=== PATIENT | male | born 1955 | race Caucasian/White ===

== ENCOUNTER 2019-09-23 01:10 | Outpatient (CLI) | payer OTHER, SELFPAY ==
--- NOTE | 2019-09-23 14:15 | DI.CT_ITS ---
EXAM: CT SINUS WO CLINICAL HISTORY: NASAL POLYPS J33.9, DEVIATED NASAL SEPTUM J34.2 TECHNIQUE: CT examination of the paranasal sinuses was performed according to the usual protocol wit hout contrast administration. COMPARISON: No exams were available for comparison FINDINGS: Visualized portions of the brain are unremarkable. The orbital briceno and orbital contents appear int act. Mastoid air cells are clear and temporal bone structures appear intact. Right maxillary antrum, ethmoid air cells, frontal sinus and sphenoid sinus are clear. There is nasa l septal deviation to the right. There is a space-occupying mass-like lesion occupying portions of t he left maxillary antrum, nasal cavity, ethmoid sinus, and sphenoid sinus on the left and extending s uperiorly into the left frontal sinus. There is osseous density material within this mass. Findings as described raise the possibility of an ossifying fibroma. I would note that there is no significa nt sinus expansion of the maxillary, frontal or sphenoid sinus on the left, but there is nasal septal deviation and probable expansion of ethmoid sinuses. No gross bony destruction identified. 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 Differential diagnosis wou ld include malignant tumor. Fungal infection less likely but possible. Please correlate clinically.
== END 2019-09-23 01:30 ==
PROVIDERS: PCP Nurse Practitioner Family; Visit Provider Otolaryngology Otolaryngology/Facial Plastic Surgery
DX: J33.9 Nasal polyp, unspecified (principal); J34.2 Deviated nasal septum; D16.4 Benign neoplasm of bones of skull and face
CPT/HCPCS: 70486

== ENCOUNTER 2020-02-16 00:32 | Outpatient (CLI) | payer OTHER, SELFPAY ==
[2020-02-16 15:29] LABS: CREATININE 0.95 mg/dL (0.70-1.30)
[2020-02-16] MEDS: Normal Saline Flush 10 ML SYR IVP (15:53)
[2020-02-16] MEDS: Gadoterate meglumine 20 ML VIAL IVP (15:54)
--- NOTE | 2020-02-16 16:16 | DI.MRI_ITS ---
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 TECHNIQUE: Multiplanar multisequence MRI was performed. COMPARISON: CT SINUS WO from 09/23/2019 FINDINGS: MR examination of the sinofacial region was performed using multi planer imaging including pre and po st contrast T1 fat sat multiplanar imaging. CT of 09/23/2019 showed a mass containing ossific material involving left frontal, ethmoid, maxillary and sphenoid sinuses and nasal cavity. 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 On today's examination, there has been resolution of involvement of left maxillary and left frontal s inuses. Left maxillary antrectomy noted. The mass has a cerebral form pattern consistent with the reported diagnosis of inverted papilloma. Gr oss measurements on today's examination are about 48 x 24 millimeters in axial projection, and 33 x 2 7 millimeters in coronal projection. No gross invasion of surrounding structures. Potential bony involvement is more accurately evaluated by CT. Mild midline shift of the nasal septum is noted posteriorly. The orbital contents appear in tact bilaterally. Mass lies adjacent to left optic nerve and cannot be differentiated with certainty . However no definite invasion seen. Similarly, the mass lies directly inferior to cribriform plate with no gross invasion. No intracranial mass lesion or enhancing lesion seen in visualized portions of the brain. [place] vasculature appears intact. No gross adenopathy in upper cervical region. IMPRESSION: Interval decrease in size of left sinonasal mass since CT of 09/23/2019, no gross abnormality identif ied in left frontal or left maxillary sinus at this time. No definite invasion of surrounding struc tures. DATA REPOSITORY:
== END 2020-02-16 00:52 ==
PROVIDERS: PCP Nurse Practitioner Family; Visit Provider Otolaryngology Otolaryngology/Facial Plastic Surgery
DX: D14.0 Benign neoplasm of middle ear, nasal cavity and accessory sinuses (principal); J34.89 Other specified disorders of nose and nasal sinuses; Z13.89 Encounter for screening for other disorder
CPT/HCPCS: 70543; 82565

== ENCOUNTER 2024-11-18 16:50 | Outpatient (REF) | payer MEDICARE, SELFPAY ==
--- NOTE | 2024-11-18 10:15 | SKI_PTH ---
PATIENT: Reg Salazar LOC: [facility] U#:[id number] AGE/SX: 69/M ROOM: RE11/18/[address]: Elias Barros DO : 1955 BED: DIS: 11/18/2024 SPEC #: [id number] RECD: 11/21/24 12:48 STATUS: GARY REQ #: [id number] SYLVESTER: 11/18/24 10:[address]: Elias Barros DEPT: Surgical Specimen RECD BY: Brielle Gill ENTERED: 11/21/24 12:48 SP TYPE: IVANA LOPEZ DR: Unknown,Unknown Tissues: 1 - SKIN BIOPSY(SHAVE/PUNCH) Procedures: SKIN LEVEL 4 Comments: [id number]
--- OUTSIDE RECORDS SUMMARY | 2024-11-18 16:53 | XMS_ITS | Encounter Summary ---
Author Organization [facility] Address [facility] [place] [address] Care Team Providers Care Piano Instructor Name Role Phone Susan Estrada MD Primary Care Provider Reason for Referral * Diagnostic Test (Routine) - Closed Specialty Diagnoses / Procedures Referred By Contac t Referred To Contact Cardiology Diagnoses S/P CABG (coronary artery bypass graft) Cardiomyopathy, ischemic Procedures Echocardiogram Transthoracic Benjy Jaramillo APRN [facility] [place] [address] [facility] [place] [address] Referral ID Status Reason Start Date Expiration Date V isits Requested Visits Authorized [id number] Closed Specialty Service Requested 12/28/2023 12/27/2024 1 1 Encounter Details Date Type Department Care Team (Late st Contact Info) Description 12/28/2023 9:20 AM EST Office Visit Cardiology at [address] [address] Benjy Jaramillo APRN [facility] [place] [address] S/P CABG (coronary artery bypass graft); Cardiomyopathy, ischemic; Coronary artery disease, unspecified vessel or lesion type, unspecified whether angina present, unspecified whether kake or transplanted heart; Hypertension, unspecified type Social History Tobacco Use Types Packs/Day Years Used Date Smoking Tobacco: Former Cigarettes Q uit: 11/30/1996 Smokeless Tobacco: Never Comments:smokes marij Alcohol Use Standard Drinks/Week Comments Not Currently 0 (1 standard drink = 0.6 oz pur e alcohol) seldom Sex and Gender Information Value Date Recorded Sex Assigned at Not on file Gender Identity Not on file Sexual Orientation Not on file documented as of this encounter Last Filed Vital Signs Vital Sign Reading Time Taken Comments Blood Pressure 131/60 12/28/2023 9:10 AM EST Pulse 72 12/28/2023 9:10 AM EST Temperature - - Respiratory Rate - - Oxygen Saturation 99% 12/28/2023 9:10 AM EST Inhaled Oxygen Concentration - - Weight 110.7 kg (244 lb) 12/28/2023 9:10 AM EST Height 170.2 cm (5' 7) 12/28/2023 9:10 AM EST Body Mass Index 38.22 12/28/2023 9:10 AM EST documented in this encounter Patient Instructions * Patient Instructions* Benjy Jaramillo APRN - 12/28/2023 9:20 AM EST 1. Ultrasound of your heart to follow up on function. I will call you with results. 2. No changes to your medications. 3. Follow up in 1 year, or sooner if concerns arise. If you have concerns at home, please call [phone] during normal business hours, otherwise [phone] for after hours and ask to speak to public stenographer hair or beauty salon assistant. documented in this encounter Progress Notes * Benjy Jaramillo APRN - 12/28/2023 9:20 AM EST Images from the original note were not included. [place] [id number] Subjective: Patient ID: Adrien Cheung is a 68 y.o. male patient of Susan Sanford MD with the following cardiovascular issues: ASCVD, s/p CABG 01/2022 (JONES-LAD, SVG-Diag and OM, SVG-RCA) 2. Post-op afib, completed 1 month of amio 3. Hx right leg DVT, on chronic apixaban Other PMH notable for: IDDM Suspected LEANDER Rectal cancer s/p colostomy (2008) Social hx: Lives in [place], [place] with girlfriend. Retired, previously worked at [email or web address]. Last seen: Dr. Wheatley 11/2022 at which time Losartan was discussed as new addition to GDMT for his ICM. INTERIM: No ED visits or hospitalizations. TODAY: Presents with girlfriend Charlette. PCP visit 1 month ago, labs done including lipids and he was told results were all fine. Active at home carrying wood, snow-blowing. No symptoms of chest pain, shortness of breath. Weight down 12 lbs from a year ago which he is pleased about. Of note, I completed med rec today during visit and it does not appear he ever started Losartan after last year's follow up. Medications: Current Outpatient Medications Medication Sig Note Dispense Refill furosemide (Lasix) 20 mg tablet Take 1 tablet by mouth daily. 90 tablet 3 metFORMIN (Glucophage) 500 mg Tablet Take 1 tablet by mouth 2 times daily (with meals). 60 tablet 12 fluticasone propionate (Flonase) 50 mcg/actuation [place], Suspension as needed. metoprolol tartrate (Lopressor) 50 mg Tablet Take 1 tablet by mouth 2 times daily. 180 tablet 3 acetaminophen (Tylenol) 500 mg Tablet Take 2 tablets by mouth every 6 hours as needed for Pain. nitroGLYcerin (Nitrostat) 0.4 mg Tablet, Sublingual Place 0.4 mg under the tongue as needed. aspirin 81 mg Tablet, Chewable Take 81 mg by mouth daily. ONE TOUCH DELICA 33 gauge Misc 11/18/2017: Received from: External Pharmacy [facility] ULTRA TEST Strip 11/18/2017: Received from: External Pharmacy apixaban (ELIQUIS) 5 mg Tablet Take 1 tablet by mouth 2 times daily. 30 tablet 2 atorvastatin (LIPITOR) 40 mg tablet Take 40 mg by mouth daily. glipiZIDE (GLUCOTROL) 10 mg 24 hr tablet Take 10 mg by mouth 2 times daily. multivitamin (THERAGRAN) tablet Take 1 tablet by mouth daily. oxyCODONE (Roxicodone) 5 mg Tablet Take 1 tablet by mouth every 4 hours as needed for Pain. (Patient not taking: Reported on 03/04/2022) 12 tablet 0 ROS: Constitutional: - fatigue, - fever, - chills Respiratory: - shortness of breath, - cough, - apnea, - wheezing Cardiovascular: - chest pain, - palpitations, - unusual rates Gastrointestinal: - nausea, - vomiting, - abdominal pain, - diarrhea Neurological: - lightheadedness, - dizziness, - syncope, - weakness Psychiatric: - anxious Objective: Vitals: Vitals: 12/28/23 0910 BP: 131/60 BP Location (NB): Left arm Patient Position: Sitting BP Cuff Sizes: Adult (25-34 cm) Pulse: 72 SpO2: 99% Weight: 110.7 kg (244 lb) Height: 170.2 cm (5' 7) Wt Readings from Last 3 Encounters: 12/28/23 110.7 kg (244 lb) 12/05/22 116.1 kg (256 lb) 06/05/22 118.5 kg (261 lb 3.2 oz) Physical Exam: General- No acute distress, sitting comfortably in exam room chair HEENT- Head atraumatic, normocephalic Skin- Warm, dry, and intact Cardiovascular- S1/S2 regular rate and rhythm. No murmur, rub or gallop Lungs- Clear to auscultation bilaterally Extremities- Pulses equal bilaterally. Trace edema noted to RLE (chronic) Neuro- A&Ox3 Diagnostics: ECG in office today shows NSR; incomplete LBBB (similar compared to prior). Cardiac Studies Date Study Major Findings 01/2022 TTE LV moderately dilated, LVEF 35%, rWMAs including akinesis of mid anteroseptum and apex, other segments hypokinetic. No significant valve disease. 11/2021 [facility] LM with distal 80% stenosis. LAD with ostial 70% stenosis, mid LAD with single discrete total occlusion, distal flow via kake and bridging collaterals, severe diffuse disease of distal LAD. LCX with osital 50% stenosis, total occlusion of proximal OM1 w/ distal flow via collaterals from LAD. RCA with total occlusion of proximal segment, distal flow via kake vessel, collaterals fromLAD and LCx. Labs: Lab Results Component Value Date WBC 14.7 (H) 01/30/2022 HGB 11.2 (L) 01/30/2022 HCT 33.0 (L) 01/30/2022 MCV 92.2 01/30/2022 PLATELET 220 01/30/2022 No results for input(s): NA, K, CL, CO2, BUN, CREATININE, GLUCOSE in the last 168 hours. Lab Results Component Value Date INR 1.3 01/27/2022 Assessment and Plan: 68 y.o. with cardiac medical history significant for ASCVD s/p 4v CABG (01/2022), ICM with last OSQN51-44%, and right leg DVT on chronic DOAC. Last seen by Dr. Wheatley last year at which time he was continued on Metoprolol as GDMT for his reduced LVEF. He is doing well from a symptom standpoint and Icongratulated him on his weight loss efforts. He has not had a repeat echo since his CABG so we will coordinate that to be scheduled. Otherwise we will plan to see him in a year for routine follow up. Plan: Problem List Items Addressed This Visit CAD (coronary artery disease) Continue aspirin 81 mg, may consider stopping given background Eliquis use. Metoprolol tartrate 50 mg BID Continue Lipitor 40 mg QD. SL nitro for as needed use. Cardiomyopathy, ischemic GDMT: metoprolol tartrate 50 mg BID. Discussed starting ARB at last visit but it does not appear that he ever started taking this. Furosemide 20 mg QD. Labs recently checked by PCP so I will not order today. Repeat echo ordered. Relevant Orders Echocardiogram Transthoracic Hypertension Well controlled today. Continue Metoprolol tartrate 50 mg BID. Other Visit Diagnoses S/P CABG (coronary artery bypass graft) Relevant Orders EKG 12 Lead (Completed) Echocardiogram Transthoracic 20 minutes spent reviewing prior records, [id number] consultation with patient, and documentation. Benjy Jaramillo APRN Cardiovascular Medicine 12/28/2023 Patient Instructions 1. Ultrasound of your heart to follow up on function. I will call you with results. 2. No changes to your medications. 3. Follow up in 1 year, or sooner if concerns arise. If you have concerns at home, please call [phone] during normal business hours, otherwise [phone] for after hours and ask to speak to public stenographer hair or beauty salon assistant. documented in this encounter Miscellaneous Notes * Assessment & Plan Note - Benjy Jaramillo APRN - 12/28/2023 9:52 AM EST Associated Problem(s): Cardiomyopathy, ischemic GDMT: metoprolol tartrate 50 mg BID. Discussed starting ARB at last visit but it does not appear that he ever started taking this. Furosemide 20 mg QD. Labs recently checked by PCP so I will not order today. Repeat echo ordered. * Assessment & Plan Note - Benjy Jaramillo APRN - 12/28/2023 9:48 AM EST Associated Problem(s): Hypertension Well controlled today. Continue Metoprolol tartrate 50 mg BID. * Assessment & Plan Note - Benjy Jaramillo APRN - 12/28/2023 9:46 AM EST Associated Problem(s): CAD (coronary artery disease) Continue aspirin 81 mg, may consider stopping given background Eliquis use. Metoprolol tartrate 50 mg BID Continue Lipitor 40 mg QD. SL nitro for as needed use. documented in this encounter Plan of Treatment Not on file documented as of this encounter Procedures Procedure Name Priority Date/Time Associated Diagnosis Comments EKG 12-LEAD Routine 12/28/2023 9:26 AM EST S/P CABG (coronary artery bypass graft) documented in this encounter Results * ECHO COMPLETE (03/28/2024 8:28 AM EDT) EF 45 HEARTLAB SYSTEM Anatomical Region Laterality Modality Cardiac Other 03/28/2024 7:37 AM EDT Narrative 03/28/2024 8:59 AM EDT [address] [place] [id number] ? Echocardiogram Report Name: ADRIEN CHEUNG ? Study Date: 03/28/2024 07:37 AMBP: 106/55 mmHg ? Patient Location: 4A ? HR: 69 : 1955 ? Height: 170 cm ? Account: [id number] Age: 68 yrs ? Weight: 111 kg Gender: Male ?BSA: 2.2 m2 Ordering Physician: BENJY JARAMILLO Referring Physician: BENJY JARAMILLO Performed By: Abe Corbin RDCS Reason For Study: S/P CABG 3 y.a., ischemic cardiomyopathy Exam Location: [facility]. Interpretation Summary Technically difficult study with only fair endocardial resolution (consider echo contrast on future studies). Within the limitations of the study, left ventricular function is mildly reduced with an estimated LVEF 40-45% with hypokinesis at the apex and mid anteroseptum and akinesis at the base of the inferior wall. Normal LA size. No significant valvular abnormalities. Other details as below. As compared to the prior echo report from 02/11/2022, the global LVEF may be milldy improved with similar regional wall motion abnormalities. Procedure Complete-30816. Satisfactory quality. There is normal sinus rhythm. Left Ventricle Left ventricle is of normal size. Wall thickness is mildly increased. The left ventricular ejection fraction is 56% by Navarro's biplane. Global longitudinal strain is measured at -11.0 %. (Mobile Card). Left ventricular ejection fraction is estimated visually at 45%. There are segmental wall motion abnormalities. Right Ventricle The right ventricle is of normal size. Right ventricular systolic function is normal. Left Atrium The left atrium is normal. No abnormality of the interatrial septum is identified. Right Atrium The right atrium is normal. Aortic Valve The aortic valve is tricuspid. There is no aortic stenosis. There is no aortic regurgitation. Mitral Valve The mitral valve is structurally normal. There is posterior mitral annular calcification. There is trace mitral regurgitation. Tricuspid Valve The tricuspid valve is structurally and functionally normal. There is trace tricuspid regurgitation. Pulmonic Valve The pulmonic valve appears to be structurally and functionally normal. Great Arteries The aortic root is of normal size. No abnormalities are identified. The maximum diameter of the proximal ascending aorta is 3.6 cm. No abnormalities of the pulmonary artery are identified. Venous Inferior vena cava is normal in size. Inferior vena cava collapse greater than 50% with respiration. Pericardium/Pleural The pericardium appears normal. Hemodynamics The peak right ventricular systolic pressure is 24 mmHg. The estimated right atrial pressure is 3mmHg. Left ventricular diastolic function is normal. Left ventricular filling pressure is normal. Ejection Fraction ?2D Measurements ? Volumes EF(MOD-bp): 55.7 % ?IVSd: 1.2 cm ? LAV(MOD- bp) Indexed: ?LVIDd: 4.9 cm ?LVIDs: 3.2 cm ?30.9 ml/m2 ?LVPWd: 1.2 cm ?RA A4Cs_phl: 15.3 cm2 ? EDV(MOD-bp) Indexed: ?RWT: 0.50 {ratio} ?LV mass(C)d: 219.1 grams ? 69.6 ml/m2 ?LV mass(C)dI: 99.5 grams/m2 ?ESV(MOD- bp) Indexed: ?Ao root diam: 3.3 cm ? 30.8 ml/m2 ?Ao root diam index: 1.5 ?SV(LVOT): 69.1 ml ?asc Aorta Diam: 3.6 cm ? LV Stroke Volume: 69.0 ml ?LVOT diam: 2.0 cm ? SI(LVOT): 31.4 ml/m2 Doppler LV V1 VTI: 22.5 cm LVOT max Velocity: 100.0 cm/sec Ao Max: 145.9 cm/sec Ao valve max: 8.5 mmHg MV E max maksim: 91.1 cm/sec MV A max maksim: 111.7 cm/sec MV E/A: 0.82 MV dec time: 0.22 sec Lat Peak E' Maksim: 9.4 cm/sec E/ e' (lat): 9.7 Med Peak E' Maksim: 8.0 cm/sec E/e' (med): 11.3 E/e' Average: 10.5 TR max maksim: 228.0 cm/sec I ?WMSI = 1.50 ? % Normal = 56 ?Segments ??Size X - Cannot ?? 1 - Normal ?? 2 - ? 3 - Akinetic 4 - ?1-2 ? small Interpret ? Hypokinetic ?Dyskinetic ?? 3-5 ? moderate 5 - ? 6-14 ?large Aneurysmal ?15-16 ?? diffuse Procedure Note Yoandy Wheatley MD - 03/28/2024 [address] [place] [address] Echocardiogram Report Name: ADRIEN CHEUNG Study Date: 407:37 AMBP: 106/55 mmHg Patient Location: 4A HR: 69 : 1955 Height: 170 cm Account: [id number] Age: 68 yrs Weight: 111 kg Gender: Male BSA: 2.2 m2 Ordering Physician: BENJY JARAMILLO Referring Physician: BENJY JARAMILLO Performed By: Abe Corbin RDCS Reason For Study: S/P CABG 3 y.a., ischemic cardiomyopathy Exam Location: [facility]. Interpretation Summary Technically difficult study with only fair endocardial resolution(consider echo contrast on future studies). Within the limitations of the study, left ventricular function is mildlyreduced with an estimated LVEF 40-45% with hypokinesis at the apex and midanteroseptum and akinesis at the base of the inferior wall. Normal LA size. No significant valvular abnormalities. Other details as below. As compared to the prior echo report from 02/11/2022, the global LVEF maybe milldy improved with similar regional wall motion abnormalities. Procedure Complete-37127. Satisfactory quality. There is normal sinus rhythm. Left Ventricle Left ventricle is of normal size. Wall thickness is mildly increased. Theleft ventricular ejection fraction is 56% by Navarro's biplane. Globallongitudinal strain is measured at -11.0 %. (GE). Left ventricular ejection fractionis estimated visually at 45%. There are segmental wall motionabnormalities. Right Ventricle The right ventricle is of normal size. Right ventricular systolic functionis normal. Left Atrium The left atrium is normal. No abnormality of the interatrial septum isidentified. Right Atrium The right atrium is normal. Aortic Valve The aortic valve is tricuspid. There is no aortic stenosis. There is noaortic regurgitation. Mitral Valve The mitral valve is structurally normal. There is posterior mitralannular calcification. There is trace mitral regurgitation. Tricuspid Valve The tricuspid valve is structurally and functionally normal. There istrace tricuspid regurgitation. Pulmonic Valve The pulmonic valve appears to be structurally and functionally normal. Great Arteries The aortic root is of normal size. No abnormalities are identified. Themaximum diameter of the proximal ascending aorta is 3.6 cm. No abnormalities ofthe pulmonary artery are identified. Venous Inferior vena cava is normal in size. Inferior vena cava collapse greaterthan 50% with respiration. Pericardium/Pleural The pericardium appears normal. Hemodynamics The peak right ventricular systolic pressure is 24 mmHg. The estimatedright atrial pressure is 3mmHg. Left ventricular diastolic function is normal.Left ventricular filling pressure is normal. Ejection Fraction 2D Measurements Volumes EF(MOD-bp): 55.7 % IVSd: 1.2 cm LAV(MOD-bp)Indexed: LVIDd: 4.9 cm LVIDs: 3.2 cm 30.9 ml/m2 LVPWd: 1.2 cm RA A4Cs_phl: 15.3cm2 EDV(MOD-bp)Indexed: RWT: 0.50 {ratio} LV mass(C)d: 219.1 grams 69.6 ml/m2 LV mass(C)dI: 99.5 grams/m2 ESV(MOD-bp)Indexed: Ao root diam: 3.3 cm 30.8 ml/m2 Ao root diam index: 1.5 SV(LVOT): 69.1ml asc Aorta Diam: 3.6 cm LV Stroke Volume:69.0 ml LVOT diam: 2.0 cm SI(LVOT): 31.4ml/m2 Doppler LV V1 VTI: 22.5 cm LVOT max Velocity: 100.0 cm/sec Ao Max: 145.9 cm/sec Ao valve max: 8.5 mmHg MV E max maksim: 91.1 cm/sec MV A max maksim: 111.7 cm/sec MV E/A: 0.82 MV dec time: 0.22 sec Lat Peak E' Maksim: 9.4 cm/sec E/ e' (lat): 9.7 Med Peak E' Maksim: 8.0 cm/sec E/e' (med): 11.3 E/e' Average: 10.5 TR max maksim: 228.0 cm/sec I WMSI = 1.50 % Normal = 56 SegmentsSize X - Cannot 1 - Normal 2 - 3 - Akinetic 4 - 1-2small Interpret Hypokinetic Dyskinetic 3-5moderate 5 - 6-14large Aneurysmal 15-16diffuse Benjy Jaramillo APRN ECHO ORDERABLES * EKG 12 Lead (12/28/2023 9:26 AM EST) Ventricular rate 75 BPM MUSE SYSTEM Atrial Rate 75 BPM MUSE SYSTEM P-R Interval 192 ms MUSE SYSTEM QRS Duration 110 ms MUSE SYSTEM Q-T Interval 400 ms MUSE SYSTEM QTC Calculated (Bezet) 446 ms MUSE SYSTEM Calculated R Voca 81 degrees MUSE SYSTEM Calculated T Voca -146 degrees MUSE SYSTEM INTERPRETATION Normal sinus rhythm Incomplete left bundle block Nonspecific T wave abnormality Abnormal ECG When compared with ECG of 05-DEC-2022 15:06, No significant change was found Confirmed by MD ZHEN, LISS ([id number]) on 12/28/2023 12:59:23 PM MUSE SYSTEM 12/28/2023 9:26 AM EST 12/28/2023 12:59 PM EST Benjy Jaramillo APRN ECG ORDERABLES MUSE SYSTEM documented in this encounter Visit Diagnoses Diagnosis S/P CABG (coronary artery bypass graft) Postsurgical aortocoronary bypass status Cardiomyopathy, ischemic Other specified forms of chronic ischemic heart disease Coronary artery disease, unspecified vessel or lesion type, unspecified whether angina present, unspecified whether kake or transplanted heart Hypertension, unspecified type S/P CABG (coronary artery bypass graft) Postsurgical aortocoronary bypass status Cardiomyopathy, ischemic Other specified forms of chronic ischemic heart disease documented in this encounter Care Teams Piano Instructor Relationship Specialty Start Date End Date Susan Estrada MD [address] [place] [address] PCP - General 04/17/22 documented as of this encounter
--- OUTSIDE RECORDS SUMMARY | 2024-11-18 16:53 | XMS_ITS | Clinical Summary ---
Author Organization [facility] Address [facility] [place] [address] Care Team Providers Care Plant Anatomy Teacher Name Role Phone Susan Estrada MD Primary Care Provider Allergies Active Allergy Reactions Criticality Noted Date Comments Penicillins Rash Medium PAT Penicillin Allergy Risk Assessment 01/07/2022: Low risk penicillin allergy. OK to receive full dose of cefazolin, cefuroxime, or any 3rd or 4th+ generation cephalosporin. Medications Medication Sig Dispensed Refills Start Date End Date Status atorvastatin (LIPITOR) 40 mg tablet Take 40 mg by mouth daily. Active glipiZIDE (GLUCOTROL) 10 mg 24 hr tablet Take 10 mg by mouth 2 times daily. Active multivitamin (THERAGRAN) tablet Take 1 tablet by mouth daily. Active apixaban (ELIQUIS) 5 mg Tablet Take 1 tablet by mouth 2 times daily. 30 tablet 2 11/04/2017 Active ONE TOUCH DELICA 33 gauge Misc 11/10/2017 Active ONETOUCH ULTRA TEST Strip 11/10/2017 Active aspirin 81 mg Tablet, Chewable Take 81 mg by mouth daily. Active nitroGLYcerin (Nitrostat) 0.4 mg Tablet, Sublingual Place 0.4 mg under the tongue as needed. 01/18/2022 Active metoprolol tartrate (Lopressor) 50 mg Tablet Take 1 tablet by mouth 2 times daily. 180 tablet 3 01/31/2022 Active acetaminophen (Tylenol) 500 mg Tablet Take 2 tablets by mouth every 6 hours as needed for Pain. 01/31/2022 Active fluticasone propionate (Flonase) 50 mcg/actuation Howard, Suspension as needed. 01/07/2022 Active oxyCODONE (Roxicodone) 5 mg Tablet Take 1 tablet by mouth every 4 hours as needed for Pain. 12 tablet 02/11/2022 Active Additional Information Patient not taking.Reported on 12/05/2022 metFORMIN (Glucophage) 500 mg Tablet Take 1 tablet by mouth 2 times daily (with meals). 60 tablet 12 12/05/2022 Active furosemide (Lasix) 20 mg tabletIndications: S/P CABG (coronary artery bypass graft) Take 1 tablet by mouth daily. 90 tablet 3 12/21/2023 Active Active Problems Problem Noted Date Diagnosed Date Cardiomyopathy, ischemic 12/28/2023 Assessment & Plan (12/28/2023 9:52 AM EST): GDMT: metoprolol tartrate 50 mg BID. Discussed starting ARB at last visit but it does not appear that he ever started taking this. Furosemide 20 mg QD. Labs recently checked by PCP so I will not order today. Repeat echo ordered. CAD (coronary artery disease) 01/08/2022 Assessment & Plan (12/28/2023 9:46 AM EST): Continue aspirin 81 mg, may consider stopping given background Eliquis use. Metoprolol tartrate 50 mg BID Continue Lipitor 40 mg QD. SL nitro for as needed use. Chest pain, unspecified 12/19/2021 Unstable angina 12/19/2021 Attention to colostomy 11/18/2017 Acute kidney injury 10/31/2017 SBO (small bowel obstruction) 10/27/2017 Ostomy nurse consultation 10/06/2017 Partial small bowel obstruction 08/24/2017 Neurogenic bladder 05/09/[address] 06/14/2013 Hypertension 05/11/2013 Assessment & Plan (12/28/2023 9:48 AM EST): Well controlled today. Continue Metoprolol tartrate 50 mg BID. 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 Relation Status Comments Father renal failure r/ t diabetes Social History Tobacco Use Types Packs/Day Years Used Date Smoking Tobacco: Former Cigarettes Q uit: 11/30/1996 Smokeless Tobacco: Never Comments:smokes marij Alcohol Use Standard Drinks/Week Comments Not Currently 0 (1 standard drink = 0.6 oz pur e alcohol) seldom Sex and Gender Information Value Date Recorded Sex Assigned at Not on file Gender Identity Not on file Sexual Orientation Not on file Last Filed Vital Signs Vital Sign Reading Time Taken Comments Blood Pressure 131/60 12/28/2023 9:10 AM EST Pulse 72 12/28/2023 9:10 AM EST Temperature 37 ??C (98.6 ??F) 01/31/2022 12:00 PM EST Respiratory Rate 16 12/05/2022 2:56 PM EST Oxygen Saturation 99% 12/28/2023 9:10 AM EST Inhaled Oxygen Concentration - - Weight 110.7 kg (244 lb) 12/28/2023 9:10 AM EST Height 170.2 cm (5' 7) 12/28/2023 9:10 AM EST Body Mass Index 38.22 12/28/2023 9:10 AM EST Plan of Treatment Health Maintenance Due Date Last Done Comments CT Colonography 1955 FIT DNA 1955 FIT 1955 Sigmoidoscopy 1955 Pneumoccocal Vaccine: 65+ (1 of 2 - PCV) 1962 DM Opthalmology Exam 1966 Hepatitis C Screening 1974 Tetanus/Diphtheria/Pertussis Vaccines (1 - Tdap) 1975 Zoster vaccine (1 of 2) 2006 DM Hemoglobin A1c 05/17/2015 02/14/2015, , 05/12/2013 RSV Vaccine (1 - Risk 60-74 years 1-dose series) 2016 AAA Screen 2021 DM Creatinine yearly 01/30/2023 01/30/2022, 01/30/2022, 01/28/2022, Additional history exists Covid-19 Vaccine ( - 2023-2 5 season) 2024 10/03/2021, 04/01/2021, 03/04/2021 Influenza (Flu) vaccine (1 o f 1 - Influenza standard series) 07/31/2024 11/05/2017 Colonoscopy 03/23/2025 03/23/2015, 03/23/2015 Colorectal Cancer Screening 03/23/2025 Sigmoidoscopy (10 year) with FIT yearly 03/23/2025 03/23/2015, 03/23/2015 Medical Devices Implanted Type Area Rehabilitation Therapist Device Identifier Shelf Expiration Date Model / Serial / Lot Mesh,Bio,Strt tce,Frm,20x20 cm ([id number]) (Autoreq) - [id number] Implanted:Qty : 1 on 10/29/2017 by Theo Washington MD at [facility] IMPLANTS N/A: Abdomen [employer] - [id number] / NA / [id number] Cable Sternal Tapered Blunt Needle [employer] [place] ([id number]) - [id number] Implanted:Qty : 4 on 01/27/2022 by Levi Hinds MD at [facility] IMPLANTS N/A: Sternum [employer] - RTI SURGIC 08/27/2026 [id number] / / [id number] Procedures Procedure Name Priority Date/Time Associated Diagnosis Comments BASIC METABOLIC PANEL Routine 01/30/2022 4:10 AM EST COLONOSCOPY Routine 03/23/2015 11:57 AM EDT HEMOGLOBIN A1C Routine 02/14/2015 1:16 PM EDT from Last 3 Months or Most Recently Relevant to Health Maintenance Results * (ABNORMAL) Basic Metabolic Panel (non-fasting) (01/30/2022 4:10 AM EST) Glucose 151 65 - 199 mg/dL [facility] Comment:Diabetes: >=200 mg/d L plus symptoms Blood Urea Nitrogen 9(L) 10 - 20 mg/dL [facility] Creatinine 0.66(L) 0.80 - 1.50 mg/dL [facility] Sodium 139 135 - 145 mmol/L [facility] Potassium Not Perf 3.5 - 5.0 [facility] Comment: Duplicate order Please note: ??Patients with WBC >100,000 may have falsely elevated Potassium levels. ??For accurate Potassium quantification in these patients send serum separator tube (gold top) for subsequent determinations. ??Contact the Clinical Chemistry Laboratory if there are any questions. Chloride 100 98 - 107 mmol/L [facility] Carbon Dioxide Not Perf 22 - 31 [facility] Comment:Add-on request. Samp le too old to perform test. Anion Gap Not Calculated 5 - 15 mmol/L [facility] Comment:Add-on request. Samp le too old to perform test. Calcium 8.3(L) 8.5 - 10.5 mg/dL [facility] Comment:result rechecked- vh Est Glomerular Filtration Rate 101 >=60 mL/min/1 .73 m?? [facility] Comment: This patient? s estimated glomerular filtration rate (eGFR) is between 101 mL/min/1.73 m2 (patients with less muscle mass per kg body weight) and 118 mL/min/1.73 m2 (patients with more muscle mass per kg body weight) as determined by the CKD-EPI equation. Assessment of eGFR is not appropriate when creatinine concentrations are rapidly changing. For clinical decisions where creatinine clearance will affect therapy, a 24-hour urine creatinine clearance may be advised. Assignment of CKD stage 1 - 5 for patients with an eGFR near the transition point between stages may be based on clinical assessment of muscle mass and symptoms in addition to eGFR. Blood Venous Draw / Unknown 01/30/2022 4:10 AM EST 01/30/2022 4:18 AM EST Narrative Resulting Agency Comment Spec In Lab Olvin BADILLO CHEMISTRY ORDERABLES [facility] [place] [address] * COLONOSCOPY (03/23/2015 11:57 AM EDT) COLONOSCOPY [facility] Endoscopy Patient Name: Reg Salazar ? Procedure Date: 03/23/2015 11:57 AM ? Date of : 1955 ? Age: 59 ? Order #: [id number] ? Procedure: ? Colonoscopy Indications: ? High risk colon cancer surveillance: ? Personal history of rectal cancer Providers: ? Bobby Hills MD, Waldo Jaramillo, ? RN, Da Christie RN Referring MD: ?Randa Rosas MD Medicines: ? Midazolam 3 mg IV, Fentanyl 100 ? micrograms IV Complications: ? No immediate complications. Estimated ? blood loss: None. Procedure: ? Pre-Anesthesia Assessment: ? - Prior to the procedure, a History ? and Physical was performed, and ? patient medications, allergies and ? sensitivities were reviewed. The ? patient's tolerance of previous ? anesthesia was reviewed. ? - The risks and benefits of the ? procedure and the sedation options ? and risks were discussed with the ? patient. All questions were answered ? and informed consent was obtained. ? - Patient identification and proposed ? procedure were verified prior to the ? procedure by the physician and the ? nurse. The procedure was verified in ? the procedure room. ? - Pre-procedure physical examination ? revealed no contraindications to ? sedation. ? - The anesthesia plan was to use ? moderate sedation/analgesia ? (conscious sedation). ? - Immediately prior to administration ? of medications, the patient was ? re-assessed for adequacy to receive ? sedatives. ? - Sedation was administered by an ? endoscopy nurse. The sedation level ? attained was moderate. ? - The heart rate, respiratory rate, ? oxygen saturations, blood pressure, ? adequacy of pulmonary ventilation, ? and response to care were monitored ? throughout the procedure. ? - The physical status of the patient ? was re-assessed after the procedure. ? The procedure, indications, benefits, ? risks and alternatives were explained ? to the patient. Specifically ? discussed were potential ? complications including, but not ? limited to, bleeding, perforation, ? infection, missing a cancer, and ? adverse medication reactions. The ? patient was placed in the left ? lateral decubitus position, and a ? digital rectal exam was performed. ? The Colonoscope was inserted in the ? descending colostomy and under direct ? visualization, advanced to the cecum, ? identified by appendiceal orifice and ? ileocecal valve. Careful inspection ? was made as the colonoscope was ? withdrawn. The colonoscopy was ? performed without difficulty. The ? patient tolerated the procedure well. ? The quality of the bowel preparation ? was adequate. ? Findings: ? The entire examined colon appeared normal. ? Impression: ?- The entire examined colon is normal. Recommendation: ?- Repeat colonoscopy in 2 years for ? surveillance WITH GOLYTELY PREP. ? - Return to my office as previously ? scheduled. ? Procedure Code(s): ?? --- Professional --- ? 64396, Colonoscopy through stoma; ? diagnostic, including collection of ? specimen(s) by brushing or washing, ? when performed (separate procedure) Diagnosis Code(s): ?? --- Professional --- ? V10.06, Personal history of malignant ? neoplasm of rectum, rectosigmoid ? junction, and anus ? --- Technical --- ? V10.06, Personal history of malignant ? neoplasm of rectum, rectosigmoid ? junction, and anus CPT copyright 2014 [employer]. All rights reserved. The codes documented in this report are preliminary and upon medical asst review may be revised to meet current compliance requirements. Bobby Hills MD 03/23/2015 12:25 PM Number of Addenda: 0 Note Initiated On: 03/23/2015 11:57 AM PROVATION 03/23/2015 11:5 7 AM EDT Randa Rosas APRN GENERAL SURGICAL O RDERABLES PROVATION * (ABNORMAL) Hemoglobin A1c (02/14/2015 1:16 PM EDT) Hemoglobin A1c 7.1(H) 4.3 - 5.6 % [facility] Comment: Reference Range: 4.3 - 5.6% 5.7 - 6.4% - Increased Risk of Developing Diabetes Mellitus >= 6.5% - Consistent with diagnosis of Diabetes Mellitus In the absence of hyperglycemia (i.e. plasma glucose > 200 mg/dL) or classic symptoms of hyperglycemia a repeat measurement of HbA1c should be performed on a separate sample to confirm the diagnosis. Diagnosis and Classification of Diabetes Mellitus, Diabetes Care 2013; 36: Suppl. 1, Q27-54 Estimated Average Glucose 157 mg/dL [facility] Comment: eAG equivalents for HbA1c percentages: HbA1c(%) ?eAG(mg/dL) 6.0 ?126 6.5 ?140 7.0 ?154 7.5 ?169 8.0 ?183 8.5 ?197 9.0 ?212 9.5 ?226 10.0 ? 240 Limitations: The eAG calculation has not been validated on women, individuals below 18 years old and above 70 years old, and individuals with hemoglobinopathies. Additional resources are available on the ADA website: http://tinyurl.com/DHMCadacalc Jesse CARBAJAL, Robinson J, Mil R, et al. ??Translating the A1C assay into estimated average glucose values. ??Diabetes Care 2008:31(8):1373-5477. Blood specimen (specimen) Venous Draw / Unknown 02/14/2015 1:16 PM EDT 02/14/2015 1:32 PM EDT Narrative Resulting Agency Comment Spec In Lab Randa Rosas APRN CHEMISTRY ORDERABL ES ROBERTA SANTIAGO from Last 3 Months or Most Recently Relevant to Health Maintenance Advance Directives Documents on File Type Date Recorded Patient Tray Checker Expl anation Advance Directives and Livin g Will 05/12/2013 1:38 PM * Attempt Cardiopulmonary Resuscitation - Inpatient (Latest Code Status on File) Date Activated Date Inactivated Comments 01/27/2022 12:57 PM 01/31/2022 3:16 PM Question Answer Comments Code Status decision made by: Patient * Full Code Date Activated Date Inactivated Comments 01/27/2022 7:07 AM 01/27/2022 12:57 PM Question Answer Comments Does patient have capacity to make decision: Yes * Attempt Cardiopulmonary Resuscitation - Inpatient Date Activated Date Inactivated Comments 12/30/2021 11:07 AM 12/30/2021 4:07 PM Question Answer Comments Code Status decision made by: Patient * Full Code Date Activated Date Inactivated Comments 10/27/2017 2:27 PM 11/05/2017 4:59 PM Question Answer Comments Does patient have capacity to make decision: Yes * Full Code Date Activated Date Inactivated Comments 08/24/2017 4:35 PM 09/01/2017 1:41 PM Question Answer Comments Does patient have capacity to make decision: Yes Care Teams Plant Anatomy Teacher Relationship Specialty Start Date End Date Susan Estrada MD [address] [place] [address] PCP - General 04/17/22
--- OUTSIDE RECORDS SUMMARY | 2024-11-18 16:53 | XMS_ITS | Encounter Summary ---
Author Organization [facility] Address [facility] [place] [address] Care Team Providers Care Sportspersons Name Role Phone Susan Estrada MD Primary Care Provider Encounter Details Date Type Department Care Team (Late st Contact Info) Description 04/01/2024 Telephone Cardiology at [address] [phone] Elaine Jaramillo APRN [facility] [place] [address] Social History Tobacco Use Types Packs/Day Years [...] on file documented as of this encounter Miscellaneous Notes * Telephone Encounter - Elaine Jaramillo APRN - 04/01/2024 10:23 AM EDT Images from the original note were not included. 04/01/2024 10:23 AM Called Reg to discuss recent echo results. No answer on home # listed, left VM for return call. Elaine Jaramillo APRN Cardiovascular Medicine 04/01/2024 documented in this encounter Plan of Treatment Not on file documented as of this encounter Visit Diagnoses Not on filedocumented in this encounter Care Teams Sportspersons Relationship Specialty Start Date End Date Susan Estrada MD [address] [place] [address] PCP - General 04/17/22 documented as of this encounter
--- OUTSIDE RECORDS SUMMARY | 2024-11-18 16:53 | XMS_ITS | Encounter Summary ---
Author Organization [facility] Address [facility] [place] [address] Care Team Providers Care Claims Adjustor Name Role Phone Randa Rosas APRN Primary Care Provider +1- [phone] Encounter Details Date Type Department Care Team (Late st Contact Info) Description 03/04/2022 11:10 AM EDT Office Visit Cardiac Surgery at [facility] [place] [id number] Levi Hnids MD Coronary artery disease, unspecified vessel or lesion type, unspecified whether angina present, unspecified whether emmonak or transplanted heart Social History Tobacco Use Types Packs/Day Years [...] Sign Reading Time Taken Comments Blood Pressure 120/69 03/04/2022 11:04 AM EDT Pulse 65 03/04/2022 11:04 AM EDT Temperature - - Respiratory Rate - - Oxygen Saturation 98% 03/04/2022 11: 04 AM EDT Inhaled Oxygen Concentration - - Weight 116.4 kg (256 lb 11.2 oz) 2021 11:04 AM EDT Height 170.2 cm (5' 7) 03/04/2022 11:0 4 AM EDT Reported Body Mass Index 40.2 03/04/2022 11:04 AM EDT documented in this encounter Progress Notes * eLvi Hinds MD - 03/04/2022 11:10 AM EDT Post-OP Note: Randa Alison, PIZZAM[address] [place] [address] RANDA ROSAS Mr. Salazar returns to clinic following his CABG surgery. Since discharge, he has been doing well. Has been having no pain. He is eating well, urinating, and moving his bowels without problems. He has had no fevers, chills, or other problems with the wounds. He has been reasonably active. Problem List Patient Active Problem List Diagnosis ??? CAD (coronary artery disease) ??? Chest pain, unspecified ??? Unstable angina ??? Attention to colostomy ??? Acute kidney injury ??? SBO (small bowel obstruction) ??? Ostomy nurse consultation ??? Partial small bowel obstruction ??? Neurogenic bladder ??? Colostomy in place ??? Hypertension ??? Snoring ??? Diabetes mellitus ??? Obesity (BMI 35.0-39.9 without comorbidity) ??? Rectal cancer Past Medical History Past Medical History: Diagnosis Date ??? Angina pectoris ??? Coronary artery disease needs CABG X 4 ??? Diabetes ??? DM (diabetes mellitus) type 2-poorly controlled per patient ??? ED (erectile dysfunction) ??? Gout ??? HTN (hypertension) ??? Hypercoagulable state Protein S deficiency ??? Hyperlipemia ??? Obesity ??? 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 Rectal cancer Past Surgical History Past Surgical History: Procedure Laterality Date ??? COLONOSCOPY 12/17/2012 discovered rectal invasive adenocarcinoma ??? NASAL POLYP SURGERY ??? PILONIDAL CYST EXCISION ? ? PRG CATH PLMT LEFT HEART CATH & ARTS W/INJ & ANGIO IMG S&I N/A 12/30/2021 CORONARY ANGIOGRAPHY; W C,POSSIBLE PCI performed by Praneeth Malhotra MD at [facility] CATH LABS ??? PRO ADJ TISS XFER SCALP, EXTREM 10.1-30 05/11/2013 ADJ.TISSUE TRANSFER, REARRANGEMENT, 10.1 TO 30 SQ.CM, LEGS performed by Oscar Soto MD at [facility] MAIN OR ??? PRO CABG, ARTERIAL, SINGLE N/A 01/27/2022 @CABG, USING ARTERIAL GRAFT;SINGLE ARTERIAL GRAFT (WRVU 33.75) performed by Levi Hinds MD at [facility] OR ??? PRO CABG, ARTERY-VEIN, THREE N/A 01/27/2022 @CABG; 3 VENOUS GRAFTS & ARTERIAL GRAFT (WRVU 10.49) performed by Levi Hinds MD at [facility] OR ??? PRO COLONOSCOPY, DIAGNOSTIC N/A 03/23/2015 COLONOSCOPY, DIAGNOSTIC performed by Bobby Hills MD at [facility] ENDOSCOPY ??? PRO CYSTOSCOPY, INSERT URETERAL STENT 05/11/2013 CYSTO, STENT PLACEMENT INTRAOP, TEMPORARY performed by Mark Khan MD at [facility] OR ??? PRO ENDOSCOPY W/VIDEO-ASST VEIN HARVEST, CABG N/A 01/27/2022 ENDOSCOPIC HARVEST VEIN(S) FOR CABG (WRVU 0.31) performed by Levi Hinds MD at [facility] OR ??? PRO EXCLUSION, SMALL BOWEL FROM PELVIS 05/11/2013 @EXCLUSION OF SMALL INTESTINE FROM PELVIS performed by Bobby Hills MD at [facility] OR ??? PRO EXPLORATORY OF ABDOMEN N/A 10/29/2017 @EXPLORATORY LAPAROTOMY, WITH/WITHOUT BIOPSY(S) (WRVU 12.54) performed by Theo Washington MD [facility] OR ??? PRO LAP, SURG PROCTECTOMY W COLOSTOMY 05/11/2013 @LAPAROSCOPIC PROCTECTOMY, COMPLETE, APR W COLOSTOMY performed by Bobby Hills MD at [facility] OR ??? PRO MUSCLE-SKIN FLAP, LEG 05/11/2013 FLAP, MYOCUTANEOUS OR FASCIOCUTANEOUS, LOWER EXTREMITY performed by Oscar Soto MD at [facility] OR ??? PRO OMENTAL FLAP, INTRA-ABDOMINAL 05/11/2013 @OMENTAL FLAP, INTRA-ABDOMINAL performed by Mark Khan MD at [facility] OR ??? PRO REMOVE ABD LYMPH NODES RAD REGNL 05/11/2013 @LYMPHADENECTOMY,ABDOMINAL,REGIONAL,MULTIPLE NODES performed by Bobby Hills MD at [facility] OR ??? PRO REPAIR INCISIONAL HERNIA, REDUCIBLE N/A 10/29/2017 REPAIR INITIAL INCISIONAL OR VENTRAL HERNIA REDUCIBLE (WRVU 11.92) performed by Theo Washington MD at [facility] MAIN OR ? ? PRO UNLISTED PX ABD PRTM&OMENTUM N/A 10/29/2017 INCARCERATED PARASTOMAL HERNIA REPAIR (WRVU 11.1) performed by Theo Washington MD at [facility] MAIN OR ??? TONSILLECTOMY AND ADENOIDECTOMY ??? VASECTOMY Outpatient Medications Marked as Taking for the 03/04/22 encounter (Office Visit) with Levi Hinds MD Medication Sig Dispense Refill ??? fluticasone propionate (Flonase) 50 mcg/actuation [place], Suspension as needed. ??? metoprolol tartrate (Lopressor) 50 mg Tablet Take 1 tablet by mouth 2 times daily. 180 tablet 3 ??? furosemide (Lasix) 20 mg Tablet Take 1 tablet by mouth daily. 30 tablet 3 ??? potassium chloride ER (K-Dur/Klor-Con) 10 mEq Tablet Sustained Release Take 1 tablet by mouth daily. 30 tablet 3 ??? acetaminophen (Tylenol) 500 mg Tablet Take 2 tablets by mouth every 6 hours as needed for Pain. ??? nitroGLYcerin (Nitrostat) 0.4 mg Tablet, Sublingual Place 0.4 mg under the tongue as needed. ??? aspirin 81 mg Tablet, Chewable Take 81 mg by mouth daily. ??? ONE TOUCH DELICA 33 gauge Misc ??? ONETOUCH ULTRA TEST Strip ??? apixaban (ELIQUIS) 5 mg Tablet Take 1 tablet by mouth 2 times daily. 30 tablet 2 ??? JANUMET 50-1,000 mg Tablet Take 1 tablet by mouth 2 times daily. ??? atorvastatin (LIPITOR) 40 mg tablet Take 20 mg by mouth daily. 1/2 tab= 20mg ??? glipiZIDE (GLUCOTROL) 10 mg 24 hr tablet Take 10 mg by mouth 2 times daily. ??? multivitamin (THERAGRAN) tablet Take 1 tablet by mouth daily. Current Facility-Administered Medications for the 03/04/22 encounter (Office Visit) with Levi Hinds MD Medication Dose Route Frequency Provider Last Rate Last Admin ??? diatrizoate meglumine (HYPAQUE, CYSTOGRAFIN) urethral solution 300 mL 300 mL Urethral Once PRN Junie Dominguez MD No data found. 116.4 kg (256 lb 11.2 oz) Weight: 116.4 kg (256 lb 11.2 oz) On physical exam, he looks well. Incisions are healing well without erythema or signs of infection. Lungs are clear bilaterally. Heart is RR&R. ECG shows no acute changes. CXR shows clear lung vargas and sternal cables are in place. Echo was not performed. Assessment and Plan: Overall he is doing very well following his surgery. I told him that he may continue to increase his activity as tolerated. I told him I would be happy to see him again should any further problems arise. Sincerely, Levi Hinds MD documented in this encounter Plan of Treatment Not on file documented as of this encounter Procedures Procedure Name Priority Date/Time Associated Diagnosis Comments EKG 12-LEAD Routine 03/04/2022 11:10 AM EDT Coronary artery disease, unspecified vessel or lesion type, unspecified whether angina present, unspecified whether emmonak or transplanted heart documented in this encounter Results * EKG 12 Lead (03/04/2022 11:10 AM EDT) Ventricular rate 67 BPM MUSE SYSTEM Atrial Rate 67 BPM MUSE SYSTEM P-R Interval 190 ms MUSE SYSTEM QRS Duration 116 ms MUSE SYSTEM Q-T Interval 400 ms MUSE SYSTEM QTC Calculated (Bezet) 422 ms MUSE SYSTEM Calculated R Sawyer 84 degrees MUSE SYSTEM Calculated T Sawyer -140 degrees MUSE SYSTEM INTERPRETATION Normal sinus rhythm Incomplete left bundle block T wave abnormality, consider inferior ischemia ??versus repolarization abnormality due to conduction delay Abnormal ECG When compared with ECG of 29-JAN-2022 06:50, Sinus rhythm has replaced Atrial fibrillation Vent. rate has decreased BY ??65 BPM Confirmed by MD Zuniga Danette ([id number]) on 03/04/2022 4:08:27 PM MUSE SYSTEM 03/04/2022 11:1 0 AM EDT 03/04/2022 4:08 PM EDT Levi Hinds MD ECG ORDERABLES MUSE SYSTEM documented in this encounter Visit Diagnoses Diagnosis Coronary artery disease, unspecified vessel or lesion type, unspecified whether angina present, unspecified whether emmonak or transplanted heart documented in this encounter Care Teams Claims Adjustor Relationship Specialty Start Date End Date Randa Rosas APRN [address] [place] [id number] PCP - General 12/29/12 04/16/22 documented as of this encounter
--- OUTSIDE RECORDS SUMMARY | 2024-11-18 16:53 | XMS_ITS | Encounter Summary ---
Author Organization [facility] Address [facility] [place] [address] Care Team Providers Care Plating Machine Operator Name Role Phone Randa Rosas APRN Primary Care Provider +1- [phone] Encounter Details Date Type Department Care Team (Late st Contact Info) Description 02/11/2022 10:50 AM EDT Office [place] [phone] Levi Hinds MD S/P CABG (coronary artery bypass graft) Social History Tobacco Use Types Packs/Day Years [...] Sign Reading Time Taken Comments Blood Pressure 129/63 02/11/2022 10:29 AM EDT Pulse 68 02/11/2022 10:29 AM EDT Temperature - - Respiratory Rate - - Oxygen Saturation 98% 02/11/2022 10:29 AM EDT Inhaled Oxygen Concentration - - Weight 117.7 kg (259 lb 8 oz) 02/11/2022 10:29 A M EDT Height 170.2 cm (5' 7) 02/11/2022 10:29 AM EDT Reported Body Mass Index 40.64 02/11/2022 10:29 AM EDT documented in this encounter Progress Notes * Levi Hinds MD - 02/11/2022 10:50 AM EDT S/p CABG- has protein S def. On epixiban and asa Here for echo to eval for pericardial effusion Pain under control No fever or chills No hill Ostomy working well afeb vss Wound cdi Echo- no effusion Plan will see in routine follow up Refill on oxy documented in this encounter Plan of Treatment Not on file documented as of this encounter Visit Diagnoses Diagnosis S/P CABG (coronary artery bypass graft) Postsurgical aortocoronary bypass status documented in this encounter Care Teams Plating Machine Operator Relationship Specialty Start Date End Date Randa Rosas APRN [address] [place] [address] PCP - General 12/29/12 04/16/22 documented as of this encounter
--- OUTSIDE RECORDS SUMMARY | 2024-11-18 16:53 | XMS_ITS | Encounter Summary ---
Author Organization [facility] Address [facility] [place] [address] Care Team Providers Care Business Rules Analyst Name Role Phone Susan Estrada MD Primary Care Provider Reason for Visit * Reason Onset Date Comments Medication Refill 12/21/2023 Encounter Details Date Type Department Care Team (Late st Contact Info) Description 12/21/2023 Refill Cardiology at [address] [address] Yoandy Wheatley MD [facility] [place] [address] Medication Refill Social History Tobacco Use Types Packs/Day Years [...] on file documented as of this encounter Plan of Treatment Not on file documented as of this encounter Visit Diagnoses Diagnosis S/P CABG (coronary artery bypass graft) Postsurgical aortocoronary bypass status documented in this encounter Care Teams Business Rules Analyst Relationship Specialty Start Date End Date Susan Estrada MD [address] [facility] [place] [address] PCP - General 04/17/22 documented as of this encounter
--- OUTSIDE RECORDS SUMMARY | 2024-11-18 16:53 | XMS_ITS | Encounter Summary ---
Author Organization [facility] [place] [address] Care Team Providers Care Mobile Practice Lead Name Role Phone Susan Estrada MD Primary Care Provider Encounter Details Date Type Department Care Team (Latest Contact Info) Description 03/28/2024 Travel Social History Tobacco Use Types Packs/Day Years [...] on filedocumented in this encounter Care Teams Mobile Practice Lead Relationship Specialty Start Date End Date Susan Estrada MD [address] [facility] [place], [place] [id number] PCP - General 04/17/22 documented as of this encounter
--- OUTSIDE RECORDS SUMMARY | 2024-11-18 16:53 | XMS_ITS | Encounter Summary ---
Author Organization [facility] Address [facility] [place] [address] Care Team Providers Care Print Project Manager Name Role Phone Susan Estrada MD Primary Care Provider Encounter Details Date Type Department Care Team (Late st Contact Info) Description 06/05/2022 10:30 AM EDT Office Visit Cardiology at [address] [address] Yoandy Wheatley MD [facility] [place] [address] Atrial fibrillation, unspecified type; Chest pain, unspecified type Social History Tobacco Use Types [...] Sign Reading Time Taken Comments Blood Pressure 123/47 06/05/2022 10:09 AM EDT Pulse 75 06/05/2022 10:09 AM EDT Temperature - - Respiratory Rate - - Oxygen Saturation 99% 06/05/2022 10: 09 AM EDT Inhaled Oxygen Concentration - - Weight 118.5 kg (261 lb 3.2 oz) 022 10:09 AM EDT Height 170.2 cm (5' 7) 06/05/2022 10:0 9 AM EDT Body Mass Index 40.91 06/05/2022 10:09 AM EDT documented in this encounter Progress Notes * Yoandy Wheatley MD - 06/05/2022 10:[address] [facility] [place] [address] CARDIOLOGY/ VASCULAR OUTPATIENT NOTE Reg Salazar Susan Sanford MD OFFICE VISIT : From the discharge summary (CT surgery), January 2022: CABG x 4 Reg Salazar was admitted to [facility] on 01/27/2022 via the Same Day Program. He was brought to the operating room where Dr. Levi Hinds performed coronary artery bypass grafting. He tolerated the procedure and was brought to the Cardiovascular Intensive Care Unit for recovery. He initially required the pharmacologic support of intravenous epinephrine and levophed. He was extubated from the ventilator on the day of surgery. ?? All drips were weaned to off. Routine postoperative and home medications were started and a diet was advanced. Aspirin 81mg daily was started. Statin therapy was continued. He was started on beta blockade and this was optimized. Diuretics were started and he responded appropriately. ?? He was transferred to the Intermediate Cardiac Care Unit for continued rehabilitation. All tubes, lines, and epicardial pacing wires were removed without incident. He self caths at baseline and his aguilar remained in until time of discharge at which time he will resume his home regimen ?? Post-op Atrial Fibrillation He developed atrial fibrillation post-operative and was loaded with amiodarone for rhythm control. He will continue on amiodarone for 1 month until follow up with cardiac surgery. Coumadin was not started as he had a single episodes of atrial fibrillation. He was in SR at the time of discharge. ?? NIDDM His glucose initially managed with an insulin gtt, he was transitioned to SSI and eventually to hishome regimen ?? He was seen by Physical Therapy and Cardiac Rehabilitation. Sternal precaution education was provided. His discharge plan at this time is to home with family. The remainder of his hospital course wasuneventful and by postoperative day #4 he had met all criteria for discharge. Pain was controlled on oral medications. He had walked 5 minutes and gone up and down stairs. He was tolerating a regular diet with a functioning colostomy. From the prior cardiology visit (Sohail BADILLO, 11/2021): 66 y.o. male of obesity, DM2, HTN, HLD, and history of rectal cancer s/p colostomy 2008 which was complicated by DVT (on chronic eliquis) who was referred by his primary care provider for exertional chest pain compounded by several cardiac risk factors. The nature of his chest pain sounds concerning for possible coronary artery disease. Discussion was had with patient surrounding stress testing versus coronary angiogram. The indications, expected benefits and potential risks of heart catheterization were reviewed in detail with the patient. The potential for , heart attack, stroke, kidney failure, hemorrhage, allergic reaction, vascular complications and infection were reviewed in detail. The possibility of stenting and other percutaneous intervention with associated risk was reviewed. Patient states that he would prefer proceeding with further ischemic evaluation via catheterization at this time. ?? #Unstable Angina - Left heart catheterization ordered. - Will obtain pre-catheterization lab work today. - Transthoracic echocardiogram, planned for tomorrow 12/20/2021 - Reinforced the instruction on proper utilization of his sublingual nitroglycerin. - Continue aspirin, atorvastatin, lisinopril, and apixaban. - Hold apixaban 48 hours prior to catheterization. Thank you for allowing me to participate in the care of your patient. Please do not hesitate to contact me with any questions or concerns. ?? SUBJECTIVE: Reg Salazar returns to clinic for follow-up. He is s/p CABG in January 2022. Patient completed cardiac rehab at [facility] for 5 weeks. States he is feeling well. Active at home. Piled up 6 cords or wood. Mows his lawn. Walks everyday. Some fishing. Ran out of [employer] on Thursday. And KCl. Has not had any recurrent edema so far. A1C has been high. Updated test pending. Glu 169 this morning. A1C has been around 8. Meds: Current Outpatient Medications Medication Sig Note Dispense Refill ??? metoprolol tartrate (Lopressor) 50 mg Tablet Take 1 tablet by mouth 2 times daily. 180 tablet 3 ??? nitroGLYcerin (Nitrostat) 0.4 mg Tablet, Sublingual Place 0.4 mg under the tongue as needed. ??? JANUMET 50-1,000 mg Tablet Take 1 tablet by mouth 2 times daily. 09/01/2017: Received from: External Pharmacy ??? atorvastatin (LIPITOR) 40 mg tablet Take 20 mg by mouth daily. / tab= 20mg ??? glipiZIDE (GLUCOTROL) 10 mg 24 hr tablet Take 10 mg by mouth 2 times daily. ??? multivitamin (THERAGRAN) tablet Take 1 tablet by mouth daily. ??? furosemide (Lasix) 20 mg Tablet Take 1 tablet by mouth daily as needed (for leg swelling). 30 tablet 5 ??? fluticasone propionate (Flonase) 50 mcg/actuation [place], Suspension as needed. ??? oxyCODONE (Roxicodone) 5 mg Tablet Take 1 tablet by mouth every 4 hours as needed for Pain. (Patient not taking: No sig reported) 12 tablet 0 ??? AMIOdarone (Paceron) 200 mg Tablet Take 1 tablet by mouth 2 times daily. (Patient not taking: Reported on 06/05/2022) 60 tablet 0 ??? acetaminophen (Tylenol) 500 mg Tablet Take 2 tablets by mouth every 6 hours as needed for Pain.(Patient not taking: Reported on 06/05/2022) ??? aspirin 81 mg Tablet, Chewable Take 81 mg by mouth daily. ??? ONE TOUCH DELICA 33 gauge Misc 11/18/2017: Received from: External Pharmacy ??? ONETOUCH ULTRA TEST Strip 11/18/2017: Received from: External Pharmacy ??? apixaban (ELIQUIS) 5 mg Tablet Take 1 tablet by mouth 2 times daily. (Patient not taking: Reported on 06/05/2022) 30 tablet 2 Patient Vitals for the past 24 hrs: Pulse BP SpO2 06/05/22 1009 75 123/47 99 % General: Body mass index is 40.91 kg/m??. HEENT: PERRLA Neck: supple, JVP normal Lungs: clear to ascultation Cardiac: RRR, no m/r/g Abdomen: nontender, nondistended Extremities: normal ROM, No edema. Neuro: alert and oriented x 3, normal muscle strength Most recent labs or other cardiac testing: Latest Reference Range & Units 01/30/22 04:10 Sodium 135 - 145 mmol/L 139 Potassium 3.5 - 5.0 mmol/L 3.5 - 5.0 mmol/L Not Perf [1] 4.2 [2] Chloride 98 - 107 mmol/L 100 CO2 22 - 31 Not Perf [3] Anion Gap 5 - 15 mmol/L Not Calculated [4] BUN 10 - 20 mg/dL 9 (L) Creatinine 0.80 - 1.50 mg/dL 0.66 (L) Estimated GFR >=60 mL/min/1.73 m?? 101 [5] Calcium 8.5 - 10.5 mg/dL 8.3 (L) [6] Glucose Lvl 65 - 199 mg/dL 151 [7] ASSESSMENT / PLAN: 66 year old obese male (BMI 40) who is s/p CABG in January 2022. Normal LVEF. Diabetes. Likely has LEANDER but deferred sleep study. -continue GDMT: ASA, low dose BB, high intensity statin. May benefit from being back on low dose IRISH at some point. -patient completed the one month amio post surgery. He did have postop AF with RVR. Current ECG with NSR. -Change lasix to prn, ok to stop KCl 10 mEq -deferred sleep study, probably has LEANDER Follow-up plan: 6 months or prn Yoandy Wheatley MD, [facility] Cardiovascular Medicine [place] [id number] Clinic [phone] Clinic Team Nurse: [phone] The total time associated with this visit was 30 minutes. documented in this encounter Plan of Treatment Not on file documented as of this encounter Procedures Procedure Name Priority Date/Time Associated Diagnosis Comments EKG 12-LEAD Routine 06/05/2022 10:50 AM EDT Atrial fibrillation, unspecified type documented in this encounter Results * EKG 12 Lead (06/05/2022 10:50 AM EDT) Ventricular rate 77 BPM MUSE SYSTEM Atrial Rate 77 BPM MUSE SYSTEM P-R Interval 190 ms MUSE SYSTEM QRS Duration 106 ms MUSE SYSTEM Q-T Interval 386 ms MUSE SYSTEM QTC Calculated (Bezet) 436 ms MUSE SYSTEM Calculated P Ulm 37 degrees MUSE SYSTEM Calculated R Ulm 79 degrees MUSE SYSTEM Calculated T Ulm 163 degrees MUSE SYSTEM INTERPRETATION Sinus rhythm Occasional Premature ventricular complexes Incomplete left bundle block ST & T wave abnormality, consider inferolateral ischemia Abnormal ECG When compared with ECG of 04-MAR-2022 11:10, Premature ventricular complexes are now Present Confirmed by MD Zuniga Danette ([id number]) on 06/05/2022 7:07:01 PM MUSE SYSTEM 06/05/2022 10:5 0 AM EDT 06/05/2022 7:07 PM EDT Yoandy Wheatley MD ECG ORDERABLES MUSE SYSTEM documented in this encounter Visit Diagnoses Diagnosis Atrial fibrillation, unspecified type Chest pain, unspecified type documented in this encounter Care Teams Print Project Manager Relationship Specialty Start Date End Date Susan Estrada MD [address] [place] [address] PCP - General 04/17/22 documented as of this encounter
--- OUTSIDE RECORDS SUMMARY | 2024-11-18 16:53 | XMS_ITS | Encounter Summary ---
Author Organization [facility] [place] [address] Care Team Providers Care Director Payer Name Role Phone Susan Estrada MD Primary Care Provider Encounter Details Date Type Department Care Team (Latest Contact Info) Description 12/05/2022 Travel Social History Tobacco Use Types Packs/Day [...] on filedocumented in this encounter Care Teams Director Payer Relationship Specialty Start Date End Date Susan Estrada MD [address] [facility], [place] [address] PCP - General 04/17/22 documented as of this encounter
--- OUTSIDE RECORDS SUMMARY | 2024-11-18 16:53 | XMS_ITS | Encounter Summary ---
Author Organization [facility] Address [facility] [place] [address] Care Team Providers Care Jury Consultant Name Role Phone Randa Rosas VALENTIN Primary Care Provider [phone]- [phone] Reason for Visit * Diagnostic Test (Routine) - Closed Specialty Diagnoses / Procedures Referred By Contac t Referred To Contact Cardiology Diagnoses S/P CABG x 4 Procedures Echocardiogram Transthoracic Olvin Cain PA [facility] DR [place] [address] [facility] [place] [address] Referral ID Status Reason Start Date Expiration Date V isits Requested Visits Authorized [id number] Closed Specialty Service Requested 01/31/2022 01/31/2023 1 1 Encounter Details Date Type Department Care Team (Latest Contact Info) Description 02/11/2022 8:06 AM EDT - 02/11/2022 11:59 PM EDT Hospital Encounter [place] [address] Discharge Disposition: Home Social History Tobacco Use Types Packs/Day Years [...] on file documented as of this encounter Medications at Time of Discharge Medication Sig Dispensed Refills Start Date End Date fluticasone propionate (Flonase) 50 mcg/actuation [place], Suspension as needed. 01/07/2022 oxyCODONE (Roxicodone) 5 mg Tablet Take 1 tablet by mouth every 4 hours as needed for Pain. 12 tablet 02/11/2022 metoprolol tartrate (Lopressor) 50 mg Tablet Take 1 tablet by mouth 2 times daily. 180 tablet 3 01/31/2022 acetaminophen (Tylenol) 500 mg Tablet Take 2 tablets by mouth every 6 hours as needed for Pain. 01/31/2022 nitroGLYcerin (Nitrostat) 0.4 mg Tablet, Sublingual Place 0.4 mg under the tongue as needed. 01/18/2022 aspirin 81 mg Tablet, Chewable Take 81 mg by mouth daily. ONE TOUCH DELICA 33 gauge Misc 11/10/2017 ONETOUCH ULTRA TEST Strip 11/10/2017 apixaban (ELIQUIS) 5 mg Tablet Take 1 tablet by mouth 2 times daily. 30 tablet 2 11/04/2017 atorvastatin (LIPITOR) 40 mg tablet Take 40 mg by mouth daily. glipiZIDE (GLUCOTROL) 10 mg 24 hr tablet Take 10 mg by mouth 2 times daily. multivitamin (THERAGRAN) tablet Take 1 tablet by mouth daily. AMIOdarone (Paceron) 200 mg Tablet Take 1 tablet by mouth 2 times daily. 60 tablet 01/31/2022 12/05/2022 furosemide (Lasix) 20 mg Tablet Take 1 tablet by mouth daily. 30 tablet 3 01/31/2022 06/05/2022 potassium chloride ER (K-Dur/Klor-Con) 10 mEq Tablet Sustained Release Take 1 tablet by mouth daily. 30 tablet 3 01/31/2022 06/05/2022 JANUMET 50-1,000 mg Tablet Take 1 tablet by mouth 2 times daily. 08/18/2017 12/05/2022 documented as of this encounter Plan of Treatment Not on file documented as of this encounter Procedures Procedure Name Priority Date/Time Associated Diagnosis Comments ECHO COMPLETE W CONTRAST Routine 02/11/2022 9:40 AM EDT S/P CABG x 4 documented in this encounter Visit Diagnoses Not on filedocumented in this encounter Administered Medications Inactive Administered Medications - up to 3 most recent administrations Medication Order MAR Action Action Date Dose Rate Site perflutren protein-A microsphers (Optison) (0.22 mg/mL) injection 3 mL 3 mL, Intravenous, ONCE PRN, 1 dose, Starting on Thu02/11/22 at 0915, Until Thu02/11/22 at 0916, prn, Routine Given 02/11/2022 9:16 AM EDT 3 mLs documented in this encounter Care Teams Jury Consultant Relationship Specialty Start Date End Date Randa Rosas APRN [address] [place] [id number] PCP - General 12/29/12 04/16/22 documented as of this encounter
--- OUTSIDE RECORDS SUMMARY | 2024-11-18 16:53 | XMS_ITS | Encounter Summary ---
Author Organization [facility] Address [facility] [place] [address] Care Team Providers Care Physician [facility] Name Role Phone Randa Rosas VALENTIN Primary Care Provider +1- [phone] Encounter Details Date Type Department Care Team (Latest Contact Info) Description 03/04/2022 9:17 AM EDT - 03/04/2022 11:59 PM EDT Hospital Encounter XRay at [address] [place] [address] Levi Hinds MD Coronary artery disease, unspecified vessel or lesion type, unspecified whether angina present, unspecified whether yomba shoshone or transplanted heart Discharge Disposition: Home Social History Tobacco Use [...] End Date fluticasone propionate (Flonase) 50 mcg/actuation [place], Suspension as needed. 01/07/2022 oxyCODONE (Roxicodone) 5 [...] Procedure Name Priority Date/Time Associated Diagnosis Comments XR CHEST PA AND LATERAL Routine 03/04/2022 9:24 AM EDT Coronary artery disease, unspecified vessel or lesion type, unspecified whether angina present, unspecified whether [place]omb[place] shoshone or transplanted heart documented in this encounter Results * XR Chest PA & Lateral (Generic) (03/04/2022 9:24 AM EDT) Anatomical Region Laterality Modality Chest N/A Digital Radiogra phy Impressions 03/04/2022 10:33 AM EDT Resolution of pleural effusions. No pneumothorax. Mild right lung atelectasis. Resolved left lung atelectasis. I have personally reviewed the image(s) and the resident's interpretation and agree with the findings, Swetha Bell MD at 03/04/2022 10:33 AM Thank you for letting us participate in the care of this patient. ??If you are a health care provider and have any questions regarding this report, please contact the number below. ??For patients who have questions please contact the health health care social worker that requested your imaging first. ? Electronically signed by: Swetha Bell MD, [facility] ([phone]), at 03/04/2022 10:33 AM Narrative 03/04/2022 10:33 AM EDT EXAMINATION: XR CHEST PA AND LATERAL (GENERIC) CLINICAL HISTORY: s/p cabg TECHNIQUE: PA and lateral views of the chest COMPARISON: Chest radiographs 01/30/2022 FINDINGS: Sternal cerclage wires and mediastinal surgical clips in place from recent coronary artery bypass grafting. Resolution of pleural effusions. The left lung is clear with resolved bibasilar atelectasis. Mild residual atelectasis at the base of the right lung. No focal airspace opacities. Stable mildly prominent cardiomediastinal silhouette. Normal pulmonary vascular markings. Procedure Note Swetha Bell MD - 03/04/2022 EXAMINATION: XR CHEST PA AND LATERAL (GENERIC) CLINICAL HISTORY: s/p cabg TECHNIQUE: PA and lateral views of the chest COMPARISON: Chest radiographs 01/30/2022 FINDINGS: Sternal cerclage wires and mediastinal surgical clips in place fromrecent coronary artery bypass grafting. Resolution of pleural effusions. The leftlung is clear with resolved bibasilar atelectasis. Mild residual atelectasis atthe base of the right lung. No focal airspace opacities. Stable mildlyprominent cardiomediastinal silhouette. Normal pulmonary vascular markings. IMPRESSION Resolution of pleural effusions. No pneumothorax. Mild right lungatelectasis. Resolved left lung atelectasis. I have personally reviewed the image(s) and the resident's interpretationand agree with the findings, Swetha Bell MD at 03/04/2022 10:33 AM Thank you for letting us participate in the care of this patient. If youare a health care provider and have any questions regarding this report,please contact the number below. For patients who have questions please contactthe health health care social worker that requested your imaging first. Electronically signed by: Swetha Bell MD, [facility]([phone]), at 03/04/2022 10:33 AM Levi Hinds MD IMG DX ORDERABLES documented in this encounter Visit Diagnoses Diagnosis Coronary artery disease, unspecified vessel or lesion type, unspecified whether angina present, unspecified whether yomba shoshone or transplanted heart documented in this encounter Care Teams Physician Locums Urgent [facility] Relationship Specialty Start Date End Date Randa Rosas APRN [address] [place] [phone] PCP - General 12/29/12 04/16/22 documented as of this encounter
--- OUTSIDE RECORDS SUMMARY | 2024-11-18 16:53 | XMS_ITS | Encounter Summary ---
Author Organization [facility] [place] [address] Care Team Providers Care Care Rep Name Role Phone Susan Estrada MD Primary Care Provider Encounter Details Date Type Department Care Team (Latest Contact Info) Description 12/28/2023 Travel Social History Tobacco Use Types Packs/Day [...] on filedocumented in this encounter Care Teams Care Rep Relationship Specialty Start Date End Date Susan Estrada MD [address] [facility], [place] [address] PCP - General 04/17/22 documented as of this encounter
--- OUTSIDE RECORDS SUMMARY | 2024-11-18 16:53 | XMS_ITS | Encounter Summary ---
Author Organization [facility] Address [facility] [address] Care Team Providers Care Plastic Straightening Roll Operator Name Role Phone Susan Estrada MD Primary Care Provider Encounter Details Date Type Department Care Team (Late st Contact Info) Description 12/05/2022 3:00 PM EST Office Visit Cardiology at [address] [phone] Yoandy Wheatley MD [facility] [place] [address] Chest pain, unspecified type; S/P CABG (coronary artery bypass graft) Social [...] Sign Reading Time Taken Comments Blood Pressure 132/54 12/05/2022 2:56 PM EST Pulse 86 12/05/2022 2:56 PM EST Temperature - - Respiratory Rate 16 12/05/2022 2:56 PM EST Oxygen Saturation 97% 12/05/2022 2:56 PM EST Inhaled Oxygen Concentration - - Weight 116.1 kg (256 lb) 12/05/2022 2:56 PM EST Height 170.2 cm (5' 7) 12/05/2022 2:56 PM EST Body Mass Index 40.1 12/05/2022 2:56 PM EST documented in this encounter Progress Notes * Yoandy Wheatley MD - 12/05/2022 3:00 PM EST Images from the original note were not included. [place] [address] CARDIOLOGY/ VASCULAR OUTPATIENT NOTE Reg Sanford MD OFFICE VISIT : From my prior note (05/2022): 66 year old obese male (BMI 40) who is s/p CABG in January 2022. Normal LVEF. Diabetes. Likely has LEANDER but deferred sleep study. ?? -continue GDMT: ASA, low dose BB, high intensity statin. May benefit from being back on low dose IRISH at some point. -patient completed the one month amio post surgery. He did have postop AF with RVR. Current ECG with NSR. -Change lasix to prn, ok to stop KCl 10 mEq -deferred sleep study, probably has LEANDER Follow-up plan: 6 months or prn SUBJECTIVE: 67 year old male who returns for follow-up roughly 1 year s/p CABG. He is retired (worked at a [employer]). He lives with his girlfriend in [facility] [place] [facility]. He tries to remain active - although he remains significantly overweight (255 lbs, BMI 40). He says that he tries to go for a walk everyday and if he cannot walk outside, he has a [employer]addle[employer]lle exercise machine at home that he will occasionally use. He also heats his home with wood so he is involved in carrying wood on a daily basis. He notes that he was having chest pain and shortness of breath prior to his CABG (while using a snowblower) and he has not had any recurrent symptoms. He has not had much snow this year. He was taking the lasix on a prn basis but then was basically taking it daily for leg swelling. Hisright leg tends to swell more due to a history of DVT and he wears a compression stocking on right.He is also on apixaban mcc for this. Meds: Current Outpatient Medications Medication Sig Note Dispense Refill ??? furosemide (Lasix) 20 mg Tablet Take 1 tablet by mouth daily as needed (for leg swelling). 30 tablet 5 ??? fluticasone propionate (Flonase) 50 mcg/actuation [place], Suspension as needed. ??? metoprolol tartrate (Lopressor) 50 mg Tablet Take 1 tablet by mouth 2 times daily. 180 tablet 3 ??? acetaminophen (Tylenol) 500 mg [...] 2 times daily. 30 tablet 2 ??? atorvastatin (LIPITOR) 40 mg tablet Take 20 mg by mouth daily. / tab= 20mg ??? glipiZIDE (GLUCOTROL) 10 mg 24 hr tablet Take 10 mg by mouth 2 times daily. ??? multivitamin (THERAGRAN) tablet Take 1 tablet by mouth daily. ??? metFORMIN (Glucophage) 500 mg Tablet Take 1 tablet by mouth 2 times daily (with meals). 60 tablet 12 ??? oxyCODONE (Roxicodone) 5 mg Tablet Take 1 tablet by mouth every 4 hours as needed for Pain. (Patient not taking: Reported on 03/04/2022) 12 tablet 0 trulicity 1.5 once per week. Patient Vitals for the past 24 hrs: Pulse Resp BP SpO2 12/05/22 1456 86 16 132/54 97 % General: BMI 40 HEENT: PERRLA Neck: supple, JVP normal Lungs: clear to ascultation Cardiac: RRR, no m/r/g Abdomen: nontender, nondistended Extremities: normal ROM, mild edema on right (compression stocking), trace on left Neuro: alert and oriented x 3, normal muscle strength Most recent labs or other cardiac testing: Echo 02/11/2022: (around time of CABG) Interpretation Summary 1. Left ventricle is moderately dilated. Left ventricular systolic function is moderately reduced. The left ventricular ejection fraction is 35% by Navarro's biplane. There are regional wall motion abnormalities including akinesis at the mid anteroseptum and apex. Other segments are hypokinetic. 2. No significant valvular abnormalities. 3. Other details as noted below. 4. As compared to the prior echo report from 12/20/2021, the findings are similar. ASSESSMENT / PLAN: 67 year old obese male (BMI 40) with IDDM who is s/p CABG in January 2022. LVEF previously 35-40% with regional WMA. Likely has LEANDER but deferred sleep study. Has a history of DVT and is on mcc DOAC (apixaban). ?? #ischemic cardiomyopathy -continue GDMT: ASA, met tart 50 bid, atorva 20 (unclear why he is not on high intensity). -With abnormal LVEF and diabetes, he should be on IRISH or ARB. Start losartan 25 mg po qd. -He prefers to take the lasix every day rather than prn (Rx changed). -plan on repeat echo > 1 year s/p CABG to reassess LVEF #history of DVT -on apixaban #probable LEANDER -consider referral for sleep study Follow-up plan: 6 months with updated echo prior to visit Yoandy Wheatley MD, [facility] Cardiovascular Medicine [place] [address] Clinic [phone] Clinic Team Nurse: [phone] The total time associated with this visit was 30 minutes. documented in this encounter Plan of Treatment Not on file documented as of this encounter Procedures Procedure Name Priority Date/Time Associated Diagnosis Comments EKG 12-LEAD Routine 12/05/2022 3:06 PM EST Chest pain, unspecified type documented in this encounter Results * EKG 12 Lead (12/05/2022 3:06 PM EST) Ventricular rate 85 BPM MUSE SYSTEM Atrial Rate 85 BPM MUSE SYSTEM P-R Interval 176 ms MUSE SYSTEM QRS Duration 110 ms MUSE SYSTEM Q-T Interval 370 ms MUSE SYSTEM QTC Calculated (Bezet) 440 ms MUSE SYSTEM Calculated P [place] -12 degrees MUSE SYSTEM Calculated R [place] 77 degrees MUSE SYSTEM Calculated T [place] -154 degrees MUSE SYSTEM INTERPRETATION Normal sinus rhythm Incomplete left bundle block ST & T wave abnormality, consider inferior ischemia Abnormal ECG When compared with ECG of 05-JUN-2022 10:50, Premature ventricular complexes are no longer Present Confirmed by MD Tara, Sandeep ([id number]) on 12/06/2022 2:28:52 PM MUSE SYSTEM 12/05/2022 3:06 PM EST 12/06/2022 2:28 PM EST Yoandy Wheatley MD ECG ORDERABLES MUSE SYSTEM documented in this encounter Visit Diagnoses Diagnosis Chest pain, unspecified type S/P CABG (coronary artery bypass graft) Postsurgical aortocoronary bypass status documented in this encounter Care Teams Plastic Straightening Roll Operator Relationship Specialty Start Date End Date Susan Estrada MD [address] [place] [address] PCP - General 04/17/22 documented as of this encounter
--- OUTSIDE RECORDS SUMMARY | 2024-11-18 16:53 | XMS_ITS | Encounter Summary ---
Author Organization [facility] Address [facility] [place] [address] Care Team Providers Care Experimental Electronics Developer Name Role Phone Susan Estrada MD Primary Care Provider Reason for Referral * Diagnostic Test (Routine) - Closed Specialty Diagnoses / Procedures Referred By Contac t Referred To Contact Cardiology Diagnoses S/P CABG (coronary artery bypass graft) Cardiomyopathy, ischemic Procedures Echocardiogram Transthoracic Benjy Jaramillo APRN [facility] [place] [address] [facility] [place] [address] Referral ID Status Reason Start Date Expiration Date V isits Requested Visits Authorized [id number] Closed Specialty Service Requested 12/28/2023 12/27/2024 1 1 Reason for Visit * Diagnostic Test (Routine) - Closed Specialty Diagnoses / Procedures Referred By Contac t Referred To Contact Cardiology Diagnoses S/P CABG (coronary artery bypass graft) Cardiomyopathy, ischemic Procedures Echocardiogram Transthoracic Benjy Jaramillo APRN [facility] [place] [address] [facility] [place] [address] Referral ID Status Reason Start Date Expiration Date V isits Requested Visits Authorized [id number] Closed Specialty Service Requested 12/28/2023 12/27/2024 1 1 Encounter Details Date Type Department Care Team (Latest Contact Info) Description 03/28/2024 7:06 AM EDT - 03/28/2024 11:59 PM EDT Hospital Encounter Non-Invasive Cardiology Lab [facility] [place] [address] Benjy Jaramillo APRN [facility] [place] [address] S/P CABG (coronary artery bypass graft); Cardiomyopathy, ischemic Discharge Disposition: Home Social History Tobacco Use [...] Sig Dispensed Refills Start Date End Date furosemide (Lasix) 20 mg tabletIndications:S/P CABG (coronary artery bypass graft) Take 1 tablet by mouth daily. 90 tablet 3 12/21/2023 metFORMIN (Glucophage) 500 mg Tablet Take 1 tablet by mouth 2 times daily (with meals). 60 tablet 12 12/05/2022 fluticasone propionate (Flonase) 50 mcg/actuation [place], Suspension as needed. 01/07/2022 oxyCODONE (Roxicodone) 5 [...] tablet Take 1 tablet by mouth daily. documented as of this encounter Plan of Treatment Not on file documented as of this encounter Procedures Procedure Name Priority Date/Time Associated Diagnosis Comments ECHO COMPLETE Routine 03/28/2024 8:28 AM EDT S/P CABG (coronary artery bypass graft) Cardiomyopathy, ischemic documented in this encounter Results * ECHO COMPLETE (03/28/2024 8:28 AM EDT) EF 45 HEARTAirizu SYSTEM Anatomical Region Laterality Modality Cardiac Other 03/28/2024 7:37 AM EDT Narrative 03/28/2024 8:59 AM EDT [address] [place] [address] ? Echocardiogram Report Name: ADRIEN CHEUNG ? Study Date: 03/28/2024 07:37 AMBP: 106/55 mmHg ? Patient Location: 4A ? HR: 69 : 1955 ? Height: 170 cm ? Account: [id number] Age: 68 yrs ? Weight: 111 kg Gender: Male ?BSA: 2.2 m2 Ordering Physician: BENJY JARAMILLO Referring Physician: BENJY JARAMILLO Performed By: Abe Corbin RDCS Reason For Study: S/P CABG 3 y.a., ischemic cardiomyopathy Exam Location: [facility]. Interpretation Summary Technically difficult study with [...] with similar regional wall motion abnormalities. Procedure Complete-[id number]. Satisfactory quality. There is normal sinus rhythm. Left Ventricle Left ventricle is of normal size. Wall thickness is mildly increased. The left ventricular ejection fraction is 56% by Navarro's biplane. Global longitudinal strain is measured at -11.0 %. (GE). Left ventricular ejection fraction is estimated visually [...] Note Yoandy Wheatley MD - 03/28/2024 1 [place] [address] Echocardiogram Report Name: ADRIEN CHEUNG Study Date: 407:37 AMBP: 106/55 mmHg Patient Location: HR: 69 : 1955 Height: 170 cm Account: [id number] Age: 68 yrs Weight: 111 kg Gender: Male BSA: 2.2 m2 Ordering Physician: BENJY JARAMILLO Referring Physician: BENJY JARAMILLO Performed By: Abe Corbin RDCS Reason For Study: S/P CABG 3 y.a., ischemic cardiomyopathy Exam Location: [facility]. Interpretation Summary Technically difficult study with [...] with similar regional wall motion abnormalities. Procedure Complete-[id number]. Satisfactory quality. There is normal sinus rhythm. [...] Aneurysmal 15-16diffuse Benjy Jaramillo APRN ECHO ORDERABLES documented in this encounter Visit Diagnoses Diagnosis S/P CABG (coronary artery bypass graft) Postsurgical aortocoronary bypass status Cardiomyopathy, ischemic Other specified forms of chronic ischemic heart disease documented in this encounter Care Teams Experimental Electronics Developer Relationship Specialty Start Date End Date Susan Estrada MD [address] [place] [address] PCP - General 04/17/22 documented as of this encounter
--- OUTSIDE RECORDS SUMMARY | 2024-11-18 16:54 | XMS_ITS | Encounter Summary ---
Author Organization [facility] Address [facility] [place] [address] Care Team Providers Care Beef Lugger Name Role Phone Randa Rosas VALENTIN Primary Care Provider [phone] Reason for Visit * Auth/Cert Specialty Diagnoses / Procedures Referred By Contac t Referred To Contact Diagnoses CAD (coronary artery disease) Atherosclerotic heart disease of [place] coronary artery with other forms of angina pectoris CAD Procedures PRO CABG, ARTERIAL, SINGLE PRO CABG, ARTERY-VEIN, THREE PRO ENDOSCOPY W/VIDEO-ASST VEIN HARVEST, CABG @CABG, USING ARTERIAL GRAFT;SINGLE ARTERIAL GRAFT (WRVU 33.75) @CABG; 3 VENOUS GRAFTS & ARTERIAL GRAFT (WRVU 10.49) ENDOSCOPIC HARVEST VEIN(S) FOR CABG (WRVU 0.31) Referral ID Status Reason Start Date Expiration Date Visits Re quested Visits Authorized [id number] 1 1 Encounter Details Date Type Department Care Team (Late st Contact Info) Description 01/27/2022 7:24 AM EST Anesthesia Event [place] [address] Lorie Houser MD [facility] [place] [address] Anesthesia Record Procedure Summary Procedure Name Responsible Anesthesiologist Anesthesia Start Time Anesthesia Stop Time @CABG, USING ARTERIAL GRAFT;SINGLE ARTERIAL GRAFT (WRVU 33.75) (Chest) Lorie Houser MD 01/27/22 0724 01/27/22 1300 Events Date Time Event Comment 01/27/2022 0704 0724 AN Verify 0724 Start 0724 An Start Data 0734 an reg now 0738 An Induction 0743 An Intubation 0753 ALEXA PROBE ONLY 0806 Anesthesia Ready 0824 Procedure Start 0827 Sternotomy 0846 Heparin 0902 AN AORTIC CANNULA 0930 Break/Relief In I assumed ca re for Break Relief before which we: 1. Identified the patient 2. Identified the responsible provider(s) 3. Reviewed the pertinent medical history 4. Discussed the surgical plan and course 5. Reviewed intra-op anesthesia management and issues during anesthesia 6. Set expectations for the relief (and/or post-procedure) period 7. Allowed opportunity for questions and acknowledgement of understanding Alicia Gtz MD 0945 CV Bypass init 0947 An Clamp start 1126 an reg now 1126 Quick Note Clamp off 1126 An Clamp Remove 1128 an reg now 1128 AN Defib 1137 CP Bypass Ended 1230 Chest Closed 1249 an stop data 1257 Recovery or ICU Handoff Abby ent care was transferred to the destination unit staff after review of the patient's medical history, current anesthetic/surgical status and plan, according to the Provider Handoff Checklist. 1300 Stop Meds Name Total Midazolam 5 mg fentaNYL 550 mcg IV Lidocaine 100 mg Propofol 200 mg PHENYLephrine 280 mcg Vecuronium 30 mg Heparin 42,000 Units Protamine 260 mg Insulin Regular Human 6 Units Insulin Regular INF 17.45 Units NORepinephrine INF 1,214 mcg cefTRIAXone 2 g EPINEPHrine INF 428 mcg Vasopressin INF 3.56 Units Vasopressin 1 Units calcium chloride 10% (100 mg/mL) injecti on 500 mg Methylene Blue 20 mL Sodium Chloride 0.9% 1,000 mL Lactated Ringers 500 mL * Agents Name O2 Air N2O Isoflurane (et) * Blood No blood administrations on file. Lines, Drains, and Airways Type Details Placement Removal Colostomy 05/11/13; 2040; descending/sigmoid colostomy; 1 3/4 05/11/132040 by Charles Christensen, GET Incision 01/27/22; 821; midl ine; sternal; vertical 01/27/22821 by Levi Singh RN Incision 01/27/22; 821; Righ t, anterior; thigh; laparoscopic puncture 01/27/22821 by Levi Singh RN Incision 01/27/22; 08; Righ t, anterior, lower; leg; laparoscopic puncture 01/27/22821 by Levi Singh RN Incision 05/11/13; leg; 01/28; 0700 (not present) 05/11/13 0000 by Leti Mandujano RN 01/28/22 0700 by Lis Brennan RN Incision 05/11/13; 0830; abdo men (trocar sites x 4); 01/28/22; 0700 (not present) 05/11/13 0830 by Hortencia Sanchez RN 01/28/22 0700 by Lis Brennan RN Incision 05/11/13; 1534; perirectal; 01/28/22; 0700 (not present) 05/11/13 1534 by Cherri Bryant RN 01/28/22 0700 by Lis Brennan RN Drain/Device Site 05/11/13; 2050; Left ; thigh; collapsible closed device; 01/28/22; 0700 (NOT PRESENT) 05/11/13 2050 by Charles Christensen RN 01/28/22 0700 by Lis Brennan RN Incision 10/29/17; 1005; abdo men; 01/28/22; 0700 (not present) 10/29/17 1005 by Melvin Lu RN 01/28/22 0700 by Lis Brennan RN Drain/Device Site 10/29/17; 1445; Righ t; midline; abdomen; (x2- 15Fr- Sandeep with 100ml Triangle); 01/28/22; 0700 (not present) 10/29/17 1445 by Melvin Lu RN 01/28/22 0700 by Lis Brennan RN Closed/Suction Drain 01/27/22; 1; Inferi or, Proximal, Right; Leg; Bulb; (8mm MARIEL) 01/27/22 0000 by Levi Singh RN 01/28/22 0040 by Jessie Pratt RN Chest Tube 01/27/22; Right; mediastinum; 28fr Straight - Right Anterior Mediastinum; 01/29/22; 0820 01/27/22 0000 by Levi Singh RN 01/29/22 0820 by Lis Brennan RN Chest Tube 01/27/22; Left; mediastinum; 28fr Angled - Left Posterior Mediastinum; 01/29/22; 0820 01/27/22 0000 by Levi Singh RN 01/29/22 0820 by Lis Brennan RN (RETIRED) Peripheral IV Line - Single Lumen 01/27/22; 0650; cephalic vein (lateral side of arm), right; [id number] catheter system; Ultrasound Guidance; Yes - US guidance used but Image NOT saved; 18 gauge, 1 in length, 3/4 in length; Rula RN,VAS; intradermal injection, tolerated well, appears comfortable; 0; infiltrated; 01/29/22; 200901/27/22 0650 by Akila Dahl RN 01/29/222009 by Roberth Camilo RN ETT Mask Ventilation: Difficult (3); ETT Type: Cuffed, Oral; ETT Size: 7.5 mm; Mac Blade: 4; Notes: Asleep, Pre-O2, Stylette; Attempts: 1; Laryngoscopy Grade: 2; ETT Placement Verified By: Auscultation, Capnometry; Secured at Teeth: 23 cm; Inserted by: Ulisses FUNES; Removal Date: 01/28/22; Removal Time: 0701/27/22 0748 by Alicia Gtz MD 01/28/22 0725 by Claudia Hatfield RCP Urethral Catheter 01/27/22; 0800; Need for intraoperative urine output monitoring; indwelling catheter with core temperature probe; hydrophilic coated; 16; inserted at this facility; 1; 10; 10; drainage bag to dependent drainage; per protocol/policy, tubing intact; 01/31/22; 1154 01/27/22 0800 by Levi Singh RN 01/31/22 1154 by Rehan Cuevas RN Arterial Line 01/27/22; 0814; radi al artery, right; 20 gauge; Anatomical Landmarks, Guidewire, Ultrasound Guidance; continuous blood pressure monitoring, frequent blood gas measurement; Ulisses FUNES; Sterile Prep, Sterile Gloves; 01/28/22; 1450 01/27/22 0814 by Alicia Gtz MD 01/28/22 1450 by Lis Brennan, RN (RETIRED) Pulmonary Artery Catheter - Triple Lumen 01/27/22; 0814; Right; internal jugular vein; standard thermodilution catheter; 9 Fr; CVC Bundle Performed; Ulisses FUNES; 01/28/22; 1140 01/27/22 0814 by Alicia Gtz MD 01/28/22 1140 by Lis Brennan, RN (RETIRED) Percutaneous Central Line - Single Lumen 01/27/22; 0814; internal jugular vein, right; introducer; Anatomical Landmarks, Ultrasound Guidance; Yes - US guidance used for evaluation of potential access sites, vessel patency and realtime visualization of needle entry with permanent recording.; 9 Fr; Ulisses FUNES; ALEXA; CVC Bundle Performed; 01/29/22; 1525 01/27/22 0814 by Alicia Gtz MD 01/29/22 1525 by Lis Brennan, RN documented in this encounter Social History Tobacco Use Types Packs/Day Years [...] on file documented as of this encounter OR Notes * Anesthesia Postprocedure Evaluation - Alicia Gtz - 01/27/2022 1:39 PM EST Department of Anesthesiology Post-procedure Note Patient: Reg Salazar Procedure Summary Date: 01/27/22 Room / Location: [facility] OR [address] [place] [address] MAIN OR Anesthesia Start: 723 Anesthesia Stop: 1300 Procedures: @CABG, USING ARTERIAL GRAFT;SINGLE ARTERIAL GRAFT (WRVU 33.75) (N/A Chest) @CABG; 3 VENOUS GRAFTS & ARTERIAL GRAFT (WRVU 10.49) (N/A Chest) ENDOSCOPIC HARVEST VEIN(S) FOR CABG (WRVU 0.31) (N/A Leg) Diagnosis: (CAD) Surgeons: Levi Hinds MD Responsible Provider: Lorie Houser MD Anesthesia Type: general ASA Status: 4 All Anesthesia Providers: Anesthesiologist: Lorie Houser MD Vice President Client Services: Alicia Gtz MD Vitals Value Taken Time BP Temp 36.3 ??C (97.3 ??F) 01/27/22 1310 Pulse 103 01/27/22 1337 Resp 18 01/27/22 1339 SpO2 97 % 01/27/22 1337 Pain Level Vitals shown include unvalidated device data. Patient Location: [facility] Level of Consciousness: Sedated (Pharmacologic/Intentional) Pain Management: Satisfactory Analgesia PONV: None Cardiovascular Status: Hemodynamically Stable Respiratory Status: Intubated/Ventilated Postoperative Fluid Status: Intravascular EUvolemia Possible Anesthetic Complications: NONE apparent at time of evaluation Final Primary Anesthesia Type: General (The anesthetic type performed was the same as planned.) Comments: Transported to [facility] on epinephrine / norepinephrine / vasopressin / propofol / insulin gtts under continuous monitoring with BMV. Full report provided to [facility] RN and team. No immediate anesthetic complications. * Anesthesia Procedure Notes - Alicia Gtz - 01/27/2022 10:44 AM EST Associated Order(s): Arterial Line Placement Arterial Line Placement Procedure Note Date/Time: 01/27/2022 7:25 AM Reason for insertion: invasive blood pressure monitoring and arterial blood gases Procedure Diagnosis: Other (add comment) (unstable angina, CAD) Informed consent obtained: Obtained General Information and Staff Patient location at time of insertion: Operating Room Performed by: Resident/DATA ANALYTICS DEVELOPER: Alicia Gtz MD Second Resident/DATA ANALYTICS DEVELOPER: SRNA: Fellow: Attending Physician: Lorie Houser MD Assessment and Preparation Time out performed and documented: Yes Hand Hygiene performed: Yes Skin prepped with: Chlorhexidine Skin prep agent completely dry at time of first puncture: Yes Mask/eye shield: Yes Sterile gloves: Yes Cap worn: Yes Arterial Line Details Ultrasound guidance used for insertion: yes Gauge: 20 gauge Length: 2 inch Insertion site: Radial artery, right Number of attempts: 2 Sterile dressing: Tegaderm Guide wire used: Yes Diameter: 0.018 inch Findings: Wave form was appropriate and Blood returned appropriately Procedure comments: Initial attempt with landmark-based technique unsuccessful. Second attempt with ultrasound-guided needle placement successful using uvhgpka-mug-vmnoxvy technique. * Anesthesia Procedure Notes - Alicia Gtz - 01/27/2022 10:40 AM EST Associated Order(s): Central Line Placement Central Line Placement Procedure Note Date/Time: 01/27/2022 7:50 AM Procedure Diagnosis: Coronary artery disease, unstable angina Reason for insertion: new central line Informed consent obtained: Obtained General Information and Staff Patient location at time of insertion: Operating Room Performed by: Resident/DATA ANALYTICS DEVELOPER: Alicia Gtz MD Second Resident/DATA ANALYTICS DEVELOPER: SRNA: Fellow: Attending Physician: Lorie Houser MD Assessment and Preparation Time out performed and documented: Yes Hand Hygiene performed: Yes Skin prepped with: Chlorhexidine Skin prep agent completely dry at time of first puncture: Yes Sterile drape: Yes Mask/eye shield: Yes Large sterile gown: Yes Sterile gloves: Yes Cap worn: Yes Central Line Details Ultrasound guidance used for insertion: Yes Kit type used: Arrow Size : 9 Fr Lumens: 1 Catheter length: 10 cm Tunneled/Non tunneled: Non tunneled Insertion site: Jugular (internal) Insertion side: Right Number of attempts: 1 Insertion successful: Yes Catheter sutured at the skin at: 10 cm Sterile dressing: Chlorhexidine Tegaderm Findings: Patient tolerated procedure well and Blood returned appropriately Complications: No complications Procedure comments: Wire position in RA confirmed with ALEXA prior to dilation. * Anesthesia Preprocedure Evaluation - Lorie Houser MD - 01/26/2022 3:05 PM EST Pre-Anesthesia Evaluation for: Reg Salazar a 66 y.o. male. Procedure(s): @CABG, USING ARTERIAL GRAFT;SINGLE ARTERIAL GRAFT (WRVU 33.75) @CABG; 3 VENOUS GRAFTS & ARTERIAL GRAFT (WRVU 10.49) ENDOSCOPIC HARVEST VEIN(S) FOR CABG (WRVU 0.31) Patient Active Problem List Diagnosis Date Noted ??? CAD (coronary artery disease) 01/08/2022 ??? Chest pain, unspecified 12/19/2021 ??? Unstable angina 12/19/2021 ??? Attention to colostomy 11/18/2017 ??? Acute kidney injury 10/31/2017 ??? SBO (small bowel obstruction) 10/27/2017 ??? Ostomy nurse consultation 10/06/2017 ??? Partial small bowel obstruction 08/24/2017 ??? Neurogenic bladder 05/09/2014 ??? Colostomy in place 06/14/2013 ??? Hypertension 05/11/2013 ??? Snoring 05/11/2013 ??? Diabetes mellitus 03/24/2013 ??? Obesity (BMI 35.0-39.9 without comorbidity) 03/24/2013 ??? Rectal cancer 01/09/2013 Past Medical History: Diagnosis Date ??? Angina pectoris ??? Coronary artery disease needs CABG X 4 ??? Diabetes ??? DM (diabetes mellitus) type 2-poorly controlled per patient ??? ED (erectile dysfunction) ??? Gout ??? HTN (hypertension) ??? Hypercoagulable state Protein S deficiency ??? Hyperlipemia ??? Obesity ??? 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 Rectal cancer Past Surgical History: Procedure Laterality Date ??? COLONOSCOPY 12/17/2012 discovered rectal invasive adenocarcinoma ??? NASAL POLYP SURGERY ??? PILONIDAL CYST EXCISION ? ? PRG CATH [facility] LEFT HEART CATH & ARTS W/INJ & ANGIO IMG S&I N/A 12/30/2021 CORONARY ANGIOGRAPHY; W LHC,POSSIBLE PCI performed by Praneeth Malhotra MD at [facility] CATH LABS ??? PRO ADJ TISS XFER SCALP, EXTREM 10.1-30 05/11/2013 ADJ.TISSUE TRANSFER, REARRANGEMENT, 10.1 TO 30 SQ.CM, LEGS performed by Oscar Soto MD at [facility] MAIN OR ??? PRO COLONOSCOPY, DIAGNOSTIC N/A 03/23/2015 COLONOSCOPY, DIAGNOSTIC performed by Bobby Hills MD at [facility] ENDOSCOPY ??? PRO CYSTOSCOPY, INSERT URETERAL STENT 05/11/2013 CYSTO, STENT PLACEMENT INTRAOP, TEMPORARY performed by Mark Khan MD at [facility] MAIN OR ??? PRO EXCLUSION, SMALL BOWEL FROM PELVIS 05/11/2013 @EXCLUSION OF SMALL INTESTINE FROM PELVIS performed by Bobby Hills MD at [facility] OR ??? PRO EXPLORATORY OF ABDOMEN N/A 10/29/2017 @EXPLORATORY LAPAROTOMY, WITH/WITHOUT BIOPSY(S) (WRVU 12.54) performed by Theo Washington MD [facility] OR ??? PRO LAP, SURG PROCTECTOMY W COLOSTOMY 05/11/2013 @LAPAROSCOPIC PROCTECTOMY, COMPLETE, APR W COLOSTOMY performed by Bobby Hills MD at [facility] OR ??? PRO MUSCLE-SKIN FLAP, LEG 05/11/2013 FLAP, MYOCUTANEOUS OR FASCIOCUTANEOUS, LOWER EXTREMITY performed by Oscar Soto MD at [facility] OR ??? PRO OMENTAL FLAP, INTRA-ABDOMINAL 05/11/2013 @OMENTAL FLAP, INTRA-ABDOMINAL performed by Mark Khan MD at [facility] OR ??? PRO REMOVE ABD LYMPH NODES RAD REGNL 05/11/2013 @LYMPHADENECTOMY,ABDOMINAL,REGIONAL,MULTIPLE NODES performed by Bobby Hills MD at [facility] OR ??? PRO REPAIR INCISIONAL HERNIA, REDUCIBLE N/A 10/29/2017 REPAIR INITIAL INCISIONAL OR VENTRAL HERNIA REDUCIBLE (WRVU 11.92) performed by Theo Washington MD at [facility] OR ? ? PRO UNLISTED PX ABD PRTM&OMENTUM N/A 10/29/2017 INCARCERATED PARASTOMAL HERNIA REPAIR (WRVU 11.1) performed by Theo Washington MD at [facility] OR ??? TONSILLECTOMY AND ADENOIDECTOMY ??? VASECTOMY Social History Tobacco Use ??? Smoking status: Former Smoker Quit date: 11/30/1996 Years since quittin.1 ??? Smokeless tobacco: Never Used ??? Tobacco comment: smokes marij Substance Use Topics ??? Alcohol use: Not Currently Comment: seldom Social History Substance and Sexual Activity Drug Use Yes ??? Frequency: 7.0 times per week ??? Types: Marijuana Comment: inhaled Allergies Allergen Reactions ??? Penicillins Rash PAT Penicillin Allergy Risk Assessment 01/07/2022: Low risk penicillin allergy. OK to receive full dose of cefazolin, cefuroxime, or any 3rd or 4th+ generation cephalosporin. Medications: MAR and/or home medications have been reviewed. Physical Exam: Preprocedure Vitals Current as of 01/26/22 1505 No BP, pulse, respiration, SpO2, or temperature recorded. Height: Weight: BMI: IBW: Airway Assessment: Mallampati: II TM distance: >3 FB Neck ROM: full Cardiovascular Assessment: Rhythm: regular Rate: normal Pulmonary Assessment: breath sounds clear to auscultation Dental Assessment: - normal exam Misc Assessment: Other exam findings: Obese Last Filed Perioperative Cognitive Screening Value Time User AD8 Total Score: 0 01/07/2022 4:00 PM Alexus Quiñones RN AD8 Informant: Other Informant 01/07/2022 4:00 PM Alexus Quiñones RN CFS Frailty Score: 3 01/07/2022 4:00 PM Alexus Quiñones RN Anesthesia Plan: ASA 4 general, with a(n) intravenous induction 66 y.o. male remote former smoker (Ht 170 cm, Wt 122 kg, IBW 66.1 kg) with a history of NIDDM2 on SFU / metformin / DPP4i), rectal adenocarcinoma s/p FEB (2012) c/b numerous hernias requiring multiple prior abdominal surgeries, morbid obesity (BMI 42), HTN on lisinopril, HLD on high-intensity statin, ED, gout, protein S deficiency on apixaban, CAD c/b unstable angina (primary sxs exertional dyspnea, CP) who presents for 4vCABG with Dr. Hinds. Past Anesthesia History: - Airway history: previously EMV, G1V with Mac 4 in 2017 - Multiple previous anesthesia exposures without complications NPO status appropriate Allergies / Adverse Rxn: penicillins (rash, low-risk assessment so cleared for 3rd generation cephalosporin) EKG (12/19/2021): NSR, STEs in V1-V3 Lab results: No results for input(s): K, CREATININE, CO2 in the last 72 hours. No results for input(s): HGB, PLATELET in the last 72 hours. No results for input(s): INR, PTT in the last 72 hours. No results for input(s): COVID19 in the last 72 hours. No results for input(s): [id number] in the last 72 hours. Imaging/other studies: Coronary Angio / LHC (12/30/2021) - LVEDP 14 mmHg; 80% distal LMCA stenosis; 70% discrete ostial / severe diffuse distal LAD stenoses with discrete mid-LAD total occlusion; 50% ostial LCX stenosis, discrete total occlusion of proximal OM1; single discrete total occlusion of proximal RCA TTE (12/20/2021) - LVEF 39% with severe apical LV hypokinesis and otherwise mild global hypokinesis, mild LV dilation with cLVH and impaired LV relaxation; normal RV size and systolic function, ePASP33 mmHg; normal biatrial size; mild MR, trace AR / TR PLAN GA / ETT, PIVx1, pre-induction arterial line, post-induction CVL / PA catheter, ALEXA CVCC post-op Discussed concerns with Protein S deficiency and need for possible FFP transfusion--last dose of apixaban 01/24/22. Patient with hx of DVT w/ colorectal surgery as well as DVT approximately 10 years prior to that with limited 6 months of anticoagulation. Consent obtained from patient Region - Intrathoracic Cardiac Informed Consent: Anesthetic plan and risks discussed with patient. Plan discussed with resident. Anesthesia Screening documented in this encounter Plan of Treatment Not on file documented as of this encounter Procedures Procedure Name Priority Date/Time Associated Diagnosis Comments CENTRAL LINE PLACEMENT (ANESTHESIA USE ONLY) Routine 01/27/2022 7:50 AM EST ARTERIAL LINE PLACEMENT (ANESTHESIA USE ONLY) Routine 01/27/2022 7:25 AM EST documented in this encounter Results * Central Line Placement (01/27/2022 7:50 AM EST) Narrative Lorie Houser MD - 01/27/2022 7:50 AM EST Alicia Gtz MD ? 01/27/2022 10:44 AM Central Line Placement Procedure Note Date/Time: ??01/27/2022 7:50 AM Procedure Diagnosis: ??Coronary artery disease, unstable angina Reason for insertion: ??new central line Informed consent obtained: ??Obtained General Information and Staff Patient location at time of insertion: ??Operating Room Performed by: ??Resident/DATA ANALYTICS DEVELOPER: ? Alicia Gtz MD ??Second Resident/DATA ANALYTICS DEVELOPER: ??SRNA: ?Fellow: ?Attending Physician: ? Lorie Houser MD Assessment and Preparation Time out performed and documented: ??Yes Hand Hygiene performed: ?? Yes Skin prepped with: ??Chlorhexidine Skin prep agent completely dry at time of first puncture: ?? Yes Sterile drape: ??Yes Mask/eye shield: ??Yes Large sterile gown: ??Yes Sterile gloves: ??Yes Cap worn: ??Yes Central Line Details Ultrasound guidance used for insertion: ??Yes Kit type used: ??Arrow ?Size : ??9 Fr ?Lumens: ? 1 ?Catheter length: ?? 10 cm Tunneled/Non tunneled: ??Non tunneled Insertion site: ??Jugular (internal) Insertion side: ??Right Number of attempts: ??1 Insertion successful: ??Yes Catheter sutured at the skin at: ??10 cm Sterile dressing: ??Chlorhexidine Tegaderm Findings: ??Patient tolerated procedure well and Blood returned appropriately Complications: ??No complications Procedure comments: Wire position in RA confirmed with ALEXA prior to dilation. Lorie Houser MD ANES INPUT W [facility] ED [facility] * Arterial Line Placement (01/27/2022 7:25 AM EST) Narrative Lorie Houser MD - 01/27/2022 7:25 AM EST Alicia Gtz MD ? 01/27/2022 10:46 AM Arterial Line Placement Procedure Note Date/Time: ??01/27/2022 7:25 AM Reason for insertion: ??invasive blood pressure monitoring and arterial blood gases Procedure Diagnosis: ??Other (add comment) (unstable angina, CAD) Informed consent obtained: ??Obtained General Information and Staff Patient location at time of insertion: ??Operating Room Performed by: ??Resident/DATA ANALYTICS DEVELOPER: ? Alicia Gtz MD ??Second Resident/DATA ANALYTICS DEVELOPER: ??SRNA: ?Fellow: ?Attending Physician: ? Lorie Houser MD Assessment and Preparation Time out performed and documented: ??Yes Hand Hygiene performed: ?? Yes Skin prepped with: ??Chlorhexidine Skin prep agent completely dry at time of first puncture: ?? Yes Mask/eye shield: ??Yes Sterile gloves: ??Yes Cap worn: ??Yes Arterial Line Details Ultrasound guidance used for insertion: yes Gauge: ??20 gauge Length: ??2 inch Insertion site: ??Radial artery, right Number of attempts: ??2 Sterile dressing: ??Tegaderm Guide wire used: ??Yes ?Diameter: ??0.018 inch Findings: ??Wave form was appropriate and Blood returned appropriately Procedure comments: Initial attempt with landmark-based technique unsuccessful. Second attempt with ultrasound-guided needle placement successful using [id number]-[id number] technique. Lorie Houser MD ANES INPUT W LINK ED [facility]GS documented in this encounter Visit Diagnoses Not on filedocumented in this encounter Administered Medications Inactive Administered Medications - up to 3 most recent administrations Medication Order MAR Action Action Date Dose Rate Site calcium chloride 10% (100 mg/mL) injection ONCE PRN, Starting on Thu01/27/22 at 1128, Until Thu01/27/22 at 1301, Intra-Operative (Intra-Procedure), Routine Given 01/27/2022 11:43 AM EST 250 mg Given 01/27/2022 11:39 AM EST 250 mg Given 01/27/2022 11:28 AM EST 0.5 g cefTRIAXone (Rocephin) injection Intravenous, PRN, Starting on Thu01/27/22 at 0819, Until Thu01/27/22 at 1338, Anesthesia Intra-op, Routine Given 01/27/2022 8:19 AM EST 2 g EPINEPHrine (Adrenalin) (8 mcg/mL) in dextrose 5% 250 mL infusion Intravenous, CONTINUOUS PRN, Starting on Thu01/27/22 at 1126, Until Thu01/27/22 at 1338, Anesthesia Intra-op Rate/Dose Change 01/27/2022 11:55 AM EST 4 mcg/min 30 mL/hr Rate/Dose Change 01/27/2022 11:29 AM EST 6 mcg/min 45 mL/ hr New Bag 01/27/2022 11:26 AM EST 4 mcg/min 30 mL/hr fentaNYL (pf) (50 mcg/mL) multi-dose injection Intravenous, PRN, Starting on Thu01/27/22 at 0733, Until Thu01/27/22 at 1338, Anesthesia Intra-op, Routine Given 01/27/2022 12:26 PM EST 100 mcg Given 01/27/2022 8:29 AM EST 100 mcg Given 01/27/2022 8:21 AM EST 100 mcg heparin (porcine) (1,000 units/mL) injection Intravenous, PRN, Starting on Thu01/27/22 at 0846, Until Thu01/27/22 at 1338, Anesthesia Intra-op, Routine Given 01/27/2022 8:46 AM EST 42,000 Un its insulin regular (HumuLIN R,NovoLIN R) (100 unit/mL) injection vial Intravenous, PRN, Starting on Thu01/27/22 at 0848, Until Thu01/27/22 at 1338, Anesthesia Intra-op, Routine Given 01/27/2022 11:18 AM EST 4 Units Given 01/27/2022 8:48 AM EST 2 Units insulin regular (Myxredlin) (1 unit/mL) in sodium chloride 0.9% 100 mL infusion Intravenous, CONTINUOUS PRN, Starting on Thu01/27/22 at 0848, Until Thu01/27/22 at 1338, Anesthesia Intra-op, Routine Rate/Dose Change 01/27/2022 11:59 AM EST 3 Units/hr 3 mL/hr Rate/Dose Change 01/27/2022 11:52 AM EST 1 Units/hr 1 mL/h r Rate/Dose Change 01/27/2022 10:59 AM EST 8 Units/hr 8 mL/h r lactated ringers infusion Intravenous, CONTINUOUS PRN, Starting on Thu01/27/22 at 0724, Until Thu01/27/22 at 1338, Anesthesia Intra-op New Bag 01/27/2022 7:24 AM EST lidocaine (pf) (Xylocaine) (20 mg/mL) 2% injection syringe Intravenous, PRN, Starting on Thu01/27/22 at 0737, Until Thu01/27/22 at 1338, Anesthesia Intra-op, Routine Given 01/27/2022 7:37 AM EST 100 mg methylene blue (Provayblue) (5 mg/mL) injection Intravenous, PRN, Starting on Thu01/27/22 at 1149, Until Thu01/27/22 at 1338, Anesthesia Intra-op Given 01/27/2022 11:53 AM EST 10 mLs Given 01/27/2022 11:49 AM EST 10 mLs midazolam (pf) (Versed) (1 mg/mL) multi-dose injection Intravenous, PRN, Starting on Thu01/27/22 at 0736, Until Thu01/27/22 at 1338, Anesthesia Intra-op, Routine Given 01/27/2022 10:03 AM EST 2 mg Given 01/27/2022 7:33 AM EST 2 mg Given 01/27/2022 7:29 AM EST 1 mg NORepinephrine (Levophed) (16 mcg/mL) in dextrose 5% 250 mL infusion Intravenous, CONTINUOUS PRN, Starting on Thu01/27/22 at 0735, Until Thu01/27/22 at 1338, Anesthesia Intra-op, Routine Rate/Dose Change 01/27/2022 12:14 PM EST 6 mcg/min 22.5 mL/hr Rate/Dose Change 01/27/2022 12:12 PM EST 4 mcg/min 15 mL/ hr Rate/Dose Change 01/27/2022 11:59 AM EST 6 mcg/min 22.5 m L/hr PHENYLephrine in NS (PF) (LEDY-SYNEPHRINE) 0.8 mg/10 mL (80 mcg/mL) multi-dose injection Syrg Intravenous, PRN, Starting on Thu01/27/22 at 0754, Until Thu01/27/22 at 1338, Anesthesia Intra-op, Routine Given 01/27/2022 9:35 AM EST 40 mcg Given 01/27/2022 8:38 AM EST 80 mcg Given 01/27/2022 7:59 AM EST 80 mcg propofoL (Diprivan) 10 mg/mL bolus injection (Anesthesia) Intravenous, PRN, Starting on Thu01/27/22 at 0742, Until Thu01/27/22 at 1338, Anesthesia Intra-op Given 01/27/2022 8:26 AM EST 50 mg Given 01/27/2022 7:42 AM EST 50 mg Given 01/27/2022 7:38 AM EST 100 mg protamine (10 mg/mL) injection Intravenous, PRN, Starting on Thu01/27/22 at 1150, Until Thu01/27/22 at 1338, Anesthesia Intra-op, Routine Given 01/27/2022 11:54 AM EST 230 mg Given 01/27/2022 11:50 AM EST 30 mg sodium chloride 0.9% infusion Intravenous, CONTINUOUS PRN, Starting on Thu01/27/22 at 0724, Until Thu01/27/22 at 1338, Anesthesia Intra-op New Bag 01/27/2022 7:24 AM EST vasopressin (VASOSTRICT) 0.2 units/mL IV infusion (Anesthesia) Intravenous, CONTINUOUS PRN, Starting on Thu01/27/22 at 1131, Until Thu01/27/22 at 1338 New Bag 01/27/2022 11:31 AM EST 0.04 Units/min 12 mL/hr vasopressin (Vasostrict) injection Intravenous, PRN, Starting on Thu01/27/22 at 1138, Until Thu01/27/22 at 1338, Anesthesia Intra-op, Routine Given 01/27/2022 11:38 AM EST 1 Units vecuronium (Norcuron) injection Intravenous, PRN, Starting on Thu01/27/22 at 0739, Until Thu01/27/22 at 1338, Anesthesia Intra-op, Routine Given 01/27/2022 9:30 AM EST 5 mg Given 01/27/2022 8:35 AM EST 5 mg Given 01/27/2022 7:39 AM EST 20 mg documented in this encounter Care Teams [employer] Relationship Specialty Start Date End Date Randa Rosas APRN [address] [place] [id number] PCP - General 12/29/12 04/16/22 documented as of this encounter
--- OUTSIDE RECORDS SUMMARY | 2024-11-18 16:54 | XMS_ITS | Encounter Summary ---
Author Organization [facility] [place] [id number] Care Team Providers Care Director Of Acquisitions Name Role Phone Randa Rosas VALENTIN Primary Care Provider [phone] Reason for Referral * Diagnostic Test (Routine) - Closed Specialty Diagnoses / Procedures Referred By Levyac t Referred To Contact Cardiology Diagnoses S/P CABG x 4 Procedures Echocardiogram Transthoracic Rk Cain PA [facility] [place] [address] [facility] [place] [address] Referral ID Status Reason Start Date Expiration Date V isits Requested Visits Authorized [id number] Closed Specialty Service Requested 01/31/2022 01/31/2023 1 1 Reason for Visit * Auth/Cert Specialty Diagnoses / Procedures Referred By Contac t Referred To Contact Diagnoses CAD (coronary artery disease) Atherosclerotic heart disease of [place] coronary artery with other forms of angina pectoris CAD Procedures PRO CABG, ARTERIAL, SINGLE PRO CABG, ARTERY-VEIN, THREE PRO ENDOSCOPY W/VIDEO-ASST VEIN HARVEST, CABG @CABG, USING ARTERIAL GRAFT;SINGLE ARTERIAL GRAFT (WRVU 33.75) @CABG; 3 VENOUS GRAFTS & ARTERIAL GRAFT (WRVU 10.49) ENDOSCOPIC HARVEST VEIN(S) FOR CABG (WRVU 0.31) Referral ID Status Reason Start Date Expiration Date Visits Re quested Visits Authorized [id number] 1 1 Encounter Details Date Type Department Care Team (Latest Contact Info) Description 01/27/2022 5:37 AM EST - 01/31/2022 12:45 PM EST Hospital [place] [address] Levi Hinds MD S/P CABG x 4; Chest pain, unspecified type Discharge Disposition: Home with VNA Social History Tobacco Use Types Packs/Day Years [...] Sign Reading Time Taken Comments Blood Pressure 125/67 01/31/2022 12:00 PM EST Pulse 116 01/31/2022 12:00 PM EST Temperature 37 ??C (98.6 ??F) 01/31/2022 12: 00 PM EST Respiratory Rate 21 01/31/2022 12:0 0 PM EST Oxygen Saturation 94% 01/31/2022 12: 00 PM EST Inhaled Oxygen Concentration - - Weight 119.3 kg (263 lb 0.1 oz) 01/31/2022 6:00 AM EST Height 170.2 cm (5' 7) 01/27/2022 6:13 AM EST Body Mass Index 41.19 01/27/2022 6:13 AM EST documented in this encounter Discharge Summaries * Rk Cain PA - 01/31/2022 10:27 AM EST Inpatient - Discharge Summary Patient Name: Adrien Cheung Patient Age: 66 y.o. Birthdate: 1955 Language: Moroccan Race: White Ethnicity: Not nor Admit Date: 01/27/2022 Discharge Date: 01/31/22 Attending Physician: Levi Hinds MD Follow-up Recommendations for Providers: ??? Please continue routine management of cardiovascular risk factors including blood pressure, lipids, glucose, etc. ??? Please note any changes to medications. ??? Patient to follow up with Cardiac Surgeon, Dr. Levi Hinds, in 2 weeks with an ECHO and in 4 weeks with a chest x-ray, EKG. Inpatient Provider Contact Information: [facility] [place] of [place] [facility] [place] [address] FAX [phone] Discharge Diagnoses (Hospital Problems) Primary Diagnoses: 01/27/22 s/p cabg x 4 Secondary Diagnoses: Active Hospital Problems Diagnosis ??? CAD (coronary artery disease) Resolved Hospital Problems No resolved problems to display. Other Diagnoses (Chronic Problems): Active Non-Hospital Problems Diagnosis ??? Chest pain, unspecified ??? Unstable angina ??? Attention to colostomy ??? Acute kidney injury ??? SBO (small bowel obstruction) ??? Ostomy nurse consultation ??? Partial small bowel obstruction ??? Neurogenic bladder ??? Colostomy in place ??? Hypertension ??? Snoring ??? Diabetes mellitus ??? Obesity (BMI 35.0-39.9 without comorbidity) ??? Rectal cancer Discharged to: Patient discharged to home Functional and Cognitive Status: At baseline Discharge Conditions/Prognosis: Stable Past Medical History: Diagnosis Date ??? Angina [...] PCI performed by Praneeth Malhotra MD at [facility] CATH LABS ??? PRO ADJ TISS XFER SCALP, EXTREM 10.1-30 05/11/2013 ADJ.TISSUE TRANSFER, REARRANGEMENT, 10.1 TO 30 SQ.CM, LEGS performed by Oscar Soto MD at [facility] OR ??? PRO CABG, ARTERIAL, SINGLE N/A 01/27/2022 @CABG, USING ARTERIAL GRAFT;SINGLE ARTERIAL GRAFT (WRVU 33.75) performed by Levi Hinds MD at [facility] OR ??? PRO CABG, ARTERY-VEIN, THREE N/A 01/27/2022 @CABG; 3 VENOUS GRAFTS & ARTERIAL GRAFT (WRVU 10.49) performed by Levi Hinds MD at [facility] OR ??? PRO COLONOSCOPY, DIAGNOSTIC N/A 03/23/2015 COLONOSCOPY, DIAGNOSTIC performed by Bobby Hills MD at [facility] ENDOSCOPY ??? PRO CYSTOSCOPY, INSERT URETERAL STENT 05/11/2013 CYSTO, STENT PLACEMENT INTRAOP, TEMPORARY performed by Mark Khan MD at [facility] OR ??? PRO ENDOSCOPY W/VIDEO-ASST VEIN HARVEST, CABG N/A 01/27/2022 ENDOSCOPIC HARVEST VEIN(S) FOR CABG (WRVU 0.31) performed by Levi Hinds MD at [facility] OR ??? PRO EXCLUSION, SMALL BOWEL FROM PELVIS 05/11/2013 @EXCLUSION OF SMALL INTESTINE FROM PELVIS performed by Bobby Hills MD at [facility] OR ??? PRO EXPLORATORY OF ABDOMEN N/A 10/29/2017 @EXPLORATORY LAPAROTOMY, WITH/WITHOUT BIOPSY(S) (WRVU 12.54) performed by Theo Washington MD [facility] OR ??? PRO LAP, SURG PROCTECTOMY W COLOSTOMY 05/11/2013 @LAPAROSCOPIC PROCTECTOMY, COMPLETE, APR W COLOSTOMY performed by Bobby Hills MD at [facility] OR ??? PRO MUSCLE-SKIN FLAP, LEG 05/11/2013 FLAP, MYOCUTANEOUS OR FASCIOCUTANEOUS, LOWER EXTREMITY performed by Oscar Soto MD at [facility] OR ??? PRO OMENTAL FLAP, INTRA-ABDOMINAL 05/11/2013 @OMENTAL FLAP, INTRA-ABDOMINAL performed by Mark Khan MD at [facility] MAIN OR ??? PRO REMOVE ABD LYMPH NODES RAD REGNL 05/11/2013 @LYMPHADENECTOMY,ABDOMINAL,REGIONAL,MULTIPLE NODES performed by Bobby Hills MD at [facility] MAIN OR ??? PRO REPAIR INCISIONAL HERNIA, REDUCIBLE N/A 10/29/2017 REPAIR INITIAL INCISIONAL OR VENTRAL HERNIA REDUCIBLE (WRVU 11.92) performed by Theo Washington MD at [facility] MAIN OR ? ? PRO UNLISTED PX ABD PRTM&OMENTUM N/A 10/29/2017 INCARCERATED PARASTOMAL HERNIA REPAIR (WRVU 11.1) performed by Theo Washington MD at [facility] MAIN OR ??? TONSILLECTOMY AND ADENOIDECTOMY ??? VASECTOMY Prior To Admission Medications Facility-Administered Medications Prior to Admission Medication Dose Route Frequency Provider Last Rate Last Admin ??? diatrizoate meglumine (HYPAQUE, CYSTOGRAFIN) urethral solution 300 mL 300 mL Urethral Once PRN Junie Dominguez MD Medications Prior to Admission Medication Sig Dispense Refill Last Dose ??? nitroGLYcerin (Nitrostat) 0.4 mg Tablet, Sublingual Place 0.4 mg under the tongue as needed. 01/27/2022 at Unknown time ??? aspirin 81 mg Tablet, Chewable Take 81 mg by mouth daily. 01/24/2022 at Unknown time ??? apixaban (ELIQUIS) 5 mg Tablet Take 1 tablet by mouth 2 times daily. 30 tablet 2 01/24/2022 at Unknown time ??? JANUMET 50-1,000 mg Tablet Take 1 tablet by mouth 2 times daily. 01/24/2022 at Unknown time ??? lisinopril (PRINIVIL;ZESTRIL) 10 mg tablet Take 10 mg by mouth 2 times daily. 01/24/2022 at Unknown time ??? atorvastatin (LIPITOR) 40 mg tablet Take 20 mg by mouth daily. / tab= 20mg 01/24/2022 at Unknown time ??? glipiZIDE (GLUCOTROL) 10 mg 24 hr tablet Take 10 mg by mouth 2 times daily. 01/24/2022 at Unknown time ??? multivitamin (THERAGRAN) tablet Take 1 tablet by mouth daily. 01/24/2022 at Unknown time ??? chlorhexidine (HIBICLENS) 4 % Liquid Apply topically daily as needed. Shower from head to toe with Chlorhexidine the night before surgery . 120 mL 0 ??? ONE TOUCH DELICA 33 gauge Misc ??? ONETOUCH ULTRA TEST Strip ??? ibuprofen (ADVIL;MOTRIN) 600 mg Tablet Take 1 tablet by mouth every 6 hours. 30 tablet 12 More than a month at Unknown time Updated Allergies/ADRs: Allergies Allergen Reactions ??? Penicillins Rash PAT Penicillin Allergy Risk Assessment 01/07/2022: Low risk penicillin allergy. OK to receive full dose of cefazolin, cefuroxime, or any 3rd or 4th+ generation cephalosporin. History of Presentation: Adrien Cheung is a 66 y.o. male with PMH of obesity, DM2, HTN, HLD, and history of rectal cancer s/p colostomy 2008 which was complicated by DVT (on chronic eliquis) who was referred by his primary care provider for progressively worsening exertional chest pain. Major Procedures/Operations: 01/27/22 CABG times 4: JONES to LAD, SVG to diag and om, SVG to rca. Endoscopic vein harvest Hospital Course: CABG x 4 Adrien Cheung was admitted to [facility] on 01/27/2022 via the Same Day Program. He was brought to the operating room where Dr. Levi Hinds performed coronary artery bypass grafting. He tolerated the procedure and was brought to the Cardiovascular Intensive Care Unit for recovery. He initially required the pharmacologic support of intravenous epinephrine and levophed. He was extubated from the ventilator on the day of surgery. All drips were weaned to off. Routine postoperative and home medications were started and a diet was advanced. Aspirin 81mg daily was started. Statin therapy was continued. He was started on beta blockade and this was optimized. Diuretics were started and he responded appropriately. He was transferred to the Intermediate Cardiac Care Unit for continued rehabilitation. All tubes, lines, and epicardial pacing wires were removed without incident. He self caths at baseline and his aguilar remained in until time of discharge at which time he will resume his home regimen Post-op Atrial Fibrillation He developed atrial fibrillation post-operative and was loaded with amiodarone for rhythm control. He will continue on amiodarone for 1 month until follow up with cardiac surgery. Coumadin was not started as he had a single episodes of atrial fibrillation. He was in SR at the time of discharge. NIDDM His glucose initially managed with an insulin gtt, he was transitioned to SSI and eventually to hishome regimen He was seen by Physical Therapy and [...] a regular diet with a functioning colostomy. Vital Signs at Discharge: Last set of vitals: BP 122/65 Pulse 94 Temp 37 ??C (98.6 ??F) (Oral) Resp 15 Ht 170.2 cm (5' 7) Wt 119.3 kg (263 lb 0.1 oz) SpO2 93% BMI 41.19 kg/m?? Patient Vitals for the past 168 hrs: Weight 01/31/22 0600 119.3 kg (263 lb 0.1 oz) 01/30/22 0600 124.1 kg (273 lb 9.5 oz) 01/28/22 0400 126.8 kg (279 lb 8.7 oz) 01/27/22 0613 119 kg (262 lb 4.8 oz) Current weight: 119.3 kg Admit/Preop weight: 119 kg Pertinent physical exam findings prior to discharge: General: Reclined in chair, conversant, pleasant Neuro: Awake and alert. CN II-XII grossly intact, moves all extremities with equal strength Lungs: CTA, faint due to body habitus Heart: Reg, SR on tele Abdomen: Soft, NTND Ext: WWP, no edema Incisions: CDI without drainage or crepitus Important Studies and Lab Data: Lab Results Component Value Date WBC 14.7 (H) 01/30/2022 RBC 3.58 (L) 01/30/2022 HGB 11.2 (L) 01/30/2022 HCT 33.0 (L) 01/30/2022 PLATELET 220 01/30/2022 Recent Labs 01/27/22 1157 INR 1.3 Lab Results Component Value Date NA 139 01/30/2022 K 4.0 01/31/2022 CL 100 01/30/2022 CO2 Not Perf 01/30/2022 BUN 9 (L) 01/30/2022 CREATININE 0.66 (L) 01/30/2022 Immunizations Given this Hospitalization: Immunization History Administered Date(s) Administered ??? Influenza Vaccine PF, Quadrivalent 11/05/2017 Smoking Status at Discharge: Social History Tobacco Use Smoking Status Former Smoker ??? Quit date: 11/30/1996 ??? Years since quittin.1 Smokeless Tobacco Never Used Tobacco Comment [facility] Data Medications: Pre-operative beta niyah? Not given Discharge beta niyah? Given Discharge lipid therapy? Given Discharge anti-platelet therapy? Given Discharge Medications: Your Medications New Medications Dose Details acetaminophen 500 mg Tab Commonly known as: Tylenol Take 2 tablets by mouth every 6 hours as needed for Pain. 1,000 mg Refills: 0 AMIOdarone 200 mg Tab Commonly known as: Paceron Take 1 tablet by mouth 2 times daily. 200 mg Quantity: 60 tablet Refills: 0 furosemide 20 mg Tab Commonly known as: Lasix Take 1 tablet by mouth daily. 20 mg Quantity: 30 tablet Refills: 3 metoprolol tartrate 50 mg Tab Commonly known as: Lopressor Take 1 tablet by mouth 2 times daily. 50 mg Quantity: 180 tablet Refills: 3 oxyCODONE 5 mg Tab Commonly known as: Roxicodone Take 1 tablet by mouth every 4 hours as needed for Pain. 5 mg Quantity: 20 tablet Refills: 0 potassium chloride ER 10 mEq Tbsr Commonly known as: K-Dur/Klor-Con Take 1 tablet by mouth daily. 10 mEq Quantity: 30 tablet Refills: 3 Continued medications, unchanged Dose Details apixaban 5 mg Tab Commonly known as: Eliquis Take 1 tablet by mouth 2 times daily. 5 mg Quantity: 30 tablet Refills: 2 aspirin 81 mg Chew Take 81 mg by mouth daily. 81 mg Refills: 0 atorvastatin 40 mg Tab Commonly known as: Lipitor Take 20 mg by mouth daily. 1/2 tab= 20mg 20 mg Refills: 0 glipiZIDE XL 10 mg Tr24 Commonly known as: Glucotrol XL Take 10 mg by mouth 2 times daily. 10 mg Refills: 0 Janumet 50-1,000 mg Tab Take 1 tablet by mouth 2 times daily. Generic drug: sitaGLIPtin-metFORMIN 1 tablet Refills: 0 multivitamin Tab Commonly known as: THERAGRAN Take 1 tablet by mouth daily. 1 tablet Refills: 0 nitroGLYcerin 0.4 mg Subl Commonly known as: Nitrostat Place 0.4 mg under the tongue as needed. 0.4 mg Refills: 0 One Touch Delica 33 gauge Misc Generic drug: lancets Refills: 0 OneTouch Ultra Test Strp Generic drug: blood sugar diagnostic strips Refills: 0 STOPPED Medications chlorhexidine 4 % Liqd Commonly known as: HIBICLENS ibuprofen 600 mg Tab Commonly known as: Advil lisinopriL 10 mg Tab Commonly known as: Zestril Cardiac Surgery Discharge Instructions: Call your doctor if: You have a fever of greater than 101 degrees, shaking chills, if you develop redness or drainage from your incision sites, or if you have questions. Please call your surgeon's office if you have any discharge or drainage from your chest incision. Your surgeon, Dr. Levi Hinds and/or the Cardiac Surgery Physician Follow Up Clerk Team may be reached at . Weight: Weigh yourself daily. Please call the office if you notice increasing weight, increasing fluid retention (edema), and/or SOB. Sternal (breast bone) precautions: No lifting greater than 7-10 pounds; no pushing or pulling with upper extremities; no excessive chest stretching for the first 4 weeks. Further instructions will begiven to you at your follow-up appointment. Activity level: Walk three times a day. You should continue to increase your walks by 1-2 minutes each day. It is expected that you will be walking 20-30 minutes twice a day within 3-4 weeks after discharge to home. Rest between activities and after meals. Use common sense, don't exhaust yourself. Biking: You may use a stationary bicycle whenever you are comfortable enough to permit this. Tighten the resistance slightly. Increase the amount of time on the bicycle as you would do for your walks, a minute or two each day. No biking outside until after your return appointment with Dr. Levi Chappell. You may use a [place] or treadmill but avoid any pulling motion with the arms. Home activities: You may do light housework, e.g. dusting, setting the table, washing dishes, preparing a meal. Light carpentry and gardening are allowed. Avoid trying to open tight jars and stuck windows. No vacuuming, mopping, raking, shoveling, digging or hoeing until after your return visit with the surgeon. Sexual activity: You may engage in sexual activity when you feel ready. Use a position that protects your sternum (breastbone). Do not have your partner lie on your chest. Stairs: There are no restrictions on stair climbing. Use common sense. Don't exhaust yourself. Activities outside the home: After the first week home you may go out to dinner, visit friends, go to a movie, go to [employer], etc. Heavy activities: No hunting, skiing, jogging, snow shoveling, snowmobiling, lawn mowing, swimming,golf or tennis until after your return appointment with the surgeon. Do not ride motorcycles, [employer]ors or horses. Avoid the use of a rifle with kickback against the shoulder for six months. Sleep: Try to establish normal sleep patterns. Long naps during the day may make it hard for you tosleep at night. Use the pain medication at bedtime for the first week at home. Smoking: It is very important that you not smoke after surgery. Smoking cessation education was provided as appropriate. If you need further assistance with this please call and you will be referred to a smoking cessation specialist. Medications: Take only those medications listed on your discharge information. Keep your pain undercontrol so you can be active, do your coughing and breathing exercises and sleep. Contact us if thepain medication isn't working for you. Do not take any herbal preparations until after you return to see the surgeon. Special Physician Instructions: DO NOT USE ANY IBUPROFEN (ADVIL, MOTRIN, ETC) OR OTHER NSAIDS (NONSTEROIDAL ANTI-INFLAMMATORY DRUGS) FOR A TOTAL OF 10 DAYS AFTER SURGERY. PLEASE CONTACT THE CARDIOTHORACIC SURGERY OFFICE IF YOU HAVE QUESTIONS ABOUT WHICH DRUGS YOU SHOULD NOT USE. . Diet: You should follow a regular diet until your appetite returns to normal. At that point in timeyou should resume a low fat, low cholesterol, [place] Heart [employer] Diet/Diabetic diet. Driving: No driving until cleared by your surgeon. Avoid long trips if possible. If you must go on a long trip, stop the car and walk every hour. Shower/Bath: You may shower daily. No baths, soaking, or swimming until cleared by your surgeon. Wound care: Wash your incisions daily with soap and rinse well, pat dry. Assess for any signs of infection such as increased redness, pain, warmth or drainage. Please call your surgeon's office if you have any discharge or drainage from your chest incision. If there is a lot of swelling, apply danny wraps during the day and remove at bedtime. Elevate your legs when you are sitting. REMOVE CHEST TUBE SUTURES ON OR AFTER 02/11/22 Home oxygen therapy: N/A Follow up appointments: ??? You should follow up with your PCP, Randa Rosas APRN, in 1-2 weeks. ??? You have an appointment with your Cardiac Surgeon, Dr. Levi Hinds, with a chest x-ray, EKG before your appointment. Cardiac Rehabilitation: He will be referred to cardiac rehab at his local hospital Future Appointments and Orders Future Appointments and Orders Future Appointments Provider Department Dept Phone 02/11/2022 8:30 AM ECHO REGULAR Non-Invasive Cardiology Lab [facility] Arrive at: Civil Service Clerk Area [phone] 02/11/2022 10:50 AM Levi Hinds MD Cardiac Surgery at [facility] [place] Arrive at: Civil [employer] Clerk Area [phone] 03/04/2022 9:45 AM [facility] DX ROOM 9 XRay at [facility] Arrive at: Civil Service Clerk Area [phone] Please go to Civil Service Clerk Area ([place] Location). 03/04/2022 11:10 AM Levi Hinds MD Cardiac Surgery at [facility] Arrive at: Civil Service Clerk Area [phone] Future Orders Complete By Expires Echocardiogram Transthoracic [13441 CPT(R)] As directed Process Instructions: Scheduling Instructions: Comments: Evaluate for pleural effusion Questions: Where will study be performed?: [facility] Clinics Is a Bubble Study requested?: Does the patient have Congenital Heart Disease?: Does patient require sedation?: GA rationale: Referral to Home Health - at DISCHARGE [WFG2484 CPT(R)] As directed Process Instructions: Scheduling Instructions: Comments: DOCUMENTATION FOR VNA SERVICES (INCLUDING THOSE PATIENTS WITH MEDICARE COVERAGE REQUIRING HOME VNA SERVICES AND/OR HOSPICE SERVICES) PATIENT'S LOCATION: [place] [address] (home) Shank Archer's Name: Self In discussion with the attending physician, it is certified that this patient is under their care and that they, or a Nurse Practitioner, or Physician Follow Up Clerk who is working directly with them, hada face to face encounter that meets the physician face to face encounter requirements with this patient on 01/31/22 The encounter with the patient was in whole, or in part, for the following medical condition, whichis the primary reason for home health care services: s/p cabg In discussion with the provider, it is certified that, based on their findings, the following services are medically necessary for home health services. To provide the following care/treatments with the clinical findings supporting the need for services as follows: HOME HEALTH AGENCY:[facility] PHONE: [phone] FAX: [phone] RN orders: Cardiopulmonary assessment, incisional assessment, assess vital signs, assessment of rehab progress, medication management and effectiveness, home safety evaluation. PT ORDERS: Continue rehab for endurance, gait stability and strength with mobility and transfers. Home safety evaluation. Home exercise program if appropriate. Start of Care Date:24-48 hrs post discharge SPECIAL INSTRUCTIONS: For any follow up questions, needs, or issues please call the Cardiac SurgeryOffice at [phone] FOR MEDICARE ONLY: In discussion with the attending physician, it is certified that the clinical findings support thatthis patient is homebound i.e. absences from home require considerable and taxing effort due to: Restricted mobility and poor activity tolerance due to recent cardiac surgery. Patient requires assistance of one person to leave the home. Home Health agencies which cover the area of patient's residence have been reviewed, either verbally or in writing, and patient/family have chosen the agency as noted. Questions: Agency name and contact information: [facility] Patient location post discharge: home What services are requested: Registered Nurse Physical Therapy Start date: Responsible MD post discharge contact info: PCP and Dr Hinds Arrangements for VNA/home care: As above. VN RN OR PCP TO PLEASE REMOVE CHEST TUBE SUTURES ON OR AFTER 02/11/22 Signed: Rk Cain PA-C [facility] [place] [facility] [place] [address] FAX [phone] Date: 01/31/2022 CC: VALENTIN Naylor Christie, APRN [address] [place] [address] documented in this encounter Discharge Instructions * Patient Instructions* Rk Cain PA - 01/31/2022 11:41 AM EST Cardiac Surgery Discharge Instructions: Call your doctor if: You have a fever of greater than 101 degrees, shaking chills, if you develop redness or drainage from your incision sites, or if you have questions. Please call your surgeon's office if you have any discharge or drainage from your chest incision. Your surgeon, Dr. Levi Hinds and/or the Cardiac Surgery Physician Follow Up Clerk Team may be reached at . Weight: Weigh yourself daily. Please call the office if you notice increasing weight, increasing fluid retention (edema), and/or SOB. Sternal (breast bone) precautions: No lifting greater than 7-10 pounds; no pushing or pulling with upper extremities; no excessive chest stretching for the first 4 weeks. Further instructions will begiven to you at your follow-up appointment. Activity level: Walk three times a day. You should continue to increase your walks by 1-2 minutes each day. It is expected that you will be walking 20-30 minutes twice a day within 3-4 weeks after discharge to home. Rest between activities and after meals. Use common sense, don't exhaust yourself. Biking: You may use a stationary bicycle whenever you are comfortable enough to permit this. Tighten the resistance slightly. Increase the amount of time on the bicycle as you would do for your walks, a minute or two each day. No biking outside until after your return appointment with Dr. Levi Chappell. You may use a [place] or treadmill but avoid any pulling motion with the arms. Home activities: You may do light housework, e.g. dusting, setting the table, washing dishes, preparing a meal. Light carpentry and gardening are allowed. Avoid trying to open tight jars and stuck windows. No vacuuming, mopping, raking, shoveling, digging or hoeing until after your return visit with the surgeon. Sexual activity: You may engage in sexual activity when you feel ready. Use a position that protects your sternum (breastbone). Do not have your partner lie on your chest. Stairs: There are no restrictions on stair climbing. Use common sense. Don't exhaust yourself. Activities outside the home: After the first week home you may go out to dinner, visit friends, go to a movie, go to methodist, etc. Heavy activities: No hunting, skiing, jogging, snow shoveling, snowmobiling, lawn mowing, swimming,golf or tennis until after your return appointment with the surgeon. Do not ride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 12:05 PM EST POCT GLUCOSE Routine 01/29/2022 11:08 AM EST POCT GLUCOSE Routine 01/29/2022 10:08 AM EST POCT GLUCOSE Routine 01/29/2022 7:49 AM EST POCT GLUCOSE Routine 01/29/2022 6:07 AM EST HC POTASSIUM Routine 01/29/2022 4:10 AM EST POCT GLUCOSE Routine 01/29/2022 4:07 AM EST POCT GLUCOSE Routine 01/29/2022 2:04 AM EST POCT GLUCOSE Routine 01/29/2022 12:10 AM EST POCT GLUCOSE Routine 01/28/2022 10:09 PM EST POCT GLUCOSE Routine 01/28/2022 9:14 PM EST POCT GLUCOSE Routine 01/28/2022 7:54 PM EST POCT GLUCOSE Routine 01/28/2022 6:08 PM EST POCT GLUCOSE Routine 01/28/2022 4:04 PM EST POCT GLUCOSE Routine 01/28/2022 1:44 PM EST POCT GLUCOSE Routine 01/28/2022 12:12 PM EST POCT GLUCOSE Routine 01/28/2022 10:40 AM EST POCT GLUCOSE Routine 01/28/2022 10:11 AM EST POCT GLUCOSE Routine 01/28/2022 9:05 AM EST POCT GLUCOSE Routine 01/28/2022 7:40 AM EST EXTUBATE Routine 01/28/2022 7:17 AM EST POCT GLUCOSE Routine 01/28/2022 6:58 AM EST BLOOD GAS ARTERIAL POC Routine 01/28/2022 6:27 AM EST POCT GLUCOSE Routine 01/28/2022 5:56 AM EST HC HEMOGRAM Routine 01/28/2022 5:20 AM EST XR CHEST ONE VIEW STAT 01/28/2022 5:1 9 AM EST POCT GLUCOSE Routine 01/28/2022 5:18 AM EST POCT GLUCOSE Routine 01/28/2022 4:03 AM EST POCT GLUCOSE Routine 01/28/2022 3:07 AM EST BLOOD GAS ARTERIAL POC Routine 01/28/2022 3:07 AM EST HC TROPONIN T Routine 01/28/2022 3:05 AM EST BASIC METABOLIC PANEL Routine 01/28/2022 3:05 AM EST POCT GLUCOSE Routine 01/28/2022 2:05 AM EST POCT GLUCOSE Routine 01/28/2022 12:57 AM EST POCT GLUCOSE Routine 01/27/2022 11:58 PM EST POCT GLUCOSE Routine 01/27/2022 11:10 PM EST HC POTASSIUM Routine 01/27/2022 11:10 PM EST BLOOD GAS ARTERIAL POC Routine 01/27/2022 10:30 PM EST RAPID COVID-19 PCR ([facility]) Routine 01/27/2022 9:01 PM EST BLOOD GAS ARTERIAL POC Routine 01/27/2022 7:45 PM EST BLOOD GAS ARTERIAL POC Routine 01/27/2022 6:12 PM EST HC HEMOGLOBIN, BLOOD Routine 01/27/2022 6:10 PM EST HC POTASSIUM Routine 01/27/2022 6:10 PM EST BLOOD GAS ARTERIAL POC Routine 01/27/2022 4:53 PM EST XR CHEST ONE VIEW Routine 01/27/2022 4:0 9 PM EST LUNG RECRUITMENT MANEUVER Routine 01/27/2022 3:06 PM EST BLOOD GAS ARTERIAL POC Routine 01/27/2022 3:01 PM EST LUNG RECRUITMENT MANEUVER Routine 01/27/2022 2:05 PM EST XR CHEST ONE VIEW STAT 01/27/2022 1:4 5 PM EST BLOOD GAS ARTERIAL POC Routine 01/27/2022 1:44 PM EST ALEXA PRE AND POST OP Routine 01/27/2022 1 :42 PM EST Chest pain, unspecified type EKG 12-LEAD STAT 01/27/2022 1:26 PM EST S/P CABG x 4 BLOOD GAS ARTERIAL POC Routine 01/27/2022 12:03 PM EST HC PLATELET COUNT STAT 01/27/2022 11: 57 AM EST PROTHROMBIN TIME STAT 01/27/2022 11:5 7 AM EST FIBRINOGEN STAT 01/27/2022 11:57 AM EST PLATELET COUNT STAT 01/27/2022 11:57 AM EST HEMOGLOBIN STAT 01/27/2022 11:57 AM EST HEMATOCRIT STAT 01/27/2022 11:57 AM EST BLOOD GAS ARTERIAL POC Routine 01/27/2022 11:13 AM EST HC FIBRINOGEN TITER STAT 01/27/2022 1 1:10 AM EST HC PLATELET COUNT STAT 01/27/2022 11: 10 AM EST HC HEMOGLOBIN, BLOOD STAT 01/27/2022 11:10 AM EST HC HEMATOCRIT, BLOOD STAT 01/27/2022 11:10 AM EST BLOOD GAS ARTERIAL POC Routine 01/27/2022 10:54 AM EST BLOOD GAS ARTERIAL POC Routine 01/27/2022 10:26 AM EST BLOOD GAS ARTERIAL POC Routine 01/27/2022 9:55 AM EST BLOOD GAS ARTERIAL POC Routine 01/27/2022 8:20 AM EST Endoscopy W/Video-Asst Vein [place], Cabg ([id number]) 01/27/2022 7:22 AM EST CAD Cabg, Artery-Vein, Three ([id number]) 01/27/2022 7:22 AM EST CAD Cabg, Arterial, Single ([id number]) 01/27/2022 7:22 AM EST CAD PREPARE RBC STAT 01/27/2022 6:35 AM EST POCT GLUCOSE Routine 01/27/2022 6:29 AM EST documented in this encounter Results * ECHO COMPLETE W CONTRAST (02/11/2022 9:40 AM EDT) EF 35 HEARTLAB SYSTEM Anatomical Region Laterality Modality Other 02/11/2022 7:44 AM EDT Narrative 02/11/2022 9:48 AM EDT ?[facility] ?[address] ? [place] [address] ?Voice: ?Fax: ? Echocardiogram Report Name: ADRIEN CHEUNG ? Study Date: 02/11/2022 07:44 AMBP: 139/70 mmHg ? Patient Location: 4A 0000 ? HR: 66 : 1955 ? Height: 170 cm ? Account: [id number] Age: 66 yrs ? Weight: 119 kg Gender: Male ?BSA: 2.3 m2 Ordering Physician: LEVI HINDS Referring Physician: RK CAIN Performed By: Abe Corbin RDCS Reason For Study: S/P CABG Exam Location: [facility]. Interpretation Summary 1. Left ventricle is moderately [...] report from 12/20/2021, the findings are similar. Procedure Complete-[id number]. *. Image enhancement Optison was used for both Doppler and ventricular definition. Suboptimal quality. Left Ventricle No membranous ventricular septal defect. Wall thickness is normal. Left ventricle is moderately dilated. Left ventricular systolic function is moderately reduced. The left ventricular ejection fraction is 35% by Navarro's biplane. Moderate global hypokinesis. Right Ventricle The right ventricle is of normal size. Right ventricular systolic function is normal. Left Atrium The left atrium is normal. There is no evidence for a patent foramen ovale. Right Atrium The right atrium is normal. Aortic Valve The aortic valve is structurally normal. There is no aortic stenosis. There is trace aortic regurgitation. Mitral Valve The mitral valve is structurally and functionally normal. There is mild mitral regurgitation. Tricuspid Valve The tricuspid valve is structurally normal. There is mild tricuspid regurgitation. Pulmonic Valve The pulmonic valve appears to be structurally and functionally normal. Great Arteries The aortic root is of normal size. No abnormalities are identified. Venous Inferior vena cava is normal in size. Inferior vena cava collapse greater than 50% with respiration. Pericardium/Pleural The pericardium appears normal. Hemodynamics Left ventricular diastolic function is normal. Left ventricular filling pressure is normal. Ejection Fraction ?2D Measurements ? Volumes LV Biplane EF: 35.5 % ? IVSd: 1.1 cm ? LA Volume Index: ?LVIDd: 6.1 cm ?LVIDs: 5.1 cm ?31.4 ml/m2 ?LVPWd: 1.1 cm ?EDV Biplane: 193.4 ml ? EDV Biplane Index: 85.3 ?LV mass(C)d: 281.0 grams ? ESV Biplane: 124.8 ml ?LV mass(C)dI: 123.9 grams/m2 ?? ESV Biplane Index: 55.0 ?Ao root diam: 3.2 cm ?Ao root diam index: 1.4 ?asc Aorta Diam: 3.5 cm ?LVOT diam: 2.1 cm Doppler TR max madeleine: 260.7 cm/sec Ao valve max: 8.7 mmHg MV E max madeleine: 101.0 cm/sec MV A max madeleine: 95.8 cm/sec MV E/A: 1.1 MV dec time: 0.31 sec Lat Peak E' Madeleine: 9.3 cm/sec E/ e' (lat): 10.9 Med Peak E' Madeleine: 6.7 cm/sec E/e' (med): 15.2 E/e' Average: 13.0 I ?WMSI = 2.31 ? % Normal = 0 ?Segments ??Size X - Cannot ?2 - ?4 - ?1-2 ? small Interpret ?1 - Normal ?? Hypokinetic 3 - Akinetic Dyskinetic ?? 3-5 ? moderate 5 - ? 6-14 ?large Aneurysmal ?15-16 ?? diffuse Procedure Note Yoandy Wheatley MD - 02/11/2022 [facility] [address] [place] [address] Voice: Fax: Echocardiogram Report Name: ADRIEN CHEUNG Study Date: 207:44 AMBP: 139/70 mmHg Patient Location: [facility] HR: 66 : 1955 Height: 170 cm Account: [id number] Age: 66 yrs Weight: 119 kg Gender: Male BSA: 2.3 m2 Ordering Physician: LEVI HINDS Referring Physician: RK CAIN Performed By: Abe Corbin RDCS Reason For Study: S/P CABG Exam Location: [facility]. Interpretation Summary 1. Left ventricle is moderately dilated. Left ventricular systolicfunction is moderately reduced. The left ventricular ejection fraction is 35% bySimpson's biplane. There are regional wall motion abnormalities including akinesisat the mid anteroseptum and apex. Other segments are hypokinetic. 2. No significant valvular abnormalities. 3. Other details as noted below. 4. As compared to the prior echo report from 12/20/2021, the findings aresimilar. Procedure Complete-[id number]. *. Image enhancement Optison was used for both Dopplerand ventricular definition. Suboptimal quality. Left Ventricle No membranous ventricular septal defect. Wall thickness is normal. Leftventricle is moderately dilated. Left ventricular systolic function is moderatelyreduced. The left ventricular ejection fraction is 35% by Navarro's biplane.Moderate global hypokinesis. Right Ventricle The right ventricle is of normal size. Right ventricular systolic functionis normal. Left Atrium The left atrium is normal. There is no evidence for a patent foramenovale. Right Atrium The right atrium is normal. Aortic Valve The aortic valve is structurally normal. There is no aortic stenosis.There is trace aortic regurgitation. Mitral Valve The mitral valve is structurally and functionally normal. There is mildmitral regurgitation. Tricuspid Valve The tricuspid valve is structurally normal. There is mild tricuspidregurgitation. Pulmonic Valve The pulmonic valve appears to be structurally and functionally normal. Great Arteries The aortic root is of normal size. No abnormalities are identified. Venous Inferior vena cava is normal in size. Inferior vena cava collapse greaterthan 50% with respiration. Pericardium/Pleural The pericardium appears normal. Hemodynamics Left ventricular diastolic function is normal. Left ventricular fillingpressure is normal. Ejection Fraction 2D Measurements Volumes LV Biplane EF: 35.5 % IVSd: 1.1 cm LA VolumeIndex: LVIDd: 6.1 cm LVIDs: 5.1 cm 31.4 ml/m2 LVPWd: 1.1 cm EDV Biplane:193.4 ml EDV BiplaneIndex: 85.3 LV mass(C)d: 281.0 grams ESV Biplane:124.8 ml LV mass(C)dI: 123.9 grams/m2 ESV BiplaneIndex: 55.0 Ao root diam: 3.2 cm Ao root diam index: 1.4 asc Aorta Diam: 3.5 cm LVOT diam: 2.1 cm Doppler TR max madeleine: 260.7 cm/sec Ao valve max: 8.7 mmHg MV E max madeleine: 101.0 cm/sec MV A max madeleine: 95.8 cm/sec MV E/A: 1.1 MV dec time: 0.31 sec Lat Peak E' Madeleine: 9.3 cm/sec E/ e' (lat): 10.9 Med Peak E' Madeleine: 6.7 cm/sec E/e' (med): 15.2 E/e' Average: 13.0 I WMSI = 2.31 % Normal = 0 SegmentsSize X - Cannot 2 - 4 - 1-2small Interpret 1 - Normal Hypokinetic 3 - Akinetic Dyskinetic 3-5moderate 5 - 6-14large Aneurysmal 15-16diffuse Levi Hinds MD ECHO ORDERABLES * (ABNORMAL) POCT Glucose (01/31/2022 11:41 AM EST) Glucose, POC 239(H) 65 - 199 mg/dL [facility] Comment: Supplemental ranges: <140 mg/dL before meals <180 mg/dL all other times of the day Blood 01/31/2022 11:4 1 AM EST 01/31/2022 11:41 AM EST Levi Hinds MD POINT OF CARE TEST ORDERABLES [facility] [place] [place] [address] * (ABNORMAL) POCT Glucose (01/31/2022 7:29 AM EST) Glucose, POC 212(H) 65 - 199 mg/dL [facility] Comment: Supplemental ranges: <140 mg/dL before meals <180 mg/dL all other times of the day Blood 01/31/2022 7:29 AM EST 01/31/2022 7:29 AM EST Levi Hinds MD POINT OF CARE TEST ORDERABLES Performing Organization Address [facility] [[email or web address]] Co de Phone Number [facility] [place] [place] [address] * Potassium (01/31/2022 12:55 AM EST) [facility] Signature Potassium 4.0 3.5 - 5.0 mmol/L [facility] Comment: Please note: ??Patients with WBC >100,000 may have falsely elevated Potassium levels. ??For accurate Potassium quantification in these patients send serum separator tube (gold top) for subsequent determinations. ??Contact the Clinical Chemistry Laboratory if there are any questions. Blood 01/31/2022 12:5 5 AM EST 01/31/2022 1:09 AM EST Narrative Resulting Agency Comment Spec In Lab Levi Hinds MD CHEMISTRY ORDERABLE S Performing Organization Address [facility] [[email or web address]] Co de Phone Number [facility] [place] [place] [address] * POCT Glucose (01/30/2022 8:45 PM EST) Glucose, POC 187 65 - 199 mg/dL [facility] Comment: Supplemental ranges: <140 mg/dL before meals <180 mg/dL all other times of the day Blood 01/30/2022 8:45 PM EST 01/30/2022 8:45 PM EST Levi Hinds MD POINT OF CARE TEST ORDERABLES Performing Organization Address City/[facility] [[email or web address]] Co de Phone Number [facility] [place] [place] [address] * POCT Glucose (01/30/2022 5:08 PM EST) Glucose, POC 175 65 - 199 mg/dL [facility] Comment: Supplemental ranges: <140 mg/dL before meals <180 mg/dL all other times of the day Blood 01/30/2022 5:08 PM EST 01/30/2022 5:08 PM EST Levi Hinds MD POINT OF CARE TEST ORDERABLES Performing Organization Address City/[facility]/ZIP Co de Phone Number [facility] [place] [place] [address] * (ABNORMAL) POCT Glucose (01/30/2022 11:16 AM EST) Glucose, POC 206(H) 65 - 199 mg/dL [facility] Comment: Supplemental ranges: <140 mg/dL before meals <180 mg/dL all other times of the day Blood 01/30/2022 11:1 6 AM EST 01/30/2022 11:16 AM EST Levi Hinds MD POINT OF CARE TEST ORDERABLES Performing Organization Address [facility] [[email or web address]] Co de Phone Number [facility] [place] [place] [address] * XR Chest PA & Lateral (Generic) (01/30/2022 7:57 AM EST) Anatomical Region Laterality Modality Chest N/A Digital Radiogra phy Impressions 01/30/2022 9:12 AM EST Improving aeration of the left lower lobe and trace residual pleural effusions. I have personally reviewed the image(s) and the resident's interpretation and agree with the findings, Swetha Bell MD at 01/30/2022 9:12 AM Thank you for letting us participate in the care of this patient. ??If you are a health care provider and have any questions regarding this report, please contact the number below. ??For patients who have questions please contact the health rn medicare that requested your imaging first. ? Narrative 01/30/2022 9:12 AM EST EXAMINATION: XR CHEST PA AND LATERAL (GENERIC) CLINICAL HISTORY: s/p cabg TECHNIQUE: PA and lateral views of the chest COMPARISON: Chest radiograph 01/28/2022 FINDINGS: Interval removal of support devices. Improving aeration in the left lower lobe with some residual atelectasis. The right lung is clear. Trace pleural effusions at the posterior costophrenic angles. No pneumothorax. Stable cardiomediastinal silhouette with median sternotomy wires and mediastinal surgical clips. The pulmonary vascular markings are within normal limits. Procedure Note Swetha Bell MD - 01/30/2022 EXAMINATION: XR CHEST PA AND LATERAL (GENERIC) CLINICAL HISTORY: s/p cabg TECHNIQUE: PA and lateral views of the chest COMPARISON: Chest radiograph 01/28/2022 FINDINGS: Interval removal of support devices. Improving aeration in the left lowerlobe with some residual atelectasis. The right lung is clear. Trace pleuraleffusions at the posterior costophrenic angles. No pneumothorax. Stablecardiomediastinal silhouette with median sternotomy wires and mediastinal surgical clips.The pulmonary vascular markings are within normal limits. IMPRESSION Improving aeration of the left lower lobe and trace residual pleuraleffusions. I have personally reviewed the image(s) and the resident's interpretationand agree with the findings, Swetha Bell MD at 01/30/2022 9:12 AM Thank you for letting us participate in the care of this patient. If youare a health care provider and have any questions regarding this report,please contact the number below. For patients who have questions please contactthe health rn medicare that requested your imaging first. Levi Hinds MD IMG DX ORDERABLES * POCT Glucose (01/30/2022 7:35 AM EST) [facility] Glucose, POC 173 65 - 199 mg/dL [facility] Comment: Supplemental ranges: <140 mg/dL before meals <180 mg/dL all other times of the day Blood 01/30/2022 7:35 AM EST 01/30/2022 7:35 AM EST Levi Hinds MD POINT OF CARE TEST ORDERABLES Performing Organization Address City/[facility]/ZIP Co de Phone Number [facility] [place] [place] [address] * Scan, Peripheral Blood (01/30/2022 6:35 AM EST) [facility] Plat estimate Normal [facility] RBC Morphology Abnormal [facility] Hypochromia Slight [facility] Blood 01/30/2022 6:35 AM EST 01/30/2022 6:42 AM EST Narrative Resulting Agency Comment Spec In Lab Rk BADILLO HEMATOLOGY ORDERABLE S [facility] [place] [address] * (ABNORMAL) Differential, Automated (01/30/2022 6:35 AM EST) [facility] Neutrophil % 75.5 % [facility] Neutrophil Absolute 11.11(H) 1.70 - 6.10 x10(3)/mc L [facility] Lymph % 12.0 % [facility] Lymphocytes Abs 1.8 0.9 - 3.2 x10(3)/mc L [facility] Monocyte % 11.4 % [facility] Monocyte Abs 1.7(H) 0.3 - 0.9 x10(3)/ L [facility] Eos % 0.5 % [facility] Eosinophils Abs 0.1 0.0 - 0.4 x10(3)/ L [facility] Basophil % 0.2 % [facility] Baso Absolute 0.0 0.0 - 0.1 x10(3)/[facility] Immature Gran % 0.40 % [facility] Comment: Immature granulocytes(IG's)percentage and absolute count will include metamyelocytes, myelocytes, and promyelocytes. Blood smears from CBCs yielding IG's will be scanned manually for concordance. If this scan disagrees with the automated IG or if promyelocytes are noted, a manual differential will be performed. Immature Gran Absolute 0.06(H) 0.00 - 0.04 x10(3)/[facility] Blood 01/30/2022 6:35 AM EST 01/30/2022 6:42 AM EST Narrative Resulting Agency Comment Spec In Lab Rk BADILLO HEMATOLOGY ORDERABLE S [facility] [place] [place] [address] * (ABNORMAL) Hemogram (01/30/2022 6:35 AM EST) White Blood Cell 14.7(H) 4.0 - 9.5 x10(3)/[facility] Red Blood Cell 3.58(L) 4.58 - 5.54 x10(6)/[facility] Hemoglobin 11.2(L) 13.7 - 16.5 g/dL [facility] Hematocrit 33.0(L) 40.5 - 48.5 % [facility] Mean Cell Volume 92.2 82.9 - 93.1 fL [facility] Mean Cell Hemoglobin 31.3 27.5 - 32.1 pg [facility] Mean Cell Hemoglobin Concentration 33.9 32.0 - 35.7 g/dL [facility] Platelet 220 145 - 357 x10(3)/mc L [facility] RDW Standard Deviation 46.6(H) 36.0 - 45.0 [facility] RDW coefficient of variation 13.8 11.4 - 13.8 % [facility] Mean Platelet Volume 11.3 7.6 - 12.9 [facility] NRBC% auto 0.0 % [facility] NRBC Absolute 0.000 0.000 - 0.000 x10(3)/mc L [facility] Blood 01/30/2022 6:35 AM EST 01/30/2022 6:42 AM EST Narrative Resulting Agency Comment Spec In Lab Rk BADILLO HEMATOLOGY ORDERABLE S Performing Organization Address City/[facility]/ZIP Co de Phone Number [facility] [place] [address] * POCT Glucose (01/30/2022 5:30 AM EST) Glucose, POC 156 65 - 199 mg/dL [facility] Comment: Supplemental ranges: <140 mg/dL before meals <180 mg/dL all other times of the day Blood 01/30/2022 5:30 AM EST 01/30/2022 5:30 AM EST Levi Hinds MD POINT OF CARE TEST ORDERABLES Performing Organization Address City/[facility]/ZIP Co de Phone Number [facility] [place] [place] [address] * (ABNORMAL) Basic Metabolic Panel (non-fasting) (01/30/2022 4:10 AM EST) Glucose 151 65 - 199 mg/dL [facility] Comment:Diabetes: >=200 mg/d L plus symptoms Blood Urea Nitrogen 9(L) 10 - 20 mg/dL [facility] Creatinine 0.66(L) 0.80 - 1.50 mg/dL [facility] Sodium 139 135 - 145 mmol/L [facility] Potassium Not Perf 3.5 - 5.0 [facility] Comment: Duplicate order Please note: ??Patients with WBC >100,000 may have falsely elevated Potassium levels. ??For accurate Potassium quantification in these patients send serum separator tube (gold top) for subsequent determinations. ??Contact the Clinical Chemistry Laboratory if there are any questions. Chloride 100 98 - 107 mmol/L [facility] Carbon Dioxide Not Perf 22 - 31 [facility] Comment:Add-on request. Samp le too old to perform test. Anion Gap Not Calculated 5 - 15 mmol/L [facility] Comment:Add-on request. Samp le too old to perform test. Calcium 8.3(L) 8.5 - 10.5 mg/dL [facility] Comment:result rechecked- Est Glomerular Filtration Rate 101 >=60 mL/min/1 .73 m?? [facility] Comment: This patient? s estimated glomerular [...] Narrative Resulting Agency Comment Spec In Lab Rk BADILLO CHEMISTRY ORDERABLES [facility] [place] [place] [address] * Potassium (01/30/2022 4:10 AM EST) Pathologist [facility] Potassium 4.2 3.5 - 5.0 mmol/L [facility] Comment: Please note: ??Patients with WBC >100,000 may have falsely elevated Potassium levels. ??For accurate Potassium quantification in these patients send serum separator tube (gold top) for subsequent determinations. ??Contact the Clinical Chemistry Laboratory if there are any questions. Blood 01/30/2022 4:10 AM EST 01/30/2022 4:17 AM EST Narrative Resulting Agency Comment Spec In Lab Levi Hinds MD CHEMISTRY ORDERABLE S [facility] [place] [place] [address] * COVID-19 PCR (01/30/2022 4:09 AM EST) [facility] SARS-CoV-2 RNA Not Detected Not Detected [facility] Comment: This result should be interpreted in combination with the clinical observations, patient history and epidemiological information in making a final diagnosis. For testing of asymptomatic individuals, assay performance characteristics and clinical utility have not been evaluated. Testing for SARS-CoV-2 (Severe acute respiratory syndrome coronavirus 2, formerly known as 2019 novel coronavirus or 2019-nCoV) to aid in the diagnosis of COVID-19 is performed using the E-Blinknity m SARS-CoV-2 Assay as authorized by the FDA Emergency Use Authorization (EUA). This EUA assay is intended for In-vitro Diagnostic (IVD) use with respiratory specimens such as nasopharyngeal swabs collected from individuals during the acute phase of infection. This assay is performed based on the instructions for use provided by [employer] and additional guidance provided by CDC and FDA. Testing is performed in the [facility] within the Department of Pathology and Laboratory Medicine at [facility], certified under the Clinical Laboratory Improvement Amendments of 1988 (CLIA), 42 U.S.C. 263a, to perform high complexity tests. Assay performance has been verified according to clinical laboratory regulatory requirements for use with specimens collected from individuals suspected of COVID-19. Test results are provided above. A result of Not Detected indicates that the viral RNA target is not present above the limit of detection, but does not preclude SARS-CoV-2 infection. False negative results may occur if a specimen is improperly collected, transported or handled; if amplification inhibitors are present; or if inadequate numbers of viral particles are present in the specimen. When a diagnostic test is negative, the possibility of a false negative result should be considered in the context of a patient's recent exposures and the presence of clinical signs and symptoms consistent with COVID-19. A result of Detected indicates that RNA from SARS-CoV-2 was detected and the patient is infected. As required or requested by public health authorities, positive specimens may be sent for additional testing. Positive and negative predictive values for this test are highly dependent on disease prevalence. A result of Invalid indicates that neither the viral RNA targets nor the internal control target was detected. An invalid result suggests the presence of inhibitors. Recollection and re-testing is recommended in the case of an invalid result. CDC COVID-19 criteria for testing on human specimens and clinical management guidance information are available at the CDC Coronavirus Disease 2019 (COVID-19) webpage under Information for Healthcare Professionals (https://www.cdc.gov/coronavirus/2019-ncov/hcp/index.html) Additional information about this and other EUA tests can be found in provider and patient fact sheets at the following FDA website: https://www.fda.gov/medical-devices/whtdvwpkhbc-mgrhgik-2856-neoad-69-gmsmralyc- use-a igtttxdtcttjb-fbtpodj-xgvoinn/sxemh-peivjtamfdm-ipqe SARS-CoV-2 RNA Source CHIEF OPERATOR Swab [facility] Nasopharyngeal Swab 01/31/20 4:09 AM EST 01/30/2022 7:59 AM EST Comment:Symptoms->Surveillan ce Narrative Resulting Agency Comment Spec In Lab Levi Hinds MD MOLECULAR ORDERABLE S [facility] [place] [address] * POCT Glucose (01/30/2022 4:04 AM EST) Glucose, POC 154 65 - 199 mg/dL [facility] Comment: Supplemental ranges: <140 mg/dL before meals <180 mg/dL all other times of the day Blood 01/30/2022 4:04 AM EST 01/30/2022 4:04 AM EST Levi Hinds MD POINT OF CARE TEST ORDERABLES [facility] [place] [address] * POCT Glucose (01/30/2022 2:05 AM EST) Glucose, POC 136 65 - 199 mg/dL [facility] Comment: Supplemental ranges: <140 mg/dL before meals <180 mg/dL all other times of the day Blood 01/30/2022 2:05 AM EST 01/30/2022 2:05 AM EST Levi Hinds MD POINT OF CARE TEST ORDERABLES Performing Organization Address City/[facility]/ZIP Co de Phone Number [facility] [place] [address] * POCT Glucose (01/29/2022 11:53 PM EST) Glucose, POC 170 65 - 199 mg/dL [facility] Comment: Supplemental ranges: <140 mg/dL before meals <180 mg/dL all other times of the day Blood 01/29/2022 11:5 3 PM EST 01/29/2022 11:53 PM EST Levi Hinds MD POINT OF CARE TEST ORDERABLES Performing Organization Address City/[facility] [[email or web address]] Co de Phone Number [facility] [place] [address] * (ABNORMAL) POCT Glucose (01/29/2022 9:29 PM EST) Glucose, POC 206(H) 65 - 199 mg/dL [facility] Comment: Supplemental ranges: <140 mg/dL before meals <180 mg/dL all other times of the day Blood 01/29/2022 9:29 PM EST 01/29/2022 9:29 PM EST Levi Hinds MD POINT OF CARE TEST ORDERABLES Performing Organization Address City/[facility]/ZIP Co de Phone Number [facility] [place] [address] * (ABNORMAL) POCT Glucose (01/29/2022 8:01 PM EST) Glucose, POC 205(H) 65 - 199 mg/dL [facility] Comment: Supplemental ranges: <140 mg/dL before meals <180 mg/dL all other times of the day Blood 01/29/2022 8:01 PM EST 01/29/2022 8:01 PM EST Levi Hinds MD POINT OF CARE TEST ORDERABLES Performing Organization Address [facility] [[email or web address]] Co de Phone Number [facility] [place] [place] [address] * POCT Glucose (01/29/2022 6:27 PM EST) Glucose, POC 160 65 - 199 mg/dL [facility] Comment: Supplemental ranges: <140 mg/dL before meals <180 mg/dL all other times of the day Blood 01/29/2022 6:27 PM EST 01/29/2022 6:27 PM EST Levi Hinds MD POINT OF CARE TEST ORDERABLES Performing Organization Address City/[facility] [[email or web address]] Co de Phone Number [facility] [place] [place] [address] * POCT Glucose (01/29/2022 5:01 PM EST) Glucose, POC 168 65 - 199 mg/dL [facility] Comment: Supplemental ranges: <140 mg/dL before meals <180 mg/dL all other times of the day Blood 01/29/2022 5:01 PM EST 01/29/2022 5:01 PM EST Levi Hinds MD POINT OF CARE TEST ORDERABLES Performing Organization Address City/[facility] [[email or web address] Co de Phone Number [facility] [place] [address] * POCT Glucose (01/29/2022 3:18 PM EST) Glucose, POC 133 65 - 199 mg/dL [facility] Comment: Supplemental ranges: <140 mg/dL before meals <180 mg/dL all other times of the day Blood 01/29/2022 3:18 PM EST 01/29/2022 3:18 PM EST Levi Hinds MD POINT OF CARE TEST ORDERABLES Performing Organization Address [facility] [[email or web address]] Co de Phone Number [facility] [place] [place] [address] * POCT Glucose (01/29/2022 2:08 PM EST) Glucose, POC 149 65 - 199 mg/dL [facility] Comment: Supplemental ranges: <140 mg/dL before meals <180 mg/dL all other times of the day Blood 01/29/2022 2:08 PM EST 01/29/2022 2:08 PM EST Levi Hinds MD POINT OF CARE TEST ORDERABLES Performing Organization Address City/[facility] [[email or web address]] Co de Phone Number [facility] [place] [address] * POCT Glucose (01/29/2022 12:05 PM EST) Glucose, POC 168 65 - 199 mg/dL [facility] Comment: Supplemental ranges: <140 mg/dL before meals <180 mg/dL all other times of the day Blood 01/29/2022 12:0 5 PM EST 01/29/2022 12:05 PM EST Levi Hinds MD POINT OF CARE TEST ORDERABLES Performing Organization Address [facility] [[email or web address]] Co de Phone Number [facility] [place] [place] [address] * (ABNORMAL) POCT Glucose (01/29/2022 11:08 AM EST) Glucose, POC 214(H) 65 - 199 mg/dL [facility] Comment: Supplemental ranges: <140 mg/dL before meals <180 mg/dL all other times of the day Blood 01/29/2022 11:0 8 AM EST 01/29/2022 11:08 AM EST Levi Hinds MD POINT OF CARE TEST ORDERABLES Performing Organization Address [facility] [[email or web address]] Co de Phone Number [facility] [place] [place] [address] * (ABNORMAL) POCT Glucose (01/29/2022 10:08 AM EST) Glucose, POC 219(H) 65 - 199 mg/dL [facility] Comment: Supplemental ranges: <140 mg/dL before meals <180 mg/dL all other times of the day Blood 01/29/2022 10:0 8 AM EST 01/29/2022 10:08 AM EST Levi Hinds MD POINT OF CARE TEST ORDERABLES Performing Organization Address [facility] [[email or web address]] Co de Phone Number [facility] [place] [place] [address] * (ABNORMAL) POCT Glucose (01/29/2022 7:49 AM EST) Glucose, POC 217(H) 65 - 199 mg/dL [facility] Comment: Supplemental ranges: <140 mg/dL before meals <180 mg/dL all other times of the day Blood 01/29/2022 7:49 AM EST 01/29/2022 7:49 AM EST Levi Hinds MD POINT OF CARE TEST ORDERABLES Performing Organization Address [facility] [[email or web address]] Co de Phone Number [facility] [place] [address] * POCT Glucose (01/29/2022 6:07 AM EST) Glucose, POC 189 65 - 199 mg/dL [facility] Comment: Supplemental ranges: <140 mg/dL before meals <180 mg/dL all other times of the day Blood 01/29/2022 6:07 AM EST 01/29/2022 6:07 AM EST Levi Hinds MD POINT OF CARE TEST ORDERABLES Performing Organization Address [facility] Phone Number [facility] [place] [address] * Potassium (01/29/2022 4:10 AM EST) Potassium 4.5 3.5 - 5.0 mmol/L [facility] Comment: Please note: ??Patients with WBC >100,000 may have falsely elevated Potassium levels. ??For accurate Potassium quantification in these patients send serum separator tube (gold top) for subsequent determinations. ??Contact the Clinical Chemistry Laboratory if there are any questions. Blood 01/29/2022 4:10 AM EST 01/29/2022 4:14 AM EST Narrative Resulting Agency Comment Spec In Lab Levi Hinds MD CHEMISTRY ORDERABLE S Performing Organization Address [facility] [[email or web address]] Co de Phone Number [facility] [place] [place] [address] * POCT Glucose (01/29/2022 4:07 AM EST) Glucose, POC 161 65 - 199 mg/dL [facility] Comment: Supplemental ranges: <140 mg/dL before meals <180 mg/dL all other times of the day Blood 01/29/2022 4:07 AM EST 01/29/2022 4:07 AM EST Levi Hinds MD POINT OF CARE TEST ORDERABLES Performing Organization Address [facility] [[email or web address]] Co de Phone Number [facility] [place] [address] * POCT Glucose (01/29/2022 2:04 AM EST) Glucose, POC 180 65 - 199 mg/dL [facility] Comment: Supplemental ranges: <140 mg/dL before meals <180 mg/dL all other times of the day Blood 01/29/2022 2:04 AM EST 01/29/2022 2:04 AM EST Levi Hinds MD POINT OF CARE TEST ORDERABLES Performing Organization Address [facility] [[email or web address]] Co de Phone Number [facility] [place] [place] [address] * POCT Glucose (01/29/2022 12:10 AM EST) Glucose, POC 174 65 - 199 mg/dL [facility] Comment: Supplemental ranges: <140 mg/dL before meals <180 mg/dL all other times of the day Blood 01/29/2022 12:1 0 AM EST 01/29/2022 12:10 AM EST Levi Hinds MD POINT OF CARE TEST ORDERABLES Performing Organization Address [facility] [[email or web address]] Co de Phone Number [facility] [place] [address] * POCT Glucose (01/28/2022 10:09 PM EST) Glucose, POC 182 65 - 199 mg/dL [facility] Comment: Supplemental ranges: <140 mg/dL before meals <180 mg/dL all other times of the day Blood 01/28/2022 10:0 9 PM EST 01/28/2022 10:09 PM EST Levi Hinds MD POINT OF CARE TEST ORDERABLES Performing Organization Address [facility] [[email or web address]] Co de Phone Number [facility] [place] [address] * POCT Glucose (01/28/2022 9:14 PM EST) Glucose, POC 177 65 - 199 mg/dL [facility] Comment: Supplemental ranges: <140 mg/dL before meals <180 mg/dL all other times of the day Blood 01/28/2022 9:14 PM EST 01/28/2022 9:14 PM EST Levi Hinds MD POINT OF CARE TEST ORDERABLES Performing Organization Address [facility] Phone Number [facility] [place] [address] * POCT Glucose (01/28/2022 7:54 PM EST) Glucose, POC 158 65 - 199 mg/dL [facility] Comment: Supplemental ranges: <140 mg/dL before meals <180 mg/dL all other times of the day Blood 01/28/2022 7:54 PM EST 01/28/2022 7:54 PM EST Levi Hinds MD POINT OF CARE TEST ORDERABLES Performing Organization Address [facility] [[email or web address]] Co de Phone Number [facility] [place] [place] [address] * POCT Glucose (01/28/2022 6:08 PM EST) Glucose, POC 134 65 - 199 mg/dL [facility] Comment: Supplemental ranges: <140 mg/dL before meals <180 mg/dL all other times of the day Blood 01/28/2022 6:08 PM EST 01/28/2022 6:08 PM EST Levi Hinds MD POINT OF CARE TEST ORDERABLES [facility] [place] [place] [address] * POCT Glucose (01/28/2022 4:04 PM EST) Glucose, POC 153 65 - 199 mg/dL [facility] Comment: Supplemental ranges: <140 mg/dL before meals <180 mg/dL all other times of the day Blood 01/28/2022 4:04 PM EST 01/28/2022 4:04 PM EST Levi Hinds MD POINT OF CARE TEST ORDERABLES Performing Organization Address [facility] [[email or web address]] Co de Phone Number [facility] [place] [place] [address] * POCT Glucose (01/28/2022 1:44 PM EST) Glucose, POC 152 65 - 199 mg/dL [facility] Comment: Supplemental ranges: <140 mg/dL before meals <180 mg/dL all other times of the day Blood 01/28/2022 1:44 PM EST 01/28/2022 1:44 PM EST Levi Hinds MD POINT OF CARE TEST ORDERABLES Performing Organization Address City/[facility] [[email or web address]] Co de Phone Number [facility] [place] [place] [address] * POCT Glucose (01/28/2022 12:12 PM EST) Glucose, POC 148 65 - 199 mg/dL [facility] Comment: Supplemental ranges: <140 mg/dL before meals <180 mg/dL all other times of the day Blood 01/28/2022 12:1 2 PM EST 01/28/2022 12:12 PM EST Levi Hinds MD POINT OF CARE TEST ORDERABLES [facility] [place] [address] * POCT Glucose (01/28/2022 10:40 AM EST) Glucose, POC 150 65 - 199 mg/dL [facility] Comment: Supplemental ranges: <140 mg/dL before meals <180 mg/dL all other times of the day Blood 01/28/2022 10:4 0 AM EST 01/28/2022 10:40 AM EST Levi Hinds MD POINT OF CARE TEST ORDERABLES [facility] [place] [address] * POCT Glucose (01/28/2022 10:11 AM EST) Glucose, POC 136 65 - 199 mg/dL [facility] Comment: Supplemental ranges: <140 mg/dL before meals <180 mg/dL all other times of the day Blood 01/28/2022 10:1 1 AM EST 01/28/2022 10:11 AM EST Levi Hinds MD POINT OF CARE TEST ORDERABLES Performing Organization Address City/[facility]/ZIP Co de Phone Number [facility] [place] [address] * POCT Glucose (01/28/2022 9:05 AM EST) Glucose, POC 164 65 - 199 mg/dL [facility] Comment: Supplemental ranges: <140 mg/dL before meals <180 mg/dL all other times of the day Blood 01/28/2022 9:05 AM EST 01/28/2022 9:05 AM EST Levi Hinds MD POINT OF CARE TEST ORDERABLES [facility] [place] [address] * POCT Glucose (01/28/2022 7:40 AM EST) Glucose, POC 144 65 - 199 mg/dL [facility] Comment: Supplemental ranges: <140 mg/dL before meals <180 mg/dL all other times of the day Blood 01/28/2022 7:40 AM EST 01/28/2022 7:40 AM EST Levi Hinds MD POINT OF CARE TEST ORDERABLES Performing Organization Address City/[facility] [[email or web address]] Co de Phone Number [facility] [place] [place] [address] * POCT Glucose (01/28/2022 6:58 AM EST) Glucose, POC 120 65 - 199 mg/dL [facility] Comment: Supplemental ranges: <140 mg/dL before meals <180 mg/dL all other times of the day Blood 01/28/2022 6:58 AM EST 01/28/2022 6:58 AM EST Levi Hinds MD POINT OF CARE TEST ORDERABLES Performing Organization Address [facility] de Phone Number [facility] [place] [address] * (ABNORMAL) BLOOD GAS 2 ARTERIAL (01/28/2022 6:27 AM EST) pH, Arterial 7.38 7.35 - 7.45 [facility] PCO2, Arterial 40 35 - 45 mmHg [facility] PO2, Arterial 71(L) 85 - 104 mmHg [facility] Bicarbonate, Arterial 23.1 20.0 - 26.0 mmol/L [facility] Base Excess, Arterial -2.0 -3.0 - 3.0 mmol/L [facility] Hgb Blood Gas 12.3(L) 13.7 - 16.5 g/dL [facility] Oxyhemoglobin, Arterial 92.9(L) 94.0 - 97.0 % [facility] Carboxyhemoglob in, Arterial 0.0 % [facility] Comment: Nonsmokers: 0.5-1.5% COHB Smokers: Variable, but usually less than 10% Toxic: 20-30% COHB Lethal: Greater than 60% COHB Methemoglobin, Arterial 0.5 <=1.5 % [facility] Na Whole Blood 135 135 - 145 mmol/L [facility] K Whole Blood 4.2 3.5 - 5.0 mmol/L [facility] Comment: Please note: Patients with WBC >100,000 may have falsely elevated Potassium levels. Contact the Clinical Chemistry Laboratory if there are any questions. ICa Whole Blood 1.07(L) 1.15 - 1.33 mmol/L [facility] Comment: Note: ??Total bilirubin higher than 20 mg/dL may lead to falsely low ionized calcium. CL Whole Blood 104 98 - 107 mmol/L [facility] Gluc Whole Bld 122 65 - 199 mg/dL [facility] Comment:Diabetes: >=200 mg/d L plus symptoms. Lactate WB 1.5 0.5 - 2.2 mmol/L [facility] FIO2 Art 40 % [facility] PF Ratio Art 178 [facility] Blood 01/28/2022 6:27 AM EST 01/28/2022 6:27 AM EST Levi Hinds MD POINT OF CARE TEST ORDERABLES Performing Organization Address City/State/[facility] [[email or web address]] Co de Phone Number [facility] [place] [address] * POCT Glucose (01/28/2022 5:56 AM EST) Glucose, POC 118 65 - 199 mg/dL [facility] Comment: Supplemental ranges: <140 mg/dL before meals <180 mg/dL all other times of the day Blood 01/28/2022 5:56 AM EST 01/28/2022 5:56 AM EST Levi Hinds MD POINT OF CARE TEST ORDERABLES Performing Organization Address City/[facility]/ZIP Co de Phone Number [facility] [place] [address] * (ABNORMAL) Hemogram (01/28/2022 5:20 AM EST) White Blood Cell 19.9(H) 4.0 - 9.5 x10(3)/mc L [facility] Red Blood Cell 3.69(L) 4.58 - 5.54 x10(6)/mc L [facility] Hemoglobin 11.6(L) 13.7 - 16.5 g/dL [facility] Hematocrit 33.4(L) 40.5 - 48.5 % [facility] Mean Cell Volume 90.5 82.9 - 93.1 fL [facility] Mean Cell Hemoglobin 31.4 27.5 - 32.1 pg [facility] Mean Cell Hemoglobin Concentration 34.7 32.0 - 35.7 g/dL [facility] Platelet 192 145 - 357 x10(3)/mc L [facility] RDW Standard Deviation 44.4 36.0 - 45.0 fL [facility] RDW coefficient of variation 13.5 11.4 - 13.8 % [facility] Mean Platelet Volume 10.8 7.6 - 12.9 fL [facility] NRBC% auto 0.0 % [facility] NRBC Absolute 0.000 0.000 - 0.000 x10(3)/mc L [facility] Blood 01/28/2022 5:20 AM EST 01/28/2022 5:33 AM EST Narrative Resulting Agency Comment Spec In Lab Levi Hinds MD HEMATOLOGY ORDERABL ES Performing Organization Address City/[facility]/ZIP Co de Phone Number [facility] [place] [place] [address] * XR Chest One View (01/28/2022 5:19 AM EST) Anatomical Region Laterality Modality Chest N/A Digital Radiogra phy Impressions 01/28/2022 5:23 AM EST * ??Increased pulmonary vascular congestion, small bilateral pleural effusions and subjacent hazy airspace opacities. * ??Unchanged cardiomegaly. Thank you for letting us participate in the care of this patient. ??If you are a health care provider and have any questions regarding this report, please contact the number below. ??For patients who have questions please contact the health rn medicare that requested your imaging first. ? Narrative 01/28/2022 5:23 AM EST EXAMINATION: XR CHEST ONE VIEW CLINICAL HISTORY: assess atelectasis TECHNIQUE: 1 view of the chest COMPARISON: Chest x-ray 01/27/2022 and 01/07/2022 FINDINGS: Endotracheal tube terminates at the level of mid trachea. Unchanged position of 2 mediastinal drains. Right IJV approach catheter terminates in proximal right pulmonary artery. Unchanged cardiomegaly. Increased pulmonary vascular congestion, small bilateral pleural effusions and bilateral lower lung hazy airspace opacities. No pneumothorax. Unchanged osseous structures. Procedure Note Gemini Eddy MD - 01/28/2022 EXAMINATION: XR CHEST ONE VIEW CLINICAL HISTORY: assess atelectasis TECHNIQUE: 1 view of the chest COMPARISON: Chest x-ray 01/27/2022 and 01/07/2022 FINDINGS: Endotracheal tube terminates at the level of mid trachea. Unchangedposition of 2 mediastinal drains. Right IJV approach catheter terminates in proximalright pulmonary artery. Unchanged cardiomegaly. Increased pulmonary vascular congestion, small bilateral pleural effusions and bilateral lower lunghazy airspace opacities. No pneumothorax. Unchanged osseous structures. IMPRESSION * Increased pulmonary vascular congestion, small bilateral pleuraleffusions and subjacent hazy airspace opacities. * Unchanged cardiomegaly. Thank you for letting us participate in the care of this patient. If youare a health care provider and have any questions regarding this report,please contact the number below. For patients who have questions please contactthe health rn medicare that requested your imaging first. Levi Hinds MD IMG DX ORDERABLES * POCT Glucose (01/28/2022 5:18 AM EST) Glucose, POC 126 65 - 199 mg/dL [facility] Comment: Supplemental ranges: <140 mg/dL before meals <180 mg/dL all other times of the day Blood 01/28/2022 5:18 AM EST 01/28/2022 5:18 AM EST Levi Hinds MD POINT OF CARE TEST ORDERABLES Performing Organization Address [facility]/ZIP Co de Phone Number [facility] [place] [address] * POCT Glucose (01/28/2022 4:03 AM EST) Glucose, POC 151 65 - 199 mg/dL [facility] Comment: Supplemental ranges: <140 mg/dL before meals <180 mg/dL all other times of the day Blood 01/28/2022 4:03 AM EST 01/28/2022 4:03 AM EST Levi Hinds MD POINT OF CARE TEST ORDERABLES Performing Organization Address City/[facility] [[email or web address]] Co de Phone Number [facility] [place] [address] * (ABNORMAL) BLOOD GAS 2 ARTERIAL (01/28/2022 3:07 AM EST) pH, Arterial 7.37 7.35 - 7.45 [facility] PCO2, Arterial 41 35 - 45 mmHg [facility] PO2, Arterial 68(L) 85 - 104 mmHg [facility] Bicarbonate, Arterial 23.1 20.0 - 26.0 mmol/L [facility] Base Excess, Arterial -2.2 -3.0 - 3.0 mmol/L [facility] Hgb Blood Gas 12.9(L) 13.7 - 16.5 g/dL [facility] Oxyhemoglobin, Arterial 92.7(L) 94.0 - 97.0 % [facility] Carboxyhemoglob in, Arterial 0.2 % [facility] Comment: Nonsmokers: 0.5-1.5% COHB Smokers: Variable, but usually less than 10% Toxic: 20-30% COHB Lethal: Greater than 60% COHB Methemoglobin, Arterial 0.6 <=1.5 % [facility] Na Whole Blood 135 135 - 145 mmol/L [facility] K Whole Blood 4.4 3.5 - 5.0 mmol/L [facility] Comment: Please note: Patients with WBC >100,000 may have falsely elevated Potassium levels. Contact the Clinical Chemistry Laboratory if there are any questions. ICa Whole Blood 1.07(L) 1.15 - 1.33 mmol/L [facility] Comment: Note: ??Total bilirubin higher than 20 mg/dL may lead to falsely low ionized calcium. CL Whole Blood 105 98 - 107 mmol/L [facility] Gluc Whole Bld 152 65 - 199 mg/dL [facility] Comment:Diabetes: >=200 mg/d L plus symptoms. Lactate WB 1.8 0.5 - 2.2 mmol/L [facility] FIO2 Art 40 % [facility] PF Ratio Art 170 [facility] Blood 01/28/2022 3:07 AM EST 01/28/2022 3:07 AM EST Levi Hinds MD POINT OF CARE TEST ORDERABLES Performing Organization Address City/[facility]/ZIP Co de Phone Number [facility] [place] [address] * POCT Glucose (01/28/2022 3:07 AM EST) Glucose, POC 162 65 - 199 mg/dL [facility] Comment: Supplemental ranges: <140 mg/dL before meals <180 mg/dL all other times of the day Blood 01/28/2022 3:07 AM EST 01/28/2022 3:07 AM EST Levi Hinds MD POINT OF CARE TEST ORDERABLES Performing Organization Address [facility] [[email or web address]] Co de Phone Number [facility] [place] [address] * (ABNORMAL) Basic Metabolic Panel (non-fasting) (01/28/2022 3:05 AM EST) Glucose 161 65 - 199 mg/dL [facility] Comment:Diabetes: >=200 mg/d L plus symptoms Blood Urea Nitrogen 7(L) 10 - 20 mg/dL [facility] Creatinine 0.59(L) 0.80 - 1.50 mg/dL [facility] Sodium 140 135 - 145 mmol/L [facility] Potassium 4.3 3.5 - 5.0 mmol/L [facility] Comment: Please note: ??Patients with WBC >100,000 may have falsely elevated Potassium levels. ??For accurate Potassium quantification in these patients send serum separator tube (gold top) for subsequent determinations. ??Contact the Clinical Chemistry Laboratory if there are any questions. Chloride 107 98 - 107 mmol/L [facility] Carbon Dioxide 22 22 - 31 mmol/L [facility] Anion Gap 11 5 - 15 mmol/L [facility] Calcium 7.5(L) 8.5 - 10.5 mg/dL [facility] Est Glomerular Filtration Rate 106 >=60 mL/min/1. 73 m?? [facility] Comment: This patient? s estimated glomerular filtration rate (eGFR) is between 106 mL/min/1.73 m2 (patients with less muscle mass per kg body weight) and 123 mL/min/1.73 m2 (patients with more muscle mass [...] and symptoms in addition to eGFR. Blood 01/28/2022 3:05 AM EST 01/28/2022 3:30 AM EST Narrative Resulting Agency Comment Spec In Lab Levi Hinds MD CHEMISTRY ORDERABLE S Performing Organization Address City/State/[facility] [[email or web address]] Co de Phone Number [facility] [place] [place] [address] * (ABNORMAL) Troponin (01/28/2022 3:05 AM EST) Troponin-T 0.20(H) 0.00 - 0.00 ng/mL [facility] Comment: The 99th percentile for Troponin T is less than 0.01 ng/mL, any detectable cTnT concentration using this assay should be considered elevated. According to the third universal definition of myocardial infarction the following criteria with a clinical presentation consistent with acute myocardial ischemia meets the diagnosis for a myocardial infarction (MO). Detection of a rise and/or fall of cTnT, with at least one value greater than the 99th percentile (> or = 0.01) and with at least one of the following ?? Symptoms of ischemia ?? New or presumed new significant AP-nllueyz-G wave (ST-T) changes or new left bundle branch block (LBBB) ?? Development of pathologic Q waves in the ECG ?? Imaging evidence of new loss of viable myocardium or new regional wall motion abnormality ?? Identification of an intracoronary thrombus by angiography or autopsy Samples for cTnT testing should be obtained serially upon first assessment and again 3 to 6 hours later. If the clinical suspicion is high and previous samples have been negative an additional sample may be indicated. Reference: Third [place] Definition of Myocardial Infarction. Journal of the [place] [employer] 2012;60:1581-98 Blood 01/28/2022 3:05 AM EST 01/28/2022 3:30 AM EST Narrative Resulting Agency Comment Spec In Lab Levi Hinds MD CHEMISTRY ORDERABLE S Performing Organization Address City/[facility] [[email or web address]] Co de Phone Number [facility] [place] [address] * POCT Glucose (01/28/2022 2:05 AM EST) Glucose, POC 170 65 - 199 mg/dL [facility] Comment: Supplemental ranges: <140 mg/dL before meals <180 mg/dL all other times of the day Blood 01/28/2022 2:05 AM EST 01/28/2022 2:05 AM EST Levi Hinds MD POINT OF CARE TEST ORDERABLES Performing Organization Address [facility] [[email or web address]] Co de Phone Number [facility] [place] [address] * POCT Glucose (01/28/2022 12:57 AM EST) Glucose, POC 194 65 - 199 mg/dL [facility] Comment: Supplemental ranges: <140 mg/dL before meals <180 mg/dL all other times of the day Blood 01/28/2022 12:5 7 AM EST 01/28/2022 12:57 AM EST Levi Hinds MD POINT OF CARE TEST ORDERABLES Performing Organization Address [facility] [[email or web address]] Co de Phone Number [facility] [place] [place] [address] * (ABNORMAL) POCT Glucose (01/27/2022 11:58 PM EST) Glucose, POC 224(H) 65 - 199 mg/dL [facility] Comment: Supplemental ranges: <140 mg/dL before meals <180 mg/dL all other times of the day Blood 01/27/2022 11:5 8 PM EST 01/27/2022 11:58 PM EST Levi Hinds MD POINT OF CARE TEST ORDERABLES Performing Organization Address [facility] [[email or web address]] Co de Phone Number [facility] [place] [address] * (ABNORMAL) POCT Glucose (01/27/2022 11:10 PM EST) Glucose, POC 247(H) 65 - 199 mg/dL [facility] Comment: Supplemental ranges: <140 mg/dL before meals <180 mg/dL all other times of the day Blood 01/27/2022 11:1 0 PM EST 01/27/2022 11:10 PM EST Levi Hinds MD POINT OF CARE TEST ORDERABLES Performing Organization Address [facility] [[email or web address]] Co de Phone Number [facility] [place] [address] * Potassium (01/27/2022 11:10 PM EST) Potassium 4.1 3.5 - 5.0 mmol/L [facility] Comment: Please note: ??Patients with WBC >100,000 may have falsely elevated Potassium levels. ??For accurate Potassium quantification in these patients send serum separator tube (gold top) for subsequent determinations. ??Contact the Clinical Chemistry Laboratory if there are any questions. Blood 01/27/2022 11:1 0 PM EST 01/27/2022 11:21 PM EST Narrative Resulting Agency Comment Spec In Lab Levi Hinds MD CHEMISTRY ORDERABLE S Performing Organization Address [facility] [[email or web address]] Co de Phone Number [facility] [place] [address] * (ABNORMAL) BLOOD GAS 2 ARTERIAL (01/27/2022 10:30 PM EST) pH, Arterial 7.34(L) 7.35 - 7.45 [facility] PCO2, Arterial 41 35 - 45 mmHg [facility] PO2, Arterial 71(L) 85 - 104 mmHg [facility] Bicarbonate, Arterial 21.7 20.0 - 26.0 mmol/L [facility] Base Excess, Arterial -4.1(L) -3.0 - 3.0 mmol/L [facility] Hgb Blood Gas 12.8(L) 13.7 - 16.5 g/dL [facility] Oxyhemoglobin, Arterial 92.9(L) 94.0 - 97.0 % [facility] Carboxyhemoglob in, Arterial 0.0 % [facility] Comment: Nonsmokers: 0.5-1.5% COHB Smokers: Variable, but usually less than 10% Toxic: 20-30% COHB Lethal: Greater than 60% COHB Methemoglobin, Arterial 0.8 <=1.5 % [facility] Na Whole Blood 137 135 - 145 mmol/L [facility] K Whole Blood 3.7 3.5 - 5.0 mmol/L [facility] Comment: Please note: Patients with WBC >100,000 may have falsely elevated Potassium levels. Contact the Clinical Chemistry Laboratory if there are any questions. ICa Whole Blood 1.07(L) 1.15 - 1.33 mmol/L [facility] Comment: Note: ??Total bilirubin higher than 20 mg/dL may lead to falsely low ionized calcium. CL Whole Blood 105 98 - 107 mmol/L [facility] Gluc Whole Bld 232(H) 65 - 199 mg/dL [facility] Comment:Diabetes: >=200 mg/d L plus symptoms. Lactate WB 4.6(Critic al) 0.5 - 2.2 mmol/L [facility] Comment:Noted by instrumentation engineering technician. FIO2 Art 40 % [facility] PF Ratio Art 178 [facility] Blood 01/27/2022 10:3 0 PM EST 01/27/2022 10:30 PM EST Levi Hinds MD POINT OF CARE TEST ORDERABLES [facility] [place] [place] [address] * COVID-19 PCR (01/27/2022 9:01 PM EST) SARS-CoV-2 RNA (Rapid) Not Detected Not Detected [facility] Comment: This result should be interpreted in combination with the clinical observations, patient history and epidemiological information. For testing of asymptomatic individuals, assay performance characteristics and clinical utility have not been evaluated. Testing for SARS-CoV-2 (Severe acute respiratory syndrome coronavirus 2, formerly known as 2019 novel coronavirus or 2019-nCoV) to aid in the diagnosis of COVID-19 is performed using the Simplexa COVID-19 Direct Assay by [employer] as authorized by the FDA issued Emergency Use Authorization (EUA). This assay is intended for In-vitro Diagnostic (IVD) use with nasopharyngeal swabs collected from individuals meeting the CDC criteria for testing. The assay is performed based on the instructions for use and additional guidance provided by the FDA. Testing is performed in the Microbiology Laboratory within the Department of Pathology and Laboratory Medicine at [facility], certified under the Clinical Laboratory Improvement Amendments of 1988 (CLIA), 42 U.S.C. section 263a, to perform high complexity tests. Assay performance has been verified according to clinical laboratory regulatory requirements. Test results are provided above. A result of Not Detected indicates that the viral RNA target is not present but does not preclude SARS-CoV-2 infection. False negative results may occur if a specimen is improperly collected, transported or handled; if amplification inhibitors are present; or if inadequate numbers of viral particles are present in the specimen. A result of Detected suggests a current or recent infection and the patient is presumed to be infected. Positive and negative predictive values for this test are highly dependent on disease prevalence. A result of Invalid indicates the inability to conclusively determine the presence or absence of SARS-CoV-2 RNA in the sample which can be due to a variety of factors. Recollection is recommended in the case of an invalid result. CDC COVID-19 criteria for testing on human specimens and clinical management guidance information are available at the CDC Coronavirus Disease 2019 (COVID-19) webpage under Information for Healthcare Professionals (https://www.cdc.gov/coronavirus/2019-ncov/hcp/index.html). Additional information about this and other EUA tests can be found in provider and patient fact sheets at the following FDA website: https://www.fda.gov/medical-devices/jpqsyxbivkb-rthibuw-9091-jngyr-44-rvfeffpbm- use-a hzaaoldafhmoe-nxvjala-rgrceua/izwrd-uwpjlnbjlul-cfag SARS-CoV-2 Source CHIEF OPERATOR Swab [facility] Nasopharyngeal Swab 01/27/20 9:01 PM EST 01/27/2022 9:24 PM EST Comment:Symptoms->Surveillan ce Narrative Resulting Agency Comment Spec In Lab Levi Hinds MD MICROBIOLOGY - [facility] ORDERABLES [facility] [place] [place] [address] * (ABNORMAL) BLOOD GAS 2 ARTERIAL (01/27/2022 7:45 PM EST) pH, Arterial 7.33(L) 7.35 - 7.45 [facility] PCO2, Arterial 39 35 - 45 mmHg [facility] PO2, Arterial 73(L) 85 - 104 mmHg [facility] Bicarbonate, Arterial 19.9(L) 20.0 - 26.0 mmol/L [facility] Base Excess, Arterial -6.1(L) -3.0 - 3.0 mmol/L [facility] Hgb Blood Gas 12.6(L) 13.7 - 16.5 g/dL [facility] Oxyhemoglobin, Arterial 93.1(L) 94.0 - 97.0 % [facility] Carboxyhemoglob in, Arterial 0.1 % [facility] Comment: Nonsmokers: 0.5-1.5% COHB Smokers: Variable, but usually less than 10% Toxic: 20-30% COHB Lethal: Greater than 60% COHB Methemoglobin, Arterial 0.8 <=1.5 % [facility] Na Whole Blood 137 135 - 145 mmol/L [facility] K Whole Blood 4.1 3.5 - 5.0 mmol/L [facility] Comment: Please note: Patients with WBC >100,000 may have falsely elevated Potassium levels. Contact the Clinical Chemistry Laboratory if there are any questions. ICa Whole Blood 1.06(L) 1.15 - 1.33 mmol/L [facility] Comment: Note: ??Total bilirubin higher than 20 mg/dL may lead to falsely low ionized calcium. CL Whole Blood 105 98 - 107 mmol/L [facility] Gluc Whole Bld 254(H) 65 - 199 mg/dL [facility] Comment:Diabetes: >=200 mg/d L plus symptoms. Lactate WB 4.7(Critic al) 0.5 - 2.2 mmol/L [facility] Comment:Noted by instrumentation engineering technician. FIO2 Art 40 % [facility] PF Ratio Art 182 [facility] Blood 01/27/2022 7:45 PM EST 01/27/2022 7:45 PM EST Levi Hinds MD POINT OF CARE TEST ORDERABLES Performing Organization Address City/State/[facility] [[email or web address]] Co de Phone Number [facility] [place] [address] * (ABNORMAL) BLOOD GAS 2 ARTERIAL (01/27/2022 6:12 PM EST) pH, Arterial 7.28(Criti sharon) 7.35 - 7.45 [facility] PCO2, Arterial 43 35 - 45 mmHg [facility] PO2, Arterial 104 85 - 104 mmHg [facility] Bicarbonate, Arterial 19.6(L) 20.0 - 26.0 mmol/L [facility] Base Excess, Arterial -7.2(L) -3.0 - 3.0 mmol/L [facility] Hgb Blood Gas 13.9 13.7 - 16.5 g/dL [facility] Oxyhemoglobin, Arterial 95.7 94.0 - 97.0 % [facility] Carboxyhemoglob in, Arterial 0.2 % [facility] Comment: Nonsmokers: 0.5-1.5% COHB Smokers: Variable, but usually less than 10% Toxic: 20-30% COHB Lethal: Greater than 60% COHB Methemoglobin, Arterial 0.7 <=1.5 % [facility] Na Whole Blood 136 135 - 145 mmol/L [facility] K Whole Blood 4.4 3.5 - 5.0 mmol/L [facility] Comment: Please note: Patients with WBC >100,000 may have falsely elevated Potassium levels. Contact the Clinical Chemistry Laboratory if there are any questions. ICa Whole Blood 1.07(L) 1.15 - 1.33 mmol/L [facility] Comment: Note: ??Total bilirubin higher than 20 mg/dL may lead to falsely low ionized calcium. CL Whole Blood 104 98 - 107 mmol/L [facility] Gluc Whole Bld 263(H) 65 - 199 mg/dL [facility] Comment:Diabetes: >=200 mg/d L plus symptoms. Lactate WB 4.3(Critic al) 0.5 - 2.2 mmol/L [facility] FIO2 Art 60 % [facility] PF Ratio Art 173 [facility] Blood 01/27/2022 6:12 PM EST 01/27/2022 6:12 PM EST Levi Hinds MD POINT OF CARE TEST ORDERABLES [facility] [place] [address] * (ABNORMAL) Hemoglobin (01/27/2022 6:10 PM EST) Hemoglobin 13.2(L) 13.7 - 16.5 g/dL [facility] Blood 01/27/2022 6:10 PM EST 01/27/2022 6:22 PM EST Narrative Resulting Agency Comment Spec In Lab Levi Hinds MD HEMATOLOGY ORDERABL ES Performing Organization Address [facility] [[email or web address]] Co de Phone Number [facility] [place] [address] * Potassium (01/27/2022 6:10 PM EST) Pathologist [facility] Potassium 4.8 3.5 - 5.0 mmol/L [facility] Comment: Please note: ??Patients with WBC >100,000 may have falsely elevated Potassium levels. ??For accurate Potassium quantification in these patients send serum separator tube (gold top) for subsequent determinations. ??Contact the Clinical Chemistry Laboratory if there are any questions. Blood 01/27/2022 6:10 PM EST 01/27/2022 6:22 PM EST Narrative Resulting Agency Comment Spec In Lab Levi Hinds MD CHEMISTRY ORDERABLE S Performing Organization Address [facility] Phone Number [facility] [place] [address] * (ABNORMAL) BLOOD GAS 2 ARTERIAL (01/27/2022 4:53 PM EST) pH, Arterial 7.27(Criti sharon) 7.35 - 7.45 [facility] Comment:Noted by instrumentation engineering technician. PCO2, Arterial 42 35 - 45 mmHg [facility] PO2, Arterial 135(H) 85 - 104 mmHg [facility] Bicarbonate, Arterial 18.6(L) 20.0 - 26.0 mmol/L [facility] Base Excess, Arterial -8.4(L) -3.0 - 3.0 mmol/L [facility] Hgb Blood Gas 13.8 13.7 - 16.5 g/dL [facility] Oxyhemoglobin, Arterial 96.9 94.0 - 97.0 % [facility] Carboxyhemoglob in, Arterial 0.4 % [facility] Comment: Nonsmokers: 0.5-1.5% COHB Smokers: Variable, but usually less than 10% Toxic: 20-30% COHB Lethal: Greater than 60% COHB Methemoglobin, Arterial 0.8 <=1.5 % [facility] Na Whole Blood 135 135 - 145 mmol/L [facility] K Whole Blood 4.4 3.5 - 5.0 mmol/L [facility] Comment: Please note: Patients with WBC >100,000 may have falsely elevated Potassium levels. Contact the Clinical Chemistry Laboratory if there are any questions. ICa Whole Blood 1.06(L) 1.15 - 1.33 mmol/L [facility] Comment: Note: ??Total bilirubin higher than 20 mg/dL may lead to falsely low ionized calcium. CL Whole Blood 105 98 - 107 mmol/L [facility] Gluc Whole Bld 273(H) 65 - 199 mg/dL [facility] Comment:Diabetes: >=200 mg/d L plus symptoms. Lactate WB 3.3(H) 0.5 - 2.2 mmol/L [facility] FIO2 Art 80 % [facility] PF Ratio Art 169 [facility] Blood 01/27/2022 4:53 PM EST 01/27/2022 4:53 PM EST Levi Hinds MD POINT OF CARE TEST ORDERABLES [facility] [place] [address] * XR Chest One View (01/27/2022 4:09 PM EST) Anatomical Region Laterality Modality Chest N/A Digital Radiogra phy Impressions 01/27/2022 4:39 PM EST 1. Tubes and lines positioned as above. 2. Low lung volumes with bibasilar atelectasis. Thank you for letting us participate in the care of this patient. ??If you are a health care provider and have any questions regarding this report, please contact the number below. ??For patients who have questions please contact the health rn medicare that requested your imaging first. ? Narrative 01/27/2022 4:39 PM EST EXAMINATION: XR CHEST ONE VIEW CLINICAL HISTORY: s/p cabg, lung recuitment TECHNIQUE: 1 view of the chest COMPARISON: 01/27/2022. FINDINGS: There are sternal wires and mediastinal clips consistent with CABG. An ET tube terminates in the mid trachea unchanged from prior study from earlier in the day. There are two mediastinal drains and a right IJ central line with the tip in the right atrium or just into the right ventricle. The lung volumes are low. The cardiomediastinal silhouette is enlarged. No pulmonary edema is seen. There is airless lung in both lower lung zones, likely atelectasis and I suspect a small right pleural effusion. Procedure Note Jj Kenney MD - 01/27/2022 EXAMINATION: XR CHEST ONE VIEW CLINICAL HISTORY: s/p cabg, lung recuitment TECHNIQUE: 1 view of the chest COMPARISON: 01/27/2022. FINDINGS: There are sternal wires and mediastinal clips consistent with CABG. An ETtube terminates in the mid trachea unchanged from prior study from earlier inthe day. There are two mediastinal drains and a right IJ central line with thetip in the right atrium or just into the right ventricle. The lung volumes are low. The cardiomediastinal silhouette is enlarged.No pulmonary edema is seen. There is airless lung in both lower lung zones,likely atelectasis and I suspect a small right pleural effusion. IMPRESSION 1. Tubes and lines positioned as above. 2. Low lung volumes with bibasilar atelectasis. Thank you for letting us participate in the care of this patient. If youare a health care provider and have any questions regarding this report,please contact the number below. For patients who have questions please contactthe health rn medicare that requested your imaging first. Levi Hinds MD IMG DX ORDERABLES * (ABNORMAL) BLOOD GAS 2 ARTERIAL (01/27/2022 3:01 PM EST) pH, Arterial 7.27(Criti sharon) 7.35 - 7.45 [facility] Comment:Noted by instrumentation engineering technician. PCO2, Arterial 46(H) 35 - 45 mmHg [facility] PO2, Arterial 108(H) 85 - 104 mmHg [facility] Bicarbonate, Arterial 20.5 20.0 - 26.0 mmol/L [facility] Base Excess, Arterial -6.5(L) -3.0 - 3.0 mmol/L [facility] Hgb Blood Gas 14.0 13.7 - 16.5 g/dL [facility] Oxyhemoglobin, Arterial 95.8 94.0 - 97.0 % [facility] Carboxyhemoglob in, Arterial 0.3 % [facility] Comment: Nonsmokers: 0.5-1.5% COHB Smokers: Variable, but usually less than 10% Toxic: 20-30% COHB Lethal: Greater than 60% COHB Methemoglobin, Arterial 0.8 <=1.5 % [facility] Na Whole Blood 136 135 - 145 mmol/L [facility] K Whole Blood 4.0 3.5 - 5.0 mmol/L [facility] Comment: Please note: Patients with WBC >100,000 may have falsely elevated Potassium levels. Contact the Clinical Chemistry Laboratory if there are any questions. ICa Whole Blood 1.08(L) 1.15 - 1.33 mmol/L [facility] Comment: Note: ??Total bilirubin higher than 20 mg/dL may lead to falsely low ionized calcium. CL Whole Blood 106 98 - 107 mmol/L [facility] Gluc Whole Bld 240(H) 65 - 199 mg/dL [facility] Comment:Diabetes: >=200 mg/d L plus symptoms. Lactate WB 2.7(H) 0.5 - 2.2 mmol/L [facility] FIO2 Art 100 % [facility] PF Ratio Art 108 [facility] Blood 01/27/2022 3:01 PM EST 01/27/2022 3:01 PM EST Levi Hinds MD POINT OF CARE TEST ORDERABLES Performing Organization Address City/State/[facility] [[email or web address]] Co de Phone Number [facility] [place] [address] * XR Chest One View (01/27/2022 1:45 PM EST) Anatomical Region Laterality Modality Chest N/A Digital Radiogra phy Impressions 01/27/2022 2:02 PM EST 1. ??Satisfactory equipment position. 2. ??No pneumothorax seen. 3. ??Atelectasis of the right upper lobe, right lower lobe, and left lower lobe. Thank you for letting us participate in the care of this patient. ??If you are a health care provider and have any questions regarding this report, please contact the number below. ??For patients who have questions please contact the health rn medicare that requested your imaging first. ? Electronically signed by: Jahaira Christopher MD, [facility] ([phone]), at 01/27/2022 2:02 PM Narrative 01/27/2022 2:02 PM EST EXAMINATION: XR CHEST ONE VIEW CLINICAL HISTORY: s/p cabg TECHNIQUE: Portable AP chest radiograph on ??01/27/2022 at 1331 hours. COMPARISON: 01/07/2022. FINDINGS: Endotracheal tube approximately 4 cm above the yvonne. Right IJ introducer with PA catheter in the proximal right pulmonary artery. 2 subxiphoid drains are present. Sternotomy wires appear intact. Retrocardiac airless lung on the left consistent with a least partial lower lobe atelectasis. On the right, there is both retrocardiac airless lung as well as airless lung by the right upper hemithorax and upper displacement of the minor fissure. No appreciable pneumothorax or pleural fluid seen. No definite change in cardiac silhouette. Procedure Note Jahaira Christopher MD - 01/27/2022 EXAMINATION: XR CHEST ONE VIEW CLINICAL HISTORY: s/p cabg TECHNIQUE: Portable AP chest radiograph on 01/27/2022 at 1331 hours. COMPARISON: 01/07/2022. FINDINGS: Endotracheal tube approximately 4 cm above the yvonne. RightIJ introducer with PA catheter in the proximal right pulmonary artery. 2subxiphoid drains are present. Sternotomy wires appear intact. Retrocardiac airlesslung on the left consistent with a least partial lower lobe atelectasis. On theright, there is both retrocardiac airless lung as well as airless lung by theright upper hemithorax and upper displacement of the minor fissure. Noappreciable pneumothorax or pleural fluid seen. No definite change in cardiacsilhouette. IMPRESSION 1. Satisfactory equipment position. 2. No pneumothorax seen. 3. Atelectasis of the right upper lobe, right lower lobe, and left lowerlobe. Thank you for letting us participate in the care of this patient. If youare a health care provider and have any questions regarding this report,please contact the number below. For patients who have questions please contactthe health rn medicare that requested your imaging first. Levi Hinds MD IMG DX ORDERABLES * (ABNORMAL) BLOOD GAS 2 ARTERIAL (01/27/2022 1:44 PM EST) pH, Arterial 7.26(Criti sharon) 7.35 - 7.45 [facility] Comment:Noted by instrumentation engineering technician. PCO2, Arterial 50(H) 35 - 45 mmHg [facility] PO2, Arterial 88 85 - 104 mmHg [facility] Bicarbonate, Arterial 21.7 20.0 - 26.0 mmol/L [facility] Base Excess, Arterial -5.4(L) -3.0 - 3.0 mmol/L [facility] Hgb Blood Gas 14.1 13.7 - 16.5 g/dL [facility] Oxyhemoglobin, Arterial 93.5(L) 94.0 - 97.0 % [facility] Carboxyhemoglob in, Arterial 0.6 % [facility] Comment: Nonsmokers: 0.5-1.5% COHB Smokers: Variable, but usually less than 10% Toxic: 20-30% COHB Lethal: Greater than 60% COHB Methemoglobin, Arterial 0.9 <=1.5 % [facility] Na Whole Blood 138 135 - 145 mmol/L [facility] K Whole Blood 3.8 3.5 - 5.0 mmol/L [facility] Comment: Please note: Patients with WBC >100,000 may have falsely elevated Potassium levels. Contact the Clinical Chemistry Laboratory if there are any questions. ICa Whole Blood 1.09(L) 1.15 - 1.33 mmol/L [facility] Comment: Note: ??Total bilirubin higher than 20 mg/dL may lead to falsely low ionized calcium. CL Whole Blood 106 98 - 107 mmol/L [facility] Gluc Whole Bld 207(H) 65 - 199 mg/dL [facility] Comment:Diabetes: >=200 mg/d L plus symptoms. Lactate WB 2.6(H) 0.5 - 2.2 mmol/L [facility] FIO2 Art 100 % [facility] PF Ratio Art 88 [facility] Blood 01/27/2022 1:44 PM EST 01/27/2022 1:44 PM EST Levi Hinds MD POINT OF CARE TEST ORDERABLES Performing Organization Address [facility]/State/ZIP Co de Phone Number [facility] [place] [phone] * ALEXA PRE AND POST OP (01/27/2022 1:42 PM EST) Anatomical Region Laterality Modality Other 01/27/2022 6:36 AM EST Narrative 01/27/2022 3:01 PM EST ? Version: 1 + + ? + + : ?: ? : ? : + + ? [facility] ?: ? : ? : ? : ? : ? : ? [address] ? : ? : ? + + ?[place] [address] ?Voice: ?Fax: Name: SKYE ADRIEN Handley ?Study Date: 01/27/2022, 6: 36 AM ?Patient Location: CVCC^CV21^A^N [facility] : 1955 (MM/DD/YYYY) ? Height: 170 cm ? Age: 66 Years ? Weight: 122 kg Gender: Male Ordering Physician: [id number]^WALTER^LEVI^Owen^^^^^EPIC^^^^PROVID Referring Physician: [id number]^JAIME^RANDA^^^^^^EPIC^^^^PROVID Reason For Study: Cardiac disease ? Conclusions Left ventricle is moderate to severely dilated. Left ventricular ejection fraction is estimated at 35%. There is Grade II LV diastolic dysfunction (abnormal relaxation with elevated left ventricular filling pressure). There is global hypokinesis with regional variation. The apical cap is hypokinetic. 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 The right ventricle is of normal size. Right ventricular systolic function appears to be normal without evidence of regional wall motion abnormalities. There is mild mitral regurgitation. Pre Procedure Findings A complete transesophageal echocardiogram was performed in the [facility].R. for immediate pre-operative and post-operative evaluation of cardiac function and valvular heart disease during cardiac surgery. Satisfactory quality. The probe was passed without difficulty. Real time ultrasound guided central line insertion performed for the Right-IJ vein. A linear probe was used with a sterile sheath. The artery and vein were identified prior to vessel puncture. Patient is on pressor support with norepinephrine. Left ventricle is moderate to severely dilated. Left ventricular systolic function is moderately reduced. Left ventricular ejection fraction is estimated at 35%. There is Grade II LV diastolic dysfunction (abnormal relaxation with elevated left ventricular filling pressure). There is global hypokinesis with regional variation. The apical cap is hypokinetic. The right ventricle is of normal size. Right ventricular systolic function appears to be normal without evidence of regional wall motion abnormalities. The left atrium is mildly dilated. There is no thrombus noted in the left atrial appendage. Normal emptying velocities. There is no evidence for a patent foramen ovale. Right atrium is of normal size. The aortic valve is structurally normal. The aortic valve is mildly thickened. There is trace aortic regurgitation. There is no evidence for aortic stenosis. There is mild mitral regurgitation. There is mild tricuspid regurgitation. There is no evidence of pulmonic valve regurgitation. The aortic root is of normal size. No abnormalities are identified. No abnormalities of the ascending aorta are identified. The pericardium appears normal. Post Procedure Findings Patient is s/p 4-vessel CABG. Patient is on inotrope support with epinephrine. Patient is on pressor support with norephinephrine, vasopressin. 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 Left ventricular ejection fraction is estimated visually at 35 %. The apical lateral wall is dyskinetic. No changes from pre-bypass exam. --+ : I ? : : ?WMSI ??= ??2.5 ? % Normal ??= ??0% ? : :+ + ? : :: ? : : + + + : ? : :: ? : : ? : : ?? : : There is diffuse hypokinesis to dyskinesis. ?: :: ? : : ? : : ?? : : ?: :: ? : : ? : : ?? : : ?: :: ? : : ? : : ?? : : ?: :: ? : : ? : : ?? : : ?: :: ? : : ? : : ?? : : ?: :: ? : : ? : : ?? : : ?: :: ? : : + + + : ? : :: ? : : ? : ?: :+ + : ? : ?: : ?: + + + : ? : : ?: ? : : ?? : : ?: : ?: ? : : ?? : : ?: : ?: ? : : ?? : : ?: : ?: ? : : ?? : : ?: : ?: ? : : ?? : : ?: : ?: ? : : ?? : : ?: : ?: ? : : ?? : : ?: : ?: + + + : ? : + -+ : : II ? : : ? WMSI ??= ?? 2.6 ?% Normal ??= ?? 0% ? : :+ + + + + + ? : :: ? : : ? : : ?? : : ?: :: ? : : ? : : ?? : : There is diffuse hypokinesis to dyskinesis. ?: :: ? : : ? : : ?? : : ?: :: ? : : ? : : ?? : : There is a small sized anterior lateral apical aneurysm. ? : :: ? : : ? : : ?? : : ?: :: ? : : ? : : ?? : : ?: :: ? : : ? : : ?? : : ?: :: ? : : + + + : ? : :: ? : : ? : ?: :: ? : : ? : ?: :+ + : ? : ?: : ?: + + + : ? : : ?: ? : : ?? : : ?: : ?: ? : : ?? : : ?: : ?: ? : : ?? : : ?: : ?: ? : : ?? : : ?: : ?: ? : : ?? : : ?: : ?: ? : : ?? : : ?: : ?: ? : : ?? : : ?: : ?: + + + : ? : : ?: ? :+ + ? : :: : +: : : X - ?1 - ? 2 - ?3 - ?4 - ? 5 - ? :: ? Segments ? : ? Size ? : ? : : ?Cannot Interpret ??Normal ? Hypokinetic ?Akinetic ? Dyskinetic ? Aneurysmal ?? :: ?: ? : ? : : ? :: + + ? : ? : : ? :: ? 1-2 ?: ?small ? : ? : : ? :: + + ? : ? : : ? :: ? 3-5 ?: ?moderate ?: ? : : ? :: : + ? : ? : : ? :: ?6-14 ?: ? large ?: ? : : ? :: + + ? : ? : : ? :: ? 15-16 ?: ?diffuse ? : ? : + ++ : --+ Reading Physician ? --+ : ? Lorie Houser MD ?? 01/27/2022, 3:01 PM ? : --+ Ordering Physician: LEVI HINDS Referring Physician: RANDA ROSAS Performed By: Lorie Houser MD Procedure Note Lorie Houser MD - 01/27/2022 Version: 1 + + + + : : : : + +[facility] : : : : : : [address] : : + + [place] [phone] Voice: Fax: Name: ADRIEN CHEUNG Study Date: 01/27/2022,6: 36 AM Patient Location: [facility]^A^N [facility] : 1955 (MM/DD/YYYY) Height: 170 cm Age: 66 Years Weight: 122 kg Gender: Male Ordering Physician: [id number]^WALTER^LEVI^Owen^^^^^EPIC^^^^PROVID Referring Physician: [id number]^JAIME^RANDA^^^^^^EPIC^^^^PROVID Reason For Study: Cardiac disease Conclusions Left ventricle is moderate to severely dilated. Left ventricular ejection fraction is estimated at 35%. There is Grade II LV diastolic dysfunction (abnormal relaxation withelevated left ventricular filling pressure). There is global hypokinesis with regional variation. The apical cap is hypokinetic. 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 The right ventricle is of normal size. Right ventricular systolic function appears to be normal without evidenceof regional wall motion abnormalities. There is mild mitral regurgitation. Pre Procedure Findings A complete transesophageal echocardiogram was performed in the [facility] pre-operative and post-operative evaluation of cardiac function andvalvular heart disease during cardiac surgery. Satisfactory quality. The probe was passedwithout difficulty. Real time ultrasound guided central line insertion performedfor the Right-IJ vein. A linear probe was used with a sterile sheath. The arteryand vein were identified prior to vessel puncture. Patient is on pressor supportwith norepinephrine. Left ventricle is moderate to severely dilated. Left ventricular systolicfunction is moderately reduced. Left ventricular ejection fraction is estimated at35%. There is Grade II LV diastolic dysfunction (abnormal relaxation withelevated left ventricular filling pressure). There is global hypokinesis with regional variation. The apical cap is hypokinetic. The right ventricle is of normal size. Right ventricular systolic functionappears to be normal without evidence of regional wall motion abnormalities. The left atrium is mildly dilated. There is no thrombus noted in the leftatrial appendage. Normal emptying velocities. There is no evidence for a patentforamen ovale. Right atrium is of normal size. The aortic valve is structurally normal. The aortic valve is mildlythickened. There is trace aortic regurgitation. There is no evidence for aorticstenosis. There is mild mitral regurgitation. There is mild tricuspid regurgitation. There is no evidence of pulmonic valve regurgitation. The aortic root is of normal size. No abnormalities are identified. No abnormalities of the ascending aorta are identified. The pericardium appears normal. Post Procedure Findings Patient is s/p 4-vessel CABG. Patient is on inotrope support withepinephrine. Patient is on pressor support with norephinephrine, vasopressin. 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 Left ventricular ejection fraction isestimated visually at 35 %. The apical lateral wall is dyskinetic. No changes from pre-bypass exam. --+ : I : : WMSI = 2.5 % Normal = 0% : :+ + : :: :: + + + : : :: : :: : : : There is diffuse hypokinesis to dyskinesis.: :: : :: : : :: :: : :: : : :: :: : :: : : :: :: : :: : : :: :: : :: : : :: :: : :: : : :: :: :: + + + : : :: : : :: :+ + : :: :: + + + : : : :: : : :: : :: : : :: : :: : : :: : :: : : :: : :: : : :: : :: : : :: : :: : : :: :: + + + : : + -+ : : II : : WMSI = 2.6 % Normal = 0% : :+ ++ + + + : :: : :: : : :: :: : :: : : : There is diffuse hypokinesis to dyskinesis.: :: : :: : : :: :: : :: : : : There is a small sized anterior lateral apical aneurysm.: :: : :: : : :: :: : :: : : :: :: : :: : : :: :: :: + + + : : :: : : :: :: : : :: :+ + : :: :: + + + : : : :: : : :: : :: : : :: : :: : : :: : :: : : :: : :: : : :: : :: : : :: : :: : : :: :: + + + : : : : :+ +: :: : +: : : X - 1 - 2 - 3 - 4 - 5 - :: Segments : Size: : : Cannot Interpret Normal Hypokinetic Akinetic Dyskinetic Aneurysmal :: : : : : :: + + :: : :: 1-2 : small :: : :: + + :: : :: 3-5 : moderate :: : :: : + :: : :: 6-14 : large :: : :: + + :: : :: 15-16 : diffuse :: + ++ : --+ Reading Physician --+ : Lorie Houser MD 01/27/2022, 3:01 PM : --+ Ordering Physician: LEVI HINDS Referring Physician: RANDA ROSAS Performed By: Lorie Houser MD Levi Hinds MD ECHO ORDERABLES * EKG 12 Lead (01/27/2022 1:26 PM EST) Ventricular rate 96 BPM MUSE SYSTEM Atrial Rate 96 BPM MUSE SYSTEM P-R Interval 188 ms MUSE SYSTEM QRS Duration 152 ms MUSE SYSTEM Q-T Interval 430 ms MUSE SYSTEM QTC Calculated (Bezet) 543 ms MUSE SYSTEM Calculated P Hester 57 degrees MUSE SYSTEM Calculated R Hester -45 degrees MUSE SYSTEM Calculated T Hester 99 degrees MUSE SYSTEM INTERPRETATION Normal sinus rhythm Left axis deviation Left bundle branch block Abnormal ECG When compared with ECG of 19-DEC-2021 13:04, Left bundle branch block is now Present Confirmed by MD ZHEN, LISS ([id number]) on 01/27/2022 3:00:06 PM MUSE SYSTEM 01/27/2022 1:26 PM EST 01/27/2022 3:00 PM EST Levi Hinds MD ECG ORDERABLES MUSE SYSTEM * (ABNORMAL) BLOOD GAS 2 ARTERIAL (01/27/2022 12:03 PM EST) pH, Arterial 7.28(Crit ical) 7.35 - 7.45 [facility] Comment: Critical notified to Lorie Houser MD by instrumentation engineering technician immediately following run time. PCO2, Arterial 49(H) 35 - 45 mmHg [facility] PO2, Arterial 153(H) 85 - 104 mmHg [facility] Bicarbonate, Arterial 22.6 20.0 - 26.0 mmol/L [facility] Base Excess, Arterial -4.1(L) -3.0 - 3.0 mmol/L [facility] Hgb Blood Gas 10.9(L) 13.7 - 16.5 g/dL [facility] Oxyhemoglobin, Arterial 97.6(H) 94.0 - 97.0 % [facility] Carboxyhemoglobi n, Arterial 0.6 % [facility] Comment: Nonsmokers: 0.5-1.5% COHB Smokers: Variable, but usually less than 10% Toxic: 20-30% COHB Lethal: Greater than 60% COHB Methemoglobin, Arterial 0.3 <=1.5 % [facility] Na Whole Blood 138 135 - 145 mmol/L [facility] K Whole Blood 3.7 3.5 - 5.0 mmol/L [facility] Comment: Please note: Patients with WBC >100,000 may have falsely elevated Potassium levels. Contact the Clinical Chemistry Laboratory if there are any questions. ICa Whole Blood 1.19 1.15 - 1.33 mmol/L [facility] Comment: Note: ??Total bilirubin higher than 20 mg/dL may lead to falsely low ionized calcium. CL Whole Blood 104 98 - 107 mmol/L [facility] Gluc Whole Bld 192 65 - 199 mg/dL [facility] Comment:Diabetes: >=200 mg/d L plus symptoms. Lactate WB 2.8(H) 0.5 - 2.2 mmol/L [facility] FIO2 Art 80 % [facility] PF Ratio Art 191 [facility] Blood 01/27/2022 12:0 3 PM EST 01/27/2022 12:03 PM EST Levi Hinds MD POINT OF CARE TEST ORDERABLES Performing Organization Address City/[facility] [[email or web address]] Co de Phone Number [facility] [place] [address] * Fibrinogen (01/27/2022 11:57 AM EST) Fibrinogen 226 200 - 393 mg/dL [facility] Comment: OR Result called by ?? DEWEKE OR Results read back by: ? RANDY SINGH at 2022-01-27 12:16:49 A fibrinogen level >100 mg/dL is adequate for hemostasis in most patients without underlying bleeding disorders. Blood 01/27/2022 11:5 7 AM EST 01/27/2022 12:04 PM EST Narrative Resulting Agency Comment Spec In Lab Alicia Gtz MD HEMATOLOGY ORDERABLE S Performing Organization Address [facility] [[email or web address]] Co de Phone Number [facility] [place] [address] * (ABNORMAL) Prothrombin Time (01/27/2022 11:57 AM EST) Prothrombin Time 14.8(H) 9.4 - 12.5 sec [facility] Comment: OR Result called by ?? DEWEKE OR Results read back by: ? RANDY SINGH at 2022-01-27 12:16:49 International Normalization Ratio 1.3 [facility] Comment: OR Result called by ?? DEWEKE OR Results read back by: ? RANDY SINGH at 2022-01-27 12:16:49 An INR <2.0 indicates adequate procoagulant activity for hemostasis in most patients without underlying bleeding disorders, though the INR may not adequately reflect hemostatic capacity in patients with liver disease and synthetic impairment. The recommended target INR range for therapeutic anticoagulation is 2.0 ? 3.0 for most applications, though lower and higher ranges may be appropriate depending on clinical circumstances. Blood 01/27/2022 11:5 7 AM EST 01/27/2022 12:04 PM EST Narrative Resulting Agency Comment Spec In Lab Alicia Gtz MD HEMATOLOGY ORDERABLE S Performing Organization Address City/State/[facility] [[email or web address]] Co de Phone Number [facility] [place] [address] * Platelet count (01/27/2022 11:57 AM EST) Platelet 238 145 - 357 x10(3)/mc L [facility] Immature Plt % 3.8 0.0 - 7.4 % [facility] Comment: Limitation of the Immature Platelet Fraction (IPF)-May be less reliable when the platelet count is less than 92l194/uL due to statistical imprecision. The IPF value provides an assessment of the Bone Marrow production status. ??It is useful in differentiating Thrombocytopenia caused by platelet destruction/consumption versus decreased production. It also helps to determine the imminent release of platelets and can be therefore a helpful parameter in Chemotherapy and Bone marrow transplant patients. ELEVATED IPF value: ?? When the bone marrow is in a state of over production such as when increased destruction and consumption are the underlying issue. ?? When the marrow is recovering post chemotherapy or bone marrow transplant. LOW to NORMAL IPF value: ?? When the bone marrow in not responding and is in a decreased state of production. References: [employer] The Clinical Value of the Immature Platelet Fraction (IPF) in Cell Recovery Document Number [id number] 04/2011 [employer] The Role of the Immature Platelet Fraction (IPF) in the Differential Diagnosis of Thrombocytopenia, Document [id number] V05 P004/12 Blood 01/27/2022 11:5 7 AM EST 01/27/2022 12:04 PM EST Narrative Resulting Agency Comment Spec In Lab Alicia Gtz MD HEMATOLOGY ORDERABLE S Performing Organization Address City/[facility]/ZIP Co de Phone Number [facility] [place] [address] * (ABNORMAL) Hematocrit (01/27/2022 11:57 AM EST) Hematocrit 29.8(L) 40.5 - 48.5 % [facility] Comment: This result has been called to RANDY SINGH by Liana Boswell on 01 27 2022 at 1209, and has been read back. Blood 01/27/2022 11:5 7 AM EST 01/27/2022 12:04 PM EST Narrative Resulting Agency Comment Spec In Lab Alicia Gtz MD HEMATOLOGY ORDERABLE S Performing Organization Address [facility]/ZIP Co de Phone Number [facility] [place] [address] * (ABNORMAL) Hemoglobin (01/27/2022 11:57 AM EST) Hemoglobin 10.1(L) 13.7 - 16.5 g/dL [facility] Blood 01/27/2022 11:5 7 AM EST 01/27/2022 12:04 PM EST Narrative Resulting Agency Comment Spec In Lab Alicia Gtz MD HEMATOLOGY ORDERABLE S [facility] [place] [address] * (ABNORMAL) BLOOD GAS 2 ARTERIAL (01/27/2022 11:13 AM EST) pH, Arterial 7.36 7.35 - 7.45 [facility] PCO2, Arterial 43 35 - 45 mmHg [facility] PO2, Arterial 426(H) 85 - 104 mmHg [facility] Bicarbonate, Arterial 24.2 20.0 - 26.0 mmol/L [facility] Base Excess, Arterial -1.2 -3.0 - 3.0 mmol/L [facility] Hgb Blood Gas 10.6(L) 13.7 - 16.5 g/dL [facility] Oxyhemoglobin, Arterial 98.6(H) 94.0 - 97.0 % [facility] Carboxyhemoglob in, Arterial 0.5 % [facility] Comment: Nonsmokers: 0.5-1.5% COHB Smokers: Variable, but usually less than 10% Toxic: 20-30% COHB Lethal: Greater than 60% COHB Methemoglobin, Arterial 0.3 <=1.5 % [facility] Na Whole Blood 135 135 - 145 mmol/L [facility] K Whole Blood 4.3 3.5 - 5.0 mmol/L [facility] Comment: Please note: Patients with WBC >100,000 may have falsely elevated Potassium levels. Contact the Clinical Chemistry Laboratory if there are any questions. ICa Whole Blood 1.00(L) 1.15 - 1.33 mmol/L [facility] Comment: Note: ??Total bilirubin higher than 20 mg/dL may lead to falsely low ionized calcium. CL Whole Blood 103 98 - 107 mmol/L [facility] Gluc Whole Bld 194 65 - 199 mg/dL [facility] Comment:Diabetes: >=200 mg/d L plus symptoms. Lactate WB 2.5(H) 0.5 - 2.2 mmol/L [facility] Blood 01/27/2022 11:1 3 AM EST 01/27/2022 11:13 AM EST Levi Hinds MD POINT OF CARE TEST ORDERABLES Performing Organization Address City/[facility]/ZIP Co de Phone Number [facility] [place] [address] * Platelet count (01/27/2022 11:10 AM EST) Platelet 263 145 - 357 x10(3)/mc L [facility] Immature Plt % 3.8 0.0 - 7.4 % [facility] LABORATORY Comment: Limitation of the Immature Platelet Fraction (IPF)-May be less reliable when the platelet count is less than 52x173/uL due to statistical imprecision. The IPF value provides an assessment of the Bone Marrow production status. ??It is useful in differentiating Thrombocytopenia caused by platelet destruction/consumption versus decreased production. It also helps to determine the imminent release of platelets and can be therefore a helpful parameter in Chemotherapy and Bone marrow transplant patients. ELEVATED IPF value: ?? When the bone marrow is in a state of over production such as when increased destruction and consumption are the underlying issue. ?? When the marrow is recovering post chemotherapy or bone marrow transplant. LOW to NORMAL IPF value: ?? When the bone marrow in not responding and is in a decreased state of production. References: [employer] The Clinical Value of the Immature Platelet Fraction (IPF) in Cell Recovery Document Number 10-1143 04/2011 [employer] The Role of the Immature Platelet Fraction (IPF) in the Differential Diagnosis of Thrombocytopenia, Document [id number] V05 P004/12 Blood 01/27/2022 11:1 0 AM EST 01/27/2022 11:16 AM EST Narrative Resulting Agency Comment Spec In Lab Levi Hinds MD HEMATOLOGY ORDERABL ES Performing Organization Address City/[facility]/ZIP Co de Phone Number [facility] [place] [address] * (ABNORMAL) Hemoglobin (01/27/2022 11:10 AM EST) Hemoglobin 9.8(L) 13.7 - 16.5 g/dL [facility] Blood 01/27/2022 11:1 0 AM EST 01/27/2022 11:16 AM EST Narrative Resulting Agency Comment Spec In Lab Levi Hinds MD HEMATOLOGY ORDERABL ES Performing Organization Address [facility] [[email or web address]] Co de Phone Number [facility] [place] [address] * Fibrinogen (01/27/2022 11:10 AM EST) Fibrinogen 230 200 - 393 mg/dL [facility] Comment: OR Result called by ?? SALVLT OR Results read back by: ? Randy Singh at 2022-01-27 11:28:59 A fibrinogen level >100 mg/dL is adequate for hemostasis in most patients without underlying bleeding disorders. Blood 01/27/2022 11:1 0 AM EST 01/27/2022 11:16 AM EST Narrative Resulting Agency Comment Spec In Lab Levi Hinds MD HEMATOLOGY ORDERABL ES Performing Organization Address [facility] [[email or web address]] Co de Phone Number [facility] [place] [place] [address] * (ABNORMAL) Hematocrit (01/27/2022 11:10 AM EST) Hematocrit 28.6(L) 40.5 - 48.5 % [facility] Comment: This result has been called to RANDY SINGH by Liana Boswell on 01 27 2022 at 1124, and has been read back. Blood 01/27/2022 11:1 0 AM EST 01/27/2022 11:16 AM EST Narrative Resulting Agency Comment Spec In Lab Levi Hinds MD HEMATOLOGY ORDERABL ES Performing Organization Address [facility] [[email or web address]] Co de Phone Number [facility] [place] [place] [address] * (ABNORMAL) BLOOD GAS 2 ARTERIAL (01/27/2022 10:54 AM EST) pH, Arterial 7.37 7.35 - 7.45 [facility] PCO2, Arterial 40 35 - 45 mmHg [facility] PO2, Arterial 404(H) 85 - 104 mmHg [facility] Bicarbonate, Arterial 22.4 20.0 - 26.0 mmol/L [facility] Base Excess, Arterial -2.9 -3.0 - 3.0 mmol/L [facility] Hgb Blood Gas 10.2(L) 13.7 - 16.5 g/dL [facility] Oxyhemoglobin, Arterial 98.5(H) 94.0 - 97.0 % [facility] Carboxyhemoglob in, Arterial 0.3 % [facility] Comment: Nonsmokers: 0.5-1.5% COHB Smokers: Variable, but usually less than 10% Toxic: 20-30% COHB Lethal: Greater than 60% COHB Methemoglobin, Arterial 0.3 <=1.5 % [facility] Na Whole Blood 133(L) 135 - 145 mmol/L [facility] K Whole Blood 4.4 3.5 - 5.0 mmol/L [facility] Comment: Please note: Patients with WBC >100,000 may have falsely elevated Potassium levels. Contact the Clinical Chemistry Laboratory if there are any questions. ICa Whole Blood 0.98(L) 1.15 - 1.33 mmol/L [facility] Comment: Note: ??Total bilirubin higher than 20 mg/dL may lead to falsely low ionized calcium. CL Whole Blood 103 98 - 107 mmol/L [facility] Gluc Whole Bld 188 65 - 199 mg/dL [facility] Comment:Diabetes: >=200 mg/d L plus symptoms. Lactate WB 2.3(H) 0.5 - 2.2 mmol/L [facility] Blood 01/27/2022 10:5 4 AM EST 01/27/2022 10:54 AM EST Levi Hinds MD POINT OF CARE TEST ORDERABLES [facility] [place] [address] * (ABNORMAL) BLOOD GAS 2 ARTERIAL (01/27/2022 10:26 AM EST) pH, Arterial 7.35 7.35 - 7.45 [facility] PCO2, Arterial 44 35 - 45 mmHg [facility] PO2, Arterial 412(H) 85 - 104 mmHg [facility] Bicarbonate, Arterial 24.0 20.0 - 26.0 mmol/L [facility] Base Excess, Arterial -1.5 -3.0 - 3.0 mmol/L [facility] Hgb Blood Gas 9.6(L) 13.7 - 16.5 g/dL [facility] Oxyhemoglobin, Arterial 98.4(H) 94.0 - 97.0 % [facility] Carboxyhemoglob in, Arterial 0.4 % [facility] Comment: Nonsmokers: 0.5-1.5% COHB Smokers: Variable, but usually less than 10% Toxic: 20-30% COHB Lethal: Greater than 60% COHB Methemoglobin, Arterial 0.3 <=1.5 % [facility] Na Whole Blood 132(L) 135 - 145 mmol/L [facility] K Whole Blood 4.7 3.5 - 5.0 mmol/L [facility] Comment: Please note: Patients with WBC >100,000 may have falsely elevated Potassium levels. Contact the Clinical Chemistry Laboratory if there are any questions. ICa Whole Blood 0.96(L) 1.15 - 1.33 mmol/L [facility] Comment: Note: ??Total bilirubin higher than 20 mg/dL may lead to falsely low ionized calcium. CL Whole Blood 103 98 - 107 mmol/L [facility] Gluc Whole Bld 174 65 - 199 mg/dL [facility] Comment:Diabetes: >=200 mg/d L plus symptoms. Lactate WB 2.4(H) 0.5 - 2.2 mmol/L [facility] Blood 01/27/2022 10:2 6 AM EST 01/27/2022 10:26 AM EST Levi Hinds MD POINT OF CARE TEST ORDERABLES [facility] [place] [address] * (ABNORMAL) BLOOD GAS 2 ARTERIAL (01/27/2022 9:55 AM EST) pH, Arterial 7.40 7.35 - 7.45 [facility] PCO2, Arterial 38 35 - 45 mmHg [facility] PO2, Arterial 436(H) 85 - 104 mmHg [facility] Bicarbonate, Arterial 23.0 20.0 - 26.0 mmol/L [facility] Base Excess, Arterial -1.8 -3.0 - 3.0 mmol/L [facility] Hgb Blood Gas 9.4(L) 13.7 - 16.5 g/dL [facility] Oxyhemoglobin, Arterial 98.1(H) 94.0 - 97.0 % [facility] Carboxyhemoglob in, Arterial 0.8 % [facility] Comment: Nonsmokers: 0.5-1.5% COHB Smokers: Variable, but usually less than 10% Toxic: 20-30% COHB Lethal: Greater than 60% COHB Methemoglobin, Arterial 0.3 <=1.5 % [facility] Na Whole Blood 131(L) 135 - 145 mmol/L [facility] K Whole Blood 4.5 3.5 - 5.0 mmol/L [facility] Comment: Please note: Patients with WBC >100,000 may have falsely elevated Potassium levels. Contact the Clinical Chemistry Laboratory if there are any questions. ICa Whole Blood 0.93(L) 1.15 - 1.33 mmol/L [facility] Comment: Note: ??Total bilirubin higher than 20 mg/dL may lead to falsely low ionized calcium. CL Whole Blood 101 98 - 107 mmol/L [facility] Gluc Whole Bld 170 65 - 199 mg/dL [facility] Comment:Diabetes: >=200 mg/d L plus symptoms. Lactate WB 1.7 0.5 - 2.2 mmol/L [facility] Blood 01/27/2022 9:55 AM EST 01/27/2022 9:55 AM EST Levi Hinds MD POINT OF CARE TEST ORDERABLES [facility] [place] [address] * (ABNORMAL) BLOOD GAS 2 ARTERIAL (01/27/2022 8:20 AM EST) pH, Arterial 7.40 7.35 - 7.45 [facility] PCO2, Arterial 43 35 - 45 mmHg [facility] PO2, Arterial 183(H) 85 - 104 mmHg [facility] Bicarbonate, Arterial 26.0 20.0 - 26.0 mmol/L [facility] Base Excess, Arterial 1.2 -3.0 - 3.0 mmol/L [facility] Hgb Blood Gas 13.0(L) 13.7 - 16.5 g/dL [facility] Oxyhemoglobin, Arterial 97.5(H) 94.0 - 97.0 % [facility] Carboxyhemoglob in, Arterial 1.2 % [facility] Comment: Nonsmokers: 0.5-1.5% COHB Smokers: Variable, but usually less than 10% Toxic: 20-30% COHB Lethal: Greater than 60% COHB Methemoglobin, Arterial 0.3 <=1.5 % [facility] Na Whole Blood 139 135 - 145 mmol/L [facility] K Whole Blood 4.1 3.5 - 5.0 mmol/L [facility] Comment: Please note: Patients with WBC >100,000 may have falsely elevated Potassium levels. Contact the Clinical Chemistry Laboratory if there are any questions. ICa Whole Blood 1.08(L) 1.15 - 1.33 mmol/L [facility] Comment: Note: ??Total bilirubin higher than 20 mg/dL may lead to falsely low ionized calcium. CL Whole Blood 103 98 - 107 mmol/L [facility] Gluc Whole Bld 192 65 - 199 mg/dL [facility] Comment:Diabetes: >=200 mg/d L plus symptoms. Lactate WB 2.4(H) 0.5 - 2.2 mmol/L [facility] FIO2 Art 70 % [facility] PF Ratio Art 261 [facility] Blood 01/27/2022 8:20 AM EST 01/27/2022 8:20 AM EST Levi Hinds MD POINT OF CARE TEST ORDERABLES [facility] [place] [address] * Prepare RBC (01/27/2022 6:35 AM EST) Pathologist [facility] Dispensed? Yes [facility] Blood 01/27/2022 6:35 AM EST 01/27/2022 6:30 AM EST Levi Hinds MD BLOOD BANK PRODUCT ORDERABLES Performing Organization Address City/[facility]/ZIP Co de Phone Number [facility] [place] [address] * (ABNORMAL) POCT Glucose (01/27/2022 6:29 AM EST) Glucose, POC 218(H) 65 - 199 mg/dL [facility] Comment: Supplemental ranges: <140 mg/dL before meals <180 mg/dL all other times of the day Blood 01/27/2022 6:29 AM EST 01/27/2022 6:29 AM EST Levi Hinds MD POINT OF CARE TEST ORDERABLES [facility] [place] [address] documented in this encounter Visit Diagnoses Diagnosis S/P CABG x 4 Postsurgical aortocoronary bypass status Chest pain, unspecified type CAD (coronary artery disease) Coronary atherosclerosis of unspecified type of vessel, [place] or graft documented in this encounter Admitting Diagnoses Diagnosis CAD (coronary artery disease) Coronary atherosclerosis of unspecified type of vessel, [place] or graft documented in this encounter Administered Medications Inactive Administered Medications - up to 3 most recent administrations Medication Order MAR Action Action Date Dose Rate Site acetaminophen (Ofirmev) (1000 mg/100 mL) infusion 1,000 mg 1,000 mg, Intravenous, at 400 mL/hr, Administer over 15 Minutes, EVERY 6 HOURS SCHEDULED, 4 doses, First dose on Thu01/27/22 at 1415, Last dose on Thu01/28/22 at 0600, Maximum dose of acetaminophen is 4000 mg from all sources in 24 hours. When ordered for pain, acetaminophen should be given even when other ordered pain medications are indicated., Routine, Is ketorolac (Toradol) IV contraindicated? Yes, Can this patient tolerate oral medications or suppositories? No Given 01/28/2022 5:35 AM EST 1,000 mg 400 mL/hr Given 01/27/2022 11:45 PM EST 1,000 mg 400 mL/hr Given 01/27/2022 7:23 PM EST 1,000 mg 400 mL/hr acetaminophen (Tylenol) tablet 1,000 mg 1,000 mg, Oral, ONCE, 1 dose, On Thu01/27/22 at 0645, Administer with SIP of H2O only., Day of Surgery (Day of Procedure), Routine Given 01/27/2022 6:28 AM EST 1,000 mg acetaminophen (Tylenol) tablet 1,000 mg 1,000 mg, Oral, EVERY 6 HOURS SCHEDULED, First dose on Thu01/28/22 at 1200, Until Discontinued, For pain when taking by mouth. Maximum dose of acetaminophen is 4000 mg from all sources in 24 hours. When ordered for pain, acetaminophen should be given even when other ordered pain medications are indicated., Routine Given 01/31/2022 11:42 AM EST 1,000 m g Given 01/31/2022 5:22 AM EST 1,000 mg Given 01/31/2022 12:19 AM EST 1,000 mg albumin (human) 5% 250 mL intravenous solution 25 g, Intravenous, ONCE, 1 dose, On Thu01/27/22 at 1415, PRN as needed for volume replacement to maintain cardiac index greater than or equal to 2.0 L/min/M2, Recovery (Recovery-Hospital Unit), STAT New Bag 01/27/2022 7:06 PM EST 25 g AMIOdarone (CORDARONE) bolus from bag 150 mg 150 mg, Intravenous, Administer over 10 Minutes, ONCE, 1 dose, On Thu01/29/22 at 0745, Rapid Load. Bolus from Bag, Routine Bolus from Bag 01/29/2022 7:03 AM EST 150 mg Central Line AMIOdarone (Nexterone) (1.8 mg/mL) in dextrose (iso-osmotic) infusion 0.5-1 mg/min (16.6667-33.3333 mL/hr, rounded to 16.7-33.3 mL/hr), Intravenous, CONTINUOUS, Starting on Thu01/29/22 at 0745, Until Thu01/30/22 at 0622, Initiate loading infusion (slow): 1 mg/minute over 6 hours, then decrease to maintenance Infusion: 0.5 mg/minute over 18 hours. At 24 hours from start time, call MD regarding infusion or change to oral dosing. Rate/Dose Verify 01/30/2022 6:00 AM EST 0.5 mg/min 16.7 mL/hr Rate/Dose Verify 01/30/2022 4:00 AM EST 0.5 mg/min 16.7 mL /hr Rate/Dose Verify 01/30/2022 2:00 AM EST 0.5 mg/min 16.7 mL /hr AMIOdarone (Paceron) tablet 200 mg 200 mg, Oral, 2 TIMES DAILY, First dose on Thu01/30/22 at 0715, Until Discontinued, Routine Given 01/31/2022 8:50 AM EST 200 mg Given 01/30/2022 8:46 PM EST 200 mg Given 01/30/2022 6:45 AM EST 200 mg apixaban (Eliquis) tablet 5 mg 5 mg, Oral, 2 TIMES DAILY, First dose on Thu01/28/22 at 0900, Until Discontinued, Anticoagulant, Routine, Restricted anticoagulant, choose the most appropriate response: Continuation of ongoing therapy Given 01/31/2022 8:50 AM EST 5 mg Given 01/30/2022 8:46 PM EST 5 mg Given 01/30/2022 8:08 AM EST 5 mg aspirin chewable tablet 81 mg 81 mg, Oral, DAILY, First dose on Thu01/27/22 at 1415, Until Discontinued, Routine Given 01/31/2022 8:49 AM EST 81 mg Given 01/30/2022 8:08 AM EST 81 mg Given 01/29/2022 8:05 AM EST 81 mg atorvastatin (Lipitor) tablet 20 mg 20 mg, Oral, DAILY, First dose on Thu01/27/22 at 1415, Until Discontinued, Routine Given 01/28/2022 5:06 PM EST 20 mg atorvastatin (Lipitor) tablet 20 mg 20 mg, Oral, EVERY EVENING, First dose (after last modification) on Radha 01/30/22 at 1700, Until Discontinued, Routine Given 01/30/2022 5:08 PM EST 20 mg calcium gluconate 1g in sodium chloride 0.9% 50mL 1 g, Intravenous, ONCE, 1 dose, On Thu01/27/22 at 1800, Administer over 60 Minutes, Warning Vesicant/Irritant Medication New Bag 01/27/2022 5:28 PM EST 1 g 50 mL/hr chlorhexidine (Peridex) 0.12 % oral solution 15 mL 15 mL, Oral, EVERY 12 HOURS SCHEDULED (2 times per day), First dose on Thu01/27/22 at 1415, Until Discontinued, [place] teeth, Routine Given 01/29/2022 8:05 AM EST 15 mLs Given 01/28/2022 9:51 PM EST 15 mLs Given 01/28/2022 8:57 AM EST 15 mLs dexmedetomidine (Precedex) (4 mcg/mL) in sodium chloride 0.9% 100 mL infusion 0-1.7 mcg/kg/hr ? 119 kg (0-50.575 mL/hr, rounded to 0-50.6 mL/hr), Intravenous, CONTINUOUS, Starting on Thu01/27/22 at 1415, Until Thu01/29/22 at 1115, Titrate to sedation level of RASS Goal (-)1 to 0 . Start at 0.4 mcg/kg/hr, adjust by 0.4 mcg/kg/hr every 15 minutes. Once stable, reassess patient every 30 minutes. Rate not to exceed 1.7 mcg/kg/hr. Change rate only after assessing and documenting RASS. Reassess sedation scores within 30 minutes after every rate change. If under sedated, increase rate by 0.4 mcg/kg/hr. If over sedated, hold sedative until target RASS (-)1 to 0 achieved and then restart at 50% of previous rate. Call household appliance repairer if goal not achieved at maximum rate. If SAT is ordered and if patient meets criteria for Spontaneous Awakening Trial, titrate per protocol., Routine, Please indicate the name & specialty of the Attending Provider who authorized the use of this medication: dr. patrick Rate/Dose Verify 01/28/2022 6:00 AM EST 0.4 mcg/kg/hr 11.9 mL/hr New Bag 01/28/2022 4:23 AM EST 0.4 mcg/kg/hr 11.9 mL/hr Rate/Dose Verify 01/28/2022 4:00 AM EST 0.4 mcg/kg/hr 11.9 mL/hr dextrose 10% infusion 250 mL, at 1,000 mL/hr, Intravenous, EVERY 30 MIN PRN, Starting on Radha 01/30/22 at 0624, Until Thu01/31/22 at 1511, For BG 50-70 mg/dL: Oral treatment preferred: If able to drink, give 120 mL Juice or Regular (not diet) soda OR If NPO, give 15 gram glucose 40% oral gel massaged into buccal mucosa OR if unconscious or uncooperative, give 25 gram (250 mL) Dextrose 10% IV over 15 minutes per protocol OR, if no IV access, 1 mg Glucagon IM. For BG less than 50 mg/dL: Oral treatment preferred: If able to drink, give 240 mL Juice or Regular (not diet) soda OR If NPO, give 30 gram glucose 40% oral gel massaged in buccal mucosa OR if unconscious or uncooperative, give 25 gram (250 mL) Dextrose 10% IV over 15 minutes per protocol OR, if no IV access, 1 mg Glucagon IM. Recheck BG in 30 minutes. May repeat juice/soda, gel, dextrose or glucagon once per episode. For persistent hypoglycemia, consider longer-acting treatment for the duration of the active insulin. EPINEPHrine (Adrenalin) (8 mcg/mL) in dextrose 5% 250 mL infusion 2-10 mcg/min (15-75 mL/hr), Intravenous, CONTINUOUS, Starting on Thu01/27/22 at 1415, Until Thu01/29/22 at 0809, Titrate to keep systolic blood pressure greater than 90 mmHg. Start at 1 mcg/min, adjust by 1 mcg/min every 3 minutes. Dose not to exceed 10 mcg/min. Use if PHENYLephrine or vasopressin or NORepinephrine is ineffective. Call pager # [phone] if initiated. Concentration: 8 mcg/mL. Warning Vesicant/Irritant Medication Rate/Dose Change 01/28/2022 10:00 AM EST 1 mcg/min 7.5 mL/hr Rate/Dose Verify 01/28/2022 9:00 AM EST 2 mcg/min 15 mL/h r Rate/Dose Verify 01/28/2022 8:00 AM EST 2 mcg/min 15 mL/h r fentaNYL (PF) (50 mcg/mL) infusion syringe 50 mL 0-100 mcg/hr (0-2 mL/hr), Intravenous, CONTINUOUS, Starting on Thu01/27/22 at 1415, Until Thu01/29/22 at 1115, Titrate to patient comfort, pain scale 1-3. Start at 25 mcg/hr, adjust by 25 mcg/hr every 15 minutes. Dose not to exceed 100 mcg/hour., Routine Rate/Dose Verify 01/28/2022 10:00 AM EST 25 mcg/hr 0.5 mL/hr Rate/Dose Change 01/28/2022 8:20 AM EST 25 mcg/hr 0.5 mL/ hr Rate/Dose Verify 01/28/2022 8:00 AM EST 50 mcg/hr 1 mL/hr fentaNYL (PF) (50 mcg/mL) injection 25 mcg 25 mcg, Intravenous, EVERY 1 HOUR PRN, Starting on Thu01/27/22 at 1316, Until Thu01/29/22 at 1115, Pain, For breakthrough pain while extubated., For breakthrough pain while extubated., Routine Given 01/28/2022 10:59 PM EST 25 mcg furosemide (Lasix) (10 mg/mL) injection 20 mg 20 mg, Intravenous, 2 TIMES DAILY, First dose on Thu01/29/22 at 0900, Until Discontinued Given 01/31/2022 8:49 AM EST 20 mg Given 01/30/2022 5:09 PM EST 20 mg Given 01/30/2022 8:08 AM EST 20 mg glipiZIDE (Glucotrol) tablet 10 mg 10 mg, Oral, EVERY MORNING BEFORE BREAKFAST, First dose on Thu01/31/22 at 0800, Until Discontinued, Administer 30 minutes before the meal. Consider holding dose if patient is not eating. , Routine Given 01/31/2022 10:17 AM EST 10 mg glucagon (Glucagen) (1 mg/mL) injection solution 1 mg 1 mg, Intramuscular, EVERY 30 MIN PRN, Starting on Thu01/30/22 at 0624, Until Thu01/31/22 at 1511, Low blood sugar, For BG 50-70 mg/dL: Oral treatment preferred: If able to drink, give 120 mL Juice or Regular (not diet) soda OR If NPO, give 15 gram glucose 40% oral gel massaged into buccal mucosa OR if unconscious or uncooperative, give 25 gram (250 mL) Dextrose 10% IV over 15 minutes per protocol OR, if no IV access, 1 mg Glucagon IM. For BG less than 50 mg/dL: Oral treatment preferred: If able to drink, give 240 mL Juice or Regular (not diet) soda OR If NPO, give 30 gram glucose 40% oral gel massaged in buccal mucosa OR if unconscious or uncooperative, give 25 gram (250 mL) Dextrose 10% IV over 15 minutes per protocol OR, if no IV access, 1 mg Glucagon IM. Recheck BG in 30 minutes. May repeat juice/soda, gel, dextrose or glucagon once per episode. For persistent hypoglycemia, consider longer-acting treatment for the duration of the active insulin., Routine glucose (GLUTOSE) 40% oral geL 15-30 g, Buccal, EVERY 30 MIN PRN, Starting on Thu01/30/22 at 0624, Until Thu01/31/22 at 1511, Low blood sugar, For BG 50-70 mg/dL: Oral treatment preferred: If able to drink, give 120 mL Juice or Regular (not diet) soda OR If NPO, give 15 gram glucose 40% oral gel massaged into buccal mucosa OR if unconscious or uncooperative, give 25 gram (250 mL) Dextrose 10% IV over 15 minutes per protocol OR, if no IV access, 1 mg Glucagon IM. For BG less than 50 mg/dL: Oral treatment preferred: If able to drink, give 240 mL Juice or Regular (not diet) soda OR If NPO, give 30 gram glucose 40% oral gel massaged in buccal mucosa OR if unconscious or uncooperative, give 25 gram (250 mL) Dextrose 10% IV over 15 minutes per protocol OR, if no IV access, 1 mg Glucagon IM. Recheck BG in 30 minutes. May repeat juice/soda, gel, dextrose or glucagon once per episode. For persistent hypoglycemia, consider longer-acting treatment for the duration of the active insulin. 1 tube contains 15 grams of glucose (net weight of tube = 37.5 grams., Routine insulin lispro (HumaLOG;Admelog) (100 unit/mL) subcutaneous injection vial 0-8 Units 0-8 Units, Subcutaneous, 3 TIMES DAILY WITH MEALS, First dose on Radha 01/30/22 at 0800, Until Discontinued, MEAL ASSOCIATED Give 1 unit for every 10 grams carbohydrate. Hold if not eating or if BG less than 70 mg/dL., Routine Given 01/31/2022 8:56 AM EST 4 Units Given 01/30/2022 6:04 PM EST 3 Units insulin lispro (HumaLOG;Admelog) (100 unit/mL) subcutaneous injection vial 1-4 Units 1-4 Units, Subcutaneous, 3 TIMES DAILY BEFORE MEALS, First dose on Radha 01/30/22 at 0730, Until Discontinued, CORRECTION BOLUS [1-4 Units] Sensitive Sliding Scale (BG in mg/dL): Correction factor 40 (1 unit of insulin is expected to drop the glucose 40 mg/dL) BG 160 - 200 Give 1 unit BG 201 - 240 Give 2 units BG 241 - 280 Give 3 units BG greater than 280, give 4 units and recheck BG in 2 hours. - If recheck BG is LESS than 280, give no insulin and resume schedule - If recheck BG is GREATER than 280, give 4 units and repeat BG in 2 hours (no more than 3 times) & call for new insulin orders. DO NOT hold if NPO, unless specifically directed to do so by written order. Per Blood Glucose Monitoring Policy, re-check a BG of > 240 mg/dL in 2 hours., Routine Given 01/31/2022 11:42 AM EST 2 Units Given 01/31/2022 7:30 AM EST 2 Units Given 01/30/2022 5:09 PM EST 1 Units insulin lispro (HumaLOG;Admelog) (100 unit/mL) subcutaneous injection vial 1-6 Units 1-6 Units, Subcutaneous, ONCE, 1 dose, On Thu01/27/22 at 0715, CORRECTION BOLUS [1-6 Units] Moderate Sliding Scale (BG in mg/dL): Correction factor 20 (1 unit of insulin is expected to drop the glucose 20 mg/dL) BG 140 - 160 Give 1 unit BG 161 - 180 Give 2 units BG 181 - 200 Give 3 units BG 201 - 220 Give 4 units BG 221 - 240 Give 5 units BG greater than 240, give 6 units and recheck BG in 2 hours. - If recheck BG is LESS than 240, give no insulin and resume schedule. - If recheck BG is GREATER than 240, give 6 units and repeat BG in 2 hours (no more than 3 times) & call for new insulin orders. DO NOT hold if NPO, unless specifically directed to do so by written order. Per Blood Glucose Monitoring Policy, re-check a BG of > 240 mg/dL in 2 hours., PACU Recovery, Routine Given 01/27/2022 6:57 AM EST 4 Units Abdominal Tissue insulin regular (Myxredlin) (1 unit/mL) bolus from infusion 0-16 Units 0-16 Units, Intravenous, PER INSULIN PROTOCOL, Starting on Thu01/27/22 at 1316, Until Radha 01/30/22 at 0623, Per Protocol, BOLUS order. Type 2 Initial bolus 4 Units. Adjustment bolus per insulin infusion protocol: IV insulin Bolus scale: For BG in mg/dL (250-299 = 8 units, 300-359 = 12 units, greater than 360 = 16 units), Routine Bolus from Bag 01/27/2022 8:21 PM EST 8 Units Bolus from Bag 01/27/2022 6:21 PM EST 8 Units insulin regular (Myxredlin) (1 unit/mL) in sodium chloride 0.9% 100 mL infusion 0.5-16 Units/hr (0.5-16 mL/hr), Intravenous, CONTINUOUS, Starting on 01/27/22 at 1415, Until Radha 01/30/22 at 0623, Type 2 diabetes. Current blood glucose 180 - 239 Titration- aim for target range of 140 - 180 mg/dL. Check BG every hour unless otherwise indicated. [[ Initial bolus of 4 units, then begin continuous infusion at 3.5 units/hour. ]] If BG at the time the infusion is started outside of the CURRENT BLOOD GLUCOSE range above, contact MD for new starting rate/bolus order. When infusion is paused, turn it back on as soon as possible per protocol. If BG at the time the infusion is started is outside of the CURRENT BLOOD GLUCOSE range above, contact provider for new starting rate/bolus order. Current BG less than 80 - Stop insulin. If BG less than 70, treat per hypoglycemia protocol. Re-check BG in 30 minutes and as soon as BG is greater than 80, restart with rate 50% of previous rate. If infusion stopped after previous rate had been 0.5 unit/hour, recheck every hour and when BG greater than 100 and higher than last test restart at 0.5 unit/hour. IF INFUSION IS PAUSED, TURN IT BACK ON SOON POSSIBLE, PER PROTOCOL. Current BG 80 - 139 - If BG dropped 10 mg/dL or more since last test, decrease rate by 50% and re-check in 30 minutes. Otherwise, decrease rate by 0.5 units/hour. Current BG 140 - 180 - If BG dropped 50 mg/dL or more since last test, decrease rate by 1 unit/hour. Otherwise, maintain same rate. Current BG 181 - 220 - If BG is lower than last test, maintain same rate. Otherwise, increase rate by 0.5 units/hour. Current BG 221 - 250 - If BG dropped 30 mg/dL or more since last test, maintain same rate. Otherwise, increase rate by 1 unit/hour. Current BG greater than 250 - Increase rate by 1 unit/hour AND bolus with Regular insulin IV as per IV Bolus Scale. Re-check BG in 30 minutes. THE FIRST DOSE OF SC INSULIN OUGHT TO BE ADMINISTERED BEFORE DISCONTINUING THE INFUSION. AN OVERLAP OF 2-3 HOURS IS RECOMMENDED. Continue to monitor the BG hourly., Routine Rate/Dose Verify 01/30/2022 6:00 AM EST 1.5 Units/hr 1.5 mL/hr Rate/Dose Verify 01/30/2022 4:00 AM EST 1.5 Units/hr 1.5 m L/hr Rate/Dose Change 01/30/2022 2:00 AM EST 1.5 Units/hr 1.5 m L/hr ipratropium-albuteroL (Duoneb) 0.5 mg-3 mg(2.5 mg base)/3 mL nebulizer solution 3 mL 3 mL, Nebulization, EVERY 4 HOURS PRN, Starting on Thu01/29/22 at 0848, Until Thu01/31/22 at 1511, Wheezing, Routine lidocaine (Lidoderm) 5% patch 2 patch 2 patch, Transdermal, EVERY 24 HOURS, First dose on Thu01/27/22 at 2330, Until Discontinued, Apply patch(es) for 12 hours, and then remove for 12 hours., Routine Patch Applied 01/31/2022 12:20 AM EST 2 patches 11- Chest (Left) Patch Applied 01/29/2022 11:02 PM EST 2 patches 11- Chest (Left) Patch Applied 01/29/2022 12:02 AM EST 2 patches 11- Chest (Left) lidocaine (Lidoderm) topical patch REMOVAL Transdermal, EVERY 24 HOURS, First dose on Thu01/28/22 at 1100, Until Discontinued, Remove lidocaine 5% patch magnesium hydroxide (Milk of Magnesia) (240 mg/mL) oral liquid 10 mL 10 mL, Oral, DAILY, First dose on Thu01/29/22 at 0900, Until Discontinued, Post-op day 2. Do not use with renal insufficiency., Routine Given 01/31/2022 8:4 9 AM EST 10 mLs Given 01/30/2022 8:08 AM EST 10 mLs Given 01/29/2022 8:05 AM EST 10 mLs magnesium sulfate 1 g in dextrose 5% 100 mL infusion 1 g, Intravenous, ONCE, 1 dose, On Thu01/27/22 at 2215, Administer over 60 Minutes New Bag 01/27/2022 10:31 PM EST 1 g 100 mL/hr metoprolol tartrate (Lopressor) tablet 12.5 mg 12.5 mg, Oral, EVERY 12 HOURS SCHEDULED (2 times per day), First dose on Thu01/29/22 at 0900, Until Discontinued, Routine Given 01/29/2022 8:59 AM EST 12.5 mg metoprolol tartrate (Lopressor) tablet 25 mg 25 mg, Oral, EVERY 12 HOURS SCHEDULED (2 times per day), First dose (after last modification) on Thu01/29/22 at 2100, Until Discontinued, Routine Given 01/31/2022 8:50 AM EST 25 mg Given 01/30/2022 8:46 PM EST 25 mg Given 01/30/2022 8:08 AM EST 25 mg metoprolol tartrate (Lopressor) tablet 25 mg 25 mg, Oral, ONCE, 1 dose, On Thu01/31/22 at 1200, Routine Given 01/31/2022 11:42 AM EST 25 mg metoprolol tartrate (Lopressor) tablet 50 mg 50 mg, Oral, EVERY 12 HOURS SCHEDULED (2 times per day), First dose (after last modification) on Thu01/31/22 at 2100, Until Discontinued, Routine NORepinephrine (Levophed) (16 mcg/mL) in dextrose 5% 250 mL infusion 0-30 mcg/min (0-112.5 mL/hr), Intravenous, CONTINUOUS, Starting on Thu01/27/22 at 1415, Until Thu01/29/22 at 1553, Titrate to keep systolic blood pressure greater than 90 mmHg. Start at 2 mcg/minute and adjust by 2 mcg/min every 3 minutes. Dose not to exceed 30 mcg/minute. Begin if PHENYLephrine and/or vasopressin ineffective. Call pager # [phone] if initiated., Routine Rate/Dose Verify 01/28/2022 10:00 AM EST 1 mcg/min 3.8 mL/hr Rate/Dose Change 01/28/2022 9:00 AM EST 1 mcg/min 3.8 mL/ hr Rate/Dose Change 01/28/2022 8:20 AM EST 3 mcg/min 11.3 mL /hr ondansetron (pf) (Zofran) (2 mg/mL) injection 4 mg 4 mg, Intravenous, EVERY 8 HOURS PRN, Starting on Thu01/27/22 at 1316, Until Thu01/31/22 at 1511, Nausea Given 01/27/2022 10:32 PM EST 4 mg oxyCODONE (Roxicodone) tablet 5-10 mg 5-10 mg, Oral, EVERY 4 HOURS PRN, Starting on Thu01/27/22 at 1316, Until Thu01/31/22 at 1511, Pain, - When tolerating oral medications. - Initial dose 5 mg. - If pain control not adequate in 60 minutes, give additional 5 mg., Routine Given 01/31/2022 10:07 AM EST 10 mg Given 01/31/2022 5:22 AM EST 10 mg Given 01/31/2022 12:20 AM EST 10 mg pantoprazole (Protonix) injection 40 mg 40 mg, Intravenous, DAILY, First dose on Thu01/27/22 at 1415, Until Discontinued, Reconstitute with 10 mL of normal saline to a concentration of 4 mg/mL and infuse slowly over 2 minutes. , Routine Given 01/29/2022 8:05 AM EST 40 mg Given 01/28/2022 8:57 AM EST 40 mg Given 01/27/2022 2:40 PM EST 40 mg pantoprazole EC (Protonix) tablet 40 mg 40 mg, Oral, DAILY, First dose on Thu01/27/22 at 1415, Until Discontinued, DO NOT CRUSH OR OPEN If unable to take PO, may give IV Given 01/31/2022 8:49 AM EST 40 mg Given 01/30/2022 8:08 AM EST 40 mg propofoL (Diprivan) (10 mg/mL) infusion 0-50 mcg/kg/min ? 119 kg (0-35.7 mL/hr), Intravenous, CONTINUOUS, Starting on Thu01/27/22 at 1415, Until Thu01/29/22 at 1115, Titrate to sedation level of RASS Goal (-) 1. Start at 10 mcg/kg/min, adjust rate by 5 mcg/kg/min every 3 minutes. Dose not to exceed 50 mcg/kg/minute. Discontinue upon extubation., Routine Rate/Dose Verify 01/27/2022 7:00 PM EST 50 mcg/kg/min 35.7 mL/hr New Bag 01/27/2022 6:42 PM EST 50 mcg/kg/min 35.7 mL/hr Rate/Dose Verify 01/27/2022 3:46 PM EST 50 mcg/kg/min 35.7 mL/hr senna-docusate (Pericolace) 8.6-50 mg per tablet 2 tablet 2 tablet, Oral, DAILY, First dose on Thu01/28/22 at 2100, Until Discontinued, Post-op day 1, Routine Given 01/30/2022 8:46 PM EST 2 tablets Given 01/29/2022 9:26 PM EST 2 tablets Given 01/28/2022 9:51 PM EST 2 tablets simethicone (Mylicon) chewable tablet 80 mg 80 mg, Oral, EVERY 6 HOURS PRN, Starting on Thu01/29/22 at 1158, Until Thu01/31/22 at 1511, Cramping, Routine Given 01/30/2022 4:15 AM EST 80 mg Given 01/29/2022 2:05 PM EST 80 mg sodium bicarbonate 8.4 % (1 meq/ml) IV solution 50 mEq 50 mEq, Intravenous, ONCE, 1 dose, On Thu01/27/22 at 1745, Warning Vesicant/Irritant Medication , Routine Given 01/27/2022 5:27 PM EST 50 mEq sodium bicarbonate 8.4 % (1 meq/ml) IV solution 50 mEq 50 mEq, Intravenous, ONCE, 1 dose, On Thu01/27/22 at 1915, Warning Vesicant/Irritant Medication , Routine Given 01/27/2022 6:35 PM EST 50 mEq sodium chloride 0.9 % (flush) (BD PosiFlush Normal Saline 0.9) flush 5 mL 5 mL, Intravenous, EVERY 8 HOURS, First dose on Thu01/29/22 at 1645, Until Discontinued, Routine Given 01/31/2022 8:56 AM EST 5 mLs Given 01/29/2022 11:03 PM EST 5 mLs sodium chloride 0.9% infusion 0-500 mL/hr, Intravenous, CONTINUOUS, Starting on Thu01/27/22 at 1415, Until Thu01/29/22 at 1115, Bolus 250 mL every 5 minutes as needed for volume replacement to maintain cardiac index greater than or equal to 2.0 L/min/M2. Maximum volume 2 L. Call household appliance repairer for additional fluid orders: pager #[phone]. Rate/Dose Verify 01/28/2022 4:00 AM EST 1 mL/hr 1 mL/hr Rate/Dose Verify 01/28/2022 2:00 AM EST 1 mL/hr 1 mL/hr Rate/Dose Verify 01/28/2022 12:00 AM EST 1 mL/hr 1 mL/h r sodium chloride 0.9% infusion 10-30 mL/hr, Intravenous, DAILY PRN, Starting on Thu01/27/22 at 1316, Until Thu01/29/22 at 1553, Side port TKO rate, per CV nursing protocol. Rate/Dose Verify 01/29/2022 10:00 AM EST 10 mL/hr 10 mL/hr Rate/Dose Change 01/29/2022 7:55 AM EST 10 mL/hr 10 mL/h r Rate/Dose Verify 01/29/2022 6:00 AM EST 30 mL/hr 30 mL/h r sodium chloride 0.9% infusion 10-30 mL/hr, Intravenous, DAILY PRN, Starting on Thu01/27/22 at 1316, Until Thu01/27/22 at 1721, Side port TKO rate, per [facility] nrusing protocol. Rate/Dose Verify 01/27/2022 3:44 PM EST 30 mL/hr 30 mL/hr New Bag 01/27/2022 2:40 PM EST 30 mL/hr 30 mL/hr documented in this encounter Active and Recently Administered Medications Times are shown in EST. Scheduled Medication Order 01/29/2022 01/30/2022 01/31/2022 acetaminophen (Tylenol) tablet 1,000 mg(Linked Group 1) 1,000 mg, Oral, EVERY 6 HOURS SCHEDULED, First dose on Thu01/28/22 at 1200, Until Discontinued, For pain when taking by mouth. Maximum dose of acetaminophen is 4000 mg from all sources in 24 hours. When ordered for pain, acetaminophen should be given even when other ordered pain medications are indicated., Routine 0001 (Given - Provider: Roberth Camilo RN)0603 (Given - Provider: Roberth Camilo RN)1148 (Given - Provider: Jensen Gardner)1703 (Given - Provider: Lis Brennan RN)2302 (Given - Provider: Roberth Camilo RN) 0545 (Given - Provider: Roberth Camilo RN)1117 (Given - Provider: Rehan Cuevas, GET)1708 (Given - Provider: Rehan Cuevas RN) 0019 (Given - Provider: Iain Dukes RN)0522 (Given - Provider: Iain Dukes, GET)1142 (Given - Provider: Rehan Cuevas, RN) AMIOdarone (CORDARONE) bolus from bag 150 mg (COMPLETED)(Linked Group 2) 150 mg, Intravenous, Administer over 10 Minutes, ONCE, 1 dose, On Thu01/29/22 at 0745, Rapid Load. Bolus from Bag, Routine 0703 (Bolus from Bag - Provider: Roberth Camilo RN) AMIOdarone (Paceron) tablet 200 mg 200 mg, Oral, 2 TIMES DAILY, First dose on Thu01/30/22 at 0715, Until Discontinued, Routine 0645 (Given - Provider: Roberth Camilo RN)204 (Given - Provider: Iain Dukes, GET) 0850 (Given - Provider: Rehan Cuevas, GET) apixaban (Eliquis) tablet 5 mg 5 mg, Oral, 2 TIMES DAILY, First dose on Thu01/28/22 at 0900, Until Discontinued, Anticoagulant, Routine, Restricted anticoagulant, choose the most appropriate response: Continuation of ongoing therapy 0805 (Given - Provider: Lis Brennan RN)212 (Given - Provider: Roberth Camilo RN) 0808 (Given - Provider: Rehan Cuevas, GET)204 (Given - Provider: Iain Dukes, GET) 0850 (Given - Provider: Rehan Cuevas, RN) aspirin chewable tablet 81 mg(Linked Group 3) 81 mg, Oral, DAILY, First dose on Thu01/27/22 at 1415, Until Discontinued, Routine 0805 (Given - Provider: Lis Brennan RN) 0808 (Given - Provider: Rehan Cuevas, GET) 0849 (Given - Provider: Rehan Cuevas, RN) atorvastatin (Lipitor) tablet 20 mg 20 mg, Oral, EVERY EVENING, First dose (after last modification) on Thu01/30/22 at 1700, Until Discontinued, Routine 1708 (Given - Provider: Rehan Cuevas, GET) chlorhexidine (Peridex) 0.12 % oral solution 15 mL (CANCELED) 15 mL, Oral, EVERY 12 HOURS SCHEDULED (2 times per day), First dose on Thu01/27/22 at 1415, Until Discontinued, [place] teeth, Routine 0805 (Given - Provider: Lis Brennan RN) furosemide (Lasix) (10 mg/mL) injection 20 mg 20 mg, Intravenous, 2 TIMES DAILY, First dose on Thu01/29/22 at 0900, Until Discontinued 0859 (Given - Provider: Lis Brennan RN)1703 (Given - Provider: Lis Brennan RN) 0808 (Given - Provider: Rehan Cuevas RN)1709 (Given - Provider: Rehan Cuevas RN) 0849 (Given - Provider: Rehan Cuevas RN) glipiZIDE (Glucotrol) tablet 10 mg 10 mg, Oral, EVERY MORNING BEFORE BREAKFAST, First dose on Thu01/31/22 at 0800, Until Discontinued, Administer 30 minutes before the meal. Consider holding dose if patient is not eating. , Routine 1017 (Given - Provider: Rehan Cuevas RN) insulin lispro (HumaLOG;Admelog) (100 unit/mL) subcutaneous injection vial 0-8 Units 0-8 Units, Subcutaneous, 3 TIMES DAILY WITH MEALS, First dose on Thu01/30/22 at 0800, Until Discontinued, [employer] Give 1 unit for every 10 grams carbohydrate. Hold if not eating or if BG less than 70 mg/dL., Routine 0800 (Not Given - Provider: Rehan Cuevas RN - Reason: Order parameters not met)1200 (Not Given - Provider: Rehan Cuevas RN - Reason: Order parameters not met)1804 (Given - Provider: Rehan Cuevas RN) 0856 (Given - Provider: Rehan Cuevas RN)1200 (Not Given - Provider: Rehan Cuevas RN - Reason: Order parameters not met) insulin lispro (HumaLOG;Admelog) (100 unit/mL) subcutaneous injection vial 1-4 Units(Linked Group 4) 1-4 Units, Subcutaneous, 3 TIMES DAILY BEFORE MEALS, First dose on Thu01/30/22 at 0730, Until Discontinued, CORRECTION BOLUS [1-4 Units] Sensitive Sliding Scale (BG in mg/dL): Correction factor 40 (1 unit of insulin is expected to drop the glucose 40 mg/dL) BG 160 - 200 Give 1 unit BG 201 - 240 Give 2 units BG 241 - 280 Give 3 units BG greater than 280, give 4 units and recheck BG in 2 hours. - If recheck BG is LESS than 280, give no insulin and resume schedule - If recheck BG is GREATER than 280, give 4 units and repeat BG in 2 hours (no more than 3 times) & call for new insulin orders. DO NOT hold if NPO, unless specifically directed to do so by written order. Per Blood Glucose Monitoring Policy, re-check a BG of > 240 mg/dL in 2 hours., Routine 0737 (Given - Provider: Rehan Cuevas RN)1117 (Given - Provider: Rehan Cuevas, RN)1709 (Given - Provider: Rehan Cuevas, RN) 0730 (Given - Provider: Rehan Cuevas, RN)1142 (Given - Provider: Rehan Cuevas, RN) lidocaine (Lidoderm) 5% patch 2 patch(Linked Group 5) 2 patch, Transdermal, EVERY 24 HOURS, First dose on Thu01/27/22 at 2330, Until Discontinued, Apply patch(es) for 12 hours, and then remove for 12 hours., Routine 0002 (Patch Applied - Provider: Roberth Camilo RN)2302 (Patch Applied - Provider: Roberth Camilo RN) 0020 (Patch Applied - Provider: Iain Dukes RN) lidocaine (Lidoderm) topical patch REMOVAL(Linked Group 5) Transdermal, EVERY 24 HOURS, First dose on Thu01/28/22 at 1100, Until Discontinued, Remove lidocaine 5% patch 1100 (Patch Removed - Provider: Lis Brennan RN) 1100 (Patch Removed - Provider: Rehan Cuevas RN) 1100 (Patch Removed - Provider: Rehan Cuevas, RN) magnesium hydroxide (Milk of Magnesia) (240 mg/mL) oral liquid 10 mL 10 mL, Oral, DAILY, First dose on Thu01/29/22 at 0900, Until Discontinued, Post-op day 2. Do not use with renal insufficiency., Routine 0805 (Given - Provider: Lis Brennan RN) 0808 (Given - Provider: Rehan Cuevas, GET) 0849 (Given - Provider: Rehan Cuevas, RN) metoprolol tartrate (Lopressor) tablet 12.5 mg (CANCELED) 12.5 mg, Oral, EVERY 12 HOURS SCHEDULED (2 times per day), First dose on Thu01/29/22 at 0900, Until Discontinued, Routine 0859 (Given - Provider: Lis Brennan RN) metoprolol tartrate (Lopressor) tablet 25 mg (CANCELED) 25 mg, Oral, EVERY 12 HOURS SCHEDULED (2 times per day), First dose (after last modification) on Thu01/29/22 at 2100, Until Discontinued, Routine 2125 (Given - Provider: Roberth Camilo RN) 0808 (Given - Provider: Rehan Cuevas RN)2045 (Given - Provider: Iain Dukes RN) 0850 (Given - Provider: Rehan Cuevas, GET) metoprolol tartrate (Lopressor) tablet 25 mg (COMPLETED) 25 mg, Oral, ONCE, 1 dose, On Thu01/31/22 at 1200, Routine 1142 (Given - Provider: Rehna Cuevas, GET) metoprolol tartrate (Lopressor) tablet 50 mg 50 mg, Oral, EVERY 12 HOURS SCHEDULED (2 times per day), First dose (after last modification) on Thu01/31/22 at 2100, Until Discontinued, Routine pantoprazole (Protonix) injection 40 mg (CANCELED)(Linked Group 6) 40 mg, Intravenous, DAILY, First dose on Thu01/27/22 at 1415, Until Discontinued, Reconstitute with 10 mL of normal saline to a concentration of 4 mg/mL and infuse slowly over 2 minutes. , Routine 0805 (Given - Provider: Lis Brennan RN) 0808 (See Alternative - Provider: Rehan Cuevas RN) 0849 (See Alternative - Provider: Rehan Cuevas RN) pantoprazole EC (Protonix) tablet 40 mg(Linked Group 6) 40 mg, Oral, DAILY, First dose on Thu01/27/22 at 1415, Until Discontinued, DO NOT CRUSH OR OPEN If unable to take PO, may give IV 0805 (See Alternative - Provider: Lis Brennan RN) 0808 (Given - Provider: Rehan Cuevas RN) 0849 (Given - Provider: Rehan Cuevas, GET) senna-docusate (Pericolace) 8.6-50 mg per tablet 2 tablet 2 tablet, Oral, DAILY, First dose on Thu01/28/22 at 2100, Until Discontinued, Post-op day 1, Routine 2125 (Given - Provider: Roberth Camilo RN) 204 (Given - Provider: Iain Dukes, GET) sodium chloride 0.9 % (flush) (BD PosiFlush Normal Saline 0.9) flush 5 mL 5 mL, Intravenous, EVERY 8 HOURS, First dose on Thu01/29/22 at 1645, Until Discontinued, Routine 1645 (Hold - Provider: Lis Brennan RN - Reason: Order parameters not met - Comment: IV infusing)2303 (Given - Provider: Roberth Camilo RN) 0045 (Hold - Provider: Roberth Camilo RN - Reason: See comment - Comment: given earlier per patient request)0845 (Not Given - Provider: Rehan Cuevas RN - Reason: Order parameters not met)1645 (Not Given - Provider: Rehan Cuevas RN - Reason: Order parameters not met) 0045 (Not Given - Provider: Iain Dukes RN - Reason: See comment - Comment: Given with assessment)0856 (Given - Provider: Rehan Cuevas RN) Continuous Medication Order 01/29/2022 01/30/2022 01/31/2022 AMIOdarone (Nexterone) (1.8 mg/mL) in dextrose (iso-osmotic) infusion (CANCELED)(Linked Group 2) 0.5-1 mg/min (16.6667-33.3333 mL/hr, rounded to 16.7-33.3 mL/hr), Intravenous, CONTINUOUS, Starting on Thu01/29/22 at 0745, Until Radha 01/30/22 at 0622, Initiate loading infusion (slow): 1 mg/minute over 6 hours, then decrease to maintenance Infusion: 0.5 mg/minute over 18 hours. At 24 hours from start time, call MD regarding infusion or change to oral dosing. 0704 (New Bag - Provider: Roberth Camilo RN)1000 (Rate/Dose Verify - Provider: Lis Brennan RN)1154 (New Bag - Provider: Jensen Gardner)1300 (Rate/Dose Change - Provider: Lis Brennan RN)1400 (Rate/Dose Verify - Provider: Lis Brennan RN)1600 (Rate/Dose Verify - Provider: Lis Brennan RN)1800 (Rate/Dose Verify - Provider: Lis Brennan RN)2000 (Rate/Dose Verify - Provider: Roberth Camilo RN)2200 (Rate/Dose Verify - Provider: Roberth Camilo RN) 0000 (Rate/Dose Verify - Provider: Roberth Camilo RN)0100 (New Bag - Provider: Roberth Camilo RN)0200 (Rate/Dose Verify - Provider: Roberth Camilo RN)0400 (Rate/Dose Verify - Provider: Roberth Camilo RN)0600 (Rate/Dose Verify - Provider: Roberth Camilo RN)0622 (Stopped - Provider: Roberth Camilo RN) insulin regular (Myxredlin) (1 unit/mL) in sodium chloride 0.9% 100 mL infusion (CANCELED) 0.5-16 Units/hr (0.5-16 mL/hr), Intravenous, CONTINUOUS, Starting on Thu01/27/22 at 1415, Until Radha 01/30/22 at 0623, Type 2 diabetes. Current blood glucose 180 - 239 Titration- aim for target range of 140 - 180 mg/dL. Check BG every hour unless otherwise indicated. [[ Initial bolus of 4 units, then begin continuous infusion at 3.5 units/hour. ]] If BG at the time the infusion is started outside of the CURRENT BLOOD GLUCOSE range above, contact MD for new starting rate/bolus order. When infusion is paused, turn it back on as soon as possible per protocol. If BG at the time the infusion is started is outside of the CURRENT BLOOD GLUCOSE range above, contact provider for new starting rate/bolus order. Current BG less than 80 - Stop insulin. If BG less than 70, treat per hypoglycemia protocol. Re-check BG in 30 minutes and as soon as BG is greater than 80, restart with rate 50% of previous rate. If infusion stopped after previous rate had been 0.5 unit/hour, recheck every hour and when BG greater than 100 and higher than last test restart at 0.5 unit/hour. IF INFUSION IS PAUSED, TURN IT BACK ON SOON POSSIBLE, PER PROTOCOL. Current BG 80 - 139 - If BG dropped 10 mg/dL or more since last test, decrease rate by 50% and re-check in 30 minutes. Otherwise, decrease rate by 0.5 units/hour. Current BG 140 - 180 - If BG dropped 50 mg/dL or more since last test, decrease rate by 1 unit/hour. Otherwise, maintain same rate. Current BG 181 - 220 - If BG is lower than last test, maintain same rate. Otherwise, increase rate by 0.5 units/hour. Current BG 221 - 250 - If BG dropped 30 mg/dL or more since last test, maintain same rate. Otherwise, increase rate by 1 unit/hour. Current BG greater than 250 - Increase rate by 1 unit/hour AND bolus with Regular insulin IV as per IV Bolus Scale. Re-check BG in 30 minutes. THE FIRST DOSE OF SC INSULIN OUGHT TO BE ADMINISTERED BEFORE DISCONTINUING THE INFUSION. AN OVERLAP OF 2-3 HOURS IS RECOMMENDED. Continue to monitor the BG hourly., Routine 0000 (Rate/Dose Verify - Provider: Roberth Camilo RN)0200 (Rate/Dose Verify - Provider: Roberth Camilo RN)0400 (Rate/Dose Verify - Provider: Roberth Camilo RN)0600 (Rate/Dose Verify - Provider: Roberth Camilo RN)0750 (Rate/Dose Change - Provider: Lis Brennan RN)1008 (Rate/Dose Change - Provider: Lis Brennan, GET)1108 (Rate/Dose Change - Provider: Lis Brennan, RN)1148 (New Bag - Provider: Jensen Gardner)1510 (Rate/Dose Change - Provider: Lis Brennan, GET)1600 (Rate/Dose Verify - Provider: Lis Brennan, GET)1800 (Rate/Dose Verify - Provider: Lis Brennan, RN)2000 (Rate/Dose Verify - Provider: Roberth Camilo RN)2200 (Rate/Dose Change - Provider: Roberth Camilo RN) 0000 (Rate/Dose Verify - Provider: Roberth Camilo RN)0200 (Rate/Dose Change - Provider: Roberth Camilo RN)0400 (Rate/Dose Verify - Provider: Roberth Camilo RN)0600 (Rate/Dose Verify - Provider: Roberth Camilo RN)0623 (Stopped - Provider: Roberth Camilo RN) PRN Medication Order 01/29/2022 01/30/2022 01/31/2022 bisacodyL (Dulcolax) suppository 10 mg 10 mg, Rectal, DAILY PRN, Starting on Thu01/30/22 at 0000, Until Thu01/31/22 at 1511, Constipation, Starting post-op day 3., Routine dextrose 10% infusion(Linked Group 7) 250 mL, at 1,000 mL/hr, Intravenous, EVERY 30 MIN PRN, Starting on Thu01/30/22 at 0624, Until Thu01/31/22 at 1511, For BG 50-70 mg/dL: Oral treatment preferred: If able to drink, give 120 mL Juice or Regular (not diet) soda OR If NPO, give 15 gram glucose 40% oral gel massaged into buccal mucosa OR if unconscious or uncooperative, give 25 gram (250 mL) Dextrose 10% IV over 15 minutes per protocol OR, if no IV access, 1 mg Glucagon IM. For BG less than 50 mg/dL: Oral treatment preferred: If able to drink, give 240 mL Juice or Regular (not diet) soda OR If NPO, give 30 gram glucose 40% oral gel massaged in buccal mucosa OR if unconscious or uncooperative, give 25 gram (250 mL) Dextrose 10% IV over 15 minutes per protocol OR, if no IV access, 1 mg Glucagon IM. Recheck BG in 30 minutes. May repeat juice/soda, gel, dextrose or glucagon once per episode. For persistent hypoglycemia, consider longer-acting treatment for the duration of the active insulin. glucagon (Glucagen) (1 mg/mL) injection solution 1 mg(Linked Group 7) 1 mg, Intramuscular, EVERY 30 MIN PRN, Starting on Thu01/30/22 at 0624, Until Thu01/31/22 at 1511, Low blood sugar, For BG 50-70 mg/dL: Oral treatment preferred: If able to drink, give 120 mL Juice or Regular (not diet) soda OR If NPO, give 15 gram glucose 40% oral gel massaged into buccal mucosa OR if unconscious or uncooperative, give 25 gram (250 mL) Dextrose 10% IV over 15 minutes per protocol OR, if no IV access, 1 mg Glucagon IM. For BG less than 50 mg/dL: Oral treatment preferred: If able to drink, give 240 mL Juice or Regular (not diet) soda OR If NPO, give 30 gram glucose 40% oral gel massaged in buccal mucosa OR if unconscious or uncooperative, give 25 gram (250 mL) Dextrose 10% IV over 15 minutes per protocol OR, if no IV access, 1 mg Glucagon IM. Recheck BG in 30 minutes. May repeat juice/soda, gel, dextrose or glucagon once per episode. For persistent hypoglycemia, consider longer-acting treatment for the duration of the active insulin., Routine glucose (GLUTOSE) 40% oral geL(Linked Group 7) 15-30 g, Buccal, EVERY 30 MIN PRN, Starting on Radha 01/30/22 at 0624, Until Thu01/31/22 at 1511, Low blood sugar, For BG 50-70 mg/dL: Oral treatment preferred: If able to drink, give 120 mL Juice or Regular (not diet) soda OR If NPO, give 15 gram glucose 40% oral gel massaged into buccal mucosa OR if unconscious or uncooperative, give 25 gram (250 mL) Dextrose 10% IV over 15 minutes per protocol OR, if no IV access, 1 mg Glucagon IM. For BG less than 50 mg/dL: Oral treatment preferred: If able to drink, give 240 mL Juice or Regular (not diet) soda OR If NPO, give 30 gram glucose 40% oral gel massaged in buccal mucosa OR if unconscious or uncooperative, give 25 gram (250 mL) Dextrose 10% IV over 15 minutes per protocol OR, if no IV access, 1 mg Glucagon IM. Recheck BG in 30 minutes. May repeat juice/soda, gel, dextrose or glucagon once per episode. For persistent hypoglycemia, consider longer-acting treatment for the duration of the active insulin. 1 tube contains 15 grams of glucose (net weight of tube = 37.5 grams., Routine ipratropium-albuteroL (Duoneb) 0.5 mg-3 mg(2.5 mg base)/3 mL nebulizer solution 3 mL 3 mL, Nebulization, EVERY 4 HOURS PRN, Starting on Thu01/29/22 at 0848, Until Thu01/31/22 at 1511, Wheezing, Routine ondansetron (pf) (Zofran) (2 mg/mL) injection 4 mg 4 mg, Intravenous, EVERY 8 HOURS PRN, Starting on Thu01/27/22 at 1316, Until Thu01/31/22 at 1511, Nausea oxyCODONE (Roxicodone) tablet 5-10 mg 5-10 mg, Oral, EVERY 4 HOURS PRN, Starting on Thu01/27/22 at 1316, Until Thu01/31/22 at 1511, Pain, - When tolerating oral medications. - Initial dose 5 mg. - If pain control not adequate in 60 minutes, give additional 5 mg., Routine 0208 (Given - Provider: Roberth Camilo RN)0603 (Given - Provider: Roberth Camilo RN)0949 (Given - Provider: Lis Brennan RN)1405 (Given - Provider: Lis Brennan RN)1824 (Given - Provider: Lis Brennan RN)2302 (Given - Provider: Roberth Camilo RN) 0259 (Given - Provider: Roberth Camilo RN)0645 (Given - Provider: Roberth Camilo RN)1117 (Given - Provider: Rehan Cueavs, GET)1542 (Given - Provider: Rehan Cuevas, RN)2013 (Given - Provider: Chula Mandel RN) 0020 (Given - Provider: Iain Dukes, GET)0522 (Given - Provider: Iain Dukes, GET)1007 (Given - Provider: Lorene Bartlett RN) simethicone (Mylicon) chewable tablet 80 mg 80 mg, Oral, EVERY 6 HOURS PRN, Starting on Thu01/29/22 at 1158, Until Thu01/31/22 at 1511, Cramping, Routine 1405 (Given - Provider: Lis Brennan, GET) 0415 (Given - Provider: Roberth Camilo, GET) sodium chloride 0.9% infusion (CANCELED) 10-30 mL/hr, Intravenous, DAILY PRN, Starting on Thu01/27/22 at 1316, Until Thu01/29/22 at 1553, Side port TKO rate, per CC nursing protocol. 0000 (Rate/Dose Verify - Provider: Roberth Camilo RN)0200 (Rate/Dose Verify - Provider: Roberth Camilo, GET)0400 (Rate/Dose Verify - Provider: Roberth Camilo, GET)0600 (Rate/Dose Verify - Provider: Roberth Camilo RN)0755 (Rate/Dose Change - Provider: Lis Brennan RN)1000 (Rate/Dose Verify - Provider: Lis Brennan, GET)1553 (Stopped - Provider: Lis Brennan RN) Linked Groups Order Group 1: acetaminophen (Ofirmev) (1000 mg/100 mL) infusion 1,000 mg (COMPLETED) 1,000 mg, Intravenous, at 400 mL/hr, Administer over 15 Minutes, EVERY 6 HOURS SCHEDULED, 4 doses, First dose on Thu01/27/22 at 1415, Last dose on Thu01/28/22 at 0600, Maximum dose of acetaminophen is 4000 mg from all sources in 24 hours. When ordered for pain, acetaminophen should be given even when other ordered pain medications are indicated., Routine, Is ketorolac (Toradol) IV contraindicated? Yes, Can this patient tolerate oral medications or suppositories? No Followed by acetaminophen (Tylenol) tablet 1,000 mgJump to med 1,000 mg, Oral, EVERY 6 HOURS SCHEDULED, First dose on Thu01/28/22 at 1200, Until Discontinued, For pain when taking by mouth. Maximum dose of acetaminophen is 4000 mg from all sources in 24 hours. When ordered for pain, acetaminophen should be given even when other ordered pain medications are indicated., Routine Group 2: AMIOdarone (CORDARONE) bolus from bag 150 mg (COMPLETED)Jump to med 150 mg, Intravenous, Administer over 10 Minutes, ONCE, 1 dose, On Thu01/29/22 at 0745, Rapid Load. Bolus from Bag, Routine And AMIOdarone (Nexterone) (1.8 mg/mL) in dextrose (iso-osmotic) infusion (CANCELED)Jump to med 0.5-1 mg/min (16.6667-33.3333 mL/hr, rounded to 16.7-33.3 mL/hr), Intravenous, CONTINUOUS, Starting on Thu01/29/22 at 0745, Until Thu01/30/22 at 0622, Initiate loading infusion (slow): 1 mg/minute over 6 hours, then decrease to maintenance Infusion: 0.5 mg/minute over 18 hours. At 24 hours from start time, call MD regarding infusion or change to oral dosing. Group 3: aspirin chewable tablet 81 mgJump to med 81 mg, Oral, DAILY, First dose on Thu01/27/22 at 1415, Until Discontinued, Routine Or aspirin suppository 300 mg (CANCELED) 300 mg, Rectal, DAILY, First dose on Thu01/27/22 at 1415, Until Discontinued, Start on Post-Op Day 0, please give within 6 hours upon arrival to Unit. Give UT if unable to take PO, Routine Group 4: POCT Fingerstick Glucose (CANCELED) Routine, 4 TIMES DAILY BEFORE MEALS & AT BEDTIME, First occurrence on Thu01/30/22 at 0700, Until Specified, Consider choosing FOUR TIMES A DAY BEFORE MEALS AND AT BEDTIME as frequency for: Patients who have good hypoglycemia awareness: -Patients who are eating meals during the day and sleeping at night -Patient who are otherwise stable And insulin lispro (HumaLOG;Admelog) (100 unit/mL) subcutaneous injection vial 1-4 UnitsJump to med 1-4 Units, Subcutaneous, 3 TIMES DAILY BEFORE MEALS, First dose on Thu01/30/22 at 0730, Until Discontinued, CORRECTION BOLUS [1-4 Units] Sensitive Sliding Scale (BG in mg/dL): Correction factor 40 (1 unit of insulin is expected to drop the glucose 40 mg/dL) BG 160 - 200 Give 1 unit BG 201 - 240 Give 2 units BG 241 - 280 Give 3 units BG greater than 280, give 4 units and recheck BG in 2 hours. - If recheck BG is LESS than 280, give no insulin and resume schedule - If recheck BG is GREATER than 280, give 4 units and repeat BG in 2 hours (no more than 3 times) & call for new insulin orders. DO NOT hold if NPO, unless specifically directed to do so by written order. Per Blood Glucose Monitoring Policy, re-check a BG of > 240 mg/dL in 2 hours., Routine Group 5: lidocaine (Lidoderm) 5% patch 2 patchJump to med 2 patch, Transdermal, EVERY 24 HOURS, First dose on Thu01/27/22 at 2330, Until Discontinued, Apply patch(es) for 12 hours, and then remove for 12 hours., Routine And lidocaine (Lidoderm) topical patch REMOVALJump to med Transdermal, EVERY 24 HOURS, First dose on Thu01/28/22 at 1100, Until Discontinued, Remove lidocaine 5% patch Group 6: pantoprazole EC (Protonix) tablet 40 mgJump to med 40 mg, Oral, DAILY, First dose on Thu01/27/22 at 1415, Until Discontinued, DO NOT CRUSH OR OPEN If unable to take PO, may give IV Or pantoprazole (Protonix) injection 40 mg (CANCELED)Jump to med 40 mg, Intravenous, DAILY, First dose on Thu01/27/22 at 1415, Until Discontinued, Reconstitute with 10 mL of normal saline to a concentration of 4 mg/mL and infuse slowly over 2 minutes. , Routine Group 7: glucose (GLUTOSE) 40% oral geLJump to med 15-30 g, Buccal, EVERY 30 MIN PRN, Starting on Thu01/30/22 at 0624, Until Thu01/31/22 at 1511, Low blood sugar, For BG 50-70 mg/dL: Oral treatment preferred: If able to drink, give 120 mL Juice or Regular (not diet) soda OR If NPO, give 15 gram glucose 40% oral gel massaged into buccal mucosa OR if unconscious or uncooperative, give 25 gram (250 mL) Dextrose 10% IV over 15 minutes per protocol OR, if no IV access, 1 mg Glucagon IM. For BG less than 50 mg/dL: Oral treatment preferred: If able to drink, give 240 mL Juice or Regular (not diet) soda OR If NPO, give 30 gram glucose 40% oral gel massaged in buccal mucosa OR if unconscious or uncooperative, give 25 gram (250 mL) Dextrose 10% IV over 15 minutes per protocol OR, if no IV access, 1 mg Glucagon IM. Recheck BG in 30 minutes. May repeat juice/soda, gel, dextrose or glucagon once per episode. For persistent hypoglycemia, consider longer- acting treatment for the duration of the active insulin. 1 tube contains 15 grams of glucose (net weight of tube = 37.5 grams., Routine Or dextrose 10% infusionJump to med 250 mL, at 1,000 mL/hr, Intravenous, EVERY 30 MIN PRN, Starting on Radha 01/30/22 at 0624, Until Thu01/31/22 at 1511, For BG 50-70 mg/dL: Oral treatment preferred: If able to drink, give 120 mL Juice or Regular (not diet) soda OR If NPO, give 15 gram glucose 40% oral gel massaged into buccal mucosa OR if unconscious or uncooperative, give 25 gram (250 mL) Dextrose 10% IV over 15 minutes per protocol OR, if no IV access, 1 mg Glucagon IM. For BG less than 50 mg/dL: Oral treatment preferred: If able to drink, give 240 mL Juice or Regular (not diet) soda OR If NPO, give 30 gram glucose 40% oral gel massaged in buccal mucosa OR if unconscious or uncooperative, give 25 gram (250 mL) Dextrose 10% IV over 15 minutes per protocol OR, if no IV access, 1 mg Glucagon IM. Recheck BG in 30 minutes. May repeat juice/soda, gel, dextrose or glucagon once per episode. For persistent hypoglycemia, consider longer-acting treatment for the duration of the active insulin. Or glucagon (Glucagen) (1 mg/mL) injection solution 1 mgJump to med 1 mg, Intramuscular, EVERY 30 MIN PRN, Starting on Radha 01/30/22 at 0624, Until Thu01/31/22 at 1511, Low blood sugar, For BG 50-70 mg/dL: Oral treatment preferred: If able to drink, give 120 mL Juice or Regular (not diet) soda OR If NPO, give 15 gram glucose 40% oral gel massaged into buccal mucosa OR if unconscious or uncooperative, give 25 gram (250 mL) Dextrose 10% IV over 15 minutes per protocol OR, if no IV access, 1 mg Glucagon IM. For BG less than 50 mg/dL: Oral treatment preferred: If able to drink, give 240 mL Juice or Regular (not diet) soda OR If NPO, give 30 gram glucose 40% oral gel massaged in buccal mucosa OR if unconscious or uncooperative, give 25 gram (250 mL) Dextrose 10% IV over 15 minutes per protocol OR, if no IV access, 1 mg Glucagon IM. Recheck BG in 30 minutes. May repeat juice/soda, gel, dextrose or glucagon once per episode. For persistent hypoglycemia, consider longer-acting treatment for the duration of the active insulin., Routine documented in this encounter Care Teams Director Of Acquisitions Relationship Specialty Start Date End Date Randa Rosas APRN [address] [place] [address] PCP - General 12/29/12 04/16/22 documented as of this encounter
--- OUTSIDE RECORDS SUMMARY | 2024-11-18 16:54 | XMS_ITS | Encounter Summary ---
Author Organization [facility] Address [facility] [place] [address] Care Team Providers Care Branch Credit Counselor Name Role Phone Randa Rosas APRN Primary Care Provider [phone]- [phone] Encounter Details Date Type Department Care Team (Late st Contact Info) Description 01/09/2022 [place] [phone] [facility] Social History Tobacco Use Types Packs/Day Years [...] as of this encounter Miscellaneous Notes * Addendum Note - Anthony Johns RN - 01/09/2022 9:53 AM ESTAddended by: ANTHONY JOHNS on: 01/09/2022 09:53 AM Modules accepted: Orders * Telephone Encounter - [facility] - 01/09/2022 8:36 AM EST Is this the first test for Covid 19 If no, please list date of previous test, result, and type of test (Molecular, Antigen, Antibody orunknown): Resides in penitentiary, [facility] or other residential facility No Employee or Household Member of Employee No Healthcare Worker No Telephone call placed/received to schedule Covid 19 testing with patient. Ordering provider: Levi Beck Testing Facility: [facility] Date of Testin/25 Time of Testing:TBD Symptoms: Pre Op Please send order to listed facility. documented in this encounter Plan of Treatment Not on file documented as of this encounter Visit Diagnoses Diagnosis Encounter for screening laboratory testing for COVID-19 virus documented in this encounter Care Teams Branch Credit Counselor Relationship Specialty Start Date End Date Randa Rosas APRN [address] [place] [address] PCP - General 12/29/12 04/16/22 documented as of this encounter
--- OUTSIDE RECORDS SUMMARY | 2024-11-18 16:54 | XMS_ITS | Encounter Summary ---
Author Organization [facility] Address [facility] [place] [address] Care Team Providers Care Senior Linux Unix Administrator Name Role Phone Randa Rosas APRN Primary Care Provider +1- [phone] Encounter Details Date Type Department Care Team (Late st Contact Info) Description 01/09/2022 Telephone [place] [phone] [facility] K[facility] Social History Tobacco Use Types Packs/Day Years [...] encounter Miscellaneous Notes * Telephone Encounter - Bebe Kidd - 01/09/2022 8:08 AM EST LM w/ for pt to call back in regards to his pre-op Covid test on 01/24 for a procedure on 01/27 documented in this encounter Plan of Treatment Not on file documented as of this encounter Visit Diagnoses Not on filedocumented in this encounter Care Teams Senior Linux Unix Administrator Relationship Specialty Start Date End Date Randa Rosas APRN [address] [facility] [place] [address] PCP - General 12/29/12 04/16/22 documented as of this encounter
--- OUTSIDE RECORDS SUMMARY | 2024-11-18 16:54 | XMS_ITS | Encounter Summary ---
Author Organization [facility] Address [facility] [place] [address] Care Team Providers Care Circus Train Supervisor Name Role Phone Randa Rosas APRN Primary Care Provider +1- [phone] Encounter Details Date Type Department Care Team (Late st Contact Info) Description 01/10/2022 Orders [place] [phone] Levi Hinds MD Coronary artery disease, unspecified vessel or lesion type, unspecified whether angina present, unspecified whether ewiiaapaayp or transplanted heart (Primary Dx) Social History Tobacco Use Types Packs/Day Years [...] on file documented as of this encounter Results * EKG 12 Lead (03/04/2022 11:10 AM EDT) Ventricular rate 67 BPM MUSE SYSTEM Atrial Rate 67 BPM MUSE SYSTEM P-R Interval 190 ms MUSE SYSTEM QRS Duration 116 ms MUSE SYSTEM Q-T Interval 400 ms MUSE SYSTEM QTC Calculated (Bezet) 422 ms MUSE SYSTEM Calculated R [place] 84 degrees MUSE SYSTEM Calculated T [place] -140 degrees MUSE SYSTEM INTERPRETATION Normal sinus rhythm Incomplete left bundle block T wave abnormality, consider inferior ischemia ??versus repolarization abnormality due to conduction delay Abnormal ECG When compared with ECG of 29-JAN-2022 06:50, Sinus rhythm has replaced Atrial fibrillation Vent. rate has decreased BY ??65 BPM Confirmed by MD Efrain, Christa ([id number]) on 03/04/2022 4:08:27 PM MUSE SYSTEM 03/04/2022 11:1 0 AM EDT 03/04/2022 4:08 PM EDT Levi Hinds MD ECG ORDERABLES MUSE SYSTEM * XR Chest PA & Lateral (Generic) [...] who have questions please contact the health critical care registered nurse that requested your imaging first. ? Narrative 03/04/2022 10:33 AM EDT EXAMINATION: XR [...] patients who have questions please contactthe health critical care registered nurse that requested your imaging first. Levi Hinds MD IMG DX ORDERABLES documented in this encounter Visit Diagnoses Diagnosis Coronary artery disease, unspecified vessel or lesion type, unspecified whether angina present, unspecified whether ewiiaapaayp or transplanted heart- Primary Coronary artery disease, unspecified vessel or lesion type, unspecified whether angina present, unspecified whether ewiiaapaayp or transplanted heart documented in this encounter Care Teams Circus Train Supervisor Relationship Specialty Start Date End Date Randa Rosas APRN [address] [place] [address] PCP - General 12/29/12 04/16/22 documented as of this encounter
--- OUTSIDE RECORDS SUMMARY | 2024-11-18 16:54 | XMS_ITS | Encounter Summary ---
Author Organization [facility] Address [facility] [place] [address] Care Team Providers Care Kiln Stoker Name Role Phone Randa Rosas APRN Primary Care Provider [phone] Reason for Visit * Auth/Cert Specialty Diagnoses / Procedures Referred By Contac t Referred To Contact Diagnoses CAD (coronary artery disease) Atherosclerotic heart disease of ass[place]ibo[place] and g[place] tribes coronary artery with other forms of angina pectoris CAD Procedures PRO CABG, ARTERIAL, SINGLE PRO CABG, ARTERY-VEIN, THREE PRO ENDOSCOPY W/VIDEO-ASST VEIN HARVEST, CABG @CABG, USING ARTERIAL GRAFT;SINGLE ARTERIAL GRAFT (WRVU 33.75) @CABG; 3 VENOUS GRAFTS & ARTERIAL GRAFT (WRVU 10.49) ENDOSCOPIC HARVEST VEIN(S) FOR CABG (WRVU 0.31) Referral ID Status Reason Start Date Expiration Date Visits Re quested Visits Authorized [id number] 1 1 Encounter Details Date Type Department Care Team (Late st Contact Info) Description 01/27/2022 7:30 AM EST - 01/27/2022 12:25 PM EST Surgery [place] [address] Levi Hinds MD @CABG, USING ARTERIAL GRAFT;SINGLE ARTERIAL GRAFT (WRVU 33.75) Social History Tobacco Use Types Packs/Day Years [...] Sign Reading Time Taken Comments Blood Pressure 137/77 01/27/2022 6:13 AM EST Right arm: 139/72 Pulse 87 01/27/2022 6:13 AM EST Temperature 36.3 ??C (97.3 ??F) 01/27/2022 6 :13 AM EST Respiratory Rate - - Oxygen Saturation 98% 01/27/2022 6:1 3 AM EST Inhaled Oxygen Concentration - - Weight 119 kg (262 lb 4.8 oz) 01/27/2022 6:13 AM EST Height 170.2 cm (5' 7) 01/27/2022 6:13 AM EST Body Mass Index 41.19 01/27/2022 6:13 AM EST documented in this encounter Discharge Summaries * Rk Cain PA - 01/31/2022 10:27 AM EST Inpatient - Discharge Summary Patient Name: Adrien Cheung Patient Age: 66 y.o. Birthdate: 1955 Language: [place] Race: White Ethnicity: Not nor Admit Date: [...] chest x-ray, EKG. Inpatient Provider Contact Information: [facility] [place] [facility] [place] [address] FAX [phone] Discharge Diagnoses (Hospital Problems) Primary Diagnoses: 01/27/22 [...] PILONIDAL CYST EXCISION ? ? PRG CATH [facility] LEFT HEART CATH & ARTS W/INJ & ANGIO IMG S&I N/A 12/30/2021 CORONARY ANGIOGRAPHY; W LHC,POSSIBLE PCI performed by Praneeth Malhotra MD at [facility] CATH LABS ??? PRO ADJ TISS XFER SCALP, EXTREM 10.1-30 05/11/2013 ADJ.TISSUE TRANSFER, REARRANGEMENT, 10.1 TO 30 SQ.CM, LEGS performed by Oscar Soto MD at [facility] MAIN OR ??? PRO CABG, ARTERIAL, SINGLE N/A 01/27/2022 @CABG, USING ARTERIAL GRAFT;SINGLE ARTERIAL GRAFT (WRVU 33.75) performed by Levi Hinds MD at [facility] MAIN OR ??? PRO CABG, ARTERY-VEIN, THREE N/A 01/27/2022 @CABG; 3 VENOUS GRAFTS & ARTERIAL GRAFT (WRVU 10.49) performed by Levi Hinds MD at [facility] MAIN OR ??? PRO COLONOSCOPY, DIAGNOSTIC N/A 03/23/2015 COLONOSCOPY, DIAGNOSTIC performed by Bobby Hills MD at [facility] ENDOSCOPY ??? PRO CYSTOSCOPY, INSERT URETERAL STENT 05/11/2013 CYSTO, STENT PLACEMENT INTRAOP, TEMPORARY performed by Mark Khan MD at [facility] OR ??? PRO ENDOSCOPY W/VIDEO-ASST VEIN HARVEST, CABG N/A 01/27/2022 ENDOSCOPIC HARVEST VEIN(S) FOR CABG (WRVU 0.31) performed by Levi Hinds MD at [facility] OR ??? PRO EXCLUSION, SMALL BOWEL FROM PELVIS 05/11/2013 @EXCLUSION OF SMALL INTESTINE FROM PELVIS performed by Bobby Hills MD at [facility] OR ??? PRO EXPLORATORY OF ABDOMEN N/A 10/29/2017 @EXPLORATORY LAPAROTOMY, WITH/WITHOUT BIOPSY(S) (WRVU 12.54) performed by Theo Washington MD Counts include 234 beds at the [facility] OR ??? PRO LAP, SURG PROCTECTOMY W COLOSTOMY 05/11/2013 @LAPAROSCOPIC PROCTECTOMY, COMPLETE, APR W COLOSTOMY performed by Bobby Hills MD at [facility] OR ??? PRO MUSCLE-SKIN FLAP, LEG 05/11/2013 FLAP, MYOCUTANEOUS OR FASCIOCUTANEOUS, LOWER EXTREMITY performed by Oscar Soto MD at [facility] OR ??? PRO OMENTAL FLAP, INTRA-ABDOMINAL 05/11/2013 @OMENTAL FLAP, INTRA-ABDOMINAL performed by Mark Khan MD at [facility] OR ??? PRO REMOVE ABD LYMPH NODES RAD REGNL 05/11/2013 @LYMPHADENECTOMY,ABDOMINAL,REGIONAL,MULTIPLE NODES performed by Bobby Hills MD at [facility] OR ??? PRO REPAIR INCISIONAL HERNIA, REDUCIBLE N/A 10/29/2017 REPAIR INITIAL INCISIONAL OR VENTRAL HERNIA REDUCIBLE (WRVU 11.92) performed by Theo Washington MD at [facility] OR ? ? PRO UNLISTED PX ABD PRTM&OMENTUM N/A 10/29/2017 INCARCERATED PARASTOMAL HERNIA REPAIR (WRVU 11.1) performed by Theo Washington MD at [facility] OR ??? TONSILLECTOMY AND ADENOIDECTOMY ??? [...] tablet Take 20 mg by mouth daily. 1/ tab= 20mg 01/24/2022 at Unknown time ??? [...] x 4 Adrien Cheung was admitted to [facility] on 01/27/2022 via the Same Day Program. [...] Smokeless Tobacco Never Used Tobacco Comment smokes abraham [facility] Data Medications: Pre-operative beta niyah? Not given [...] Levi Hinds and/or the Cardiac Surgery Physician Health Insurance Assessor Team may be reached at . Weight: [...] Dr. Levi Chappell. You may use a [place] Track or treadmill but avoid any pulling [...] friends, go to a movie, go to mormon, etc. Heavy activities: No hunting, skiing, jogging, [...] should resume a low fat, low cholesterol, [place] Heart Association Diet/Diabetic diet. Driving: No driving [...] 8:30 AM ECHO REGULAR Non-Invasive Cardiology Lab [facility] Arrive at: Health Insurance Sales Agent Area 4A [phone] 02/11/2022 10:50 AM Levi Hinds MD Cardiac Surgery at [facility] Arrive at: Health Insurance Sales Agent Area [phone] 03/04/2022 9:45 AM [facility] DX ROOM 9 XRay at [facility] Arrive at: Health Insurance Sales Agent Area [phone] Please go to Health Insurance Sales Agent Area ([place] Location). 03/04/2022 11:10 AM Levi Hinds MD Cardiac Surgery at [facility] Arrive at: Health Insurance Sales Agent Area [phone] Future Orders Complete By Expires Echocardiogram Transthoracic [13379 CPT(R)] As directed Process Instructions: Scheduling Instructions: Comments: Evaluate for pleural effusion Questions: Where will study be performed?: [facility] Clinics Is a Bubble Study requested?: Does the patient have Congenital Heart Disease?: Does patient require sedation?: GA rationale: Referral to Home Health - at DISCHARGE [YVS8546 CPT(R)] As directed Process Instructions: Scheduling Instructions: Comments: DOCUMENTATION FOR VNA SERVICES (INCLUDING THOSE PATIENTS WITH MEDICARE COVERAGE REQUIRING HOME VNA SERVICES AND/OR HOSPICE SERVICES) PATIENT'S LOCATION: [place] [address] (home) Supervisor Purification's Name: Self In discussion with the attending physician, it is certified that this patient is under their care and that they, or a Nurse Practitioner, or Physician Health Insurance Assessor who is working directly with them, hada [...] need for services as follows: HOME HEALTH AGENCY:[facility] PHONE: [phone] FAX: [phone] RN orders: Cardiopulmonary assessment, incisional assessment, assess [...] issues please call the Cardiac SurgeryOffice at [phone] FOR MEDICARE ONLY: In discussion with the [...] noted. Questions: [facility] post [facility]: home What services are requested: Registered Nurse Physical Therapy Start date: Responsible MD post discharge contact info: PCP and Dr Hinds Arrangements for VNA/home care: As above. VN RN OR PCP TO PLEASE REMOVE CHEST TUBE SUTURES ON OR AFTER 02/11/22 Signed: Rk Cain PA-C [facility] [place]iac [place] [facility] [place] [address] FAX [phone] Date: 01/31/2022 CC: VALENTIN Naylor Christie, APRN [address] [place] [phone] documented in this encounter Discharge Instructions * [...] Levi Hinds and/or the Cardiac Surgery Physician Health Insurance Assessor Team may be reached at . Weight: [...] Dr. Levi Chappell. You may use a [place] Track or treadmill but avoid any pulling [...] friends, go to a movie, go to mormon, etc. Heavy activities: No hunting, skiing, jogging, [...] should resume a low fat, low cholesterol, [place] Heart Association Diet/Diabetic diet. Driving: No driving [...] End Date fluticasone propionate (Flonase) 50 mcg/actuation [place], Suspension as needed. 01/07/2022 metoprolol tartrate (Lopressor) [...] Heart Rate from SpO2: [70 bpm-94 bpm] 01/29 0701 - 01/30 0700 In: 1062 [P.O.:295; I.V.:767] Out: 2315 [...] CDI without drainage or crepitus Tubes/Lines/Drains: piv, jeff, pw Assessment/Plan: 66 y.o. male 3 Days [...] 0600 and on the weekends please page [phone]. * Roberth Camilo RN - 01/30/2022 6:47 [...] 0600 and on the weekends please page [phone]. * Roberth Camilo RN - 01/29/2022 6:26 AM EST Pt ambulating in [place] this morning, able to complete 1 lap around the unit. Pt has been receiving pain meds throughout the night to control incisional pain. Pt began to have unsustained atrial fibrillation with ventricular response of 110- 130 at 0545, now is in sustained afib 130's, PA manager business continuity has been paged, awaiting response. * Claudia [...] or crepitus Tubes/Lines/Drains: piv, ct x 2, keisha evans/jeff michael, sara Assessment/Plan: 66 y.o. male 1 Day Post-Op [...] 0600 and on the weekends please page [phone]. * Alicia Singh, [facility] - 01/28/2022 4:50 AM EST CTICU Protocol: [...] PCI performed by Praneeth Malhotra MD at [facility] CATH LABS ??? PRO ADJ TISS XFER SCALP, EXTREM 10.1-30 ?? 05/11/2013 ?? ADJ.TISSUE TRANSFER, REARRANGEMENT, 10.1 TO 30 SQ.CM, LEGS performed by Oscar Soto MD at [facility] OR ??? PRO COLONOSCOPY, DIAGNOSTIC N/A 03/23/2015 ?? COLONOSCOPY, DIAGNOSTIC performed by Bobby Hills MD at [facility] ENDOSCOPY ??? PRO CYSTOSCOPY, INSERT URETERAL STENT ?? 05/11/2013 ?? CYSTO, STENT PLACEMENT INTRAOP, TEMPORARY performed by Mark Khan MD at [facility] OR ??? PRO EXCLUSION, SMALL BOWEL FROM PELVIS ?? 05/11/2013 ?? @EXCLUSION OF SMALL INTESTINE FROM PELVIS performed by Bobby Hills MD at [facility] OR ??? PRO EXPLORATORY OF ABDOMEN N/A 10/29/2017 ?? @EXPLORATORY LAPAROTOMY, WITH/WITHOUT BIOPSY(S) (WRVU 12.54) performed by Theo Washington MDat [facility] OR ??? PRO LAP, SURG PROCTECTOMY W COLOSTOMY ?? 05/11/2013 ?? @LAPAROSCOPIC PROCTECTOMY, COMPLETE, APR W COLOSTOMY performed by Bobby Hills MD at [facility] OR ??? PRO MUSCLE-SKIN FLAP, LEG ?? 05/11/2013 ?? FLAP, MYOCUTANEOUS OR FASCIOCUTANEOUS, LOWER EXTREMITY performed by Oscar Soto MD at [facility] OR ??? PRO OMENTAL FLAP, INTRA-ABDOMINAL ?? 05/11/2013 ?? @OMENTAL FLAP, INTRA-ABDOMINAL performed by Mark Khan MD at [facility] OR ??? PRO REMOVE ABD LYMPH NODES RAD REGNL ?? 05/11/2013 ?? @LYMPHADENECTOMY,ABDOMINAL,REGIONAL,MULTIPLE NODES performed by Bobby Hills MD at [facility] OR ??? PRO REPAIR INCISIONAL HERNIA, REDUCIBLE N/A 10/29/2017 ?? REPAIR INITIAL INCISIONAL OR VENTRAL HERNIA REDUCIBLE (WRVU 11.92) performed by Rajat Washington MD at [facility] OR ? ? PRO UNLISTED PX ABD PRTM&OMENTUM N/A 10/29/2017 ?? INCARCERATED PARASTOMAL HERNIA REPAIR (WRVU 11.1) performed by Theo Washington MD at [facility] MAIN OR ??? TONSILLECTOMY AND ADENOIDECTOMY ? VASECTOMY ? Family History: Family History Problem Relation Age of Onset ??? Diabetes Father ? no famly h/o cnancer ? Social History: Social History ?? Socioeconomic History ??? Marital status: ? Spouse name: None ??? Number of children: None ??? Years of education: None ??? Highest education level: None Occupational History ??? 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 Comment: [employer] Tobacco Use ??? Smoking status: Former Smoker ? Quit date: 11/30/1996 ? Years since quittin.1 ??? Smokeless tobacco: Never [...] total occlusion. ?Distal flow was via the ass[place] and [place] tribes vessel and bridging collaterals. ?There also was [...] in size. ??Distal flow was via the [place] and [place] tribes vessel and ?collaterals from the LAD. ?Right Coronary Artery ?There was a single discrete total occlusion of the proximal segment ?of the right coronary artery (RCA). ??The RCA was large. ??Distal flow ?was via the [place] and [place] tribes vessel, collaterals from the LAD as well [...] ? PILONIDAL CYST EXCISION ? PRG CATH PLND LEFT HEART CATH & ARTS W/INJ & ANGIO IMG S&I N/A 12/30/2021 ?? CORONARY ANGIOGRAPHY; W LHC,POSSIBLE PCI performed by Praneeth Malhotra MD at [facility] CATH LABS ??? PRO ADJ TISS XFER SCALP, EXTREM 10.1-30 ?? 05/11/2013 ?? ADJ.TISSUE TRANSFER, REARRANGEMENT, 10.1 TO 30 SQ.CM, LEGS performed by Oscar Soto MD at [facility] OR ??? PRO COLONOSCOPY, DIAGNOSTIC N/A 03/23/2015 ?? COLONOSCOPY, DIAGNOSTIC performed by Bobby Hills MD at [facility] ENDOSCOPY ??? PRO CYSTOSCOPY, INSERT URETERAL STENT ?? 05/11/2013 ?? CYSTO, STENT PLACEMENT INTRAOP, TEMPORARY performed by Mark Khan MD at [facility] OR ??? PRO EXCLUSION, SMALL BOWEL FROM PELVIS ?? 05/11/2013 ?? @EXCLUSION OF SMALL INTESTINE FROM PELVIS performed by Bobby Hills MD at [facility] OR ??? PRO EXPLORATORY OF ABDOMEN N/A 10/29/2017 ?? @EXPLORATORY LAPAROTOMY, WITH/WITHOUT BIOPSY(S) (WRVU 12.54) performed by Theo Washington MDat [facility] OR ??? PRO LAP, SURG PROCTECTOMY W COLOSTOMY ?? 05/11/2013 ?? @LAPAROSCOPIC PROCTECTOMY, COMPLETE, APR W COLOSTOMY performed by Bobby Hills MD at [facility] OR ??? PRO MUSCLE-SKIN FLAP, LEG ?? 05/11/2013 ?? FLAP, MYOCUTANEOUS OR FASCIOCUTANEOUS, LOWER EXTREMITY performed by Oscar Soto MD at [facility] OR ??? PRO OMENTAL FLAP, INTRA-ABDOMINAL ?? 05/11/2013 ?? @OMENTAL FLAP, INTRA-ABDOMINAL performed by Mark Khan MD at [facility] OR ??? PRO REMOVE ABD LYMPH NODES RAD REGNL ?? 05/11/2013 ?? @LYMPHADENECTOMY,ABDOMINAL,REGIONAL,MULTIPLE NODES performed by Bobby Hills MD at [facility] OR ??? PRO REPAIR INCISIONAL HERNIA, REDUCIBLE N/A 10/29/2017 ?? REPAIR INITIAL INCISIONAL OR VENTRAL HERNIA REDUCIBLE (WRVU 11.92) performed by Rajat Washington MD at [facility] OR ? ? PRO UNLISTED PX ABD PRTM&OMENTUM N/A 10/29/2017 ?? INCARCERATED PARASTOMAL HERNIA REPAIR (WRVU 11.1) performed by Theo Washington MD at [facility] OR ??? TONSILLECTOMY AND ADENOIDECTOMY ? VASECTOMY ? Family History: Family History Problem Relation Age of Onset ??? Diabetes Father ? no famly h/o cnancer ? Social History: Social History ?? Socioeconomic History ??? Marital status: ? Spouse name: None ??? Number of children: None ??? Years of education: None ??? Highest education level: None Occupational History ??? 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 Comment: [place] Tobacco Use ??? Smoking status: Former Smoker ? Quit date: 11/30/1996 ? Years since quittin.1 ??? Smokeless tobacco: Never [...] mg by mouth daily. / tab= 20mg ? glipiZIDE (GLUCOTROL) 10 mg [...] total occlusion. ?Distal flow was via the [place] and [place] tribes vessel and bridging collaterals. ?There also was [...] in size. ??Distal flow was via the [place] and [place] tribes vessel and ?collaterals from the LAD. ?Right Coronary Artery ?There was a single discrete total occlusion of the proximal segment ?of the right coronary artery (RCA). ??The RCA was large. ??Distal flow ?was via the [place] and [place] tribes vessel, collaterals from the LAD as well [...] Parker RN - 01/31/2022 12:38 PM EST [facility] CARDIAC REHABILITATION Adrien Cheung was seen today regarding participation in the outpatient Phase 2 Cardiac Rehabilitation at [facility]. The patient agrees to a referral to [...] Component Value Date COVID19 Not Detected 01/30/2022 [id number] Not Detected 01/27/2022 Past medical History: Past [...] Who is your DPOA-HC?: Other (see comment) (Charlette SIFUENTES) Current Coping/Education/Information Needs: Coping well with hospital [...] walker at home) Home Address listed as: [address] [address] Social & Family Supports: Extended Emergency Contact Information Primary Emergency Contact: Levi Cheung [facility] Mobile Relation: Child Secondary Emergency Contact: Charlette [place] Address: [address] [place] [address] [facility] Mobile Relation: Friend Current Care Provided by: [...] Addiction likely Other Pertinent/Service Specific Information: Significant other, 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 Health/Prescription Coverage: Primary Insurance: [employer] MANAGED MEDICARE Payor: [employer] MANAGED MEDICARE / Plan: [employer] MANAGED MEDICARE / Product Type: *No Product type* / Secondary Insurance: N/A Prescription Coverage: Yes [place] [facility] [place] [address] [address] [facility] - [address] [address] [place] Status: Patient is a : No Primary Care Provider: Randa Rosas APRN [phone] Patient/Caregiver Goals of Treatment: To go home [...] Contact information for follow-up [facility] [place] [address] [place] [phone] MACEY spoke with Sherley at agency, she reports [...] none Patient is insured through: Primary Insurance: [facility] MANAGED MEDICARE Payor: P MANAGED MEDICARE / Plan: [facility] MANAGED MEDICARE / Product Type: *No Product type* / Secondary Insurance: N/A Prescription Coverage: Preferred Pharmacy: [facility] - [address] [address] [facility] - [address] [address] This plan was formulated with input from [...] Operative Note Patient Name: Adrien Cheung : 191821 MR#: [id number] Case Date: 01/27/2022 Surgeon: Surgeon(s) and Role: * Levi Hinds MD - Primary * Gustavo Jean Baptiste PA - Physician Health Insurance Assessor * Miriam Xiao PA - Physician Health Insurance Assessor Preoperative diagnosis: CAD Postoperative diagnosis: CAD Procedure(s) [...] 8:22 AM EST 01/28/2022 Adrien Cheung 1955 [id number] Preoperative Diagnosis: Coronary artery disease Unstable Angina Postoperative Diagnosis: Coronary artery diseaseUnstable Angina Procedure: CABG times 4: JONES to LAD, SVG to diag and om, SVG to rca. Endoscopic vein harvest Surgeon: Levi Hinds M.D. Health Insurance Assessor: Fran gibbs Anesthesia: General endotracheal anesthesia Drains: [...] 01/27/2022 10:30 PM EST RAPID COVID-19 PCR (MH/APD/NLH) Routine 01/27/2022 9:01 PM EST BLOOD GAS [...] 01/27/2022 8:20 AM EST Endoscopy W/Video-Asst Vein [place], Cabg ([id number]) 01/27/2022 7:22 AM EST CAD Cabg, Artery-Vein, Three ([id number]) 01/27/2022 7:22 AM EST CAD Cabg, Arterial, Single ([id number]) 01/27/2022 7:22 AM EST CAD PREPARE RBC STAT 01/27/2022 6:35 AM EST POCT GLUCOSE Routine 01/27/2022 6:29 AM EST documented in this encounter Results * ECHO COMPLETE W CONTRAST (02/11/2022 9:40 AM EDT) EF 35 HEARTLAB SYSTEM Anatomical Region Laterality Modality Other 02/11/2022 7:44 AM EDT Narrative 02/11/2022 9:48 AM EDT ?[facility] ?[address] ? [place], [place] [address] ?Voice: ?Fax: ? Echocardiogram Report Name: ADRIEN CHEUNG ? Study Date: 02/11/2022 07:44 AMBP: 139/70 mmHg ? Patient Location: 4A 0000 ? HR: 66 : 1955 ? Height: 170 cm ? Account: [id number] Age: 66 yrs ? Weight: 119 kg Gender: Male ?BSA: 2.3 m2 Ordering Physician: LEVI HINDS Referring Physician: RK CAIN Performed By: Abe Corbin RDCS Reason For Study: S/P CABG Exam Location: [facility]. Interpretation Summary 1. Left ventricle is moderately [...] from 12/20/2021, the findings are similar. Procedure Complete-42252. *. Image enhancement Optison was used for [...] Procedure Note Yoandy Wheatley MD - 02/11/2022 [facility] [address] [place] [address] Voice: Fax: Echocardiogram Report Name: ADRIEN CHEUNG Study Date: 207:44 AMBP: 139/70 mmHg Patient Location: [id number] HR: 66 : 1955 Height: 170 cm Account: [id number] Age: 66 yrs Weight: 119 kg Gender: Male BSA: 2.3 m2 Ordering Physician: LEVI HINDS Referring Physician: RK CAIN Performed By: Abe Corbin RDCS Reason For Study: S/P CABG Exam Location: [facility]. Interpretation Summary 1. Left ventricle is moderately [...] report from 12/20/2021, the findings aresimilar. Procedure Complete-27602. *. Image enhancement Optison was used for [...] (ABNORMAL) POCT Glucose (01/31/2022 11:41 AM EST) Pathologist [facility] Glucose, POC 239(H) 65 - 199 mg/dL [facility] Comment: Supplemental ranges: <140 mg/dL before meals <180 mg/dL all other times of the day Blood 01/31/2022 11:4 1 AM EST 01/31/2022 11:41 AM EST Levi Hinds MD POINT OF CARE TEST ORDERABLES Performing Organization Address City/[facility]/ZIP Co de Phone Number [facility] [place] [address] * (ABNORMAL) POCT Glucose (01/31/2022 7:29 AM EST) [facility] Glucose, POC 212(H) 65 - 199 mg/dL [facility] Comment: Supplemental ranges: <140 mg/dL before meals <180 mg/dL all other times of the day Blood 01/31/2022 7:29 AM EST 01/31/2022 7:29 AM EST Levi Hinds MD POINT OF CARE TEST ORDERABLES Performing Organization Address City/[facility]/ZIP Co de Phone Number [facility] [place] [address] * Potassium (01/31/2022 12:55 AM EST) Potassium 4.0 3.5 - 5.0 mmol/L [facility] Comment: Please note: ??Patients with WBC [...] MD CHEMISTRY ORDERABLE S Performing Organization Address City/[facility]/ZIP Co de Phone Number [facility] [place] [address] * POCT Glucose (01/30/2022 8:45 PM EST) Glucose, POC 187 65 - 199 mg/dL [facility] Comment: Supplemental ranges: <140 mg/dL before meals <180 mg/dL all other times of the day Blood 01/30/2022 8:45 PM EST 01/30/2022 8:45 PM EST Levi Hinds MD POINT OF CARE TEST ORDERABLES Performing Organization Address [facility]/ZIP Co de Phone Number [facility] [place] [address] * POCT Glucose (01/30/2022 5:08 PM EST) Glucose, POC 175 65 - 199 mg/dL [facility] Comment: Supplemental ranges: <140 mg/dL before meals <180 mg/dL all other times of the day Blood 01/30/2022 5:08 PM EST 01/30/2022 5:08 PM EST Levi Hinds MD POINT OF CARE TEST ORDERABLES Performing Organization Address City/[facility]/ZIP Co de Phone Number [facility] [place] [address] * (ABNORMAL) POCT Glucose (01/30/2022 11:16 AM EST) Glucose, POC 206(H) 65 - 199 mg/dL [facility] Comment: Supplemental ranges: <140 mg/dL before meals <180 mg/dL all other times of the day Blood 01/30/2022 11:1 6 AM EST 01/30/2022 11:16 AM EST Levi Hinds MD POINT OF CARE TEST ORDERABLES [facility] [place] [address] * XR Chest PA & Lateral (Generic) [...] who have questions please contact the health clinical care coordinator that requested your imaging first. ? Electronically signed by: Swetha Bell MD, [facility] ([phone]), at 01/30/2022 9:12 AM Narrative 01/30/2022 9:12 AM EST EXAMINATION: XR [...] patients who have questions please contactthe health clinical care coordinator that requested your imaging first. Electronically signed by: Swetha Bell MD, [facility]([phone]), at 01/30/2022 9:12 AM Levi Hinds MD IMG DX ORDERABLES * POCT Glucose (01/30/2022 7:35 AM EST) Glucose, POC 173 65 - 199 mg/dL [facility] [facility] Comment: Supplemental ranges: <140 mg/dL before meals <180 mg/dL all other times of the day Blood 01/30/2022 7:35 AM EST 01/30/2022 7:35 AM EST Levi Hinds MD POINT OF CARE TEST ORDERABLES [facility] [place] [address] * Scan, Peripheral Blood (01/30/2022 6:35 AM EST) Pathologist [facility] Plat estimate Normal [facility] RBC Morphology Abnormal [facility] Hypochromia Slight [facility] Blood 01/30/2022 6:35 AM EST 01/30/2022 6:42 AM EST Narrative Resulting Agency Comment Spec In Lab Rk BADILLO HEMATOLOGY ORDERABLE S Performing Organization Address City/[facility]/ZIP Co de Phone Number [facility] [place] [address] * (ABNORMAL) Differential, Automated (01/30/2022 6:35 AM EST) [facility] Neutrophil % 75.5 % [facility] Neutrophil Absolute 11.11(H) 1.70 - 6.10 x10(3)/mc L [facility] Lymph % 12.0 % [facility] Lymphocytes Abs 1.8 0.9 - 3.2 x10(3)/mc L [facility] Monocyte % 11.4 % [facility] Monocyte Abs 1.7(H) 0.3 - 0.9 x10(3)/mc L [facility] Eos % 0.5 % [facility] Eosinophils Abs 0.1 0.0 - 0.4 x10(3)/mc L [facility] Basophil % 0.2 % [facility] Baso Absolute 0.0 0.0 - 0.1 x10(3)/mc L [facility] Immature Gran % 0.40 % [facility] Comment: Immature granulocytes(IG's)percentage and absolute count will include metamyelocytes, myelocytes, and promyelocytes. Blood smears from CBCs yielding IG's will be scanned manually for concordance. If this scan disagrees with the automated IG or if promyelocytes are noted, a manual differential will be performed. Immature Gran Absolute 0.06(H) 0.00 - 0.04 x10(3)/mc L [facility] Blood 01/30/2022 6:35 AM EST 01/30/2022 6:42 AM EST Narrative Resulting Agency Comment Spec In Lab Rk BADILLO HEMATOLOGY ORDERABLE S [facility] [place] [address] * (ABNORMAL) Hemogram (01/30/2022 6:35 AM EST) White Blood Cell 14.7(H) 4.0 - 9.5 x10(3)/mc L [facility] Red Blood Cell 3.58(L) 4.58 - 5.54 x10(6)/mc L [facility] Hemoglobin 11.2(L) 13.7 - 16.5 g/dL [facility] Hematocrit 33.0(L) 40.5 - 48.5 % [facility] Mean Cell Volume 92.2 82.9 - 93.1 fL [facility] Mean Cell Hemoglobin 31.3 27.5 - 32.1 pg [facility] Mean Cell Hemoglobin Concentration 33.9 32.0 - 35.7 g/dL [facility] Platelet 220 145 - 357 x10(3)/mc L [facility] RDW Standard Deviation 46.6(H) 36.0 - 45.0 fL [facility] RDW coefficient of variation 13.8 11.4 - 13.8 % [facility] Mean Platelet Volume 11.3 7.6 - 12.9 fL [facility] NRBC% auto 0.0 % [facility] NRBC Absolute 0.000 0.000 - 0.000 x10(3)/mc L [facility] Blood 01/30/2022 6:35 AM EST 01/30/2022 6:42 AM EST Narrative Resulting Agency Comment Spec In Lab Rk BADILLO HEMATOLOGY ORDERABLE S Performing Organization Address [facility] Co de Phone Number [facility] [place] [address] * POCT Glucose (01/30/2022 5:30 AM EST) Glucose, POC 156 65 - 199 mg/dL [facility] Comment: Supplemental ranges: <140 mg/dL before meals <180 mg/dL all other times of the day Blood 01/30/2022 5:30 AM EST 01/30/2022 5:30 AM EST Levi Hinds MD POINT OF CARE TEST ORDERABLES Performing Organization Address [facility] Co de Phone Number [facility] [place] [address] * (ABNORMAL) Basic Metabolic Panel (non-fasting) (01/30/2022 4:10 AM EST) Glucose 151 65 - 199 mg/dL [facility] Comment:Diabetes: >=200 mg/d L plus symptoms Blood Urea Nitrogen 9(L) 10 - 20 mg/dL [facility] Creatinine 0.66(L) 0.80 - 1.50 mg/dL [facility] Sodium 139 135 - 145 mmol/L [facility] Potassium Not Perf 3.5 - 5.0 [facility] Comment: Duplicate order Please note: ??Patients with WBC >100,000 may have falsely elevated Potassium levels. ??For accurate Potassium quantification in these patients send serum separator tube (gold top) for subsequent determinations. ??Contact the Clinical Chemistry Laboratory if there are any questions. Chloride 100 98 - 107 mmol/L [facility] Carbon Dioxide Not Perf 22 - 31 [facility] Comment:Add-on request. Samp le too old to perform test. Anion Gap Not Calculated 5 - 15 mmol/L [facility] Comment:Add-on request. Samp le too old to perform test. Calcium 8.3(L) 8.5 - 10.5 mg/dL [facility] Comment:result rechecked- vh Est Glomerular Filtration Rate 101 >=60 mL/min/1 .73 m?? [facility] Comment: This patient? s estimated [...] Spec In Lab Rk BADILLO CHEMISTRY ORDERABLES [facility] [place] [address] * Potassium (01/30/2022 4:10 AM EST) Potassium 4.2 3.5 - 5.0 mmol/L [facility] Comment: Please note: ??Patients with WBC >100,000 may have falsely elevated Potassium levels. ??For accurate Potassium quantification in these patients send serum separator tube (gold top) for subsequent determinations. ??Contact the Clinical Chemistry Laboratory if there are any questions. Blood 01/30/2022 4:10 AM EST 01/30/2022 4:17 AM EST Narrative Resulting Agency Comment Spec In Lab Levi Hinds MD CHEMISTRY ORDERABLE S [facility] [place] [address] * COVID-19 PCR (01/30/2022 4:09 AM EST) SARS-CoV-2 RNA Not Detected Not Detected [facility] Comment: This result should be interpreted [...] diagnosis of COVID-19 is performed using the [employer] m SARS-CoV-2 Assay as authorized by the FDA Emergency Use Authorization (EUA). This EUA assay is intended for In-vitro Diagnostic (IVD) use with respiratory specimens such as nasopharyngeal swabs collected from individuals during the acute phase of infection. This assay is performed based on the instructions for use provided by [employer] and additional guidance provided by CDC and FDA. Testing is performed in the [facility] Laboratory within the Department of Pathology and Laboratory Medicine at [facility], certified under the Clinical Laboratory Improvement Amendments [...] fact sheets at the following FDA website: https://www.fda.gov/medical-devices/wvfcfexaqgd-fpiugsi-1130-ixhoe-06-trtusihsz- use-a upehwyfwthhdw-hviqqee-kvibgcm/nhofu-oaaicrxjned-lpfm SARS-CoV-2 RNA 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 [facility] Nasopharyngeal Swab 01/31/20 4:09 AM EST 01/30/2022 7:59 AM EST Comment:Symptoms->Surveillan ce Narrative Resulting Agency Comment Spec In Lab Levi Hinds MD MOLECULAR ORDERABLE S Performing Organization Address City/[facility]/ZIP Co de Phone Number [facility] [place] [address] * POCT Glucose (01/30/2022 4:04 AM EST) Glucose, POC 154 65 - 199 mg/dL [facility] Comment: Supplemental ranges: <140 mg/dL before meals <180 mg/dL all other times of the day Blood 01/30/2022 4:04 AM EST 01/30/2022 4:04 AM EST Levi Hinds MD POINT OF CARE TEST ORDERABLES [facility] [place] [address] * POCT Glucose (01/30/2022 2:05 AM EST) Glucose, POC 136 65 - 199 mg/dL [facility] Comment: Supplemental ranges: <140 mg/dL before meals <180 mg/dL all other times of the day Blood 01/30/2022 2:05 AM EST 01/30/2022 2:05 AM EST Levi Hinds MD POINT OF CARE TEST ORDERABLES Performing Organization Address City/[facility]/ZIP Co de Phone Number [facility] [place] [address] * POCT Glucose (01/29/2022 11:53 PM EST) Glucose, POC 170 65 - 199 mg/dL [facility] Comment: Supplemental ranges: <140 mg/dL before meals <180 mg/dL all other times of the day Blood 01/29/2022 11:5 3 PM EST 01/29/2022 11:53 PM EST Levi Hinds MD POINT OF CARE TEST ORDERABLES Performing Organization Address [facility] Co de Phone Number [facility] [place] [address] * (ABNORMAL) POCT Glucose (01/29/2022 9:29 PM EST) Glucose, POC 206(H) 65 - 199 mg/dL [facility] Comment: Supplemental ranges: <140 mg/dL before meals <180 mg/dL all other times of the day Blood 01/29/2022 9:29 PM EST 01/29/2022 9:29 PM EST Levi Hinds MD POINT OF CARE TEST ORDERABLES Performing Organization Address City/[facility] Co de Phone Number [facility] [place] [address] * (ABNORMAL) POCT Glucose (01/29/2022 8:01 PM EST) Glucose, POC 205(H) 65 - 199 mg/dL [facility] Comment: Supplemental ranges: <140 mg/dL before meals <180 mg/dL all other times of the day Blood 01/29/2022 8:01 PM EST 01/29/2022 8:01 PM EST Levi Hinds MD POINT OF CARE TEST ORDERABLES [facility] [place] [address] * POCT Glucose (01/29/2022 6:27 PM EST) Glucose, POC 160 65 - 199 mg/dL [facility] Comment: Supplemental ranges: <140 mg/dL before meals <180 mg/dL all other times of the day Blood 01/29/2022 6:27 PM EST 01/29/2022 6:27 PM EST Levi Hinds MD POINT OF CARE TEST ORDERABLES Performing Organization Address City/[facility]/ZIP Co de Phone Number [facility] [place] [address] * POCT Glucose (01/29/2022 5:01 PM EST) Glucose, POC 168 65 - 199 mg/dL [facility] Comment: Supplemental ranges: <140 mg/dL before meals <180 mg/dL all other times of the day Blood 01/29/2022 5:01 PM EST 01/29/2022 5:01 PM EST Levi Hinds MD POINT OF CARE TEST ORDERABLES [facility] [place] [address] * POCT Glucose (01/29/2022 3:18 PM EST) Glucose, POC 133 65 - 199 mg/dL [facility] Comment: Supplemental ranges: <140 mg/dL before meals <180 mg/dL all other times of the day Blood 01/29/2022 3:18 PM EST 01/29/2022 3:18 PM EST Levi Hinds MD POINT OF CARE TEST ORDERABLES Performing Organization Address [facility] Co de Phone Number [facility] [place] [address] * POCT Glucose (01/29/2022 2:08 PM EST) Glucose, POC 149 65 - 199 mg/dL [facility] Comment: Supplemental ranges: <140 mg/dL before meals <180 mg/dL all other times of the day Blood 01/29/2022 2:08 PM EST 01/29/2022 2:08 PM EST Levi Hinds MD POINT OF CARE TEST ORDERABLES Performing Organization Address [facility] Phone Number [facility] [place] [address] * POCT Glucose (01/29/2022 12:05 PM EST) Glucose, POC 168 65 - 199 mg/dL [facility] Comment: Supplemental ranges: <140 mg/dL before meals <180 mg/dL all other times of the day Blood 01/29/2022 12:0 5 PM EST 01/29/2022 12:05 PM EST Levi Hinds MD POINT OF CARE TEST ORDERABLES Performing Organization Address [facility] Co de Phone Number [facility] [place] [address] * (ABNORMAL) POCT Glucose (01/29/2022 11:08 AM EST) Glucose, POC 214(H) 65 - 199 mg/dL [facility] Comment: Supplemental ranges: <140 mg/dL before meals <180 mg/dL all other times of the day Blood 01/29/2022 11:0 8 AM EST 01/29/2022 11:08 AM EST Levi Hinds MD POINT OF CARE TEST ORDERABLES Performing Organization Address [facility] Co de Phone Number [facility] [place] [address] * (ABNORMAL) POCT Glucose (01/29/2022 10:08 AM EST) Glucose, POC 219(H) 65 - 199 mg/dL [facility] Comment: Supplemental ranges: <140 mg/dL before meals <180 mg/dL all other times of the day Blood 01/29/2022 10:0 8 AM EST 01/29/2022 10:08 AM EST Levi Hinds MD POINT OF CARE TEST ORDERABLES Performing Organization Address [facility] de Phone Number [facility] [place] [address] * (ABNORMAL) POCT Glucose (01/29/2022 7:49 AM EST) Glucose, POC 217(H) 65 - 199 mg/dL [facility] Comment: Supplemental ranges: <140 mg/dL before meals <180 mg/dL all other times of the day Blood 01/29/2022 7:49 AM EST 01/29/2022 7:49 AM EST Levi Hinds MD POINT OF CARE TEST ORDERABLES Performing Organization Address [facility] Co de Phone Number [facility] [place] [address] * POCT Glucose (01/29/2022 6:07 AM EST) Glucose, POC 189 65 - 199 mg/dL [facility] Comment: Supplemental ranges: <140 mg/dL before meals <180 mg/dL all other times of the day Blood 01/29/2022 6:07 AM EST 01/29/2022 6:07 AM EST Levi Hinds MD POINT OF CARE TEST ORDERABLES Performing Organization Address [facility] de Phone Number [facility] [place] [address] * Potassium (01/29/2022 4:10 AM EST) Potassium 4.5 3.5 - 5.0 mmol/L [facility] Comment: Please note: ??Patients with WBC >100,000 may have falsely elevated Potassium levels. ??For accurate Potassium quantification in these patients send serum separator tube (gold top) for subsequent determinations. ??Contact the Clinical Chemistry Laboratory if there are any questions. Blood 01/29/2022 4:10 AM EST 01/29/2022 4:14 AM EST Narrative Resulting Agency Comment Spec In Lab Lvei Hinds MD CHEMISTRY ORDERABLE S Performing Organization Address [facility] de Phone Number [facility] [place] [address] * POCT Glucose (01/29/2022 4:07 AM EST) Glucose, POC 161 65 - 199 mg/dL [facility] Comment: Supplemental ranges: <140 mg/dL before meals <180 mg/dL all other times of the day Blood 01/29/2022 4:07 AM EST 01/29/2022 4:07 AM EST Levi Hinds MD POINT OF CARE TEST ORDERABLES Performing Organization Address [facility] Co de Phone Number [facility] [place] [address] * POCT Glucose (01/29/2022 2:04 AM EST) Glucose, POC 180 65 - 199 mg/dL [facility] Comment: Supplemental ranges: <140 mg/dL before meals <180 mg/dL all other times of the day Blood 01/29/2022 2:04 AM EST 01/29/2022 2:04 AM EST Levi Hinds MD POINT OF CARE TEST ORDERABLES Performing Organization Address [facility] de Phone Number [facility] [place] [address] * POCT Glucose (01/29/2022 12:10 AM EST) Glucose, POC 174 65 - 199 mg/dL [facility] Comment: Supplemental ranges: <140 mg/dL before meals <180 mg/dL all other times of the day Blood 01/29/2022 12:1 0 AM EST 01/29/2022 12:10 AM EST Levi Hinds MD POINT OF CARE TEST ORDERABLES Performing Organization Address [facility] Phone Number [facility] [place] [address] * POCT Glucose (01/28/2022 10:09 PM EST) Glucose, POC 182 65 - 199 mg/dL [facility] Comment: Supplemental ranges: <140 mg/dL before meals <180 mg/dL all other times of the day Blood 01/28/2022 10:0 9 PM EST 01/28/2022 10:09 PM EST Levi Hinds MD POINT OF CARE TEST ORDERABLES Performing Organization Address [facility] de Phone Number [facility] [place] [address] * POCT Glucose (01/28/2022 9:14 PM EST) Glucose, POC 177 65 - 199 mg/dL [facility] Comment: Supplemental ranges: <140 mg/dL before meals <180 mg/dL all other times of the day Blood 01/28/2022 9:14 PM EST 01/28/2022 9:14 PM EST Levi Hinds MD POINT OF CARE TEST ORDERABLES Performing Organization Address City/[facility] Co de Phone Number [facility] [place] [address] * POCT Glucose (01/28/2022 7:54 PM EST) Glucose, POC 158 65 - 199 mg/dL [facility] Comment: Supplemental ranges: <140 mg/dL before meals <180 mg/dL all other times of the day Blood 01/28/2022 7:54 PM EST 01/28/2022 7:54 PM EST Levi Hinds MD POINT OF CARE TEST ORDERABLES Performing Organization Address [facility] Co de Phone Number [facility] [place] [address] * POCT Glucose (01/28/2022 6:08 PM EST) Glucose, POC 134 65 - 199 mg/dL [facility] Comment: Supplemental ranges: <140 mg/dL before meals <180 mg/dL all other times of the day Blood 01/28/2022 6:08 PM EST 01/28/2022 6:08 PM EST Levi Hinds MD POINT OF CARE TEST ORDERABLES Performing Organization Address [facility] Co de Phone Number [facility] [place] [address] * POCT Glucose (01/28/2022 4:04 PM EST) Glucose, POC 153 65 - 199 mg/dL [facility] Comment: Supplemental ranges: <140 mg/dL before meals <180 mg/dL all other times of the day Blood 01/28/2022 4:04 PM EST 01/28/2022 4:04 PM EST Levi Hinds MD POINT OF CARE TEST ORDERABLES [facility] [place] [address] * POCT Glucose (01/28/2022 1:44 PM EST) Glucose, POC 152 65 - 199 mg/dL [facility] Comment: Supplemental ranges: <140 mg/dL before meals <180 mg/dL all other times of the day Blood 01/28/2022 1:44 PM EST 01/28/2022 1:44 PM EST Levi Hinds MD POINT OF CARE TEST ORDERABLES [facility] [place] [address] * POCT Glucose (01/28/2022 12:12 PM EST) Glucose, POC 148 65 - 199 mg/dL [facility] Comment: Supplemental ranges: <140 mg/dL before meals <180 mg/dL all other times of the day Blood 01/28/2022 12:1 2 PM EST 01/28/2022 12:12 PM EST Levi Hinds MD POINT OF CARE TEST ORDERABLES [facility] [place] [address] * POCT Glucose (01/28/2022 10:40 AM EST) Glucose, POC 150 65 - 199 mg/dL [facility] Comment: Supplemental ranges: <140 mg/dL before meals <180 mg/dL all other times of the day Blood 01/28/2022 10:4 0 AM EST 01/28/2022 10:40 AM EST Levi Hinds MD POINT OF CARE TEST ORDERABLES [facility] [place] [address] * POCT Glucose (01/28/2022 10:11 AM EST) Glucose, POC 136 65 - 199 mg/dL [facility] Comment: Supplemental ranges: <140 mg/dL before meals <180 mg/dL all other times of the day Blood 01/28/2022 10:1 1 AM EST 01/28/2022 10:11 AM EST Levi Hinds MD POINT OF CARE TEST ORDERABLES [facility] [place] [address] * POCT Glucose (01/28/2022 9:05 AM EST) Glucose, POC 164 65 - 199 mg/dL [facility] Comment: Supplemental ranges: <140 mg/dL before meals <180 mg/dL all other times of the day Blood 01/28/2022 9:05 AM EST 01/28/2022 9:05 AM EST Levi Hinds MD POINT OF CARE TEST ORDERABLES Performing Organization Address City/[facility]/ZIP Co de Phone Number [facility] [place] [address] * POCT Glucose (01/28/2022 7:40 AM EST) Glucose, POC 144 65 - 199 mg/dL [facility] Comment: Supplemental ranges: <140 mg/dL before meals <180 mg/dL all other times of the day Blood 01/28/2022 7:40 AM EST 01/28/2022 7:40 AM EST Levi Hinds MD POINT OF CARE TEST ORDERABLES [facility] [place] [address] * POCT Glucose (01/28/2022 6:58 AM EST) Glucose, POC 120 65 - 199 mg/dL [facility] Comment: Supplemental ranges: <140 mg/dL before meals <180 mg/dL all other times of the day Blood 01/28/2022 6:58 AM EST 01/28/2022 6:58 AM EST Levi Hinds MD POINT OF CARE TEST ORDERABLES [facility] [place] [address] * (ABNORMAL) BLOOD GAS 2 ARTERIAL (01/28/2022 6:27 AM EST) pH, Arterial 7.38 7.35 - 7.45 [facility] PCO2, Arterial 40 35 - 45 mmHg [facility] PO2, Arterial 71(L) 85 - 104 mmHg [facility] Bicarbonate, Arterial 23.1 20.0 - 26.0 mmol/L [facility] Base Excess, Arterial -2.0 -3.0 - 3.0 mmol/L [facility] Hgb Blood Gas 12.3(L) 13.7 - 16.5 g/dL [facility] Oxyhemoglobin, Arterial 92.9(L) 94.0 - 97.0 % [facility] Carboxyhemoglob in, Arterial 0.0 % [facility] Comment: Nonsmokers: 0.5-1.5% COHB Smokers: Variable, but usually less than 10% Toxic: 20-30% COHB Lethal: Greater than 60% COHB Methemoglobin, Arterial 0.5 <=1.5 % [facility] Na Whole Blood 135 135 - 145 mmol/L [facility] K Whole Blood 4.2 3.5 - 5.0 mmol/L [facility] Comment: Please note: Patients with WBC >100,000 may have falsely elevated Potassium levels. Contact the Clinical Chemistry Laboratory if there are any questions. ICa Whole Blood 1.07(L) 1.15 - 1.33 mmol/L [facility] Comment: Note: ??Total bilirubin higher than 20 mg/dL may lead to falsely low ionized calcium. CL Whole Blood 104 98 - 107 mmol/L [facility] Gluc Whole Bld 122 65 - 199 mg/dL [facility] Comment:Diabetes: >=200 mg/d L plus symptoms. Lactate WB 1.5 0.5 - 2.2 mmol/L [facility] FIO2 Art 40 % [facility] PF Ratio Art 178 [facility] [facility] Blood 01/28/2022 6:27 AM EST 01/28/2022 6:27 AM EST Levi Hinds MD POINT OF CARE TEST ORDERABLES Performing Organization Address [facility] Co de Phone Number [facility] [place] [address] * POCT Glucose (01/28/2022 5:56 AM EST) Glucose, POC 118 65 - 199 mg/dL [facility] Comment: Supplemental ranges: <140 mg/dL before meals <180 mg/dL all other times of the day Blood 01/28/2022 5:56 AM EST 01/28/2022 5:56 AM EST Levi Hinds MD POINT OF CARE TEST ORDERABLES Performing Organization Address City/[facility]/ZIP Co de Phone Number [facility] [place] [address] * (ABNORMAL) Hemogram (01/28/2022 5:20 AM EST) White Blood Cell 19.9(H) 4.0 - 9.5 x10(3)/mc L [facility] Red Blood Cell 3.69(L) 4.58 - 5.54 x10(6)/mc L [facility] Hemoglobin 11.6(L) 13.7 - 16.5 g/dL [facility] Hematocrit 33.4(L) 40.5 - 48.5 % [facility] Mean Cell Volume 90.5 82.9 - 93.1 fL [facility] Mean Cell Hemoglobin 31.4 27.5 - 32.1 pg [facility] Mean Cell Hemoglobin Concentration 34.7 32.0 - 35.7 g/dL [facility] Platelet 192 145 - 357 x10(3)/mc L [facility] RDW Standard Deviation 44.4 36.0 - 45.0 fL [facility] RDW coefficient of variation 13.5 11.4 - 13.8 % [facility] Mean Platelet Volume 10.8 7.6 - 12.9 fL [facility] NRBC% auto 0.0 % [facility] NRBC Absolute 0.000 0.000 - 0.000 x10(3)/mc L [facility] Blood 01/28/2022 5:20 AM EST 01/28/2022 5:33 AM EST Narrative Resulting Agency Comment Spec In Lab Levi Hinds MD HEMATOLOGY ORDERABL ES [facility] [place] [address] * XR Chest One View (01/28/2022 5:19 [...] who have questions please contact the health clinical care coordinator that requested your imaging first. ? Electronically signed by: Flaco Eddy MD, [facility] ([phone]), at 01/28/2022 5:23 AM Narrative 01/28/2022 5:23 AM EST EXAMINATION: XR [...] patients who have questions please contactthe health clinical care coordinator that requested your imaging first. Electronically signed by: Flaco Eddy MD, [facility]([phone]), at 01/28/2022 5:23 AM Levi Hinds MD IMG DX ORDERABLES * POCT Glucose (01/28/2022 5:18 AM EST) Glucose, POC 126 65 - 199 mg/dL [facility] Comment: Supplemental ranges: <140 mg/dL before meals <180 mg/dL all other times of the day Blood 01/28/2022 5:18 AM EST 01/28/2022 5:18 AM EST Levi Hinds MD POINT OF CARE TEST ORDERABLES Performing Organization Address City/[facility] Co de Phone Number [facility] [place] [address] * POCT Glucose (01/28/2022 4:03 AM EST) Glucose, POC 151 65 - 199 mg/dL [facility] Comment: Supplemental ranges: <140 mg/dL before meals <180 mg/dL all other times of the day Blood 01/28/2022 4:03 AM EST 01/28/2022 4:03 AM EST Levi Hinds MD POINT OF CARE TEST ORDERABLES Performing Organization Address City/[facility] Co de Phone Number [facility] [place] [address] * (ABNORMAL) BLOOD GAS 2 ARTERIAL (01/28/2022 3:07 AM EST) pH, Arterial 7.37 7.35 - 7.45 [facility] PCO2, Arterial 41 35 - 45 mmHg [facility] PO2, Arterial 68(L) 85 - 104 mmHg [facility] Bicarbonate, Arterial 23.1 20.0 - 26.0 mmol/L [facility] Base Excess, Arterial -2.2 -3.0 - 3.0 mmol/L [facility] Hgb Blood Gas 12.9(L) 13.7 - 16.5 g/dL [facility] Oxyhemoglobin, Arterial 92.7(L) 94.0 - 97.0 % [facility] Carboxyhemoglob in, Arterial 0.2 % [facility] Comment: Nonsmokers: 0.5-1.5% COHB Smokers: Variable, but usually less than 10% Toxic: 20-30% COHB Lethal: Greater than 60% COHB Methemoglobin, Arterial 0.6 <=1.5 % [facility] Na Whole Blood 135 135 - 145 mmol/L [facility] K Whole Blood 4.4 3.5 - 5.0 mmol/L [facility] Comment: Please note: Patients with WBC >100,000 may have falsely elevated Potassium levels. Contact the Clinical Chemistry Laboratory if there are any questions. ICa Whole Blood 1.07(L) 1.15 - 1.33 mmol/L [facility] Comment: Note: ??Total bilirubin higher than 20 mg/dL may lead to falsely low ionized calcium. CL Whole Blood 105 98 - 107 mmol/L [facility] Gluc Whole Bld 152 65 - 199 mg/dL [facility] Comment:Diabetes: >=200 mg/d L plus symptoms. Lactate WB 1.8 0.5 - 2.2 mmol/L [facility] FIO2 Art 40 % [facility] PF Ratio Art 170 [facility] Blood 01/28/2022 3:07 AM EST 01/28/2022 3:07 AM EST Levi Hinds MD POINT OF CARE TEST ORDERABLES Performing Organization Address City/State/[facility] Co de Phone Number [facility] [place] [address] * POCT Glucose (01/28/2022 3:07 AM EST) Glucose, POC 162 65 - 199 mg/dL [facility] Comment: Supplemental ranges: <140 mg/dL before meals <180 mg/dL all other times of the day Blood 01/28/2022 3:07 AM EST 01/28/2022 3:07 AM EST Levi Hinds MD POINT OF CARE TEST ORDERABLES [facility] [place] [address] * (ABNORMAL) Basic Metabolic Panel (non-fasting) (01/28/2022 3:05 AM EST) Glucose 161 65 - 199 mg/dL [facility] Comment:Diabetes: >=200 mg/d L plus symptoms Blood Urea Nitrogen 7(L) 10 - 20 mg/dL [facility] Creatinine 0.59(L) 0.80 - 1.50 mg/dL [facility] Sodium 140 135 - 145 mmol/L [facility] Potassium 4.3 3.5 - 5.0 mmol/L [facility] Comment: Please note: ??Patients with WBC >100,000 may have falsely elevated Potassium levels. ??For accurate Potassium quantification in these patients send serum separator tube (gold top) for subsequent determinations. ??Contact the Clinical Chemistry Laboratory if there are any questions. Chloride 107 98 - 107 mmol/L [facility] Carbon Dioxide 22 22 - 31 mmol/L [facility] Anion Gap 11 5 - 15 mmol/L [facility] Calcium 7.5(L) 8.5 - 10.5 mg/dL [facility] Est Glomerular Filtration Rate 106 >=60 mL/min/1. 73 m?? [facility] Comment: This patient? s estimated [...] MD CHEMISTRY ORDERABLE S Performing Organization Address [facility] Co de Phone Number [facility] [place] [address] * (ABNORMAL) Troponin (01/28/2022 3:05 AM EST) [facility] Troponin-T 0.20(H) 0.00 - 0.00 ng/mL [facility] Comment: The 99th percentile for Troponin T is less than 0.01 ng/mL, any detectable cTnT concentration using this assay should be considered elevated. According to the third universal definition of myocardial infarction the following criteria with a clinical presentation consistent with acute myocardial ischemia meets the diagnosis for a myocardial infarction (ND). Detection of a rise and/or fall of cTnT, with at least one value greater than the 99th percentile (> or = 0.01) and with at least one of the following ?? Symptoms of ischemia ?? New or presumed new significant [id number] wave (ST-T) changes or new left bundle [...] additional sample may be indicated. Reference: Third [place] Definition of Myocardial Infarction. Journal of the [place] [employer] 2012;60:1581-98 Blood 01/28/2022 3:05 AM EST 01/28/2022 3:30 AM EST Narrative Resulting Agency Comment Spec In Lab Levi Hinds MD CHEMISTRY ORDERABLE S Performing Organization Address [facility] Co de Phone Number [facility] [place] [address] * POCT Glucose (01/28/2022 2:05 AM EST) Glucose, POC 170 65 - 199 mg/dL [facility] Comment: Supplemental ranges: <140 mg/dL before meals <180 mg/dL all other times of the day Blood 01/28/2022 2:05 AM EST 01/28/2022 2:05 AM EST Levi Hinds MD POINT OF CARE TEST ORDERABLES Performing Organization Address City/[facility]/ZIP Co de Phone Number [facility] [place] [address] * POCT Glucose (01/28/2022 12:57 AM EST) Glucose, POC 194 65 - 199 mg/dL [facility] Comment: Supplemental ranges: <140 mg/dL before meals <180 mg/dL all other times of the day Blood 01/28/2022 12:5 7 AM EST 01/28/2022 12:57 AM EST Levi Hinds MD POINT OF CARE TEST ORDERABLES Performing Organization Address [facility]/ZIP Co de Phone Number [facility] [place] [address] * (ABNORMAL) POCT Glucose (01/27/2022 11:58 PM EST) Glucose, POC 224(H) 65 - 199 mg/dL [facility] Comment: Supplemental ranges: <140 mg/dL before meals <180 mg/dL all other times of the day Blood 01/27/2022 11:5 8 PM EST 01/27/2022 11:58 PM EST Levi Hinds MD POINT OF CARE TEST ORDERABLES Performing Organization Address City/[facility] Co de Phone Number [facility] [place] [address] * (ABNORMAL) POCT Glucose (01/27/2022 11:10 PM EST) Glucose, POC 247(H) 65 - 199 mg/dL [facility] Comment: Supplemental ranges: <140 mg/dL before meals <180 mg/dL all other times of the day Blood 01/27/2022 11:1 0 PM EST 01/27/2022 11:10 PM EST Levi Hinds MD POINT OF CARE TEST ORDERABLES Performing Organization Address [facility] Co de Phone Number [facility] [place] [address] * Potassium (01/27/2022 11:10 PM EST) Potassium 4.1 3.5 - 5.0 mmol/L [facility] Comment: Please note: ??Patients with WBC [...] MD CHEMISTRY ORDERABLE S Performing Organization Address [facility] Co de Phone Number [facility] [place] [address] * (ABNORMAL) BLOOD GAS 2 ARTERIAL (01/27/2022 10:30 PM EST) pH, Arterial 7.34(L) 7.35 - 7.45 [facility] PCO2, Arterial 41 35 - 45 mmHg [facility] PO2, Arterial 71(L) 85 - 104 mmHg [facility] Bicarbonate, Arterial 21.7 20.0 - 26.0 mmol/L [facility] Base Excess, Arterial -4.1(L) -3.0 - 3.0 mmol/L [facility] Hgb Blood Gas 12.8(L) 13.7 - 16.5 g/dL [facility] Oxyhemoglobin, Arterial 92.9(L) 94.0 - 97.0 % [facility] Carboxyhemoglob in, Arterial 0.0 % [facility] Comment: Nonsmokers: 0.5-1.5% COHB Smokers: Variable, but usually less than 10% Toxic: 20-30% COHB Lethal: Greater than 60% COHB Methemoglobin, Arterial 0.8 <=1.5 % [facility] Na Whole Blood 137 135 - 145 mmol/L [facility] K Whole Blood 3.7 3.5 - 5.0 mmol/L [facility] Comment: Please note: Patients with WBC >100,000 may have falsely elevated Potassium levels. Contact the Clinical Chemistry Laboratory if there are any questions. ICa Whole Blood 1.07(L) 1.15 - 1.33 mmol/L [facility] Comment: Note: ??Total bilirubin higher than 20 mg/dL may lead to falsely low ionized calcium. CL Whole Blood 105 98 - 107 mmol/L [facility] Gluc Whole Bld 232(H) 65 - 199 mg/dL [facility] Comment:Diabetes: >=200 mg/d L plus symptoms. Lactate WB 4.6(Critic al) 0.5 - 2.2 mmol/L [facility] Comment:Noted by instrument and control technician. FIO2 Art 40 % [facility] PF Ratio Art 178 [facility] Blood 01/27/2022 10:3 0 PM EST 01/27/2022 10:30 PM EST Levi Hinds MD POINT OF CARE TEST ORDERABLES [facility] [place] [address] * COVID-19 PCR (01/27/2022 9:01 PM EST) SARS-CoV-2 RNA (Rapid) Not Detected Not Detected [facility] Comment: This result should be interpreted [...] using the Simplexa COVID-19 Direct Assay by [employer] as authorized by the FDA issued Emergency [...] Department of Pathology and Laboratory Medicine at [facility], certified under the Clinical Laboratory Improvement Amendments [...] fact sheets at the following FDA website: https://www.fda.gov/medical-devices/feyikkmwfgp-xmnanzw-8857-nabyo-89-wlmqlfhiu- use-a qcnvcmshjeuei-rjfdvoi-ayfwyin/pawnx-kytxzhcqpyo-qvnb SARS-CoV-2 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 Swab [facility] Nasopharyngeal Swab 01/27/20 9:01 PM EST 01/27/2022 9:24 PM EST Comment:Symptoms->Surveillan ce Narrative Resulting Agency Comment Spec In Lab Levi Hinds MD MICROBIOLOGY - GENE RAL ORDERABLES [facility] [place] [address] * (ABNORMAL) BLOOD GAS 2 ARTERIAL (01/27/2022 7:45 PM EST) pH, Arterial 7.33(L) 7.35 - 7.45 [facility] PCO2, Arterial 39 35 - 45 mmHg [facility] PO2, Arterial 73(L) 85 - 104 mmHg [facility] Bicarbonate, Arterial 19.9(L) 20.0 - 26.0 mmol/L [facility] Base Excess, Arterial -6.1(L) -3.0 - 3.0 mmol/L [facility] Hgb Blood Gas 12.6(L) 13.7 - 16.5 g/dL [facility] Oxyhemoglobin, Arterial 93.1(L) 94.0 - 97.0 % [facility] Carboxyhemoglob in, Arterial 0.1 % [facility] Comment: Nonsmokers: 0.5-1.5% COHB Smokers: Variable, but usually less than 10% Toxic: 20-30% COHB Lethal: Greater than 60% COHB Methemoglobin, Arterial 0.8 <=1.5 % [facility] Na Whole Blood 137 135 - 145 mmol/L [facility] K Whole Blood 4.1 3.5 - 5.0 mmol/L [facility] Comment: Please note: Patients with WBC >100,000 may have falsely elevated Potassium levels. Contact the Clinical Chemistry Laboratory if there are any questions. ICa Whole Blood 1.06(L) 1.15 - 1.33 mmol/L [facility] Comment: Note: ??Total bilirubin higher than 20 mg/dL may lead to falsely low ionized calcium. CL Whole Blood 105 98 - 107 mmol/L [facility] Gluc Whole Bld 254(H) 65 - 199 mg/dL [facility] Comment:Diabetes: >=200 mg/d L plus symptoms. Lactate WB 4.7(Critic al) 0.5 - 2.2 mmol/L [facility] Comment:Noted by instrument and control technician. FIO2 Art 40 % [facility] PF Ratio Art 182 [facility] Blood 01/27/2022 7:45 PM EST 01/27/2022 7:45 PM EST Levi Hinds MD POINT OF CARE TEST ORDERABLES [facility] [place] [address] * (ABNORMAL) BLOOD GAS 2 ARTERIAL (01/27/2022 6:12 PM EST) pH, Arterial 7.28(Criti sharon) 7.35 - 7.45 [facility] PCO2, Arterial 43 35 - 45 mmHg [facility] PO2, Arterial 104 85 - 104 mmHg [facility] Bicarbonate, Arterial 19.6(L) 20.0 - 26.0 mmol/L [facility] Base Excess, Arterial -7.2(L) -3.0 - 3.0 mmol/L [facility] Hgb Blood Gas 13.9 13.7 - 16.5 g/dL [facility] Oxyhemoglobin, Arterial 95.7 94.0 - 97.0 % [facility] Carboxyhemoglob in, Arterial 0.2 % [facility] Comment: Nonsmokers: 0.5-1.5% COHB Smokers: Variable, but usually less than 10% Toxic: 20-30% COHB Lethal: Greater than 60% COHB Methemoglobin, Arterial 0.7 <=1.5 % [facility] Na Whole Blood 136 135 - 145 mmol/L [facility] K Whole Blood 4.4 3.5 - 5.0 mmol/L [facility] Comment: Please note: Patients with WBC >100,000 may have falsely elevated Potassium levels. Contact the Clinical Chemistry Laboratory if there are any questions. ICa Whole Blood 1.07(L) 1.15 - 1.33 mmol/L [facility] Comment: Note: ??Total bilirubin higher than 20 mg/dL may lead to falsely low ionized calcium. CL Whole Blood 104 98 - 107 mmol/L [facility] Gluc Whole Bld 263(H) 65 - 199 mg/dL [facility] Comment:Diabetes: >=200 mg/d L plus symptoms. Lactate WB 4.3(Critic al) 0.5 - 2.2 mmol/L [facility] FIO2 Art 60 % [facility] PF Ratio Art 173 [facility] Blood 01/27/2022 6:12 PM EST 01/27/2022 6:12 PM EST Levi Hinds MD POINT OF CARE TEST ORDERABLES Performing Organization Address City/[facility] Co de Phone Number [facility] [place] [address] * (ABNORMAL) Hemoglobin (01/27/2022 6:10 PM EST) Hemoglobin 13.2(L) 13.7 - 16.5 g/dL [facility] Blood 01/27/2022 6:10 PM EST 01/27/2022 6:22 PM EST Narrative Resulting Agency Comment Spec In Lab Levi Hinds MD HEMATOLOGY ORDERABL ES Performing Organization Address City/[facility] Co de Phone Number [facility] [place] [address] * Potassium (01/27/2022 6:10 PM EST) Potassium 4.8 3.5 - 5.0 mmol/L [facility] Comment: Please note: ??Patients with WBC >100,000 may have falsely elevated Potassium levels. ??For accurate Potassium quantification in these patients send serum separator tube (gold top) for subsequent determinations. ??Contact the Clinical Chemistry Laboratory if there are any questions. Blood 01/27/2022 6:10 PM EST 01/27/2022 6:22 PM EST Narrative Resulting Agency Comment Spec In Lab Levi Hinds MD CHEMISTRY ORDERABLE S [facility] [place] [address] * (ABNORMAL) BLOOD GAS 2 ARTERIAL (01/27/2022 4:53 PM EST) pH, Arterial 7.27(Criti sharon) 7.35 - 7.45 [facility] Comment:Noted by instrument and control technician. PCO2, Arterial 42 35 - 45 mmHg [facility] PO2, Arterial 135(H) 85 - 104 mmHg [facility] Bicarbonate, Arterial 18.6(L) 20.0 - 26.0 mmol/L [facility] Base Excess, Arterial -8.4(L) -3.0 - 3.0 mmol/L [facility] Hgb Blood Gas 13.8 13.7 - 16.5 g/dL [facility] Oxyhemoglobin, Arterial 96.9 94.0 - 97.0 % [facility] Carboxyhemoglob in, Arterial 0.4 % [facility] Comment: Nonsmokers: 0.5-1.5% COHB Smokers: Variable, but usually less than 10% Toxic: 20-30% COHB Lethal: Greater than 60% COHB Methemoglobin, Arterial 0.8 <=1.5 % [facility] Na Whole Blood 135 135 - 145 mmol/L [facility] K Whole Blood 4.4 3.5 - 5.0 mmol/L [facility] Comment: Please note: Patients with WBC >100,000 may have falsely elevated Potassium levels. Contact the Clinical Chemistry Laboratory if there are any questions. ICa Whole Blood 1.06(L) 1.15 - 1.33 mmol/L [facility] Comment: Note: ??Total bilirubin higher than 20 mg/dL may lead to falsely low ionized calcium. CL Whole Blood 105 98 - 107 mmol/L [facility] Gluc Whole Bld 273(H) 65 - 199 mg/dL [facility] Comment:Diabetes: >=200 mg/d L plus symptoms. Lactate WB 3.3(H) 0.5 - 2.2 mmol/L [facility] FIO2 Art 80 % [facility] PF Ratio Art 169 [facility] Blood 01/27/2022 4:53 PM EST 01/27/2022 4:53 PM EST Levi Hinds MD POINT OF CARE TEST ORDERABLES [facility] [place] [address] * XR Chest One View (01/27/2022 4:09 [...] who have questions please contact the health clinical care coordinator that requested your imaging first. ? Electronically signed by: Jj Kenney MD, [facility] ([phone]), at 01/27/2022 4:39 PM Narrative 01/27/2022 4:39 PM EST EXAMINATION: XR [...] patients who have questions please contactthe health clinical care coordinator that requested your imaging first. Electronically signed by: Jj Kenney MD, [facility]([phone]), at 01/27/2022 4:39 PM Levi Hinds MD IMG DX ORDERABLES * (ABNORMAL) BLOOD GAS 2 ARTERIAL (01/27/2022 3:01 PM EST) pH, Arterial 7.27(Criti sharon) 7.35 - 7.45 [facility] Comment:Noted by instrument and control technician. PCO2, Arterial 46(H) 35 - 45 mmHg [facility] PO2, Arterial 108(H) 85 - 104 mmHg [facility] Bicarbonate, Arterial 20.5 20.0 - 26.0 mmol/L [facility] [place] Base Excess, Arterial -6.5(L) -3.0 - 3.0 mmol/L [facility] Hgb Blood Gas 14.0 13.7 - 16.5 g/dL [facility] Oxyhemoglobin, Arterial 95.8 94.0 - 97.0 % [facility] [place] Carboxyhemoglob in, Arterial 0.3 % [facility] Comment: Nonsmokers: 0.5-1.5% COHB Smokers: Variable, but usually less than 10% Toxic: 20-30% COHB Lethal: Greater than 60% COHB Methemoglobin, Arterial 0.8 <=1.5 % [facility] Na Whole Blood 136 135 - 145 mmol/L [facility] K Whole Blood 4.0 3.5 - 5.0 mmol/L [facility] Comment: Please note: Patients with WBC >100,000 may have falsely elevated Potassium levels. Contact the Clinical Chemistry Laboratory if there are any questions. ICa Whole Blood 1.08(L) 1.15 - 1.33 mmol/L [facility] Comment: Note: ??Total bilirubin higher than 20 mg/dL may lead to falsely low ionized calcium. CL Whole Blood 106 98 - 107 mmol/L [facility] Gluc Whole Bld 240(H) 65 - 199 mg/dL [facility] Comment:Diabetes: >=200 mg/d L plus symptoms. Lactate WB 2.7(H) 0.5 - 2.2 mmol/L [facility] FIO2 Art 100 % [facility] PF Ratio Art 108 [facility] Blood 01/27/2022 3:01 PM EST 01/27/2022 3:01 PM EST Levi Hinds MD POINT OF CARE TEST ORDERABLES LUIS ENRIQUE [facility] [place] [address] * XR Chest One View (01/27/2022 1:45 [...] who have questions please contact the health clinical care coordinator that requested your imaging first. ? Narrative 01/27/2022 2:02 PM EST EXAMINATION: XR [...] patients who have questions please contactthe health clinical care coordinator that requested your imaging first. Electronically signed by: Jahaira Christopher MD, [facility]([phone]), at 01/27/2022 2:02 PM Levi Hinds MD IMG DX ORDERABLES * (ABNORMAL) BLOOD GAS 2 ARTERIAL (01/27/2022 1:44 PM EST) pH, Arterial 7.26(Criti sharon) 7.35 - 7.45 [facility] Comment:Noted by instrument and control technician. PCO2, Arterial 50(H) 35 - 45 mmHg [facility] PO2, Arterial 88 85 - 104 mmHg [facility] Bicarbonate, Arterial 21.7 20.0 - 26.0 mmol/L [facility] Base Excess, Arterial -5.4(L) -3.0 - 3.0 mmol/L [facility] Hgb Blood Gas 14.1 13.7 - 16.5 g/dL [facility] Oxyhemoglobin, Arterial 93.5(L) 94.0 - 97.0 % [facility] Carboxyhemoglob in, Arterial 0.6 % [facility] Comment: Nonsmokers: 0.5-1.5% COHB Smokers: Variable, but usually less than 10% Toxic: 20-30% COHB Lethal: Greater than 60% COHB Methemoglobin, Arterial 0.9 <=1.5 % [facility] Na Whole Blood 138 135 - 145 mmol/L [facility] K Whole Blood 3.8 3.5 - 5.0 mmol/L [facility] Comment: Please note: Patients with WBC >100,000 may have falsely elevated Potassium levels. Contact the Clinical Chemistry Laboratory if there are any questions. ICa Whole Blood 1.09(L) 1.15 - 1.33 mmol/L [facility] Comment: Note: ??Total bilirubin higher than 20 mg/dL may lead to falsely low ionized calcium. CL Whole Blood 106 98 - 107 mmol/L [facility] Gluc Whole Bld 207(H) 65 - 199 mg/dL [facility] Comment:Diabetes: >=200 mg/d L plus symptoms. Lactate WB 2.6(H) 0.5 - 2.2 mmol/L [facility] FIO2 Art 100 % [facility] PF Ratio Art 88 [facility] Blood 01/27/2022 1:44 PM EST 01/27/2022 1:44 PM EST Levi Hinds MD POINT OF CARE TEST ORDERABLES [facility] [place] [address] * ALEXA PRE AND POST OP (01/27/2022 1:42 PM EST) Anatomical Region Laterality Modality Other 01/27/2022 6:36 AM EST Narrative 01/27/2022 3:01 PM EST ? Version: 1 + + ? + + : ?: ? : ? : + + ? [facility] ?: ? : ? : ? : ? : ? : ? [address] ? : ? : ? + + ?[place] [address] ?Voice: ?Fax: Name: ADRIEN CHEUNG ?Study Date: 01/27/2022, 6: 36 AM ?Patient Location: CVCC^CV21^A^N [facility] : 1955 (MM/DD/YYYY) ? Height: 170 cm ? Age: 66 Years ? Weight: 122 kg Gender: Male Ordering Physician: [id number]^WALTER^LEVI^P^^^^^EPIC^^^^PROVID Referring Physician: [id number]^JAIME^RANDA^^^^^^EPIC^^^^PROVID Reason For Study: Cardiac disease ? Conclusions [...] + + : : : : + +[facility] : : : : : : [address] : : + + [place] [phone] Voice: Fax: Name: ADRIEN CHEUNG Study Date: 01/27/2022,6: 36 AM Patient Location: [facility]^CV21^A^N [facility] : 1955 (MM/DD/YYYY) Height: 170 cm Age: 66 Years Weight: 122 kg Gender: Male Ordering Physician: [id number]^WALTER^LEVI^Owen^^^^^EPIC^^^^PROVID Referring Physician: [id number]^JAIME^RANDA^^^^^^EPIC^^^^PROVID Reason For Study: Cardiac disease Conclusions Left [...] transesophageal echocardiogram was performed in the [facility] pre-operative and post-operative evaluation of cardiac function [...] (Bezet) 543 ms MUSE SYSTEM Calculated P [place] 57 degrees MUSE SYSTEM Calculated R [place] -45 degrees MUSE SYSTEM Calculated T [place] 99 degrees MUSE SYSTEM INTERPRETATION Normal sinus [...] pH, Arterial 7.28(Crit ical) 7.35 - 7.45 [facility] Comment: Critical notified to Lorie Houser MD by instrument and control technician immediately following run time. PCO2, Arterial 49(H) 35 - 45 mmHg [facility] PO2, Arterial 153(H) 85 - 104 mmHg [facility] Bicarbonate, Arterial 22.6 20.0 - 26.0 mmol/L [facility] Base Excess, Arterial -4.1(L) -3.0 - 3.0 mmol/L [facility] Hgb Blood Gas 10.9(L) 13.7 - 16.5 g/dL [facility] Oxyhemoglobin, Arterial 97.6(H) 94.0 - 97.0 % [facility] Carboxyhemoglobi n, Arterial 0.6 % [facility] Comment: Nonsmokers: 0.5-1.5% COHB Smokers: Variable, but usually less than 10% Toxic: 20-30% COHB Lethal: Greater than 60% COHB Methemoglobin, Arterial 0.3 <=1.5 % [facility] Na Whole Blood 138 135 - 145 mmol/L [facility] K Whole Blood 3.7 3.5 - 5.0 mmol/L [facility] Comment: Please note: Patients with WBC >100,000 may have falsely elevated Potassium levels. Contact the Clinical Chemistry Laboratory if there are any questions. ICa Whole Blood 1.19 1.15 - 1.33 mmol/L [facility] Comment: Note: ??Total bilirubin higher than 20 mg/dL may lead to falsely low ionized calcium. CL Whole Blood 104 98 - 107 mmol/L [facility] Gluc Whole Bld 192 65 - 199 mg/dL [facility] Comment:Diabetes: >=200 mg/d L plus symptoms. Lactate WB 2.8(H) 0.5 - 2.2 mmol/L [facility] FIO2 Art 80 % [facility] PF Ratio Art 191 LUIS ENRIQUE [facility] Blood 01/27/2022 12:0 3 PM EST 01/27/2022 12:03 PM EST Levi Hinds MD POINT OF CARE TEST ORDERABLES Performing Organization Address [facility] Co de Phone Number [facility] [place] [address] * Fibrinogen (01/27/2022 11:57 AM EST) Fibrinogen 226 200 - 393 mg/dL [facility] Comment: OR Result called by ?? DEWEKE OR Results read back by: ? RANDY SINGH at 2022-01-27 12:16:49 A fibrinogen level >100 mg/dL is adequate for hemostasis in most patients without underlying bleeding disorders. Blood 01/27/2022 11:5 7 AM EST 01/27/2022 12:04 PM EST Narrative Resulting Agency Comment Spec In Lab Alicia Gtz MD HEMATOLOGY ORDERABLE S Performing Organization Address [facility] Co de Phone Number [facility] [place] [address] * (ABNORMAL) Prothrombin Time (01/27/2022 11:57 AM EST) Prothrombin Time 14.8(H) 9.4 - 12.5 sec [facility] Comment: OR Result called by ?? DEWEKE OR Results read back by: ? RANDY SINGH at 2022-01-27 12:16:49 International Normalization Ratio 1.3 [facility] Comment: OR Result called by ?? [...] MD HEMATOLOGY ORDERABLE S Performing Organization Address City/[facility]/ZIP Co de Phone Number [facility] [place] [address] * Platelet count (01/27/2022 11:57 AM EST) Platelet 238 145 - 357 x10(3)/mc L [facility] Immature Plt % 3.8 0.0 - 7.4 % [facility] Comment: Limitation of the Immature Platelet Fraction (IPF)-May be less reliable when the platelet count is less than 07w330/uL due to statistical imprecision. The IPF value [...] in a decreased state of production. References: [employer] The Clinical Value of the Immature Platelet Fraction (IPF) in Cell Recovery Document Number [id number] 04/2011 [employer] The Role of the Immature Platelet Fraction (IPF) in the Differential Diagnosis of Thrombocytopenia, Document [id number] V05/11/12 P05/14 Blood 01/27/2022 11:5 7 AM EST 01/27/2022 12:04 PM EST Narrative Resulting Agency Comment Spec In Lab Alicia Gtz MD HEMATOLOGY ORDERABLE S Performing Organization Address City/[facility]/ZIP Co de Phone Number [facility] [place] [address] * (ABNORMAL) Hematocrit (01/27/2022 11:57 AM EST) Hematocrit 29.8(L) 40.5 - 48.5 % [facility] Comment: This result has been called to RANDY SINGH by Liana Boswell on 01 27 2022 at 1209, and has been read back. Blood 01/27/2022 11:5 7 AM EST 01/27/2022 12:04 PM EST Narrative Resulting Agency Comment Spec In Lab Alicia Gtz MD HEMATOLOGY ORDERABLE S Performing Organization Address [facility]/ZIP Co de Phone Number [facility] [place] [address] * (ABNORMAL) Hemoglobin (01/27/2022 11:57 AM EST) Hemoglobin 10.1(L) 13.7 - 16.5 g/dL [facility] Blood 01/27/2022 11:5 7 AM EST 01/27/2022 12:04 PM EST Narrative Resulting Agency Comment Spec In Lab Alicia Gtz MD HEMATOLOGY ORDERABLE S Performing Organization Address City/[facility] Co de Phone Number [facility] [place] [address] * (ABNORMAL) BLOOD GAS 2 ARTERIAL (01/27/2022 11:13 AM EST) pH, Arterial 7.36 7.35 - 7.45 [facility] PCO2, Arterial 43 35 - 45 mmHg [facility] PO2, Arterial 426(H) 85 - 104 mmHg [facility] Bicarbonate, Arterial 24.2 20.0 - 26.0 mmol/L [facility] Base Excess, Arterial -1.2 -3.0 - 3.0 mmol/L [facility] Hgb Blood Gas 10.6(L) 13.7 - 16.5 g/dL [facility] Oxyhemoglobin, Arterial 98.6(H) 94.0 - 97.0 % [facility] Carboxyhemoglob in, Arterial 0.5 % [facility] Comment: Nonsmokers: 0.5-1.5% COHB Smokers: Variable, but usually less than 10% Toxic: 20-30% COHB Lethal: Greater than 60% COHB Methemoglobin, Arterial 0.3 <=1.5 % [facility] Na Whole Blood 135 135 - 145 mmol/L [facility] K Whole Blood 4.3 3.5 - 5.0 mmol/L [facility] Comment: Please note: Patients with WBC >100,000 may have falsely elevated Potassium levels. Contact the Clinical Chemistry Laboratory if there are any questions. ICa Whole Blood 1.00(L) 1.15 - 1.33 mmol/L [facility] Comment: Note: ??Total bilirubin higher than 20 mg/dL may lead to falsely low ionized calcium. CL Whole Blood 103 98 - 107 mmol/L [facility] Gluc Whole Bld 194 65 - 199 mg/dL [facility] Comment:Diabetes: >=200 mg/d L plus symptoms. Lactate WB 2.5(H) 0.5 - 2.2 mmol/L [facility] Blood 01/27/2022 11:1 3 AM EST 01/27/2022 11:13 AM EST Levi Hinds MD POINT OF CARE TEST ORDERABLES Performing Organization Address City/State/[facility] Co de Phone Number [facility] [place] [address] * Platelet count (01/27/2022 11:10 AM EST) Platelet 263 145 - 357 x10(3)/mc L [facility] Immature Plt % 3.8 0.0 - 7.4 % [facility] Comment: Limitation of the Immature Platelet Fraction (IPF)-May be less reliable when the platelet count is less than 00l785/uL due to statistical imprecision. The IPF value [...] in a decreased state of production. References: [employer] The Clinical Value of the Immature Platelet Fraction (IPF) in Cell Recovery Document Number [id number] 04/2011 [employer] The Role of the Immature Platelet Fraction (IPF) in the Differential Diagnosis of Thrombocytopenia, Document [id number] V004/10/14 P004/12 Blood 01/27/2022 11:1 0 AM EST 01/27/2022 11:16 AM EST Narrative Resulting Agency Comment Spec In Lab Levi Hinds MD HEMATOLOGY ORDERABL ES Performing Organization Address [facility] Co de Phone Number [facility] [place] [address] * (ABNORMAL) Hemoglobin (01/27/2022 11:10 AM EST) Pathologist [facility] Hemoglobin 9.8(L) 13.7 - 16.5 g/dL [facility] Blood 01/27/2022 11:1 0 AM EST 01/27/2022 11:16 AM EST Narrative Resulting Agency Comment Spec In Lab Levi Hinds MD HEMATOLOGY ORDERABL ES Performing Organization Address [facility] Co de Phone Number [facility] [place] [address] * Fibrinogen (01/27/2022 11:10 AM EST) Pathologist [facility] Fibrinogen 230 200 - 393 mg/dL [facility] Comment: OR Result called by ?? SALVLT OR Results read back by: ? Randy Singh at 2022-01-27 11:28:59 A fibrinogen level >100 mg/dL is adequate for hemostasis in most patients without underlying bleeding disorders. Blood 01/27/2022 11:1 0 AM EST 01/27/2022 11:16 AM EST Narrative Resulting Agency Comment Spec In Lab Levi Hinds MD HEMATOLOGY ORDERABL ES [facility] [place] [address] * (ABNORMAL) Hematocrit (01/27/2022 11:10 AM EST) Hematocrit 28.6(L) 40.5 - 48.5 % [facility] Comment: This result has been called to RANDY SINGH by Liana Boswell on 01 27 2022 at 1124, and has been read back. Blood 01/27/2022 11:1 0 AM EST 01/27/2022 11:16 AM EST Narrative Resulting Agency Comment Spec In Lab Levi Hinds MD HEMATOLOGY ORDERABL ES [facility] [place] [address] * (ABNORMAL) BLOOD GAS 2 ARTERIAL (01/27/2022 10:54 AM EST) pH, Arterial 7.37 7.35 - 7.45 [facility] PCO2, Arterial 40 35 - 45 mmHg [facility] PO2, Arterial 404(H) 85 - 104 mmHg [facility] Bicarbonate, Arterial 22.4 20.0 - 26.0 mmol/L [facility] Base Excess, Arterial -2.9 -3.0 - 3.0 mmol/L [facility] Hgb Blood Gas 10.2(L) 13.7 - 16.5 g/dL [facility] Oxyhemoglobin, Arterial 98.5(H) 94.0 - 97.0 % [facility] Carboxyhemoglob in, Arterial 0.3 % [facility] Comment: Nonsmokers: 0.5-1.5% COHB Smokers: Variable, but usually less than 10% Toxic: 20-30% COHB Lethal: Greater than 60% COHB Methemoglobin, Arterial 0.3 <=1.5 % [facility] Na Whole Blood 133(L) 135 - 145 mmol/L [facility] K Whole Blood 4.4 3.5 - 5.0 mmol/L [facility] Comment: Please note: Patients with WBC >100,000 may have falsely elevated Potassium levels. Contact the Clinical Chemistry Laboratory if there are any questions. ICa Whole Blood 0.98(L) 1.15 - 1.33 mmol/L [facility] Comment: Note: ??Total bilirubin higher than 20 mg/dL may lead to falsely low ionized calcium. CL Whole Blood 103 98 - 107 mmol/L [facility] Gluc Whole Bld 188 65 - 199 mg/dL [facility] Comment:Diabetes: >=200 mg/d L plus symptoms. Lactate WB 2.3(H) 0.5 - 2.2 mmol/L [facility] Blood 01/27/2022 10:5 4 AM EST 01/27/2022 10:54 AM EST Leiv Hinds MD POINT OF CARE TEST ORDERABLES [facility] [place] [address] * (ABNORMAL) BLOOD GAS 2 ARTERIAL (01/27/2022 10:26 AM EST) pH, Arterial 7.35 7.35 - 7.45 [facility] PCO2, Arterial 44 35 - 45 mmHg [facility] PO2, Arterial 412(H) 85 - 104 mmHg [facility] Bicarbonate, Arterial 24.0 20.0 - 26.0 mmol/L [facility] Base Excess, Arterial -1.5 -3.0 - 3.0 mmol/L [facility] Hgb Blood Gas 9.6(L) 13.7 - 16.5 g/dL [facility] Oxyhemoglobin, Arterial 98.4(H) 94.0 - 97.0 % [facility] Carboxyhemoglob in, Arterial 0.4 % [facility] Comment: Nonsmokers: 0.5-1.5% COHB Smokers: Variable, but usually less than 10% Toxic: 20-30% COHB Lethal: Greater than 60% COHB Methemoglobin, Arterial 0.3 <=1.5 % [facility] Na Whole Blood 132(L) 135 - 145 mmol/L [facility] K Whole Blood 4.7 3.5 - 5.0 mmol/L [facility] Comment: Please note: Patients with WBC >100,000 may have falsely elevated Potassium levels. Contact the Clinical Chemistry Laboratory if there are any questions. ICa Whole Blood 0.96(L) 1.15 - 1.33 mmol/L [facility] Comment: Note: ??Total bilirubin higher than 20 mg/dL may lead to falsely low ionized calcium. CL Whole Blood 103 98 - 107 mmol/L [facility] Gluc Whole Bld 174 65 - 199 mg/dL [facility] Comment:Diabetes: >=200 mg/d L plus symptoms. Lactate WB 2.4(H) 0.5 - 2.2 mmol/L [facility] Blood 01/27/2022 10:2 6 AM EST 01/27/2022 10:26 AM EST Levi Hinds MD POINT OF CARE TEST ORDERABLES [facility] [place] [address] * (ABNORMAL) BLOOD GAS 2 ARTERIAL (01/27/2022 9:55 AM EST) pH, Arterial 7.40 7.35 - 7.45 [facility] PCO2, Arterial 38 35 - 45 mmHg [facility] PO2, Arterial 436(H) 85 - 104 mmHg [facility] Bicarbonate, Arterial 23.0 20.0 - 26.0 mmol/L [facility] Base Excess, Arterial -1.8 -3.0 - 3.0 mmol/L [facility] Hgb Blood Gas 9.4(L) 13.7 - 16.5 g/dL [facility] Oxyhemoglobin, Arterial 98.1(H) 94.0 - 97.0 % [facility] Carboxyhemoglob in, Arterial 0.8 % [facility] Comment: Nonsmokers: 0.5-1.5% COHB Smokers: Variable, but usually less than 10% Toxic: 20-30% COHB Lethal: Greater than 60% COHB Methemoglobin, Arterial 0.3 <=1.5 % [facility] Na Whole Blood 131(L) 135 - 145 mmol/L [facility] K Whole Blood 4.5 3.5 - 5.0 mmol/L [facility] Comment: Please note: Patients with WBC >100,000 may have falsely elevated Potassium levels. Contact the Clinical Chemistry Laboratory if there are any questions. ICa Whole Blood 0.93(L) 1.15 - 1.33 mmol/L [facility] Comment: Note: ??Total bilirubin higher than 20 mg/dL may lead to falsely low ionized calcium. CL Whole Blood 101 98 - 107 mmol/L [facility] Gluc Whole Bld 170 65 - 199 mg/dL [facility] Comment:Diabetes: >=200 mg/d L plus symptoms. Lactate WB 1.7 0.5 - 2.2 mmol/L [facility] Blood 01/27/2022 9:55 AM EST 01/27/2022 9:55 AM EST Levi Hinds MD POINT OF CARE TEST ORDERABLES [facility] [place] [address] * (ABNORMAL) BLOOD GAS 2 ARTERIAL (01/27/2022 8:20 AM EST) pH, Arterial 7.40 7.35 - 7.45 [facility] PCO2, Arterial 43 35 - 45 mmHg [facility] PO2, Arterial 183(H) 85 - 104 mmHg [facility] Bicarbonate, Arterial 26.0 20.0 - 26.0 mmol/L [facility] Base Excess, Arterial 1.2 -3.0 - 3.0 mmol/L [facility] Hgb Blood Gas 13.0(L) 13.7 - 16.5 g/dL [facility] Oxyhemoglobin, Arterial 97.5(H) 94.0 - 97.0 % [facility] Carboxyhemoglob in, Arterial 1.2 % [facility] Comment: Nonsmokers: 0.5-1.5% COHB Smokers: Variable, but usually less than 10% Toxic: 20-30% COHB Lethal: Greater than 60% COHB Methemoglobin, Arterial 0.3 <=1.5 % [facility] Na Whole Blood 139 135 - 145 mmol/L [facility] K Whole Blood 4.1 3.5 - 5.0 mmol/L [facility] Comment: Please note: Patients with WBC >100,000 may have falsely elevated Potassium levels. Contact the Clinical Chemistry Laboratory if there are any questions. ICa Whole Blood 1.08(L) 1.15 - 1.33 mmol/L [facility] Comment: Note: ??Total bilirubin higher than 20 mg/dL may lead to falsely low ionized calcium. CL Whole Blood 103 98 - 107 mmol/L [facility] Gluc Whole Bld 192 65 - 199 mg/dL [facility] Comment:Diabetes: >=200 mg/d L plus symptoms. Lactate WB 2.4(H) 0.5 - 2.2 mmol/L [facility] FIO2 Art 70 % [facility] PF Ratio Art 261 [facility] Blood 01/27/2022 8:20 AM EST 01/27/2022 8:20 AM EST Levi Hinds MD POINT OF CARE TEST ORDERABLES Performing Organization Address [facility] Co de Phone Number [facility] [place] [address] * Prepare RBC (01/27/2022 6:35 AM EST) Dispensed? Yes [facility] Blood 01/27/2022 6:35 AM EST 01/27/2022 6:30 AM EST Levi Hinds MD BLOOD BANK PRODUCT ORDERABLES Performing Organization Address [facility] Co de Phone Number [facility] [place] [address] * (ABNORMAL) POCT Glucose (01/27/2022 6:29 AM EST) Glucose, POC 218(H) 65 - 199 mg/dL [facility] Comment: Supplemental ranges: <140 mg/dL before meals <180 mg/dL all other times of the day Blood 01/27/2022 6:29 AM EST 01/27/2022 6:29 AM EST Levi Hinds MD POINT OF CARE TEST ORDERABLES Performing Organization Address [facility] Phone Number [facility] [place] [address] documented in this encounter Visit Diagnoses Not on filedocumented in this encounter Admitting Diagnoses Diagnosis CAD (coronary artery disease) Coronary atherosclerosis of unspecified type of vessel, [place] or graft documented in this encounter Administered Medications Inactive Administered Medications - up to 3 most recent administrations Medication Order MAR Action Action Date Dose Rate Site acetaminophen (Tylenol) tablet 1,000 mg 1,000 mg, Oral, EVERY 6 HOURS SCHEDULED, First dose on Thu01/28/22 at 1200, Until Discontinued, For pain when taking by mouth. Maximum dose of acetaminophen is 4000 mg from all sources in 24 hours. When ordered for pain, acetaminophen should be given even when other ordered pain medications are indicated., Routine Given 01/31/2022 11:42 AM EST 1,000 mg Given 01/31/2022 5:22 AM EST 1,000 mg Given 01/31/2022 12:19 AM EST 1,000 mg AMIOdarone (Paceron) tablet 200 mg 200 mg, [...] on Thu01/30/22 at 1700, Until Discontinued, Routine Given 01/30/2022 5:08 PM EST 20 mg calcium chloride 10% (100 mg/mL) injection ONCE PRN, Starting on Thu01/27/22 at 1128, Until Thu01/27/22 at 1301, Intra-Operative (Intra-Procedure), Routine Given 01/27/2022 11:43 AM EST 250 mg Given 01/27/2022 11:39 AM EST 250 mg Given 01/27/2022 11:28 AM EST 0.5 g cardioplegic solution no.16 (Cardioplegia [place] Formula) solution CONTINUOUS PRN, Starting on Thu01/27/22 at 1012, Until Thu01/27/22 at 1012, Intra-Operative (Intra-Procedure) New Bag 01/27/2022 10:12 AM EST 880 mLs dextrose 10% infusion 250 mL, at 1,000 [...] for the duration of the active insulin. electrolyte replacement solution (pH 7.4) (Normosol-R, Plasmalyte-A) infusion CONTINUOUS PRN, Starting on Thu01/27/22 at 0725, Until Thu01/27/22 at 0725, Intra-Operative (Intra-Procedure) New Bag 01/27/2022 7:25 AM EST 1,350 mLs furosemide (Lasix) (10 mg/mL) injection 20 mg [...] weight of tube = 37.5 grams., Routine heparin (porcine) (1,000 units/mL) injection ONCE PRN, Starting on Thu01/27/22 at 0728, Until Thu01/27/22 at 1301, Intra-Operative (Intra-Procedure), Routine Given 01/27/2022 10:56 AM EST 5,000 Units Given 01/27/2022 10:03 AM EST 10,000 Units Given 01/27/2022 7:28 AM EST 5,000 Units insulin lispro (HumaLOG;Admelog) (100 unit/mL) subcutaneous [...] Given 01/30/2022 5:09 PM EST 1 Units ipratropium-albuteroL (Duoneb) 0.5 mg-3 mg(2.5 mg base)/3 [...] 8:05 AM EST 10 mLs magnesium sulfate (4 mEq/mL) (50 %) injection ONCE PRN, Starting on Thu01/27/22 at 1126, Until Thu01/27/22 at 1301, Intra-Operative (Intra-Procedure), Routine Given 01/27/2022 11:26 AM EST 2 g mannitoL (50 grams and over) 100 g/500 mL (20%) infusion CONTINUOUS PRN, Starting on Thu01/27/22 at 1011, Until Thu01/27/22 at 1011, Intra-Operative (Intra-Procedure) New Bag 01/27/2022 10:11 AM EST 50 g metoprolol tartrate (Lopressor) tablet 50 mg 50 mg, Oral, EVERY 12 HOURS SCHEDULED (2 times per day), First dose (after last modification) on Thu01/31/22 at 2100, Until Discontinued, Routine ondansetron (pf) (Zofran) (2 mg/mL) injection [...] 01/31/2022 12:20 AM EST 10 mg pantoprazole EC (Protonix) tablet 40 mg 40 mg, Oral, DAILY, First dose on Thu01/27/22 at 1415, Until Discontinued, DO NOT CRUSH OR OPEN If unable to take PO, may give IV Given 01/31/2022 8:49 AM EST 40 mg Given 01/30/2022 8:08 AM EST 40 mg senna-docusate (Pericolace) 8.6-50 mg per tablet 2 [...] 01/29/2022 2:05 PM EST 80 mg sodium chloride 0.9 % (flush) (BD PosiFlush Normal Saline 0.9) flush 5 mL 5 mL, Intravenous, EVERY 8 HOURS, First dose on Thu01/29/22 at 1645, Until Discontinued, Routine Given 01/31/2022 8:56 AM EST 5 mLs Given 01/29/2022 11:03 PM EST 5 mLs thrombin (human)-fibrin-calcium (VistaSeal) topical syringe ONCE PRN, Starting on Thu01/27/22 at 1233, Until Thu01/27/22 at 1301, Intra-Operative (Intra-Procedure), Routine Given 01/27/2022 12:33 PM EST 4 mLs vancomycin (Vancocin) injection ONCE PRN, Starting on Thu01/27/22 at 1232, Until Thu01/27/22 at 1301, Intra-Operative (Intra-Procedure), Routine Given 01/27/2022 12:32 PM EST 1 g verapamiL (Isoptin) (2.5 mg/mL) injection ONCE PRN, Starting on Thu01/27/22 at 1232, Until Thu01/27/22 at 1301, Administer over 2 Minutes, Intra-Operative (Intra-Procedure) Given 01/27/2022 12:32 PM EST 5 mg documented in this encounter Active and Recently [...] Roberth Camilo RN)1117 (Given - Provider: Rehan Cuevas RN)1708 (Given - Provider: Rehan Cuevas RN) 0019 (Given - Provider: Iain Dukes, RN)0522 (Given - Provider: Iain Dukes, GET)1142 (Given - Provider: Rehan Cuevas RN) AMIOdarone (CORDARONE) bolus from bag 150 [...] Routine 0645 (Given - Provider: Roberth Camilo RN)2046 (Given - Provider: Iain Dukes, GET) 0850 (Given - Provider: Rehan Cuevas, GET) apixaban (Eliquis) tablet 5 mg 5 mg, Oral, 2 TIMES DAILY, First dose on Thu01/28/22 at 0900, Until Discontinued, Anticoagulant, Routine, Restricted anticoagulant, choose the most appropriate response: Continuation of ongoing therapy 0805 (Given - Provider: Lis Brennan RN)2126 (Given - Provider: Roberth Camilo RN) 0808 (Given - Provider: Rehan Cuevas, GET)2046 (Given - Provider: Iain Dukes, GET) 0850 (Given - Provider: Rehan Cuevas, GET) aspirin chewable tablet 81 mg(Linked Group 3) 81 mg, Oral, DAILY, First dose on Thu01/27/22 at 1415, Until Discontinued, Routine 0805 (Given - Provider: Lis Brennan RN) 0808 (Given - Provider: Rehan Cuevas, GET) 0849 (Given - Provider: Rehan Cuevas, GET) atorvastatin (Lipitor) tablet 20 mg 20 mg, Oral, EVERY EVENING, First dose (after last modification) on Thu01/30/22 at 1700, Until Discontinued, Routine 1708 (Given - Provider: Rehan Cuevas, GET) chlorhexidine (Peridex) 0.12 % oral solution 15 mL (CANCELED) 15 mL, Oral, EVERY 12 HOURS SCHEDULED (2 times per day), First dose on Thu01/27/22 at 1415, Until Discontinued, [place] teeth, Routine 0805 (Given - Provider: Lis Brennan RN) furosemide (Lasix) (10 mg/mL) injection 20 mg 20 mg, Intravenous, 2 TIMES DAILY, First dose on Thu01/29/22 at 0900, Until Discontinued 0859 (Given - Provider: Lis Brennan RN)1703 (Given - Provider: Lis Brennan RN) 0808 (Given - Provider: Rehan Cuevas RN)1709 (Given - Provider: Rehan Cuevas, GET) 0849 (Given - Provider: Rehan Cuevas RN) [...] parameters not met)1804 (Given - Provider: Rehan Cuevas, GET) 0856 (Given - Provider: Rehan Cuevas, GET)1200 (Not Given - Provider: Rehan Cuevas RN [...] hours., Routine 0737 (Given - Provider: Rehan Cuevas, GET)1117 (Given - Provider: Rehan Cuevas, GET)1709 (Given - Provider: Rehan Cuevas, RN) 0730 [...] (Patch Removed - Provider: Rehan Cuevas, RN) 1100 (Patch Removed - Provider: Rehan Cuevas, RN) magnesium hydroxide (Milk of Magnesia) (240 mg/mL) oral liquid 10 mL 10 mL, Oral, DAILY, First dose on Thu01/29/22 at 0900, Until Discontinued, Post-op day 2. Do not use with renal insufficiency., Routine 0805 (Given - Provider: Lis Brennan RN) 0808 (Given - Provider: Rehan Cuevas RN) 0849 (Given - Provider: Rehan Cuevas RN) metoprolol tartrate (Lopressor) tablet 12.5 mg [...] on Thu01/29/22 at 2100, Until Discontinued, Routine 212 (Given - Provider: Roberth Camilo RN) 0808 (Given - Provider: Rehan Cuevas RN)2045 (Given - Provider: Iain Dukes RN) 0850 (Given - Provider: Rehan Cuevas RN) metoprolol tartrate (Lopressor) tablet 25 mg (COMPLETED) 25 mg, Oral, ONCE, 1 dose, On Thu01/31/22 at 1200, Routine 1142 (Given - Provider: Rehan Cuevas RN) metoprolol tartrate (Lopressor) tablet 50 mg 50 [...] IV 0805 (See Alternative - Provider: Lis Brnenan RN) 0808 (Given - Provider: Rehan Cuevas RN) 0849 (Given - Provider: Rehan Cuevas RN) senna-docusate (Pericolace) 8.6-50 mg per tablet 2 tablet 2 tablet, Oral, DAILY, First dose on Thu01/28/22 at 2100, Until Discontinued, Post-op day 1, Routine 2125 (Given - Provider: Roberth Camilo, GET) 204 (Given - Provider: Iain Dukes, RN) sodium chloride 0.9 % (flush) (BD PosiFlush Normal Saline 0.9) flush 5 mL 5 mL, Intravenous, EVERY 8 HOURS, First dose on Thu01/29/22 at 1645, Until Discontinued, Routine 164 (Hold - Provider: Lis Brennan RN - [...] RN)1008 (Rate/Dose Change - Provider: Lis Brennan, RN)1108 (Rate/Dose Change - Provider: Lis Brennan, GET)1148 (New Bag - Provider: Jensen Gardner)1510 (Rate/Dose [...] 10 mg, Rectal, DAILY PRN, Starting on Radha 01/30/22 at 0000, Until Thu01/31/22 at 1511, Constipation, [...] Camilo RN)1117 (Given - Provider: Rehan Cuevas, GET)1542 (Given - Provider: Rehan Cuevas, RN)2013 (Given - Provider: Chula Mandel RN) 0020 (Given - Provider: Iain Dukes, GET)0522 (Given - Provider: Iain Dukes, GET)1007 (Given - Provider: Lorene Bartlett RN) simethicone (Mylicon) chewable tablet 80 mg 80 mg, Oral, EVERY 6 HOURS PRN, Starting on Thu01/29/22 at 1158, Until Thu01/31/22 at 1511, Cramping, Routine 1405 (Given - Provider: Lis Brennan RN) 0415 (Given - Provider: Roberth Camilo RN) sodium chloride 0.9% infusion (CANCELED) 10-30 mL/hr, Intravenous, DAILY PRN, Starting on Thu01/27/22 at 1316, Until Thu01/29/22 at 1553, Side port TKO rate, per [facility] nursing protocol. 0000 (Rate/Dose Verify - Provider: Roberth Camilo, GET)0200 (Rate/Dose Verify - Provider: Roberth Camilo RN)0400 (Rate/Dose Verify - Provider: Roberth Camilo RN)0600 (Rate/Dose Verify - Provider: Roberth Camilo RN)0755 [...] 6 hours upon arrival to Unit. Give MO if unable to take PO, Routine Group [...] Routine documented in this encounter Care Teams Kiln Stoker Relationship Specialty Start Date End Date Randa Rosas APRN [address] [place] [address] PCP - General 12/29/12 04/16/22 documented as of this encounter
--- OUTSIDE RECORDS SUMMARY | 2024-11-18 16:55 | XMS_ITS | Encounter Summary ---
Author Organization [facility] [place] [address] Care Team Providers Care Supervisor Body Assembly Name Role Phone Randa Rosas APRN Primary Care Provider +1- [phone] Encounter Details Date Type Department Care Team (Latest Contact Info) Description 01/07/2022 Travel Social History Tobacco Use Types Packs/Day [...] on filedocumented in this encounter Care Teams Supervisor Body Assembly Relationship Specialty Start Date End Date Randa Rosas APRN [address] [place] [phone] PCP - General 12/29/12 04/16/22 documented as of this encounter
--- OUTSIDE RECORDS SUMMARY | 2024-11-18 16:55 | XMS_ITS | Encounter Summary ---
[place] [address] Care Team Providers Care Domestic Freight Forwarder Name Role Phone AlisonRanda VALENTIN Primary Care Provider +1- [phone] Encounter Details Date Type Department Care Team (Latest Contact Info) Description 12/19/2021 1:55 PM EST Laboratory Appointment Lab [address] [place] [phone] Unstable angina Social History Tobacco Use Types Packs/Day Years Used Date Smoking Tobacco: Former Cigarettes Q uit: 11/30/1996 Smokeless Tobacco: Never Comments:smokes marij Alcohol Use Standard Drinks/Week Comments Yes 0 (1 standard drink = 0.6 oz pur e alcohol) seldom Sex and Gender Information Value Date Recorded Sex Assigned at Not on file Gender Identity Not on file Sexual Orientation Not on file documented as of this encounter Plan of Treatment Not on file documented as of this encounter Procedures Procedure Name Priority Date/Time Associated Diagnosis Comments HEMOGRAM Routine 12/19/2021 2:01 PM EST Unstable angina DIFFERENTIAL, AUTOMATED Routine 12/19/2021 2:01 PM EST Unstable angina HC PROTHROMBIN TIME Routine 12/19/2021 2 :01 PM EST Unstable angina HC CBC,PLT & AUTO DIFF Routine 12/19/2021 2:01 PM EST Unstable angina HC TROPONIN T STAT 12/19/2021 2:01 PM EST Unstable angina BASIC METABOLIC PANEL Routine 12/19/2021 2:01 PM EST Unstable angina documented in this encounter Results * (ABNORMAL) Differential, Automated (12/19/2021 2:01 PM EST) Neutrophil % 62.6 % [facility] Neutrophil Absolute 6.76(H) 1.70 - 6.10 x10(3)/mc L [facility] Lymph % 27.1 % [facility] Lymphocytes Abs 2.9 0.9 - 3.2 x10(3)/mc L [facility] Monocyte % 8.6 % [facility] Monocyte Abs 0.9 0.3 - 0.9 x10(3)/mc L [facility] Eos % 1.0 % [facility] Eosinophils Abs 0.1 0.0 - 0.4 x10(3)/mc L [facility] Basophil % 0.4 % [facility] Baso Absolute 0.0 0.0 - 0.1 x10(3)/mc L [facility] Immature Gran % 0.30 % [facility] Comment: Immature granulocytes(IG's)percentage and absolute count will include metamyelocytes, myelocytes, and promyelocytes. Blood smears from CBCs yielding IG's will be scanned manually for concordance. If this scan disagrees with the automated IG or if promyelocytes are noted, a manual differential will be performed. Immature Gran Absolute 0.03 0.00 - 0.04 x10(3)/mc L [facility] Blood 12/19/2021 2:01 PM EST 12/19/2021 2:07 PM EST Narrative Resulting Agency Comment Spec In Lab Sohail BADILLO HEMATOLOGY ORDERABL ES [facility] [place] [address] * (ABNORMAL) Hemogram (12/19/2021 2:01 PM EST) White Blood Cell 10.8(H) 4.0 - 9.5 x10(3)/[facility] Red Blood Cell 4.73 4.58 - 5.54 x10(6)/ L [facility] Hemoglobin 14.4 13.7 - 16.5 g/dL [facility] Hematocrit 43.2 40.5 - 48.5 % [facility] Mean Cell Volume 91.3 82.9 - 93.1 [facility] Mean Cell Hemoglobin 30.4 27.5 - 32.1 pg [facility] Mean Cell Hemoglobin Concentration 33.3 32.0 - 35.7 g/dL [facility] Platelet 307 145 - 357 x10(3)/[facility] RDW Standard Deviation 42.4 36.0 - 45.0 [facility] RDW coefficient of variation 12.7 11.4 - 13.8 % [facility] Mean Platelet Volume 10.8 7.6 - 12.9 [facility] NRBC% auto 0.0 % [facility] NRBC Absolute 0.000 0.000 - 0.000 x10(3)/[facility] Blood 12/19/2021 2:01 PM EST 12/19/2021 2:07 PM EST Narrative Resulting Agency Comment Spec In Lab Sohail BADILLO HEMATOLOGY ORDERABL ES [facility] [place] [address] * (ABNORMAL) Basic Metabolic Panel (non-fasting) (12/19/2021 2:01 PM EST) Pathologist [facility] Glucose 135 65 - 199 mg/dL [facility] Comment:Diabetes: >=200 mg/d L plus symptoms Blood Urea Nitrogen 11 10 - 20 mg/dL [facility] Creatinine 1.06 0.80 - 1.50 mg/dL [facility] Sodium 139 135 - 145 mmol/L [facility] Potassium 4.6 3.5 - 5.0 mmol/L [facility] Comment: Please note: ??Patients with WBC >100,000 may have falsely elevated Potassium levels. ??For accurate Potassium quantification in these patients send serum separator tube (gold top) for subsequent determinations. ??Contact the Clinical Chemistry Laboratory if there are any questions. Chloride 98 98 - 107 mmol/L [facility] Carbon Dioxide 25 22 - 31 mmol/L [facility] Anion Gap 16(H) 5 - 15 mmol/L [facility] Calcium 9.4 8.5 - 10.5 mg/dL [facility] Est Glomerular Filtration Rate 73 >=60 mL/min/1. 73 m?? [facility] Comment: This patient? s estimated glomerular filtration rate (eGFR) is between 73 mL/min/1.73 m2 (patients with less muscle mass per kg body weight) and 85 mL/min/1.73 m2 (patients with more muscle mass [...] and symptoms in addition to eGFR. Blood 12/19/2021 2:01 PM EST 12/19/2021 2:07 PM EST Narrative Resulting Agency Comment Spec In Lab Yoandy Wheatley MD CHEMISTRY ORDERABLE S [facility] [place] [address] * Prothrombin Time (12/19/2021 2:01 PM EST) Prothrombin Time 12.5 9.4 - 12.5 sec [facility] International Normalization Ratio 1.1 [facility] Comment: An INR <2.0 indicates adequate procoagulant activity for hemostasis in most patients without underlying bleeding disorders, though the INR may not adequately reflect hemostatic capacity in patients with liver disease and synthetic impairment. The recommended target INR range for therapeutic anticoagulation is 2.0 ? 3.0 for most applications, though lower and higher ranges may be appropriate depending on clinical circumstances. Blood 12/19/2021 2:01 PM EST 12/19/2021 2:07 PM EST Narrative Resulting Agency Comment Spec In Lab Yoandy Wheatley MD HEMATOLOGY ORDERABL ES [facility] [place] [address] * Troponin (12/19/2021 2:01 PM EST) Troponin-T <0.01 0.00 - 0.00 ng/mL [facility] Comment: The 99th percentile for Troponin T is less than 0.01 ng/mL, any detectable cTnT concentration using this assay should be considered elevated. According to the third universal definition of myocardial infarction the following criteria with a clinical presentation consistent with acute myocardial ischemia meets the diagnosis for a myocardial infarction ([place]). Detection of a rise and/or fall of cTnT, with at least one value greater than the 99th percentile (> or = 0.01) and with at least one of the following ?? Symptoms of ischemia ?? New or presumed new significant XL-[id number]-M wave (ST-T) changes or new left bundle [...] additional sample may be indicated. Reference: Third [place] Definition of Myocardial Infarction. Journal of the [employer] 2012;60:1581-98 Blood 12/19/2021 2:01 PM EST 12/19/2021 2:07 PM EST Narrative Resulting Agency Comment Spec In Lab Yoandy Wheatley MD CHEMISTRY ORDERABLE S [facility] [place] [address] documented in this encounter Visit Diagnoses Diagnosis Unstable angina Intermediate coronary syndrome documented in this encounter Care Teams Domestic Freight Forwarder Relationship Specialty Start Date End Date Randa Rosas APRN [address] [place] [phone] PCP - General 12/29/12 04/16/22 documented as of this encounter
--- OUTSIDE RECORDS SUMMARY | 2024-11-18 16:55 | XMS_ITS | Encounter Summary ---
Author Organization [facility] Address [facility] [place] [address] Care Team Providers Care Prep Person Name Role Phone Randa Rosas VALENTIN Primary Care Provider +1- [phone] Encounter Details Date Type Department Care Team (Late st Contact Info) Description 11/18/2017 1:00 PM EST Office [place] [phone] Lenore Baron APRN [facility] [place] [address] Surgery follow-up Social History Tobacco Use Types Packs/Day Years Used Date Smoking Tobacco: Former Cigarettes Q uit: 11/30/1996 Smokeless Tobacco: Never Alcohol Use Standard Drinks/Week Comments Yes 0 (1 standard drink = 0.6 oz pur e alcohol) seldom Sex and Gender Information Value Date Recorded Sex Assigned at Not on file Gender Identity Not on file Sexual Orientation Not on file documented as of this encounter Last Filed Vital Signs Vital Sign Reading Time Taken Comments Blood Pressure - - Pulse - - Temperature - - Respiratory Rate - - Oxygen Saturation - - Inhaled Oxygen Concentration - - Weight 94.8 kg (209 lb) 11/18/2017 12:50 PM EST Height - - Body Mass Index 32.73 10/27/2017 4:08 PM EST documented in this encounter Progress Notes * Lenore Baorn APRN - 11/18/2017 1:00 PM EST Reg Salazar is here for surgical follow up 10/29/2017:ventral hernia repair with mesh, parastomal hernia repair, ANJU , appendectomy, umbilicoplasty-Felix ?? Findings: 1. 17 x 14 cm incisional and parastomal hernia 2. 1 unavoidable enterotomy, repaired with interrupted silk suture 3. Incarcerated small bowel in parastomal hernia, reduced using blunt and sharp dissection 4. Lysis of adhesions for > 150 minutes 5. Parastomal hernia closed primarily, then biologic/Strattice mesh used to cover defect and incisional hernia. Fascia closed primarily over mesh 6. 2 drains left in subq tissue 7. Appendectomy preformed Pathology: DIAGNOSIS A - Appendix within normal limits. B - ??Fibromembranous tissue, hernia sac , site not specified. ?Gross surgical pathology examination. Feels well, no fevers chills or abdominal pain, no nausea or vomiting. No difficulty with incision or ostomy. Pleased with progress Appetite good and stamina increasing. EXAM: Non toxic appearing, moves easily about exam room and onto the exam table. Abd soft non tender non distended, ostomy pink and viable with brown, oatmeal consistency stool in the pouch.No evidence of hernia Impression/plan: Doing very well, seen with Dr Washington. Reg may FU with us on an as needed basis we are happy to see him back should anything specific arise documented in this encounter Plan of Treatment Not on file documented as of this encounter Procedures Procedure Name Priority Date/Time Associated Diagnosis Comments ORDS - PROVIDER CARE SCAN 12/31/2017 12:00 AM EST documented in this encounter Results * SCAN DOC: ORDS - PROVIDER CARE (12/31/2017 12:00 AM EST) Narrative 12/31/2017 12:00 AM EST Ordered by an unspecified provider. Scanning Provider MEDIA MGR SCAN EXT O RDR/RSLT documented in this encounter Visit Diagnoses Diagnosis Surgery follow-up Follow-up examination, following unspecified surgery documented in this encounter Care Teams Prep Person Relationship Specialty Start Date End Date Randa Rosas APRN [address] [place] [address] PCP - General 12/29/12 04/16/22 documented as of this encounter
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
--- OUTSIDE RECORDS SUMMARY | 2024-11-18 16:55 | XMS_ITS | Encounter Summary ---
Author Organization [facility] [place] [address] Care Team Providers Care Laborer [facility] Name Role Phone Randa Rosas APRN Primary Care Provider [phone] Reason for Visit * Auth/Cert Specialty Diagnoses / Procedures Referred By Contac t Referred To Contact Diagnoses Unstable angina [I20.0] Procedures PRG CATH PLMT LEFT HEART CATH & ARTS W/INJ & ANGIO IMG S&I CARDIAC CATHETERIZATION CORONARY ANGIOGRAPHY; W LHC,POSSIBLE PCI Referral ID Status Reason Start Date Expiration Date Visits Re quested Visits Authorized [id number] 1 1 Encounter Details Date Type Department Care Team (Late st Contact Info) Description 12/30/2021 10:00 AM EST - 12/30/2021 11:00 AM EST Surgery [place] [address] Praneeth Malhotra MD CARDIAC CATHETERIZATION Social History Tobacco Use Types Packs/Day Years [...] Sign Reading Time Taken Comments Blood Pressure 129/67 12/30/2021 8:40 AM EST Pulse 80 12/30/2021 8:40 AM EST Temperature 36.1 ??C (97 ??F) 12/30/2021 8:40 AM EST Respiratory Rate 18 12/30/2021 8:40 AM EST Oxygen Saturation 98% 12/30/2021 8:40 AM EST Inhaled Oxygen Concentration - - Weight 113.4 kg (250 lb) 12/30/2021 8:40 AM EST Height 170.2 cm (5' 7) 12/30/2021 8:40 AM EST Body Mass Index 39.16 12/30/2021 8:40 AM EST documented in this encounter Discharge Instructions * Discharge Instructions* Yesenia Torres RN - 12/30/2021 1:05 PM EST Radial Access for Heart Cath Activity If you are discharged the same day as your procedure, do not drive yourself home. Arrange to have another person drive. You may walk around when you get home, but keep your activity at a minimum until the morning. Try to avoid bending your wrist for the first 12-24 hours after the procedure to allow the artery to fully heal. Do not participate in active sports for 48 hours. Do not lift anything greater than 5 lbs. You may engage in sexual activity after 48 hours. Catheter Insertion Area Care Take the dressing off of the catheter insertion site the morning following the procedure. Leave thesite open to air. If the site is oozing you may cover it with a band aid. You may take a shower if you wish. Look for signs of infection over the next several days. It is uncommon to have any visible blood at the site, any obvious bleeding is abnormal. A bruise around the wrist or small lump under the skin is normal: they generally disappear in 3-5 days. Expect some mild tenderness over the area where the catheter was inserted. You will notice this after the local anesthetic (numbing medicine) wears off. This should improve during the 24-48 hours after the procedure. You may use acetaminophen (tylenol) if needed. Contact your doctor if the discomfort worsens. Problems to Watch for If there is bright red blood flowing from the catheter insertion area: *stop what you are doing *hold pressure steadily on the area for 15 minutes *call for help *if the bleeding does not stop in 15 minutes call 911 for an ambulance. If there is swelling with black and blue color at the catheter insertion site, there may be bleeding inside. Contact the doctor if there is any increase in size. Look at the insertion site for the first few days at home. Signs of infection are: *redness *swelling *yellow, white, green or brown foul smelling drainage. *increased soreness If you think there is an infection, take your temperature. Then call your doctor. The limb on the side where you had your catheterization should look and feel normal in color, sensation, and temperature. If your hand or fingers become cool, pale, blue or change color contact your doctor. If you are having numbness or tingling in your fingers or hand contact your doctor. If you feel faint or dizzy, lie down with your feet elevated. Have someone call the doctor. If you are alert, drink fluids. How to Deal with Chest Pain If you had only the cardiac catheterization, treat any angina or chest discomfort as instructed. Stop what you are doing, and sit or lie down. If prescribed, take nitroglycerin under your tongue. If the angina isn't relieved, take another nitroglycerin in 5 minutes. After another 5 minutes, a third nitroglycerin may be taken. If the angina isn't improved you should call for an ambulance to bring you to the nearest hospital emergency room. If your angina is more frequent or severe than before, contact your doctor. We usually would not expect you to have angina after an angioplasty. If you do get angina, treat itas you did before, but also contact your doctor. Return to Work The doctor will usually have told you when to return to work. If you do not perform heavy physical labor, most people can return to work in a few days. Diet Follow your previous diet unless otherwise instructed. Cardiac Risk Factor If you have coronary artery disease, it is important that you help control it by reducing your cardiac risk factors. If you smoke, we urge you to stop now. If you think this is going to be a problem,let us know so that we may help you. We have dieticians who can help you learn about a low fat, lowcholesterol diet. Cardiac rehabilitation programs can help you set up a regular exercise program. Work with your doctor if you have high blood pressure or sugar diabetes to keep these under control. Medications Take your usual medications medication changes If you are taking medications prescribed by your doctor, do not take any gdvk-[id number] medicinesor herbal preparations without first discussing this with your doctor or pharmacist. There is the possibility of side effects and interactions when these are combined. Follow Up Care Who to call with questions or problems If there are any questions or problems that you think might be related to your cardiac cath or angioplasty, contact the mounted police officer fermentation engineer by calling [facility] at . * Patient Instructions* Faisal Miguel MD - 12/30/2021 12:44 PM EST * You will be contacted by the cardiac surgery team for a follow up appointment. * In the meantime, take all of your medications as prescribed. * Attachments The following attachments cannot be sent through Care Everywhere. * Coronary Angiogram: Post-op (Kiswahili) documented in this encounter Medications at Time of Discharge Medication Sig Dispensed Refills Start Date End Date aspirin 81 mg Tablet, Chewable Take 81 [...] tablet Take 1 tablet by mouth daily. ibuprofen (ADVIL;MOTRIN) 600 mg Tablet Take 1 tablet by mouth every 6 hours. 30 tablet 12 11/04/2017 01/31/2022 JANUMET 50-1,000 mg Tablet Take 1 tablet by mouth 2 times daily. 08/18/2017 12/05/2022 lisinopril (PRINIVIL;ZESTRIL) 10 mg tablet Take 10 mg by mouth 2 times daily. 01/31/2022 documented as of this encounter Progress Notes * Yesenia Torres RN - 12/30/2021 1:58 PM EST Patient meets discharge criteria at this time. VSS. Dressing to right wrist cdi. +2 pulse. Sling provided for RUE. AVS reviewed w/ patient and significant other, both verbalized understanding. Patient discharged home w/ significant other. Yesenia Torres RN documented in this encounter H&P Notes * Faisal Miguel MD - 12/30/2021 11:05 AM EST Images from the original note were not included. Pre Cardiac Catheterization Note 66 y.o. male presents with exertional dyspnea and chest pain who presents for C/coronary angiogram. He has a PMH HTN, HLD, DM who saw Dr. Wheatley on 12/19/2021. Given risk factors and typical symptoms patient was referred straight for angiogram. Took his ASA last night. Denies planned upcoming surgeries. Denies recent or ongoing bleeding events. BP 129/67 (BP Location (NBP): Left arm) Pulse 80 Temp 36.1 ??C (97 ??F) (Temporal) Resp 18 Ht 170.2 cm (5' 7) Wt 113.4 kg (250 lb) SpO2 98% BMI 39.16 kg/m?? Gen: Pleasant male in no apparent distress, able to lay flat Heart: Regular rate and rhythm, s1/s2 of nl character and amplitude, no murmurs/rubs/gallops. JVP not elevated Pulm: Clear to auscultation bilaterally. Ext: Bilateral Abelino's Test demonstrates adequate reperfusion via the ulnar artery alone. Femoral arteries are with adequate upstroke and without overlying evidence of infection. DP/PT 2+ symmetrically. Neuro: sans focal deficit Current Outpatient Medications Medication Instructions ??? apixaban (ELIQUIS) 5 mg, Oral, 2 TIMES DAILY ??? aspirin 81 mg, Oral, DAILY ??? atorvastatin (LIPITOR) 20 mg, DAILY ??? glipiZIDE XL (GLUCOTROL XL) 10 mg, Oral, 2 Times Daily ??? ibuprofen (ADVIL) 600 mg, Oral, EVERY 6 HOURS ??? JANUMET 50-1,000 mg Tablet 1 tablet, Oral, 2 TIMES DAILY ??? lisinopriL (ZESTRIL) 10 mg, 2 TIMES DAILY ??? multivitamin (THERAGRAN) tablet 1 tablet, DAILY ??? ONE TOUCH DELICA 33 gauge Misc No dose, route, or frequency recorded. ??? ONETOUCH ULTRA TEST Strip No dose, route, or frequency recorded. Last 3 wbc, hgb, hct plt Recent Labs 12/19/21 1401 WBC 10.8* HGB 14.4 HCT 43.2 PLATELET 307 Last 3 Lytes Recent Labs 12/19/21 1401 NA 139 K 4.6 CL 98 CO2 25 BUN 11 CREATININE 1.06 Sedation evaluation: Mallampati class: II: tonsillar pillars are blocked by the tongue ASA: 2: Patient with mild systemic disease Previous Catheterization: The indications, expected benefits, and potential risks of heart catheterization were reviewed in detail with the patient. The potential for , heart attack, stroke, kidney failure, hemorrhage, allergic reaction, vascular complications and infection were reviewed in detail. The possibility of stenting and other percutaneous intervention, with associated risk, was reviewed. The possible need for emergent coronary artery bypass surgery was reviewed. Alternatives were discussed and the patient's questions were answered in full. Following this discussion, the patient consented to the procedure and signed a form attesting to this, which is in the chart. Faisal Miguel MD Interventional Social Media Developer, PGY-7 P: [id number] documented in this encounter Miscellaneous Notes * Brief Op Note - Praneeth Malhotra MD - 12/30/2021 8:42 AM EST Images from the original note were not included. [facility] [place] [address] [place] [address] CORONARY ANGIOGRAM AND PERCUTANEOUS CORONARY INTERVENTION REPORT Patient: Reg Salazar : 1955 MR number: [id number] Date of Service: 12/30/2021 Glue Plant Operator: Praneeth Malhotra MD Fellow: Faisal Miguel MD INDICATION: Reg Salazar is a 66 y.o. male with PMH of obesity, DM2, HTN, HLD, and history of rectal cancer s/p colostomy 2008 which was complicated by DVT (on chronic eliquis) who was referred by Dr. Mandeep Wheatley for progressively worsening exertional chest pain. An echo this month showed the LV was mildly dilated, EF 39%, with RWMA present, with severe LV apical hypokinesis. He is now undergoingcardiac catheterization to evaluate his unstable angina symptoms. PROCEDURES PERFORMED: ??? Left heart cath, coronary angiogram. PROCEDURE: ??? The risks, benefits and alternatives of the procedures and moderate sedation were explained to the patient and informed consent was obtained. The patient was brought to the supervisor cytogenetic laboratory and placed onthe table. Time out was performed. The planned puncture sites were prepped and draped in the usual sterile fashion. The patient was sedated for the procedure. Cardiac catheterization performed. ??? Rt Radial artery access. The puncture site was infiltrated with 2 % lidocaine. The vessel was accessed using the modified Seldinger technique, a wire was threaded into the vessel, and a 6 Fr glide sheath slender was advanced over the wire into the vessel. Vasodilators and heparin were given after access obtained. ??? Left coronary artery angiography. A 5 Fr Tala catheter was advanced to the aorta and positioned in the vessel ostia under fluoroscopic guidance. Angiography was performed in multiple projections. Intracoronary nitroglycerin was given in order to achieve maximal vasodilatation. ??? Right coronary artery angiography. A 5 Fr Tala catheter was advanced to the aorta and positioned in the vessel ostia under fluoroscopic guidance. Angiography was performed in multiple projections. Intracoronary nitroglycerin was given in order to achieve maximal vasodilatation. ??? Weight-based heparin was given for procedural anticoagulation to maintain an ACT of 250 secondsby Hemochron throughout the case. ??? Contrast given. 70 ml Optiray 350. ??? At the end of the case, a Trans Radial Band was applied to the right wrist and the arterial sheath was removed with hemostasis obtained. The patient was transported to the post-procedure holding area in stable condition. ??? There were no procedural complications. ??? I provided direct [id number]-gf-wsfv monitoring of conscious sedation which was administered by an independent trained nurse. RESULTS: Hemodynamics: Hemodynamic assessment demonstrates LVEDP of 14 mmHg. Coronary circulation: The coronary circulation is right dominant. There was severe distal LM+ 3VD with 3 CTOs: ?? Left main: Angiography showed a 80% distal LM lesion. ?? LAD: Angiography showed ostial LAD 70% lesion, then a mid LAD 100% DEPUTY GRAND JURY and severe diffuse disease of the apical LAD. ?? Circumflex: Angiography showed a 50% ostial lesion, then a 100% DEPUTY GRAND JURY of the OM1. ?? RCA: Angiography showed a 100% proximal DEPUTY GRAND JURY. The RPD and RPL fill by collaterals. SUMMARY AND THERAPEUTIC RECOMMENDATIONS: ??? Reg Salazar presents with unstable angina. He was found to have LM+ 3VD with 3 CTOs of the mid LAD, OM1 and proximal RCA. We will obtain a surgical consultation. ??? The case was reviewed and discussed with the patient and Dr. Mandeep Wheatley. ??? I was present during the entire procedure and personally dictated or confirmed the above report. Praneeth Malhotra MD MS FARIDA 12/30/2021 8:42 AM documented in this encounter Plan of Treatment Not on file documented as of this encounter Procedures Procedure Name Priority Date/Time Associated Diagnosis Comments POCT GLUCOSE Routine 12/30/2021 1:36 PM EST CARDIAC CATHETERIZATION Routine 12/30/19 12:03 PM EST Unstable angina POCT GLUCOSE Routine 12/30/2021 11:56 AM EST Cath Plmt Left Heart Cath & Arts W/Inj & Angio Img S&I ([id number]) 12/30/2021 11:18 AM EST Unstable angina POCT GLUCOSE Routine 12/30/2021 8:44 AM EST documented in this encounter Results * POCT Glucose (12/30/2021 1:36 PM EST) Glucose, POC 174 65 - 199 mg/dL [facility] Comment: Supplemental ranges: <140 mg/dL before meals <180 mg/dL all other times of the day Blood 12/30/2021 1:36 PM EST 12/30/2021 1:36 PM EST Praneeth Malhotra MD POINT OF CARE TEST O RDERABLES [facility] [place] [address] * CARDIAC CATHETERIZATION (12/30/2021 12:03 PM EST) Anatomical Region Laterality Modality Other Narrative 12/30/2021 1:04 PM EST ?[facility] ? Cardiac Catheterization/Intervention Report ? Patient Name: Salazar, Reg E. ? Procedure Date: 12/30/2021 ? A #: [id number] ? Primary Physician: Praneeth Malhotra ? Case #: [id number] ? File Name: [id number] ? Catheterization Order Number: [id number] ? [facility] ? Final Report [place], [place] ? Patient Name: ? Reg E. Salazar ?ID#: ?[id number] ? : ?1955 ? Procedure Date: ? December 30, 2021 ? Case #: ? [id number] ? Room: ? 1 ? Case Physician: ? Praneeth Malhotra M.D. ?Start: ?11:38 ?Fellow: ? Faisal Miguel M.D. ?Admission: ??12/30/2021 ? Referring Physician: ??Rachel Alison ? Procedures: ?* Coronary Angiography ?* Left Heart Catheterization ? History ?Reg Salazar is a 66 year old man. He has hypertension and a family ?history of coronary artery disease. The patient's smoking status is ?Former. He has hypercholesterolemia managed with lipid therapy. The ?patient has diabetes managed with oral medication. He also has a history ?of cancer. Prior to the initiation of this procedure, the patient was ?designated as ASA Class II. The CSHA clinical frailty scale is 3: ?Managing Well. ? Diagnostic Tests: ?Prior Coronary Angiography: ? LV ejection fraction within 6 months is 40%. ?Electrocardiography: ? EKG was assessed by ECG. EKG was Abnormal. EKG showed other ? abnormality. ?Medications Prior to Procedure: ? Angiotensin Converting Enzyme Inhibitor, Aspirin and Statin. ? Indications for Diagnostic Cath: ?The priority of the diagnostic procedure was Elective. The indication for ?the supervisor cytogenetic laboratory visit is suspected CAD and LV dysfunction. Chest pain ?symptom assessment was: Typical Angina. ? Technique: ?A 6 SLFr sheath was inserted in the right radial artery utilizing the ?Seldinger technique. The left coronary artery was injected utilizing a ?5Fr TALA RADIAL catheter. A 5Fr TALA RADIAL catheter was used to inject ?the right coronary artery. Left ventricular pressure was performed ?utilizing a 5Fr TALA RADIAL catheter. 6,000 units of heparin were ?administered. A total of 100cc of Omnipaque were opened, 50cc of ?Omnipaque were administered and 50cc of Omnipaque were wasted. Radiation: ?Fluoro time was 2.9 minutes, dose area product was 42,400 mGYcm2 and air ?kerma was 611 mGY. See the case log for additional details. ?The patient received the following medications prior to and during the ?procedure: ? Unfractionated Heparin. ? Hemodynamics: ?Left Heart Pressures ? Resting: ? Syst Diast ? EDP ?a ?v ? m ?Ao 109 ?? 63 ?84 ?LV 107 ? 14 ? Coronary Angiography: ?Dominance: Right ?Left Main ? There was an 80% single discrete stenosis of the distal segment of ? the left main artery. ??The left main was large. ?Left Anterior Descending ? There was a 70% single discrete stenosis of the ostial segment of ? the left anterior descending artery (LAD). ??The LAD was large. ??The ? mid segment of the LAD had a single discrete total occlusion. ? Distal flow was via the grindstone vessel and bridging collaterals. ? There also was severe diffuse (>=75% stenosis) disease of the distal ? segment of the LAD. ?Left Circumflex ? There was a 50% single discrete stenosis of the ostial segment of ? the left circumflex artery (LCX). ??The LCX was large. ? There was a single discrete total occlusion of the proximal segment ? of the first obtuse marginal branch (OM1) of the LCX. ??The OM1 was ? moderate in size. ??Distal flow was via the grindstone vessel and ? collaterals from the LAD. ?Right Coronary Artery ? There was a single discrete total occlusion of the proximal segment ? of the right coronary artery (RCA). ??The RCA was large. ??Distal flow ? was via the grindstone vessel, collaterals from the LAD as well as ? collaterals from the LCX. ? Vascular Access: ?Vascular Access Management: ? Mechanical Compression of the right radial artery access site was ? performed. ? Conclusions: ?* Significant stenosis of the left main ?* Three vessel coronary artery disease (LAD, LCX and RCA) ? Complications/Events: ?The patient had no complications during these procedures. ? Comments: ?SUMMARY AND THERAPEUTIC RECOMMENDATIONS: ?Reg Handley Marie presents with unstable angina. He was found to have LM+ ?3VD with 3 CTOs of the mid LAD, OM1 and proximal RCA. We will obtain a ?surgical consultation. ?The case was reviewed and discussed with the patient and Dr. Mandeep Wheatley. ?The attending physician was present for the entire procedure. ?Dr. Praneeth Malhotra M.D. was present during the moderate sedation intraservice ?time as documented by the sedation nurse. ??Case time = 00:20. ?Dr. Praneeth Malhotra M.D. performed the coronary angiography and left heart ?catheterization. ? Praneeth Malhotra M.D. ? Electronically Signed by: Praneeth Malhotra M.D. ? Report Finalized: 12/30/2021 ??12:57 ? Praneeth Owen Malhotra MD CARDIAC CATH ORDERAB LES * POCT Glucose (12/30/2021 11:56 AM EST) Glucose, POC 147 65 - 199 mg/dL [facility] Comment: Supplemental ranges: <140 mg/dL before meals <180 mg/dL all other times of the day Blood 12/30/2021 11:5 6 AM EST 12/30/2021 11:56 AM EST Praneeth Malhotra MD POINT OF CARE TEST O ZACH Performing Organization Address City/[facility] Co de Phone Number [facility] [place] [address] * POCT Glucose (12/30/2021 8:44 AM EST) Glucose, POC 170 65 - 199 mg/dL [facility] Comment: Supplemental ranges: <140 mg/dL before meals <180 mg/dL all other times of the day Blood 12/30/2021 8:44 AM EST 12/30/2021 8:44 AM EST Praneeth Malhotra MD POINT OF CARE TEST O ZACH Performing Organization Address [facility] Co de Phone Number [facility] [place] [address] documented in this encounter Visit Diagnoses Diagnosis Unstable angina Intermediate coronary syndrome Unstable angina Intermediate coronary syndrome documented in this encounter Administered Medications Inactive Administered Medications - up to 3 most recent administrations Medication Order MAR Action Action Date Dose Rate Site fentaNYL (pf) (50 mcg/mL) multi-dose injection ONCE PRN, Starting on Thu12/30/21 at 1134, Until Thu12/30/21 at 1357, Intra-Operative (Intra-Procedure), Routine Given 12/30/2021 11:34 AM EST 25 mcg heparin (porcine) (1,000 units/mL) injection ONCE PRN, Starting on Thu12/30/21 at 1142, Until Thu12/30/21 at 1357, Cath (Intra-Procedure), Routine Given 12/30/2021 11:42 AM EST 6,000 Units iohexoL (Omnipaque) (350 mg/mL) solution ONCE PRN, Starting on Thu12/30/21 at 1154, Until Thu12/30/21 at 1357, Cath (Intra-Procedure), Routine Given 12/30/2021 11:54 AM EST 50 mLs midazolam (pf) (Versed) (1 mg/mL) multi-dose injection ONCE PRN, Starting on Thu12/30/21 at 1134, Until Thu12/30/21 at 1357, Cath (Intra-Procedure), Routine Given 12/30/2021 11:34 AM EST 1 mg nitroGLYcerin 100 mcg/mL intracoronary dilution ONCE PRN, Starting on Thu12/30/21 at 1139, Until Thu12/30/21 at 1357, Cath (Intra-Procedure), Routine Given 12/30/2021 11:39 AM EST 150 mcg sodium chloride 0.9% infusion 200 mL/hr, Intravenous, CONTINUOUS, Starting on Thu12/30/21 at 0900, Until Thu12/30/21 at 1357, Cath (Day of Procedure) New Bag 12/30/2021 9:59 AM EST 200 mL/hr 200 mL/hr verapamiL (Isoptin) (2.5 mg/mL) injection ONCE PRN, Starting on Thu12/30/21 at 1139, Until Thu12/30/21 at 1357, Administer over 2 Minutes, Cath (Intra-Procedure) Given 12/30/2021 11:39 AM EST 2.5 mg documented in this encounter Active and Recently Administered Medications Times are shown in EST. Continuous Medication Order 12/28/2021 12/29/2021 12/30/2021 sodium chloride 0.9% infusion (CANCELED) 200 mL/hr, Intravenous, CONTINUOUS, Starting on Thu12/30/21 at 0900, Until Thu12/30/21 at 1357, Cath (Day of Procedure) 0959 (New Bag - Prov ider: Tran Sanchez RN) PRN Medication Order 12/28/2021 12/29/2021 12/30/2021 fentaNYL (pf) (50 mcg/mL) multi-dose injection (CANCELED) ONCE PRN, Starting on Thu12/30/21 at 1134, Until Thu12/30/21 at 1357, Intra-Operative (Intra-Procedure), Routine 1134 (Given - Provid er: Diana Vilchis RN) heparin (porcine) (1,000 units/mL) injection (CANCELED) ONCE PRN, Starting on Thu12/30/21 at 1142, Until Thu12/30/21 at 1357, Cath (Intra-Procedure), Routine 1142 (Given - Provid er: Diana Vilchis RN) iohexoL (Omnipaque) (350 mg/mL) solution (CANCELED) ONCE PRN, Starting on Thu12/30/21 at 1154, Until Thu12/30/21 at 1357, Cath (Intra-Procedure), Routine 1154 (Given - Provid er: Faisal Miguel MD) midazolam (pf) (Versed) (1 mg/mL) multi-dose injection (CANCELED) ONCE PRN, Starting on Thu12/30/21 at 1134, Until Thu12/30/21 at 1357, Cath (Intra-Procedure), Routine 1134 (Given - Provid er: Diana Vilchis RN) nitroGLYcerin 100 mcg/mL intracoronary dilution (CANCELED) ONCE PRN, Starting on Thu12/30/21 at 1139, Until Thu12/30/21 at 1357, Cath (Intra-Procedure), Routine 1139 (Given - Provid er: Faisal Miguel MD) verapamiL (Isoptin) (2.5 mg/mL) injection (CANCELED) ONCE PRN, Starting on Thu12/30/21 at 1139, Until Thu12/30/21 at 1357, Administer over 2 Minutes, Cath (Intra-Procedure) 1139 (Given - Provid er: Faisal Miguel MD) documented in this encounter Care Teams Laborer [facility] Relationship Specialty Start Date End Date Randa Rosas APRN [address] [place] [id number] PCP - General 12/29/12 04/16/22 documented as of this encounter
--- OUTSIDE RECORDS SUMMARY | 2024-11-18 16:55 | XMS_ITS | Encounter Summary ---
Author Organization Count Includes [facility] Address [facility] [place] [address] Care Team Providers Care Pharmacist'S Aide Name Role Phone Randa Rosas APRN Primary Care Provider [phone]- [phone] Encounter Details Date Type Department Care Team (Late st Contact Info) Description 12/23/2021 Telephone Cardiology at [address] [phone] Sohail Hightower PA [facility] [address] Social History Tobacco Use Types Packs/Day Years [...] encounter Miscellaneous Notes * Telephone Encounter - Sohail Hightower PA - 12/23/2021 4:20 PM EST Images from the original note were not included. 12/23/2021 Reg Salazar Initial Contact Date: 12/23/2021 Initial contact time: 4:20 PM Called and spoke with patient regarding echocardiogram results from 12/20/21: Echocardiogram 12/20/21: SUMMARY: 1. The left ventricle is mildly dilated. [...] disease. 4. No prior TTE for comparison. Discussed findings of reduced ejection fraction; no comparison data available. Patient states he has been chest pain free since his visit. He continues to say that he has avoided his trigger activity(snow blowing) since our discussion in clinic last week. [facility] currently scheduled for 12/30/[address] Malhotra. Advised to continue current medications, including his aspirin, lisinopril, and atorvastatin. Patient verbalized understanding. Sohail Hightower PA-C Pager [phone] 12/23/2021 documented in this encounter Plan of Treatment Not on file documented as of this encounter Visit Diagnoses Not on filedocumented in this encounter Care Teams Pharmacist'S Aide Relationship Specialty Start Date End Date Randa Rosas APRN [address] [place] [phone] PCP - General 12/29/12 04/16/22 documented as of this encounter
--- OUTSIDE RECORDS SUMMARY | 2024-11-18 16:55 | XMS_ITS | Encounter Summary ---
Author Organization [facility] [place] [address] Care Team Providers Care Estimator Jewelry Name Role Phone Radna Rosas VALENTIN Primary Care Provider [phone]- [phone] Reason for Visit * Reason Comments Follow-up attn to colostomy Encounter Details Date Type Department Care Team (Late st Contact Info) Description 06/24/2019 11:00 AM EDT [place] [phone] Attention to colostomy Social History Tobacco Use Types Packs/Day Years [...] Sign Reading Time Taken Comments Blood Pressure 125/66 06/24/2019 11:16 AM EDT Pulse 85 06/24/2019 11:16 AM EDT Temperature 36.6 ??C (97.9 ??F) 06/24/2019 11:16 AM E DT Respiratory Rate - - Oxygen Saturation 98% 06/24/2019 11:16 AM EDT Inhaled Oxygen Concentration - - Weight - - Height - - Body Mass Index - - documented in this encounter Progress Notes * Radha Woods RN - 06/24/2019 11:00 AM EDT Pt RTC with his SAnnabelle Ovalles for a 6 month f/u. He had an APR with permanent colostomy [place] [address] Hills. He was last seen in the clinic by ROAY Ferrell on 12/16/18. Charlette is with him today. He continues to wear the Coloplast #[id number] with an adapt ring, paste, & barrier strips. His stoma is red, moist & recessed. His peristomal skin is healthy & intact, but he routinely uses stoma powder & skin prep. He does have a significant crease at 7:00 & a dip underneath his stoma; he cuts his pattern larger than both to obtain a good seal. He has been changing the pouch twice a week. His stool is thick & brown today. He has not questions, concerns, or issues to address today. Will plan to f/u with him in 1 year. documented in this encounter Plan of Treatment Not on file documented as of this encounter Visit Diagnoses Diagnosis Attention to colostomy documented in this encounter Care Teams Estimator Jewelry Relationship Specialty Start Date End Date Randa Rosas APRN [address] [place] [phone] PCP - General 12/29/12 04/16/22 documented as of this encounter
--- OUTSIDE RECORDS SUMMARY | 2024-11-18 16:55 | XMS_ITS | Encounter Summary ---
Author Organization [facility] Address [facility] [place] [address] Care Team Providers Care Flight Operations Inspector Name Role Phone aRnda Rosas APRN Primary Care Provider [phone] Reason for Referral * Diagnostic Test (Routine) - Closed Specialty Diagnoses / Procedures Referred By Contac t Referred To Contact Cardiology Diagnoses Unstable angina Procedures Echocardiogram Transthoracic([facility]) Sohail Hightower, PA [facility] [place] [address] [facility] [place] [address] Referral ID Status Reason Start Date Expiration Date V isits Requested Visits Authorized [id number] Closed Specialty Service Requested 12/19/2021 12/19/2022 1 1 Reason for Visit * Reason Comments Chest Pain * Consultation (JASON) - Closed Specialty Diagnoses / Procedures Referred By Contac t Referred To Contact Cardiology Diagnoses Chest pain, unspecified increasing CPOE Randa Rosas APRN [address] [place] [address] [facility] Cardiology [address] [place] [phone] Referral ID Status Reason Start Date Expiration Date V isits Requested Visits Authorized [id number] Closed Consult, [facility] PCP Updated and/or Approved 12/16/2021 12/16/2022 6 6 Encounter Details Date Type Department Care Team (Late st Contact Info) Description 12/19/2021 1:00 PM EST Office Visit Cardiology at [address] [place] [address] Yoandy Wheatley MD [facility] [address] [place] [address] Chest pain, unspecified type; Hypertension, unspecified type; Obesity (BMI 35.0-39.9 without comorbidity); Unstable angina Social History Tobacco Use Types [...] Sign Reading Time Taken Comments Blood Pressure 108/67 12/19/2021 12:56 PM EST Pulse 76 12/19/2021 12:56 PM EST Temperature - - Respiratory Rate - - Oxygen Saturation 97% 12/19/2021 12:56 PM EST Inhaled Oxygen Concentration - - Weight 117.9 kg (260 lb) 12/19/2021 12:56 PM EST Height 170.2 cm (5' 7) 12/19/2021 12:56 PM EST Body Mass Index 40.72 12/19/2021 12:56 PM EST documented in this encounter Progress Notes * Yoandy Wheatley MD - 12/19/2021 1:00 PM EST Images from the original note were not included. [facility] [place] [address] CARDIOVASCULAR MEDICINE OUTPATIENT VISIT Adrien Cheung [id number] 12/19/2021 REFERRING PROVIDER: Randa Rosas Reason for consult: chest pain with exertion HISTORY OF PRESENT ILLNESS: Adrien Cheung is a 66 y.o. male with PMH of obesity, DM2, HTN, HLD, and history of rectal cancer s/p colostomy 2008 which was complicated by DVT (on chronic eliquis) who was referred by his primary care provider for progressively worsening exertional chest pain. INTERVAL HISTORY: No ED visits or hospitalizations. TODAY: Adrien Cheung was referred to cardiology for worsening exertional chest pain. States that he wanted to be more active after fdc so he started walking outside more. He did have some chest painacross his chest for 3-4 min which would go away with rest. He states that he had the same sensation when he was doing some snow blowing and carrying some wood (heats with wood). Started delegating work around his house to his son, due to concerns surrounding his chest pain. He recently was given aRx for nitro SL. Has a little sensation of shortness of breath at the time which also goes away. Noassociated diaphoresis or nausea. Ex-smoker (quit 25 years ago, smoker for 20 years, 1ppd). On medic ation for HTN and hyperlidemia. Diagnosed with diabetes about 17 years ago. He has only been on oral meds. A1C has been high (thinks it was 8 last time). No PND, orthopnea. He gets some mild edema. Had a history of DVT (about 9 years ago. Has a history of rectal CA and ostomy - cured) and wears a compression stocking. Has remained on apixaban since then. No family history of CAD. Brother has Parkinson's. Mother of lung CA. Father had diabetes. Social: Lives in [facility] with his girlfriend. Just retired in July 2021 (worked in a [employer]). He enjoys hunting, fishing. REVIEW OF SYSTEMS: Review of Systems Constitutional: Negative for diaphoresis, fatigue, fever and unexpected weight change. Respiratory: Positive for shortness of breath (during chest pain episodes). Negative for apnea and wheezing. Cardiovascular: Positive for chest pain (Exertional) and leg swelling (Unilateral, right sided since DVT ~9yrs ago). Negative for palpitations. Gastrointestinal: Negative for constipation, diarrhea, nausea and vomiting. Neurological: Negative for dizziness, syncope, speech difficulty and light-headedness. All other systems reviewed and are negative. PAST MEDICAL HISTORY: Past Medical History: Diagnosis Date ??? DM (diabetes mellitus) type 2 ??? ED (erectile dysfunction) ??? Gout ??? HTN (hypertension) ??? Hypercoagulable state Protein S deficiency ??? Hyperlipemia ??? Obesity ??? 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 Rectal cancer SOCIAL HISTORY: Social History Tobacco Use ??? Smoking status: Former Smoker Quit date: 11/30/1996 Years since quittin.0 ??? Smokeless tobacco: Never Used ??? Tobacco comment: smokes marij Substance Use Topics ??? Alcohol use: Yes Comment: seldom MEDICATIONS: Outpatient Medications Marked as Taking for the 12/19/21 encounter (Office Visit) with Yoandy Wheatley MD Medication Sig Dispense Refill ??? Dupixent Syringe 300 mg/2 mL Syringe ??? aspirin 81 mg Tablet, Chewable Take [...] hr tablet Take 10 mg by mouth daily. ??? multivitamin (THERAGRAN) tablet Take 1 tablet by mouth daily. Current Facility-Administered Medications for the 12/19/21 encounter (Office Visit) with Yoandy Wheatley MD Medication Dose Route Frequency Provider Last Rate Last Admin ??? diatrizoate meglumine (HYPAQUE, CYSTOGRAFIN) urethral solution 300 mL 300 mL Urethral Once PRN Junie Dominguez MD ALLERGIES: Penicillins PHYSICAL EXAMINATION: Vital Signs: BP 108/67 (BP Location (NBP): Right arm, Patient Position: Sitting, BP Cuff Sizes: Large Adult (32-43 cm)) Pulse 76 Ht 170.2 cm (5' 7) Wt 117.9 kg (260 lb) SpO2 97% BMI 40.72 kg/m?? Exam Details: General: Pleasant male in no acute distress. HEENT: No scleral icterus, moist mucous membranes. Neck: JVP <8 cm of water. No carotid bruits appreciated. Heart: Regular rate and rhythm, normal S1/S2, no murmurs/rubs/gallops appreciated, PMI non-displaced. Lungs: Clear to ascultation bilaterally Abdomen: Soft, non-tender, non-distended, normoactive bowel sounds noted. Extremities: Unilateral, right sided lower extremity edema noted, flesh-colored compression stocking worn from foot up to the knee. Left lower extremity without remarkable edema. Skin: Warm and well perfused. No visible lesions or rashes. Neuro: No gross abnormalities noted. Psych: Alert and oriented 3 x, normal affect DATA PERSONALLY REVIEWED: Last 3 wbc, hgb, hct plt No results for input(s): WBC, HGB, HCT, PLATELET in the last 7068 hours. Last 3 Lytes No results for input(s): NA, K, CL, CO2, BUN, CREATININE in the last 7068 hours. Lipid Panel Results for ADRIEN CHEUNG ( ) as of 12/19/2021 16:45 Ref. Range 12/19/2021 14:01 WBC Latest Ref Range: 4.0 - 9.5 x10(3)/mcL 10.8 (H) RBC Latest Ref Range: 4.58 - 5.54 x10(6)/mcL 4.73 Hemoglobin Latest Ref Range: 13.7 - 16.5 g/dL 14.4 Hematocrit Latest Ref Range: 40.5 - 48.5 % 43.2 MCV Latest Ref Range: 82.9 - 93.1 fL 91.3 MCH Latest Ref Range: 27.5 - 32.1 pg 30.4 MCHC Latest Ref Range: 32.0 - 35.7 g/dL 33.3 RDWSD Latest Ref Range: 36.0 - 45.0 fL 42.4 RDWCV Latest Ref Range: 11.4 - 13.8 % 12.7 Platelets Latest Ref Range: 145 - 357 x10(3)/mcL 307 Results for ADRIEN CHEUNG ( ) as of 12/19/2021 16:45 Ref. Range 12/19/2021 14:01 Sodium Latest Ref Range: 135 - 145 mmol/L 139 Potassium Latest Ref Range: 3.5 - 5.0 mmol/L 4.6 Chloride Latest Ref Range: 98 - 107 mmol/L 98 CO2 Latest Ref Range: 22 - 31 mmol/L 25 Anion Gap Latest Ref Range: 5 - 15 mmol/L 16 (H) BUN Latest Ref Range: 10 - 20 mg/dL 11 Creatinine Latest Ref Range: 0.80 - 1.50 mg/dL 1.06 Estimated GFR Latest Ref Range: >=60 mL/min/1.73 m?? 73 Calcium Latest Ref Range: 8.5 - 10.5 mg/dL 9.4 Glucose Lvl Latest Ref Range: 65 - 199 mg/dL 135 Troponin-T Latest Ref Range: 0.00 - 0.00 ng/mL <0.01 Results for ADRIEN CHEUNG ( ) as of 12/19/2021 16:45 Ref. Range 12/19/2021 14:01 PT Latest Ref Range: 9.4 - 12.5 sec 12.5 INR Unknown 1.1 EKG 12/19/2021: Sinus rhythm with non-specific ST-T wave abnormalities ASSESSMENT AND PLAN: 66 y.o. male of obesity, DM2, HTN, [...] ischemic evaluation via catheterization at this time. #Unstable Angina - Left heart catheterization ordered. [...] contact me with any questions or concerns. Sohail Hightower PA-C [facility] [place] [address] Cardiology Staff - Office note addendum This patient was seen and examined in the cardiology clinic with Sohail Hightower PA-C. I agree withhis assessment and plan which we discussed. Watkins points of medical decision making as follows: This is a pleasant 66 year old male who recently retired. He wanted to be more active with walking after his fdc but has noticed chest pain with exertion getting worse over the past few months. He has no known CAD. He has multiple risk factors as follows: obesity (257 lbs, BMI 40), diabetes (NIDDM), HTN, hyperlipidemia, remote smoker, possible family history of CAD (mother of lung CA, but may have required cardiac stent). He has had multiple episodes of chest pain with exertion relieved with rest. He was only recently given a Rx for SL NTG and low dose Bblocker. The chest pain comes on when he walks up hill, carries wood (heats his home with wood), and snow blowing. The pain goesaway with rest. We discussed the pros and cons of further evaluation with a noninvasive stress testvs cardiac catheterization. Given his multiple risk factors and concerning story for unstable angina, going direct to cardiac cath seemed reasonable and the patient agreed. We have made arrangements for this through same day surgery on Dec 30. He will hold his Eliquis for 48 hours prior to the procedure (remote history of DVT). Precath labs to be obtained today. Other details as above. Total time for the visit estimated at 45 min. documented in this encounter Plan of Treatment Not on file documented as of this encounter Procedures Procedure Name Priority Date/Time Associated Diagnosis Comments EKG 12-LEAD Routine 12/19/2021 1:04 PM EST Chest pain, unspecified type documented in this encounter Results * ECHO COMPLETE W CONTRAST (12/20/2021 9:57 AM EST) EF 39 HEARTLAB SYSTEM Anatomical Region Laterality Modality Other 12/20/2021 Narrative 12/20/2021 10:33 AM EST Procedure: ?Transthoracic Echocardiogram Patient: ?SKYE Handley ?(Age): 1955(66y) Med Rec#: ? [id number] ?Sex: ?M ? Site Loc: ? DH ?Ht / Wt: ??170(cm)/118(kg) Pt. Loc: ?Echo Lab ?BSA: ?2.26 Study Date: ?? 12/20/2021 ?Pt. Type: Outpatient Tape: ? Referring: ELIAN Reading: Ying Germain ([id number]) Supervisor Specialty Plant: Abe Corbin RDCS, FASE Diagnosis: *Unstable angina (I20.0) Rhythm: ? Sinus BP: ? 117/63 HR: ? 81 SUMMARY: 1. The left ventricle is mildly [...] disease. 4. No prior TTE for comparison. Findings ? : Study Quality: ? Technically limited Left Ventricle: ? The left ventricle is mildly dilated. ?Mild concentric left ventricular hypertrophy is observed. ?Global left ventricular systolic function is moderately reduced. ?The quantitative left ventricular ejection fraction by biplane Navarro's method is 39%. ?There are left ventricular segmental wall motion abnormalities present, as shown in the diagram below. Severe LV apical hypokinesis. The rest of the LV segments is mildly hypokinetic. ?The left ventricular diastolic filling pattern is consistent with impaired LV relaxation. ?Doppler assessment is consistent with normal left sided filling pressure. Left Atrium: ? The left atrium is normal in size. Right Ventricle: ? The right ventricle is normal in size. ?Right ventricular global systolic function is normal. ?The estimated pulmonary artery systolic pressure is 33.2635294572584 mmHg. ?The estimated right atrial pressure is 8 mmHg. Right Atrium: ? The right atrium is normal in size. Aortic Valve: ? The aortic valve is tricuspid. ?The aortic valve leaflets are mildly thickened. ?There is no evidence of aortic valve stenosis. ?There is a trace of aortic regurgitation present. Mitral Valve: ? The mitral valve leaflets appear normal. ?There is posterior mitral annular calcification. ?There is mild (1+/4+) mitral regurgitation present. Tricuspid Valve: ? The tricuspid valve leaflets are morphologically normal. ?There is trace tricuspid regurgitation present. Pulmonic Valve: ? The pulmonic valve appears normal. Pericardium: ? There is no pericardial effusion. Aorta: ? The aortic root is normal in size. ?The ascending aorta is normal in size. Pulmonary Artery: ? The main pulmonary artery appears normal. Venous: ? The inferior vena cava is poorly visualized. Misc: ? There is no hemodynamically significant valve disease. ?Two-dimensional echo, spectral Doppler and color Doppler performed. ?Optison contrast (one 3 ml vial) was used to enhance endocardial definition. Excess contrast was discarded. Chambers 2D ?Value ?Units (Range) ? IVSd (2D) ? 1.34 ? cm ? LVPWd (2D) ?1.2 ?cm ? IVS:LVPW ratio (2D) 1.12 ? ratio ? RWT (2D) ?0.41 ? ratio ? RWT PW (2D) ? 0.38 ? ratio ? LVIDd (2D) ?6.22 ? cm ? LVIDs (2D) ?4.51 ? cm ? LVIDd (2D) index ?2.76 ? cm/m2 ? LVIDs (2D) index ?2 ?cm/m2 ? LV FS (2D) ?27.48 ?% ? EF Teichholz (2D) ?? 52.43 ?% ? Ao root diameter (2D3.5 ?cm (2.1 - 3.6) ? Ascending Ao ?3.5 ?cm (2 - 3.5) ? Volumes/Mass ?Value ?Units (Range) ? LA Area 4 CH ?22 ? cm2 (<21) ? LA ESV BP (A/L) inde33 ? ml/m2 ? RA AREA 4CH ? 17 ? cm2 ? LA ESV BP (MOD) inde31 ? ml/m2 ? LV ESV SP 4CH (MOD) 95.66 ?ml ? LV ESV SP 2CH (MOD) 121.7 ?ml ? LV EDV BP ? 187.54 ? ml ? LV ESV BP ? 114.47 ? ml ? LV EDV BP index ? 83 ? ml/m2 ? LV ESV BP index ? 50.66 ?ml/m2 ? BP EF (MOD) ? 38.96 ?% ? LV mass (2D) ?358.53 ? g ? LV mass (2D) index ??158.68 ? g/m2 ? Diastolic/Systolic Function ?Value ?Units (Range) ? MV E-wave Vmax ?0.86 ? m/sec ? MV deceleration [id number] ?msec ? MV A-wave Vmax ?1.19 ? m/sec ? MV E:A ratio ?0.73 ? ratio ? LV septal e' Vmax ?? 0.07 ? m/sec ? LV lateral e' Vmax ??0.09 ? m/sec ? LV average e' Vmax ??0.08 ? m/sec ? LV E:e' septal ratio12.31 ?ratio ? LV E:e' lateral rati9.58 ? ratio ? LV average E:e' rati10.77 ?ratio ? Aortic Valve ?Value ?Units (Range) ? AV Vmax ? 1.22 ? m/sec ? AV peak gradient ?5.95 ? mmHg ? LVOT diameter ? 2.07 ? cm ? LVOT Vmax ? 1.15 ? m/sec ? LVOT peak gradient ??5.26 ? mmHg ? DOI (Vmax) ?0.94 ? ratio ? SHARON (continuity Vmax3.15 ? cm2 ? SHARON (continuity Vmax1.39 ? cm2/m2 ? Tricuspid Valve ?Value ?Units (Range) ? TR Vmax ? 2.51 ? m/sec ? TR peak gradient ?25.3 ? mmHg ? RAP ? 8 ?mmHg ? RVSP ?33.3 ? mmHg ? This report has been electronically signed by: Ying Germain MD ? 12/20/2021 10:32:30 Images reviewed and interpretation verified [facility] Cardiac Ultrasound Laboratory Procedure Note Ying Germain MD - 12/20/2021 Procedure: Transthoracic Echocardiogram Patient: SKYE REMY(Age): 1955(66y) Med Rec#: [id number] Sex: M Site Loc: [facility] Ht / Wt: 170(cm)/118(kg) Pt. Loc: Echo Lab BSA: 2.26 Study Date: 12/20/2021 Pt. Type: Outpatient Tape: Referring: ELIAN Reading: Ying Germain ([id number]) Supervisor Specialty Plant: Abe Corbin RDCS, FASE Diagnosis: *Unstable angina (I20.0) Rhythm: Sinus BP: 117/63 HR: 81 SUMMARY: 1. The left ventricle is mildly [...] disease. 4. No prior TTE for comparison. Findings : Study Quality: Technically limited Left Ventricle: The left ventricle is mildly dilated. Mild concentric left ventricular hypertrophy is observed. Global left ventricular systolic function is moderately reduced. The quantitative left ventricular ejection fraction by biplane Navarro's method is 39%. There are left ventricular segmental wall motion abnormalities present, as shown in the diagram below. Severe LV apical hypokinesis. The rest of the LV segments is mildly hypokinetic. The left ventricular diastolic filling pattern is consistent with impaired LV relaxation. Doppler assessment is consistent with normal left sided filling pressure. Left Atrium: The left atrium is normal in size. Right Ventricle: The right ventricle is normal in size. Right ventricular global systolic function is normal. The estimated pulmonary artery systolic pressure is 33.5348402013849 mmHg. The estimated right atrial pressure is 8 mmHg. Right Atrium: The right atrium is normal in size. Aortic Valve: The aortic valve is tricuspid. The aortic valve leaflets are mildly thickened. There is no evidence of aortic valve stenosis. There is a trace of aortic regurgitation present. Mitral Valve: The mitral valve leaflets appear normal. There is posterior mitral annular calcification. There is mild (1+/4+) mitral regurgitation present. Tricuspid Valve: The tricuspid valve leaflets are morphologically normal. There is trace tricuspid regurgitation present. Pulmonic Valve: The pulmonic valve appears normal. Pericardium: There is no pericardial effusion. Aorta: The aortic root is normal in size. The ascending aorta is normal in size. Pulmonary Artery: The main pulmonary artery appears normal. Venous: The inferior vena cava is poorly visualized. Misc: There is no hemodynamically significant valve disease. Two-dimensional echo, spectral Doppler and color Doppler performed. Optison contrast (one 3 ml vial) was used to enhance endocardial definition. Excess contrast was discarded. Chambers 2D Value Units (Range) IVSd (2D) 1.34 cm LVPWd (2D) 1.2 cm IVS:LVPW ratio (2D) 1.12 ratio RWT (2D) 0.41 ratio RWT PW (2D) 0.38 ratio LVIDd (2D) 6.22 cm LVIDs (2D) 4.51 cm LVIDd (2D) index 2.76 cm/m2 LVIDs (2D) index 2 cm/m2 LV FS (2D) 27.48 % EF Teichholz (2D) 52.43 % Ao root diameter (2D3.5 cm (2.1 - 3.6) Ascending Ao 3.5 cm (2 - 3.5) Volumes/Mass Value Units (Range) LA Area 4 CH 22 cm2 (<21) LA ESV BP (A/L) inde33 ml/m2 RA AREA 4CH 17 cm2 LA ESV BP (MOD) inde31 ml/m2 LV ESV SP 4CH (MOD) 95.66 ml LV ESV SP 2CH (MOD) 121.7 ml LV EDV BP 187.54 ml LV ESV BP 114.47 ml LV EDV BP index 83 ml/m2 LV ESV BP index 50.66 ml/m2 BP EF (MOD) 38.96 % LV mass (2D) 358.53 g LV mass (2D) index 158.68 g/m2 Diastolic/Systolic Function Value Units (Range) MV E-wave Vmax 0.86 m/sec MV deceleration hxim594.9 msec MV A-wave Vmax 1.19 m/sec MV E:A ratio 0.73 ratio LV septal e' Vmax 0.07 m/sec LV lateral e' Vmax 0.09 m/sec LV average e' Vmax 0.08 m/sec LV E:e' septal ratio12.31 ratio LV E:e' lateral rati9.58 ratio LV average E:e' rati10.77 ratio Aortic Valve Value Units (Range) AV Vmax 1.22 m/sec AV peak gradient 5.95 mmHg LVOT diameter 2.07 cm LVOT Vmax 1.15 m/sec LVOT peak gradient 5.26 mmHg DOI (Vmax) 0.94 ratio SHARON (continuity Vmax3.15 cm2 SHARON (continuity Vmax1.39 cm2/m2 Tricuspid Valve Value Units (Range) TR Vmax 2.51 m/sec TR peak gradient 25.3 mmHg RAP 8 mmHg RVSP 33.3 mmHg This report has been electronically signed by: Ying Germain MD 12/20/2021 10:32:30 Images reviewed and interpretation verified [facility] Cardiac Ultrasound Laboratory Yoandy Wheatley MD ECHO ORDERABLES * Troponin (12/19/2021 2:01 PM EST) Pathologist [facility] Troponin-T <0.01 0.00 - 0.00 ng/mL [facility] Comment: The 99th percentile for Troponin T is less than 0.01 ng/mL, any detectable cTnT concentration using this assay should be considered elevated. According to the third universal definition of myocardial infarction the following criteria with a clinical presentation consistent with acute myocardial ischemia meets the diagnosis for a myocardial infarction ([place]). Detection of a rise and/or fall of cTnT, with at least one value greater than the 99th percentile (> or = 0.01) and with at least one of the following ?? Symptoms of ischemia ?? New or presumed new significant HR-uklxypl-C wave (ST-T) changes or new left bundle [...] additional sample may be indicated. Reference: Third Bowie Definition of Myocardial Infarction. Journal of the [place] [employer] 2012;60:1581-98 Blood 12/19/2021 2:01 PM EST 12/19/2021 2:07 PM EST Narrative Resulting Agency Comment Spec In Lab Yoandy Wheatley MD CHEMISTRY ORDERABLE S [facility] [place] [address] [place] [address] * Prothrombin Time (12/19/2021 2:01 PM EST) Pathologist [facility] Prothrombin Time 12.5 9.4 - 12.5 sec [facility] International Normalization Ratio 1.1 [facility] Comment: An INR <2.0 indicates [...] Lab Yoandy Wheatley MD HEMATOLOGY ORDERABL ES [facility] [place] [address] * (ABNORMAL) Basic Metabolic Panel (non-fasting) (12/19/2021 2:01 PM EST) Glucose 135 65 - 199 mg/dL [facility] Comment:Diabetes: >=200 mg/d L plus symptoms Blood Urea Nitrogen 11 10 - 20 mg/dL [facility] Creatinine 1.06 0.80 - 1.50 mg/dL [facility] Sodium 139 135 - 145 mmol/L [facility] Potassium 4.6 3.5 - 5.0 mmol/L [facility] Comment: Please note: ??Patients with WBC >100,000 may have falsely elevated Potassium levels. ??For accurate Potassium quantification in these patients send serum separator tube (gold top) for subsequent determinations. ??Contact the Clinical Chemistry Laboratory if there are any questions. Chloride 98 98 - 107 mmol/L [facility] Carbon Dioxide 25 22 - 31 mmol/L [facility] Anion Gap 16(H) 5 - 15 mmol/L [facility] Calcium 9.4 8.5 - 10.5 mg/dL [facility] Est Glomerular Filtration Rate 73 >=60 mL/min/1. 73 m?? [facility] Comment: This patient? s estimated [...] Lab Yoandy Wheatley MD CHEMISTRY ORDERABLE S Performing Organization Address [facility] Co de Phone Number [facility] [address] * EKG 12 Lead (12/19/2021 1:04 PM EST) Ventricular rate 78 BPM MUSE SYSTEM Atrial Rate 78 BPM MUSE SYSTEM P-R Interval 168 ms MUSE SYSTEM QRS Duration 112 ms MUSE SYSTEM Q-T Interval 374 ms MUSE SYSTEM QTC Calculated (Bezet) 426 ms MUSE SYSTEM Calculated R [place] 69 degrees MUSE SYSTEM Calculated T [place] -105 degrees MUSE SYSTEM INTERPRETATION Normal sinus rhythm When compared with ECG of 27-OCT-2017 14:53, QRS duration has increased Borderline criteria for Inferior infarct are no longer Present ST elevation now present in Anterior leads Confirmed by MD Dayanara, Speedy Jefferson ([id number]) on 12/19/2021 4:27:32 PM MUSE SYSTEM 12/19/2021 1:04 PM EST 12/19/2021 4:27 PM EST Yoandy Wheatley MD ECG ORDERABLES Performing Organization Address City/[facility] Co de Phone Number MUSE SYSTEM documented in this encounter Visit Diagnoses Diagnosis Chest pain, unspecified type Hypertension, unspecified type Obesity (BMI 35.0-39.9 without comorbidity) Obesity, unspecified Unstable angina Intermediate coronary syndrome Unstable angina Intermediate coronary syndrome documented in this encounter Care Teams Flight Operations Inspector Relationship Specialty Start Date End Date Randa Rosas APRN [address] [place] [id number] PCP - General 12/29/12 04/16/22 documented as of this encounter
--- OUTSIDE RECORDS SUMMARY | 2024-11-18 16:55 | XMS_ITS | Encounter Summary ---
Author Organization [facility] [place] [place] [address] Care Team Providers Care Insurance Plan Specialist Name Role Phone Randa Rosas VALENTIN Primary Care Provider [phone]- [phone] Reason for Visit * Reason Comments Follow Up Surgery colostomy Encounter Details Date Type Department Care Team (Late st Contact Info) Description 11/18/2017 1:00 PM EST Office Visit [place] [phone] Attention to colostomy Social History Tobacco Use [...] on file documented as of this encounter Progress Notes * Nighat Lopez RN - 11/18/2017 1:00 PM EST Images from the original note were not included. Post op Clinic Visit Diagnosis: Hospital Problems as of 11/18/2017 None Problem List as of 11/18/2017 Rectal cancer Diabetes mellitus Obesity (BMI 35.0-39.9 without comorbidity) Hypertension Snoring Colostomy in place RESOLVED: Colostomy in place Neurogenic bladder Partial small bowel obstruction Ostomy nurse consultation SBO (small bowel obstruction) Acute kidney injury Attention to colostomy Surgery/Date: 10/29/17: expl lap repair of incarcerated parastomal hernia, modified mesh repair andappendectomy. D/C Date: 11/05/17 [facility] Reason for Visit: f/u visit with Lenore DARBY and harp repairer. Dr. Theo Washington also came to see pt since she did his surgery. Ostomy Supplies: wearing Convatec 2 1/4 medium moldable convex with paste and pouch with Invisclose opening Supplies Ordered/Vendor:[employer] [facility] Samples Ordered: none this post op as pt has had his colostomy since 2012 Patient Teaching/Follow-up:pt here with his s.oLani Ovalles for 3 week post op check. He is feeling so much better since this surgery. He was quite uncomfortable for weeks before surgery and actually hadlost 40 lbs before this surgery as he could not eat much. The colostomy was not revised but I changed his pouch as it was due and I wanted to assess the area as he did have mesh implant. His stoma isred and viable (picture below), flush to the skin and puckers a bit below the stoma, particularly with peristalsis. They have continued to have good luck with the Convatec moldable convex wafer with paste. Occasionally have leakage (once/mos) but not regularly. They were both not pleased with the [place] 2 piece system system that was used here. I told them that we used the flat wafer and he isusing convexity, that was likely the difference and reason for failure. Follow up: one yr documented in this encounter Plan of Treatment Not on file documented as of this encounter Visit Diagnoses Diagnosis Attention to colostomy documented in this encounter Care Teams Insurance Plan Specialist Relationship Specialty Start Date End Date Randa Rosas APRN [address] [place] [address] PCP - General 12/29/12 04/16/22 documented as of this encounter
--- OUTSIDE RECORDS SUMMARY | 2024-11-18 16:55 | XMS_ITS | Encounter Summary ---
Author Organization [facility] [place] [address] Care Team Providers Care Food Sanitarian Name Role Phone Randa Rosas CEMENT CUTTER Primary Care Provider [phone]- [phone] Reason for Visit * Reason Comments Follow-up attn to colostomy Encounter Details Date Type Department Care Team (Late st Contact Info) Description 12/16/2018 2:00 PM EST Office [place] [phone] Attention to colostomy Social History Tobacco Use [...] Reading Time Taken Comments Blood Pressure 125/67 12/16/2018 2:01 PM EST Pulse 108 12/16/2018 2:01 PM EST Temperature 37 ??C (98.6 ??F) 12/16/2018 2:01 PM EST Respiratory Rate - - Oxygen Saturation 97% 12/16/2018 2:01 PM EST Inhaled Oxygen Concentration - - Weight - - Height - - Body Mass Index - - documented in this encounter Progress Notes * Nighat Lopez RN - 12/16/2018 2:00 PM EST Images from the original note were not included. micro[employer] dynamics ax consultant Note: pt and s.o., Charlette, here for one mos f/u. Charlette was teary upon my arrival to see pt. Over this past weekend her brother in law here at [facility] following an LA. It's still very fresh and they have not had the yet. She is also dealing with her Mom, who is in Rehab secondary to a fall and recent quadriplegia. Reg is doing well but leaked before he made the trip today so they changed first thing this a.m and upon arrival to [facility] the pouch began to leak again. He had cleaned up a lot by the time I saw him. He is still wearing the Coloplast cut to fit one piece pouch #[id number] with ring and had been getting 3-4 days. Charlette does the change and she said about 2 weeks ago she noted some skin breakdown under the stoma and she was concerned he would develop another u lcer like the previous one. You can see in the picture below that that has healed and has some new epithelial tissue covering it (see dark site below). She is still covering this with the Aquacel andExuderm. I told her we will just use the Exuderm today and only needs it a few more times until theskin toughens up. I explained that the ulcer was created because of pressure from the convex pouching system he had been wearing and this denuded skin is caused from exposure to stool. His skin dips here and the os of his stoma is at the 6-7 o'clock area at skin level. He has had some loose stool the last couple of days and he had still been taking his stool softener. He will stop this. I had taught them to cut the pattern larger than his stoma because of this dip in skin so this skin is exposed. I still recommend this same procedure but told them to apply powder and Nosting skin prep and no dressing over the denuded skin, as she had tried covering this with the Aquacel and Exuderm and thisdid not work on this inferior skin. I enc them to change when he notes burning or itching, which may be every 2 days instead of every 3-4 days, until the skin heals. I will f/u in 6 mos. Sooner prn. documented in this encounter Plan of Treatment Not on file documented as of this encounter Visit Diagnoses Diagnosis Attention to colostomy documented in this encounter Care Teams Food Sanitarian Relationship Specialty Start Date End Date Randa Rosas APRN [address] [place] [address] PCP - General 12/29/12 04/16/22 documented as of this encounter
--- OUTSIDE RECORDS SUMMARY | 2024-11-18 16:55 | XMS_ITS | Encounter Summary ---
Author Organization [facility] Address [facility] [place] [address] Care Team Providers Care Thermospray Operator Name Role Phone Randa Rosas APRN Primary Care Provider [phone]- [phone] Encounter Details Date Type Department Care Team (Late st Contact Info) Description 08/03/2020 10:00 AM EDT Office [place] [phone] Rehan Mast MD [facility] [place] [address] Parastomal hernia without obstruction or gangrene Social History Tobacco Use Types Packs/Day Years [...] Sign Reading Time Taken Comments Blood Pressure 140/90 08/03/2020 9:52 AM EDT Pulse 83 08/03/2020 9:52 AM EDT Temperature - - Respiratory Rate 18 08/03/2020 9:52 AM EDT Oxygen Saturation 98% 08/03/2020 9:52 AM EDT Inhaled Oxygen Concentration - - Weight 120.7 kg (266 lb) 08/03/2020 9:52 AM EDT Height - - Body Mass Index 41.65 04/15/2018 3:22 PM EDT documented in this encounter Progress Notes * Rehan Mast MD - 08/03/2020 10:00 AM EDT Patient: Reg Salazar : 1955 Date of service: 08/03/2020 PCP: Randa Rosas APRN Referring provider: Randa Rosas Subjective: Reg Salazar is a 65 y.o. male who I am seeing for Dr Washington. He presents for routine visit to discuss his recurrent parastomal hernia. Briefly, he underwent APR in 04/2013 for low grade [id number] rectal adenocarcinoma. He [place] [facility] [place] with SBO secondary to parastomal hernia. He underwent open incisional and parastomal hernia with prolonged enterolysis, primary fascial closure, and underlay biologic implant. This recovery was prolonged with DVT, poor glycemic control, MAYNOR, malnutrition, and need for TPN. Today he presents to discuss his recurrent parastomal hernia. He reports first noticing this ~1 year ago. It seems to be slowly enlarging. It has changed the lay of his appliance but has not resultedin leaking or less durable pouching. His job entails lifting for most of the day, despite this he denies pain or tenderness with any activities. He denies obstructive symptoms. He denies issues with the incisional hernia repair. He tried a hernia belt in the past and did not feel it was of any benefit. Objective: This is an age appropriate, south korean speaking, morbidly obese male in [facility]. He is able to converse easily and appropriately while breathing RA. Gait around the office is observed to be wnl. Body mass index is 41.65 kg/m??. Incision well healed without evidence of hernia. Large nonreducing parastomal hernia. NTTP. Cannot feel fascial edges. No overlying skin changes. Appliance clean and well applied. Assessment: - Asymptomatic recurrent parastomal hernia (nonreducible) - H/O incisional and parastomal hernia repair (primary fascial closure with biologic underlying) 2016 - H/O stage 2a rectal cancer ([id number]), s/p neoadjuvant chemoradiation 2012 - H/O FEB 2013 - Morbid obesity - DM Discussion/Plan: He presented to discuss his recurrent parastomal hernia. He reports first noticing this ~1 year ago. It seems to be slowly enlarging. It has changed the lay of his appliance but has not resulted in leaking or less durable pouching. His job entails lifting for most of the day, despite this he deniespain or tenderness with any activities. He denies obstructive symptoms. He tried a hernia belt in the past and did not feel it was of any benefit. It was not reducible on exam. He denies issues with the incisional portion of the hernia repair. His recurrent parastomal hernia is asymptomatic and can be safely observed. We reviewed the signs and symptoms of SBO and strangulation. He was very interested in knowing if there was a way to avoid needing an NGT ever again. This seemed to be the prime reason for his visit. We discussed his SBO risk, from adhesions and/or recurrent hernia, and that there was no way to remove this as a possibility. We discussed the high recurrence rate with parastomal hernia repair and that, even with terminal make up operator success, he would still carry the adhesive SBO risk. Also, his morbid obesity and DM increase the risk of hernia recurrence further. A repeat recurrence could be symptomatic. Follow up PRN. Thank you for including me in the care of your patient. Please do not hestitate to contact us with any further questions or concerns you may have. Rehan Mast MD. 08/03/2020 10:49 AM office [phone] fax [phone] documented in this encounter Plan of Treatment Not on file documented as of this encounter Visit Diagnoses Diagnosis Parastomal hernia without obstruction or gangrene Hernia of unspecified site of abdominal cavity without mention of obstruction or gangrene documented in this encounter Care Teams Thermospray Operator Relationship Specialty Start Date End Date Randa Rosas APRN [address] [place] [phone] PCP - General 12/29/12 04/16/22 documented as of this encounter
--- OUTSIDE RECORDS SUMMARY | 2024-11-18 16:55 | XMS_ITS | Encounter Summary ---
Author Organization [facility] Address [facility] [place] [address] Care Team Providers Care Hunting And Fishing Guide Name Role Phone Randa Rosas APRN Primary Care Provider +1- [phone] Reason for Visit * Reason Comments Rectal Cancer Encounter Details Date Type Department Care Team (Late st Contact Info) Description 04/15/2018 3:00 PM EDT Office Visit Hematology/Oncology at [address] [phone] Nas Dobbs MD Rectal cancer Social History Tobacco Use Types Packs/Day Years [...] Sign Reading Time Taken Comments Blood Pressure 114/55 04/15/2018 3:22 PM EDT Pulse 75 04/15/2018 3:22 PM EDT Temperature 36.8 ??C (98.2 ??F) 04/15/2018 3:22 PM ED T Respiratory Rate 18 04/15/2018 3:22 PM EDT Oxygen Saturation 99% 04/15/2018 3:22 PM EDT Inhaled Oxygen Concentration - - Weight 108.4 kg (239 lb) 04/15/2018 3:22 PM EDT Height 170.2 cm (5' 7.01) 04/15/2018 3:22 PM ED T copied Body Mass Index 37.42 04/15/2018 3:22 PM EDT documented in this encounter Progress Notes * Nas Dobbs MD - 04/15/2018 3:00 PM EDT Patient Active Problem List Diagnosis Code ??? Rectal cancer C20 ??? Diabetes mellitus E11.9 ??? Obesity (BMI 35.0-39.9 without comorbidity) E66.9 ??? Hypertension I10 ??? Snoring R06.83 ??? Colostomy in place Z93.3 ??? Neurogenic bladder N31.9 ??? Partial small bowel obstruction K56.600 ??? Ostomy nurse consultation Z71.89 ??? SBO (small bowel obstruction) K56.609 ??? Acute kidney injury N17.9 ??? Attention to colostomy Z43.3 Diagnosis: 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 Status post neoadjuvant chemoradiation therapy with continuous infusion 5 fluorouracil followed by a AP resection. The patient then had 8 cycles of adjuvant FOLFOX chemotherapy SUBJECTIVE: Reg comes in today for followup. This is his 5 year follow-up. Since I last saw him he ended up being admitted on 2 occasions for small bowel obstruction and finally needed surgery for that. He is done well since then but did have a deep venous thrombosis developed and is on Eliquis for that. Still has a fair amount of swelling his right leg but he tells me is back at work working 50 hour shifts again. He is keeping a compression sock on his right leg. Spinal function is fine now. He is still having occasional discomfort with his ostomy when he works a long shift and wanted her refill on hispain medication. I do not think he is been abusing the medication and only takes a few pills a weekbut the current trend is to try and limit the use of narcotics in these kinds of situations. I discussed that with him and he is fine with that. After discussions we agreed to refill 30 Percocets with with no plans on refills. Current Outpatient Prescriptions on File Prior to Visit Medication Sig Dispense Refill ??? ONE TOUCH DELICA 33 gauge Misc ??? ONETOUCH ULTRA TEST Strip ??? Miscellaneous Medical Supply Misc 1 each by Misc.(Non-Drug; Combo Route) route daily. Apply to right lower extremity - thigh high 1 each 3 ??? apixaban (ELIQUIS) 5 mg Tablet Take 1 tablet by mouth 2 times daily. 30 tablet 2 ??? acetaminophen (TYLENOL) 325 mg Tablet Take 3 tablets by mouth every 6 hours as needed for Pain.30 tablet 0 ??? ibuprofen (ADVIL;MOTRIN) 600 mg Tablet Take 1 tablet by mouth every 6 hours. 30 tablet 12 ??? JANUMET 50-1,000 mg Tablet Take 1 tablet by mouth 2 times daily. ??? Syringe with Needle, Disp, (MONOJECT TB SAFETY SYRINGE) 1 mL 25 x 5/8 Syrg 0.1 mLs by [facility].(Non-Drug; Combo Route) route as needed (use no more than 3 times a week). 25 Syringe 11 ??? lisinopril (PRINIVIL;ZESTRIL) 10 mg tablet Take 10 mg by mouth 2 times daily. ??? atorvastatin (LIPITOR) 40 mg tablet Take 20 mg by mouth daily. / tab= 20mg ??? glipiZIDE (GLUCOTROL) 10 mg 24 hr tablet Take 10 mg by mouth daily. ??? multivitamin (THERAGRAN) tablet Take 1 tablet by mouth daily. ??? ciprofloxacin (CIPRO) 250 mg Tablet ??? pantoprazole (PROTONIX) 40 mg Tablet, Delayed Release (E.C.) Take 1 tablet by mouth daily. (Patient not taking: Reported on 04/15/2018) 90 tablet 3 ??? INDOMETHACIN ORAL Take by mouth. Reported on 01/01/2017 Current Facility-Administered Medications on File Prior to Visit Medication Dose Route Frequency Provider Last Rate Last Dose ??? diatrizoate meglumine (HYPAQUE, CYSTOGRAFIN) urethral solution 300 mL 300 mL Urethral Once PRN Junie Dominguez MD Review of Systems Constitutional: Negative for fever, chills, activity change, fatigue and unexpected weight change. HENT: Negative for sore throat, mouth sores and trouble swallowing. Eyes: Negative. Respiratory: Negative for cough, shortness of breath and wheezing. Cardiovascular: Negative for chest pain, palpitations and leg swelling. Gastrointestinal: Negative for nausea, vomiting,He has positive perirectal pain which is improving and ostomy is functioning well Genitourinary: Negative for dysuria and Positive for difficulty urinating. Musculoskeletal: Negative. Skin: Negative. Neurological: Negative except for the cold intolerance as expected. He has no neuropathy. Hematological: Negative for adenopathy. BP 114/55 (Patient Position: Sitting) Pulse 75 Temp 36.8 ??C (98.2 ??F) (Oral) Resp 18 Ht 170.2 cm (5' 7.01) Comment: copied Wt 108.4 kg (239 lb) SpO2 99% BMI 37.42 kg/m2 Head: Normocephalic, without obvious abnormality, atraumatic Eyes: PERRL, conjunctiva/corneas clear, EOM's intact, fundi benign, both eyes Ears: Normal TM's and external ear canals, both ears Nose: Nares normal, septum midline, mucosa normal, no drainage or sinus tenderness Throat: Lips, mucosa, and tongue normal; teeth and gums normal Neck: Supple, symmetrical, trachea midline, no adenopathy, thyroid: not enlarged, symmetric, no tenderness/mass/nodules, no carotid bruit or JVD Back: Symmetric, no curvature, ROM normal, no CVA tenderness Lungs: Clear to auscultation bilaterally, respirations unlabored Chest Wall: No tenderness or deformity port appears normal Heart: Regular rate and rhythm, S1, S2 normal, no murmur, rub or gallop Abdomen: Soft, non-tender, bowel sounds active all four quadrants, no masses, no organomegaly His abdominal incision is healed. He has a visual incision line that extends down his left leg it is alsocompletely healed. Colostomy is fine Extremities: Extremities normal with a healed incision, atraumatic, no cyanosis or edema Pulses: 2+ and symmetric Skin: Skin color, texture, turgor normal, there is some dry flaking and peeling on his hands and the bottoms of his feet Lymph nodes: Cervical, supraclavicular, and axillary nodes normal Neurologic: Normal ONCBCN ONCOLOGY (AMB) 06/21/2013 07/05/2013 07/19/2013 08/09/2013 fluorouracil (ADRUCIL) IV 855 mg 855 mg 855 mg 855 mg leucovorin IV 43 mg 43 mg 43 mg 43 mg OXALIplatin (ELOXATIN) IV 182 mg 182 mg 182 mg 182 mg ONCBCN ONCOLOGY (AMB) 08/24/2013 09/07/2013 09/21/2013 10/05/2013 fluorouracil (ADRUCIL) IV 855 mg 855 mg 855 mg 855 mg leucovorin IV 43 mg 43 mg 43 mg 43 mg OXALIplatin (ELOXATIN) IV 182 mg 182 mg 182 mg 182 mg EXAMINATION: CT ABDOMEN AND PELVIS W CONTRAST 08/24/17 ?? CLINICAL HISTORY: Patient with partial colectomy and ostomy in place. Now with decreased ostomy output, lower abdominal pain, nausea and vomiting concerning for extraction ?? TECHNIQUE: Helical CT of the abdomen and pelvis was performed following the intravenous administration of contrast. 120 cc of Omnipaque 350 was given. Oral contrast was administered. ?? COMPARISON: December 30, 2016. ?? FINDINGS: ?? Lower chest: No consolidation or pleural effusions. ?? Liver: Normal size and attenuation without lesions. Bile ducts: Nondilated. Gallbladder: No calcified gallstones. Normal caliber wall. Pancreas: Normal attenuation without ductal dilatation. Spleen: Normal. Adrenals: Normal. Kidneys: Normal. ?? Vasculature: No aneurysm. Lymph Nodes: No enlarged lymph nodes. Bowel: Abdominopelvic resection is again noted. An end colostomy is seen in the left lower quadrant. Bilateral complex wide necked anterior abdominal wall ventral/parastomal hernias are again noted. There appears to be adhesion of the bowel to the abdominal wall within the hernias. There is distention of several loops of small bowel in between decompressed adhesed loops of small bowel. The most distended bowel measures up to 4.8 cm. Oral contrast has however past into the cecum and there is no evidence of complete obstruction. ? Peritoneum and mesentery: There is unchanged presacral soft tissue density with a small amount of fluid centrally. Abdominal wall: Bilateral complex wide necked anterior abdominal wall ventral hernias are unchanged. ?? Urinary Bladder: No asymmetric wall thickening. Osseous structures: No suspicious lesions. ?? IMPRESSION 1. Complex ventral hernias are unchanged in configuration. There is likely some degree of partial small bowel obstruction related to adhesions in the hernia sacs. There is no evidence of complete bowel obstruction as contrast has passed into the colon. The stomach and proximal small bowel are also fairly decompressed. 2. Stable appearance of pre-sacral soft tissue density and fluid likely reflecting posttreatment changes. ?? Laboratory is reviewed. White count 6.2 hemoglobin 12.3 hematocrit 38% platelet count is 237 CMP shows normal electrolytes a creatinine of 0.7 a bilirubin of 0.5 ALP of 62. CEA remains quite low at 0.5 Assessment/plan: Reg is doing well as far as his colon cancer with no evidence recurrence now 5 years out. At this point I do not really think we need to be following CEAs or even routine laboratory and we discussedsimply following up with his PCP. We had been giving him a few narcotic tablets each visit because of discomfort he would have at work related to his ostomies. When he would work on long shift he would be uncomfortable and those did seem to help. He would like a refill that we discussed trying nonnarcotic means for control. He thinks he can do that but in order give him some time to adjust to nottaking pain medications at all we will limit his prescription to 30 tablets with no refills. He understands that using long-term narcotics in this situation is probably not in his best interest. We will see him back on a as needed basis. He will follow-up with his PCP as far as a deep venous thrombosis and I do not think any particular follow-up needs to be done at this point as far as his rectalcancer. He of course should have a routine colonoscopy every 5-10 years. documented in this encounter Plan of Treatment Not on file documented as of this encounter Procedures Procedure Name Priority Date/Time Associated Diagnosis Comments LAB SCAN 04/06/2018 12:00 AM EDT LAB SCAN 04/04/2018 12:00 AM EDT documented in this encounter Results * SCAN DOC: LAB (04/06/2018 12:00 AM EDT) Narrative 04/06/2018 12:00 AM EDT Ordered by an unspecified provider. Scanning Provider MEDIA MGR SCAN EXT O RDR/RSLT * SCAN DOC: LAB (04/04/2018 12:00 AM EDT) Narrative 04/04/2018 12:00 AM EDT Ordered by an unspecified provider. Scanning Provider MEDIA MGR SCAN EXT O RDR/RSLT documented in this encounter Visit Diagnoses Diagnosis Rectal cancer Malignant neoplasm of rectum documented in this encounter Care Teams Hunting And Fishing Guide Relationship Specialty Start Date End Date Randa Rosas APRN [address] [place] [address] PCP - General 12/29/12 04/16/22 documented as of this encounter
--- OUTSIDE RECORDS SUMMARY | 2024-11-18 16:55 | XMS_ITS | Encounter Summary ---
Author Organization [facility] Address [facility] [place] [address] Care Team Providers Care Behavioral Scientist Name Role Phone Randa Rosas VALENTIN Primary Care Provider +1- [phone] Encounter Details Date Type Department Care Team (Latest Contact Info) Description 01/07/2022 4:00 PM EST - 01/07/2022 11:59 PM [facility] Hospital Encounter XRay at [address] [place] [address] Levi Hinds MD Chest pain, unspecified type; Coronary artery disease of [place] heart with stable angina pectoris, unspecified vessel or lesion type Discharge Disposition: Home Social History Tobacco Use [...] End Date fluticasone propionate (Flonase) 50 mcg/actuation [place], Suspension as needed. 01/07/2022 aspirin 81 mg Tablet, Chewable Take 81 [...] tablet Take 1 tablet by mouth daily. chlorhexidine (HIBICLENS) 4 % Liquid Apply topically daily as needed. Shower from head to toe with Chlorhexidine the night before surgery . 120 mL 01/07/2022 01/31/2022 ibuprofen (ADVIL;MOTRIN) 600 mg Tablet Take 1 tablet by mouth every 6 hours. 30 tablet 12 11/04/2017 01/31/2022 JANUMET 50-1,000 mg Tablet Take 1 tablet by mouth 2 times daily. 08/18/2017 12/05/2022 lisinopril (PRINIVIL;ZESTRIL) 10 mg tablet Take 10 mg by mouth 2 times daily. 01/31/2022 documented as of this encounter Plan of Treatment Not on file documented as of this encounter Procedures Procedure Name Priority Date/Time Associated Diagnosis Comments XR CHEST PA AND LATERAL Routine 01/07/2022 4:09 PM EST Chest pain, unspecified type Coronary artery disease of [place] heart with stable angina pectoris, unspecified vessel or lesion type documented in this encounter Results * XR [...] who have questions please contact the health emergency care attendant that requested your imaging first. ? Electronically signed by: Jahaira Christopher MD, [facility] ([phone]), at 01/07/2022 4:20 PM Narrative 01/07/2022 4:20 PM EST EXAMINATION: XR [...] patients who have questions please contactthe health emergency care attendant that requested your imaging first. Electronically signed by: [facility]([phone]), at 01/07/2022 4:20 PM Levi Hinds MD IMG DX ORDERABLES documented in this encounter Visit Diagnoses Diagnosis Chest pain, unspecified type Coronary artery disease of [place] heart with stable angina pectoris, unspecified vessel or lesion type documented in this encounter Care Teams Behavioral Scientist Relationship Specialty Start Date End Date Randa Rosas APRN [address] [place] [address] PCP - General 12/29/12 04/16/22 documented as of this encounter
--- OUTSIDE RECORDS SUMMARY | 2024-11-18 16:55 | XMS_ITS | Encounter Summary ---
Author Organization [facility] Address [facility] [place] [address] Care Team Providers Care Ash Pit Worker Name Role Phone Alison Randa VALENTIN Primary Care Provider +1- [phone] Reason for Referral * Diagnostic Test (Routine) - Closed Specialty Diagnoses / Procedures Referred By Contac t Referred To Contact Cardiology Diagnoses Unstable angina Procedures Echocardiogram Transthoracic([facility] or [facility]) Sohail Hightower PA [facility] [place] [address] [facility] [place] [address] Referral ID Status Reason Start Date Expiration Date V isits Requested Visits Authorized [id number] Closed Specialty Service Requested 12/19/2021 12/19/2022 1 1 Reason for Visit * Diagnostic Test (Routine) - Closed Specialty Diagnoses / Procedures Referred By Contac t Referred To Contact Cardiology Diagnoses Unstable angina Procedures Echocardiogram Transthoracic([facility] or [facility]) Sohail Hightower PA [facility] [place] [address] [facility] [place] [address] Referral ID Status Reason Start Date Expiration Date V isits Requested Visits Authorized [id number] Closed Specialty Service Requested 12/19/2021 12/19/2022 1 1 Encounter Details Date Type Department Care Team (Late st Contact Info) Description 12/20/2021 9:00 AM EST - 12/20/2021 11:59 PM EST Hospital Encounter Non-Invasive Cardiology Lab [facility] [place] [address] Yoandy Wheatley MD [facility] [place] [address] Unstable angina Discharge Disposition: Home Social History Tobacco Use [...] tablet Take 1 tablet by mouth daily. Dupixent Syringe 300 mg/2 mL Syringe 06/22/2020 12/27/2021 ibuprofen (ADVIL;MOTRIN) 600 mg Tablet Take 1 [...] Diagnosis Comments ECHO COMPLETE W CONTRAST Routine 12/20/2021 9:57 AM EST Unstable angina documented in this encounter Results * ECHO COMPLETE W CONTRAST (12/20/2021 9:57 AM EST) EF 39 HEARTLAB SYSTEM Anatomical Region Laterality Modality Other 12/20/2021 Narrative 12/20/2021 10:33 AM EST Procedure: ?Transthoracic Echocardiogram Patient: ?SKYE JURADO E ?(Age): 1955(66y) Med Rec#: ? [id number] ?Sex: ?M ? Site Loc: ? [facility] ?Ht / Wt: ??170(cm)/118(kg) Pt. Loc: ?Echo Lab ?BSA: ?2.26 Study Date: ?? 12/20/2021 ?Pt. Type: Outpatient Tape: ? Referring: ELIAN Reading: Ying Germain ([id number]) Wet Trimmer: Abe Corbin RDCS, VINAY Diagnosis: *Unstable angina (I20.0) Rhythm: ? Sinus [...] ?The estimated pulmonary artery systolic pressure is 33.1349516813060 mmHg. ?The estimated right atrial pressure is [...] Vmax ?0.86 ? m/sec ? MV deceleration mltt239.9 ?msec ? MV A-wave Vmax ?1.19 ? [...] 12/20/2021 10:32:30 Images reviewed and interpretation verified [facility] Cardiac Ultrasound Laboratory Procedure Note Ying Germain MD - 12/20/2021 Procedure: Transthoracic Echocardiogram Patient: SKYE REMY(Age): 1955(66y) Med Rec#: [id number] Sex: M Site Loc: [facility] Ht / Wt: 170(cm)/118(kg) Pt. Loc: Echo Lab BSA: 2.26 Study Date: 12/20/2021 Pt. Type: Outpatient Tape: Referring: ELIAN Reading: Ying Germain ([id number]) Wet Trimmer: Abe Corbin RDCS, FASE Diagnosis: *Unstable angina [...] The estimated pulmonary artery systolic pressure is 33.5597972083323 mmHg. The estimated right atrial pressure is [...] MV E-wave Vmax 0.86 m/sec MV deceleration zigg672.9 msec MV A-wave Vmax 1.19 m/sec MV [...] 12/20/2021 10:32:30 Images reviewed and interpretation verified [facility] Cardiac Ultrasound Laboratory Yoandy Wheatley MD ECHO ORDERABLES documented in this encounter Visit Diagnoses Diagnosis Unstable angina Intermediate coronary syndrome documented in this encounter Administered Medications Inactive Administered Medications - up to 3 most recent administrations Medication Order MAR Action Action Date Dose Rate Site perflutren protein-A microsphers (Optison) (0.22 mg/mL) injection 3 mL 3 mL, Intravenous, ONCE PRN, 1 dose, Starting on Thu12/20/21 at 0958, Until Thu12/20/21 at 0958, prn, Routine Given 12/20/2021 9:58 AM EST 3 mLs documented in this encounter Care Teams Ash Pit Worker Relationship Specialty Start Date End Date Randa Rosas APRN [address] [place] [address] PCP - General 12/29/12 04/16/22 documented as of this encounter
--- OUTSIDE RECORDS SUMMARY | 2024-11-18 16:55 | XMS_ITS | Encounter Summary ---
Author Organization [facility] [place] [address] Care Team Providers Care Leather Novelty Parts Cutter Name Role Phone Randa Rosas APRN Primary Care Provider +1- [phone] Encounter Details Date Type Department Care Team (Late st Contact Info) Description 10/18/2018 1:00 PM EST Office [place] [phone] Colostomy care Social History Tobacco Use Types Packs/Day Years [...] as of this encounter Progress Notes * Nevaeh Martins, RN - 10/18/2018 1:00 PM EST Images from the original note were not included. I met with patient and his [facility] Char[facility]. He is now one year s/p exploratory lap for repair of incarcerated parastomal hernia (10/29/17) (colostomy originally for rectal cancer). He was worried about an ulceration that they noted and concerned about how to carefor it. He has had ulcerations in the past (see note 09/06/14) and so we treated this one the same by covering it with Aquacel dressing, and then covered with Extrathin duoderm, then his pouching system. He is very resistant to change from the Convatec moldable medium convex wafer with Adapt paste, so he is going to stay in this appliance for now. The ulceration is superficial, but still it is an ulcer. It is lateral where he has a bulge from his stoma so it is likely an ulceration due to pressure. He is not wearing a belt and I have cautioned him to keep pressure off of the area. He will makean appointment to see [facility] nurse in about a month when he thinks he has another appointment, but different service here. documented in this encounter Plan of Treatment Not on file documented as of this encounter Visit Diagnoses Diagnosis Colostomy care Attention to colostomy documented in this encounter Care Teams Leather Novelty Parts Cutter Relationship Specialty Start Date End Date Randa Rosas APRN [address] [place] [address] PCP - General 12/29/12 04/16/22 documented as of this encounter
--- OUTSIDE RECORDS SUMMARY | 2024-11-18 16:55 | XMS_ITS | Encounter Summary ---
Author Organization [facility] [place] [address] Care Team Providers Care Formula Maker Name Role Phone Randa Rosas APRN Primary Care Provider +1- [phone] Reason for Visit * Auth/Cert Specialty Diagnoses / Procedures Referred By Contac t Referred To Contact Diagnoses Unstable angina [I20.0] Procedures PRG CATH PLMT LEFT HEART CATH & ARTS W/INJ & ANGIO IMG S&I CARDIAC CATHETERIZATION CORONARY ANGIOGRAPHY; W LHC,POSSIBLE PCI Referral ID Status Reason Start Date Expiration Date Visits Re quested Visits Authorized [id number] 1 1 Encounter Details Date Type Department Care Team (Latest Contact Info) Description 12/30/2021 8:05 AM EST - 12/30/2021 2:06 PM EST Hospital Encounter [place] [address] Praneeth Malhotra MD Unstable angina Discharge Disposition: Home Social History [...] Sign Reading Time Taken Comments Blood Pressure 129/65 12/30/2021 1:30 PM EST Pulse 86 12/30/2021 1:00 PM EST Temperature 36.1 ??C (97 ??F) 12/30/2021 1:11 PM EST Respiratory Rate 16 12/30/2021 1:30 PM EST Oxygen Saturation 97% 12/30/2021 1:30 PM EST Inhaled Oxygen Concentration - - Weight 113.4 kg (250 lb) 12/30/2021 8:40 AM EST Height 170.2 cm (5' 7) 12/30/2021 8:40 AM EST Body Mass Index 39.16 12/30/2021 8:40 AM EST documented in this encounter Discharge Instructions * Discharge Instructions* Yesenia Torres, RN - 12/30/2021 1:05 PM EST Radial [...] by your doctor, do not take any vyei-isg-vjohkxz medicinesor herbal preparations without first discussing this with your doctor or pharmacist. There is the possibility of side effects and interactions when these are combined. Follow Up Care Who to call with questions or problems If there are any questions or problems that you think might be related to your cardiac cath or angioplasty, contact the metal loader eap consultant by calling [facility] at . * Patient Instructions* Faisal Miguel MD - 12/30/2021 12:44 PM EST * You will be contacted by the cardiac surgery team for a follow up appointment. * In the meantime, take all of your medications as prescribed. * Attachments The following attachments cannot be sent through Care Everywhere. * Coronary Angiogram: Post-op (French) documented in this encounter Medications at Time [...] in the chart. Faisal Miguel MD Interventional Textile Slitting Machine Operator, PGY-7 P: [id number] documented in this encounter Miscellaneous Notes * Brief Op Note - Praneeth Malhotra MD - 12/30/2021 8:42 AM EST Images from the original note were not included. [facility] [place] [address] CORONARY ANGIOGRAM AND PERCUTANEOUS CORONARY INTERVENTION REPORT Patient: Reg Salazar : 1955 MR number: [id number] Date of Service: 12/30/2021 Acls Specialist: Praneeth Malohtra MD Fellow: Faisal Miguel MD INDICATION: Reg [...] obtained. The patient was brought to the geoscience laboratory technician and placed onthe table. Time out was [...] no procedural complications. ??? I provided direct gnpc-en-rgwr monitoring of conscious sedation which was administered by an independent trained nurse. RESULTS: Hemodynamics: Hemodynamic assessment demonstrates LVEDP of 14 mmHg. Coronary circulation: The coronary circulation is right dominant. There was severe distal LM+ 3VD with 3 CTOs: ?? Left main: Angiography showed a 80% distal LM lesion. ?? LAD: Angiography showed ostial LAD 70% lesion, then a mid LAD 100% E COMMERCE WEB DEVELOPER and severe diffuse disease of the apical LAD. ?? Circumflex: Angiography showed a 50% ostial lesion, then a 100% E [employer]ER[employer] WEB DEVELOPER of the OM1. ?? RCA: Angiography showed a 100% proximal E COMMER[employer] WEB DEVELOPER. The RPD and RPL fill by collaterals. [...] & Arts W/Inj & Angio Img S&I ([id number]) 12/30/2021 11:18 AM EST Unstable angina POCT GLUCOSE Routine 12/30/2021 8:44 AM EST documented in this encounter Results * POCT Glucose (12/30/2021 1:36 PM EST) Glucose, POC 174 65 - 199 mg/dL [facility] Comment: Supplemental ranges: <140 mg/dL before meals <180 mg/dL all other times of the day Blood 12/30/2021 1:36 PM EST 12/30/2021 1:36 PM EST Praneeth Malhotra MD POINT OF CARE TEST O RDERABLES LUIS ENRI[facility] [place] [address] * CARDIAC CATHETERIZATION (12/30/2021 12:03 PM EST) Anatomical Region Laterality Modality Other Narrative 12/30/2021 1:04 PM EST ?[facility] ? Cardiac Catheterization/Intervention Report ? Patient Name: Salazar, Reg E. ? Procedure Date: 12/30/2021 ? A #: [id number] ? Primary Physician: Praneeth Malhotra ? Case #: [id number] ? File Name: [id number] ? Catheterization Order Number: [id number] ? [facility] ? Final Report [place], [place] ? Patient Name: ? Reg Lux. Salazar ?ID#: ?[id number] ? : ?1955 ? Procedure Date: ? [...] procedure was Elective. The indication for ?the geoscience laboratory technician visit is suspected CAD and LV dysfunction. [...] occlusion. ? Distal flow was via the alutiiq vessel and bridging collaterals. ? There also [...] in size. ??Distal flow was via the alutiiq vessel and ? collaterals from the LAD. ?Right Coronary Artery ? There was a single discrete total occlusion of the proximal segment ? of the right coronary artery (RCA). ??The RCA was large. ??Distal flow ? was via the alutiiq vessel, collaterals from the LAD as well [...] Comments: ?SUMMARY AND THERAPEUTIC RECOMMENDATIONS: ?Reg Handley Salazar presents with unstable angina. He was [...] M.D. ? Report Finalized: 12/30/2021 ??12:57 ? Praneethtia Malhotra MD CARDIAC CATH ORDERAB LES * POCT Glucose (12/30/2021 11:56 AM EST) Glucose, POC 147 65 - 199 mg/dL [facility] Comment: Supplemental ranges: <140 mg/dL before meals <180 mg/dL all other times of the day Blood 12/30/2021 11:5 6 AM EST 12/30/2021 11:56 AM EST Praneeth Malhotra MD POINT OF CARE TEST O ZACH Performing Organization Address [facility] Co de Phone Number [facility] [place] [address] * POCT Glucose (12/30/2021 8:44 AM EST) Glucose, POC 170 65 - 199 mg/dL [facility] Comment: Supplemental ranges: <140 mg/dL before meals <180 mg/dL all other times of the day Blood 12/30/2021 8:44 AM EST 12/30/2021 8:44 AM EST Praneeth Malhotra MD POINT OF CARE TEST Shala SERRANO Performing Organization Address [facility] Co de Phone Number [facility] [place] [address] documented in this encounter Visit Diagnoses Diagnosis Unstable angina Intermediate coronary syndrome Unstable angina Intermediate coronary syndrome documented in this encounter Administered Medications Inactive Administered Medications - up to 3 most recent administrations Medication Order MAR Action Action Date Dose Rate Site sodium chloride 0.9% infusion 200 mL/hr, Intravenous, CONTINUOUS, Starting on Thu12/30/21 at 0900, Until Thu12/30/21 at 1357, Cath (Day of Procedure) New Bag 12/30/2021 9:59 AM EST 200 mL/hr 200 mL/hr documented in this encounter Active and [...] Until Thu12/30/21 at 1357, Cath (Intra-Procedure), Routine 113 (Given - Provid er: Diana Vilchis RN) nitroGLYcerin 100 mcg/mL intracoronary dilution (CANCELED) ONCE PRN, Starting on Thu12/30/21 at 1139, Until Thu12/30/21 at 1357, Cath (Intra-Procedure), Routine 113 (Given - Provid er: Faisal Miguel MD) verapamiL (Isoptin) (2.5 mg/mL) injection (CANCELED) ONCE PRN, Starting on Thu12/30/21 at 1139, Until Thu12/30/21 at 1357, Administer over 2 Minutes, Cath (Intra-Procedure) 1139 (Given - Provid er: Faisal Miguel MD) documented in this encounter Care Teams Formula Maker Relationship Specialty Start Date End Date Randa Rosas APRN [address] [place] [phone] PCP - General 12/29/12 04/16/22 documented as of this encounter
--- OUTSIDE RECORDS SUMMARY | 2024-11-18 16:55 | XMS_ITS | Encounter Summary ---
Author Organization [facility] Address [facility] [place] [address] Care Team Providers Care Bobbin Stripper Name Role Phone Randa Rosas APRN Primary Care Provider +1- [phone] Encounter Details Date Type Department Care Team (Late st Contact Info) Description 12/19/2021 Orders Only Cardiology at [address] [address] Yoandy Wheatley MD [facility] [place] [address] Chest pain, unspecified type (Primary Dx) Social History Tobacco Use Types [...] as of this encounter Visit Diagnoses Diagnosis Chest pain, unspecified type- Primary documented in this encounter Care Teams Bobbin Stripper Relationship Specialty Start Date End Date Randa Rosas APRN [address] [place] [phone] PCP - General 12/29/12 04/16/22 documented as of this encounter
--- OUTSIDE RECORDS SUMMARY | 2024-11-18 16:55 | XMS_ITS | Encounter Summary ---
Author Organization [facility] [place] [address] Care Team Providers Care Barrel Racer Name Role Phone Randa Rosas APRN Primary Care Provider +1- [phone] Encounter Details Date Type Department Care Team (Late st Contact Info) Description 01/07/2022 3:30 PM EST Clinical Support Same Day at [facility] [place] [address] Social History Tobacco Use Types Packs/Day Years [...] as of this encounter Progress Notes * Alexus Quiñones RN - 01/07/2022 3:30 PM EST Anesthesia questionnaire reviewed with patient and significant other while in the Perioperative Care Clinic. Pre-operative instruction booklet reviewed with patient. Reviewed importance of pain control and cough and deep breathing exercise during the post-operative period. Instructed patient on useof Hibiclens soap to shower with the night before surgery or the morning of surgery. Pt verbalizes a good understanding of all information reviewed.Patient also instructed they will receive a bookletcalled A Patient's Guide to Cardiac Surgery in the mail from the surgeons office along with a youtube link for a video about [facility] [place]. Instructed to bring the booklet back in on the day of surgery, as it will be used daily by the inpatient nurses caring for them, to review all of their teaching needs each day that they are here in the hospital. Has not had COVID or COVID symptoms in the past 3 months. PLAN Testing: Sent to for blood work, type and screen and chest x-ray. Special medication instructions: Eliquis and ASA per MD Procedure date: Not yet booked. Guzmanabbe GARCIA Penicillin Allergy Risk Assessment 01/07/2022: Low risk penicillin allergy. OK to receive full dose of cefazolin, cefuroxime, or any 3rd or 4th+ generation cephalosporin. documented in this encounter Plan of Treatment Not on file documented as of this encounter Visit Diagnoses Not on filedocumented in this encounter Care Teams Barrel Racer Relationship Specialty Start Date End Date Randa Rosas APRN [address] [place] [address] PCP - General 12/29/12 04/16/22 documented as of this encounter
--- OUTSIDE RECORDS SUMMARY | 2024-11-18 16:55 | XMS_ITS | Encounter Summary ---
[facility] Organization [facility] [place] [address] Care Team Providers Care Boat Engine Mechanic Name Role Phone Randa Rosas VALENTIN Primary Care Provider +1- [phone] Encounter Details Date Type Department Care Team (Late st Contact Info) Description 11/10/2018 9:00 AM EST [place] [id number] Colostomy care Social History Tobacco Use Types [...] Sign Reading Time Taken Comments Blood Pressure 150/75 11/10/2018 8:46 AM EST Pulse 78 11/10/2018 8:46 AM EST Temperature 36.7 ??C (98.1 ??F) 11/10/2018 8:46 AM ES T Respiratory Rate - - Oxygen Saturation 97% 11/10/2018 8:46 AM EST Inhaled Oxygen Concentration - - Weight - - Height - - Body Mass Index - - documented in this encounter Progress Notes * Cyndie Oconnor RN - 11/10/2018 9:00 AM EST Images from the original note were not included. Pt RTC for f/u assessment of his ulceration near his colostomy. He is now one year s/p exploratory lap for repair of incarcerated parastomal hernia (10/29/17) (colostomy originally for rectal cancer). He saw Nevaeh about a month ago and the ulcer has gotten significantly worse and he felt he should come in sooner than his appt next week. It is very painful and pt's SO is concerned about the amount of Ibuprofen he is taking and pt is requesting pain meds as he said the pain is severe. I removed his moldable convex wafer and he has a large ulceration from the 1-3 o'clock. This is right beneath his convex portion on his wafer and where his hernia is most protuberant. I explained that I felt this is very likely due to pressure from the hernia and rigid convex wafer. We discussed how these are best managed by eliminating any pressure over the ulcer, which means getting him into a flexible wafer. Pt has no underlying autoimmune disease and did not have any of the extreme tenderness to palpation or violaceous borders that I would expect with pyoderma. The ulcer measures 3cm x 2cm. The wound bed if pink and granular. I told him that I suspect much ofhis pain would improve by getting him out of the rigid wafer. I applied a layer of Adapt powder on the ulcer and peristomal skin and sealed this in with no-sting skin prep. I covered the ulcer with some melgisorb Ag (it is quite weepy and I felt he could benefit from some added antimicrobial protection) and exuderm. We Decided to use a Coloplast #[id number] with an Adapt ring. I cut this slightly larger than his stoma, about 1 5/8 wide x 1 1/2 long with sunburst slits along the inferior edge. I told him I'd be happy with this pouch lasting 24hrs and told him he may need to change it daily to avoid leaks at work. He will plan to change tomorrow after work and if it looks to have been sealed well upon removal he will increase to changing every 48hrs. I expressed the importance of not using hisconvex wafer as this will only make the ulcer worse. After applying it, he said it felt much more comfortable and he was not having any pain. He asked about shelter plan and I told him he may be able to get back into a convex pouch, but suggested a flexible convex, such as the 8665, [place] 1 1/2 soft convex or the Coloplast #[id number]. Igave him one of the #9997, but he knows now to use it yet. He generally moves his bowels once/day and said they are fairly regular. He already had an appt set up with us next Thursday and he had planned the day off of work. I suggested he keep that appt so we can assess and make sure he is on the right track. I also reviewed with him the proper dosing for Ibuprofen and encouraged him to take it with food. He knows to call if anyquestions or concerns. documented in this encounter Plan of Treatment Not on file documented as of this encounter Visit Diagnoses Diagnosis Colostomy care Attention to colostomy documented in this encounter Care Teams Boat Engine Mechanic Relationship Specialty Start Date End Date Randa Rosas APRN [address] [place] [address] PCP - General 12/29/12 04/16/22 documented as of this encounter
--- OUTSIDE RECORDS SUMMARY | 2024-11-18 16:55 | XMS_ITS | Encounter Summary ---
Author Organization [facility] [place] [address] Care Team Providers Care Egg Packer Name Role Phone Randa Rosas APRN Primary Care Provider +1- [phone] Encounter Details Date Type Department Care Team (Late st Contact Info) Description 10/19/2018 Notes [place] [phone] Louisa Castillo Social History Tobacco Use Types Packs/Day Years [...] on filedocumented in this encounter Care Teams Egg Packer Relationship Specialty Start Date End Date Randa Rosas APRN [address] [facility] [place] [id number] PCP - General 12/29/12 04/16/22 documented as of this encounter
--- OUTSIDE RECORDS SUMMARY | 2024-11-18 16:55 | XMS_ITS | Encounter Summary ---
[facility] [place] [address] Care Team Providers Care Agricultural Education Instructor Name Role Phone Randa Rosas VALENTIN Primary Care Provider +1- [phone] Reason for Visit * Reason Comments Follow-up colostomy Encounter Details Date Type Department Care Team (Late st Contact Info) Description 11/16/2018 3:00 PM EST Office [place] [phone] Attention to colostomy Social History Tobacco Use [...] Reading Time Taken Comments Blood Pressure 129/67 11/16/2018 2:52 PM EST Pulse 72 11/16/2018 2:52 PM EST Temperature 37.2 ??C (99 ??F) 11/16/2018 2:52 PM EST Respiratory Rate - - Oxygen Saturation 97% 11/16/2018 2:52 PM EST Inhaled Oxygen Concentration - - Weight - - Height - - Body Mass Index - - documented in this encounter Progress Notes * Nighat Lopez RN - 11/16/2018 3:00 PM EST Images from the original note were not included. Pt RTC for one week f/u to assess his peristomal ulcer. He saw Nevaeh GUZMANN on 10/18 and she was suspicious that this was pressure related but pt was skeptical about switching from his convex pouching system. In a matter of a few weeks (11/08) he was seen by Cyndie Oconnor RN [facility] and the ulcer had worsened and was about twice the size it was in September. Today, one week later, after agreeing to switch to nonconvex pouching system, the size of the ulcer is much improved. It is now skin level and difficult to measure because it is odd shape and he has some epithelialization from the edges toward center. You can compare pictures from last week to today. The flat Coloplast pouches, #[id number] with the ring are working ok and have not leaked, which he has been very pleased. The pouch that Cyndie applied last week, Thursday, lasted til Thursday. They changed the pouch Thursday and I removed today. I applied the same pouch but gave him a few samples of the same pouch with filter, #[id number]. Cyndie taught them to cut sunburst slits, add a ring and paste over this. I did the same after applying powder, skin prep and the Aquacel and Exuderm dressing over the ulcer. He will continue as he can see the improvement and he and s.o, Charlette, had gotten quite concerned. Charlette's Mom fell in May and is a quadraplegic, she states. She is still in rehab and she hopes to get her home a gain. 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 He will RTC in 4 weeks to see me. documented in this encounter Plan of Treatment Not on file documented as of this encounter Visit Diagnoses Diagnosis Attention to colostomy documented in this encounter Care Teams Agricultural Education Instructor Relationship Specialty Start Date End Date Randa Rosas APRN [address] [place] [address] PCP - General 12/29/12 04/16/22 documented as of this encounter
--- OUTSIDE RECORDS SUMMARY | 2024-11-18 16:55 | XMS_ITS | Encounter Summary ---
Author Organization [facility] Address [facility] [place] [address] Care Team Providers Care Welder Assembler Name Role Phone Randa Rosas APRN Primary Care Provider +1- [phone] Encounter Details Date Type Department Care Team (Late st Contact Info) Description 11/08/2018 Telephone [place] [phone] Cyndie Oconnor RN Social History Tobacco Use Types Packs/Day Years [...] encounter Miscellaneous Notes * Telephone Encounter - Cyndie Oconnor RN - 11/08/2018 10:02 AM EST I spoke with pt's girlfriend Charlette regarding pt's peristomal ulceration. She said this has gotten worse and is quite painful for him. I suspect this may be pressure related due to his convex flange as pt does not have any underlying autoimmune diseases. I told her we would likely have to put him into a different wafer/pouch for a period of time until it heals. He has an appt next Thursday, but she requested something sooner. I scheduled him for Thursday, 11/10 at 9am. She will call back today if that does not work. documented in this encounter Plan of Treatment Not on file documented as of this encounter Visit Diagnoses Not on filedocumented in this encounter Care Teams Welder Assembler Relationship Specialty Start Date End Date Randa Rosas APRN [address] [place] [phone] PCP - General 12/29/12 04/16/22 documented as of this encounter
--- OUTSIDE RECORDS SUMMARY | 2024-11-18 16:56 | XMS_ITS | Encounter Summary ---
Author Organization [facility] Address [facility] [place] [address] Care Team Providers Care Associate Software Development Engineer Name Role Phone Randa Rosas VALENTIN Primary Care Provider [phone] Reason for Visit * Reason Comments Abdominal Pain * Auth/Cert Specialty Diagnoses / Procedures Referred By Contac t Referred To Contact Diagnoses SBO (small bowel obstruction) Hypertension, unspecified type small bowel obstruction Procedures @EXPLORATORY LAPAROTOMY, WITH/WITHOUT BIOPSY(S) (WRVU 12.54) REPAIR INITIAL INCISIONAL OR VENTRAL HERNIA REDUCIBLE (WRVU 11.92) LAPAROSCOPIC PARASTOMAL HERNIA REPAIR (WRVU *) MODIFIER MESH,BARD VENTRALIGHT ST KALYAN IPI Referral ID Status Reason Start Date Expiration Date Visits Re quested Visits Authorized [id number] 1 1 Encounter Details Date Type Department Care Team (Latest Contact Info) Description 10/27/2017 6:59 AM EST - 11/05/2017 2:54 PM [facility] Hospital Encounter [address] [place] [address] Swetha Price MD Wolffing, Andrea B, MD [facility] [place] [address] Liss Price MD [facility] [place], [place] [id number] SBO (small bowel obstruction); Hypertension, unspecified type; Rectal cancer; Acute deep vein thrombosis (DVT) of other specified vein of right lower extremity Discharge Disposition: Home with VNA Social History [...] Sign Reading Time Taken Comments Blood Pressure 129/78 11/05/2017 11:47 AM EST Pulse 126 11/02/2017 9:30 AM EST with ambulation Temperature 36.7 ??C (98.1 ??F) 11/05/2017 1 1:47 AM EST Respiratory Rate 16 11/05/2017 11:4 7 AM EST Oxygen Saturation 96% 11/05/2017 11: 47 AM EST Inhaled Oxygen Concentration - - Weight 89.8 kg (197 lb 15.6 oz) 10/29/2017 4:00 AM EST Height 170.2 cm (5' 7) 10/27/2017 4:08 PM EST Body Mass Index 31.01 10/27/2017 4:08 PM EST documented in this encounter Discharge Summaries * Mark Brito MD - 11/05/2017 12:47 PM EST Images from the original note were not included. General Surgery Inpatient - Discharge Summary Patient Name: Adrien Cheung Patient Age: 62 y.o. Birthdate: 1955 Admit date: 10/27/2017 Discharge date: 11/05/2017 Admitting Physician: Liss Price MD Primary Diagnosis: SBO (small bowel obstruction) Secondary Diagnosis: Active Hospital Problems Diagnosis ??? SBO (small bowel obstruction) ??? Acute kidney injury ??? Neurogenic bladder ??? Colostomy in place ??? Hypertension ??? Obesity (BMI 35.0-39.9 without comorbidity) ??? Diabetes mellitus Resolved Hospital Problems Diagnosis Date Resolved No resolved problems to display. Active Non-Hospital Problems Diagnosis ??? Ostomy nurse consultation ??? Partial small bowel obstruction ??? Snoring ??? Rectal cancer HPI: Adrien Cheung is a 62 y.o. 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 He denies fever, chills, diarrhea, dysuria, cough, sore throat, any sickcontacts or any other symptoms. He has an appetite but cannot tolerate food or liquids well. He wasrecently admitted for similar symptoms and partial SBO 08/24/17-09/01/17 and was treated conservatively with NGT decompression and had ROBF. A CT scan of the abdomen and pelvis was performed demonstrating a partial small bowel obstruction secondary to a parastomal hernia. Given how frequently this issue has recurred for the patient, he elected for operative repair of this hernia at this time. Operations/Major Procedures: Operations: 10/29/2017 Surgeon(s) and Role: * Vivian Washington MD - Primary * Franklin Gonsales, * BERNARDA Rachel MD: Procedure(s): @EXPLORATORY LAPAROTOMY, WITH/WITHOUT BIOPSY(S) (WRVU 12.54) REPAIR INITIAL INCISIONAL OR VENTRAL HERNIA REDUCIBLE (WRVU 11.92) MODIFIER MESH,BARD VENTRALIGHT ST INCARCERATED PARASTOMAL HERNIA REPAIR (WRVU 11.1) Operative Findings: 1. 17 x 14 cm incisional and parastomal hernia 2. 3mm enterotomy, repaired with interrupted silk suture 3. Incarcerated small bowel in parastomal hernia, reduced using blunt and sharp dissection 4. Lysis of adhesions for > 150 minutes 5. Parastomal hernia closed primarily, then biologic/Strattice mesh used to cover defect and incisional hernia. Fascia closed primarily over mesh 6. 2 drains left in subq tissue 7. Appendectomy performed Hospital Course: Adrien Cheung was taken to the operating room where the above procedures were performed. He tolerated the operation well and without complication. He was admitted post-operatively for clinical monitoring and further management. Over the course of 4 days the patient began to have co lostomy output. His NG tube was removed and he was advanced from n.p.o. to a carb controlled diet, which he tolerated without complication. On postoperative day 4 the patient's fentanyl PCEA was discontinued and he was successfully transitioned to p.o. pain medication. PT and OT evaluated the patient and recommended home with assist. Patient was seen by ostomy care for care of his stoma. He was provided with education and instruction regarding stoma care. The patient more abdominal binder whileup in the chair and ambulating to help prevent hernia recurrence. His hospital course on the floor was significant for the followin. Acute occlusive DVT in the common femoral vein, saphenofemoral junction, proximal profunda femoris vein, femoral vein throughout the thigh popliteal vein, posterior tibial veins, peroneal veins and gastrocnemius vein as found right lower extremity duplex postoperative day 5 after patient found to have swollen right lower extremity. Vascular surgery was consulted and recommended a therapeutic heparin drip as well as DANNY banding of the right lower extremity. Thrombolytics were contraindicated due to the patient's recent surgery and use of mesh. His outpatient anticoagulant regimen was started and included 7 days of 10 mg of Eliquis twice daily followed by 5 mg of Eliquis twice daily for 3 m onths; duration of anticoagulation dictated by vascular surgery as this was a provoked DVT. 2. Hyperglycemia secondary to type 2 diabetes; able to be managed with sliding scale insulin and carb control diet. Patient met with [facility]'s dietitian regarding his diet 3. Total parenteral nutrition. The patient received a PICC TPN prior to his operation given his prolonged limited intake of p.o. he was continued on TPN upon admission through postoperative day 4 andan attempt to facilitate adequate wound healing. The patient had mild protein calorie malnutrition. 4. Respiratory therapy. Given the extensive incision the patient had an risk for severe splinting, respiratory therapy was consulted to provide additional support and therapy including PEP therapy and aggressive use the incentive spirometer to prevent pneumonia. 5. Acute kidney injury - upon admission to the hospital the patient had a creatinine greater than 3-after a Uriarte was placed and the patient was resuscitated with crystalloid fluids his creatinine dramatically improved. The patient reported that in the weeks leading up to this admission he was having increasing obstructive urinary symptoms he straight cathed once at home and performs regular urination throughout the day during this admission the patient was instructed to cath himself at least every 6 hours. Adhering to this regimen the patient's creatinine remains stable throughout the admission. 6. Hypotension - upon admission to the hospital the patient was found to be hypotensive. He was adequately resuscitated with crystalloid fluid and his blood pressures responded accordingly. His hypotension was likely secondary to decreased p.o. intake and nausea vomiting at home. 7. Acute blood loss anemia -likely secondary in part to surgery; patient did not require a transfusion On postoperative day 7 the patient was tolerating a carb controlled diet, having gas and stool in his ostomy, ambulating without assistance and had his pain well controlled. His left MARIEL was removed due to low output. His right MARIEL was maintained due to persistently high output. He was subsequently medically cleared and discharged home with assistance. He will follow-up in general surgery clinic in2 weeks for a wound check and MARIEL removal. Important Studies and Lab Data: See below. Pathology: None Microbiology: Microbiology Results (Last 30 days) No results found for the last 720 hours. Labs: No results found for: NA, K, CL, CO2, BUN, CREATININE, GLUCOSE CBC No results found for: WBC, HGB, HCT, PLATELET Pending Lab Data at Discharge: None Studies: KUB 11/03/2017 The GI contrast has reached the colon and largely cleared the partially obstructed small bowel bowel. CT Abdomen/Pelvis 10/27/2017 1. Status post abdominoperineal resection with a descending colostomy in the left lower quadrant. Aparastomal hernia containing loops of small bowel has been present since July 2017, however itis now causing a partial small bowel obstruction with dilatation of proximal loops of small bowel up to 7 cm in transverse dimension. 2. No CT evidence of perforation. 3. A right para midline ventral hernia containing nondilated loops of small bowel. This is stable in appearance. 4. Stable soft tissue in the presacral space likely post treatment fibrosis. 5. New mild dilatation of both renal collecting systems and ureters is likely secondary to the severely distended urinary bladder. Discharge Exam: Last value Range last 12 hrs Temperature Temp: 36.7 ??C (98.1 ??F) Temp: [36.7 ??C (98.1 ??F)-36.9 ??C (98.4 ??F)] Heart Rate Heart Rate: 126 (with ambulation) Heart Rate: -- Blood Pressure BP: 129/78 BP: (127-129)/(77-78) Respiratory Rate Resp: 16 Resp: [16-18] SpO2 SpO2: 96 % SpO2: [95 %-100 %] I/Os: I/O last 3 completed shifts: In: 1048 [P.O.:480; I.V.:568] Out: 2285 [Urine:2175; Other:110] I/O this shift: In: 240 [P.O.:240] Out: 525 [Urine:500; Other:25] Gen: NAD, alert & oriented x3 Pulm: CTAB, no crackles/wheezes Card: RR Abd: Non-distended, soft, appropriately tender. Wound: incision clean, dry, intact, no purulent drainage Ext: no edema, 2+ peripheral pulses Discharge Plans: Discharge to: Home VNA: Yes Discharge Conditions/Prognosis: Stable Discharge Medications: The following medications have been prescribed for you. If you notice any adverse reactions to your medications, please contact your primary care physician immediately or go tothe nearest Emergency Department. Your Medications New Medications Dose Details acetaminophen 325 mg Tab Commonly known as: TYLENOL Take 3 tablets by mouth every 6 hours as needed for Pain. 975 mg Quantity: 30 tablet Refills: 0 * apixaban 5 mg Tab Commonly known as: ELIQUIS Take 1 tablet by mouth 2 times daily. 5 mg Quantity: 30 tablet Refills: 2 * apixaban 5 mg Tab Commonly known as: ELIQUIS Take 2 tablets by mouth 2 times daily for 6 days. 10 mg Quantity: 24 tablet Refills: 0 docusate sodium 100 mg Cap Commonly known as: COLACE Take 1 capsule by mouth 2 times daily for 10 days. 100 mg Refills: 0 ibuprofen 600 mg Tab Commonly known as: ADVIL;MOTRIN Take 1 tablet by mouth every 6 hours. 600 mg Quantity: 30 tablet Refills: 12 Miscellaneous Medical Supply Misc 1 each by Misc.(Non-Drug; Combo Route) route daily. Apply to right lower extremity - thigh high 1 each Quantity: 1 each Refills: 3 * oxyCODONE 10 mg Tab Commonly known as: ROXICODONE Take 1 tablet by mouth every 4 hours. 10 mg Quantity: 24 tablet Refills: 0 * oxyCODONE 5 mg Tab Commonly known as: ROXICODONE Take 1 tablet by mouth every 4 hours as needed for Pain. Start taking on: 11/11/2017 5 mg Quantity: 8 tablet Refills: 0 * Notice: This list has 4 medication(s) that are the same as other medications prescribed for you. Read the directions carefully, and ask your doctor or other care provider to review them with you. Continued medications, unchanged Dose Details atorvastatin 40 mg Tab Commonly known as: LIPITOR Take 20 mg by mouth daily. 1/ tab= 20mg 20 mg Refills: 0 glipiZIDE 10 mg Tr24 Commonly known as: GLUCOTROL XL Take 10 mg by mouth daily. 10 mg Refills: 0 INDOMETHACIN ORAL Take by mouth. Reported on 01/01/2017 Refills: 0 JANUMET 50-1,000 mg Tab Take 1 tablet by mouth 2 times daily. Generic drug: sitaGLIPtin-metFORMIN 1 tablet Refills: 0 lisinopril 10 mg Tab Commonly known as: PRINIVIL;ZESTRIL Take 10 mg by mouth 2 times daily. 10 mg Refills: 0 multivitamin Tab Commonly known as: THERAGRAN Take 1 tablet by mouth daily. 1 tablet Refills: 0 pantoprazole 40 mg Tbec Commonly known as: PROTONIX Take 1 tablet by mouth daily. 40 mg Quantity: 90 tablet Refills: 3 Syringe with Needle (Disp) 1 mL 25 gauge x 5/8 Syrg Commonly known as: MONOJECT TB SAFETY SYRINGE 0.1 mLs by [facility].(Non-Drug; Combo Route) route as needed (use no more than 3 times a week). 0.1 mL Quantity: 25 Syringe Refills: 11 VIAGRA 100 mg Tab Take 100 mg by mouth as needed. Generic drug: sildenafil 100 mg Refills: 0 STOPPED Medications oxyCODONE-acetaminophen 5-325 mg Tab Commonly known as: PERCOCET Updated Allergies/ADRs: Allergies Allergen Reactions ??? Penicillins Rash Scheduled Appointments: Future Appointments Date Time Provider Department Center 11/18/2017 1:00 PM Lenore Baron APRN [facility] 11/18/2017 1:00 PM OSTOMY NURSE, WOUND CENTER [facility] Outpatient Services/Studies: Referral to Home Health - at DISCHARGE Order Comments: DOCUMENTATION FOR VNA SERVICES (INCLUDING THOSE PATIENTS WITH MEDICARE COVERAGE REQUIRING HOME VNA SERVICES AND/OR HOSPICE SERVICES) PATIENT'S LOCATION: Adrien Cheung [address] [facility] [address] (home) Cell: No relevant phone numbers on file. 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 In discussion with the attending physician, it is certified that this patient is under their care and that they, or a Nurse Practitioner,Clinical Nurse specialist or Physician Fish Receiver who is working directly with them, had a face to face encounter that meets the physician face to face encounter requirements with this patient on 10/30/2017 The encounter with the patient was in whole, or in part, for the following medical condition, whichis the primary reason for home health care services: surgery for small bowel obstruction and ostomycreation In discussion with the provider, it is certified that, based on their findings, the following services are medically necessary for home health services. To provide the following care/treatments with the clinical findings supporting the need for services as follows: HOME CARE ORDERS: Assess wound and prior drain sites; assist patient with ostomy care; check in with patient regarding Eliquis compliance; assess patient's right lower extremity for worsening edema/swelling; please assist with placing tedhose to the RLE or assisting the patient wrap his RLE with anACE bandage. He will do this with family help for the next two weeks. Please assist patient in measuring MARIEL drain output. Please call general surgery team when MARIEL output is less than 30cc in a 24 hour period. RN ORDERS:Assess wound or incision, vital signs, cardiopulmonary status, nutrition, hydration, elimination, meds effectiveness and management; reinforce education re health issues PT ORDERS: Continue rehab for endurance, gait stability and strength with mobility and transfers. Home safety evaluation. Home exercise program if appropriate. OT: assess and continue rehab for managing ADL's. HOME HEALTH CARE AGENCY: [facility] PHONE: [phone] FAX: [phone] Start of care: 24-48 hrs after discharge Please note that any additional orders needs or changes will need to be obtained from this patient's PCP: Randa Rosas APRN [address] / [place] [address] All VNA agencies which cover the area of patient's residence have been reviewed, either verbally jon writing, and patient/family have chosen the home health care agency noted Question Response Notes Agency name and contact information [facility] Patient location post discharge [address], [place] What services are requested Registered Nurse What services are requested Physical Therapy Responsible MD post discharge contact info PCP Instructions Given to Patient at Discharge:. An After Visit Summary was printed and given to the patient. Patient Instructions [facility] Department of General Surgery Discharge Instructions CALL YOUR PHYSICIAN'S OFFICE IF: ??? You have a fever greater than 101 degrees Farenheit (38.3C) within one month of your surgery. ? ? You have diarrhea or vomiting for >24 hours, stop having bowel movements and/or passing flatus, have pain with urination. ??? You have worsening pain, not controlled with your pain medication. ??? You develop redness, swelling, or new drainage from your wound. Medications: [x] Pain Control [x] Non-narcotic pain medication - We recommend alternating with tylenol 650mg and ibuprofen 400-600mg every 6 hours (ie; tylenol at12pm, ibuprofen 3pm, tylenol 6pm, ibuprofen 9pm). - Do not take more than 4,000mg (4g) of tylenol in 24hours. [x] Narcotic pain medication - You have been prescribed 24 tablets of 10 mg of oxycodone. This is a narcotic medication that hasseveral side effects/warnings: 1. Constipation: Narcotics can cause severe constipation. Please take BOTH a stool softener and pro-motility/laxative agent whenever taking narcotics, unless otherwise advised. These are over the counter. (Stool Softeners: Colace, Surfak. Laxatives/Stimulants: Miralax, Milk of Magnesia, Senna, Bisacodyl). 2. Altered mental status: Narcotics can make you sleepy and have delayed reactions. Therefore, do not drive or operate any heavy machinery while taking narcotics. 3. Addictive: Narcotics are addictive. Please take as prescribed and wean down/decrease your dose as soon as you can tolerate. 4. Restricted: Narcotics are highly regulated. If you are running out of your prescription and feelyou will need more, plan ahead and call your Physician as these cannot be filled electronically or at night/over the weekend. Again, as your pain decreases, reduce your use of these medications. You do not need to use all of the pills provided. [x] Other Medication(s) - The remainder of your medications are listed in the first section of the After Visit Summary. Driving Restrictions: - No driving if you are too sore from surgery to enter or exit your vehicle comfortably, or if you are too sore to easily check your blind spot. No driving while using narcotic pain medications. Shower: - It is ok to shower today. You can shower per usual routine and let soapy water run over your incision. Pat incision dry with a clean, dry towel. Do not submerge the wound under water (no swimming or soaking) for at least 6 weeks, or until approved by your surgeon. Diet: [x] You have been cleared to resume your regular carb control diet - We recommend eating a regular healthy diet (ie; fresh fruits, vegetables and fiber-containing foods will assist in wound healing,) Activity: - It is normal to feel tired after surgery/hospitalization. Be as active as tolerated as this will improve recovery and prevent blood clots. - You should avoid any heavy lifting for 4 weeks after surgery. A galloon of milk is a good estimate of the maximum you should be lifting while your wounds heal. -We recommend taking several slow, short walks each day for the first two weeks, and gradually increase your distance. We recommend at least 4 times a day. Wound/Incision Care: Closure: Your skin incision is closed with Steristrips covering your skin, which are strips of white tape that should fall off after ~10 days (if not, please remove manually). You may shower with them on. Infection: Observe for changes and alert the clinic if new/worsening redness or drainage. Things to avoid: Do not use creams, oils, or ointments on the wound. Keep wound open to air if it is not draining. Blood Clot: During this admission you were diagnosed with a blood clot in your right leg. You will be on medication for this for three months. Please wear you tedhose or wrap you right leg with an DANNY bandage daily for the next two weeks to reduce the swelling in this leg. Lines/Drains/Tubes: [x] You are being discharged with a MARIEL drain(s). Please see the instructions below for details Ostomy Care: [x] You are being discharged with a old ostomy. Instructions on maintenance, diet, and recording output are detailed below in the multidisciplinary instructions Who to call? If you have concerns or questions: - During the day, it is best to call the [facility] to speak with the Surgery nurses. The number is [phone]. - During the night or weekends call the [facility] scanner operator at [phone] and ask to speak to the surgery resident production administrator for general surgery. Please note: Your surgeon may not be Profile Grinder, especially during the night or on weekends, so be ready to describe yourself and your surgery when you call. Follow up appointments: Future Appointments Date Time Provider Department Center 11/18/2017 1:00 PM Lenore Baron APRN [facility] 11/18/2017 1:00 PM OSTOMY NURSE, WOUND C[facility] [x] Follow-up appointment with General Surgery has already been scheduled [] A request for a follow-up appointment has been made and you should receive information via phone/mail in the next week. If you do not hear anything, please call the clinic at [phone] to confirm or reschedule. If you need a prior authorization, please call the General Surgery Clinic nurses [phone] for prior authorizations assistance MARIEL DRAIN CARE INSTRUCTIONS Drains help to keep fluid from collecting by removing the extra blood and fluid from under the skin. A drain is temporary. It stays in place until the drainage has slowed down or stopped. Your doctor or nurse will decide when each drain should be removed: This is usually after each drain has 30cc or less in 24 hours for 2 days in a row. When this happens, you should call the Clinic to schedule an appointment with the nurses to have it/them removed, or have the Visiting Nurses remove this when they arrive for the day. This is usually not painful and only takes a few seconds. How do I care for the drains at home? Pin your drains to your clothing by using a safety pin through the plastic loop on the top of the bulb. If the drain is not attached to your clothing, it may pull out from under your skin. Also, a drain usually feels more comfortable when it???s attached. To care for the drain at home, you will have to empty the drain, ???strip?? the drain tubing, and changethe dressing if applicable. * See the following pages for instructions on how to do this. What problems may I have with my drain? The bulb is not compressed- The bulb may not be squeezed tightly enough, the plug may not be closed securely, or the tube has slipped out a bit and is leaking. Follow the instructions on how to empty the drain. If the bulb remains expanded, then notify your doctor or nurse during business hours. ??? No drainage or sudden decrease in amount of drainage- This is usually due to clots in the drain. Follow the instructions on how to strip the drain tubing. ??? The tube accidentally falls out- If this happens, place a dry gauze dressing over the drain site and notify your doctor or nurse during business hours. ??? Increased redness, swelling, or heat around the tube insertion site- This may be a sign of infection. Take your temperature: if it is higher than 101F or 38.8C, call your doctor or nurse immediately. Otherwise, notify your doctor or nurse during business hours and keep the dressing clean and dry. Post-Surgical Drain Care After surgery, you will have one or two drains, called a Dev-Garibay (MARIEL) drain, placed near the incision. This device collects fluid, under suction, from your surgical area. The drain promotes healing and recovery, and reduces the chance of infection. The drain will be in place until the drainage slows enough for your body to reabsorb fluid on its own. While you are hospitalized the nursing staff will care for the drain and teach you to continue to do so at home. How to Empty Your MARIEL Drain Note: Wash your hands thoroughly before emptying your drain(s). 1. Have the plastic measuring cup from the hospital ready to collect and measure the drainage. Please measure the output at the same two times every 24 hours and record the amount. 2. Unpin the drain from your clothing. 3. Open the top of the drain. Turn the drain upside down and squeeze the contents of the bulb into the measuring cup. Be sure to empty the bulb as completely as possible. Flush the contents in the toilet. 4. Use the drain output log chart to record the amount of drainage twice a day or any time the bulbis full. Record the total for 24 hours for each drain you have. 5. If you have more than one drain, remember to record the drainage from each drain separately. 6. To prevent infection, do not let the stopper or top of the bottle touch the measuring cup or anyother surface. 7. Use one hand to squeeze all of the air from the drain. With the drain still squeezed, use your other hand to replace the top. This creates the suction necessary to remove the fluids from your body. 8. Pin the drain back on your clothing to avoid pulling it out accidently. 9. Wash your hands again. Remember to wash your hands before and after the procedure to reduce the risk of infection. Stripping the Tube Often products of healing will not flow out of the narrow tube and prevent proper draining. If you do not have drainage, then: ??? Hold the tube near where it is inserted in to the skin with your one hand. ??? Use the other hand to hold a pencil and gently squeeze the tubing with the pencil while moving it down toward the drain away from your skin. This forces the more sold material into the bulb for better drainage. ??? Repeat as necessary to start the draining again. Removal of the Tube ??? The tube may be removed once a single tube output is less than 30cc (1 oz.) in 24 hours. ??? Please call the office if the output becomes thicker or has a bad odor. Dev-Garibay Drainage Record NAME: Date of Surgery: Date: Time: If more than one drain, which one: Drainage Amount (per drain) Total Amount (per drain; in 24 hours) General Instructions Esha Clark RN Registered Nurse Signed Wound Care Team Consult Note Date of Service: 10/29/2017 ??4:46 PM []Hide copied text []Gris for attribution information Ileostomy/Colostomy Pouching: ?? Inlet 2-piece pouch ? Name: Adrien Marie Type of Ostomy: colostomy ?? Use this procedure as a guide when changing your appliance. Read all instructions, assemble all equipment, and empty contents from pouch before beginning actual change. If you have questions, do not hesitate to call the Ostomy Nurses at [phone]. ? Equipment: Company/Order Numbers ?? Wet and dry soft cloth (paper towels) Plastic bag Pen, Scissors, stoma pattern Pouch, transparent, Lock 'n roll Inlet 2 12/03 #15631 ?? Wafer, CeraPlus Inlet 2 12/03 #06400 ?? Adapt Powder Lexx #7906 Adapt Paste Lexx #74208 Nosting Skin Barrier Wipe [facility] #[id number] ?? Barrier rings Inlet # 3392 Non-allergic tape (4 strips) [employer] paper tape if necessary Liquid Deodorant Inlet M9 #5401 Other Supplies (if any) ? Procedure: 1. Using pattern, trace stoma size on back of wafer and cut out tracing. 2. Place wafer in a warm place to make it more pliable. 3. Remove old pouch and wafer from skin and discard in plastic bag. 4. Wash skin and stoma with warm water and pat skin dry. 5. Examine skin and stoma for any irritation. If skin irritation present, apply a dusting of Adapt protective powder. [place] off excess powder, or wafer will not adhere. Seal the powder in by applyinga Nosting Skin Barrier Wipe. 6. Remove paper backing from wafer. If needed apply small bead of adapt paste Around wafer hole. If using barrier ring apply ring around wafer hole and press In place. 7. Apply wafer to skin being sure to center over stoma. Press down firmly, first in center closest to stoma and then outer edges. Once you have the center well sealed you may remove paper backing from adhesive on the outer edges. 8. To attach pouch to wafer flange: ?? angle bottom of pouch as desired. ?? position the top of the pouch flange onto wafer flange. ?? starting at the bottom, apply gentle pressure around the curcumference of the pouch flange untilit feels secure to the flange on the wafer. You should feel or hear the pouch click into a secure position and a gentle tug all the way around will convirm that the pouch is firmly attached. 9. Close the Lock 'n roll closure. 10. Picture frame (apply 1-piece of tape to each side of the wafer) with waterproof tape when showering, bathing or swimming (optional). 11. To remove old pouch from wafer, pull away from the wafer using the tab at the top of the flangeon the pouch, maintain gentle pressure on the wafer as the pouch is pulled away. ? Changing Schedule: twice a week Please call insurance company (if needed) to request a list of preferred vendors for ordering ostomy supplies and call us if need to request prescription to be sent to vendor. Always bring supplies needed for a pouch change when you come in for your clinic visits, or into the hospital. ?? Pharmacy or Medical Supply: How to obtain Ostomy Supplies: New Ostomy patients will be discharged home with 4 pouch changes. ?? Medicare patients who are to be discharged home with Visiting Nurses(VNA) will have their Ostomy supplies ordered by VNA until they discontinue care. Once you are discharged from VNA/Homecare Nursingproceed with calling Insurance company to get preferred vendor (below) ?? Non Medicare patients please call your Insurance company and request a list of Preferred Ostomy Vendors/Suppliers that they allow. You may then call one of those vendors (several listed below) and proceed to set up an account with them.* When calling the vendor be prepared to answer the followingquestions: ?? -Insurance name and Account # -Date of Surgery -Type of Ostomy (Colostomy, Ileostomy or Urostomy) -order #'s for ALL supplies you are using -Name of Surgeon and telephone number ? [facility] ([email or web address]) Quality Assurance Specialist: Hemalatha Bradley [phone] ?? [employer] (www.[employer]) ?? [employer]enSa ([employer]ifter[employer]) ?? [employer] ([email or web address].bazinga! [email or web address].net) ?? [employer] ([employer]) ?? *If you wear Gabstr products and are having a difficult time finding a vendor that will accept your Insurance you may call Inlet at . They have a team of 30 Insurance experts whowill help you find a vendor that can bill your Insurance Company. Remember, if they need to return your call expect a call from [facility], in case you are screening your calls. ?? Insurance companies require that the prescription or order for ostomy supplies be renewed annually. You need to get this prescription renewed by your Primary Care Provider. You will need to give your PCP the name and order #'s of all supplies you use. Some vendors will fax the order to your PCP. Follow-up Recommendations for Providers: Medication changes: Patient's outpatient anticoagulation plan will include Eliquis 10 mg twice daily for 7 days followed by Eliquis 5 mg twice daily for 3 months. Duration of anticoagulation determined by vascular surgery due to provoked DVT after surgery. CC: Randa Rosas APRN Signed: Mark Brito MD Acute Care Surgery Team Pager #[phone] 11/05/2017 12:03 PM documented in this encounter Discharge Instructions * Discharge Instructions* Esha Clark RN - 10/29/2017 4:48 PM EST Images from the original note were not included. Esha Clark RN Registered Nurse Signed Wound Care Team Consult Note Date of Service: 10/29/2017 ??4:46 PM []Hide copied text []Hover for attribution information Ileostomy/Colostomy Pouching: ?? Inlet 2-piece pouch ? Name: Adrien Cheung Type of Ostomy: colostomy ?? Use this procedure as a guide when changing your appliance. Read all instructions, assemble all equipment, and empty contents from pouch before beginning actual change. If you have questions, do not hesitate to call the Ostomy Nurses at [phone]. ? Equipment: Company/Order Numbers ?? Wet and dry soft cloth (paper towels) Plastic bag Pen, Scissors, stoma pattern Pouch, transparent, Lock 'n roll Lexx 2 12/03 #58849 ?? Wafer, CeraPlus Lexx 2 12/03 #36887 ?? Adapt Powder Lexx #7906 Adapt Paste [place] #79463 Nosting Skin Barrier Wipe [employer] #666845 ?? Barrier rings Lexx # 2368 Non-allergic tape (4 strips) [employer] paper tape if necessary Liquid Deodorant Inlet M9 #4538 Other Supplies (if any) ? Procedure: 1. Using pattern, trace stoma size on back of wafer and cut out tracing. 2. Place wafer in a warm place to make it more pliable. 3. Remove old pouch and wafer from skin and discard in plastic bag. 4. Wash skin and stoma with warm water and pat skin dry. 5. Examine skin and stoma for any irritation. If skin irritation present, apply a dusting of Adapt protective powder. [place] off excess powder, or wafer will not adhere. Seal the powder in by applyinga Nosting Skin Barrier Wipe. 6. Remove paper backing from wafer. If needed apply small bead of adapt paste Around wafer hole. If using barrier ring apply ring around wafer hole and press In place. 7. Apply wafer to skin being sure to center over stoma. Press down firmly, first in center closest to stoma and then outer edges. Once you have the center well sealed you may remove paper backing from adhesive on the outer edges. 8. To attach pouch to wafer flange: ?? angle bottom of pouch as desired. ?? position the top of the pouch flange onto wafer flange. ?? starting at the bottom, apply gentle pressure around the curcumference of the pouch flange untilit feels secure to the flange on the wafer. You should feel or hear the pouch click into a secure position and a gentle tug all the way around will convirm that the pouch is firmly attached. 9. Close the Lock 'n roll closure. 10. Picture frame (apply 1-piece of tape to each side of the wafer) with waterproof tape when showering, bathing or swimming (optional). 11. To remove old pouch from wafer, pull away from the wafer using the tab at the top of the flangeon the pouch, maintain gentle pressure on the wafer as the pouch is pulled away. ? Changing Schedule: twice a week Please call insurance company (if needed) to request a list of preferred vendors for ordering ostomy supplies and call us if need to request prescription to be sent to vendor. Always bring supplies needed for a pouch change when you come in for your clinic visits, or into the hospital. ?? Pharmacy or Medical Supply: How to obtain Ostomy Supplies: New Ostomy patients will be discharged home with 4 pouch changes. ?? Medicare patients who are to be discharged home with Visiting Nurses(VNA) will have their Ostomy supplies ordered by VNA until they discontinue care. Once you are discharged from VNA/Homecare Nursingproceed with calling Insurance company to get preferred vendor (below) ?? Non Medicare patients please call your Insurance company and request a list of Preferred Ostomy Vendors/Suppliers that they allow. You may then call one of those vendors (several listed below) and proceed to set up an account with them.* When calling the vendor be prepared to answer the followingquestions: ?? -Insurance name and Account # -Date of Surgery -Type of Ostomy (Colostomy, Ileostomy or Urostomy) -order #'s for ALL supplies you are using -Name of Surgeon and telephone number ? [employer] (www.[employer]) Quality Assurance Specialist: Hemalatha Bradley [phone] ?? [employer] (wwwBioMedomics) ?? [employer]XenSa ([employer]) ?? [employer] (Texifter.bazinga! Technologies.[employer]) ?? [employer] ([employer]) ?? *If you wear Gabstr products and are having a difficult time finding a vendor that will accept your Insurance you may call Gab[employer] at . They have a team of 30 Insurance experts whowill help you find a vendor that can bill your Insurance Company. Remember, if they need to return your call expect a call from [facility], in case you are screening your calls. ?? Insurance companies require that the prescription or order for ostomy supplies be renewed annually. You need to get this prescription renewed by your Primary Care Provider. You will need to give your PCP the name and order #'s of all supplies you use. Some vendors will fax the order to your PCP. * Patient Instructions* Mark Brito MD - 11/04/2017 4:13 PM EST Images from the original note were not included. [facility] Department of General Surgery Discharge Instructions CALL YOUR PHYSICIAN'S OFFICE IF: ??? You have a fever greater than 101 degrees Farenheit (38.3C) within one month of your surgery. ? ? You have diarrhea or vomiting for >24 hours, stop having bowel movements and/or passing flatus, have pain with urination. ??? You have worsening pain, not controlled with your pain medication. ??? You develop redness, swelling, or new drainage from your wound. Medications: [x] Pain Control [x] Non-narcotic pain medication - We recommend alternating with tylenol 650mg and ibuprofen 400-600mg every 6 hours (ie; tylenol at12pm, ibuprofen 3pm, tylenol 6pm, ibuprofen 9pm). - Do not take more than 4,000mg (4g) of tylenol in 24hours. [x] Narcotic pain medication - You have been prescribed 24 tablets of 10 mg of oxycodone. This is a narcotic medication that hasseveral side effects/warnings: 1. Constipation: Narcotics can cause severe constipation. Please take BOTH a stool softener and pro-motility/laxative agent whenever taking narcotics, unless otherwise advised. These are over the counter. (Stool Softeners: Colace, Surfak. Laxatives/Stimulants: Miralax, Milk of Magnesia, Senna, Bisacodyl). 2. Altered mental status: Narcotics can make you sleepy and have delayed reactions. Therefore, do not drive or operate any heavy machinery while taking narcotics. 3. Addictive: Narcotics are addictive. Please take as prescribed and wean down/decrease your dose as soon as you can tolerate. 4. Restricted: Narcotics are highly regulated. If you are running out of your prescription and feelyou will need more, plan ahead and call your Physician as these cannot be filled electronically or at night/over the weekend. Again, as your pain decreases, reduce your use of these medications. You do not need to use all of the pills provided. [x] Other Medication(s) - The remainder of your medications are listed in the first section of the After Visit Summary. Driving Restrictions: - No driving if you are too sore from surgery to enter or exit your vehicle comfortably, or if you are too sore to easily check your blind spot. No driving while using narcotic pain medications. Shower: - It is ok to shower today. You can shower per usual routine and let soapy water run over your incision. Pat incision dry with a clean, dry towel. Do not submerge the wound under water (no swimming or soaking) for at least 6 weeks, or until approved by your surgeon. Diet: [x] You have been cleared to resume your regular carb control diet - We recommend eating a regular healthy diet (ie; fresh fruits, vegetables and fiber-containing foods will assist in wound healing,) Activity: - It is normal to feel tired after surgery/hospitalization. Be as active as tolerated as this will improve recovery and prevent blood clots. - You should avoid any heavy lifting for 4 weeks after surgery. A galloon of milk is a good estimate of the maximum you should be lifting while your wounds heal. -We recommend taking several slow, short walks each day for the first two weeks, and gradually increase your distance. We recommend at least 4 times a day. Wound/Incision Care: Closure: Your skin incision is closed with Steristrips covering your skin, which are strips of white tape that should fall off after ~10 days (if not, please remove manually). You may shower with them on. Infection: Observe for changes and alert the clinic if new/worsening redness or drainage. Things to avoid: Do not use creams, oils, or ointments on the wound. Keep wound open to air if it is not draining. Blood Clot: During this admission you were diagnosed with a blood clot in your right leg. You will be on medication for this for three months. Please wear you tedhose or wrap you right leg with an DANNY bandage daily for the next two weeks to reduce the swelling in this leg. Lines/Drains/Tubes: [x] You are being discharged with a MARIEL drain(s). Please see the instructions below for details Ostomy Care: [x] You are being discharged with a old ostomy. Instructions on maintenance, diet, and recording output are detailed below in the multidisciplinary instructions Who to call? If you have concerns or questions: - During the day, it is best to call the General Surgery Clinic to speak with the Surgery nurses. The number is [phone]. - During the night or weekends call the [facility] scanner operator at [phone] and ask to speak to the surgery resident production administrator for general surgery. Please note: Your surgeon may not be Profile Grinder, especially during the night or on weekends, so be ready to describe yourself and your surgery when you call. Follow up appointments: Future Appointments Date Time Provider Department Center 11/18/2017 1:00 PM Lenore Baron APRN [facility] 11/18/2017 1:00 PM OSTOMY NURSE, WOUND CENTER [facility] [x] Follow-up appointment with General Surgery has already been scheduled [] A request for a follow-up appointment has been made and you should receive information via phone/mail in the next week. If you do not hear anything, please call the clinic at [phone] to confirm or reschedule. If you need a prior authorization, please call the General Surgery Clinic nurses [phone] for prior authorizations assistance MARIEL DRAIN CARE INSTRUCTIONS Drains help to keep fluid from collecting by removing the extra blood and fluid from under the skin. A drain is temporary. It stays in place until the drainage has slowed down or stopped. Your doctor or nurse will decide when each drain should be removed: This is usually after each drain has 30cc or less in 24 hours for 2 days in a row. When this happens, you should call the Clinic to schedule an appointment with the nurses to have it/them removed, or have the Visiting Nurses remove this when they arrive for the day. This is usually not painful and only takes a few seconds. How do I care for the drains at home? Pin your drains to your clothing by using a safety pin through the plastic loop on the top of the bulb. If the drain is not attached to your clothing, it may pull out from under your skin. Also, a drain usually feels more comfortable when it???s attached. To care for the drain at home, you will have to empty the drain, ???strip?? the drain tubing, and changethe dressing if applicable. * See the following pages for instructions on how to do this. What problems may I have with my drain? The bulb is not compressed- The bulb may not be squeezed tightly enough, the plug may not be closed securely, or the tube has slipped out a bit and is leaking. Follow the instructions on how to empty the drain. If the bulb remains expanded, then notify your doctor or nurse during business hours. ??? No drainage or sudden decrease in amount of drainage- This is usually due to clots in the drain. Follow the instructions on how to strip the drain tubing. ??? The tube accidentally falls out- If this happens, place a dry gauze dressing over the drain site and notify your doctor or nurse during business hours. ??? Increased redness, swelling, or heat around the tube insertion site- This may be a sign of infection. Take your temperature: if it is higher than 101F or 38.8C, call your doctor or nurse immediately. Otherwise, notify your doctor or nurse during business hours and keep the dressing clean and dry. Post-Surgical Drain Care After surgery, you will have one or two drains, called a Dev-Garibay (MARIEL) drain, placed near the incision. This device collects fluid, under suction, from your surgical area. The drain promotes healing and recovery, and reduces the chance of infection. The drain will be in place until the drainage slows enough for your body to reabsorb fluid on its own. While you are hospitalized the nursing staff will care for the drain and teach you to continue to do so at home. How to Empty Your MARIEL Drain Note: Wash your hands thoroughly before emptying your drain(s). 1. Have the plastic measuring cup from the hospital ready to collect and measure the drainage. Please measure the output at the same two times every 24 hours and record the amount. 2. Unpin the drain from your clothing. 3. Open the top of the drain. Turn the drain upside down and squeeze the contents of the bulb into the measuring cup. Be sure to empty the bulb as completely as possible. Flush the contents in the toilet. 4. Use the drain output log chart to record the amount of drainage twice a day or any time the bulbis full. Record the total for 24 hours for each drain you have. 5. If you have more than one drain, remember to record the drainage from each drain separately. 6. To prevent infection, do not let the stopper or top of the bottle touch the measuring cup or anyother surface. 7. Use one hand to squeeze all of the air from the drain. With the drain still squeezed, use your other hand to replace the top. This creates the suction necessary to remove the fluids from your body. 8. Pin the drain back on your clothing to avoid pulling it out accidently. 9. Wash your hands again. Remember to wash your hands before and after the procedure to reduce the risk of infection. Stripping the Tube Often products of healing will not flow out of the narrow tube and prevent proper draining. If you do not have drainage, then: ??? Hold the tube near where it is inserted in to the skin with your one hand. ??? Use the other hand to hold a pencil and gently squeeze the tubing with the pencil while moving it down toward the drain away from your skin. This forces the more sold material into the bulb for better drainage. ??? Repeat as necessary to start the draining again. Removal of the Tube ??? The tube may be removed once a single tube output is less than 30cc (1 oz.) in 24 hours. ??? Please call the office if the output becomes thicker or has a bad odor. Dev-Garibay Drainage Record NAME: Date of Surgery: Date: Time: If more than one drain, which one: Drainage Amount (per drain) Total Amount (per drain; in 24 hours) * Attachments The following attachments cannot be sent through Care Everywhere. * ABDOMINAL HERNIA REPAIR: POST-OP (MONEGASQUE) documented in this encounter Medications at Time of Discharge Medication Sig Dispensed Refills Start Date End Date apixaban (ELIQUIS) 5 mg Tablet Take 1 tablet by mouth 2 times daily. 30 tablet 2 11/04/2017 atorvastatin (LIPITOR) 40 mg tablet Take 40 mg by mouth daily. glipiZIDE (GLUCOTROL) 10 mg 24 hr tablet Take 10 mg by mouth 2 times daily. multivitamin (THERAGRAN) tablet Take 1 tablet by mouth daily. ciprofloxacin (CIPRO) 250 mg Tablet 10/21/2017 08/03/2020 Miscellaneous Medical Supply [facility] 1 each by [facility].(Non-Drug; Combo Route) route daily. Apply to right lower extremity - thigh high 1 each 3 11/05/2017 08/03/2020 oxyCODONE (ROXICODONE) 5 mg Tablet Take 1 tablet by mouth every 4 hours as needed for Pain. 8 tablet 11/11/2017 11/18/2017 apixaban (ELIQUIS) 5 mg Tablet Take 2 tablets by mouth 2 times daily for 6 days. 24 tablet 11/04/2017 11/10/2017 docusate sodium (COLACE) 100 mg Capsule Take 1 capsule by mouth 2 times daily for 10 days. 11/04/2017 11/14/2017 acetaminophen (TYLENOL) 325 mg Tablet Take 3 tablets by mouth every 6 hours as needed for Pain. 30 tablet 11/04/2017 08/03/2020 ibuprofen (ADVIL;MOTRIN) 600 mg Tablet Take 1 tablet by mouth every 6 hours. 30 tablet 12 11/04/2017 01/31/2022 oxyCODONE (ROXICODONE) 10 mg Tablet Take 1 tablet by mouth every 4 hours. 24 tablet 11/04/2017 11/18/2017 pantoprazole (PROTONIX) 40 mg Tablet, Delayed Release (E.C.) Take 1 tablet by mouth daily. 90 tablet 3 09/01/2017 08/03/2020 JANUMET 50-1,000 mg Tablet Take 1 tablet by mouth 2 times daily. 08/18/2017 12/05/2022 Syringe with Needle, Disp, (MONOJECT TB SAFETY SYRINGE) 1 mL 25 x 5/8 SyrgIndications:Male erectile dysfunction 0.1 mLs by [facility].(Non-Drug; Combo Route) route as needed (use no more than 3 times a week). 25 Syringe 11 05/09/2014 08/03/2020 lisinopril (PRINIVIL;ZESTRIL) 10 mg tablet Take 10 mg by mouth 2 times daily. 01/31/2022 sildenafil (VIAGRA) 100 mg tablet Take 100 mg by mouth as needed. 11/18/2017 INDOMETHACIN ORAL Take by mouth. Reported on 01/01/2017 08/03/2020 documented as of this encounter Progress Notes * Courtney Mcleod RN - 11/05/2017 12:44 PM EST IV removed, site benign. My assessment remains unchanged from my previous assessment. Patient denies chest pain or SOB. Discussed pain management. Patient medicated before discharge. Patient has all belongings and has received discharge summary. Summary reviewed and all questions answered. Patient e ncouraged to call with any further questions or concerns. Patient discharged to home with son. Discharge packet and prescriptions sent home with patient. Educated on drain care and TEDs. [facility]charge summary faxed to [facility]. [facility] called. * Cherri Freeman RN - 11/05/2017 8:35 AM EST Patient Guidelines for Self-Care after PICC (Peripherally Inserted Central Catheter) Removal Your PICC was removed on 11/05/17 at 0830 An antibiotic ointment was applied to the insertion site (where the PICC went into your skin). __xx____Betadine ointment was used (a dark reddish brown color, and should not be confused with blood) Bacitracin ointment was used. (a clear ointment). The nurse applied gauze and a transparent ( see-through) dressing over the insertion site. To help your PICC insertion site heal: *Avoid heavy lifting (for example, no more than a gallon of milk) or vigorous activities for 24 hours * Keep the dressing over the insertion site dry for 24 hours * You can remove the dressing after 24 hours. Call your doctor after your PICC has been removed if you experience any of the following: * Fever (temperature over 100.1F) * Chills * Drainage from the insertion site ( including bleeding). Remember the Betadine antibiotic ointment, if used, was to protect your skin when the PICC was removed, can look like blood! *Redness, warmth, pain, swelling, or a pink/red streak going up your arm *A knot at the insertion site or anywhere in the arm *If bleeding should occur, hold firm pressure for 3-5 minutes. Do not remove the dressing that the nurse put on when the PICC was removed.. If needed, apply another dressing over the first dressing. If bleeding does not stop, call or seek medical attention. Reviewed with pt and all questions answered * Chula Meyer RN - 11/04/2017 1:32 PM EST Pt d/c delayed due to DVT of RLE and currently on heparin gtt. Pt will need anti-coag at d/c. (Alisha) submitted Rx for Elaquis to out-pt pharm at RN CM urging to confirm out of pocket cost buttermaker (expected duration of therapy 12 months). Pharmacy ran script through insurance ([employer]) and no co-pay. Pt will be d/c with elaquis. CM to see on day of d/c to confirm home care needs and amend orders appropriately. * Liss Price MD - 11/04/2017 12:16 PM EST General Surgery Resident Inpatient Progress Note ID: Adrien Cheung is a 62 y.o. 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 He denies fever, chills, diarrhea, dysuria, cough, sore throat, any sick contacts or any other symptoms. He has an appetite but cannot tolerate food or liquids well. Hewas recently admitted for similar symptoms and partial SBO 08/24/17-09/01/17 and was treated conservatively with NGT decompression and had ROBF. POD5 after incisional and parastomal hernia repair. 24hr events/Subjective: ?? Extensive, acute, occlusive DVT of RLE; started on Heparin gtt & vascular consult placed, right lower extremity wrapped with Danny bandage ?? Up and ambulating without assistance denies chest pain, shortness of breath, fevers, chills, nausea, vomiting ?? Left MARIEL removed on rounds O: Last value Range last 24hrs Temperature Temp: 37 ??C (98.6 ??F) Temp: [36.7 ??C (98.1 ??F)-37 ??C (98.6 ??F)] Heart Rate Heart Rate: 126 (with ambulation) Heart Rate: -- Blood Pressure BP: 124/74 BP: (124-140)/(74-78) Respiratory Rate Resp: 16 Resp: [16-17] SpO2 SpO2: 94 % SpO2: [94 %-96 %] 11/03 0701 - 11/04 0700 In: 558 [P.O.:150; I.V.:408] Out: 1860 [Urine:1800] Colostomy: 500cc RJP - 45 cc LJP - 15 cc Physical Exam: General: NAD HEENT: PERRL CVS: RRR Pulm: No acute respiratory distress Abd: soft, non-tender, mildly distended. Stoma with stool and gas present Skin: warm, dry Ext: RLE swollen and edematous Neuro: CN 2-12 grossly intact, nonfocal,moving all four extremities spontaneously Recent Labs 11/04/17 0930 11/04/17 0240 11/03/17 1835 11/03/17 1108 11/02/17 0420 11/02/17 0321 WBC -- 8.1 8.8 9.2 6.8 6.6 HGB -- 9.3* 10.0* 10.7* 9.2* 9.1* HCT -- 28.4* 29.6* 32.5* 27.7* 27.1* PLATELET -- 193 181 166 132* 123* PTT 104* 73* >160* 28 -- -- Recent Labs 11/02/17 0420 NA 145 K 4.4 CL 106 CO2 26 BUN 21* CREATININE 0.45* GLUCOSE 178 CALCIUM 7.5* MAGNESIUM 0.68* PHOS 3.7 NEW IMAGING: ?? KUB 10/28/2017 - GI contrast has reached the colon and largely cleared the partially obstructed small bowel ASSESSMENT: Adrien Cheung is a 62 y.o. male with pSBO in setting of midline and severe parastomal hernia. He is progressing well clinically, but has elected for operative repair of his hernia at this time as this issue will reoccur. POD 6 after incisional and parastomal hernia repair. Yesterday, started on Heparin gtt for extensive RLE DVT. Leg wrapped with DANNY bandage. Per Vascular, okay to transition to oral anticoagulation for three months today. Starting Eliquis 10 mg twice daily for 7 days, transitioning to 5 mg of Eliquis twice daily for 3 months. Patient will be medically ready for discharge home with [facility]NA services tomorrow. PLAN: NEURO: faith tylenol, oxycodone PRN, Advil PRN. CV: Home lisinopril & Lipitor; RLE DVT PULM: Aggressive IS, PEP therapy. GI: Regular diet : MAYNOR resolved. Q6 straight cath FEK: Regular diet ID: WBC Stable HEME: LULU ENDO: SSI; Holding home glipizide; BS under better control PROPHYLAXIS: LVX; Protonix DISPO: Floor status Mark Brito MD [facility] Pager [phone] Attending Addendum I have seen and examined the patient and reviewed the resident's history and I agree with the details as written. I have reviewed the laboratory data and viewed the pertinent imaging. The assessment and plan were formulated in discussion with me and I agree with them as documented. Heparin gtt Start coumadin but will see if direct thrombin inhibitors would be covered as this would be a better oral anticoagulant choice given his geographic location and ostomy with risk for widely varying INRs Appreciate Vasc Surg input Reg diet D/c kayy Thursday D. Alfredito Price MD * Armond Nickerson MD - 11/04/2017 6:56 AM EST Vascular Surgery Consult Progress Note Patient ID Adrien Cheung is a 62 y.o. male with history of DM, HTN, rectal adenocarcinoma (Stage IIa, T3N0) s/p APR, and known parastomal and ventral hernia who was admitted to [facility] with recurrent SBO now 6 Days Post-Op s/p extensive lysis of adhesions, reduction of incarcerated parastomal hernia, primary closure of parastomal hernia, and biologic mesh repair of incisional hernia with new RLE DVT. Subjective Pain controlled, denies nausea, vomiting, chest pain or shortness of breath. Reports RLE feels lessswollen today and has greater ROM at ankle. Objective Temp: [36.6 ??C (97.9 ??F)-36.9 ??C (98.4 ??F)] Heart Rate: -- Resp: [16-17] BP: (119-140)/(75-81) SpO2: [96 %-99 %] Heart Rate from SPO2: [74 bpm-85 bpm] Body mass index is 31.01 kg/(m^2). Intake/Output Summary (Last 24 hours) at 11/04/17 0656 Last data filed at 11/04/17 0625 Gross per 24 hour Intake 558 ml Output 1860 ml Net -1302 ml Physical Exam General: alert, cooperative, NAD HEENT: unremarkable Neck: trachea midline Heart: regular rate Pulmonary: non-labored breathing Abdomen: soft, non tender, non distended, stoma w/ gas & stool in bag, drains with serosanguinous output Neuro: no focal deficits Extremities: RLE: 1+ edema to thigh - significantly improved. Skin warm. No tissue loss. Strong DP and PT doppler signals present. Palpable femoral pulse. Motor and sensory function intact. LLE: No edema. Skin warm and pink. No tissue loss. Motor and sensory function intact. Labs Last 3 wbc, hgb, hct plt Recent Labs 11/04/17 0240 11/03/17 1835 11/03/17 1108 WBC 8.1 8.8 9.2 HGB 9.3* 10.0* 10.7* HCT 28.4* 29.6* 32.5* PLATELET 193 181 166 Last 3 Lytes Recent Labs 11/02/17 0420 10/31/17 0601 10/30/17 0500 NA 145 148* 145 K 4.4 4.6 4.7 CL 106 110* 107 CO2 26 28 29 BUN 21* 26* 24* CREATININE 0.45* 0.58* 0.62* Last Ca, Mg, Phos Recent Labs 11/02/17 0420 CALCIUM 7.5* PHOS 3.7 Last 3 Coags Recent Labs 11/04/17 0240 11/03/17 1835 11/03/17 1108 PTT 73* >160* 28 Microbiology None New Studies None Assessment & Recommendations Adrien Cheung is a 62 y.o. male 6 Days Post-Op s/p extensive ANJU and repair of parastomal and ventral hernias now with acute RLE DVT. Patient therapeutic on heparin drip and has had significant improvement in RLE swelling with combination of compression and elevation. Patient is free to ambulate but have emphasized importance of elevation when in bed or chair. Compression should be worn at all times if tolerated. Can begin to transition to oral anticoagulant at discretion of primary surgical team. As this would be considered provoked DVT patient warrants anticoagulation for 3 months. No needfor specific vascular surgery follow up. - Therapeutic heparin drip, transition to oral anticoagulation - DANNY compression from toes to thigh - Elevation of the RLE on 4-5 pillows at all times when seated or in bed ?? Consult service will continue to follow patient. ??X Recommendations are above, please page if further consultation required. ?? Marguerite. Peter Nickerson Vascular Surgery, PGY2 Pager #[phone] * Key Bell, PT - 11/03/2017 4:38 PM EST Physical Therapy Contact Note Attempted to see patient x 2 this morning, however patient unavailable. Unable to return in the afternoon. Will continue to follow and treat when available. Key Bell, PT, DPT Pager: [phone] Physical Therapy Rehabilitation Department * Lorie Diallo LD - 11/03/2017 2:41 PM EST Nutrition Initial Note Adrien Cheung is a 62 y.o. male Reason for intervention: Education Nutrition Recommendations: Recommend continuation of CHO2 diet order Patient declined need for further DM diet education at this time Encourage good PO intake Patient Active Problem List Diagnosis Code ??? Rectal cancer C20 ??? Diabetes mellitus E11.9 ??? Obesity (BMI 35.0-39.9 without comorbidity) E66.9 ??? Hypertension I10 ??? Snoring R06.83 ??? Colostomy in place Z93.3 ??? Neurogenic bladder N31.9 ??? Partial small bowel obstruction K56.600 ??? Ostomy nurse consultation Z71.89 ??? SBO (small bowel obstruction) K56.609 ??? Acute kidney injury N17.9 Past Medical History: Diagnosis Date ??? DM (diabetes mellitus) type 2 ??? ED (erectile dysfunction) ??? Gout ??? HTN (hypertension) ??? Hypercoagulable state Protein S deficiency ??? Hyperlipemia ??? Obesity ??? 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 Rectal cancer Active Orders Diet Carb Control diet / CHO counting level 2 Frequency: Effective Now Number of Occurrences: Until Specified Admit Weight: 90.1 kg Estimated body mass index is 31.01 kg/(m^2) as calculated from the following: Height as of this encounter: 170.2 cm (5' 7). Weight as of this encounter: 89.8 kg (197 lb 15.6 oz). [place] body weight: 66.1 kg (145 lb 11.6 oz) Adjusted ideal body weight: 75.6 kg (166 lb 10 oz) Estimated needs: Calories: 1750 Protein: 115 grams Today's medications: insulin, others noted Lab Results Component Value Date NA 145 11/02/2017 K 4.4 11/02/2017 CL 106 11/02/2017 CO2 26 11/02/2017 BUN 21 (H) 11/02/2017 CREATININE 0.45 (L) 11/02/2017 GLUCOSE 178 11/02/2017 MAGNESIUM 0.68 (L) 11/02/2017 CALCIUM 7.5 (L) 11/02/2017 PHOS 3.7 11/02/2017 AST 8 10/29/2017 ALT 13 10/29/2017 ALKPHOS 55 10/29/2017 BILITOT 0.4 10/29/2017 BILIDIR 0.2 10/27/2017 Last Bowel Movement: 10/27/17 Assessment: POD5 after incisional and parastomal hernia repair. Patient had colostomy performed 05/11/13 / adenocarcinoma of rectum. Patient reports that he has received DM diet education previously and declined the ana for further DM education at this time. Patient reports that his ostomy output was not good ye sterday, per documentation there was only 5 ml output and today none documented. Patient requestinga list of foods that he shouldn't eat, provided patient with Tips for Patients with Osotomy and discussed its contents. Educated patient that because his ostomy is not new, that he can be eating higher fiber foods but trying them in small amounts and it may be beneficial to trial them independantlyof one another to test their affects on him. Encouraged adequate fluid intake. Patient asked appropriate nutrition related questions, all were answered. Patient was previously on TPN that was discontinued on 10/30 per the order history. Patient's intake has not been great, documentation reports ~25% intake. Continue to monitor and encourage PO intake. ANT ABBOTT * Liss Price MD - 11/03/2017 10:27 AM EST General Surgery Resident Inpatient Progress Note ID: Adrien Cheung is a 62 y.o. 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 He denies fever, chills, diarrhea, dysuria, cough, sore throat, any sick contacts or any other symptoms. He has an appetite but cannot tolerate food or liquids well. Hewas recently admitted for similar symptoms and partial SBO 08/24/17-09/01/17 and was treated conservatively with NGT decompression and had ROBF. POD5 after incisional and parastomal hernia repair. 24hr events/Subjective: ?? GENESIS ON; VSS, afebrile; Nausea x1 overnight that was relieved with Zofran ?? 500cc bolus for low UOP ?? Epidural discontinued; pain well controlled on PO pain meds ?? Having colostomy output; tolerating regular diet ?? Swollen RLE on exam on rounds --> LE duplex ordered O: Last value Range last 24hrs Temperature Temp: 36.6 ??C (97.9 ??F) Temp: [36.4 ??C (97.5 ??F)-37.6 ??C (99.7 ??F)] Heart Rate Heart Rate: 126 (with ambulation) Heart Rate: -- Blood Pressure BP: 123/79 BP: (123-132)/(72-79) Respiratory Rate Resp: 17 Resp: [16-18] SpO2 SpO2: 99 % SpO2: [94 %-99 %] 11/02 0701 - 11/03 0700 In: 480 [P.O.:480] Out: 1285 [Urine:1150] Colostomy: 500cc RJP - 80 cc LJP - 50 cc Physical Exam: General: NAD HEENT: PERRL CVS: RRR Pulm: No acute respiratory distress Abd: soft, non-tender, mildly distended. Stoma with stool and gas present Skin: warm, dry Ext: RLE swollen and edematous Neuro: CN 2-12 grossly intact, nonfocal,moving all four extremities spontaneously Recent Labs 11/02/17 0420 11/02/17 0321 WBC 6.8 6.6 HGB 9.2* 9.1* HCT 27.7* 27.1* PLATELET 132* 123* Recent Labs 11/02/17 0420 NA 145 K 4.4 CL 106 CO2 26 BUN 21* CREATININE 0.45* GLUCOSE 178 CALCIUM 7.5* MAGNESIUM 0.68* PHOS 3.7 NEW IMAGING: ?? KUB 10/28/2017 - GI contrast has reached the colon and largely cleared the partially obstructed small bowel ASSESSMENT: Adrien Cheung is a 62 y.o. male with pSBO in setting of midline and severe parastomal hernia. He is progressing well clinically, but has elected for operative repair of his hernia at this time as this issue will reoccur. POD5 after incisional and parastomal hernia repair. Found to have swollen, edematous, erythematous RLE on rounds this morning, concerning for DVT; RLE duplex pending. Pain well controlled with Epidural out. PT/OT recommend home with assistance. Binder at all times while walking and up in chair. Continue regular diet. PLAN: NEURO: faith tylenol, oxycodone PRN, Advil PRN. CV: Home lisinopril & Lipitor; lower extremity duplex ordered for concern of RLE DVT PULM: Aggressive IS, PEP therapy. GI: Regular diet : MAYNOR resolved. Q6 straight cath FEK: Regular diet ID: WBC Stable HEME: LULU ENDO: SSI; Holding home glipizide; BS under better control PROPHYLAXIS: LVX; Protonix DISPO: Floor status Mark Brito MD [facility] Pager [phone] Attending Addendum I have seen and examined the patient and reviewed the resident's history and I agree with the details as written. I have reviewed the laboratory data and viewed the pertinent imaging. The assessment and plan were formulated in discussion with me and I agree with them as documented. Acute RLE DVT, vascular surgery consulted and will continue to closely monitor for signs of limb compromise. Silke Price MD * Riley Gonzales RN - 11/03/2017 12:00 AM EST Straight cathed pt, only got 50 ml urine. Encouraged pt to drink fluids, pt has iced tea and gingerale at bedside, provided water bottle in addition. Pt only sipping despite instructions to drink. Pt has no IVF running. * Liss Price MD - 11/02/2017 2:46 PM EST General Surgery Resident Inpatient Progress Note ID: Adrien Cheung is a 62 y.o. 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 He denies fever, chills, diarrhea, dysuria, cough, sore throat, any sick contacts or any other symptoms. He has an appetite but cannot tolerate food or liquids well. Hewas recently admitted for similar symptoms and partial SBO 08/24/17-09/01/17 and was treated conservatively with NGT decompression and had ROBF. POD4 after incisional and parastomal hernia repair. 24hr events/Subjective: ?? GENESIS ON; VSS, afebrile ?? Epidural rate decreased (6-->3) without complication ?? Having colostomy output; tolerating regular diet ?? Feels like he's ready for discharge soon O: Last value Range last 24hrs Temperature Temp: 37.6 ??C (99.7 ??F) Temp: [36.6 ??C (97.9 ??F)-37.6 ??C (99.7 ??F)] Heart Rate Heart Rate: 126 (with ambulation) Heart Rate: [126] Blood Pressure BP: 132/72 BP: (121-132)/(68-72) Respiratory Rate Resp: 16 Resp: [16-18] SpO2 SpO2: 96 % SpO2: [91 %-96 %] 11/01 0701 - 11/02 0700 In: 5016.3 [P.O.:1130] Out: 2810 [Urine:2049] Colostomy: 525cc RJP - 115 cc LJP - 70 cc Physical Exam: General: NAD HEENT: PERRL CVS: RRR Pulm: No acute respiratory distress Abd: soft, non-tender, mildly distended. Stoma with stool and gas present Skin: warm, dry Ext: no c/c/e, cap refill <2sec Neuro: CN 2-12 grossly intact, nonfocal,moving all four extremities spontaneously Recent Labs 11/02/17 0420 11/02/17 0321 10/31/17 0601 WBC 6.8 6.6 8.8 HGB 9.2* 9.1* 10.4* HCT 27.7* 27.1* 31.9* PLATELET 132* 123* 117* Recent Labs 11/02/17 0420 10/31/17 0601 NA 145 148* K 4.4 4.6 CL 106 110* CO2 26 28 BUN 21* 26* CREATININE 0.45* 0.58* GLUCOSE 178 184 CALCIUM 7.5* 7.7* MAGNESIUM 0.68* 0.78 PHOS 3.7 3.6 NEW IMAGING: ?? KUB 10/28/2017 - GI contrast has reached the colon and largely cleared the partially obstructed small bowel ASSESSMENT: Adrien Cheung is a 62 y.o. male with pSBO in setting of midline and severe parastomal hernia. He is progressing well clinically, but has elected for operative repair of his hernia at this time as this issue will reoccur. POD4 after incisional and parastomal hernia repair, progressing well. Pain well controlled with decrease in Epidural rate. PT/OT recommend home with assistance. Binder at all times while walking and up in chair. Continue regular diet. Plan for D/C home tomorrow. PLAN: NEURO: Fentanyl PCEA, dilaudid PRN, faith tylenol, oxycodone PRN, Advil PRN. Plan for epidural removal tomorrow if tolerating diet CV: Holding home lisinopril, lipitor PULM: Aggressive IS, PEP therapy. GI: Regular diet; TPN to time-out tonight : MAYNOR resolved. Q6 straight cath FEK: TPN at 100cc/hr ID: WBC Stable HEME: LULU ENDO: SSI; Holding home glipizide; BS under better control today PROPHYLAXIS: LVX; Protonix DISPO: Floor status Mark Brito MD [facility] Pager [phone] Attending Addendum I have seen and examined the patient and reviewed the resident's history and I agree with the details as written. I have reviewed the laboratory data and viewed the pertinent imaging. The assessment and plan were formulated in discussion with me and I agree with them as documented. Doing well Advance diet PO pain medication, will discuss epidural removal with Pain Service D. Alfredito Price MD * Danielle Mcclelland RN - 11/02/2017 2:06 PM EST OFFICE OF CARE MANAGEMENT Per review of MR pt continues to make progress. Tolerating Liquids at this time, working with PT/OT, continues with TPN though may be able to wean if PO improves per team. Referral in place at this time with Tre and Casimiro ARIZMENDIA. CM remains available to assist with needs. * Lenore Marie MD - 11/02/2017 9:09 AM EST Acute Pain Service - Epidural Daily Management Physician: Dr. Marie Time of Service: 10:23 AM VITAL SIGNS: BP 131/71 (BP Location (NBP): Right arm) Pulse 98 Temp 37.5 ??C (99.5 ??F) (Oral) Resp 17 Ht 170.2 cm (5' 7) Wt 89.8 kg (197 lb 15.6 oz) SpO2 96% BMI 31.01 kg/m2 Epidural day: 5 days s/p placement POD: 4 days s/p Operative Procedures: Procedure(s) with comments: @EXPLORATORY LAPAROTOMY, WITH/WITHOUT BIOPSY(S) (VU 12.54) - Possible bowel resection REPAIR INITIAL INCISIONAL OR VENTRAL HERNIA REDUCIBLE (WRVU 11.92) MODIFIER MESH,BARD VENTRALIGHT ST INCARCERATED PARASTOMAL HERNIA REPAIR (WRVU 11.1) Pertinent Medications: Continuous Infusions Bupivacaine 1/16 % (0.625 mg/mL) plus Fentanyl (2 micrograms/mL) infusing at 6 mls/hour plus PCEA at 3 ml every 20 minutes. (6 boluses administered of 8 attempts) Acetaminophen 975 mg Q6H (pt refusing) Heparin 5000U SubQ BID Hydromorphone 0.5mg IVP Q4H (no doses in 24 hours) Assessment: Numerical Rating Scale (NRS) 4/10 Pain now is well controlled ROS: GI/Bowels Transitioned to a regular diet this morning. Tolerating well. Nausea No Pruritis No Drowsiness No Patient is awake and alert. Deep breathing and coughing well. Demonstrates IS to 2000mL Moves legs without difficulty. Epidural insertion site clean and without signs of infection. Plan: Continue current regimen as diet advanced to regular this morning; if advancement continues to go well, will consider epidural wean in AM. Plan discussed with patient/RN/team. Please call with any questions or concerns. In the presence of Dr. Marie, I am taking down these notes. URIEL NOLAN RN 11/02/2017 Pager # [phone] Uriel Nolan RN, has performed the documentation for this encounter in the presence of and acting as a scribe for LENORE MARIE MD. I performed the above scribed service and agree with the accuracy of the documentation in this encounter. 15:45: Pt has tolerated a regular diet without issue, along with PO oxycodone; pt in agreement withremoval of epidural catheter. Epidural removed, tip intact. Lenore Marie MD * Edin Obrien MD - 11/01/2017 10:26 AM EST Trauma Service - Progress Note Patient Name: Adrien Cheung : [id number] MR#: [id number] 10/27/2017 Hospital Day 5 days Problem List: Active Hospital Problems Diagnosis ??? SBO (small bowel obstruction) ??? Acute kidney injury ??? Neurogenic bladder ??? Colostomy in place ??? Hypertension ??? Obesity (BMI 35.0-39.9 without comorbidity) ??? Diabetes mellitus Resolved Hospital Problems Diagnosis Date Resolved No resolved problems to display. S/P repair of incisional and parastomal hernia with mesh Active Non-Hospital Problems Diagnosis ??? Ostomy nurse consultation ??? Partial small bowel obstruction ??? Snoring ??? Rectal cancer Events over the last 24 hrs: Tolerating liquids, ostomy functioning Subjective: Generally doing well Pain seems well controlled No nausea or emesis Ambulatory ??? enoxaparin (LOVENOX) injection 40 mg ??? acetaminophen (TYLENOL) tablet 975 mg ??? TPN Adult ??? lidocaine (XYLOCAINE) 2 % viscous solution 15 mL ??? phenol 1.4% (CHLORASEPTIC) spray 2 spray ??? POCT Fingerstick Glucose AND insulin lispro (humaLOG) VIAL injection 1-4 Units ??? naloxone (NARCAN) injection 0.2 mg ??? fentaNYL 2 mcg/mL, BUpivacaine (MARCAINE) 0.0625% (0.625 mg/mL)(1/16%) in sodium chloride 0.9% 250 mL epidural AND Neuraxial shift total and Settings verification ??? nalbuphine (NUBAIN) injection 2 mg ??? dextrose 50% IV syringe 25-50 mL OR glucagon (human recombinant) injection SolR 1 mg ??? sodium chloride 0.9 % flush 5 mL ??? sodium chloride 0.9 % flush 5-20 mL ??? lidocaine (XYLOCAINE) 10 mg/mL (1 %) injection 3 mg ??? pantoprazole (PROTONIX) injection 40 mg ??? HYDROmorphone (DILAUDID) injection 0.5 mg ??? ondansetron (ZOFRAN) injection 4 mg ??? flu vacc (6 mos-64 yrs)(PF) (FLULAVAL) IM injection 0.5 mL Objective: Physical Exam: Last Set of Vitals and range of vitals over past 24 hours: Last value Range last 24 hrs Temperature Temp: 37.6 ??C (99.7 ??F) Temp: [36.6 ??C (97.9 ??F)-37.6 ??C (99.7 ??F)] Heart Rate Heart Rate: 98 Heart Rate: -- Blood Pressure BP: 123/73 BP: (123-138)/(72-75) Respiratory Rate Resp: 17 Resp: [16-17] SpO2 SpO2: 92 % SpO2: [92 %-96 %] Physical Exam Awake, alert, in no distress No respiratory compromise Reg pulse Abd soft, minimally tender, no abdominal distension Flatus in ostomy bag Laboratory (Last 24 Hours): Recent Results (from the past 24 hour(s)) POCT Glucose Result Value Ref Range POC Glucose 163 65 - 199 mg/dL POCT Glucose Result Value Ref Range POC Glucose 208 (H) 65 - 199 mg/dL POCT Glucose Result Value Ref Range POC Glucose 182 65 - 199 mg/dL POCT Glucose Result Value Ref Range POC Glucose 189 65 - 199 mg/dL POCT Glucose Result Value Ref Range POC Glucose 194 65 - 199 mg/dL POCT Glucose Result Value Ref Range POC Glucose 186 65 - 199 mg/dL Assessment/Plan: Uncomplicated post op course thus far with return of intestinal function Wean TPN as po intake improves Ambulate / PT Lovenox and pantoprazole Glucose control fair in the 180 to 210 Will need to increase SSI to achieve goal of <180 EDIN OBRIEN MD 11/01/2017 * Lenore Marie MD - 11/01/2017 9:40 AM EST Acute Pain Service - Epidural Daily Management Physician: Lenore Marie MD Time of Service: 9:41 AM VITAL SIGNS: BP 123/73 (BP Location (NBP): Right arm) Pulse 98 Temp 37.6 ??C (99.7 ??F) (Oral) Resp 17 Ht 170.2 cm (5' 7) Wt 89.8 kg (197 lb 15.6 oz) SpO2 92% BMI 31.01 kg/m2 Labs: No components found for: CBC Epidural day: 4 days s/p POD: 3 days s/p Operative Procedures: Procedure(s) with comments: @EXPLORATORY LAPAROTOMY, WITH/WITHOUT BIOPSY(S) ([facility]) - Possible bowel resection REPAIR INITIAL INCISIONAL OR VENTRAL HERNIA REDUCIBLE ([facility] 11.92) MODIFIER MESH,BARD VENTRALIGHT ST INCARCERATED PARASTOMAL HERNIA REPAIR ([facility] 11.1) Pertinent Medications: Continuous Infusions Bupivacaine 1/16 % (0.625 mg/mL) plus Fentanyl (2 micrograms/mL)??infusing at 6??mls/hour plus PCEAat 3??ml every 20 minutes; 11 boluses delivered of 17 attempts. Acetaminophen 975 mg Q6H (pt refusing) Heparin 5000U SubQ BID Hydromorphone 0.5mg IVP Q4H (last dose at 1318 on 10/31) ? Assessment: Numerical Rating Scale (NRS) ??2/10 Pain continues to be well controlled, and Mr. Cheung is satisfied with his current regimen, relying on the epidural infusion and PCEA. He does not feel that the regimen needs adjusting at the present time. NGT has been discontinued, and PO clears are going well. ? ROS: GI/Bowels PO clears as above Nausea ??No Pruritis ??Improved; Nubain given with good effect. Drowsiness ??No ? Patient is awake and alert. Deep breathing and coughing well. Demonstrates IS to 1500mL Moves legs without difficulty. ?? Epidural insertion site clean and without signs of infection. ? Plan: ?? Continue analgesic plan as above while awaiting return of bowel function and continued diet advancement as pt has excellent pain control. Plan discussed with patient/RN/team. Please call with any questions or concerns. LENORE MARIE MD 11/01/2017 Pager # [phone] * Franklin Gonsales DO - 11/01/2017 7:24 AM EST General Surgery Resident Inpatient Progress Note ID: Adrien Cheung is a 62 y.o. 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 He denies fever, chills, diarrhea, dysuria, cough, sore throat, any sick contacts or any other symptoms. He has an appetite but cannot tolerate food or liquids well. Hewas recently admitted for similar symptoms and partial SBO 08/24/17-09/01/17 and was treated conservatively with NGT decompression and had ROBF. POD3 after incisional and parastomal hernia repair. 24hr events/Subjective: ?? GENESIS ON; VSS, afebrile ?? NGT removed yesterday ?? Having colostomy output, denies N/V, bloating. Feels good O: Last value Range last 24hrs Temperature Temp: 37.1 ??C (98.8 ??F) Temp: [36.6 ??C (97.9 ??F)-37.5 ??C (99.5 ??F)] Heart Rate Heart Rate: 98 Heart Rate: -- Blood Pressure BP: 126/72 BP: (117-138)/(72-75) Respiratory Rate Resp: 16 Resp: [16] SpO2 SpO2: 95 % SpO2: [93 %-96 %] 10/31 0701 - 11/01 0700 In: 268.4 Out: 1840 [Urine:1550] NGT: 1.6 L Colostomy: Zero RJP - 80 cc LJP - 60 cc Physical Exam: General: NAD HEENT: PERRL CVS: RRR Pulm: No acute respiratory distress Abd: soft, nontender, mildly distended. Stoma with stool present Skin: warm, dry Ext: no c/c/e, cap refill <2sec Neuro: CN 2-12 grossly intact, nonfocal,moving all four extremities spontaneously Recent Labs 10/31/17 0601 10/30/17 0500 WBC 8.8 8.4 HGB 10.4* 11.2* HCT 31.9* 33.8* PLATELET 117* 134* Recent Labs 10/31/17 0601 10/30/17 0500 NA 148* 145 K 4.6 4.7 CL 110* 107 CO2 28 29 BUN 26* 24* CREATININE 0.58* 0.62* GLUCOSE 184 216* CALCIUM 7.7* 7.7* MAGNESIUM 0.78 0.79 PHOS 3.6 2.9 NEW IMAGING: ?? KUB 10/28/2017 - GI contrast has reached the colon and largely cleared the partially obstructed small bowel ASSESSMENT: Adrien Cheung is a 62 y.o. male with pSBO in setting of midline and severe parastomal hernia. He is progressing well clinically, but has elected for operative repair of his hernia at this time as this issue will reoccur. POD3 after incisional and parastomal hernia repair, progressing well. Pain well controlled. Will need PT/OT consult and aggressive IS. Binder at all times while walking and up in chair. Clears today PLAN: NEURO: Fentanyl PCEA, dilaudid PRN, faith tylenol. Plan for epidural removal tomorrow if tolerating diet CV: Holding home lisinopril, lipitor PULM: Aggressive IS, PEP therapy. Wean O2 GI: TPN at 100cc/hr; Clears today : MAYNOR resolved. Q6 straight cath FEK: TPN at 100cc/hr ID: WBC Stable HEME: LULU ENDO: SSI; Holding home glipizide; BS under better control today PROPHYLAXIS: LVX; Protonix DISPO: Floor status FRANKLIN GONSALES, DO ACS Pager [phone] * Jocelyne Pablo RN - 10/31/2017 6:17 PM EST Pt A/Ox4 throughout shift. Clamp trial for NGT started this am for 3 hours. Output of 20cc after 1 hour back to suction. MD notified and came to pull NGT. Pt still NPO. Uriarte removed this am, pt unable to void all day, straight cathed at 1730, now due to void for 2129. Epidural and dilaudid controlling pain. No adverse events this shift. Will continue to monitor. * Lenore Marie MD - 10/31/2017 1:57 PM EST Acute Pain Service - Epidural Daily Management Physician: Lenore Marie MD Time of Service: 1:57 PM VITAL SIGNS: BP 138/74 (BP Location (NBP): Right arm) Pulse 98 Temp 36.6 ??C (97.9 ??F) (Oral) Resp 16 Ht 170.2 cm (5' 7) Wt 89.8 kg (197 lb 15.6 oz) SpO2 95% BMI 31.01 kg/m2 Labs: No components found for: CBC Epidural day: 3 days s/p POD: 2 days s/p Operative Procedures: Procedure(s) with comments: @EXPLORATORY LAPAROTOMY, WITH/WITHOUT BIOPSY(S) ([facility] 12.54) - Possible bowel resection REPAIR INITIAL INCISIONAL OR VENTRAL HERNIA REDUCIBLE ([facility] 11.92) MODIFIER MESH,BARD VENTRALIGHT ST INCARCERATED PARASTOMAL HERNIA REPAIR ([facility] 11.1) Pertinent Medications: Continuous Infusions Bupivacaine 1/16 % (0.625 mg/mL) plus Fentanyl (2 micrograms/mL) infusing at 6 mls/hour plus PCEA at 3 ml every 20 minutes; 13 boluses delivered of 27 attempts. Acetaminophen 975 mg Q6H Heparin 5000U SubQ BID Hydromorphone 0.5mg IVP Q4H (2mg in 24 hours) ?? Assessment: Numerical Rating Scale (NRS) 5/10 Pain now is moderate, though pt reports being satisfied with his pain control and does not feel that the epidural needs to be adjusted at this time. He is looking forward to hopefully having the NGT discontinued today after a clamp trial. ?? ROS: GI/Bowels NPO hold meds Nausea No Pruritis Improved; Nubain given with good effect. Drowsiness No ?? Patient is awake and alert. Deep breathing and coughing well. Demonstrates IS to 1500mL Moves legs without difficulty. Epidural insertion site clean and without signs of infection. ? Plan: Continue analgesic plan as above while awaiting return of bowel function/diet advancement. Plan discussed with patient/RN/team. ?? Please call with any questions or concerns. LENORE MARIE MD 10/31/2017 Pager # [phone] * Franklin Gonsales DO - 10/31/2017 8:21 AM EST General Surgery Resident Inpatient Progress Note ID: Adrien Cheung is a 62 y.o. 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 He denies fever, chills, diarrhea, dysuria, cough, sore throat, any sick contacts or any other symptoms. He has an appetite but cannot tolerate food or liquids well. Hewas recently admitted for similar symptoms and partial SBO 08/24/17-09/01/17 and was treated conservatively with NGT decompression and had ROBF. POD2 after incisional and parastomal hernia repair. 24hr events/Subjective: ?? GENESIS ON; VSS, afebrile ?? Having colostomy output ?? NGT less bilious O: Last value Range last 24hrs Temperature Temp: 37.3 ??C (99.1 ??F) Temp: [35.5 ??C (95.9 ??F)-37.3 ??C (99.1 ??F)] Heart Rate Heart Rate: 98 Heart Rate: [98] Blood Pressure BP: 119/74 BP: (117-123)/(74-77) Respiratory Rate Resp: 16 Resp: [16-18] SpO2 SpO2: 97 % SpO2: [94 %-98 %] 10/30 0701 - 10/31 0700 In: 2706.2 [P.O.:80; I.V.:2309] Out: 3430 [Urine:1690] NGT: 1.6 L Colostomy: Zero RJP - 80 cc LJP - 60 cc Physical Exam: General: NAD HEENT: PERRL CVS: RRR Pulm: CTAB Abd: soft, nontender, mildly distended. Stoma with stool present : Uriarte with clear yellow urine Skin: warm, dry Ext: no c/c/e, cap refill <2sec Neuro: CN 2-12 grossly intact, nonfocal,moving all four extremities spontaneously Recent Labs 10/31/17 0601 10/30/17 0500 10/29/17 0240 WBC 8.8 8.4 7.2 HGB 10.4* 11.2* 10.6* HCT 31.9* 33.8* 31.2* PLATELET 117* 134* 160 Recent Labs 10/31/17 0601 10/30/17 0500 10/29/17 0240 NA 148* 145 139 K 4.6 4.7 3.8 CL 110* 107 99 CO2 28 29 25 BUN 26* 24* 26* CREATININE 0.58* 0.62* 0.58* GLUCOSE 184 216* 213* CALCIUM 7.7* 7.7* 7.8* MAGNESIUM 0.78 0.79 0.70 PHOS 3.6 2.9 2.1* NEW IMAGING: ?? KUB 10/28/2017 - GI contrast has reached the colon and largely cleared the partially obstructed small bowel ASSESSMENT: Adrien Cheung is a 62 y.o. male with pSBO in setting of midline and severe parastomal hernia. He is progressing well clinically, but has elected for operative repair of his hernia at this time as this issue will reoccur. POD2 after incisional and parastomal hernia repair, progressing well. Pain well controlled. Will need PT/OT consult and aggressive IS. Binder at all times while walking and up in chair. Clamp trial NGT today, remove if less than 150 cc PLAN: NEURO: Fentanyl PCEA, dilaudid PRN, faith tylenol CV: Holding home lisinopril, lipitor PULM: Aggressive IS, PEP therapy GI: TPN at 100cc/hr; Clamp trial today, clears if NGT able to be removed : MAYNOR resolved. D/C Uriarte today, bladder scan orders placed FEK: TPN at 100cc/hr ID: WBC Stable HEME: LULU ENDO: SSI; Holding home glipizide; adding insulin to TPN. BS under better control today PROPHYLAXIS: LVX; Protonix DISPO: Floor status FRANKLIN GONSALES, ACS Pager [phone] * Lenore Marie MD - 10/30/2017 2:00 PM EST Acute Pain Service - Epidural Daily Management Physician: Dr. Marie Time of Service: 14:00 VITAL SIGNS: BP 120/74 (BP Location (NBP): Right arm) Pulse 98 Temp 35.5 ??C (95.9 ??F) (Oral) Resp 16 Ht 170.2 cm (5' 7) Wt 89.8 kg (197 lb 15.6 oz) SpO2 95% BMI 31.01 kg/m2 Epidural day: 2 days s/p placement POD: 1 days s/p Operative Procedures: Procedure(s) with comments: @EXPLORATORY LAPAROTOMY, WITH/WITHOUT BIOPSY(S) ([facility] 12.54) - Possible bowel resection REPAIR INITIAL INCISIONAL OR VENTRAL HERNIA REDUCIBLE ([facility] 11.92) MODIFIER MESH,BARD VENTRALIGHT ST INCARCERATED PARASTOMAL HERNIA REPAIR ([facility] 11.1) Pertinent Medications: Continuous Infusions Bupivacaine 1/16 % (0.625 mg/mL) plus Fentanyl (2 micrograms/mL) infusing at 4 mls/hour plus PCEA at 2 ml every 20 minutes. Ofirmev 1000mg IV Q8H Heparin 5000U SubQ BID Hydromorphone 0.5mg IVP Q4H (1mg in 24 hours) Assessment: Numerical Rating Scale (NRS) 7/10 Pain now is moderate ROS: GI/Bowels NPO hold meds and tube feeding Nausea No Pruritis Yes Nubain given with good effect. Drowsiness No Patient is awake and alert. Deep breathing and coughing well. Demonstrates IS to 1500mL Moves legs without difficulty. Epidural insertion site clean and without signs of infection. Plan: Epidural infusion increased to 6mL/hr with a PCEA of 3mL as patients hypotension has resolved. Recommend adding scheduled tylenol. Plan discussed with patient/RN/team. Please call with any questions or concerns. In the presence of Dr. Marie, I am taking down these notes. URIEL NOLAN RN 10/30/2017 Pager # [phone] Uriel Nolan RN, has performed the documentation for this encounter in the presence of and acting as a scribe for LENORE MARIE MD. I performed the above scribed service and agree with the accuracy of the documentation in this encounter. * Mark Brito MD - 10/30/2017 11:22 AM EST General Surgery Resident Inpatient Progress Note ID: Adrien Cheung is a 62 y.o. 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 He denies fever, chills, diarrhea, dysuria, cough, sore throat, any sick contacts or any other symptoms. He has an appetite but cannot tolerate food or liquids well. Hewas recently admitted for similar symptoms and partial SBO 08/24/17-09/01/17 and was treated conservatively with NGT decompression and had ROBF. POD1 after incisional and parastomal hernia repair. 24hr events/Subjective: ?? GENESIS ON; VSS, afebrile ?? OR yesterday for incisional and parastomal hernia repair ?? Transferred from PACU to Floor ?? NGT 150cc bilious output O: Last value Range last 24hrs Temperature Temp: 35.6 ??C (96.1 ??F) Temp: [35.6 ??C (96.1 ??F)-37.5 ??C (99.5 ??F)] Heart Rate Heart Rate: 94 Heart Rate: [94-123] Blood Pressure BP: 127/72 BP: (90-137)/(53-72) Respiratory Rate Resp: 16 Resp: [11-18] SpO2 SpO2: 97 % SpO2: [92 %-98 %] 10/29 0701 - 10/30 0700 In: 5244.9 [P.O.:120; I.V.:3627] Out: 2905 [Urine:2515] NGT: 150cc Colostomy: Zero RJP - 50cc LJP - 5cc Physical Exam: General: NAD HEENT: PERRL CVS: RRR Pulm: CTAB Abd: soft, nontender, mildly distended : Uriarte with clear yellow urine Skin: warm, dry Ext: no c/c/e, cap refill <2sec Neuro: CN 2-12 grossly intact, nonfocal,moving all four extremities spontaneously Recent Labs 10/30/17 0500 10/29/17 0240 10/28/17 0155 WBC 8.4 7.2 7.4 HGB 11.2* 10.6* 11.3* HCT 33.8* 31.2* 32.8* PLATELET 134* 160 178 Recent Labs 10/30/17 0500 10/29/17 0240 10/28/17 0155 10/27/17 1639 NA 145 139 137 130* K 4.7 3.8 3.6 4.3 CL 107 99 97* 88* CO2 29 25 23 23 BUN 24* 26* 57* 89* CREATININE 0.62* 0.58* 0.96 1.96* GLUCOSE 216* 213* 82 96 CALCIUM 7.7* 7.8* 7.5* 7.5* MAGNESIUM 0.79 0.70 0.62* 0.56* PHOS 2.9 2.1* 2.4* 3.6 NEW IMAGING: ?? KUB 10/28/2017 - GI contrast has reached the colon and largely cleared the partially obstructed small bowel ASSESSMENT: Adrien Cheung is a 62 y.o. male with pSBO in setting of midline and severe parastomal hernia. He is progressing well clinically, but has elected for operative repair of his hernia at this time as this issue will reoccur. POD1 after incisional and parastomal hernia repair, progressing well. Pain well controlled. Will need PT/OT consult and aggressive IS. Binder at all times while walking and up in chair. Maintain NGT.AROBF. PLAN: NEURO: Fentanyl PCEA, dilaudid PRN CV: Holding home lisinopril, lipitor PULM: Aggressive IS, PEP therapy GI: TPN at 100cc/hr; AROBF. 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 He denies fever, chills, diarrhea, dysuria, cough, sore throat, any sick contacts or any other symptoms. He has an appetite but cannot tolerate food or liquids well with weight loss of 29 # in last month. PER REVIEW MR: Pt underwent the following procedures on 10/29/17 Small Bowel Obstruction, Incarcerated Parastomal Hernia, Incarcerated Ventral Hernia diagnosis and underwent : 1) Ventral hernia repair with mesh 2) Parastomal hernia repair with mesh 3) Lysis of adhesions for 3 hours 4) Appendectomy 5) Umbilicoplasty ?? Patient currently NPO, has NG tube, alert and oriented, has PICC in place for TPN- started 10/29/17. Met briefly with this gentleman and we discussed CM can assist with any d/c needs. He explains he has used [facility] in past ( [facility]) and will accept as needed. He confirms while he lives alone he has support people available to assist- currently has family/ friends here to visit. We did discussed currently reviewing insurance for coverage should TPN be needed at discharge. We discussed anticipate [facility] services for assist with ostomy teaching. Will initiate referral process. The patient/contracts representative has been provided a list of Home Health Agencies/DME vendors which servetheir preferred geographic area. A letter describing our affiliations was reviewed with them and they were educated about their right to choose where referrals are placed. Patient requests referral to [facility] PHONE: [phone] FAX: [phone] Expected date of discharge: TBD Referral routed to the Property Utilization Manager for matching with agency/vendor and to provide any required information. 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 He denies fever, chills, diarrhea, dysuria, cough, sore throat, any sick contacts or any other symptoms. He has an appetite but cannot tolerate food or liquids well with weight loss of 29 # in last month. ?? Estimated body mass index is 31.01 kg/(m^2) as calculated from the following: Height as of this encounter: 170.2 cm (5' 7). Weight as of this encounter: 89.8 kg (197 lb 15.6 oz). Lab Results Component Value Date NA 145 10/30/2017 K 4.7 10/30/2017 CL 107 10/30/2017 CO2 29 10/30/2017 BUN 24 (H) 10/30/2017 CREATININE 0.62 (L) 10/30/2017 GLUCOSE 216 (H) 10/30/2017 MAGNESIUM 0.79 10/30/2017 CALCIUM 7.7 (L) 10/30/2017 PHOS 2.9 10/30/2017 AST 8 10/29/2017 ALT 13 10/29/2017 ALKPHOS 55 10/29/2017 BILITOT 0.4 10/29/2017 BILIDIR 0.2 10/27/2017 I/O last 3 completed shifts: In: 6550.9 [P.O.:420; I.V.:3627; Other:139.9] Out: 3970 [Urine:3480; Other:340; Blood:150] NGT output decreased, will adjust electrolytes Estimated Nutrition Needs: Calories: 1750 Protein (grams):130-170 Nutrition Support: TPN to provide 1780 calories from 170 grams protein, 147 grams of carbohydrate, and 60 grams of lipid. TPN volume of 2400 ml to infuse continuously. 10 units of regular insulin will be added to TPN bag Mark Mohr MD - 10/29/2017 5:38 PM EST Post-op Check Patient Name: Adrien Cheung Patient Age: 62 y.o. Attending Physician: Vivian Washington MD Adrien Cheung is a 62 y.o. male s/p Procedure(s) (LRB): @EXPLORATORY LAPAROTOMY, WITH/WITHOUT BIOPSY(S) (VU 12.54) (N/A) REPAIR INITIAL INCISIONAL OR VENTRAL HERNIA REDUCIBLE ([facility] 11.92) (N/A) MODIFIER MESH,BARD VENTRALIGHT ST (N/A) INCARCERATED PARASTOMAL HERNIA REPAIR ([facility] 11.1) (N/A) S: Pt seen and examined in PACU. Resting comfortably in bed with family at bedside. States that pain is well controlled on PCEA. Denies fever, chills, CP, SOB, N or V. Tachy in low 100s. Binder in place. Uriarte with clear yellow urine. O: Last value Range last 24hrs Temperature Temp: 37.3 ??C (99.1 ??F) Temp: [36.2 ??C (97.2 ??F)-37.3 ??C (99.1 ??F)] Heart Rate Heart Rate: 98 Heart Rate: [67-123] Blood Pressure BP: 113/59 BP: (90-132)/(49-69) Respiratory Rate Resp: 11 Resp: [11-18] SpO2 SpO2: 92 % SpO2: [90 %-98 %] I/O this shift: In: 3986 [I.V.:3627] Out: 1860 [Urine:1560; Other:150; Blood:150] General: NAD, A/O x 3 HEENT: NC/AT CV: RRR, no appreciable murmurs Pulm: CTAB Abd: soft, NT/ND, benign Skin: Warm, Dry Neuro: CN 2-12 grossly intact, nonfocal Incision: Dressings c/d/i. No evidence of hematoma/seroma/infection Drains: MARIEL drains with SS output Recent Labs 10/29/17 0240 10/28/17 0155 10/27/17 0720 WBC 7.2 7.4 16.0* HGB 10.6* 11.3* 13.6* HCT 31.2* 32.8* 39.2* PLATELET 160 178 248 Recent Labs 10/29/17 0240 10/28/17 0155 10/27/17 1639 10/27/17 0720 NA 139 137 130* 125* K 3.8 3.6 4.3 4.9 CL 99 97* 88* 80* CO2 25 23 23 25 BUN 26* 57* 89* 109* CREATININE 0.58* 0.96 1.96* 3.33* GLUCOSE 213* 82 96 212* CALCIUM 7.8* 7.5* 7.5* 7.9* MAGNESIUM 0.70 0.62* 0.56* -- PHOS 2.1* 2.4* 3.6 -- A/P: Adrien Cheung is a 62 y.o. male patient s/p above procedures currently in stable condition and recovering well after surgery. - Appropriate for Floor - Pain well controlled - Will signout wellness check to night team given how extensive surgery was - Hemodynamically stable, UOP adequate - Continue post-op plan Mark Brito MD 10/29/2017 5:38 PM * Yenny Doe RN - 10/29/2017 4:25 PM EST 1545- pt arrived in PACU from OR. Attached to monitors, alarm parameters adjusted to pt and appropriate. Alarms audible. VSS, sinus tach upon arrival. [address], one on the left and one onthe right. Abdominal binder in place, midline abdominal incision c/d/i. Blood sugar [address] upon arrival. Uri[address] in place, epidural running- rate verified by two RNs. TPN running at 100ml/hr upon arrival.NG tube in place to low continuous wall suction. Pts right hand puffy, IV in right hand flushes well with good draw back 0- Iza PHARMACY COORDINATOR at bedside to assess right hand. No concern about possible infiltrate, states to continue to monitor hand. 1739- Kushal FUNES at bedside to see pt. States she is fine with pt going to the floor at this time. 1814- pt continues to do well. VSS, pt a+o+3. Lungs clear, NSR. See flowsheet for full assessment. ABD binder in place. Right hand looks less puffy, swelling appears to be going down. 1829- report called to Carlos DEUTSCH on . Abelino FUNES notified about blood sugars and interventions. Pt ready to go to the floor, resting intermittently. * Jammie Arreaga RD - 10/29/2017 3:36 PM EST TPN Note Diagnosis:62 y.o. 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 He denies fever, chills, diarrhea, dysuria, cough, sore throat, any sick contacts or any other symptoms. He has an appetite but cannot tolerate food or liquids well with weight loss of 29 # in last month. Estimated body mass index is 31.01 kg/(m^2) as calculated from the following: Height as of this encounter: 170.2 cm (5' 7). Weight as of this encounter: 89.8 kg (197 lb 15.6 oz). Lab Results Component Value Date NA 139 10/29/2017 K 3.8 10/29/2017 CL 99 10/29/2017 CO2 25 10/29/2017 BUN 26 (H) 10/29/2017 CREATININE 0.58 (L) 10/29/2017 GLUCOSE 213 (H) 10/29/2017 MAGNESIUM 0.70 10/29/2017 CALCIUM 7.8 (L) 10/29/2017 PHOS 2.1 (L) 10/29/2017 AST 8 10/29/2017 ALT 13 10/29/2017 ALKPHOS 55 10/29/2017 BILITOT 0.4 10/29/2017 BILIDIR 0.2 10/27/2017 I/O last 3 completed shifts: In: 6019 [P.O.:1350; I.V.:3633; Other:30] Out: 6540 [Urine:5165; Other:1275; Stool:100] Estimated Nutrition Needs Calories: 1750 Protein (grams):130-170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 Has ostomy bag in place from his AP resection. His main symptom is fatigue, as he has mainly been in bed, unable to go to work or interact with his family during the holidays. His PO intake has b een poor because this induces emesis. His ostomy output has been similar to baseline. Occasionally he will have abdominal discomfort due to bloating. He has lost approximately 40 lbs in the past month. Review of Systems General: admits to weight loss and fatigue; denies fevers, chills, night sweats [employer]: denies headache, dizziness, confusion, visual disturbances, hearing loss ENT: denies throat, ear or sinus pain, adenopathy CV: denies chest pain, palpitations, dyspnea on exertion Pulm: denies shortness of breath, cough, sputum production, hemoptysis GI: admits to emesis and abdominal discomfort; denies diarrhea, constipation, hematochezia : denies dysuria or hematuria Extremities: denies numbness, tingling, pain, edema MSK: denies joint pain or swelling Skin: denies rashes, bruises, lesions Heme: denies easy bruising, anemia, clotting disorder Endo: denies heat or cold intolerance Psych: denies depression, anxiety PMHx, PSHx, meds, and allergies reviewed and updated in chart as necessary. Soc Hx: Tobacco use - none , alcohol use - denies , other drug use - occasional marijuana Temp: [36.4 ??C (97.5 ??F)] Heart Rate: [78-90] Resp: [9-] BP: (75-107)/(43-62) SpO2: [86 %-99 %] Heart Rate from SPO2: [76 bpm-85 bpm] Physical Exam: Gen: Alert, oriented, appears fatigued. HEENT: NC/AT; PERRL, EOMI; nares patent without discharge; clear oropharynx Neck: supple, full ROM, no adenopathy CV: RRR, s1/s2 normal, no murmurs/rubs/gallops Pulm: CTA bilaterally Abd: Soft, non-tender, non-distended; left sided ostomy bag in place and intact, with brown appearing stool Extremities: No edema, clubbing, cyanosis Skin: No rashes or lesions Neuro: A&Ox3, CN 2-12 intact, no focal deficits Recent Results (from the past 24 hour(s)) POCT urine dipstick Result Value Ref Range POC Sp [place] 1.015 1.002 - 1.030 POC pH, UA 5 5.0 - 8.5 POC Leuk, UA neg Negative - Negative POC Nitrite, UA neg Negative - Negative POC Protein, UA trace Negative - Negative mg/dL POC Glucose, UA 50 Normal - Normal mg/dL POC Ketone, UA neg Negative - Negative POC Urobil, UA normal 0.2 - 1.0 mg/dL POC Bili, UA neg Negative - Negative POC Blood, UA neg Negative - Negative epifanio/uL Basic Metabolic Panel (non-fasting) Result Value Ref Range Glucose Lvl 212 (H) 65 - 199 mg/dL BUN 109 (H) 10 - 20 mg/dL Creatinine 3.33 (H) 0.80 - 1.50 mg/dL Sodium 125 (L) 135 - 145 mmol/L Potassium 4.9 3.5 - 5.0 mmol/L Chloride 80 (L) 98 - 107 mmol/L CO2 25 22 - 31 mmol/L Anion Gap 20 (H) 5 - 15 mmol/L Calcium 7.9 (L) 8.5 - 10.5 mg/dL Estimated GFR 19 (L) >=60 Hemogram Result Value Ref Range WBC 16.0 (H) 4.0 - 9.5 x10(3)/mcL RBC 4.49 (L) 4.58 - 5.54 x10(6)/mcL Hemoglobin 13.6 (L) 13.7 - 16.5 gm/dL Hematocrit 39.2 (L) 40.5 - 48.5 % MCV 87.3 82.9 - 93.1 fL MCH 30.3 27.5 - 32.1 pg MCHC 34.7 32.0 - 35.7 gm/dL Platelets 248 145 - 357 x10(3)/mcL RDWSD 42.9 36.0 - 45.0 fL RDWCV 13.4 11.4 - 13.8 % MPV 10.5 7.6 - 12.9 fL nRBC % Auto 0.0 % nRBC Abs Auto 0.000 0.000 - 0.000 x10(3)/mcL Differential, Automated Result Value Ref Range Neutrophils % 82.2 % Neutr Abs (ANC) 13.12 (H) 1.70 - 6.10 x10(3)/mcL Lymphocytes % 8.0 % Lymphocytes Abs 1.3 0.9 - 3.2 x10(3)/mcL Monocytes % 8.9 % Monocyte Abs 1.4 (H) 0.3 - 0.9 x10(3)/mcL Eosinophils % 0.1 % Eosinophils Abs 0.0 0.0 - 0.4 x10(3)/mcL Basophils % 0.2 % Basophils Abs 0.0 0.0 - 0.1 x10(3)/mcL Immature Gran % 0.60 % Naomi Gran Abs 0.10 (H) 0.00 - 0.04 x10(3)/mcL Blue Tube HOLD Result Value Ref Range Blue Hold Sample in lab. Lipase Result Value Ref Range Lipase 27 0 - 60 unit/L Hepatic Function Panel Result Value Ref Range Total Protein 6.7 6.1 - 8.0 gm/dL Albumin 3.6 3.2 - 5.2 gm/dL AST 18 0 - 39 unit/L ALT 24 0 - 55 unit/L Alk Phos 81 40 - 120 unit/L Total Bilirubin 0.7 0.2 - 1.3 mg/dL Bili, Direct 0.2 0.0 - 0.3 mg/dL L-Lactate2 Whole Blood Result Value Ref Range Lactate WB 1.1 0.5 - 2.2 mmol/L Urinalysis with reflex Culture Result Value Ref Range Glucose UA 50 (A) Negative mg/dL Protein UA Negative Negative mg/dL Bilirubin UA Negative Negative mg/dL Urobilinogen UA Normal Normal mg/dL pH UA 6.0 5.0 - 8.0 Blood UA Small (A) Negative mg/dL Ketones UA 20 (A) Negative mg/dL Nitrite UA Negative Negative Leukocytes UA Small (A) Negative mcL Appearance UA Clear Clear Spec [place] UA 1.005 1.002 - 1.030 Color UA Straw Yellow Culture Reflexed No Urinalysis Microscopic Exam Result Value Ref Range RBC UA 1 0 - 3 /HPF WBC UA 6 (H) 0 - 3 /HPF Bacteria UA Rare (A) None /HPF Squam Epith UA 1 <=4 /HPF Trans Epith UA <1 <=1 /HPF Renal Epith UA <1 (H) <=0 /HPF Hyaline Cast UA 1 0 - 2 /LPF CT abdomen/pelvis w/contrast: IMPRESSION 1. Status post abdominoperineal resection with a descending colostomy in the left lower quadrant. A parastomal hernia containing loops of small bowel has been present since July 2017, however it is now causing a partial small bowel obstruction with dilatation of proximal loops of small bowel up to 7 cm in transverse dimension. 2. No CT evidence of perforation. 3. A right para midline ventral hernia containing nondilated loops of small bowel. This is stable in appearance. 4. Stable soft tissue in the presacral space likely post treatment fibrosis. 5. New mild dilatation of both renal collecting systems and ureters is likely secondary to the severely distended urinary bladder. ED Course: Medications/Fluids: 3 L NS, Zofran Labs: As above Imaging: CT abdomen pelvis w/contrast, as above - Patient was evaluated and discussed with Drs. Price and Shey - Medications, allergies and past medical history reviewed - I reviewed the patient's labwork. Assessment: Adrien Cheung is a 62 y.o. male with history of rectal cancer s/p neoadjuvant chemoradiation followed by AP resection (followed by adjuvant chemo), DM, GERD, HTN, who presents to the [facility] with a chief complaint of fatigue. On presentation, was hypotensive with BPs in 60s/40s, thought to be due to hypovolemia secondary topoor PO intake. He was found to have a resulting MAYNOR. His blood pressures improved following fluid resuscitation, and the patient has been clinically stable throughout his course in the ED. On CT abdomen/pelvis today, he was found to have a partial small bowel obstruction secondary to parastomal hernia. General surgery was notified -- he is a known patient to their service. Plan/Dispo: - Dispo: Admit to general surgery for further evaluation/treatment of partial small bowel obstruction. Sincere Oseguera, PGY-1 Internal Medicine Pager [phone] Aleks Oseguera MD Resident 10/27/17 [id number] Associated attestation - Swetha Price MD - 10/28/2017 3:28 PM EST ED ATTENDING ATTESTATION NOTE The patient was seen in conjunction with the resident physician. I have independently performed thekey portions of the history and physical exam. I have reviewed the nursing notes, vital signs, and all diagnostic studies personally including labs, imaging studies and EKGs. I have discussed the details of the case with the resident and agree with the assessment and plan as described in the resident note above unless noted otherwise below. ED Course * Alaina May RN - 10/27/2017 7:25 AM EST MD aware of patients vital signs, resident in room with patient at this time. Will continue to monitor.. documented in this encounter Miscellaneous Notes * Plan of Care - Mariel Fitzgerald RN - 11/05/2017 3:15 AM EST Problem: Patient Care Overview Goal: Plan of Care Review Outcome: Ongoing (Interventions Implemented as Appropriate) 11/05/17 0308 Coping/Psychosocial Plan Of Care Reviewed With patient Plan of Care Review Progress progress toward functional goals as expected OUTCOME EVALUATION NOTE: OUTCOME SUMMARY: Patient progressing towards d/c goals appropriately at this time. Patients pain adequately controlled, see MAR for medications given. Pt rested in bed throughout shift. MARIEL putting out small amount ofserosanguinous drainage, see doc flowsheets. Colostomy only putting out flatus, aware. Pt self-cathed at 2330 and 0600. FS q4h within normal limits. RLE remained elevated and wrapped in danny throughout shift. NV checks unchanged. Will continue to monitor and help patient reach d/c goals. PLAN MOVING FORWARD: Pain control Mobilize D/c planning INDIVIDUALIZED FALL PREVENTION: Patient is currently a high risk to Fall. Patient educated on bed/chair alarm, demonstrates proper use of call mosqueda and verbalizes understanding of fall preventions implemented. Patient-specific fall risk factors per assessment: [current deficits]: Pain, Medications, Hospital Environment. Assistance [level of assistance required for transfers and ambulation]: Standby assist Supervision [direct monitoring required during toileting and ADLs]: Eyes-on assistance with ADL's Surveillance [continuous indirect monitoring]: Masimo, Purposeful Rounding, Bedside Report Patient-specific fall prevention interventions for sensory deficits provided, if applicable: [X] N/A CPG GOAL OUTCOME EVALUATION: Goal: Individualization & Mutuality Outcome: Ongoing (Interventions Implemented as Appropriate) 11/05/17307 Individualization Patient Specific Goals Increase independence Patient Specific Interventions Self-cathed, educated on colostomy Goal: Fall Prevention-Safe Patient Handling Outcome: Ongoing (Interventions Implemented as Appropriate) 11/02/1720811/04/172017 Musculoskeletal Interventions Muscle Strengthening activity/mobility promoted;mobility in bed promoted -- Activity and Safety Assistive Device None -- Daily Care Interventions Self-Care Promotion -- independence encouraged;BADL personal objects within reach;BADL personal routines maintained;safe use of adaptive equipment encouraged Toro Fall Risk History of Falling -- 0 Secondary Diagnosis -- 15 Ambulatory Aids -- 0 Intravenous Therapy/Heparin/Saline Lock -- 20 Gait/Transferring -- 10 Mental Status -- 0 Score -- 45 OTHER [place] Fall Risk -- High Restraint Interventions Safety Promotion/Fall Prevention -- activity supervised;nonskid shoes/slippers when out of bed;safety round/check completed;fall prevention program maintained Positioning Body Position -- supine, head elevated Goal: Infection Control Outcome: Ongoing (Interventions Implemented as Appropriate) 11/04/172017 Safety Interventions Isolation Precautions standard precautions maintained Infection Prevention barrier precautions utilized;rest/sleep promoted;single patient room provided Coping Strategies Supportive Measures active listening utilized;counseling provided;decision- making supported Goal: Discharge Needs Assessment Outcome: Ongoing (Interventions Implemented as Appropriate) 10/27/17 1727 11/02/17208 Discharge Needs Assessment Concerns To Be Addressed -- no discharge needs identified Readmission Within The Last 30 Days -- no previous admission in last 30 days Equipment Needed After Discharge colostomy/ostomy supplies;glucometer -- Discharge Disposition -- still a patient Current Health Anticipated Changes Related to Illness none -- Activity/Self Care Review of Systems Equipment Currently Used at Home colostomy/ostomy supplies;glucometer -- Living Environment Transportation Available car -- Goal: Interdisciplinary Rounds/Family Conf Outcome: Ongoing (Interventions Implemented as Appropriate) 11/05/17307 Interdisciplinary Rounds/Family Conf Participants nursing;patient Problem: Pain, Acute (Adult) Goal: Acceptable Pain Control/Comfort Level Patient will demonstrate the desired outcomes by discharge/transition of care. Outcome: Ongoing (Interventions Implemented as Appropriate) 11/05/17307 Pain, Acute (Adult) Acceptable Pain Control/Comfort Level making progress toward outcome Problem: Health Knowledge, Opportunity to Enhance (Adult,NICU,,Obstetrics,Pediatric) Goal: Identify Related Risk Factors and Signs and Symptoms Related risk factors and signs and symptoms are identified upon initiation of Human Response Clinical Practice Guideline (CPG) Outcome: Ongoing (Interventions Implemented as Appropriate) 11/05/17 030 Health Knowledge, Opportunity to Enhance Health Knowledge, Opportunity for Enhanced: Related Risk Factors pain Goal: Knowledgeable about Health Subject/Topic Patient will demonstrate the desired outcomes by discharge/transition of care. Outcome: Ongoing (Interventions Implemented as Appropriate) 11/05/17 030 Health Knowledge, Opportunity to Enhance (Adult,NICU,[place],Obstetrics,Pediatric) Knowledgeable about Health Subject/Topic making progress toward outcome * Plan of Care - Abimael Oliva PTA - 11/04/2017 4:33 PM EST Problem: Patient Care Overview Goal: Plan of Care Review Outcome: Ongoing (Interventions Implemented as Appropriate) 11/04/17 1630 Coping/Psychosocial Plan Of Care Reviewed With patient Plan of Care Review Progress improving Physical Therapy Assessment Treatment Number: 3 Pt seen for functional mobility, strength, endurance and pt education. Pt demonstrating safe and independent bed mobility, transfers, ambulation of household distances and stair management. Pt deferred ambulating further but currently meeting PT goals, safe for home when medically ready. Please seethe Rehab Evaluation Summaries report for objective data and specifics of today???s session. Pertinent History of Current Problem: Pt is a 62 yo M with a history of DM, HTN, APR in 04/2013 forypT3 N0 adenocarcinoma of the rectum, with parastomal hernia and incisional hernia who presents with malaise, nausea and vomiting for past week who underwent the following procedures on 10/29/17: 1) Ventral hernia repair with mesh 2) Parastomal hernia repair with mesh3) Lysis of adhesions for 3 hours 4) Appendectomy 5) Umbilicoplasty. Staff Mobility Recommendations: Ambulate with no device, independent Precautions/Restrictions: fall Precautions Comments: 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, ostomy, 2 MARIEL drains Anticipated Physical Therapy Frequency: 1-3 more visits Anticipated Discharge Disposition: home with assist ABIMAEL OLIVA PTA Pager: [phone] Inpatient Physical Therapy Problem: Acute Rehab Services Goal & Intervention Plan Goal: Bed Mobility Goal Stand Alone Therapy Goal Outcome: Outcome (s) achieved Date Met: 11/04/17 10/30/17 1400 11/04/17 1630 Bed Mobility Goal Bed Mobility Goal, Date Established 10/30/17 -- Bed Mobility Goal, Time to Achieve 2 wks -- Bed Mobility Goal, Activity Type all bed mobility activities -- Bed Mobility Goal, [place] Level independent -- Bed Mobility Goal, Assistive Device (Log roll technique) -- Bed Mobility Goal, Outcome Achieved -- goal met Goal: Gait Training Goal Stand Alone Therapy Goal Outcome: Outcome (s) achieved Date Met: 11/04/17 10/30/17 1400 11/04/17 1630 Gait Training Goal Gait Training Goal, Date Established 10/30/17 -- Gait Training Goal, Time to Achieve 2 wks -- Gait Training Goal, [place] Level supervision required -- Gait Training Goal, Assist Device (LRD) -- Gait Training Goal, Distance to Achieve >150ft -- Gait Training Goal, Additional Goal Pt able to negotiate 2 steps with rail or cane and supervision -- Gait Training Goal, Outcome -- goal met * Plan of Care - June Leroy RN - 11/04/2017 2:47 PM EST Problem: Patient Care Overview Goal: Plan of Care Review Outcome: Ongoing (Interventions Implemented as Appropriate) 11/04/17 0754 11/04/17 1408 Coping/Psychosocial Plan Of Care Reviewed With patient -- Plan of Care Review Progress -- improving OUTCOME EVALUATION NOTE: OUTCOME SUMMARY: Patient progressing towards d/c goals appropriately at this time. Pt mobilizing with stand-by assist. Per pt swelling had decreased in RLE. Pt requiring straight cath q 6 hours. Neuro vascular checksremain unchanged. WIll continue to monitor and help patient reach d/c goals. PLAN MOVING FORWARD: Pain Control DVT monitor INDIVIDUALIZED FALL PREVENTION: Patient is currently a high risk to Fall. Patient specific risk factors include secondary diagnosis, IV fluid therapy. Patient educated on bed/chair alarm, demonstrates proper use of call mosqueda and verbalizes understanding of fall preventions implemented. Assistance: Patient mobilizing with Stand by assist. Patient requires minimal assistance with ADLS. Supervision: Patient requires straight cathing at this time. Surveillance: Patient monitored with bed/chair alarm, purposeful rounding, bedside Nurse Knowledge Exchange. CPG OUTCOME EVALUATION: Goal: Individualization & Mutuality Outcome: Ongoing (Interventions Implemented as Appropriate) 10/30/17 1233 Individualization Patient Specific Preferences television Patient Specific Goals pain management Patient Specific Interventions PCEA Mutuality/Individual Preferences What Anxieties, Fears or Concerns Do You Have About Your Health or Care? none What Questions Do You Have About Your Health or Care? none What Information Would Help Us Give You More Personalized Care? none Goal: Fall Prevention-Safe Patient Handling Outcome: Ongoing (Interventions Implemented as Appropriate) 11/02/17 0209 11/03/17 0423 11/04/17 0754 Musculoskeletal Interventions Muscle Strengthening activity/mobility promoted;mobility in bed promoted -- -- Activity and Safety Assistive Device None -- -- Daily Care Interventions Self-Care Promotion -- independence encouraged -- Tor[place] Fall Risk History of Falling -- -- 0 Secondary Diagnosis -- -- 15 Ambulatory Aids -- -- 0 Intravenous Therapy/Heparin/Saline Lock -- -- 20 Gait/Transferring -- -- 10 Mental Status -- -- 0 Score -- -- 45 OTHER [place] Fall Risk -- -- High Restraint Interventions Safety Promotion/Fall Prevention -- -- activity supervised;fall prevention program maintained;muscle strengthening facilitated;safety round/check completed Positioning Body Position -- -- -- 11/04/17 1005 Musculoskeletal Interventions Muscle Strengthening -- Activity and Safety Assistive Device -- Daily Care Interventions Self-Care Promotion -- [place] Fall Risk History of Falling -- Secondary Diagnosis -- Ambulatory Aids -- Intravenous Therapy/Heparin/Saline Lock -- Gait/Transferring -- Mental Status -- Score -- OTHER [place] Fall Risk -- Restraint Interventions Safety Promotion/Fall Prevention -- Positioning Body Position up in chair Goal: Infection Control Outcome: Ongoing (Interventions Implemented as Appropriate) 11/04/17 0754 Safety Interventions Isolation Precautions standard precautions maintained Infection Prevention rest/sleep promoted;single patient room provided Coping Strategies Supportive Measures active listening utilized;verbalization of feelings encouraged Goal: Discharge Needs Assessment Outcome: Ongoing (Interventions Implemented as Appropriate) 10/27/17 1727 11/02/17 0209 Discharge Needs Assessment Concerns To Be Addressed -- no discharge needs identified Readmission Within The Last 30 Days -- no previous admission in last 30 days Equipment Needed After Discharge colostomy/ostomy supplies;glucometer -- Discharge Disposition -- still a patient Current Health Anticipated Changes Related to Illness none -- Activity/Self Care Review of Systems Equipment Currently Used at Home colostomy/ostomy supplies;glucometer -- Living Environment Transportation Available car -- Goal: Interdisciplinary Rounds/Family Conf Outcome: Ongoing (Interventions Implemented as Appropriate) 11/02/17 0209 Interdisciplinary Rounds/Family Conf Participants nursing;patient;physician Problem: Pain, Acute (Adult) Goal: Acceptable Pain Control/Comfort Level Patient will demonstrate the desired outcomes by discharge/transition of care. Outcome: Ongoing (Interventions Implemented as Appropriate) 11/04/17 1441 Pain, Acute (Adult) Acceptable Pain Control/Comfort Level making progress toward outcome Problem: Health Knowledge, Opportunity to Enhance (Adult,NICU,,Obstetrics,Pediatric) Goal: Knowledgeable about Health Subject/Topic Patient will demonstrate the desired outcomes by discharge/transition of care. Outcome: Ongoing (Interventions Implemented as Appropriate) 11/04/17 1441 Health Knowledge, Opportunity to Enhance (Adult,NICU,[place],Obstetrics,Pediatric) Knowledgeable about Health Subject/Topic making progress toward outcome * Med Student Progress Note - Mali Bentley - 11/04/2017 2:16 PM EST General Surgery Resident Inpatient Progress Note ID: Adrien Cheung is a 62 y.o. male with history of DM, HTN, APR in 2012 for ypT3NO rectal adenocarcinoma with radiation therapy who has a parastomal and incisional hernia who is 6 days s/p parastomal and incisional hernia repair, ex- lap and appendectomy to relieve partial small bowel obstruction. 24hr events: ?? Pt diagnosed with DVT in RLE -- vasc surgery consulted, therapeutic heparin drip started with DANNY wrap and elevation ?? PTT overnight was sub-therapeutic at 73 -- heparin drip increased to 1300/hr with bolus Subjective: -Pt denies N/V, bloating, chest pain, SOB and dizziness -Pain -- well-controlled with PO oxycodone PRN and scheduled PO tylenol and ibuprofen -Diet -- able to tolerate solid food well -Flatus/BM -- no BM overnight, gas in ostomy -Voiding -- straight cath Q6H with no problems -Ambulation -- pt not OOB and ambulating since leg wrapped and elevated O: Last value Range last 24hrs Temperature Temp: 37.2 ??C (99 ??F) Temp: [36.7 ??C (98.1 ??F)-37.2 ??C (99 ??F)] Heart Rate Heart Rate: 126 (with ambulation) Heart Rate: -- Blood Pressure BP: 114/72 BP: (114-140)/(72-78) Respiratory Rate Resp: 17 Resp: [16-17] SpO2 SpO2: 97 % SpO2: [94 %-97 %] 11/03 0701 - 11/04 0700 In: 558 [P.O.:150; I.V.:408] Out: 1860 [Urine:1800] R MARIEL drain -- 45 cc serosanguinous fluid L MARIEL drain -- 15 cc serosanguinous fluid Physical Exam: General: Pleasant and conversant, in NAD CV: RRR, normal S1 and S2, no M/R/G Lungs: regular rate, no increased WOB, lungs CTA anteriorly bilat Abd: soft, non-distended, non-tender to palpation, binder in place, midline incision with kayy that are clean, dry, intact, stoma with gas but no stool present, no surrounding erythema, warmth or tenderness Skin: warm, dry, no evidence of cyanosis Ext: edematous RLE that is wrapped in DANNY bandage from distal thigh to foot and elevated on 3 pillows, non-tender, DP/PTs not palpated Neuro: CN 2-12 grossly intact, moving all four extremities spontaneously Recent Labs 11/04/17 0930 11/04/17 0240 11/03/17 1835 11/03/17 1108 11/02/17 0420 11/02/17 0321 WBC -- 8.1 8.8 9.2 6.8 6.6 HGB -- 9.3* 10.0* 10.7* 9.2* 9.1* HCT -- 28.4* 29.6* 32.5* 27.7* 27.1* PLATELET -- 193 181 166 132* 123* PTT 104* 73* >160* 28 -- -- Recent Labs 11/02/17 0420 NA 145 K 4.4 CL 106 CO2 26 BUN 21* CREATININE 0.45* GLUCOSE 178 CALCIUM 7.5* MAGNESIUM 0.68* PHOS 3.7 Blood glucose ranged from 128-162 with SSI administered accordingly NEW IMAGING: None ASSESSMENT: Adrien Cheung is a 62 y.o. male with a history of APR in 2012 for rectal adenocarcinoma who is POD 6 for parastomal and incisional hernia repair, ex-lap and appendectomy to relieve partial small bowel obstruction. Pt was set to discharge yesterday but had a set-back with a RLE DVT. He was started on therapeutic heparin drip, wrapped in an DANNY bandage and instructed to keep his leg elevated. From the GI perspective, he is improving. Pain is well- controlled, he is tolerating solid foods well, has minimal MARIEL drainage and no signs of wound infection, is ambulating with PT and is passing gas and some stool intohis ostomy. Plan is to follow-up with vascular surgery regarding his hospital course for the DVT, as he is medically ready for discharge from a general surgery standpoint. Encourage PO intake as tolerated and ambulation. Left MARIEL drain can be removed today. Pt has been switched from all IV to PO meds except forIV heparin drip -- plan to follow-up with vascular surgery for recs on PO DVT treatment. PLAN: DIET: solid foods as tolerated NEURO: Continue PO meds -- scheduled Tylenol and ibuprofen, oxycodone PRN CV: vitals stable, continue home lisinopril and lipitor PULM: continue aggressive incentive spirometry and encourage ambulation GI: IV pantoprazole for GI ppx until discharge, Zofran PRN : continue straight cath Q6H (as pt has sx of urinary retention at baseline) FEK: fluids and lytes appropriate ID: none HEME: 1300 units/hr IV heparin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 outcomes by discharge/transition of care. Outcome: Ongoing (Interventions Implemented as Appropriate) 11/02/17208 Pain, Acute (Adult) Acceptable Pain Control/Comfort Level making progress toward outcome Problem: Health Knowledge, Opportunity to Enhance (Adult,NICU,,Obstetrics,Pediatric) Goal: Identify Related Risk Factors and Signs and Symptoms Related risk factors and signs and symptoms are identified upon initiation of Human Response Clinical Practice Guideline (CPG) Outcome: Ongoing (Interventions Implemented as Appropriate) 11/02/17208 Health Knowledge, Opportunity to Enhance Signs and Symptoms (Health Knowledge Enhance) information requested Goal: Knowledgeable about Health Subject/Topic Patient will demonstrate the desired outcomes by discharge/transition of care. Outcome: Ongoing (Interventions Implemented as Appropriate) 11/02/17208 Health Knowledge, Opportunity to Enhance (Adult,NICU,[place],Obstetrics,Pediatric) Knowledgeable about Health Subject/Topic making progress toward outcome Problem: Acute Rehab Services Goal & Intervention Plan Goal: Bed Mobility Goal Stand Alone Therapy Goal Outcome: Ongoing (Interventions Implemented as Appropriate) 10/30/17 1400 11/02/17 1434 Bed Mobility Goal Bed Mobility Goal, Date Established 10/30/17 -- Bed Mobility Goal, Time to Achieve 2 wks -- Bed Mobility Goal, Activity Type all bed mobility activities -- Bed Mobility Goal, [place] Level independent -- Bed Mobility Goal, Assistive Device (Log roll technique) -- Bed Mobility Goal, Outcome Achieved -- goal ongoing Goal: Gait Training Goal Stand Alone Therapy Goal Outcome: Ongoing (Interventions Implemented as Appropriate) 10/30/17 1400 11/02/17 1434 Gait Training Goal Gait Training Goal, Date Established 10/30/17 -- Gait Training Goal, Time to Achieve 2 wks -- Gait Training Goal, [place] Level supervision required -- Gait Training Goal, Assist Device (LRD) -- Gait Training Goal, Distance to Achieve >150ft -- Gait Training Goal, Additional Goal Pt able to negotiate 2 steps with rail or cane and supervision -- Gait Training Goal, Outcome -- goal ongoing Goal: Home Management Goal Stand Alone Therapy Goal Outcome: Ongoing (Interventions Implemented as Appropriate) 10/30/17 1443 Home Management Goal Home Mgmt Goal, Date Established 10/30/17 Home Mgmt Goal, Time To Achieve by discharge Home Mgmt Goal, Activity Type Pt will mobilize house hold distances for home management modified independent. Goal: LB Dressing Goal Stand Alone Therapy Goal Outcome: Ongoing (Interventions Implemented as Appropriate) 10/30/17 1443 LB Dressing Goal LB Dressing Goal, Date Established 10/30/17 LB Dressing Goal, Time to Achieve by discharge LB Dressing Goal, Activity Type Pt will dress LB with adaptive equipment, as needed, independently. * Med Student Progress Note - Mali Bentley - 11/02/2017 7:04 PM EST General Surgery Resident Inpatient Progress Note ID: Adrien Cheung is a 62 y.o. male with history of DM, HTN, APR in 2012 for ypT3NO rectal adenocarcinoma with radiation therapy who has a parastomal and incisional hernia who is 4 days s/p parastomal and incisional hernia repair, ex- lap and appendectomy to relieve partial small bowel obstruction. 24hr events: ?? No acute events overnight, afebrile and vitals stable ?? Ostomy with 525 cc of stool ?? Pt weaned off O2 and maintaining O2 sats >92% on RA ?? Pt remains on TPN at 100cc/hr Subjective: -Pt denies N/V, bloating, chest pain, SOB, dizziness -Pain -- well-controlled with fentanyl PCEA, dilauded PRN -Diet -- tolerating clears well, TPN -Flatus/BM -- stool and gas in ostomy -Voiding -- straight cath Q6H with no problems -Ambulation -- pt OOB with PT walking around floor O: Last value Range last 24hrs Temperature Temp: 36.8 ??C (98.2 ??F) Temp: [36.8 ??C (98.2 ??F)-37.6 ??C (99.7 ??F)] Heart Rate Heart Rate: 126 (with ambulation) Heart Rate: [126] Blood Pressure BP: 129/75 BP: (122-132)/(68-75) Respiratory Rate Resp: 18 Resp: [16-18] SpO2 SpO2: 96 % SpO2: [93 %-96 %] 11/01 701 - 11/02 700 In: 5016.3 [P.O.:1130] Out: 2810 [Urine:2049] R MARIEL drain -- 115 cc serosanguinous fluid L MARIEL drain -- 70 cc serosanguinous fluid Physical Exam: General: Pleasant and conversant, in NAD Abd: soft, non-distended, non-tender to palpation, binder in place, midline incision with kayy that are clean, dry, intact, stoma with stool,gas present with no surrounding erythema, warmth or tenderness Skin: warm, dry, no evidence of cyanosis Neuro: CN 2-12 grossly intact, moving all four extremities spontaneously Recent Labs 11/02/17 0420 11/02/17 0321 10/31/17 0601 WBC 6.8 6.6 8.8 HGB 9.2* 9.1* 10.4* HCT 27.7* 27.1* 31.9* PLATELET 132* 123* 117* Recent Labs 11/02/17 0420 10/31/17 0601 NA 145 148* K 4.4 4.6 CL 106 110* CO2 26 28 BUN 21* 26* CREATININE 0.45* 0.58* GLUCOSE 178 184 CALCIUM 7.5* 7.7* MAGNESIUM 0.68* 0.78 PHOS 3.7 3.6 11/01 2000 -- 192 (2 units lispro given) 11/01 2300 -- 153 (1 unit lispro given) 11/01 400 -- 180 (2 units lispro given) 11/01 07 -- 160 (1 units lispro given) NEW IMAGING: None ASSESSMENT: Adrien Cheung is a 62 y.o. male with a history of APR in 2012 for rectal adenocarcinoma who is POD 4 for parastomal and incisional hernia repair, ex-lap and appendectomy to relieve partial small bowel obstruction. He continues to improve -- pain well-controlled, maintaining appropriate urine output, moving bowels with stool and gas in ostomy, vitals and labs stable with no acute events. Plan to advance diet today to soft, bland foods, and re- evaluate need for TPN once PO intake is sufficient and he continuesto move his bowels with no N/V or distension. Once PO intake is sufficient, epidural can be removedand pain regimen can be converted to PO meds. Glucose control is improved, with goal to keep tight control <180 for infection prevention. Keep MARIEL drains until output <25-30 cc and keep binder in place when ambulating. PLAN: DIET: advance to soft bland foods, continue TPN at 100 mL/hr until PO intake adequate NEURO: Fentanyl PCEA, switch to PO meds -- Tylenol, ibuprofen CV: vitals stable, holding home lisinopril and lipitor PULM: pt off O2 and maintaining sats >92% on RA, continue aggressive incentive spirometry GI: IV pantoprazole for GI ppx, Zofran PRN : continue straight cath Q6H (as pt has sx of urinary retention at baseline) FEK: fluids and lytes appropriate ID: none HEME: lovenox for DVT ppx ENDO: SSI to maintain BGs <180 OTHER: Encourage ambulation DISPO: pt likely discharged to home with VNA in 1-2 days pending continued improvement Mali Bentley, MS3 [facility] [employer] [facility] Resident: Rene Gonsales DO Attending: Dick Thakur MD * Plan of Care - Key Bell, PT - 11/02/2017 2:36 PM EST Problem: Patient Care Overview Goal: Plan of Care Review Outcome: Ongoing (Interventions Implemented as Appropriate) 11/02/17 1434 Coping/Psychosocial Plan Of Care Reviewed With patient Plan of Care Review Progress improving Physical Therapy Note Treatment Number: 2 Pertinent History of Current Problem: Pt is a 62 yo M with a history of DM, HTN, APR in 04/2013 forypT3 N0 adenocarcinoma of the rectum, with parastomal hernia and incisional hernia who presents with malaise, nausea and vomiting for past week who underwent the following procedures on 10/29/17: 1) Ventral hernia repair with mesh 2) Parastomal hernia repair with mesh3) Lysis of adhesions for 3 hours 4) Appendectomy 5) Umbilicoplasty. Past Medical History: Active Non-Hospital Problems Diagnosis ??? Ostomy nurse consultation ??? Partial small bowel obstruction ??? Snoring ??? 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 He has 2 TYRELL and can use doorframe for support. Prior Functional Level Comment: Pt is independent without an AD. Assessment: Pt seen for PT treatment including gait training. Pt able to ambulate around unit with supervision pushing IV pole. Pt mildly SOB with activity, but tolerated well. Pt to be seen for 1 more visit prior to discharge to assess need for AD and stairs. He will benefit from further skilled therapy while in the hospital. Please see the Rehab Evaluation Summaries section for detailed objective data and specifics of today's session. Mobility Recommendations: Supervision with IV pole Anticipated Physical Therapy Frequency: 1-3 more visits Anticipated Equipment Needs at Discharge: (TBD closer to d/c) Anticipated Discharge Disposition: home with assist Pager: [phone] KEY BELL, PT 11/02/2017 Physical Therapy Rehabilitation Department Problem: Acute Rehab Services Goal & Intervention Plan Goal: Bed Mobility Goal Stand Alone Therapy Goal Outcome: Ongoing (Interventions Implemented as Appropriate) 10/30/17 1400 11/02/17 1434 Bed Mobility Goal Bed Mobility Goal, Date Established 10/30/17 -- Bed Mobility Goal, Time to Achieve 2 wks -- Bed Mobility Goal, Activity Type all bed mobility activities -- Bed Mobility Goal, [place] Level independent -- Bed Mobility Goal, Assistive Device (Log roll technique) -- Bed Mobility Goal, Outcome Achieved -- goal ongoing Goal: Gait Training Goal Stand Alone Therapy Goal Outcome: Ongoing (Interventions Implemented as Appropriate) 10/30/17 1400 11/02/17 1434 Gait Training Goal Gait Training Goal, Date Established 10/30/17 -- Gait Training Goal, Time to Achieve 2 wks -- Gait Training Goal, [place] Level supervision required -- Gait Training Goal, Assist Device (LRD) -- Gait Training Goal, Distance to Achieve >150ft -- Gait Training Goal, Additional Goal Pt able to negotiate 2 steps with rail or cane and supervision -- Gait Training Goal, Outcome -- goal ongoing Goal: Goal Transfer Training Stand Alone Therapy Goal Outcome: Outcome (s) achieved Date Met: 11/02/17 10/30/17 1400 11/02/17 1434 Goal Transfer Training Transfer Training Goal, Date Established 10/30/17 -- Transfer Training Goal, Time to Achieve 2 wks -- Transfer Training Goal, Activity Type ner-vf-sqzmo/plfwb-wj-erb;dae-ly-hrfhg/dslsa-bw-xjp -- Transfer Train Goal, [place] Level supervision required -- Transfer Training Goal, Assist Device (LRD) -- Transfer Training Goal, Outcome -- goal met * Plan of Care - Gudelia Camacho RN - 11/02/2017 2:12 AM EST Problem: Patient Care Overview Goal: Plan of Care Review Outcome: Ongoing (Interventions Implemented as Appropriate) 11/02/17 0209 Coping/Psychosocial Plan Of Care Reviewed With patient Plan of Care Review Progress improving OUTCOME EVALUATION NOTE: OUTCOME SUMMARY: Patient progressing towards d/c goals appropriately at this time. Patients pain adequately controlled, see MAR for medications given. Abdominal binder on. MARIEL X 2 and colostomy intact, see doc flowsheets for output. Fingersticks covered appropriately, see MAR. PCEA intact. TPN continued. Patient tolerating clear liquid diet well. Straight cath q6, see doc flowsheets. Will continue to monitor and help patient reach d/c goals. PLAN MOVING FORWARD: Pain control Mobilize D/c planning INDIVIDUALIZED FALL PREVENTION: Patient is currently a high risk to Fall. Patient educated on bed/chair alarm, demonstrates proper use of call mosqueda and verbalizes understanding of fall preventions implemented. Patient-specific fall risk factors per assessment: [current deficits]: IV tubing, Pain, Medications, Hospital Environment. Assistance [level of assistance required for transfers and ambulation]: One assist Supervision [direct monitoring required during toileting and ADLs]: One assistance with ADL's Surveillance [continuous indirect monitoring]: Keo, Purposeful Rounding, Bedside Report Patient-specific fall prevention interventions for sensory deficits provided, if applicable: [X] Yes CPG GOAL OUTCOME EVALUATION: Goal: Individualization & Mutuality Outcome: Ongoing (Interventions Implemented as Appropriate) 10/30/17 1233 Individualization Patient Specific Goals pain management Goal: Fall Prevention-Safe Patient Handling Outcome: Ongoing (Interventions Implemented as Appropriate) 11/01/17212711/02/17208 Musculoskeletal Interventions Muscle Strengthening -- activity/mobility promoted;mobility in bed promoted Activity and Safety Assistive Device -- None Daily Care Interventions Self-Care Promotion -- independence encouraged;BADL personal objects within reach;BADL personal routines maintained;safe use of adaptive equipment encouraged [place] Fall Risk History of Falling 0 -- Secondary Diagnosis 15 -- Ambulatory Aids 0 -- Intravenous Therapy/Heparin/Saline Lock 20 -- Gait/Transferring 0 -- Mental Status 0 -- Score 35 -- OTHER [place] Fall Risk Med -- Restraint Interventions Safety Promotion/Fall Prevention activity supervised;fall prevention program maintained;nonskid shoes/slippers when out of bed;safety round/check completed -- Positioning Body Position supine, head elevated -- Goal: Infection Control Outcome: Ongoing (Interventions Implemented as Appropriate) 11/01/172127 Safety Interventions Isolation Precautions standard precautions maintained Infection Prevention rest/sleep promoted;single patient room provided Coping Strategies Supportive Measures active listening utilized;goal setting facilitated;self-care encouraged;verbalization of feelings encouraged Goal: Discharge Needs Assessment Outcome: Ongoing (Interventions Implemented as Appropriate) 11/02/17208 Discharge Needs Assessment Concerns To Be Addressed no discharge needs identified Readmission Within The Last 30 Days no previous admission in last 30 days Discharge Disposition still a patient Goal: Interdisciplinary Rounds/Family Conf Outcome: Ongoing (Interventions Implemented as Appropriate) 11/02/17208 Interdisciplinary Rounds/Family Conf Participants nursing;patient;physician Problem: Pain, Acute (Adult) Goal: Acceptable Pain Control/Comfort Level Patient will demonstrate the desired outcomes by discharge/transition of care. Outcome: Ongoing (Interventions Implemented as Appropriate) 11/02/17208 Pain, Acute (Adult) Acceptable Pain Control/Comfort Level making progress toward outcome Problem: Health Knowledge, Opportunity to Enhance (Adult,NICU,,Obstetrics,Pediatric) Goal: Identify Related Risk Factors and Signs and Symptoms Related risk factors and signs and symptoms are identified upon initiation of Human Response Clinical Practice Guideline (CPG) Outcome: Ongoing (Interventions Implemented as Appropriate) 11/02/17208 Health Knowledge, Opportunity to Enhance Signs and Symptoms (Health Knowledge Enhance) information requested Goal: Knowledgeable about Health Subject/Topic Patient will demonstrate the desired outcomes by discharge/transition of care. Outcome: Ongoing (Interventions Implemented as Appropriate) 11/02/17208 Health Knowledge, Opportunity to Enhance (Adult,NICU,,Obstetrics,Pediatric) Knowledgeable about Health Subject/Topic making progress toward outcome * Plan of Care - Riley Gonzales RN - 11/01/2017 8:21 AM EST Problem: Patient Care Overview Goal: Plan of Care Review Outcome: Ongoing (Interventions Implemented as Appropriate) 10/30/17 1753 10/31/17 1318 Coping/Psychosocial Plan Of Care Reviewed With -- patient Plan of Care Review Progress progress toward functional goals as expected -- OUTCOME EVALUATION NOTE: OUTCOME SUMMARY: Pt denies pain, has Bupivicaine epidural infusing. TPN running at 100 ml/hr to PICC-TL LUE, pt NPO,tolerating ice chips well. FS QID, covered with 2 units of Novolog each time. Colostomy with soft brown stool, MARIEL x2 with scant amount of serosanguinous fluid. Midline abdominal incision ROXY with kayy intact, abdominal binder on. Pt straight cathed per MD order once overnight, 175 ml of CYU obtained. PLAN MOVING FORWARD: Pain control, advance diet, oral pain meds, dc planning, monitor urine output INDIVIDUALIZED FALL PREVENTION INTERVENTIONS: Patient-specific fall risk factors per assessment: [current deficits]: Generalized weakness Assistance [level of assistance required for transfers and ambulation]: bedrest Supervision [direct monitoring required during toileting and ADLs]: One assist Surveillance [continuous indirect monitoring]: Zak,hourly rounding. Patient-specific fall prevention interventions for sensory deficits provided, if applicable: [X] Yes CPG GOAL OUTCOME EVALUATION: Goal: Individualization & Mutuality Outcome: Ongoing (Interventions Implemented as Appropriate) 10/30/17 1233 Individualization Patient Specific Preferences television Patient Specific Goals pain management Patient Specific Interventions PCEA Mutuality/Individual Preferences What Anxieties, Fears or Concerns Do You Have About Your Health or Care? none What Questions Do You Have About Your Health or Care? none What Information Would Help Us Give You More Personalized Care? none Goal: Fall Prevention-Safe Patient Handling Outcome: Ongoing (Interventions Implemented as Appropriate) 10/31/17 1318 10/31/172034 [place] Fall Risk History of Falling -- 0 Secondary Diagnosis -- 15 Ambulatory Aids -- 0 Intravenous Therapy/Heparin/Saline Lock -- 20 Gait/Transferring -- 10 Mental Status -- 0 Score -- 45 OTHER [place] Fall Risk -- High Restraint Interventions Safety Promotion/Fall Prevention activity supervised;fall prevention program maintained;nonskid shoes/slippers when out of bed;safety round/check completed -- Positioning Body Position -- independent Goal: Infection Control Outcome: Ongoing (Interventions Implemented as Appropriate) 10/31/17 1318 Safety Interventions Isolation Precautions standard precautions maintained Infection Prevention single patient room provided;rest/sleep promoted;environmental surveillance performed Coping Strategies Supportive Measures active listening utilized;verbalization of feelings encouraged Goal: Discharge Needs Assessment Outcome: Ongoing (Interventions Implemented as Appropriate) 10/27/17 1727 10/30/17 1232 Discharge Needs Assessment Concerns To Be Addressed -- no discharge needs identified Readmission Within The Last 30 Days -- no previous admission in last 30 days (unplanned readmission) Equipment Needed After Discharge colostomy/ostomy supplies;glucometer -- Discharge Disposition still a patient -- Current Health Anticipated Changes Related to Illness none -- Activity/Self Care Review of Systems Equipment Currently Used at Home colostomy/ostomy supplies;glucometer -- Living Environment Transportation Available car -- Goal: Interdisciplinary Rounds/Family Conf Outcome: Ongoing (Interventions Implemented as Appropriate) 10/28/17 0220 Interdisciplinary Rounds/Family Conf Participants patient;physician;nursing Problem: Pain, Acute (Adult) Goal: Acceptable Pain Control/Comfort Level Patient will demonstrate the desired outcomes by discharge/transition of care. Outcome: Ongoing (Interventions Implemented as Appropriate) 10/30/17 1231 Pain, Acute (Adult) Acceptable Pain Control/Comfort Level making progress toward outcome Problem: Health Knowledge, Opportunity to Enhance (Adult,NICU,[place],Obstetrics,Pediatric) Goal: Knowledgeable about Health Subject/Topic Patient will demonstrate the desired outcomes by discharge/transition of care. Outcome: Ongoing (Interventions Implemented as Appropriate) 10/30/17 1231 Health Knowledge, Opportunity to Enhance (Adult,NICU,,Obstetrics,Pediatric) Knowledgeable about Health Subject/Topic making progress toward outcome Problem: Acute Rehab Services Goal & Intervention Plan Goal: Bed Mobility Goal Stand Alone Therapy Goal Outcome: Ongoing (Interventions Implemented as Appropriate) 10/30/17 1400 Bed Mobility Goal Bed Mobility Goal, Date Established 10/30/17 Bed Mobility Goal, Time to Achieve 2 wks Bed Mobility Goal, Activity Type all bed mobility activities Bed Mobility Goal, [place] Level independent Bed Mobility Goal, Assistive Device (Log roll technique) Goal: Gait Training Goal Stand Alone Therapy Goal Outcome: Ongoing (Interventions Implemented as Appropriate) 10/30/17 1400 Gait Training Goal Gait Training Goal, Date Established 10/30/17 Gait Training Goal, Time to Achieve 2 wks Gait Training Goal, [place] Level supervision required Gait Training Goal, Assist Device (LRD) Gait Training Goal, Distance to Achieve >150ft Gait Training Goal, Additional Goal Pt able to negotiate 2 steps with rail or cane and supervision Goal: Home Management Goal Stand Alone Therapy Goal Outcome: Ongoing (Interventions Implemented as Appropriate) 10/30/17 1443 Home Management Goal Home Mgmt Goal, Date Established 10/30/17 Home Mgmt Goal, Time To Achieve by discharge Home Mgmt Goal, Activity Type Pt will mobilize house hold distances for home management modified independent. Goal: LB Dressing Goal Stand Alone Therapy Goal Outcome: Ongoing (Interventions Implemented as Appropriate) 10/30/17 1443 LB Dressing Goal LB Dressing Goal, Date Established 10/30/17 LB Dressing Goal, Time to Achieve by discharge LB Dressing Goal, Activity Type Pt will dress LB with adaptive equipment, as needed, independently. Goal: Goal Transfer Training Stand Alone Therapy Goal Outcome: Ongoing (Interventions Implemented as Appropriate) 10/30/17 1400 Goal Transfer Training Transfer Training Goal, Date Established 10/30/17 Transfer Training Goal, Time to Achieve 2 wks Transfer Training Goal, Activity Type rau-zn-zcfbr/spyar-xh-nag;lql-iv-tqjxs/dgpal-bb-yyo Transfer Train Goal, [place] Level supervision required Transfer Training Goal, Assist Device (LRD) * Med Student Progress Note - Mali Bentley - 10/31/2017 10:04 AM EST General Surgery Resident Inpatient Progress Note ID: Adrien Cheung is a 62 y.o. male with history of DM, HTN, APR in 2012 for ypT3NO rectal adenocarcinoma with radiation therapy who has a parastomal and incisional hernia who is 2 days s/p parastomal and incisional hernia repair, ex- lap and appendectomy to relieve partial small bowel obstruction. 24hr events: ?? No acute events overnight ?? Ostomy with about 100 cc of stool ?? NGT with 1.6 L less bilious, more clear output ?? Pt still on 4 L NC to maintain O2 sats >92% overnight ?? Pt remains on TPN Subjective: -Pt states pain is well-controlled with fentanyl PCEA and IV dilaudid PRN -Pt denies, fever, chills, night sweats, N/V, chest pain, SOB, dizziness -Pt OOB to chair with assistance O: Last value Range last 24hrs Temperature Temp: 37.2 ??C (99 ??F) Temp: [35.5 ??C (95.9 ??F)-37.3 ??C (99.1 ??F)] Heart Rate Heart Rate: 98 Heart Rate: [98] Blood Pressure BP: 117/72 BP: (117-123)/(72-77) Respiratory Rate Resp: 16 Resp: [16-18] SpO2 SpO2: 93 % SpO2: [93 %-98 %] 10/30 07 - 10/31 0700 In: 2706.2 [P.O.:80; I.V.:2309] Out: 3430 [Urine:1690] -[place]arte -- 1.6 L -NGT -- 1.6 L R MARIEL drain -- 80 cc L MARIEL drain -- 60 cc Physical Exam: General: Pleasant and conversant, in NAD Abd: soft, non-distended, mild tenderness to palpation in LLQ and RLQ, binder in place, midline incision covered with dressing that is clean, dry, intact, stoma with stool present : Uriarte in place draining light yellow urine Skin: warm, dry, no evidence of cyanosis Neuro: CN 2-12 grossly intact, moving all four extremities spontaneously Recent Labs 10/31/17 0601 10/30/17 0500 10/29/17 0240 WBC 8.8 8.4 7.2 HGB 10.4* 11.2* 10.6* HCT 31.9* 33.8* 31.2* PLATELET 117* 134* 160 Recent Labs 10/31/17 0601 10/30/17 0500 10/29/17 0240 NA 148* 145 139 K 4.6 4.7 3.8 CL 110* 107 99 CO2 28 29 25 BUN 26* 24* 26* CREATININE 0.58* 0.62* 0.58* GLUCOSE 184 216* 213* CALCIUM 7.7* 7.7* 7.8* MAGNESIUM 0.78 0.79 0.70 PHOS 3.6 2.9 2.1* B/1 at 1200 -- 216 10/30 at 1600 -- 238 10/31 at 0400 -- 169 NEW IMAGING: None ASSESSMENT: Adrien Cheung is a 62 y.o. male with a history of APR in 2012 for rectal adenocarcinoma who is POD 2 for parastomal and incisional hernia repair, ex-lap and appendectomy to relieve partial small bowel obstruction. He is doing very well this AM -- pain controlled, maintaining appropriate urine output, moving bowels with stool in ostomy, vitals and labs stable. Plan to do NGT clamp trial today and remove if less than 150cc output. Encourage ambulation and use of incentive spirometer.Wean off O2. PLAN: DIET: TPN at 100 mL/hr with regular insulin for BG <180s NEURO: Fentanyl PCEA, IV Dilauded PRN, IV acetaminophen Q8H CV: vitals stable, holding home lisinopril and lipitor PULM: aggressive incentive spirometry, PEP, wean off O2 nasal cannula GI: clamp trial for NGT today, remove if output <150cc, IV pantoprazole for GI ppx, Zofran PRN : remove Uriarte, bladder scans FEK: appropriate fluid and electrolyte balance ID: none HEME: lovenox for DVT ppx ENDO: increase lispro sliding scale as needed to maintain BGs <180 OTHER: Encourage ambulation DISPO: pt likely discharged to home in 3-5 days pending return to bowel function and post-op course Mali Bentley, MS3 [facility] [employer] [facility] Resident: Rene Gonsales DO Attending: Edin Obrien MD * Plan of Care - Carlos Montes RN - 10/31/2017 5:20 AM EST Problem: Patient Care Overview Goal: Plan of Care Review Outcome: Ongoing (Interventions Implemented as Appropriate) 10/30/17 1753 10/31/17 0300 Coping/Psychosocial Plan Of Care Reviewed With -- patient Plan of Care Review Progress progress toward functional goals as expected -- OUTCOME EVALUATION NOTE: OUTCOME SUMMARY: This patients skin remains intact at this time with no reddened areas. Pt currently repositioning self in bed every 2 hrs. Pt verbalizes understanding to reposition self every 2 hrs to prevent skin breakdown and alert nurse when help is needed to do so. Will continue to monitor. This patient reports that his pain is adequately managed with the ordered medication regiment. This patient denies chest pain, shortness of breath, and nausea. The patients dressing to the midline abdomen remains clean,dry, and intact. Pt with some stool output in the colostomy. Last recorded vital signs: Last value Temperature Temp: 37.3 ??C (99.1 ??F) Heart Rate Heart Rate: 98 Blood Pressure BP: 119/74 Respiratory Rate Resp: 16 SpO2 SpO2: 97 % Recorded I/O: I/O this shift: In: 80 [P.O.:80] Out: 890 [Urine:840; Other:50] PLAN MOVING FORWARD: The plan moving forward with this patient is to work with PT/OT to increase this patients independence with ADLs. INDIVIDUALIZED FALL PREVENTION INTERVENTIONS: Patient-specific fall risk factors per assessment: [current deficits]: This patient has decreased general mobility and sensory impairment in relation to receiving the medication epidural. Assistance [level of assistance required for transfers and ambulation]: This patient requires 1 assist and a walker to ambulate. Supervision [direct monitoring required during toileting and ADLs]: This patient requires 1 assist with ADLs. Surveillance [continuous indirect monitoring]: Brenden nursing knowledge exchange, purposeful rounding. Patient has history of: Past Medical History: Diagnosis Date ??? DM (diabetes mellitus) type 2 ??? ED (erectile dysfunction) ??? Gout ??? HTN (hypertension) ??? Hypercoagulable state Protein S deficiency ??? Hyperlipemia ??? Obesity ??? 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 Rectal cancer Past Surgical History: Procedure Laterality Date ??? COLONOSCOPY 12/17/2012 discovered rectal invasive adenocarcinoma ??? NASAL POLYP SURGERY ??? PILONIDAL CYST EXCISION ??? PRO ADJ TISS XFER SCALP, EXTREM 10.1-30 05/11/2013 ADJ.TISSUE TRANSFER, REARRANGEMENT, 10.1 TO 30 SQ.CM, LEGS performed by Oscar Soto MD at [facility] OR ??? PRO COLONOSCOPY, DIAGNOSTIC N/A 03/23/2015 COLONOSCOPY, DIAGNOSTIC performed by Bobby Hills MD at [facility] ENDOSCOPY ??? PRO CYSTOSCOPY, INSERT URETERAL STENT 05/11/2013 CYSTO, STENT PLACEMENT INTRAOP, TEMPORARY performed by Mark Khan MD at [facility] OR ??? PRO EXCLUSION, SMALL BOWEL FROM PELVIS 05/11/2013 @EXCLUSION OF SMALL INTESTINE FROM PELVIS performed by Bobby Hills MD at [facility] OR ??? PRO EXPLORATORY OF ABDOMEN N/A 10/29/2017 @EXPLORATORY LAPAROTOMY, WITH/WITHOUT BIOPSY(S) (WRVU 12.54) performed by Vivian Washington MD [facility] OR ??? PRO LAP, SURG PROCTECTOMY W COLOSTOMY 05/11/2013 @LAPAROSCOPIC PROCTECTOMY, COMPLETE, APR W COLOSTOMY performed by Bobby Hills MD at [facility] OR ??? PRO MUSCLE-SKIN FLAP, LEG 05/11/2013 FLAP, MYOCUTANEOUS OR FASCIOCUTANEOUS, LOWER EXTREMITY performed by Oscar Soto MD at [facility] OR ??? PRO OMENTAL FLAP, INTRA-ABDOMINAL 05/11/2013 @OMENTAL FLAP, INTRA-ABDOMINAL performed by Mark Khan MD at [facility] OR ??? PRO REMOVE ABD LYMPH NODES RAD REGNL 05/11/2013 @LYMPHADENECTOMY,ABDOMINAL,REGIONAL,MULTIPLE NODES performed by Bobby Hills MD at [facility] OR ??? PRO REPAIR INCISIONAL HERNIA, REDUCIBLE N/A 10/29/2017 REPAIR INITIAL INCISIONAL OR VENTRAL HERNIA REDUCIBLE (WRVU 11.92) performed by Vivian Washington MD at [facility] OR ? ? PRO UNLISTED PX ABD PRTM&OMENTUM N/A 10/29/2017 INCARCERATED PARASTOMAL HERNIA REPAIR (WRVU 11.1) performed by Vivian Washington MD at [facility] OR ??? TONSILLECTOMY AND ADENOIDECTOMY ??? VASECTOMY Patient has following SCHEDULED medications: ??? acetaminophen 1,000 mg Intravenous Q8H FAITH ??? insulin lispro 1-4 Units Subcutaneous Q4H ??? Neuraxial/Epidural shift total and Settings verification Epidural 2 Times Daily- Neuraxial Shift Total ??? sodium chloride 0.9 % 5 mL Intravenous BID ??? heparin (Porcine) 5,000 Units Subcutaneous BID ??? pantoprazole 40 mg Intravenous Daily Patient has following PRN medications: lidocaine, phenol 1.4%, naloxone, nalbuphine, dextrose 50% OR glucagon (human recombinant), sodium chloride 0.9 %, lidocaine, HYDROmorphone, ondansetron, flu vacc (6 mos-64 yrs)(PF) CPG GOAL OUTCOME EVALUATION: Goal: Individualization & Mutuality Outcome: Ongoing (Interventions Implemented as Appropriate) 10/30/17 1233 Individualization Patient Specific Preferences television Patient Specific Goals pain management Patient Specific Interventions PCEA Mutuality/Individual Preferences What Anxieties, Fears or Concerns Do You Have About Your Health or Care? none What Questions Do You Have About Your Health or Care? none What Information Would Help Us Give You More Personalized Care? none Goal: Fall Prevention-Safe Patient Handling Outcome: Ongoing (Interventions Implemented as Appropriate) 10/30/17 0800 10/31/17 0300 [place] Fall Risk History of Falling -- 0 Secondary Diagnosis -- 15 Ambulatory Aids -- 0 Intravenous Therapy/Heparin/Saline Lock -- 20 Gait/Transferring -- 10 Mental Status -- 0 Score -- 45 OTHER [place] Fall Risk -- High Restraint Interventions Safety Promotion/Fall Prevention -- activity supervised;fall prevention program maintained;nonskid shoes/slippers when out of bed;safety round/check completed Positioning Body Position supine;supine, head elevated -- Goal: Infection Control Outcome: Ongoing (Interventions Implemented as Appropriate) 10/31/17 0300 Safety Interventions Isolation Precautions standard precautions maintained Infection Prevention rest/sleep promoted;single patient room provided Coping Strategies Supportive Measures active listening utilized;goal setting facilitated;problem solving facilitated;self-care encouraged;verbalization of feelings encouraged Goal: Discharge Needs Assessment Outcome: Ongoing (Interventions Implemented as Appropriate) 10/27/17 1727 10/30/17 1232 Discharge Needs Assessment Concerns To Be Addressed -- no discharge needs identified Readmission Within The Last 30 Days -- no previous admission in last 30 days (unplanned readmission) Equipment Needed After Discharge colostomy/ostomy supplies;glucometer -- Discharge Disposition still a patient -- Current Health Anticipated Changes Related to Illness none -- Activity/Self Care Review of Systems Equipment Currently Used at Home colostomy/ostomy supplies;glucometer -- Living Environment Transportation Available car -- Goal: Interdisciplinary Rounds/Family Conf Outcome: Ongoing (Interventions Implemented as Appropriate) 10/28/17 0220 Interdisciplinary Rounds/Family Conf Participants patient;physician;nursing Problem: Pain, Acute (Adult) Goal: Acceptable Pain Control/Comfort Level Patient will demonstrate the desired outcomes by discharge/transition of care. Outcome: Ongoing (Interventions Implemented as Appropriate) 10/30/17 1231 Pain, Acute (Adult) Acceptable Pain Control/Comfort Level making progress toward outcome Problem: Health Knowledge, Opportunity to Enhance (Adult,NICU,,Obstetrics,Pediatric) Goal: Knowledgeable about Health Subject/Topic Patient will demonstrate the desired outcomes by discharge/transition of care. Outcome: Ongoing (Interventions Implemented as Appropriate) 10/30/17 1231 Health Knowledge, Opportunity to Enhance (Adult,NICU,,Obstetrics,Pediatric) Knowledgeable about Health Subject/Topic making progress toward outcome Problem: Acute Rehab Services Goal & Intervention Plan Goal: Bed Mobility Goal Stand Alone Therapy Goal Outcome: Ongoing (Interventions Implemented as Appropriate) 10/30/17 1400 Bed Mobility Goal Bed Mobility Goal, Date Established 10/30/17 Bed Mobility Goal, Time to Achieve 2 wks Bed Mobility Goal, Activity Type all bed mobility activities Bed Mobility Goal, [place] Level independent Bed Mobility Goal, Assistive Device (Log roll technique) Goal: Gait Training Goal Stand Alone Therapy Goal Outcome: Ongoing (Interventions Implemented as Appropriate) 10/30/17 1400 Gait Training Goal Gait Training Goal, Date Established 10/30/17 Gait Training Goal, Time to Achieve 2 wks Gait Training Goal, [place] Level supervision required Gait Training Goal, Assist Device (LRD) Gait Training Goal, Distance to Achieve >150ft Gait Training Goal, Additional Goal Pt able to negotiate 2 steps with rail or cane and supervision Goal: Home Management Goal Stand Alone Therapy Goal Outcome: Ongoing (Interventions Implemented as Appropriate) 10/30/17 1443 Home Management Goal Home Mgmt Goal, Date Established 10/30/17 Home Mgmt Goal, Time To Achieve by discharge Home Mgmt Goal, Activity Type Pt will mobilize house hold distances for home management modified independent. Goal: LB Dressing Goal Stand Alone Therapy Goal Outcome: Ongoing (Interventions Implemented as Appropriate) 10/30/17 1443 LB Dressing Goal LB Dressing Goal, Date Established 10/30/17 LB Dressing Goal, Time to Achieve by discharge LB Dressing Goal, Activity Type Pt will dress LB with adaptive equipment, as needed, independently. Goal: Goal Transfer Training Stand Alone Therapy Goal Outcome: Ongoing (Interventions Implemented as Appropriate) 10/30/17 1400 Goal Transfer Training Transfer Training Goal, Date Established 10/30/17 Transfer Training Goal, Time to Achieve 2 wks Transfer Training Goal, Activity Type xej-ra-vqihq/ovhrq-bx-mfs;xxu-gz-rukmw/hxizg-ih-qmo Transfer Train Goal, [place] Level supervision required Transfer Training Goal, Assist Device (LRD) * Plan of Care - Maya Leon RN - 10/30/2017 5:59 PM EST Problem: Patient Care Overview Goal: Plan of Care Review Outcome: Ongoing (Interventions Implemented as Appropriate) 10/30/17 1753 Coping/Psychosocial Plan Of Care Reviewed With patient Plan of Care Review Progress progress toward functional goals as expected OUTCOME EVALUATION NOTE: OUTCOME SUMMARY: Pt denies chest pain, SOB, or nausea this shift. Pt complains of intermittent pain in lower abdomen, using PCEA adequately and PRN pain meds - see JAN. Pt got up to recliner today with stand-by assist, tolerated well. VSS. Will continue to monitor. PLAN MOVING FORWARD: Pain management, advance activity, d/c planning INDIVIDUALIZED FALL PREVENTION INTERVENTIONS: Patient-specific fall risk factors per assessment: [current deficits]: Hospital environment, narcotics, IV Assistance [level of assistance required for transfers and ambulation]: Stand-by 1 assist Supervision [direct monitoring required during toileting and ADLs]: Stand-by 1 assist Surveillance [continuous indirect monitoring]: Masimo, hourly rounding Patient-specific fall prevention interventions for sensory deficits provided, if applicable: [X] No * Plan of Care - Vivian Quinones OT - 10/30/2017 2:44 PM EST Problem: Patient Care Overview Goal: Plan of Care Review Outcome: Ongoing (Interventions Implemented as Appropriate) 10/30/17 1443 Coping/Psychosocial Plan Of Care Reviewed With patient Occupational Therapy Evaluation Pertinent History of Current Problem: Pt is a 62 yo M with a history of DM, HTN, APR in 04/2013 forypT3 N0 adenocarcinoma of the rectum, with parastomal hernia and incisional hernia who presents with malaise, nausea and vomiting for past week who underwent the following procedures on 10/29/17: 1) Ventral hernia repair with mesh 2) Parastomal hernia repair with mesh3) Lysis of adhesions for 3 hours 4) Appendectomy 5) Umbilicoplasty. Active Non-Hospital Problems Diagnosis ??? Ostomy nurse consultation ??? Partial small bowel obstruction ??? Neurogenic bladder ??? Colostomy in place ??? Hypertension ??? Snoring ??? Diabetes mellitus ??? Obesity (BMI 35.0-39.9 without comorbidity) ??? Rectal cancer Precautions/Restrictions: fall, oxygen therapy device and L/min (4 liters O2) 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, DIRECTOR [employer]STRUMENT[employer], 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, ostomy, uriarte, 2 MARIEL drains, NPO Living Environment Comment: Pt lives with his girlfriend and has several adult children living nearby. He has 2 TYRELL and can use door frame for support. Patient has a tub shower. Patient has AE from his father including a walker, cane and shower chair. 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 Assessment: Pt has been seen by OT for evaluation, please refer to associated flowsheet data for details. Adrien Cheung presents with activity limitations and/or participation restrictions due to performance deficits in ability to reach LE for dressing and activity tolerance. These impairments have a significant impact on the patient's performance in the following areas of occupation: BADLs, IADLs, rest/sleep, education, work, leisure, driving, and social participation. Pt would benefit from ongoing OT interventions to increase independence with self care and progress functional mobility while hospitalized. Therapy Frequency: 1-3 more visits Anticipated Equipment Needs at Discharge: (Pt has AE for home) Anticipated Discharge Disposition: home with assist, home with home health Pager: [phone] VIVIAN QUINONES OT 10/30/2017 Occupational Therapy Rehabilitation Department 2017 OT Evaluation Code Rationale: ?? Diagnosis & Pertinent Co-Morbidities affecting Plan of Care: see PMHx above ?? Occupational Profile & Client History: Brief Expanded Extensive x ?? Assessment of Occupational Performance: 1-3 performance deficits 3-5 performance deficits x 5 + performance deficits ?? Clinical Decision Making: Low Moderate High x Clinical decision making of moderate complexity using standardized patient assessment instrument and measurable assessment of functional outcome. Problem: Acute Rehab Services Goal & Intervention Plan Goal: Home Management Goal Stand Alone Therapy Goal Outcome: Ongoing (Interventions Implemented as Appropriate) 10/30/17 1443 Home Management Goal Home Mgmt Goal, Date Established 10/30/17 Home Mgmt Goal, Time To Achieve by discharge Home Mgmt Goal, Activity Type Pt will mobilize house hold distances for home management modified independent. Goal: LB Dressing Goal Stand Alone Therapy Goal Outcome: Ongoing (Interventions Implemented as Appropriate) 10/30/17 1443 LB Dressing Goal LB Dressing Goal, Date Established 10/30/17 LB Dressing Goal, Time to Achieve by discharge LB Dressing Goal, Activity Type Pt will dress LB with adaptive equipment, as needed, independently. * Plan of Care - Key Bell, PT - 10/30/2017 2:05 PM EST Problem: Patient Care Overview Goal: Plan of Care Review Outcome: Ongoing (Interventions Implemented as Appropriate) 10/30/17 1400 Coping/Psychosocial Plan Of Care Reviewed With patient Physical Therapy Note Evaluation Pertinent History of Current Problem: Pt is a 62 yo M with a history of DM, HTN, APR in 04/2013 forypT3 N0 adenocarcinoma of the rectum, with parastomal hernia and incisional hernia who presents with malaise, nausea and vomiting for past week who underwent the following procedures on 10/29/17: 1) Ventral hernia repair with mesh 2) Parastomal hernia repair with mesh3) Lysis of adhesions for 3 hours 4) Appendectomy 5) Umbilicoplasty. Past Medical History: Active Non-Hospital Problems Diagnosis ??? Ostomy nurse consultation ??? Partial small bowel obstruction ??? Neurogenic bladder ??? Colostomy in place ??? Hypertension ??? Snoring ??? Diabetes mellitus ??? Obesity (BMI 35.0-39.9 without comorbidity) ??? Rectal cancer Precautions/Restrictions: fall, oxygen therapy device and L/min 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, [employer], 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, ostomy, uriarte, 2 MARIEL drains Living Environment Comment: Pt lives with his girlfriend and has several adult children living nearby. He has 2 TYRELL and can use doorframe for support. Prior Functional Level Comment: Pt is independent without an AD. Assessment: Pt seen for PT evaluation. Pt presents to PT with pain, decreased strength and decreased endurance which limits his functional mobility and activity tolerance. Pt tolerated transfer OOB to chair well with supervision assistance and FWW for pain relief. Assistance to manage equipment/tubing. Anticipate he will be able to discharge to home safely with family support once medically ready. He will benefit from skilled PT to address above impairments while he remains in the hospital. Please see the Rehab Evaluation Summaries section for detailed objective data and specifics of today's session. Mobility Recommendations: Supervision assist and FWW. Progressive walks into hallway over weekend. Anticipated Physical Therapy Frequency: 1-3 more visits Anticipated Equipment Needs at Discharge: (TBD closer to d/c) Anticipated Discharge Disposition: home with assist Pager: [phone] KEY BELL, PT 10/30/2017 Physical Therapy Rehabilitation Department 2017 PT Evaluation Code Rationale: ?? Diagnosis & Pertinent Co-Morbidities affecting Plan of Care: See PMHx above ?? Clinical presentation: Stable Evolving Unstable x ?? Examination of Body Systems: Addressing 1-2 elements Addressing 3 + elements x Addressing 4 + elements Clinical decision making of moderate complexity using standardized patient assessment instrument and measurable assessment of functional outcome. Problem: Acute Rehab Services Goal & Intervention Plan Goal: Bed Mobility Goal Stand Alone Therapy Goal Outcome: Ongoing (Interventions Implemented as Appropriate) 10/30/17 1400 Bed Mobility Goal Bed Mobility Goal, Date Established 10/30/17 Bed Mobility Goal, Time to Achieve 2 wks Bed Mobility Goal, Activity Type all bed mobility activities Bed Mobility Goal, [place] Level independent Bed Mobility Goal, Assistive Device (Log roll technique) Goal: Gait Training Goal Stand Alone Therapy Goal Outcome: Ongoing (Interventions Implemented as Appropriate) 10/30/17 1400 Gait Training Goal Gait Training Goal, Date Established 10/30/17 Gait Training Goal, Time to Achieve 2 wks Gait Training Goal, [place] Level supervision required Gait Training Goal, Assist Device (LRD) Gait Training Goal, Distance to Achieve >150ft Gait Training Goal, Additional Goal Pt able to negotiate 2 steps with rail or cane and supervision Goal: Goal Transfer Training Stand Alone Therapy Goal Outcome: Ongoing (Interventions Implemented as Appropriate) 10/30/17 1400 Goal Transfer Training Transfer Training Goal, Date Established 10/30/17 Transfer Training Goal, Time to Achieve 2 wks Transfer Training Goal, Activity Type rnd-vt-fmbsq/pxuvs-hp-yhd;etq-dh-vhddj/umszv-ve-cpv Transfer Train Goal, [place] Level supervision required Transfer Training Goal, Assist Device (LRD) * Med Student Progress Note - Mali Bentley - 10/30/2017 1:53 PM EST General Surgery Resident Inpatient Progress Note ID: Adrien Cheung is a 62 y.o. male with history of DM, HTN, APR in 2012 for ypT3NO rectal adenocarcinoma with radiation therapy who has a parastomal and incisional hernia who is 1 day s/p parastomal and incisional hernia repair, ex- lap and appendectomy to relieve partial small bowel obstruction. 24hr events: ?? Pt tolerated procedure well ?? SubQ heparin resumed post-op ?? Pt required 4-6 L NC to maintain O2 sat >92% overnight ?? Ostomy with no gas or stool output ?? Pt remains on TPN and NPO Subjective: -Pt had episode of itching overnight, received Nubain -Pt states pain is well-controlled with fentanyl PCEA and IV dilaudid PRN -Pt denies, fever, chills, night sweats, N/V, chest pain, SOB, dizziness O: Last value Range last 24hrs Temperature Temp: 36.4 ??C (97.5 ??F) Temp: [35.6 ??C (96.1 ??F)-37.5 ??C (99.5 ??F)] Heart Rate Heart Rate: 94 Heart Rate: [94-123] Blood Pressure BP: 123/77 BP: (90-137)/(53-77) Respiratory Rate Resp: 16 Resp: [11-18] SpO2 SpO2: 94 % SpO2: [92 %-98 %] 10/29 0701 - 10/30 0700 In: 5244.9 [P.O.:120; I.V.:3627] Out: 2905 [Urine:2515] -NGT 150 cc bilious Physical Exam: General: Pleasant and conversant, in NAD Abd: soft, non-distended, mild tenderness to palpation, binder in place, midline incision covered with dressing that is clean, dry, intact : Uriarte in place draining light yellow urine Skin: warm, dry, no evidence of cyanosis Neuro: CN 2-12 grossly intact, moving all four extremities spontaneously 2 MARIEL drains -- minimal (few cc's) of serosanguinous output Recent Labs 10/30/17 0500 10/29/17 0240 10/28/17 0155 WBC 8.4 7.2 7.4 HGB 11.2* 10.6* 11.3* HCT 33.8* 31.2* 32.8* PLATELET 134* 160 178 Recent Labs 10/30/17 0500 10/29/17 0240 10/28/17 0155 10/27/17 1639 NA 145 139 137 130* K 4.7 3.8 3.6 4.3 CL 107 99 97* 88* CO2 29 25 23 23 BUN 24* 26* 57* 89* CREATININE 0.62* 0.58* 0.96 1.96* GLUCOSE 216* 213* 82 96 CALCIUM 7.7* 7.8* 7.5* 7.5* MAGNESIUM 0.79 0.70 0.62* 0.56* PHOS 2.9 2.1* 2.4* 3.6 B/30 at 1800 -- 281 (got 4 units lispro) 10/29 at 2000 -- 243 (got 4 units lispro) 10/30 at 0100 -- 236 (got 3 units lispro) 10/30 at 0400 -- 198 (got 2 units lispro) NEW IMAGING: None ASSESSMENT: Adrien Cheung is a 62 y.o. male with a history of APR in 2012 for rectal adenocarcinoma who is POD 1 for parastomal and incisional hernia repair, ex-lap and appendectomy to relieve partial small bowel obstruction. He is doing very well this AM -- pain controlled, maintaining appropriate urine output, vitals and labs stable. Continue to hold post-op course until return to bowel function. Encourage ambulation and use of incentive spirometer. PLAN: DIET: TPN at 100 mL/hr NEURO: Fentanyl PCEA, IV Dilauded PRN, IV acetaminophen Q8H CV: vitals stable, holding home lisinopril and lipitor PULM: aggressive incentive spirometry, PEP, O2 nasal cannula PRN for O2 sats >92% GI: keep NPO and keep NGT until bowel function returns, IV pantoprazole for GI ppx, Zofran PRN, : keep Uriarte in place until pt ambulating safely FEK: appropriate fluid and electrolyte balance ID: none HEME: subQ heparin 2x/day for DVT ppx ENDO: increase lispro sliding scale coverage to maintain BGs <180 OTHER: Encourage ambulation as tolerated and consult PT/OT DISPO: pt likely discharged to home in 3-5 days pending return to bowel function and post-op course Mali Bentley, MS3 [facility] Resident: Rene Gonsales DO Attending: Edin Obrien MD * Consult Note - Esha Clark RN - 10/30/2017 11:42 AM EST Ostomy nurse note - he is currently wearing a Inlet 2 3/4 ostomy appliance which is intact, nogas or effluent in pouch and he is wearing large abdominal binder. I showed him and his girlfriend Charlette how to attach pouch to wafer and how to use velcro tail closure. He is used to wearing a [employer] wafer # [id number] which is a moldable convex wafer. I gave him a bag with some Lexx 2 1/4 wafers and pouches and discussed use of a floating flange vs. A stationary flange. He would like to try the Lexx wafers and pouches and I will order him a starter kit with wafer # [id number] (pre-cut 1 3/8 hole flat). I told him that he can call [employer] and ask them to send him samples of a pre-cut 1 1/4 wafer with an accordion flange and then he could continue using the [employer] product. Told him that he will be having a post-op visit with ostomy nurse and then he can let us know what he wouldprefer and then can get him ordering information for a Lexx floating flange wafer with a pre-cut hole 1 1/4 and hopefully he will call [facility] and ask for their accordion style flange. I reviewed his discharge ostomy paperwork and showed him the ordering information for supplies he has in discharge bag. His stoma is red, moist and almost flush. * Plan of Care - Carlos Montes RN - 10/30/2017 5:52 AM EST Problem: Patient Care Overview Goal: Plan of Care Review Outcome: Ongoing (Interventions Implemented as Appropriate) 10/28/17 1827 10/30/17 0100 Coping/Psychosocial Plan Of Care Reviewed With -- patient Plan of Care Review Progress progress toward functional goals as expected -- OUTCOME EVALUATION NOTE: OUTCOME SUMMARY: This patients skin remains intact at this time with no reddened areas. Pt currently repositioning self in bed every 2 hrs. Pt verbalizes understanding to reposition self every 2 hrs to prevent skin breakdown and alert nurse when help is needed to do so. Will continue to monitor. This patient reports that his pain is adequately managed with the ordered medication regiment. This patient denies chest pain, shortness of breath, and nausea. The patients dressing to the midline abdomen remains clean,dry, and intact. Bilat JPs remain with scant serosang. drainage, epidural remains with good effect,NGT remains to LCWS. Pt given Nubain for itchiness. Colostomy with no output as of yet. Last recorded vital signs: Last value Temperature Temp: 36.5 ??C (97.7 ??F) Heart Rate Heart Rate: 94 Blood Pressure BP: 114/62 Respiratory Rate Resp: 17 SpO2 SpO2: 97 % Recorded I/O: I/O this shift: In: 259.9 [P.O.:120; Other:139.9] Out: 895 [Urine:840; Other:55] PLAN MOVING FORWARD: The plan moving forward with this patient is to work with PT/OT to increase this patients independence with ADLs. INDIVIDUALIZED FALL PREVENTION INTERVENTIONS: Patient-specific fall risk factors per assessment: [current deficits]: This patient has decreased general mobility and sensory impairment in relation to receiving the medication via epidural as well as dilaudid. Assistance [level of assistance required for transfers and ambulation]: This patient requires activity orders to ambulate. Supervision [direct monitoring required during toileting and ADLs]: This patient requires 2 assist with ADLs. Surveillance [continuous indirect monitoring]: Keo, nursing knowledge exchange, purposeful rounding. Patient has history of: Past Medical History: Diagnosis Date ??? DM (diabetes mellitus) type 2 ??? ED (erectile dysfunction) ??? Gout ??? HTN (hypertension) ??? Hypercoagulable state Protein S deficiency ??? Hyperlipemia ??? Obesity ??? 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 Rectal cancer Past Surgical History: Procedure Laterality Date ??? COLONOSCOPY 12/17/2012 discovered rectal invasive adenocarcinoma ??? NASAL POLYP SURGERY ??? PILONIDAL CYST EXCISION ??? PRO ADJ TISS XFER SCALP, EXTREM 10.1-30 05/11/2013 ADJ.TISSUE TRANSFER, REARRANGEMENT, 10.1 TO 30 SQ.CM, LEGS performed by Oscar Soto MD at [facility] OR ??? PRO COLONOSCOPY, DIAGNOSTIC N/A 03/23/2015 COLONOSCOPY, DIAGNOSTIC performed by Bobby Hills MD at [facility] ENDOSCOPY ??? PRO CYSTOSCOPY, INSERT URETERAL STENT 05/11/2013 CYSTO, STENT PLACEMENT INTRAOP, TEMPORARY performed by Mark Khan MD at [facility] OR ??? PRO EXCLUSION, SMALL BOWEL FROM PELVIS 05/11/2013 @EXCLUSION OF SMALL INTESTINE FROM PELVIS performed by Bobby Hills MD at [facility] OR ??? PRO LAP, SURG PROCTECTOMY W COLOSTOMY 05/11/2013 @LAPAROSCOPIC PROCTECTOMY, COMPLETE, APR W COLOSTOMY performed by Bobby Hills MD at [facility] OR ??? PRO MUSCLE-SKIN FLAP, LEG 05/11/2013 FLAP, MYOCUTANEOUS OR FASCIOCUTANEOUS, LOWER EXTREMITY performed by Oscar Soto MD at [facility] OR ??? PRO OMENTAL FLAP, INTRA-ABDOMINAL 05/11/2013 @OMENTAL FLAP, INTRA-ABDOMINAL performed by Mark Khan MD at [facility] OR ??? PRO REMOVE ABD LYMPH NODES RAD REGNL 05/11/2013 @LYMPHADENECTOMY,ABDOMINAL,REGIONAL,MULTIPLE NODES performed by Bobby Hills MD at [facility] OR ??? TONSILLECTOMY AND ADENOIDECTOMY ??? VASECTOMY Patient has following SCHEDULED medications: ??? insulin lispro 1-4 Units Subcutaneous Q4H ??? Neuraxial/Epidural shift total and Settings verification Epidural 2 Times Daily- Neuraxial Shift Total ??? sodium chloride 0.9 % 5 mL Intravenous BID ??? heparin (Porcine) 5,000 Units Subcutaneous BID ??? pantoprazole 40 mg Intravenous Daily Patient has following PRN medications: naloxone, nalbuphine, dextrose 50% OR glucagon (human recombinant), sodium chloride 0.9 %, lidocaine, HYDROmorphone, ondansetron, flu vacc (6 mos-64 yrs)(PF) CPG GOAL OUTCOME EVALUATION: Goal: Individualization & Mutuality Outcome: Ongoing (Interventions Implemented as Appropriate) 10/27/17 1608 Mutuality/Individual Preferences What Anxieties, Fears or Concerns Do You Have About Your Health or Care? none What Questions Do You Have About Your Health or Care? none What Information Would Help Us Give You More Personalized Care? none Goal: Fall Prevention-Safe Patient Handling Outcome: Ongoing (Interventions Implemented as Appropriate) 10/29/17211110/30/17 0100 [place] Fall Risk History of Falling -- 0 Secondary Diagnosis -- 15 Ambulatory Aids -- 0 Intravenous Therapy/Heparin/Saline Lock -- 20 Gait/Transferring -- 0 Mental Status -- 0 Score -- 35 OTHER [place] Fall Risk -- Med Restraint Interventions Safety Promotion/Fall Prevention -- activity supervised;fall prevention program maintained;nonskid shoes/slippers when out of bed;safety round/check completed Positioning Body Position supine -- Goal: Infection Control Outcome: Ongoing (Interventions Implemented as Appropriate) 10/30/17 0100 Safety Interventions Isolation Precautions standard precautions maintained Infection Prevention rest/sleep promoted;single patient room provided Coping Strategies Supportive Measures active listening utilized;decision-making supported;goal setting facilitated;problem solving facilitated;self-care encouraged;relaxation techniques promoted;verbalization of feelings encouraged Goal: Discharge Needs Assessment Outcome: Ongoing (Interventions Implemented as Appropriate) 10/27/17 1727 Discharge Needs Assessment Concerns To Be Addressed no discharge needs identified Equipment Needed After Discharge colostomy/ostomy supplies;glucometer Discharge Disposition still a patient Current Health Anticipated Changes Related to Illness none Activity/Self Care Review of Systems Equipment Currently Used at Home colostomy/ostomy supplies;glucometer Living Environment Transportation Available car Goal: Interdisciplinary Rounds/Family Conf Outcome: Ongoing (Interventions Implemented as Appropriate) 10/28/17 0220 Interdisciplinary Rounds/Family Conf Participants patient;physician;nursing Problem: Pain, Acute (Adult) Goal: Acceptable Pain Control/Comfort Level Patient will demonstrate the desired outcomes by discharge/transition of care. Outcome: Ongoing (Interventions Implemented as Appropriate) 10/28/17 1826 Pain, Acute (Adult) Acceptable Pain Control/Comfort Level making progress toward outcome (currently pain free but is planned for OR tomorrow) Problem: Health Knowledge, Opportunity to Enhance (Adult,NICU,[place],Obstetrics,Pediatric) Goal: Knowledgeable about Health Subject/Topic Patient will demonstrate the desired outcomes by discharge/transition of care. Outcome: Ongoing (Interventions Implemented as Appropriate) 10/30/17 0546 Health Knowledge, Opportunity to Enhance (Adult,NICU,[place],Obstetrics,Pediatric) Knowledgeable about Health Subject/Topic making progress toward outcome * Med Student Progress Note - Mali Bentley - 10/29/2017 5:08 PM EST General Surgery Resident Inpatient Progress Note ID: Adrien Cheung is a 62 y.o. male with history of DM, HTN, APR in 2012 for ypT3NO rectal adenocarcinoma with radiation therapy who has a parastomal and incisional hernia who is on hospital day 2 for a partial small bowel obstruction. 24hr events: ?? Pt elected for hernia repair -- on OR schedule for today ?? PICC access obtained and TPN started yesterday at 100 mL/hr ?? Pt required 2 L NC to maintain O2 sat >92% overnight ?? SBP has remained >90 ?? Ostomy with gas and very minimal stool Subjective: -Pt has no complaints today -- states he feels better -Pt denies pain, fever, chills, night sweats, N/V, chest pain, SOB O: Last value Range last 24hrs Temperature Temp: 37.3 ??C (99.1 ??F) Temp: [36.2 ??C (97.2 ??F)-37.3 ??C (99.1 ??F)] Heart Rate Heart Rate: 103 Heart Rate: [67-123] Blood Pressure BP: 111/66 BP: (90-132)/(49-69) Respiratory Rate Resp: 17 Resp: [13-18] SpO2 SpO2: 92 % SpO2: [90 %-98 %] 10/28 0701 - 10/29 0700 In: 3984 [P.O.:1350; I.V.:1628] Out: 3390 [Urine:2615] Physical Exam: General: Sleepy but arousable and conversant, in NAD Abd: soft, nontender, slightly distended, ostomy in LLQ with no surrounding erythema or tenderness to palpation : Uriarte in place Skin: warm, dry, no evidence of cyanosis Neuro: CN 2-12 grossly intact, moving all four extremities spontaneously Recent Labs 10/29/17 0240 10/28/17 0155 10/27/17 0720 WBC 7.2 7.4 16.0* HGB 10.6* 11.3* 13.6* HCT 31.2* 32.8* 39.2* PLATELET 160 178 248 Recent Labs 10/29/17 0240 10/28/17 0155 10/27/17 1639 10/27/17 0720 NA 139 137 130* 125* K 3.8 3.6 4.3 4.9 CL 99 97* 88* 80* CO2 25 23 23 25 BUN 26* 57* 89* 109* CREATININE 0.58* 0.96 1.96* 3.33* GLUCOSE 213* 82 96 212* CALCIUM 7.8* 7.5* 7.5* 7.9* MAGNESIUM 0.70 0.62* 0.56* -- PHOS 2.1* 2.4* 3.6 -- Albumin -- 2.7 NEW IMAGING: ?? KUB 10/28 -- contrast in a non-distended colon from the cecum to the mid- descending colon that has cleared the partial small bowel obstruction, dilated loops of small bowel ASSESSMENT: Adrien Cheung is a 62 y.o. male with a history of APR in 2012 for rectal adenocarcinoma on hospital day 2 for partial small bowel obstruction secondary to a midline and parastomal hernia. He has elected to undergo hernia repair given his current presentation and recent hospitalization 2 months prior for another partial small bowel obstruction. PLAN: -Hold subQ heparin prior to epidural -Pt NPO, on TPN -Lytes stable, no need to replete -IV Dilauded PRN for pain -Zofran PRN for nausea -IVF 100 mL/hr LRs with D5W and 20 mEq K DISPO: to OR today, post-op to floor pending operative course, discharge to home by next week pending post-op course Mali Bentley, MS3 [facility] Resident: Rene Gonsales DO Attending: Edin Obrien MD * Consult Note - Esha Clark RN - 10/29/2017 4:46 PM EST Ileostomy/Colostomy Pouching: Inlet 2-piece pouch Name: Adrien Cheung Type of Ostomy: colostomy Use this procedure as a guide when changing your appliance. Read all instructions, assemble all equipment, and empty contents from pouch before beginning actual change. If you have questions, do not hesitate to call the Ostomy Nurses at [phone]. Equipment: Company/Order Numbers Wet and dry soft cloth (paper towels) Plastic bag Pen, Scissors, stoma pattern Pouch, transparent, Lock 'n roll Lexx 2 12/03 #72696 Wafer, [employer] Inlet 2 12/03 #77066 Adapt Powder Lexx #7906 Adapt Paste Lexx #96127 Nosting Skin Barrier Wipe [employer] #[id number] Barrier rings Lexx # 8871 Non-allergic tape (4 strips) [employer] paper tape if necessary Liquid Deodorant Lexx M9 #5865 Other Supplies (if any) Procedure: 1. Using pattern, trace stoma size on back of wafer and cut out tracing. 2. Place wafer in a warm place to make it more pliable. 3. Remove old pouch and wafer from skin and discard in plastic bag. 4. Wash skin and stoma with warm water and pat skin dry. 5. Examine skin and stoma for any irritation. If skin irritation present, apply a dusting of Adapt protective powder. [place] off excess powder, or wafer will not adhere. Seal the powder in by applyinga Nosting Skin Barrier Wipe. 6. Remove paper backing from wafer. If needed apply small bead of adapt paste Around wafer hole. If using barrier ring apply ring around wafer hole and press In place. 7. Apply wafer to skin being sure to center over stoma. Press down firmly, first in center closest to stoma and then outer edges. Once you have the center well sealed you may remove paper backing from adhesive on the outer edges. 8. To attach pouch to wafer flange: ??? angle bottom of pouch as desired. ??? position the top of the pouch flange onto wafer flange. ??? starting at the bottom, apply gentle pressure around the curcumference of the pouch flange until it feels secure to the flange on the wafer. You should feel or hear the pouch click into a secure position and a gentle tug all the way around will convirm that the pouch is firmly attached. 9. Close the Lock 'n roll closure. 10. Picture frame (apply 1-piece of tape to each side of the wafer) with waterproof tape when showering, bathing or swimming (optional). 11. To remove old pouch from wafer, pull away from the wafer using the tab at the top of the flangeon the pouch, maintain gentle pressure on the wafer as the pouch is pulled away. Changing Schedule: twice a week Please call [employer] (if needed) to request a list of preferred vendors for ordering ostomy supplies and call us if need to request prescription to be sent to vendor. Always bring supplies needed for a pouch change when you come in for your clinic visits, or into the hospital. Pharmacy or Medical Supply: How to obtain Ostomy Supplies: New Ostomy patients will be discharged home with 4 pouch changes. Medicare patients who are to be discharged home with Visiting Nurses(VNA) will have their Ostomy supplies ordered by VNA until they discontinue care. Once you are discharged from VNA/Homecare Nursingproceed with calling Insurance What's in My Handbag to get preferred vendor (below) Non Medicare patients please call your Insurance company and request a list of Preferred Ostomy Vendors/Suppliers that they allow. You may then call one of those vendors (several listed below) and proceed to set up an account with them.* When calling the vendor be prepared to answer the followingquestions: -Insurance name and Account # -Date of Surgery -Type of Ostomy (Colostomy, Ileostomy or Urostomy) -order #'s for ALL supplies you are using -Name of Surgeon and telephone number [employer] [facility] ([email or web address]) Quality Assurance Specialist: Hemalatha Bradley [phone] [employer] (www.[email or web address]) [employer] ([email or web address]) [employer] ([employer]) *If you wear [employer] products and are having a difficult time finding a vendor that will accept your Insurance you may call [employer] at . They have a team of 30 Insurance experts whowill help you find a vendor that can bill your Insurance Company. Remember, if they need to return your call expect a call from [place], in case you are screening your calls. Insurance companies require that the prescription or order for ostomy supplies be renewed annually. You need to get this prescription renewed by your Primary Care Provider. You will need to give your PCP the name and order #'s of all supplies you use. Some vendors will fax the order to your PCP. * Op Note - Vivian Washington MD - 10/29/2017 4:08 PM EST [facility] Operative Note Patient Name: Adrien Cheung : [id number] MR#: [id number] Case Date: 10/29/2017 Surgeon: Surgeon(s) and Role: * Vivian Washington MD - Primary * Gonsales, Franklin Everett, * BERNARDA Rachel MD Preoperative diagnosis: Small Bowel Obstruction Postoperative diagnosis: Small Bowel Obstruction, Incarcerated Parastomal Hernia, Incarcerated Ventral Hernia 1) Ventral hernia repair with mesh 2) Parastomal hernia repair with mesh 3) Lysis of adhesions for 3 hours 4) Appendectomy 5) Umbilicoplasty Findings: 1. 17 x 14 cm incisional [...] left in subq tissue 7. Appendectomy preformed Anesthesia: General Estimated Blood Loss: 150 mL Specimens removed during surgery: Order Name Source Comment Collection Info Order Time SPECIMEN TO PATHOLOGY (SURGICAL OR DERM) Small Bowel Obstruction Appendix No Excision 1 10/29/2017 1:11 PM Time removed from patient: 1:10 PM Biospecimen to store? No SPECIMEN TO PATHOLOGY (SURGICAL OR DERM) Small Bowel Obstruction Hernia Sac No Excision 1 10/29/2017 1:46 PM Time removed from patient: 1:45 PM Biospecimen to store? No Drains: 2 15 F MARIEL drains in subq tissue Surgical Closure: Primary Closure - closure of ALL tissue levels during the original surgery regardless of wires, wickes, drains, or other devices extruding through the incision Disposition: awakened from anesthesia, extubated and taken to the recovery room in a stable condition, having suffered no apparent untoward event. Condition: doing well without problems (Please see the Surgical Encounter Summary for any Implant and Specimen details pertinent to this patient.) HPI/Surgical Indications: 62yo M s/p APR in 04/2013 for a stage IIa (T3N0) rectal adenoca. He has a known parastomal and ventral hernia. He was most recently admitted in July of this year with a partial SBO that was treated conservatively. He presents today with 2 weeks of poor PO intake, abdominal discomfort and fatigue. Given the frequency of his admissions for bowel obstructions, surgery was discussed to repair is incisional and parastomal hernias. The risks of bleeding, infection, damage to surrounding structures, NV, DVT or PE, and likely future hernia recurrence were discussed. Adrienelected to proceed with surgery. An epidural was placed preoperatively. Our enterostomal nurses also visited and marked him should his stoma need to be revised. Procedure Description: Adrien was evaluated preoperatively by our acute pain service team and consented to an epidural catheter for postop pain control. Our enterostomal nurses had also met with him and marked him for possible ostomy revision. He was brought into the operating room and placed in the table in a supine position. SCDs were placed and functioning. His heparin had been held given his epidural, but was given during the procedure 1 hour after epidural placement. He was given clindamycin within 1 hour of incision. General endotracheal anesthesia was induced. His abdomen was clipped of hair, his stoma appliance was removed, and his stoma was sewn shut with a silk suture. The stoma was then prepped with Betadine and sterile dressing was placed to cover the stoma. The abdomen was then reprepped with chlorhexidine and sterilely draped. Adrien had a Uriarte in previously from the floor. A timeout was performed confirming the correct patient procedure and surgical site. We began by making a periumbilical midline incision through his existing scar. We quickly encountered his existing hernia sac through the incisional hernia. This was bluntly bluntly dissected from subcutaneous tissue. We were able to identify his fascial edges circumferentially. There were fairly dense adhesions at the level of the fascia between his ostomy and the midline incision. This point we elected to open the hernia sac to enter the abdomen and attempt to reduce the parastomal hernia. We proceeded to lyse adhesions for over 2 1/2 hours. Adhesions were lysed bluntly, sharply, and with electrocautery. There were adhesions between the small bowel and hernia sac, and small bowel and abdominal wall. There were also a fair amountof thin interloop adhesions between small bowel and the abdominal cavity. His incisional hernia wasfairly complex with multiple hernia sacs within and off of the primary hernia sac. During mobilization, and unavoidable enterotomy was created. This was immediately recognized. We did spell a very small amount of succus into the abdominal cavity. He was given flagyl IV at this point. The defect created was approximately 2 x 2 mm. Was oversewn using interrupted silk suture. We were eventually ableto dissect out towards the stoma. We could visualize a distended loop of small bowel entering the stoma site and a decompressed loop of small bowel exiting the parastomal hernia. We proceeded to freethis loop of bowel from the parastomal hernia sac. This was quite tedious as there were dense adhesions between small bowel and the parastomal hernia sac. The small bowel was incarcerated in this hernia sac. We reduced the small bowel from this hernia from the abdominal cavity side and from the abdominal wall side. Once we reduced this we proceeded to run the bowel. We did not note any enterotomies. The bowel was quite distended and thickened suggesting this had been a chronic process for Adrien.We were not able to run the entire small bowel some of the small bowel went into the pelvis, which had been irradiated field and we did not want to enter this region. We were able to run from the terminal ileum proximally. Interestingly, the terminal ileum and cecum were in the upper abdomen. The the visualized his appendix coming off of the cecum. It appeared quite long, but was otherwise normalin appearance. We discussed performing an appendectomy given his difficult abdomen and the likely difficulties and morbidity that would come if he developed appendicitis. We decided to perform an appendectomy. We created a small window at the base of his appendix divided with a blue load of the stapler. We took his mesoappendix using clamps and ties. This was sent as specimen. We then began our hernia repair. We did primarily closed a portion of the parastomal hernia using 0 PDS. We selected a biologic mesh given our previous contamination. We proceeded to irrigate the abdomen with normal saline and noted it to be hemostatic. The hernia defect measured 17 cm in width and 14 cm in length. Weselected a 20 x 20 cm Stratus mesh. We proceeded to place 0 PDS sutures through the fascia then themesh and back to the fascia and a U stitch fashion. At the stoma, a notch was cut in the mesh to facilitate the repair. We placed suture circumferentially and tied them down at the end. We did not note any defects were bowel could herniate in between the mesh and the abdominal wall. The mesh laid fairly flat. We were able to close the fascia over this mesh. We did so using a 0 PDS in a running fashion. We proceeded to place 2 15 Serbian drains in the subcutaneous tissues. The umbilicus was reattached to the abdominal wall using a 3-0 Vicryl stitch. Adrien tolerated the procedure well without anyimmediate complications. All counts were correct at the end of our procedure. He was extubated in the OR and taken to the recovery area in stable condition. Infection Bundle used? No Attestation: Case Date: 10/29/2017 I was present and I participated during the entire procedure (does not need to include opening and closing). Vivian Washington MD 10/30/2017 * Brief Op Note - Vivian Washington MD - 10/29/2017 3:48 PM EST Brief Operative Note Patient Name: Adrien Cheung : [id number] MR#: [id number] Case Date: 10/29/2017 Surgeon: Surgeon(s) and Role: * Vivian Washington MD - Primary * Gonsales, Franklin Everett, DO * BERNARDA Rachel MD Preoperative diagnosis: small bowel obstruction Postoperative diagnosis: Small Bowel Obstruction, Incarcerated Parastomal Hernia, Incarcerated Ventral Hernia 1) Ventral hernia repair with mesh 2) Parastomal hernia repair with mesh 3) Lysis of adhesions for 3 hours 4) Appendectomy 5) Umbilicoplasty Anesthesia: General Findings: 1. 17 x 14 cm incisional and parastomal hernia 2. 3mm enterotomy, repaired with interrupted silk suture 3. Incarcerated small bowel in parastomal hernia, reduced using blunt and sharp dissection 4. Lysis of adhesions for > 150 minutes 5. Parastomal hernia closed primarily, then biologic/Strattice mesh used to cover defect and incisional hernia. Fascia closed primarily over mesh 6. 2 drains left in subq tissue 7. Appendectomy performed Complications: No immediate complications Estimated Blood Loss: 150 mL Specimens removed during surgery: Order Name Source Comment Collection Info Order Time SPECIMEN TO PATHOLOGY (SURGICAL OR DERM) Small Bowel Obstruction Appendix No Excision 1 10/29/2017 1:11 PM Time removed from patient: 1:10 PM Biospecimen to store? No SPECIMEN TO PATHOLOGY (SURGICAL OR DERM) Small Bowel Obstruction Hernia Sac No Excision 1 10/29/2017 1:46 PM Time removed from patient: 1:45 PM Biospecimen to store? No Fluids: Intraprocedure Crystalloid Total None PRBCs: none (See Anesthesia Record/Report for Other Blood Products) Urine Output: 1385 mL Drains: 2 15 F MARIEL drains in subq tissue Disposition: awakened from anesthesia, extubated and taken to the recovery room in a stable condition, having suffered no apparent untoward event. Condition: doing well without problems (Please see the Surgical Encounter Summary for any Implant and Specimen details pertinent to this patient.) Infection Bundle used? No * Plan of Care - Kristie Ruiz RN - 10/29/2017 3:19 AM EST Problem: Patient Care Overview Goal: Plan of Care Review Outcome: Ongoing (Interventions Implemented as Appropriate) 10/28/17 1827 10/28/171999 Coping/Psychosocial Plan Of Care Reviewed With -- patient Plan of Care Review Progress progress toward functional goals as expected -- OUTCOME EVALUATION NOTE: OUTCOME SUMMARY: Pt A&Ox3, able to make needs known. NPO since midnight for mesh hernia repair this AM. VSS. SR per tele w/ occ. PVCs. SBP>90. Pt on 2 L NC overnight to maintain Spo2 >92%. NGT in right nare, to LCWS, putting out moderate amounts of green bile. Osotomy in LLQ putting out small amounts of stool. Pt able to turn self in bed. TPN at 100 mls/hr continued. Urirate draining clear yellow urine. Or karine to hold SQ heparin this AM. Will continue to monitor closely. PLAN MOVING FORWARD: OR today for mesh hernia repair, transfer to floor, monitor NGT output INDIVIDUALIZED FALL PREVENTION INTERVENTIONS: Patient-specific fall risk factors per assessment: [current deficits]: Generalized weakness Assistance [level of assistance required for transfers and ambulation]: SBA Supervision [direct monitoring required during toileting and ADLs]: eyes on Surveillance [continuous indirect monitoring]: Hourly rounding, call mosqueda in reach, room near nurses station Patient-specific fall prevention interventions for sensory deficits provided, if applicable: [X] No CPG GOAL OUTCOME EVALUATION: Goal: Individualization & Mutuality Outcome: Ongoing (Interventions Implemented as Appropriate) 10/27/17 1608 Mutuality/Individual Preferences What Anxieties, Fears or Concerns Do You Have About Your Health or Care? none What Questions Do You Have About Your Health or Care? none What Information Would Help Us Give You More Personalized Care? none Goal: Fall Prevention-Safe Patient Handling Outcome: Ongoing (Interventions Implemented as Appropriate) 10/28/17199910/29/17 0200 Toro Fall Risk History of Falling 0 -- Secondary Diagnosis 15 -- Ambulatory Aids 0 -- Intravenous Therapy/Heparin/Saline Lock 20 -- Gait/Transferring 0 -- Mental Status 0 -- Score 35 -- OTHER Toro Fall Risk Med -- Restraint Interventions Safety Promotion/Fall Prevention -- safety round/check completed;fall prevention program maintained Positioning Body Position -- independent Goal: Infection Control Outcome: Ongoing (Interventions Implemented as Appropriate) 10/28/17199910/29/17 0200 Safety Interventions Isolation Precautions -- standard precautions maintained Infection Prevention -- rest/sleep promoted Coping Strategies Supportive Measures active listening utilized -- Goal: Discharge Needs Assessment 10/27/17 1727 Discharge Needs Assessment Concerns To Be Addressed no discharge needs identified Equipment Needed After Discharge colostomy/ostomy supplies;glucometer Discharge Disposition still a patient Current Health Anticipated Changes Related to Illness none Activity/Self Care Review of Systems Equipment Currently Used at Home colostomy/ostomy supplies;glucometer Living Environment Transportation Available car Goal: Interdisciplinary Rounds/Family Conf Outcome: Ongoing (Interventions Implemented as Appropriate) 10/28/17 0220 Interdisciplinary Rounds/Family Conf Participants patient;physician;nursing Problem: Pain, Acute (Adult) Goal: Acceptable Pain Control/Comfort Level Patient will demonstrate the desired outcomes by discharge/transition of care. Outcome: Ongoing (Interventions Implemented as Appropriate) 10/28/17 1826 Pain, Acute (Adult) Acceptable Pain Control/Comfort Level making progress toward outcome (currently pain free but is planned for OR tomorrow) * Plan of Care - Alfred Bah RN - 10/28/2017 6:26 PM EST Problem: Patient Care Overview Goal: Plan of Care Review Outcome: Ongoing (Interventions Implemented as Appropriate) 10/28/17 1827 Coping/Psychosocial Plan Of Care Reviewed With patient Plan of Care Review Progress progress toward functional goals as expected OUTCOME EVALUATION NOTE: OUTCOME SUMMARY: Patient remains mostly pain free and free of nausea throughout shift. His abdomen is soft and nontender except for baseline stoma and hernia. His blood pressures are stable this shift with SBPs maintaining >100mmhg and MAPs >65 as well as more than adequate urine output. He has a new left upper arm triple lumen PICC with TPN running and is tolerating chips with sips quite well. He is looking forward to having his trip to the OR tomorrow behind him. PLAN MOVING FORWARD: Plan for OR tomorrow. INDIVIDUALIZED FALL PREVENTION INTERVENTIONS: Patient-specific fall risk factors per assessment: [current deficits]: Tethers mainly; patient is alert and a stable stand-by assist on his feet, but also concerning given his admission hypotension. Assistance [level of assistance required for transfers and ambulation]: Standby Supervision [direct monitoring required during toileting and ADLs]: He's directly supervised for all transfers given risk factors. Surveillance [continuous indirect monitoring]: All monitors and alarms are enabled and audible. Patient-specific fall prevention interventions for sensory deficits provided, if applicable: [X] Yes CPG GOAL OUTCOME EVALUATION: * Consult Note - Esha Clark RN - 10/28/2017 4:17 PM EST Images from the original note were not included. Ostomy nurse note - Patient had colostomy performed 05/11/13 / adenocarcinoma of rectum. Plan is forsurgery tomorrow to repair large parastomal hernia. Present stoma is located LUQ and it is flush and slightly recessed at base of stoma where os is located. He cannot see this stoma and his girlfriend does ostomy pouch change while he lies flat in bed. He has been wearing a [employer] 2 piece 2 1/4 appliance and since this flange is rigid and he has large parastomal hernia he has developed an ulcer under flange area and there is also a red area from 2-6:00 under flange from pressure. He gets hissupplies thru [employer]. He said he would like to keep stoma in current position but when I sat him up and told him he can't even see his existing stoma that's when he commented that he doesn't do hisown ostomy care anyway. I did adrien a potential # 1 site LUQ ~ 2.5 above and medial to current stoma. Option # 2 would be RUQ 2 above umbilical line and ~ 2 above line. He would also benefit from afloating flange type of appliance which is what I used today - Lexx 2 1/4 or a one piece more flexible appliance to allow that ulcer to heal. Will follow. Sitting side of bed Stoma with small ulcer that was located under flange standing * Plan of Care - Michael Joyner RN - 10/28/2017 2:49 PM EST Problem: Health Knowledge, Opportunity to Enhance (Adult,NICU,[place],Obstetrics,Pediatric) Goal: Knowledgeable about Health Subject/Topic Patient will demonstrate the desired outcomes by discharge/transition of care. Peripherally Inserted Central Catheter (PICC) Teaching Sheet Peripherally inserted central catheters (oevn-bc-nzht) (PICC) are used when you need IV (intravenous) medicines and fluids. A catheter is a small flexible plastic tube. The catheter is put in througha vein under your skin. A vein is a tube inside your body that carries blood from the body to the heart. The catheter is usually put into a vein on the inside of your upper arm. Then it is threaded up this vein and ends in the blood vessel near your heart. The PICC catheter may be used for taking blood for laboratory tests. You may also get IV fluids andmedicines quickly and easily. Having the catheter may keep your arm from being stuck many times with a needle. The catheter will have 1-3 small tails (tubes) coming from your arm where the catheter was put in. Why do I need a PICC line or midline catheter? PICC lines are used for correction treatments. PICC lines may be used for up to a year. They areoften put in to give you IV medicines at home. You may need a PICC catheter because caregivers cannot use smaller veins in your body. Smaller veins may be damaged, or they may have poor blood flow. ??? Catheters are also used in case of emergency when you would need medicines or fluids very quickly. ??? The following are medicines and treatments you may get when you have a PICC line. ? Antibiotics. These are medicines to prevent infection. ? Frequent blood sample collection. ? IV medicines that would make your smaller veins sore or damaged. ? Receiving IV fluids for a long period of time. ? Pain medicine. ? Total Parenteral Nutrition: This is also called TPN. TPN is a special liquid food that goes directly into your veins. ? Blood ? Chemotherapy (Medicine for cancer) What are the benefits of having a PICC line put in? Having a PICC line may keep your arm from being stuck many times with a needle to draw blood orstart an IV (intravenous catheter) . ??? Through a PICC catheter, you may have blood taken for tests. You may also get IV fluids and medicines quickly and easily. ??? Small veins can be damaged or irritated by certain drugs or nutritional solutions. A PICC line helps to decrease vein irritation from antibiotics, IV pain drugs, or IV cancer drugs. ??? A PICC line can be left in place when you go home. If you go home with a PICC line in place, home care can be set up via the nurse Station Installation Supervisor to help you. What are possible complications of having a PICC line put in? Some possible complications are: ??? bruising, swelling, or infection in the arm with the PICC line ??? mal-positioned catheter (catheter tip in wrong place) ??? occlusion (blocked catheter) ??? mechanical phlebitis (vein irritation) and thrombosis (clot) Your doctor is the person you should talk to if you have questions about what would happen if you do not choose to have a PICC line put in. Your doctor can talk to you about other choices you may have. What should I expect when it is put in? A written consent that gives your ok to have it put in needs to be signed after you understand thatyou are going to have a PICC put in, and all your questions about the procedure have been answered to your satisfaction. This is a safety feature that the hospital practices before doing procedures. An experienced nurse who has been through special training and education will be putting this catheter in. The procedure is done in a specially equipped room in Interventional Radiology on the third floor. The PICC nurse will first talk to you about any questions that you may have. The PICC nurse will explain to you what is going to be done before starting. Once you arrive in the procedure room in Interventional Radiology, the PICC nurse will then set up for the procedure. She will unwrap the sterile kit and open the needed supplies. A gown and mask andgloves will be worn while putting it in. An ultrasound machine will be used to help guide the catheter in the right place. This machine uses a handle with sound waves to find the vein. The area on your arm where the catheter will be put in is then numbed with a medicine put under your skin with a tiny needle. The nurse will then put in the catheter using fluoroscopy (a type of x-ray) as a guide. Once the catheter is in your vein, it will be threaded up your arm to the area beforeyour heart. While it is being threaded, you may be asked to turn your head. When the catheter is in, the nurse will place a small dressing on the site along with a little bowen which will help keep the catheter in place. After the procedure is done, a radiologist (doctor in x-ray department) will look at your x-ray to make sure that the end of the catheter is in proper position to give your fluids and/or medications. What should I expect in the care of my PICC? A dressing that is specially made to prevent infections will be put on. After this, the dressing will only be changed once a week unless it needs it sooner. If you go home with the catheter in, you may take a shower as long as you keep the site dry. You can do this by wearing a specially fitted PICC protector that will be provided to you before dischargefrom the hospital. The dressing at the site must be kept clean and dry. It is important that you watch for signs of infection at the site. Your healthcare provider should be notified if these occur: ??? Redness ??? Swelling ??? Pus ??? Pain at the site Other reasons to notify your healthcare provider are: ??? Catheter becomes partially or totally removed ??? Unable to infuse medication/fluid ??? Unable to draw back blood from the catheter. This may be an early sign that a clot is forming on the end of the catheter. If this occurs, a medicine called Cathflo may be used to dissolve this clot. Ask the PICC nurse or your doctor, any questions you may have so you feel secure in consenting to having a PICC line. References: Vascular Access Device Selection, Insertion, and Management, [employer] 09/03. A Review of the Efficacy, Safety, Use, and Administration of Cathflo, [employer] 2005 * Initial Assessments - Sunitha Damico RN - 10/28/2017 1:01 PM EST Office of Care Management Initial Assessment Sunitha Damico RN reviewed record and discussed patient with Care Team. Source of Information: Patient, girlfriend, chart review and bedside nurse. Introduced self/reviewed role; services accepted. Reason for Hospitalization: Reason for Admission as Stated by Patient: Abdominal Pain Past Medical History: Diagnosis Date ??? DM (diabetes mellitus) type 2 ??? ED (erectile dysfunction) ??? Gout ??? HTN (hypertension) ??? Hypercoagulable state Protein S deficiency ??? Hyperlipemia ??? Obesity ??? 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 Rectal cancer Hospitalizations Within the Past 30 Days: No Anticipated Length Of Stay (If known): Expected Length of Hospitalization: unknown Current Decision-Making Capacity: Patient is alert and orientated x4. Mr. Cheung is capable of making his own decisions and speak for himself. Advance Care Planning: Yes, on file at [facility]. Current Coping/Education/Information Needs: Current coping questions and concerns have been addressed. He understands that when he moves to a regular floor he will work with another case fitter until discharge. Current Functional Ability: TBD, may require PT/OT evaluation. Functional Status Prior to Admission: Ambulates without an assistive device, performs ADL's and IADL's. Home Environment: Lives in [place], [place]. He has 2 steps to enter the home with no surrounding railing. Social & Family Supports/Community Resources: He has plenty support of family and friends. Levi Cheung (Child) [phone] (H) Charlette Madrid (Friend) [phone] (H) Jazmyn Cheung (Parent) [phone] (H) Behavioral Health History: Denies depression or anxiety. Substance Use/Abuse: Quit smoking tobacco 20 years ago, denies use of any other tobacco products, denies use of EtOH, and smokes marijuana every day. Other Pertinent/Service Specific Information: None at this time. Health/Prescription Coverage: Primary Insurance: CIGNA Secondary Insurance: FINANCIAL ASSISTANCE Prescription Coverage: TBD Preferred Pharmacy: [facility] - [address] [employer] [place] Other: TBD Primary Care Provider: Randa Rosas, VALENTIN [phone] Patient/Caregiver Goals of Treatment: To go home Potential Needs for Transition of Care: : Discussed with patient and family levels of rehab including SNF, swing, acute and VNA home health and hospice care also discussed. Discussed need to accept first bed available when patient is medically ready Rehab/SNF: Declines Home Health:TBD DME: None Dialysis: N/A Community Resources: No needs identified at this time. Transportation: Son will take Mr. Cheung home in his private vehicle. Other: TBD Anticipated Barriers to Discharge/Special Considerations: No barriers identified to discharge. Plan: Discharge to home, needs TBD, possible home health. A member of the Care Management team will continue to monitor progress, follow for continuity of care and assist with transition of care planning. Sunitha Damico RN Pager: [phone] * Plan of Care - Jacqueline Zaldivar RN - 10/28/2017 2:26 AM EST Problem: Patient Care Overview Goal: Plan of Care Review Outcome: Ongoing (Interventions Implemented as Appropriate) 10/28/17 0220 Coping/Psychosocial Plan Of Care Reviewed With patient Plan of Care Review Progress no change OUTCOME EVALUATION NOTE: OUTCOME SUMMARY: Pt A&Ox4, moving extremities x4, independent. Hypotensive overnight SBP 70-90's, no interventions pt resolving BPs on own. SBP staying around 88-92, MD at bedside and no new orders, will continueto monitor and notify MD as needed. Pt asymptomatic. Per tele NSR 70-90's. Abdominal pain and distention, tender with palpation, active BSx4. NGT maintained on LCWS with moderate amounts of green bile excreted. NPO hold meds maintained. MIVF NS@125 maintained. Adequate clear yellow UOP throughout night through uriarte (retention). LLQ WNL. Lung sounds clear with coarse crackles in bases, pt requiring 2L NC while sleeping, MD aware per report pt has LEANDER. Pt is able to make needs known, call mosqueda within reach, will continue to monitor and provide support as needed. PLAN MOVING FORWARD: Monitor NGT output and bowel distention/pain. Monitor hemodynamic stability. INDIVIDUALIZED FALL PREVENTION INTERVENTIONS: Patient-specific fall risk factors per assessment: [current deficits]: Generalized weakness, unfamiliar environment. Assistance [level of assistance required for transfers and ambulation]: Stand-by Supervision [direct monitoring required during toileting and ADLs]: Eyes on Surveillance [continuous indirect monitoring]: Purposeful rounding, call mosqueda within reach, bed alarm on, room near unit station. Patient-specific fall prevention interventions for sensory deficits provided, if applicable: No CPG GOAL OUTCOME EVALUATION: Goal: Individualization & Mutuality Outcome: Ongoing (Interventions Implemented as Appropriate) 10/27/17 1608 Mutuality/Individual Preferences What Anxieties, Fears or Concerns Do You Have About Your Health or Care? none What Questions Do You Have About Your Health or Care? none What Information Would Help Us Give You More Personalized Care? none Goal: Fall Prevention-Safe Patient Handling Outcome: Ongoing (Interventions Implemented as Appropriate) 10/27/17199910/28/17 0200 [place] Fall Risk History of Falling 0 -- Secondary Diagnosis 15 -- Ambulatory Aids 0 -- Intravenous Therapy/Heparin/Saline Lock 20 -- Gait/Transferring 0 -- Mental Status 0 -- Score 35 -- OTHER [place] Fall Risk Med -- Restraint Interventions Safety Promotion/Fall Prevention -- activity supervised;fall prevention program maintained;nonskid shoes/slippers when out of bed;safety round/check completed Positioning Body Position -- independent Goal: Infection Control Outcome: Ongoing (Interventions Implemented as Appropriate) 10/27/17199910/28/17 0200 Safety Interventions Isolation Precautions -- standard precautions maintained Infection Prevention -- rest/sleep promoted;environmental surveillance performed Coping Strategies Supportive Measures active listening utilized;verbalization of feelings encouraged -- Goal: Discharge Needs Assessment Outcome: Ongoing (Interventions Implemented as Appropriate) 10/27/17 1727 Discharge Needs Assessment Concerns To Be Addressed no discharge needs identified Equipment Needed After Discharge colostomy/ostomy supplies;glucometer Discharge Disposition still a patient Current Health Anticipated Changes Related to Illness none Activity/Self Care Review of Systems Equipment Currently Used at Home colostomy/ostomy supplies;glucometer Living Environment Transportation Available car Goal: Interdisciplinary Rounds/Family Conf Outcome: Ongoing (Interventions Implemented as Appropriate) 10/28/17 0220 Interdisciplinary Rounds/Family Conf Participants patient;physician;nursing Problem: Pain, Acute (Adult) Goal: Identify Related Risk Factors and Signs and Symptoms Related risk factors and signs and symptoms are identified upon initiation of Human Response Clinical Practice Guideline (CPG) Outcome: Outcome (s) achieved Date Met: 10/28/17 10/27/17 1727 Pain, Acute Related Risk Factors (Acute Pain) disease process;patient perception;persistent pain;positioning Signs and Symptoms (Acute Pain) constipation/diarrhea;guarding/abnormal posturing/positioning;questions meaning of pain;verbalization of pain descriptors Goal: Acceptable Pain Control/Comfort Level Patient will demonstrate the desired outcomes by discharge/transition of care. Outcome: Ongoing (Interventions Implemented as Appropriate) 10/28/17 0220 Pain, Acute (Adult) Acceptable Pain Control/Comfort Level making progress toward outcome * Plan of Care - Michaelle Fernandes RN - 10/27/2017 5:40 PM EST Problem: Patient Care Overview Goal: Discharge Needs Assessment Outcome: Ongoing (Interventions Implemented as Appropriate) 10/27/17 1727 Discharge Needs Assessment Concerns To Be Addressed no discharge needs identified Equipment Needed After Discharge colostomy/ostomy supplies;glucometer Discharge Disposition still a patient Current Health Anticipated Changes Related to Illness none Activity/Self Care Review of Systems Equipment Currently Used at Home colostomy/ostomy supplies;glucometer Living Environment Transportation Available car OUTCOME EVALUATION NOTE: OUTCOME SUMMARY: Patient arrived in the ISCU from the ED at approximately 1615 complaining of abdominal pain and pain at NGT insertion site. Overal rating a 8/10 pain. Given PRN dose of IV dilaudid for the pain. SBP soft at 89. Team aware as PT had soft SBP on admission and is post-3L bolus. Other VSS and on RA. Inserted uriarte catheter and immediately rained 800cc of clear, yellow urine. No charted bladder scan or UOP from ED. Will continue to closely monitor BP and pain as well as I&O. NGT connected to LCWS. PLAN MOVING FORWARD: Monitor I&O, SBP and CV status, NGT tolerance and output, pain management and education. INDIVIDUALIZED FALL PREVENTION INTERVENTIONS: Patient-specific fall risk factors per assessment: [current deficits]: IV therapy, NGT to suction, pain, uriarte Assistance [level of assistance required for transfers and ambulation]: Stand-by Supervision [direct monitoring required during toileting and ADLs]: Eyes on Surveillance [continuous indirect monitoring]: [place] monitor, bed alarm on and audible, call mosqueda in reach, room near nurses station, purposeful rounding Patient-specific fall prevention interventions for sensory deficits provided, if applicable: [X] No CPG GOAL OUTCOME EVALUATION: Making progress. Goal: Interdisciplinary Rounds/Family Conf Outcome: Ongoing (Interventions Implemented as Appropriate) 10/27/17 1727 Interdisciplinary Rounds/Family Conf Participants patient;physician;nursing Problem: Pain, Acute (Adult) Goal: Identify Related Risk Factors and Signs and Symptoms Related risk factors and signs and symptoms are identified upon initiation of Human Response Clinical Practice Guideline (CPG) Outcome: Ongoing (Interventions Implemented as Appropriate) 10/27/17 172 Pain, Acute Related Risk Factors (Acute Pain) disease process;patient perception;persistent pain;positioning Signs and Symptoms (Acute Pain) constipation/diarrhea;guarding/abnormal posturing/positioning;questions meaning of pain;verbalization of pain descriptors Goal: Acceptable Pain Control/Comfort Level Patient will demonstrate the desired outcomes by discharge/transition of care. Outcome: Ongoing (Interventions Implemented as Appropriate) 10/27/171726 Pain, Acute (Adult) Acceptable Pain Control/Comfort Level making progress toward outcome * ED Triage - Art Torres RN - 10/27/2017 7:14 AM EST Pt to the ED with concerns of emesis and abdominal pain. Hx of rectal cancer x5 years ago, ostomy in place. Per pt, 40lb weight lost over the last month due to emesis and inability to keep anything down. Skin pale in appearance. Pt ambulatory into ED without assistance. Hypotensive on arrival. Placed on monitor, IV inserted, labs drawn, ED attending informed. documented in this encounter Plan of Treatment Not on file documented as of this encounter Procedures Procedure Name Priority Date/Time Associated Diagnosis Comments IMPLANTABLE DEVICES SCAN 11/06/2017 12:00 AM EST FORMULA TECHNICIAN SCAN 11/06/2017 12:00 AM EST POCT GLUCOSE Routine 11/05/2017 11:40 AM EST POCT GLUCOSE Routine 11/05/2017 7:38 AM EST POCT GLUCOSE Routine 11/05/2017 4:03 AM EST POCT GLUCOSE Routine 11/05/2017 12:19 AM EST POCT GLUCOSE Routine 11/04/2017 7:53 PM EST POCT GLUCOSE Routine 11/04/2017 4:18 PM EST POCT GLUCOSE Routine 11/04/2017 12:07 PM EST APTT STAT 11/04/2017 9:30 AM EST POCT GLUCOSE Routine 11/04/2017 7:50 AM EST POCT GLUCOSE Routine 11/04/2017 6:07 AM EST POCT GLUCOSE Routine 11/04/2017 3:48 AM EST HEMOGRAM Routine 11/04/2017 2:40 AM EST DIFFERENTIAL, AUTOMATED Routine 11/04/2017 2:40 AM EST APTT STAT 11/04/2017 2:40 AM EST CBC (WITH DIFF) Routine 11/04/2017 2:40 AM EST POCT GLUCOSE Routine 11/04/2017 12:06 AM EST POCT GLUCOSE Routine 11/03/2017 8:12 PM EST HEMOGRAM Routine 11/03/2017 6:35 PM EST DIFFERENTIAL, AUTOMATED Routine 11/03/2017 6:35 PM EST APTT STAT 11/03/2017 6:35 PM EST CBC (WITH DIFF) Routine 11/03/2017 6:35 PM EST POCT GLUCOSE Routine 11/03/2017 4:24 PM EST POCT GLUCOSE Routine 11/03/2017 11:52 AM EST HEMOGRAM Routine 11/03/2017 11:08 AM EST DIFFERENTIAL, AUTOMATED Routine 11/03/2017 11:08 AM EST LAVENDER TUBE HOLD Routine 11/03/2017 11 :08 AM EST APTT STAT 11/03/2017 11:08 AM EST CBC (WITH DIFF) Routine 11/03/2017 11:08 AM EST DUPLEX FOR DVT, LEG, UNILAT Routine 11/03/2017 9:54 AM EST Rectal cancer POCT GLUCOSE Routine 11/03/2017 8:11 AM EST POCT GLUCOSE Routine 11/03/2017 4:24 AM EST POCT GLUCOSE Routine 11/02/2017 11:55 PM EST POCT GLUCOSE Routine 11/02/2017 7:53 PM EST POCT GLUCOSE Routine 11/02/2017 6:43 PM EST POCT GLUCOSE Routine 11/02/2017 4:38 PM EST POCT GLUCOSE Routine 11/02/2017 12:18 PM EST POCT GLUCOSE Routine 11/02/2017 7:23 AM EST HEMOGRAM Routine 11/02/2017 4:20 AM EST DIFFERENTIAL, AUTOMATED Routine 11/02/2017 4:20 AM EST CBC (WITH DIFF) Routine 11/02/2017 4:20 AM EST PHOSPHORUS Routine 11/02/2017 4:20 AM EST MAGNESIUM Routine 11/02/2017 4:20 AM EST BASIC METABOLIC PANEL Routine 11/02/2017 4:20 AM EST POCT GLUCOSE Routine 11/02/2017 3:51 AM EST HEMOGRAM Routine 11/02/2017 3:21 AM EST DIFFERENTIAL, AUTOMATED Routine 11/02/2017 3:21 AM EST CBC (WITH DIFF) Routine 11/02/2017 3:21 AM EST POCT GLUCOSE Routine 11/01/2017 11:53 PM EST POCT GLUCOSE Routine 11/01/2017 8:03 PM EST POCT GLUCOSE Routine 11/01/2017 5:09 PM EST POCT GLUCOSE Routine 11/01/2017 11:44 AM EST POCT GLUCOSE Routine 11/01/2017 7:55 AM EST POCT GLUCOSE Routine 11/01/2017 4:12 AM EST POCT GLUCOSE Routine 11/01/2017 12:25 AM EST POCT GLUCOSE Routine 10/31/2017 8:03 PM EST POCT GLUCOSE Routine 10/31/2017 4:15 PM EST POCT GLUCOSE Routine 10/31/2017 1:12 PM EST POCT GLUCOSE Routine 10/31/2017 7:51 AM EST HEMOGRAM STAT 10/31/2017 6:01 AM EST DIFFERENTIAL, AUTOMATED STAT 10/31/2017 6:01 AM EST CBC (WITH DIFF) STAT 10/31/2017 6:01 AM EST PHOSPHORUS STAT 10/31/2017 6:01 AM EST MAGNESIUM STAT 10/31/2017 6:01 AM EST BASIC METABOLIC PANEL STAT 10/31/2017 6:01 AM EST POCT GLUCOSE Routine 10/31/2017 4:02 AM EST POCT GLUCOSE Routine 10/30/2017 11:55 PM EST POCT GLUCOSE Routine 10/30/2017 7:55 PM EST POCT GLUCOSE Routine 10/30/2017 4:54 PM EST POCT GLUCOSE Routine 10/30/2017 12:05 PM EST POCT GLUCOSE Routine 10/30/2017 8:33 AM EST HEMOGRAM STAT 10/30/2017 5:00 AM EST DIFFERENTIAL, AUTOMATED STAT 10/30/2017 5:00 AM EST CBC (WITH DIFF) STAT 10/30/2017 5:00 AM EST PHOSPHORUS STAT 10/30/2017 5:00 AM EST MAGNESIUM STAT 10/30/2017 5:00 AM EST BASIC METABOLIC PANEL STAT 10/30/2017 5:00 AM EST POCT GLUCOSE Routine 10/30/2017 4:17 AM EST POCT GLUCOSE Routine 10/30/2017 12:01 AM EST POCT GLUCOSE Routine 10/29/2017 8:44 PM EST POCT GLUCOSE Routine 10/29/2017 6:09 PM EST POCT GLUCOSE Routine 10/29/2017 3:50 PM EST POCT GLUCOSE Routine 10/29/2017 3:19 PM EST POCT GLUCOSE Routine 10/29/2017 2:30 PM EST POCT GLUCOSE Routine 10/29/2017 2:11 PM EST POCT GLUCOSE Routine 10/29/2017 1:49 PM EST SPECIMEN TO PATHOLOGY Routine 10/29/2017 1:46 PM EST SURGICAL PATHOLOGY REPORT Routine 10/29/2017 1:11 PM EST SPECIMEN TO PATHOLOGY Routine 10/29/2017 1:11 PM EST POCT GLUCOSE Routine 10/29/2017 1:05 PM EST BLOOD GAS ARTERIAL POC Routine 7 11:47 AM EST POCT GLUCOSE Routine 10/29/2017 10:12 AM EST XR FLUORO NO RAD <1HR - OR USE Routine 10/29/2017 9:27 AM EST INCARCERATED PARASTOMAL HERNIA REPAIR (WRVU 11.1) 10/29/2017 9:22 AM EST Small Bowel Obstruction MODIFIER MESH,BARD VENTRALIGHT ST 10/29/2017 9:22 AM EST Small Bowel Obstruction REPAIR INITIAL INCISIONAL OR VENTRAL HERNIA REDUCIBLE (WRVU 11.92) 10/29/2017 9:22 AM EST Small Bowel Obstruction @EXPLORATORY LAPAROTOMY, WITH/WITHOUT BIOPSY(S) (WRVU 12.54) 10/29/2017 9:22 AM EST Small Bowel Obstruction POCT GLUCOSE Routine 10/29/2017 8:16 AM EST POCT GLUCOSE Routine 10/29/2017 4:25 AM EST HEMOGRAM STAT 10/29/2017 2:40 AM EST DIFFERENTIAL, AUTOMATED STAT 10/29/2017 2:40 AM EST CBC (WITH DIFF) STAT 10/29/2017 2:40 AM EST PHOSPHORUS STAT 10/29/2017 2:40 AM EST MAGNESIUM STAT 10/29/2017 2:40 AM EST COMPREHENSIVE METABOLIC PANEL Routine 10/29/2017 2:40 AM EST POCT GLUCOSE Routine 10/28/2017 11:54 PM EST POCT GLUCOSE Routine 10/28/2017 4:[address] PICC LINE: CONTACT VASCULAR ACCESS Routine 10/28/2017 3:04 PM EST XR PICC PLACEMENT OVER 5 YEARS (IV TEAM) Routine 10/28/2017 2:38 PM EST XR ABDOMEN FLAT AND UPRIGHT Routine 10/28/2017 12:04 PM EST POCT GLUCOSE Routine 10/28/2017 11:22 AM EST PREALBUMIN Routine 10/28/2017 8:47 AM EST CEA Routine 10/28/2017 8:47 AM EST ALBUMIN LEVEL Routine 10/28/2017 8:47 AM EST POCT GLUCOSE Routine 10/28/2017 8:01 AM EST HEMOGRAM STAT 10/28/2017 1:55 AM EST DIFFERENTIAL, AUTOMATED STAT 10/28/2017 1:55 AM EST CBC (WITH DIFF) STAT 10/28/2017 1:55 AM EST PHOSPHORUS STAT 10/28/2017 1:55 AM EST MAGNESIUM STAT 10/28/2017 1:55 AM EST BASIC METABOLIC PANEL STAT 10/28/2017 1:55 AM EST POCT GLUCOSE Routine 10/27/2017 8:02 PM EST PHOSPHORUS Timed 10/27/2017 4:39 PM EST MAGNESIUM Timed 10/27/2017 4:39 PM EST BASIC METABOLIC PANEL Timed 10/27/2017 4:39 PM EST POCT GLUCOSE Routine 10/27/2017 4:11 PM EST XR ABDOMEN 1 VIEW STAT 10/27/2017 3:1 2 PM EST XR CHEST PA AND LATERAL STAT 10/27/2017 3:11 PM EST EKG 12-LEAD STAT 10/27/2017 2:53 PM EST Hypertension, unspecified type ABORH RECHECK STATUS STAT 10/27/2017 11:34 AM EST ABO/RH TYPING STAT 10/27/2017 11:34 AM EST ANTIBODY SCREEN STAT 10/27/2017 11:34 AM EST TYPE AND SCREEN ([facility]/CGP/ARACELI) STAT 10/27/2017 11:[address] ABDOMEN AND PELVIS WO CONTRAST STAT 10/27/2017 10:50 AM EST URINALYSIS MICROSCOPIC EXAM STAT 10/27/2017 10:16 AM EST URINALYSIS WITH REFLEX CULTURE STAT 10/27/2017 10:16 AM EST L-LACTATE2 WHOLE BLOOD Routine 7 7:41 AM EST HEMOGRAM STAT 10/27/2017 7:20 AM EST DIFFERENTIAL, AUTOMATED STAT 10/27/2017 7:20 AM EST BLUE TUBE HOLD STAT 10/27/2017 7:20 AM EST CBC (WITH DIFF) STAT 10/27/2017 7:20 AM EST LIPASE STAT 10/27/2017 7:20 AM EST HEPATIC FUNCTION PANEL STAT 7 7:20 AM EST BASIC METABOLIC PANEL STAT 10/27/2017 7:20 AM EST POCT URINE DIPSTICK STAT 10/27/2017 documented in this encounter Results * SCAN DOC: IMPLANTABLE DEVICES (11/06/2017 12:00 AM EST) Narrative 11/06/2017 12:00 AM EST Ordered by an unspecified provider. Scanning Provider MEDIA MGR SCAN EXT O RDR/RSLT * SCAN DOC: FORMULA TECHNICIAN (11/06/2017 12:00 AM EST) Anatomical Region Laterality Modality Other Narrative 11/06/2017 12:00 AM EST Ordered by an unspecified provider. Scanning Provider MEDIA MGR SCAN EXT O RDR/RSLT * POCT Glucose (11/05/2017 11:40 AM EST) Glucose, POC 116 65 - 199 mg/dL [facility] Comment: Supplemental ranges: <140 mg/dL before meals <180 mg/dL all other times of the day Blood specimen (specimen) 11/05/2017 11:40 AM EST 11/05/2017 11:40 AM EST Liss Price MD POINT OF CARE TEST O RDERABLES [facility] [place] [address] * POCT Glucose (11/05/2017 7:38 AM EST) Glucose, POC 129 65 - 199 mg/dL [facility] Comment: Supplemental ranges: <140 mg/dL before meals <180 mg/dL all other times of the day Blood specimen (specimen) 11/05/2017 7:38 AM EST 11/05/2017 7:38 AM EST Liss Price MD POINT OF CARE TEST O ANNAMARIAERAKENYA Performing Organization Address [facility] Co de Phone Number [facility] [place] [address] * POCT Glucose (11/05/2017 4:03 AM EST) Glucose, POC 150 65 - 199 mg/dL [facility] Comment: Supplemental ranges: <140 mg/dL before meals <180 mg/dL all other times of the day Blood specimen (specimen) 11/05/2017 4:03 AM EST 11/05/2017 4:03 AM EST Liss Price MD POINT OF CARE TEST O ZACH Performing Organization Address [facility] Co de Phone Number [facility] [place] [address] * POCT Glucose (11/05/2017 12:19 AM EST) Glucose, POC 129 65 - 199 mg/dL [facility] Comment: Supplemental ranges: <140 mg/dL before meals <180 mg/dL all other times of the day Blood specimen (specimen) 11/05/2017 12:19 AM EST 11/05/2017 12:19 AM EST Liss Price MD POINT OF CARE TEST O RDERAKENYA Performing Organization Address City/[facility] Co de Phone Number [facility] [place] [address] * POCT Glucose (11/04/2017 7:53 PM EST) Glucose, POC 128 65 - 199 mg/dL [facility] Comment: Supplemental ranges: <140 mg/dL before meals <180 mg/dL all other times of the day Blood specimen (specimen) 11/04/2017 7:53 PM EST 11/04/2017 7:53 PM EST Liss Price MD POINT OF CARE TEST O ZACH Performing Organization Address [facility] Co de Phone Number [facility] [place] [address] * (ABNORMAL) POCT Glucose (11/04/2017 4:18 PM EST) Glucose, POC 216(H) 65 - 199 mg/dL [facility] Comment: Supplemental ranges: <140 mg/dL before meals <180 mg/dL all other times of the day Blood specimen (specimen) 11/04/2017 4:18 PM EST 11/04/2017 4:18 PM EST Liss Price MD POINT OF CARE TEST Shala SERRANO Performing Organization Address [facility] Co de Phone Number [facility] [place] [address] * POCT Glucose (11/04/2017 12:07 PM EST) Glucose, POC 164 65 - 199 mg/dL [facility] Comment: Supplemental ranges: <140 mg/dL before meals <180 mg/dL all other times of the day Blood specimen (specimen) 11/04/2017 12:07 PM EST 11/04/2017 12:07 PM EST Liss Price MD POINT OF CARE TEST Shala SERRANO Performing Organization Address [facility] Co de Phone Number [facility] [place] [address] * (ABNORMAL) APTT (11/04/2017 9:30 AM EST) Partial Thromboplastin Time 104(H) 25 - 35 sec [facility] Comment: The recommended therapeutic range for full dose, unfractionated heparin at [facility] is 80 ? 114 seconds. The use of the anti-Xa (heparin) level rather than the PTT is recommended for monitoring anticoagulation intensity in critically ill patients receiving unfractionated heparin by continuous IV infusion. Blood specimen (specimen) 11/04/2017 9:30 AM EST 11/04/2017 9:50 AM EST Narrative Resulting Agency Comment Spec In Lab Liss Price MD HEMATOLOGY ORDERABLE S Performing Organization Address City/[facility]/ZIP Co de Phone Number [facility] [place] [address] * POCT Glucose (11/04/2017 7:50 AM EST) Glucose, POC 173 65 - 199 mg/dL [facility] Comment: Supplemental ranges: <140 mg/dL before meals <180 mg/dL all other times of the day Blood specimen (specimen) 11/04/2017 7:50 AM EST 11/04/2017 7:50 AM EST Liss Price MD POINT OF CARE TEST O RDERAKENYA Performing Organization Address [facility] Co de Phone Number [facility] [place] [address] * POCT Glucose (11/04/2017 6:07 AM EST) Glucose, POC 131 65 - 199 mg/dL [facility] Comment: Supplemental ranges: <140 mg/dL before meals <180 mg/dL all other times of the day Blood specimen (specimen) 11/04/2017 6:07 AM EST 11/04/2017 6:07 AM EST Liss Price MD POINT OF CARE TEST O ZACH Performing Organization Address [facility] Co de Phone Number [facility] [place] [address] * POCT Glucose (11/04/2017 3:48 AM EST) Glucose, POC 135 65 - 199 mg/dL [facility] Comment: Supplemental ranges: <140 mg/dL before meals <180 mg/dL all other times of the day Blood specimen (specimen) 11/04/2017 3:48 AM EST 11/04/2017 3:48 AM EST Liss Price MD POINT OF CARE TEST O RDERABLES [facility] [place] [address] * (ABNORMAL) Differential, Automated (11/04/2017 2:40 AM EST) Neutrophil % 73.1 % [facility] Neutrophil Absolute 5.91 1.70 - 6.10 x10(3)/mc L [facility] Lymph % 11.1 % [facility] Lymphocytes Abs 0.9 0.9 - 3.2 x10(3)/mc L [facility] Monocyte % 9.8 % [facility] Monocyte Abs 0.8 0.3 - 0.9 x10(3)/mc L [facility] Eos % 2.2 % [facility] Eosinophils Abs 0.2 0.0 - 0.4 x10(3)/mc L [facility] Basophil % 0.6 % [facility] Baso Absolute 0.0 0.0 - 0.1 x10(3)/mc L [facility] Immature Gran % 3.20 % [facility] Comment: Immature granulocytes(IG's)percentage and absolute count will include metamyelocytes, myelocytes, and promyelocytes. Blood smears from CBCs yielding IG's will be scanned manually for concordance. If this scan disagrees with the automated IG or if promyelocytes are noted, a manual differential will be performed. Immature Gran Absolute 0.26(H) 0.00 - 0.04 x10(3)/mc L [facility] Blood specimen (specimen) 11/04/2017 2:40 AM EST 11/04/2017 2:51 AM EST Narrative Resulting Agency Comment Spec In Lab Liss Price MD HEMATOLOGY ORDERABLE S Performing Organization Address City/[facility]/ZIP Co de Phone Number [facility] [place] [address] * (ABNORMAL) Hemogram (11/04/2017 2:40 AM EST) White Blood Cell 8.1 4.0 - 9.5 x10(3)/ L [facility] Red Blood Cell 3.13(L) 4.58 - 5.54 x10(6)/ L [facility] Hemoglobin 9.3(L) 13.7 - 16.5 gm/dL [facility] Hematocrit 28.4(L) 40.5 - 48.5 % [facility] Mean Cell Volume 90.7 82.9 - 93.1 [facility] Mean Cell Hemoglobin 29.7 27.5 - 32.1 pg [facility] Mean Cell Hemoglobin Concentration 32.7 32.0 - 35.7 gm/dL [facility] Platelet 193 145 - 357 x10(3)/[facility] RDW Standard Deviation 45.1(H) 36.0 - 45.0 [facility] RDW coefficient of variation 13.8 11.4 - 13.8 % [facility] Mean Platelet Volume 11.4 7.6 - 12.9 [facility] NRBC% auto 0.0 % [facility] NRBC Absolute 0.000 0.000 - 0.000 x10(3)/[facility] Blood specimen (specimen) 11/04/2017 2:40 AM EST 11/04/2017 2:51 AM EST Narrative Resulting Agency Comment Spec In Lab Liss Price MD HEMATOLOGY ORDERABLE S [facility] [place] [address] * (ABNORMAL) APTT (11/04/2017 2:40 AM EST) Partial Thromboplastin Time 73(H) 25 - 35 sec [facility] Comment: The recommended therapeutic range for full dose, unfractionated heparin at [facility] is 80 ? 114 seconds. The use of the anti-Xa (heparin) level rather than the PTT is recommended for monitoring anticoagulation intensity in critically ill patients receiving unfractionated heparin by continuous IV infusion. Blood specimen (specimen) 11/04/2017 2:40 AM EST 11/04/2017 2:51 AM EST Narrative Resulting Agency Comment Spec In Lab Liss Price MD HEMATOLOGY ORDERABLE S Performing Organization Address [facility] Co de Phone Number [facility] [place] [address] * POCT Glucose (11/04/2017 12:06 AM EST) Glucose, POC 162 65 - 199 mg/dL [facility] Comment: Supplemental ranges: <140 mg/dL before meals <180 mg/dL all other times of the day Blood specimen (specimen) 11/04/2017 12:06 AM EST 11/04/2017 12:06 AM EST Liss Price MD POINT OF CARE TEST O RDERABLES Performing Organization Address City/[facility]/ZIP Co de Phone Number [facility] [place] [address] * POCT Glucose (11/03/2017 8:12 PM EST) Glucose, POC 152 65 - 199 mg/dL [facility] Comment: Supplemental ranges: <140 mg/dL before meals <180 mg/dL all other times of the day Blood specimen (specimen) 11/03/2017 8:12 PM EST 11/03/2017 8:12 PM EST Liss Price MD POINT OF CARE TEST O RDERABLES Performing Organization Address [facility] Co de Phone Number [facility] [place] [address] * (ABNORMAL) Differential, Automated (11/03/2017 6:35 PM EST) Neutrophil % 75.3 % [facility] Neutrophil Absolute 6.61(H) 1.70 - 6.10 x10(3)/mc L [facility] Lymph % 11.2 % [facility] Lymphocytes Abs 1.0 0.9 - 3.2 x10(3)/mc L [facility] Monocyte % 8.3 % [facility] Monocyte Abs 0.7 0.3 - 0.9 x10(3)/mc L [facility] Eos % 2.7 % [facility] Eosinophils Abs 0.2 0.0 - 0.4 x10(3)/mc L [facility] Basophil % 0.6 % [facility] Baso Absolute 0.0 0.0 - 0.1 x10(3)/mc L [facility] Immature Gran % 1.90 % [facility] Comment: Immature granulocytes(IG's)percentage and absolute count will include metamyelocytes, myelocytes, and promyelocytes. Blood smears from CBCs yielding IG's will be scanned manually for concordance. If this scan disagrees with the automated IG or if promyelocytes are noted, a manual differential will be performed. Immature Gran Absolute 0.17(H) 0.00 - 0.04 x10(3)/mc L [facility] Blood specimen (specimen) 11/03/2017 6:35 PM EST 11/03/2017 6:56 PM EST Narrative Resulting Agency Comment Spec In Lab Liss Price MD HEMATOLOGY ORDERABLE S Performing Organization Address [facility] Co de Phone Number [facility] [place] [address] * (ABNORMAL) Hemogram (11/03/2017 6:35 PM EST) White Blood Cell 8.8 4.0 - 9.5 x10(3)/[facility] Red Blood Cell 3.31(L) 4.58 - 5.54 x10(6)/[facility] Hemoglobin 10.0(L) 13.7 - 16.5 gm/dL [facility] Hematocrit 29.6(L) 40.5 - 48.5 % [facility] Mean Cell Volume 89.4 82.9 - 93.1 fL [facility] Mean Cell Hemoglobin 30.2 27.5 - 32.1 pg [facility] Mean Cell Hemoglobin Concentration 33.8 32.0 - 35.7 gm/dL [facility] Platelet 181 145 - 357 x10(3)/[facility] RDW Standard Deviation 45.1(H) 36.0 - 45.0 [facility] RDW coefficient of variation 13.9(H) 11.4 - 13.8 % [facility] Mean Platelet Volume 11.5 7.6 - 12.9 [facility] NRBC% auto 0.0 % [facility] NRBC Absolute 0.000 0.000 - 0.000 x10(3)/[facility] Blood specimen (specimen) 11/03/2017 6:35 PM EST 11/03/2017 6:56 PM EST Narrative Resulting Agency Comment Spec In Lab Liss Price MD HEMATOLOGY ORDERABLE S [facility] [place] [address] * (ABNORMAL) APTT (11/03/2017 6:35 PM EST) Partial Thromboplastin Time >160(Crit ical) 25 - 35 sec [facility] Comment: Called by: tg, Read back by: saji henderson, Date/Time:11/03/17 19:34. The recommended therapeutic range for full dose, unfractionated heparin at [facility] is 80 ? 114 seconds. The use of the anti-Xa (heparin) level rather than the PTT is recommended for monitoring anticoagulation intensity in critically ill patients receiving unfractionated heparin by continuous IV infusion. Blood specimen (specimen) 11/03/2017 6:35 PM EST 11/03/2017 6:56 PM EST Narrative Resulting Agency Comment Spec In Lab Liss Price MD HEMATOLOGY ORDERABLE S Performing Organization Address City/[facility] Co de Phone Number [facility] [place] [place] [address] * POCT Glucose (11/03/2017 4:24 PM EST) Glucose, POC 128 65 - 199 mg/dL [facility] Comment: Supplemental ranges: <140 mg/dL before meals <180 mg/dL all other times of the day Blood specimen (specimen) 11/03/2017 4:24 PM EST 11/03/2017 4:24 PM EST Liss Price MD POINT OF CARE TEST O RDERAKENYA Performing Organization Address [facility] Co de Phone Number [facility] [place] [address] * (ABNORMAL) POCT Glucose (11/03/2017 11:52 AM EST) Glucose, POC 204(H) 65 - 199 mg/dL [facility] Comment: Supplemental ranges: <140 mg/dL before meals <180 mg/dL all other times of the day Blood specimen (specimen) 11/03/2017 11:52 AM EST 11/03/2017 11:52 AM EST Liss Price MD POINT OF CARE TEST O ZACH Performing Organization Address City/[facility]/ZIP Co de Phone Number [facility] [place] [address] * Lavender Tube HOLD (11/03/2017 11:08 AM EST) Lavender Hold Sample in lab. [facility] Blood specimen (specimen) Venous Draw / Unknown 11/03/2017 11:08 AM EST 11/03/2017 11:47 AM EST Liss Price MD HEMATOLOGY ORDERABLE S [facility] [place] [address] * (ABNORMAL) Differential, Automated (11/03/2017 11:08 AM EST) Pathologist [facility] Neutrophil % 78.4 % [facility] Neutrophil Absolute 7.20(H) 1.70 - 6.10 x10(3)/mc L [facility] Lymph % 8.9 % [facility] Lymphocytes Abs 0.8(L) 0.9 - 3.2 x10(3)/mc L [facility] Monocyte % 7.8 % [facility] Monocyte Abs 0.7 0.3 - 0.9 x10(3)/ L [facility] Eos % 2.3 % [facility] Eosinophils Abs 0.2 0.0 - 0.4 x10(3)/mc L [facility] Basophil % 0.5 % [facility] Baso Absolute 0.0 0.0 - 0.1 x10(3)/mc L [facility] Immature Gran % 2.10 % [facility] Comment: Immature granulocytes(IG's)percentage and absolute count will include metamyelocytes, myelocytes, and promyelocytes. Blood smears from CBCs yielding IG's will be scanned manually for concordance. If this scan disagrees with the automated IG or if promyelocytes are noted, a manual differential will be performed. Immature Gran Absolute 0.19(H) 0.00 - 0.04 x10(3)/mc L [facility] Blood specimen (specimen) 11/03/2017 11:08 AM EST 11/03/2017 11:46 AM EST Narrative Resulting Agency Comment Spec In Lab Liss Price MD HEMATOLOGY ORDERABLE S Performing Organization Address City/State/[facility] Co de Phone Number [facility] [place] [address] * (ABNORMAL) Hemogram (11/03/2017 11:08 AM EST) White Blood Cell 9.2 4.0 - 9.5 x10(3)/mc L [facility] Red Blood Cell 3.63(L) 4.58 - 5.54 x10(6)/mc L [facility] Hemoglobin 10.7(L) 13.7 - 16.5 gm/dL [facility] Hematocrit 32.5(L) 40.5 - 48.5 % [facility] Mean Cell Volume 89.5 82.9 - 93.1 fL [facility] Mean Cell Hemoglobin 29.5 27.5 - 32.1 pg [facility] Mean Cell Hemoglobin Concentration 32.9 32.0 - 35.7 gm/dL [facility] Platelet 166 145 - 357 x10(3)/mc L [facility] RDW Standard Deviation 45.6(H) 36.0 - 45.0 fL [facility] RDW coefficient of variation 14.0(H) 11.4 - 13.8 % [facility] Mean Platelet Volume 11.9 7.6 - 12.9 [facility] NRBC% auto 0.2 % [facility] NRBC Absolute 0.020(H) 0.000 - 0.000 x10(3)/ L [facility] Blood specimen (specimen) 11/03/2017 11:08 AM EST 11/03/2017 11:46 AM EST Narrative Resulting Agency Comment Spec In Lab Liss Price MD HEMATOLOGY ORDERABLE S Performing Organization Address City/[facility] Co de Phone Number [facility] [place] [address] * APTT (11/03/2017 11:08 AM EST) Partial Thromboplastin Time 28 25 - 35 sec [facility] Comment: The recommended therapeutic range for full dose, unfractionated heparin at [facility] is 80 ? 114 seconds. The use of the anti-Xa (heparin) level rather than the PTT is recommended for monitoring anticoagulation intensity in critically ill patients receiving unfractionated heparin by continuous IV infusion. Blood specimen (specimen) 11/03/2017 11:08 AM EST 11/03/2017 11:46 AM EST Narrative Resulting Agency Comment Spec In Lab Liss Price MD HEMATOLOGY ORDERABLE S Performing Organization Address [facility] Co de Phone Number [facility] [place] [address] * Duplex for DVT, Leg, Unilat (11/03/2017 9:54 AM EST) VB Text Report Department: Vascular Surgery Lab Patient: [id number] (ADRIEN CHEUNG) CPT: 79088 ICD10: I82.411;C20;I82 .431 Referring Physician: LISS PRICE ?? Phone: Indications: Cancer patient with h/o RLE DVT 20+yrs ago now with acute right leg swelling; ? DVT ICD10 Diagnosis Code: I82.411, C20, I82.431 RIGHT: Acute, occlusive deep venous thrombosis in the common femoral vein, saphenofemoral junction, proximal profunda femoris vein, femoral vein throughout the thigh, popliteal vein, posterior tibial veins, peroneal veins, and gastrocnemius veins. Interpretation: Extensive, acute, occlusive RIGHT lower extremity DVT from groin to ankle. Comparison: ??No previous study in our vascular lab database for comparison. Notification: Dr. Mark Brito was informed of these preliminary findings. Electronically Signed by: NAKUL SHOEMAKER on 2017-11-03 10:31:17 PM VASCUBASE VB Text Report End of Report VASCUBASE 11/03/2017 9:54 AM EST Liss Price MD VASCULAR ORDERABLES Performing Organization Address [facility] de Phone Number [employer] * POCT Glucose (11/03/2017 8:11 AM EST) Glucose, POC 138 65 - 199 mg/dL [facility] Comment: Supplemental ranges: <140 mg/dL before meals <180 mg/dL all other times of the day Blood specimen (specimen) 11/03/2017 8:11 AM EST 11/03/2017 8:11 AM EST Liss Price MD POINT OF CARE TEST O RDERABLES Performing Organization Address [facility] de Phone Number [facility] [place] [address] * POCT Glucose (11/03/2017 4:24 AM EST) Glucose, POC 169 65 - 199 mg/dL [facility] Comment: Supplemental ranges: <140 mg/dL before meals <180 mg/dL all other times of the day Blood specimen (specimen) 11/03/2017 4:24 AM EST 11/03/2017 4:24 AM EST Liss Price MD POINT OF CARE TEST O RDERABLES Performing Organization Address [facility] de Phone Number [facility] [place] [address] * POCT Glucose (11/02/2017 11:55 PM EST) Glucose, POC 171 65 - 199 mg/dL [facility] Comment: Supplemental ranges: <140 mg/dL before meals <180 mg/dL all other times of the day Blood specimen (specimen) 11/02/2017 11:55 PM EST 11/02/2017 11:55 PM EST Liss Price MD POINT OF CARE TEST O RDERABLES Performing Organization Address [facility] de Phone Number [facility] [place] [address] * POCT Glucose (11/02/2017 7:53 PM EST) Glucose, POC 187 65 - 199 mg/dL [facility] Comment: Supplemental ranges: <140 mg/dL before meals <180 mg/dL all other times of the day Blood specimen (specimen) 11/02/2017 7:53 PM EST 11/02/2017 7:53 PM EST Liss Price MD POINT OF CARE TEST O RDERAKENYA Performing Organization Address [facility] de Phone Number [facility] [place] [address] * POCT Glucose (11/02/2017 6:43 PM EST) Glucose, POC 188 65 - 199 mg/dL [facility] Comment: Supplemental ranges: <140 mg/dL before meals <180 mg/dL all other times of the day Blood specimen (specimen) 11/02/2017 6:43 PM EST 11/02/2017 6:43 PM EST Liss Price MD POINT OF CARE TEST O RDERABLES Performing Organization Address [facility] de Phone Number [facility] [place] [address] * (ABNORMAL) POCT Glucose (11/02/2017 4:38 PM EST) Glucose, POC 276(H) 65 - 199 mg/dL [facility] Comment: Supplemental ranges: <140 mg/dL before meals <180 mg/dL all other times of the day Blood specimen (specimen) 11/02/2017 4:38 PM EST 11/02/2017 4:38 PM EST Liss Price MD POINT OF CARE TEST O RDERABLES Performing Organization Address [facility] Co de Phone Number [facility] [place] [address] * (ABNORMAL) POCT Glucose (11/02/2017 12:18 PM EST) Glucose, POC 225(H) 65 - 199 mg/dL [facility] Comment: Supplemental ranges: <140 mg/dL before meals <180 mg/dL all other times of the day Blood specimen (specimen) 11/02/2017 12:18 PM EST 11/02/2017 12:18 PM EST Vivian Washington MD POINT OF CARE TEST ORDERABLES Performing Organization Address City/[facility]/ZIP Co de Phone Number [facility] [place] [address] * POCT Glucose (11/02/2017 7:23 AM EST) Glucose, POC 160 65 - 199 mg/dL [facility] Comment: Supplemental ranges: <140 mg/dL before meals <180 mg/dL all other times of the day Blood specimen (specimen) 11/02/2017 7:23 AM EST 11/02/2017 7:23 AM EST Vivian Washington MD POINT OF CARE TEST ORDERABLES [facility] [place] [address] * (ABNORMAL) Differential, Automated (11/02/2017 4:20 AM EST) Neutrophil % 70.0 % [facility] Neutrophil Absolute 4.74 1.70 - 6.10 x10(3)/mc L [facility] Lymph % 14.7 % [facility] Lymphocytes Abs 1.0 0.9 - 3.2 x10(3)/mc L [facility] Monocyte % 8.8 % [facility] Monocyte Abs 0.6 0.3 - 0.9 x10(3)/mc L [facility] Eos % 3.2 % [facility] Eosinophils Abs 0.2 0.0 - 0.4 x10(3)/[facility] Basophil % 0.6 % [facility] Baso Absolute 0.0 0.0 - 0.1 x10(3)/[facility] Immature Gran % 2.70 % [facility] Comment: Immature granulocytes(IG's)percentage and absolute count will include metamyelocytes, myelocytes, and promyelocytes. Blood smears from CBCs yielding IG's will be scanned manually for concordance. If this scan disagrees with the automated IG or if promyelocytes are noted, a manual differential will be performed. Immature Gran Absolute 0.18(H) 0.00 - 0.04 x10(3)/[facility] Blood specimen (specimen) 11/02/2017 4:20 AM EST 11/02/2017 4:30 AM EST Narrative Resulting Agency Comment Spec In Lab Vivian Washington MD HEMATOLOGY ORDERABL ES [facility] [place] [address] * (ABNORMAL) Hemogram (11/02/2017 4:20 AM EST) White Blood Cell 6.8 4.0 - 9.5 x10(3)/[facility] Red Blood Cell 3.01(L) 4.58 - 5.54 x10(6)/ L [facility] Hemoglobin 9.2(L) 13.7 - 16.5 gm/dL [facility] Hematocrit 27.7(L) 40.5 - 48.5 % [facility] Mean Cell Volume 92.0 82.9 - 93.1 fL [facility] Mean Cell Hemoglobin 30.6 27.5 - 32.1 pg [facility] Mean Cell Hemoglobin Concentration 33.2 32.0 - 35.7 gm/dL [facility] Platelet 132(L) 145 - 357 x10(3)/mc L [facility] RDW Standard Deviation 47.5(H) 36.0 - 45.0 fL [facility] RDW coefficient of variation 14.1(H) 11.4 - 13.8 % [facility] Mean Platelet Volume 11.5 7.6 - 12.9 fL [facility] NRBC% auto 0.4 % [facility] NRBC Absolute 0.030(H) 0.000 - 0.000 x10(3)/mc L [facility] Blood specimen (specimen) 11/02/2017 4:20 AM EST 11/02/2017 4:30 AM EST Narrative Resulting Agency Comment Spec In Lab Vivian Washington MD HEMATOLOGY ORDERABL ES Performing Organization Address City/[facility]/ZIP Co de Phone Number [facility] [place] [address] * Phosphorus (11/02/2017 4:20 AM EST) Phosphorus 3.7 2.5 - 4.5 mg/dL [facility] Blood specimen (specimen) 11/02/2017 4:20 AM EST 11/02/2017 4:30 AM EST Narrative Resulting Agency Comment Spec In Lab Vivian Washington MD CHEMISTRY ORDERABLE S Performing Organization Address City/[facility]/ZIP Co de Phone Number [facility] [place] [address] * (ABNORMAL) Magnesium (11/02/2017 4:20 AM EST) Magnesium 0.68(L) 0.69 - 1.07 mmol/L [facility] Blood specimen (specimen) 11/02/2017 4:20 AM EST 11/02/2017 4:30 AM EST Narrative Resulting Agency Comment Spec In Lab Vivian Washington MD CHEMISTRY ORDERABLE S Performing Organization Address [facility]/ZIP Co de Phone Number [facility] [place] [address] * (ABNORMAL) Basic Metabolic Panel (non-fasting) (11/02/2017 4:20 AM EST) Glucose 178 65 - 199 mg/dL [facility] Comment:Diabetes: >=200 mg/d L plus symptoms Blood Urea Nitrogen 21(H) 10 - 20 mg/dL [facility] Creatinine 0.45(L) 0.80 - 1.50 mg/dL [facility] Sodium 145 135 - 145 mmol/L [facility] Potassium 4.4 3.5 - 5.0 mmol/L [facility] Comment: Please note: ??Patients with WBC >100,000 may have falsely elevated Potassium levels. ??For accurate Potassium quantification in these patients send serum separator tube (gold top) for subsequent determinations. ??Contact the Clinical Chemistry Laboratory if there are any questions. Chloride 106 98 - 107 mmol/L [facility] Carbon Dioxide 26 22 - 31 mmol/L [facility] Anion Gap 13 5 - 15 mmol/L [facility] Calcium 7.5(L) 8.5 - 10.5 mg/dL [facility] Est Glomerular Filtration Rate >60 >=60 [facility] Comment: The reported eGFR should be multiplied by 1.2 for patients. The MDRD is not an appropriate measure of renal function for patients with body mass extremes or in patients with acute kidney failure. [email or web address] [email or web address] Blood specimen (specimen) 11/02/2017 4:20 AM EST 11/02/2017 4:30 AM EST Narrative Resulting Agency Comment Spec In Lab Vivian Washington MD CHEMISTRY ORDERABLE S Performing Organization Address [facility]/ZIP Co de Phone Number [facility] [place] [address] * POCT Glucose (11/02/2017 3:51 AM EST) Glucose, POC 180 65 - 199 mg/dL [facility] Comment: Supplemental ranges: <140 mg/dL before meals <180 mg/dL all other times of the day Blood specimen (specimen) 11/02/2017 3:51 AM EST 11/02/2017 3:51 AM EST Vivian Washington MD POINT OF CARE TEST ORDERABLES [facility] [place] [address] * (ABNORMAL) Differential, Automated (11/02/2017 3:21 AM EST) [facility] Neutrophil % 72.0 % [facility] Neutrophil Absolute 4.79 1.70 - 6.10 x10(3)/mc L [facility] Lymph % 13.0 % [facility] Lymphocytes Abs 0.9 0.9 - 3.2 x10(3)/mc L [facility] Monocyte % 8.9 % [facility] Monocyte Abs 0.6 0.3 - 0.9 x10(3)/mc L [facility] Eos % 3.2 % [facility] Eosinophils Abs 0.2 0.0 - 0.4 x10(3)/mc L [facility] Basophil % 0.8 % [facility] Baso Absolute 0.0 0.0 - 0.1 x10(3)/mc L [facility] Immature Gran % 2.10 % [facility] Comment: Immature granulocytes(IG's)percentage and absolute count will include metamyelocytes, myelocytes, and promyelocytes. Blood smears from CBCs yielding IG's will be scanned manually for concordance. If this scan disagrees with the automated IG or if promyelocytes are noted, a manual differential will be performed. Immature Gran Absolute 0.14(H) 0.00 - 0.04 x10(3)/mc L [facility] Blood specimen (specimen) 11/02/2017 3:21 AM EST 11/02/2017 3:28 AM EST Narrative Resulting Agency Comment Spec In Lab Vivian Washington MD HEMATOLOGY ORDERABL ES [facility] [place] [address] * (ABNORMAL) Hemogram (11/02/2017 3:21 AM EST) White Blood Cell 6.6 4.0 - 9.5 x10(3)/[facility] Red Blood Cell 2.84(L) 4.58 - 5.54 x10(6)/[facility] Hemoglobin 9.1(L) 13.7 - 16.5 gm/dL [facility] Hematocrit 27.1(L) 40.5 - 48.5 % [facility] Mean Cell Volume 95.4(H) 82.9 - 93.1 fL [facility] Mean Cell Hemoglobin 32.0 27.5 - 32.1 pg [facility] Mean Cell Hemoglobin Concentration 33.6 32.0 - 35.7 gm/dL [facility] Platelet 123(L) 145 - 357 x10(3)/[facility] RDW Standard Deviation 49.6(H) 36.0 - 45.0 [facility] RDW coefficient of variation 14.3(H) 11.4 - 13.8 % [facility] Mean Platelet Volume 11.5 7.6 - 12.9 [facility] NRBC% auto 0.3 % [facility] NRBC Absolute 0.020(H) 0.000 - 0.000 x10(3)/[facility] Blood specimen (specimen) 11/02/2017 3:21 AM EST 11/02/2017 3:28 AM EST Narrative Resulting Agency Comment Spec In Lab Vivian Washington MD HEMATOLOGY ORDERABL ES Performing Organization Address [facility] Co de Phone Number [facility] [place] [address] * POCT Glucose (11/01/2017 11:53 PM EST) Glucose, POC 153 65 - 199 mg/dL [facility] Comment: Supplemental ranges: <140 mg/dL before meals <180 mg/dL all other times of the day Blood specimen (specimen) 11/01/2017 11:53 PM EST 11/01/2017 11:53 PM EST Vivian Washington MD POINT OF CARE TEST ORDERABLES Performing Organization Address [facility] Co de Phone Number [facility] [place] [address] * POCT Glucose (11/01/2017 8:03 PM EST) Glucose, POC 192 65 - 199 mg/dL [facility] Comment: Supplemental ranges: <140 mg/dL before meals <180 mg/dL all other times of the day Blood specimen (specimen) 11/01/2017 8:03 PM EST 11/01/2017 8:03 PM EST Vivian Washington MD POINT OF CARE TEST ORDERABLES Performing Organization Address [facility] Co de Phone Number [facility] [address] * (ABNORMAL) POCT Glucose (11/01/2017 5:09 PM EST) Glucose, POC 212(H) 65 - 199 mg/dL [facility] Comment: Supplemental ranges: <140 mg/dL before meals <180 mg/dL all other times of the day Blood specimen (specimen) 11/01/2017 5:09 PM EST 11/01/2017 5:09 PM EST Vivian Washington MD POINT OF CARE TEST ORDERABLES Performing Organization Address City/[facility]/ZIP Co de Phone Number [facility] [place] [address] * POCT Glucose (11/01/2017 11:44 AM EST) Glucose, POC 195 65 - 199 mg/dL [facility] Comment: Supplemental ranges: <140 mg/dL before meals <180 mg/dL all other times of the day Blood specimen (specimen) 11/01/2017 11:44 AM EST 11/01/2017 11:44 AM EST Vivian Washington MD POINT OF CARE TEST ORDERABLES Performing Organization Address [facility] Co de Phone Number [facility] [address] * POCT Glucose (11/01/2017 7:55 AM EST) Glucose, POC 186 65 - 199 mg/dL [facility] Comment: Supplemental ranges: <140 mg/dL before meals <180 mg/dL all other times of the day Blood specimen (specimen) 11/01/2017 7:55 AM EST 11/01/2017 7:55 AM EST Vivian Washington MD POINT OF CARE TEST ORDERABLES Performing Organization Address City/[facility]/ZIP Co de Phone Number [facility] [place] [address] * POCT Glucose (11/01/2017 4:12 AM EST) Glucose, POC 194 65 - 199 mg/dL [facility] Comment: Supplemental ranges: <140 mg/dL before meals <180 mg/dL all other times of the day Blood specimen (specimen) 11/01/2017 4:12 AM EST 11/01/2017 4:12 AM EST Vivian Washington MD POINT OF CARE TEST ORDERABLES [facility] [place] [address] * POCT Glucose (11/01/2017 12:25 AM EST) Glucose, POC 189 65 - 199 mg/dL [facility] Comment: Supplemental ranges: <140 mg/dL before meals <180 mg/dL all other times of the day Blood specimen (specimen) 11/01/2017 12:25 AM EST 11/01/2017 12:25 AM EST Vivian Washington MD POINT OF CARE TEST ORDERABLES Performing Organization Address [facility] de Phone Number [facility] [place] [address] * POCT Glucose (10/31/2017 8:03 PM EST) Glucose, POC 182 65 - 199 mg/dL [facility] Comment: Supplemental ranges: <140 mg/dL before meals <180 mg/dL all other times of the day Blood specimen (specimen) 10/31/2017 8:03 PM EST 10/31/2017 8:03 PM EST Vivian Washington MD POINT OF CARE TEST ORDERABLES Performing Organization Address [facility] de Phone Number [facility] [place] [address] * (ABNORMAL) POCT Glucose (10/31/2017 4:15 PM EST) Glucose, POC 208(H) 65 - 199 mg/dL [facility] Comment: Supplemental ranges: <140 mg/dL before meals <180 mg/dL all other times of the day Blood specimen (specimen) 10/31/2017 4:15 PM EST 10/31/2017 4:15 PM EST Vivian Washington MD POINT OF CARE TEST ORDERABLES Performing Organization Address City/[facility]/ZIP Co de Phone Number [facility] [place] [address] * POCT Glucose (10/31/2017 1:12 PM EST) Glucose, POC 163 65 - 199 mg/dL [facility] Comment: Supplemental ranges: <140 mg/dL before meals <180 mg/dL all other times of the day Blood specimen (specimen) 10/31/2017 1:12 PM EST 10/31/2017 1:12 PM EST Vivian Washington MD POINT OF CARE TEST ORDERABLES [facility] [place] [address] * POCT Glucose (10/31/2017 7:51 AM EST) Glucose, POC 183 65 - 199 mg/dL [facility] Comment: Supplemental ranges: <140 mg/dL before meals <180 mg/dL all other times of the day Blood specimen (specimen) 10/31/2017 7:51 AM EST 10/31/2017 7:51 AM EST Vivian Washington MD POINT OF CARE TEST ORDERABLES [facility] [place] [address] * (ABNORMAL) Differential, Automated (10/31/2017 6:01 AM EST) Pathologist [facility] Neutrophil % 72.6 % [facility] Neutrophil Absolute 6.35(H) 1.70 - 6.10 x10(3)/mc L [facility] Lymph % 12.6 % [facility] Lymphocytes Abs 1.1 0.9 - 3.2 x10(3)/mc L [facility] Monocyte % 10.5 % [facility] Monocyte Abs 0.9 0.3 - 0.9 x10(3)/mc L [facility] Eos % 2.7 % [facility] Eosinophils Abs 0.2 0.0 - 0.4 x10(3)/[facility] Basophil % 0.7 % [facility] Baso Absolute 0.1 0.0 - 0.1 x10(3)/[facility] Immature Gran % 0.90 % [facility] Comment: Immature granulocytes(IG's)percentage and absolute count will include metamyelocytes, myelocytes, and promyelocytes. Blood smears from CBCs yielding IG's will be scanned manually for concordance. If this scan disagrees with the automated IG or if promyelocytes are noted, a manual differential will be performed. Immature Gran Absolute 0.08(H) 0.00 - 0.04 x10(3)/[facility] Blood specimen (specimen) 10/31/2017 6:01 AM EST 10/31/2017 6:08 AM EST Narrative Resulting Agency Comment Spec In Lab Vivian Washington MD HEMATOLOGY ORDERABL ES [facility] [place] [address] * (ABNORMAL) Hemogram (10/31/2017 6:01 AM EST) White Blood Cell 8.8 4.0 - 9.5 x10(3)/[facility] Red Blood Cell 3.43(L) 4.58 - 5.54 x10(6)/ L [facility] Hemoglobin 10.4(L) 13.7 - 16.5 gm/dL [facility] Hematocrit 31.9(L) 40.5 - 48.5 % [facility] Mean Cell Volume 93.0 82.9 - 93.1 fL [facility] Mean Cell Hemoglobin 30.3 27.5 - 32.1 pg [facility] Mean Cell Hemoglobin Concentration 32.6 32.0 - 35.7 gm/dL [facility] Platelet 117(L) 145 - 357 x10(3)/mc L [facility] RDW Standard Deviation 47.9(H) 36.0 - 45.0 fL [facility] RDW coefficient of variation 14.2(H) 11.4 - 13.8 % [facility] Mean Platelet Volume 10.4 7.6 - 12.9 fL [facility] NRBC% auto 0.0 % [facility] NRBC Absolute 0.000 0.000 - 0.000 x10(3)/mc L [facility] Blood specimen (specimen) 10/31/2017 6:01 AM EST 10/31/2017 6:08 AM EST Narrative Resulting Agency Comment Spec In Lab Vivian Washington MD HEMATOLOGY ORDERABL ES Performing Organization Address [facility] de Phone Number [facility] [place] [address] * Phosphorus (10/31/2017 6:01 AM EST) Phosphorus 3.6 2.5 - 4.5 mg/dL [facility] Blood specimen (specimen) 10/31/2017 6:01 AM EST 10/31/2017 6:08 AM EST Narrative Resulting Agency Comment Spec In Lab Vivian Washington MD CHEMISTRY ORDERABLE S Performing Organization Address [facility] Co de Phone Number [facility] [place] [address] * Magnesium (10/31/2017 6:01 AM EST) Magnesium 0.78 0.69 - 1.07 mmol/L [facility] Blood specimen (specimen) 10/31/2017 6:01 AM EST 10/31/2017 6:08 AM EST Narrative Resulting Agency Comment Spec In Lab Vivian Washington MD CHEMISTRY ORDERABLE S Performing Organization Address [facility] Co de Phone Number [facility] [place] [address] * (ABNORMAL) Basic Metabolic Panel (non-fasting) (10/31/2017 6:01 AM EST) Glucose 184 65 - 199 mg/dL [facility] Comment:Diabetes: >=200 mg/d L plus symptoms Blood Urea Nitrogen 26(H) 10 - 20 mg/dL [facility] Creatinine 0.58(L) 0.80 - 1.50 mg/dL [facility] Sodium 148(H) 135 - 145 mmol/L [facility] Potassium 4.6 3.5 - 5.0 mmol/L [facility] Comment: Please note: ??Patients with WBC >100,000 may have falsely elevated Potassium levels. ??For accurate Potassium quantification in these patients send serum separator tube (gold top) for subsequent determinations. ??Contact the Clinical Chemistry Laboratory if there are any questions. Chloride 110(H) 98 - 107 mmol/L [facility] Carbon Dioxide 28 22 - 31 mmol/L [facility] Anion Gap 10 5 - 15 mmol/L [facility] Calcium 7.7(L) 8.5 - 10.5 mg/dL [facility] Est Glomerular Filtration Rate >60 >=60 [facility] Comment: The reported eGFR should be multiplied by 1.2 for patients. The MDRD is not an appropriate measure of renal function for patients with body mass extremes or in patients with acute kidney failure. [email or web address] [email or web address] Blood specimen (specimen) 10/31/2017 6:01 AM EST 10/31/2017 6:08 AM EST Narrative Resulting Agency Comment Spec In Lab Vivian Washington MD CHEMISTRY ORDERABLE S [facility] [place] [address] * POCT Glucose (10/31/2017 4:02 AM EST) Glucose, POC 186 65 - 199 mg/dL [facility] Comment: Supplemental ranges: <140 mg/dL before meals <180 mg/dL all other times of the day Blood specimen (specimen) 10/31/2017 4:02 AM EST 10/31/2017 4:02 AM EST Vivian Washington MD POINT OF CARE TEST ORDERABLES [facility] [place] [address] * POCT Glucose (10/30/2017 11:55 PM EST) Glucose, POC 169 65 - 199 mg/dL [facility] Comment: Supplemental ranges: <140 mg/dL before meals <180 mg/dL all other times of the day Blood specimen (specimen) 10/30/2017 11:55 PM EST 10/30/2017 11:55 PM EST Vivian Washington MD POINT OF CARE TEST ORDERABLES [facility] [place] [address] * POCT Glucose (10/30/2017 7:55 PM EST) Glucose, POC 190 65 - 199 mg/dL [facility] Comment: Supplemental ranges: <140 mg/dL before meals <180 mg/dL all other times of the day Blood specimen (specimen) 10/30/2017 7:55 PM EST 10/30/2017 7:55 PM EST Vivian Washington MD POINT OF CARE TEST ORDERABLES [facility] [place] [address] * (ABNORMAL) POCT Glucose (10/30/2017 4:54 PM EST) Glucose, POC 238(H) 65 - 199 mg/dL [facility] Comment: Supplemental ranges: <140 mg/dL before meals <180 mg/dL all other times of the day Blood specimen (specimen) 10/30/2017 4:54 PM EST 10/30/2017 4:54 PM EST Vivian Washington MD POINT OF CARE TEST ORDERABLES Performing Organization Address City/[facility]/ZIP Co de Phone Number [facility] [place] [address] * (ABNORMAL) POCT Glucose (10/30/2017 12:05 PM EST) Glucose, POC 216(H) 65 - 199 mg/dL [facility] Comment: Supplemental ranges: <140 mg/dL before meals <180 mg/dL all other times of the day Blood specimen (specimen) 10/30/2017 12:05 PM EST 10/30/2017 12:05 PM EST Vivian Washington MD POINT OF CARE TEST ORDERABLES Performing Organization Address City/[facility] Co de Phone Number [facility] [place] [address] * POCT Glucose (10/30/2017 8:33 AM EST) Glucose, POC 195 65 - 199 mg/dL [facility] Comment: Supplemental ranges: <140 mg/dL before meals <180 mg/dL all other times of the day Blood specimen (specimen) 10/30/2017 8:33 AM EST 10/30/2017 8:33 AM EST Vivian Washington MD POINT OF CARE TEST ORDERABLES Performing Organization Address City/[facility] Co de Phone Number [facility] [place] [address] * (ABNORMAL) Differential, Automated (10/30/2017 5:00 AM EST) Neutrophil % 72.9 % [facility] Neutrophil Absolute 6.11(H) 1.70 - 6.10 x10(3)/[facility] Lymph % 13.9 % [facility] Lymphocytes Abs 1.2 0.9 - 3.2 x10(3)/[facility] Monocyte % 12.2 % [facility] Monocyte Abs 1.0(H) 0.3 - 0.9 x10(3)/[facility] Eos % 0.4 % [facility] Eosinophils Abs 0.0 0.0 - 0.4 x10(3)/[facility] Basophil % 0.1 % [facility] Baso Absolute 0.0 0.0 - 0.1 x10(3)/[facility] Immature Gran % 0.50 % [facility] Comment: Immature granulocytes(IG's)percentage and absolute count will include metamyelocytes, myelocytes, and promyelocytes. Blood smears from CBCs yielding IG's will be scanned manually for concordance. If this scan disagrees with the automated IG or if promyelocytes are noted, a manual differential will be performed. Immature Gran Absolute 0.04 0.00 - 0.04 x10(3)/[facility] Blood specimen (specimen) 10/30/2017 5:00 AM EST 10/30/2017 5:16 AM EST Narrative Resulting Agency Comment Spec In Lab Vivian Washington MD HEMATOLOGY ORDERABL ES [facility] [place] [address] * (ABNORMAL) Hemogram (10/30/2017 5:00 AM EST) White Blood Cell 8.4 4.0 - 9.5 x10(3)/[facility] Red Blood Cell 3.74(L) 4.58 - 5.54 x10(6)/[facility] Hemoglobin 11.2(L) 13.7 - 16.5 gm/dL [facility] Hematocrit 33.8(L) 40.5 - 48.5 % [facility] Mean Cell Volume 90.4 82.9 - 93.1 fL [facility] Mean Cell Hemoglobin 29.9 27.5 - 32.1 pg [facility] Mean Cell Hemoglobin Concentration 33.1 32.0 - 35.7 gm/dL [facility] Platelet 134(L) 145 - 357 x10(3)/mc L [facility] RDW Standard Deviation 46.3(H) 36.0 - 45.0 fL [facility] RDW coefficient of variation 14.0(H) 11.4 - 13.8 % [facility] Mean Platelet Volume 10.4 7.6 - 12.9 fL [facility] NRBC% auto 0.0 % [facility] NRBC Absolute 0.000 0.000 - 0.000 x10(3)/mc L [facility] Blood specimen (specimen) 10/30/2017 5:00 AM EST 10/30/2017 5:16 AM EST Narrative Resulting Agency Comment Spec In Lab Vivian Washington MD HEMATOLOGY ORDERABL ES Performing Organization Address City/[facility]/ZIP Co de Phone Number [facility] [place] [address] * Phosphorus (10/30/2017 5:00 AM EST) Phosphorus 2.9 2.5 - 4.5 mg/dL [facility] Blood specimen (specimen) 10/30/2017 5:00 AM EST 10/30/2017 5:16 AM EST Narrative Resulting Agency Comment Spec In Lab Vivian Washington MD CHEMISTRY ORDERABLE S Performing Organization Address City/[facility]/ZIP Co de Phone Number [facility] [place] [address] * Magnesium (10/30/2017 5:00 AM EST) Magnesium 0.79 0.69 - 1.07 mmol/L [facility] Blood specimen (specimen) 10/30/2017 5:00 AM EST 10/30/2017 5:16 AM EST Narrative Resulting Agency Comment Spec In Lab Vivian Washington MD CHEMISTRY ORDERABLE S [facility] [place] [address] * (ABNORMAL) Basic Metabolic Panel (non-fasting) (10/30/2017 5:00 AM EST) Glucose 216(H) 65 - 199 mg/dL [facility] Comment:Diabetes: >=200 mg/d L plus symptoms Blood Urea Nitrogen 24(H) 10 - 20 mg/dL [facility] Creatinine 0.62(L) 0.80 - 1.50 mg/dL [facility] Sodium 145 135 - 145 mmol/L [facility] Potassium 4.7 3.5 - 5.0 mmol/L [facility] Comment: Please note: ??Patients with WBC >100,000 may have falsely elevated Potassium levels. ??For accurate Potassium quantification in these patients send serum separator tube (gold top) for subsequent determinations. ??Contact the Clinical Chemistry Laboratory if there are any questions. Chloride 107 98 - 107 mmol/L [facility] Carbon Dioxide 29 22 - 31 mmol/L [facility] Anion Gap 9 5 - 15 mmol/L [facility] Calcium 7.7(L) 8.5 - 10.5 mg/dL [facility] Est Glomerular Filtration Rate >60 >=60 [facility] Comment: The reported eGFR should be multiplied by 1.2 for patients. The MDRD is not an appropriate measure of renal function for patients with body mass extremes or in patients with acute kidney failure. [email or web address] [email or web address] Blood specimen (specimen) 10/30/2017 5:00 AM EST 10/30/2017 5:16 AM EST Narrative Resulting Agency Comment Spec In Lab Vivian Washington MD CHEMISTRY ORDERABLE S Performing Organization Address [facility]/ZIP Co de Phone Number [facility] [place] [address] * POCT Glucose (10/30/2017 4:17 AM EST) Glucose, POC 198 65 - 199 mg/dL [facility] Comment: Supplemental ranges: <140 mg/dL before meals <180 mg/dL all other times of the day Blood specimen (specimen) 10/30/2017 4:17 AM EST 10/30/2017 4:17 AM EST Vivian Washington MD POINT OF CARE TEST ORDERABLES Performing Organization Address [facility] Co de Phone Number [facility] [place] [address] * (ABNORMAL) POCT Glucose (10/30/2017 12:01 AM EST) Glucose, POC 236(H) 65 - 199 mg/dL [facility] Comment: Supplemental ranges: <140 mg/dL before meals <180 mg/dL all other times of the day Blood specimen (specimen) 10/30/2017 12:01 AM EST 10/30/2017 12:01 AM EST Vivian Washington MD POINT OF CARE TEST ORDERABLES Performing Organization Address [facility] Co de Phone Number [facility] [place] [address] * (ABNORMAL) POCT Glucose (10/29/2017 8:44 PM EST) Glucose, POC 243(H) 65 - 199 mg/dL [facility] Comment: Supplemental ranges: <140 mg/dL before meals <180 mg/dL all other times of the day Blood specimen (specimen) 10/29/2017 8:44 PM EST 10/29/2017 8:44 PM EST Vivian Washington MD POINT OF CARE TEST ORDERABLES Performing Organization Address City/[facility] Co de Phone Number [facility] [place] [address] * (ABNORMAL) POCT Glucose (10/29/2017 6:09 PM EST) Glucose, POC 281(H) 65 - 199 mg/dL [facility] Comment: Supplemental ranges: <140 mg/dL before meals <180 mg/dL all other times of the day Blood specimen (specimen) 10/29/2017 6:09 PM EST 10/29/2017 6:09 PM EST Vivian Washington MD POINT OF CARE TEST ORDERABLES Performing Organization Address [facility] Co de Phone Number [facility] [place] [address] * (ABNORMAL) POCT Glucose (10/29/2017 3:50 PM EST) Glucose, POC 245(H) 65 - 199 mg/dL [facility] Comment: Supplemental ranges: <140 mg/dL before meals <180 mg/dL all other times of the day Blood specimen (specimen) 10/29/2017 3:50 PM EST 10/29/2017 3:50 PM EST Vivian Washington MD POINT OF CARE TEST ORDERABLES Performing Organization Address City/[facility] Co de Phone Number [facility] [place] [address] * (ABNORMAL) POCT Glucose (10/29/2017 3:19 PM EST) Glucose, POC 211(H) 65 - 199 mg/dL [facility] Comment: Supplemental ranges: <140 mg/dL before meals <180 mg/dL all other times of the day Blood specimen (specimen) 10/29/2017 3:19 PM EST 10/29/2017 3:19 PM EST Narrative Authorizing Provider Result Nikkie Washington MD POINT OF CARE TEST ORDERABLES Performing Organization Address City/[facility]/ZIP Co de Phone Number [facility] [place] [address] * (ABNORMAL) POCT Glucose (10/29/2017 2:30 PM EST) Glucose, POC 217(H) 65 - 199 mg/dL [facility] Comment: Supplemental ranges: <140 mg/dL before meals <180 mg/dL all other times of the day Blood specimen (specimen) 10/29/2017 2:30 PM EST 10/29/2017 2:30 PM EST Vivian Washington MD POINT OF CARE TEST ORDERABLES Performing Organization Address [facility] Co de Phone Number [facility] [place] [address] * (ABNORMAL) POCT Glucose (10/29/2017 2:11 PM EST) Glucose, POC 207(H) 65 - 199 mg/dL [facility] Comment: Supplemental ranges: <140 mg/dL before meals <180 mg/dL all other times of the day Blood specimen (specimen) 10/29/2017 2:11 PM EST 10/29/2017 2:11 PM EST Vivian Washington MD POINT OF CARE TEST ORDERABLES Performing Organization Address City/[facility] Co de Phone Number [facility] [place] [address] * (ABNORMAL) POCT Glucose (10/29/2017 1:49 PM EST) Glucose, POC 208(H) 65 - 199 mg/dL [facility] Comment: Supplemental ranges: <140 mg/dL before meals <180 mg/dL all other times of the day Blood specimen (specimen) 10/29/2017 1:49 PM EST 10/29/2017 1:49 PM EST Vivian Washington MD POINT OF CARE TEST ORDERABLES Performing Organization Address [facility] Co de Phone Number [facility] [place] [address] * Specimen to Pathology (surgical or derm) (10/29/2017 1:46 PM EST) AP Specimen 10/29/2017 1:46 PM EST 10/29/2017 1:46 PM EST Narrative [facility] - 10/29/2017 1:46 PM EST Specimen requisition ordered. ??Separate Pathology report to follow Vivian Washington MD PATHOLOGY/CYTOLOGY ORDERABLES Performing Organization Address [facility] Co de Phone Number [facility] [place] [address] * Surgical Pathology Report (10/29/2017 1:11 PM EST) Final Diagnosis [id number] ? Location: 3V The signing pathologist has (i) examined the relevant preparation(s) for the specimen(s) and (ii) rendered or confirmed the diagnosis(es). . ?Surgical Pathology DIAGNOSIS A - Appendix within normal limits. B - ??Fibromembranous tissue, hernia sac , site not specified. ? Gross surgical pathology examination. Electronically signed by: ??Adrian FUNES PhD, [place] Verified: ??11/03/2017 ?Pathologist Performed at: ??-[facility] Dept. of Pathology, [place], [place] CLINICAL INFORMATION Specimen Submitted: A - Appendix B - Hernia Sac Clinical History: Small bowel obstruction Clinical Diagnosis: Small bowel obstruction SPECIMEN PROCESSING A - ??Labeled/Fixativ e: Appendix, fresh. Quantity/Size: Single, 10.1 x 0.9 x 0.8 cm appendix, with a 14.3 x 4.1 x 1.2 cm portion of lobulated mesoappendix. Tissue Description: Light pink, smooth appendix with attached portion of yellow lobulated adipose tissue. Received intact. ??Surface: Light pink, smooth. ??Wall: 0.1 cm thick. No perforation identified. ??Lumen: 2.4 cm lumen, containing soft, brown fecal material. Sections/Processi ng: (A1) tip of appendix, bisected; (A2) Margin Trimmer cross sections of appendix. (R2) ??knr B - ??Labeled/Fixativ e: Hernia sac, fresh. Quantity/Size: ??Single, 6.5 x 5.5 x 4.5 cm. Tissue Description: Soft, lovett-pink, semitransparent, membranous tissue without grossly identifiable lesions. Sections/Processi ng: No sections are submitted. sns 11/03/2017 10:41 AM EST [facility] HERNIA SAC / Unknown 10/29/2017 1:11 PM EST 10/29/2017 1:11 PM EST HERNIA SAC / Unknown 10/29/2017 1:11 PM EST 10/29/2017 1:11 PM EST Vivian Washington MD PATHOLOGY/CYTOLOGY ORDERABLES Performing Organization Address City/[facility]/ZIP Co de Phone Number [facility] [place] [phone] * Specimen to Pathology (surgical or derm) (10/29/2017 1:11 PM EST) AP Specimen 10/29/2017 1:11 PM EST 10/29/2017 1:11 PM EST Narrative [facility] - 10/29/2017 1:11 PM EST Specimen requisition ordered. ??Separate Pathology report to follow Vivian Washington MD PATHOLOGY/CYTOLOGY ORDERABLES [facility] [place] [address] * (ABNORMAL) POCT Glucose (10/29/2017 1:05 PM EST) Glucose, POC 207(H) 65 - 199 mg/dL [facility] Comment: Supplemental ranges: <140 mg/dL before meals <180 mg/dL all other times of the day Blood specimen (specimen) 10/29/2017 1:05 PM EST 10/29/2017 1:05 PM EST Vivian Washington MD POINT OF CARE TEST ORDERABLES [facility] [place] [address] * (ABNORMAL) BLOOD GAS 2 ARTERIAL (10/29/2017 11:47 AM EST) pH, Arterial 7.45 7.35 - 7.45 [facility] PCO2, Arterial 39 35 - 45 mmHg [facility] PO2, Arterial 90 85 - 104 mmHg [facility] Bicarbonate, Arterial 26.3(H) 20.0 - 26.0 mmol/L [facility] Base Excess, Arterial 2.2 -3.0 - 3.0 mmol/L [facility] Hgb Blood Gas 12.1(L) 13.7 - 16.5 gm/dL [facility] Oxyhemoglobin, Arterial 95.8 94.0 - 97.0 % [facility] Carboxyhemoglob in, Arterial 0.7 % [facility] Comment: Nonsmokers: 0.5-1.5% COHB Smokers: Variable, but usually less than 10% Toxic: 20-30% COHB Lethal: Greater than 60% COHB Methemoglobin, Arterial 0.3 <=1.5 % [facility] Na Whole Blood 136 135 - 145 mmol/L [facility] K Whole Blood 4.2 3.5 - 5.0 mmol/L [facility] Comment: Please note: Patients with WBC >100,000 may have falsely elevated Potassium levels. Contact the Clinical Chemistry Laboratory if there are any questions. ICa Whole Blood 1.12(L) 1.15 - 1.33 mmol/L [facility] Comment: Note: ??Total bilirubin higher than 20 mg/dL may lead to falsely low ionized calcium. CL Whole Blood 103 98 - 107 mmol/L [facility] Gluc Whole Bld 206(H) 65 - 199 mg/dL [facility] Comment:Diabetes: >=200 mg/d L plus symptoms. Lactate WB 1.3 0.5 - 2.2 mmol/L [facility] Temp Art 36.5 Celsius [facility] Blood specimen (specimen) 10/29/2017 11:47 AM EST 10/29/2017 11:47 AM EST Vivian Washington MD POINT OF CARE TEST ORDERABLES Performing Organization Address [facility] Co de Phone Number [facility] [place] [address] * POCT Glucose (10/29/2017 10:12 AM EST) Glucose, POC 199 65 - 199 mg/dL [facility] Comment: Supplemental ranges: <140 mg/dL before meals <180 mg/dL all other times of the day Blood specimen (specimen) 10/29/2017 10:12 AM EST 10/29/2017 10:12 AM EST Vivian Washington MD POINT OF CARE TEST ORDERABLES Performing Organization Address City/[facility]/ZIP Co de Phone Number [facility] [place] [address] * XR Fluoro No Rad <1Hr - OR Use (10/29/2017 9:27 AM EST) Narrative RAD - 10/29/2017 9:27 AM EST This order does not need a radiologist interpretation. ?? Vivian Washington MD IMG FLUORO ORDERABL ES Performing Organization Address City/[facility] Co de Phone Number [place], [place] * (ABNORMAL) POCT Glucose (10/29/2017 8:16 AM EST) Glucose, POC 239(H) 65 - 199 mg/dL [facility] Comment: Supplemental ranges: <140 mg/dL before meals <180 mg/dL all other times of the day Blood specimen (specimen) 10/29/2017 8:16 AM EST 10/29/2017 8:16 AM EST Vivian Washington MD POINT OF CARE TEST ORDERABLES Performing Organization Address City/[facility]/ZIP Co de Phone Number [facility] [place] [address] * POCT Glucose (10/29/2017 4:25 AM EST) Glucose, POC 180 65 - 199 mg/dL [facility] Comment: Supplemental ranges: <140 mg/dL before meals <180 mg/dL all other times of the day Blood specimen (specimen) 10/29/2017 4:25 AM EST 10/29/2017 4:25 AM EST Vivian Washington MD POINT OF CARE TEST ORDERABLES [facility] [place] [address] * Differential, Automated (10/29/2017 2:40 AM EST) [facility] Neutrophil % 70.6 % [facility] Neutrophil Absolute 5.12 1.70 - 6.10 x10(3)/[facility] Lymph % 15.0 % [facility] Lymphocytes Abs 1.1 0.9 - 3.2 x10(3)/[facility] Monocyte % 12.4 % [facility] Monocyte Abs 0.9 0.3 - 0.9 x10(3)/[facility] Eos % 1.0 % [facility] Eosinophils Abs 0.1 0.0 - 0.4 x10(3)/[facility] Basophil % 0.6 % [facility] Baso Absolute 0.0 0.0 - 0.1 x10(3)/[facility] Immature Gran % 0.40 % [facility] Comment: Immature granulocytes(IG's)percentage and absolute count will include metamyelocytes, myelocytes, and promyelocytes. Blood smears from CBCs yielding IG's will be scanned manually for concordance. If this scan disagrees with the automated IG or if promyelocytes are noted, a manual differential will be performed. Immature Gran Absolute 0.03 0.00 - 0.04 x10(3)/[facility] Blood specimen (specimen) 10/29/2017 2:40 AM EST 10/29/2017 2:48 AM EST Narrative Resulting Agency Comment Spec In Lab Vivian Washington MD HEMATOLOGY ORDERABL ES Performing Organization Address City/State/[facility] Co de Phone Number [facility] [place] [address] * (ABNORMAL) Hemogram (10/29/2017 2:40 AM EST) White Blood Cell 7.2 4.0 - 9.5 x10(3)/[facility] Red Blood Cell 3.53(L) 4.58 - 5.54 x10(6)/ L [facility] Hemoglobin 10.6(L) 13.7 - 16.5 gm/dL [facility] Hematocrit 31.2(L) 40.5 - 48.5 % [facility] Mean Cell Volume 88.4 82.9 - 93.1 fL [facility] Mean Cell Hemoglobin 30.0 27.5 - 32.1 pg [facility] Mean Cell Hemoglobin Concentration 34.0 32.0 - 35.7 gm/dL [facility] Platelet 160 145 - 357 x10(3)/[facility] RDW Standard Deviation 45.0 36.0 - 45.0 fL [facility] RDW coefficient of variation 13.8 11.4 - 13.8 % [facility] Mean Platelet Volume 10.1 7.6 - 12.9 fL [facility] NRBC% auto 0.0 % [facility] NRBC Absolute 0.000 0.000 - 0.000 x10(3)/mc L [facility] Blood specimen (specimen) 10/29/2017 2:40 AM EST 10/29/2017 2:48 AM EST Narrative Resulting Agency Comment Spec In Lab Vviian Washington MD HEMATOLOGY ORDERABL ES Performing Organization Address [facility] Co de Phone Number [facility] [place] [address] * (ABNORMAL) Phosphorus (10/29/2017 2:40 AM EST) Phosphorus 2.1(L) 2.5 - 4.5 mg/dL [facility] Blood specimen (specimen) 10/29/2017 2:40 AM EST 10/29/2017 2:48 AM EST Narrative Resulting Agency Comment Spec In Lab Vivian Washington MD CHEMISTRY ORDERABLE S Performing Organization Address [facility] Co de Phone Number [facility] [place] [address] * Magnesium (10/29/2017 2:40 AM EST) Magnesium 0.70 0.69 - 1.07 mmol/L [facility] Blood specimen (specimen) 10/29/2017 2:40 AM EST 10/29/2017 2:48 AM EST Narrative Resulting Agency Comment Spec In Lab Vivian Washington MD CHEMISTRY ORDERABLE S Performing Organization Address [facility] Co de Phone Number [facility] [place] [address] * (ABNORMAL) Comprehensive metabolic panel (non-fasting) (10/29/2017 2:40 AM EST) Glucose 213(H) 65 - 199 mg/dL [facility] Comment:Diabetes: >=200 mg/d L plus symptoms Blood Urea Nitrogen 26(H) 10 - 20 mg/dL [facility] Creatinine 0.58(L) 0.80 - 1.50 mg/dL [facility] Sodium 139 135 - 145 mmol/L [facility] Potassium 3.8 3.5 - 5.0 mmol/L [facility] Comment: Please note: ??Patients with WBC >100,000 may have falsely elevated Potassium levels. ??For accurate Potassium quantification in these patients send serum separator tube (gold top) for subsequent determinations. ??Contact the Clinical Chemistry Laboratory if there are any questions. Chloride 99 98 - 107 mmol/L [facility] Carbon Dioxide 25 22 - 31 mmol/L [facility] Anion Gap 15 5 - 15 mmol/L [facility] Calcium 7.8(L) 8.5 - 10.5 mg/dL [facility] Protein, Total 5.0(L) 6.1 - 8.0 gm/dL [facility] Albumin 2.7(L) 3.2 - 5.2 gm/dL [facility] Aspartate Aminotransferase 8 0 - 39 unit/L [facility] Alanine Aminotransferase 13 0 - 55 unit/L [facility] Alkaline Phosphatase 55 40 - 120 unit/L [facility] Bilirubin, Total 0.4 0.2 - 1.3 mg/dL [facility] Est Glomerular Filtration Rate >60 >=60 [facility] Comment: The reported eGFR should be multiplied by 1.2 for patients. The MDRD is not an appropriate measure of renal function for patients with body mass extremes or in patients with acute kidney failure. http://[employer]/DHnkdep http://Lucid[employer]/DHMCnkf Blood specimen (specimen) 10/29/2017 2:40 AM EST 10/29/2017 2:48 AM EST Narrative Resulting Agency Comment Spec In Lab Vivian Washington MD CHEMISTRY ORDERABLE S Performing Organization Address [facility] Co de Phone Number [facility] [place] [address] * POCT Glucose (10/28/2017 11:54 PM EST) Glucose, POC 171 65 - 199 mg/dL [facility] Comment: Supplemental ranges: <140 mg/dL before meals <180 mg/dL all other times of the day Blood specimen (specimen) 10/28/2017 11:54 PM EST 10/28/2017 11:54 PM EST Vivian Washington MD POINT OF CARE TEST ORDERABLES Performing Organization Address [facility] Co de Phone Number [facility] [address] * POCT Glucose (10/28/2017 4:23 PM EST) Glucose, POC 88 65 - 199 mg/dL [facility] Comment: Supplemental ranges: <140 mg/dL before meals <180 mg/dL all other times of the day Blood specimen (specimen) 10/28/2017 4:23 PM EST 10/28/2017 4:23 PM EST Vivian Washington MD POINT OF CARE TEST ORDERABLES Performing Organization Address [facility] Co de Phone Number [facility] [place] [address] * Place PICC Line: Contact Vascular Access Page [phone] Extremity to exclude: No restrictions; Is PICC procedure required PRIOR to patients discharge? Yes (10/28/2017 3:04 PM EST) Narrative Michael Joyner RN - 10/28/2017 3:04 PM EST Michael Joyner RN ? 10/28/2017 ??3:04 PM PICC/Midline Insertion Procedure Note Indications: Access, TPN and Medication Administration This insertion was not to replace a malfunctioning catheter. This insertion was not due to a suspected line-associated infection. Location of Procedure: X-Ray Room 11 Risks and Benefits: The risks and benefits of this procedure were reviewed and informed consent was obtained obtained. Time Out: Prior to the start of the procedure, the patient's identity, intended procedure, site/side, correct patient positioning and presence of the site adrien was confirmed as applicable. The medical history and chart were reviewed to rule out potential contraindications to the planned procedure. Hand Hygiene: The sole buffer did perform hand hygiene prior to line insertion. Catheter type: PICC Lot number: [id number] Procedure Technique: Skin was prepped with chlorhexidine. Skin preparation agent was completely dry at the time of first skin puncture. The following barrier precaution methods were used:large sterile drape, maske/eye shield, large sterile gown, sterile gloves and cap. 2 ml of 1% Lidocaine was used for skin wheal. Ultrasound was used for guidance. ??Radiographic contrast agent was not injected for vein identification. Procedure Details: Order received for catheter placement. A 5 Fr. triple lumen Bard Power catheter was placed into the right basilic vein over a 0.018 inch guidewire using modified seldinger technique and fluoroscopy. Arm circumference was 31 cm at 2 cm above the insertion site. Final catheter length (with trimming): 44 cm Internal: 44 cm External: 0 cm Tip in SVC per DR QUIÑONEZ. The line was not placed over a guidewire. Post Procedure: Diagnosis: fatigue s/p APrepair Blood return noted on aspiration of line after placement confirmed. 5 mls of normal saline infused free flowing to gravity via PICC after insertion. Sterile dressing applied: CHG Impregnated Tegaderm. Findings: The patient did tolerate the procedure well. No Complications. Procedure Comments: ACCESSED RIGHT BASILIC AND BRACHIAL VEIN ,UNABLE TO ADVANCE WIRE BEYOND AXILLA NOTED WITH XRAY MICHAEL JOYNER RN 10/28/2017 Vivian Washington MD PROCEDURE/MINOR MAY GICAL ORDERABLES * XR PICC Placement Over 5 Years (IV Team) (10/28/2017 2:38 PM EST) Anatomical Region Laterality Modality N/A Radio Fluoroscop y Impressions 10/28/2017 2:49 PM EST FINDINGS/IMPRESSION: Intraprocedural frontal radiograph of the mediastinum demonstrates a Left PICC, with the catheter tip projected at the inferior aspect of the superior vena cava. I have personally reviewed the image(s) and the residents interpretation and agree with the findings, Tammie Quiñonez at 10/28/2017 2:49 PM Narrative 10/28/2017 2:49 PM EST EXAMINATION: XR PICC PLACEMENT OVER 5 YEARS (IV TEAM) CLINICAL HISTORY: Confirmation of PICC line placement TECHNIQUE: C-arm placement of PICC. Limited view of the line tip only. COMPARISON: 10/27/2017 chest radiograph Procedure Note Tammie Calloway MD - 10/28/2017 EXAMINATION: XR PICC PLACEMENT OVER 5 YEARS (IV TEAM) CLINICAL HISTORY: Confirmation of PICC line placement TECHNIQUE: C-arm placement of PICC. Limited view of the line tip only. COMPARISON: 10/27/2017 chest radiograph IMPRESSION FINDINGS/IMPRESSION: Intraprocedural frontal radiograph of themediastinum demonstrates a Left PICC, with the catheter tip projected at the inferioraspect of the superior vena cava. I have personally reviewed the image(s) and the residents interpretationand agree with the findings, Tammie Quiñonez at 10/28/2017 2:49PM Electronically signed by: Tammie Quiñonez Radiology, at112/28/2016 2:49 PM Vivian Washington MD IMG FLUORO ORDERABL ES * XR Abdomen Flat & Upright (10/28/2017 12:04 PM EST) Anatomical Region Laterality Modality Abdomen N/A Digital Radiogra phy Impressions 10/28/2017 1:45 PM EST The GI contrast has reached the colon and largely cleared the partially obstructed small bowel bowel. Narrative 10/28/2017 1:45 PM EST EXAMINATION: XR ABDOMEN FLAT AND UPRIGHT CLINICAL HISTORY: pSBO; eval for location of PO contrast TECHNIQUE: Supine and upright views the abdomen COMPARISON: Upright view of the abdomen 10/27/[address] scan of the abdomen and pelvis 10/27/2017. FINDINGS: Since the previous study, contrast has moved into a nondistended colon from the region of the cecum to the mid descending colon. There are dilated loops of small bowel. The pattern is still suggestive of a partial small bowel obstruction. An NG tube is in the stomach. No free air to suggest bowel perforation. Procedure Note Jj Kenney MD - 10/28/2017 EXAMINATION: XR ABDOMEN FLAT AND UPRIGHT CLINICAL HISTORY: pSBO; eval for location of PO contrast TECHNIQUE: Supine and upright views the abdomen COMPARISON: Upright view of the abdomen 10/27/[address] scan of the abdomen andpelvis 10/27/2017. FINDINGS: Since the previous study, contrast has moved into a nondistended colonfrom the region of the cecum to the mid descending colon. There are dilated loopsof small bowel. The pattern is still suggestive of a partial small bowel obstruction. An NG tube is in the stomach. No free air to suggest bowel perforation. IMPRESSION The GI contrast has reached the colon and largely cleared the partially obstructed small bowel bowel. Vivian Washington MD IMG DX ORDERABLES * POCT Glucose (10/28/2017 11:22 AM EST) Glucose, POC 86 65 - 199 mg/dL [facility] Comment: Supplemental ranges: <140 mg/dL before meals <180 mg/dL all other times of the day Blood specimen (specimen) 10/28/2017 11:22 AM EST 10/28/2017 11:22 AM EST Vivian Washington MD POINT OF CARE TEST ORDERABLES [facility] [place] [address] * CEA (10/28/2017 8:47 AM EST) Carcinoembryonic Antigen 2.1 <=3.8 ng/mL [facility] Comment: Reference range: ??(20-69 years): Non-smoker: ??less than or equal to 3.8 ng/mL Smoker: ??less than 5.5 ng/ml Blood specimen (specimen) Venous Draw / Unknown 10/28/2017 8:47 AM EST 10/28/2017 8:53 AM EST Narrative Resulting Agency Comment Spec In Lab Vivian Washington MD CHEMISTRY ORDERABLE S Performing Organization Address City/[facility] Co de Phone Number [facility] [place] [address] * (ABNORMAL) Prealbumin (10/28/2017 8:47 AM EST) Prealbumin 15(L) 20 - 40 mg/dL [facility] Comment: Prealbumin levels are generally lower in the pediatric population; adult concentrations are usually attained near puberty. Blood specimen (specimen) 10/28/2017 8:47 AM EST 10/28/2017 8:51 AM EST Narrative Resulting Agency Comment Spec In Lab Vivian Washington MD CHEMISTRY ORDERABLE S Performing Organization Address [facility] Co de Phone Number [facility] [place] [address] * (ABNORMAL) Albumin Level (10/28/2017 8:47 AM EST) Albumin 2.9(L) 3.2 - 5.2 gm/dL [facility] Blood specimen (specimen) 10/28/2017 8:47 AM EST 10/28/2017 8:51 AM EST Narrative Resulting Agency Comment Spec In Lab Vivian Washington MD CHEMISTRY ORDERABLE S Performing Organization Address City/[facility] Co de Phone Number [facility] [place] [address] * POCT Glucose (10/28/2017 8:01 AM EST) Glucose, POC 84 65 - 199 mg/dL [facility] Comment: Supplemental ranges: <140 mg/dL before meals <180 mg/dL all other times of the day Blood specimen (specimen) 10/28/2017 8:01 AM EST 10/28/2017 8:01 AM EST Vivian Washington MD POINT OF CARE TEST ORDERABLES Performing Organization Address City/State/[facility] Co de Phone Number [facility] [place] [address] * (ABNORMAL) Differential, Automated (10/28/2017 1:55 AM EST) [facility] Neutrophil % 73.6 % [facility] Neutrophil Absolute 5.44 1.70 - 6.10 x10(3)/mc L [facility] Lymph % 12.5 % [facility] Lymphocytes Abs 0.9 0.9 - 3.2 x10(3)/ L [facility] Monocyte % 11.7 % [facility] Monocyte Abs 0.9 0.3 - 0.9 x10(3)/ L [facility] Eos % 0.8 % [facility] Eosinophils Abs 0.1 0.0 - 0.4 x10(3)/ L [facility] Basophil % 0.7 % [facility] Baso Absolute 0.0 0.0 - 0.1 x10(3)/mc L [facility] Immature Gran % 0.70 % [facility] Comment: Immature granulocytes(IG's)percentage and absolute count will include metamyelocytes, myelocytes, and promyelocytes. Blood smears from CBCs yielding IG's will be scanned manually for concordance. If this scan disagrees with the automated IG or if promyelocytes are noted, a manual differential will be performed. Immature Gran Absolute 0.05(H) 0.00 - 0.04 x10(3)/mc L [facility] Blood specimen (specimen) 10/28/2017 1:55 AM EST 10/28/2017 2:08 AM EST Narrative Resulting Agency Comment Spec In Lab Vivian Washington MD HEMATOLOGY ORDERABL ES Performing Organization Address City/[facility] Co de Phone Number [facility] [place] [address] * (ABNORMAL) Hemogram (10/28/2017 1:55 AM EST) White Blood Cell 7.4 4.0 - 9.5 x10(3)/mc L [facility] Red Blood Cell 3.79(L) 4.58 - 5.54 x10(6)/mc L [facility] Hemoglobin 11.3(L) 13.7 - 16.5 gm/dL [facility] Hematocrit 32.8(L) 40.5 - 48.5 % [facility] Mean Cell Volume 86.5 82.9 - 93.1 fL [facility] Mean Cell Hemoglobin 29.8 27.5 - 32.1 pg [facility] Mean Cell Hemoglobin Concentration 34.5 32.0 - 35.7 gm/dL [facility] Platelet 178 145 - 357 x10(3)/mc L [facility] RDW Standard Deviation 42.9 36.0 - 45.0 [facility] RDW coefficient of variation 13.7 11.4 - 13.8 % [facility] Mean Platelet Volume 10.3 7.6 - 12.9 [facility] NRBC% auto 0.0 % [facility] NRBC Absolute 0.000 0.000 - 0.000 x10(3)/mc L [facility] Blood specimen (specimen) 10/28/2017 1:55 AM EST 10/28/2017 2:08 AM EST Narrative Resulting Agency Comment Spec In Lab Vivian Washington MD HEMATOLOGY ORDERABL ES [facility] [place] [address] * (ABNORMAL) Phosphorus (10/28/2017 1:55 AM EST) [facility] Phosphorus 2.4(L) 2.5 - 4.5 mg/dL [facility] Blood specimen (specimen) 10/28/2017 1:55 AM EST 10/28/2017 2:08 AM EST Narrative Resulting Agency Comment Spec In Lab Vivian Washington MD CHEMISTRY ORDERABLE S Performing Organization Address [facility] Co de Phone Number [facility] [place] [address] * (ABNORMAL) Magnesium (10/28/2017 1:55 AM EST) [facility] Magnesium 0.62(L) 0.69 - 1.07 mmol/L [facility] Blood specimen (specimen) 10/28/2017 1:55 AM EST 10/28/2017 2:08 AM EST Narrative Resulting Agency Comment Spec In Lab Vivian Washington MD CHEMISTRY ORDERABLE S Performing Organization Address [facility] de Phone Number [facility] [place] [address] * (ABNORMAL) Basic Metabolic Panel (non-fasting) (10/28/2017 1:55 AM EST) [facility] Glucose 82 65 - 199 mg/dL [facility] Comment:Diabetes: >=200 mg/d L plus symptoms Blood Urea Nitrogen 57(H) 10 - 20 mg/dL [facility] Comment:result rechecked-karla Creatinine 0.96 0.80 - 1.50 mg/dL [facility] Comment:result rechecked-karla Sodium 137 135 - 145 mmol/L [facility] Comment:result rechecked-karla Potassium 3.6 3.5 - 5.0 mmol/L [facility] Comment: result rechecked-karla Please note: ??Patients with WBC >100,000 may have falsely elevated Potassium levels. ??For accurate Potassium quantification in these patients send serum separator tube (gold top) for subsequent determinations. ??Contact the Clinical Chemistry Laboratory if there are any questions. Chloride 97(L) 98 - 107 mmol/L [facility] Comment:result rechecked-karla Carbon Dioxide 23 22 - 31 mmol/L [facility] Anion Gap 17(H) 5 - 15 mmol/L [facility] Calcium 7.5(L) 8.5 - 10.5 mg/dL [facility] Est Glomerular Filtration Rate >60 >=60 [facility] Comment: The reported eGFR should be multiplied by 1.2 for patients. The MDRD is not an appropriate measure of renal function for patients with body mass extremes or in patients with acute kidney failure. http://Lucid[employer]/DHnkdep http://Lucid[employer]/DHMCnkf Blood specimen (specimen) 10/28/2017 1:55 AM EST 10/28/2017 2:08 AM EST Narrative Resulting Agency Comment Spec In Lab Vivian Washington MD CHEMISTRY ORDERABLE S Performing Organization Address City/[facility]/ZIP Co de Phone Number [facility] [place] [address] * POCT Glucose (10/27/2017 8:02 PM EST) Glucose, POC 92 65 - 199 mg/dL [facility] Comment: Supplemental ranges: <140 mg/dL before meals <180 mg/dL all other times of the day Blood specimen (specimen) 10/27/2017 8:02 PM EST 10/27/2017 8:02 PM EST Vivian Washington MD POINT OF CARE TEST ORDERABLES Performing Organization Address City/[facility]/ZIP Co de Phone Number [facility] [place] [address] * Phosphorus (10/27/2017 4:39 PM EST) Phosphorus 3.6 2.5 - 4.5 mg/dL [facility] Blood specimen (specimen) 10/27/2017 4:39 PM EST 10/27/2017 4:52 PM EST Narrative Resulting Agency Comment Spec In Lab Swetha Price MD CHEMISTRY ORDERABLES Performing Organization Address [facility] Co de Phone Number [facility] [place] [address] * (ABNORMAL) Magnesium (10/27/2017 4:39 PM EST) Magnesium 0.56(L) 0.69 - 1.07 mmol/L [facility] Blood specimen (specimen) 10/27/2017 4:39 PM EST 10/27/2017 4:52 PM EST Narrative Resulting Agency Comment Spec In Lab Swetha Price MD CHEMISTRY ORDERABLES Performing Organization Address [facility] de Phone Number [facility] [place] [address] * (ABNORMAL) Basic Metabolic Panel (non-fasting) (10/27/2017 4:39 PM EST) Pathologist [facility] Glucose 96 65 - 199 mg/dL [facility] Comment:Diabetes: >=200 mg/d L plus symptoms Blood Urea Nitrogen 89(H) 10 - 20 mg/dL [facility] Creatinine 1.96(H) 0.80 - 1.50 mg/dL [facility] Comment:result rechecked-cdp Sodium 130(L) 135 - 145 mmol/L [facility] Potassium 4.3 3.5 - 5.0 mmol/L [facility] Comment: Please note: ??Patients with WBC >100,000 may have falsely elevated Potassium levels. ??For accurate Potassium quantification in these patients send serum separator tube (gold top) for subsequent determinations. ??Contact the Clinical Chemistry Laboratory if there are any questions. Chloride 88(L) 98 - 107 mmol/L [facility] Carbon Dioxide 23 22 - 31 mmol/L [facility] Anion Gap 19(H) 5 - 15 mmol/L [facility] Calcium 7.5(L) 8.5 - 10.5 mg/dL [facility] Est Glomerular Filtration Rate 35(L) >=60 [facility] Comment: The reported eGFR should be multiplied by 1.2 for patients. The MDRD is not an appropriate measure of renal function for patients with body mass extremes or in patients with acute kidney failure. http://Lucidux/DHnkdep http://Lucidux/DHMCnkf Blood specimen (specimen) 10/27/2017 4:39 PM EST 10/27/2017 4:52 PM EST Narrative Resulting Agency Comment Spec In Lab Swetha Price MD CHEMISTRY ORDERABLES [facility] [place] [address] * POCT Glucose (10/27/2017 4:11 PM EST) Glucose, POC 96 65 - 199 mg/dL [facility] Comment: Supplemental ranges: <140 mg/dL before meals <180 mg/dL all other times of the day Blood specimen (specimen) 10/27/2017 4:11 PM EST 10/27/2017 4:11 PM EST Vivian Washington MD POINT OF CARE TEST ORDERABLES Performing Organization Address [facility]/ZIP Co de Phone Number [facility] [place] [address] * XR Abdomen 1 view (Generic) (10/27/2017 3:12 PM EST) Anatomical Region Laterality Modality Abdomen N/A Digital Radiogra phy Impressions 10/27/2017 3:26 PM EST 1. ??Enteric tube in position. 2. ??Redemonstration of the known small bowel obstruction. I have personally reviewed the image(s) and the residents interpretation and agree with the findings, YESSICA TRIPLETT at 10/27/2017 3:26 PM Narrative 10/27/2017 3:26 PM EST EXAMINATION: XR ABDOMEN 1 VIEW (GENERIC) CLINICAL HISTORY: s/p NGT placement TECHNIQUE: Standing AP abdominal radiograph COMPARISON: CT of the abdomen and pelvis 10/27/2017 FINDINGS: The visualized lung bases are clear. Enteric tube projects below the diaphragm with tip and side-port both projecting over the stomach and passed the gastroesophageal junction. There are multiple air-filled dilated loops of bowel with air-fluid levels within the midabdomen, consistent with obstruction. The bilateral ventral abdominal hernias are better characterized on the recent CT. There are scattered foci of gas within the nondilated visualized colon. No pneumoperitoneum. No abnormal soft tissue calcification. No acute osseous findings. Procedure Note Yessica Triplett MD - 10/27/2017 EXAMINATION: XR ABDOMEN 1 VIEW (GENERIC) CLINICAL HISTORY: s/p NGT placement TECHNIQUE: Standing AP abdominal radiograph COMPARISON: CT of the abdomen and pelvis 10/27/2017 FINDINGS: The visualized lung bases are clear. Enteric tube projects below the diaphragm with tip and side-port bothprojecting over the stomach and passed the gastroesophageal junction. There are multiple air-filled dilated loops of bowel with air-fluidlevels within the midabdomen, consistent with obstruction. The bilateralventral abdominal hernias are better characterized on the recent CT. There are scattered foci of gas within the nondilated visualized colon. No pneumoperitoneum. No abnormal soft tissue calcification. No acute osseous findings. IMPRESSION 1. Enteric tube in position. 2. Redemonstration of the known small bowel obstruction. I have personally reviewed the image(s) and the residents interpretationand agree with the findings, YESSICA TRIPLETT at 10/27/2017 3:26 PM Electronically signed by: FABRICE CHRISTENSEN Radiology, at112/27/2016 3:26 PM Swetha Price MD IMG DX ORDERABLES * XR Chest PA & Lateral (Generic) (10/27/2017 3:11 PM EST) Anatomical Region Laterality Modality Chest N/A Digital Radiogra phy Impressions 10/27/2017 3:19 PM EST No active cardiopulmonary pathology identified. NG tube tip in gastric fundus. See also separately reported abdominal radiograph. Narrative 10/27/2017 3:19 PM EST EXAMINATION: XR CHEST PA AND LATERAL (GENERIC) CLINICAL HISTORY: s/p NGT placement and pre-op TECHNIQUE: PA and lateral views of the chest. ? COMPARISON: None. FINDINGS: Slightly low lung volumes from shallow inspiration, with crowding of vessel markings at the lung bases, but otherwise grossly clear. The cardiomediastinal silhouette, aubrie, pulmonary vessels, and pleura are within normal limits. ??Coronary calcification and/or stents are visible. Nasogastric tube appears to terminate in the gastric fundus, and projects dorsally and cephalad. Procedure Note Jahaira Christopher MD - 10/27/2017 EXAMINATION: XR CHEST PA AND LATERAL (GENERIC) CLINICAL HISTORY: s/p NGT placement and pre-op TECHNIQUE: PA and lateral views of the chest. COMPARISON: None. FINDINGS: Slightly low lung volumes from shallow inspiration, withcrowding of vessel markings at the lung bases, but otherwise grossly clear. The cardiomediastinal silhouette, aubrie, pulmonary vessels, and pleura arewithin normal limits. Coronary calcification and/or stents are visible.Nasogastric tube appears to terminate in the gastric fundus, and projects dorsallyand cephalad. IMPRESSION No active cardiopulmonary pathology identified. NG tube tip in gastric fundus. See also separately reported abdominal radiograph. Swetha Price MD [facility] DX ORDERABLES * EKG 12 Lead (10/27/2017 2:53 PM EST) Ventricular rate 86 BPM MUSE SYSTEM Atrial Rate 86 BPM MUSE SYSTEM P-R Interval 146 ms MUSE SYSTEM QRS Duration 94 ms MUSE SYSTEM Q-T Interval 372 ms MUSE SYSTEM QTC Calculated (Bezet) 445 ms MUSE SYSTEM Calculated P Shedd 26 degrees MUSE SYSTEM Calculated R Shedd 45 degrees MUSE SYSTEM Calculated T Shedd 25 degrees MUSE SYSTEM INTERPRETATION Normal sinus rhythm Possible Inferior infarct , age undetermined Abnormal R wave progression Possible Anterior infarct , age undetermined Abnormal ECG When compared with ECG of 06-APR-2013 16:45, Possible Anterior infarct is now Present No significant change was found Confirmed by MD Lyla, Paul Carballo ([id number]) on 10/27/2017 5:01:51 PM MUSE SYSTEM 10/27/2017 2:53 PM EST 10/27/2017 5:01 PM EST Swetha Price MD ECG ORDERABLES Performing Organization Address City/[facility]/ZIP Co de Phone Number MUSE SYSTEM * ABORH Recheck Status (10/27/2017 11:34 AM EST) ABORH Type Recheck Completed [facility] Blood specimen (specimen) 10/27/2017 11:34 AM EST 10/27/2017 3:40 PM EST Narrative Resulting Agency Comment Spec In Lab Swetha Price MD BLOOD BANK LAB ORDER CINDA Performing Organization Address [facility] Co de Phone Number [facility] [place] [address] * Antibody screen (10/27/2017 11:34 AM EST) Ab Screen Interp Negative [facility] Expires at [id number] on: 10/30/2017 [facility] Blood specimen (specimen) 10/27/2017 11:34 AM EST 10/27/2017 3:40 PM EST Narrative Resulting Agency Comment Spec In Lab Swetha Price MD BLOOD BANK LAB ORDER CINDA Performing Organization Address City/[facility]/ZIP Co de Phone Number [facility] [place] [address] * ABO/Rh Typing (10/27/2017 11:34 AM EST) ABORH Type A Neg [facility] Blood specimen (specimen) 10/27/2017 11:34 AM EST 10/27/2017 3:40 PM EST Narrative Resulting Agency Comment Spec In Lab Swetha Price MD BLOOD BANK LAB ORDER CINDA [facility] [place] [address] * CT Abdomen & Pelvis wo Contrast (10/27/2017 10:50 AM EST) Anatomical Region Laterality Modality Abdomen, Pelvis Computed Tomogra phy Impressions 10/27/2017 1:22 PM EST 1. ??Status post abdominoperineal resection with a descending colostomy in the left lower quadrant. A parastomal hernia containing loops of small bowel has been present since July 2017, however it is now causing a partial small bowel obstruction with dilatation of proximal loops of small bowel up to 7 cm in transverse dimension. 2. ??No CT evidence of perforation. 3. ??A right para midline ventral hernia containing nondilated loops of small bowel. This is stable in appearance. 4. 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 5. ??New mild dilatation of both renal collecting systems and ureters is likely secondary to the severely distended urinary bladder. I have personally reviewed the image(s) and the residents interpretation and agree with the findings, Dana Healy at 10/27/2017 1:22 PM Narrative 10/27/2017 1:22 PM EST EXAMINATION: CT ABDOMEN AND PELVIS WO CONTRAST CLINICAL HISTORY: hx of rectal cancer, with left sided ostomy. ??had recent SBO, now presenting w/vomiting and hypotension TECHNIQUE: Helical CT of the abdomen and pelvis was performed without the use of intravenous contrast. ??Multiplanar reformatted images were generated. COMPARISON: 08/24/2017, 02/14/2015 FINDINGS: No nodules, masses, or pleural effusion in the visualized lung bases. Status post abdominoperineal resection with left lower quadrant descending colostomy. A left mid abdominal parastomal hernia is again identified. There are multiple loops of dilated proximal small bowel measuring up to 7 cm maximally. There is a transition point as small bowel enters the parastomal hernia. Loops of bowel within the hernia sac are mildly dilated. The loop of small bowel reentering the peritoneal cavity is decompressed, and all loops of small bowel distal to this are decompressed. There is a second hernia to the right of midline in the mid abdomen with defect in the fascia measuring 7 cm. This is unchanged. This hernia contains multiple loops of small bowel however they are not dilated. It also contains a knuckle of the proximal small bowel that is proximal to the level of the parastomal hernia (series 7 image 74). This appearance is unchanged from prior. There is no pneumatosis or portal venous gas to suggest bowel ischemia. No free intraperitoneal air. No free intraperitoneal fluid. Plaque-like soft tissue in the presacral space with tubular fluid density within it is unchanged dating back to 12/30/2016 and likely represents sequela of prior surgery and radiation with fibrosis Liver is normal in size and contour. Normal gallbladder. No biliary duct dilatation. There is mild bilateral caliectasis and minimal ureteral dilatation. The bladder is markedly distended. No focal renal lesions. Unremarkable Pancreas, spleen, and adrenal glands The prostate is surgically absent. Atheromatous aorta is nonaneurysmal. No pathologically enlarged abdominal or pelvic lymph nodes. No lytic or sclerotic osseous lesion. Procedure Note Dana Healy MD - 10/27/2017 EXAMINATION: CT ABDOMEN AND PELVIS WO CONTRAST CLINICAL HISTORY: hx of rectal cancer, with left sided ostomy. had recentSBO, now presenting w/vomiting and hypotension TECHNIQUE: Helical CT of the abdomen and pelvis was performed without theuse of intravenous contrast. Multiplanar reformatted images were generated. COMPARISON: 08/24/2017, 02/14/2015 FINDINGS: No nodules, masses, or pleural effusion in the visualized lung bases. Status post abdominoperineal resection with left lower quadrantdescending colostomy. A left mid abdominal parastomal hernia is again identified. There are multiple loops of dilated proximal small bowel measuring up to 7cm maximally. There is a transition point as small bowel enters theparastomal hernia. Loops of bowel within the hernia sac are mildly dilated. The loopof small bowel reentering the peritoneal cavity is decompressed, and allloops of small bowel distal to this are decompressed. There is a second hernia to the right of midline in the mid abdomen withdefect in the fascia measuring 7 cm. This is unchanged. This hernia containsmultiple loops of small bowel however they are not dilated. It also contains aknuckle of the proximal small bowel that is proximal to the level of the parastomalhernia (series 7 image 74). This appearance is unchanged from prior. There isno pneumatosis or portal venous gas to suggest bowel ischemia. No free intraperitoneal air. No free intraperitoneal fluid. Plaque-like soft tissue in the presacral space with tubular fluid densitywithin it is unchanged dating back to 12/30/2016 and likely represents sequela ofprior surgery and radiation with fibrosis Liver is normal in size and contour. Normal gallbladder. No biliary duct dilatation. There is mild bilateral caliectasis and minimal ureteral dilatation. Thebladder is markedly distended. No focal renal lesions. Unremarkable Pancreas,spleen, and adrenal glands The prostate is surgically absent. Atheromatous aorta is nonaneurysmal. No pathologically enlarged abdominalor pelvic lymph nodes. No lytic or sclerotic osseous lesion. IMPRESSION 1. Status post abdominoperineal resection with a descending colostomy inthe left lower quadrant. A parastomal hernia containing loops of small bowelhas been present since July 2017, however it is now causing a partialsmall bowel obstruction with dilatation of proximal loops of small bowel up to 7cm in transverse dimension. 2. No CT evidence of perforation. 3. A right para midline ventral hernia containing nondilated loops ofsmall bowel. This is stable in appearance. 4. Stable soft tissue in the presacral space likely post treatmentfibrosis. 5. New mild dilatation of both renal collecting systems and ureters islikely secondary to the severely distended urinary bladder. I have personally reviewed the image(s) and the residents interpretationand agree with the findings, Dana Healy at 10/27/2017 1:22 PM Swetha Price MD IMG CT ORDERABLES * (ABNORMAL) Urinalysis Microscopic Exam (10/27/2017 10:16 AM EST) RBC, Urine 1 0 - 3 /HPF [facility] WBC, Urine 6(H) 0 - 3 /HPF [facility] Bacteria, Urine Rare(A) None /HPF [facility] Squamous Epithelial Cells Raw Data, Urine 1 <=4 /HPF [facility] Transitional Epithelial Cells, Urine <1 <=1 /HPF [facility] Renal Epithelial Cells, Urine <1(H) <=0 /HPF [facility] Hyaline Casts, Urine 1 0 - 2 /LPF [facility] Urine specimen obtained by clean catch procedure (specimen) 10/27/2017 10:16 AM EST 10/27/2017 10:32 AM EST Narrative Resulting Agency Comment Spec In Lab Swetha Price MD URINE ORDERABLES Performing Organization Address City/State/[facility] Co de Phone Number [facility] [place] [address] * (ABNORMAL) Urinalysis with reflex Culture (10/27/2017 10:16 AM EST) Glucose, Urine Dipstick 50(A) Negative mg/dL [facility] Protein, Urine Dipstick Negative Negative mg/dL [facility] Bilirubin, Urine Dipstick Negative Negative mg/dL [facility] Comment: Clinical correlation required for positive Urine Bilirubin results as false positive may occur with some drugs and drug related products. If a false positive is suspected a serum total bilirubin should be considered if clinically indicated. Urobilinogen, Urine Dipstick Normal Normal mg/dL [facility] pH, Urn (dipstick) 6.0 5.0 - 8.0 [facility] Blood, Urine Dipstick Small(A) Negative mg/dL [facility] Ketone, Urine Dipstick 20(A) Negative mg/dL [facility] Nitrite, Urine Dipstick Negative Negative [facility] Leukocytes, Urine Dipstick Small(A) Negative [facility] Appearance, Urine Dipstick Clear Clear [facility] Specific [place] Urine Automated 1.005 1.002 - 1.030 [facility] Color, Urine Dipstick Straw Yellow [facility] Reflex to Culture No [facility] Urine specimen obtained by clean catch procedure (specimen) 10/27/2017 10:16 AM EST 10/27/2017 10:32 AM EST Narrative Resulting Agency Comment Spec In Lab Swetha Price MD URINE ORDERABLES Performing Organization Address [facility] Co de Phone Number [facility] [place] [address] * L-Lactate2 Whole Blood (10/27/2017 7:41 AM EST) Pathologist [facility] Lactate WB 1.1 0.5 - 2.2 mmol/L [facility] Blood specimen (specimen) 10/27/2017 7:41 AM EST 10/27/2017 7:41 AM EST Swetha Price MD CHEMISTRY ORDERABLES Performing Organization Address [facility] Co hi Phone Number [facility] [place] [address] * Hepatic Function Panel (10/27/2017 7:20 AM EST) Protein, Total 6.7 6.1 - 8.0 gm/dL [facility] Albumin 3.6 3.2 - 5.2 gm/dL [facility] Aspartate Aminotransferase 18 0 - 39 unit/L [facility] Alanine Aminotransferase 24 0 - 55 unit/L [facility] Alkaline Phosphatase 81 40 - 120 unit/L [facility] Bilirubin, Total 0.7 0.2 - 1.3 mg/dL [facility] Bilirubin, Direct 0.2 0.0 - 0.3 mg/dL [facility] Blood specimen (specimen) Venous Draw / Unknown 10/27/2017 7:20 AM EST 10/27/2017 7:32 AM EST Narrative Resulting Agency Comment Spec In Lab Swetha Price MD CHEMISTRY ORDERABLES Performing Organization Address City/[facility]/ZIP Co de Phone Number [facility] [place] [address] * Lipase (10/27/2017 7:20 AM EST) Pathologist [facility] Lipase 27 0 - 60 unit/L [facility] Blood specimen (specimen) Venous Draw / Unknown 10/27/2017 7:20 AM EST 10/27/2017 7:32 AM EST Narrative Resulting Agency Comment Spec In Lab Swetha Price MD CHEMISTRY ORDERABLES Performing Organization Address City/[facility]/ZIP Co de Phone Number [facility] [place] [address] * Blue Tube HOLD (10/27/2017 7:20 AM EST) Pathologist [facility] Blue Hold Sample in lab. [facility] Blood specimen (specimen) Venous Draw / Unknown 10/27/2017 7:20 AM EST 10/27/2017 7:34 AM EST Swetha Price MD HEMATOLOGY ORDERABLE S Performing Organization Address City/[facility]/ZIP Co de Phone Number [facility] [place] [address] * (ABNORMAL) Differential, Automated (10/27/2017 7:20 AM EST) Pathologist [facility] Neutrophil % 82.2 % [facility] Neutrophil Absolute 13.12(H) 1.70 - 6.10 x10(3)/mc L [facility] Lymph % 8.0 % [facility] Lymphocytes Abs 1.3 0.9 - 3.2 x10(3)/mc L [facility] Monocyte % 8.9 % [facility] Monocyte Abs 1.4(H) 0.3 - 0.9 x10(3)/[facility] Eos % 0.1 % [facility] Eosinophils Abs 0.0 0.0 - 0.4 x10(3)/[facility] Basophil % 0.2 % [facility] Baso Absolute 0.0 0.0 - 0.1 x10(3)/[facility] Immature Gran % 0.60 % [facility] Comment: Immature granulocytes(IG's)percentage and absolute count will include metamyelocytes, myelocytes, and promyelocytes. Blood smears from CBCs yielding IG's will be scanned manually for concordance. If this scan disagrees with the automated IG or if promyelocytes are noted, a manual differential will be performed. Immature Gran Absolute 0.10(H) 0.00 - 0.04 x10(3)/[facility] Blood specimen (specimen) 10/27/2017 7:20 AM EST 10/27/2017 7:32 AM EST Narrative Resulting Agency Comment Spec In Lab Swetha Price MD HEMATOLOGY ORDERABLE S Performing Organization Address City/State/[facility] Co de Phone Number [facility] [place] [address] * (ABNORMAL) Hemogram (10/27/2017 7:20 AM EST) White Blood Cell 16.0(H) 4.0 - 9.5 x10(3)/[facility] Red Blood Cell 4.49(L) 4.58 - 5.54 x10(6)/[facility] Hemoglobin 13.6(L) 13.7 - 16.5 gm/dL [facility] Hematocrit 39.2(L) 40.5 - 48.5 % [facility] Mean Cell Volume 87.3 82.9 - 93.1 fL [facility] Mean Cell Hemoglobin 30.3 27.5 - 32.1 pg [facility] Mean Cell Hemoglobin Concentration 34.7 32.0 - 35.7 gm/dL [facility] Platelet 248 145 - 357 x10(3)/mc L [facility] RDW Standard Deviation 42.9 36.0 - 45.0 fL [facility] RDW coefficient of variation 13.4 11.4 - 13.8 % [facility] Mean Platelet Volume 10.5 7.6 - 12.9 fL [facility] NRBC% auto 0.0 % [facility] NRBC Absolute 0.000 0.000 - 0.000 x10(3)/mc L [facility] Blood specimen (specimen) 10/27/2017 7:20 AM EST 10/27/2017 7:32 AM EST Narrative Resulting Agency Comment Spec In Lab Swetha Price MD HEMATOLOGY ORDERABLE S [facility] [place] [id number] * (ABNORMAL) Basic Metabolic Panel (non-fasting) (10/27/2017 7:20 AM EST) Glucose 212(H) 65 - 199 mg/dL [facility] Comment:Diabetes: >=200 mg/d L plus symptoms Blood Urea Nitrogen 109(H) 10 - 20 mg/dL [facility] Creatinine 3.33(H) 0.80 - 1.50 mg/dL [facility] Sodium 125(L) 135 - 145 mmol/L [facility] Potassium 4.9 3.5 - 5.0 mmol/L [facility] Comment: Please note: ??Patients with WBC >100,000 may have falsely elevated Potassium levels. ??For accurate Potassium quantification in these patients send serum separator tube (gold top) for subsequent determinations. ??Contact the Clinical Chemistry Laboratory if there are any questions. Chloride 80(L) 98 - 107 mmol/L [facility] Carbon Dioxide 25 22 - 31 mmol/L [facility] Anion Gap 20(H) 5 - 15 mmol/L [facility] Calcium 7.9(L) 8.5 - 10.5 mg/dL [facility] Est Glomerular Filtration Rate 19(L) >=60 [facility] Comment: The reported eGFR should be multiplied by 1.2 for patients. The MDRD is not an appropriate measure of renal function for patients with body mass extremes or in patients with acute kidney failure. http://Lucidux/DHnkdep http://Lucidux/DHMCnkf Blood specimen (specimen) 10/27/2017 7:20 AM EST 10/27/2017 7:32 AM EST Narrative Resulting Agency Comment Spec In Lab Swetha Price MD CHEMISTRY ORDERABLES [facility] [place] [place] [address] * POCT urine dipstick (10/27/2017) POC Sp [place] 1.015 1.002 - 1.030 POC pH, UA 5 5.0 - 8.5 POC Leuk, UA neg Negative - Negative POC Nitrite, UA neg Negative - Negative POC Protein, UA trace Negative - Negative mg/dL POC Glucose, UA 50 Normal - Normal mg/dL POC Ketone, UA neg Negative - Negative POC Urobil, UA normal 0.2 - 1.0 mg/dL POC Bili, UA neg Negative - Negative POC Blood, UA neg Negative - Negative epifanio/uL 10/27/2017 Swetha Price MD POINT OF CARE TEST O RDERABLES documented in this encounter Visit Diagnoses Diagnosis SBO (small bowel obstruction)- Primary Unspecified intestinal obstruction SBO (small bowel obstruction) Unspecified intestinal obstruction Hypertension, unspecified type Rectal cancer Malignant neoplasm of rectum Acute deep vein thrombosis (DVT) of other specified vein of right lower extremity Obesity (BMI 35.0-39.9 without comorbidity) Obesity, unspecified 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 status Diabetes mellitus Type II or unspecified type diabetes mellitus without mention of complication, not stated as uncontrolled Hypertension Unspecified essential hypertension Neurogenic bladder Neurogenic bladder, NOS Acute kidney injury Acute kidney failure, unspecified documented in this encounter Admitting Diagnoses Diagnosis SBO (small bowel obstruction) Unspecified intestinal obstruction documented in this encounter Administered Medications Inactive Administered Medications - up to 3 most recent administrations Medication Order MAR Action Action Date Dose Rate Site acetaminophen (OFIRMEV) injection 1,000 mg 1,000 mg, Intravenous, at 400 mL/hr, Administer over 15 Minutes, EVERY 8 HOURS SCHEDULED, 3 doses, First dose on Thu10/30/17 at 1400, Last dose on Thu10/31/17 at 0600, Maximum dose of acetaminophen is 4000 mg from all sources in 24 hours., Routine, Is ketorolac (Toradol) IV contraindicated? No, Can this patient tolerate oral medications or suppositories? No Given 10/31/2017 5:40 AM EST 1,000 mg 400 mL/hr Given 10/30/2017 9:55 PM EST 1,000 mg 400 mL/hr Given 10/30/2017 3:07 PM EST 1,000 mg 400 mL/hr acetaminophen (TYLENOL) tablet 975 mg 975 mg, Oral, EVERY 6 HOURS SCHEDULED, First dose on Thu10/31/17 at 0845, Until Discontinued, Maximum dose of acetaminophen is 4000 mg from all sources in 24 hours., Routine Given 11/05/2017 6:00 AM EST 975 mg Given 11/05/2017 12:33 AM EST 975 mg Given 11/04/2017 6:12 PM EST 975 mg apixaban (ELIQUIS) tablet Tab 10 mg 10 mg, Oral, 2 TIMES DAILY, First dose on Thu11/04/17 at 1245, Until Discontinued, Anticoagulant, Routine, Restricted anticoagulant, choose the most appropriate response: Appoved indication of DVT and/or PE Given 11/05/2017 8:0 9 AM EST 10 mg Given 11/04/2017 8:19 PM EST 10 mg Given 11/04/2017 12:40 PM EST 10 mg atorvastatin (LIPITOR) tablet 20 mg 20 mg, Oral, DAILY, First dose on Thu11/03/17 at 0945, Until Discontinued, Routine Given 11/05/2017 8:09 AM EST 20 mg Given 11/04/2017 8:14 AM EST 20 mg Given 11/03/2017 11:57 AM EST 20 mg calcium gluconate 1g in sodium chloride 0.9% 100mL 1 g, Intravenous, ONCE, 1 dose, On Thu10/28/17 at 0715, Administer over 60 Minutes, Warning Vesicant/Irritant Medication New Bag 10/28/2017 8:44 AM EST 1 g 100 mL/hr dextrose 50% IV syringe 25-50 mL 25-50 mL (12.5-25 g), Intravenous, EVERY 1 HOUR PRN, Starting on Thu10/27/17 at 1555, Until Radha 11/05/17 at 1654, Low blood sugar, For BG 50-70: 120 mL Juice or Regular (not diet) soda OR 12.5 gram (25 mL) Dextrose 50% IV OR, if no IV access, 1 mg Glucagon IM. Recheck BG in 30 minutes. May repeat juice, dextrose or glucagon once per episode For BG less than 50: 240 mL Juice or Regular (not diet) soda OR 25 grams (50 mL) Dextrose 50% IV OR, if no IV access, 1 mg Glucagon IM. Recheck BG in 30 minutes. May repeat juice, dextrose, or glucagon once per episode. To avoid extravasation, push Dextrose 50% SLOWLY (3 mL over 1 minute) in a patent, running IV, preferably a central line. For persistent hypoglycemia, consider longer-acting treatment for the duration of the active insulin., Routine docusate sodium (COLACE) capsule 100 mg 100 mg, Oral, 2 TIMES DAILY, First dose on Thu11/04/17 at 2100, Until Discontinued, Routine Given 11/05/2017 8:09 AM EST 100 mg Given 11/04/2017 8:19 PM EST 100 mg enoxaparin (LOVENOX) injection 40 mg 40 mg, Subcutaneous, NIGHTLY, First dose on 10/31/17 at 2100, Until Discontinued, Routine Given 11/02/2017 8:39 PM EST 40 mg Given 11/01/2017 8:15 PM EST 40 mg Given 10/31/2017 8:35 PM EST 40 mg fentaNYL 2 mcg/mL, BUpivacaine (MARCAINE) 0.0625% (0.625 mg/mL)(/16%) in sodium chloride 0.9% 250 mL epidural Epidural, Patient Controlled Epidural Analgesia (PCEA): 3 mL, PCEA Frequency: Every 20 minutes, Maximum rate for continuous infusion 14 mL per hour Maximum total epidural rate (continuous and PCEA bolus) is 25 mL per hour, Recovery (Recovery-Hospital Unit) Rate/Dose Change 11/02/2017 12:35 PM EST 3 mL/hr 3 mL/hr New Bag 11/01/2017 5:44 PM EST 6 mL/hr 6 mL/hr New Bag 10/31/2017 6:53 PM EST 6 mL/hr 6 mL/hr fentaNYL 50mcg/mL injection 12.5-25 mcg, Intravenous, EVERY 1 MIN PRN, Starting on Radha 10/29/17 at 0923, Until Radha 10/29/17 at 1932, Pain, for epidural placement only, Routine Given 10/29/2017 9:03 AM EST 50 mcg glucagon (human recombinant) injection SolR 1 mg 1 mg, Intramuscular, EVERY 1 HOUR PRN, Starting on Thu10/27/17 at 1555, Until Radha 11/05/17 at 1654, Low blood sugar, For BG 50-70: 120 mL Juice or Regular (not diet) soda OR 12.5 gram (25 mL) Dextrose 50% IV OR, if no IV access, 1 mg Glucagon IM. Recheck BG in 30 minutes. May repeat juice, dextrose or glucagon once per episode For BG less than 50: 240 mL Juice or Regular (not diet) soda OR 25 grams (50 mL) Dextrose 50% IV OR, if no IV access, 1 mg Glucagon IM. Recheck BG in 30 minutes. May repeat juice, dextrose, or glucagon once per episode. To avoid extravasation, push Dextrose 50% SLOWLY (3 mL over 1 minute) in a patent, running IV, preferably a central line. For persistent hypoglycemia, consider longer-acting treatment for the duration of the active insulin., Routine heparin (porcine) injection 0-8,000 Units 0-8,000 Units, Intravenous, BOLUS PER HEPARIN PROTOCOL, Starting on Thu11/03/17 at 1202, Until Thu11/04/17 at 1215, Per Protocol, START ADJUSTMENT SCHEDULE 6 HOURS AFTER STARTING INFUSION aPTT Between 60 - 79 seconds: Bolus 3,150 units aPTT Less than 60 seconds: Bolus 6,300 units Increase infusion and recheck aPTT in 6 hours. , Routine Given 11/04/2017 3:34 AM EST 3,150 Units Given 11/03/2017 12:36 PM EST 6.3 Units heparin (porcine) injection 6,300 Units 6,300 Units (rounded from 6,286 Units = 70 Units/kg ? 89.8 kg), Intravenous, ONCE, 1 dose, On Thu11/03/17 at 1230, INITIAL LOADING DOSE Maximum loading dose 8,000 units, Routine Given 11/03/2017 12:39 PM EST 6,300 Units heparin (Porcine) subcutaneous injection 5,000 Units 5,000 Units, Subcutaneous, 2 TIMES DAILY, First dose on Thu10/27/17 at 2100, Until Discontinued, Routine Given 10/30/2017 8:03 PM EST 5,000 Unit s Given 10/30/2017 8:37 AM EST 5,000 Units Given 10/29/2017 9:16 PM EST 5,000 Units heparin 25,000 units in dextrose 5% 500 mL infusion 0-5,000 Units/hr (0-100 mL/hr), Intravenous, CONTINUOUS, Starting on Thu11/03/17 at 1230, Until Thu11/04/17 at 1215, Begin infusion at 1,350 units per hr (15 units/kg/hr). MAX INITIAL infusion rate is 1,750 units/hr Target aPTT = 80 - 114 seconds Start adjustment schedule 6 hours after starting infusion. If aPTT is: - Less than 60 seconds, administer PRN bolus and increase rate by 350 units per hr (4 units/kg/hr) - 60-79 seconds, administer PRN bolus AND increase rate by 200 units per hr (2 units/kg/hr) - 80-114 seconds, no change - 115-129 seconds, decrease rate by 100 units per hr (1 unit/kg/hr) - 130-145 seconds, stop infusion for 30 minutes then decrease rate by 200 units per hr (2 units/kg/hr) - Greater than 145 seconds, stop infusion for 60 minutes then decrease rate by 250 units per hour (3 units/kg/hr) Repeat aPTT 6 hours after initiating heparin. Then 6 hours after each dose adjustment. When 2 consecutive aPTT within target range of 80 - 114 seconds, change aPTT to once every 24 hours with A.M. labs while on heparin. RN to order required aPTT - Per Protocol, Routine, Indication: Deep Venous Thrombosis New Bag 11/04/2017 7:48 AM EST 1,300 Units/hr 26 mL/hr Rate/Dose Change 11/04/2017 3:38 AM EST 1,300 Units/hr 26 mL/hr Restarted 11/03/2017 8:37 PM EST 1,100 Units/hr 22 mL/hr HYDROmorphone (DILAUDID) injection 0.5 mg 0.5 mg, Intravenous, EVERY 4 HOURS PRN, Starting on Thu10/27/17 at 1555, Until Radha 11/05/17 at 1654, Pain, STAT Given 10/31/2017 1:18 PM EST 0.5 mg Given 10/31/2017 6:54 AM EST 0.5 mg Given 10/30/2017 10:45 PM EST 0.5 mg HYDROmorphone (DILAUDID) injection 0.5 mg 0.5 mg, Epidural, ONCE, 1 dose, On Thu10/29/17 at 0945, Routine Given 10/29/2017 9:15 AM EST 0.5 mg ibuprofen (ADVIL;MOTRIN) tablet 600 mg 600 mg, Oral, EVERY 6 HOURS, First dose (after last reorder) on 11/02/17 at 1300, Until Discontinued, Administer orally with milk or food to minimize GI irritation. Maximum dose of 3200 mg from all sources in 24 hours, Routine Given 11/05/2017 8:09 AM EST 600 mg Given 11/05/2017 1:40 AM EST 600 mg Given 11/04/2017 8:19 PM EST 600 mg insulin lispro (humaLOG) VIAL injection 1-4 Units 1-4 Units, Subcutaneous, EVERY 4 HOURS, First dose (after last modification) on Radha 10/29/17 at 0415, Until Discontinued, CORRECTION BOLUS Sensitive to insulin lean patient or total daily dose of all insulin needed to achieve glycemic control less than 30 units BG 140 - 160 Give 1 unit BG 161 - 200 Give 2 units BG 201 - 240 Give 3 units BG greater than 240, give 4 units and recheck BG in 2 hours. If less than 240 after two hours, give no insulin and resume prior schedule. If BG remains greater than 240, repeat 4 units (no more than three times) & call for new basal insulin orders. DO NOT hold if NPO, unless specifically told to do so., Routine Given 11/05/2017 4:12 AM EST 1 Units Given 11/04/2017 4:26 PM EST 3 Units Given 11/04/2017 12:33 PM EST 2 Units insulin lispro (humaLOG) VIAL injection 6 Units 6 Units, Subcutaneous, ONCE, 1 dose, On Radha 10/29/17 at 1630, Please recheck glucose in 2hrs., PACU Recovery, Routine Given 10/29/2017 4:14 PM EST 6 Units lactated Ringers 1,000 mL IV bolus Intravenous, ONCE, 1 dose, On Thu10/27/17 at 1830 New Bag 10/27/2017 6:10 PM EST lactated Ringers 500 mL IV bolus at 500 mL/hr, Intravenous, ONCE, 1 dose, On Thu11/03/17 at 0515 New Bag 11/03/2017 5:27 AM EST 500 mL/hr lactated Ringers infusion 100 mL/hr, Intravenous, CONTINUOUS, Starting on Thu10/28/17 at 0630, Until Thu10/28/17 at 0852 New Bag 10/28/2017 6:30 AM EST 100 mL/hr 100 mL/hr lactated Ringers infusion 100 mL/hr, Intravenous, CONTINUOUS, Starting on Thu10/28/17 at 1415, Until Thu10/28/17 at 1753 Continued Bag 10/28/2017 2:15 PM EST 100 mL/hr 100 mL/hr lidocaine (XYLOCAINE) 2 % viscous solution 15 mL 15 mL, Mucous Membrane, ONCE, 1 dose, On Thu10/27/17 at 1406, Into nare for NG placement, STAT Given 10/27/2017 2:24 PM EST 15 mLs lidocaine (XYLOCAINE) 2 % viscous solution 15 mL 15 mL, Mucous Membrane, EVERY 4 HOURS PRN, Starting on Thu10/30/17 at 1409, Until Thu11/05/17 at 1654, throat discomfort, Routine lisinopril (PRINIVIL;ZESTRIL) tablet 10 mg 10 mg, Oral, 2 TIMES DAILY, First dose on Thu11/03/17 at 0945, Until Discontinued, Routine Given 11/05/2017 8:10 AM EST 10 mg Given 11/04/2017 8:18 PM EST 10 mg Given 11/04/2017 8:13 AM EST 10 mg magnesium sulfate 1g in dextrose 5% 100mL 1 g, Intravenous, ONCE, 1 dose, On Thu10/27/17 at 1900, Administer over 60 Minutes New Bag 10/27/2017 6:42 PM EST 1 g 100 mL/hr magnesium sulfate 1g in dextrose 5% 100mL 1 g, Intravenous, ONCE, 1 dose, On Thu10/28/17 at 0715, Administer over 60 Minutes New Bag 10/28/2017 8:45 AM EST 1 g 100 mL/hr magnesium sulfate 1g in dextrose 5% 100mL 1 g, Intravenous, ONCE, 1 dose, On Thu10/29/17 at 0415, Administer over 60 Minutes New Bag 10/29/2017 4:18 AM EST 1 g 100 mL/hr midazolam (PF) (VERSED) 1 mg/mL injection 1-2 mg 1-2 mg, Intravenous, EVERY 1 MIN PRN, Starting on Thu10/29/17 at 0923, Until Thu10/29/17 at 1932, Sleep, for epidural placement only, Routine Given 10/29/2017 9:05 AM EST 1 mg Given 10/29/2017 8:55 AM EST 1 mg Given 10/29/2017 8:45 AM EST 1 mg nalbuphine (NUBAIN) injection 2 mg 2 mg, Intravenous, EVERY 4 HOURS PRN, Itching, Starting on Thu10/29/17 at 0925, Until 11/02/17 at 1549, If not effective, may repeat once after 30 minutes with each 4 hour dosing interval. For itching caused by hydromorphone or fentanyl use nalbuphine first. For itching caused by morphine use diphenhydramine first. Given 10/30/2017 4:53 AM EST 2 mg ondansetron (ZOFRAN) injection 4 mg 4 mg, Intravenous, ONCE, 1 dose, On Thu10/27/17 at 0829, STAT Given 10/27/2017 9:07 AM EST 4 mg ondansetron (ZOFRAN) injection 4 mg 4 mg, Intravenous, EVERY 8 HOURS PRN, Starting on Thu10/27/17 at 1429, Until Radha 11/05/17 at 1654, Nausea, Vomiting, Routine Given 11/03/2017 2:25 AM EST 4 mg Given 10/27/2017 3:32 PM EST 4 mg oxyCODONE (ROXICODONE) immediate release tablet 10 mg 10 mg, Oral, EVERY 4 HOURS PRN, Starting on Thu11/02/17 at 0848, Until Radha 11/05/17 at 1654, Pain, severe pain (7-10), May give an additional 5 mg in 30 minutes once if pain not relieved. For pain rated 5 or greater on scale 1-10, Routine Given 11/05/2017 10:37 AM EST 10 mg Given 11/05/2017 12:33 AM EST 10 mg Given 11/04/2017 8:19 PM EST 10 mg oxyCODONE (ROXICODONE) immediate release tablet 5 mg 5 mg, Oral, EVERY 4 HOURS PRN, Starting on Thu11/02/17 at 0848, Until Radha 11/05/17 at 1654, Pain, mild to moderate pain (1-6), May give an additional 5 mg in 30 minutes once if pain not relieved., For pain rated 2-4 on scale from 1-10. Please try PO before IV., Routine pantoprazole (PROTONIX) injection 40 mg 40 mg, Intravenous, DAILY, First dose on Thu10/27/17 at 1630, Until Discontinued Given 11/05/2017 8:09 AM EST 40 mg Given 11/04/2017 8:10 AM EST 40 mg Given 11/03/2017 8:37 AM EST 40 mg phenol 1.4% (CHLORASEPTIC) spray 2 spray 2 spray, Oral, EVERY 2 HOURS PRN, Starting on Thu10/30/17 at 1750, Until Thu11/05/17 at 1654, Irritation, Routine Given 10/31/2017 1:18 PM EST 2 sprays Given 10/31/2017 12:20 AM EST 2 sprays Given 10/30/2017 8:06 PM EST 2 sprays polyethylene glycol (MIRALAX) packet 17 g 17 g, Oral, DAILY, First dose on Thu11/04/17 at 1600, Until Discontinued, Routine Given 11/05/2017 8:09 AM EST 17 g Given 11/04/2017 4:26 PM EST 17 g potassium phosphate 10 mMol in sodium chloride 0.9% 100 mL 10 mmol, Intravenous, ONCE, 1 dose, On Thu10/28/17 at 0800, Administer over 4 Hours, Administer over 4-6 hours New Bag 10/28/2017 8:54 AM EST 10 mmol sodium chloride 0.9 % flush 5 mL 5 mL, Intravenous, 2 TIMES DAILY, First dose on Thu10/27/17 at 2100, Until Discontinued, Routine Given 11/05/2017 8:13 AM EST 5 mLs Given 11/04/2017 8:28 PM EST 5 mLs Given 11/04/2017 8:15 AM EST 5 mLs sodium chloride 0.9% 2,000 mL IV bolus at 1,000 mL/hr, Intravenous, ONCE, 1 dose, On Thu10/27/17 at 0722 New 10/27/2017 7:22 AM EST 1000 mL/hr sodium chloride 0.9% infusion 125 mL/hr, Intravenous, CONTINUOUS, Starting on Thu10/27/17 at 1430, Until Thu10/28/17 at 0606 New 10/28/2017 3:56 AM EST 125 mL/hr 125 mL/hr New 10/27/2017 3:32 PM EST 125 mL/hr 125 mL/hr TPN Adult Central, Intravenous, at 100 mL/hr, CONTINUOUS, Starting on Thu10/28/17 at 1800, Until Thu10/29/17 at 1759, Administer over 24 Hours Rate/Dose Change 10/29/2017 9:23 AM EST 100 mL/hr 100 mL/hr New 10/28/2017 6:07 PM EST 100 mL/hr TPN Adult Central, Intravenous, at 100 mL/hr, CONTINUOUS, Starting on Thu10/29/17 at 1800, Until Thu10/30/17 at 1759, Administer over 24 Hours New 10/29/2017 7:55 PM EST 100 mL /hr TPN Adult Central, Intravenous, at 100 mL/hr, CONTINUOUS, Starting on Thu10/30/17 at 1800, Until Thu11/02/17 at 1759, Administer over 24 Hours New 10/31/2017 5:40 PM EST 100 mL /hr New 10/30/2017 5:32 PM EST 100 mL/hr documented in this encounter Active and Recently Administered Medications Times are shown in EST. Scheduled Medication Order 11/03/2017 11/04/2017 11/05/2017 acetaminophen (TYLENOL) tablet 975 mg 975 mg, Oral, EVERY 6 HOURS SCHEDULED, First dose on Thu10/31/17 at 0845, Until Discontinued, Maximum dose of acetaminophen is 4000 mg from all sources in 24 hours., Routine 0633 (Given - Provider: Riley Gonzales RN)1157 (Given - Provider: Renetta Porter RN)1717 (Given - Provider: Courtney Mcleod, GET) 0032 (Given - Provider: Cherri Marie RN)0609 (Given - Provider: Cherri Marie RN)1124 (Given - Provider: June Leroy RN)1812 (Given - Provider: June Leroy RN) 0033 (Given - Provider: Mariel Fitzgerald RN)0600 (Given - Provider: Mariel Fitzgerald RN)1200 (Not Given - Provider: Courtney Mcleod RN - Reason: Patient/family refused) apixaban (ELIQUIS) tablet Tab 10 mg 10 mg, Oral, 2 TIMES DAILY, First dose on Thu11/04/17 at 1245, Until Discontinued, Anticoagulant, Routine, Restricted anticoagulant, choose the most appropriate response: Appoved indication of DVT and/or PE 1240 (Given - Provider: June Leroy RN)2019 (Given - Provider: Mariel Fitzgerald RN) 0809 (Given - Provider: Courtney Mcleod RN) atorvastatin (LIPITOR) tablet 20 mg 20 mg, Oral, DAILY, First dose on Thu11/03/17 at 0945, Until Discontinued, Routine 1157 (Given - Provider: Renetta Porter RN) 0814 (Given - Provider: June Leroy RN) 0809 (Given - Provider: Courtney Mcleod, GET) docusate sodium (COLACE) capsule 100 mg 100 mg, Oral, 2 TIMES DAILY, First dose on Thu11/04/17 at 2100, Until Discontinued, Routine 2019 (Given - Provider: Mariel Fitzgerald RN) 0809 (Given - Provider: Courtney Mcleod RN) heparin (porcine) injection 6,300 Units (COMPLETED) 6,300 Units (rounded from 6,286 Units = 70 Units/kg ? 89.8 kg), Intravenous, ONCE, 1 dose, On Thu11/03/17 at 1230, INITIAL LOADING DOSE Maximum loading dose 8,000 units, Routine 1239 (Given - Provider: Renetta Porter RN) ibuprofen (ADVIL;MOTRIN) tablet 600 mg 600 mg, Oral, EVERY 6 HOURS, First dose (after last reorder) on Thu11/02/17 at 1300, Until Discontinued, Administer orally with milk or food to minimize GI irritation. Maximum dose of 3200 mg from all sources in 24 hours, Routine 0039 (Given - Provider: Riley Gonzales RN)0633 (Given - Provider: Riley Gonzales RN)1240 (Given - Provider: Renetta Porter RN)2018 (Given - Provider: Junie Gloria RN) 0232 (Given - Provider: Cherri Marie RN)0814 (Given - Provider: June Leroy RN)1502 (Given - Provider: June Leroy RN)2019 (Given - Provider: Mariel Fitzgerald RN) 0140 (Given - Provider: Mariel Fitzgerald RN)0809 (Given - Provider: Courtney Mcleod RN)1400 (Due - Provider: Mark Bales [facility]) insulin lispro (humaLOG) VIAL injection 1-4 Units(Linked Group 1) 1-4 Units, Subcutaneous, EVERY 4 HOURS, First dose (after last modification) on Thu10/29/17 at 0415, Until Discontinued, CORRECTION BOLUS Sensitive to insulin lean patient or total daily dose of all insulin needed to achieve glycemic control less than 30 units BG 140 - 160 Give 1 unit BG 161 - 200 Give 2 units BG 201 - 240 Give 3 units BG greater than 240, give 4 units and recheck BG in 2 hours. If less than 240 after two hours, give no insulin and resume prior schedule. If BG remains greater than 240, repeat 4 units (no more than three times) & call for new basal insulin orders. DO NOT hold if NPO, unless specifically told to do so., Routine 0431 (Given - Provider: Riley Gonzales RN)0815 (Not Given - Provider: Renetta Porter RN - Reason: Order parameters not met)1158 (Given - Provider: Renetta Porter RN)1615 (Not Given - Provider: Renetta Porter RN - Reason: Order parameters not met)2017 (Given - Provider: Junie Gloria RN) 0032 (Given - Provider: Cherri Marie RN)0349 (Not Given - Provider: Cherri Marie RN - Reason: Order parameters not met)0814 (Given - Provider: June Leroy RN)1233 (Given - Provider: June Leroy RN)1626 (Given - Provider: June Leroy RN)2014 (Not Given - Provider: Mariel Fitzgerald RN - Reason: Order parameters not met - Comment: BG 128) 0015 (Not Given - Provider: Mariel Fitzgerald RN - Reason: Order parameters not met - Comment: BG 129)0412 (Given - Provider: Mariel Fitzgerald RN - Comment: BG 150)0815 (Not Given - Provider: Courtney Mcleod RN - Reason: Order parameters not met)1215 (Not Given - Provider: Courtney Mcleod RN - Reason: Order parameters not met) lactated Ringers 500 mL IV bolus (COMPLETED) at 500 mL/hr, Intravenous, ONCE, 1 dose, On Thu11/03/17 at 0515 0527 (New Bag - Provider: Riley Gonzales RN)0627 (Stopped - Provider: Riley Gonzales RN) lisinopril (PRINIVIL;ZESTRIL) tablet 10 mg 10 mg, Oral, 2 TIMES DAILY, First dose on Thu11/03/17 at 0945, Until Discontinued, Routine 1157 (Given - Provider: Renetta Porter RN)2018 (Given - Provider: Junie Gloria RN) 0813 (Given - Provider: June Leroy RN)2018 (Given - Provider: Mariel Fitzgerald RN) 0810 (Given - Provider: Courtney Mcleod RN) pantoprazole (PROTONIX) injection 40 mg 40 mg, Intravenous, DAILY, First dose on Thu10/27/17 at 1630, Until Discontinued 0837 (Given - Provider: Renetta Porter RN) 0810 (Given - Provider: June Leroy, GET) 0809 (Given - Provider: Courtney Mcleod, GET) polyethylene glycol (MIRALAX) packet 17 g 17 g, Oral, DAILY, First dose on Thu11/04/17 at 1600, Until Discontinued, Routine 1626 (Given - Provider: June Leroy RN) 0809 (Given - Provider: Courtney Mcleod RN) sodium chloride 0.9 % flush 5 mL 5 mL, Intravenous, 2 TIMES DAILY, First dose on Thu10/27/17 at 2100, Until Discontinued, Routine 0837 (Given - Provider: Renetta Porter RN)2021 (Given - Provider: Junie Gloria RN) 0815 (Given - Provider: June Leroy RN)2027 (Given - Provider: Mariel Fitzgerald RN) 0813 (Given - Provider: Courtney Mcleod RN) Continuous Medication Order 11/03/2017 11/04/2017 11/05/2017 heparin 25,000 units in dextrose 5% 500 mL infusion (CANCELED)(Linked Group 2) 0-5,000 Units/hr (0-100 mL/hr), Intravenous, CONTINUOUS, Starting on Thu11/03/17 at 1230, Until Thu11/04/17 at 1215, Begin infusion at 1,350 units per hr (15 units/kg/hr). MAX INITIAL infusion rate is 1,750 units/hr Target aPTT = 80 - 114 seconds Start adjustment schedule 6 hours after starting infusion. If aPTT is: - Less than 60 seconds, administer PRN bolus and increase rate by 350 units per hr (4 units/kg/hr) - 60-79 seconds, administer PRN bolus AND increase rate by 200 units per hr (2 units/kg/hr) - 80-114 seconds, no change - 115-129 seconds, decrease rate by 100 units per hr (1 unit/kg/hr) - 130-145 seconds, stop infusion for 30 minutes then decrease rate by 200 units per hr (2 units/kg/hr) - Greater than 145 seconds, stop infusion for 60 minutes then decrease rate by 250 units per hour (3 units/kg/hr) Repeat aPTT 6 hours after initiating heparin. Then 6 hours after each dose adjustment. When 2 consecutive aPTT within target range of 80 - 114 seconds, change aPTT to once every 24 hours with A.M. labs while on heparin. RN to order required aPTT - Per Protocol, Routine, Indication: Deep Venous Thrombosis 1239 (New Bag - Provider: Renetta Porter, RN)1935 (Paused - Provider: Renetta Porter RN)2037 (Restarted - Provider: Junie Gloria RN) 0338 (Rate/Dose Change - Provider: Cherri Marie RN)0748 (New Bag - Provider: June Leroy RN)1245 (Stopped - Provider: June Leroy RN) PRN Medication Order 11/03/2017 11/04/2017 11/05/2017 dextrose 50% IV syringe 25-50 mL(Linked Group 3) 25-50 mL (12.5-25 g), Intravenous, EVERY 1 HOUR PRN, Starting on Thu10/27/17 at 1555, Until Radha 11/05/17 at 1654, Low blood sugar, For BG 50-70: 120 mL Juice or Regular (not diet) soda OR 12.5 gram (25 mL) Dextrose 50% IV OR, if no IV access, 1 mg Glucagon IM. Recheck BG in 30 minutes. May repeat juice, dextrose or glucagon once per episode For BG less than 50: 240 mL Juice or Regular (not diet) soda OR 25 grams (50 mL) Dextrose 50% IV OR, if no IV access, 1 mg Glucagon IM. Recheck BG in 30 minutes. May repeat juice, dextrose, or glucagon once per episode. To avoid extravasation, push Dextrose 50% SLOWLY (3 mL over 1 minute) in a patent, running IV, preferably a central line. For persistent hypoglycemia, consider longer-acting treatment for the duration of the active insulin., Routine glucagon (human recombinant) injection SolR 1 mg(Linked Group 3) 1 mg, Intramuscular, EVERY 1 HOUR PRN, Starting on Thu10/27/17 at 1555, Until Radha 11/05/17 at 1654, Low blood sugar, For BG 50-70: 120 mL Juice or Regular (not diet) soda OR 12.5 gram (25 mL) Dextrose 50% IV OR, if no IV access, 1 mg Glucagon IM. Recheck BG in 30 minutes. May repeat juice, dextrose or glucagon once per episode For BG less than 50: 240 mL Juice or Regular (not diet) soda OR 25 grams (50 mL) Dextrose 50% IV OR, if no IV access, 1 mg Glucagon IM. Recheck BG in 30 minutes. May repeat juice, dextrose, or glucagon once per episode. To avoid extravasation, push Dextrose 50% SLOWLY (3 mL over 1 minute) in a patent, running IV, preferably a central line. For persistent hypoglycemia, consider longer-acting treatment for the duration of the active insulin., Routine heparin (porcine) injection 0-8,000 Units (CANCELED)(Linked Group 2) 0-8,000 Units, Intravenous, BOLUS PER HEPARIN PROTOCOL, Starting on Thu11/03/17 at 1202, Until Thu11/04/17 at 1215, Per Protocol, START ADJUSTMENT SCHEDULE 6 HOURS AFTER STARTING INFUSION aPTT Between 60 - 79 seconds: Bolus 3,150 units aPTT Less than 60 seconds: Bolus 6,300 units Increase infusion and recheck aPTT in 6 hours. , Routine 1236 (Given - Provider: Renetta Porter RN) 0334 (Given - Provider: Cherri Marie RN) HYDROmorphone (DILAUDID) injection 0.5 mg 0.5 mg, Intravenous, EVERY 4 HOURS PRN, Starting on Thu10/27/17 at 1555, Until Thu11/05/17 at 1654, Pain, STAT lidocaine (XYLOCAINE) 10 mg/mL (1 %) injection 3 mg 3 mg (0.3 mL), Subcutaneous, ONCE PRN, 1 dose, Starting on Thu10/27/17 at 1555, Until Thu11/05/17 at 1654, for discomfort with PIV insertion, Routine lidocaine (XYLOCAINE) 2 % viscous solution 15 mL 15 mL, Mucous Membrane, EVERY 4 HOURS PRN, Starting on Thu10/30/17 at 1409, Until Thu11/05/17 at 1654, throat discomfort, Routine ondansetron (ZOFRAN) injection 4 mg 4 mg, Intravenous, EVERY 8 HOURS PRN, Starting on Thu10/27/17 at 1429, Until Radha 11/05/17 at 1654, Nausea, Vomiting, Routine 0225 (Given - Provider: Riley Gonzales RN) oxyCODONE (ROXICODONE) immediate release tablet 10 mg(Linked Group 4) 10 mg, Oral, EVERY 4 HOURS PRN, Starting on Thu11/02/17 at 0848, Until Radha 11/05/17 at 1654, Pain, severe pain (7-10), May give an additional 5 mg in 30 minutes once if pain not relieved. For pain rated 5 or greater on scale 1-10, Routine 0039 (Given - Provider: Riley Gonzales RN)0455 (Given - Provider: Riley Gonzales RN)0909 (Given - Provider: Renetta Porter RN)1339 (Given - Provider: Junie Crawford RN)1717 (Given - Provider: Courtney Mcleod RN)2119 (Given - Provider: Junie Gloria RN) 0059 (Given - Provider: Cherri Marie RN)0610 (Given - Provider: Cherri Marie, GET)1042 (Given - Provider: June Leroy RN)1505 (Given - Provider: June Leroy RN)2019 (Given - Provider: Mariel Fitzgerald RN) 0033 (Given - Provider: Mariel Fitzgerald RN)1037 (Given - Provider: Courtney Mcleod RN) oxyCODONE (ROXICODONE) immediate release tablet 5 mg(Linked Group 4) 5 mg, Oral, EVERY 4 HOURS PRN, Starting on Thu11/02/17 at 0848, Until Radha 11/05/17 at 1654, Pain, mild to moderate pain (1-6), May give an additional 5 mg in 30 minutes once if pain not relieved., For pain rated 2-4 on scale from 1-10. Please try PO before IV., Routine 0039 (See Alternative - Provider: Riley Gonzales RN)0455 (See Alternative - Provider: Riley Gonzales RN)0909 (See Alternative - Provider: Renetta D Porter, RN)1339 (See Alternative - Provider: Junie Crawford, RN)1717 (See Alternative - Provider: Courtney Mcleod, GET)2119 (See Alternative - Provider: Junie Gloria, GET) 0059 (See Alternative - Provider: Cherri Mraie, RN)0610 (See Alternative - Provider: Cherri Marie, RN)1042 (See Alternative - Provider: June Leroy, GET)1505 (See Alternative - Provider: June Leroy, GET)2019 (See Alternative - Provider: Mariel Fitzgerald, GET) 0033 (See Alternative - Provider: Mariel Fitzgerald, GET)1037 (See Alternative - Provider: Courtney Mcleod RN) phenol 1.4% (CHLORASEPTIC) spray 2 spray 2 spray, Oral, EVERY 2 HOURS PRN, Starting on Thu10/30/17 at 1750, Until Thu11/05/17 at 1654, Irritation, Routine sodium chloride 0.9 % flush 5-20 mL 5-20 mL, Intravenous, EVERY 1 MIN PRN, Starting on Thu10/27/17 at 1555, Until Thu11/05/17 at 1654, flush, Flush pertains to all indwelling lines. Flush per protocol found in the job aid using the link provided on this medication record., Routine Linked Groups Order Group 1: POCT Fingerstick Glucose (CANCELED) Routine, EVERY 4 HOURS, First occurrence on Thu10/29/17 at 0400, Until Specified, Consider choosing FOUR TIMES A DAY BEFORE MEALS AND AT BEDTIME as frequency for: Patients who have good hypoglycemia awareness: -Patients who are eating meals during the day and sleeping at night -Patient who are otherwise stable And insulin lispro (humaLOG) VIAL injection 1-4 UnitsJump to med 1-4 Units, Subcutaneous, EVERY 4 HOURS, First dose (after last modification) on Thu10/29/17 at 0415, Until Discontinued, CORRECTION BOLUS Sensitive to insulin lean patient or total daily dose of all insulin needed to achieve glycemic control less than 30 units BG 140 - 160 Give 1 unit BG 161 - 200 Give 2 units BG 201 - 240 Give 3 units BG greater than 240, give 4 units and recheck BG in 2 hours. If less than 240 after two hours, give no insulin and resume prior schedule. If BG remains greater than 240, repeat 4 units (no more than three times) & call for new basal insulin orders. DO NOT hold if NPO, unless specifically told to do so., Routine Group 2: heparin (porcine) injection 0-8,000 Units (CANCELED)Jump to med 0-8,000 Units, Intravenous, BOLUS PER HEPARIN PROTOCOL, Starting on Thu11/03/17 at 1202, Until Thu11/04/17 at 1215, Per Protocol, START ADJUSTMENT SCHEDULE 6 HOURS AFTER STARTING INFUSION aPTT Between 60 - 79 seconds: Bolus 3,150 units aPTT Less than 60 seconds: Bolus 6,300 units Increase infusion and recheck aPTT in 6 hours. , Routine And heparin 25,000 units in dextrose 5% 500 mL infusion (CANCELED)Jump to med 0-5,000 Units/hr (0-100 mL/hr), Intravenous, CONTINUOUS, Starting on Thu11/03/17 at 1230, Until Thu11/04/17 at 1215, Begin infusion at 1,350 units per hr (15 units/kg/hr). MAX INITIAL infusion rate is 1,750 units/hr Target aPTT = 80 - 114 seconds Start adjustment schedule 6 hours after starting infusion. If aPTT is: - Less than 60 seconds, administer PRN bolus and increase rate by 350 units per hr (4 units/kg/hr) - 60-79 seconds, administer PRN bolus AND increase rate by 200 units per hr (2 units/kg/hr) - 80-114 seconds, no change - 115-129 seconds, decrease rate by 100 units per hr (1 unit/kg/hr) - 130-145 seconds, stop infusion for 30 minutes then decrease rate by 200 units per hr (2 units/kg/hr) - Greater than 145 seconds, stop infusion for 60 minutes then decrease rate by 250 units per hour (3 units/kg/hr) Repeat aPTT 6 hours after initiating heparin. Then 6 hours after each dose adjustment. When 2 consecutive aPTT within target range of 80 - 114 seconds, change aPTT to once every 24 hours with A.M. labs while on heparin. RN to order required aPTT - Per Protocol, Routine, Indication: Deep Venous Thrombosis Group 3: dextrose 50% IV syringe 25-50 mLJump to med 25-50 mL (12.5-25 g), Intravenous, EVERY 1 HOUR PRN, Starting on Thu10/27/17 at 1555, Until Radha 11/05/17 at 1654, Low blood sugar, For BG 50-70: 120 mL Juice or Regular (not diet) soda OR 12.5 gram (25 mL) Dextrose 50% IV OR, if no IV access, 1 mg Glucagon IM. Recheck BG in 30 minutes. May repeat juice, dextrose or glucagon once per episode For BG less than 50: 240 mL Juice or Regular (not diet) soda OR 25 grams (50 mL) Dextrose 50% IV OR, if no IV access, 1 mg Glucagon IM. Recheck BG in 30 minutes. May repeat juice, dextrose, or glucagon once per episode. To avoid extravasation, push Dextrose 50% SLOWLY (3 mL over 1 minute) in a patent, running IV, preferably a central line. For persistent hypoglycemia, consider longer-acting treatment for the duration of the active insulin., Routine Or glucagon (human recombinant) injection SolR 1 mgJump to med 1 mg, Intramuscular, EVERY 1 HOUR PRN, Starting on Thu10/27/17 at 1555, Until Radha 11/05/17 at 1654, Low blood sugar, For BG 50-70: 120 mL Juice or Regular (not diet) soda OR 12.5 gram (25 mL) Dextrose 50% IV OR, if no IV access, 1 mg Glucagon IM. Recheck BG in 30 minutes. May repeat juice, dextrose or glucagon once per episode For BG less than 50: 240 mL Juice or Regular (not diet) soda OR 25 grams (50 mL) Dextrose 50% IV OR, if no IV access, 1 mg Glucagon IM. Recheck BG in 30 minutes. May repeat juice, dextrose, or glucagon once per episode. To avoid extravasation, push Dextrose 50% SLOWLY (3 mL over 1 minute) in a patent, running IV, preferably a central line. For persistent hypoglycemia, consider longer-acting treatment for the duration of the active insulin., Routine Group 4: oxyCODONE (ROXICODONE) immediate release tablet 5 mgJump to med 5 mg, Oral, EVERY 4 HOURS PRN, Starting on 11/02/17 at 0848, Until Radha 11/05/17 at 1654, Pain, mild to moderate pain (1-6), May give an additional 5 mg in 30 minutes once if pain not relieved., For pain rated 2-4 on scale from 1-10. Please try PO before IV., Routine Or oxyCODONE (ROXICODONE) immediate release tablet 10 mgJump to med 10 mg, Oral, EVERY 4 HOURS PRN, Starting on 11/02/17 at 0848, Until Radha 11/05/17 at 1654, Pain, severe pain (7-10), May give an additional 5 mg in 30 minutes once if pain not relieved. 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
--- OUTSIDE RECORDS SUMMARY | 2024-11-18 16:56 | XMS_ITS | Encounter Summary ---
Author Organization [facility] Address [facility] [place] [address] Care Team Providers Care Ct Scan Technician Name Role Phone Randa Rosas APRN Primary Care Provider [phone] Reason for Visit * Auth/Cert Specialty Diagnoses [...] Expiration Date Visits Re quested Visits Authorized [id number] 1 1 Encounter Details Date Type Department Care Team (Late st Contact Info) Description 10/29/2017 9:23 AM EST Anesthesia Event [place] [id number] Tae Del Toro MD [facility] [place] [address] Miriam Hua MD Anesthesia Record Procedure Summary Procedure Name Responsible Anesthesiologist Anesthesia Start Time Anesthesia Stop Time @EXPLORATORY LAPAROTOMY, WITH/WITHOUT BIOPSY(S) (WRVU 12.54) (Abdomen) Tae Del Toro MD 10/29/17 0923 10/29/17 1549 Events Date Time Event Comment 10/29/2017 0845 0923 AN Verify 0923 Start 0923 An Start Data 0930 An Induction 0935 An Intubation 0955 Anesthesia Ready 1004 Procedure Start 1107 Break/Relief In Tae Del Toro MD 1150 ABG Data Arterial Blood Gas result: VENOUS BG pH * pCO2 pO2 %O2 Sat 99% FiO2 47% HCO3 BE Hb 12.1 K 4.17 Glucose 206 Lactate 1.28 1450 Break/Relief In Tae Del Toro MD 1535 Procedure Stop 1541 Extubation/LMA Out 1543 an stop data 1546 Recovery or ICU Handoff Abby ent care was transferred to the destination unit staff after review of the patient's medical history, current anesthetic/surgical status and plan, according to the Provider Handoff Checklist. 1549 Stop Meds Name Total Propofol 250 mg Rocuronium 120 mg PHENYLephrine 800 mcg ePHEDrine 5 mg Ondansetron 4 mg Dexamethasone 4 mg Neostigmine 5 mg Glycopyrrolate 0.8 mg TPN Adult 643.33 mL Albuterol Inhaler 8 puff Clindamycin 900 mg Propofol INF 581.9 mg fentaNYL 2 mcg/mL, BUpivacai ne (MARCAINE) 0.0625% (0.625 mg/mL)(1/16%) in sodium chloride 0.9% 250 mL epidural 22.97 mL PHENYLephrine INF 16,150 mcg heparin (Porcine) subcutaneous injection 5,000 Units 5,000 Units metroNIDAZOLE 500 mg Insulin Regular Human 8 Units Lactated Ringers 1,500 mL Lactated Ringers 2,000 mL * Agents Name O2 Air N2O Sevoflurane (et) Isoflurane (et) * Blood No blood administrations on file. Lines, Drains, and Airways Type Details Placement Removal Colostomy 05/11/13; 2040; descending/sigmoid colostomy; 1 3/4 05/11/132040 by Charles Christensen RN Incision 05/11/13; leg; 01/28/22; 0700 (not present) 05/11/13 0000 by Leti [...] collapsible closed device; 01/28/22; 0700 (NOT PRESENT) 05/11/132049 by Charles Christensen RN 01/28/22 0700 by Lis Brennan RN (RETIRED) Peripheral IV Line - Single Lumen 10/27/17; 0739; median cubital vein (antecubital fossa), left; [id number] catheter system; 18 gauge; ED RN; 10/29/17; 2330 10/27/17 0739 by Alaina Arvizu RN 10/29/17 2330 by Carlos Montes RN NG/OG Tube 10/27/17; 1424; nasogastric; 16 Fr; right nostril; Taped; Placed by Naomie Rachel; 10/31/17; 1530 10/27/17 1424 by Alaina Arvizu RN 10/31/17 1530 by Jocelyne Anaya RN Urethral Catheter 10/27/17; 1642; Acut e urinary retention, Close urine output monitoring: critically ill patient, Physician order; inserted at this facility; 10; 10; none; 10/31/17 10/27/17 1642 by Michaelle Thorne RN 10/31/17 0000 by Jocelyne Anaya RN (RETIRED) PICC Line - Triple Lumen 10/28/17; 1448; basilic vein (medial side of arm), left; pressure injectable catheter, open-ended catheter; 5 Fr; 44 cm; placement verified by x-ray; WOJCIECH JOYNER RN; 2; basilic vein (medial side of arm), right; 44cm removed intact, post removal instructions reviewed with pt; no longer indicated, removed per physician, removed per policy/procedure, catheter/device intact; 11/05/17; 0835 10/28/17 1448 by Carlos Joyner RN 11/05/17 0835 by Cherri Freeman RN Epidural 10/29/17; 0915; Dr. Interiano/Dr. Dickerson (loss at 6, tip T8, 12 cm at skin); no longer indicated, catheter intact, removed with ease; 11/02/17; 1547 10/29/17 0915 by Senait Nolan RN 11/02/17 1547 by Swetha Deunas RN ETT Mask Ventilation: Ea sy (1); ETT Type: Cuffed, Oral; ETT Size: 7.5 mm; Mac Blade: 4; Notes: Asleep, Pre-O2, Stylette; Attempts: 1; Laryngoscopy Grade: 1; ETT Placement Verified By: Auscultation, Capnometry, Visual; Secured at Teeth: 22 cm; Inserted by: Maria Couch CRNA; Removal Date: 10/29/17; Removal Time: 1543 10/29/17 0935 by Maria Couch CRITICAL CARE REGISTERED NURSE 10/29/17 1543 by Maria Couch CRNA (RETIRED) Peripheral IV Line - Single Lumen 10/29/17; 0945; metacarpal vein (top of hand), right; [id number] catheter system; 18 gauge; Maria Couch CRNA; (Under GA); 11/05/17; 1223 10/29/17 0945 by Maria Couch CRNA 11/05/17 1223 by Courtney Mcleod RN Incision 10/29/17; 1005; abdomen; 01/28/22; 0700 (not present) 10/29/17 1005 by Melvin Lu RN 01/28/22 0700 by Lis Brennan RN Drain/Device Site 10/29/17; 1300; Left ; abdomen; collapsible closed device; 11/04/17; (not present) 10/29/17 1300 by Yenny Doe RN 11/04/17 0000 by Courtney Mcleod RN Drain/Device Site 10/29/17; 1445; Righ t; midline; abdomen; (x2- 15Fr- Sandeep with 100ml [place]); 01/28/22; 0700 (not present) 10/29/17 1445 by Melvin Lu RN 01/28/22 0700 by Lsi Brennan RN documented in this encounter Social History [...] OR Notes * Anesthesia Postprocedure Evaluation - Tae Del Toro MD - 10/29/2017 3:52 PM EST [facility] [place] Anesthesiology Post-procedure Note Patient: Adrien Salazar Procedure Summary Date Anesthesia Start Anesthesia Stop Room / Location 10/29/17 0923 [facility] OR 20 / [facility] MAIN OR Procedure Diagnosis Surgeon Responsible Provider @EXPLORATORY LAPAROTOMY, WITH/WITHOUT BIOPSY(S) (WRVU 12.54) (N/A Abdomen); REPAIR INITIAL INCISIONAL OR VENTRAL HERNIA REDUCIBLE (WRVU 11.92) (N/A Abdomen); MODIFIER MESH,BARD VENTRALIGHT ST (N/A );INCARCERATED PARASTOMAL HERNIA REPAIR (WRVU 11.1) (N/A Abdomen) (Small Bowel Obstruction) Theo Washington MD Chow, Vinca W, MD All Anesthesia Providers: Anesthesiologist: Tae Del Toro MD CRITICAL CARE REGISTERED NURSE: Maria Couch CRNA Most Recent Vitals: 10/29/17 0800 BP: 108/55 Pulse: 67 Resp: 13 Temp: 37.3 ??C (99.1 ??F) SpO2: 97% Pain Patient Location: PACU/SDP Level of Consciousness: Conscious but Sleepy Pain Management: Satisfactory Analgesia PONV: None Cardiovascular Status: At Baseline Respiratory Status: Supplemental O2 (NC or FM) Postoperative Fluid Status: Intravascular EUvolemia Possible Anesthetic Complications: NONE apparent at time of evaluation Final Primary Anesthesia Type: General (The anesthetic type performed was the same as planned.) Comments: Vitals stable, breathing well, pain well-controlled with epidural. Intraop glucose was 211, order for POCT glucose check placed, RN informed. Tae Del Toro MD .prepla * Anesthesia Procedure Notes - Adrien Dickerson MD - 10/29/2017 9:16 AM EST Associated Order(s): ANE NEURAXIAL UPDATED Procedure: Neuraxial Block Post-op Pain Control Performed by APS Type: Epidural The patient was greeted. The sedation plan, its benefits, risks and alternatives were discussed with the patient. The patient has consented to the procedure. The medical history and chart were reviewed. The timeout was performed. Start time: 10/29/2017 9:01 AM End time: 10/29/2017 9:14 AM Patient Location: Operating Room Patient Prep Position: Prone Prep: Hand Hygiene, Hat, Mask, Sterile Gloves, Gown, Chlorhexidine and Patient Draped Injection technique: continuous Skin Anesthetic Lidocaine 1% 4 ml Procedure Technique Level of needle insertion: T11-12 Needle Type: Tuohy Needle length: 3.5 in Needle insertion depth when MELIDA achieved: 6 cm Technique for Loss of Resistance: MELIDA air and MELIDA saline Catheter at skin depth: 12 cm Dressing/Secured with: Chlorhexidine Tegaderm Number of attempts: 1 Bolus medication Hydromorphone 500 mcg Events/Notes Imaging: epidurogram obtained and fluoroscopy guided Level of Epidural Tip via Fluoroscopy: T8-9 Iohexol 240 mgI/mL, 4 mL Events: None Resident/CRITICAL CARE REGISTERED NURSE: SARAHI INTERIANO Second Resident/CRITICAL CARE REGISTERED NURSE: Fellow: Attending Physician: ADRIEN DICKERSON ~~~~~~~~~~~~~~~~~~~~~~~~~~~~~~~~~~~~~~~~~~~~~~~~~~~~~~~~~~~~ * Anesthesia Preprocedure Evaluation - Tae Del Toro MD - 10/29/2017 7:22 AM EST Pre-Anesthesia Evaluation for: Adrien Salazar a 62 y.o. male. Procedure(s): @EXPLORATORY LAPAROTOMY, WITH/WITHOUT BIOPSY(S) (WRVU 12.54) REPAIR INITIAL INCISIONAL OR VENTRAL HERNIA REDUCIBLE (WRVU 11.92) LAPAROSCOPIC PARASTOMAL HERNIA REPAIR (WRVU *) MODIFIER MESH,BARD VENTRALIGHT ST @BOWEL RESECTION, SMALL INTESTINE SINGLE ANASTOMOSIS (WRVU 20.82) Patient Active Problem List Diagnosis ??? SBO (small bowel obstruction) ??? Ostomy nurse consultation ??? Partial small bowel obstruction ??? Neurogenic bladder ??? Colostomy in place ??? Hypertension ??? Snoring ??? Diabetes mellitus ??? Obesity (BMI 35.0-39.9 without comorbidity) ??? Rectal cancer Past Medical History: Diagnosis Date ??? DM [...] LEGS performed by Oscar Soto MD at [facility] OR ??? PRO COLONOSCOPY, DIAGNOSTIC N/A 03/23/2015 COLONOSCOPY, DIAGNOSTIC performed by Bobby Hills MD at [facility] ENDOSCOPY ??? PRO CYSTOSCOPY, INSERT URETERAL STENT 05/11/2013 CYSTO, STENT PLACEMENT INTRAOP, TEMPORARY performed by Mark Khan MD at [facility] OR ??? PRO EXCLUSION, SMALL BOWEL FROM PELVIS 05/11/2013 @EXCLUSION OF SMALL INTESTINE FROM PELVIS performed by Bobby Hills MD at [facility] OR ??? PRO LAP, SURG PROCTECTOMY W COLOSTOMY 05/11/2013 @LAPAROSCOPIC PROCTECTOMY, COMPLETE, APR W COLOSTOMY performed by Bobby Hills MD at [facility] OR ??? PRO MUSCLE-SKIN FLAP, LEG 05/11/2013 FLAP, MYOCUTANEOUS OR FASCIOCUTANEOUS, LOWER EXTREMITY performed by Oscar Soto MD at [facility] OR ??? PRO OMENTAL FLAP, INTRA-ABDOMINAL 05/11/2013 @OMENTAL FLAP, INTRA-ABDOMINAL performed by Mark Khan MD at [facility] MAIN OR ??? PRO REMOVE ABD LYMPH NODES RAD REGNL 05/11/2013 @LYMPHADENECTOMY,ABDOMINAL,REGIONAL,MULTIPLE NODES performed by Bobby Hills MD at [facility] MAIN OR ??? TONSILLECTOMY AND ADENOIDECTOMY ??? VASECTOMY Social History Substance Use Topics ??? Smoking status: Former Smoker Quit date: 11/30/1996 ??? Smokeless tobacco: Never Used ??? Alcohol use Yes Comment: seldom History Drug Use ??? Yes Comment: Weekend use of marijuana per medical record Allergies Allergen Reactions ??? Penicillins Rash Medications: MAR and/or home medications have been reviewed. Physical Exam: Most Recent Vitals: 10/29/17 0400 BP: 101/56 Pulse: 69 Resp: 14 Temp: 36.8 ??C (98.2 ??F) SpO2: 96% Body mass index is 31.01 kg/(m^2). Height: 170.2 cm (5' 7) Weight - Scale: 89.8 kg (197 lb 15.6 oz) Airway Assessment: Mallampati: II TM distance: <3 FB Neck ROM: full Cardiovascular Assessment: Rhythm: regular Rate: normal Pulmonary Assessment: pulmonary exam normal PE comment: Inspiratory wheezing in bilateral anterior and basal lung vargas Dental Assessment: - normal exam Misc Assessment: IV access: Peripheral line Other exam findings: Mock Anesthesia Plan: ASA 3 general, with a(n) intravenous induction Adrien Salazar is a 62 y.o. 89.8kg male former smoker with h/o T2DM, HTN, Obesity, Protein S defficiency and stage IIa T3N0 s/p abdominoperineal resection in 2012 with known parastomal and incisionalhernias who presented on 10/27 with partial SBO, dehydration, MAYNOR. Labs were remarkable for WBC 16,Cr 3.3, Na 125 on admission (now normalized); presenting for Procedure(s): @EXPLORATORY LAPAROTOMY, WITH/WITHOUT BIOPSY(S) (WRVU 12.54) REPAIR INITIAL INCISIONAL OR VENTRAL HERNIA REDUCIBLE (WRVU 11.92) LAPAROSCOPIC PARASTOMAL HERNIA REPAIR (WRVU *) MODIFIER MESH,BARD VENTRALIGHT ST @BOWEL RESECTION, SMALL INTESTINE SINGLE ANASTOMOSIS (WRVU 20.82) with Dr. Washington. Patient's documented history was negative for seizures, CVA, lung dx, hepatic/renal disease or coagulopathy. Denies GERD. Denies LEANDER. There is no evidence of any recent URI symptoms, fevers/chills, or other signs of infection. Has been afebrile last 24 hours. CV: >4 METS NPO Status: Reviewed and appropriate Meds: insulin lispro, 1-4 Units, Subcutaneous, Q4H sodium chloride 0.9 %, 5 mL, Intravenous, BID heparin (Porcine), 5,000 Units, Subcutaneous, BID pantoprazole, 40 mg, Intravenous, Daily TPN Adult Last Rate: 100 mL/hr at 10/28/17 1807 dextrose 50% OR glucagon (human recombinant), sodium chloride 0.9 %, lidocaine, HYDROmorphone, ondansetron, flu vacc (6 mos-64 yrs)(PF) Allergies: -- Penicillins -- Rash Anesth hx: grade 1 view w/ Mac 4, ETT 7 EK/28 Normal sinus rhythm -Possible Inferior infarct , age undetermined -Abnormal R wave progression -Possible Anterior infarct , age undetermined -Abnormal ECG -When compared with ECG of 06-APR-2013 16:45, -Possible Anterior infarct is now Present -No significant change was found Labs: 10/29/17 10/28/17 10/27/17 0240 0155 0720 WBC 7.2 7.4 16.0* HGB 10.6* 11.3* 13.6* HCT 31.2* 32.8* 39.2* PLATELET 160 178 248 10/29/17 10/28/17 10/27/17 0240 0155 1639 NA 139 137 130* K 3.8 3.6 4.3 CL 99 97* 88* CO2 25 23 23 BUN 26* 57* 89* CREATININE 0.58* 0.96 1.96* 10/29/17 10/27/17 08/28/17 08/24/17 0240 0720 0322 0840 AST 8 18 12 Not Perf ALT 13 24 19 31 ALKPHOS 55 81 52 54 BILITOT 0.4 0.7 0.4 0.7 BILIDIR -- 0.2 -- 0.1 Type and screen: Active Plan for GA with ETT, +/- TAPS block or epidural, standard ASA monitoring +/- arterial line. Adequate IV access. This plan and note is formulated based on pre-operative chart review, the patient has not been examined. Anesthetic plan remains preliminary. The patient was informed of the risks, benefits and alternatives of anesthesia. These risks included, but were not limited to, post-operative nausea and/or vomiting, pain, sore throat, dental/lip trauma, and other rare but serious complications such as major organ damage, awareness, severe allergicreactions, position-related nerve injuries, and need blood transfusions. All questions sought and answered. Consent was signed and placed in chart. Attending Assessment: Patient personally seen and examined. 62yo M with h/o FEB 2013 for malignancy, with parastomal and incisional hernias, admitted 10/27 with partial SBO, dehydration, MAYNOR, to OR now for exlap, SBR, repair of ventral and parastomal hernia. Admission labs notable for WBC 16-->7.2, Cr 3.3-->0.5, Na 125-->139 PMH notable for: T2DM (on oral anti-hyperglycemics at home, elevated glucose of 239 this AM) HTN Obesity Protein S deficiency Good functional status, active working at the [employer], no exercise regimen. No cardiac or pulmonary problems. No recent URI. No symptoms of GERD in preop. NGT in place Mac4 Gr1 in 2012. No problems with anesthesia in the past. Meds: reviewed, minimal opioid use over the past day EKG 10/27/17: reviewed, NSR, isolated Q wave in lead III Last value Range last 24 hrs Heart Rate Heart Rate: 67 Heart Rate: (67-91) Blood Pressure BP: 108/55 BP: (91-132)/(49-73) Respiratory Rate Resp: 13 Resp: (-17) SpO2 SpO2: 97 % SpO2: (90 %-97 %) Significant labs: 10/29/17 10/28/17 10/27/17 0240 0155 0720 WBC 7.2 7.4 16.0* HGB 10.6* 11.3* 13.6* HCT 31.2* 32.8* 39.2* PLATELET 160 178 248 No results for input(s): PT, PTT, INR in the last 168 hours. 10/29/17 10/28/17 10/27/17 0240 0155 1639 NA 139 137 130* K 3.8 3.6 4.3 CL 99 97* 88* CO2 25 23 23 BUN 26* 57* 89* CREATININE 0.58* 0.96 1.96* GLUCOSE 213* 82 96 Plan: - preop Epidural, discussed with surgery - standard ASA monitors, PIV + PICC - GA with ETT, NGT on suction - glucose 239 at 8:30am, received 3u insulin, will continue to monitor intraop - Hgb 10.6, active T&S The patient was informed of the risks, benefits and alternatives of anesthesia. These risks included, but were not limited to, post-operative nausea and/or vomiting, pain, sore throat, dental/lip injury, and other rare but serious complications such as cardiac instability/arrest, neurologic event, awareness, severe allergic reactions, position-related nerve injuries, and need blood transfusions. All questions sought and answered. Consent was signed and placed in chart. Tae Del Toro MD 10/29/2017 Region - Other Informed Consent: Anesthetic plan and risks discussed with patient. Use of blood products discussed with patient who consented to blood products. Plan discussed with CRITICAL CARE REGISTERED NURSE and attending. PAT Staff Note documented in this encounter Plan of Treatment Not on file documented as of this encounter Procedures Procedure Name Priority Date/Time Associated Diagnosis Comments ANE NEURAXIAL UPDATED Routine 10/29/2017 9:19 AM EST Procedure Note - Adrien Dickerson MD - 10/29/2017 9:16 AM ESTThis note is in progress. Procedure: Neuraxial Block Post-op Pain Control Performed by APS Type: Epidural The patient was greeted. The sedation plan, its benefits, risks andalternatives were discussed with the patient. The patient has consentedto the procedure. The medical history and chart were reviewed. Thetimeout was performed. Start time: 10/29/2017 9:01 AM End time: 10/29/2017 9:14 AM Patient Location: Operating Room Patient Prep Position: Prone Prep: Hand Hygiene, Hat, Mask, Sterile Gloves, Gown, Chlorhexidine andPatient Draped Injection technique: continuous Skin Anesthetic Lidocaine 1% 4 ml Procedure Technique Level of needle insertion: T11-12 Needle Type: Tuohy Needle length: 3.5 in Needle insertion depth when MELIDA achieved: 6 cm Technique for Loss of Resistance: MELIDA air and MELIDA saline Catheter at skin depth: 12 cm Dressing/Secured with: Chlorhexidine Tegaderm Number of attempts: 1 Bolus medication Hydromorphone 500 mcg Events/Notes Imaging: epidurogram obtained and fluoroscopy guided Level of Epidural Tip via Fluoroscopy: T8-9 Iohexol 240 mgI/mL, 4 mL Events: None Resident/CRITICAL CARE REGISTERED NURSE: SARAHI INTERIANO Second Resident/CRITICAL CARE REGISTERED NURSE: Fellow: Attending Physician: ADRIEN DICKERSON ~~~~~~~~~~~~~~~~~~~~~~~~~~~~~~~~~~~~~~~~~~~~~~~~~~~~~~~~~~~~ documented in this encounter Visit Diagnoses Not on filedocumented in this encounter Administered Medications Inactive Administered Medications - up to 3 most recent administrations Medication Order MAR Action Action Date Dose Rate Site albuterol 90 mcg/actuation inhaler PRN, Starting on Radha 10/29/17 at 0925, Until Radha 10/29/17 at 1553, Wheezing, Anesthesia Intra-op, Routine Given 10/29/2017 3:31 PM EST 6 puffs Given 10/29/2017 9:25 AM EST 2 puffs clindamycin (CLEOCIN) injection PRN, Starting on Radha 10/29/17 at 0952, Until Radha 10/29/17 at 1553, Anesthesia Intra-op, Routine Given 10/29/2017 9:52 AM EST 900 mg dexamethasone (DECADRON) injection PRN, Starting on Radha 10/29/17 at 0952, Until Radha 10/29/17 at 1553, Anesthesia Intra-op, Routine Given 10/29/2017 9:52 AM EST 4 mg ePHEDrine 5 mg/mL multi-dose injection PRN, Starting on Radha 10/29/17 at 1232, Until Radha 10/29/17 at 1553, Anesthesia Intra-op, Routine Given 10/29/2017 12:32 PM EST 5 mg fentaNYL 2 mcg/mL, BUpivacaine (MARCAINE) 0.0625% [...] 6:53 PM EST 6 mL/hr 6 mL/hr glycopyrrolate (ROBINUL) multi-dose injection PRN, Starting on Radha 10/29/17 at 1528, Until Radha 10/29/17 at 1553, Anesthesia Intra-op, Routine Given 10/29/2017 3:28 PM EST 0.8 mg heparin (Porcine) subcutaneous injection 5,000 Units 5,000 Units, Subcutaneous, 2 TIMES DAILY, First dose on Thu10/27/17 at 2100, Until Discontinued, Routine Given 10/30/2017 8:03 PM EST 5,000 Unit s Given 10/30/2017 8:37 AM EST 5,000 Units Given 10/29/2017 9:16 PM EST 5,000 Units insulin regular human VIAL injection PRN, Starting on Radha 10/29/17 at 1322, Until Radha 10/29/17 at 1553, Anesthesia Intra-op, Routine Given 10/29/2017 3:21 PM EST 2 Units Given 10/29/2017 2:31 PM EST 2 Units Given 10/29/2017 1:50 PM EST 2 Units lactated Ringers infusion CONTINUOUS PRN, Starting on Radha 10/29/17 at 0923, Until Radha 10/29/17 at 1553, Anesthesia Intra-op New Bag 10/29/2017 11:59 AM EST New Bag 10/29/2017 9:23 AM EST lactated Ringers infusion CONTINUOUS PRN, Starting on Radha 10/29/17 at 0948, Until Radha 10/29/17 at 1553, Anesthesia Intra-op New Bag 10/29/2017 1:47 PM EST New Bag 10/29/2017 12:17 PM EST New Bag 10/29/2017 9:48 AM EST metroNIDAZOLE (FLAGYL) 500 mg in sodium chloride 0.9% 100 mL PRN, Starting on Radha 10/29/17 at 1110, Until Radha 10/29/17 at 1553, Administer over 30 Minutes, Anesthesia Intra-op Given 10/29/2017 11:10 AM EST 500 mg neostigmine (BLOXIVERZ) injection PRN, Starting on Radha 10/29/17 at 1527, Until Radha 10/29/17 at 1553, Anesthesia Intra-op, Routine Given 10/29/2017 3:27 PM EST 5 mg ondansetron (ZOFRAN) injection PRN, Starting on Radha 10/29/17 at 1516, Until Radha 10/29/17 at 1553, Nausea, Anesthesia Intra-op, Routine Given 10/29/2017 3:16 PM EST 4 mg PHENYLephrine (LEDY-SYNEPHRINE) 20 mg in sodium chloride 250 mL (standard ADULT & Pedi greater than 20kg) infusion CONTINUOUS PRN, Starting on Radha 10/29/17 at 1020, Until Radha 10/29/17 at 1553, Anesthesia Intra-op, Routine Rate/Dose Change 10/29/2017 3:31 PM EST 30 mcg/min 22.5 mL/hr Rate/Dose Change 10/29/2017 2:50 PM EST 50 mcg/min 37.5 mL /hr Rate/Dose Change 10/29/2017 1:50 PM EST 40 mcg/min 30 mL/h r PHENYLephrine in NS (PF) (LEDY-SYNEPHRINE) 0.8 mg/10 mL (80 mcg/mL) multi-dose injection Syrg PRN, Starting on Radha 10/29/17 at 0948, Until Radha 10/29/17 at 1553, Anesthesia Intra-op, Routine Given 10/29/2017 12:58 PM EST 80 mcg Given 10/29/2017 12:16 PM EST 80 mcg Given 10/29/2017 11:34 AM EST 80 mcg propofol (DIPRIVAN) 10 mg/mL bolus injection (Anesthesia) PRN, Starting on Radha 10/29/17 at 0930, Until Radha 10/29/17 at 1553, Anesthesia Intra-op Given 10/29/2017 10:08 AM EST 5 0 mg Given 10/29/2017 9:30 AM EST 200 mg propofol (DIPRIVAN) infusion CONTINUOUS PRN, Starting on Radha 10/29/17 at 1001, Until Radha 10/29/17 at 1553, Anesthesia Intra-op, Routine New Bag 10/29/2017 10:01 AM EST 30 mcg/kg/min 16.2 mL/hr rocuronium (ZEMURON) multi-dose injection PRN, Starting on Radha 10/29/17 at 0931, Until Radha 10/29/17 at 1553, Anesthesia Intra-op, Routine Given 10/29/2017 1:52 PM EST 10 mg Given 10/29/2017 1:01 PM EST 10 mg Given 10/29/2017 11:44 AM EST 20 mg TPN Adult Central, Intravenous, at 100 mL/hr, CONTINUOUS, Starting on Thu10/28/17 at 1800, Until Thu10/29/17 at 1759, Administer over 24 Hours Rate/Dose Change 10/29/2017 9:23 AM EST 100 mL/hr 100 mL/hr New Bag 10/28/2017 6:07 PM EST 100 mL/hr documented in this encounter Care Teams Ct Scan Technician Relationship Specialty Start Date End Date Randa Rosas APRN [address] [place] [id number] PCP - General 12/29/12 04/16/22 documented as of this encounter
--- OUTSIDE RECORDS SUMMARY | 2024-11-18 16:57 | XMS_ITS | Encounter Summary ---
[facility] Organization [facility] Address [facility] [place] [address] Care Team Providers Care Unit Leader Name Role Phone Randa Rosas VALENTIN Primary Care Provider [phone] Reason for Visit * Reason Comments Abdominal [...] Expiration Date Visits Re quested Visits Authorized [id number] 1 1 Encounter Details Date Type Department Care Team (Late st Contact Info) Description 10/29/2017 9:30 AM EST - 10/29/2017 1:58 PM EST [place] [address] Vivian Washington MD [facility] [place] [address] @EXPLORATORY LAPAROTOMY, WITH/WITHOUT BIOPSY(S) (WRVU 12.54) Social History Tobacco Use Types Packs/Day Years [...] Vivian Washington MD - Primary * Franklin Gonsales DO * BERNARDA Rachel MD: Procedure(s): @EXPLORATORY LAPAROTOMY, [...] and carb control diet. Patient met with [facility]'s dietitian regarding his diet 3. Total parenteral [...] Miscellaneous Medical Supply Misc 1 each by [facility].(Non-Drug; Combo Route) route daily. Apply to right [...] MONOJECT TB SAFETY SYRINGE 0.1 mLs by [facility].(Non-Drug; Combo Route) route as needed (use no [...] AND/OR HOSPICE SERVICES) PATIENT'S LOCATION: Adrien Cheung [address] [place] [phone] (home) Cell: No relevant phone numbers on file. 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 HOME HEALTH CARE AGENCY: [facility] PHONE: [phone] FAX: [phone] Start of care: 24-48 hrs after discharge Please note that any additional orders needs or changes will need to be obtained from this patient's PCP: Randa Rosas APRN [address] [facility] / [place] [address] All COUNTS INCLUDE 234 BEDS AT THE [facility] agencies which cover the area of patient's residence have been reviewed, either verbally jon writing, and patient/family have chosen the home health care agency noted Question Response Notes Agency name and contact information [facility] Patient location post discharge [address], [place] What services are requested Registered Nurse What services are requested Physical Therapy Responsible MD post discharge contact info PCP Instructions Given to Patient at Discharge:. An After Visit Summary was printed and given to the patient. Patient Instructions [facility] Department of General Surgery Discharge Instructions [...] with the Surgery nurses. The number is [phone]. - During the night or weekends call the [facility] desktop operator at [phone] and ask to speak to the surgery resident contact lens cutter for general surgery. Please note: Your surgeon may not be Hvac R Tech, especially during the night or on weekends, [...] hear anything, please call the clinic at [phone] to confirm or reschedule. If you need a prior authorization, please call the General Surgery Clinic nurses [phone] for prior authorizations assistance [facility] [...] []Hover for attribution information Ileostomy/Colostomy Pouching: ?? Winchester 2-piece pouch ? Name: Adrien Cheung Type of Ostomy: colostomy ?? Use this procedure as a guide when changing your appliance. Read all instructions, assemble all equipment, and empty contents from pouch before beginning actual change. If you have questions, do not hesitate to call the Ostomy Nurses at [phone]. ? Equipment: Company/Order Numbers ?? Wet and dry soft cloth (paper towels) Plastic bag Pen, Scissors, stoma pattern Pouch, transparent, Lock 'n roll Winchester 2 12/03 #00452 ?? Wafer, CeraPlus Winchester 2 12/03 #82455 ?? Adapt Powder Lexx #7906 Adapt Paste Lexx #22742 Nosting Skin Barrier Wipe Convate #879379 ?? Barrier rings Lexx # 4905 Non-allergic tape (4 strips) Anodyne Health paper tape if necessary Liquid Deodorant Winchester M9 #3983 Other Supplies (if any) ? Procedure: 1. [...] apply a dusting of Adapt protective powder. Clay off excess powder, or wafer will not [...] Schedule: twice a week Please call insurance [employer] (if needed) to request a list of [...] -Name of Surgeon and telephone number ? [email or web address] ([email or web address]) Radio Communications Mechanician: Hemalatha Bradley [phone] ?? Our Family Kitchen (wwwDigital Mines) ?? Semantify (Chipolo) ?? EnterCloud Solutions ([email or web address]) ?? ID Quantique (Lezu365) ?? *If you wear [employer] products and are having a difficult time finding a vendor that will accept your Insurance you may call [employer] at . They have a team of 30 Insurance experts whowill help you find a vendor that can bill your Insurance Company. Remember, if they need to return your call expect a call from [place], in case you are screening your calls. [...] Brito MD Acute Care Surgery Team Pager #[phone] 11/05/2017 12:03 PM documented in this encounter Discharge Instructions * Discharge Instructions* Esha Clark RN - 10/29/2017 4:48 PM EST Images from the original note were not included. Esha Clark RN Registered Nurse Signed Wound Care Team Consult Note Date of Service: 10/29/2017 ??4:46 PM []Hide copied text []Hover for attribution information Ileostomy/Colostomy Pouching: ?? Winchester 2-piece pouch ? Name: Adrien Cheung Type of Ostomy: colostomy ?? Use this procedure as a guide when changing your appliance. Read all instructions, assemble all equipment, and empty contents from pouch before beginning actual change. If you have questions, do not hesitate to call the Ostomy Nurses at [phone]. ? Equipment: Company/Order Numbers ?? Wet and dry soft cloth (paper towels) Plastic bag Pen, Scissors, stoma pattern Pouch, transparent, Lock 'n roll Winchester 2 12/03 #59267 ?? Wafer, CeraPlus Lexx 2 12/03 #49795 ?? Adapt Powder Lexx #7906 Adapt Paste Winchester #59495 Nosting Skin Barrier Wipe Convatec #584742 ?? Barrier rings Winchester # 8325 Non-allergic tape (4 strips) Anodyne Health paper tape if necessary Liquid Deodorant Lexx M9 #1711 Other Supplies (if any) ? Procedure: 1. [...] apply a dusting of Adapt protective powder. Clay off excess powder, or wafer will not [...] Changing Schedule: twice a week Please call [employer] (if needed) to request a list of [...] are discharged from VNA/Homecare Nursingproceed with calling [employer] to get preferred vendor (below) ?? Non [...] -Name of Surgeon and telephone number ? [employer] ([email or web address]) Radio Communications Mechanician: Hemalatha Bradley [phone] ?? Our Family Kitchen (CaseRails) ?? Semantify ([place]) ?? EnterCloud Solutions (Sympoz (dba [email or web address]).Red Falcon Development.[email or web address]) ?? ID Quantique (Lezu365) ?? *If you wear [employer] products and are having a difficult time finding a vendor that will accept your Insurance you may call [employer] at . They have a team of 30 Insurance experts whowill help you find a vendor that can bill your Insurance Company. Remember, if they need to return your call expect a call from [place], in case you are screening your calls. [...] from the original note were not included. [facility] Department of General Surgery Discharge Instructions [...] day, it is best to call the 4 General Surgery Clinic to speak with the Surgery nurses. The number is [phone]. - During the night or weekends call the [facility] desktop operator at [phone] and ask to speak to the surgery resident contact lens cutter for general surgery. Please note: Your surgeon may not be Hvac R Tech, especially during the night or on weekends, [...] hear anything, please call the clinic at [phone] to confirm or reschedule. If you need a prior authorization, please call the General Surgery Clinic nurses [phone] for prior authorizations assistance [facility] [...] Care Everywhere. * ABDOMINAL HERNIA REPAIR: POST-OP (ALBANIAN) documented in this encounter Medications at Time [...] mg Tablet 10/21/2017 08/03/2020 Miscellaneous Medical Supply [facility] 1 each by [facility].(Non-Drug; Combo Route) route daily. Apply to right [...] 5/8 SyrgIndications:Male erectile dysfunction 0.1 mLs by [facility].(Non-Drug; Combo Route) route as needed (use no [...] urging to confirm out of pocket cost nursing home (expected duration of therapy 12 months). Pharmacy ran script through insurance (Cigna) and no co-pay. Pt will be d/c [...] 94 % SpO2: [94 %-96 %] 11/03 701 - 11/04 700 In: 558 [P.O.:150; I.V.:408] Out: 1860 [Urine:1800] [...] Floor status Mark Brito MD ACS Pager [phone] Attending Addendum I have seen and examined [...] kg/(m^2). Intake/Output Summary (Last 24 hours) at 12/06/17 0656 Last data filed at 11/04/17 0625 [...] please page if further consultation required. ?? Pilar Green Nickerson Vascular Surgery, PGY2 Pager #[phone] * Key Bell, PT - 11/03/2017 4:38 PM EST Physical Therapy Contact Note Attempted to see patient x 2 this morning, however patient unavailable. Unable to return in the afternoon. Will continue to follow and treat when available. Key Bell, PT, DPT Pager: [phone] Physical Therapy Rehabilitation Department * Lorie Diallo [...] cancer Active Orders Diet Carb Control diet 60/60/75 CHO counting level 2 Frequency: Effective Now Number of Occurrences: Until Specified Admit Weight: 90.1 kg Estimated body mass index is 31.01 kg/(m^2) as calculated from the following: Height as of this encounter: 170.2 cm (5' 7). Weight as of this encounter: 89.8 kg (197 lb 15.6 oz). [place] body weight: 66.1 kg (145 lb 11.6 [...] Floor status Mark Brito MD ACS Pager [phone] Attending Addendum I have seen and examined [...] Floor status Mark Brito MD ACS Pager [phone] Attending Addendum I have seen and examined [...] will discuss epidural removal with Pain Service DLani Price MD * Danielle Mcclelland RN - 11/02/2017 2:06 PM EST OFFICE OF CARE MANAGEMENT Per review of MR pt continues to make progress. Tolerating Liquids at this time, working with PT/OT, continues with TPN though may be able to wean if PO improves per team. Referral in place at this time with [facility]. CM remains available to assist with needs. [...] notes. URIEL NOLAN RN 11/02/2017 Pager # [phone] Uriel Nolan RN, has performed the documentation [...] Progress Note Patient Name: Adrien Cheung : [id number] MR#: [id number] 10/27/2017 Hospital Day 5 days Problem List: [...] of <180 EDIN OBRIEN MD 11/01/2017 * Lenroe Marie MD - 11/01/2017 9:40 AM EST [...] concerns. LENORE MARIE MD 11/01/2017 Pager # [phone] * Gonsales, Franklin Everett DO - 11/01/2017 7:24 AM EST General [...] Floor status FRANKLIN GONSALES, DO ACS Pager [phone] * Jocelyne Pablo RN - 10/31/2017 6:17 [...] concerns. LENORE MARIE MD 10/31/2017 Pager # [phone] * Franklin Gonsales DO - 10/31/2017 8:21 [...] LVX; Protonix DISPO: Floor status FRANKLIN GONSALES, [facility] Pager [phone] * Lenore Marie MD - 10/30/2017 2:00 [...] notes. URIEL NOLAN RN 10/30/2017 Pager # [phone] Uriel Nolan, RN, has performed the documentation for this [...] he has used VNA in past ( [facility] and [facility]) and will accept as needed. He confirms while he lives alone he has support people available to assist- currently has family/ friends here to visit. We did discussed currently reviewing insurance for coverage should TPN be needed at discharge. We discussed anticipate VNA services for assist with ostomy teaching. Will initiate referral process. The patient/premium service representative has been provided a list of Home Health Agencies/DME vendors which servetheir preferred geographic area. A letter describing our affiliations was reviewed with them and they were educated about their right to choose where referrals are placed. Patient requests referral to [facility] PHONE: [phone] FAX: [phone] Expected date of discharge: TBD Referral routed to the Machine Taper for matching with agency/vendor and to provide [...] s/p Procedure(s) (LRB): @EXPLORATORY LAPAROTOMY, WITH/WITHOUT BIOPSY(S) (WRVU 12.54) (N/A) REPAIR INITIAL INCISIONAL OR VENTRAL HERNIA REDUCIBLE (WRVU 11.92) (N/A) MODIFIER MESH,BARD VENTRALIGHT ST (N/A) INCARCERATED PARASTOMAL HERNIA REPAIR (WRVU 11.1) (N/A) S: Pt seen and examined [...] hand flushes well with good draw back 1700- Iza BULK STATION AGENT at bedside to assess right hand. No [...] [facility] Alfred Bah RN aMrk Mohr MD - 10/29/2017 10:04 AM EST General [...] BP: (92-132)/(49-73) Respiratory Rate Resp: 13 Resp: [11-17] SpO2 SpO2: 97 % SpO2: [90 %-97 [...] [91 %-100 %] 10/27 701 - 10/28 0700 In: 2034 [I.V.:2004] Out: 4350 [Urine:3350] NGT: [...] 32.8* 39.2* PLATELET 178 248 Recent Labs 10/28/1715410/27/17 1639 10/27/17 0720 NA 137 130* 125* [...] as this issue will reoccur. NPO at CT tonight for hernia repair with mesh tomorrow [...] DISPO: Floor status; OR tomorrow * Kayode Hutchins RD - 10/28/2017 1:04 PM EST TPN [...] I/O last 3 completed shifts: In: 2034 [I.V.:2005; Other:30] Out: 4350 [Urine:3350; Other:500; Stool:500] Propofol [...] Progress Note Patient Name: Adrien Cheung : [id number] MR#: [id number] 10/27/2017 Hospital Day 1 day Problem List: [...] Negative mcL Appearance UA Clear Clear Spec Cathay UA 1.005 1.002 - 1.030 Color UA [...] LEGS performed by Oscar Soto MD at [facility] MAIN OR ??? PRO COLONOSCOPY, DIAGNOSTIC N/A 03/23/2015 COLONOSCOPY, DIAGNOSTIC performed by Bobby Hills MD at [facility] ENDOSCOPY ??? PRO CYSTOSCOPY, INSERT URETERAL STENT 05/11/2013 CYSTO, STENT PLACEMENT INTRAOP, TEMPORARY performed by Mark Khan MD at [facility] MAIN OR ??? PRO EXCLUSION, SMALL BOWEL FROM PELVIS 05/11/2013 @EXCLUSION OF SMALL INTESTINE FROM PELVIS performed by Bobby Hills MD at [facility] MAIN OR ??? PRO LAP, SURG PROCTECTOMY W COLOSTOMY 05/11/2013 @LAPAROSCOPIC PROCTECTOMY, COMPLETE, APR W COLOSTOMY performed by Bobby Hills MD at [facility] OR ??? PRO MUSCLE-SKIN FLAP, LEG 05/11/2013 FLAP, MYOCUTANEOUS OR FASCIOCUTANEOUS, LOWER EXTREMITY performed by Oscar Soto MD at [facility] OR ??? PRO OMENTAL FLAP, INTRA-ABDOMINAL 05/11/2013 @OMENTAL FLAP, INTRA-ABDOMINAL performed by Mark Khan MD at [facility] OR ??? PRO REMOVE ABD LYMPH NODES RAD REGNL 05/11/2013 @LYMPHADENECTOMY,ABDOMINAL,REGIONAL,MULTIPLE NODES performed by Bobby Hills MD at [facility] OR ??? TONSILLECTOMY AND ADENOIDECTOMY ??? VASECTOMY [...] 25 x 5/8 Syrg 0.1 mLs by [facility].(Non-Drug; Combo Route) route as needed (use no more than 3 times a week). 25 Syringe 11 ??? lisinopril (PRINIVIL;ZESTRIL) 10 mg tablet Take 10 mg by mouth 2 times daily. ??? atorvastatin (LIPITOR) 40 mg tablet Take 20 mg by mouth daily. 1/2 tab= 20mg ??? 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 Smoking status: [...] deficits 24 Hr I/O's: LABS: Recent Labs 10/27/17 0720 WBC 16.0* HGB 13.6* HCT 39.2* PLATELET 248 NEUTROABS 13.12* Recent Labs 10/27/17 0720 NA 125* K 4.9 CL 80* CO2 25 BUN 109* CREATININE 3.33* Recent Labs 10/27/17 0720 CALCIUM 7.9* Recent Labs 10/27/17 0720 GLUCOSE 212* No results for input(s): AMYLASE, BFAMYLASE in the last 168 hours. Recent Labs 10/27/17 0720 AST 18 ALT 24 ALKPHOS 81 BILITOT [...] Rehan Rachel MD PGY-2 General Surgery Pager [phone] Team pager [phone] Associated attestation - Vivian Washington MD - [...] to the planned procedure. Hand Hygiene: The bar turner did perform hand hygiene prior to line insertion. Catheter type: PICC Lot number: [id number] Procedure Technique: Skin was prepped with chlorhexidine. [...] TO ADVANCE WIRE BEYOND AXILLA NOTED WITH SULLY JOYNER RN 10/28/2017 documented in this encounter ED Notes * Aleks Oseguera MD - 10/27/2017 3:54 PM EST Chief Complaint: Adrien Cheung is a 62 y.o. male with history of rectal cancer s/p neoadjuvant chemoradiation followed by AP resection (followed by adjuvant chemo), DM, GERD, HTN, who presents to the [facility] ED with a chief complaint of fatigue. 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 [...] obstruction. Sincere Oseguera, PGY-1 Internal Medicine Pager [phone] Aleks Oseguera MD Resident 10/27/17 7191 Associated attestation - Swetha Price MD - [...] noted otherwise below. ED Course * Alaina May, RN - 10/27/2017 7:25 AM EST MD [...] doc flowsheets. Colostomy only putting out flatus, MD aware. Pt self-cathed at 2330 and 0600. [...] assistance with ADL's Surveillance [continuous indirect monitoring]: Brenden, Purposeful Rounding, Bedside Report Patient-specific fall prevention [...] Assessment Outcome: Ongoing (Interventions Implemented as Appropriate) 10/27/17172611/02/17208 Discharge Needs Assessment Concerns To Be Addressed [...] Conf Outcome: Ongoing (Interventions Implemented as Appropriate) 12/07/17 0308 Interdisciplinary Rounds/Family Conf Participants nursing;patient Problem: Pain, Acute (Adult) Goal: Acceptable Pain Control/Comfort Level Patient will demonstrate the desired outcomes by discharge/transition of care. Outcome: Ongoing (Interventions Implemented as Appropriate) 11/05/17 0308 Pain, Acute (Adult) Acceptable Pain Control/Comfort Level making progress toward outcome Problem: Health Knowledge, Opportunity to Enhance (Adult,NICU,,Obstetrics,Pediatric) Goal: Identify Related Risk Factors and Signs and Symptoms Related risk factors and signs and symptoms are identified upon initiation of Human Response Clinical Practice Guideline (CPG) Outcome: Ongoing (Interventions Implemented as Appropriate) 11/05/17 0308 Health Knowledge, Opportunity to Enhance Health Knowledge, Opportunity for Enhanced: Related Risk Factors pain Goal: Knowledgeable about Health Subject/Topic Patient will demonstrate the desired outcomes by discharge/transition of care. Outcome: Ongoing (Interventions Implemented as Appropriate) 11/05/17 0308 Health Knowledge, Opportunity to Enhance (Adult,NICU,[place],Obstetrics,Pediatric) Knowledgeable about Health Subject/Topic making progress toward [...] home with assist ABIMAEL OLIVA PTA Pager: [phone] Inpatient Physical Therapy Problem: Acute Rehab Services Goal & Intervention Plan Goal: Bed Mobility Goal Stand Alone Therapy Goal Outcome: Outcome (s) achieved Date Met: 11/04/17 10/30/17 1400 11/04/17 1630 Bed Mobility Goal Bed Mobility Goal, Date Established 10/30/17 -- Bed Mobility Goal, Time to Achieve 2 wks -- Bed Mobility Goal, Activity Type all bed mobility activities -- Bed Mobility Goal, [place] Level independent -- Bed Mobility Goal, Assistive Device (Log roll technique) -- Bed Mobility Goal, Outcome Achieved -- goal met Goal: Gait Training Goal Stand Alone Therapy Goal Outcome: Outcome (s) achieved Date Met: 11/04/17 10/30/17 1400 11/04/17 1630 Gait Training Goal Gait Training Goal, Date Established 10/30/17 -- Gait Training Goal, Time to Achieve 2 wks -- Gait Training Goal, [place] Level supervision required -- Gait Training Goal, [...] Outcome: Ongoing (Interventions Implemented as Appropriate) 11/02/17 020 Interdisciplinary Rounds/Family Conf Participants nursing;patient;physician Problem: Pain, Acute (Adult) Goal: Acceptable Pain Control/Comfort Level Patient will demonstrate the desired outcomes by discharge/transition of care. Outcome: Ongoing (Interventions Implemented as Appropriate) 11/04/17 1441 Pain, Acute (Adult) Acceptable Pain Control/Comfort Level making progress toward outcome Problem: Health Knowledge, Opportunity to Enhance (Adult,NICU,[place],Obstetrics,Pediatric) Goal: Knowledgeable about Health Subject/Topic Patient will demonstrate the desired outcomes by discharge/transition of care. Outcome: Ongoing (Interventions Implemented as Appropriate) 11/04/17 1441 Health Knowledge, Opportunity to Enhance (Adult,NICU,[place],Obstetrics,Pediatric) Knowledgeable about Health Subject/Topic making progress toward [...] pending recs on outpatient DVT treatment from [facility] surgery Mali Bentley, MS3 [facility] Resident: Rene Gonsales DO Attending: Alfredito Price [...] with assist, home with home health Pager: [phone] ROXY Trujillo 11/04/2017 Occupational Therapy Rehabilitation Department [...] Handling Outcome: Ongoing (Interventions Implemented as Appropriate) 11/02/1720811/03/17201711/04/17 0032 Musculoskeletal Interventions Muscle Strengthening activity/mobility promoted;mobility [...] 11/02/17 0209 Interdisciplinary Rounds/Family Conf Participants nursing;patient;physician OUTCOME EVALUATION [...] Within arms reach Surveillance [continuous indirect monitoring]: Masimo, purposeful rounding and nurse knowledge exchange Patient-specific fall prevention interventions for sensory deficits provided, if applicable: CPG GOAL OUTCOME EVALUATION: * Plan of Care - Renetta Porter RN - 11/03/2017 3:41 PM EST Problem: Patient Care Overview Goal: Plan of Care Review OUTCOME EVALUATION NOTE: OUTCOME SUMMARY: Pt. Had a good day. Pt. Had RLE duplex this AM. Heparin drip initiated (see MAR). Pain adequately controlled with PRN pain meds (see MAR). No signs or symptoms of acute distress [...] EVALUATION: * Med Student Progress Note - JaMali hastings Luis - 11/03/2017 12:39 PM EST General Surgery [...] to tolerate PO intake Mali Bentley, MS3 [facility] [employer] [facility] Resident: Rene Gonsales DO Attending: Alfredito Price [...] and ventral hernia who was admitted to [facility] with recurrent SBO. Patient is now [...] LEGS performed by Oscar Soto MD at [facility] OR ??? PRO COLONOSCOPY, DIAGNOSTIC N/A 03/23/2015 COLONOSCOPY, DIAGNOSTIC performed by Bobby Hills MD at [facility] ENDOSCOPY ??? PRO CYSTOSCOPY, INSERT URETERAL STENT 05/11/2013 CYSTO, STENT PLACEMENT INTRAOP, TEMPORARY performed by Mark Khan MD at [facility] OR ??? PRO EXCLUSION, SMALL BOWEL FROM PELVIS 05/11/2013 @EXCLUSION OF SMALL INTESTINE FROM PELVIS performed by Bobby Hills MD at [facility] OR ??? PRO EXPLORATORY OF ABDOMEN N/A 10/29/2017 @EXPLORATORY LAPAROTOMY, WITH/WITHOUT BIOPSY(S) (WRVU 12.54) performed by Vivian Washington MD [facility] OR ??? PRO LAP, SURG PROCTECTOMY W COLOSTOMY 05/11/2013 @LAPAROSCOPIC PROCTECTOMY, COMPLETE, APR W COLOSTOMY performed by Bobby Hills MD at [facility] OR ??? PRO MUSCLE-SKIN FLAP, LEG 05/11/2013 FLAP, MYOCUTANEOUS OR FASCIOCUTANEOUS, LOWER EXTREMITY performed by Oscar Soto MD at [facility] OR ??? PRO OMENTAL FLAP, INTRA-ABDOMINAL 05/11/2013 @OMENTAL FLAP, INTRA-ABDOMINAL performed by Mark Khan MD at [facility] MAIN OR ??? PRO REMOVE ABD LYMPH NODES RAD REGNL 05/11/2013 @LYMPHADENECTOMY,ABDOMINAL,REGIONAL,MULTIPLE NODES performed by Bobby Hills MD at [facility] MAIN OR ??? PRO REPAIR INCISIONAL HERNIA, REDUCIBLE N/A 10/29/2017 REPAIR INITIAL INCISIONAL OR VENTRAL HERNIA REDUCIBLE (WRVU 11.92) performed by Vivian Washington MD at [facility] MAIN OR ? ? PRO UNLISTED PX ABD PRTM&OMENTUM N/A 10/29/2017 INCARCERATED PARASTOMAL HERNIA REPAIR (WRVU 11.1) performed by Vivian Washington MD at [facility] MAIN OR ??? TONSILLECTOMY AND ADENOIDECTOMY ??? VASECTOMY Social History: Social History Social History ??? Marital status: Spouse name: N/A ??? Number of children: N/A ??? 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 Smoking status: Former Smoker Quit date: 11/30/1996 ??? Smokeless tobacco: Never Used ??? Alcohol use Yes Comment: seldom ??? Drug use: Yes Comment: Weekend use of marijuana per medical record ??? Sexual activity: Yes Partners: Female Comment: Pipap has been with him since ~ 2005 [...] 25 x 5/8 Syrg 0.1 mLs by Misc.(Non-Drug; Combo Route) route as needed (use no [...] required. Pilar Nickerson Vascular Surgery, PGY2 Pager #[phone] * Consult Note - Esha Clark RN - 11/03/2017 11:44 AM EST Images from the original note were not included. Inpatient post op note Diagnosis: Small Bowel Obstruction Surgery/Date: 10/29/17 Procedure(s) (LRB): @EXPLORATORY LAPAROTOMY, WITH/WITHOUT BIOPSY(S) (WRVU 12.54) (N/A) REPAIR INITIAL INCISIONAL OR VENTRAL HERNIA REDUCIBLE (WRVU 11.92) (N/A) MODIFIER MESH,BARD VENTRALIGHT ST (N/A) INCARCERATED PARASTOMAL HERNIA REPAIR (WRVU 11.1) (N/A) Appliance: Removed Winchester 2 12/03 and replaced with same Changed: [...] amount of serosanguinous fluid. Midline abdominal incision DIRECTOR OF BROADCAST with kayy intact, abdominal binder on. Pt [...] (Interventions Implemented as Appropriate) 11/02/17 0209 11/03/17 0039 11/03/17422 Musculoskeletal Interventions Muscle Strengthening activity/mobility [...] care. Outcome: Ongoing (Interventions Implemented as Appropriate) 11/02/17 0209 Pain, Acute (Adult) Acceptable Pain Control/Comfort Level making progress toward outcome Problem: Health Knowledge, Opportunity to Enhance (Adult,NICU,[place],Obstetrics,Pediatric) Goal: Identify Related Risk Factors and Signs and Symptoms Related risk factors and signs and symptoms are identified upon initiation of Human Response Clinical Practice Guideline (CPG) Outcome: Ongoing (Interventions Implemented as Appropriate) 11/02/17 0209 Health Knowledge, Opportunity to Enhance Signs and Symptoms (Health Knowledge Enhance) information requested Goal: Knowledgeable about Health Subject/Topic Patient will demonstrate the desired outcomes by discharge/transition of care. Outcome: Ongoing (Interventions Implemented as Appropriate) 11/02/17 0209 Health Knowledge, Opportunity to Enhance (Adult,NICU,,Obstetrics,Pediatric) Knowledgeable [...] bed mobility activities -- Bed Mobility Goal, [place] Level independent -- Bed Mobility Goal, Assistive Device (Log roll technique) -- Bed Mobility Goal, Outcome Achieved -- goal ongoing Goal: Gait Training Goal Stand Alone Therapy Goal Outcome: Ongoing (Interventions Implemented as Appropriate) 10/30/17 1400 11/02/17 1434 Gait Training Goal Gait Training Goal, Date Established 10/30/17 -- Gait Training Goal, Time to Achieve 2 wks -- Gait Training Goal, [place] Level supervision required -- Gait Training Goal, [...] 96 % SpO2: [93 %-96 %] 11/01 0701 - 11/02 0700 In: 5016.3 [P.O.:1130] Out: 2810 [Urine:2049] R [...] -- 153 (1 unit lispro given) 11/01 0400 -- 180 (2 units lispro given) 11/01 0700 -- 160 (1 units lispro given) NEW [...] days pending continued improvement Mali Bentley, MS3 [facility] Resident: Rene Gonsales DO Attending: Dick Thakur [...] ??? 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, TPN [...] Anticipated Discharge Disposition: home with assist Pager: [phone] KEY BELL, PT 11/02/2017 Physical Therapy Rehabilitation [...] bed mobility activities -- Bed Mobility Goal, [place] Level independent -- Bed Mobility Goal, Assistive Device (Log roll technique) -- Bed Mobility Goal, Outcome Achieved -- goal ongoing Goal: Gait Training Goal Stand Alone Therapy Goal Outcome: Ongoing (Interventions Implemented as Appropriate) 10/30/17 1400 11/02/17 1434 Gait Training Goal Gait Training Goal, Date Established 10/30/17 -- Gait Training Goal, Time to Achieve 2 wks -- Gait Training Goal, [place] Level supervision required -- Gait Training Goal, [...] wks -- Transfer Training Goal, Activity Type tse-es-vumht/itwpy-cn-thl;air-ep-qotuj/qerne-jp-tht -- Transfer Train Goal, [place] Level supervision required -- Transfer Training Goal, [...] Handling Outcome: Ongoing (Interventions Implemented as Appropriate) 11/01/17212711/02/17 0209 Musculoskeletal Interventions Muscle Strengthening -- activity/mobility promoted;mobility [...] amount of serosanguinous fluid. Midline abdominal incision DIRECTOR OF BROADCAST with kayy intact, abdominal binder on. Pt [...] (Interventions Implemented as Appropriate) 10/31/17 1318 10/31/172034 Troo Fall Risk History of Falling -- 0 [...] outcome Problem: Health Knowledge, Opportunity to Enhance (Adult,NICU,[place],Obstetrics,Pediatric) Goal: Knowledgeable about Health Subject/Topic Patient will demonstrate the desired outcomes by discharge/transition of care. Outcome: Ongoing (Interventions Implemented as Appropriate) 10/30/17 1231 Health Knowledge, Opportunity to Enhance (Adult,NICU,[place],Obstetrics,Pediatric) Knowledgeable about Health Subject/Topic making progress toward outcome Problem: Acute Rehab Services Goal & Intervention Plan Goal: Bed Mobility Goal Stand Alone Therapy Goal Outcome: Ongoing (Interventions Implemented as Appropriate) 10/30/17 1400 Bed Mobility Goal Bed Mobility Goal, Date Established 10/30/17 Bed Mobility Goal, Time to Achieve 2 wks Bed Mobility Goal, Activity Type all bed mobility activities Bed Mobility Goal, [place] Level independent Bed Mobility Goal, Assistive Device (Log roll technique) Goal: Gait Training Goal Stand Alone Therapy Goal Outcome: Ongoing (Interventions Implemented as Appropriate) 10/30/17 1400 Gait Training Goal Gait Training Goal, Date Established 10/30/17 Gait Training Goal, Time to Achieve 2 wks Gait Training Goal, [place] Level supervision required Gait Training Goal, Assist [...] 2 wks Transfer Training Goal, Activity Type zyv-ry-uwhso/nenov-yl-ufr;kwm-pr-qweaw/kxwtt-nk-tas Transfer Train Goal, [place] Level supervision required Transfer Training Goal, Assist [...] 93 % SpO2: [93 %-98 %] 10/30 0701 - 10/31 0700 [...] function and post-op course Mali Bentley, MS3 [facility] Resident: Rene Gonsales DO Attending: Edin Obrien [...] assist with ADLs. Surveillance [continuous indirect monitoring]: Masimo, nursing knowledge exchange, purposeful rounding. Patient has [...] LEGS performed by Oscar Soto MD at [facility] MAIN OR ??? PRO COLONOSCOPY, DIAGNOSTIC N/A 03/23/2015 COLONOSCOPY, DIAGNOSTIC performed by Bobby Hills MD at [facility] ENDOSCOPY ??? PRO CYSTOSCOPY, INSERT URETERAL STENT 05/11/2013 CYSTO, STENT PLACEMENT INTRAOP, TEMPORARY performed by Mark Khan MD at [facility] OR ??? PRO EXCLUSION, SMALL BOWEL FROM PELVIS 05/11/2013 @EXCLUSION OF SMALL INTESTINE FROM PELVIS performed by Bobby Hills MD at [facility] OR ??? PRO EXPLORATORY OF ABDOMEN N/A 10/29/2017 @EXPLORATORY LAPAROTOMY, WITH/WITHOUT BIOPSY(S) (WRVU 12.54) performed by Vivian Washington MD [facility] OR ??? PRO LAP, SURG PROCTECTOMY W COLOSTOMY 05/11/2013 @LAPAROSCOPIC PROCTECTOMY, COMPLETE, APR W COLOSTOMY performed by Bobby Hills MD at [facility] OR ??? PRO MUSCLE-SKIN FLAP, LEG 05/11/2013 FLAP, MYOCUTANEOUS OR FASCIOCUTANEOUS, LOWER EXTREMITY performed by Oscar Soto MD at [facility] OR ??? PRO OMENTAL FLAP, INTRA-ABDOMINAL 05/11/2013 @OMENTAL FLAP, INTRA-ABDOMINAL performed by Mark Khan MD at [facility] OR ??? PRO REMOVE ABD LYMPH NODES RAD REGNL 05/11/2013 @LYMPHADENECTOMY,ABDOMINAL,REGIONAL,MULTIPLE NODES performed by Bobby Hills MD at [facility] OR ??? PRO REPAIR INCISIONAL HERNIA, REDUCIBLE N/A 10/29/2017 REPAIR INITIAL INCISIONAL OR VENTRAL HERNIA REDUCIBLE (WRVU 11.92) performed by Vivian Washington MD at [facility] OR ? ? PRO UNLISTED PX ABD PRTM&OMENTUM N/A 10/29/2017 INCARCERATED PARASTOMAL HERNIA REPAIR (WRVU 11.1) performed by Vivian Washington MD at [facility] OR ??? TONSILLECTOMY AND ADENOIDECTOMY ??? VASECTOMY [...] all bed mobility activities Bed Mobility Goal, [place] Level independent Bed Mobility Goal, Assistive Device (Log roll technique) Goal: Gait Training Goal Stand Alone Therapy Goal Outcome: Ongoing (Interventions Implemented as Appropriate) 10/30/17 1400 Gait Training Goal Gait Training Goal, Date Established 10/30/17 Gait Training Goal, Time to Achieve 2 wks Gait Training Goal, [place] Level supervision required Gait Training Goal, Assist [...] 2 wks Transfer Training Goal, Activity Type sxx-xz-oczdy/tkcke-eu-mub;crg-ym-xmakl/hbyvl-vv-bbs Transfer Train Goal, [place] Level supervision required Transfer Training Goal, Assist [...] (4 liters O2) 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, 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, 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, ostomy, uriarte, 2 MARIEL drains, [...] with assist, home with home health Pager: [phone] VIVIAN QUINONES OT 10/30/2017 Occupational Therapy Rehabilitation [...] device and L/min 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, 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, 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, ostomy, uriarte, 2 MARIEL drains [...] Anticipated Discharge Disposition: home with assist Pager: [phone] KEY BELL, PT 10/30/2017 Physical Therapy Rehabilitation [...] all bed mobility activities Bed Mobility Goal, [place] Level independent Bed Mobility Goal, Assistive Device (Log roll technique) Goal: Gait Training Goal Stand Alone Therapy Goal Outcome: Ongoing (Interventions Implemented as Appropriate) 10/30/17 1400 Gait Training Goal Gait Training Goal, Date Established 10/30/17 Gait Training Goal, Time to Achieve 2 wks Gait Training Goal, [place] Level supervision required Gait Training Goal, Assist [...] 2 wks Transfer Training Goal, Activity Type dci-nn-yqguo/hjxxv-xy-ofb;clw-wx-mqjjy/nouvo-oi-bno Transfer Train Goal, [place] Level supervision required Transfer Training Goal, Assist [...] to bowel function and post-op course Mali Pereseliseomanny, MS3 [facility] Resident: Rene Gonsales DO Attending: Edin Obrien MD * Consult Note - Esha Clark RN - 10/30/2017 11:42 AM EST Ostomy nurse note - he is currently wearing a Winchester 2 3/4 ostomy appliance which is intact, nogas or effluent in pouch and he is wearing large abdominal binder. I showed him and his girlfriend Charlette how to attach pouch to wafer and how to use velcro tail closure. He is used to wearing a [employer] wafer # [id number] which is a moldable convex wafer. I gave him a bag with some Lexx 2 1/4 wafers and pouches and discussed use of a floating flange vs. A stationary flange. He would like to try the Lexx wafers and pouches and I will order him a starter kit with wafer # [id number] (pre-cut 1 3/8 hole flat). I told him that he can call [facility] and ask them to send him samples of a pre-cut 1 1/4 wafer with an accordion flange and then he could continue using the [employer] product. Told him that he will be having a post-op visit with ostomy nurse and then he can let us know what he wouldprefer and then can get him ordering information for a Lexx floating flange wafer with a pre-cut hole 1 1/4 and hopefully he will call [facility] and ask for their accordion style flange. I reviewed his discharge ostomy paperwork and showed him the ordering information for supplies he has in discharge bag. His stoma is red, moist and almost flush. * Plan of Care - Carlos Montes, RN - 10/30/2017 5:52 AM EST Problem: [...] assist with ADLs. Surveillance [continuous indirect monitoring]: Brenden, nursing knowledge exchange, purposeful rounding. Patient has [...] LEGS performed by Oscar Soto MD at [facility] OR ??? PRO COLONOSCOPY, DIAGNOSTIC N/A 03/23/2015 COLONOSCOPY, DIAGNOSTIC performed by Bobby Hills MD at [facility] ENDOSCOPY ??? PRO CYSTOSCOPY, INSERT URETERAL STENT 05/11/2013 CYSTO, STENT PLACEMENT INTRAOP, TEMPORARY performed by Mark Khan MD at [facility] OR ??? PRO EXCLUSION, SMALL BOWEL FROM PELVIS 05/11/2013 @EXCLUSION OF SMALL INTESTINE FROM PELVIS performed by Bobby Hills MD at [facility] OR ??? PRO LAP, SURG PROCTECTOMY W COLOSTOMY 05/11/2013 @LAPAROSCOPIC PROCTECTOMY, COMPLETE, APR W COLOSTOMY performed by Bobby Hills MD at [facility] OR ??? PRO MUSCLE-SKIN FLAP, LEG 05/11/2013 FLAP, MYOCUTANEOUS OR FASCIOCUTANEOUS, LOWER EXTREMITY performed by Oscar Soto MD at [facility] OR ??? PRO OMENTAL FLAP, INTRA-ABDOMINAL 05/11/2013 @OMENTAL FLAP, INTRA-ABDOMINAL performed by Mark Khan MD at [facility] OR ??? PRO REMOVE ABD LYMPH NODES RAD REGNL 05/11/2013 @LYMPHADENECTOMY,ABDOMINAL,REGIONAL,MULTIPLE NODES performed by Bobby Hills MD at [facility] OR ??? TONSILLECTOMY AND ADENOIDECTOMY ??? VASECTOMY [...] Handling Outcome: Ongoing (Interventions Implemented as Appropriate) 10/29/172 10/30/17 0100 Toro Fall Risk History of Falling [...] tomorrow) Problem: Health Knowledge, Opportunity to Enhance (Adult,NICU,[place],Obstetrics,Pediatric) Goal: Knowledgeable about Health Subject/Topic Patient will demonstrate the desired outcomes by discharge/transition of care. Outcome: Ongoing (Interventions Implemented as Appropriate) 10/30/17 0546 Health Knowledge, Opportunity to Enhance (Adult,NICU,,Obstetrics,Pediatric) Knowledgeable [...] week pending post-op course Mali Bentley, MS3 [facility] Resident: Rene Gonsales DO Attending: Edin Obrien MD * Consult Note - Esha Clark RN - 10/29/2017 4:46 PM EST Ileostomy/Colostomy Pouching: Winchester 2-piece pouch Name: Adrien Cheung Type of Ostomy: colostomy Use this procedure as a guide when changing your appliance. Read all instructions, assemble all equipment, and empty contents from pouch before beginning actual change. If you have questions, do not hesitate to call the Ostomy Nurses at [phone]. Equipment: Company/Order Numbers Wet and dry soft cloth (paper towels) Plastic bag Pen, Scissors, stoma pattern Pouch, transparent, Lock 'n roll Lexx 2 12/03 #89130 Wafer, CeraPlus Lexx 2 12/03 #83166 Adapt Powder Lexx #7906 Adapt Paste Lexx #91853 Nosting Skin Barrier Wipe [facility] #[id number] Barrier rings Lexx # 2075 Non-allergic tape (4 strips) An[employer]ne [employer] paper tape if necessary Liquid Deodorant Lexx M9 #9341 Other Supplies (if any) Procedure: 1. Using [...] apply a dusting of Adapt protective powder. Clay off excess powder, or wafer will not [...] Changing Schedule: twice a week Please call [employer] (if needed) to request a list of [...] are discharged from VNA/Homecare Nursingproceed with calling [employer] to get preferred vendor (below) Non Medicare [...] using -Name of Surgeon and telephone number [email or web address] ([email or web address]) Radio Communications Mechanician: Hemalatha Mirna [phone] [employer] (www.[email or web address] INFRASTRUCTURE INVESTMENTS) [facility] (www.[email or web address]) [employer] ([email or web address]) [employer] (Sympoz (dba [email or web address]).[email or web address]) *If you wear Winchester products and are having a difficult time finding a vendor that will accept your Insurance you may call [employer] at . They have a team of 30 Insurance experts whowill help you find a vendor that can bill your Insurance Company. Remember, if they need to return your call expect a call from [place], in case you are screening your calls. [...] Washington MD - 10/29/2017 4:08 PM EST [facility] Operative Note Patient Name: Adrien Cheung : [id number] MR#: [id number] Case Date: 10/29/2017 Surgeon: Surgeon(s) and Role: * Vivian Washington MD - Primary * Franklin Gonsales, DO * BERNARDA Rachel MD Preoperative diagnosis: Small [...] of bleeding, infection, damage to surrounding structures, PR, DVT or PE, and likely future hernia [...] fashion. We proceeded to place 2 15 Guyanese drains in the subcutaneous tissues. The umbilicus [...] Operative Note Patient Name: Adrien Cheung : [id number] MR#: [id number] Case Date: 10/29/2017 Surgeon: Surgeon(s) and Role: [...] in bed. TPN at 100 mls/hr continued. Uriarte draining clear yellow urine. Or karine to [...] Review Outcome: Ongoing (Interventions Implemented as Appropriate) 10/28/171826 Coping/Psychosocial Plan Of Care Reviewed With patient [...] in bed. He has been wearing a [employer] 2 piece 2 1/4 appliance and since [...] EST Problem: Health Knowledge, Opportunity to Enhance (Adult,NICU,,Obstetrics,Pediatric) Goal: Knowledgeable about Health Subject/Topic Patient will demonstrate the desired outcomes by discharge/transition of care. Peripherally Inserted Central Catheter (PICC) Teaching Sheet Peripherally inserted central catheters (hhza-ya-rfrm) (PICC) are used when you need IV [...] midline catheter? PICC lines are used for intermodal owner operator truck driver treatments. PICC lines may be used for [...] can be set up via the nurse Cant Gang Sawyer to help you. What are possible complications [...] Vascular Access Device Selection, Insertion, and Management, Tubular Labs Access Systems 09/03. A Review of the Efficacy, Safety, Use, and Administration of Cathflo, Genentech, Inc. 2005 * Initial Assessments - Sunitha [...] Advance Care Planning: Yes, on file at [facility]. Current Coping/Education/Information Needs: Current coping questions and concerns have been addressed. He understands that when he moves to a regular floor he will work with another family caseworker until discharge. Current Functional Ability: TBD, may require PT/OT evaluation. Functional Status Prior to Admission: Ambulates without an assistive device, performs ADL's and IADL's. Home Environment: Lives in [place], [place]. He has 2 steps to enter the home with no surrounding railing. Social & Family Supports/Community Resources: He has plenty support of family and friends. Levi Cheung (Child) [phone] (H) Charlette Madrid (Friend) [phone] (H) Jazmyn Cheung (Parent) [phone] (H) Behavioral Health History: Denies depression or anxiety. Substance Use/Abuse: Quit smoking tobacco 20 years ago, denies use of any other tobacco products, denies use of EtOH, and smokes marijuana every day. Other Pertinent/Service Specific Information: None at this time. Health/Prescription Coverage: Primary Insurance: CIGNA Secondary Insurance: FINANCIAL ASSISTANCE Prescription Coverage: TB Preferred Pharmacy: [facility] - [place], [place] - [address] [address] PhysicianPortal [facility] [place], [place] Other: [facility] Primary Care Provider: Randa Rosas APRN [phone] Patient/Caregiver Goals of Treatment: To go home [...] assist with transition of care planning. Sunitha Damico, RN Pager: [phone] * Plan of Care - Jacqueline Zaldivar [...] Outcome (s) achieved Date Met: 10/28/17 10/27/17 172 Pain, Acute Related Risk Factors [...] Ongoing (Interventions Implemented as Appropriate) 10/27/17 1727 Pain, Acute Related Risk Factors (Acute Pain) disease process;patient perception;persistent pain;positioning Signs and Symptoms (Acute Pain) constipation/diarrhea;guarding/abnormal posturing/positioning;questions meaning of pain;verbalization of pain descriptors Goal: Acceptable Pain Control/Comfort Level Patient will demonstrate the desired outcomes by discharge/transition of care. Outcome: Ongoing (Interventions Implemented as Appropriate) 10/27/17 1727 Pain, Acute (Adult) Acceptable Pain Control/Comfort Level [...] IMPLANTABLE DEVICES SCAN 11/06/2017 12:00 AM EST CYCLE MANAGER SCAN 11/06/2017 12:00 AM EST POCT GLUCOSE [...] 10/27/2017 11:34 AM EST TYPE AND SCREEN ([facility]/CGP/ARACELI) STAT 10/27/2017 11:[address] ABDOMEN [...] SCAN EXT O RDR/RSLT * SCAN DOC: CYCLE MANAGER (11/06/2017 12:00 AM EST) Anatomical Region Laterality [...] TEST O RDERABLES [facility] [place] [address] * POCT Glucose (11/05/2017 7:38 AM EST) Glucose, POC 129 65 - 199 mg/dL [facility] Comment: Supplemental ranges: <140 mg/dL before meals <180 mg/dL all other times of the day Blood specimen (specimen) 11/05/2017 7:38 AM EST 11/05/2017 7:38 AM EST Liss Price MD POINT OF CARE TEST O ZACH Performing Organization Address [facility] Co de Phone Number [facility] [place] [address] * POCT Glucose (11/05/2017 4:03 AM EST) Glucose, POC 150 65 - 199 mg/dL [facility] Comment: Supplemental ranges: <140 mg/dL before meals <180 mg/dL all other times of the day Blood specimen (specimen) 11/05/2017 4:03 AM EST 11/05/2017 4:03 AM EST Liss Price MD POINT OF CARE TEST O ANNAMARIAERAKENYA Performing Organization Address [facility] de Phone Number [facility] [place] [address] * POCT Glucose (11/05/2017 12:19 AM EST) Glucose, POC 129 65 - 199 mg/dL [facility] Comment: Supplemental ranges: <140 mg/dL before meals <180 mg/dL all other times of the day Blood specimen (specimen) 11/05/2017 12:19 AM EST 11/05/2017 12:19 AM EST Liss Price MD POINT OF CARE TEST O ZACH Performing Organization Address [facility] Co de Phone Number [facility] [place] [place] [address] * POCT Glucose (11/04/2017 7:53 PM EST) Glucose, POC 128 65 - 199 mg/dL [facility] Comment: Supplemental ranges: <140 mg/dL before meals <180 mg/dL all other times of the day Blood specimen (specimen) 11/04/2017 7:53 PM EST 11/04/2017 7:53 PM EST Liss Price MD POINT OF CARE TEST O RDSILVIA Performing Organization Address [facility] Co de Phone Number [facility] [place] [address] * (ABNORMAL) POCT Glucose (11/04/2017 4:18 PM EST) Glucose, POC 216(H) 65 - 199 mg/dL [facility] Comment: Supplemental ranges: <140 mg/dL before meals <180 mg/dL all other times of the day Blood specimen (specimen) 11/04/2017 4:18 PM EST 11/04/2017 4:18 PM EST Liss Price MD POINT OF CARE TEST O ZACH Performing Organization Address [facility] Co de Phone Number [facility] [place] [address] * POCT Glucose (11/04/2017 12:07 PM EST) Glucose, POC 164 65 - 199 mg/dL [facility] Comment: Supplemental ranges: <140 mg/dL before meals <180 mg/dL all other times of the day Blood specimen (specimen) 11/04/2017 12:07 PM EST 11/04/2017 12:07 PM EST Liss Price MD POINT OF CARE TEST O ZACH Performing Organization Address [facility] Co de Phone Number [facility] [address] * (ABNORMAL) APTT (11/04/2017 9:30 AM EST) Partial Thromboplastin Time 104(H) 25 - 35 sec [facility] Comment: The recommended therapeutic range for full dose, unfractionated heparin at [facility] is 80 ? 114 seconds. The use of the anti-Xa (heparin) level rather than the PTT is recommended for monitoring anticoagulation intensity in critically ill patients receiving unfractionated heparin by continuous IV infusion. Blood specimen (specimen) 11/04/2017 9:30 AM EST 11/04/2017 9:50 AM EST Narrative Resulting Agency Comment Spec In Lab Liss Price MD HEMATOLOGY ORDERABLE S Performing Organization Address [facility] de Phone Number [facility] [place] [address] * POCT Glucose (11/04/2017 7:50 AM EST) Glucose, POC 173 65 - 199 mg/dL [facility] Comment: Supplemental ranges: <140 mg/dL before meals <180 mg/dL all other times of the day Blood specimen (specimen) 11/04/2017 7:50 AM EST 11/04/2017 7:50 AM EST Liss Price MD POINT OF CARE TEST O RDERABLES Performing Organization Address [facility] Phone Number [facility] [place] [address] * POCT Glucose (11/04/2017 6:07 AM EST) Glucose, POC 131 65 - 199 mg/dL [facility] Comment: Supplemental ranges: <140 mg/dL before meals <180 mg/dL all other times of the day Blood specimen (specimen) 11/04/2017 6:07 AM EST 11/04/2017 6:07 AM EST Liss Price MD POINT OF CARE TEST O ZACH Performing Organization Address [facility] de Phone Number [facility] [place] [address] * POCT Glucose (11/04/2017 3:48 AM EST) Glucose, POC 135 65 - 199 mg/dL [facility] Comment: Supplemental ranges: <140 mg/dL before meals <180 mg/dL all other times of the day Blood specimen (specimen) 11/04/2017 3:48 AM EST 11/04/2017 3:48 AM EST Liss Price MD POINT OF CARE [place] [address] * (ABNORMAL) Differential, Automated (11/04/2017 2:40 AM EST) Neutrophil % 73.1 % [facility] Neutrophil Absolute 5.91 1.70 - 6.10 x10(3)/ L [facility] Lymph % 11.1 % [facility] Lymphocytes Abs 0.9 0.9 - 3.2 x10(3)/[facility] Monocyte % 9.8 % [facility] Monocyte Abs 0.8 0.3 - 0.9 x10(3)/[facility] Eos % 2.2 % [facility] Eosinophils Abs 0.2 0.0 - 0.4 x10(3)/[facility] Basophil % 0.6 % [facility] Baso Absolute 0.0 0.0 - 0.1 x10(3)/[facility] Immature Gran % 3.20 % [facility] Comment: Immature granulocytes(IG's)percentage and absolute count will include metamyelocytes, myelocytes, and promyelocytes. Blood smears from CBCs yielding IG's will be scanned manually for concordance. If this scan disagrees with the automated IG or if promyelocytes are noted, a manual differential will be performed. Immature Gran Absolute 0.26(H) 0.00 - 0.04 x10(3)/ L [facility] Blood specimen (specimen) 11/04/2017 2:40 AM EST 11/04/2017 2:51 AM EST Narrative Resulting Agency Comment Spec In Lab Liss Price MD HEMATOLOGY ORDERABLE S Performing Organization Address City/[facility]/ZIP Co de Phone Number [facility] [place] [address] * (ABNORMAL) Hemogram (11/04/2017 2:40 AM EST) White Blood Cell 8.1 4.0 - 9.5 x10(3)/ L [facility] Red Blood Cell 3.13(L) 4.58 - 5.54 x10(6)/ L [facility] Hemoglobin 9.3(L) 13.7 - 16.5 gm/dL [facility] Hematocrit 28.4(L) 40.5 - 48.5 % [facility] Mean Cell Volume 90.7 82.9 - 93.1 fL [facility] Mean Cell Hemoglobin 29.7 27.5 - 32.1 pg [facility] Mean Cell Hemoglobin Concentration 32.7 32.0 - 35.7 gm/dL [facility] Platelet 193 145 - 357 x10(3)/[facility] RDW Standard Deviation 45.1(H) 36.0 - 45.0 [facility] RDW coefficient of variation 13.8 11.4 - 13.8 % [facility] Mean Platelet Volume 11.4 7.6 - 12.9 [facility] NRBC% auto 0.0 % [facility] NRBC Absolute 0.000 0.000 - 0.000 x10(3)/[facility] Blood specimen (specimen) 11/04/2017 2:40 AM EST 11/04/2017 2:51 AM EST Narrative Resulting Agency Comment Spec In Lab Liss Price MD HEMATOLOGY ORDERABLE S [facility] [place] [address] * (ABNORMAL) APTT (11/04/2017 2:40 AM EST) Partial Thromboplastin Time 73(H) 25 - 35 sec [facility] Comment: The recommended therapeutic range for full dose, unfractionated heparin at [facility] is 80 ? 114 seconds. The use of the anti-Xa (heparin) level rather than the PTT is recommended for monitoring anticoagulation intensity in critically ill patients receiving unfractionated heparin by continuous IV infusion. Blood specimen (specimen) 11/04/2017 2:40 AM EST 11/04/2017 2:51 AM EST Narrative Resulting Agency Comment Spec In Lab Liss Price MD HEMATOLOGY ORDERABLE S Performing Organization Address [facility] Co de Phone Number [facility] [place] [address] * POCT Glucose (11/04/2017 12:06 AM EST) Glucose, POC 162 65 - 199 mg/dL [facility] Comment: Supplemental ranges: <140 mg/dL before meals <180 mg/dL all other times of the day Blood specimen (specimen) 11/04/2017 12:06 AM EST 11/04/2017 12:06 AM EST Liss Price MD POINT OF CARE TEST O RDERABLES Performing Organization Address [facility] Co de Phone Number [facility] [address] * POCT Glucose (11/03/2017 8:12 PM EST) Glucose, POC 152 65 - 199 mg/dL [facility] Comment: Supplemental ranges: <140 mg/dL before meals <180 mg/dL all other times of the day Blood specimen (specimen) 11/03/2017 8:12 PM EST 11/03/2017 8:12 PM EST Liss Price MD POINT OF CARE TEST O RDERABLES Performing Organization Address [facility] Co de Phone Number [facility] [address] * (ABNORMAL) Differential, Automated (11/03/2017 6:35 PM EST) Neutrophil % 75.3 % [facility] Neutrophil Absolute 6.61(H) 1.70 - 6.10 x10(3)/[facility] Lymph % 11.2 % [facility] Lymphocytes Abs 1.0 0.9 - 3.2 x10(3)/[facility] Monocyte % 8.3 % [facility] Monocyte Abs 0.7 0.3 - 0.9 x10(3)/[facility] Eos % 2.7 % [facility] Eosinophils Abs 0.2 0.0 - 0.4 x10(3)/[facility] Basophil % 0.6 % [facility] Baso Absolute 0.0 0.0 - 0.1 x10(3)/[facility] Immature Gran % 1.90 % [facility] Comment: Immature granulocytes(IG's)percentage and absolute count will include metamyelocytes, myelocytes, and promyelocytes. Blood smears from CBCs yielding IG's will be scanned manually for concordance. If this scan disagrees with the automated IG or if promyelocytes are noted, a manual differential will be performed. Immature Gran Absolute 0.17(H) 0.00 - 0.04 x10(3)/[facility] Blood specimen (specimen) 11/03/2017 6:35 PM EST 11/03/2017 6:56 PM EST Narrative Resulting Agency Comment Spec In Lab Liss Price MD HEMATOLOGY ORDERABLE S [facility] [place] [address] * (ABNORMAL) Hemogram (11/03/2017 6:35 PM EST) White Blood Cell 8.8 4.0 - 9.5 x10(3)/[facility] Red Blood Cell 3.31(L) 4.58 - 5.54 x10(6)/mc L [facility] Hemoglobin 10.0(L) 13.7 - 16.5 gm/dL [facility] Hematocrit 29.6(L) 40.5 - 48.5 % [facility] Mean Cell Volume 89.4 82.9 - 93.1 fL [facility] Mean Cell Hemoglobin 30.2 27.5 - 32.1 pg [facility] Mean Cell Hemoglobin Concentration 33.8 32.0 - 35.7 gm/dL [facility] Platelet 181 145 - 357 x10(3)/mc L [facility] RDW Standard Deviation 45.1(H) 36.0 - 45.0 fL [facility] RDW coefficient of variation 13.9(H) 11.4 - 13.8 % [facility] Mean Platelet Volume 11.5 7.6 - 12.9 fL [facility] NRBC% auto 0.0 % [facility] NRBC Absolute 0.000 0.000 - 0.000 x10(3)/mc L [facility] Blood specimen (specimen) 11/03/2017 6:35 PM EST 11/03/2017 6:56 PM EST Narrative Resulting Agency Comment Spec In Lab Liss Price MD HEMATOLOGY ORDERABLE S Performing Organization Address City/State/[facility] Co de Phone Number [facility] [address] * (ABNORMAL) APTT (11/03/2017 6:35 PM EST) [facility] Signature Partial Thromboplastin Time >160(Crit ical) 25 - 35 sec [facility] Comment: Called by: loren, Read back by: saji henderson, Date/Time:11/03/17 19:34. The recommended therapeutic range for full dose, unfractionated heparin at [facility] is 80 ? 114 seconds. The use of the anti-Xa (heparin) level rather than the PTT is recommended for monitoring anticoagulation intensity in critically ill patients receiving unfractionated heparin by continuous IV infusion. Blood specimen (specimen) 11/03/2017 6:35 PM EST 11/03/2017 6:56 PM EST Narrative Resulting Agency Comment Spec In Lab Liss Price MD HEMATOLOGY ORDERABLE S Performing Organization Address [facility]/ZIP Co de Phone Number [facility] [place] [address] * POCT Glucose (11/03/2017 4:24 PM EST) Glucose, POC 128 65 - 199 mg/dL [facility] Comment: Supplemental ranges: <140 mg/dL before meals <180 mg/dL all other times of the day Blood specimen (specimen) 11/03/2017 4:24 PM EST 11/03/2017 4:24 PM EST Liss Price MD POINT OF CARE TEST O RDERABLES Performing Organization Address [facility] Co de Phone Number [facility] [address] * (ABNORMAL) POCT Glucose (11/03/2017 11:52 AM EST) Glucose, POC 204(H) 65 - 199 mg/dL [facility] Comment: Supplemental ranges: <140 mg/dL before meals <180 mg/dL all other times of the day Blood specimen (specimen) 11/03/2017 11:52 AM EST 11/03/2017 11:52 AM EST Liss Price MD POINT OF CARE TEST O ZACH Performing Organization Address [facility] Co de Phone Number [facility] [address] * Lavender Tube HOLD (11/03/2017 11:08 AM EST) Lavender Hold Sample in lab. [facility] Blood specimen (specimen) Venous Draw / Unknown 11/03/2017 11:08 AM EST 11/03/2017 11:47 AM EST Liss Price MD HEMATOLOGY ORDERABLE S [facility] [address] * (ABNORMAL) Differential, Automated (11/03/2017 11:08 AM EST) Neutrophil % 78.4 % [facility] Neutrophil Absolute 7.20(H) 1.70 - 6.10 x10(3)/mc L [facility] Lymph % 8.9 % [facility] Lymphocytes Abs 0.8(L) 0.9 - 3.2 x10(3)/mc L [facility] Monocyte % 7.8 % [facility] Monocyte Abs 0.7 0.3 - 0.9 x10(3)/mc L [facility] Eos % 2.3 % [facility] Eosinophils Abs 0.2 0.0 - 0.4 x10(3)/mc L [facility] Basophil % 0.5 % [facility] Baso Absolute 0.0 0.0 - [...] HEMATOLOGY ORDERABLE S [facility] [place] [address] * (ABNORMAL) Hemogram (11/03/2017 11:08 AM EST) White Blood Cell 9.2 4.0 - 9.5 x10(3)/[facility] Red Blood Cell 3.63(L) 4.58 - 5.54 x10(6)/[facility] Hemoglobin 10.7(L) 13.7 - 16.5 gm/dL [facility] Hematocrit 32.5(L) 40.5 - 48.5 % [facility] Mean Cell Volume 89.5 82.9 - 93.1 fL [facility] Mean Cell Hemoglobin 29.5 27.5 - 32.1 pg [facility] Mean Cell Hemoglobin Concentration 32.9 32.0 - 35.7 gm/dL [facility] Platelet 166 145 - 357 x10(3)/[facility] LABORATORY RDW Standard Deviation 45.6(H) 36.0 - 45.0 [facility] LABORATORY RDW coefficient of variation 14.0(H) 11.4 - 13.8 % [facility] Mean Platelet Volume 11.9 7.6 - 12.9 [facility] NRBC% auto 0.2 % [facility] NRBC Absolute 0.020(H) 0.000 - 0.000 x10(3)/[facility] Blood specimen (specimen) 11/03/2017 11:08 AM EST 11/03/2017 11:46 AM EST Narrative Resulting Agency Comment Spec In Lab Liss Price MD HEMATOLOGY ORDERABLE S [facility] [place] [address] * APTT (11/03/2017 11:08 AM EST) [facility] Partial Thromboplastin Time 28 25 - 35 sec [facility] Comment: The recommended therapeutic range for full dose, unfractionated heparin at [facility] is 80 ? 114 seconds. The use of the anti-Xa (heparin) level rather than the PTT is recommended for monitoring anticoagulation intensity in critically ill patients receiving unfractionated heparin by continuous IV infusion. Blood specimen (specimen) 11/03/2017 11:08 AM EST 11/03/2017 11:46 AM EST Narrative Resulting Agency Comment Spec In Lab Liss Price MD HEMATOLOGY ORDERABLE S [facility] [place] [address] * Duplex for DVT, Leg, Unilat (11/03/2017 9:54 AM EST) Pathologist [facility] VB Text Report Department: Vascular Surgery Lab Patient: [id number] (ADRIEN CHEUNG) CPT: 90595 ICD10: I82.411;C20;I82 .431 Referring Physician: LISS PRICE [...] Price MD VASCULAR ORDERABLES Performing Organization Address City/[facility]/ZIP Co de Phone Number [facility] * POCT Glucose (11/03/2017 8:11 AM EST) Glucose, POC 138 65 - 199 mg/dL [facility] Comment: Supplemental ranges: <140 mg/dL before meals <180 mg/dL all other times of the day Blood specimen (specimen) 11/03/2017 8:11 AM EST 11/03/2017 8:11 AM EST Liss Price MD POINT OF CARE TEST O ZACH Performing Organization Address City/[facility]/ZIP Co de Phone Number [facility] [place] [address] * POCT Glucose (11/03/2017 4:24 AM EST) Glucose, POC 169 65 - 199 mg/dL [facility] Comment: Supplemental ranges: <140 mg/dL before meals <180 mg/dL all other times of the day Blood specimen (specimen) 11/03/2017 4:24 AM EST 11/03/2017 4:24 AM EST Liss Price MD POINT OF CARE TEST O ZACH Performing Organization Address [facility] Co de Phone Number [facility] [address] * POCT Glucose (11/02/2017 11:55 PM EST) Glucose, POC 171 65 - 199 mg/dL [facility] Comment: Supplemental ranges: <140 mg/dL before meals <180 mg/dL all other times of the day Blood specimen (specimen) 11/02/2017 11:55 PM EST 11/02/2017 11:55 PM EST Liss Price MD POINT OF CARE TEST O ZACH Performing Organization Address City/[facility] Co de Phone Number [facility] [address] * POCT Glucose (11/02/2017 7:53 PM EST) Glucose, POC 187 65 - 199 mg/dL [facility] Comment: Supplemental ranges: <140 mg/dL before meals <180 mg/dL all other times of the day Blood specimen (specimen) 11/02/2017 7:53 PM EST 11/02/2017 7:53 PM EST Liss Price MD POINT OF CARE TEST O ZACH Performing Organization Address City/[facility]/ZIP Co de Phone Number [facility] [address] * POCT Glucose (11/02/2017 6:43 PM EST) Glucose, POC 188 65 - 199 mg/dL [facility] Comment: Supplemental ranges: <140 mg/dL before meals <180 mg/dL all other times of the day Blood specimen (specimen) 11/02/2017 6:43 PM EST 11/02/2017 6:43 PM EST Liss Price MD POINT OF CARE TEST Shala SERRANO Performing Organization Address [facility]/ZIP Co de Phone Number [facility] [address] * (ABNORMAL) POCT Glucose (11/02/2017 4:38 PM EST) Glucose, POC 276(H) 65 - 199 mg/dL [facility] Comment: Supplemental ranges: <140 mg/dL before meals <180 mg/dL all other times of the day Blood specimen (specimen) 11/02/2017 4:38 PM EST 11/02/2017 4:38 PM EST Liss Price MD POINT OF CARE TEST O ZACH Performing Organization Address City/[facility]/ZIP Co de Phone Number [facility] [address] * (ABNORMAL) POCT Glucose (11/02/2017 12:18 PM EST) Glucose, POC 225(H) 65 - 199 mg/dL [facility] Comment: Supplemental ranges: <140 mg/dL before meals <180 mg/dL all other times of the day Blood specimen (specimen) 11/02/2017 12:18 PM EST 11/02/2017 12:18 PM EST Vivian Washington MD POINT OF CARE TEST ORDERABLES Performing Organization Address City/[facility]/ZIP Co de Phone Number [facility] [place] [address] * POCT Glucose (11/02/2017 7:23 AM EST) Pathologist [facility] Glucose, POC 160 65 - 199 mg/dL [facility] Comment: Supplemental ranges: <140 mg/dL before meals <180 mg/dL all other times of the day Blood specimen (specimen) 11/02/2017 7:23 AM EST 11/02/2017 7:23 AM EST Vivian Washington MD POINT OF CARE TEST ORDERABLES Performing Organization Address City/[facility]/ZIP Co de Phone Number [facility] [place] [address] * (ABNORMAL) Differential, Automated (11/02/2017 4:20 AM EST) [facility] Neutrophil % 70.0 % [facility] Neutrophil Absolute 4.74 1.70 - 6.10 x10(3)/mc L [facility] Lymph % 14.7 % [facility] Lymphocytes Abs 1.0 0.9 - 3.2 x10(3)/mc L [facility] Monocyte % 8.8 % [facility] Monocyte Abs 0.6 0.3 - 0.9 x10(3)/mc L [facility] Eos % 3.2 % [facility] Eosinophils Abs 0.2 0.0 - 0.4 x10(3)/mc L [facility] Basophil % 0.6 % [facility] Baso Absolute 0.0 0.0 - 0.1 x10(3)/mc L [facility] Immature Gran % 2.70 % [facility] Comment: Immature granulocytes(IG's)percentage and absolute count will include metamyelocytes, myelocytes, and promyelocytes. Blood smears from CBCs yielding IG's will be scanned manually for concordance. If this scan disagrees with the automated IG or if promyelocytes are noted, a manual differential will be performed. Immature Gran Absolute 0.18(H) 0.00 - 0.04 x10(3)/[facility] LAB[facility]ORY Blood specimen (specimen) 11/02/2017 4:20 AM EST 11/02/2017 4:30 AM EST Narrative Resulting Agency Comment Spec In Lab Vivian Washington MD HEMATOLOGY ORDERABL ES [facility] [address] * (ABNORMAL) Hemogram (11/02/2017 4:20 AM EST) White Blood Cell 6.8 4.0 - 9.5 x10(3)/[facility] LAB[facility] Red Blood Cell 3.01(L) 4.58 - 5.54 x10(6)/[facility] Hemoglobin 9.2(L) 13.7 - 16.5 gm/dL [facility] Hematocrit 27.7(L) 40.5 - 48.5 % [facility] Mean Cell Volume 92.0 82.9 - 93.1 fL [facility] Mean Cell Hemoglobin 30.6 27.5 - 32.1 pg [facility] Mean Cell Hemoglobin Concentration 33.2 32.0 - 35.7 gm/dL [facility] Platelet 132(L) 145 - 357 x10(3)/ L [facility] RDW Standard Deviation 47.5(H) 36.0 - 45.0 fL [facility] RDW coefficient of variation 14.1(H) 11.4 - 13.8 % [facility] Mean Platelet Volume 11.5 7.6 - 12.9 fL [facility] NRBC% auto 0.4 % [facility] NRBC Absolute 0.030(H) 0.000 - 0.000 x10(3)/mc L [facility] Blood specimen (specimen) 11/02/2017 4:20 AM EST 11/02/2017 4:30 AM EST Narrative Resulting Agency Comment Spec In Lab Vivian Washington MD HEMATOLOGY ORDERABL ES Performing Organization Address [facility] Co de Phone Number [facility] [place] [address] * Phosphorus (11/02/2017 4:20 AM EST) Phosphorus 3.7 2.5 - 4.5 mg/dL [facility] Blood specimen (specimen) 11/02/2017 4:20 AM EST 11/02/2017 4:30 AM EST Narrative Resulting Agency Comment Spec In Lab Vivian Washington MD CHEMISTRY ORDERABLE S Performing Organization Address [facility] Co de Phone Number [facility] [place] [address] * (ABNORMAL) Magnesium (11/02/2017 4:20 AM EST) Magnesium 0.68(L) 0.69 - 1.07 mmol/L [facility] Blood specimen (specimen) 11/02/2017 4:20 AM EST 11/02/2017 4:30 AM EST Narrative Resulting Agency Comment Spec In Lab Vivian Washington MD CHEMISTRY ORDERABLE S Performing Organization Address [facility] Co de Phone Number [facility] [place] [address] * (ABNORMAL) Basic Metabolic Panel (non-fasting) (11/02/2017 [...] LABORATORY Est Glomerular Filtration Rate >60 >=60 [facility] Comment: The reported eGFR should be multiplied by 1.2 for patients. The MDRD is not an appropriate measure of renal function for patients with body mass extremes or in patients with acute kidney failure. [email or web address] [email or web address] Blood specimen (specimen) 11/02/2017 4:20 AM EST 11/02/2017 4:30 AM EST Narrative Resulting Agency Comment Spec In Lab Vivian Washington MD CHEMISTRY ORDERABLE S [facility] [address] * POCT Glucose (11/02/2017 3:51 AM EST) Glucose, POC 180 65 - 199 mg/dL [facility] Comment: Supplemental ranges: <140 mg/dL before meals <180 mg/dL all other times of the day Blood specimen (specimen) 11/02/2017 3:51 AM EST 11/02/2017 3:51 AM EST Vivian Washington MD POINT OF CARE TEST ORDERABLES [facility] [address] * (ABNORMAL) Differential, Automated (11/02/2017 3:21 AM EST) Neutrophil % 72.0 % [facility] Neutrophil Absolute 4.79 1.70 - 6.10 x10(3)/[facility] LABORATORY Lymph % 13.0 % [facility] LABORATORY Lymphocytes Abs 0.9 0.9 - 3.2 x10(3)/[facility] LABORATORY Monocyte % 8.9 % [facility]ORY Monocyte Abs 0.6 0.3 - 0.9 x10(3)/[facility] LABORATORY Eos % 3.2 % [facility]ORY Eosinophils Abs 0.2 0.0 - 0.4 x10(3)/[facility] LABORATORY Basophil % 0.8 % [facility] Baso Absolute 0.0 0.0 - 0.1 x10(3)/[facility] LABORATORY Immature Gran % 2.10 % [facility] Comment: Immature granulocytes(IG's)percentage and absolute count will include metamyelocytes, myelocytes, and promyelocytes. Blood smears from CBCs yielding IG's will be scanned manually for concordance. If this scan disagrees with the automated IG or if promyelocytes are noted, a manual differential will be performed. Immature Gran Absolute 0.14(H) 0.00 - 0.04 x10(3)/ L [facility] Blood specimen (specimen) 11/02/2017 3:21 AM EST 11/02/2017 3:28 AM EST Narrative Resulting Agency Comment Spec In Lab Vivian Washington MD HEMATOLOGY ORDERABL ES Performing Organization Address City/[facility]/ZIP Co de Phone Number [facility] [address] * (ABNORMAL) Hemogram (11/02/2017 3:21 AM EST) White Blood Cell 6.6 4.0 - 9.5 x10(3)/mc L [facility] Red Blood Cell 2.84(L) 4.58 - 5.54 x10(6)/mc L [facility] Hemoglobin 9.1(L) 13.7 - 16.5 gm/dL [facility] Hematocrit 27.1(L) 40.5 - 48.5 % [facility] Mean Cell Volume 95.4(H) 82.9 - 93.1 fL [facility] Mean Cell Hemoglobin 32.0 27.5 - 32.1 pg [facility] Mean Cell Hemoglobin Concentration 33.6 32.0 - 35.7 gm/dL [facility] Platelet 123(L) 145 - 357 x10(3)/mc L [facility] RDW Standard Deviation 49.6(H) 36.0 - 45.0 fL [facility] RDW coefficient of variation 14.3(H) 11.4 - 13.8 % [facility] Mean Platelet Volume 11.5 7.6 - 12.9 fL [facility] NRBC% auto 0.3 % [facility] NRBC Absolute 0.020(H) 0.000 - 0.000 x10(3)/mc L [facility] Blood specimen (specimen) 11/02/2017 3:21 AM EST 11/02/2017 3:28 AM EST Narrative Resulting Agency Comment Spec In Lab Vivian Washington MD HEMATOLOGY ORDERABL ES Performing Organization Address City/[facility]/ZIP Co de Phone Number [facility] [place] [address] * POCT Glucose (11/01/2017 11:53 PM EST) Glucose, POC 153 65 - 199 mg/dL [facility] Comment: Supplemental ranges: <140 mg/dL before meals <180 mg/dL all other times of the day Blood specimen (specimen) 11/01/2017 11:53 PM EST 11/01/2017 11:53 PM EST Vivian Washington MD POINT OF CARE TEST ORDERABLES [facility] [place] [address] * POCT Glucose (11/01/2017 8:03 PM EST) Glucose, POC 192 65 - 199 mg/dL [facility] Comment: Supplemental ranges: <140 mg/dL before meals <180 mg/dL all other times of the day Blood specimen (specimen) 11/01/2017 8:03 PM EST 11/01/2017 8:03 PM EST Vivian Washington MD POINT OF CARE TEST ORDERABLES Performing Organization Address City/[facility]/ZIP Co de Phone Number [facility] [place] [address] * (ABNORMAL) POCT Glucose (11/01/2017 5:09 PM EST) Glucose, POC 212(H) 65 - 199 mg/dL [facility] Comment: Supplemental ranges: <140 mg/dL before meals <180 mg/dL all other times of the day Blood specimen (specimen) 11/01/2017 5:09 PM EST 11/01/2017 5:09 PM EST Vivian Washington MD POINT OF CARE TEST ORDERABLES [facility] [place] [address] * POCT Glucose (11/01/2017 11:44 AM EST) Glucose, POC 195 65 - 199 mg/dL [facility] Comment: Supplemental ranges: <140 mg/dL before meals <180 mg/dL all other times of the day Blood specimen (specimen) 11/01/2017 11:44 AM EST 11/01/2017 11:44 AM EST Vivian Washington MD POINT OF CARE TEST ORDERABLES [facility] [address] * POCT Glucose (11/01/2017 7:55 AM EST) Glucose, POC 186 65 - 199 mg/dL [facility] Comment: Supplemental ranges: <140 mg/dL before meals <180 mg/dL all other times of the day Blood specimen (specimen) 11/01/2017 7:55 AM EST 11/01/2017 7:55 AM EST Vivian Washington MD POINT OF CARE TEST ORDERABLES Performing Organization Address City/[facility]/ZIP Co de Phone Number [facility] [place] [address] * POCT Glucose (11/01/2017 4:12 AM EST) Glucose, POC 194 65 - 199 mg/dL [facility] Comment: Supplemental ranges: <140 mg/dL before meals <180 mg/dL all other times of the day Blood specimen (specimen) 11/01/2017 4:12 AM EST 11/01/2017 4:12 AM EST Vivian Washington MD POINT OF CARE TEST ORDERABLES [facility] [place] [address] * POCT Glucose (11/01/2017 12:25 AM EST) Glucose, POC 189 65 - 199 mg/dL [facility] Comment: Supplemental ranges: <140 mg/dL before meals <180 mg/dL all other times of the day Blood specimen (specimen) 11/01/2017 12:25 AM EST 11/01/2017 12:25 AM EST Vivian Washington MD POINT OF CARE TEST ORDERABLES [facility] [place] [address] * POCT Glucose (10/31/2017 8:03 PM EST) Glucose, POC 182 65 - 199 mg/dL [facility] Comment: Supplemental ranges: <140 mg/dL before meals <180 mg/dL all other times of the day Blood specimen (specimen) 10/31/2017 8:03 PM EST 10/31/2017 8:03 PM EST Vivian Washington MD POINT OF CARE TEST ORDERABLES Performing Organization Address City/[facility]/ZIP Co de Phone Number [facility] [place] [address] * (ABNORMAL) POCT Glucose (10/31/2017 4:15 PM EST) Glucose, POC 208(H) 65 - 199 mg/dL [facility] Comment: Supplemental ranges: <140 mg/dL before meals <180 mg/dL all other times of the day Blood specimen (specimen) 10/31/2017 4:15 PM EST 10/31/2017 4:15 PM EST Vivian Washington MD POINT OF CARE TEST ORDERABLES Performing Organization Address City/[facility]/ZIP Co de Phone Number [facility] [place] [address] * POCT Glucose (10/31/2017 1:12 PM EST) Glucose, POC 163 65 - 199 mg/dL [facility] Comment: Supplemental ranges: <140 mg/dL before meals <180 mg/dL all other times of the day Blood specimen (specimen) 10/31/2017 1:12 PM EST 10/31/2017 1:12 PM EST Vivian Washington MD POINT OF CARE TEST ORDERABLES Performing Organization Address City/[facility] Co de Phone Number [facility] [address] * POCT Glucose (10/31/2017 7:51 AM EST) Pathologist [facility] Glucose, POC 183 65 - 199 mg/dL [facility] Comment: Supplemental ranges: <140 mg/dL before meals <180 mg/dL all other times of the day Blood specimen (specimen) 10/31/2017 7:51 AM EST 10/31/2017 7:51 AM EST Vivian Washington MD POINT OF CARE TEST ORDERABLES Performing Organization Address City/[facility] Co de Phone Number [facility] [place] [address] * (ABNORMAL) Differential, Automated (10/31/2017 6:01 AM EST) [facility] Neutrophil % 72.6 % [facility]ORAT[facility] Neutrophil Absolute 6.35(H) 1.70 - 6.10 x10(3)/mc L [facility] Lymph % 12.6 % [facility] Lymphocytes Abs 1.1 0.9 - 3.2 x10(3)/mc L [facility] Monocyte % 10.5 % [facility] Monocyte Abs 0.9 0.3 - 0.9 x10(3)/mc L [facility] Eos % 2.7 % [facility] Eosinophils Abs 0.2 0.0 - 0.4 x10(3)/mc L [facility] Basophil % 0.7 % [facility] Baso Absolute 0.1 0.0 - 0.1 x10(3)/mc L [facility] Immature Gran % 0.90 % [facility] Comment: Immature granulocytes(IG's)percentage and absolute count will include metamyelocytes, myelocytes, and promyelocytes. Blood smears from CBCs yielding IG's will be scanned manually for concordance. If this scan disagrees with the automated IG or if promyelocytes are noted, a manual differential will be performed. Immature Gran Absolute 0.08(H) 0.00 - 0.04 x10(3)/mc L [facility] Blood specimen (specimen) 10/31/2017 6:01 AM EST 10/31/2017 6:08 AM EST Narrative Resulting Agency Comment Spec In Lab Vivian Washington MD HEMATOLOGY ORDERABL ES [facility] [place] [id number] * (ABNORMAL) Hemogram (10/31/2017 6:01 AM EST) White Blood Cell 8.8 4.0 - 9.5 x10(3)/mc L [facility] Red Blood Cell 3.43(L) 4.58 - 5.54 x10(6)/mc L [facility] Hemoglobin 10.4(L) [...] [facility] NRBC% auto 0.0 % [facility] NRBC Absolute 0.000 0.000 - 0.000 x10(3)/mc L [facility] Blood specimen (specimen) 10/31/2017 6:01 AM EST 10/31/2017 6:08 AM EST Narrative Resulting Agency Comment Spec In Lab Vivian Washington MD HEMATOLOGY ORDERABL ES Performing Organization Address [facility]/ZIP Co de Phone Number [facility] [address] * Phosphorus (10/31/2017 6:01 AM EST) Phosphorus 3.6 2.5 - 4.5 mg/dL [facility] Blood specimen (specimen) 10/31/2017 6:01 AM EST 10/31/2017 6:08 AM EST Narrative Resulting Agency Comment Spec In Lab Vivian Washington MD CHEMISTRY ORDERABLE S Performing Organization Address [facility]/ZIP Co de Phone Number [facility] [address] * Magnesium (10/31/2017 6:01 AM EST) Magnesium 0.78 0.69 - 1.07 mmol/L [facility] Blood specimen (specimen) 10/31/2017 6:01 AM EST 10/31/2017 6:08 AM EST Narrative Resulting Agency Comment Spec In Lab Vivian Washington MD CHEMISTRY ORDERABLE S Performing Organization Address [facility]/ZIP Co de Phone Number [facility] [place] [address] * (ABNORMAL) Basic Metabolic Panel (non-fasting) (10/31/2017 6:01 AM EST) Glucose 184 65 - 199 mg/dL [facility] Comment:Diabetes: >=200 mg/d L [...] LABORATORY Est Glomerular Filtration Rate >60 >=60 [facility] Comment: The reported eGFR should be multiplied by 1.2 for patients. The MDRD is not an appropriate measure of renal function for patients with body mass extremes or in patients with acute kidney failure. [email or web address].[email or web address] Aero/DHnkdep [email or web address]/DHMCnkf Blood specimen (specimen) 10/31/2017 6:01 AM EST 10/31/2017 6:08 AM EST Narrative Resulting Agency Comment Spec In Lab Vivian Washington MD CHEMISTRY ORDERABLE S [facility] [place] [address] * POCT Glucose (10/31/2017 4:02 AM EST) Glucose, POC 186 65 - 199 mg/dL [facility] Comment: Supplemental ranges: <140 mg/dL before meals <180 mg/dL all other times of the day Blood specimen (specimen) 10/31/2017 4:02 AM EST 10/31/2017 4:02 AM EST Vivian Washington MD POINT OF CARE TEST ORDERABLES Performing Organization Address [facility] Co de Phone Number [facility] [address] * POCT Glucose (10/30/2017 11:55 PM EST) Glucose, POC 169 65 - 199 mg/dL [facility] Comment: Supplemental ranges: <140 mg/dL before meals <180 mg/dL all other times of the day Blood specimen (specimen) 10/30/2017 11:55 PM EST 10/30/2017 11:55 PM EST Vivian Washington MD POINT OF CARE TEST ORDERABLES Performing Organization Address [facility] Co de Phone Number [facility] [address] * POCT Glucose (10/30/2017 7:55 PM EST) Glucose, POC 190 65 - 199 mg/dL [facility] Comment: Supplemental ranges: <140 mg/dL before meals <180 mg/dL all other times of the day Blood specimen (specimen) 10/30/2017 7:55 PM EST 10/30/2017 7:55 PM EST Vivian Washington MD POINT OF CARE TEST ORDERABLES Performing Organization Address [facility] Co de Phone Number [facility] [address] * (ABNORMAL) POCT Glucose (10/30/2017 4:54 PM EST) Glucose, POC 238(H) 65 - 199 mg/dL [facility] Comment: Supplemental ranges: <140 mg/dL before meals <180 mg/dL all other times of the day Blood specimen (specimen) 10/30/2017 4:54 PM EST 10/30/2017 4:54 PM EST Vivian Washington MD POINT OF CARE TEST ORDERABLES Performing Organization Address [facility] Co de Phone Number [facility] [address] * (ABNORMAL) POCT Glucose (10/30/2017 12:05 PM EST) Glucose, POC 216(H) 65 - 199 mg/dL [facility] Comment: Supplemental ranges: <140 mg/dL before meals <180 mg/dL all other times of the day Blood specimen (specimen) 10/30/2017 12:05 PM EST 10/30/2017 12:05 PM EST Vivian Washington MD POINT OF CARE TEST ORDERABLES Performing Organization Address [facility] de Phone Number [facility] [address] * POCT Glucose (10/30/2017 8:33 AM EST) Glucose, POC 195 65 - 199 mg/dL [facility] Comment: Supplemental ranges: <140 mg/dL before meals <180 mg/dL all other times of the day Blood specimen (specimen) 10/30/2017 8:33 AM EST 10/30/2017 8:33 AM EST Vivian Washington MD POINT OF CARE TEST ORDERABLES Performing Organization Address City/[facility] Co de Phone Number [facility] [address] * (ABNORMAL) Differential, Automated (10/30/2017 5:00 AM EST) Neutrophil % 72.9 % [facility] Neutrophil Absolute 6.11(H) 1.70 - 6.10 x10(3)/mc L [facility] Lymph % 13.9 % [facility] Lymphocytes Abs 1.2 0.9 - 3.2 x10(3)/mc L [facility] Monocyte % 12.2 % [facility] Monocyte Abs 1.0(H) 0.3 - 0.9 x10(3)/[facility] LABORATORY Eos % 0.4 % [facility] Eosinophils Abs 0.0 0.0 - 0.4 x10(3)/[facility] LABORATORY Basophil % 0.1 % [facility] Baso Absolute 0.0 0.0 - 0.1 x10(3)/[facility] LABORATORY Immature Gran % 0.50 % [facility] Comment: Immature granulocytes(IG's)percentage and absolute count will include metamyelocytes, myelocytes, and promyelocytes. Blood smears from CBCs yielding IG's will be scanned manually for concordance. If this scan disagrees with the automated IG or if promyelocytes are noted, a manual differential will be performed. Immature Gran Absolute 0.04 0.00 - 0.04 x10(3)/[facility] LABORATORY Blood specimen (specimen) 10/30/2017 5:00 AM EST 10/30/2017 5:16 AM EST Narrative Resulting Agency Comment Spec In Lab Vivian Washington MD HEMATOLOGY ORDERABL ES [facility] [address] * (ABNORMAL) Hemogram (10/30/2017 5:00 AM EST) White Blood Cell 8.4 4.0 - 9.5 x10(3)/[facility] LABORATORY Red Blood Cell 3.74(L) 4.58 - 5.54 x10(6)/[facility] LABORATORY Hemoglobin 11.2(L) 13.7 - 16.5 gm/dL [...] [facility] NRBC% auto 0.0 % [facility] NRBC Absolute 0.000 0.000 - 0.000 x10(3)/mc L [facility] Blood specimen (specimen) 10/30/2017 5:00 AM EST 10/30/2017 5:16 AM EST Narrative Resulting Agency Comment Spec In Lab Vivian Washington MD HEMATOLOGY ORDERABL ES Performing Organization Address City/[facility] Co de Phone Number [facility] [address] * Phosphorus (10/30/2017 5:00 AM EST) Phosphorus 2.9 2.5 - 4.5 mg/dL [facility] Blood specimen (specimen) 10/30/2017 5:00 AM EST 10/30/2017 5:16 AM EST Narrative Resulting Agency Comment Spec In Lab Vivian Washington MD CHEMISTRY ORDERABLE S Performing Organization Address City/[facility]/ZIP Co de Phone Number [facility] [address] * Magnesium (10/30/2017 5:00 AM EST) Magnesium 0.79 0.69 - 1.07 mmol/L [facility] Blood specimen (specimen) 10/30/2017 5:00 AM EST 10/30/2017 5:16 AM EST Narrative Resulting Agency Comment Spec In Lab Vivian Washington MD CHEMISTRY ORDERABLE S [facility] [address] * (ABNORMAL) Basic Metabolic Panel (non-fasting) (10/30/2017 [...] LABORATORY Est Glomerular Filtration Rate >60 >=60 [facility] Comment: The reported eGFR should be multiplied by 1.2 for patients. The MDRD is not an appropriate measure of renal function for patients with body mass extremes or in patients with acute kidney failure. [email or web address] Aero/DHnkdep [email or web address]/DHMCnkf Blood specimen (specimen) 10/30/2017 5:00 AM EST 10/30/2017 5:16 AM EST Narrative Resulting Agency Comment Spec In Lab Vivian Washington MD CHEMISTRY ORDERABLE S Performing Organization Address [facility] Co de Phone Number [facility] [address] * POCT Glucose (10/30/2017 4:17 AM EST) Glucose, POC 198 65 - 199 mg/dL [facility] Comment: Supplemental ranges: <140 mg/dL before meals <180 mg/dL all other times of the day Blood specimen (specimen) 10/30/2017 4:17 AM EST 10/30/2017 4:17 AM EST Vivian Washington MD POINT OF CARE TEST ORDERABLES Performing Organization Address [facility] Co de Phone Number [facility] [address] * (ABNORMAL) POCT Glucose (10/30/2017 12:01 AM EST) Glucose, POC 236(H) 65 - 199 mg/dL [facility] Comment: Supplemental ranges: <140 mg/dL before meals <180 mg/dL all other times of the day Blood specimen (specimen) 10/30/2017 12:01 AM EST 10/30/2017 12:01 AM EST Vivian Washington MD POINT OF CARE TEST ORDERABLES Performing Organization Address [facility] Co de Phone Number [facility] [address] * (ABNORMAL) POCT Glucose (10/29/2017 8:44 PM EST) Glucose, POC 243(H) 65 - 199 mg/dL [facility] Comment: Supplemental ranges: <140 mg/dL before meals <180 mg/dL all other times of the day Blood specimen (specimen) 10/29/2017 8:44 PM EST 10/29/2017 8:44 PM EST Vivian Washington MD POINT OF CARE TEST ORDERABLES Performing Organization Address City/[facility]/ZIP Co de Phone Number [facility] [address] * (ABNORMAL) POCT Glucose (10/29/2017 6:09 PM EST) Glucose, POC 281(H) 65 - 199 mg/dL [facility] Comment: Supplemental ranges: <140 mg/dL before meals <180 mg/dL all other times of the day Blood specimen (specimen) 10/29/2017 6:09 PM EST 10/29/2017 6:09 PM EST Vivian Washington MD POINT OF CARE TEST ORDERABLES Performing Organization Address [facility] Co de Phone Number [facility] [address] * (ABNORMAL) POCT Glucose (10/29/2017 3:50 PM EST) Glucose, POC 245(H) 65 - 199 mg/dL [facility] Comment: Supplemental ranges: <140 mg/dL before meals <180 mg/dL all other times of the day Blood specimen (specimen) 10/29/2017 3:50 PM EST 10/29/2017 3:50 PM EST Vivian Washington MD POINT OF CARE TEST ORDERABLES Performing Organization Address [facility] Co de Phone Number [facility] [address] * (ABNORMAL) POCT Glucose (10/29/2017 3:19 PM EST) Glucose, POC 211(H) 65 - 199 mg/dL [facility] Comment: Supplemental ranges: <140 mg/dL before meals <180 mg/dL all other times of the day Blood specimen (specimen) 10/29/2017 3:19 PM EST 10/29/2017 3:19 PM EST Vivian Washington MD POINT OF CARE TEST ORDERABLES Performing Organization Address City/State/[facility] Co de Phone Number [facility] [address] * (ABNORMAL) POCT Glucose (10/29/2017 2:30 PM EST) Glucose, POC 217(H) 65 - 199 mg/dL [facility] Comment: Supplemental ranges: <140 mg/dL before meals <180 mg/dL all other times of the day Blood specimen (specimen) 10/29/2017 2:30 PM EST 10/29/2017 2:30 PM EST Vivian Washington MD POINT OF CARE TEST ORDERABLES Performing Organization Address [facility] de Phone Number [facility] [address] * (ABNORMAL) POCT Glucose (10/29/2017 2:11 PM EST) Glucose, POC 207(H) 65 - 199 mg/dL [facility] Comment: Supplemental ranges: <140 mg/dL before meals <180 mg/dL all other times of the day Blood specimen (specimen) 10/29/2017 2:11 PM EST 10/29/2017 2:11 PM EST Vivian Washington MD POINT OF CARE TEST ORDERABLES Performing Organization Address [facility] Co de Phone Number [facility] [address] * (ABNORMAL) POCT Glucose (10/29/2017 1:49 PM EST) Glucose, POC 208(H) 65 - 199 mg/dL [facility] Comment: Supplemental ranges: <140 mg/dL before meals <180 mg/dL all other times of the day Blood specimen (specimen) 10/29/2017 1:49 PM EST 10/29/2017 1:49 PM EST Vivian Washington MD POINT OF CARE TEST ORDERABLES [facility] [place] [address] * Specimen to Pathology (surgical or derm) (10/29/2017 1:46 PM EST) AP Specimen 10/29/2017 1:46 PM EST 10/29/2017 1:46 PM EST Narrative [facility] - 10/29/2017 1:46 PM EST Specimen requisition ordered. ??Separate Pathology report to follow Vivian Washington MD PATHOLOGY/CYTOLOGY ORDERABLES Performing Organization Address [facility] de Phone Number [facility] [address] * Surgical Pathology Report (10/29/2017 1:11 PM EST) Final Diagnosis [id number] ? Location: [id number] The signing pathologist has (i) examined the relevant preparation(s) for the specimen(s) and (ii) rendered or confirmed the diagnosis(es). . ?Surgical Pathology DIAGNOSIS A - Appendix within normal limits. B - ??Fibromembranous tissue, hernia sac , site not specified. ? Gross surgical pathology examination. Electronically signed by: ??Adrian FUNES PhD, [place] Verified: ??11/03/2017 ?Pathologist Performed at: ??-[facility] Dept. of Pathology, [place], [place] CLINICAL INFORMATION Specimen Submitted: A - [...] ng: (A1) tip of appendix, bisected; (A2) Node Js Developer cross sections of appendix. (R2) ??knr B [...] Washington MD PATHOLOGY/CYTOLOGY ORDERABLES Performing Organization Address [facility] Co de Phone Number [facility] [place] [address] * Specimen to Pathology (surgical or derm) (10/29/2017 1:11 PM EST) AP Specimen 10/29/2017 1:11 PM EST 10/29/2017 1:11 PM EST Narrative [facility] - 10/29/2017 1:11 PM EST Specimen requisition ordered. ??Separate Pathology report to follow Vivian Washington MD PATHOLOGY/CYTOLOGY ORDERABLES Performing Organization Address [facility]/ZIP Co de Phone Number [facility] [place] [address] * (ABNORMAL) POCT Glucose (10/29/2017 1:05 PM EST) Glucose, POC 207(H) 65 - 199 mg/dL [facility] Comment: Supplemental ranges: <140 mg/dL before meals <180 mg/dL all other times of the day Blood specimen (specimen) 10/29/2017 1:05 PM EST 10/29/2017 1:05 PM EST Vivian Washington MD POINT OF CARE TEST ORDERABLES [facility] [place] [address] * (ABNORMAL) BLOOD GAS 2 ARTERIAL (10/29/2017 [...] [facility] Temp Art 36.5 Celsius [facility] Blood specimen (specimen) 10/29/2017 11:47 AM EST 10/29/2017 11:47 AM EST Vivian Washington MD POINT OF CARE TEST ORDERABLES Performing Organization Address [facility] Co de Phone Number [facility] [place] [address] * POCT Glucose (10/29/2017 10:12 AM EST) Glucose, POC 199 65 - 199 mg/dL [facility] Comment: Supplemental ranges: <140 mg/dL before meals <180 mg/dL all other times of the day Blood specimen (specimen) 10/29/2017 10:12 AM EST 10/29/2017 10:12 AM EST Vivian Washington MD POINT OF CARE TEST ORDERABLES Performing Organization Address [facility] Co de Phone Number [facility] [address] * XR Fluoro No Rad <1Hr - OR Use (10/29/2017 9:27 AM EST) Narrative RAD - 10/29/2017 9:27 AM EST This order does not need a radiologist interpretation. ?? Vivian Washington MD IMG FLUORO ORDERABL ES Performing Organization Address [facility] Co de Phone Number [place], [place] * (ABNORMAL) POCT Glucose (10/29/2017 8:16 AM EST) Glucose, POC 239(H) 65 - 199 mg/dL [facility] Comment: Supplemental ranges: <140 mg/dL before meals <180 mg/dL all other times of the day Blood specimen (specimen) 10/29/2017 8:16 AM EST 10/29/2017 8:16 AM EST Vivian Washington MD POINT OF CARE TEST ORDERABLES Performing Organization Address City/[facility]/ZIP Co de Phone Number [facility] [place] [address] * POCT Glucose (10/29/2017 4:25 AM EST) Glucose, POC 180 65 - 199 mg/dL [facility] Comment: Supplemental ranges: <140 mg/dL before meals <180 mg/dL all other times of the day Blood specimen (specimen) 10/29/2017 4:25 AM EST 10/29/2017 4:25 AM EST Vivian Washington MD POINT OF CARE TEST ORDERABLES Performing Organization Address City/[facility] Co de Phone Number [facility] [place] [address] * Differential, Automated (10/29/2017 2:40 AM EST) [facility] Neutrophil % 70.6 % [facility] Neutrophil Absolute 5.12 1.70 - 6.10 x10(3)/[facility] Lymph % 15.0 % [facility] Lymphocytes Abs 1.1 0.9 - 3.2 x10(3)/[facility] Monocyte % 12.4 % [facility] Monocyte Abs 0.9 0.3 - 0.9 x10(3)/[facility] Eos % 1.0 % [facility] Eosinophils Abs 0.1 0.0 - 0.4 x10(3)/[facility] Basophil % 0.6 % [facility] Baso Absolute 0.0 0.0 - 0.1 x10(3)/[facility] Immature Gran % 0.40 % [facility] Comment: Immature granulocytes(IG's)percentage and absolute count will include metamyelocytes, myelocytes, and promyelocytes. Blood smears from CBCs yielding IG's will be scanned manually for concordance. If this scan disagrees with the automated IG or if promyelocytes are noted, a manual differential will be performed. Immature Gran Absolute 0.03 0.00 - 0.04 x10(3)/mcL [facility] Blood specimen (specimen) 10/29/2017 2:40 AM EST 10/29/2017 2:48 AM EST Narrative Resulting Agency Comment Spec In Lab Vivian Washington MD HEMATOLOGY ORDERABL ES [facility] [place] [address] * (ABNORMAL) Hemogram (10/29/2017 2:40 AM EST) White Blood Cell 7.2 4.0 - 9.5 x10(3)/mc L [facility] Red Blood Cell 3.53(L) 4.58 - 5.54 x10(6)/mc L [facility] Hemoglobin 10.6(L) [...] HOSPITAL LABORATORY Platelet 160 145 - 357 x10(3)/mc L [facility] RDW Standard Deviation 45.0 36.0 - 45.0 fL [facility] RDW coefficient of variation 13.8 11.4 - 13.8 % [facility] Mean Platelet Volume 10.1 7.6 - 12.9 fL [facility] NRBC% auto 0.0 % [facility] NRBC Absolute 0.000 0.000 - 0.000 x10(3)/mc L [facility] Blood specimen (specimen) 10/29/2017 2:40 AM EST 10/29/2017 2:48 AM EST Narrative Resulting Agency Comment Spec In Lab Vivian Washington MD HEMATOLOGY ORDERABL ES Performing Organization Address [facility] Co de Phone Number [facility] [address] * (ABNORMAL) Phosphorus (10/29/2017 2:40 AM EST) Phosphorus 2.1(L) 2.5 - 4.5 mg/dL [facility] Blood specimen (specimen) 10/29/2017 2:40 AM EST 10/29/2017 2:48 AM EST Narrative Resulting Agency Comment Spec In Lab Vivian Washington MD CHEMISTRY ORDERABLE S Performing Organization Address [facility] Co de Phone Number [facility] [address] * Magnesium (10/29/2017 2:40 AM EST) Magnesium 0.70 0.69 - 1.07 mmol/L [facility] Blood specimen (specimen) 10/29/2017 2:40 AM EST 10/29/2017 2:48 AM EST Narrative Resulting Agency Comment Spec In Lab Vivian Washington MD CHEMISTRY ORDERABLE S Performing Organization Address [facility] Co de Phone Number [facility] [address] * (ABNORMAL) Comprehensive metabolic panel (non-fasting) (10/29/2017 [...] or in patients with acute kidney failure. [email or web address] Blood specimen (specimen) 10/29/2017 2:40 AM EST 10/29/2017 2:48 AM EST Narrative Resulting Agency Comment Spec In Lab Vivian Washington MD CHEMISTRY ORDERABLE S [facility] [address] * POCT Glucose (10/28/2017 11:54 PM EST) Glucose, POC 171 65 - 199 mg/dL [facility] Comment: Supplemental ranges: <140 mg/dL before meals <180 mg/dL all other times of the day Blood specimen (specimen) 10/28/2017 11:54 PM EST 10/28/2017 11:54 PM EST Vivian Washington MD POINT OF CARE TEST ORDERABLES [facility] [address] * POCT Glucose (10/28/2017 4:23 PM EST) Glucose, POC 88 65 - 199 mg/dL [facility] Comment: Supplemental ranges: <140 mg/dL before meals <180 mg/dL all other times of the day Blood specimen (specimen) 10/28/2017 4:23 PM EST 10/28/2017 4:23 PM EST Vivian Washington MD POINT OF CARE TEST ORDERABLES Performing Organization Address City/State/[facility] Co de Phone Number [facility] [address] * Place PICC Line: Contact Vascular Access Page [phone] Extremity to exclude: No restrictions; Is PICC [...] to the planned procedure. Hand Hygiene: The bar turner did perform hand hygiene prior to line insertion. Catheter type: PICC Lot number: [id number] Procedure Technique: Skin was prepped with chlorhexidine. [...] JOYNER RN 10/28/2017 Vivian Washington MD PROCEDURE/MINOR MYA GICAL ORDERABLES * XR PICC Placement Over [...] CARE TEST ORDERABLES [facility] [place] [address] * CEA (10/28/2017 8:47 AM EST) Carcinoembryonic [...] MD CHEMISTRY ORDERABLE S Performing Organization Address [facility] Co de Phone Number [facility] [place] [address] * (ABNORMAL) Prealbumin (10/28/2017 8:47 AM EST) [facility] Prealbumin 15(L) 20 - 40 mg/dL [facility] Comment: Prealbumin levels are generally lower in the pediatric population; adult concentrations are usually attained near puberty. Blood specimen (specimen) 10/28/2017 8:47 AM EST 10/28/2017 8:51 AM EST Narrative Resulting Agency Comment Spec In Lab Vivian Washington MD CHEMISTRY ORDERABLE S Performing Organization Address [facility] Co de Phone Number [facility] [address] * (ABNORMAL) Albumin Level (10/28/2017 8:47 AM EST) [facility] Albumin 2.9(L) 3.2 - 5.2 gm/dL [facility] Blood specimen (specimen) 10/28/2017 8:47 AM EST 10/28/2017 8:51 AM EST Narrative Resulting Agency Comment Spec In Lab Vivian Washington MD CHEMISTRY ORDERABLE S Performing Organization Address [facility] Co de Phone Number [facility] [place] [address] * POCT Glucose (10/28/2017 8:01 AM EST) Pathologist [facility] Glucose, POC 84 65 - 199 mg/dL [facility] Comment: Supplemental ranges: <140 mg/dL before meals <180 mg/dL all other times of the day Blood specimen (specimen) 10/28/2017 8:01 AM EST 10/28/2017 8:01 AM EST Vivian Washington MD POINT OF CARE TEST ORDERABLES Performing Organization Address City/[facility]/[place] [address] * (ABNORMAL) Differential, Automated (10/28/2017 1:55 AM EST) Neutrophil % 73.6 % [facility] Neutrophil Absolute 5.44 1.70 - 6.10 x10(3)/mc L [facility] Lymph % 12.5 % [facility] Lymphocytes Abs 0.9 0.9 - 3.2 x10(3)/[facility] Monocyte % 11.7 % [facility] Monocyte Abs 0.9 0.3 - 0.9 x10(3)/[facility] Eos % 0.8 % [facility] Eosinophils Abs 0.1 0.0 - 0.4 x10(3)/[facility] Basophil % 0.7 % [facility] Baso Absolute 0.0 0.0 - 0.1 x10(3)/[facility] Immature Gran % 0.70 % [facility] Comment: Immature granulocytes(IG's)percentage and absolute count will include metamyelocytes, myelocytes, and promyelocytes. Blood smears from CBCs yielding IG's will be scanned manually for concordance. If this scan disagrees with the automated IG or if promyelocytes are noted, a manual differential will be performed. Immature Gran Absolute 0.05(H) 0.00 - 0.04 x10(3)/ L [facility] Blood specimen (specimen) 10/28/2017 1:55 AM EST 10/28/2017 2:08 AM EST Narrative Resulting Agency Comment Spec In Lab Vivian Washington MD HEMATOLOGY ORDERABL ES [facility] [place] [address] * (ABNORMAL) Hemogram (10/28/2017 1:55 AM EST) White Blood Cell 7.4 4.0 - 9.5 x10(3)/ L [facility] Red Blood Cell 3.79(L) 4.58 - 5.54 x10(6)/[facility] Hemoglobin 11.3(L) 13.7 - 16.5 gm/dL [facility] Hematocrit 32.8(L) 40.5 - 48.5 % [facility] Mean Cell Volume 86.5 82.9 - 93.1 fL [facility] Mean Cell Hemoglobin 29.8 27.5 - 32.1 pg [facility] Mean Cell Hemoglobin Concentration 34.5 32.0 - 35.7 gm/dL [facility] Platelet 178 145 - 357 x10(3)/[facility] LABORATORY RDW Standard Deviation 42.9 36.0 - 45.0 [facility]ORY RDW coefficient of variation 13.7 11.4 - 13.8 % [facility] Mean Platelet Volume 10.3 7.6 - 12.9 [facility] NRBC% auto 0.0 % [facility] NRBC Absolute 0.000 0.000 - 0.000 x10(3)/[facility] Blood specimen (specimen) 10/28/2017 1:55 AM EST 10/28/2017 2:08 AM EST Narrative Resulting Agency Comment Spec In Lab Vivian Washington MD HEMATOLOGY ORDERABL ES [facility] [place] [address] * (ABNORMAL) Phosphorus (10/28/2017 1:55 AM EST) Pathologist [facility] Phosphorus 2.4(L) 2.5 - 4.5 mg/dL [facility] Blood specimen (specimen) 10/28/2017 1:55 AM EST 10/28/2017 2:08 AM EST Narrative Resulting Agency Comment Spec In Lab Vivian Washington MD CHEMISTRY ORDERABLE S Performing Organization Address [facility] Co de Phone Number [facility] [address] * (ABNORMAL) Magnesium (10/28/2017 1:55 AM EST) Magnesium 0.62(L) 0.69 - 1.07 mmol/L [facility] Blood specimen (specimen) 10/28/2017 1:55 AM EST 10/28/2017 2:08 AM EST Narrative Resulting Agency Comment Spec In Lab Vivian Washington MD CHEMISTRY ORDERABLE S Performing Organization Address [facility] Co de Phone Number [facility] [place] [address] * (ABNORMAL) Basic Metabolic Panel (non-fasting) (10/28/2017 1:55 AM EST) Glucose 82 65 - 199 mg/dL [facility] [...] LABORATORY Est Glomerular Filtration Rate >60 >=60 [facility] Comment: The reported eGFR should be multiplied by 1.2 for patients. The MDRD is not an appropriate measure of renal function for patients with body mass extremes or in patients with acute kidney failure. [email or web address] Blood specimen (specimen) 10/28/2017 1:55 AM EST 10/28/2017 2:08 AM EST Narrative Resulting Agency Comment Spec In Lab Vivian Washington MD CHEMISTRY ORDERABLE S Performing Organization Address City/[facility]/ZIP Co de Phone Number [facility] [place] [address] * POCT Glucose (10/27/2017 8:02 PM EST) Glucose, POC 92 65 - 199 mg/dL [facility] Comment: Supplemental ranges: <140 mg/dL before meals <180 mg/dL all other times of the day Blood specimen (specimen) 10/27/2017 8:02 PM EST 10/27/2017 8:02 PM EST Vivian Washington MD POINT OF CARE TEST ORDERABLES [facility] [place] [address] * Phosphorus (10/27/2017 4:39 PM EST) Phosphorus 3.6 2.5 - 4.5 mg/dL [facility] Blood specimen (specimen) 10/27/2017 4:39 PM EST 10/27/2017 4:52 PM EST Narrative Resulting Agency Comment Spec In Lab Swetha Price MD CHEMISTRY ORDERABLES Performing Organization Address [facility]/ZIP Co de Phone Number [facility] [place] [address] * (ABNORMAL) Magnesium (10/27/2017 4:39 PM EST) Pathologist [facility] Magnesium 0.56(L) 0.69 - 1.07 mmol/L [facility] Blood specimen (specimen) 10/27/2017 4:39 PM EST 10/27/2017 4:52 PM EST Narrative Resulting Agency Comment Spec In Lab Swetha Price MD CHEMISTRY ORDERABLES Performing Organization Address [facility] Co de Phone Number [facility] [place] [address] * (ABNORMAL) Basic Metabolic Panel (non-fasting) (10/27/2017 4:39 PM EST) [facility] Glucose 96 65 - 199 mg/dL [facility] [...] LABORATORY Est Glomerular Filtration Rate 35(L) >=60 [facility] Comment: The reported eGFR should be multiplied by 1.2 for patients. The MDRD is not an appropriate measure of renal function for patients with body mass extremes or in patients with acute kidney failure. [email or web address] Blood specimen (specimen) 10/27/2017 4:39 PM EST 10/27/2017 4:52 PM EST Narrative Resulting Agency Comment Spec In Lab Swetha Price MD CHEMISTRY ORDERABLES Performing Organization Address [facility]/ZIP Co de Phone Number [facility] [place] [address] * POCT Glucose (10/27/2017 4:11 PM EST) Glucose, POC 96 65 - 199 mg/dL [facility] Comment: Supplemental ranges: <140 mg/dL before meals <180 mg/dL all other times of the day Blood specimen (specimen) 10/27/2017 4:11 PM EST 10/27/2017 4:11 PM EST Vivian Washington MD POINT OF CARE TEST ORDERABLES Performing Organization Address [facility] Co de Phone Number [facility] [place] [address] * XR Abdomen 1 view (Generic) (10/27/2017 [...] at 10/27/2017 3:26 PM Electronically signed by: YESSICA TRIPLETT, Radiology, at112/27/2016 3:26 PM Swetha Price MD [...] separately reported abdominal radiograph. Swetha Price MD IMG DX ORDERABLES * EKG 12 Lead (10/27/2017 2:53 PM EST) Ventricular rate 86 BPM MUSE SYSTEM Atrial Rate 86 BPM MUSE SYSTEM P-R Interval 146 ms MUSE SYSTEM QRS Duration 94 ms MUSE SYSTEM Q-T Interval 372 ms MUSE SYSTEM QTC Calculated (Bezet) 445 ms MUSE SYSTEM Calculated P Garner 26 degrees MUSE SYSTEM Calculated R Garner 45 degrees MUSE SYSTEM Calculated T Garner 25 degrees MUSE SYSTEM INTERPRETATION Normal sinus rhythm Possible Inferior infarct , age undetermined Abnormal R wave progression Possible Anterior infarct , age undetermined Abnormal ECG When compared with ECG of 06-APR-2013 16:45, Possible Anterior infarct is now Present No significant change was found Confirmed by MD Lyla, Paul Carballo ([id number]) on 10/27/2017 5:01:51 PM MUSE SYSTEM 10/27/2017 2:53 PM EST 10/27/2017 5:01 PM EST Swetha Price MD ECG ORDERABLES MUSE SYSTEM * ABORH Recheck Status (10/27/2017 11:34 AM EST) ABORH Type Recheck Completed [facility] Blood specimen (specimen) 10/27/2017 11:34 AM EST 10/27/2017 3:40 PM EST Narrative Resulting Agency Comment Spec In Lab Swetha Price MD BLOOD BANK LAB ORDER CINDA Performing Organization Address City/[facility]/ZIP Co de Phone Number [facility] [place] [address] * Antibody screen (10/27/2017 11:34 AM EST) Ab Screen Interp Negative [facility] Expires at [id number] on: 10/30/2017 [facility] Blood specimen (specimen) 10/27/2017 11:34 AM EST 10/27/2017 3:40 PM EST Narrative Resulting Agency Comment Spec In Lab Swetha Price MD BLOOD BANK LAB ORDER CINDA [facility] [place] [address] * ABO/Rh Typing (10/27/2017 11:34 AM EST) ABORH Type A Neg [facility] Blood specimen (specimen) 10/27/2017 11:34 AM EST 10/27/2017 3:40 PM EST Narrative Resulting Agency Comment Spec In Lab Swetha Price MD BLOOD BANK LAB ORDER CINDA [facility] [place] [address] * CT Abdomen & Pelvis wo Contrast [...] Cells Raw Data, Urine 1 <=4 /HPF [facility] Transitional Epithelial Cells, Urine <1 [...] Price MD URINE ORDERABLES Performing Organization Address City/State/[facility] Co de Phone Number [facility] [place] [address] * (ABNORMAL) Urinalysis with reflex Culture (10/27/2017 [...] HOSPITAL LABORATORY Leukocytes, Urine Dipstick Small(A) Negative [facility] Appearance, Urine Dipstick Clear Clear [facility] Specific [place] Urine Automated 1.005 1.002 - 1.030 [facility] Color, Urine Dipstick Straw Yellow [facility] Reflex to Culture No [facility] Urine specimen obtained by clean catch procedure (specimen) 10/27/2017 10:16 AM EST 10/27/2017 10:32 AM EST Narrative Resulting Agency Comment Spec In Lab Swetha Price MD URINE ORDERABLES Performing Organization Address [facility] de Phone Number [facility] [place] [address] * L-Lactate2 Whole Blood (10/27/2017 7:41 AM EST) Pathologist [facility] Lactate WB 1.1 0.5 - 2.2 mmol/L [facility] Blood specimen (specimen) 10/27/2017 7:41 AM EST 10/27/2017 7:41 AM EST Swetha Price MD CHEMISTRY ORDERABLES Performing Organization Address [facility] de Phone Number [facility] [place] [address] * Hepatic Function Panel (10/27/2017 7:20 AM EST) Pathologist [facility] Protein, Total 6.7 6.1 - 8.0 gm/dL [...] MD CHEMISTRY ORDERABLES [facility] [place] [address] * Lipase (10/27/2017 7:20 AM EST) Pathologist [facility] Lipase 27 0 - 60 unit/L [facility] Blood specimen (specimen) Venous Draw / Unknown 10/27/2017 7:20 AM EST 10/27/2017 7:32 AM EST Narrative Resulting Agency Comment Spec In Lab Swetha Price MD CHEMISTRY ORDERABLES Performing Organization Address [facility]/ZIP Co de Phone Number [facility] [place] [address] * Blue Tube HOLD (10/27/2017 7:20 AM EST) [facility] Blue Hold Sample in lab. [facility] Blood specimen (specimen) Venous Draw / Unknown 10/27/2017 7:20 AM EST 10/27/2017 7:34 AM EST Swetah Price MD HEMATOLOGY ORDERABLE S Performing Organization Address City/[facility]/ZIP Co de Phone Number [facility] [place] [address] * (ABNORMAL) Differential, Automated (10/27/2017 7:20 AM EST) Pathologist [facility] Neutrophil % 82.2 % [facility] Neutrophil Absolute 13.12(H) 1.70 - 6.10 x10(3)/mc L [facility] Lymph % 8.0 % [facility] Lymphocytes Abs 1.3 0.9 - 3.2 x10(3)/mc L [facility] Monocyte % 8.9 % [facility] Monocyte Abs 1.4(H) 0.3 - 0.9 x10(3)/mc L [facility] Eos % 0.1 % [facility] Eosinophils Abs 0.0 0.0 - 0.4 x10(3)/[facility] Basophil % 0.2 % [facility] Baso Absolute 0.0 0.0 - 0.1 x10(3)/[facility] Immature Gran % 0.60 % [facility] Comment: Immature granulocytes(IG's)percentage and absolute count will include metamyelocytes, myelocytes, and promyelocytes. Blood smears from CBCs yielding IG's will be scanned manually for concordance. If this scan disagrees with the automated IG or if promyelocytes are noted, a manual differential will be performed. Immature Gran Absolute 0.10(H) 0.00 - 0.04 x10(3)/[facility] Blood specimen (specimen) 10/27/2017 7:20 AM EST 10/27/2017 7:32 AM EST Narrative Resulting Agency Comment Spec In Lab Swetha Price MD HEMATOLOGY ORDERABLE S [facility] [place] [place] [address] * (ABNORMAL) Hemogram (10/27/2017 7:20 AM EST) White Blood Cell 16.0(H) 4.0 - 9.5 x10(3)/[facility] Red Blood Cell 4.49(L) 4.58 - 5.54 x10(6)/[facility] Hemoglobin 13.6(L) 13.7 - 16.5 gm/dL [...] [facility] NRBC% auto 0.0 % [facility] NRBC Absolute 0.000 0.000 - 0.000 x10(3)/mc L [facility] Blood specimen (specimen) 10/27/2017 7:20 AM EST 10/27/2017 7:32 AM EST Narrative Resulting Agency Comment Spec In Lab Swetha Price MD HEMATOLOGY ORDERABLE S [facility] [place] [address] * (ABNORMAL) Basic Metabolic Panel (non-fasting) (10/27/2017 [...] LABORATORY Est Glomerular Filtration Rate 19(L) >=60 [facility] Comment: The reported eGFR should be multiplied by 1.2 for patients. The MDRD is not an appropriate measure of renal function for patients with body mass extremes or in patients with acute kidney failure. http://[email or web address] http://[email or web address] Blood specimen (specimen) 10/27/2017 7:20 AM EST 10/27/2017 7:32 AM EST Narrative Resulting Agency Comment Spec In Lab Swetha Price MD CHEMISTRY ORDERABLES [facility] [place] [address] * POCT urine dipstick (10/27/2017) POC Sp [place] 1.015 1.002 - 1.030 POC pH, UA [...] RDERABLES documented in this encounter Visit Diagnoses Not on filedocumented in this encounter Admitting Diagnoses Diagnosis SBO (small bowel obstruction) Unspecified intestinal obstruction documented in this encounter Administered Medications Inactive Administered Medications - up to 3 most recent administrations Medication Order MAR Action Action Date Dose Rate Site acetaminophen (TYLENOL) tablet 975 mg 975 mg, Oral, EVERY 6 HOURS SCHEDULED, First dose on 10/31/17 at 0845, Until Discontinued, Maximum dose of [...] Given 11/03/2017 11:57 AM EST 20 mg dextrose 50% IV syringe 25-50 mL 25-50 mL (12.5-25 g), Intravenous, EVERY 1 HOUR PRN, Starting on Thu10/27/17 at 1555, Until Thu11/05/17 at 1654, Low blood sugar, For BG [...] Given 11/04/2017 8:19 PM EST 100 mg glucagon (human recombinant) injection SolR 1 mg 1 mg, Intramuscular, EVERY 1 HOUR PRN, Starting on Thu10/27/17 at 1555, Until Thu11/05/17 at 1654, Low blood sugar, For BG [...] the duration of the active insulin., Routine HYDROmorphone (DILAUDID) injection 0.5 mg 0.5 mg, Intravenous, EVERY 4 HOURS PRN, Starting on Thu10/27/17 at 1555, Until Thu11/05/17 at 1654, Pain, STAT Given 10/31/2017 1:18 PM EST 0.5 mg Given 10/31/2017 6:54 AM EST 0.5 mg Given 10/30/2017 10:45 PM EST 0.5 mg ibuprofen (ADVIL;MOTRIN) tablet 600 [...] Given 11/04/2017 12:33 PM EST 2 Units lidocaine (XYLOCAINE) 2 % viscous solution 15 [...] Given 11/04/2017 8:13 AM EST 10 mg ondansetron (ZOFRAN) injection 4 mg 4 mg, Intravenous, EVERY 8 HOURS PRN, Starting on Thu10/27/17 at 1429, Until Thu11/05/17 at 1654, Nausea, Vomiting, Routine Given 11/03/2017 2:25 AM EST 4 mg Given 10/27/2017 3:32 PM EST 4 mg oxyCODONE (ROXICODONE) immediate release tablet 10 mg 10 mg, Oral, EVERY 4 HOURS PRN, Starting on Thu11/02/17 at 0848, Until Thu11/05/17 at 1654, Pain, severe pain (7-10), May [...] Given 11/04/2017 4:26 PM EST 17 g sodium chloride 0.9 % flush 5 mL 5 mL, Intravenous, 2 TIMES DAILY, First dose on Thu10/27/17 at 2100, Until Discontinued, Routine Given 11/05/2017 8:13 AM EST 5 mLs Given 11/04/2017 8:28 PM EST 5 mLs Given 11/04/2017 8:15 AM EST 5 mLs documented in this encounter Active and Recently [...] Renetta Porter RN)1717 (Given - Provider: Courtney Mcleod RN) 0032 (Given - Provider: Cherri Marie RN)0609 [...] 0809 (Given - Provider: Courtney Mcleod RN) docusate sodium (COLACE) capsule 100 mg 100 [...] Riley Gonzales RN)1240 (Given - Provider: Renetta Porter, RN)2018 (Given - Provider: Junie Gloria, GET) 0232 (Given - Provider: Cherri Marie, GET)0814 (Given - Provider: June Leroy RN)1502 (Given - Provider: June Leroy RN)2019 (Given - Provider: Mariel Fitzgerald, GET) 0140 (Given - Provider: Mariel Fitzgerald, GET)0809 (Given - Provider: Courtney Mcleod RN)1400 (Due - Provider: Mark Bales [facility]) insulin lispro (humaLOG) VIAL injection [...] Gonzales RN)0815 (Not Given - Provider: Renetta Porter, RN - Reason: Order parameters not met)1158 (Given - Provider: Renetta Porter, RN)1615 (Not Given - Provider: Renetta Porter RN - Reason: Order parameters not met)2018 (Given - Provider: Junie Gloria, GET) 0032 (Given - Provider: Cherri Marie, GET)0349 (Not Given - Provider: Cherri Marie, GET - Reason: Order parameters not met)0814 (Given - Provider: June Leroy RN)1233 (Given - Provider: June Leroy RN)162 (Given - Provider: June Leroy RN)2014 (Not [...] Routine 1157 (Given - Provider: Renetta Porter RN)2017 (Given - Provider: Junie Gloria RN) 0813 (Given - Provider: June Leroy RN)2017 (Given - Provider: Mariel Fitzgerald RN) 0810 (Given - Provider: Courtney Mcleod, GET) pantoprazole (PROTONIX) injection 40 mg 40 mg, Intravenous, DAILY, First dose on Thu10/27/17 at 1630, Until Discontinued 0837 (Given - Provider: Renetta Porter RN) 0810 (Given - Provider: June Leroy RN) 0809 (Given - Provider: Courtney Mcleod RN) polyethylene glycol (MIRALAX) packet 17 g 17 g, Oral, DAILY, First dose on Thu11/04/17 at 1600, Until Discontinued, Routine 1626 (Given - Provider: June Leroy RN) 0809 (Given - Provider: Courtney Mcleod, GET) sodium chloride 0.9 % flush 5 mL 5 mL, Intravenous, 2 TIMES DAILY, First dose on Thu10/27/17 at 2100, Until Discontinued, Routine 0837 (Given - Provider: Renetta Porter RN)2021 (Given - Provider: Junie Gloria RN) 0815 (Given - Provider: June Leroy RN)2027 (Given - Provider: Mariel Fitzgerald RN) 08 (Given - Provider: Courtney Mcleod RN) Continuous [...] Thrombosis 1239 (New Bag - Provider: Renetta Porter RN)1935 (Paused - Provider: Renetta Porter RN)2036 (Restarted - Provider: Junie Gloria, GET) 0338 (Rate/Dose Change - Provider: Cherri Marie RN)0794 (New Bag - Provider: June Leroy, GET)1245 (Stopped - Provider: June Leroy, GET) PRN Medication Order 11/03/2017 11/04/2017 11/05/2017 dextrose [...] PRN, Starting on Thu10/27/17 at 1429, Until Thu11/05/17 at 1654, Nausea, Vomiting, Routine 0225 (Given [...] Gonzales RN)0909 (Given - Provider: Renetta Porter RN)133 (Given - Provider: Junie Crawford RN)171 (Given - Provider: Courtney Mcleod, GET)2118 (Given - Provider: Junie Gloria, GET) 005 (Given - Provider: Cherri Marie, GET)0610 (Given - Provider: Cherri Marie RN)1042 (Given - Provider: June Leroy RN)1505 (Given - Provider: June Leroy RN)2019 (Given - Provider: Mariel Fitzgerald RN) 0033 (Given - Provider: Mariel Fitzgerald RN)1037 (Given - Provider: Courtney Mcleod, GET) oxyCODONE (ROXICODONE) immediate release tablet 5 mg(Linked [...] Gonzales RN)0909 (See Alternative - Provider: Renetta Porter RN)133 (See Alternative - Provider: Junie Crawford RN)171 (See Alternative - Provider: Courtney Mcleod, GET)2118 (See Alternative - Provider: Junie Gloria RN) 005 (See Alternative - Provider: Cherri Marie RN)0610 (See Alternative - Provider: Cherri Marie, GET)1042 (See Alternative - Provider: June Leroy, GET)1505 (See Alternative - Provider: June Leroy, GET)2019 (See Alternative - Provider: Mariel Fitzgerald, RN) 0033 (See Alternative - Provider: Mariel Fitzgerald, RN)1037 (See Alternative - Provider: Courtney Mcleod RN) [...] Routine documented in this encounter Care Teams Unit Leader Relationship Specialty Start Date End Date Randa Rosas APRN [address] [place] [address] PCP - General 12/29/12 04/16/22 documented as of this encounter
--- OUTSIDE RECORDS SUMMARY | 2024-11-18 16:57 | XMS_ITS | Encounter Summary ---
Author Organization [facility] [place] [address] Care Team Providers Care News Writer Name Role Phone Randa Rosas VALENTIN Primary Care Provider +1- [phone] Reason for Visit * Reason Comments Follow-up Encounter Details Date Type Department Care Team (Late st Contact Info) Description 10/06/2017 2:30 PM EST Office [place] [address] Lenore Baron APRN [facility] [place] [address] Hospital discharge follow-up Social History Tobacco Use Types Packs/Day [...] - Inhaled Oxygen Concentration - - Weight 100.2 kg (221 lb) 10/06/2017 2:23 PM EST Height - - Body Mass Index 34.61 09/24/2017 3:31 PM EDT documented in this encounter Progress Notes * Lenore Baron APRN - 10/06/2017 2:30 PM EST Mr Nancy Salazar is here for hospital check 08/24/17-09/01/17 admission to [facility] for partial small bowel obstruction He is a 62 y.o., male, with a history of DM, HTN, APR in 04/2013 for ypT3 N0?? adenocarcinoma of the rectum, with parastomal hernia and incisional hernia who presented on 08/24/17 partial small bowel obstruction felt likely related to one of his hernias and adhesions Today nancy reports he has done well since discharge. No abd pain, nausea or vomiting. Has a lot ofgas. However ostomy is functioning without problem. He is eating and was seen by his oncologist last week EXAM: Non toxic appearing, moves easily about the exam room. Abd soft non tender non distended, ostomy pink and viable with air and stool in the pouch Impression/plan: No evidence of obstruction Doing well post discharge Nancy may FU with us on an as needed basis, we are happy to see him back should anything specific arise documented in this encounter Plan of Treatment Not on file documented as of this encounter Visit Diagnoses Diagnosis Hospital discharge follow-up Other follow-up examination documented in this encounter Care Teams News Writer Relationship Specialty Start Date End Date Randa Rosas APRN [address] [place] [address] PCP - General 12/29/12 04/16/22 documented as of this encounter
--- OUTSIDE RECORDS SUMMARY | 2024-11-18 16:57 | XMS_ITS | Encounter Summary ---
Author Organization [facility] [place] [address] Care Team Providers Care Ui Software Engineer Name Role Phone Randa Rosas VALENTIN Primary Care Provider +1- [phone] Reason for Visit * Reason Onset Date Comments Medication Refill 09/25/2017 Oxycodone refi ll Encounter Details Date Type Department Care Team (Late st Contact Info) Description 09/25/2017 Telephone Hematology/Oncology at [address] [phone] Rebeca Cruz, machine wiper Refill (Oxycodone refill) Social History Tobacco Use Types Packs/Day Years [...] encounter Miscellaneous Notes * Telephone Encounter - Rebeca Cruz, RN - 09/25/2017 10:18 AM EDT Refill of percocet sent to [address] Regarding: Please Call Charlette called re : Mims prescription she forgot where you told them to pick it up. Which pharmacy. Hemalatha Bower documented in this encounter Plan of Treatment Not on file documented as of this encounter Visit Diagnoses Not on filedocumented in this encounter Care Teams Ui Software Engineer Relationship Specialty Start Date End Date Randa Rosas APRN [address] [place] [phone] PCP - General 12/29/12 04/16/22 documented as of this encounter
--- OUTSIDE RECORDS SUMMARY | 2024-11-18 16:57 | XMS_ITS | Encounter Summary ---
Author Organization [facility] [place] [address] Care Team Providers Care Double Cut Sawyer Name Role Phone Randa Rosas APRN Primary Care Provider +1- [phone] Encounter Details Date Type Department Care Team (Late st Contact Info) Description 10/06/2017 3:00 PM EST Office [place] [phone] Ostomy nurse consultation Social History Tobacco Use Types Packs/Day Years [...] as of this encounter Progress Notes * Esha Clark RN - 10/06/2017 3:00 PM EST Error documented in this encounter Plan of Treatment Not on file documented as of this encounter Visit Diagnoses Diagnosis Ostomy nurse consultation documented in this encounter Care Teams Double Cut Sawyer Relationship Specialty Start Date End Date Randa Rosas APRN [address] [facility] [place] [phone] PCP - General 12/29/12 04/16/22 documented as of this encounter
--- OUTSIDE RECORDS SUMMARY | 2024-11-18 16:57 | XMS_ITS | Encounter Summary ---
Author Organization [facility] [place] [address] Care Team Providers Care Assistant Office Manager Name Role Phone Randa Rosas APRN Primary Care Provider +1- [phone] Encounter Details Date Type Department Care Team (Late st Contact Info) Description 09/01/2017 Orders [place] [phone] Ruma Mann, RN Social History Tobacco Use Types Packs/Day [...] on filedocumented in this encounter Care Teams Assistant Office Manager Relationship Specialty Start Date End Date Randa Rosas APRN [address] [facility] [place] [phone] PCP - General 12/29/12 04/16/22 documented as of this encounter
--- OUTSIDE RECORDS SUMMARY | 2024-11-18 16:57 | XMS_ITS | Encounter Summary ---
Author Organization [facility] Address [facility] [place] [address] Care Team Providers Care Certified Pest Control Technician Name Role Phone Randa Rosas APRN Primary Care Provider +1- [phone] Encounter Details Date Type Department Care Team (Late st Contact Info) Description 09/24/2017 Orders Only Hematology Oncology at [address] [phone] Rebeca Cruz, RN Social History Tobacco Use Types Packs/Day [...] on filedocumented in this encounter Care Teams Certified Pest Control Technician Relationship Specialty Start Date End Date Randa Rosas APRN [address] [place] [phone] PCP - General 12/29/12 04/16/22 documented as of this encounter
--- OUTSIDE RECORDS SUMMARY | 2024-11-18 16:57 | XMS_ITS | Encounter Summary ---
Author Organization [facility] Address [facility] [place] [address] Care Team Providers Care Campus Rep Name Role Phone Randa Rosas VALENTIN Primary Care Provider +1- [phone] Encounter Details Date Type Department Care Team (Late st Contact Info) Description 09/24/2017 3:30 PM EDT Office Visit Hematology/Oncology at [address] [phone] Nas Dobbs MD Rectal cancer Social History [...] Sign Reading Time Taken Comments Blood Pressure 110/58 09/24/2017 3:31 PM EDT Pulse 95 09/24/2017 3:31 PM EDT Temperature 37 ??C (98.6 ??F) 09/24/2017 3:31 PM EDT Respiratory Rate 16 09/24/2017 3:31 PM EDT Oxygen Saturation 100% 09/24/2017 3:31 PM EDT Inhaled Oxygen Concentration - - Weight 104.3 kg (230 lb) 09/24/2017 3:31 PM EDT Height 170.2 cm (5' 7.01) 09/24/2017 3:31 PM ED T copied Body Mass Index 36.01 09/24/2017 3:31 PM EDT documented in this encounter Progress Notes * Nas Dobbs MD - 09/24/2017 3:30 PM EDT Patient Active Problem List Diagnosis Code ??? Rectal cancer C20 ??? Diabetes mellitus E11.9 ??? Obesity (BMI 35.0-39.9 without comorbidity) E66.9 ??? Hypertension I10 ??? Snoring R06.83 ??? Colostomy in place Z93.3 ??? Neurogenic bladder N31.9 ??? 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 Status post neoadjuvant chemoradiation therapy with continuous infusion 5 fluorouracil followed by a AP resection. The patient then had 8 cycles of adjuvant FOLFOX chemotherapy SUBJECTIVE: Reg comes in today for followup. He is approaching 4.5 years since his initial diagnosis. Since I last saw him, he had a short 1-week stay in the hospital for a partial bowel obstruction but fortunately did not require surgery for that. He has been back at work since he got out of the hospital, although he has not yet got his regular strength back. He did lose about 20 pounds while he was in the hospital. He is feeling fine, however, otherwise. He continues to take an occasional pain pill after a long day at work because of abdominal discomfort. I talked to him about whether or not there was any relationship between the pain pills and his partial obstruction but he does not take them that often and he does not believe he was taking any around that time. Other than that though, he is doing well. He is here today with his significant other, who is in fine spirits as well. Review of systems is negative. Current Outpatient Prescriptions on File Prior to Visit Medication Sig Dispense Refill ??? pantoprazole (PROTONIX) 40 mg Tablet, Delayed Release (E.C.) Take 1 tablet by mouth daily. 90 tablet 3 ??? JANUMET 50-1,000 mg Tablet Take 1 tablet by mouth 2 times daily. ??? oxyCODONE-acetaminophen (PERCOCET) 5-325 mg Tablet Take 1 tablet by mouth every 4 hours as needed for Pain. 180 tablet 0 ??? Syringe with Needle, Disp, (MONOJECT TB SAFETY SYRINGE) 1 mL 25 x 5/8 Syrg 0.1 mLs by [facility].(Non-Drug; Combo Route) route as [...] Take 1 tablet by mouth daily. ??? sildenafil (VIAGRA) 100 mg tablet Take 100 mg by mouth as needed. ??? INDOMETHACIN ORAL Take by mouth. Reported [...] no neuropathy. Hematological: Negative for adenopathy. BP 110/58 (Patient Position: Sitting) Pulse 95 Temp 37 ??C (98.6 ??F) (Oral) Resp 16 Ht 170.2 cm (5' 7.01) Comment: copied Wt (!) 104.3 kg (230 lb) SpO2 100% BMI 36.01 kg/m2 Head: Normocephalic, without obvious abnormality, atraumatic [...] density and fluid likely reflecting posttreatment changes. ??Laboratory shows a white count of 10.3, hemoglobin 11.5, hematocrit 33%, platelet count is 461. Mean cell volume is normal at 86. CMP shows normal liver tests with ALP of 73, a calcium of 8.5, creatinine is a little higher at 1.3. Random glucose 172. CEA remains non-detectable at less than 0.5. ASSESSMENT/PLAN: Reg is doing well and has no evidence of recurrent colon cancer 4.5 years after his initial diagnosis. We will see him back in 6 months with the final lab including a CBC, CMP, and CEA. At that point, I think he can follow-up with his regular PCP, although I would be glad to see him as needed. His risk of reoccurrence at this point is almost 0. documented in this encounter Plan of Treatment Not on file documented as of this encounter Visit Diagnoses Diagnosis Rectal cancer Malignant neoplasm of rectum documented in this encounter Care Teams Campus Rep Relationship Specialty Start Date End Date Randa Rosas APRN [address] [place] [address] PCP - General 12/29/12 04/16/22 documented as of this encounter
--- OUTSIDE RECORDS SUMMARY | 2024-11-18 16:58 | XMS_ITS | Encounter Summary ---
Author Organization [facility] Address [facility] [place] [address] Care Team Providers Care Literacy Tutor Name Role Phone Randa Rosas APRN Primary Care Provider +1- [phone] Reason for Visit * Reason Comments Rectal Cancer Encounter Details Date Type Department Care Team (Late st Contact Info) Description 01/01/2017 3:30 PM EST Office Visit Hematology/Oncology at [address] [phone] Nas Dobbs MD Rectal cancer Social History Tobacco Use Types Packs/Day Years Used Date Smoking Tobacco: Former Cigarettes Q uit: 11/30/1996 Alcohol Use Standard Drinks/Week Comments Yes 0 (1 standard drink = 0.6 oz pur e alcohol) seldom Sex and Gender Information Value Date Recorded Sex Assigned at Not on file Gender Identity Not on file Sexual Orientation Not on file documented as of this encounter Last Filed Vital Signs Vital Sign Reading Time Taken Comments Blood Pressure 112/65 01/01/2017 3:30 PM EST Pulse 82 01/01/2017 3:30 PM EST Temperature 36.7 ??C (98.1 ??F) 01/01/2017 3:30 PM ES T Respiratory Rate 16 01/01/2017 3:30 PM EST Oxygen Saturation 97% 01/01/2017 3:30 PM EST Inhaled Oxygen Concentration - - Weight 113.4 kg (250 lb) 01/01/2017 3:30 PM EST Height 170.2 cm (5' 7.01) 01/01/2017 3:30 PM ES T copied Body Mass Index 39.15 01/01/2017 3:30 PM EST documented in this encounter Progress Notes * Nas Dobbs MD - 01/01/2017 3:30 PM EST Patient Active Problem List Diagnosis Code ??? Rectal cancer C20 ??? Diabetes mellitus E11.9 ??? Obesity (BMI 35.0-39.9 without comorbidity) E66.9 ??? Hypertension I10 ??? Snoring R06.83 ??? Colostomy in place Z93.3 ??? 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 Status post neoadjuvant chemoradiation therapy with continuous infusion 5 fluorouracil followed by a AP resection. The patient then had 8 cycles of adjuvant FOLFOX chemotherapy SUBJECTIVE: Adrien comes in today for what is his 3-1/2 year followup of his colon cancer. We did go ahead and get scanning this time and this is his final CT scan in the followup of his resected rectal cancer. I am pleased to tell him there is no evidence of recurrent tumor on this scan and he notes he is doing reasonably well although he does have occasional pain related to his abdominal hernia post surgery. He takes a very occasional oxycodone for that and we did refill a script for that for him today. 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 Current Outpatient Prescriptions on File Prior to Visit Medication Sig Dispense Refill ??? Syringe with Needle, Disp, (MONOJECT TB SAFETY SYRINGE) 1 mL 25 x 5/8 Syrg 0.1 mLs by [facility].(Non-Drug; Combo Route) route as needed (use no more than 3 times a week). 25 Syringe 11 ??? SITAGLIPTIN PHOS/METFORMIN HCL (JANUMET ORAL) Take by mouth 2 times daily. ??? lisinopril [...] no neuropathy. Hematological: Negative for adenopathy. BP 112/65 (Patient Position: Sitting) Pulse 82 Temp 36.7 ??C (98.1 ??F) (Oral) Resp 16 Ht 170.2 cm (5' 7.01) Comment: copied Wt (!) 113.4 kg (250 lb) SpO2 97% BMI 39.15 kg/m2 Head: Normocephalic, without obvious abnormality, atraumatic [...] supraclavicular, and axillary nodes normal Neurologic: Normal Results for ADRIEN CHEUNG ( ) as of 01/01/2017 15:54 Ref. Range 12/30/2016 13:13 WBC Latest Ref Range: 4.0 - 9.5 x10(3)/mcL 7.4 RBC Latest Ref Range: 4.58 - 5.54 x10(6)/mcL 4.50 (L) Hemoglobin Latest Ref Range: 13.7 - 16.5 gm/dL 13.8 Hematocrit Latest Ref Range: 40.5 - 48.5 % 39.4 (L) MCV Latest Ref Range: 82.9 - 93.1 fL 87.6 MCH Latest Ref Range: 27.5 - 32.1 pg 30.7 MCHC Latest Ref Range: 32.0 - 35.7 gm/dL 35.0 RDWSD Latest Ref Range: 36.0 - 45.0 fL 40.0 RDWCV Latest Ref Range: 11.4 - 13.8 % 12.5 Platelets Latest Ref Range: 145 - 357 x10(3)/mcL 305 MPV Latest Ref Range: 7.6 - 12.9 fL 10.2 nRBC % Auto Latest Units: % 0.0 nRBC Abs Auto Latest Ref Range: 0.000 - 0.000 x10(3)/mcL 0.000 Neutr Abs (ANC) Latest Ref Range: 1.70 - 6.10 x10(3)/mcL 4.62 Neutrophils % Latest Units: % 62.3 Immature Gran % Latest Units: % 0.70 Lymphocytes % Latest Units: % 25.5 Monocytes % Latest Units: % 9.9 Eosinophils % Latest Units: % 1.3 Basophils % Latest Units: % 0.3 Naomi Gran Abs Latest Ref Range: 0.00 - 0.04 x10(3)/mcL 0.05 (H) Lymphocytes Abs Latest Ref Range: 0.9 - 3.2 x10(3)/mcL 1.9 Monocyte Abs Latest Ref Range: 0.3 - 0.9 x10(3)/mcL 0.7 Eosinophils Abs Latest Ref Range: 0.0 - 0.4 x10(3)/mcL 0.1 Basophils Abs Latest Ref Range: 0.0 - 0.1 x10(3)/mcL 0.0 Sodium Latest Ref Range: 135 - 145 mmol/L 141 Potassium Latest Ref Range: 3.5 - 5.0 mmol/L 4.4 Chloride Latest Ref Range: 98 - 107 mmol/L 99 CO2 Latest Ref Range: 22 - 31 mmol/L 30 Anion Gap Latest Ref Range: 5 - 15 mmol/L 12 BUN Latest Ref Range: 10 - 20 mg/dL 13 Creatinine Latest Ref Range: 0.80 - 1.50 mg/dL 0.86 Estimated GFR Latest Ref Range: >=60 >60 Glucose Lvl Latest Ref Range: 65 - 199 mg/dL 228 (H) Calcium Latest Ref Range: 8.5 - 10.5 mg/dL 9.2 Total Protein Latest Ref Range: 6.1 - 8.0 gm/dL 6.7 Albumin Latest Ref Range: 3.2 - 5.2 gm/dL 4.4 Total Bilirubin Latest Ref Range: 0.2 - 1.3 mg/dL 0.4 Bili, Direct Latest Ref Range: 0.0 - 0.3 mg/dL 0.1 Alk Phos Latest Ref Range: 40 - 120 unit/L 61 AST Latest Ref Range: 0 - 39 unit/L 16 ALT Latest Ref Range: 0 - 55 unit/L 31 CEA Latest Ref Range: <=3.8 ng/mL 1.8 EXAMINATION: CT CHEST ABDOMEN PELVIS W CONTRAST (GENERIC) 12/30/16 ?? CLINICAL HISTORY: 3 yr follow up Rectal cancer post resection Contrast please ?? TECHNIQUE: Helical CT of the chest, abdomen, and pelvis was performed following intravenous administration of 110 ml of 02/14/2015 and oral contrast. ?? COMPARISON: None ?? FINDINGS: ?? Chest Lungs and large airways: There is mild motion artifact limiting sensitivity for small pulmonary nodules. There is stable 2 mm nodule left lower lobe. No additional discrete pulmonary nodules are identified. Proximal airways are widely patent. Pleura: No effusion Heart: Normal size, no pericardial effusion Mediastinum and aubrie: No lymphadenopathy ?? Abdomen/pelvis Liver: Within normal limits. Bile ducts: Normal caliber Gallbladder: No calcified gallstones. Normal caliber wall. Pancreas: Normal Spleen: Normal Adrenals: Normal Kidneys: Normal ? Lymph nodes: No enlarged abdominal or pelvic lymph nodes Bowel: There are stable postsurgical changes status post APR. Stable soft tissue density seen in the presacral space. Again noted is focal low attenuation within the soft tissue density, question postoperative seroma. There is stable soft tissue density in the paratracheal fat. Anterior abdominal wall hernias contain normal caliber loops of bowel without evidence of bowel wall thickening or adjacent fluid. Peritoneum and mesentery: No ascites or free air, no fluid collection ?? Osseous structures: No suspicious lesions. ?? IMPRESSION 1. Stable post surgical changes presacral space with stable low-attenuation region that may represent postoperative seroma. No evidence of recurrence or metastatic disease. 2. Stable appearance anterior abdominal wall hernias without evidence of complication. ?? ASSESSMENT/PLAN: Adrien is doing exceptionally well and has no evidence of recurrent rectal cancer now 3-1/2 years after his surgery. He is doing well overall and we will see him back in about 6 months with a CBC, CMP and CEA. Plans are for lab q.6 months until year 5 and after that simple routine followup. We are available if any questions or issues develop in the interim. documented in this encounter Plan of Treatment Not on file documented as of this encounter Visit Diagnoses Diagnosis Rectal cancer Malignant neoplasm of rectum documented in this encounter Care Teams Literacy Tutor Relationship Specialty Start Date End Date Randa Rosas APRN [address] [place] [id number] PCP - General 12/29/12 04/16/22 documented as of this encounter
--- OUTSIDE RECORDS SUMMARY | 2024-11-18 16:58 | XMS_ITS | Encounter Summary ---
Author Organization [facility] Address [facility] [place] [address] Care Team Providers Care Second Cutter Name Role Phone Randa Rosas APRN Primary Care Provider +1- [phone] Encounter Details Date Type Department Care Team (Late st Contact Info) Description 05/14/2015 10:00 AM EDT [place] [phone] Neurogenic bladder Social History Tobacco Use Types Packs/Day Years [...] Sign Reading Time Taken Comments Blood Pressure 135/74 05/14/2015 10:09 AM EDT Pulse 92 05/14/2015 10:09 AM EDT Temperature - - Respiratory Rate - - Oxygen Saturation 99% 05/14/2015 10:09 AM EDT Inhaled Oxygen Concentration - - Weight - - Height - - Body Mass Index - - documented in this encounter Progress Notes * Junie Dominguez MD - 05/14/2015 10:05 AM EDT Reason for Visit:Reg Salazar is a 59 y.o. male who is here for urodynamics and a discussion of treatment options. Reg has a history of Voiding dysfunction since his rectal cancer surgery. This is.his Repeat study. OBJECTIVE: Well looking male in no acute distress. Vital signs: see flow sheet PVR: caths so no measured when the urodynamic catheter was inserted Dipstick Urinalysis: +WBC URODYNAMICS/Injection of Contrast: The patient was filled with cystograffin at a rate of 50ml/min. via a 10 Fr urodynamic catheter in the urethra with an abdominal catheter in the rectum and EMG pads placed on the perineum. 375 ml of high osmolar contrast was instilled. 225 ml were wasted. Cystogram: mGy:19.9; mGym2:0.357; fluoro time 0.8 minutes Indication:neurogenic bladder Findings: Adequate views of the bladder at rest, during filling, at capacity and after emptying were obtained with fluoroscopy. Imaging revealed a smooth bladder with the bladder neck closed at rest. Interpretation: normal cystogram I supervised the above listed procedure and interpreted the findings. Charter Boat Captain imaging was saved. Complex Cystometrogram: The detrusor (bladder minus abdominal) pressure was stable to a volume of 200 ml when he had a sense of needing to void . There was normal compliance as he was filled further to 375 ml. The DLPP was not measured. Filling sensation was ab/normal. Bladder capacity: 500 ml Pressure Flow: The patient was given permission to void and was unable to generate a detrusor contraction. An image was taken and saved. Pad EMG: EMG activity was unremarkable during filling and attempted emptying. I was present for the pertinent portions of the urodynamics. I reviewed the results with the patient following the procedure. I reviewed and edited the final report which is in the chart. IMPRESSION: pt with an atonic bladder s/p rectal surgery PLAN: continue with [facility]IC RTC 1 y for repeat UDS. documented in this encounter Plan of Treatment Not on file documented as of this encounter Visit Diagnoses Diagnosis Neurogenic bladder Neurogenic bladder, NOS documented in this encounter Care Teams Second Cutter Relationship Specialty Start Date End Date Randa Rosas APRN [address] [place] [address] PCP - General 12/29/12 04/16/22 documented as of this encounter
--- OUTSIDE RECORDS SUMMARY | 2024-11-18 16:58 | XMS_ITS | Encounter Summary ---
Author Organization [facility] Address [facility] [place] [address] Care Team Providers Care Taker Off Braker Machine Name Role Phone Randa Rosas APRN Primary Care Provider +1- [phone] Encounter Details Date Type Department Care Team (Late st Contact Info) Description 08/30/2014 Telephone [place] [phone] Nazanin Delacruz MD [facility] [place] [address] Social History Tobacco Use Types Packs/Day Years Used Date Smoking Tobacco: Former Cigarettes Q uit: 11/30/1996 Alcohol Use Standard Drinks/Week Comments Yes 0 (1 standard drink = 0.6 oz pure alcohol) beer on weekends - not recently Sex and Gender Information Value Date Recorded Sex Assigned at Not on file Gender Identity Not on file Sexual Orientation Not on file documented as of this encounter Miscellaneous Notes * Telephone Encounter - Nazanin Delacruz - 08/30/2014 10:47 PM EDT Telephone Note: Reg Salazar is a 59 y.o. male s/p APR with permanent colostomy secondary to rectal cancer on 05/11/[address] Hills who calls because he has had some skin breakdown just above his ostomy. Pt notes that just superior to his ostomy he had a small skin blister that formed due to trauma from his appliance. Today this blister popped and has drained reddish/yellow fluid. There is no reported erythema surrounding the lesion. He denies fevers, chills, pain, or obstructive symptoms. His ostomy output is normal. He has a scheduled appointment with Dr. Vidal tomorrow for possible ventral hernia repair. Likely that this is a skin blister secondary to trauma from his ostomy appliance. Recommended that he monitor his symptoms closely - specifically those for infection or obstruction. He should be evaluated in clinic tomorrow. Minimize trauma to that area with his appliance and to keep it clean. NAZANIN DELACRUZ MD documented in this encounter Plan of Treatment Not on file documented as of this encounter Visit Diagnoses Not on filedocumented in this encounter Care Teams Taker Off Braker Machine Relationship Specialty Start Date End Date Randa Rosas APRN [address] [place] [address] PCP - General 12/29/12 04/16/22 documented as of this encounter
--- OUTSIDE RECORDS SUMMARY | 2024-11-18 16:58 | XMS_ITS | Encounter Summary ---
Author Organization [facility] [place] [address] Care Team Providers Care Dry Ice Maker Name Role Phone Randa Rosas VALENTIN Primary Care Provider +1- [phone] Reason for Referral * Diagnostic Test (Routine) - Closed Specialty Diagnoses / Procedures Referred By Contac t Referred To Contact Radiology Diagnoses Rectal cancer Procedures CT Chest Abdomen Pelvis w Contrast (Generic) CT Chest, Abdomen, & Pelvis With/Wo Contrast Nas Dobbs MD [address] [place] [address] [place] [address] [facility] [place] [address] Referral ID Status Reason Start Date Expiration Date V isits Requested Visits Authorized [id number] Closed Specialty Service Requested 11/05/2016 02/03/2017 1 1 Reason for Visit * Diagnostic Test (Routine) - Closed Specialty Diagnoses / Procedures Referred By Contac t Referred To Contact Radiology Diagnoses Rectal cancer Procedures CT Chest Abdomen Pelvis w Contrast (Generic) CT Chest, Abdomen, & Pelvis With/Wo Contrast Nas Dobbs MD [address] [place] [address] [place] [address] [facility] [place] [address] Referral ID Status Reason Start Date Expiration Date V isits Requested Visits Authorized [id number] Closed Specialty Service Requested 11/05/2016 02/03/2017 1 1 Encounter Details Date Type Department Care Team (Latest Contact Info) Description 12/30/2016 12:49 PM EST - 12/30/2016 11:59 PM EST [facility] [place] [address] Nas Dobbs MD Rectal cancer Discharge Disposition: Home Social History Tobacco Use [...] Sig Dispensed Refills Start Date End Date atorvastatin (LIPITOR) 40 mg tablet Take 40 mg by mouth daily. glipiZIDE (GLUCOTROL) 10 mg 24 hr tablet Take 10 mg by mouth 2 times daily. multivitamin (THERAGRAN) tablet Take 1 tablet by mouth daily. oxyCODONE-acetaminophen (PERCOCET) 5-325 mg TabletIndications:Recta l cancer Take 1 tablet by mouth every 4 hours as needed for Pain. 180 tablet 05/26/2016 01/01/2017 Syringe with Needle, Disp, (MONOJECT TB SAFETY SYRINGE) 1 mL 25 x 5/8 SyrgIndications:Male erectile dysfunction 0.1 mLs by Misc.(Non-Drug; Combo Route) route as needed (use no more than 3 times a week). 25 Syringe 11 05/09/2014 08/03/2020 SITAGLIPTIN PHOS/METFORMIN HCL (JANUMET ORAL) Take by mouth 2 times daily. 09/01/2017 lisinopril (PRINIVIL;ZESTRIL) 10 mg tablet Take 10 mg by mouth 2 times daily. 01/31/2022 sildenafil (VIAGRA) 100 mg tablet Take 100 mg by mouth as needed. 11/18/2017 INDOMETHACIN ORAL Take by mouth. Reported on 01/01/2017 08/03/2020 documented as of this encounter Plan of Treatment Not on file documented as of this encounter Procedures Procedure Name Priority Date/Time Associated Diagnosis Comments CT CHEST ABDOMEN PELVIS W CONTRAST (GENERIC) Routine 12/30/2016 3:45 PM EST Rectal cancer documented in this encounter Results * CT Chest Abdomen Pelvis w Contrast (Generic) (12/30/2016 3:45 PM EST) Anatomical Region Laterality Modality Abdomen, Pelvis Computed Tomogra phy Impressions 12/30/2016 4:05 PM EST 1. ??Stable post surgical changes presacral space with stable low-attenuation region that may represent postoperative seroma. No evidence of recurrence or metastatic disease. 2. ??Stable appearance anterior abdominal wall hernias without evidence of complication. Narrative 12/30/2016 4:05 PM EST EXAMINATION: CT CHEST ABDOMEN PELVIS W CONTRAST (GENERIC) CLINICAL HISTORY: 3 yr follow up Rectal cancer post resection ??Contrast please TECHNIQUE: Helical CT of the chest, abdomen, and pelvis was performed following intravenous administration of 110 ml of 02/14/2015 and oral contrast. COMPARISON: None FINDINGS: Chest Lungs and large airways: There is mild motion artifact limiting sensitivity for small pulmonary nodules. There is stable 2 mm nodule left lower lobe. No additional discrete pulmonary nodules are identified. Proximal airways are widely patent. Pleura: No effusion Heart: Normal size, no pericardial effusion Mediastinum and aubrie: No lymphadenopathy Abdomen/pelvis Liver: Within normal limits. Bile ducts: Normal caliber Gallbladder: No calcified gallstones. Normal caliber wall. Pancreas: Normal Spleen: Normal Adrenals: Normal Kidneys: Normal Lymph nodes: No enlarged abdominal or pelvic [...] ascites or free air, no fluid collection Osseous structures: No suspicious lesions. Procedure Note Leti Gregory MD - 12/30/2016 EXAMINATION: CT CHEST ABDOMEN PELVIS W CONTRAST (GENERIC) CLINICAL HISTORY: 3 yr follow up Rectal cancer post resection Contrastplease TECHNIQUE: Helical CT of the chest, abdomen, and pelvis was performedfollowing intravenous administration of 110 ml of 02/14/2015 and oral contrast. COMPARISON: None FINDINGS: Chest Lungs and large airways: There is mild motion artifact limitingsensitivity for small pulmonary nodules. There is stable 2 mm nodule left lower lobe. No additional discrete pulmonary nodules are identified. Proximal airwaysare widely patent. Pleura: No effusion Heart: Normal size, no pericardial effusion Mediastinum and aubrie: No lymphadenopathy Abdomen/pelvis Liver: Within normal limits. Bile ducts: Normal caliber Gallbladder: No calcified gallstones. Normal caliber wall. Pancreas: Normal Spleen: Normal Adrenals: Normal Kidneys: Normal Lymph nodes: No enlarged abdominal or pelvic lymph nodes Bowel: There are stable postsurgical changes status post APR. Stable softtissue density seen in the presacral space. Again noted is focal low attenuationwithin the soft tissue density, question postoperative seroma. There is stablesoft tissue density in the paratracheal fat. Anterior abdominal wall hernias contain normal caliber loops of bowelwithout evidence of bowel wall thickening or adjacent fluid. Peritoneum and mesentery: No ascites or free air, no fluid collection Osseous structures: No suspicious lesions. IMPRESSION 1. Stable post surgical changes presacral space with stablelow-attenuation region that may represent postoperative seroma. No evidence of recurrenceor metastatic disease. 2. Stable appearance anterior abdominal wall hernias without evidenceof complication. Nas Dobbs MD IMG CT ORDERABLES documented in this encounter Visit Diagnoses Diagnosis Rectal cancer Malignant neoplasm of rectum documented in this encounter Administered Medications Inactive Administered Medications - up to 3 most recent administrations Medication Order MAR Action Action Date Dose Rate Site iohexol (OMNIPAQUE) 350 mg/mL solution 17,500 mg 17,500 mg (50 mL), Oral, ONCE PRN, 1 dose, Starting on Thu12/30/16 at 1545, Until Thu12/30/16 at 1546, Per Protocol, Warning Vesicant/Irritant Medication , Routine Given 12/30/2016 3:46 PM EST 17,500 mg iohexol (OMNIPAQUE) 350 mg/mL solution 38,500 mg 38,500 mg (110 mL), Intravenous, ONCE PRN, 1 dose, Starting on Thu12/30/16 at 1545, Until Thu12/30/16 at 1546, Per Protocol, Warning Vesicant/Irritant Medication , Routine Given 12/30/2016 3:46 PM EST 38,500 mg documented in this encounter Care Teams Dry Ice Maker Relationship Specialty Start Date End Date Randa Rosas APRN [address] [place] [address] PCP - General 12/29/12 04/16/22 documented as of this encounter
--- OUTSIDE RECORDS SUMMARY | 2024-11-18 16:58 | XMS_ITS | Encounter Summary ---
Author Organization [facility] Address [facility] [place] [address] Care Team Providers Care Dump Grounds Checker Name Role Phone Randa Rosas APRN Primary Care Provider +1- [phone] Encounter Details Date Type Department Care Team (Late st Contact Info) Description 09/25/2014 Orders Only Hematology Oncology at [address] [phone] Nas Dobbs MD Social History Tobacco Use Types Packs/Day Years [...] on filedocumented in this encounter Care Teams Dump Grounds Checker Relationship Specialty Start Date End Date Randa Rosas APRN [address] [facility] [phone] PCP - General 12/29/12 04/16/22 documented as of this encounter
--- OUTSIDE RECORDS SUMMARY | 2024-11-18 16:58 | XMS_ITS | Encounter Summary ---
Author Organization [facility] [place] [address] Care Team Providers Care Offshore Wind Operations Manager Name Role Phone Randa Rosas VALENTIN Primary Care Provider +1- [phone] Encounter Details Date Type Department Care Team (Latest Contact Info) Description 12/30/2016 12:55 PM EST Laboratory Appointment Lab [address] [place] [phone] Rectal cancer Social History Tobacco Use Types [...] Priority Date/Time Associated Diagnosis Comments HEMOGRAM Routine 12/30/2016 1:13 PM EST Rectal cancer DIFFERENTIAL, AUTOMATED Routine 12/30/2016 1:13 PM EST Rectal cancer CBC (WITH DIFF) Routine 12/30/2016 1:13 PM EST Rectal cancer CEA Routine 12/30/2016 1:13 PM EST Rectal cancer COMPREHENSIVE METABOLIC PANEL Routine 12/30/2016 1:13 PM EST Rectal cancer documented in this encounter Results * (ABNORMAL) Differential, Automated (12/30/2016 1:13 PM EST) Neutrophil % 62.3 % [facility] Neutrophil Absolute 4.62 1.70 - 6.10 x10(3)/ L [facility] Lymph % 25.5 % [facility] Lymphocytes Abs 1.9 0.9 - 3.2 x10(3)/ L [facility] Monocyte % 9.9 % [facility] Monocyte Abs 0.7 0.3 - 0.9 x10(3)/ L [facility] Eos % 1.3 % [facility] Eosinophils Abs 0.1 0.0 - 0.4 x10(3)/[facility] Basophil % 0.3 % [facility] Baso Absolute 0.0 0.0 - 0.1 x10(3)/[facility] Immature Gran % 0.70 % [facility] Comment: Immature granulocytes(IG's)percentage and absolute count will include metamyelocytes, myelocytes, and promyelocytes. Blood smears from CBCs yielding IG's will be scanned manually for concordance. If this scan disagrees with the automated IG or if promyelocytes are noted, a manual differential will be performed. Immature Gran Absolute 0.05(H) 0.00 - 0.04 x10(3)/ L [facility] Blood specimen (specimen) 12/30/2016 1:13 PM EST 12/30/2016 1:22 PM EST Narrative Resulting Agency Comment Spec In Lab Nas Dobbs MD HEMATOLOGY ORDERABLE S [facility] [place] [address] * (ABNORMAL) Hemogram (12/30/2016 1:13 PM EST) Pathologist [facility] White Blood Cell 7.4 4.0 - 9.5 x10(3)/ L [facility] Red Blood Cell 4.50(L) 4.58 - 5.54 x10(6)/mc L [facility] Hemoglobin 13.8 13.7 - 16.5 gm/dL [facility] Hematocrit 39.4(L) 40.5 - 48.5 % [facility] Mean Cell Volume 87.6 82.9 - 93.1 fL [facility] Mean Cell Hemoglobin 30.7 27.5 - 32.1 pg [facility] Mean Cell Hemoglobin Concentration 35.0 32.0 - 35.7 gm/dL [facility] Platelet 305 145 - 357 x10(3)/mc L [facility] RDW Standard Deviation 40.0 36.0 - 45.0 [facility] RDW coefficient of variation 12.5 11.4 - 13.8 % [facility] Mean Platelet Volume 10.2 7.6 - 12.9 fL [facility] NRBC% auto 0.0 % [facility] NRBC Absolute 0.000 0.000 - 0.000 x10(3)/mc L [facility] Blood specimen (specimen) 12/30/2016 1:13 PM EST 12/30/2016 1:22 PM EST Narrative Resulting Agency Comment Spec In Lab Nas Dobbs MD HEMATOLOGY ORDERABLE S [facility] [place] [address] * CEA (12/30/2016 1:13 PM EST) Carcinoembryonic Antigen 1.8 <=3.8 ng/mL [facility] Comment: Reference range: ??(20-69 years): Non-smoker: ??less than or equal to 3.8 ng/mL Smoker: ??less than 5.5 ng/ml Blood specimen (specimen) 12/30/2016 1:13 PM EST 12/30/2016 1:22 PM EST Narrative Resulting Agency Comment Spec In Lab Nas Dobbs MD CHEMISTRY ORDERABLES [facility] [place] [address] * (ABNORMAL) Comprehensive metabolic panel (non-fasting) (12/30/2016 1:13 PM EST) Glucose 228(H) 65 - 199 mg/dL [facility] Comment:Diabetes: >=200 mg/d L plus symptoms Blood Urea Nitrogen 13 10 - 20 mg/dL [facility] Creatinine 0.86 0.80 - 1.50 mg/dL [facility] Comment: Please note that the pediatric reference intervals supplied above were not validated at [facility]. Results from pediatric patients should be interpreted in conjunction to the patient's age, height and muscle mass. Sodium 141 135 - 145 mmol/L [facility] Potassium 4.4 3.5 - 5.0 mmol/L [facility] Comment: Please note: ??Patients with WBC >100,000 may have falsely elevated Potassium levels. ??For accurate Potassium quantification in these patients send serum separator tube (gold top) for subsequent determinations. ??Contact the Clinical Chemistry Laboratory if there are any questions. Chloride 99 98 - 107 mmol/L [facility] Carbon Dioxide 30 22 - 31 mmol/L [facility] Anion Gap 12 5 - 15 mmol/L [facility] Calcium 9.2 8.5 - 10.5 mg/dL [facility] Protein, Total 6.7 6.1 - 8.0 gm/dL [facility] Albumin 4.4 3.2 - 5.2 gm/dL [facility] Aspartate Aminotransferase 16 0 - 39 unit/L [facility] Alanine Aminotransferase 31 0 - 55 unit/L [facility] Alkaline Phosphatase 61 40 - 120 unit/L [facility] Bilirubin, Total 0.4 0.2 - 1.3 mg/dL [facility] Bilirubin, Direct 0.1 0.0 - 0.3 mg/dL [facility] Est Glomerular Filtration Rate >60 >=60 [facility] Comment: This estimated GFR (eGFR) value was calculated using the MDRD equation which has been validated on patients between the ages of 18 and 70. The MDRD should not be used to assess kidney function in patients < 18 years of age or in patients with extremes of body mass, or in patients with acute kidney failure. This value should be multiplied by 1.2 for patients. For further information please copy and paste the following links into your internet browser. http://[employer]/DHnkdep http://[employer]/DHMCnkf Blood specimen (specimen) 12/30/2016 1:13 PM EST 12/30/2016 1:22 PM EST Narrative Resulting Agency Comment Spec In Lab Nas Dobbs MD CHEMISTRY ORDERABLES Performing Organization Address City/State/[facility] Co de Phone Number [facility] [place] [phone] documented in this encounter Visit Diagnoses Diagnosis Rectal cancer Malignant neoplasm of rectum documented in this encounter Care Teams Offshore Wind Operations Manager Relationship Specialty Start Date End Date Randa Rosas APRN [address] [place] [address] PCP - General 12/29/12 04/16/22 documented as of this encounter
--- OUTSIDE RECORDS SUMMARY | 2024-11-18 16:58 | XMS_ITS | Encounter Summary ---
Author Organization [facility] [place] [address] Care Team Providers Care Hand I Blocker Name Role Phone Randa Rosas APRN Primary Care Provider +1- [phone] Encounter Details Date Type Department Care Team (Late st Contact Info) Description 03/23/2015 11:15 AM EDT - 03/23/2015 12:00 PM EDT [place] [address] Bobby Hills MD COLONOSCOPY, DIAGNOSTIC (WRVU 3.26) Social History Tobacco Use Types Packs/Day Years [...] Sign Reading Time Taken Comments Blood Pressure 110/67 03/23/2015 12:31 PM EDT Pulse 81 03/23/2015 12:31 PM EDT Temperature - - Respiratory Rate 14 03/23/2015 12:31 PM EDT Oxygen Saturation 95% 03/23/2015 12:31 PM EDT Inhaled Oxygen Concentration - - Weight - - Height - - Body Mass Index - - documented in this encounter Discharge Instructions * Discharge Instructions* Tamara Franco RN - 03/23/2015 12:33 PM EDT Colonoscopy What to expect after the procedure You may feel a little more gassy or bloated than usual. This is normal. You should expect the return of normal bowel function in the 2 to 3 days. Activity Because of the sedation that you received your judgement and reaction time are effected ?? Go home and rest quietly for the remainder of the day. You may resume your normal activities tomorrow. ?? Change from one position to the next slowly. You may lose your balance unexpectedly ?? Be careful on stairs, as you may be unsteady on your feet FOR THE NEXT 24 HRS ?? DO NOT DRIVE OR OPERATE ANY MACHINERY ?? DO NOT DRINK ALCOHOLIC BEVERAGES ?? DO NOT SIGN LEGAL DOCUMENTS ?? If you are a smoker: DO NOT SMOKE WHILE YOU ARE ALONE Diet ?? Start by eating small portions of foods that ordinarily will not upset your stomach . Avoid gas producing foods for the next few days ?? Be gentle with what you choose to start with ?? Drink plenty of fluids ( unless your doctor has told you not to). IV SITE-- slight redness, or tenderness is normal. You can use warm compresses if you become concerned. If the tenderness +/or redness increases or foul drainage and a red streak occurs, please contact your PCP immediately When shoud you call for help? Call 911 anytime you think you may need emergency care. For example If you pass out ( loss of consciousness) If you pass maroon or bloody stools If you have severe belly pain Call your doctor now or seek immediate medical care If your stools are black and tarlike If your stools have streaks of blood, but you did not have a biopsy or any polyps removed If you have belly pain, or your belly is swollen and firm If you vomit If you have a fever If you are very dizzy Watch closely for changes in your health, and be sure to contact your doctor if you have any problems Your doctor will let you know when you will need your next colonoscopy. The results of your test and your risk for colorectal cancer will help your doctor decide how often you need to be checked. [facility] [phone] 8a-5p Same Day Endo [phone] 7a-8p Otherwise contact [phone] and ask to speak to the oncology coordinator alternative medicine practitioner Follow up care is a uribe part of your treatment and safety. Be sure to make and go to all appointments, and call your doctor if you are having problems. Discharge instructions reviewed with patient who expresses understanding documented in this encounter Medications at Time of Discharge Medication Sig Dispensed Refills Start Date End Date atorvastatin (LIPITOR) 40 mg tablet Take 40 mg by mouth daily. glipiZIDE (GLUCOTROL) 10 mg 24 hr tablet Take 10 mg by mouth 2 times daily. multivitamin (THERAGRAN) tablet Take 1 tablet by mouth daily. oxyCODONE-acetamino phen (PERCOCET) 5-325 mg TabletIndications:R ectal cancer Take 1 tablet by mouth every 4 hours as needed for Pain. 180 tablet 0 02/22/2015 08/23/2015 UNABLE TO FIND 0.1 mLs by Intracavernosal route as needed ( Triple p solution). One dose in 24 hours. No more than three doses in one week. 2.5 mL 6 05/09/2014 05/26/2016 Syringe with Needle, Disp, (MONOJECT TB SAFETY SYRINGE) 1 mL 25 x 5/8 SyrgIndications:Mal e erectile dysfunction 0.1 mLs by Misc.(Non-Drug; Combo [...] 01/01/2017 08/03/2020 documented as of this encounter H&P Notes * Bobby Hills - 03/22/2015 5:48 PM EDT Colon & Rectal Surgery Interval H&P Reg Lux Salazar,[id number] Interval: Since last seen, no signficant changes. Past Medical History Diagnosis Date ??? ED (erectile dysfunction) ??? HTN (hypertension) ??? Gout ??? Hyperlipemia ??? DM (diabetes mellitus) type 2 ??? Obesity ??? 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 Hypercoagulable state Protein S deficiency ??? Rectal cancer Past Surgical History Procedure Laterality Date ??? Colonoscopy 12/17/2012 discovered rectal invasive adenocarcinoma ??? Nasal polyp surgery ??? Tonsillectomy and adenoidectomy ??? Vasectomy ??? Pilonidal cyst excision ??? Lap, surg proctectomy w colostomy 05/11/2013 @LAPAROSCOPIC PROCTECTOMY, COMPLETE, APR W COLOSTOMY performed by Bobby Hills MD at [facility] ??? Remove abd lymph nodes rad regnl 05/11/2013 @LYMPHADENECTOMY,ABDOMINAL,REGIONAL,MULTIPLE NODES performed by Bobby Hills MD at [facility] ??? Exclusion, small bowel from pelvis 05/11/2013 @EXCLUSION OF SMALL INTESTINE FROM PELVIS performed by Bobby Hills MD at [facility] ??? Muscle-skin flap, leg 05/11/2013 FLAP, MYOCUTANEOUS OR FASCIOCUTANEOUS, LOWER EXTREMITY performed by Oscar Soto MD at [facility] ??? Adj tiss xfer scalp, extrem 10.1-30 05/11/2013 ADJ.TISSUE TRANSFER, REARRANGEMENT, 10.1 TO 30 SQ.CM, LEGS performed by Oscar Soto MD at [facility] ??? Cystoscopy, insert ureteral stent 05/11/2013 CYSTO, STENT PLACEMENT INTRAOP, TEMPORARY performed by Mark Khan MD at [facility] ??? Omental flap, intra-abdominal 05/11/2013 @OMENTAL FLAP, INTRA-ABDOMINAL performed by Mark Khan MD at [facility] No current facility-administered medications on file prior to encounter. Current Outpatient Prescriptions on File Prior to Encounter Medication Sig Dispense Refill ??? UNABLE TO FIND 0.1 mLs by Intracavernosal route as needed ( Triple p solution). One dose in 24 hours. No more than three doses in one week. 2.5 mL 6 ??? Syringe with Needle, Disp, (MONOJECT TB [...] daily. ??? INDOMETHACIN ORAL Take by mouth. Allergies Allergen Reactions ??? Penicillins Rash There were no vitals filed for this visit. Exam: General: Alert and oriented x4 Heart: RRR Lungs: /L CTA Abdomen: Soft, non distended/tender, + BS Extremities: Warm, no edema No results found for this or any previous visit (from the past 24 hour(s)). Assessment/Plan Proceed with diagnostic colonoscopy. Bobby Hills MD, MS, FACS, FASCRS relay associate Division of Colon and Rectal Surgery [facility] Pager #[phone] documented in this encounter Miscellaneous Notes * Op Note - Bobby Hills - 03/22/2015 5:48 PM EDT See Provation report in Results for full colonoscopic findings. In summary: normal, next colonoscopy 2 years. Bobby Hills MD, MS, FACS relay associate Division of Colon and Rectal Surgery [facility] Pager #[phone] documented in this encounter Plan of Treatment Not on file documented as of this encounter Procedures Procedure Name Priority Date/Time Associated Diagnosis Comments COLONOSCOPY, DIAGNOSTIC (WRVU 3.26) 03/23/2015 12:08 PM EDT HX RECTAL CA-SURVEILLANCE POCT GLUCOSE Routine 03/23/2015 12:02 PM EDT COLONOSCOPY Routine 03/23/2015 11:57 AM EDT documented in this encounter Results * POCT Glucose (03/23/2015 12:02 PM EDT) Glucose, POC 136 60 - 199 mg/dL [facility] Comment: Supplemental ranges: <140 mg/dL before meals <180 mg/dL all other times of the day Blood specimen (specimen) 03/23/2015 12:02 PM EDT 03/23/2015 12:02 PM EDT Bobby Hills MD POINT OF CARE TEST O RDERABLES Performing Organization Address City/State/[facility] Co de Phone Number [facility] * COLONOSCOPY (03/23/2015 11:57 AM EDT) COLONOSCOPY [facility] Endoscopy Patient Name: Reg Salazar ? Procedure Date: 03/23/2015 11:57 AM ? N: [id number] ? Date of : 1955 ? Age: 59 ? Order #: [id number] ? Procedure: ? Colonoscopy Indications: ? High [...] in 2 years for ? surveillance WITH AISHWARYA PREP. ? - Return to my office as previously ? scheduled. ? Procedure Code(s): ?? --- Professional --- ? 45637, Colonoscopy through stoma; ? diagnostic, including collection of ? specimen(s) by brushing or washing, ? when performed (separate procedure) Diagnosis Code(s): ?? --- Professional --- ? V10.06, Personal history of malignant ? neoplasm of rectum, rectosigmoid ? junction, and anus ? --- Technical --- ? V10.06, Personal history of malignant ? neoplasm of rectum, rectosigmoid ? junction, and anus CPT copyright 2014 [employer]. All rights reserved. The codes documented in this report are preliminary and upon assembly stock supervisor review may be revised to meet current compliance requirements. Bobby Hills MD 03/23/2015 12:25 PM Number of Addenda: 0 Note Initiated On: 03/23/2015 11:57 AM PROVATION 03/23/2015 11:5 7 AM EDT Randa Rosas APRN GENERAL SURGICAL O RDERABLES PROVATION documented in this encounter Visit Diagnoses Not on filedocumented in this encounter Administered Medications Inactive Administered Medications - up to 3 most recent administrations Medication Order MAR Action Action Date Dose Rate Site fentaNYL 50 mcg/mL multi-dose injection ONCE PRN, Starting on Thu03/23/15 at 1210, Until Thu03/23/15 at 1302, Intra-Operative (Intra-Procedure), Routine Given 03/23/2015 12:13 PM EDT 50 mcg Given 03/23/2015 12:10 PM EDT 50 mcg lactated ringers infusion 100 mL/hr, Intravenous, CONTINUOUS, Starting on Thu03/23/15 at 1045, Until Thu03/23/15 at 1302, Endoscopy (Day of Procedure) New Bag 03/23/2015 10:45 AM EDT 100 mL/hr 100 mL/hr midazolam (PF) (VERSED) 1 mg/mL multi-dose injection ONCE PRN, Starting on Thu03/23/15 at 1213, Until Thu03/23/15 at 1302, Intra-Operative (Intra-Procedure), Routine Given 03/23/2015 12:13 PM EDT 1 mg Given 03/23/2015 12:10 PM EDT 2 mg documented in this encounter Active and Recently Administered Medications Times are shown in EDT. Continuous Medication Order 03/21/2015 03/22/2015 03/23/2015 lactated ringers infusion (CANCELED) 100 mL/hr, Intravenous, CONTINUOUS, Starting on Thu03/23/15 at 1045, Until Thu03/23/15 at 1302, Endoscopy (Day of Procedure) 1045 (New Bag - Prov ider: Lillian Thomas RN) PRN Medication Order 03/21/2015 03/22/2015 03/23/2015 fentaNYL 50 mcg/mL multi-dose injection (CANCELED) ONCE PRN, Starting on Thu03/23/15 at 1210, Until Thu03/23/15 at 1302, Intra-Operative (Intra-Procedure), Routine 1210 (Given - Provid er: Waldo Jaramillo RN)1213 (Given - Provider: Waldo Jaramillo RN) midazolam (PF) (VERSED) 1 mg/mL multi-dose injection (CANCELED) ONCE PRN, Starting on Thu03/23/15 at 1213, Until Thu03/23/15 at 1302, Intra-Operative (Intra-Procedure), Routine 1210 (Given - Provid er: Waldo Jaramillo RN)1213 (Given - Provider: Waldo Jaramillo RN) documented in this encounter Care Teams Hand I Blocker Relationship Specialty Start Date End Date Randa Rosas APRN [address] [place] [phone] PCP - General 12/29/12 04/16/22 documented as of this encounter
--- OUTSIDE RECORDS SUMMARY | 2024-11-18 16:58 | XMS_ITS | Encounter Summary ---
Author Organization [facility] Address [facility] [place] [address] Care Team Providers Care Men'S Locker Room Attendant Name Role Phone Randa Rosas APRN Primary Care Provider +1- [phone] Encounter Details Date Type Department Care Team (Late st Contact Info) Description 09/11/2014 Orders Only Hematology Oncology at [address] [phone] Nas Dobbs MD Social History Tobacco Use [...] on filedocumented in this encounter Care Teams Men'S Locker Room Attendant Relationship Specialty Start Date End Date Randa Rosas APRN [address] [place] [phone] PCP - General 12/29/12 04/16/22 documented as of this encounter
--- OUTSIDE RECORDS SUMMARY | 2024-11-18 16:58 | XMS_ITS | Encounter Summary ---
Author Organization Formerly [facility] Address [facility] [place] [address] Care Team Providers Care Proposal Coordinator Name Role Phone Randa Rosas APRN Primary Care Provider +1- [phone] Encounter Details Date Type Department Care Team (Late st Contact Info) Description 12/12/2016 Notes Only Hematology/Oncology at [address] [address] Nas Dobbs MD Social History Tobacco Use [...] on filedocumented in this encounter Care Teams Proposal Coordinator Relationship Specialty Start Date End Date Randa Rosas APRN [address] [place] [phone] PCP - General 12/29/12 04/16/22 documented as of this encounter
--- OUTSIDE RECORDS SUMMARY | 2024-11-18 16:58 | XMS_ITS | Encounter Summary ---
Author Organization [facility] [place] [address] Care Team Providers Care Social Professionals Name Role Phone Randa Rosas APRN Primary Care Provider +1- [phone] Reason for Visit * Reason Comments Dressing Change ostomy Encounter Details Date Type Department Care Team (Late st Contact Info) Description 09/06/2014 3:00 PM EDT [place] [phone] CLINIC, DR POOLE Attention to colostomy (Primary Dx); Rectal cancer Discharge Disposition: Home Social History [...] Sign Reading Time Taken Comments Blood Pressure 129/70 09/06/2014 3:01 PM EDT Pulse 93 09/06/2014 3:01 PM EDT Temperature 36.5 ??C (97.7 ??F) 09/06/2014 3:01 PM ED T Respiratory Rate - - Oxygen Saturation 99% 09/06/2014 3:01 PM EDT Inhaled Oxygen Concentration - - Weight - - Height - - Body Mass Index - - documented in this encounter Progress Notes * Nighat Lopez - 09/06/2014 5:03 PM EDT Saw pt in Wound Clinic this pm. Pt and s.o., Charlette, called last week and again last evening because they are concerned about sore around the stoma that seems to be enlarging. Pt is s/p APR and permanent colostomy secondary to rectal ca in 04/2013. He was seen by Dr. Hills and myself in 11/2013. Hehas gained back the 30 lbs that he lost post op. 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 The ulcer is located at the 12 o'clock position and measures 1.5 cm wide x 1 cm tall and less than 0.5 cm deep. The base if healthy with granulation tissue. I believe this is caused by pressurefrom the convex barrier and his hernia from inside. Dr. Hills was in the OR and Dr. Fitzgerald agreedto come to see pt at 4M. He examined and agrees that this appears to be pressure ulcer. We told him#1: that the convex pouching system will have to be put on hold and may not be able to be used, #2 stop wearing the Azul Systemse hernia belt, # 3 follow directions for pouching as follows: 1. Change pouch every 2-3 days, gently removing the pouch. 2. Shower or clean the stoma and peristomal skin and ulcer well with water, allow to dry. 3. Apply a small piece of Aquacel dressing over the ulcer and cover with a 2 x 2 piece of ExtrathinDuoderm 4. Cut new pattern out of the back of the Coloplast cut to fit one piece pouch, #[id number], apply a bead of paste and apply pouch to stoma. The pattern is cut about 1/4 larger than his stoma as I think this is needed in order to get a good seal. May need to add an Marlee seal but would like to trial with paste alone first. 5. Can wear the Ostomy Secrets wrap but no support belt. 6. Call if the ulcer is getting larger than smaller or if leakage of pouch occurs more often than every other day. I gave pt 6 pouches, a few of the Extrathin Duoderm and the Aquacel dressing. We will f/u in one week at 4L along with Dr. Hills. Pt saw Dr. Hills in [facility] as he was leaving clinic today. documented in this encounter Plan of Treatment Not on file documented as of this encounter Visit Diagnoses Diagnosis Attention to colostomy- Primary Rectal cancer Malignant neoplasm of rectum documented in this encounter Care Teams Social Professionals Relationship Specialty Start Date End Date Randa Rosas APRN [address] [place] [address] PCP - General 12/29/12 04/16/22 documented as of this encounter
--- OUTSIDE RECORDS SUMMARY | 2024-11-18 16:58 | XMS_ITS | Encounter Summary ---
Author Organization [facility] Address [facility] [address] Care Team Providers Care Dry Kiln Operator Name Role Phone Randa Rosas APRN Primary Care Provider +1- [phone] Encounter Details Date Type Department Care Team (Latest Contact Info) Description 02/14/2015 12:29 PM EDT - 02/14/2015 11:59 PM EDT Hospital [place] [address] CLINIC, DR VIRGILIO Dobbs, Nas Weaver MD Rectal cancer Discharge Disposition: Home Social [...] mouth daily. oxyCODONE-acetamino phen (PERCOCET) 5-325 mg TabletIndications:B ack pain,Rectal cancer Take 1 tablet by mouth every 4 hours as needed for Pain. 180 tablet 0 10/23/2014 02/22/2015 UNABLE TO FIND 0.1 mLs by Intracavernosal route as needed ( Triple p solution). One dose in 24 hours. No more than three doses in one week. 2.5 mL 6 05/09/2014 05/26/2016 Syringe with Needle, Disp, (MONOJECT TB SAFETY SYRINGE) 1 mL 25 x 5/8 SyrgIndications:Mal e erectile dysfunction 0.1 mLs by [facility] [place] [...] 01/01/2017 08/03/2020 documented as of this encounter Miscellaneous Notes * Ancillary Services Notes - Denise Sargent - 02/14/2015 2:44 PM EDT You had a CT Scan on 02/14/15 @1420. Per [facility] Policy it is important that you stop taking your Metformin (Diabetic Medication) for 2 days following the injection of IV iodinated contrast. You can start taking your Metformin on 02/16/15 after 1500. If you have any questions or concerns, contact your primary care provider. Also drink plenty of water following your CT Scan to help clear the IV Iodinated contrast out of your body. Thank You, [facility] CT Scan Dept documented in this encounter Plan of Treatment Not on file documented as of this encounter Procedures Procedure Name Priority Date/Time Associated Diagnosis Comments CT ABDOMEN AND PELVIS W CONTRAST Routine 02/14/2015 2:53 PM EDT documented in this encounter Results * CT abdomen & pelvis with contrast (02/14/2015 2:53 PM EDT) Anatomical Region Laterality Modality Abdomen, Pelvis Computed Tomogra phy 02/14/2015 2:53 PM EDT Impressions 02/14/2015 5:00 PM EDT IMPRESSION: 1. Stable presacral soft tissues with small hypodense collection in the region of prior prostatectomy. Findings are unchanged in comparison with the prior CT scan and are favored to represent post surgical changes. However, interval follow-up is recommended. 2. Unchanged right abdominal wall and left parastomal wall hernia without evidence of obstruction. This report was reviewed by Mark Orozco at 02/14/2015 4:55 PM Film and interpretation reviewed by the attending Narrative 02/14/2015 5:00 PM EDT EXAMINATION: ??CT Abdomen / Pelvis With Contrast CLINICAL HISTORY: ??F/U Abnormal fluid collection bladder outlet. ??Patient self caths with frequent bladder infections TECHNIQUE: Helical CT of the abdomen and pelvis was performed ??following intravenous administration of contrast. 110 cc of Omnipaque 350 was given. ??Oral contrast was administered. COMPARISON: ??CT scan chest/abdomen/pelvis 10/16/2014, MRI pelvis 04/06/2013 FINDINGS: Lung bases: ??Normal Liver: ??Normal size, no focal lesions Bile ducts: ??Nondilated Gallbladder: ??No calcified gallstones. Normal caliber wall Pancreas: ??Normal Spleen: ??Normal Adrenals: ??Normal Kidneys: ??Normal Lymph Nodes: ??No enlarged lymph nodes. Bowel: Right abdominal wall and left sided stomal hernias containing fat and loops of bowel. No bowel dilatation or evidence of obstruction/incarceration. No adjacent inflammatory changes or wall thickening. Peritoneum: Patient is status post APR with pelvic clips and suture in place. Soft tissue density filling the presacral space and abutting the bladder base is grossly unchanged. Again seen is a low-attenuation area within this region (series 2, image 88; series 602, image 88). This measures 1.4 x 2.3 cm and is similar in size when compared with the prior CT scan. Vasculature: Minor atherosclerotic changes. Urinary Bladder: Mildly distended and otherwise unremarkable. Reproductive organs: Status post prostatectomy. Bones: No suspicious lesions. Procedure Note Mark Orozco MD - 02/14/2015 EXAMINATION: CT Abdomen / Pelvis With Contrast CLINICAL HISTORY: F/U Abnormal fluid collection bladder outlet. Patientself caths with frequent bladder infections TECHNIQUE: Helical CT of the abdomen and pelvis was performed following intravenous administration of contrast. 110 cc of Omnipaque 350 was given.Oral contrast was administered. COMPARISON: CT scan chest/abdomen/pelvis 10/16/2014, MRI pelvis04/06/2013 FINDINGS: Lung bases: Normal Liver: Normal size, no focal lesions Bile ducts: Nondilated Gallbladder: No calcified gallstones. Normal caliber wall Pancreas: Normal Spleen: Normal Adrenals: Normal Kidneys: Normal Lymph Nodes: No enlarged lymph nodes. Bowel: Right abdominal wall and left sided stomal hernias containing fatand loops of bowel. No bowel dilatation or evidence ofobstruction/incarceration. No adjacent inflammatory changes or wall thickening. Peritoneum: Patient is status post APR with pelvic clips and suture inplace. Soft tissue density filling the presacral space and abutting the bladderbase is grossly unchanged. Again seen is a low-attenuation area within thisregion (series 2, image 88; series 602, image 88). This measures 1.4 x 2.3 cm andis similar in size when compared with the prior CT scan. Vasculature: Minor atherosclerotic changes. Urinary Bladder: Mildly distended and otherwise unremarkable. Reproductive organs: Status post prostatectomy. Bones: No suspicious lesions. IMPRESSION IMPRESSION: 1. Stable presacral soft tissues with small hypodense collection in theregion of prior prostatectomy. Findings are unchanged in comparison with theprior CT scan and are favored to represent post surgical changes. However,interval follow-up is recommended. 2. Unchanged right abdominal wall and left parastomal wall herniawithout evidence of obstruction. This report was reviewed by Mark Orozco at 02/14/2015 4:55 PM Film and interpretation reviewed by the attending Nas Dobbs MD IMG CT ORDERABLES documented in this encounter Visit Diagnoses Diagnosis Rectal cancer Malignant neoplasm of rectum documented in this encounter Administered Medications Inactive Administered Medications - up to 3 most recent administrations Medication Order MAR Action Action Date Dose Rate Site iohexol (OMNIPAQUE) 350 mg/mL solution 38,500 mg 38,500 mg (110 mL), Intravenous, ONCE PRN, 1 dose, Starting on 02/14/15 at 1443, Until 02/14/15 at 1443, Per Protocol, Routine Given 02/14/2015 2:43 PM EDT 38,500 mg iohexol (OMNIPAQUE) radiology oral prep (50 mL of oral contrast) 50 mL 50 mL, Oral, ONCE PRN, per protocol, Starting on Thu02/14/15 at 1443, 1 dose, Until Thu02/14/15 at 1420 Given 02/14/2015 2:20 PM EDT 50 mLs documented in this encounter Care Teams Dry Kiln Operator Relationship Specialty Start Date End Date Randa Rosas APRN [address] [place] [id number] PCP - General 12/29/12 04/16/22 documented as of this encounter
--- OUTSIDE RECORDS SUMMARY | 2024-11-18 16:58 | XMS_ITS | Encounter Summary ---
Author Organization [facility] [place] [address] Care Team Providers Care Mining Captain Name Role Phone Randa Rosas APRN Primary Care Provider +1- [phone] Reason for Referral * Diagnostic Test (Routine) - Closed Specialty Diagnoses / Procedures Referred By Contac t Referred To Contact Radiology Diagnoses Rectal cancer Procedures CT Chest Abdomen Pelvis w Contrast (Generic) CT Chest, Abdomen, & Pelvis With/Wo Contrast Nas Dobbs MD [address] [place] [id number] [facility] [place] [address] Referral ID Status Reason Start Date Expiration Date V isits Requested Visits Authorized [id number] Closed Specialty Service Requested 11/05/2016 02/03/2017 1 1 Reason for Visit * Reason Comments Rectal Cancer Encounter Details Date Type Department Care Team (Late st Contact Info) Description 05/26/2016 2:30 PM EDT Office Visit Hematology/Oncology at [address] [address] Nas Dobbs MD Rectal cancer Social History [...] Sign Reading Time Taken Comments Blood Pressure 137/64 05/26/2016 2:29 PM EDT Pulse 94 05/26/2016 2:29 PM EDT Temperature 36.8 ??C (98.2 ??F) 05/26/2016 2:29 PM ED T Respiratory Rate 16 05/26/2016 2:29 PM EDT Oxygen Saturation 98% 05/26/2016 2:29 PM EDT Inhaled Oxygen Concentration - - Weight 112 kg (247 lb) 05/26/2016 2:29 PM EDT Height 170.2 cm (5' 7.01) 05/26/2016 2:29 PM ED T copied Body Mass Index 38.68 05/26/2016 2:29 PM EDT documented in this encounter Progress Notes * Nas Dobbs MD - 05/26/2016 2:46 PM EDT Patient Active Problem List Diagnosis Code ??? Rectal cancer C20 ??? Diabetes mellitus E11.9 ??? Obesity (BMI 35.0-39.9 without comorbidity) E66.01 ??? Hypertension I10 ??? Snoring R06.83 ??? Colostomy in place Z93.3 ??? 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 Status post neoadjuvant chemoradiation therapy with continuous infusion 5 fluorouracil followed by a AP resection. The patient then had 8 cycles of adjuvant FOLFOX chemotherapy SUBJECTIVE: Reg comes in today for followup on his rectal cancer. We had been originally planning on doing a CT scan prior to this visit but that was not done. Fortunately, he is going to be going back to [facility] on June 24 with a significant other and it would be very convenient for him to do the scan at that time. We will arrange for that. He continues to do well overall with only some occasional back and abdominal discomfort related to his ostomy. He will take an occasional Percocet for that but is keeping his usage way down and most weeks does not take any. Review of systems however is otherwise quite negative. His ostomy is functioning well. He has had no unusual pains, breathing problems, or other difficulties. Current Outpatient Prescriptions on File Prior to Visit Medication Sig Dispense Refill ??? oxyCODONE-acetaminophen (PERCOCET) [...] daily. ??? INDOMETHACIN ORAL Take by mouth. Current Facility-Administered Medications on File Prior to [...] no neuropathy. Hematological: Negative for adenopathy. BP 137/64 (Patient Position: Sitting) Pulse 94 Temp 36.8 ??C (98.2 ??F) (Oral) Resp 16 Ht 170.2 cm (5' 7.01) Comment: copied Wt (!) 112 kg (247 lb) SpO2 98% BMI 38.68 kg/m2 Head: Normocephalic, without obvious abnormality, atraumatic [...] supraclavicular, and axillary nodes normal Neurologic: Normal Review of his laboratory today shows a CEA of 0.7. CMP shows creatinine of 0.6, a sodium of 136, ALT of 62, and normal liver tests. CBC shows a white count of 8.8, hemoglobin 13.8, hematocrit 41.3, and platelet count 250,000. ASSESSMENT/PLAN: Reg is doing exceptionally well and has no evidence of recurrent disease. His next scan will be his three year followup scan and no further radiology is planned after that providing it is normal. We will go ahead and set that up at [facility] on June 24, and he will call back a few days after that to make sure we have seen the results. A refill for his prescription for pain medicines given and we again discussed not using the medicine regularly. He has been very compliant with that. I think it is a help for him considering the surgery he has been through. His routine followup is scheduled for six months with CBC, CMP, and CEA a few days prior to that. He will call if there are issues or problems in the interim. documented in this encounter Plan of Treatment Not on file documented as of this encounter Procedures Procedure Name Priority Date/Time Associated Diagnosis Comments LAB SCAN 11/02/2016 12:00 AM EST LAB SCAN 11/02/2016 12:00 AM EST documented in this encounter Results * CT [...] complication. Nas Dobbs MD IMG CT ORDERABLES * CEA (12/30/2016 1:13 PM EST) Carcinoembryonic Antigen 1.8 <=3.8 ng/mL [facility] Comment: Reference range: ??(20-69 years): Non-smoker: ??less than or equal to 3.8 ng/mL Smoker: ??less than 5.5 ng/ml Blood specimen (specimen) 12/30/2016 1:13 PM EST 12/30/2016 1:22 PM EST Narrative Resulting Agency Comment Spec In Lab Nas Dobbs MD CHEMISTRY ORDERABLES [facility] [place] [address] * (ABNORMAL) Comprehensive metabolic panel (non-fasting) (12/30/2016 1:13 PM EST) Glucose 228(H) 65 - 199 mg/dL [facility] Comment:Diabetes: >=200 mg/d L plus symptoms Blood Urea Nitrogen 13 10 - 20 mg/dL [facility] Creatinine 0.86 0.80 - 1.50 mg/dL [facility] Comment: Please note that the pediatric reference intervals supplied above were not validated at [facility]. Results from pediatric patients should be interpreted in conjunction to the patient's age, height and muscle mass. Sodium 141 135 - 145 mmol/L [facility] Potassium 4.4 3.5 - 5.0 mmol/L [facility] Comment: Please note: ??Patients with WBC >100,000 may have falsely elevated Potassium levels. ??For accurate Potassium quantification in these patients send serum separator tube (gold top) for subsequent determinations. ??Contact the Clinical Chemistry Laboratory if there are any questions. Chloride 99 98 - 107 mmol/L [facility] Carbon Dioxide 30 22 - 31 mmol/L [facility] Anion Gap 12 5 - 15 mmol/L [facility] Calcium 9.2 8.5 - 10.5 mg/dL [facility] Protein, Total 6.7 6.1 - 8.0 gm/dL [facility] Albumin 4.4 3.2 - 5.2 gm/dL [facility] Aspartate Aminotransferase 16 0 - 39 unit/L [facility] Alanine Aminotransferase 31 0 - 55 unit/L [facility] Alkaline Phosphatase 61 40 - 120 unit/L [facility] Bilirubin, Total 0.4 0.2 - 1.3 mg/dL [facility] Bilirubin, Direct 0.1 0.0 - 0.3 mg/dL [facility] Est Glomerular Filtration Rate >60 >=60 [facility] Comment: This estimated GFR (eGFR) [...] the following links into your internet browser. [email or web address] Blood specimen (specimen) 12/30/2016 1:13 PM EST 12/30/2016 1:22 PM EST Narrative Resulting Agency Comment Spec In Lab Nas Dobbs MD CHEMISTRY ORDERABLES Performing Organization Address City/State/[facility] Co de Phone Number [facility] [place] [address] * SCAN DOC: LAB (11/02/2016 12:00 AM EST) Scanning Provider MEDIA MGR SCAN EXT O RDR/RSLT * SCAN DOC: LAB (11/02/2016 12:00 AM EST) Scanning Provider MEDIA MGR SCAN EXT O RDR/RSLT documented in this encounter Visit Diagnoses Diagnosis Rectal cancer Malignant neoplasm of rectum Rectal cancer Malignant neoplasm of rectum documented in this encounter Care Teams Mining Captain Relationship Specialty Start Date End Date Randa Rosas APRN [address] [place] [address] PCP - General 12/29/12 04/16/22 documented as of this encounter
--- OUTSIDE RECORDS SUMMARY | 2024-11-18 16:58 | XMS_ITS | Encounter Summary ---
Author Organization [facility] Address [facility] [place] [address] Care Team Providers Care Allergist/Pediatric Pulmonologist Name Role Phone Randa Rosas APRN Primary Care Provider +1- [phone] Reason for Visit * Reason Comments Rectal Cancer Encounter Details Date Type Department Care Team (Late st Contact Info) Description 02/22/2015 3:30 PM EDT Follow-Up Hematology Oncology at [address] [address] Nas Dobbs MD Rectal cancer Discharge Disposition: [...] Sign Reading Time Taken Comments Blood Pressure 130/79 02/22/2015 3:27 PM EDT Pulse 87 02/22/2015 3:27 PM EDT Temperature 36.5 ??C (97.7 ??F) 02/22/2015 3:27 PM ED T Respiratory Rate 18 02/22/2015 3:27 PM EDT Oxygen Saturation 97% 02/22/2015 3:27 PM EDT Inhaled Oxygen Concentration - - Weight 112 kg (247 lb) 02/22/2015 3:27 PM EDT Height 170.2 cm (5' 7.01) 02/22/2015 3:27 PM ED T Body Mass Index 38.68 02/22/2015 3:27 PM EDT documented in this encounter Progress Notes * Nas Dobbs MD - 02/22/2015 3:44 PM EDT Diagnosis: 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 Status post neoadjuvant chemoradiation therapy with continuous infusion 5 fluorouracil followed by a AP resection. The patient then had 8 cycles of adjuvant FOLFOX chemotherapy Subjective: Adrien comes in today for followup on his rectal cancer. He is continuing to do well with only a little hernia at his colostomy. It is functioning well. He continues to have urinary problems and does self cath and occasionally does get infections, but it trying to do as good as he can on that. He is here today after a CT scan and lab for restaging. Review of systems is otherwise negative with him working a full 55 hours a week at his job. Review of Systems Constitutional: Negative for fever, [...] has no neuropathy. Hematological: Negative for adenopathy. Head: Normocephalic, without obvious abnormality, atraumatic Eyes: [...] supraclavicular, and axillary nodes normal Neurologic: Normal EXAMINATION: CT Abdomen / Pelvis With Contrast CLINICAL HISTORY: F/U Abnormal fluid collection bladder outlet. Patient self caths with frequent bladder infections TECHNIQUE: Helical CT of the abdomen and pelvis was performed following intravenous administration of contrast. 110 cc of Omnipaque 350 was given. Oral contrast was administered. COMPARISON: CT scan chest/abdomen/pelvis 10/16/2014, MRI pelvis 04/06/2013 FINDINGS: Lung bases: Normal Liver: Normal size, [...] parastomal wall hernia without evidence of obstruction. Results for ADRIEN CHEUNG ( ) as of 02/22/2015 15:44 Ref. Range 02/14/2015 13:16 WBC Latest Range: 4.0-10.0 x10(3)/mcL 8.2 RBC Latest Range: 4.63-6.08 x10(6)/mcL 4.54 (L) Hemoglobin Latest Range: 13.7-17.5 gm/dL 14.1 Hematocrit Latest Range: 40.0-51.0 % 40.7 MCV Latest Range: 79.0-92.0 fL 89.6 MCH Latest Range: 25.6-32.2 pg 31.1 MCHC Latest Range: 32.0-36.5 gm/dL 34.6 RDWSD Latest Range: 35.0-46.0 fL 42.5 RDWCV Latest Range: 10.9-14.4 % 13.2 Platelets Latest Range: 145-370 x10(3)/mcL 275 MPV Latest Range: 9.0-12.0 fL 10.5 Neutr Abs (ANC) Latest Range: 1.50-6.30 x10(3)/mcL 6.15 Neutrophils % No range found 74.8 Immature Gran % No range found 0.20 Lymphocytes % No range found 16.1 Monocytes % No range found 7.5 Eosinophils % No range found 1.3 Basophils % No range found 0.1 Naomi Gran Abs Latest Range: 0.00-0.05 x10(3)/mcL 0.02 Lymphocytes Abs Latest Range: 1.0-3.6 x10(3)/mcL 1.3 Monocyte Abs Latest Range: 0.2-1.0 x10(3)/mcL 0.6 Eosinophils Abs Latest Range: 0.0-0.5 x10(3)/mcL 0.1 Basophils Abs Latest Range: 0.0-0.2 x10(3)/mcL 0.0 Sodium Latest Range: 135-145 mmol/L 140 Potassium Latest Range: 3.5-5.0 mmol/L 4.3 Chloride Latest Range: 98-107 mmol/L 99 CO2 Latest Range: 22-31 mmol/L 26 Anion Gap Latest Range: 5-15 mmol/L 15 BUN Latest Range: 10-20 mg/dL 12 Creatinine Latest Range: 0.80-1.50 mg/dL 0.74 (L) Estimated GFR Latest Range: >=60 >60 Glucose Lvl Latest Range: 60-199 mg/dL 111 Calcium Latest Range: 8.5-10.5 mg/dL 9.3 Hemoglobin A1C Latest Range: 4.3-5.6 % 7.1 (H) Est Avg Gluc No range found 157 Total Protein Latest Range: 6.1-8.0 gm/dL 7.0 Albumin Latest Range: 3.2-5.2 gm/dL 4.5 Total Bilirubin Latest Range: 0.2-1.3 mg/dL 0.6 Bili, Direct Latest Range: 0.0-0.3 mg/dL 0.1 Alk Phos Latest Range: 40-120 unit/L 59 AST Latest Range: 0-39 unit/L 20 ALT Latest Range: 0-55 unit/L 29 CEA Latest Range: <=3.8 ng/mL 2.0 Assessment/Plan: Adrien is doing well with no evidence of recurrent rectal cancer. We will see him back in six months' time with lab including CEA. He will call if issues or problems develop in the interim. We did refill his Percocet prescription. He does have occasional perineal pain and also some discomfort with self cathing and his hernia. I think he is not using much in the way of pain medication and it does seem to help him especially at the end of a long shift at work. documented in this encounter Plan of Treatment Not on file documented as of this encounter Procedures Procedure Name Priority Date/Time Associated Diagnosis Comments LAB SCAN 08/18/2015 12:00 AM EDT documented in this encounter Results * SCAN DOC: LAB (08/18/2015 12:00 AM EDT) Scanning Provider MEDIA MGR SCAN EXT O RDR/RSLT documented in this encounter Visit Diagnoses Diagnosis Rectal cancer Malignant neoplasm of rectum documented in this encounter Care Teams Allergist/Pediatric Pulmonologist Relationship Specialty Start Date End Date Randa Rosas APRN [address] [place] [address] PCP - General 12/29/12 04/16/22 documented as of this encounter
--- OUTSIDE RECORDS SUMMARY | 2024-11-18 16:58 | XMS_ITS | Encounter Summary ---
Author Organization [facility] Address [facility] [place] [address] Care Team Providers Care Administrative Services Coordinator Name Role Phone Randa Rosas APRN Primary Care Provider +1- [phone] Encounter Details Date Type Department Care Team (Late st Contact Info) Description 09/25/2014 Orders Only Hematology Oncology at [address] [phone] Nas Dobbs MD Social History Tobacco Use [...] on filedocumented in this encounter Care Teams Administrative Services Coordinator Relationship Specialty Start Date End Date Randa Rosas APRN [address] [facility] [place] [phone] PCP - General 12/29/12 04/16/22 documented as of this encounter
--- OUTSIDE RECORDS SUMMARY | 2024-11-18 16:58 | XMS_ITS | Encounter Summary ---
Author Organization [facility] Address [facility] [place] [address] Care Team Providers Care Framing Inspector Name Role Phone Randa Rosas VALENTIN Primary Care Provider +1- [phone] Encounter Details Date Type Department Care Team (Latest Contact Info) Description 10/16/2014 8:16 AM EST - 10/16/2014 11:59 PM [facility] Hospital Encounter Hematology and Oncology at [facility] [place] [address] Nas Dobbs MD Rectal cancer Discharge Disposition: [...] mouth daily. oxyCODONE-acetamino phen (PERCOCET) 5-325 mg per tabletIndications:B ack pain,Rectal cancer Take 1 tablet by mouth every 4 hours as needed for Pain. 180 tablet 0 06/29/2014 10/23/2014 UNABLE TO FIND 0.1 mLs by Intracavernosal [...] Priority Date/Time Associated Diagnosis Comments HEMOGRAM Routine 10/16/2014 8:33 AM EST Rectal cancer DIFFERENTIAL, AUTOMATED Routine 10/16/2014 8:33 AM EST Rectal cancer CBC (WITH DIFF) Routine 10/16/2014 8:33 AM EST Rectal cancer CEA Routine 10/16/2014 8:33 AM EST Rectal cancer COMPREHENSIVE METABOLIC PANEL Routine 10/16/2014 8:33 AM EST Rectal cancer documented in this encounter Results * Differential, Automated (10/16/2014 8:33 AM EST) Neutrophil % 74.6 % CERNER MILLENNIUM Neutrophil Absolute 4.55 1.50 - 6.30 x10(3)/mcL CERNER MILLENNIUM Lymph % 16.7 % CERNER MILLENNIUM Lymphocytes Abs 1.0 1.0 - 3.6 x10(3)/mcL CERNER MILLENNIUM Monocyte % 7.2 % CERNER MILLENNIUM Monocyte Abs 0.4 0.2 - 1.0 x10(3)/mcL CERNER MILLENNIUM Eos % 1.0 % CERNER MILLENNIUM Eosinophils Abs 0.1 0.0 - 0.5 x10(3)/mcL CERNER MILLENNIUM Basophil % 0.2 % CERNER MILLENNIUM Baso Absolute 0.0 0.0 - 0.2 x10(3)/mcL CERNER MILLENNIUM Immature Gran % 0.30 % CERN ER MILLENNIUM Comment: Immature granulocytes(IG's)percentage and absolute count will include metamyelocytes, myelocytes, and promyelocytes. Blood smears from CBCs yielding IG's will be scanned manually for concordance. If this scan disagrees with the automated IG or if promyelocytes are noted, a manual differential will be performed. Immature Gran Absolute 0.02 0.00 - 0.05 x10(3)/mcL CERNER MILLENNIUM Blood specimen (specimen) 10/16/2014 8:33 AM EST 10/16/2014 8:39 AM EST Narrative Resulting Agency Comment Spec In Lab Nas Dobbs MD HEMATOLOGY ORDERABLE S CERNER MILLENNIUM * (ABNORMAL) Hemogram (10/16/2014 8:33 AM EST) White Blood Cell 6.1 4.0 - 10.0 x10(3)/mc L CERNER MILLENNIUM Red Blood Cell 4.44(L) 4.63 - 6.08 x10(6)/mc L CERNER MILLENNIUM Hemoglobin 13.7 13.7 - 17.5 gm/dL CERNER MILLENNIUM Hematocrit 39.7(L) 40.0 - 51.0 % CERNER MILLENNIUM Mean Cell Volume 89.4 79.0 - 92.0 fL CERNER MILLENNIUM Mean Cell Hemoglobin 30.9 25.6 - 32.2 pg CERNER MILLENNIUM Mean Cell Hemoglobin Concentration 34.5 32.0 - 36.5 gm/dL CERNER MILLENNIUM Platelet 293 145 - 370 x10(3)/mc L CERNER MILLENNIUM RDW Standard Deviation 42.8 35.0 - 46.0 fL CERNER MILLENNIUM RDW coefficient of variation 13.1 10.9 - 14.4 % CERNER MILLENNIUM Mean Platelet Volume 9.8 9.0 - 12.0 fL CERNER MILLENNIUM Blood specimen (specimen) 10/16/2014 8:33 AM EST 10/16/2014 8:39 AM EST Narrative Resulting Agency Comment Spec In Lab Nas Dobbs MD HEMATOLOGY ORDERABLE S Performing Organization Address [facility] Co de Phone Number [facility] * CEA (10/16/2014 8:33 AM EST) Carcinoembryonic Antigen 1.7 <=3.8 ng/mL CERNER MILLENNIUM Comment: Reference range: ??(20-69 years): Non-smoker: ??less than or equal to 3.8 ng/mL Smoker: ??less than 5.5 ng/ml Blood specimen (specimen) 10/16/2014 8:33 AM EST 10/16/2014 8:39 AM EST Narrative Resulting Agency Comment Spec In Lab Nas Dobbs MD CHEMISTRY ORDERABLES Performing Organization Address [facility] de Phone Number [facility] * (ABNORMAL) Comprehensive metabolic panel (non-fasting) (10/16/2014 8:33 AM EST) Glucose 130 60 - 199 mg/dL CERNER MILLENNIUM Comment:Diabetes: >=200 mg/d L plus symptoms Blood Urea Nitrogen 10 10 - 20 mg/dL CERNER MILLENNIUM Creatinine 0.74(L) 0.80 - 1.50 mg/dL CERNER MILLENNIUM Comment: Please note that the pediatric reference intervals supplied above were not validated [place] [facility]. Results from pediatric patients should be interpreted in conjunction to the patient's age, height and muscle mass. Sodium 141 135 - 145 mmol/L CERNER MILLENNIUM Potassium 4.6 3.5 - 5.0 mmol/L CERNER MILLENNIUM Comment: Please note: ??Patients with WBC >100,000 may have falsely elevated Potassium levels. ??For accurate Potassium quantification in these patients send serum separator tube (gold top) for subsequent determinations. ??Contact the Clinical Chemistry Laboratory if there are any questions. Chloride 101 98 - 107 mmol/L CERNER MILLENNIUM Carbon Dioxide 27 22 - 31 mmol/L CERNER MILLENNIUM Anion Gap 13 5 - 15 mmol/L CERNER MILLENNIUM Calcium 9.7 8.5 - 10.5 mg/dL CERNER MILLENNIUM Protein, Total 7.0 6.4 - 8.3 gm/dL CERNER MILLENNIUM Albumin 4.5 3.2 - 5.2 gm/dL CERNER MILLENNIUM Aspartate Aminotransferase 20 0 - 39 unit/L CERNER MILLENNIUM Alanine Aminotransferase 27 0 - 55 unit/L CERNER MILLENNIUM Alkaline Phosphatase 59 40 - 120 unit/L CERNER MILLENNIUM Bilirubin, Total 0.5 0.2 - 1.3 mg/dL CERNER MILLENNIUM Bilirubin, Direct 0.1 0.0 - 0.3 mg/dL CERNER MILLENNIUM Est Glomerular Filtration Rate >60 >=60 CERNER MILLENNIUM Comment: This estimated GFR (eGFR) value was [...] the following links into your internet browser. [email or web address] [email or web address] Blood specimen (specimen) 10/16/2014 8:33 AM EST 10/16/2014 8:39 AM EST Narrative Resulting Agency Comment Spec In Lab Nas Dobbs MD CHEMISTRY ORDERABLES ROBERTA KENNEDYIUM documented in this encounter Visit Diagnoses Diagnosis Rectal cancer Malignant neoplasm of rectum documented in this encounter Care Teams Framing Inspector Relationship Specialty Start Date End Date Randa Rosas APRN [address] [place] [address] PCP - General 12/29/12 04/16/22 documented as of this encounter
--- OUTSIDE RECORDS SUMMARY | 2024-11-18 16:58 | XMS_ITS | Encounter Summary ---
Author Organization [facility] [place] [address] Care Team Providers Care Calender Worker Helper Name Role Phone Randa Rosas APRN Primary Care Provider +1- [phone] Reason for Visit * Reason Comments Follow-up Encounter Details Date Type Department Care Team (Late st Contact Info) Description 09/13/2014 4:00 PM EDT Follow-Up General Surgery at [facility] [place] [phone] Bobby Hills MD Rectal cancer (Primary Dx) Discharge Disposition: Home Social History Tobacco Use [...] Sign Reading Time Taken Comments Blood Pressure 107/69 09/13/2014 4:06 PM EDT Pulse 85 09/13/2014 4:06 PM EDT Temperature 36.9 ??C (98.4 ??F) 09/13/2014 4:06 PM ED T Respiratory Rate 18 09/13/2014 4:06 PM EDT Oxygen Saturation 98% 09/13/2014 4:06 PM EDT Inhaled Oxygen Concentration - - Weight 108.9 kg (240 lb) 09/13/2014 4:06 PM EDT Height - - Body Mass Index 37.58 06/29/2014 3:14 PM EDT documented in this encounter Progress Notes * Bobby Hills Niko - 09/13/2014 4:50 PM EDT Colon and Rectal Surgery Follow-up Office Visit BMI ~38 12/30/12 CT CAP - NE mets 01/06/13 - Rectal mass biopsies at 5 cm: Invasive adenocarcinoma. 01/10/13 MRI ([facility])- report pending but T3-T4 - threatened CRM anteriorly (prostate), Impression 1. Enhancing rectal mass, consistent with known rectal carcinoma, which extends from the anal vergeto the rectosigmoid junction. This mass contacts the mesorectal fascia with possible involvement ofthe posterior prostate gland, making the lesion T3 or T4. 2. Multiple local/regional lymph nodes. Lymphatic involvement can not be excluded. 02/25/2013 finished chemorads; 04/23/13 = ~8 weeks 05/11/13 lap APR en-bloc prostate-SV's, stents, plastic flap closure ---Pathologic Diagnosis--- A - Rectum and anus, abdominoperineal resection: Adenocarcinoma of the rectum. Tumor stage summary: ypT3 N0 (see synoptic report). SYNOPTIC REPORT: Specific site: Distal rectum. Tumor size (greatest dimension): Approximately 1.5 cm. Tumor grade: Low grade. Extent of invasion: ypT3 (tumor invades through the muscularis propria into pericolorectal tissue. Small vessel (blood/lymphatic) invasion: Not identified. Large vessel (venous) invasion: Not identified. Perineural invasion: Not identified. Peritumoral lymphocytic response: None or mild. Tumor regression grade: 2 (minimal response): residual cancer outgrown by fibrosis. Proximal margin: Uninvolved (greater than 1.0 cm from tumor). Distal margin: Uninvolved (greater than 1.0 cm from tumor). Radial margin: Uninvolved (clearance 2.0 mm to the tumor). Prostatic and seminal vesicle margin: Uninvolved. Regional lymph nodes: ypN0 (no regional lymph node metastasis): 20 nodes examined. Mismatch Repair Protein Expression: Immunostains for MLH1, MSH2, MSH6 and PMS2 reveal intact nuclear staining in tumor cells. CEA (ng/mL) Date Value 04/06/2013 1.5 Last CEA 11/11/14 1.1 Interval History: Feeling great. Gained @ 30 lbs again but now trying to lose it again. Sugars WNL. No bleeding, changes in bowel habits, energy level excellent, working too much long hours 6 days a week 10 hrs / day. No lumps or bumps. See Nurse Jessica's notes re: para-colostomy pressure ulcer form a) hernia b) convex appliance c) hernia belt d) weight gain. On exam looks great. Perineum flap intact no hernia nor tumor implants. Midline no hernia or tumor implants. Colostomy taken down, inspected. large parastomal hernia. Ulcer is now shallow but still 1 cm circum. Doing better s/p visit with WOC last week. Plans 1) parastomal ulcer - improving - f/u as per WOC; no indication for parastomal hernia erpair at this time. 2) colonoscopy ordered - pt prefers me to do it. 3) Oncologic f/u with Dr. Dobbs next month, [address] scans next month 4) RTC 6 mo for oncologic f/u with myself. . I personally spent a total of 25 minutes in [id number] consultation with the patient, of which 15were in patient education and counseling. Bobby Hills MD, MS, FACS, FASCRS imaging clerk Division of Colon and Rectal Surgery [facility] Pager #[phone] documented in this encounter Miscellaneous Notes * Addendum Note - Arsalan Brown - 09/13/2014 5:27 PM EDTAddended by: ARSALAN BROWN on: 09/13/2014 05:27 PM Modules accepted: Orders documented in this encounter Plan of Treatment Not on file documented as of this encounter Procedures Procedure Name Priority Date/Time Associated Diagnosis Comments CEA Routine 09/13/2014 5:32 PM EDT Rectal cancer documented in this encounter Results * CEA (09/13/2014 5:32 PM EDT) Carcinoembryonic Antigen 1.7 <=3.8 ng/mL [facility] Comment: Reference range: ??(20-69 years): Non-smoker: ??less than or equal to 3.8 ng/mL Smoker: ??less than 5.5 ng/ml Blood specimen (specimen) 09/13/2014 5:32 PM EDT 09/13/2014 5:39 PM EDT Narrative Resulting Agency Comment Spec In Lab Bobby Hills MD CHEMISTRY ORDERABLES [facility] documented in this encounter Visit Diagnoses Diagnosis Rectal cancer- Primary Malignant neoplasm of rectum documented in this encounter Care Teams Calender Worker Helper Relationship Specialty Start Date End Date Randa Rosas APRN [address] [place] [address] PCP - General 12/29/12 04/16/22 documented as of this encounter
--- OUTSIDE RECORDS SUMMARY | 2024-11-18 16:58 | XMS_ITS | Encounter Summary ---
Author Organization [facility] Address [facility] [place] [address] Care Team Providers Care Research Spec Name Role Phone Randa Rosas APRN Primary Care Provider +1- [phone] Encounter Details Date Type Department Care Team (Late st Contact Info) Description 01/22/2015 Orders Only Hematology Oncology at [address] [phone] Nas Dobbs MD Social History Tobacco Use [...] on filedocumented in this encounter Care Teams Research Spec Relationship Specialty Start Date End Date Randa Rosas APRN [address] [facility] [place] [address] PCP - General 12/29/12 04/16/22 documented as of this encounter
--- OUTSIDE RECORDS SUMMARY | 2024-11-18 16:58 | XMS_ITS | Encounter Summary ---
Author Organization [facility] [place] [address] Care Team Providers Care Engraver Name Role Phone Randa Rosas APRN Primary Care Provider +1- [phone] Reason for Visit * Reason Onset Date Comments Other 11/21/2014 Encounter Details Date Type Department Care Team (Late st Contact Info) Description 11/21/2014 Telephone [place] [phone] Cherri Howell, RN Other Social History Tobacco Use Types Packs/Day Years [...] encounter Miscellaneous Notes * Telephone Encounter - Cherri Howell, RN - 11/21/2014 4:44 PM EST Reg's significant other, Charlette, called the clinic today with concerns of Reg developing another abscess near the top of his stoma. In reviewing Nighat Lopez's note from August, this has happenedin the past and she had suggested using duoderm. Charlette reports not using duoderm the last time shechanged his appliance. Spoke to Cyndie and without seeing the area it is difficult to assess. Offered an appt for tomorrow but they do not want to drive down tomorrow. They will call on Thursday morning to let us know how things are going. If necessary he can come down Thursday afternoon. Suggested he try to avoid any friction. He reports wearing a nylon wrap to help protect the area when working. They will be changing the appliance tomorrow and will be sure to use the duoderm. He is off for the next couple of days so this may give the area time to heal. Charlette and Reg are both in agreementwith this plan. documented in this encounter Plan of Treatment Not on file documented as of this encounter Visit Diagnoses Not on filedocumented in this encounter Care Teams Engraver Relationship Specialty Start Date End Date Randa Rosas APRN [address] [place] [address] PCP - General 12/29/12 04/16/22 documented as of this encounter
--- OUTSIDE RECORDS SUMMARY | 2024-11-18 16:58 | XMS_ITS | Encounter Summary ---
Author Organization [facility] [place] [address] Care Team Providers Care Ironworker Apprentice Shop Name Role Phone Radna Rosas APRN Primary Care Provider +1- [phone] Encounter Details Date Type Department Care Team (Latest Contact Info) Description 02/14/2015 1:05 PM EDT - 02/14/2015 11:59 PM EDT [place] [address] Randa Rosas APRN [address] [place] [phone] Discharge Disposition: Home Social History Tobacco Use [...] Procedure Name Priority Date/Time Associated Diagnosis Comments U ALBUMIN/CRE RATIO Routine 02/14/2015 1 :32 PM EDT HEMOGLOBIN A1C Routine 02/14/2015 1:16 PM EDT documented in this encounter Results * Microalbumin, urine, random (02/14/2015 1:32 PM EDT) Creatinine, Urine 41 mg/dL LALITHA CHOPRA MILLENNIUM Albumin, Urine <3.0 mg/L CONSTANTIN Little MILLENNIUM Albumin / Creatinin Ratio, Urine <7 mcg/mg Cr ROBERTA MILLENNIUM Comment: Reference Range* Random collection (mcg/mg creatinine) Normal ?<30 Microalbuminuria ?? 30 - 300 Clinical Albuminuria ?? >300 *[place] Diabetes Association. Diabetic Nephropathy. Diabetes Care 1996;(Suppl 1):S24-S27 Exercise within 24 hour, infection, fever, CHF, marked hyperglycemia, and marked hypertension may elevate urinary albumin excretion over baseline values. Urine specimen (specimen) Urine / Unknown 02/14/2015 1:32 PM EDT 02/14/2015 1:43 PM EDT Narrative Resulting Agency Comment Spec In Lab Randa Alison VALENTIN URINE ORDERABLES [facility]ERTA [facility] * (ABNORMAL) Hemoglobin A1c (02/14/2015 1:16 PM EDT) Hemoglobin A1c 7.1(H) 4.3 - 5.6 % [facility] Comment: Reference Range: 4.3 - 5.6% 5.7 [...] Mellitus, Diabetes Care 2013; 36: Suppl. 1, N76-85 Estimated Average Glucose 157 mg/dL [facility] Comment: eAG equivalents for HbA1c percentages: HbA1c(%) ?eAG(mg/dL) 6.0 ?126 6.5 ?140 7.0 ?154 7.5 ?169 8.0 ?183 8.5 ?197 9.0 ?212 9.5 ?226 10.0 ? 240 Limitations: The eAG calculation has not been validated on women, individuals below 18 years old and above 70 years old, and individuals with hemoglobinopathies. Additional resources are available on the ADA website: http://One On One Ads.com/DHMCadacalc Jesse CARBAJAL, Robinson Everett, Mil R, et al. ??Translating the A1C assay into estimated average glucose values. ??Diabetes Care 2008:31(8):2271-4154. Blood specimen (specimen) Venous Draw / Unknown 02/14/2015 1:16 PM EDT 02/14/2015 1:32 PM EDT Narrative Resulting Agency Comment Spec In Lab Randa Rosas APRN CHEMISTRY ORDERABL ES Performing Organization Address City/State/[facility] Co tn Phone Number [facility] documented in this encounter Visit Diagnoses Not on filedocumented in this encounter Care Teams Ironworker Apprentice Shop Relationship Specialty Start Date End Date Randa Rosas APRN [address] [place] [address] PCP - General 12/29/12 04/16/22 documented as of this encounter
--- OUTSIDE RECORDS SUMMARY | 2024-11-18 16:58 | XMS_ITS | Encounter Summary ---
Author Organization [facility] Address [facility] [place] [address] Care Team Providers Care Meat Cooler Name Role Phone Randa Rosas APRN Primary Care Provider +1- [phone] Encounter Details Date Type Department Care Team (Late st Contact Info) Description 09/05/2014 Telephone [place] [phone] Nazanin Delacruz MD [facility] [place] [address] Social History Tobacco Use Types Packs/Day Years [...] * Telephone Encounter - Nazanin Delacruz - 09/05/2014 6:44 PM EDT Telephone Note: Reg Salazar is a 59 y.o. male s/p [id number] proctectomy, APR, colostomy, cystoscopy for stent placement, left gracilis flap for rectal cancer by Dr. Hills on 05/11/2014. Mr. Marie narayanan calls because he has had some skin breakdown just above his ostomy. Pt notes that just superiorto his ostomy he had a small skin blister that formed due to trauma from his appliance. Pts stated that at first there was some pus draining from the ostomy but does drain reddish/yellow fluid. There is some surrounding erythema surrounding the lesion. He denies fevers, chills, pain, or obstructive symptoms. His ostomy output is normal. Likely that this is a skin blister secondary to trauma from his ostomy appliance. Recommended that he monitor his symptoms closely - specifically those for infection or obstruction. He should be evaluated by a physician this week. Minimize trauma to that area with his appliance and to keep it clean. NAZANIN DELACRUZ MD documented in this encounter Plan of Treatment Not on file documented as of this encounter Visit Diagnoses Not on filedocumented in this encounter Care Teams Meat Cooler Relationship Specialty Start Date End Date Randa Rosas APRN [address] [place] [address] PCP - General 12/29/12 04/16/22 documented as of this encounter
--- OUTSIDE RECORDS SUMMARY | 2024-11-18 16:58 | XMS_ITS | Encounter Summary ---
Author Organization [facility] Address [facility] [place] [address] Care Team Providers Care V Belt Skiver Name Role Phone Randa Rosas APRN Primary Care Provider +1- [phone] Reason for Visit * Reason Comments Follow-up Encounter Details Date Type Department Care Team (Late st Contact Info) Description 09/13/2014 4:00 PM EDT Office Visit General Surgery at [facility] [place] [phone] CLINIC, DR POOLE Attention to colostomy (Primary Dx) Discharge Disposition: Home Social History [...] Progress Notes * Nighat Lopez RN - 09/14/2014 10:40 AM EDT Pt seen in General Surgery cliinic along with Dr. Hills today. The ulceration noted last week is about 1/2 the size today. Much improved now that pt not wearing the convex moldable barrier and the hernia belt. Pt has had blow outs of pouch every day though! He came in today with the old convex barrier on because he had run out of the Coloplast #[id number] pouch. I had pt sit and stand today and he does have concave area beneath his stoma and I decided to cut the opening much more generous in hopestt pt will get a good seal along the inferior aspect and not allow stool to get beneath the waferand blow it off. I gave him the pattern and cut one extra out. His s.o. Charlette does his pouch change with him and could not be here again today. I used a bead of paste as we had last week. His peristomal skin is nicely intact and I do not feel it will kaden adversely effected by this larger opening, given this is a colostomy. He is to RT for colonoscopy in the near future and I will follow the same day. He will call if he continues with blow outs. I gave him 6 more pouches and [facility] if these are working better. I also gave him a few more of the Extrathin Duoderm dressings. Told to continue until the wound has closed. documented in this encounter Plan of Treatment Not on file documented as of this encounter Visit Diagnoses Diagnosis Attention to colostomy- Primary documented in this encounter Care Teams V Belt Skiver Relationship Specialty Start Date End Date Randa Rosas APRN [address] [place] [phone] PCP - General 12/29/12 04/16/22 documented as of this encounter
--- OUTSIDE RECORDS SUMMARY | 2024-11-18 16:58 | XMS_ITS | Encounter Summary ---
Author Organization [facility] [place] [address] Care Team Providers Care [employer] Ticket Checker Name Role Phone Randa Rosas APRN Primary Care Provider [phone]- [phone] Reason for Visit * Reason Comments Rectal Cancer Follow-up Encounter Details Date Type Department Care Team (Late st Contact Info) Description 04/10/2015 4:30 PM EDT [place] [address] Bobby Hills MD Rectal cancer Discharge Disposition: Home Social [...] Sign Reading Time Taken Comments Blood Pressure 123/68 04/10/2015 4:28 PM EDT Pulse 80 04/10/2015 4:28 PM EDT Temperature - - Respiratory Rate 16 04/10/2015 4:28 PM EDT Oxygen Saturation 98% 04/10/2015 4:28 PM EDT Inhaled Oxygen Concentration - - Weight 113.5 kg (250 lb 3.6 oz) 04/10/2015 4:28 PM EDT Height - - Body Mass Index 39.18 02/22/2015 3:27 PM EDT documented in this encounter Progress Notes * Bobby Hills - 04/10/2015 12:23 PM EDT Colon and Rectal Surgery Follow-up Office Visit BMI ~38 12/30/12 CT CAP - NE mets 01/06/13 - Rectal mass biopsies at 5 cm: Invasive adenocarcinoma. 01/10/13 [place] ([facility] [place] report pending but T3-T4 - threatened CRM [...] reveal intact nuclear staining in tumor cells. 02/14/15 1. Stable presacral soft tissues with small hypodense collection in the region of prior prostatectomy. Findings are unchanged in comparison with the prior CT scan and are favored to representpost surgical changes. However, interval follow-up is recommended. 2. Unchanged right abdominal wall and left parastomal wall hernia without evidence of obstruction. 03/23/15 : The entire examined colon appeared normal. The entire examined colon is normal. Recommendation: - Repeat colonoscopy in 2 years for surveillance WITH GOLYTELY PREP. Return to my office as previously scheduled. CEA (ng/mL) Date Value 02/14/2015 2.0 10/16/2014 1.7 09/13/2014 1.7 04/06/2013 1.5 11/11/14 1.1 Interval History: Mr. Reg Salazar and Charlette return for his regularly scheduled oncologic followup. He states that he has done very well. He has no problems except minor sores around his ostomy, which are essentially well healed with some Duoderm. Charlette has been helping him with that. His appetite, energy level, and weight are all up and he is trying to lose weight now that it is summer time again. 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 He does not think he is over doing it. He notices no lumps, bumps, nodes, or nodules anywhere about his body. No bleeding. He is going to be seeing Dr. Nas Dobbs every six months. On physical exam he looks fantastic. No Virchow's node. No Sister Babita Sims's node. His lower midline incision is well-healed without herniation. He has a large bulge around the colostomy. The site is intact, but there is no obvious worsening of the hernia that he is known to have. No groin lymphadenopathy. Rectum: His perineal wound incision is completely well healed and without hernia or tumor implant. Impression: Doing well several years after a very difficult abdominoperineal resection. Plan: Charlette reminded me that it was the hardest APR that I have ever done and total surgery time was over 14 hours. The patient has done exceptionally well. He has normal CEAs. His CT scan is stable, as is his parastomal hernia. His CEA level is flat and his recent colonoscopy was completely within normal limits. I agree with Dr. Dobbs seeing the patient every six months and due to the difficult travel here I will plan on seeing the patient once a year, more often if necessary. They would like to see Nighat Lopez just for a checkup whenever they come down to see here and I will make sure it is booked thusly. . I personally spent a total of 25 minutes in [id number] consultation with the patient, of which 15were in patient education and counseling. Bobby Hills MD, MS, FACS, FASCRS parcel post order clerk Division of Colon and Rectal Surgery [facility] Pager #[phone] documented in this encounter Plan of Treatment Not on file documented as of this encounter Visit Diagnoses Diagnosis Rectal cancer Malignant neoplasm of rectum documented in this encounter Care Teams [employer] Ticket Checker Relationship Specialty Start Date End Date Randa Rosas APRN [address] [place] [address] PCP - General 12/29/12 04/16/22 documented as of this encounter
--- OUTSIDE RECORDS SUMMARY | 2024-11-18 16:58 | XMS_ITS | Encounter Summary ---
Author Organization [facility] Address [facility] [place] [address] Care Team Providers Care Freelance Copywriter Name Role Phone Randa Rosas APRN Primary Care Provider [phone]- [phone] Encounter Details Date Type Department Care Team (Latest Contact Info) Description 10/16/2014 8:07 AM EST - 10/16/2014 11:59 PM [facility] Hospital Encounter CT Scan at [facility] [place] [address] CLINIC, DR VIRGILIO Dobbs, Nas Weaver MD Discharge Disposition: Home Social History Tobacco Use [...] SyrgIndications:Mal e erectile dysfunction 0.1 mLs by [facility] [place] [place].(Non-Drug; Combo Route) route as needed (use no [...] Miscellaneous Notes * Ancillary Services Notes - Carlitos Gaytan - 10/16/2014 10:02 AM EST You had a CT Scan on Thursday @ 1000 am Per [facility] Policy it is important that you stop taking your Metformin (Diabetic Medication) for 2 days following the injection of IV iodinated contrast. You can start taking your Metformin on Thursday @ 1000 am . If you have any questions or concerns, contact your primary care provider. Also drink plenty of water following your CT Scan to help clear the IV Iodinated contrast out of your body. Thank You, [facility] [place] Scan Dept documented in this encounter Plan of Treatment Not on file documented as of this encounter Procedures Procedure Name Priority Date/Time Associated Diagnosis Comments CT CHEST ABDOMEN PELVIS W CONTRAST (GENERIC) Routine 10/16/2014 10:16 AM EST documented in this encounter Results * (ABNORMAL) CT chest, abdomen, & pelvis with contrast (10/16/2014 10:16 AM EST) Anatomical Region Laterality Modality Computed Tomogra phy 10/16/2014 10:1 6 AM EST Narrative 10/16/2014 10:[address] Chest / Abdomen / Pelvis With Contrast Clinical History Follow up rectal cancer Comparison April 06, 2013. Technique Contrast-enhanced CT of the chest abdomen and pelvis following the intravenous administration of 110 cc Omnipaque 350 intravenous contrast and oral contrast. Findings Chest: ??No pulmonary nodules. ??No enlarged lymph nodes. ??No central pulmonary emboli. ??No effusions. ??Stable left and right coronary artery calcification. ?? Interval removal of right internal jugular MediPort catheter without residual SVC thrombus. Abdomen/pelvis: ??Liver, gallbladder, spleen and pancreas are normal. ??Right and left adrenal glands are normal. ??New mild fullness of both collecting systems and ureters to the pelvic inlet. ??No enlarged retroperitoneal lymph nodes. ??No enlarged iliac, inguinal nor deep pelvic lymph nodes. ??New ventral hernia containing loops of small bowel without CT evidence of incarceration. ??New left supra stomal hernia containing loops of small bowel without radiographic evidence of incarceration. ??New left colostomy. Patient is newly status post APR with pelvic clips/sutures in place. ??Soft tissue is present at the proctectomy site. ??A small hypodense region within this measuring up to 24 x 13 mm in the pre coccygeal space may represent postoperative seroma. ??Extensive soft tissue thickening is present along the entire presacral space. ??This soft tissue is intimately adjacent to the entire posterior bladder wall and base. Review of osseous structures shows no suspicious lesions. Impression Unexpected findings: ?? Presacral soft tissue intimately associated with the posterior bladder wall extending down to the bladder base where there is a small hypodense collection at the region of prior proctectomy which may represent a small postoperative seroma. ??I cannot distinguish whether this is entirely postsurgical soft tissue or whether or not there is recurrent disease within this. PET scan may be helpful. New mild collecting system and ureteral fullness to the pelvic inlet. ??Cannot distinguish whether this is due to limited outflow from the distorted bladder morphology due to presacral soft tissue and postoperative anatomic changes. ?? Surveillance of serologic indication of renal function suggested. New abdominal wall hernias as described above. ?? New left colostomy. Resulting Agency Comment Unexpected Finding Procedure Note Swetha Bell MD - 11/17/[address] Chest / Abdomen / Pelvis With Contrast Clinical History Follow up rectal cancer Comparison April 06, 2013. Technique Contrast-enhanced CT of the chest abdomen and pelvis following theintravenous administration of 110 cc Omnipaque 350 intravenous contrast and oralcontrast. Findings Chest: No pulmonary nodules. No enlarged lymph nodes. No centralpulmonary emboli. No effusions. Stable left and right coronary arterycalcification. Interval removal of right internal jugular MediPort catheter withoutresidual SVC thrombus. Abdomen/pelvis: Liver, gallbladder, spleen and pancreas are normal.Right and left adrenal glands are normal. New mild fullness of both collectingsystems and ureters to the pelvic inlet. No enlarged retroperitoneal lymph nodes.No enlarged iliac, inguinal nor deep pelvic lymph nodes. New ventral hernia containing loops of small bowel without CT evidence of incarceration. Newleft supra stomal hernia containing loops of small bowel without radiographic evidence of incarceration. New left colostomy. Patient is newly status post APR with pelvic clips/sutures in place. Soft tissue is present at the proctectomy site. A small hypodense regionwithin this measuring up to 24 x 13 mm in the pre coccygeal space may represent postoperative seroma. Extensive soft tissue thickening is present alongthe entire presacral space. This soft tissue is intimately adjacent to theentire posterior bladder wall and base. Review of osseous structures shows no suspicious lesions. Impression Unexpected findings: Presacral soft tissue intimately associated with the posterior bladderwall extending down to the bladder base where there is a small hypodensecollection at the region of prior proctectomy which may represent a smallpostoperative seroma. I cannot distinguish whether this is entirely postsurgical softtissue or whether or not there is recurrent disease within this. PET scan may be helpful. New mild collecting system and ureteral fullness to the pelvic inlet.Cannot distinguish whether this is due to limited outflow from the distortedbladder morphology due to presacral soft tissue and postoperative anatomicchanges. Surveillance of serologic indication of renal function suggested. New abdominal wall hernias as described above. New left colostomy. Nas Dobbs MD IMG CT ORDERABLES documented in this encounter Visit Diagnoses Not on filedocumented in this encounter Administered Medications Inactive Administered Medications - up to 3 most recent administrations Medication Order MAR Action Action Date Dose Rate Site iohexol (OMNIPAQUE) 350 mg iodine/mL injection 17,500 mg 17,500 mg (50 mL), Oral, ONCE PRN, 1 dose, Starting on Thu10/16/14 at 1000, Until Thu10/16/14 at 0800, Per Protocol, Routine Given 10/16/2014 8:00 AM EST 17,500 mg iohexol (OMNIPAQUE) 350 mg iodine/mL injection 38,500 mg 38,500 mg (110 mL), Intravenous, ONCE PRN, 1 dose, Starting on Thu10/16/14 at 1000, Until Thu10/16/14 at 1011, Per Protocol, Routine Given 10/16/2014 10:11 AM EST 38,500 mg documented in this encounter Care Teams Freelance Copywriter Relationship Specialty Start Date End Date Randa Rosas APRN [address] [place] [address] PCP - General 12/29/12 04/16/22 documented as of this encounter
--- OUTSIDE RECORDS SUMMARY | 2024-11-18 16:58 | XMS_ITS | Encounter Summary ---
Author Organization [facility] Address [facility] [place] [address] Care Team Providers Care Sweater Operator Name Role Phone Randa Rosas APRN Primary Care Provider [phone]- [phone] Reason for Visit * Reason Comments Abdominal Pain * Auth/Cert Specialty Diagnoses / Procedures Referred By Contac t Referred To Contact Diagnoses Partial small bowel obstruction Hypertension, unspecified type Procedures K56.69 Referral ID Status Reason Start Date Expiration Date Visits Re quested Visits Authorized [id number] 1 1 Encounter Details Date Type Department Care Team (Latest Contact Info) Description 08/24/2017 7:30 AM EDT - 09/01/2017 11:40 AM EDT Hospital Encounter 4 [place] [address] Swetha Price MD [place], Theo Mckeon MD [facility] [place] [address] Partial small bowel obstruction; Hypertension, unspecified type Discharge Disposition: Home Social History Tobacco [...] Sign Reading Time Taken Comments Blood Pressure 112/63 09/01/2017 7:32 AM EDT Pulse 84 08/27/2017 3:20 PM EDT Temperature 36.8 ??C (98.2 ??F) 09/01/2017 7:32 AM ED T Respiratory Rate 20 09/01/2017 7:32 AM EDT Oxygen Saturation 97% 09/01/2017 7:32 AM EDT Inhaled Oxygen Concentration - - Weight 101.9 kg (224 lb 10.4 oz) 09/01/2017 6:19 AM EDT Height 170.2 cm (5' 7) 08/27/2017 3:20 PM EDT Body Mass Index 35.18 08/27/2017 3:20 PM EDT documented in this encounter Discharge Summaries * Cortez Roca MD - 08/29/2017 7:13 AM EDT General Surgery Inpatient - Discharge Summary Patient Name: Reg Salazar Patient Age: 62 y.o. Birthdate: 1955 Admit date: 08/24/2017 Discharge date: 09/01/2017 Admitting Physician: Theo Washington MD Primary Diagnosis: Partial Small Bowel Obstruction Secondary Diagnosis: Active Hospital Problems Diagnosis ??? Partial small bowel obstruction Resolved Hospital Problems Diagnosis Date Resolved No resolved problems to display. Active Non-Hospital Problems Diagnosis ??? Neurogenic bladder ??? Colostomy in place ??? Hypertension ??? Snoring ??? Diabetes mellitus ??? Obesity (BMI 35.0-39.9 without comorbidity) ??? Rectal cancer HPI: Mr. Salazar was seen in the ER as a surgical consult. He is a 62 y.o. 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 He subsequently developed a parastomal hernia and an incisional hernia. He has known about these for years. He presented to the ER with a two week history of malaise and intermittent nausea, vomiting and inability to tolerate a diet. He was seen at an outside hospital with the same symptoms prior to his presentation and represented with similar symptoms. A CT scan performed today was concerning for partial small bowel obstruction. Both hernias are visible on the scan and fill with contrast. In comparison with a scan done in November of this year, the hernias appear largely unchanged. There was contrast throughout the small bowel, although several loops in the pelvis appear more dilated than previously seen on imaging in November. On physical exam, his abdomen was soft and minimally tender in the LLQ. He had a palpable parastomal hernia that was soft but was not reducible. Likewise his ventral hernia was soft but non-reducible. His ostomy was pink and patent with gas and stool in the bag although he stated that the contents have been more liquid than usual. Operations/Major Procedures: None Hospital Course: Reg Salazar was admitted and an NG tube was placed to low wall suction. Initially the tube put out 4L in 24 hours. Day by day this output came down and it was decided that the NG tube could be removed and a trial of clear liquid begun. On hospital day 7, he tolerated a regular diet. Throughout his stay he had acceptable ostomy output of succus and stool. He was deemed stable for discharge 09/01, with recommendations for a low residue diet. Important Studies and Lab Data: See below. Microbiology: ?? Microbiology Results (Last 30 days) ? Procedure Component Value Units Date/Time ? Urine culture [[id number]] (Abnormal) Collected: 08/27/17 0739 ? Lab Status: Final result Specimen: Clean Catch Urine Updated: 08/29/17 0859 ? Urine Culture -- (A) ? Greater than 100,000 cfu/ml Coagulase negative Staphylococcus species Susceptibility testing not routinely performed for Coagulase Negative Staphylococcus species and other Gram Positive organisms from urine. ? Labs: No results found for: NA, K, CL, CO2, BUN, CREATININE, GLUCOSE CBC No results found for: WBC, HGB, HCT, PLATELET Studies: CT Abdomen/Pelvis 08/24 FINDINGS: ?? Lower chest: No consolidation or [...] density and fluid likely reflecting posttreatment changes. KUB 08/26 FINDINGS: There is residual contrast from the prior CT scan of 08/24/2017 in the left colon distal transverse colon splenic flexure and proximal descending colon region and also overlying the pelvis within the ostomy bag. The large bowel is not distended and the small bowel gas pattern has normalized since the prior study, there is a nasogastric tube with the tip in the gastric fundus but one of the sideholes is probably still in the distal esophagus to the GE junction. Lung bases are clear. No organomegaly is seen. Small therapy seeds project over the pubic symphysis at the prostate. ?? IMPRESSION Residual contrast in the left side of the colon and at the ostomy. Discharge Exam: Last value Range last 12 hrs Temperature Temp: 36.8 ??C (98.2 ??F) Temp: [36.8 ??C (98.2 ??F)-37.1 ??C (98.8 ??F)] Heart Rate Heart Rate: 84 Heart Rate: -- Blood Pressure BP: 112/63 BP: (107-120)/(55-70) Respiratory Rate Resp: 20 Resp: [17-20] SpO2 SpO2: 97 % SpO2: [94 %-97 %] I/Os: I/O last 3 completed shifts: In: 2823 [P.O.:150; I.V.:175] Out: 2495 [Urine:2370; Stool:125] Discharge Plans: Discharge to: Home Discharge Conditions/Prognosis: Stable Discharge Medications: The following medications have been prescribed for you. If you notice any adverse reactions to your medications, please contact your primary care physician immediately or go tothe nearest Emergency Department. Your Medications New Medications Dose Details pantoprazole 40 mg Tbec Commonly known as: PROTONIX Take 1 tablet by mouth daily. 40 mg Quantity: 90 tablet Refills: 3 Continued medications, unchanged Dose Details atorvastatin 40 mg Tab Commonly known as: LIPITOR Take 20 mg by mouth daily. 1/2 tab= 20mg 20 mg Refills: 0 glipiZIDE 10 mg Tr24 Commonly known as: GLUCOTROL XL Take 10 mg by mouth daily. 10 mg Refills: 0 INDOMETHACIN ORAL Take by mouth. Reported on 01/01/2017 Refills: 0 JANUMET ORAL Take by mouth 2 times daily. Refills: 0 lisinopril 10 mg Tab Commonly known as: PRINIVIL;ZESTRIL Take 10 mg by mouth 2 times daily. 10 mg Refills: 0 multivitamin Tab Commonly known as: THERAGRAN Take 1 tablet by mouth daily. 1 tablet Refills: 0 oxyCODONE-acetaminophen 5-325 mg Tab Commonly known as: PERCOCET Take 1 tablet by mouth every 4 hours as needed for Pain. 1 tablet Quantity: 180 tablet Refills: 0 Syringe with Needle (Disp) 1 mL 25 gauge x 5/8 Syrg Commonly known as: MONOJECT TB SAFETY SYRINGE 0.1 mLs by [facility].(Non-Drug; Combo Route) route as needed (use no more than 3 times a week). 0.1 mL Quantity: 25 Syringe Refills: 11 VIAGRA 100 mg Tab Take 100 mg by mouth as needed. Generic drug: sildenafil 100 mg Refills: 0 Updated Allergies/ADRs: Allergies Allergen Reactions ??? Penicillins Rash Scheduled Appointments: Future Appointments Date Time Provider Department Center 10/01/2017 2:30 PM Lenore Baron, MARBLE CUTTER OPERATOR [facility] Outpatient Services/Studies: No discharge procedures on file. Instructions Given to Patient at Discharge:. An After Visit Summary was printed and given to the patient. Patient Instructions [facility] of Acute Care Surgery Discharge Instructions CALL YOUR PHYSICIAN'S OFFICE [...] or new drainage from your wound. Medications: [] Pain Control [x] Non-narcotic pain medication - We recommend alternating with tylenol 650mg and ibuprofen 400-600mg every 6 hours (ie; tylenol at12pm, ibuprofen 3pm, tylenol 6pm, ibuprofen 9pm). - Do not take more than 4,000mg (4g) of tylenol in 24hours. [] Narcotic pain medication 1. Constipation: Narcotics can cause severe constipation. [...] Shower: - It is ok to shower . You can shower per usual routine and let soapy water run over your incision.Pat incision dry with a clean, dry towel. Do not submerge the wound under water (no swimming or soaking) for at least 6 weeks, or until approved by your surgeon. Diet: [x] You have been cleared for a low residue diet (see sheet from ostomy nursing) Activity: - It is normal to feel [...] recommend at least 4 times a day. Who to call? If you have concerns or questions: - During the day, it is best to call the [facility] to speak with the Surgery nurses. The number is [phone]. - During the night or weekends call the [facility] wooling machine operator at [phone] and ask to speak to the surgery resident marketing automation analyst for general surgery. Please note: Your surgeon may not be Office Services Clerk, especially during the night or on weekends, so be ready to describe yourself and your surgery when you call. Follow up appointments: No future appointments. [] Follow-up appointment with General Surgery has already been scheduled [x] A request for a follow-up appointment has been made and you should receive information via phone/mail in the next week. If you do not hear anything, please call the clinic at [phone] to confirm or reschedule. If you need a prior authorization, please call the General Surgery Clinic nurses [phone] for prior authorizations assistance CC: Randa Rosas APRN Signed: Cortez Roca MD 09/01/2017 10:07 AM\ documented in this encounter Discharge Instructions * Patient Instructions* Cortez Roca MD - 09/01/2017 10:02 AM EDT [facility] Department of Acute Care Surgery Discharge Instructions CALL YOUR PHYSICIAN'S OFFICE [...] or new drainage from your wound. Medications: [] Pain Control [x] Non-narcotic pain medication - We recommend alternating with tylenol 650mg and ibuprofen 400-600mg every 6 hours (ie; tylenol at12pm, ibuprofen 3pm, tylenol 6pm, ibuprofen 9pm). - Do not take more than 4,000mg (4g) of tylenol in 24hours. [] Narcotic pain medication 1. Constipation: Narcotics can cause severe constipation. [...] Shower: - It is ok to shower . You can shower per usual routine and let soapy water run over your incision.Pat incision dry with a clean, dry towel. Do not submerge the wound under water (no swimming or soaking) for at least 6 weeks, or until approved by your surgeon. Diet: [x] You have been cleared for a low residue diet (see sheet from ostomy nursing) Activity: - It is normal to feel [...] recommend at least 4 times a day. Who to call? If you have concerns or questions: - During the day, it is best to call the [facility] to speak with the Surgery nurses. The number is [phone]. - During the night or weekends call the [facility] wooling machine operator at [phone] and ask to speak to the surgery resident marketing automation analyst for general surgery. Please note: Your surgeon may not be Office Services Clerk, especially during the night or on weekends, so be ready to describe yourself and your surgery when you call. Follow up appointments: No future appointments. [] Follow-up appointment with General Surgery has already been scheduled [x] A request for a follow-up appointment has been made and you should receive information via phone/mail in the next week. If you do not hear anything, please call the clinic at [phone] to confirm or reschedule. If you need a prior authorization, please call the General Surgery Clinic nurses [phone] for prior authorizations assistance * Attachments The following attachments cannot be sent through Care Everywhere. * OSTOMY CARE (SPANISH) * LOW-FIBER DIET (SPANISH) documented in this encounter Medications at Time of Discharge Medication Sig Dispensed Refills Start Date End Date atorvastatin (LIPITOR) 40 mg tablet Take 40 mg by mouth daily. glipiZIDE (GLUCOTROL) 10 mg 24 hr tablet Take 10 mg by mouth 2 times daily. multivitamin (THERAGRAN) tablet Take 1 tablet by mouth daily. pantoprazole (PROTONIX) 40 mg Tablet, Delayed Release (E.C.) Take 1 tablet by mouth daily. 90 tablet 3 09/01/2017 08/03/2020 JANUMET 50-1,000 mg Tablet Take 1 tablet by mouth 2 times daily. 08/18/2017 12/05/2022 oxyCODONE-acetaminophen (PERCOCET) 5-325 mg TabletIndications:Recta l cancer Take 1 tablet by mouth every 4 hours as needed for Pain. 180 tablet 01/01/2017 09/24/2017 Syringe with Needle, Disp, (MONOJECT TB SAFETY SYRINGE) 1 mL 25 x 5/8 SyrgIndications:Male erectile dysfunction 0.1 mLs by [facility].(Non-Drug; Combo Route) route as needed (use no more than 3 times a week). 25 Syringe 11 05/09/2014 08/03/2020 lisinopril (PRINIVIL;ZESTRIL) 10 mg tablet Take 10 mg by mouth 2 times daily. 01/31/2022 sildenafil (VIAGRA) 100 mg tablet Take 100 mg by mouth as needed. 11/18/2017 INDOMETHACIN ORAL Take by mouth. Reported on 01/01/2017 08/03/2020 documented as of this encounter Progress Notes * Ty Valenzuela RN - 09/01/2017 11:25 AM EDT Patient Name: Reg Salazar Patient Age: 62 y.o. Birthdate: 1955 Admit date: 08/24/2017 Attending Physician: Theo Washington MD Pt d/c to home with no services, reviewed d/c instructions with patient and family. Pt aware of when and why to notify MD and of follow up appt. Pt had no questions regarding summary instrctions. IV d/c'd, catheter intact, rx received by pt. Pt left with family via wheelchair who will transport home. All belongings * Edin Obrien MD - 09/01/2017 9:52 AM EDT Trauma Service - Progress Note Patient Name: Reg Salazar : [id number] MR#: [id number] 08/24/2017 Hospital Day 8 days Problem List: Active Hospital Problems Diagnosis ??? Partial small bowel obstruction Resolved Hospital Problems Diagnosis Date Resolved No resolved problems to display. FEBApril 2013 Multiple hernias (incisional) Active Non-Hospital Problems Diagnosis ??? Neurogenic bladder ??? Colostomy in place ??? Hypertension ??? Snoring ??? Diabetes mellitus ??? Obesity (BMI 35.0-39.9 without comorbidity) ??? Rectal cancer Events over the last 24 hrs: Two weeks of emesis Subjective: Advanced to regular diet No cramping abdominal pain No nausea or emesis Ready for discharge Objective: Physical Exam: Last Set of Vitals and range of vitals over past 24 hours: Last value Range last 24 hrs Temperature Temp: 36.8 ??C (98.2 ??F) Temp: [36.6 ??C (97.9 ??F)-37.1 ??C (98.8 ??F)] Heart Rate Heart Rate: 84 Heart Rate: -- Blood Pressure BP: 112/63 BP: (107-137)/(55-94) Respiratory Rate Resp: 20 Resp: [17-20] SpO2 SpO2: 97 % SpO2: [94 %-99 %] Physical Exam Comfortable, dressed, ready to go No respiratory compromise Regular pulse Abdomen soft, nontender Does have diffuse hernia but no suspicion of incarceration Laboratory (Last 24 Hours): Recent Results (from the past 24 hour(s)) POCT Glucose Result Value Ref Range POC Glucose 282 (H) 65 - 199 mg/dL POCT Glucose Result Value Ref Range POC Glucose 239 (H) 65 - 199 mg/dL POCT Glucose Result Value Ref Range POC Glucose 259 (H) 65 - 199 mg/dL POCT Glucose Result Value Ref Range POC Glucose 288 (H) 65 - 199 mg/dL POCT Glucose Result Value Ref Range POC Glucose 170 65 - 199 mg/dL POCT Glucose Result Value Ref Range POC Glucose 213 (H) 65 - 199 mg/dL Assessment/Plan: Partial small bowel obstruction - has had return of intestinal function Tolerating regular diet Discharge today Dietary counseling for low residue diet Discussed low fiber diet. EDIN OBRIEN MD 09/01/2017 * Cortez Roca MD - 08/31/2017 10:50 AM EDT ACS Inpatient Note HPI: Reg Salazar is a 62 y.o. male, with a history of DM, HTN, Chemorads, APR, FOLFOX x8 in 04/2013 for ypT3N1 adenocarcinoma of the rectum, with parastomal hernia and incisional hernia who presents with a two week history of malaise and intermittent nausea, vomiting and inability to tolerate a diet.He was admitted to an OSH two weeks ago when his symptoms started and he was there for a few days before being discharged. 24 hour events: - tolerated clears - no N/V - ambulating PHYSICAL EXAM: Temp: [36.8 ??C (98.2 ??F)-37.3 ??C (99.1 ??F)] Heart Rate: -- Resp: [17-18] BP: (123-143)/(64-94) SpO2: [96 %-99 %] Heart Rate from SPO2: [67 bpm-81 bpm] I/O last 3 completed shifts: In: 4872 [P.O.:1560; I.V.:1060] Out: 4025 [Urine:3950; Stool:75] NGT- 950cc General: NAD, AO x 3, flushed HEENT: PERRLA, EOMI CV: RRR, no m/r/g Pulm: CTAB, no w/r/r Abd/Pelvis: obese, soft, colostomy stoma pink with succus and flatus in appliance, large parastomalhernia which is soft and non reducible, also with incisional hernia near the umbilicus which is also soft and non reducible, neither hernia has any skin changes overtop of it, nontender, nondistended Extremities: warm, no edema Neuro: CN II-XII intact LABS: Recent Labs 08/31/17 0808 WBC 8.0 HGB 12.8* HCT 37.8* PLATELET 326 No results for input(s): INR in the last 72 hours. Recent Labs 08/31/17 0808 NA 137 K 4.8 CL 99 CO2 23 BUN 23* CREATININE 0.61* IMAGING: CT abd/pelvis 08/24/2017: 1. Complex ventral hernias are unchanged in [...] density and fluid likely reflecting posttreatment changes. ASSESSMENT/Plan This is a 62 y.o., male, with a history of DM, HTN, Chemorads, APR, FOLFOX x 8 in 04/2013 for [id number] of the rectum, with parastomal hernia and incisional hernia who presents with a two week history of malaise and intermittent nausea, vomiting and inability to tolerate a diet concerning for partial small bowel obstruction now resolved. - Low residue diet today, if tolerates, can consider discharge tomorrow morning - DC PICC/TPN today - Pain controlled, no medication needed - Lovenox and SCDs Cortez Roca MD 08/31/2017 10:50 AM ACS [id number] * Edin Obrien MD - 08/31/2017 10:14 AM EDT Trauma Service - Progress Note Patient Name: Reg Salazar : [id number] MR#: [id number] 08/24/2017 Hospital Day 7 days Problem List: Active Hospital Problems Diagnosis ??? Partial small bowel obstruction Resolved Hospital Problems Diagnosis Date Resolved No resolved problems to display. FEBApril 2013 Multiple hernias (incisional) Active Non-Hospital Problems Diagnosis ??? Neurogenic bladder ??? Colostomy in place ??? Hypertension ??? Snoring ??? Diabetes mellitus ??? Obesity (BMI 35.0-39.9 without comorbidity) ??? Rectal cancer Events over the last 24 hrs: Two weeks of emesis Subjective: NGT output about a liter and tube had been removed Advanced to regular diet No cramping abdominal pain No nausea or emesis Objective: Physical Exam: Last Set of Vitals and range of vitals over past 24 hours: Last value Range last 24 hrs Temperature Temp: 36.9 ??C (98.4 ??F) Temp: [36.8 ??C (98.2 ??F)-37.3 ??C (99.1 ??F)] Heart Rate Heart Rate: 84 Heart Rate: -- Blood Pressure BP: 123/70 BP: (123-143)/(64-70) Respiratory Rate Resp: 17 Resp: [17-18] SpO2 SpO2: 98 % SpO2: [96 %-99 %] Physical Exam Comfortable, sitting in a chair No respiratory compromise Regular pulse Abdomen soft, nontender Does have diffuse hernia but no suspicion of incarceration Laboratory (Last 24 Hours): Recent Results (from the past 24 hour(s)) POCT Glucose Result Value Ref Range POC Glucose 210 (H) 65 - 199 mg/dL POCT Glucose Result Value Ref Range POC Glucose 214 (H) 65 - 199 mg/dL POCT Glucose Result Value Ref Range POC Glucose 208 (H) 65 - 199 mg/dL POCT Glucose Result Value Ref Range POC Glucose 206 (H) 65 - 199 mg/dL POCT Glucose Result Value Ref Range POC Glucose 240 (H) 65 - 199 mg/dL Electrolytes panel Result Value Ref Range Sodium 137 135 - 145 mmol/L Potassium 4.8 3.5 - 5.0 mmol/L Chloride 99 98 - 107 mmol/L CO2 23 22 - 31 mmol/L Anion Gap 15 5 - 15 mmol/L BUN Result Value Ref Range BUN 23 (H) 10 - 20 mg/dL Creatinine Result Value Ref Range Creatinine 0.61 (L) 0.80 - 1.50 mg/dL Estimated GFR >60 >=60 Hemogram Result Value Ref Range WBC 8.0 4.0 - 9.5 x10(3)/mcL RBC 4.22 (L) 4.58 - 5.54 x10(6)/mcL Hemoglobin 12.8 (L) 13.7 - 16.5 gm/dL Hematocrit 37.8 (L) 40.5 - 48.5 % MCV 89.6 82.9 - 93.1 fL MCH 30.3 27.5 - 32.1 pg MCHC 33.9 32.0 - 35.7 gm/dL Platelets 326 145 - 357 x10(3)/mcL RDWSD 39.4 36.0 - 45.0 fL RDWCV 12.2 11.4 - 13.8 % MPV 10.1 7.6 - 12.9 fL nRBC % Auto 0.0 % nRBC Abs Auto 0.000 0.000 - 0.000 x10(3)/mcL Differential, Automated Result Value Ref Range Neutrophils % 71.9 % Neutr Abs (ANC) 5.79 1.70 - 6.10 x10(3)/mcL Lymphocytes % 17.3 % Lymphocytes Abs 1.4 0.9 - 3.2 x10(3)/mcL Monocytes % 8.0 % Monocyte Abs 0.6 0.3 - 0.9 x10(3)/mcL Eosinophils % 1.7 % Eosinophils Abs 0.1 0.0 - 0.4 x10(3)/mcL Basophils % 0.7 % Basophils Abs 0.1 0.0 - 0.1 x10(3)/mcL Immature Gran % 0.40 % Naomi Gran Abs 0.03 0.00 - 0.04 x10(3)/mcL Assessment/Plan: Partial small bowel obstruction - has had return of intestinal function NGT out Advancing diet Surgery if recurrent obstruction Tentative discharge tomorrow Plan discussed with the patient who agrees with non-operative management EDIN OBRIEN MD 08/31/2017 * Amy Prescott MD - 08/30/2017 2:50 PM EDT [facility] Inpatient Note HPI: Reg Salazar is a 62 y.o. male, with a history of DM, HTN, Chemorads, APR, FOLFOX x8 in 04/2013 for ypT3N1 adenocarcinoma of the rectum, with parastomal hernia and incisional hernia who presents with a two week history of malaise and intermittent nausea, vomiting and inability to tolerate a diet.He was admitted to an OSH two weeks ago when his symptoms started and he was there for a few days before being discharged. 24 hour events: - tolerated clears - no N/V - ambulating PHYSICAL EXAM: Temp: [36.5 ??C (97.7 ??F)-37.4 ??C (99.3 ??F)] Heart Rate: -- Resp: [16-20] BP: (126-132)/(66-75) SpO2: [95 %-98 %] Heart Rate from SPO2: [67 bpm-78 bpm] I/O last 3 completed shifts: In: 5117 [P.O.:600; I.V.:1500] Out: 4245 [Urine:3575; Other:550; Stool:120] NGT- 950cc General: NAD, AO x 3, flushed HEENT: PERRLA, EOMI CV: RRR, no m/r/g Pulm: CTAB, no w/r/r Abd/Pelvis: obese, soft, colostomy stoma pink with succus and flatus in appliance, large parastomalhernia which is soft and non reducible, also with incisional hernia near the umbilicus which is also soft and non reducible, neither hernia has any skin changes overtop of it, nontender, nondistended Extremities: warm, no edema Neuro: CN II-XII intact LABS: Recent Labs 08/30/17 0604 WBC 7.4 HGB 12.8* HCT 36.8* PLATELET 321 No results for input(s): INR in the last 72 hours. Recent Labs 08/30/17 0604 NA 136 K 4.7 CL 100 CO2 23 BUN 20 CREATININE 0.56* IMAGING: CT abd/pelvis 08/24/2017: 1. Complex ventral hernias are unchanged in [...] density and fluid likely reflecting posttreatment changes. ASSESSMENT/Plan This is a 62 y.o., male, with a history of DM, HTN, Chemorads, APR, FOLFOX x 8 in 04/2013 for [id number] of the rectum, with parastomal hernia and incisional hernia who presents with a two week history of malaise and intermittent nausea, vomiting and inability to tolerate a diet concerning for partial small bowel obstruction now resolving. - Clears today, if tolerates, possible low residue for dinner - If emesis, replace NGT - Pain control with dilaudid 0.2mg Q2hr prn - Nutrition: PICC TPN, likely d/c tomorrow if tolerates diet - Lovenox and SCDs - home tomorrow if tolerates low residue AMY PRESCOTT MD 08/30/2017 2:50 PM ACS [id number] Associated attestation - Milton Singh MD - 08/30/2017 4:33 PM EDT Acute Care Surgery Attending Addendum: I have seen this patient and agree with the above note with the following additions and/or modifications. Tolerated some clears yesterday and encouraged more this morning. If he continues to tolerate without nausea or abdominal pain will advance diet later today. Continue TPN until diet tolerated. IPI Certification I certify that I am a [facility] credentialed attending provider with admitting privileges and that the patient meets or has met medical necessity to require an inpatient IPI level of care meeting a minimumof two midnights or is on the [facility] inpatient only procedure list (status C) due to: partial small bowel obstruction * Amy Prescott MD - 08/29/2017 11:42 AM EDT [facility] Inpatient Note HPI: Reg Salazar is a 62 y.o. male, with a history of DM, HTN, Chemorads, APR, FOLFOX x8 in 04/2013 for ypT3N1 adenocarcinoma of the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 three days ago but he hasn't been able to drink or eat very much since that time due to nausea and anorexia. He also noted that although he is still having colostomy output and flatus through appliance the consistency has changed and now it is more pale and liquid innature. He stated that he has not had any fevers but has been waking up clammy and having chills. He denies SOB, CP, dysuria, urinary frequency, coughing, or other symptoms but states he is having some lower abdominal tenderness where his hernias are. PHYSICAL EXAM: Temp: [36.7 ??C (98.1 ??F)-37.4 ??C (99.3 ??F)] Heart Rate: [86] Resp: [16-18] BP: (104-128)/(54-75) SpO2: [93 %-98 %] Heart Rate from SPO2: [74 bpm-88 bpm] I/O last 3 completed shifts: In: 1475 [I.V.:1415; Other:60] Out: 2825 [Urine:1150; Other:1600; Stool:75] NGT- 1600 in 12 h overnight, dark green Ostomy- 75 cc overnight, yellow brown , moderately well formed, (+) gas, changed bag twice General: NAD, AO x 3, flushed HEENT: PERRLA, EOMI CV: RRR, no m/r/g Pulm: CTAB, no w/r/r Abd/Pelvis: obese, soft, colostomy stoma pink with stool and flatus in appliance, large parastomal hernia which is soft and non reducible, also with incisional hernia near the umbilicus which is alsosoft and non reducible, neither hernia has any skin changes overtop of it, nontender, less distended around ostomy site today Extremities: warm, no edema Neuro: CN II-XII intact LABS: Recent Labs 08/25/17 0502 WBC 11.7* HGB 13.1* HCT 36.1* PLATELET 353 No results for input(s): INR in the last 72 hours. Recent Labs 08/25/17 0502 NA 133* K 3.2* CL 90* CO2 29 BUN 13 CREATININE 0.64* IMAGING: CT abd/pelvis 08/24/2017: 1. Complex ventral hernias are unchanged in [...] density and fluid likely reflecting posttreatment changes. ASSESSMENT/Plan This is a 62 y.o., male, with a history of DM, HTN, Chemorads, APR, FOLFOX x 8 in 04/2013 for [id number] of the rectum, with parastomal hernia and incisional hernia who presents with a two week history of malaise and intermittent nausea, vomiting and inability to tolerate a diet concerning for partial small bowel obstruction likely related to one of his hernias and adhesions. Overnight his NG tube put out 1600 of dark green likely bilious fluid, and along with his history, is concerning for obstruction. His CT yesterday showed contrast passing the hernia sites. He will continue to be monitored for return of bowel function through ostomy. Consideration for operative intervention at this time is ongoing and will depend on his ongoing clinical status. Cortez Roca MD General Surgery Department Pager [phone] Associated attestation - Milton Singh MD - 08/25/2017 9:12 PM EDT Acute Care Surgery Attending Addendum: I have seen this patient and agree with the above note with the following additions and/or modifications. Small amount of stool and flatus from colostomy with AXR showing contrast in the colon. That said NGT output elevated. No acute indication for surgery at this time but if no progress over next 24 hours may need to re-assess. IPI Certification I certify that I am a [facility] credentialed attending provider with admitting privileges and that the patient meets or has met medical necessity to require an inpatient IPI level of care meeting a minimumof two midnights or is on the [facility] inpatient only procedure list (status C) due to: Small bowel obstruction * Lilian Luna RN - 08/24/2017 4:36 PM EDT Pt arrived to 4 west alert and oriented, VSS on RA. NGT removed by Abelino FUNES at bedside d/t incorrect placement, will place new NGT. Family at bedside. Oriented to room and use of call mosqueda system. New ostomy appliance applied. IV dilaudid x1. Will continue to monitor and assess. documented in this encounter Procedure Notes * Oliva Mccollum RN - 08/27/2017 11:21 AM EDTAssociated Order(s): PLACE PICC LINE: CONTACT VASCULAR ACCESS PICC/Midline Insertion Procedure Note Indications: TPN This insertion was not to replace a [...] correctpatient positioning and presence of the site reg was confirmed as applicable. The medical history and chart were reviewed to rule out potential contraindications to the planned procedure. Hand Hygiene: The service tester did perform hand hygiene prior to line insertion. Catheter type: PICC Lot number: [id number] Procedure Technique: Skin was prepped with chlorhexidine. [...] received for catheter placement. A 5 Fr. double lumen Bard Power catheter was placed into theright basilic vein over a 0.018 inch guidewire using modified seldinger technique and fluoroscopy. Arm circumference was 36 cm at 2 cm above the insertion site. Final catheter length (with trimming): 37 cm Internal: 37 cm External: 0 cm Tip in SVC per Dr. Quiñonez. The line was not placed over a guidewire. Post Procedure: Diagnosis: Partial SBO Blood return noted on aspiration of line after placement confirmed. 5 mls of normal saline infused free flowing to gravity via PICC after insertion. Sterile dressing applied: CHG Impregnated Tegaderm. Findings: The patient did tolerate the procedure well. No Complications. Procedure Comments: OLIVA MCCOLLUM RN 08/27/2017 documented in this encounter ED Notes * Swetha Beverly RN - 08/24/2017 4:20 PM EDT Transfer via bed to [facility]. * Swetha Beverly RN - 08/24/2017 4:10 PM EDT Pt agreed to keep clamped NGT until Dr Best is able to assess the KUB. * Swetha Beverly RN - 08/24/2017 4:01 PM EDT KUB at bedside. NGT to remain in place until Dr Best is able to assess and decide dispo. * Swetha Beverly RN - 08/24/2017 3:54 PM EDT Report to Chela DEUTSCH. * Swetha Beverly RN - 08/24/2017 3:08 PM EDT Changed to hospital bed. * Swetha Beverly RN - 08/24/2017 2:30 PM EDT Ambulate to br w/ steady gait. * Swetha Beverly RN - 08/24/2017 1:47 PM EDT Surgery at bedside to assess pt. * Swetha Beverly RN - 08/24/2017 12:05 PM EDT Ambulate to CT4 w/ steady gait accompanied by fha underwriter. * Swetha Beverly RN - 08/24/2017 10:05 AM EDT Ambulate to br w/ steady gait. * Swetha Beverly RN - 08/24/2017 8:[address] Gutiérrez at bedside to assess pt. * Henny Salguero - 08/24/2017 7:58 AM EDT Chief Complaint Patient presents with ??? Abdominal Pain The history is provided by the patient, a relative and a significant other. 62 yo male with hx of rectal cancer in 2012 s/p colectomy with ostomy bag in place presents with 2 weeks of abdominal discomfort. States that he had initial ostomy output decrease 2 weeks ago with abdominal pain in lower quadrants, tried to treat it himself at home for 3 days. Didn't improve, went to [facility]. He was evaluate and admitted. Treatment there was conservative, with laxatives and liquid diet. Discharged 1 week ago with no change to outpatient therapy. Presents today with no improvement in symptoms, and with new nausea/vomiting. Vomitus is non-bloody, yellow in color,non-fecal. He has had decreased appetite in the past week with increased gas. States that he has passed gas, but ostomy output is liquid, which is not his norm. Also states thatoutput has mucus. Denies travel to outside country, change in diet, new medications, or sick contacts at home. Patient states he has been feeling chills at home, but did not take temperature. Allergies Allergen Reactions ??? Penicillins Rash Review of Systems Constitutional: Positive for appetite change, chills and fatigue. Negative for activity change, diaphoresis, fever and unexpected weight change. HENT: Negative. Eyes: Negative. Respiratory: Negative. Cardiovascular: Negative. Gastrointestinal: Positive for abdominal distention, abdominal pain, diarrhea, nausea and vomiting.Negative for anal bleeding, blood in stool, constipation and rectal pain. Genitourinary: Negative. Musculoskeletal: Negative. Skin: Negative. Neurological: Negative. Physical Exam Constitutional: He is oriented to person, place, and time. He appears well- developed and well-nourished. HENT: Head: Normocephalic and atraumatic. Eyes: Conjunctivae and EOM are normal. Pupils are equal, round, and reactive to light. Neck: Normal range of motion. Neck supple. Cardiovascular: Normal rate and normal heart sounds. Exam reveals no gallop and no friction rub. No murmur heard. Pulmonary/Chest: Effort normal and breath sounds normal. Abdominal: Soft. He exhibits distension. Bowel sounds are decreased. There is tenderness in the right lower quadrant and left lower quadrant. There is no rigidity and no guarding. Musculoskeletal: Normal range of motion. Neurological: He is alert and oriented to person, place, and time. Skin: Skin is warm and dry. Procedures MDM Number of Diagnoses or Management Options Diagnosis management comments: 62 yo male with history of colectomy with ostomy bag in place presents with 2 weeks of abdominal and developing nausea/vomiting, no improvement in symptoms and decreased appetite. Also endorses subjective chills at home. Differentials include SBO, hernia, ostomy obstruction. Can also be gastroenteritis with fevers and chills and liquid stools. #Abdominal pain - Basic labs, LFTs and lipase - Abd/pelvis CT with oral contrast - Consult surgery - Wound care consult for ostomy eval Henny Salguero MD Resident 08/24/17 0828 Associated attestation - Swetha Price MD - 09/04/2017 8:29 PM EDT ED ATTENDING ATTESTATION NOTE The patient was [...] above unless noted otherwise below. ED Course documented in this encounter Miscellaneous Notes * Plan of Care - Loi Orta LPN - 09/01/2017 6:56 AM EDT Problem: Health Knowledge, Opportunity to Enhance (Adult,NICU,,Obstetrics,Pediatric) Goal: Knowledgeable about Health Subject/Topic Patient will demonstrate the desired outcomes by discharge/transition of care. Outcome: Outcome (s) achieved Date Met: 09/01/17 09/01/17 0655 Health Knowledge, Opportunity to Enhance (Adult,NICU,[place],Obstetrics,Pediatric) Knowledgeable about Health Subject/Topic achieves outcome Patient Guidelines for Self-Care after PICC (Peripherally Inserted Central Catheter) Removal Your PICC was removed on 09/01/17 at 0645am An antibiotic ointment was applied to the insertion site (where the PICC went into your skin). ___x___Betadine ointment was used (a dark reddish brown [...] not stop, call or seek medical attention. * Plan of Care - Lora Tejada RN - 09/01/2017 5:02 AM EDT Problem: Patient Care Overview Goal: Plan of Care Review Outcome: Ongoing (Interventions Implemented as Appropriate) 08/30/17 1428 08/31/171999 Coping/Psychosocial Plan Of Care Reviewed With -- patient Plan of Care Review Progress progress toward functional goals as expected -- OUTCOME EVALUATION NOTE: OUTCOME SUMMARY: Reg had a quiet night. Denies pain. Blood sugars elevated overnight. PICC to come out today. Significant other at bedside overnight. PICC removed this morning for discharge today. PLAN MOVING FORWARD: Home today INDIVIDUALIZED FALL PREVENTION INTERVENTIONS: Patient-specific fall risk factors per assessment: [current deficits]: none Assistance [level of assistance required for transfers and ambulation]: Independent Supervision [direct monitoring required during toileting and ADLs]: Independent Surveillance [continuous indirect monitoring]: Purposeful rounding, call mosqueda within reach, family at bedside Patient-specific fall prevention interventions for sensory deficits provided, if applicable: [X] Yes lighting adjusted, nonslip socks CPG GOAL OUTCOME EVALUATION: Goal: Individualization & Mutuality Outcome: Ongoing (Interventions Implemented as Appropriate) 08/28/17 0444 09/01/17 0500 Mutuality/Individual Preferences What Anxieties, Fears or Concerns Do You Have About Your Health or Care? none -- What Questions Do You Have About Your Health or Care? -- hopefully home today What Information Would Help Us Give You More Personalized Care? Please let me have personal space to heal -- Goal: Fall Prevention-Safe Patient Handling Outcome: Ongoing (Interventions Implemented as Appropriate) 08/27/17 0249 08/30/17 1428 08/31/17 0730 Musculoskeletal Interventions Muscle Strengthening activity/mobility promoted -- -- Daily Care Interventions Self-Care Promotion -- -- independence encouraged;meal setup provided Restraint Interventions Safety Promotion/Fall Prevention -- -- -- Activity and Safety Assistive Device -- None -- Toro Fall Risk History of Falling -- -- -- Secondary Diagnosis -- -- -- Ambulatory Aids -- -- -- Intravenous Therapy/Heparin/Saline Lock -- -- -- Gait/Transferring -- -- -- Mental Status -- -- -- Score -- -- -- OTHER Toro Fall Risk -- -- -- Positioning Body Position -- -- -- 08/31/171999 Musculoskeletal Interventions Muscle Strengthening -- Daily Care Interventions Self-Care Promotion -- Restraint Interventions Safety Promotion/Fall Prevention fall prevention program maintained;nonskid shoes/slippers when outof bed;safety round/check completed Activity and Safety Assistive Device -- Toro Fall Risk History of Falling 0 Secondary Diagnosis 15 Ambulatory Aids 0 Intravenous Therapy/Heparin/Saline Lock 20 Gait/Transferring 0 Mental Status 0 Score 35 OTHER Toro Fall Risk Med Positioning Body Position independent Goal: Infection Control Outcome: Ongoing (Interventions Implemented as Appropriate) 08/31/171999 Coping Strategies Supportive Measures active listening utilized;goal setting facilitated;self-care encouraged;self-reflection promoted Safety Interventions Isolation Precautions standard precautions maintained Infection Prevention rest/sleep promoted;single patient room provided Goal: Discharge Needs Assessment Outcome: Ongoing (Interventions Implemented as Appropriate) 08/28/17 0444 08/30/17 1428 Discharge Needs Assessment Concerns To Be Addressed no discharge needs identified -- Readmission Within The Last 30 Days no previous admission in last 30 days -- Equipment Needed After Discharge none -- Discharge Disposition -- still a patient Current Health Anticipated Changes Related to Illness none -- Activity/Self Care Review of Systems Equipment Currently Used at Home none -- Living Environment Transportation Available family or friend will provide -- * Plan of Care - Ty Valenzuela RN - 08/31/2017 7:03 PM EDT Problem: Patient Care Overview Goal: Plan of Care Review Outcome: Ongoing (Interventions Implemented as Appropriate) 08/30/178 08/31/17 0730 Coping/Psychosocial Plan Of Care Reviewed With -- patient Plan of Care Review Progress progress toward functional goals as expected -- OUTCOME EVALUATION NOTE: OUTCOME SUMMARY: Planning for d/c tomorrow. TPN d/c. PICC in place for AM labs. Tolerating diet. PLAN MOVING FORWARD: Monitor for N/V, encourage ambulation. INDIVIDUALIZED FALL PREVENTION INTERVENTIONS: Patient-specific fall risk factors per assessment: [current deficits]: IVF Assistance [level of assistance required for transfers and ambulation]: Independent Supervision [direct monitoring required during toileting and ADLs]: Independent Surveillance [continuous indirect monitoring]: Hourly rounding. Patient-specific fall prevention interventions for sensory deficits provided, if applicable: [X] Yes Lighting adjusted for task. CPG GOAL OUTCOME EVALUATION: Goal: Individualization & Mutuality Outcome: Ongoing (Interventions Implemented as Appropriate) 08/28/174 08/28/17 1516 Individualization Patient Specific Preferences Please leave the door closed -- Patient Specific Goals Rest, independence -- Patient Specific Interventions hourly rounding, encouraging independence -- Mutuality/Individual Preferences What Anxieties, Fears or Concerns Do You Have About Your Health or Care? none -- What Questions Do You Have About Your Health or Care? -- What's the plan? How much longer will I be here? What Information Would Help Us Give You More Personalized Care? Please let me have personal space to heal -- Goal: Fall Prevention-Safe Patient Handling Outcome: Ongoing (Interventions Implemented as Appropriate) 08/27/17 0249 08/30/17 1428 08/31/1730 Musculoskeletal Interventions Muscle Strengthening activity/mobility promoted -- -- Daily Care Interventions Self-Care Promotion -- -- independence encouraged;meal setup provided Restraint Interventions Safety Promotion/Fall Prevention -- -- fall prevention program maintained;muscle strengthening facilitated;nonskid shoes/slippers when out of bed;safety round/check completed Activity and Safety Assistive Device -- None -- Toro Fall Risk History of Falling -- -- 0 Secondary Diagnosis -- -- 15 Ambulatory Aids -- -- 0 Intravenous Therapy/Heparin/Saline Lock -- -- 20 Gait/Transferring -- -- 0 Mental Status -- -- 0 Score -- -- 35 OTHER Toro Fall Risk -- -- Med Positioning Body Position -- -- up in chair Goal: Infection Control Outcome: Ongoing (Interventions Implemented as Appropriate) 08/31/17729 Coping Strategies Supportive Measures active listening utilized Safety Interventions Isolation Precautions standard precautions maintained Infection Prevention rest/sleep promoted;single patient room provided Goal: Discharge Needs Assessment Outcome: Ongoing (Interventions Implemented as Appropriate) 08/28/1744308/30/171427 Discharge Needs Assessment Concerns To Be Addressed no discharge needs identified -- Readmission Within The Last 30 Days no previous admission in last 30 days -- Equipment Needed After Discharge none -- Discharge Disposition -- still a patient Current Health Anticipated Changes Related to Illness none -- Activity/Self Care Review of Systems Equipment Currently Used at Home none -- Living Environment Transportation Available family or friend will provide -- Goal: Interdisciplinary Rounds/Family Conf Outcome: Ongoing (Interventions Implemented as Appropriate) 08/30/171427 Interdisciplinary Rounds/Family Conf Participants nursing;patient;family;physician Problem: Health Knowledge, Opportunity to Enhance (Adult,NICU,[place],Obstetrics,Pediatric) Goal: Identify Related Risk Factors and Signs and Symptoms Related risk factors and signs and symptoms are identified upon initiation of Human Response Clinical Practice Guideline (CPG) Outcome: Ongoing (Interventions Implemented as Appropriate) 08/28/17443 Health Knowledge, Opportunity to Enhance Health Knowledge, Opportunity for Enhanced: Related Risk Factors prognosis/treatment plan Goal: Knowledgeable about Health Subject/Topic Patient will demonstrate the desired outcomes by discharge/transition of care. Outcome: Ongoing (Interventions Implemented as Appropriate) 08/31/17617 Health Knowledge, Opportunity to Enhance (Adult,NICU,,Obstetrics,Pediatric) Knowledgeable about Health Subject/Topic making progress toward outcome * Consult Note - Jacquelyn Vitale RN - 08/31/2017 5:12 PM EDT Inpatient Ostomy Nurse Note: Patient seen this afternoon. States he does not know why ostomy nurse was consulted. States he had a blow out yesterday and the floor nurse changed it. The appliance had not been changed since last Thursday. States he does change the appliance every Thursday and Thursday at home. Current [employer] #[id number] is intact. I gave him several more of the one piece appliances to try at home. * Plan of Care - Junie Arnold RN - 08/31/2017 6:24 AM EDT Problem: Patient Care Overview Goal: Plan of Care Review Outcome: Ongoing (Interventions Implemented as Appropriate) 08/30/17 1428 08/30/171999 Coping/Psychosocial Plan Of Care Reviewed With -- patient Plan of Care Review Progress progress toward functional goals as expected -- OUTCOME EVALUATION NOTE: OUTCOME SUMMARY: Reg had a quiet night. Ostomy put out 75 of liquid brown stool with lots of flatus. He slept through the night and was up at 0615 walking around the unit PLAN MOVING FORWARD: Discharge tomorrow if tolerates low residue diet today INDIVIDUALIZED FALL PREVENTION INTERVENTIONS: Patient-specific fall risk factors per assessment: [current deficits]: Multiple IV lines Assistance [level of assistance required for transfers and ambulation]: Independent Supervision [direct monitoring required during toileting and ADLs]: Eyes on Surveillance [continuous indirect monitoring]: Hourly rounding, call mosqueda answered promptly Patient-specific fall prevention interventions for sensory deficits provided, if applicable: [X] N/A CPG GOAL OUTCOME EVALUATION: Goal: Individualization & Mutuality Outcome: Ongoing (Interventions Implemented as Appropriate) 08/28/17 0444 08/28/17 1516 Individualization Patient Specific Preferences Please leave the door closed -- Patient Specific Goals Rest, independence -- Patient Specific Interventions hourly rounding, encouraging independence -- Mutuality/Individual Preferences What Anxieties, Fears or Concerns Do You Have About Your Health or Care? none -- What Questions Do You Have About Your Health or Care? -- What's the plan? How much longer will I be here? What Information Would Help Us Give You More Personalized Care? Please let me have personal space to heal -- Goal: Fall Prevention-Safe Patient Handling Outcome: Ongoing (Interventions Implemented as Appropriate) 08/27/17 0249 08/30/17 1428 08/30/171999 Musculoskeletal Interventions Muscle Strengthening activity/mobility promoted -- -- Daily Care Interventions Self-Care Promotion -- -- independence encouraged Restraint Interventions Safety Promotion/Fall Prevention -- -- fall prevention program maintained;nonskid shoes/slippers when out of bed;safety round/check completed Activity and Safety Assistive Device -- None -- Toro Fall Risk History of Falling -- -- 0 Secondary Diagnosis -- -- 15 Ambulatory Aids -- -- 0 Intravenous Therapy/Heparin/Saline Lock -- -- 20 Gait/Transferring -- -- 0 Mental Status -- -- 0 Score -- -- 35 OTHER Toro Fall Risk -- -- Med Positioning Body Position -- -- supine, head elevated Goal: Infection Control Outcome: Ongoing (Interventions Implemented as Appropriate) 08/30/171999 Coping Strategies Supportive Measures active listening utilized;self-care encouraged Safety Interventions Isolation Precautions standard precautions maintained Infection Prevention barrier precautions utilized;rest/sleep promoted;single patient room provided Goal: Discharge Needs Assessment Outcome: Ongoing (Interventions Implemented as Appropriate) 08/28/17 0444 08/30/171427 Discharge Needs Assessment Concerns To Be Addressed no discharge needs identified -- Readmission Within The Last 30 Days no previous admission in last 30 days -- Equipment Needed After Discharge none -- Discharge Disposition -- still a patient Current Health Anticipated Changes Related to Illness none -- Activity/Self Care Review of Systems Equipment Currently Used at Home none -- Living Environment Transportation Available family or friend will provide -- * Plan of Care - Shyla Streeter RN - 08/30/2017 2:35 PM EDT Problem: Patient Care Overview Goal: Plan of Care Review Outcome: Ongoing (Interventions Implemented as Appropriate) 08/30/17 1428 Coping/Psychosocial Plan Of Care Reviewed With patient;significant other Plan of Care Review Progress progress toward functional goals as expected OUTCOME EVALUATION NOTE: OUTCOME SUMMARY: Reg remained A+Ox4 throughout shift. Denies SOB, chest pain, N/V. Reporting 0/10 pain. Ambulating independently with IV pole Tolerating clears diet Ostomy appliance changed this AM, putting out flatus and scant stool. Voiding adequate amounts in urinal TPN continues, PICC line without issues Significant other to bedside, she is very anxious about his care, has been asked to have pt. Use call light when he needs something. PLAN MOVING FORWARD: Monitor for return of bowel function Continue clears INDIVIDUALIZED FALL PREVENTION INTERVENTIONS: Patient-specific fall risk factors per assessment: [current deficits]: IV pole Assistance [level of assistance required for transfers and ambulation]: independent Supervision [direct monitoring required during toileting and ADLs]: Eyes on Surveillance [continuous indirect monitoring]: Brenden, Q1 hour rounding, call mosqueda in reach Patient-specific fall prevention interventions for sensory deficits provided, if applicable: [X] Yes lighting adjusted, non skid socks CPG GOAL OUTCOME EVALUATION: Goal: Fall Prevention-Safe Patient Handling Outcome: Ongoing (Interventions Implemented as Appropriate) 08/27/17 0249 08/30/17 0800 08/30/17 1000 Musculoskeletal Interventions Muscle Strengthening activity/mobility promoted -- -- Daily Care Interventions Self-Care Promotion -- independence encouraged;BADL personal objects within reach;BADL personal routines maintained -- Restraint Interventions Safety Promotion/Fall Prevention -- activity supervised;fall prevention program maintained;muscle strengthening facilitated;nonskid shoes/slippers when out of bed;safety round/check completed -- Activity and Safety Assistive Device -- -- -- Toro Fall Risk History of Falling -- 0 -- Secondary Diagnosis -- 15 -- Ambulatory Aids -- 0 -- Intravenous Therapy/Heparin/Saline Lock -- 20 -- Gait/Transferring -- 0 -- Mental Status -- 0 -- Score -- 35 -- OTHER Toro Fall Risk -- Med -- Positioning Body Position -- -- independent 08/30/17 1428 Musculoskeletal Interventions Muscle Strengthening -- Daily Care Interventions Self-Care Promotion -- Restraint Interventions Safety Promotion/Fall Prevention -- Activity and Safety Assistive Device None Toro Fall Risk History of Falling -- Secondary Diagnosis -- Ambulatory Aids -- Intravenous Therapy/Heparin/Saline Lock -- Gait/Transferring -- Mental Status -- Score -- OTHER Toro Fall Risk -- Positioning Body Position -- Goal: Infection Control Outcome: Ongoing (Interventions Implemented as Appropriate) 08/30/17 0800 Coping Strategies Supportive Measures active listening utilized;goal setting facilitated;positive reinforcement provided;problem solving facilitated;relaxation techniques promoted;self-care encouraged;verbalization offeelings encouraged Safety Interventions Isolation Precautions standard precautions maintained Infection Prevention rest/sleep promoted;single patient room provided;environmental surveillance performed Goal: Discharge Needs Assessment Outcome: Ongoing (Interventions Implemented as Appropriate) 08/30/17 1428 Discharge Needs Assessment Discharge Disposition still a patient Goal: Interdisciplinary Rounds/Family Conf Outcome: Ongoing (Interventions Implemented as Appropriate) 08/30/17 142 Interdisciplinary Rounds/Family Conf Participants nursing;patient;family;physician * Plan of Care - Denita Quinn RN - 08/30/2017 4:00 AM EDT Problem: Patient Care Overview Goal: Plan of Care Review Outcome: Ongoing (Interventions Implemented as Appropriate) 08/29/17 1547 08/29/172044 Coping/Psychosocial Plan Of Care Reviewed With -- patient;spouse Plan of Care Review Progress progress toward functional goals as expected -- OUTCOME EVALUATION NOTE: OUTCOME SUMMARY: Reg had a quiet night, sleeping between care. Denies pain. Voiding adequately, UO starting to clear up. Independent with ostomy. See MAR for glucose administration. Will continue to monitor. PLAN MOVING FORWARD: Ambulation, INDIVIDUALIZED FALL PREVENTION INTERVENTIONS: Patient-specific fall risk factors per assessment: [current deficits]: Generalized weakness, Lines Assistance [level of assistance required for transfers and ambulation]: Independent Supervision [direct monitoring required during toileting and ADLs]: Eyes on Surveillance [continuous indirect monitoring]: Purposeful rounding, Call mosqueda within reach, Family presence Patient-specific fall prevention interventions for sensory deficits provided, if applicable: No CPG GOAL OUTCOME EVALUATION: Goal: Individualization & Mutuality Outcome: Ongoing (Interventions Implemented as Appropriate) 08/28/17 0444 08/28/17 1516 Individualization Patient Specific Preferences Please leave the door closed -- Patient Specific Goals Rest, independence -- Patient Specific Interventions hourly rounding, encouraging independence -- Mutuality/Individual Preferences What Anxieties, Fears or Concerns Do You Have About Your Health or Care? none -- What Questions Do You Have About Your Health or Care? -- What's the plan? How much longer will I be here? What Information Would Help Us Give You More Personalized Care? Please let me have personal space to heal -- Goal: Fall Prevention-Safe Patient Handling Outcome: Ongoing (Interventions Implemented as Appropriate) 08/27/17 0249 08/29/17 1000 08/29/172044 Musculoskeletal Interventions Muscle Strengthening activity/mobility promoted -- -- Daily Care Interventions Self-Care Promotion -- independence encouraged -- Restraint Interventions Safety Promotion/Fall Prevention -- -- fall prevention program maintained;muscle strengthening facilitated;nonskid shoes/slippers when out of bed;safety round/check completed Toro Fall Risk History of Falling -- -- 0 Secondary Diagnosis -- -- 15 Ambulatory Aids -- -- 0 Intravenous Therapy/Heparin/Saline Lock -- -- 20 Gait/Transferring -- -- 0 Mental Status -- -- 0 Score -- -- 35 OTHER Toro Fall Risk -- -- Med Positioning Body Position -- -- independent Goal: Infection Control Outcome: Ongoing (Interventions Implemented as Appropriate) 08/29/172044 Coping Strategies Supportive Measures active listening utilized;positive reinforcement provided;relaxation techniquespromoted;self-care encouraged;verbalization of feelings encouraged Safety Interventions Isolation Precautions standard precautions maintained Infection Prevention environmental surveillance performed;rest/sleep promoted;single patient room provided Goal: Discharge Needs Assessment Outcome: Ongoing (Interventions Implemented as Appropriate) 08/28/17 0444 Discharge Needs Assessment Concerns To Be Addressed no discharge needs identified Readmission Within The Last 30 Days no previous admission in last 30 days Equipment Needed After Discharge none Discharge Disposition still a patient Current Health Anticipated Changes Related to Illness none Activity/Self Care Review of Systems Equipment Currently Used at Home none Living Environment Transportation Available family or friend will provide Goal: Interdisciplinary Rounds/Family Conf Outcome: Ongoing (Interventions Implemented as Appropriate) 08/28/17 1516 Interdisciplinary Rounds/Family Conf Participants nursing;patient;family * Plan of Care - Ty Valenzuela RN - 08/29/2017 4:44 PM EDT Problem: Patient Care Overview Goal: Plan of Care Review Outcome: Ongoing (Interventions Implemented as Appropriate) 08/29/17 1000 08/29/17 1547 Coping/Psychosocial Plan Of Care Reviewed With patient -- Plan of Care Review Progress -- progress toward functional goals as expected OUTCOME EVALUATION NOTE: OUTCOME SUMMARY: NGT removed by team this AM, no N/V reported. Jello and water provided per clear diet order @ approx 1100. No N/V reported as of 1630. FS frequency changed to AC/HS today, with associated scheduled insulin. Pt has required correction insulin every 4 hours. Temp was 37.3 @1200, 37.1 @1630. WBC = 11.6, down from 12.9 on 08/28. colostomy has had low out put today, liquid. Urine remains jim. PLAN MOVING FORWARD: Monitor for N/V. Encourage ambulation. Monitor for infection. INDIVIDUALIZED FALL PREVENTION INTERVENTIONS: Patient-specific fall risk factors per assessment: [current deficits]: IVF/TPN infusion. Assistance [level of assistance required for transfers and ambulation]: Independent. Supervision [direct monitoring required during toileting and ADLs]: Independent. Surveillance [continuous indirect monitoring]: Purposeful roundingBrenden Patient-specific fall prevention interventions for sensory deficits provided, if applicable: [X] NoNot applicable. Lighting adjusted for task. CPG GOAL OUTCOME EVALUATION: Goal: Individualization & Mutuality Outcome: Ongoing (Interventions Implemented as Appropriate) 08/28/17 0444 Individualization Patient Specific Preferences Please leave the door closed Patient Specific Goals Rest, independence Patient Specific Interventions hourly rounding, encouraging independence Mutuality/Individual Preferences What Anxieties, Fears or Concerns Do You Have About Your Health or Care? none What Information Would Help Us Give You More Personalized Care? Please let me have personal space to heal Goal: Fall Prevention-Safe Patient Handling Outcome: Ongoing (Interventions Implemented as Appropriate) 08/27/17 0249 08/29/17 1000 08/29/17 1547 Musculoskeletal Interventions Muscle Strengthening activity/mobility promoted -- -- Daily Care Interventions Self-Care Promotion -- independence encouraged -- Restraint Interventions Safety Promotion/Fall Prevention -- -- fall prevention program maintained;nonskid shoes/slippers when out of bed;safety round/check completed Toro Fall Risk History of Falling -- 0 -- Secondary Diagnosis -- 15 -- Ambulatory Aids -- 0 -- Intravenous Therapy/Heparin/Saline Lock -- 20 -- Gait/Transferring -- 0 -- Mental Status -- 0 -- Score -- 35 -- OTHER Toro Fall Risk -- Med -- Positioning Body Position -- independent -- Goal: Infection Control Outcome: Ongoing (Interventions Implemented as Appropriate) 08/29/17 1000 08/29/17 1547 Coping Strategies Supportive Measures -- active listening utilized;positive reinforcement provided;relaxation techniques promoted;verbalization of feelings encouraged Safety Interventions Isolation Precautions standard precautions maintained -- Infection Prevention rest/sleep promoted;single patient room provided -- Goal: Discharge Needs Assessment Outcome: Ongoing (Interventions Implemented as Appropriate) 08/28/17443 Discharge Needs Assessment Concerns To Be Addressed no discharge needs identified Readmission Within The Last 30 Days no previous admission in last 30 days Equipment Needed After Discharge none Discharge Disposition still a patient Current Health Anticipated Changes Related to Illness none Activity/Self Care Review of Systems Equipment Currently Used at Home none Living Environment Transportation Available family or friend will provide Goal: Interdisciplinary Rounds/Family Conf Outcome: Ongoing (Interventions Implemented as Appropriate) 08/28/17 1516 Interdisciplinary Rounds/Family Conf Participants nursing;patient;family Problem: Health Knowledge, Opportunity to Enhance (Adult,NICU,[place],Obstetrics,Pediatric) Goal: Identify Related Risk Factors and Signs and Symptoms Related risk factors and signs and symptoms are identified upon initiation of Human Response Clinical Practice Guideline (CPG) Outcome: Ongoing (Interventions Implemented as Appropriate) 08/28/17443 Health Knowledge, Opportunity to Enhance Health Knowledge, Opportunity for Enhanced: Related Risk Factors prognosis/treatment plan Goal: Knowledgeable about Health Subject/Topic Patient will demonstrate the desired outcomes by discharge/transition of care. Outcome: Ongoing (Interventions Implemented as Appropriate) 08/28/17443 Health Knowledge, Opportunity to Enhance (Adult,NICU,[place],Obstetrics,Pediatric) Knowledgeable about Health Subject/Topic making progress toward outcome * Plan of Care - Tonia Monsalve RN - 08/29/2017 6:28 AM EDT Problem: Anxiety (Adult) Goal: Identify Related Risk Factors and Signs and Symptoms Related risk factors and signs and symptoms are identified upon initiation of Human Response Clinical Practice Guideline (CPG) Encouraged pt to express any needs or concerns. * Plan of Care - Ty Valenzuela RN - 08/28/2017 3:23 PM EDT Problem: Patient Care Overview Goal: Plan of Care Review Outcome: Ongoing (Interventions Implemented as Appropriate) 08/28/17 0444 08/28/17 1000 Coping/Psychosocial Plan Of Care Reviewed With -- patient;family Plan of Care Review Progress no change -- OUTCOME EVALUATION NOTE: OUTCOME SUMMARY: Pt has been maintaining NGT suction through out day. Clamp trial at 1330, to end at 1730. Output has been thin, light green. Pt has ambulated several times independently. Expresses irritation from NGT. Pt is ready to get outta here. Frustration at length of stay and hopes of being discharged expressed. Active listening utilized. PLAN MOVING FORWARD: Continue to monitor for sx of partial SBO. Monitor NGT output. INDIVIDUALIZED FALL PREVENTION INTERVENTIONS: Patient-specific fall risk factors per assessment: [current deficits]: IV infusion Assistance [level of assistance required for transfers and ambulation]: Independent Supervision [direct monitoring required during toileting and ADLs]: Eyes on Surveillance [continuous indirect monitoring]: Hourly rounding, Masimo Patient-specific fall prevention interventions for sensory deficits provided, if applicable: [X] Yes Lighting adjusted for tasks. CPG GOAL OUTCOME EVALUATION: Goal: Individualization & Mutuality Outcome: Ongoing (Interventions Implemented as Appropriate) 08/28/17 0444 08/28/17 1516 Individualization Patient Specific Preferences Please leave the door closed -- Patient Specific Goals Rest, independence -- Patient Specific Interventions hourly rounding, encouraging independence -- Mutuality/Individual Preferences What Anxieties, Fears or Concerns Do You Have About Your Health or Care? none -- What Questions Do You Have About Your Health or Care? -- What's the plan? How much longer will I be here? What Information Would Help Us Give You More Personalized Care? Please let me have personal space to heal -- Goal: Fall Prevention-Safe Patient Handling Outcome: Ongoing (Interventions Implemented as Appropriate) 08/27/17 0249 08/28/17 1000 Musculoskeletal Interventions Muscle Strengthening activity/mobility promoted -- Daily Care Interventions Self-Care Promotion -- independence encouraged Toro Fall Risk History of Falling -- 0 Secondary Diagnosis -- 15 Ambulatory Aids -- 0 Intravenous Therapy/Heparin/Saline Lock -- 20 Gait/Transferring -- 0 Mental Status -- 0 Score -- 35 OTHER Toro Fall Risk -- Med Restraint Interventions Safety Promotion/Fall Prevention -- activity supervised;fall prevention program maintained;safety round/check completed Positioning Body Position -- independent Goal: Infection Control Outcome: Ongoing (Interventions Implemented as Appropriate) 08/28/17 1000 08/28/17 1516 Coping Strategies Supportive Measures -- active listening utilized;goal setting facilitated;positive reinforcement provided Safety Interventions Isolation Precautions standard precautions maintained -- Infection Prevention single patient room provided -- Goal: Discharge Needs Assessment Outcome: Ongoing (Interventions Implemented as Appropriate) 08/28/174 Discharge Needs Assessment Concerns To Be Addressed no discharge needs identified Readmission Within The Last 30 Days no previous admission in last 30 days Equipment Needed After Discharge none Discharge Disposition still a patient Current Health Anticipated Changes Related to Illness none Activity/Self Care Review of Systems Equipment Currently Used at Home none Living Environment Transportation Available family or friend will provide Goal: Interdisciplinary Rounds/Family Conf Outcome: Ongoing (Interventions Implemented as Appropriate) 08/28/17 1516 Interdisciplinary Rounds/Family Conf Participants nursing;patient;family Problem: Health Knowledge, Opportunity to Enhance (Adult,NICU,[place],Obstetrics,Pediatric) Goal: Identify Related Risk Factors and Signs and Symptoms Related risk factors and signs and symptoms are identified upon initiation of Human Response Clinical Practice Guideline (CPG) Outcome: Ongoing (Interventions Implemented as Appropriate) 08/28/174 Health Knowledge, Opportunity to Enhance Health Knowledge, Opportunity for Enhanced: Related Risk Factors prognosis/treatment plan Goal: Knowledgeable about Health Subject/Topic Patient will demonstrate the desired outcomes by discharge/transition of care. Outcome: Ongoing (Interventions Implemented as Appropriate) 08/28/17443 Health Knowledge, Opportunity to Enhance (Adult,NICU,[place],Obstetrics,Pediatric) Knowledgeable about Health Subject/Topic making progress toward outcome * Plan of Care - Elaine Hallman RN - 08/28/2017 5:01 AM EDT Problem: Patient Care Overview Goal: Plan of Care Review Outcome: Ongoing (Interventions Implemented as Appropriate) 08/28/17443 Coping/Psychosocial Plan Of Care Reviewed With patient Plan of Care Review Progress no change OUTCOME EVALUATION NOTE: OUTCOME SUMMARY: Reg slept throughout the night in between care. He was independent in the room and voided spontaneously in the urinal. Voiding adequate amount. VSS. Denying SOB and Nausea. NGT to LCS - dark brown in color. No adverse signs/ symptoms related to NGT. PLAN MOVING FORWARD: OR tomorrow. Continue to monitor I & O Promote ambulation and independence. INDIVIDUALIZED FALL PREVENTION INTERVENTIONS: Patient-specific fall risk factors per assessment: [current deficits]: Tethering devices, unfamiliar environment. Assistance [level of assistance required for transfers and ambulation]: Independent. Supervision [direct monitoring required during toileting and ADLs]: Eyes on Surveillance [continuous indirect monitoring]: Masimo, room near unit station, purposeful hourly rounding. Patient-specific fall prevention interventions for sensory deficits provided, if applicable: [X] N/A CPG GOAL OUTCOME EVALUATION: Goal: Individualization & Mutuality Outcome: Ongoing (Interventions Implemented as Appropriate) 08/28/17443 Individualization Patient Specific Preferences Please leave the door closed Patient Specific Goals Rest, independence Patient Specific Interventions hourly rounding, encouraging independence Mutuality/Individual Preferences What Anxieties, Fears or Concerns Do You Have About Your Health or Care? none What Questions Do You Have About Your Health or Care? What time is my surgery tomorrow? What Information Would Help Us Give You More Personalized Care? Please let me have personal space to heal Goal: Fall Prevention-Safe Patient Handling Outcome: Ongoing (Interventions Implemented as Appropriate) 08/27/17 0249 08/27/17 0715 08/27/171999 Musculoskeletal Interventions Muscle Strengthening activity/mobility promoted -- -- Daily Care Interventions Self-Care Promotion -- independence encouraged -- Toro Fall Risk History of Falling -- -- 0 Secondary Diagnosis -- -- 15 Ambulatory Aids -- -- 0 Intravenous Therapy/Heparin/Saline Lock -- -- 20 Gait/Transferring -- -- 0 Mental Status -- -- 0 Score -- -- 35 OTHER Toro Fall Risk -- -- Med Restraint Interventions Safety Promotion/Fall Prevention -- -- activity supervised;nonskid shoes/slippers when out of bed;safety round/check completed Positioning Body Position -- -- independent Goal: Infection Control Outcome: Ongoing (Interventions Implemented as Appropriate) 08/27/171999 Safety Interventions Isolation Precautions standard precautions maintained Infection Prevention single patient room provided;rest/sleep promoted;personal protective equipmentutilized;equipment surfaces disinfected Coping Strategies Supportive Measures active listening utilized;decision-making supported;positive reinforcement provided;relaxation techniques promoted;self-reflection promoted Goal: Discharge Needs Assessment Outcome: Ongoing (Interventions Implemented as Appropriate) 08/28/17443 Discharge Needs Assessment Concerns To Be Addressed no discharge needs identified Readmission Within The Last 30 Days no previous admission in last 30 days Equipment Needed After Discharge none Discharge Disposition still a patient Current Health Anticipated Changes Related to Illness none Activity/Self Care Review of Systems Equipment Currently Used at Home none Living Environment Transportation Available family or friend will provide Goal: Interdisciplinary Rounds/Family Conf Outcome: Ongoing (Interventions Implemented as Appropriate) 08/28/17443 Interdisciplinary Rounds/Family Conf Participants nursing;patient Problem: Health Knowledge, Opportunity to Enhance (Adult,NICU,[place],Obstetrics,Pediatric) Goal: Identify Related Risk Factors and Signs and Symptoms Related risk factors and signs and symptoms are identified upon initiation of Human Response Clinical Practice Guideline (CPG) Outcome: Ongoing (Interventions Implemented as Appropriate) 08/28/17443 Health Knowledge, Opportunity to Enhance Health Knowledge, Opportunity for Enhanced: Related Risk Factors prognosis/treatment plan Goal: Knowledgeable about Health Subject/Topic Patient will demonstrate the desired outcomes by discharge/transition of care. Outcome: Ongoing (Interventions Implemented as Appropriate) 08/28/17443 Health Knowledge, Opportunity to Enhance (Adult,NICU,[place],Obstetrics,Pediatric) Knowledgeable about Health Subject/Topic making progress toward outcome * Plan of Care - Ceasar Marsh RN - 08/27/2017 6:44 PM EDT Problem: Patient Care Overview Goal: Plan of Care Review OUTCOME EVALUATION NOTE: OUTCOME SUMMARY: NGT output was a lot less today, resting comfortably at this time. PLAN MOVING FORWARD: PICC placed for TPN, NPO after MN for OR tomorrow, no c/o pain. INDIVIDUALIZED FALL PREVENTION INTERVENTIONS: Patient-specific fall risk factors per assessment: [current deficits]: No Assistance [level of assistance required for transfers and ambulation]: Ad karma. Supervision [direct monitoring required during toileting and ADLs]: All activities. Surveillance [continuous indirect monitoring]: Purposeful hourly rounding. Patient-specific fall prevention interventions for sensory deficits provided, if applicable: [X] No CPG GOAL OUTCOME EVALUATION: Goal: Individualization & Mutuality Outcome: Ongoing (Interventions Implemented as Appropriate) 08/25/17 1800 Mutuality/Individual Preferences What Anxieties, Fears or Concerns Do You Have About Your Health or Care? none What Questions Do You Have About Your Health or Care? none What Information Would Help Us Give You More Personalized Care? none Keep team plan of care info current. Goal: Fall Prevention-Safe Patient Handling Outcome: Ongoing (Interventions Implemented as Appropriate) 08/27/17 [id number]/27/[id number] Musculoskeletal Interventions Muscle Strengthening activity/mobility promoted -- Daily Care Interventions Self-Care Promotion -- independence encouraged Toro Fall Risk History of Falling -- 0 Secondary Diagnosis -- 15 Ambulatory Aids -- 0 Intravenous Therapy/Heparin/Saline Lock -- 20 Gait/Transferring -- 0 Mental Status -- 0 Score -- 35 OTHER Toro Fall Risk -- Med Restraint Interventions Safety Promotion/Fall Prevention -- nonskid shoes/slippers when out of bed;safety round/check completed Positioning Body Position -- independent Ad karma. Goal: Infection Control Outcome: Ongoing (Interventions Implemented as Appropriate) 08/27/17 07 Safety Interventions Isolation Precautions standard precautions maintained Infection Prevention environmental surveillance performed;single patient room provided Coping Strategies Supportive Measures active listening utilized;positive reinforcement provided Good hand hygiene. Goal: Discharge Needs Assessment Outcome: Ongoing (Interventions Implemented as Appropriate) 08/25/17 1800 08/25/17 18408/27/17 024 Discharge Needs Assessment Concerns To Be Addressed -- no discharge needs identified -- Readmission Within The Last 30 Days -- -- no previous admission in last 30 days Discharge Disposition -- -- still a patient Living Environment Transportation Available family or friend will provide -- -- Family will be available at time of DC. Goal: Interdisciplinary Rounds/Family Conf Outcome: Ongoing (Interventions Implemented as Appropriate) 08/25/17 184 Interdisciplinary Rounds/Family Conf Participants bilingual patient support caseworker Purposeful hourly rounding. * Plan of Care - Oliva Mccollum RN - 08/27/2017 12:29 PM EDT Problem: Health Knowledge, Opportunity to Enhance (Adult,NICU,,Obstetrics,Pediatric) Goal: Knowledgeable about Health Subject/Topic Patient will demonstrate the desired outcomes by discharge/transition of care. Peripherally Inserted Central Catheter (PICC) Teaching Sheet Peripherally inserted central catheters ([id number]) (PICC) are used when you need IV [...] midline catheter? PICC lines are used for buttermilk drier operator treatments. PICC lines may be used for [...] can be set up via the nurse General Milling Superintendent to help you. What are possible complications [...] Vascular Access Device Selection, Insertion, and Management, [employer] 09/03. A Review of the Efficacy, Safety, Use, and Administration of [employer]flo, [employer] 2005 * Plan of Care - Shayla Jennings RN - 08/27/2017 3:04 AM EDT Problem: Patient Care Overview Goal: Plan of Care Review Outcome: Ongoing (Interventions Implemented as Appropriate) 08/27/17 024 Coping/Psychosocial Plan Of Care Reviewed With patient Plan of Care Review Progress no change OUTCOME EVALUATION NOTE: OUTCOME SUMMARY: Reg has had a good night. He is in good spirits. NGT still with large amounts dark brown output, taking in small amounts ice chips Q4H. Colostomy with flatus and stool. Voiding adequate UOP. No c/o pain. Sleeping between care. MIVF and bolus x1 infusing through PIV. PLAN MOVING FORWARD: Monitor NGT output and ostomy function. Consider PICC and TPN if maintained NPO. INDIVIDUALIZED FALL PREVENTION INTERVENTIONS: Patient-specific fall risk factors per assessment: [current deficits]: Recent surgery, lines/drains Assistance [level of assistance required for transfers and ambulation]: Independent/ SBA Supervision [direct monitoring required during toileting and ADLs]: Eyes on Surveillance [continuous indirect monitoring]: Purposeful rounding, masimo, call mosqueda in reach Patient-specific fall prevention interventions for sensory deficits provided, if applicable: [X] N/A CPG GOAL OUTCOME EVALUATION: Goal: Individualization & Mutuality Outcome: Ongoing (Interventions Implemented as Appropriate) 08/25/17 1800 Mutuality/Individual Preferences What Anxieties, Fears or Concerns Do You Have About Your Health or Care? none What Questions Do You Have About Your Health or Care? none What Information Would Help Us Give You More Personalized Care? none Goal: Fall Prevention-Safe Patient Handling Outcome: Ongoing (Interventions Implemented as Appropriate) 08/26/[id number]/27/17248 Musculoskeletal Interventions Muscle Strengthening -- activity/mobility promoted Daily Care Interventions Self-Care Promotion -- independence encouraged Toro Fall Risk History of Falling 0 -- Secondary Diagnosis 15 -- Ambulatory Aids 0 -- Intravenous Therapy/Heparin/Saline Lock 20 -- Gait/Transferring 0 -- Mental Status 0 -- Score 35 -- OTHER Toro Fall Risk Med -- Restraint Interventions Safety Promotion/Fall Prevention fall prevention program maintained;nonskid shoes/slippers when outof bed;safety round/check completed -- Positioning Body Position independent -- Goal: Infection Control Outcome: Ongoing (Interventions Implemented as Appropriate) 08/26/171944 Safety Interventions Isolation Precautions standard precautions maintained Infection Prevention environmental surveillance performed;rest/sleep promoted;single patient room provided Coping Strategies Supportive Measures active listening utilized;goal setting facilitated;positive reinforcement provided;verbalization of feelings encouraged Goal: Discharge Needs Assessment Outcome: Ongoing (Interventions Implemented as Appropriate) 08/25/17 1800 08/25/17 1840 08/27/17 0249 Discharge Needs Assessment Concerns To Be Addressed -- no discharge needs identified -- Readmission Within The Last 30 Days -- -- no previous admission in last 30 days Discharge Disposition -- -- still a patient Living Environment Transportation Available family or friend will provide -- -- * Plan of Care - Ceasar Marsh RN - 08/26/2017 2:41 PM EDT Problem: Patient Care Overview Goal: Plan of Care Review OUTCOME EVALUATION NOTE: OUTCOME SUMMARY: Resting comfortably at this time. PLAN MOVING FORWARD: No c/o pain, xray this am, possible DC NGT tomorrow. INDIVIDUALIZED FALL PREVENTION INTERVENTIONS: Patient-specific fall risk factors per assessment: [current deficits]: No Assistance [level of assistance required for transfers and ambulation]: Ad karma. Supervision [direct monitoring required during toileting and ADLs]: All activities. Surveillance [continuous indirect monitoring]: Purposeful hourly rounding. Patient-specific fall prevention interventions for sensory deficits provided, if applicable: [X] No CPG GOAL OUTCOME EVALUATION: Goal: Individualization & Mutuality Outcome: Ongoing (Interventions Implemented as Appropriate) 08/25/17 1800 Mutuality/Individual Preferences What Anxieties, Fears or Concerns Do You Have About Your Health or Care? none What Questions Do You Have About Your Health or Care? none What Information Would Help Us Give You More Personalized Care? none Keep team plan of care info current. Goal: Fall Prevention-Safe Patient Handling Outcome: Ongoing (Interventions Implemented as Appropriate) 08/26/17 0718 Toro Fall Risk History of Falling 0 Secondary Diagnosis 15 Ambulatory Aids 0 Intravenous Therapy/Heparin/Saline Lock 20 Gait/Transferring 0 Mental Status 0 Score 35 OTHER Toro Fall Risk Med Restraint Interventions Safety Promotion/Fall Prevention nonskid shoes/slippers when out of bed;safety round/check completed Positioning Body Position independent Ad karma. Goal: Infection Control Outcome: Ongoing (Interventions Implemented as Appropriate) 08/26/17 0718 Safety Interventions Isolation Precautions standard precautions maintained Infection Prevention environmental surveillance performed;single patient room provided Coping Strategies Supportive Measures active listening utilized;positive reinforcement provided Good hand hygiene. Goal: Discharge Needs Assessment Outcome: Ongoing (Interventions Implemented as Appropriate) 08/25/17 1800 08/25/17 1840 Discharge Needs Assessment Concerns To Be Addressed -- no discharge needs identified Living Environment Transportation Available family or friend will provide -- Family will be available at time of DC. Goal: Interdisciplinary Rounds/Family Conf Outcome: Ongoing (Interventions Implemented as Appropriate) 08/25/17 1840 Interdisciplinary Rounds/Family Conf Participants bilingual patient support caseworker Purposeful hourly rounding. * Plan of Care - Veronica Pollard RN - 08/25/2017 6:46 PM EDT Problem: Patient Care Overview Goal: Plan of Care Review OUTCOME EVALUATION NOTE: OUTCOME SUMMARY: VSS. Awake orientedx3. IV patent, K 3.2 today receiving K runs as ordered q2 hours tolerated well. Voiding well. Abd softly obeses. BS +. + flatus, med stool this afternoon via stoma. Up to gaston withSBA tolerated well. Phenol spray for sore thoat q2 hours with few chips ice relieved for his sore thorat. No more Dilaudid IV required. NGT copious amount drainage Out put. See I&O PLAN MOVING FORWARD: Monitor NGT, Accurate I&O. Phenol spray for sore thoat. Encourage ambulation with assist. CheckK level INDIVIDUALIZED FALL PREVENTION INTERVENTIONS: Patient-specific fall risk factors per assessment: [current deficits]: Weakness. Assistance [level of assistance required for transfers and ambulation]: require assist out of bed Supervision [direct monitoring required during toileting and ADLs]: Eyes on rounding, Masimo on Patient-specific fall prevention interventions for sensory deficits provided, if applicable: [X] No CPG GOAL OUTCOME EVALUATION: Goal: Individualization & Mutuality 08/25/17 1800 Mutuality/Individual Preferences What Anxieties, Fears or Concerns Do You Have About Your Health or Care? none Goal: Fall Prevention-Safe Patient Handling 08/25/17 0900 Restraint Interventions Safety Promotion/Fall Prevention activity supervised;nonskid shoes/slippers when out of bed Goal: Infection Control 08/25/17 0900 Safety Interventions Isolation Precautions standard precautions maintained Goal: Discharge Needs Assessment 08/25/171839 Discharge Needs Assessment Concerns To Be Addressed no discharge needs identified Goal: Interdisciplinary Rounds/Family Conf 08/25/171839 Interdisciplinary Rounds/Family Conf Participants bilingual patient support caseworker * Initial Assessments - Mary Otero RN - 08/25/2017 11:14 AM EDT Office of Care Management Initial Assessment Mary Otero RN reviewed record and discussed patient with Care Team. Source of Information: Chart review, MD report, & patient interview with girlfriend present. Introduced self/reviewed role; services accepted. Reason for Hospitalization: 62 y/o man who is being treated conservatively for small bowel obstruction. Past Medical History: Diagnosis Date ??? DM (diabetes mellitus) type 2 ??? ED (erectile dysfunction) ??? Gout ??? HTN (hypertension) ??? Hypercoagulable state Protein S deficiency ??? Hyperlipemia ??? Obesity ??? 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 Rectal cancer Hospitalizations Within the Past 30 Days: Yes. Patient admitted to [facility] on 08/21 & discharged 08/23. Anticipated Length Of Stay (If known): 3-5 days Current Decision-Making Capacity: Patient alert, oriented, & able to make own choices. Advance Care Planning: In chart Current Coping/Education/Information Needs: Patientn verbalized understanding of treatment to date. Current Functional Ability: Independent Functional Status Prior to Admission: Independent Home Environment: 2 steps into single level home. Social & Family Supports/Community Resources: Lives with girlfriend & has adult children close by to assist as needed. Behavioral Health History: Denies any Substance Use/Abuse: No Other Pertinent/Service Specific Information: Patient has surgery in 2012 for colon cancer. Health/Prescription Coverage: Primary Insurance: CIGNA Secondary Insurance: N/A Prescription Coverage: CIGNA Preferred Pharmacy: [facility] in [place], [place] Other: N/A Primary Care Provider: Randa Rosas APRN [phone] Patient/Caregiver Goals of Treatment: Restore normal bowel function for discharge home. Potential Needs for Transition of Care: Rehab/SNF: No Home Health: No DME: No Dialysis: No Community Resources: No Transportation: Car with family Other: No Anticipated Barriers to Discharge/Special Considerations: Patient has hernias in abdominal wall that MDs have opted not to repair for fear of creating more. Plan: CM will maintain contact with patient & providers to coordinate any services needed for discharge. Mary Otero RN Pager: [phone] * Plan of Care - Tabitha Schafer RN - 08/25/2017 4:53 AM EDT Problem: Patient Care Overview Goal: Plan of Care Review Outcome: Ongoing (Interventions Implemented as Appropriate) 08/25/17 0442 Coping/Psychosocial Plan Of Care Reviewed With patient OUTCOME EVALUATION NOTE: OUTCOME SUMMARY: 2357-C/O 08/09 pain on his throat from discomfort from NGT. Dilaudid PRN .2mg X 2 with relief. NGT with 1600 output dark drainage. PLAN MOVING FORWARD: Will continue with pain control and ambulation this am. INDIVIDUALIZED FALL PREVENTION INTERVENTIONS: Patient-specific fall risk factors per assessment: [current deficits]: Narcotics, pain with movement/ ambulation. Assistance [level of assistance required for transfers and ambulation]: , IV pole, Independent, Non-skid slippers Supervision [direct monitoring required during toileting and ADLs]: Eyes on . Surveillance [continuous indirect monitoring]: Purposeful rounding; call light in reach Patient-specific fall prevention interventions for sensory deficits provided, if applicable: Lighting adjusted for safety. CPG GOAL OUTCOME EVALUATION: * Consult Note - Nevaeh Martins RN - 08/24/2017 5:45 PM EDT Asked by patient and his to assist him with his colostomy appliance leakage. Patient has a very bloated abdomen so the 2 piece Convatec appliance he has been using does not fit well. His does most of his appliance changes at home, so I showed her the Coloplast 1 piece #[id number], then cleanedhis peristomal skin. He had some erythema superior to his stoma and now a very flush stoma. This one piece appliance with a ring of [employer] paste seemed to fit very well, so I left more of these appliances in a bag with the pattern and other supplies. I also used a border of 3M tape to increase the wear time. He was waiting to have an NG tube placed when I left him. * Consult Note - Heath Best MD - 08/24/2017 12:28 PM EDT DEPARTMENT OF ADMISSION NOTE ADMISSION REASON: Small bowel obstruction Secondary Problems: There are no hospital problems to display for this patient. Active Non-Hospital Problems Diagnosis ??? Neurogenic bladder ??? Colostomy in place ??? Hypertension ??? Snoring ??? Diabetes mellitus ??? Obesity (BMI 35.0-39.9 without comorbidity) ??? Rectal cancer HPI: Reg Salazar is a 62 y.o. male, with a history of DM, HTN, APR in 04/2013 for ypT3 N0 adenocarcinoma of the rectum, with parastomal hernia and incisional hernia who presents with a two week historyof malaise and intermittent nausea, vomiting and inability to tolerate a diet. He was admitted to an OSH two weeks ago when his symptoms started and he was there for a few days before being discharged. He states that since this time he has not improved and in fact feels more weak. The last time he vomited was three days ago but he hasn't been able to drink or eat very much since that time due to nausea and anorexia. He also noted that although he is still having colostomy output and flatus through appliance the consistency has changed and now it is more pale and liquid in nature. He stated that he has not had any fevers but has been waking up clammy and having chills. He denies SOB, CP, dysuria, urinary frequency, coughing, or other symptoms but states he is having some lower abdominal tenderness where his hernias are. PMH/PSH: Past Medical History: Diagnosis Date ??? DM [...] LEGS performed by Oscar Soto MD at [facility] OR ??? PRO COLONOSCOPY, DIAGNOSTIC N/A 03/23/2015 COLONOSCOPY, DIAGNOSTIC performed by Bobby Hills MD at [facility] ENDOSCOPY ??? PRO CYSTOSCOPY, INSERT URETERAL STENT 05/11/2013 CYSTO, STENT PLACEMENT INTRAOP, TEMPORARY performed by Mark Khan MD at [facility] OR ??? PRO EXCLUSION, SMALL BOWEL FROM PELVIS 05/11/2013 @EXCLUSION OF SMALL INTESTINE FROM PELVIS performed by Bobby Hills MD at [facility] OR ??? PRO LAP, SURG PROCTECTOMY W COLOSTOMY 05/11/2013 @LAPAROSCOPIC PROCTECTOMY, COMPLETE, APR W COLOSTOMY performed by Bobby Hills MD at [facility] OR ??? PRO MUSCLE-SKIN FLAP, LEG 05/11/2013 FLAP, MYOCUTANEOUS OR FASCIOCUTANEOUS, LOWER EXTREMITY performed by Oscar Soto MD at [facility] OR ??? PRO OMENTAL FLAP, INTRA-ABDOMINAL 05/11/2013 @OMENTAL FLAP, INTRA-ABDOMINAL performed by Mark Khan MD at [facility] OR ??? PRO REMOVE ABD LYMPH NODES RAD REGNL 05/11/2013 @LYMPHADENECTOMY,ABDOMINAL,REGIONAL,MULTIPLE NODES performed by Bobby Hills MD at [facility] OR ??? TONSILLECTOMY AND ADENOIDECTOMY ??? [...] 25 x 5/8 Syrg 0.1 mLs by [facility].(Non-Drug; Combo Route) route as needed (use no [...] ??? Diabetes Father no famly h/o cnancer SOCIAL HISTORY: Tobacco: quit 20 years ago EtOH: a couple drinks once a month Illicit Drugs: marijuana daily Social History Social History ??? Marital status: Spouse name: N/A ??? Number of children: N/A ??? 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 Smoking status: Former Smoker Quit date: 11/30/1996 ??? Smokeless tobacco: Not on file ??? Alcohol use Yes Comment: seldom ??? [...] otherwise negative except as above PHYSICAL EXAM: Temp: [36.6 ??C (97.9 ??F)] Heart Rate: [109] Resp: [18] BP: (97-117)/(52-73) SpO2: [93 %-99 %] Heart Rate from SPO2: [78 bpm-94 bpm] General: NAD, AO x 3, flushed HEENT: PERRLA, EOMI CV: RRR, no m/r/g Pulm: CTAB, no w/r/r Abd/Pelvis: obese, soft, colostomy stoma pink with stool and flatus in appliance, large parastomal hernia which is soft and non reducible, also with incisional hernia near the umbilicus which is alsosoft and non reducible, neither hernia has any skin changes overtop of it, minimally tender in the lower quadrants bilaterally Extremities: warm, no edema Neuro: CN II-XII intact LABS: Recent Results (from the past 24 hour(s)) Basic Metabolic Panel (non-fasting) Result Value Ref Range Glucose Lvl 198 65 - 199 mg/dL BUN 32 (H) 10 - 20 mg/dL Creatinine 0.91 0.80 - 1.50 mg/dL Sodium 127 (L) 135 - 145 mmol/L Potassium 3.7 3.5 - 5.0 mmol/L Chloride 83 (L) 98 - 107 mmol/L CO2 29 22 - 31 mmol/L Anion Gap 15 5 - 15 mmol/L Calcium 8.8 8.5 - 10.5 mg/dL Estimated GFR >60 >=60 Hepatic Function Panel Result Value Ref Range Total Protein 6.8 6.1 - 8.0 gm/dL Albumin 3.8 3.2 - 5.2 gm/dL AST Not Perf 0 - 39 unit/L ALT 31 0 - 55 unit/L Alk Phos 54 40 - 120 unit/L Total Bilirubin 0.7 0.2 - 1.3 mg/dL Bili, Direct 0.1 0.0 - 0.3 mg/dL Lipase Result Value Ref Range Lipase 96 (H) 0 - 60 unit/L Hemogram Result Value Ref Range WBC 15.4 (H) 4.0 - 9.5 x10(3)/mcL RBC 4.55 (L) 4.58 - 5.54 x10(6)/mcL Hemoglobin 14.0 13.7 - 16.5 gm/dL Hematocrit 38.1 (L) 40.5 - 48.5 % MCV 83.7 82.9 - 93.1 fL MCH 30.8 27.5 - 32.1 pg MCHC 36.7 (H) 32.0 - 35.7 gm/dL Platelets 415 (H) 145 - 357 x10(3)/mcL RDWSD 36.1 36.0 - 45.0 fL RDWCV 11.9 11.4 - 13.8 % MPV 10.1 7.6 - 12.9 fL nRBC % Auto 0.0 % nRBC Abs Auto 0.000 0.000 - 0.000 x10(3)/mcL Differential, Automated Result Value Ref Range Neutrophils % 80.1 % Neutr Abs (ANC) 12.30 (H) 1.70 - 6.10 x10(3)/mcL Lymphocytes % 10.1 % Lymphocytes Abs 1.6 0.9 - 3.2 x10(3)/mcL Monocytes % 8.9 % Monocyte Abs 1.4 (H) 0.3 - 0.9 x10(3)/mcL Eosinophils % 0.2 % Eosinophils Abs 0.0 0.0 - 0.4 x10(3)/mcL Basophils % 0.2 % Basophils Abs 0.0 0.0 - 0.1 x10(3)/mcL Immature Gran % 0.50 % Naomi Gran Abs 0.07 (H) 0.00 - 0.04 x10(3)/mcL IMAGING: CT abd/pelvis 08/24/2017: 1. Complex ventral hernias are unchanged in [...] density and fluid likely reflecting posttreatment changes. ASSESSMENT: This is a 62 y.o., male, with a history of DM, HTN, APR in 04/2013 for ypT3 N0 adenocarcinoma of the rectum, with parastomal hernia and incisional hernia who presents with a two week history of malaise and intermittent nausea, vomiting and inability to tolerate a diet concerning for partial small bowel obstruction likely related to one of his hernias and adhesions even though the hernias are not impressively different in size. PLAN: - Admit to ACS, floor status, full code - NPO, NGT decompression and IVF - Labs in am to monitor leukocytosis and hyponatremia - ISS for DM - prealbumin in am to assess nutrition status as patient has been unable to tolerate routine meals Heath Best MD General Surgery Department Pager [phone] Associated attestation - Theo Washington MD - 08/25/2017 5:59 PM EDT I saw and evaluated the patient with Dr. Best (resident). I have independently reviewed the relevant laboratory and radiographic studies. I agree with the details as written. My physical examination confirms the resident's findings. The assessment and plan were formulated in discussion with me at the time of the visit and I agree with them as documented. Mr. Salazar was seen in the ER by me in conjunction with Dr. Best as a surgical consult. He is a62 y.o. man with a history of an APR in 04/2013 for ypT3 N0 adenocarcinoma of the rectum. He subsequently developed a parastomal hernia and an incisional hernia. He has known about these for years. He presented to the ER today with a two week history of malaise and intermittent nausea, vomiting andinability to tolerate a diet. He was seen at an outside hospital with the same symptoms prior to his presentation here and came in today because he started to feel worse again. A CT scan performed today was concerning for partial small bowel obstruction. Both hernias are visible on the scan and fill with contrast. In comparison with a scan done in November of this year, the hernias appear largely unchanged. There is contrast throughout the small bowel, although several loops in the pelvis appearmore dilated than previously seen on imaging in November. On physical exam, his abdomen is soft and minimally tender in the LLQ. He has a palpable parastomal hernia that is soft but is not reducible. Likewise his ventral hernia is soft but non-reducible. His ostomy is pink and patent with gas and stool in the bag although he states that the contents have been more liquid than usual today. His lactate is normal. We will admit him to the acute care surgery service for his partial small bowel obstru ction, with NGT decompression, IVF resuscitation and bowel rest. We will trend his electrolytes as he has a hyponatremia of 127. No immediate indication for surgery at this time. Theo Washington MD 08/24/17 * ED Triage - Rehan Gaston RN - 08/24/2017 7:39 AM EDT p has an ostomy. He was admitted to [facility] with a bowel obstruction two weeks ago. He was in the hospital for two days and released. He has had some output through his ostomy but moreliquid and a different color than normal. He has difficulty eating and becomes bloated after eating. He has some vomiting. Pt is awake, alert and oriented x 3. Skin color is pink warm and dry. documented in this encounter Plan of Treatment Not on file documented as of this encounter Procedures Procedure Name Priority Date/Time Associated Diagnosis Comments LAB SCAN 09/16/2017 12:00 AM EDT LAB SCAN 09/15/2017 12:00 AM EDT POCT GLUCOSE Routine 09/01/2017 7:06 AM EDT POCT GLUCOSE Routine 09/01/2017 12:24 AM EDT POCT GLUCOSE Routine 08/31/2017 10:05 PM EDT POCT GLUCOSE Routine 08/31/2017 8:06 PM EDT POCT GLUCOSE Routine 08/31/2017 3:34 PM EDT POCT GLUCOSE Routine 08/31/2017 11:06 AM EDT HEMOGRAM Routine 08/31/2017 8:08 AM EDT DIFFERENTIAL, AUTOMATED Routine 08/31/2017 8:08 AM EDT CREATININE Routine 08/31/2017 8:08 AM EDT CBC (WITH DIFF) Routine 08/31/2017 8:08 AM EDT BUN Routine 08/31/2017 8:08 AM EDT ELECTROLYTES PANEL Routine 08/31/2017 8: 08 AM EDT POCT GLUCOSE Routine 08/31/2017 7:18 AM EDT POCT GLUCOSE Routine 08/30/2017 8:51 PM EDT POCT GLUCOSE Routine 08/30/2017 4:11 PM EDT POCT GLUCOSE Routine 08/30/2017 11:55 AM EDT POCT GLUCOSE Routine 08/30/2017 10:33 AM EDT POCT GLUCOSE Routine 08/30/2017 7:15 AM EDT HEMOGRAM Routine 08/30/2017 6:04 AM EDT DIFFERENTIAL, AUTOMATED Routine 08/30/2017 6:04 AM EDT CREATININE Routine 08/30/2017 6:04 AM EDT CBC (WITH DIFF) Routine 08/30/2017 6:04 AM EDT BUN Routine 08/30/2017 6:04 AM EDT ELECTROLYTES PANEL Routine 08/30/2017 6: 04 AM EDT POCT GLUCOSE Routine 08/29/2017 8:50 PM EDT POCT GLUCOSE Routine 08/29/2017 5:44 PM EDT POCT GLUCOSE Routine 08/29/2017 4:30 PM EDT POCT GLUCOSE Routine 08/29/2017 11:29 AM EDT POCT GLUCOSE Routine 08/29/2017 8:59 AM EDT POCT GLUCOSE Routine 08/29/2017 7:00 AM EDT HEMOGRAM Routine 08/29/2017 6:25 AM EDT DIFFERENTIAL, AUTOMATED Routine 08/29/2017 6:25 AM EDT CREATININE Routine 08/29/2017 6:25 AM EDT CBC (WITH DIFF) Routine 08/29/2017 6:25 AM EDT BUN Routine 08/29/2017 6:25 AM EDT ELECTROLYTES PANEL Routine 08/29/2017 6: 25 AM EDT POCT GLUCOSE Routine 08/29/2017 3:42 AM EDT POCT GLUCOSE Routine 08/28/2017 11:24 PM EDT POCT GLUCOSE Routine 08/28/2017 7:20 PM EDT POCT GLUCOSE Routine 08/28/2017 4:55 PM EDT POCT GLUCOSE Routine 08/28/2017 11:36 AM EDT POCT GLUCOSE Routine 08/28/2017 7:45 AM EDT POCT GLUCOSE Routine 08/28/2017 3:57 AM EDT ABORH RECHECK STATUS Routine 08/28/2017 3:22 AM EDT HEMOGRAM Routine 08/28/2017 3:22 AM EDT DIFFERENTIAL, AUTOMATED Routine 08/28/2017 3:22 AM EDT ABO/RH TYPING Routine 08/28/2017 3:22 AM EDT CBC (WITH DIFF) Routine 08/28/2017 3:22 AM EDT ANTIBODY SCREEN Routine 08/28/2017 3:22 AM EDT TYPE AND SCREEN ([facility]) Routine 08/28/2017 3:22 AM EDT PHOSPHORUS Routine 08/28/2017 3:22 AM EDT MAGNESIUM Routine 08/28/2017 3:22 AM EDT COMPREHENSIVE METABOLIC PANEL Routine 08/28/2017 3:22 AM EDT POCT GLUCOSE Routine 08/27/2017 11:08 PM EDT POCT GLUCOSE Routine 08/27/2017 7:42 PM EDT POCT GLUCOSE Routine 08/27/2017 4:17 PM EDT POCT GLUCOSE Routine 08/27/2017 1:03 PM EDT XR PICC PLACEMENT OVER 5 YEARS (IV TEAM) Routine 08/27/2017 12:[address] PICC LINE: CONTACT VASCULAR ACCESS Routine 08/27/2017 12:27 PM EDT URINE HOLD Routine 08/27/2017 7:39 AM EDT URINALYSIS WITH REFLEX CULTURE Routine 08/27/2017 7:39 AM EDT URINE CULTURE Routine 08/27/2017 7:39 AM EDT POCT GLUCOSE Routine 08/27/2017 7:02 AM EDT HEMOGRAM Routine 08/27/2017 5:01 AM EDT DIFFERENTIAL, AUTOMATED Routine 08/27/2017 5:01 AM EDT CREATININE Routine 08/27/2017 5:01 AM EDT CBC (WITH DIFF) Routine 08/27/2017 5:01 AM EDT BUN Routine 08/27/2017 5:01 AM EDT ELECTROLYTES PANEL Routine 08/27/2017 5: 01 AM EDT POCT GLUCOSE Routine 08/27/2017 3:54 AM EDT POCT GLUCOSE Routine 08/26/2017 11:08 PM EDT POCT GLUCOSE Routine 08/26/2017 7:14 PM EDT POCT GLUCOSE Routine 08/26/2017 4:10 PM EDT POCT GLUCOSE Routine 08/26/2017 11:53 AM EDT XR ABDOMEN 1 VIEW STAT 08/26/2017 8:3 3 AM EDT POCT GLUCOSE Routine 08/26/2017 7:13 AM EDT HEMOGRAM Routine 08/26/2017 5:21 AM EDT DIFFERENTIAL, AUTOMATED Routine 08/26/2017 5:21 AM EDT CREATININE Routine 08/26/2017 5:21 AM EDT CBC (WITH DIFF) Routine 08/26/2017 5:21 AM EDT BUN Routine 08/26/2017 5:21 AM EDT ELECTROLYTES PANEL Routine 08/26/2017 5: 21 AM EDT POCT GLUCOSE Routine 08/26/2017 3:38 AM EDT POCT GLUCOSE Routine 08/25/2017 11:42 PM EDT POCT GLUCOSE Routine 08/25/2017 6:58 PM EDT POTASSIUM Routine 08/25/2017 6:02 PM EDT POCT GLUCOSE Routine 08/25/2017 3:55 PM EDT POCT GLUCOSE Routine 08/25/2017 11:03 AM EDT POCT GLUCOSE Routine 08/25/2017 7:11 AM EDT HEMOGRAM Routine 08/25/2017 5:02 AM EDT DIFFERENTIAL, AUTOMATED Routine 08/25/2017 5:02 AM EDT CREATININE Routine 08/25/2017 5:02 AM EDT CBC (WITH DIFF) Routine 08/25/2017 5:02 AM EDT BUN Routine 08/25/2017 5:02 AM EDT PREALBUMIN Routine 08/25/2017 5:02 AM EDT ELECTROLYTES PANEL Routine 08/25/2017 5: 02 AM EDT POCT GLUCOSE Routine 08/25/2017 3:53 AM EDT POCT GLUCOSE Routine 08/24/2017 11:36 PM EDT POCT GLUCOSE Routine 08/24/2017 7:18 PM EDT XR ABDOMEN 1 VIEW Routine 08/24/2017 6:2 0 PM EDT POCT GLUCOSE Routine 08/24/2017 4:50 PM EDT XR ABDOMEN 1 VIEW STAT 08/24/2017 4:0 6 PM EDT LACTATE, WHOLE BLOOD STAT 08/24/2017 2:[address] ABDOMEN AND PELVIS W CONTRAST STAT 08/24/2017 12:15 PM EDT HEMOGRAM STAT 08/24/2017 8:40 AM EDT DIFFERENTIAL, AUTOMATED STAT 08/24/2017 8:40 AM EDT CBC (WITH DIFF) STAT 08/24/2017 8:40 AM EDT LIPASE STAT 08/24/2017 8:40 AM EDT HEPATIC FUNCTION PANEL STAT 7 8:40 AM EDT BASIC METABOLIC PANEL STAT 08/24/2017 8:40 AM EDT documented in this encounter Results * SCAN DOC: LAB (09/16/2017 12:00 AM EDT) Narrative 09/16/2017 12:00 AM EDT Ordered by an unspecified provider. Scanning Provider MEDIA MGR SCAN EXT O RDR/RSLT * SCAN DOC: LAB (09/15/2017 12:00 AM EDT) Narrative 09/15/2017 12:00 AM EDT Ordered by an unspecified provider. Scanning Provider MEDIA MGR SCAN EXT O RDR/RSLT * (ABNORMAL) POCT Glucose (09/01/2017 7:06 AM EDT) Glucose, POC 213(H) 65 - 199 mg/dL [facility] Comment: Supplemental ranges: <140 mg/dL before meals <180 mg/dL all other times of the day Blood specimen (specimen) 09/01/2017 7:06 AM EDT 09/01/2017 7:06 AM EDT Theo Washington MD POINT OF CARE TEST ORDERABLES [facility] [place] [address] * POCT Glucose (09/01/2017 12:24 AM EDT) Glucose, POC 170 65 - 199 mg/dL [facility] Comment: Supplemental ranges: <140 mg/dL before meals <180 mg/dL all other times of the day Blood specimen (specimen) 09/01/2017 12:24 AM EDT 09/01/2017 12:24 AM EDT Theo Washington MD POINT OF CARE TEST ORDERABLES Performing Organization Address City/[facility]/ZIP Co de Phone Number [facility] [place] [address] * (ABNORMAL) POCT Glucose (08/31/2017 10:05 PM EDT) Glucose, POC 288(H) 65 - 199 mg/dL [facility] Comment: Supplemental ranges: <140 mg/dL before meals <180 mg/dL all other times of the day Blood specimen (specimen) 08/31/2017 10:05 PM EDT 08/31/2017 10:05 PM EDT Theo Washington MD POINT OF CARE TEST ORDERABLES Performing Organization Address [facility] Co de Phone Number [facility] [place] [address] * (ABNORMAL) POCT Glucose (08/31/2017 8:06 PM EDT) Glucose, POC 259(H) 65 - 199 mg/dL [facility] Comment: Supplemental ranges: <140 mg/dL before meals <180 mg/dL all other times of the day Blood specimen (specimen) 08/31/2017 8:06 PM EDT 08/31/2017 8:06 PM EDT Theo Washington MD POINT OF CARE TEST ORDERABLES Performing Organization Address City/[facility]/ZIP Co de Phone Number [facility] [place] [address] * (ABNORMAL) POCT Glucose (08/31/2017 3:34 PM EDT) Glucose, POC 239(H) 65 - 199 mg/dL [facility] Comment: Supplemental ranges: <140 mg/dL before meals <180 mg/dL all other times of the day Blood specimen (specimen) 08/31/2017 3:34 PM EDT 08/31/2017 3:34 PM EDT Theo Washington MD POINT OF CARE TEST ORDERABLES Performing Organization Address City/[facility]/ZIP Co de Phone Number [facility] [place] [address] * (ABNORMAL) POCT Glucose (08/31/2017 11:06 AM EDT) Pathologist [facility] Glucose, POC 282(H) 65 - 199 mg/dL [facility] Comment: Supplemental ranges: <140 mg/dL before meals <180 mg/dL all other times of the day Blood specimen (specimen) 08/31/2017 11:06 AM EDT 08/31/2017 11:06 AM EDT Theo Washington MD POINT OF CARE TEST ORDERABLES Performing Organization Address [facility] Co de Phone Number [facility] [place] [address] * Differential, Automated (08/31/2017 8:08 AM EDT) [facility] Neutrophil % 71.9 % [facility] Neutrophil Absolute 5.79 1.70 - 6.10 x10(3)/[facility] LABORATORY Lymph % 17.3 % [facility] Lymphocytes Abs 1.4 0.9 - 3.2 x10(3)/[facility] LABORATORY Monocyte % 8.0 % [facility] Monocyte Abs 0.6 0.3 - 0.9 x10(3)/[facility]ORATORY Eos % 1.7 % [facility] Eosinophils Abs 0.1 0.0 - 0.4 x10(3)/[facility]ATORY Basophil % 0.7 % [facility] Baso Absolute 0.1 0.0 - 0.1 x10(3)/[facility] LABORATORY Immature Gran % 0.40 % [facility] Comment: Immature granulocytes(IG's)percentage and absolute count will include metamyelocytes, myelocytes, and promyelocytes. Blood smears from CBCs yielding IG's will be scanned manually for concordance. If this scan disagrees with the automated IG or if promyelocytes are noted, a manual differential will be performed. Immature Gran Absolute 0.03 0.00 - 0.04 x10(3)/mcL [facility] Blood specimen (specimen) 08/31/2017 8:08 AM EDT 08/31/2017 8:18 AM EDT Narrative Resulting Agency Comment Spec In Lab Swetha Price MD HEMATOLOGY ORDERABLE S [facility] [place] [address] * (ABNORMAL) Hemogram (08/31/2017 8:08 AM EDT) White Blood Cell 8.0 4.0 - 9.5 x10(3)/mc L [facility] Red Blood Cell 4.22(L) 4.58 - 5.54 x10(6)/mc L [facility] Hemoglobin 12.8(L) 13.7 - 16.5 gm/dL [facility] Hematocrit 37.8(L) 40.5 - 48.5 % [facility] Mean Cell Volume 89.6 82.9 - 93.1 fL [facility] Mean Cell Hemoglobin 30.3 27.5 - 32.1 pg [facility] Mean Cell Hemoglobin Concentration 33.9 32.0 - 35.7 gm/dL [facility] Platelet 326 145 - 357 x10(3)/mc L [facility] RDW Standard Deviation 39.4 36.0 - 45.0 fL [facility] RDW coefficient of variation 12.2 11.4 - 13.8 % [facility] Mean Platelet Volume 10.1 7.6 - 12.9 fL [facility] NRBC% auto 0.0 % [facility] NRBC Absolute 0.000 0.000 - 0.000 x10(3)/mc L [facility] Blood specimen (specimen) 08/31/2017 8:08 AM EDT 08/31/2017 8:18 AM EDT Narrative Resulting Agency Comment Spec In Lab Swetha Price MD HEMATOLOGY ORDERABLE S Performing Organization Address [facility] Co de Phone Number [facility] [place] [address] * (ABNORMAL) Creatinine (08/31/2017 8:08 AM EDT) Creatinine 0.61(L) 0.80 - 1.50 mg/dL [facility] Comment: Please note that the pediatric reference intervals supplied above were not validated at [facility]. Results from pediatric patients should be interpreted in conjunction to the patient's age, height and muscle mass. Est Glomerular Filtration Rate >60 >=60 [facility] Comment: This estimated GFR (eGFR) [...] the following links into your internet browser. [email or web address] Blood specimen (specimen) 08/31/2017 8:08 AM EDT 08/31/2017 8:18 AM EDT Narrative Resulting Agency Comment Spec In Lab Swetha Price MD CHEMISTRY ORDERABLES Performing Organization Address [facility] Co de Phone Number [facility] [place] [address] * (ABNORMAL) BUN (08/31/2017 8:08 AM EDT) Blood Urea Nitrogen 23(H) 10 - 20 mg/dL [facility] Blood specimen (specimen) 08/31/2017 8:08 AM EDT 08/31/2017 8:18 AM EDT Narrative Resulting Agency Comment Spec In Lab Swetha Price MD CHEMISTRY ORDERABLES Performing Organization Address [facility] de Phone Number [facility] [place] [address] * Electrolytes panel (08/31/2017 8:08 AM EDT) Sodium 137 135 - 145 mmol/L [facility] Potassium 4.8 3.5 - 5.0 mmol/L [facility] Comment: Please note: ??Patients with WBC >100,000 may have falsely elevated Potassium levels. ??For accurate Potassium quantification in these patients send serum separator tube (gold top) for subsequent determinations. ??Contact the Clinical Chemistry Laboratory if there are any questions. Chloride 99 98 - 107 mmol/L [facility] Carbon Dioxide 23 22 - 31 mmol/L [facility] Anion Gap 15 5 - 15 mmol/L [facility] Blood specimen (specimen) 08/31/2017 8:08 AM EDT 08/31/2017 8:18 AM EDT Narrative Resulting Agency Comment Spec In Lab Swetha Price MD CHEMISTRY ORDERABLES Performing Organization Address [facility] de Phone Number [facility] [place] [address] * (ABNORMAL) POCT Glucose (08/31/2017 7:18 AM EDT) Glucose, POC 240(H) 65 - 199 mg/dL [facility] Comment: Supplemental ranges: <140 mg/dL before meals <180 mg/dL all other times of the day Blood specimen (specimen) 08/31/2017 7:18 AM EDT 08/31/2017 7:18 AM EDT Theo Washington MD POINT OF CARE TEST ORDERABLES Performing Organization Address City/[facility] Co de Phone Number [facility] [place] [address] * (ABNORMAL) POCT Glucose (08/30/2017 8:51 PM EDT) Glucose, POC 206(H) 65 - 199 mg/dL [facility] Comment: Supplemental ranges: <140 mg/dL before meals <180 mg/dL all other times of the day Blood specimen (specimen) 08/30/2017 8:51 PM EDT 08/30/2017 8:51 PM EDT Theo Washington MD POINT OF CARE TEST ORDERABLES Performing Organization Address [facility] Co de Phone Number [facility] [place] [address] * (ABNORMAL) POCT Glucose (08/30/2017 4:11 PM EDT) Glucose, POC 208(H) 65 - 199 mg/dL [facility] Comment: Supplemental ranges: <140 mg/dL before meals <180 mg/dL all other times of the day Blood specimen (specimen) 08/30/2017 4:11 PM EDT 08/30/2017 4:11 PM EDT Theo Washington MD POINT OF CARE TEST ORDERABLES Performing Organization Address City/[facility] Co de Phone Number [facility] [place] [address] * (ABNORMAL) POCT Glucose (08/30/2017 11:55 AM EDT) Glucose, POC 214(H) 65 - 199 mg/dL [facility] Comment: Supplemental ranges: <140 mg/dL before meals <180 mg/dL all other times of the day Blood specimen (specimen) 08/30/2017 11:55 AM EDT 08/30/2017 11:55 AM EDT Theo Washington MD POINT OF CARE TEST ORDERABLES Performing Organization Address City/[facility]/ZIP Co de Phone Number [facility] [place] [address] * (ABNORMAL) POCT Glucose (08/30/2017 10:33 AM EDT) Glucose, POC 210(H) 65 - 199 mg/dL [facility] Comment: Supplemental ranges: <140 mg/dL before meals <180 mg/dL all other times of the day Blood specimen (specimen) 08/30/2017 10:33 AM EDT 08/30/2017 10:33 AM EDT Theo Washington MD POINT OF CARE TEST ORDERABLES Performing Organization Address [facility] Co de Phone Number [facility] [place] [address] * (ABNORMAL) POCT Glucose (08/30/2017 7:15 AM EDT) Glucose, POC 259(H) 65 - 199 mg/dL [facility] Comment: Supplemental ranges: <140 mg/dL before meals <180 mg/dL all other times of the day Blood specimen (specimen) 08/30/2017 7:15 AM EDT 08/30/2017 7:15 AM EDT Theo Washington MD POINT OF CARE TEST ORDERABLES Performing Organization Address City/[facility]/ZIP Co de Phone Number [facility] [place] [address] * Differential, Automated (08/30/2017 6:04 AM EDT) Neutrophil % 72.6 % [facility] Neutrophil Absolute 5.34 1.70 - 6.10 x10(3)/[facility] LAB[facility]AT[facility] Lymph % 16.2 % [facility] Lymphocytes Abs 1.2 0.9 - 3.2 x10(3)/[facility] Monocyte % 8.3 % [facility] Monocyte Abs 0.6 0.3 - 0.9 x10(3)/[facility] Eos % 2.4 % [facility] Eosinophils Abs 0.2 0.0 - 0.4 x10(3)/[facility] Basophil % 0.4 % [facility] Baso Absolute 0.0 0.0 - 0.1 x10(3)/[facility] Immature Gran % 0.10 % [facility] Comment: Immature granulocytes(IG's)percentage and absolute count will include metamyelocytes, myelocytes, and promyelocytes. Blood smears from CBCs yielding IG's will be scanned manually for concordance. If this scan disagrees with the automated IG or if promyelocytes are noted, a manual differential will be performed. Immature Gran Absolute 0.01 0.00 - 0.04 x10(3)/[facility] Blood specimen (specimen) 08/30/2017 6:04 AM EDT 08/30/2017 6:29 AM EDT Narrative Resulting Agency Comment Spec In Lab Swetha Price MD HEMATOLOGY ORDERABLE S [facility] [place] [address] * (ABNORMAL) Hemogram (08/30/2017 6:04 AM EDT) White Blood Cell 7.4 4.0 - 9.5 x10(3)/mc L [facility] Red Blood Cell 4.16(L) 4.58 - 5.54 x10(6)/mc L [facility] Hemoglobin 12.8(L) 13.7 - 16.5 gm/dL [facility] Hematocrit 36.8(L) 40.5 - 48.5 % [facility] Mean Cell Volume 88.5 82.9 - 93.1 fL [facility] Mean Cell Hemoglobin 30.8 27.5 - 32.1 pg [facility] Mean Cell Hemoglobin Concentration 34.8 32.0 - 35.7 gm/dL [facility] Platelet 321 145 - 357 x10(3)/mc L [facility] RDW Standard Deviation 39.3 36.0 - 45.0 fL [facility] RDW coefficient of variation 12.1 11.4 - 13.8 % [facility] Mean Platelet Volume 10.0 7.6 - 12.9 fL [facility] NRBC% auto 0.0 % [facility] NRBC Absolute 0.000 0.000 - 0.000 x10(3)/mc L [facility] Blood specimen (specimen) 08/30/2017 6:04 AM EDT 08/30/2017 6:29 AM EDT Narrative Resulting Agency Comment Spec In Lab Swetha Price MD HEMATOLOGY ORDERABLE S [facility] [place] [phone] * (ABNORMAL) Creatinine (08/30/2017 6:04 AM EDT) Creatinine 0.56(L) 0.80 - 1.50 mg/dL [facility] Comment: Please note that the pediatric reference intervals supplied above were not validated at [facility]. Results from pediatric patients should be interpreted in conjunction to the patient's age, height and muscle mass. Est Glomerular Filtration Rate >60 >=60 [facility] Comment: This estimated GFR (eGFR) [...] the following links into your internet browser. [email or web address] Blood specimen (specimen) 08/30/2017 6:04 AM EDT 08/30/2017 6:29 AM EDT Narrative Resulting Agency Comment Spec In Lab Swetha Price MD CHEMISTRY ORDERABLES Performing Organization Address [facility] Co de Phone Number [facility] [place] [address] * BUN (08/30/2017 6:04 AM EDT) Blood Urea Nitrogen 20 10 - 20 mg/dL [facility] Blood specimen (specimen) 08/30/2017 6:04 AM EDT 08/30/2017 6:29 AM EDT Narrative Resulting Agency Comment Spec In Lab Swetha Price MD CHEMISTRY ORDERABLES Performing Organization Address [facility] Phone Number [facility] [place] [address] * Electrolytes panel (08/30/2017 6:04 AM EDT) Sodium 136 135 - 145 mmol/L [facility] Potassium 4.7 3.5 - 5.0 mmol/L [facility] Comment: Please note: ??Patients with WBC >100,000 may have falsely elevated Potassium levels. ??For accurate Potassium quantification in these patients send serum separator tube (gold top) for subsequent determinations. ??Contact the Clinical Chemistry Laboratory if there are any questions. Chloride 100 98 - 107 mmol/L [facility] Carbon Dioxide 23 22 - 31 mmol/L [facility] Anion Gap 13 5 - 15 mmol/L [facility] Blood specimen (specimen) 08/30/2017 6:04 AM EDT 08/30/2017 6:29 AM EDT Narrative Resulting Agency Comment Spec In Lab Swetha Price MD CHEMISTRY ORDERABLES Performing Organization Address [facility] Co de Phone Number [facility] [place] [address] * POCT Glucose (08/29/2017 8:50 PM EDT) Glucose, POC 185 65 - 199 mg/dL [facility] Comment: Supplemental ranges: <140 mg/dL before meals <180 mg/dL all other times of the day Blood specimen (specimen) 08/29/2017 8:50 PM EDT 08/29/2017 8:50 PM EDT Theo Washington MD POINT OF CARE TEST ORDERABLES [facility] [place] [address] * (ABNORMAL) POCT Glucose (08/29/2017 5:44 PM EDT) Glucose, POC 222(H) 65 - 199 mg/dL [facility] Comment: Supplemental ranges: <140 mg/dL before meals <180 mg/dL all other times of the day Blood specimen (specimen) 08/29/2017 5:44 PM EDT 08/29/2017 5:44 PM EDT Theo Washington MD POINT OF CARE TEST ORDERABLES [facility] [place] [address] * (ABNORMAL) POCT Glucose (08/29/2017 4:30 PM EDT) Glucose, POC 234(H) 65 - 199 mg/dL [facility] Comment: Supplemental ranges: <140 mg/dL before meals <180 mg/dL all other times of the day Blood specimen (specimen) 08/29/2017 4:30 PM EDT 08/29/2017 4:30 PM EDT Theo Washington MD POINT OF CARE TEST ORDERABLES [facility] [place] [address] * POCT Glucose (08/29/2017 11:29 AM EDT) Glucose, POC 197 65 - 199 mg/dL [facility] Comment: Supplemental ranges: <140 mg/dL before meals <180 mg/dL all other times of the day Blood specimen (specimen) 08/29/2017 11:29 AM EDT 08/29/2017 11:29 AM EDT Theo Washington MD POINT OF CARE TEST ORDERABLES [facility] [place] [address] * (ABNORMAL) POCT Glucose (08/29/2017 8:59 AM EDT) Glucose, POC 227(H) 65 - 199 mg/dL [facility] Comment: Supplemental ranges: <140 mg/dL before meals <180 mg/dL all other times of the day Blood specimen (specimen) 08/29/2017 8:59 AM EDT 08/29/2017 8:59 AM EDT Theo Washington MD POINT OF CARE TEST ORDERABLES [facility] [place] [address] * (ABNORMAL) POCT Glucose (08/29/2017 7:00 AM EDT) Glucose, POC 246(H) 65 - 199 mg/dL [facility] Comment: Supplemental ranges: <140 mg/dL before meals <180 mg/dL all other times of the day Blood specimen (specimen) 08/29/2017 7:00 AM EDT 08/29/2017 7:00 AM EDT Theo Washington MD POINT [place] [address] * (ABNORMAL) Differential, Automated (08/29/2017 6:25 AM EDT) Pathologist [facility] Neutrophil % 79.2 % [facility] Neutrophil Absolute 9.14(H) 1.70 - 6.10 x10(3)/ L [facility] Lymph % 11.7 % [facility] Lymphocytes Abs 1.4 0.9 - 3.2 x10(3)/ L [facility] Monocyte % 6.3 % [facility] Monocyte Abs 0.7 0.3 - 0.9 x10(3)/[facility] Eos % 1.9 % [facility] Eosinophils Abs 0.2 0.0 - 0.4 x10(3)/[facility] Basophil % 0.5 % [facility] Baso Absolute 0.1 0.0 - 0.1 x10(3)/ L [facility] Immature Gran % 0.40 % [facility] Comment: Immature granulocytes(IG's)percentage and absolute count will include metamyelocytes, myelocytes, and promyelocytes. Blood smears from CBCs yielding IG's will be scanned manually for concordance. If this scan disagrees with the automated IG or if promyelocytes are noted, a manual differential will be performed. Immature Gran Absolute 0.05(H) 0.00 - 0.04 x10(3)/ L [facility] Blood specimen (specimen) 08/29/2017 6:25 AM EDT 08/29/2017 6:47 AM EDT Narrative Resulting Agency Comment Spec In Lab Swetha Price [place] [address] * (ABNORMAL) Hemogram (08/29/2017 6:25 AM EDT) [facility] White Blood Cell 11.6(H) 4.0 - 9.5 x10(3)/[facility] LAB[facility] Red Blood Cell 4.24(L) 4.58 - 5.54 x10(6)/mc L [facility] Hemoglobin 12.9(L) 13.7 - 16.5 gm/dL [facility] Hematocrit 37.1(L) 40.5 - 48.5 % [facility] Mean Cell Volume 87.5 82.9 - 93.1 fL [facility] Mean Cell Hemoglobin 30.4 27.5 - 32.1 pg [facility] Mean Cell Hemoglobin Concentration 34.8 32.0 - 35.7 gm/dL [facility] Platelet 321 145 - 357 x10(3)/[facility] LAB[facility]ATORY RDW Standard Deviation 38.5 36.0 - 45.0 [facility] LABORATORY RDW coefficient of variation 11.9 11.4 - 13.8 % [facility] Mean Platelet Volume 10.0 7.6 - 12.9 [facility] LAB[facility]ATORY NRBC% auto 0.0 % [facility] NRBC Absolute 0.000 0.000 - 0.000 x10(3)/[facility] Blood specimen (specimen) 08/29/2017 6:25 AM EDT 08/29/2017 6:47 AM EDT Narrative Resulting Agency Comment Spec In Lab Swetha Price MD HEMATOLOGY ORDERABLE S [facility] [place] [address] * (ABNORMAL) Creatinine (08/29/2017 6:25 AM EDT) [facility] Creatinine 0.60(L) 0.80 - 1.50 mg/dL [facility] Comment: Please note that the pediatric reference intervals supplied above were not validated at [facility]. Results from pediatric patients should be interpreted in conjunction to the patient's age, height and muscle mass. Est Glomerular Filtration Rate >60 >=60 [facility] Comment: This estimated GFR (eGFR) [...] the following links into your internet browser. [email or web address] Blood specimen (specimen) 08/29/2017 6:25 AM EDT 08/29/2017 6:47 AM EDT Narrative Resulting Agency Comment Spec In Lab Swetha Price MD CHEMISTRY ORDERABLES Performing Organization Address [facility] de Phone Number [facility] [place] [address] * BUN (08/29/2017 6:25 AM EDT) Blood Urea Nitrogen 17 10 - 20 mg/dL [facility] Blood specimen (specimen) 08/29/2017 6:25 AM EDT 08/29/2017 6:47 AM EDT Narrative Resulting Agency Comment Spec In Lab Swetha Price MD CHEMISTRY ORDERABLES Performing Organization Address [facility] de Phone Number [facility] [place] [address] * (ABNORMAL) Electrolytes panel (08/29/2017 6:25 AM EDT) Sodium 135 135 - 145 mmol/L [facility] Potassium 4.3 3.5 - 5.0 mmol/L [facility] Comment: Please note: ??Patients with WBC >100,000 may have falsely elevated Potassium levels. ??For accurate Potassium quantification in these patients send serum separator tube (gold top) for subsequent determinations. ??Contact the Clinical Chemistry Laboratory if there are any questions. Chloride 96(L) 98 - 107 mmol/L [facility] Carbon Dioxide 25 22 - 31 mmol/L [facility] Anion Gap 14 5 - 15 mmol/L [facility] Blood specimen (specimen) 08/29/2017 6:25 AM EDT 08/29/2017 6:47 AM EDT Narrative Resulting Agency Comment Spec In Lab Swetha Price MD CHEMISTRY ORDERABLES Performing Organization Address City/[facility]/ZIP Co de Phone Number [facility] [place] [address] * (ABNORMAL) POCT Glucose (08/29/2017 3:42 AM EDT) Glucose, POC 203(H) 65 - 199 mg/dL [facility] Comment: Supplemental ranges: <140 mg/dL before meals <180 mg/dL all other times of the day Blood specimen (specimen) 08/29/2017 3:42 AM EDT 08/29/2017 3:42 AM EDT Theo Washington MD POINT OF CARE TEST ORDERABLES Performing Organization Address [facility]/ZIP Co de Phone Number [facility] [place] [address] * (ABNORMAL) POCT Glucose (08/28/2017 11:24 PM EDT) Glucose, POC 210(H) 65 - 199 mg/dL [facility] Comment: Supplemental ranges: <140 mg/dL before meals <180 mg/dL all other times of the day Blood specimen (specimen) 08/28/2017 11:24 PM EDT 08/28/2017 11:24 PM EDT Theo Washington MD POINT OF CARE TEST ORDERABLES Performing Organization Address City/[facility]/ZIP Co de Phone Number [facility] [place] [address] * (ABNORMAL) POCT Glucose (08/28/2017 7:20 PM EDT) Glucose, POC 206(H) 65 - 199 mg/dL [facility] Comment: Supplemental ranges: <140 mg/dL before meals <180 mg/dL all other times of the day Blood specimen (specimen) 08/28/2017 7:20 PM EDT 08/28/2017 7:20 PM EDT Theo Washington MD POINT OF CARE TEST ORDERABLES [facility] [place] [address] * (ABNORMAL) POCT Glucose (08/28/2017 4:55 PM EDT) Glucose, POC 202(H) 65 - 199 mg/dL [facility] Comment: Supplemental ranges: <140 mg/dL before meals <180 mg/dL all other times of the day Blood specimen (specimen) 08/28/2017 4:55 PM EDT 08/28/2017 4:55 PM EDT Theo Washington MD POINT OF CARE TEST ORDERABLES [facility] [place] [address] * POCT Glucose (08/28/2017 11:36 AM EDT) Glucose, POC 179 65 - 199 mg/dL [facility] Comment: Supplemental ranges: <140 mg/dL before meals <180 mg/dL all other times of the day Blood specimen (specimen) 08/28/2017 11:36 AM EDT 08/28/2017 11:36 AM EDT Theo Washington MD POINT OF CARE TEST ORDERABLES [facility] [place] [address] * POCT Glucose (08/28/2017 7:45 AM EDT) Glucose, POC 193 65 - 199 mg/dL [facility] Comment: Supplemental ranges: <140 mg/dL before meals <180 mg/dL all other times of the day Blood specimen (specimen) 08/28/2017 7:45 AM EDT 08/28/2017 7:45 AM EDT Theo Washington MD POINT OF CARE TEST ORDERABLES Performing Organization Address City/[facility]/ZIP Co de Phone Number [facility] [place] [address] * POCT Glucose (08/28/2017 3:57 AM EDT) [facility] Glucose, POC 185 65 - 199 mg/dL [facility] Comment: Supplemental ranges: <140 mg/dL before meals <180 mg/dL all other times of the day Blood specimen (specimen) 08/28/2017 3:57 AM EDT 08/28/2017 3:57 AM EDT Theo Washington MD POINT OF CARE TEST ORDERABLES Performing Organization Address [facility]/ZIP Co de Phone Number [facility] [place] [address] * ABORH Recheck Status (08/28/2017 3:22 AM EDT) [facility] ABORH Type Recheck Completed [facility] Blood specimen (specimen) 08/28/2017 3:22 AM EDT 08/28/2017 3:25 AM EDT Narrative Resulting Agency Comment Spec In Lab Theo Washington MD BLOOD BANK LAB ORDE PRATIK [facility] [place] [address] * Antibody screen (08/28/2017 3:22 AM EDT) [facility] Ab Screen Interp Negative [facility] Expires at [id number] on: 08/31/2017 [facility] Blood specimen (specimen) 08/28/2017 3:22 AM EDT 08/28/2017 3:25 AM EDT Narrative Resulting Agency Comment Spec In Lab Theo Washington MD BLOOD BANK LAB ADAM CHRISTIE [facility] [place] [address] * ABO/Rh Typing (08/28/2017 3:22 AM EDT) [facility] ABORH Type A Neg [facility] Blood specimen (specimen) 08/28/2017 3:22 AM EDT 08/28/2017 3:25 AM EDT Narrative Resulting Agency Comment Spec In Lab Theo Washington MD BLOOD BANK LAB ADAM CHRISTIE Performing Organization Address City/[facility]/ZIP Co de Phone Number [facility] [place] [address] * (ABNORMAL) Differential, Automated (08/28/2017 3:22 AM EDT) [facility] Neutrophil % 80.8 % [facility] Neutrophil Absolute 10.41(H) 1.70 - 6.10 x10(3)/mc L [facility] Lymph % 11.1 % [facility] Lymphocytes Abs 1.4 0.9 - 3.2 x10(3)/mc L [facility] Monocyte % 6.2 % [facility] Monocyte Abs 0.8 0.3 - 0.9 x10(3)/mc L [facility] Eos % 1.1 % [facility] Eosinophils Abs 0.1 0.0 - 0.4 x10(3)/mc L [facility] Basophil % 0.3 % [facility] Baso Absolute 0.0 0.0 - 0.1 x10(3)/mc L [facility] Immature Gran % 0.50 % [facility] Comment: Immature granulocytes(IG's)percentage and absolute count will include metamyelocytes, myelocytes, and promyelocytes. Blood smears from CBCs yielding IG's will be scanned manually for concordance. If this scan disagrees with the automated IG or if promyelocytes are noted, a manual differential will be performed. Immature Gran Absolute 0.07(H) 0.00 - 0.04 x10(3)/mc L [facility] Blood specimen (specimen) 08/28/2017 3:22 AM EDT 08/28/2017 3:27 AM EDT Narrative Resulting Agency Comment Spec In Lab Swetha Price MD HEMATOLOGY ORDERABLE S [facility] [place] [address] * (ABNORMAL) Hemogram (08/28/2017 3:22 AM EDT) White Blood Cell 12.9(H) 4.0 - 9.5 x10(3)/ L [facility] Red Blood Cell 3.99(L) 4.58 - 5.54 x10(6)/mc L [facility] Hemoglobin 12.1(L) 13.7 - 16.5 gm/dL [facility] Hematocrit 35.5(L) 40.5 - 48.5 % [facility] Mean Cell Volume 89.0 82.9 - 93.1 fL [facility] Mean Cell Hemoglobin 30.3 27.5 - 32.1 pg [facility] Mean Cell Hemoglobin Concentration 34.1 32.0 - 35.7 gm/dL [facility] Platelet 305 145 - 357 x10(3)/mc L [facility] RDW Standard Deviation 39.3 36.0 - 45.0 [facility] RDW coefficient of variation 12.0 11.4 - 13.8 % [facility] Mean Platelet Volume 9.8 7.6 - 12.9 fL [facility] NRBC% auto 0.0 % [facility] NRBC Absolute 0.000 0.000 - 0.000 x10(3)/mc L [facility] Blood specimen (specimen) 08/28/2017 3:22 AM EDT 08/28/2017 3:27 AM EDT Narrative Resulting Agency Comment Spec In Lab Swetha Price MD HEMATOLOGY ORDERABLE S Performing Organization Address City/[facility]/ZIP Co de Phone Number [facility] [place] [address] * Phosphorus (08/28/2017 3:22 AM EDT) Phosphorus 3.1 2.5 - 4.5 mg/dL [facility] Blood specimen (specimen) 08/28/2017 3:22 AM EDT 08/28/2017 3:27 AM EDT Narrative Resulting Agency Comment Spec In Lab Milton Singh MD CHEMISTRY ORDERABLES Performing Organization Address [facility]/ZIP Co de Phone Number [facility] [place] [address] * Magnesium (08/28/2017 3:22 AM EDT) Magnesium 0.80 0.69 - 1.07 mmol/L [facility] Blood specimen (specimen) 08/28/2017 3:22 AM EDT 08/28/2017 3:27 AM EDT Narrative Resulting Agency Comment Spec In Lab Milton Singh MD CHEMISTRY ORDERABLES Performing Organization Address [facility]/ZIP Co de Phone Number [facility] [place] [address] * (ABNORMAL) Comprehensive metabolic panel (non-fasting) (08/28/2017 3:22 AM EDT) Glucose 201(H) 65 - 199 mg/dL [facility] Comment:Diabetes: >=200 mg/d L plus symptoms Blood Urea Nitrogen 11 10 - 20 mg/dL [facility] Creatinine 0.63(L) 0.80 - 1.50 mg/dL [facility] Comment: Please note that the pediatric reference intervals supplied above were not validated at [facility]. Results from pediatric patients should be interpreted in conjunction to the patient's age, height and muscle mass. Sodium 138 135 - 145 mmol/L [facility] Potassium 4.0 3.5 - 5.0 mmol/L [facility] Comment: Please note: ??Patients with WBC >100,000 may have falsely elevated Potassium levels. ??For accurate Potassium quantification in these patients send serum separator tube (gold top) for subsequent determinations. ??Contact the Clinical Chemistry Laboratory if there are any questions. Chloride 93(L) 98 - 107 mmol/L [facility] Carbon Dioxide 30 22 - 31 mmol/L [facility] Anion Gap 15 5 - 15 mmol/L [facility] Calcium 7.8(L) 8.5 - 10.5 mg/dL [facility] Protein, Total 5.7(L) 6.1 - 8.0 gm/dL [facility] Albumin 3.2 3.2 - 5.2 gm/dL [facility] Aspartate Aminotransferase 12 0 - 39 unit/L [facility] Alanine Aminotransferase 19 0 - 55 unit/L [facility] Alkaline Phosphatase 52 40 - 120 unit/L [facility] Bilirubin, Total 0.4 0.2 - 1.3 mg/dL [facility] Est Glomerular Filtration Rate >60 >=60 [facility] Comment: This estimated GFR (eGFR) [...] the following links into your internet browser. [email or web address] Blood specimen (specimen) 08/28/2017 3:22 AM EDT 08/28/2017 3:27 AM EDT Narrative Resulting Agency Comment Spec In Lab Milton Singh MD CHEMISTRY ORDERABLES Performing Organization Address City/[facility]/ZIP Co de Phone Number [facility] [place] [address] * POCT Glucose (08/27/2017 11:08 PM EDT) Glucose, POC 183 65 - 199 mg/dL [facility] Comment: Supplemental ranges: <140 mg/dL before meals <180 mg/dL all other times of the day Blood specimen (specimen) 08/27/2017 11:08 PM EDT 08/27/2017 11:08 PM EDT Theo Washington MD POINT OF CARE TEST ORDERABLES Performing Organization Address [facility] Co de Phone Number [facility] [place] [address] * POCT Glucose (08/27/2017 7:42 PM EDT) Glucose, POC 153 65 - 199 mg/dL [facility] Comment: Supplemental ranges: <140 mg/dL before meals <180 mg/dL all other times of the day Blood specimen (specimen) 08/27/2017 7:42 PM EDT 08/27/2017 7:42 PM EDT Theo Washington MD POINT OF CARE TEST ORDERABLES Performing Organization Address City/[facility] Co de Phone Number [facility] [place] [address] * POCT Glucose (08/27/2017 4:17 PM EDT) Glucose, POC 194 65 - 199 mg/dL [facility] Comment: Supplemental ranges: <140 mg/dL before meals <180 mg/dL all other times of the day Blood specimen (specimen) 08/27/2017 4:17 PM EDT 08/27/2017 4:17 PM EDT Theo Washington MD POINT OF CARE TEST ORDERABLES [facility] [place] [address] * POCT Glucose (08/27/2017 1:03 PM EDT) Glucose, POC 139 65 - 199 mg/dL [facility] Comment: Supplemental ranges: <140 mg/dL before meals <180 mg/dL all other times of the day Blood specimen (specimen) 08/27/2017 1:03 PM EDT 08/27/2017 1:03 PM EDT Theo Washington MD POINT OF CARE TEST ORDERABLES Performing Organization Address City/[facility]/ZIP Co de Phone Number [facility] [place] [address] * XR PICC Placement Over 5 Years (IV Team) (08/27/2017 12:29 PM EDT) Anatomical Region Laterality Modality N/A Radio Fluoroscop y Narrative 08/27/2017 2:09 PM EDT EXAMINATION: XR PICC PLACEMENT OVER 5 YEARS (IV TEAM) CLINICAL HISTORY: Confirmation of PICC line placement TECHNIQUE: C-arm placement of PICC. Limited view of the line tip only. COMPARISON: None FINDINGS: Intraprocedural frontal radiograph of the mediastinum demonstrates a Right PICC, with the catheter tip projected at the superior cavoatrial junction. Procedure Note Tammie Calloway MD - 08/27/2017 EXAMINATION: XR PICC PLACEMENT OVER 5 YEARS (IV TEAM) CLINICAL HISTORY: Confirmation of PICC line placement TECHNIQUE: C-arm placement of PICC. Limited view of the line tip only. COMPARISON: None FINDINGS: Intraprocedural frontal radiograph of the mediastinumdemonstrates a Right PICC, with the catheter tip projected at the superior cavoatrialjunction. Theo Washington MD IMG FLUORO ORDERABL ES * Place PICC Line: Contact Vascular Access Page [id number] Extremity to exclude: No restrictions; Is PICC procedure required PRIOR to patients discharge? Yes (08/27/2017 12:27 PM EDT) Narrative Oliva Mccollum RN - 08/27/2017 12:27 PM EDT Oliva Mccollum RN ? 08/27/2017 12:27 PM PICC/Midline Insertion Procedure Note Indications: TPN This insertion was not to replace a [...] patient positioning and presence of the site reg was confirmed as applicable. The medical history and chart were reviewed to rule out potential contraindications to the planned procedure. Hand Hygiene: The service tester did perform hand hygiene prior to line insertion. Catheter type: PICC Lot number: [id number] Procedure Technique: Skin was prepped with chlorhexidine. [...] received for catheter placement. A 5 Fr. double lumen Bard Power catheter was placed into the right basilic vein over a 0.018 inch guidewire using modified seldinger technique and fluoroscopy. Arm circumference was 36 cm at 2 cm above the insertion site. Final catheter length (with trimming): 37 cm Internal: 37 cm External: 0 cm Tip in SVC per Dr. Quiñonez. The line was not placed over a guidewire. Post Procedure: Diagnosis: Partial SBO Blood return noted on aspiration of line after placement confirmed. 5 mls of normal saline infused free flowing to gravity via PICC after insertion. Sterile dressing applied: CHG Impregnated Tegaderm. Findings: The patient did tolerate the procedure well. No Complications. Procedure Comments: OLIVA MCCOLLUM RN 08/27/2017 Theo Washington MD PROCEDURE/MINOR MAY GICAL ORDERABLES * (ABNORMAL) Urine culture (08/27/2017 7:39 AM EDT) Urine Culture Greater than 100,000 cfu/ml Coagulase negative Staphylococcus species Susceptibility testing not routinely performed for Coagulase Negative Staphylococcus species and other Gram Positive organisms from urine. (A) [facility] Organism Coagulase negative Staphylococcus species(A) [facility] Urine specimen obtained by clean catch procedure (specimen) 08/27/2017 7:39 AM EDT 08/27/2017 8:14 AM EDT Narrative Resulting Agency Comment Spec In Lab Theo Washington MD MICROBIOLOGY - GENE RAL ORDERABLES [facility] [place] [address] * Urine Hold (08/27/2017 7:39 AM EDT) Hold, Urine Sample in lab. [facility] Urine specimen (specimen) Urine / Unknown 08/27/2017 7:39 AM EDT 08/27/2017 7:52 AM EDT Theo Washington MD URINE ORDERABLES [facility] [place] [address] * (ABNORMAL) Urinalysis with reflex Culture (08/27/2017 7:39 AM EDT) Glucose, Urine Dipstick 50(A) Negative mg/dL [facility] Protein, Urine Dipstick 100(A) Negative mg/dL [facility] Bilirubin, Urine Dipstick Negative Negative mg/dL [facility] Comment: Clinical correlation required for positive Urine Bilirubin results as false positive may occur with some drugs and drug related products. If a false positive is suspected a serum total bilirubin should be considered if clinically indicated. Urobilinogen, Urine Dipstick Normal Normal mg/dL [facility] pH, Urn (dipstick) 8.0 5.0 - 8.0 [facility] Blood, Urine Dipstick Negative Negative mg/dL [facility] Ketone, Urine Dipstick >=80(Critica l) Negative mg/dL [facility] Comment: Urinalysis result NOT critical without a combination of Glucose greater than or equal to 500mg/dl AND Ketones greater than or equal to 80mg/dl. Nitrite, Urine Dipstick Negative Negative [facility] Leukocytes, Urine Dipstick Large(A) Negative [facility] Appearance, Urine Dipstick Cloudy(A) Clear [facility] Specific Blackey Urine Automated 1.021 1.002 - 1.030 [facility] Color, Urine Dipstick Yellow Yellow [facility] RBC, Urine 3 0 - 3 /HPF [facility] WBC, Urine >182(H) 0 - 3 /HPF [facility] Bacteria, Urine Occasional(A ) None /HPF [facility] Squamous Epithelial Cells Raw Data, Urine <1 <=4 /HPF [facility] Reflex to Culture Yes [facility] Urine specimen obtained by clean catch procedure (specimen) 08/27/2017 7:39 AM EDT 08/27/2017 7:50 AM EDT Narrative Resulting Agency Comment Spec In Lab Theo Washington MD URINE ORDERABLES [facility] [place] [address] * POCT Glucose (08/27/2017 7:02 AM EDT) Glucose, POC 155 65 - 199 mg/dL [facility] Comment: Supplemental ranges: <140 mg/dL before meals <180 mg/dL all other times of the day Blood specimen (specimen) 08/27/2017 7:02 AM EDT 08/27/2017 7:02 AM EDT Theo Washington MD POINT OF CARE TEST ORDERABLES Performing Organization Address City/State/[facility] Co de Phone Number [facility] [place] [address] * (ABNORMAL) Differential, Automated (08/27/2017 5:01 AM EDT) Neutrophil % 84.4 % [facility] Neutrophil Absolute 12.94(H) 1.70 - 6.10 x10(3)/[facility] LAB[facility]AT[facility] Lymph % 8.0 % [facility] Lymphocytes Abs 1.2 0.9 - 3.2 x10(3)/[facility] Monocyte % 6.5 % [facility] Monocyte Abs 1.0(H) 0.3 - 0.9 x10(3)/ L [facility] Eos % 0.4 % [facility] Eosinophils Abs 0.1 0.0 - 0.4 x10(3)/[facility] LAB[facility]ORY Basophil % 0.3 % [facility] Baso Absolute 0.0 0.0 - 0.1 x10(3)/ L [facility] Immature Gran % 0.40 % [facility] Comment: Immature granulocytes(IG's)percentage and absolute count will include metamyelocytes, myelocytes, and promyelocytes. Blood smears from CBCs yielding IG's will be scanned manually for concordance. If this scan disagrees with the automated IG or if promyelocytes are noted, a manual differential will be performed. Immature Gran Absolute 0.06(H) 0.00 - 0.04 x10(3)/ L [facility] Blood specimen (specimen) 08/27/2017 5:01 AM EDT 08/27/2017 5:28 AM EDT Narrative Resulting Agency Comment Spec In Lab Swetha Price MD HEMATOLOGY ORDERABLE S [facility] [place] [address] * (ABNORMAL) Hemogram (08/27/2017 5:01 AM EDT) White Blood Cell 15.3(H) 4.0 - 9.5 x10(3)/mc L [facility] Red Blood Cell 4.33(L) 4.58 - 5.54 x10(6)/mc L [facility] Hemoglobin 13.2(L) 13.7 - 16.5 gm/dL [facility] Hematocrit 38.1(L) 40.5 - 48.5 % [facility] Mean Cell Volume 88.0 82.9 - 93.1 fL [facility] Mean Cell Hemoglobin 30.5 27.5 - 32.1 pg [facility] Mean Cell Hemoglobin Concentration 34.6 32.0 - 35.7 gm/dL [facility] Platelet 349 145 - 357 x10(3)/mc L [facility] RDW Standard Deviation 39.1 36.0 - 45.0 fL [facility] RDW coefficient of variation 12.1 11.4 - 13.8 % [facility] Mean Platelet Volume 10.1 7.6 - 12.9 fL [facility] NRBC% auto 0.0 % [facility] NRBC Absolute 0.000 0.000 - 0.000 x10(3)/mc L [facility] Blood specimen (specimen) 08/27/2017 5:01 AM EDT 08/27/2017 5:28 AM EDT Narrative Resulting Agency Comment Spec In Lab Swetha Price MD HEMATOLOGY ORDERABLE S Performing Organization Address City/[facility]/ZIP Co de Phone Number [facility] [place] [address] * (ABNORMAL) Creatinine (08/27/2017 5:01 AM EDT) Creatinine 0.70(L) 0.80 - 1.50 mg/dL [facility] Comment: Please note that the pediatric reference intervals supplied above were not validated at [facility]. Results from pediatric patients should be interpreted in conjunction to the patient's age, height and muscle mass. Est Glomerular Filtration Rate >60 >=60 [facility] Comment: This estimated GFR (eGFR) [...] the following links into your internet browser. [email or web address] Blood specimen (specimen) 08/27/2017 5:01 AM EDT 08/27/2017 5:28 AM EDT Narrative Resulting Agency Comment Spec In Lab Swetha Price MD CHEMISTRY ORDERABLES Performing Organization Address [facility] Co de Phone Number [facility] [place] [address] * (ABNORMAL) BUN (08/27/2017 5:01 AM EDT) Blood Urea Nitrogen 8(L) 10 - 20 mg/dL [facility] Blood specimen (specimen) 08/27/2017 5:01 AM EDT 08/27/2017 5:28 AM EDT Narrative Resulting Agency Comment Spec In Lab Swetha Price MD CHEMISTRY ORDERABLES Performing Organization Address City/[facility]/ZIP Co de Phone Number [facility] [place] [address] * (ABNORMAL) Electrolytes panel (08/27/2017 5:01 AM EDT) Sodium 144 135 - 145 mmol/L [facility] Potassium 3.2(L) 3.5 - 5.0 mmol/L [facility] Comment: Please note: ??Patients with WBC >100,000 may have falsely elevated Potassium levels. ??For accurate Potassium quantification in these patients send serum separator tube (gold top) for subsequent determinations. ??Contact the Clinical Chemistry Laboratory if there are any questions. Chloride 90(L) 98 - 107 mmol/L [facility] Carbon Dioxide 32(H) 22 - 31 mmol/L [facility] Anion Gap 22(H) 5 - 15 mmol/L [facility] Blood specimen (specimen) 08/27/2017 5:01 AM EDT 08/27/2017 5:28 AM EDT Narrative Resulting Agency Comment Spec In Lab Swetha Price MD CHEMISTRY ORDERABLES [facility] [place] [address] * POCT Glucose (08/27/2017 3:54 AM EDT) Glucose, POC 131 65 - 199 mg/dL [facility] Comment: Supplemental ranges: <140 mg/dL before meals <180 mg/dL all other times of the day Blood specimen (specimen) 08/27/2017 3:54 AM EDT 08/27/2017 3:54 AM EDT Theo Washington MD POINT OF CARE TEST ORDERABLES [facility] [place] [address] * POCT Glucose (08/26/2017 11:08 PM EDT) Glucose, POC 150 65 - 199 mg/dL [facility] Comment: Supplemental ranges: <140 mg/dL before meals <180 mg/dL all other times of the day Blood specimen (specimen) 08/26/2017 11:08 PM EDT 08/26/2017 11:08 PM EDT Theo Washington MD POINT OF CARE TEST ORDERABLES [facility] [place] [address] * POCT Glucose (08/26/2017 7:14 PM EDT) Glucose, POC 135 65 - 199 mg/dL [facility] Comment: Supplemental ranges: <140 mg/dL before meals <180 mg/dL all other times of the day Blood specimen (specimen) 08/26/2017 7:14 PM EDT 08/26/2017 7:14 PM EDT Theo Washington MD POINT OF CARE TEST ORDERABLES Performing Organization Address City/[facility]/ZIP Co de Phone Number [facility] [place] [address] * POCT Glucose (08/26/2017 4:10 PM EDT) Glucose, POC 118 65 - 199 mg/dL [facility] Comment: Supplemental ranges: <140 mg/dL before meals <180 mg/dL all other times of the day Blood specimen (specimen) 08/26/2017 4:10 PM EDT 08/26/2017 4:10 PM EDT Theo Washington MD POINT OF CARE TEST ORDERABLES [facility] [place] [address] * POCT Glucose (08/26/2017 11:53 AM EDT) Glucose, POC 161 65 - 199 mg/dL [facility] Comment: Supplemental ranges: <140 mg/dL before meals <180 mg/dL all other times of the day Blood specimen (specimen) 08/26/2017 11:53 AM EDT 08/26/2017 11:53 AM EDT Theo Washington MD POINT OF CARE TEST ORDERABLES [facility] [place] [address] * XR Abdomen 1 view (Generic) (08/26/2017 8:33 AM EDT) Anatomical Region Laterality Modality Abdomen N/A Digital Radiogra phy Impressions 08/26/2017 8:43 AM EDT Residual contrast in the left side of the colon and at the ostomy. Normalized small bowel gas pattern since the prior study. Nasogastric tube tip at the gastric fundus with one of the sideholes at the GE junction Narrative 08/26/2017 8:43 AM EDT EXAMINATION: XR ABDOMEN 1 VIEW (GENERIC) CLINICAL HISTORY: eval position of NGT and for bowel dilation TECHNIQUE: Abdomen 2 views COMPARISON: 08/24/2017 FINDINGS: There is residual contrast from the prior CT scan of 08/24/2017 in the left colon distal transverse colon splenic flexure and proximal descending colon region and also overlying the pelvis within the ostomy bag. The large bowel is not distended and the small bowel gas pattern has normalized since the prior study, there is a nasogastric tube with the tip in the gastric fundus but one of the sideholes is probably still in the distal esophagus to the GE junction. Lung bases are clear. No organomegaly is seen. Small therapy seeds project over the pubic symphysis at the prostate. Procedure Note Matt Bolton MD - 08/26/2017 EXAMINATION: XR ABDOMEN 1 VIEW (GENERIC) CLINICAL HISTORY: eval position of NGT and for bowel dilation TECHNIQUE: Abdomen 2 views COMPARISON: 08/24/2017 FINDINGS: There is residual contrast from the prior CT scan of 08/24/2017 in the leftcolon distal transverse colon splenic flexure and proximal descending colonregion and also overlying the pelvis within the ostomy bag. The large bowel is not distended and the small bowel gas pattern has normalized since the priorstudy, there is a nasogastric tube with the tip in the gastric fundus but one ofthe sideholes is probably still in the distal esophagus to the GE junction.Lung bases are clear. No organomegaly is seen. Small therapy seeds project overthe pubic symphysis at the prostate. IMPRESSION Residual contrast in the left side of the colon and at the ostomy. Normalized small bowel gas pattern since the prior study. Nasogastric tubetip at the gastric fundus with one of the sideholes at the GE junction Theo Washington MD IMG DX ORDERABLES * POCT Glucose (08/26/2017 7:13 AM EDT) [facility] Glucose, POC 127 65 - 199 mg/dL [facility] Comment: Supplemental ranges: <140 mg/dL before meals <180 mg/dL all other times of the day Blood specimen (specimen) 08/26/2017 7:13 AM EDT 08/26/2017 7:13 AM EDT Theo Washington MD POINT OF CARE TEST ORDERABLES [facility] [place] [address] * (ABNORMAL) Differential, Automated (08/26/2017 5:21 AM EDT) [facility] Neutrophil % 79.5 % [facility] Neutrophil Absolute 8.61(H) 1.70 - 6.10 x10(3)/mc L [facility] Lymph % 10.6 % [facility] Lymphocytes Abs 1.2 0.9 - 3.2 x10(3)/mc L [facility] Monocyte % 8.1 % [facility] Monocyte Abs 0.9 0.3 - 0.9 x10(3)/mc L [facility] Eos % 0.7 % [facility] Eosinophils Abs 0.1 0.0 - 0.4 x10(3)/mc L [facility] Basophil % 0.5 % [facility] Baso Absolute 0.0 0.0 - 0.1 x10(3)/mc L [facility] Immature Gran % 0.60 % [facility] Comment: Immature granulocytes(IG's)percentage and absolute count will include metamyelocytes, myelocytes, and promyelocytes. Blood smears from CBCs yielding IG's will be scanned manually for concordance. If this scan disagrees with the automated IG or if promyelocytes are noted, a manual differential will be performed. Immature Gran Absolute 0.06(H) 0.00 - 0.04 x10(3)/mc L [facility] Blood specimen (specimen) 08/26/2017 5:21 AM EDT 08/26/2017 6:35 AM EDT Narrative Resulting Agency Comment Spec In Lab Swetha Price MD HEMATOLOGY ORDERABLE S Performing Organization Address City/State/[facility] Co de Phone Number [facility] [place] [address] * (ABNORMAL) Hemogram (08/26/2017 5:21 AM EDT) White Blood Cell 10.8(H) 4.0 - 9.5 x10(3)/mc L [facility] Red Blood Cell 4.62 4.58 - 5.54 x10(6)/mc L [facility] Hemoglobin 14.2 13.7 - 16.5 gm/dL [facility] Hematocrit 40.1(L) 40.5 - 48.5 % [facility] Mean Cell Volume 86.8 82.9 - 93.1 fL [facility] Mean Cell Hemoglobin 30.7 27.5 - 32.1 pg [facility] Mean Cell Hemoglobin Concentration 35.4 32.0 - 35.7 gm/dL [facility] Platelet 376(H) 145 - 357 x10(3)/mc L [facility] RDW Standard Deviation 38.6 36.0 - 45.0 fL [facility] RDW coefficient of variation 12.2 11.4 - 13.8 % [facility] Mean Platelet Volume 10.4 7.6 - 12.9 fL [facility] NRBC% auto 0.0 % [facility] NRBC Absolute 0.000 0.000 - 0.000 x10(3)/mc L [facility] Blood specimen (specimen) 08/26/2017 5:21 AM EDT 08/26/2017 6:35 AM EDT Narrative Resulting Agency Comment Spec In Lab Swetha Price MD HEMATOLOGY ORDERABLE S Performing Organization Address City/State/[facility] Co de Phone Number [facility] [place] [address] * (ABNORMAL) Creatinine (08/26/2017 5:21 AM EDT) Creatinine 0.67(L) 0.80 - 1.50 mg/dL [facility] Comment: Please note that the pediatric reference intervals supplied above were not validated at [facility]. Results from pediatric patients should be interpreted in conjunction to the patient's age, height and muscle mass. Est Glomerular Filtration Rate >60 >=60 [facility] Comment: This estimated GFR (eGFR) [...] the following links into your internet browser. [email or web address] Blood specimen (specimen) 08/26/2017 5:21 AM EDT 08/26/2017 6:35 AM EDT Narrative Resulting Agency Comment Spec In Lab Swetha Price MD CHEMISTRY ORDERABLES [facility] [place] [address] * (ABNORMAL) BUN (08/26/2017 5:21 AM EDT) Blood Urea Nitrogen 9(L) 10 - 20 mg/dL [facility] Blood specimen (specimen) 08/26/2017 5:21 AM EDT 08/26/2017 6:35 AM EDT Narrative Resulting Agency Comment Spec In Lab Swetha Price MD CHEMISTRY ORDERABLES Performing Organization Address [facility]/ZIP Co de Phone Number [facility] [place] [address] * (ABNORMAL) Electrolytes panel (08/26/2017 5:21 AM EDT) [facility] Sodium 144 135 - 145 mmol/L [facility] Potassium 3.6 3.5 - 5.0 mmol/L [facility] Comment: Please note: ??Patients with WBC >100,000 may have falsely elevated Potassium levels. ??For accurate Potassium quantification in these patients send serum separator tube (gold top) for subsequent determinations. ??Contact the Clinical Chemistry Laboratory if there are any questions. Chloride 91(L) 98 - 107 mmol/L [facility] Carbon Dioxide 31 22 - 31 mmol/L [facility] Anion Gap 22(H) 5 - 15 mmol/L [facility] Blood specimen (specimen) 08/26/2017 5:21 AM EDT 08/26/2017 6:35 AM EDT Narrative Resulting Agency Comment Spec In Lab Swetha Price MD CHEMISTRY ORDERABLES Performing Organization Address City/[facility]/ZIP Co de Phone Number [facility] [place] [address] * POCT Glucose (08/26/2017 3:38 AM EDT) Glucose, POC 123 65 - 199 mg/dL [facility] Comment: Supplemental ranges: <140 mg/dL before meals <180 mg/dL all other times of the day Blood specimen (specimen) 08/26/2017 3:38 AM EDT 08/26/2017 3:38 AM EDT Theo Washington MD POINT OF CARE TEST ORDERABLES Performing Organization Address City/[facility]/ZIP Co de Phone Number [facility] [place] [address] * POCT Glucose (08/25/2017 11:42 PM EDT) Glucose, POC 120 65 - 199 mg/dL [facility] Comment: Supplemental ranges: <140 mg/dL before meals <180 mg/dL all other times of the day Blood specimen (specimen) 08/25/2017 11:42 PM EDT 08/25/2017 11:42 PM EDT Theo Washington MD POINT OF CARE TEST ORDERABLES Performing Organization Address [facility]/ZIP Co de Phone Number [facility] [place] [address] * POCT Glucose (08/25/2017 6:58 PM EDT) Glucose, POC 134 65 - 199 mg/dL [facility] Comment: Supplemental ranges: <140 mg/dL before meals <180 mg/dL all other times of the day Blood specimen (specimen) 08/25/2017 6:58 PM EDT 08/25/2017 6:58 PM EDT Theo Washington MD POINT OF CARE TEST ORDERABLES Performing Organization Address City/[facility]/ZIP Co de Phone Number [facility] [place] [address] * Potassium (08/25/2017 6:02 PM EDT) Potassium 3.8 3.5 - 5.0 mmol/L [facility] Comment: Please note: ??Patients with WBC >100,000 may have falsely elevated Potassium levels. ??For accurate Potassium quantification in these patients send serum separator tube (gold top) for subsequent determinations. ??Contact the Clinical Chemistry Laboratory if there are any questions. Blood specimen (specimen) 08/25/2017 6:02 PM EDT 08/25/2017 6:08 PM EDT Narrative Resulting Agency Comment Spec In Lab Theo Washington MD CHEMISTRY ORDERABLE S [facility] [place] [address] * POCT Glucose (08/25/2017 3:55 PM EDT) Glucose, POC 124 65 - 199 mg/dL [facility] Comment: Supplemental ranges: <140 mg/dL before meals <180 mg/dL all other times of the day Blood specimen (specimen) 08/25/2017 3:55 PM EDT 08/25/2017 3:55 PM EDT Theo Washington MD POINT OF CARE TEST ORDERABLES Performing Organization Address [facility] Co de Phone Number [facility] [place] [address] * POCT Glucose (08/25/2017 11:03 AM EDT) Glucose, POC 159 65 - 199 mg/dL [facility] Comment: Supplemental ranges: <140 mg/dL before meals <180 mg/dL all other times of the day Blood specimen (specimen) 08/25/2017 11:03 AM EDT 08/25/2017 11:03 AM EDT hTeo Washington MD POINT OF CARE TEST ORDERABLES Performing Organization Address City/[facility]/ZIP Co de Phone Number [facility] [place] [address] * POCT Glucose (08/25/2017 7:11 AM EDT) Glucose, POC 129 65 - 199 mg/dL [facility] Comment: Supplemental ranges: <140 mg/dL before meals <180 mg/dL all other times of the day Blood specimen (specimen) 08/25/2017 7:11 AM EDT 08/25/2017 7:11 AM EDT Theo Washington MD POINT OF CARE TEST ORDERABLES Performing Organization Address City/State/[facility] Co de Phone Number [facility] [place] [address] * (ABNORMAL) Differential, Automated (08/25/2017 5:02 AM EDT) [facility] Neutrophil % 81.4 % [facility] Neutrophil Absolute 9.54(H) 1.70 - 6.10 x10(3)/mc L [facility] Lymph % 9.6 % [facility] Lymphocytes Abs 1.1 0.9 - 3.2 x10(3)/mc L [facility] Monocyte % 8.0 % [facility] Monocyte Abs 0.9 0.3 - 0.9 x10(3)/mc L [facility] Eos % 0.3 % [facility] Eosinophils Abs 0.0 0.0 - 0.4 x10(3)/mc L [facility] Basophil % 0.3 % [facility] Baso Absolute 0.0 0.0 - 0.1 x10(3)/mc L [facility] Immature Gran % 0.40 % [facility] Comment: Immature granulocytes(IG's)percentage and absolute count will include metamyelocytes, myelocytes, and promyelocytes. Blood smears from CBCs yielding IG's will be scanned manually for concordance. If this scan disagrees with the automated IG or if promyelocytes are noted, a manual differential will be performed. Immature Gran Absolute 0.05(H) 0.00 - 0.04 x10(3)/mc L [facility] Blood specimen (specimen) 08/25/2017 5:02 AM EDT 08/25/2017 5:23 AM EDT Narrative Resulting Agency Comment Spec In Lab Swetha Price MD HEMATOLOGY ORDERABLE S [facility] [place] [address] * (ABNORMAL) Hemogram (08/25/2017 5:02 AM EDT) White Blood Cell 11.7(H) 4.0 - 9.5 x10(3)/[facility] Red Blood Cell 4.26(L) 4.58 - 5.54 x10(6)/[facility] Hemoglobin 13.1(L) 13.7 - 16.5 gm/dL [facility] Hematocrit 36.1(L) 40.5 - 48.5 % [facility] Mean Cell Volume 84.7 82.9 - 93.1 [facility] Mean Cell Hemoglobin 30.8 27.5 - 32.1 pg [facility] Mean Cell Hemoglobin Concentration 36.3(H) 32.0 - 35.7 gm/dL [facility] Platelet 353 145 - 357 x10(3)/[facility] RDW Standard Deviation 37.2 36.0 - 45.0 [facility] RDW coefficient of variation 12.1 11.4 - 13.8 % [facility] Mean Platelet Volume 10.0 7.6 - 12.9 [facility] NRBC% auto 0.0 % [facility] NRBC Absolute 0.000 0.000 - 0.000 x10(3)/[facility] Blood specimen (specimen) 08/25/2017 5:02 AM EDT 08/25/2017 5:23 AM EDT Narrative Resulting Agency Comment Spec In Lab Swetha Price MD HEMATOLOGY ORDERABLE S Performing Organization Address [facility] Co de Phone Number [facility] [place] [address] * (ABNORMAL) Creatinine (08/25/2017 5:02 AM EDT) Creatinine 0.64(L) 0.80 - 1.50 mg/dL [facility] Comment: Please note that the pediatric reference intervals supplied above were not validated at [facility]. Results from pediatric patients should be interpreted in conjunction to the patient's age, height and muscle mass. Est Glomerular Filtration Rate >60 >=60 [facility] Comment: This estimated GFR (eGFR) [...] the following links into your internet browser. [email or web address] Blood specimen (specimen) 08/25/2017 5:02 AM EDT 08/25/2017 5:23 AM EDT Narrative Resulting Agency Comment Spec In Lab Swetha Price MD CHEMISTRY ORDERABLES Performing Organization Address [facility] Co de Phone Number [facility] [place] [address] * BUN (08/25/2017 5:02 AM EDT) Blood Urea Nitrogen 13 10 - 20 mg/dL [facility] Blood specimen (specimen) 08/25/2017 5:02 AM EDT 08/25/2017 5:23 AM EDT Narrative Resulting Agency Comment Spec In Lab Swetha Price MD CHEMISTRY ORDERABLES Performing Organization Address [facility] Co de Phone Number [facility] [place] [address] * (ABNORMAL) Electrolytes panel (08/25/2017 5:02 AM EDT) [facility] Sodium 133(L) 135 - 145 mmol/L [facility] Potassium 3.2(L) 3.5 - 5.0 mmol/L [facility] Comment: Please note: ??Patients with WBC >100,000 may have falsely elevated Potassium levels. ??For accurate Potassium quantification in these patients send serum separator tube (gold top) for subsequent determinations. ??Contact the Clinical Chemistry Laboratory if there are any questions. Chloride 90(L) 98 - 107 mmol/L [facility] Carbon Dioxide 29 22 - 31 mmol/L [facility] Anion Gap 14 5 - 15 mmol/L [facility] Blood specimen (specimen) 08/25/2017 5:02 AM EDT 08/25/2017 5:23 AM EDT Narrative Resulting Agency Comment Spec In Lab Swetha Price MD CHEMISTRY ORDERABLES [facility] [place] [address] * (ABNORMAL) Prealbumin (08/25/2017 5:02 AM EDT) [facility] Prealbumin 17(L) 20 - 40 mg/dL [facility] Comment: Prealbumin levels are generally lower in the pediatric population; adult concentrations are usually attained near puberty. Blood specimen (specimen) 08/25/2017 5:02 AM EDT 08/25/2017 5:23 AM EDT Narrative Resulting Agency Comment Spec In Lab Swetha Price MD CHEMISTRY ORDERABLES [facility] [place] [address] * POCT Glucose (08/25/2017 3:53 AM EDT) [facility] Glucose, POC 130 65 - 199 mg/dL [facility] Comment: Supplemental ranges: <140 mg/dL before meals <180 mg/dL all other times of the day Blood specimen (specimen) 08/25/2017 3:53 AM EDT 08/25/2017 3:53 AM EDT Theo Washington MD POINT OF CARE TEST ORDERABLES Performing Organization Address City/[facility]/ZIP Co de Phone Number [facility] [place] [address] * POCT Glucose (08/24/2017 11:36 PM EDT) Glucose, POC 94 65 - 199 mg/dL [facility] Comment: Supplemental ranges: <140 mg/dL before meals <180 mg/dL all other times of the day Blood specimen (specimen) 08/24/2017 11:36 PM EDT 08/24/2017 11:36 PM EDT Theo Washington MD POINT OF CARE TEST ORDERABLES Performing Organization Address [facility] Co de Phone Number [facility] [place] [address] * POCT Glucose (08/24/2017 7:18 PM EDT) Glucose, POC 123 65 - 199 mg/dL [facility] Comment: Supplemental ranges: <140 mg/dL before meals <180 mg/dL all other times of the day Blood specimen (specimen) 08/24/2017 7:18 PM EDT 08/24/2017 7:18 PM EDT Theo Washington MD POINT OF CARE TEST ORDERABLES Performing Organization Address City/[facility] Co de Phone Number [facility] [place] [address] * XR Abdomen 1 view (Generic) (08/24/2017 6:20 PM EDT) Anatomical Region Laterality Modality Abdomen N/A Digital Radiogra phy Impressions 08/24/2017 7:35 PM EDT Tip of nasogastric tube is projected at the gastroesophageal junction should be advanced. Related loops of small bowel. Narrative 08/24/2017 7:35 PM EDT EXAMINATION: XR ABDOMEN 1 VIEW (GENERIC) CLINICAL HISTORY: NGT placement confirmation. Please shoot so GEJ is in the picture, idealy with lower lungs. TECHNIQUE: AP abdomen COMPARISON: August 24, 2017 at 1602 hours FINDINGS: Tip of nasogastric tube is projected at the gastroesophageal junction and should be advanced. Visualized loops of small bowel are dilated. ??Although both sides of the bowel wall of midline small bowel loops are visualized, no free air was evident at CT scan performed earlier same day. Procedure Note Swetha Bell MD - 08/24/2017 EXAMINATION: XR ABDOMEN 1 VIEW (GENERIC) CLINICAL HISTORY: NGT placement confirmation. Please shoot so GEJ is inthe picture, idealy with lower lungs. TECHNIQUE: AP abdomen COMPARISON: August 24, 2017 at 1602 hours FINDINGS: Tip of nasogastric tube is projected at the gastroesophageal junction andshould be advanced. Visualized loops of small bowel are dilated. Although bothsides of the bowel wall of midline small bowel loops are visualized, no free airwas evident at CT scan performed earlier same day. IMPRESSION Tip of nasogastric tube is projected at the gastroesophageal junctionshould be advanced. Related loops of small bowel. Theo Washington MD IMG DX ORDERABLES * POCT Glucose (08/24/2017 4:50 PM EDT) Glucose, POC 130 65 - 199 mg/dL [facility] Comment: Supplemental ranges: <140 mg/dL before meals <180 mg/dL all other times of the day Blood specimen (specimen) 08/24/2017 4:50 PM EDT 08/24/2017 4:50 PM EDT Theo Washington MD POINT OF CARE TEST ORDERABLES [facility] [place] [address] * XR Abdomen 1 view (Generic) (08/24/2017 4:06 PM EDT) Anatomical Region Laterality Modality Abdomen N/A Digital Radiogra phy Impressions 08/24/2017 4:27 PM EDT NG tube was not visualized. These findings were discussed with Heath Best MD at 4:25 PM on 08/24/2017, who expressed understanding of the same. I have personally reviewed the image(s) and the residents interpretation and agree with the findings, Barbara Liriano at 08/24/2017 4:27 PM Narrative 08/24/2017 4:27 PM EDT EXAMINATION: XR ABDOMEN 1 VIEW (GENERIC) CLINICAL HISTORY: eval for NGT placement TECHNIQUE: Semiupright AP abdominal radiograph. COMPARISON: CT abdomen and pelvis 08/24/2017. FINDINGS: No NG tube is visualized. There is air in the stomach and air and contrast is seen in the transverse colon. Entire abdomen is not included on the film. Right costophrenic angle is excluded from view, however the lung bases otherwise appear clear. Mild degenerative changes of the thoracic and lumbar spine. No abnormal calcifications seen. Procedure Note Barbara Liriano MD - 08/24/2017 EXAMINATION: XR ABDOMEN 1 VIEW (GENERIC) CLINICAL HISTORY: eval for NGT placement TECHNIQUE: Semiupright AP abdominal radiograph. COMPARISON: CT abdomen and pelvis 08/24/2017. FINDINGS: No NG tube is visualized. There is air in the stomach and air and contrastis seen in the transverse colon. Entire abdomen is not included on the film.Right costophrenic angle is excluded from view, however the lung basesotherwise appear clear. Mild degenerative changes of the thoracic and lumbar spine.No abnormal calcifications seen. IMPRESSION NG tube was not visualized. These findings were discussed with Heath Best MD at 4:25 PM on08/24/2017, who expressed understanding of the same. I have personally reviewed the image(s) and the residents interpretationand agree with the findings, Barbara Liriano at 08/24/2017 4:27 PM Swetha Price MD IMG DX ORDERABLES * Lactate, whole blood, send to lab (08/24/2017 2:05 PM EDT) Lactate WB 1.1 0.5 - 2.2 mmol/L [facility] Blood specimen (specimen) 08/24/2017 2:05 PM EDT 08/24/2017 2:10 PM EDT Narrative Resulting Agency Comment Spec In Lab Swetha Price MD CHEMISTRY ORDERABLES Performing Organization Address City/State/[facility] Co de Phone Number [facility] [place] [address] * CT Abdomen & Pelvis w Contrast (08/24/2017 12:15 PM EDT) Anatomical Region Laterality Modality Abdomen, Pelvis Computed Tomogra phy Impressions 08/24/2017 12:44 PM EDT 1. Complex ventral hernias are unchanged in [...] density and fluid likely reflecting posttreatment changes. Narrative 08/24/2017 12:44 PM EDT EXAMINATION: ??CT ABDOMEN AND PELVIS W CONTRAST CLINICAL HISTORY: ??Patient with partial colectomy and ostomy in place. Now with decreased ostomy output, lower abdominal pain, nausea and vomiting concerning for extraction TECHNIQUE: Helical CT of the abdomen and pelvis was performed following the intravenous administration of contrast. 120 cc of Omnipaque 350 was given. Oral contrast was administered. COMPARISON: ??December 30, 2016. FINDINGS: Lower chest: No consolidation or pleural effusions. Liver: Normal size and attenuation without lesions. Bile ducts: Nondilated. Gallbladder: No calcified gallstones. Normal caliber wall. Pancreas: Normal attenuation without ductal dilatation. Spleen: Normal. Adrenals: Normal. Kidneys: Normal. ? Vasculature: No aneurysm. Lymph Nodes: No enlarged [...] there is no evidence of complete obstruction. Peritoneum and mesentery: There is unchanged presacral soft tissue density with a small amount of fluid centrally. Abdominal wall: Bilateral complex wide necked anterior abdominal wall ventral hernias are unchanged. Urinary Bladder: No asymmetric wall thickening. Osseous structures: No suspicious lesions. Procedure Note Tio Sims MD - 08/24/2017 EXAMINATION: CT ABDOMEN AND PELVIS W CONTRAST CLINICAL HISTORY: Patient with partial colectomy and ostomy in place. Nowwith decreased ostomy output, lower abdominal pain, nausea and vomitingconcerning for extraction TECHNIQUE: Helical CT of the abdomen and pelvis was performed followingthe intravenous administration of contrast. 120 cc of Omnipaque 350 was given.Oral contrast was administered. COMPARISON: December 30, 2016. FINDINGS: Lower chest: No consolidation or pleural effusions. Liver: Normal size and attenuation without lesions. Bile ducts: Nondilated. Gallbladder: No calcified gallstones. Normal caliber wall. Pancreas: Normal attenuation without ductal dilatation. Spleen: Normal. Adrenals: Normal. Kidneys: Normal. Vasculature: No aneurysm. Lymph Nodes: No enlarged lymph nodes. Bowel: Abdominopelvic resection is again noted. An end colostomy is seenin the left lower quadrant. Bilateral complex wide necked anterior abdominalwall ventral/parastomal hernias are again noted. There appears to be adhesionof the bowel to the abdominal wall within the hernias. There is distention ofseveral loops of small bowel in between decompressed adhesed loops of small bowel.The most distended bowel measures up to 4.8 cm. Oral contrast has however pastinto the cecum and there is no evidence of complete obstruction. Peritoneum and mesentery: There is unchanged presacral soft tissue densitywith a small amount of fluid centrally. Abdominal wall: Bilateral complex wide necked anterior abdominal wallventral hernias are unchanged. Urinary Bladder: No asymmetric wall thickening. Osseous structures: No suspicious lesions. IMPRESSION 1. Complex ventral hernias are unchanged in configuration. There is likelysome degree of partial small bowel obstruction related to adhesions in thehernia sacs. There is no evidence of complete bowel obstruction as contrast haspassed into the colon. The stomach and proximal small bowel are also fairly decompressed. 2. Stable appearance of pre-sacral soft tissue density and fluid likely reflecting posttreatment changes. Swetha Price MD IMG CT ORDERABLES * (ABNORMAL) Differential, Automated (08/24/2017 8:40 AM EDT) Neutrophil % 80.1 % [facility] Neutrophil Absolute 12.30(H) 1.70 - 6.10 x10(3)/mc L [facility] Lymph % 10.1 % [facility] Lymphocytes Abs 1.6 0.9 - 3.2 x10(3)/[facility] Monocyte % 8.9 % [facility] Monocyte Abs 1.4(H) 0.3 - 0.9 x10(3)/[facility] Eos % 0.2 % [facility] Eosinophils Abs 0.0 0.0 - 0.4 x10(3)/[facility] Basophil % 0.2 % [facility] Baso Absolute 0.0 0.0 - 0.1 x10(3)/[facility] Immature Gran % 0.50 % [facility] Comment: Immature granulocytes(IG's)percentage and absolute count will include metamyelocytes, myelocytes, and promyelocytes. Blood smears from CBCs yielding IG's will be scanned manually for concordance. If this scan disagrees with the automated IG or if promyelocytes are noted, a manual differential will be performed. Immature Gran Absolute 0.07(H) 0.00 - 0.04 x10(3)/ L [facility] Blood specimen (specimen) 08/24/2017 8:40 AM EDT 08/24/2017 8:51 AM EDT Narrative Resulting Agency Comment Spec In Lab Sewtha Price MD HEMATOLOGY ORDERABLE S [facility] [place] [address] * (ABNORMAL) Hemogram (08/24/2017 8:40 AM EDT) [facility] White Blood Cell 15.4(H) 4.0 - 9.5 x10(3)/ L [facility] Red Blood Cell 4.55(L) 4.58 - 5.54 x10(6)/[facility] Hemoglobin 14.0 13.7 - 16.5 gm/dL [facility] Hematocrit 38.1(L) 40.5 - 48.5 % [facility] Mean Cell Volume 83.7 82.9 - 93.1 [facility] Mean Cell Hemoglobin 30.8 27.5 - 32.1 pg [facility] Mean Cell Hemoglobin Concentration 36.7(H) 32.0 - 35.7 gm/dL [facility] Platelet 415(H) 145 - 357 x10(3)/ L [facility] RDW Standard Deviation 36.1 36.0 - 45.0 [facility] RDW coefficient of variation 11.9 11.4 - 13.8 % [facility] Mean Platelet Volume 10.1 7.6 - 12.9 [facility] NRBC% auto 0.0 % [facility] NRBC Absolute 0.000 0.000 - 0.000 x10(3)/[facility] Blood specimen (specimen) 08/24/2017 8:40 AM EDT 08/24/2017 8:51 AM EDT Narrative Resulting Agency Comment Spec In Lab Swetha Price MD HEMATOLOGY ORDERABLE S [facility] [place] [address] * (ABNORMAL) Lipase (08/24/2017 8:40 AM EDT) [facility] Lipase 96(H) 0 - 60 unit/L [facility] Blood specimen (specimen) 08/24/2017 8:40 AM EDT 08/24/2017 8:51 AM EDT Narrative Resulting Agency Comment Spec In Lab Swetha Price MD CHEMISTRY ORDERABLES Performing Organization Address City/[facility] Co de Phone Number [facility] [place] [address] * Hepatic Function Panel (08/24/2017 8:40 AM EDT) [facility] Protein, Total 6.8 6.1 - 8.0 gm/dL [facility] Albumin 3.8 3.2 - 5.2 gm/dL [facility] Aspartate Aminotransferase Not Perf 0 - 39 unit/L [facility] Comment: Unable to quantitate due to sample hemolysis. ??Sample redraw suggested. Called by: noé, Read back by: gurdeep tejeda, Date/Time:08/24/17 09:37. Alanine Aminotransferase 31 0 - 55 unit/L [facility] Alkaline Phosphatase 54 40 - 120 unit/L [facility] Bilirubin, Total 0.7 0.2 - 1.3 mg/dL [facility] Bilirubin, Direct 0.1 0.0 - 0.3 mg/dL [facility] Blood specimen (specimen) 08/24/2017 8:40 AM EDT 08/24/2017 8:51 AM EDT Narrative Resulting Agency Comment Spec In Lab Swetha Price MD CHEMISTRY ORDERABLES Performing Organization Address [facility] Co de Phone Number [facility] [place] [address] * (ABNORMAL) Basic Metabolic Panel (non-fasting) (08/24/2017 8:40 AM EDT) [facility] Glucose 198 65 - 199 mg/dL [facility] Comment:Diabetes: >=200 mg/d L plus symptoms Blood Urea Nitrogen 32(H) 10 - 20 mg/dL [facility] Creatinine 0.91 0.80 - 1.50 mg/dL [facility] Comment: Please note that the pediatric reference intervals supplied above were not validated at [facility]. Results from pediatric patients should be interpreted in conjunction to the patient's age, height and muscle mass. Sodium 127(L) 135 - 145 mmol/L [facility] Potassium 3.7 3.5 - 5.0 mmol/L [facility] Comment: Please note: ??Patients with WBC >100,000 may have falsely elevated Potassium levels. ??For accurate Potassium quantification in these patients send serum separator tube (gold top) for subsequent determinations. ??Contact the Clinical Chemistry Laboratory if there are any questions. Chloride 83(L) 98 - 107 mmol/L [facility] Carbon Dioxide 29 22 - 31 mmol/L [facility] Anion Gap 15 5 - 15 mmol/L [facility] Calcium 8.8 8.5 - 10.5 mg/dL [facility] Est Glomerular Filtration Rate >60 >=60 [facility] Comment: This estimated GFR (eGFR) [...] the following links into your internet browser. [email or web address] Blood specimen (specimen) 08/24/2017 8:40 AM EDT 08/24/2017 8:51 AM EDT Narrative Resulting Agency Comment Spec In Lab Swetha Price MD CHEMISTRY ORDERABLES [facility] [place] [address] documented in this encounter Visit Diagnoses Diagnosis Partial small bowel obstruction Unspecified intestinal obstruction Hypertension, unspecified type Partial small bowel obstruction Unspecified intestinal obstruction documented in this encounter Admitting Diagnoses Diagnosis Partial small bowel obstruction Unspecified intestinal obstruction documented in this encounter Administered Medications Inactive Administered Medications - up to 3 most recent administrations Medication Order MAR Action Action Date Dose Rate Site atorvastatin (LIPITOR) tablet 40 mg 40 mg, Oral, EVERY EVENING, First dose on 08/30/17 at 1700, Until Discontinued, Routine Given 08/31/2017 4:25 PM EDT 40 mg Given 08/30/2017 4:18 PM EDT 40 mg dextrose 50% IV syringe 25-50 mL 25-50 mL (12.5-25 g), Intravenous, EVERY 1 HOUR PRN, Starting on 08/29/17 at 1420, Until 09/01/17 at 1341, Low blood sugar, For BG 50-70: 120 [...] Oral, 2 TIMES DAILY, First dose on 08/30/17 at 0930, Until Discontinued, Routine Given 09/01/2017 9:11 AM EDT 100 mg Given 08/31/2017 8:03 PM EDT 100 mg Given 08/31/2017 10:25 AM EDT 100 mg enoxaparin (LOVENOX) injection 40 mg 40 mg, Subcutaneous, NIGHTLY, First dose on 08/24/17 at 2100, Until Discontinued, Routine Given 08/31/2017 8:03 PM EDT 40 mg Given 08/30/2017 8:54 PM EDT 40 mg Given 08/29/2017 8:47 PM EDT 40 mg glucagon (human recombinant) injection SolR 1 mg 1 mg, Intramuscular, EVERY 1 HOUR PRN, Starting on 08/29/17 at 1420, Until Thu09/01/17 at 1341, Low blood sugar, For BG 50-70: 120 [...] the active insulin., Routine HYDROmorphone (DILAUDID) injection 0.2 mg 0.2 mg, Intravenous, EVERY 2 HOURS PRN, Starting on Thu08/24/17 at 1542, Until Thu08/31/17 at 1051, Pain, May repeat once in 30 minutes if pain not relieved., Routine Given 08/25/2017 9:21 AM EDT 0.2 m g Given 08/25/2017 5:17 AM EDT 0.2 mg Given 08/24/2017 11:57 PM EDT 0.2 mg HYDROmorphone (DILAUDID) injection 0.4 mg 0.4 mg, Intravenous, ONCE, 1 dose, On Thu08/24/17 at 1700, Routine Given 08/24/2017 5:02 PM EDT 0.4 mg insulin lispro (humaLOG) VIAL injection 1-4 Units 1-4 Units, Subcutaneous, EVERY 4 HOURS SCHEDULED, First dose on Thu08/24/17 at 1700, Until Discontinued, CORRECTION BOLUS Sensitive to insulin [...] specifically told to do so., Routine Given 08/29/2017 11:42 AM EDT 2 Units Given 08/29/2017 9:04 AM EDT 3 Units Ri ght Arm Given 08/29/2017 5:00 AM EDT 3 Units insulin lispro (humaLOG) VIAL injection 2-8 Units 2-8 Units, Subcutaneous, 3 TIMES DAILY BEFORE MEALS, First dose on 08/29/17 at 1630, Until Discontinued, CORRECTION BOLUS Moderate BG 140 - 160 Give 2 units BG 161 - 200 Give 4 units BG 201 - 240 Give 6 units BG greater than 240, give 8 units and recheck BG in 2 hours.If BG less than 240 after two hours, give no insulin and resume prior schedule. If BG remains greater than 240, repeat 8 units (no more than three times) & call for new basal insulin orders. DO NOT hold if NPO, unless specifically told to do so., Routine Given 08/30/2017 4:17 PM EDT 6 Units Given 08/30/2017 12:16 PM EDT 6 Units Given 08/30/2017 8:14 AM EDT 8 Units insulin lispro (humaLOG) VIAL injection 2-8 Units 2-8 Units, Subcutaneous, 4 TIMES DAILY BEFORE MEALS & NIGHTLY, First dose (after last modification) on 08/30/17 at 2215, Until Discontinued, CORRECTION BOLUS Moderate BG 140 - 160 Give 2 units BG 161 - 200 Give 4 units BG 201 - 240 Give 6 units BG greater than 240, give 8 units and recheck BG in 2 hours.If BG less than 240 after two hours, give no insulin and resume prior schedule. If BG remains greater than 240, repeat 8 units (no more than three times) & call for new basal insulin orders. DO NOT hold if NPO, unless specifically told to do so., Routine Given 09/01/2017 7:27 AM EDT 6 Units Given 08/31/2017 10:11 PM EDT 8 Units Given 08/31/2017 8:06 PM EDT 8 Units iohexol (OMNIPAQUE) 350 mg/mL solution 0-200 mL 0-200 mL, Intravenous, ONCE PRN, 1 dose, Starting on Thu08/24/17 at 1205, Until Thu08/24/17 at 1215, Per Protocol, Warning Vesicant/Irritant Medication , Radiology Contrast, Routine Given 08/24/2017 12:15 PM EDT 120 mLs iohexol (OMNIPAQUE) radiology oral prep (50 mL of oral contrast) 240 mL, Oral, ONCE, 1 dose, On Thu08/24/17 at 0916, 8 ounce cup = 240 mL of contrast 2 hours before scan as tolerated. The patient should not eat food or drink any other liquids during the entire period in which they are drinking the contrast. Mix 1 bottle (50 mL) of Omnipaque 350 with 1 liter (1,000 mL) non-carbonated beverage (preferably water). Close cover and shake vigorously and then refrigerate, if desired. Dispose of any excess preparation in a sink. Properly dispose of container., Routine Given 08/24/2017 9:30 AM EDT 240 mLs iohexol (OMNIPAQUE) radiology oral prep (50 mL of oral contrast) 240 mL, Oral, ONCE, 1 dose, On Thu08/24/17 at 1030, 8 ounce cup = 240 mL of contrast 1 hour before scan as tolerated. The patient should not eat food or drink any other liquids during the entire period in which they are drinking the contrast. Mix 1 bottle (50 mL) of Omnipaque 350 with 1 liter (1,000 mL) non-carbonated beverage (preferably water). Close cover and shake vigorously and then refrigerate, if desired. Dispose of any excess preparation in a sink. Properly dispose of container., Routine Given 08/24/2017 10:30 AM EDT 240 mLs iohexol (OMNIPAQUE) radiology oral prep (50 mL of oral contrast) 240 mL, Oral, ONCE, 1 dose, On Thu08/24/17 at 1100, 8 ounce cup = 240 mL of contrast 30 minutes before scan as tolerated. The patient should not eat food or drink any other liquids during the entire period in which they are drinking the contrast. Mix 1 bottle (50 mL) of Omnipaque 350 with 1 liter (1,000 mL) non-carbonated beverage (preferably water). Close cover and shake vigorously and then refrigerate, if desired. Dispose of any excess preparation in a sink. Properly dispose of container., Routine Given 08/24/2017 11:00 AM EDT 240 mLs iohexol (OMNIPAQUE) radiology oral prep (50 mL of oral contrast) 240 mL, Oral, ONCE, 1 dose, On Thu08/24/17 at 1115, 8 ounce cup = 240 mL of contrast 15 minutes before scan as tolerated. The patient should not eat food or drink any other liquids during the entire period in which they are drinking the contrast. Mix 1 bottle (50 mL) of Omnipaque 350 with 1 liter (1,000 mL) non-carbonated beverage (preferably water). Close cover and shake vigorously and then refrigerate, if desired. Dispose of any excess preparation in a sink. Properly dispose of container., Routine Given 08/24/2017 11:15 AM EDT 240 mLs lactated Ringers 1,000 mL IV bolus at 1,000 mL/hr, Intravenous, ONCE, 1 dose, On Thu08/26/17 at 0615 Given 08/26/2017 6:00 AM EDT 1000 mL/hr lactated Ringers 1,000 mL IV bolus Intravenous, ONCE, 1 dose, On Thu08/26/17 at 2030 Given 08/26/2017 9:24 PM EDT lactated Ringers 1,000 mL IV bolus Intravenous, ONCE, 1 dose, On Radha 08/27/17 at 0615 Given 08/27/2017 6:15 AM EDT lactated Ringers infusion 50 mL/hr, Intravenous, CONTINUOUS, Starting on Thu08/26/17 at 0615, Until 08/30/17 at 0915 New Bag 08/29/2017 9:57 AM EDT 50 mL/hr 50 mL/hr New Bag 08/28/2017 3:34 PM EDT 50 mL/hr 50 mL/hr Rate/Dose Change 08/27/2017 5:49 PM EDT 50 mL/hr 50 mL/h r lidocaine (URO-JET) 2 % gel 10 mL 10 mL, INTRA-URETHRAL, ONCE, 1 dose, On Thu08/24/17 at 1700, Routine Given 08/24/2017 5:05 PM EDT 10 mLs lisinopril (PRINIVIL;ZESTRIL) tablet 10 mg 10 mg, Oral, DAILY, First dose on 08/30/17 at 0930, Until Discontinued, Routine Given 09/01/2017 9:12 AM EDT 10 mg Given 08/31/2017 10:26 AM EDT 10 mg Given 08/30/2017 10:38 AM EDT 10 mg nitrofurantoin (macrocrystal-monohydrate) (MACROBID) capsule 100 mg 100 mg, Oral, 2 TIMES DAILY, 6 doses, First dose on Thu08/28/17 at 0900, Last dose on Thu08/30/17 at 2100, Routine, Indication for (Active or Suspected): Urinary Tract/Pyelonephritis Given 08/30/2017 8:55 PM EDT 100 mg Given 08/30/2017 8:14 AM EDT 100 mg Given 08/29/2017 8:47 PM EDT 100 mg ondansetron (ZOFRAN) injection 4 mg 4 mg, Intravenous, ONCE, 1 dose, On Thu08/24/17 at 1349, STAT Given 08/24/2017 1:49 PM EDT 4 mg ondansetron (ZOFRAN) injection 4 mg 4 mg, Intravenous, EVERY 8 HOURS PRN, Starting on Thu08/24/17 at 1457, Until Thu09/01/17 at 1341, Nausea, May repeat times one in 30 minutes if ineffective. If multiple antiemetics are ordered, use ondanstron first ondansetron (ZOFRAN) tablet 4 mg 4 mg, Oral, EVERY 8 HOURS PRN, Starting on Thu08/24/17 at 1457, Until Thu09/01/17 at 1341, Nausea, Vomiting, If multiple antiemetics are ordered, use ondansetron first. PO Preferred. If patient unable to take PO, may give IV if ordered. May repeat times one in 45 minutes if ineffective., Routine pantoprazole (PROTONIX) injection 40 mg 40 mg, Intravenous, DAILY, First dose on Radha 08/27/17 at 0900, Until Discontinued Given 08/31/2017 10:26 AM EDT 40 mg Given 08/30/2017 8:14 AM EDT 40 mg Given 08/29/2017 9:00 AM EDT 40 mg phenol 1.4% (CHLORASEPTIC) spray 4 spray 4 spray, Oral, EVERY 2 HOURS PRN, Starting on Thu08/25/17 at 0942, Until Thu09/01/17 at 1341, Irritation, Routine Given 08/25/2017 6:30 PM EDT 4 sprays Given 08/25/2017 4:31 PM EDT 4 sprays Given 08/25/2017 12:54 PM EDT 4 sprays potassium chloride 10 mEq in 100 mL 10 mEq, Intravenous, EVERY 2 HOURS, 8 doses, First dose on Thu08/25/17 at 0845, Last dose on Thu08/25/17 at 2245, Administer over 60 Minutes, -Use only for pateint who is NPO, lacks enteral access, or potassium level less than 2.8 mMol/L -Doses in excess of 40 mEq potassium require re-checking STAT serum potassium level 1.5 hours after completion of last dose and prior to administration of additional doses. Administer each 10 mEq/100 mL dose over 60 minutes. New Bag 08/26/2017 12:07 AM EDT 10 m Eq 100 mL/hr New Bag 08/25/2017 9:08 PM EDT 10 mEq 100 mL/hr New Bag 08/25/2017 6:01 PM EDT 10 mEq 100 mL/hr potassium chloride 10 mEq in 100 mL 10 mEq, Intravenous, EVERY 2 HOURS, 8 doses, First dose on Thu08/27/17 at 1100, Last dose on Thu08/28/17 at 0100, Administer over 60 Minutes, -Use only for pateint who is NPO, lacks enteral access, or potassium level less than 2.8 mMol/L -Doses in excess of 40 mEq potassium require re-checking STAT serum potassium level 1.5 hours after completion of last dose and prior to administration of additional doses. Administer each 10 mEq/100 mL dose over 60 minutes. New Bag 08/28/2017 1:15 AM EDT 10 mE q 100 mL/hr New Bag 08/27/2017 11:04 PM EDT 10 mEq 100 mL/hr New Bag 08/27/2017 9:02 PM EDT 10 mEq 100 mL/hr sodium chloride 0.9 % flush 5 mL 5 mL, Intravenous, 2 TIMES DAILY, First dose on Thu08/24/17 at 1459, Until Discontinued, Routine Given 08/31/2017 10:10 PM EDT 5 mLs Given 08/31/2017 10:36 AM EDT 5 mLs Given 08/30/2017 8:14 AM EDT 5 mLs sodium chloride 0.9% 1,000 mL IV bolus at 4,000 mL/hr, Intravenous, ONCE, 1 dose, On Thu08/24/17 at 0830 Given 08/24/2017 8:48 AM EDT 4000 mL/hr sodium chloride 0.9% 1,000 mL IV bolus at 4,000 mL/hr, Intravenous, ONCE, 1 dose, On Thu08/24/17 at 1324 Given 08/24/2017 1:49 PM EDT 4000 mL/hr sodium chloride 0.9% infusion 1,000 mL, at 100 mL/hr, Intravenous, CONTINUOUS, Starting on Thu08/24/17 at 1459, Until Thu08/26/17 at 0555 New Bag 08/25/2017 5:16 PM EDT 1,000 mLs 100 mL/hr New Bag 08/25/2017 9:32 AM EDT 1,000 mLs 100 mL/hr New Bag 08/24/2017 11:50 PM EDT 1,000 mLs 100 mL/hr TPN Adult Peripheral, Intravenous, at 100 mL/hr, CONTINUOUS, Starting on Thu08/27/17 at 1800, Until Thu08/28/17 at 1759, Administer over 24 Hours New Bag 08/27/2017 5:50 PM EDT 100 mL /hr TPN Adult Central, Intravenous, at 100 mL/hr, CONTINUOUS, Starting on Thu08/28/17 at 1800, Until Thu08/31/17 at 1054, Administer over 24 Hours New Bag 08/30/2017 5:38 PM EDT 100 mL /hr New Bag 08/29/2017 5:38 PM EDT 100 mL/hr New Bag 08/28/2017 5:56 PM EDT 100 mL/hr documented in this encounter Active and Recently Administered Medications Times are shown in EDT. Scheduled Medication Order 08/30/2017 08/31/2017 09/01/2017 atorvastatin (LIPITOR) tablet 40 mg 40 mg, Oral, EVERY EVENING, First dose on 08/30/17 at 1700, Until Discontinued, Routine 1618 (Given - Provider: Shyla A Syl, RN) 1625 (Given - Provider: Ty Valenzuela, GET) docusate sodium (COLACE) capsule 100 mg 100 mg, Oral, 2 TIMES DAILY, First dose on 08/30/17 at 0930, Until Discontinued, Routine 1038 (Given - Provider: Shyla Streeter RN)2054 (Given - Provider: Junie Arnold, GET) 1025 (Given - Provider: Ty Valenzuela, RN)2002 (Given - Provider: Lora Tejada, RN) 0911 (Given - Provider: Ty Valenzuela RN) enoxaparin (LOVENOX) injection 40 mg 40 mg, Subcutaneous, NIGHTLY, First dose on 08/24/17 at 2100, Until Discontinued, Routine 2053 (Given - Provider: Junie Arnold, GET) 2002 (Given - Provider: Lora Tejada, GET) insulin lispro (humaLOG) VIAL injection 2-8 Units (CANCELED) 2-8 Units, Subcutaneous, 3 TIMES DAILY BEFORE MEALS, First dose on 08/29/17 at 1630, Until Discontinued, CORRECTION BOLUS Moderate BG 140 - 160 Give 2 units BG 161 - 200 Give 4 units BG 201 - 240 Give 6 units BG greater than 240, give 8 units and recheck BG in 2 hours.If BG less than 240 after two hours, give no insulin and resume prior schedule. If BG remains greater than 240, repeat 8 units (no more than three times) & call for new basal insulin orders. DO NOT hold if NPO, unless specifically told to do so., Routine 0814 (Given - Provider: Shyla Streeter RN)1216 (Given - Provider: Shyla Streeter, GET)1617 (Given - Provider: Shyla Streeter RN) insulin lispro (humaLOG) VIAL injection 2-8 Units(Linked Group 1) 2-8 Units, Subcutaneous, 4 TIMES DAILY BEFORE MEALS & NIGHTLY, First dose (after last modification) on 08/30/17 at 2215, Until Discontinued, CORRECTION BOLUS Moderate BG 140 - 160 Give 2 units BG 161 - 200 Give 4 units BG 201 - 240 Give 6 units BG greater than 240, give 8 units and recheck BG in 2 hours.If BG less than 240 after two hours, give no insulin and resume prior schedule. If BG remains greater than 240, repeat 8 units (no more than three times) & call for new basal insulin orders. DO NOT hold if NPO, unless specifically told to do so., Routine 2211 (Given - Provider: Junie Arnlod RN - Comment: BS 206) 07 (Given - Provider: Ty Valenzuela RN)1140 (Given - Provider: Ty Valenzuela RN - Comment: FS 282)162 (Given - Provider: Ty Valenzuela RN)2005 (Given - Provider: Lora Tejada RN)221 (Given - Provider: Denita Quinn RN - Comment: BG 288) 07 (Given - Provider: Ty Valenzuela RN)1130 (Due) lisinopril (PRINIVIL;ZESTRIL) tablet 10 mg 10 mg, Oral, DAILY, First dose on Thu08/30/17 at 0930, Until Discontinued, Routine 1037 (Given - Provider: Shyla Streeter RN) 102 (Given - Provider: Ty Valenzuela RN) 911 (Given - Provider: Ty Valenzuela RN) nitrofurantoin (macrocrystal-monohydra te) (MACROBID) capsule 100 mg (COMPLETED) 100 mg, Oral, 2 TIMES DAILY, 6 doses, First dose on Thu08/28/17 at 0900, Last dose on 08/30/17 at 2100, Routine, Indication for (Active or Suspected): Urinary Tract/Pyelonephritis 813 (Given - Provider: Shyla Streeter RN)2054 (Given - Provider: Junie Arnold RN) pantoprazole (PROTONIX) injection 40 mg (CANCELED) 40 mg, Intravenous, DAILY, First dose on Thu08/27/17 at 0900, Until Discontinued 813 (Given - Provider: Shyla Streeter RN) 102 (Given - Provider: Ty Valenzuela RN) 913 (Not Given - Provider: Ty Valenzuela RN - Reason: Patient/family refused) pantoprazole (PROTONIX) tablet 40 mg 40 mg, Oral, DAILY, First dose on Thu09/01/17 at 1015, Until Discontinued, DO NOT CRUSH OR OPEN sodium chloride 0.9 % flush 5 mL 5 mL, Intravenous, 2 TIMES DAILY, First dose on Thu08/24/17 at 1459, Until Discontinued, Routine 0814 (Given - Provider: Shyal Streeter RN)2056 (Not Given - Provider: Junie Arnold RN - Reason: See comment - Comment: Continuous IVF) 1036 (Given - Provider: Ty Valenzuela RN)2210 (Given - Provider: Denita Quinn RN) 0900 (Not Given - Provider: Ty Valenzuela RN - Reason: Patient/family refused) Continuous Medication Order 08/30/2017 08/31/2017 09/01/2017 TPN Adult (CANCELED) Central, Intravenous, at 100 mL/hr, CONTINUOUS, Starting on Thu08/28/17 at 1800, Until Thu08/31/17 at 1054, Administer over 24 Hours 1738 (New Bag - Provider: Shyla Streeter RN) 1738 (Stopped - Provider: Ty Valenzuela RN) PRN Medication Order 08/30/2017 08/31/2017 09/01/2017 dextrose 50% IV syringe 25-50 mL(Linked Group 2) 25-50 mL (12.5-25 g), Intravenous, EVERY 1 HOUR PRN, Starting on 08/29/17 at 1420, Until Thu09/01/17 at 1341, Low blood sugar, For BG 50-70: 120 [...] (human recombinant) injection SolR 1 mg(Linked Group 2) 1 mg, Intramuscular, EVERY 1 HOUR PRN, Starting on 08/29/17 at 1420, Until Thu09/01/17 at 1341, Low blood sugar, For BG 50-70: 120 [...] the duration of the active insulin., Routine lidocaine (XYLOCAINE) 10 mg/mL (1 %) injection 3 mg 3 mg (0.3 mL), Subcutaneous, ONCE PRN, 1 dose, Starting on Thu08/24/17 at 1457, Until Thu09/01/17 at 1341, for discomfort with PIV insertion, Routine ondansetron (ZOFRAN) injection 4 mg(Linked Group 3) 4 mg, Intravenous, EVERY 8 HOURS PRN, Starting on Thu08/24/17 at 1457, Until Thu09/01/17 at 1341, Nausea, May repeat times one in 30 minutes if ineffective. If multiple antiemetics are ordered, use ondanstron first ondansetron (ZOFRAN) tablet 4 mg(Linked Group 3) 4 mg, Oral, EVERY 8 HOURS PRN, Starting on Thu08/24/17 at 1457, Until Thu09/01/17 at 1341, Nausea, Vomiting, If multiple antiemetics are ordered, use ondansetron first. PO Preferred. If patient unable to take PO, may give IV if ordered. May repeat times one in 45 minutes if ineffective., Routine phenol 1.4% (CHLORASEPTIC) spray 4 spray 4 spray, Oral, EVERY 2 HOURS PRN, Starting on Thu08/25/17 at 0942, Until Thu09/01/17 at 1341, Irritation, Routine sodium chloride 0.9 % flush 5-20 mL 5-20 mL, Intravenous, EVERY 1 MIN PRN, Starting on 08/24/17 at 1457, Until Thu09/01/17 at 1341, flush, Flush pertains to all indwelling lines. Flush per protocol found in the job aid using the link provided on this medication record., Routine Linked Groups Order Group 1: POCT Fingerstick Glucose (CANCELED) Routine, 4 TIMES DAILY BEFORE MEALS & AT BEDTIME, First occurrence on Thu08/30/17 at 2200, Until Specified, Consider choosing FOUR TIMES A DAY BEFORE MEALS AND AT BEDTIME as frequency for: Patients who have a good hypoglycemia awareness: -Patients who are eating meals during the day and sleeping at night -Patient who are otherwise stable And insulin lispro (humaLOG) VIAL injection 2-8 UnitsJump to med 2-8 Units, Subcutaneous, 4 TIMES DAILY BEFORE MEALS & NIGHTLY, First dose (after last modification) on Thu08/30/17 at 2215, Until Discontinued, CORRECTION BOLUS Moderate BG 140 - 160 Give 2 units BG 161 - 200 Give 4 units BG 201 - 240 Give 6 units BG greater than 240, give 8 units and recheck BG in 2 hours.If BG less than 240 after two hours, give no insulin and resume prior schedule. If BG remains greater than 240, repeat 8 units (no more than three times) & call for new basal insulin orders. DO NOT hold if NPO, unless specifically told to do so., Routine Group 2: dextrose 50% IV syringe 25-50 mLJump to med 25-50 mL (12.5-25 g), Intravenous, EVERY 1 HOUR PRN, Starting on 08/29/17 at 1420, Until Thu09/01/17 at 1341, Low blood sugar, For BG 50-70: 120 [...] Intramuscular, EVERY 1 HOUR PRN, Starting on Thu08/29/17 at 1420, Until Thu09/01/17 at 1341, Low blood sugar, For BG 50-70: 120 [...] duration of the active insulin., Routine Group 3: ondansetron (ZOFRAN) tablet 4 mgJump to med 4 mg, Oral, EVERY 8 HOURS PRN, Starting on 08/24/17 at 1457, Until Thu09/01/17 at 1341, Nausea, Vomiting, If multiple antiemetics are ordered, use ondansetron first. PO Preferred. If patient unable to take PO, may give IV if ordered. May repeat times one in 45 minutes if ineffective., Routine Or ondansetron (ZOFRAN) injection 4 mgJump to med 4 mg, Intravenous, EVERY 8 HOURS PRN, Starting on 08/24/17 at 1457, Until 09/01/17 at 1341, Nausea, May repeat times one in 30 minutes if ineffective. If multiple antiemetics are ordered, use ondanstron first documented in this encounter Care Teams Sweater Operator Relationship Specialty Start Date End Date Randa Rosas APRN [address] [place] [address] PCP - General 12/29/12 04/16/22 documented as of this encounter
--- OUTSIDE RECORDS SUMMARY | 2024-11-18 16:58 | XMS_ITS | Encounter Summary ---
Author Organization [facility] Address [facility] [place] [address] Care Team Providers Care Supervisor Research [employer] Name Role Phone aRnda Rosas APRN Primary Care Provider [phone]- [phone] Reason for Visit * Reason Comments Rectal Cancer Encounter Details Date Type Department Care Team (Late st Contact Info) Description 08/23/2015 3:30 PM EDT Follow-Up Hematology/Oncology at [address] [phone] Nas Dobbs MD Rectal cancer; Neurogenic bladder Discharge Disposition: Home Social History Tobacco Use [...] Sign Reading Time Taken Comments Blood Pressure 125/71 08/23/2015 3:24 PM EDT Pulse 82 08/23/2015 3:24 PM EDT Temperature 36.6 ??C (97.9 ??F) 08/23/2015 3:24 PM ED T Respiratory Rate 18 08/23/2015 3:24 PM EDT Oxygen Saturation 97% 08/23/2015 3:24 PM EDT Inhaled Oxygen Concentration - - Weight 115.2 kg (254 lb) 08/23/2015 3:24 PM EDT Height 170.2 cm (5' 7.01) 08/23/2015 3:24 PM ED T Body Mass Index 39.77 08/23/2015 3:24 PM EDT documented in this encounter Progress Notes * Nas Dobbs MD - 08/23/2015 4:16 PM EDT Patient Active Problem List Diagnosis Code ??? Rectal cancer 154.1 ??? Diabetes mellitus 250.00 ??? Obesity (BMI 35.0-39.9 without comorbidity) 278.01 ??? Hypertension 401.9 ??? Snoring 786.09 ??? Colostomy in place V44.3 ??? 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 Status post neoadjuvant chemoradiation therapy with continuous infusion 5 fluorouracil followed by a AP resection. The patient then had 8 cycles of adjuvant FOLFOX chemotherapy Subjective: Reg comes in today for followup. 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 He enjoys his job and life is going well for him. He is doing well with his colostomy and not having problems with that. He is able to urinate now some but he still continues to have large postvoid residual volumes and has to cath himself two or three times a day. Sometimes he gets discomfort with this and he takes an occasional Percocet for that. Otherwise though review of systems is normal and stable. Current Outpatient Prescriptions on File Prior to Visit Medication Sig Dispense Refill ??? UNABLE TO FIND 0.1 mLs by Intracavernosal route as needed ( Triple p solution). One dose in 24 hours. No more than three doses in one week. 2.5 mL 6 ??? Syringe with Needle, Disp, (MONOJECT TB SAFETY SYRINGE) 1 mL 25 x 5/8 Syrg 0.1 mLs by [facility]Non-Drug; Combo Route) route as needed (use no more than 3 times a week). 25 Syringe 11 ??? SITAGLIPTIN PHOS/METFORMIN HCL (JANUMET ORAL) Take by mouth 2 times daily. ??? lisinopril (PRINIVIL;ZESTRIL) 10 mg tablet Take 10 mg by mouth 2 times daily. ??? atorvastatin (LIPITOR) 40 mg tablet Take 20 mg by mouth daily. /2 tab= 20mg ??? sildenafil (VIAGRA) 100 mg [...] no neuropathy. Hematological: Negative for adenopathy. BP 125/71 mmHg Pulse 82 Temp(Src) 36.6 ??C (97.9 ??F) (Oral) Resp 18 Ht 170.2 cm (5' 7.01) Wt 115.214 kg (254 lb) BMI 39.77 kg/m2 SpO2 97% Head: Normocephalic, without obvious abnormality, atraumatic Eyes: [...] Review of his laboratory today shows a white count of 7.3, hemoglobin 14.2, hematocrit 41.4, and platelet count of 278. CMP shows an improved glucose at 162, a creatinine of 0.7, normal liver tests including an ALP of 58. CEA is exceptionally low at less than 0.5. We did get a hemoglobin A1c, which is slightly elevated at 7.0%. His cholesterol is 130 and HDL is 37 with triglycerides at 114. Assessment/Plan: Reg is doing well and is in remission with no evidence of recurrent cancer now two and a half years after his initial resection. We will see him back in six months' time with a final CT scan of the chest, abdomen, and pelvis along with lab including a CEA, CBC, and CMP. He would like to do his lab up in [place] and CT down at [facility] so we will make arrangements for that. He will call if there are issues or problems in the interim. His Percocet prescription is refilled. documented in this encounter Plan of Treatment Not on file documented as of this encounter Procedures Procedure Name Priority Date/Time Associated Diagnosis Comments LAB SCAN 05/23/2016 12:00 AM EDT LAB SCAN 05/23/2016 12:00 AM EDT documented in this encounter Results * SCAN DOC: LAB (05/23/2016 12:00 AM EDT) Scanning Provider MEDIA MGR SCAN EXT O RDR/RSLT * SCAN DOC: LAB (05/23/2016 12:00 AM EDT) Scanning Provider MEDIA MGR SCAN EXT O RDR/RSLT documented in this encounter Visit Diagnoses Diagnosis Rectal cancer Malignant neoplasm of rectum Neurogenic bladder Neurogenic bladder, NOS documented in this encounter Care Teams Supervisor Research Shop Relationship Specialty Start Date End Date Randa Rosas APRN [address] [place] [address] PCP - General 12/29/12 04/16/22 documented as of this encounter
--- OUTSIDE RECORDS SUMMARY | 2024-11-18 16:58 | XMS_ITS | Encounter Summary ---
Author Organization [facility] Address [place] [address] Care Team Providers Care Search Engine Optimizer Name Role Phone Randa Rosas VALENTIN Primary Care Provider +1- [phone] Reason for Visit * Reason Comments Rectal Cancer Encounter Details Date Type Department Care Team (Late st Contact Info) Description 10/23/2014 3:30 PM EST Follow-Up Hematology Oncology at [address] [phone] Nas Dobbs MD Rectal cancer; Back pain Discharge Disposition: Home Social History Tobacco Use [...] Sign Reading Time Taken Comments Blood Pressure 125/80 10/23/2014 3:17 PM EST Pulse 84 10/23/2014 3:17 PM EST Temperature 36.7 ??C (98.1 ??F) 10/23/2014 3:17 PM ES T Respiratory Rate 20 10/23/2014 3:17 PM EST Oxygen Saturation 98% 10/23/2014 3:17 PM EST Inhaled Oxygen Concentration - - Weight 113.9 kg (251 lb) 10/23/2014 3:17 PM EST Height 170.2 cm (5' 7.01) 10/23/2014 3:17 PM ES T Body Mass Index 39.3 10/23/2014 3:17 PM EST documented in this encounter Progress Notes * Nas Dobbs MD - 10/23/2014 3:24 PM EST Diagnosis: 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 Status post neoadjuvant chemoradiation therapy with continuous infusion 5 fluorouracil followed by a AP resection. The patient then had 8 cycles of adjuvant FOLFOX chemotherapy Subjective: Adrien comes in today for followup. At the current time he is doing exceptionally well. He had been having some problems with some skin erosions around his colostomy site. That was quite uncomfortable for a time but with some additional local care and assistance from [facility] that is now getting better and he is doing well. 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 He continues to self cath three or four times a day although is able to urinate now a bit more on his own, however, still has post void residuals. He still gets periodic bladder infections and pyelonephritis and is quite uncomfortable when that occurs so will take some Percocet during that time. Other than that though, he is off of all pain medications but does request a refill on his pain medications. He is not using them daily. Otherwise, review of systems is negative. He just had a CT scan and lab at [facility]. We went over those in detail, and I personally reviewed the films with him. Review of Systems Constitutional: Negative for fever, [...] for ADRIEN CHEUNG ( ) as of 10/23/2014 15:25 Ref. Range 10/16/2014 08:33 WBC Latest Range: 4.0-10.0 x10(3)/mcL 6.1 RBC Latest Range: 4.63-6.08 x10(6)/mcL 4.44 (L) Hemoglobin Latest Range: 13.7-17.5 gm/dL 13.7 Hematocrit Latest Range: 40.0-51.0 % 39.7 (L) MCV Latest Range: 79.0-92.0 fL 89.4 MCH Latest Range: 25.6-32.2 pg 30.9 MCHC Latest Range: 32.0-36.5 gm/dL 34.5 RDWSD Latest Range: 35.0-46.0 fL 42.8 RDWCV Latest Range: 10.9-14.4 % 13.1 Platelets Latest Range: 145-370 x10(3)/mcL 293 MPV Latest Range: 9.0-12.0 fL 9.8 Neutr Abs (ANC) Latest Range: 1.50-6.30 x10(3)/mcL 4.55 Neutrophils % No range found 74.6 Immature Gran % No range found 0.30 Lymphocytes % No range found 16.7 Monocytes % No range found 7.2 Eosinophils % No range found 1.0 Basophils % No range found 0.2 Naomi Gran Abs Latest Range: 0.00-0.05 x10(3)/mcL 0.02 Lymphocytes Abs Latest Range: 1.0-3.6 x10(3)/mcL 1.0 Monocyte Abs Latest Range: 0.2-1.0 x10(3)/mcL 0.4 Eosinophils Abs Latest Range: 0.0-0.5 x10(3)/mcL 0.1 Basophils Abs Latest Range: 0.0-0.2 x10(3)/mcL 0.0 Sodium Latest Range: 135-145 mmol/L 141 Potassium Latest Range: 3.5-5.0 mmol/L 4.6 Chloride Latest Range: 98-107 mmol/L 101 CO2 Latest Range: 22-31 mmol/L 27 Anion Gap Latest Range: 5-15 mmol/L 13 BUN Latest Range: 10-20 mg/dL 10 Creatinine Latest Range: 0.80-1.50 mg/dL 0.74 (L) Estimated GFR Latest Range: >=60 >60 Glucose Lvl Latest Range: 60-199 mg/dL 130 Calcium Latest Range: 8.5-10.5 mg/dL 9.7 Total Protein Latest Range: 6.4-8.3 gm/dL 7.0 Albumin Latest Range: 3.2-5.2 gm/dL 4.5 Total Bilirubin Latest Range: 0.2-1.3 mg/dL 0.5 Bili, Direct Latest Range: 0.0-0.3 mg/dL 0.1 Alk Phos Latest Range: 40-120 unit/L 59 AST Latest Range: 0-39 unit/L 20 ALT Latest Range: 0-55 unit/L 27 CEA Latest Range: <=3.8 ng/mL 1.[address] Chest / Abdomen / Pelvis With Contrast Clinical History Follow up rectal cancer Comparison April 06, 2013. Technique Contrast-enhanced CT of the chest abdomen and pelvis following the intravenous administration of 110 cc Omnipaque 350 intravenous contrast and oral contrast. Findings Chest: No pulmonary nodules. No enlarged lymph nodes. No central pulmonary emboli. No effusions. Stable left and right coronary artery calcification. Interval removal of right internal jugular MediPort catheter without residual SVC thrombus. Abdomen/pelvis: Liver, gallbladder, spleen and pancreas are normal. Right and left adrenal glands are normal. New mild fullness of both collecting systems and ureters to the pelvic inlet. No enlarged retroperitoneal lymph nodes. No enlarged iliac, inguinal nor deep pelvic lymph nodes. New ventral hernia containing loops of small bowel without CT evidence of incarceration. New left supra stomal hernia containing loops of small bowel without radiographic evidence of incarceration. New left colostomy. Patient is newly status post APR with pelvic clips/sutures in place. Soft tissue is present at the proctectomy site. A small hypodense region within this measuring up to 24 x 13 mm in the pre coccygeal space may represent postoperative seroma. Extensive soft tissue thickening is present along the entire presacral space. This soft tissue is intimately adjacent to the entire posterior bladder wall and base. Review of osseous structures shows no suspicious lesions. Impression Unexpected findings: Presacral soft tissue intimately associated with the posterior bladder wall extending down to the bladder base where there is a small hypodense collection at the region of prior proctectomy which may represent a small postoperative seroma. I cannot distinguish whether this is entirely postsurgical soft tissue or whether or not there is recurrent disease within this. PET scan may be helpful. New mild collecting system and ureteral fullness to the pelvic inlet. Cannot distinguish whether this is due to limited outflow from the distorted bladder morphology due to presacral soft tissue and postoperative anatomic changes. Surveillance of serologic indication of renal function suggested. New abdominal wall hernias as described above. New left colostomy. Assessment/Plan: Adrien is doing well at this time and has no definitive evidence of recurrence. There is some question raised in the justin-bladder area. He is having bladder problems, is self cathing and has periodic infections and also had surgery and radiation in that area. I think most of that probably more than explains the abnormalities noted. I would, however, like to repeat his scans. Radiology suggested possible PET scan. With the repeated infections I am a bit concerned we could have a false positive PET and suspect it may not help sort this out so in that regard we will go ahead and repeat the scan in four months with lab including a CEA, CBC and CMP. I think if that scan is relatively stable or improved we can then put him back on his yearly followup for radiology. As noted, we refilled his Percocet. We will see him back after his scan in four months, and he will call if there are any issues or problems in the interim. documented in this encounter Plan of Treatment Not on file documented as of this encounter Results * CEA (02/14/2015 1:16 PM EDT) Carcinoembryonic Antigen 2.0 <=3.8 ng/mL [facility] Comment: Reference range: ??(20-69 years): Non-smoker: ??less than or equal to 3.8 ng/mL Smoker: ??less than 5.5 ng/ml Blood specimen (specimen) 02/14/2015 1:16 PM EDT 02/14/2015 1:32 PM EDT Narrative Resulting Agency Comment Spec In Lab Nas Dobbs MD CHEMISTRY ORDERABLES [facility] * (ABNORMAL) Comprehensive metabolic panel (non-fasting) (02/14/2015 1:16 PM EDT) Pathologist [facility] Glucose 111 60 - 199 mg/dL [facility] Comment:Diabetes: >=200 mg/d L plus symptoms Blood Urea Nitrogen 12 10 - 20 mg/dL [facility] Creatinine 0.74(L) 0.80 - 1.50 mg/dL [facility] Comment: Please note that the pediatric reference intervals supplied above were not validated at [facility]. Results from pediatric patients should be interpreted in conjunction to the patient's age, height and muscle mass. Sodium 140 135 - 145 mmol/L [facility] Potassium 4.3 3.5 - 5.0 mmol/L [facility] Comment: Please note: ??Patients with WBC >100,000 may have falsely elevated Potassium levels. ??For accurate Potassium quantification in these patients send serum separator tube (gold top) for subsequent determinations. ??Contact the Clinical Chemistry Laboratory if there are any questions. Chloride 99 98 - 107 mmol/L [facility] Carbon Dioxide 26 22 - 31 mmol/L [facility] Anion Gap 15 5 - 15 mmol/L [facility] Calcium 9.3 8.5 - 10.5 mg/dL [facility] Protein, Total 7.0 6.1 - 8.0 gm/dL [facility] Albumin 4.5 3.2 - 5.2 gm/dL [facility] Aspartate Aminotransferase 20 0 - 39 unit/L [facility] Alanine Aminotransferase 29 0 - 55 unit/L [facility] Alkaline Phosphatase 59 40 - 120 unit/L [facility] Bilirubin, Total 0.6 0.2 - 1.3 mg/dL [facility] Bilirubin, [...] the following links into your internet browser. [email or web address] Blood specimen (specimen) 02/14/2015 1:16 PM EDT 02/14/2015 1:32 PM EDT Narrative Resulting Agency Comment Spec In Lab Nas Dobbs MD CHEMISTRY ORDERABLES [facility] documented in this encounter Visit Diagnoses Diagnosis Rectal cancer Malignant neoplasm of rectum Back pain Backache, unspecified documented in this encounter Care Teams Search Engine Optimizer Relationship Specialty Start Date End Date Randa Rosas APRN [address] [place] [address] PCP - General 12/29/12 04/16/22 documented as of this encounter
--- OUTSIDE RECORDS SUMMARY | 2024-11-18 16:58 | XMS_ITS | Encounter Summary ---
Author Organization [facility] Address [facility] [place] [address] Care Team Providers Care Funeral Home Associate Name Role Phone Randa Rosas APRN Primary Care Provider +1- [phone] Encounter Details Date Type Department Care Team (Latest Contact Info) Description 03/23/2015 9:51 AM EDT - 03/23/2015 3:47 PM EDT Hospital [place] [address] Bobby Hills MD Discharge Disposition: Home Social History Tobacco [...] you need to be checked. Thursday-Thursday Clinic [phone] 8a-5p Same Day Endo [phone] 7a-8p Otherwise contact [phone] and ask to speak to the biomedical equipment technician installation technician Follow up care is a uribe part [...] & Rectal Surgery Interval H&P Reg Lux Marie,[id number] Interval: Since last seen, no signficant changes. [...] at [facility] OR ??? Remove abd lymph nodes rad regnl 05/11/2013 @LYMPHADENECTOMY,ABDOMINAL,REGIONAL,MULTIPLE NODES performed by Bobby Hills MD at [facility] OR ??? Exclusion, small bowel from pelvis 05/11/2013 @EXCLUSION OF SMALL INTESTINE FROM PELVIS performed by Bobby Hills MD at [facility] OR ??? Muscle-skin flap, leg 05/11/2013 FLAP, MYOCUTANEOUS OR FASCIOCUTANEOUS, LOWER EXTREMITY performed by Oscar Soto MD at [facility] OR ??? Adj tiss xfer scalp, extrem 10.1-30 05/11/2013 ADJ.TISSUE TRANSFER, REARRANGEMENT, 10.1 TO 30 SQ.CM, LEGS performed by Oscar Soto MD at [facility] OR ??? Cystoscopy, insert ureteral stent 05/11/2013 CYSTO, STENT PLACEMENT INTRAOP, TEMPORARY performed by Mark Khan MD at [facility] OR ??? Omental flap, intra-abdominal 05/11/2013 @OMENTAL FLAP, INTRA-ABDOMINAL performed by Mark Khan MD at [facility] OR No current facility-administered medications on file [...] colonoscopy. Bobby Hills MD, MS, FACS, FASCRS digester operator Division of Colon and Rectal Surgery [facility] Pager #[phone] documented in this encounter Miscellaneous Notes * Op Note - Bobby Hills - 03/22/2015 5:48 PM EDT See Provation report in Results for full colonoscopic findings. In summary: normal, next colonoscopy 2 years. Bobby Hills MD, MS, FACS digester operator Division of Colon and Rectal Surgery [facility] Pager #[phone] documented in this encounter Plan of Treatment [...] Glucose, POC 136 60 - 199 mg/dL [facility] Comment: Supplemental ranges: <140 mg/dL before meals <180 mg/dL all other times of the day Blood specimen (specimen) 03/23/2015 12:02 PM EDT 03/23/2015 12:02 PM EDT Bobby Hills MD POINT OF CARE TEST O RDERABLES Performing Organization Address City/State/[facility] Co de Phone Number [facility] * COLONOSCOPY (03/23/2015 11:57 AM EDT) COLONOSCOPY [facility] Endoscopy Patient Name: Reg Salazar ? Procedure Date: 03/23/2015 11:57 AM ? N: [id number] ? Date of : 1955 ? Age: 59 ? Order #: [id number] ? Procedure: ? Colonoscopy Indications: ? High [...] Procedure Code(s): ?? --- Professional --- ? 61137, Colonoscopy through stoma; ? diagnostic, including collection of ? specimen(s) by brushing or washing, ? when performed (separate procedure) Diagnosis Code(s): ?? --- Professional --- ? V10.06, Personal history of malignant ? neoplasm of rectum, rectosigmoid ? junction, and anus ? --- Technical --- ? V10.06, Personal history of malignant ? neoplasm of rectum, rectosigmoid ? junction, and anus CPT copyright 2014 [employer]. All rights reserved. The codes documented in this report are preliminary and upon commercial escrow assistant review may be revised to meet current [...] MAR Action Action Date Dose Rate Site lactated ringers infusion 100 mL/hr, Intravenous, CONTINUOUS, Starting on Thu03/23/15 at 1045, Until Thu03/23/15 at 1302, Endoscopy (Day of Procedure) New Bag 03/23/2015 10:45 AM EDT 100 mL/hr 100 mL/hr documented in this encounter Active [...] RN) documented in this encounter Care Teams Funeral Home Associate Relationship Specialty Start Date End Date Randa Rosas APRN [address] [place] [phone] PCP - General 12/29/12 04/16/22 documented as of this encounter
--- OUTSIDE RECORDS SUMMARY | 2024-11-18 16:58 | XMS_ITS | Encounter Summary ---
Author Organization [facility] Address [facility] [place] [address] Care Team Providers Care Cotton Roll Packer Name Role Phone Randa Rosas RESCUE INSTRUCTOR Primary Care Provider +1- [phone] Encounter Details Date Type Department Care Team (Latest Contact Info) Description 02/14/2015 12:46 PM EDT - 02/14/2015 11:59 PM EDT Hospital Encounter [place] [address] Nas Dobbs MD Rectal cancer Discharge Disposition: [...] Priority Date/Time Associated Diagnosis Comments HEMOGRAM Routine 02/14/2015 1:16 PM EDT Rectal cancer DIFFERENTIAL, AUTOMATED Routine 02/14/2015 1:16 PM EDT Rectal cancer CBC (WITH DIFF) Routine 02/14/2015 1:16 PM EDT Rectal cancer CEA Routine 02/14/2015 1:16 PM EDT Rectal cancer COMPREHENSIVE METABOLIC PANEL Routine 02/14/2015 1:16 PM EDT Rectal cancer documented in this encounter Results * Differential, Automated (02/14/2015 1:16 PM EDT) Neutrophil % 74.8 % [facility] Neutrophil Absolute 6.15 1.50 - 6.30 x10(3)/mcL [facility]ILL[facility] Lymph % 16.1 % [facility]ILLEN[facility] Lymphocytes Abs 1.3 1.0 - 3.6 x10(3)/mcL [facility]ILL[facility] Monocyte % 7.5 % [facility] MILLENNI[facility] Monocyte Abs 0.6 0.2 - 1.0 x10(3)/mcL [facility] MILLENNI[facility] Eos % 1.3 % [facility] MILLENNI[facility] Eosinophils Abs 0.1 0.0 - 0.5 x10(3)/mcL [facility]ILLEN[facility] Basophil % 0.1 % [facility] MILLENNI[facility] Baso Absolute 0.0 0.0 - 0.2 x10(3)/mcL [facility]ILLEN[facility] Immature Gran % 0.20 % [facility] Comment: Immature granulocytes(IG's)percentage and absolute count will include metamyelocytes, myelocytes, and promyelocytes. Blood smears from CBCs yielding IG's will be scanned manually for concordance. If this scan disagrees with the automated IG or if promyelocytes are noted, a manual differential will be performed. Immature Gran Absolute 0.02 0.00 - 0.05 x10(3)/mcL [facility]ILL[facility] Blood specimen (specimen) 02/14/2015 1:16 PM EDT 02/14/2015 1:32 PM EDT Narrative Resulting Agency Comment Spec In Lab Nas Dobbs MD HEMATOLOGY ORDERABLE S [facility]ILLENNI[facility] * (ABNORMAL) Hemogram (02/14/2015 1:16 PM EDT) White Blood Cell 8.2 4.0 - 10.0 x10(3)/mc L [facility] MILLENNI[facility] Red Blood Cell 4.54(L) 4.63 - 6.08 x10(6)/mc L [facility]ILLENNI[facility] Hemoglobin 14.1 13.7 - 17.5 gm/dL [facility] MILLENNI[facility] Hematocrit 40.7 40.0 - 51.0 % [facility] MILLENNIUM Mean Cell Volume 89.6 79.0 - 92.0 fL [facility] MILLENNI[facility] Mean Cell Hemoglobin 31.1 25.6 - 32.2 pg [facility] MILLENNIUM Mean Cell Hemoglobin Concentration 34.6 32.0 - 36.5 gm/dL [facility] MILLENNIUM Platelet 275 145 - 370 x10(3)/mc L [facility] MILLENNIUM RDW Standard Deviation 42.5 35.0 - 46.0 fL [facility] MILLENNIUM RDW coefficient of variation 13.2 10.9 - 14.4 % [facility] MILLENNIUM Mean Platelet Volume 10.5 9.0 - 12.0 fL [facility]ILL[facility] Blood specimen (specimen) 02/14/2015 1:16 PM EDT 02/14/2015 1:32 PM EDT Narrative Resulting Agency Comment Spec In Lab Nas Dobbs MD HEMATOLOGY ORDERABLE S [facility] * CEA (02/14/2015 1:16 PM EDT) Pathologist [facility] Carcinoembryonic Antigen 2.0 <=3.8 ng/mL [facility] MILLENNIUM Comment: Reference range: ??(20-69 years): Non-smoker: ??less than or equal to 3.8 ng/mL Smoker: ??less than 5.5 ng/ml Blood specimen (specimen) 02/14/2015 1:16 PM EDT 02/14/2015 1:32 PM EDT Narrative Resulting Agency Comment Spec In Lab Nas Dobbs MD CHEMISTRY ORDERABLES Performing Organization Address City/[facility]/ZIP Co de Phone Number [facility] WE[facility] * (ABNORMAL) Comprehensive metabolic panel (non-fasting) (02/14/2015 1:16 PM EDT) [facility] Glucose 111 60 - 199 mg/dL [facility] MILLENNIUM Comment:Diabetes: >=200 mg/d L plus symptoms Blood Urea Nitrogen 12 10 - 20 mg/dL [facility] MILLENNIUM Creatinine 0.74(L) 0.80 - 1.50 mg/dL [facility] MILLENNIUM Comment: Please note that the pediatric reference intervals supplied above were not validated at [facility]. Results from pediatric patients should be interpreted in conjunction to the patient's age, height and muscle mass. Sodium 140 135 - 145 mmol/L [facility]ILL[facility] Potassium 4.3 3.5 - 5.0 mmol/L [...] the following links into your internet browser. [email or web address] Blood specimen (specimen) 02/14/2015 1:16 PM EDT 02/14/2015 1:32 PM EDT Narrative Resulting Agency Comment Spec In Lab Nas Dobbs MD CHEMISTRY ORDERABLES [facility] MILLENNIUM documented in this encounter Visit Diagnoses Diagnosis Rectal cancer Malignant neoplasm of rectum documented in this encounter Care Teams Cotton Roll Packer Relationship Specialty Start Date End Date Randa Rosas APRN [address] [place] [address] PCP - General 12/29/12 04/16/22 documented as of this encounter
--- OUTSIDE RECORDS SUMMARY | 2024-11-18 16:59 | XMS_ITS | Encounter Summary ---
Author Organization [facility] Address [facility] [place] [address] Care Team Providers Care Service Order Expediter Name Role Phone Randa Rosas APRN Primary Care Provider +1- [phone] Reason for Visit * Reason Comments Chemotherapy FOLFOX #1 Encounter Details Date Type Department Care Team (Late st Contact Info) Description 06/21/2013 10:30 AM EDT Office Visit Hematology Oncology at [address] [phone] CLINIC, DR OQUENDO HEM/ONC Rectal cancer (Primary Dx) Social History Tobacco Use Types [...] as of this encounter Progress Notes * Cortez Caceres RPH - 06/21/2013 1:28 PM EDT * Pharmacist Waste Documentation * Drug: oxaliplatin Date Administered: 06/21/13 (mm/dd/yy) Time: 1030 Amount Pharmacy Discarded: 18 mg * Virginia Madrigal RN - 06/21/2013 10:03 AM EDT INFUSION THERAPY ADMINISTRATION NOTES DIAGNOSIS: Rectal Cancer CYCLE #:1 REASON FOR VISIT: FOLFOX SUBJECTIVE Reg offers that he still has trouble sitting and is working on getting his stamina back. OBJECTIVE LAB DATA: WNL IV ACCESS: Mediport accessed at [facility], no blood return noted. Clear dye study noted. Pre administration: Chemotherapy orders independently verified for drug name, route, and dosage per patient's height, weight and BSA by Miriam Dubois RN and Virginia Madrigal RN REACTIONS (DESCRIPTION, TIME, INTERVENTION AND EFFECTIVENESS) none ASSESSMENT Reg was awake, alert and tolerated treatment well. PLAN Return to clinic for disconnect of CADD pump. documented in this encounter Plan of Treatment Not on file documented as of this encounter Visit Diagnoses Diagnosis Rectal cancer- Primary Malignant neoplasm of rectum documented in this encounter Administered Medications Inactive Administered Medications - up to 3 most recent administrations Medication Order MAR Action Action Date Dose Rate Site dexamethasone (DECADRON) injection 10 mg 10 mg, Intravenous, ONCE, 1 dose, On Thu06/21/13 at 1030, Pre chemo, Routine Given 06/21/2013 9:55 AM EDT 10 mg fluorouracil (ADRUCIL) chemo injection 855 mg 855 mg, Intravenous, ONCE, 1 dose, On Thu06/21/13 at 1030, Administer over 5 Minutes Given 06/21/2013 1:05 PM EDT 855 mg 205.2 mL/hr fosaprepitant (EMEND) 150 mg in sodium chloride 0.9% 155 mL infusion 150 mg, Intravenous, ONCE, 1 dose, On Thu06/21/13 at 1030, Administer over 30 Minutes, Pre chemo New Bag 06/21/2013 10:00 AM EDT 150 mg 310 mL/hr leucovorin 43 mg in dextrose 5% 504.3 mL infusion 43 mg, Intravenous, ONCE, 1 dose, On Thu06/21/13 at 1000, Administer over 120 Minutes New Bag 06/21/2013 10:44 AM EDT 43 mg 252.2 mL/hr OXALIplatin (ELOXATIN) 182 mg in dextrose 5% 286.4 mL chemo infusion 182 mg, Intravenous, ONCE, 1 dose, On Thu06/21/13 at 1030, Administer over 120 Minutes, Vesicant/irritant. Avoid extravasation. Compatible with dextrose-containing solution only. New Bag 06/21/2013 10:44 AM EDT 182 mg 143.2 mL/hr palonosetron (ALOXI) injection 0.25 mg 0.25 mg, Intravenous, ONCE, 1 dose, On Thu06/21/13 at 1030, Pre chemo, Routine Given 06/21/2013 9:58 AM EDT 0.25 mg documented in this encounter Care Teams Service Order Expediter Relationship Specialty Start Date End Date Randa Rosas APRN [address] [place] [phone] PCP - General 12/29/12 04/16/22 documented as of this encounter
--- OUTSIDE RECORDS SUMMARY | 2024-11-18 16:59 | XMS_ITS | Encounter Summary ---
Author Organization [facility] Address [facility] [place] [address] Care Team Providers Care Recovery Operator Helper Name Role Phone Randa Rosas APRN Primary Care Provider +1- [phone] Reason for Visit * Reason Comments Rectal Cancer folfox # 3 Encounter Details Date Type Department Care Team (Late st Contact Info) Description 07/19/2013 10:30 AM EDT Office Visit Hematology Oncology at [address] [phone] CLINIC, DR OQUENDO HEM/ONC Rectal cancer (Primary [...] as of this encounter Progress Notes * Sunitha Matias RN - 07/19/2013 2:03 PM EDT INFUSION THERAPY ADMINISTRATION NOTES TIME TREATMENT STARTED:944 TIME TREATMENT ENDED:1414 DIAGNOSIS: rectal cancer PROTOCOL:na CYCLE #: 3 REASON FOR VISIT: folfox SUBJECTIVE Reg Salazar offers no complaints. OBJECTIVE LAB DATA: Labs reviewed and found adequate for treatment. Pre administration: Chemotherapy orders independently verified for drug name, route, and dosage per patient's height, weight and BSA by Leidy Matias RN and Li Wilhelm RN. REACTIONS (DESCRIPTION, TIME, INTERVENTION AND EFFECTIVENESS) none ASSESSMENT Reg E Salazar was awake, alert and he tolerated treatment well. PLAN Return to clinic thurs. Around 12Noon. * Cortez Caceres RPH - 07/19/2013 10:55 AM EDT * Pharmacist Waste Documentation * Drug: oxaliplatin Date Administered: 07/19/13 (mm/dd/yy) Time: 1030 Amount Pharmacy Discarded: 18 mg documented in this encounter Procedure Notes * Provider, Scanning - 07/19/2013 9:14 AM EDTAssociated Order(s): SCAN DOC: LAB documented in this encounter Plan of Treatment Not on file documented as of this encounter Procedures Procedure Name Priority Date/Time Associated Diagnosis Comments LAB SCAN 07/19/2013 9:14 AM EDT documented in this encounter Results * SCAN DOC: LAB (07/19/2013 9:14 AM EDT) Narrative 07/19/2013 9:14 AM EDT Procedure Note Provider, Pola - 07/19/2013 9:14 AM EDT Scanning Provider MEDIA MGR SCAN EXT O RDR/RSLT documented in this encounter Visit Diagnoses Diagnosis Rectal cancer- Primary Malignant neoplasm of rectum documented in this encounter Administered Medications Inactive Administered Medications - up to 3 most recent administrations Medication Order MAR Action Action Date Dose Rate Site alteplase (CATHFLO) injection 2 mg 2 mg, INTRA-CATHETER, ONCE, 1 dose, On Thu07/19/13 at 1115, Instill into occluded lumen as directed., Routine Given 07/19/2013 10:45 AM EDT 2 mg dexamethasone (DECADRON) tablet 10 mg 10 mg, Oral, ONCE, 1 dose, On Thu07/19/13 at 1030, Pre chemo, Routine Given 07/19/2013 9:55 AM EDT 10 mg fluorouracil (ADRUCIL) chemo injection 855 mg 855 mg, Intravenous, ONCE, 1 dose, On Thu07/19/13 at 1030, Administer over 5 Minutes Given 07/19/2013 1:42 PM EDT 855 mg 205.2 mL/hr fosaprepitant (EMEND) 150 mg in sodium chloride 0.9% 155 mL infusion 150 mg, Intravenous, ONCE, 1 dose, On Thu07/19/13 at 1030, Administer over 30 Minutes, Pre chemo New Bag 07/19/2013 10:10 AM EDT 150 mg 310 mL/hr leucovorin 43 mg in dextrose 5% 504.3 mL infusion 43 mg, Intravenous, ONCE, 1 dose, On Thu07/19/13 at 1030, Administer over 120 Minutes New Bag 07/19/2013 11:32 AM EDT 43 mg 252.2 mL/hr OXALIplatin (ELOXATIN) 182 mg in dextrose 5% 286.4 mL chemo infusion 182 mg, Intravenous, ONCE, 1 dose, On Thu07/19/13 at 1030, Administer over 120 Minutes, Vesicant/irritant. Avoid extravasation. Compatible with dextrose-containing solution only. New Bag 07/19/2013 11:31 AM EDT 182 mg 143.2 mL/hr palonosetron (ALOXI) injection 0.25 mg 0.25 mg, Intravenous, ONCE, 1 dose, On Thu07/19/13 at 1030, Pre chemo, Routine Given 07/19/2013 10:05 AM EDT 0.25 mg documented in this encounter Care Teams Recovery Operator Helper Relationship Specialty Start Date End Date Randa Rosas APRN [address] [place] [phone] PCP - General 12/29/12 04/16/22 documented as of this encounter
--- OUTSIDE RECORDS SUMMARY | 2024-11-18 16:59 | XMS_ITS | Encounter Summary ---
Author Organization [facility] Address [facility] [place] [address] Care Team Providers Care Insurance Inspector Name Role Phone Randa Rosas APRN Primary Care Provider +1- [phone] Reason for Visit * Reason Comments Rectal Cancer Encounter Details Date Type Department Care Team (Late st Contact Info) Description 06/21/2013 9:30 AM EDT Follow-Up Hematology Oncology at [address] [phone] Nas Dobbs MD Rectal cancer (Primary Dx) Discharge Disposition: [...] Sign Reading Time Taken Comments Blood Pressure 121/75 06/21/2013 9:10 AM EDT Pulse 93 06/21/2013 9:10 AM EDT Temperature 36.4 ??C (97.5 ??F) 06/21/2013 9:10 AM ED T Respiratory Rate 18 06/21/2013 9:10 AM EDT Oxygen Saturation 99% 06/21/2013 9:10 AM EDT Inhaled Oxygen Concentration - - Weight 97.3 kg (214 lb 8 oz) 06/21/2013 9:10 AM EDT Height 170.2 cm (5' 7.01) 06/21/2013 9:10 AM ED T Body Mass Index 33.59 06/21/2013 9:10 AM EDT documented in this encounter Progress Notes * Nas Dobbs MD - 06/21/2013 9:24 AM EDT Diagnosis: 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 Status post neoadjuvant chemoradiation therapy with continuous infusion 5 fluorouracil followed by a AP resection. Subjective: Reg is here today to start FOLFOX chemotherapy. He is continuing to straight catheter himself on occasion. He notes when he takes Flomax he has urinary incontinence so he's chosen not to take that. He continues to have some pelvic pain but that's under control with medication and sitting on a cushion. We did get a portogram on him and there's no evidence of residual clot associated with his catheter. He remains on daily Lovenox. Plans are to continue the Lovenox until his port comes out at thecompletion of therapy. His main problem has been sitting. He is active enough that he was able to go out [employer] for an hour the other day. He is walking daily. He is trying to get back into good physical condition. Past medical history and social history are reviewed and He is now off work as noted. He is doing reasonably well with the assistance of his /girlfriend with the colostomy Review of Systems Constitutional: Negative for fever, chills, activity change, fatigue and unexpected weight change. HENT: Negative for sore throat, mouth sores and trouble swallowing. Eyes: Negative. Respiratory: Negative for cough, shortness of breath and wheezing. Cardiovascular: Negative for chest pain, palpitations and leg swelling. Gastrointestinal: Negative for nausea, vomiting,He has positive perirectal pain an ostomy is functioning well Genitourinary: Negative for dysuria and difficulty urinating. Musculoskeletal: Negative. Skin: Negative. Neurological: Negative. Hematological: Negative for adenopathy. Head: Normocephalic, without [...] supraclavicular, and axillary nodes normal Neurologic: Normal His white count today is 6.29 hemoglobin 10.1 mean cell volume 88 platelet count is 471 and ANC is 4.87. CMP shows a creatinine of 0.7 a postprandial glucose of 257 and normal liver tests. Assessment/Plan: Reg is doing well post resection of his stage II A. Rectal cancer. Standard therapy protocols for rectal cancer include both the addition of neoadjuvant as well as adjuvant chemotherapy. Certainly the low stage is a good prognostic sign however recommendations are made to strongly consider adjuvant therapy. He is here today for cycle one of 8 planned FOLFOX chemotherapy is given every 2 weeks. Risks and side effects were again gone over in he has a good understanding of things and consents to treatment. We'll be checking on him in a couple days when he gets a pump disconnect. His next cycle be in 2 weeks and we'll check his port trauma CBC and CMP prior to that visit. He'll call if issues or problems develop in the interim. documented in this encounter Procedure Notes * Provider, Scanning - 07/05/2013 3:29 PM EDTAssociated Order(s): SCAN DOC: CHEMOTHERAPY * Provider, Scanning - 06/23/2013 4:43 PM EDTAssociated Order(s): SCAN DOC: CHEMOTHERAPY * Provider, Scanning - 06/21/2013 9:29 AM EDTAssociated Order(s): SCAN DOC: LAB documented in this encounter Plan of Treatment Not on file documented as of this encounter Procedures Procedure Name Priority Date/Time Associated Diagnosis Comments CHEMOTHERAPY SCAN 07/05/2013 3:2 9 PM EDT CHEMOTHERAPY SCAN 06/23/2013 4:4 3 PM EDT LAB SCAN 06/21/2013 9:29 AM EDT documented in this encounter Results * SCAN DOC: CHEMOTHERAPY (07/05/2013 3:29 PM EDT) Narrative 07/05/2013 3:29 PM EDT Procedure Note Provider, Scanning - 07/05/2013 3:29 PM EDT Scanning Provider MEDIA MGR SCAN EXT O RDR/RSLT * SCAN DOC: CHEMOTHERAPY (06/23/2013 4:43 PM EDT) Narrative 06/23/2013 4:43 PM EDT Procedure Note Provider, Scanning - 06/23/2013 4:43 PM EDT Scanning Provider MEDIA MGR SCAN EXT O RDR/RSLT * SCAN DOC: LAB (06/21/2013 9:29 AM EDT) Narrative 06/21/2013 9:29 AM EDT Procedure Note Provider, Scanning - 06/21/2013 9:29 AM EDT Scanning Provider MEDIA MGR SCAN EXT O RDR/RSLT documented in this encounter Visit Diagnoses Diagnosis Rectal cancer- Primary Malignant neoplasm of rectum documented in this encounter Care Teams Insurance Inspector Relationship Specialty Start Date End Date Randa Rosas APRN [address] [place] [phone] PCP - General 12/29/12 04/16/22 documented as of this encounter
--- OUTSIDE RECORDS SUMMARY | 2024-11-18 16:59 | XMS_ITS | Encounter Summary ---
[facility] Address [facility] [place] [address] Care Team Providers Care Micro Computer Data Processor Name Role Phone Randa Rosas VALENTIN Primary Care Provider +1- [phone] Reason for Visit * Reason Comments Chemotherapy FOLFOX Cycle 6 Encounter Details Date Type Department Care Team (Late st Contact Info) Description 09/07/2013 10:00 AM EDT Office Visit Hematology Oncology at [address] [phone] CLINIC, DR OQUENDO HEM/ONC Rectal cancer (Primary [...] Progress Notes * Cortez Caceres RPH - 09/07/2013 11:23 AM EDT * Pharmacist Waste Documentation * Drug: oxaliplatin Date Administered: 09/07/13 (mm/dd/yy) Time: 1000 Amount Pharmacy Discarded: 18 mg * Slime Wilhelm RN - 09/07/2013 9:28 AM EDT INFUSION THERAPY ADMINISTRATION NOTES DIAGNOSIS: Rectal Cancer CYCLE #: 6 REASON FOR VISIT: FOLFOX infusion and initiation of continunous home 5FU infusion via CADD pump provided by [facility] SUBJECTIVE Mr. Salazar offers no complaints. OBJECTIVE LAB DATA: Labs reviewed and found adequate for treatment. Pre administration: Chemotherapy orders independently verified for drug name, route, and dosage per patient's height, weight and BSA by Slime Wilhelm RN and Virginia Madrigal RN. At time of administration Patient identity verified using patient's name and date of at the chair/bedside with christoph RN and christoph, RN just prior to initiating the patient's home infusion chemotherapy via CADD pump [facility]. Fluorouracil 5215mg over 46 hours, IV via CADD pump started at 1410. Pump verified at 1425 by Slime Wilhelm RN and Virginia Madrigal RN and 0.6 cc had infused. REACTIONS (DESCRIPTION, TIME, INTERVENTION AND EFFECTIVENESS) none ASSESSMENT Mr. Salazar was awake, alert and he tolerated treatment well. PLAN Return to clinic in 2 days for disconnect of 5FU documented in this encounter Plan of Treatment Not on file documented as of this encounter Visit Diagnoses Diagnosis Rectal cancer- Primary Malignant neoplasm of rectum documented in this encounter Administered Medications Inactive Administered Medications - up to 3 most recent administrations Medication Order MAR Action Action Date Dose Rate Site alteplase (CATHFLO) injection 2 mg 2 mg, INTRA-CATHETER, ONCE, 1 dose, On Thu09/07/13 at 1530, Instill into occluded lumen as directed., Routine Given 09/07/2013 9:10 AM EDT 2 mg dexamethasone (DECADRON) injection 10 mg 10 mg, Intravenous, ONCE, 1 dose, On Thu09/07/13 at 1000, Pre chemo, Routine Given 09/07/2013 10:12 AM EDT 10 mg fluorouracil (ADRUCIL) chemo injection 855 mg 855 mg, Intravenous, ONCE, 1 dose, On Thu09/07/13 at 1000, Administer over 5 Minutes Given 09/07/2013 1:58 PM EDT 855 mg 205.2 mL/hr fosaprepitant (EMEND) 150 mg in sodium chloride 0.9% 155 mL infusion 150 mg, Intravenous, ONCE, 1 dose, On Thu09/07/13 at 1000, Administer over 30 Minutes, Pre chemo New Bag 09/07/2013 10:26 AM EDT 150 mg 310 mL/hr leucovorin 43 mg in dextrose 5% 504.3 mL infusion 43 mg, Intravenous, ONCE, 1 dose, On Thu09/07/13 at 1000, Administer over 120 Minutes New Bag 09/07/2013 11:36 AM EDT 43 mg 252.2 mL/hr OXALIplatin (ELOXATIN) 182 mg in dextrose 5% 286.4 mL chemo infusion 182 mg, Intravenous, ONCE, 1 dose, On Thu09/07/13 at 1000, Administer over 120 Minutes, Vesicant/irritant. Avoid extravasation. Compatible with dextrose-containing solution only. New Bag 09/07/2013 11:36 AM EDT 182 mg 143.2 mL/hr palonosetron (ALOXI) injection 0.25 mg 0.25 mg, Intravenous, ONCE, 1 dose, On Thu09/07/13 at 1000, Pre chemo, Routine Given 09/07/2013 10:20 AM EDT 0.25 mg documented in this encounter Care Teams Micro Computer Data Processor Relationship Specialty Start Date End Date Randa Rosas APRN [address] [place] [address] PCP - General 12/29/12 04/16/22 documented as of this encounter
--- OUTSIDE RECORDS SUMMARY | 2024-11-18 16:59 | XMS_ITS | Encounter Summary ---
Author Organization [facility] Address [facility] [place] [address] Care Team Providers Care Learning Facilitator Name Role Phone Randa Rosas APRN Primary Care Provider +1- [phone] Reason for Visit * Reason Comments Rectal Cancer cadd pump disconnect , port flush Encounter Details Date Type Department Care Team (Late st Contact Info) Description 10/07/2013 4:00 PM EST Office Visit Hematology Oncology at [address] [phone] CLINIC, DR OQUENDO HEM/ONC Paul Rain MD [facility] [address] Rectal cancer (Primary Dx) Discharge Disposition: Home [...] as of this encounter Progress Notes * Sandra Flores RN - 10/07/2013 3:42 PM EST INFUSION THERAPY ADMINISTRATION NOTES TIME TREATMENT STARTED: xxx TIME TREATMENT ENDED: xxx DIAGNOSIS: Rectal Cancer REASON FOR VISIT: MEDIPORT FLUSH/Disconnect CADD pup IV ACCESS: Mediport GAUGE: 19G BLOOD RETURN: yes ANY S/S OF INFECTION/EXTRAVASATIONS: no signs of IV complications observed IV FLUSHED WITH: 20cc NS and 500 units Heparin IV DISCONTINUED: yes ASSESSMENT: Patient tolerated treatment well. PLAN: Return to clinic per routine. documented in this encounter Procedure Notes * Provider, Scanning - 11/12/2013 9:35 AM ESTAssociated Order(s): SCAN DOC: LAB documented in this encounter Plan of Treatment Not on file documented as of this encounter Procedures Procedure Name Priority Date/Time Associated Diagnosis Comments LAB SCAN 11/12/2013 9:35 AM EST documented in this encounter Results * SCAN DOC: LAB (11/12/2013 9:35 AM EST) Narrative 11/12/2013 9:35 AM EST Procedure Note Provider, Scanning - 11/12/2013 9:35 AM EST Scanning Provider MEDIA MGR SCAN EXT O RDR/RSLT documented in this encounter Visit Diagnoses Diagnosis Rectal cancer- Primary Malignant neoplasm of rectum documented in this encounter Care Teams Learning Facilitator Relationship Specialty Start Date End Date Randa Rosas APRN [address] [place] [address] PCP - General 12/29/12 04/16/22 documented as of this encounter
--- OUTSIDE RECORDS SUMMARY | 2024-11-18 16:59 | XMS_ITS | Encounter Summary ---
Author Organization [facility] Address [facility] [place] [address] Care Team Providers Care Propulsion Motor And Generator Repairer Name Role Phone Randa Rosas APRN Primary Care Provider +1- [phone] Reason for Visit * Reason Onset Date Comments Follow-up 06/15/2013 dye study for me diport report Encounter Details Date Type Department Care Team (Late st Contact Info) Description 06/15/2013 Telephone Hematology Oncology at [address] [phone] Chula Castorena, RN Follow-up (dye study for mediport report) Social History Tobacco Use Types Packs/Day Years [...] encounter Miscellaneous Notes * Telephone Encounter - Chula Castorena RN - 06/15/2013 2:28 PM EDT Dye study to assess patency of mediport was carried out at [facility] 06/15 and shows no evidence of obstruction or leakage from the patient's indwelling catheter. Mr. Salazar was called to let him know that his port is functional. He will need to continue the enoxaparin injections until he has completed therapy for rectal cancer. documented in this encounter Plan of Treatment Not on file documented as of this encounter Visit Diagnoses Not on filedocumented in this encounter Care Teams Propulsion Motor And Generator Repairer Relationship Specialty Start Date End Date Randa Rosas APRN [address] [place] [address] PCP - General 12/29/12 04/16/22 documented as of this encounter
--- OUTSIDE RECORDS SUMMARY | 2024-11-18 16:59 | XMS_ITS | Encounter Summary ---
Author Organization [facility] Address [facility] [place] [address] Care Team Providers Care Yard Caller Name Role Phone Randa Rosas APRN Primary Care Provider +1- [phone] Reason for Visit * Reason Comments Rectal Cancer Encounter Details Date Type Department Care Team (Late st Contact Info) Description 03/16/2014 3:30 PM EDT Follow-Up Hematology Oncology at [address] [phone] Nas Dobbs MD Rectal cancer (Primary Dx) [...] Sign Reading Time Taken Comments Blood Pressure 136/81 03/16/2014 3:33 PM EDT Pulse 70 03/16/2014 3:33 PM EDT Temperature 36.9 ??C (98.4 ??F) 03/16/2014 3:33 PM ED T Respiratory Rate 20 03/16/2014 3:33 PM EDT Oxygen Saturation 99% 03/16/2014 3:33 PM EDT Inhaled Oxygen Concentration - - Weight 107.5 kg (236 lb 15.9 oz) 03/16/2014 3:33 PM EDT Height 170.2 cm (5' 7.01) 03/16/2014 3:33 PM ED T Body Mass Index 37.11 03/16/2014 3:33 PM EDT documented in this encounter Progress Notes * Nas Dobbs MD - 03/16/2014 4:22 PM EDT Diagnosis: 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 Status post neoadjuvant chemoradiation therapy with continuous infusion 5 fluorouracil followed by a AP resection. The patient then had 8 cycles of adjuvant FOLFOX chemotherapy Subjective: Reg comes in today for followup. 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 He did need some forms filled out to give him a few days off to allow him to have followup appointments. He will be seeing Radiation Therapy, Surgery and Medical Oncology approximately every three or four months over this next year. I told him I was glad to fill those forms out for him and did so today. Overall, he is doing well as noted. In talking to him he did note a couple of episodes this winter when he was in a hurry to get out of the cold of the parking lot and ran into work. He was out of breath and felt like he had a bit of chest pain but it went away very quickly after he got indoors. We talked about the nature of angina and whether or not he should see a structural draftsman. He believes it was cold related, however, perhaps similar to some of the things he experienced on FOLFOX. He has not had recurrences of that so he would like to hold off on further evaluation. He does have a remote smoking history but he quit 15 years ago. His weight has been a problem. In general though, he is quite physically active and does not experience any exertional chest pain. He promised he would call if he has recurrent symptoms. Otherwise though, review of systems is negative with him getting used to his colostomy and having good function there. He is not having any other problems or difficulties. He is seeing the urologist for followup as he is still self cathing. Past medical history and social history are reviewed and unchanged from when I saw him 5 months ago Review of Systems Constitutional: Negative for fever, [...] supraclavicular, and axillary nodes normal Neurologic: Normal Laboratory: Review of the patient's laboratory from mid January shows a normal CMP with an alkaline phosphatase of 68. CEA had actually dropped down to 0.7 at that time. CBC showed a white count of 5.3, hemoglobin had come up to 12, hematocrit 36.6 and platelet count at 240,000. Assessment/Plan: Reg is doing well overall and is in remission. We would like to get a CT scan but he believes he is going to be getting one when he sees his surgeon for followup in a few months. We will hold off on ordering that, and if he gets one while down at [facility] for his followup we will not need to reorder that. I will see him back in three months with lab, and if necessary we can check a local CT scan at that time. Again, I discussed the nature of angina. I am not sure whether a cardiology referral would be indicated, but he would like to hold off and assures me that if he has any recurrence of chest pain symptoms he will call for a referral. I think that is a reasonable plan. As noted, we will see Reg back with lab and a CEA a few days before return in three months. He will call if other issues or problems develop. documented in this encounter Procedure Notes * Provider, Scanning - 06/27/2014 11:00 AM EDTAssociated Order(s): SCAN DOC: LAB * Provider, Scanning - 06/27/2014 9:00 AM EDTAssociated Order(s): SCAN DOC: LAB documented in this encounter Plan of Treatment Not on file documented as of this encounter Procedures Procedure Name Priority Date/Time Associated Diagnosis Comments LAB SCAN 06/27/2014 11:00 AM EDT LAB SCAN 06/27/2014 9:00 AM EDT documented in this encounter Results * SCAN DOC: LAB (06/27/2014 11:00 AM EDT) Narrative 06/27/2014 11:00 AM EDT Procedure Note Provider, Scanning - 06/27/2014 11:00 AM EDT Scanning Provider MEDIA MGR SCAN EXT O RDR/RSLT * SCAN DOC: LAB (06/27/2014 9:00 AM EDT) Narrative 06/27/2014 9:00 AM EDT Procedure Note Provider, Scanning - 06/27/2014 9:00 AM EDT Scanning Provider MEDIA MGR SCAN EXT O RDR/RSLT documented in this encounter Visit Diagnoses Diagnosis Rectal cancer- Primary Malignant neoplasm of rectum documented in this encounter Care Teams Yard Caller Relationship Specialty Start Date End Date Randa Rosas APRN [address] [place] [phone] PCP - General 12/29/12 04/16/22 documented as of this encounter
--- OUTSIDE RECORDS SUMMARY | 2024-11-18 16:59 | XMS_ITS | Encounter Summary ---
Author Organization [facility] Address [facility] [place] [address] Care Team Providers Care Office Auditor Name Role Phone Randa Rosas APRN Primary Care Provider +1- [phone] Reason for Visit * Reason Comments Rectal Cancer Encounter Details Date Type Department Care Team (Late st Contact Info) Description 06/14/2013 3:30 PM EDT Follow-Up Hematology Oncology at [address] [phone] Nas Dobbs MD Examination prior to chemotherapy (Primary Dx); Rectal cancer Discharge Disposition: Home [...] Sign Reading Time Taken Comments Blood Pressure 106/71 06/14/2013 3:13 PM EDT Pulse 103 06/14/2013 3:13 PM EDT Temperature 36.7 ??C (98.1 ??F) 06/14/2013 3:13 PM ED T Respiratory Rate 18 06/14/2013 3:13 PM EDT Oxygen Saturation 100% 06/14/2013 3:13 PM EDT Inhaled Oxygen Concentration - - Weight 96.6 kg (213 lb) 06/14/2013 3:13 PM EDT Height 170.2 cm (5' 7.01) 06/14/2013 3:13 PM ED T Body Mass Index 33.35 06/14/2013 3:13 PM EDT documented in this encounter Progress Notes * Nas Dobbs MD - 06/15/2013 9:02 AM EDT Diagnosis: 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 Status post neoadjuvant chemoradiation therapy with continuous infusion 5 fluorouracil followed by a AP resection. Subjective: Adrien is here today For followup after his surgery. He is still having a fair amount of pain in the perirectal area but is completely healed. He can sit now with a cushion. He is physically active andwalking daily. Because of the discomfort he is still not good enough to go back to work and does have about 6 or 7 weeks before he needs to consider doing so. He is here today to discuss consideration of further adjuvant therapy in the treatment of his rectal cancer. He is taking an occasional Vicodin. Otherwise he is doing well and continues on his Lovenox. Past medical history and social history are [...] his left leg it is alsocompletely healed. Extremities: Extremities normal with a healed incision, atraumatic, no cyanosis or edema Pulses: 2+ and symmetric Skin: Skin color, texture, turgor normal, there is some dry flaking and peeling on his hands and the bottoms of his feet Lymph nodes: Cervical, supraclavicular, and axillary nodes normal Neurologic: Normal [facility] Provider: JOHN MACIAS Pt. Name: ADRIEN CHEUNG Acc #: [id number] Pt. Col Date: 05/11/2013 /Sex: 1955,(57 years),Male Rec Date: 05/11/2013 LOC: [facility] SURGICAL PATHOLOGY ---Pathologic Diagnosis--- A - Rectum and anus, [...] reveal intact nuclear staining in tumor cells. In a very small percentage of tumors, there may still be an underlying hereditary defect in these DNA mismatch repair genes despite intact nuclear expression of the protein in tumor cells. Genetic counseling and/or additional workup is indicated in patients with a family history that meets current criteria for HNPCC screening. B - Left seminal vesicle, resection: Unremarkable seminal vesicle. Assessment/Plan: Adrien is doing well post resection of his stage II A. Rectal cancer. Standard therapy protocols for rectal cancer include both the addition of neoadjuvant as well as adjuvant chemotherapy. Certainly the low stage is a good prognostic sign however recommendations are made to strongly consider adjuvant therapy. Current trends are for inclusion of 8 cycles of FOLFOX chemotherapy if tolerable. Performance status nicole he is doing well. He does have a port associated clot and is on Lovenox so we need to make sure that that has improved so we can use his port for treatyment. Risks and side effects ofchemotherapy were gone over in detail. Chemotherapy teaching was done today and after discussions we have decided to go ahead with chemotherapy next week. We will schedule him for a portogram tomorrow and see him back next Thursday with plans on starting cycle 1 of 8 of FOLFOX chemotherapy. That should give him a chance to see how he is tolerating things before we make final decisions on when he can return to work. He will call if any issues or problems develop in the interim documented in this encounter Procedure Notes * Provider, Scanning - 06/15/2013 1:32 PM EDTAssociated Order(s): SCAN DOC: DIAGNOSTIC RADIOLOGY documented in this encounter Plan of Treatment Not on file documented as of this encounter Procedures Procedure Name Priority Date/Time Associated Diagnosis Comments DIAGNOSTIC RADIOLOGY SCAN 06/15/2013 1:32 PM EDT documented in this encounter Results * SCAN DOC: DIAGNOSTIC RADIOLOGY (06/15/2013 1:32 PM EDT) Anatomical Region Laterality Modality Other Narrative 06/15/2013 2:11 PM EDT Procedure Note Provider, Scanning - 06/15/2013 1:32 PM EDT Scanning Provider MEDIA MGR SCAN EXT O RDR/RSLT documented in this encounter Visit Diagnoses Diagnosis Examination prior to chemotherapy- Primary Other specified pre-operative examination Rectal cancer Malignant neoplasm of rectum documented in this encounter Care Teams Office Auditor Relationship Specialty Start Date End Date Randa Rosas APRN [address] [place] [phone] PCP - General 12/29/12 04/16/22 documented as of this encounter
--- OUTSIDE RECORDS SUMMARY | 2024-11-18 16:59 | XMS_ITS | Encounter Summary ---
Author Organization [facility] Address [facility] [place] [address] Care Team Providers Care Crew Boat Operator Name Role Phone Randa Rosas APRN Primary Care Provider +1- [phone] Reason for Visit * Reason Comments Rectal Cancer Encounter Details Date Type Department Care Team (Late st Contact Info) Description 08/09/2013 8:30 AM EDT Follow-Up Hematology Oncology at [address] [phone] Nas Dobbs MD Rectal cancer (Primary Dx) [...] Sign Reading Time Taken Comments Blood Pressure 114/64 08/09/2013 8:37 AM EDT Pulse 91 08/09/2013 8:37 AM EDT Temperature 36.6 ??C (97.9 ??F) 08/09/2013 8:37 AM ED T Respiratory Rate 18 08/09/2013 8:37 AM EDT Oxygen Saturation 98% 08/09/2013 8:37 AM EDT Inhaled Oxygen Concentration - - Weight 96.6 kg (213 lb) 08/09/2013 8:37 AM EDT Height 170.2 cm (5' 7.01) 08/09/2013 8:37 AM ED T Body Mass Index 33.35 08/09/2013 8:37 AM EDT documented in this encounter Progress Notes * Nas Dobbs MD - 08/09/2013 8:24 AM EDT Diagnosis: 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 Status post neoadjuvant chemoradiation therapy with continuous infusion 5 fluorouracil followed by a AP resection. Subjective: Reg is here today for cycle # 4 of FOLFOX chemotherapy.his treatment was held last week as he was still on antibiotics for another urinary tract infection. He still has a post void residual and in that regard he is continuing to catheter himself on occasion. Without cathing he does have some nocturnal incontinence. He is now off antibiotics and not having any other urinary symptoms, fevers, chills, or other signs of infection. Review systems is otherwise negative and he is not having any problems with neuropathy. Cold intolerance continues to be tolerable. Past medical history and social history are reviewed and He is doing reasonably well with the assistance of his /girlfriend with the colostomy. He is going back to work for his first day tomorrow. He has gloves to use when working with metal. Review of Systems Constitutional: Negative for fever, [...] Neurologic: Normal His white count today is I. 0.7 hemoglobin 9.6 hematocrit 30.4 and platelet count is 417. His absolute neutrophil count is 4.1. CMP is completely normal with a creatinine of 0.8 and normal liver tests. Assessment/Plan: Reg is doing well post resection of his stage II A. rectal cancer. He is continuing to doing exceptionally well with the treatment and is not having really any serious sequelae. We'll go ahead with cycle 4 today as planned and see him back in 2 weeks for cycle 5 of 8 planned treatments. He'll callif issues or problems develop in the interim. documented in this encounter Procedure Notes * Provider, Scanning - 08/09/2013 8:43 AM EDTAssociated Order(s): SCAN DOC: LAB documented in this encounter Plan of Treatment Not on file documented as of this encounter Procedures Procedure Name Priority Date/Time Associated Diagnosis Comments LAB SCAN 08/09/2013 8:43 AM EDT documented in this encounter Results * SCAN DOC: LAB (08/09/2013 8:43 AM EDT) Narrative 08/09/2013 8:43 AM EDT Procedure Note Provider, Scanning - 08/09/2013 8:43 AM EDT Scanning Provider MEDIA MGR SCAN EXT O RDR/RSLT documented in this encounter Visit Diagnoses Diagnosis Rectal cancer- Primary Malignant neoplasm of rectum documented in this encounter Care Teams Crew Boat Operator Relationship Specialty Start Date End Date Randa Rosas APRN [address] [place] [address] PCP - General 12/29/12 04/16/22 documented as of this encounter
--- OUTSIDE RECORDS SUMMARY | 2024-11-18 16:59 | XMS_ITS | Encounter Summary ---
Author Organization [facility] Address [facility] [place] [address] Care Team Providers Care Parking Meter Attendant Name Role Phone Randa Rosas APRN Primary Care Provider +1- [phone] Reason for Visit * Reason Comments Radiation Follow-up rectal cancer Encounter Details Date Type Department Care Team (Late st Contact Info) Description 07/07/2013 2:00 PM EDT Follow-Up Radiation Oncology at [address] [phone] Mary Woodruff, Nas Marion MD Rectal cancer (Primary Dx) Discharge Disposition: [...] as of this encounter Progress Notes * Mary Woodruff APRN - 07/07/2013 1:21 PM EDT Identification: Mr.Mark Lux Salazar is a very pleasant 57-year-old male with low lying adenocarcinoma of the rectum 2 cm from the anal verge and extending to the rectosigmoid junction. He has no evidence of metastases. HPI: adenocarcinoma of the rectum T3 N1 stage II A.Mr.Mark Lux Salazar is a very pleasant 57-year-old male who was recently diagnosed with rectal adenocarcinoma. The patient presented with diarrhea not responding to symptomatic management. Colonoscopy showed a near circumferential mass extending just above the anal verge up to 10 cm inside the rectum. Additionally a polyp was found at 16 cm. 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 The polyp was not removed. CT scan of the chest abdomen and pelvis in [place] was read out as completely negative. The patient denied rectal bleeding. He has persistent perineal heaviness with difficulty in moving his bowels. He had no urinary symptoms. Consultation was done with Dr Richie Brady and with medical oncology and he was treated with neoadjuvant chemoradiation. Radiation therapy was delivered with concomitant continuous-infusion 5-FU. Radiation therapy was started on 01/18/2013 Radiation therapy was completed on 02/25/2013 Radiation Therapy: The pelvis received a total of 45 Gy at 1.8 Gy per fraction using four-field box technique. The gross tumor volume received an additional 5.4 Gy at 1.8 Gy per fraction using 3-D conformal planning. Total dose delivered to the tumor was 50.4 Gy. Treatment was delivered with a full bladder. Chemo/radiation was followed by surgery which took place 05/11/2013 and was as follows: Procedure(s): @LAPAROSCOPIC PROCTECTOMY, COMPLETE, APR W COLOSTOMY @LYMPHADENECTOMY,ABDOMINAL,REGIONAL,MULTIPLE NODES @EXCLUSION OF SMALL INTESTINE FROM PELVIS FLAP, MYOCUTANEOUS OR FASCIOCUTANEOUS, LOWER EXTREMITY ADJ.TISSUE TRANSFER, REARRANGEMENT, 10.1 TO 30 SQ.CM, LEGS CYSTO, STENT PLACEMENT INTRAOP, TEMPORARY @OMENTAL FLAP, INTRA-ABDOMINAL Surgical pathology: Specific site: Distal rectum. Tumor size (greatest [...] expression of the protein in tumor cells. Patient Active Problem List Diagnosis Code ??? Rectal cancer 154.1 ??? Diabetes mellitus 250.00 ??? Obesity (BMI 35.0-39.9 without comorbidity) 278.00 ??? Hypertension 401.9 ??? Snoring 786.09 ??? Colostomy in place V44.3 ??? Colostomy in place V44.3 Past Surgical History Procedure Date ??? Colonoscopy 12/17/2012 discovered rectal invasive adenocarcinoma ??? Nasal polyp surgery ??? Tonsillectomy and adenoidectomy ??? Vasectomy ??? Pilonidal cyst excision ??? Lap, surg proctectomy w colostomy 05/11/2013 @LAPAROSCOPIC PROCTECTOMY, COMPLETE, APR W COLOSTOMY performed by Bobby Hills MD at [facility] OR ??? Remove abd lymph nodes rad regnl 05/11/2013 @LYMPHADENECTOMY,ABDOMINAL,REGIONAL,MULTIPLE NODES performed by Bobby Hills MD at [facility] OR ??? Exclusion, small bowel from pelvis 05/11/2013 @EXCLUSION OF SMALL INTESTINE FROM PELVIS performed by Bobby Hills MD at [facility] OR ??? Muscle-skin flap, leg 05/11/2013 FLAP, MYOCUTANEOUS OR FASCIOCUTANEOUS, LOWER EXTREMITY performed by Oscar Soto MD at [facility] OR ??? Adj tiss xfer scalp, extrem 10.1-30 05/11/2013 ADJ.TISSUE TRANSFER, REARRANGEMENT, 10.1 TO 30 SQ.CM, LEGS performed by Oscar Soto MD at [facility] OR ??? Cystoscopy, insert ureteral stent 05/11/2013 CYSTO, STENT PLACEMENT INTRAOP, TEMPORARY performed by Mark Khan MD at [facility] OR ??? Omental flap, intra-abdominal 05/11/2013 @OMENTAL FLAP, INTRA-ABDOMINAL performed by Mark Khan MD at [facility] OR Allergies Allergen Reactions ??? Penicillins RASH Current Outpatient Prescriptions on File Prior to Visit Medication Status Sig Dispense Refill ??? OXYcodone-acetaminophen (PERCOCET) 5-325 mg per tablet Active Take 1 tablet by mouth every 6 hours as needed for Pain. 180 tablet 0 ??? enoxaparin (LOVENOX) 150 mg/mL Syrg injection Active 150 mg sc daily 30 Syringe 5 ??? metFORMIN (GLUCOPHAGE) 500 mg tablet Active Take 1 tablet by mouth 2 times daily (with meals). Crush and take with your meal 60 tablet 1 ??? lisinopril (PRINIVIL;ZESTRIL) 10 mg tablet Active Take 10 mg by mouth 2 times daily. ??? atorvastatin (LIPITOR) 40 mg tablet Active Take 20 mg by mouth daily. 12/01 tab= 20mg ??? glipiZIDE (GLUCOTROL) 10 mg 24 hr tablet Active Take 10 mg by mouth daily. ??? multivitamin (THERAGRAN) tablet Active Take 1 tablet by mouth daily. ??? sildenafil (VIAGRA) 100 mg tablet Active Take 100 mg by mouth as needed. ??? INDOMETHACIN ORAL Active Take by mouth. Advance Directive: On file Interim History: Mr Salazar reports that he is doing well at this time. He denies any difficulty with his ostomy. Hedenies any hematochezia and melena. He is continuing chemotherapy under the care of Dr Dobbs and is tolerating this well. He indicates that he is looking forward to being done with all of his treatment. He has no complaints other than mild fatigue and ongoing discomfort in the perirectal area that hasbeen present since surgery. . See ROS Review of Systems Constitutional: Negative for fever, chills, activity change, fatigue and unexpected weight change. HENT: Negative for sore throat, mouth sores and trouble swallowing. Eyes: no vision complaints. Respiratory: Negative for cough, shortness of breath and wheezing. Cardiovascular: Negative for chest pain, palpitations and leg swelling. Gastrointestinal: Negative for nausea, vomiting. He continues with perirectal pain though he does not need to sit on his special pillow all the time any more. He denies any discharge or sores in the perirectal area. His ostomy is functioning well. Stool is soft, not formed. Skin around ostomy intact. He uses a stool softener and metamucil to manage regular bowel function. No abdominal pain Genitourinary: Negative for dysuria. He continues to self cath twice a day due to residuals. He denies difficulty doing procedure. Residuals are about 2 oz. He will continue self cath until evaluation by urologist. Musculoskeletal: Negative. Skin: Negative. Neurological: Negative. Hematological: no bruising or bleeding. Oncology Vitals 07/07/2013 Weight Height BSA (Calculated - sq m) BMI (Calculated) Temp 98.4 Temp src 1 Pulse 89 Heart Rate Source NIBP Resp 18 BP 101/67 BP Location Left arm Patient Position Sitting SpO2 100 Pain Level 4 Karnofsky Score Physical Exam: Head: Normocephalic, without obvious abnormality, atraumatic Back: Symmetric, no curvature, ROM normal, no [...] leg it is alsocompletely healed. Colostomy is fine. Stool soft. Extremities: Extremities normal with a healed incision, atraumatic, no cyanosis or edema Skin: Skin color, texture, turgor normal, there is some dry flaking and peeling on his hands and the bottoms of his feet . Skin in the perirectal area is slightly red but with no breakdown, no discharge, no tenderness. Lymph nodes: Cervical, supraclavicular, and axillary nodes normal Neurologic: Normal Discussion/Plan: adenocarcinoma of the rectum T3 N1 stage II A.: Mr Salazar was treated with chemoradiation for stage IIa cancer of the rectum followed by resectionon 05/11/2013. He now continues FOLFOX chemotherapy under the care of Dr Dobbs. He received cycle two of eight today and has tolerated this well. He has had a good recovery from radiation therapy. Hehas an ostomy which is functioning well and which he is able to manage independently. He will continue chemotherapy under Dr Dobbs. We will plan follow up in radiation oncology in fourmonths. documented in this encounter Plan of Treatment Not on file documented as of this encounter Visit Diagnoses Diagnosis Rectal cancer- Primary Malignant neoplasm of rectum documented in this encounter Care Teams Parking Meter Attendant Relationship Specialty Start Date End Date Randa Rosas APRN [address] [place] [address] PCP - General 12/29/12 04/16/22 documented as of this encounter
--- OUTSIDE RECORDS SUMMARY | 2024-11-18 16:59 | XMS_ITS | Encounter Summary ---
Author Organization [facility] Address [facility] [place] [address] Care Team Providers Care Outreach Director Name Role Phone Randa Rosas APRN Primary Care Provider +1- [phone] Reason for Visit * Reason Comments Follow Up Surgery thigh flap/rectal ca ncer Encounter Details Date Type Department Care Team (Late st Contact Info) Description 05/30/2013 11:00 AM EDT Office [place] [address] Oscar Soto MD [facility] [place] [address] Rectal cancer (Primary Dx) Discharge Disposition: Home [...] on file documented as of this encounter Patient Instructions * Patient Instructions* Ioana Roca - 05/30/2013 11:47 AM EDT 1. F/U PRN 2. OK to shower and wash 3. OK to sit 4. Continue good nutrition high in prootein 5. Continue to limit activity until 6 weeks post op, ok to go on walks. documented in this encounter Progress Notes * Oscar Soto MD - 05/30/2013 11:15 AM EDT PLASTIC SURGERY POST OP NOTE Oscar Soto MD Primary Care Physician: RANDA ROSAS APRN Reason for visit: F/U status post Gracilis flap to the pelvis. Date of surgery: 05/11/13 Procedure(s): RECTAL CANCER Procedure(s): LAPAROSCOPIC PROCTECTOMY, COMPLETE, APR W COLOSTOMY LYMPHADENECTOMY,ABDOMINAL,REGIONAL,MULTIPLE NODES EXCLUSION OF SMALL INTESTINE FROM PELVIS FLAP, MYOCUTANEOUS OR FASCIOCUTANEOUS, LOWER EXTREMITY ADJ.TISSUE TRANSFER, REARRANGEMENT, 10.1 TO 30 SQ.CM, LEGS CYSTO, STENT PLACEMENT INTRAOP, TEMPORARY OMENTAL FLAP, INTRA-ABDOMINAL Complications: None reported Interval History: Reg Salazar is unaccompanied for his visit today. He has been well since his discharge, he denies any drainage or discharge from the wound. .He is ambulating . Meds: Current Outpatient Prescriptions on File Prior to Visit Medication Sig Dispense Refill ??? tamsulosin (FLOMAX) 0.4 mg capsule Take 1 capsule by mouth daily. 60 tablet 3 ??? metFORMIN (GLUCOPHAGE) 500 mg tablet Take 1 tablet by mouth 2 times daily (with meals). Crush and take with your meal 60 tablet 1 ??? enoxaparin (LOVENOX) 150 mg/mL Syrg injection 150 mg sc daily 30 Syringe 0 ??? metoclopramide (REGLAN) 5 mg tablet Take 1 tablet by mouth 4 times daily. 40 tablet 0 ??? lisinopril (PRINIVIL;ZESTRIL) 10 mg tablet Take [...] daily. ??? INDOMETHACIN ORAL Take by mouth. All: Penicillins Examination: Gen: WDWN, NAD Neuro: Alert, oriented, follows, Ambulates. Perineal Incision: CDI, healing well. L thigh incision intact. No fluid collection. No collection, no erythema, no evidence of cellulitis. Impression: Reg Salazar is a 57 y.o. male was seen today for follow-up after the above procedure. Please seethe operative note for details. He is doing well without complaints. Will liberalize to sitting. Ambulating well. Will need to maintain nutrition. Plan: 1. F/U PRN 2. OK to shower and wash 3. OK to sit 4. Continue good nutrition high in prootein 5. Continue to limit activity until 6 weeks post op, ok to go on walks. I, Ioana Roca, am acting as scribe for Dr Soto. All work documented was performed by Dr Soto. ???I performed the above scribed service and agree with the accuracy of the note?? Oscar Soto MD documented in this encounter Plan of Treatment Not on file documented as of this encounter Visit Diagnoses Diagnosis Rectal cancer- Primary Malignant neoplasm of rectum documented in this encounter Care Teams Outreach Director Relationship Specialty Start Date End Date Randa Rosas APRN [address] [place] [phone] PCP - General 12/29/12 04/16/22 documented as of this encounter
--- OUTSIDE RECORDS SUMMARY | 2024-11-18 16:59 | XMS_ITS | Encounter Summary ---
Author Organization [facility] Address [facility] [place] [address] Care Team Providers Care Screen Tender Helper Name Role Phone Randa Rosas VALENTIN Primary Care Provider +1- [phone] Reason for Visit * Reason Comments Other 5FU disconnect Encounter Details Date Type Department Care Team (Late st Contact Info) Description 06/23/2013 2:30 PM EDT Office Visit Hematology Oncology at [address] [phone] CLINIC, DR OQUENDO HEM/ONC Rectal cancer (Primary Dx) Discharge Disposition: Home [...] Sign Reading Time Taken Comments Blood Pressure 129/79 06/23/2013 12:05 PM EDT Pulse 89 06/23/2013 12:05 PM EDT Temperature 36.8 ??C (98.2 ??F) 06/23/2013 12:05 PM E DT Respiratory Rate 20 06/23/2013 12:05 PM EDT Oxygen Saturation 96% 06/23/2013 12:05 PM EDT Inhaled Oxygen Concentration - - Weight - - Height - - Body Mass Index - - documented in this encounter Progress Notes * Slime Wilhelm RN - 06/23/2013 1:30 PM EDT INFUSION THERAPY ADMINISTRATION NOTES TIME TREATMENT STARTED: 1205 TIME TREATMENT ENDED: 1230 DIAGNOSIS:Rectal Cancer PROTOCOL: no REASON FOR VISIT: Discontinue 5FU home infusion and deaccess mediport SUBJECTIVE Reg Salazar Does rate rectal pain now 6/10. States last took pain pill last night and has not taken any yet today as he had to drive here to be disconnected from pump. He will take it when he getshome. He states he was taking vicodin, but does not feel it is affective as percocet and asked if Dr. Dobbs would be willing to write new script for percocet for him. He states he takes up to one tablet 3 times/day depending on how active I am. He is careful not to take prior to driving. Reported to Dr. Dobbs and new script written. OBJECTIVE: VITAL SIGNS: BP 129/79 Pulse 89 Temp(Src) 36.8 ??C (98.2 ??F) (Oral) Resp 20 SpO2 96% REACTIONS (DESCRIPTION, TIME, INTERVENTION AND EFFECTIVENESS) none ASSESSMENT Reg Salazar was awake, alert and he tolerated treatment well. PLAN Return to clinic per routine. documented in this encounter Plan of Treatment Not on file documented as of this encounter Visit Diagnoses Diagnosis Rectal cancer- Primary Malignant neoplasm of rectum documented in this encounter Care Teams Screen Tender Helper Relationship Specialty Start Date End Date Randa Rosas APRN [address] [place] [address] PCP - General 12/29/12 04/16/22 documented as of this encounter
--- OUTSIDE RECORDS SUMMARY | 2024-11-18 16:59 | XMS_ITS | Encounter Summary ---
Author Organization [facility] Address [facility] [place] [address] Care Team Providers Care Carpenter Packing Name Role Phone Randa Rosas APRN Primary Care Provider +1- [phone] Reason for Visit * Reason Comments Chemotherapy Encounter Details Date Type Department Care Team (Late st Contact Info) Description 10/05/2013 10:00 AM EST Office Visit Hematology Oncology at [address] [phone] CLINIC, DR OQUENDO HEM/ONC Rectal cancer (Primary [...] as of this encounter Progress Notes * Miriam Dubois RN - 10/05/2013 11:29 AM EST TIME TREATMENT STARTED: 1010 TIME TREATMENT ENDED: 1515 Reg Salazar, 58 y.o. male with diagnosis of rectal cancer is here for chemotherapy infusion of folfox. PROTOCOL: no CYCLE: 8 DAY: 1 S: Pt. offers no complaints at this time. O: Chemotherapy orders independently verified for correct drug name, route and dosage per patient'sheight, weight and BSA by Miriam Dubois RN and onsite pharmacist. 5-fu pump checked by this nurseand Sunitha Matias RN. Pump running appropriately upon patient leaving clinic. REACTIONS (DESCRIPTION, TIME, INTERVENTION AND EFFECTIVENESS) none A: Pt. Tolerated treatment well. Reg Salazar confirms that all questions and issues have been addressed. P: Return to clinic as scheduled Thursday for pump disconnect. * Cortez Caceres RPH - 10/05/2013 10:52 AM EST * Pharmacist Waste Documentation * Drug: oxaliplatin Date Administered: 10/05/13 (mm/dd/yy) Time: 1000 Amount Pharmacy Discarded: 18 mg documented in this encounter Plan of Treatment Not on file documented as of this encounter Visit Diagnoses Diagnosis Rectal cancer- Primary Malignant neoplasm of rectum documented in this encounter Administered Medications Inactive Administered Medications - up to 3 most recent administrations Medication Order MAR Action Action Date Dose Rate Site alteplase (CATHFLO) injection 2 mg 2 mg, INTRA-CATHETER, ONCE, 1 dose, On Thu10/05/13 at 1615, Instill into occluded lumen as directed., Routine Given 10/05/2013 10:20 AM EST 2 mg dexamethasone (DECADRON) tablet 10 mg 10 mg, Oral, ONCE, 1 dose, On Thu10/05/13 at 1000, Pre chemo, Routine Given 10/05/2013 10:30 AM EST 10 mg fluorouracil (ADRUCIL) chemo injection 855 mg 855 mg, Intravenous, ONCE, 1 dose, On Thu10/05/13 at 1000, Administer over 5 Minutes Given 10/05/2013 2:44 PM EST 855 mg 205.2 mL/hr fosaprepitant (EMEND) 150 mg in sodium chloride 0.9% 155 mL infusion 150 mg, Intravenous, ONCE, 1 dose, On Thu10/05/13 at 1000, Administer over 30 Minutes, Pre chemo New Bag 10/05/2013 11:25 AM EST 150 mg 310 mL/hr leucovorin 43 mg in dextrose 5% 504.3 mL infusion 43 mg, Intravenous, ONCE, 1 dose, On Thu10/05/13 at 1000, Administer over 120 Minutes New Bag 10/05/2013 12:18 PM EST 43 mg 252.2 mL/hr OXALIplatin (ELOXATIN) 182 mg in dextrose 5% 286.4 mL chemo infusion 182 mg, Intravenous, ONCE, 1 dose, On Thu10/05/13 at 1000, Administer over 120 Minutes, Vesicant/irritant. Avoid extravasation. Compatible with dextrose-containing solution only. New Bag 10/05/2013 12:18 PM EST 182 mg 143.2 mL/hr palonosetron (ALOXI) injection 0.25 mg 0.25 mg, Intravenous, ONCE, 1 dose, On Thu10/05/13 at 1000, Pre chemo, Routine Given 10/05/2013 11:20 AM EST 0.25 mg documented in this encounter Care Teams Carpenter Packing Relationship Specialty Start Date End Date Randa Rosas APRN [address] [place] [phone] PCP - General 12/29/12 04/16/22 documented as of this encounter
--- OUTSIDE RECORDS SUMMARY | 2024-11-18 16:59 | XMS_ITS | Encounter Summary ---
Author Organization [facility] Address [facility] [place] [address] Care Team Providers Care Elementary Librarian Name Role Phone Randa Rosas VALENTIN Primary Care Provider +1- [phone] Reason for Visit * Reason Comments Chemotherapy FOLFOX Cycle 2 Encounter Details Date Type Department Care Team (Late st Contact Info) Description 07/05/2013 9:00 AM EDT Office Visit Hematology Oncology at [address] [phone] CLINIC, DR OQUENDO HEM/ONC Rectal cancer (Primary [...] as of this encounter Progress Notes * Lindsay Kenny - 07/05/2013 2:22 PM EDT * Pharmacist Waste Documentation * Drug: oxaliplatin Date Administered: 07/05/13 (mm/dd/yy) Time: 0930 Amount Pharmacy Discarded: 18 mg * Slime Wilhelm RN - 07/05/2013 9:02 AM EDT INFUSION THERAPY ADMINISTRATION NOTES DIAGNOSIS: Colorectal Cancer CYCLE #: 2 REASON FOR VISIT: FOLFOX infusion and initiation of continunous home 5FU infusion via CADD pump provided by [facility] SUBJECTIVE Mr. Salazar offers no complaints. He states he felt well after first cycle. Denies any nausea and vomiting. Did have some intolerance to cold x 5 days which has resolved now. Denies any pain. OBJECTIVE LAB DATA: Labs from today at [facility] reviewed and found adequate for treatment. Pre administration: Chemotherapy orders independently verified for drug name, route, and dosage per patient's height, weight and BSA by Slime Wilhelm RN and Virginia Madrigal RN. At time of administration Patient identity verified using patient's name and date of at the chair/bedside with GET Reyes and Virginia Madrigal RN just prior to initiating the patient's home infusion chemotherapy via CADD pump provided by [facility]. Fluorouracil 5125mg over 46 hours, IV via CADD pump s tarted at 1228. Pump verified at 1243 by Slime Wilhelm RN and Virginia Madrigal RN and 0.8 cc had infused. REACTIONS (DESCRIPTION, TIME, INTERVENTION AND EFFECTIVENESS) none ASSESSMENT Reg was awake, alert and he tolerated treatment well. PLAN Return to clinic in two days of 5fu disconnect documented in this encounter Plan of Treatment Not on file documented as of this encounter Visit Diagnoses Diagnosis Rectal cancer- Primary Malignant neoplasm of rectum documented in this encounter Administered Medications Inactive Administered Medications - up to 3 most recent administrations Medication Order MAR Action Action Date Dose Rate Site dexamethasone (DECADRON) injection 10 mg 10 mg, Intravenous, ONCE, 1 dose, On Thu07/05/13 at 0900, Pre chemo, Routine Given 07/05/2013 9:15 AM EDT 10 mg fluorouracil (ADRUCIL) chemo injection 855 mg 855 mg, Intravenous, ONCE, 1 dose, On Thu07/05/13 at 0900, Administer over 5 Minutes Given 07/05/2013 12:11 PM EDT 855 mg 205.2 mL/hr fosaprepitant (EMEND) 150 mg in sodium chloride 0.9% 155 mL infusion 150 mg, Intravenous, ONCE, 1 dose, On Thu07/05/13 at 0900, Administer over 30 Minutes, Pre chemo New Bag 07/05/2013 9:20 AM EDT 150 mg 310 mL/hr leucovorin 43 mg in dextrose 5% 504.3 mL infusion 43 mg, Intravenous, ONCE, 1 dose, On Thu07/05/13 at 0900, Administer over 120 Minutes New Bag 07/05/2013 10:00 AM EDT 43 mg 252.2 mL/hr OXALIplatin (ELOXATIN) 182 mg in dextrose 5% 286.4 mL chemo infusion 182 mg, Intravenous, ONCE, 1 dose, On Thu07/05/13 at 0900, Administer over 120 Minutes, Vesicant/irritant. Avoid extravasation. Compatible with dextrose-containing solution only. New Bag 07/05/2013 10:00 AM EDT 182 mg 143.2 mL/hr palonosetron (ALOXI) injection 0.25 mg 0.25 mg, Intravenous, ONCE, 1 dose, On Thu07/05/13 at 0900, Pre chemo, Routine Given 07/05/2013 9:19 AM EDT 0.25 mg documented in this encounter Care Teams Elementary Librarian Relationship Specialty Start Date End Date Randa Rosas APRN [address] [place] [address] PCP - General 12/29/12 04/16/22 documented as of this encounter
--- OUTSIDE RECORDS SUMMARY | 2024-11-18 16:59 | XMS_ITS | Encounter Summary ---
Author Organization [facility] Address [facility] [place] [address] Care Team Providers Care Increment Manager Name Role Phone Randa Rosas APRN Primary Care Provider +1- [phone] Reason for Visit * Reason Comments Rectal Cancer Encounter Details Date Type Department Care Team (Late st Contact Info) Description 08/24/2013 9:00 AM EDT Follow-Up Hematology Oncology at [address] [phone] Nas Dobbs MD Renaudette, Kristal S, RN Rectal cancer (Primary Dx); Pain Discharge Disposition: Home Social History Tobacco Use [...] Sign Reading Time Taken Comments Blood Pressure 117/73 08/24/2013 8:37 AM EDT Pulse 85 08/24/2013 8:37 AM EDT Temperature 36.6 ??C (97.9 ??F) 08/24/2013 8:37 AM ED T Respiratory Rate 18 08/24/2013 8:37 AM EDT Oxygen Saturation 97% 08/24/2013 8:37 AM EDT Inhaled Oxygen Concentration - - Weight 98.7 kg (217 lb 8 oz) 08/24/2013 8:37 AM EDT Height 170.2 cm (5' 7.01) 08/24/2013 8:37 AM ED T Body Mass Index 34.06 08/24/2013 8:37 AM EDT documented in this encounter Progress Notes * Nas Dobbs MD - 08/24/2013 9:15 AM EDT Diagnosis: 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 Status post neoadjuvant chemoradiation therapy with continuous infusion 5 fluorouracil followed by a AP resection. Subjective: Reg is here today for cycle # 5 of FOLFOX chemotherapy. He's been doing well at work although he has been fairly achy at times. In talking to him he is using a nonsteroidal anti-inflammatory intermittently and I suggested he might feel a bit better if he uses it a bit more regularly. Other than that he is tolerating working with metal fine as far as his cold intolerance goes. He does note for a few days and some difficulty with cold her temperatures and tingling in his hands and fingers when he goes out in the cold without close. As it gets cold her he will probably have to use gloves. We discussed that today. Otherwise review systems is essentially negative with no nausea or vomiting or other problems such as diarrhea or cold mouth. Review of Systems Constitutional: Negative for fever, [...] normal Neurologic: Normal His white count today is5.28 hemoglobin 10.2 platelet count is 259. CMP shows a creatinine of 0.8 random glucose of 206 and normal liver tests. Assessment/Plan: Reg is doing well post resection of his stage II A. rectal cancer. He is continuing to doing exceptionally well with the treatment and is not having really any serious sequelae. We'll go ahead with cycle 5 today as planned and see him back in 2 weeks for cycle 5 of 8 planned treatments. He will remain on Lovenox till his port is out a few weeks after the end of chemotherapy. I told my plans wereto continue the Lovenox for one week after discontinuing his port. I also would not remove the portuntil his platelet count was in the normal range. I suspect though since his platelets are fine today that may not be part of the equation we'll schedule her for cycle #6 in 2 weeks with a CBC and CMP drawn from his port. I'll see him back then for cycle 72 weeks after that.He'll call if issues or problems develop in the interim. documented in this encounter Procedure Notes * Provider, Scanning - 08/24/2013 9:09 AM EDTAssociated Order(s): SCAN DOC: LAB documented in this encounter Miscellaneous Notes * Miscellaneous - Provider, Scanning - 08/24/2013 2:42 PM EDT * Addendum Note - Chula Murphy RN - 08/24/2013 9:38 AM EDTAddended by: CHULA MURPHY on: 08/24/2013 09:38 AM Modules accepted: Orders documented in this encounter Plan of Treatment Not on file documented as of this encounter Procedures Procedure Name Priority Date/Time Associated Diagnosis Comments LAB SCAN 08/24/2013 9:09 AM EDT documented in this encounter Results * SCAN DOC: LAB (08/24/2013 9:09 AM EDT) Narrative 08/24/2013 9:09 AM EDT Procedure Note Provider, Scanning - 08/24/2013 9:09 AM EDT Scanning Provider MEDIA MGR SCAN EXT O RDR/RSLT documented in this encounter Visit Diagnoses Diagnosis Rectal cancer- Primary Malignant neoplasm of rectum Pain Generalized pain documented in this encounter Care Teams Increment Manager Relationship Specialty Start Date End Date Randa Rosas APRN [address] [place] [address] PCP - General 12/29/12 04/16/22 documented as of this encounter
--- OUTSIDE RECORDS SUMMARY | 2024-11-18 16:59 | XMS_ITS | Encounter Summary ---
Author Organization [facility] [place] [address] Care Team Providers Care Rougher Machine Operator Name Role Phone Randa Rosas APRN Primary Care Provider +1- [phone] Encounter Details Date Type Department Care Team (Late st Contact Info) Description 09/13/2013 Orders [place] [phone] Michelle Cox PA [address] [place] [address] Rectal cancer (Primary Dx) Social History Tobacco [...] as of this encounter Results * CEA (09/13/2014 5:32 PM EDT) Carcinoembryonic Antigen 1.7 <=3.8 ng/mL [facility] Comment: Reference range: ??(20-69 years): Non-smoker: ??less than or equal to 3.8 ng/mL Smoker: ??less than 5.5 ng/ml Blood specimen (specimen) 09/13/2014 5:32 PM EDT 09/13/2014 5:39 PM EDT Narrative Resulting Agency Comment Spec In Lab Bobby Hills MD CHEMISTRY ORDERABLES [facility] documented in this encounter Visit Diagnoses Diagnosis Rectal cancer- Primary Malignant neoplasm of rectum documented in this encounter Care Teams Rougher Machine Operator Relationship Specialty Start Date End Date Randa Rosas APRN [address] [place] [address] PCP - General 12/29/12 04/16/22 documented as of this encounter
--- OUTSIDE RECORDS SUMMARY | 2024-11-18 16:59 | XMS_ITS | Encounter Summary ---
Author Organization [facility] Address [facility] [place] [address] Care Team Providers Care Apartment Hotel Manager Name Role Phone Randa Rosas APRN Primary Care Provider +1- [phone] Encounter Details Date Type Department Care Team (Late st Contact Info) Description 05/09/2014 9:30 AM EDT Office Visit Urology at [facility] [place] [phone] Male erectile dysfunction (Primary Dx); Neurogenic bladder Social History Tobacco Use Types [...] Sign Reading Time Taken Comments Blood Pressure 101/60 05/09/2014 9:50 AM EDT Pulse 92 05/09/2014 9:50 AM EDT Temperature - - Respiratory Rate - - Oxygen Saturation - - Inhaled Oxygen Concentration - - Weight 104.3 kg (230 lb) 05/09/2014 9:50 AM EDT Height 170.2 cm (5' 7) 05/09/2014 9:50 AM EDT Body Mass Index 36.02 05/09/2014 9:50 AM EDT documented in this encounter Progress Notes * Junie Dominguez MD - 05/09/2014 9:50 AM EDT Reason for Visit:Reg Salazar is a 58 y.o. male who is here for urodynamics and a discussion of treatment options. Reg has a history of A neurogenic bladder. He had a prior APR. He was cathing twice per day but had high volumes. He caths more often now and rarely voids on his own. He recently had a UTI and had more incontinence during that time. He is continent now. This is .his first study. He also has ED and has used viagra without success. He is interested in trying injection therapy. OBJECTIVE: Well looking male in no acute distress. Vital signs: see flow sheet PVR: 150 cc measured when the urodynamic catheter was inserted, immediately after the patient had voided. Dipstick Urinalysis: neg URODYNAMICS/Injection of Contrast: The patient was filled with cystograffin at a rate of 50ml/min. via a 10 Fr urodynamic catheter in the urethra and EMG pads placed on the perineum. 500 ml of high osmolar contrast was instilled. 100 ml were wasted. Cystogram: mGy:14.9; mGym2:0.268; fluoro time 0.6 minutes Indication:neurogenic bladder Findings: Adequate views of the bladder at rest, during filling, at capacity and after emptying were obtained with fluoroscopy. Imaging revealed a smooth bladder with the bladder neck closed at rest. Interpretation: normal cystogram. I supervised the above listed procedure and interpreted the findings. Foreign Language Stenographer imaging was saved. Simple Cystometrogram: The bladder pressure was stable to a volume of 500 ml. There was normal compliance. The DLPP was not measured. Filling sensation was abnormal. He had a slight urge to cath at 500 ml. Bladder capacity: 500 ml Pressure Flow: The patient was given permission to void and Was unable to generate a bladder contraction. Pad EMG: EMG activity was unremarkable during filling and attempted emptying. I was present for the pertinent portions of the urodynamics. I reviewed the results with the patient following the procedure. I reviewed and edited the final report which is in the chart. IMPRESSION: pt with a history of an APR with a neurogenic bladder and ED. PLAN: He will continue to cath. We also discussed a vacumn device or triple P injections. 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 RTC for repeat UDS in 1 yr. documented in this encounter Plan of Treatment Not on file documented as of this encounter Visit Diagnoses Diagnosis Male erectile dysfunction- Primary Impotence of organic origin Neurogenic bladder Neurogenic bladder, NOS documented in this encounter Care Teams Apartment Hotel Manager Relationship Specialty Start Date End Date Randa Rosas APRN [address] [place] [address] PCP - General 12/29/12 04/16/22 documented as of this encounter
--- OUTSIDE RECORDS SUMMARY | 2024-11-18 16:59 | XMS_ITS | Encounter Summary ---
Author Organization [facility] Address [facility] [place] [address] Care Team Providers Care Cylinder Press Operator Helper Name Role Phone Randa Rosas APRN Primary Care Provider +1- [phone] Reason for Visit * Reason Comments Chemotherapy FOLFOX cycle 7 Encounter Details Date Type Department Care Team (Late st Contact Info) Description 09/21/2013 10:30 AM EDT Office Visit Hematology Oncology at [address] [phone] CLINIC, DR OQUENDO HEM/ONC Rectal cancer (Primary [...] as of this encounter Progress Notes * Slime Wilhelm RN - 09/21/2013 4:31 PM EDT INFUSION THERAPY ADMINISTRATION NOTES DIAGNOSIS: Rectal Cancer CYCLE #: 7 REASON FOR VISIT: FOLFOX infusion and initiation of continunous home 5FU infusion via CADD pump provided by [employer] [facility] SUBJECTIVE Mr. Salazar offers no complaints. OBJECTIVE LAB DATA: Labs reviewed and found adequate for treatment. Pre administration: Chemotherapy orders independently verified for drug name, route, and dosage per patient's height, weight and BSA by Slime Wilhelm RN and Virginia Madrigal RN. At time of administration Patient identity verified using patient's name and date of at the chair/bedside with Virginia Madrigal, RN and Slime Wilhelm RN just prior to initiating the patient's home infusion chemotherapy via CADD pump provided by [facility]. Fluorouracil 5125mg over 46 hours, IV via CADD pump s tarted at 1335. Pump verified at 1350 by Virginia Madrigal, RN and Deborah Adrian, RN and 0.7 cc hadinfused. REACTIONS (DESCRIPTION, TIME, INTERVENTION AND EFFECTIVENESS) none ASSESSMENT Mr. Salazar was awake, alert and he tolerated treatment well. PLAN Return to clinic in two days for chemotherapy disconnect * Cortez Caceres RPH - 09/21/2013 9:48 AM EDT * Pharmacist Waste Documentation * Drug: oxaliplatin Date Administered: 09/21/13 (mm/dd/yy) Time: 1030 Amount Pharmacy Discarded: 18 [...] 10 mg, Intravenous, ONCE, 1 dose, On Thu09/21/13 at 1030, Pre chemo, Routine Given 09/21/2013 9:58 AM EDT 10 mg fluorouracil (ADRUCIL) chemo injection 855 mg 855 mg, Intravenous, ONCE, 1 dose, On Thu09/21/13 at 1030, Administer over 5 Minutes Given 09/21/2013 1:21 PM EDT 855 mg 205.2 mL/hr fosaprepitant (EMEND) 150 mg in sodium chloride 0.9% 155 mL infusion 150 mg, Intravenous, ONCE, 1 dose, On Thu09/21/13 at 1030, Administer over 30 Minutes, Pre chemo New Bag 09/21/2013 10:01 AM EDT 150 mg 310 mL/hr leucovorin 43 mg in dextrose 5% 504.3 mL infusion 43 mg, Intravenous, ONCE, 1 dose, On Thu09/21/13 at 1030, Administer over 120 Minutes New Bag 09/21/2013 10:46 AM EDT 43 mg 252.2 mL/hr OXALIplatin (ELOXATIN) 182 mg in dextrose 5% 286.4 mL chemo infusion 182 mg, Intravenous, ONCE, 1 dose, On Thu09/21/13 at 1030, Administer over 120 Minutes, Vesicant/irritant. Avoid extravasation. Compatible with dextrose-containing solution only. New Bag 09/21/2013 10:46 AM EDT 182 mg 143.2 mL/hr palonosetron (ALOXI) injection 0.25 mg 0.25 mg, Intravenous, ONCE, 1 dose, On Thu09/21/13 at 1030, Pre chemo, Routine Given 09/21/2013 9:55 AM EDT 0.25 mg documented in this encounter Care Teams Cylinder Press Operator Helper Relationship Specialty Start Date End Date Randa Rosas APRN [address] [place] [address] PCP - General 12/29/12 04/16/22 documented as of this encounter
--- OUTSIDE RECORDS SUMMARY | 2024-11-18 16:59 | XMS_ITS | Encounter Summary ---
Author Organization [facility] Address [facility] [address] Care Team Providers Care Butcher Head Name Role Phone Randa Rosas APRN Primary Care Provider +1- [phone] Reason for Visit * Reason Comments Rectal Cancer Encounter Details Date Type Department Care Team (Late st Contact Info) Description 07/05/2013 8:00 AM EDT Follow-Up Hematology Oncology at [address] [phone] Nas Dobbs MD Mosher, Christel H RN Rectal cancer (Primary Dx) Discharge Disposition: Home [...] Sign Reading Time Taken Comments Blood Pressure 110/72 07/05/2013 8:00 AM EDT Pulse 93 07/05/2013 8:00 AM EDT Temperature 36.7 ??C (98.1 ??F) 07/05/2013 8:00 AM ED T Respiratory Rate 16 07/05/2013 8:00 AM EDT Oxygen Saturation 97% 07/05/2013 8:00 AM EDT Inhaled Oxygen Concentration - - Weight 99.8 kg (220 lb) 07/05/2013 8:00 AM EDT Height 170.2 cm (5' 7.01) 07/05/2013 8:00 AM ED T Body Mass Index 34.45 07/05/2013 8:00 AM EDT documented in this encounter Progress Notes * Nas Dobbs MD - 07/05/2013 8:20 AM EDT Diagnosis: 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 Status post neoadjuvant chemoradiation therapy with continuous infusion 5 fluorouracil followed by a AP resection. Subjective: Reg is here today 2 of FOLFOX chemotherapy. Her first cycle went quite well. The only: Tolerance problems he noted was we try to drink some cold water from the refrigerator right after his treatment. He let the water warm up a little bit for about 5 minutes and then he was fine with that. Did not have any other problems. He has no neuropathy symptoms. He is having no diarrhea or other symptoms. He is taking much less in the way of pain medication perhaps only a couple pills bowel weak. He is planning on going back to work when he is released to surgery.he still cathing himself although he isable to urinate normally more frequently now and requires less self catheterization. Past medical history and social history are [...] Neurologic: Normal His white count today is 7.48 hemoglobin 10.3 and platelet count 297. ANC is 5.97 CMP shows a creatinine of 0.8 and normal liver tests. Albumin is up to 3.1. Assessment/Plan: Reg is doing well post resection of his stage II A. Rectal cancer. He is doing exceptionally well with the treatment and is not having really any serious sequelae. We'll go ahead with cycle 2 today as planned and see him back in 2 weeks for cycle 3 of 8 planned treatments. He'll call if issues or problems develop in the interim. documented in this encounter Procedure Notes * Provider, Scanning - 07/05/2013 8:13 AM EDTAssociated Order(s): SCAN DOC: LAB documented in this encounter Plan of Treatment Not on file documented as of this encounter Procedures Procedure Name Priority Date/Time Associated Diagnosis Comments LAB SCAN 07/05/2013 8:13 AM EDT documented in this encounter Results * SCAN DOC: LAB (07/05/2013 8:13 AM EDT) Narrative 07/05/2013 8:13 AM EDT Procedure Note Provider, Scanning - 07/05/2013 8:13 AM EDT Scanning Provider MEDIA MGR SCAN EXT O RDR/RSLT documented in this encounter Visit Diagnoses Diagnosis Rectal cancer- Primary Malignant neoplasm of rectum documented in this encounter Care Teams Butcher Head Relationship Specialty Start Date End Date Randa Rosas APRN [address] [place] [address] PCP - General 12/29/12 04/16/22 documented as of this encounter
--- OUTSIDE RECORDS SUMMARY | 2024-11-18 16:59 | XMS_ITS | Encounter Summary ---
Author Organization [facility] [place] [address] Care Team Providers Care Retail Client Solutions Analyst Name Role Phone Randa Rosas APRN Primary Care Provider +1- [phone] Encounter Details Date Type Department Care Team (Late st Contact Info) Description 05/30/2013 Orders [place] [phone] Mercy Jesus, RN Social History Tobacco Use Types Packs/Day [...] on filedocumented in this encounter Care Teams Retail Client Solutions Analyst Relationship Specialty Start Date End Date Randa Rosas APRN [address] [facility] [phone] PCP - General 12/29/12 04/16/22 documented as of this encounter
--- OUTSIDE RECORDS SUMMARY | 2024-11-18 16:59 | XMS_ITS | Encounter Summary ---
Author Organization [facility] [place] [address] Care Team Providers Care Agronomy Location Manager Name Role Phone Randa Rosas APRN Primary Care Provider +1- [phone] Encounter Details Date Type Department Care Team (Late st Contact Info) Description 05/30/2013 9:00 AM EDT [place] [phone] Urinary retention (Primary Dx) Social History Tobacco Use Types [...] as of this encounter Progress Notes * Mercy Jacinto LPN - 05/30/2013 11:04 AM EDT Patient returned to clinic after voiding, Bladder scan was performed, zero ml noted. Instructed patient on intermittent clean catherization. CIC was performed at this time with < 30 ml of urine received. Patient in agreement with treatment plan. Instructed patient on how to clean catheters as well. Patient verbalized 100% understanding to instructions. Mercy Smith LPN documented in this encounter Plan of Treatment Not on file documented as of this encounter Visit Diagnoses Diagnosis Urinary retention- Primary Retention of urine, unspecified documented in this encounter Care Teams Agronomy Location Manager Relationship Specialty Start Date End Date Randa Rosas APRN [address] [place] [address] PCP - General 12/29/12 04/16/22 documented as of this encounter
--- OUTSIDE RECORDS SUMMARY | 2024-11-18 16:59 | XMS_ITS | Encounter Summary ---
Author Organization [facility] Address [facility] [place] [address] Care Team Providers Care Insurance Appraiser Name Role Phone Randa Rosas APRN Primary Care Provider +1- [phone] Encounter Details Date Type Department Care Team (Late st Contact Info) Description 05/30/2013 9:00 AM EDT Office Visit Urology at [facility] [place] [phone] Izaiah Coppola III, MD [facility] [place] [address] Other symptoms involving urinary system (Primary Dx) Discharge Disposition: Home Social History [...] Sign Reading Time Taken Comments Blood Pressure 110/60 05/30/2013 9:14 AM EDT Pulse - - Temperature - - Respiratory Rate - - Oxygen Saturation - - Inhaled Oxygen Concentration - - Weight - - Height - - Body Mass Index - - documented in this encounter Progress Notes * Mercy Jacinto LPN - 05/30/2013 9:17 AM EDT Instilled 240 ml of sterile water into patient's aguilar catheter. Aguilar catheter was removed at thistime, after deflating balloon. Patient voided 240 ml of urine. Patient was instructed to drink fluids/then void, then return to clinic for PVR. Patient tolerated without complications. Mercy Smith LPN documented in this encounter Plan of Treatment Not on file documented as of this encounter Visit Diagnoses Diagnosis Other symptoms involving urinary system(788.99)- Primary Other symptoms involving urinary system documented in this encounter Care Teams Insurance Appraiser Relationship Specialty Start Date End Date Randa Rosas APRN [address] [place] [phone] PCP - General 12/29/12 04/16/22 documented as of this encounter
--- OUTSIDE RECORDS SUMMARY | 2024-11-18 16:59 | XMS_ITS | Encounter Summary ---
Author Organization [facility] Address [facility] [place] [address] Care Team Providers Care Dog Licenser Name Role Phone Randa Rosas APRN Primary Care Provider +1- [phone] Reason for Visit * Reason Comments Established F/U S/P MAR 05 Encounter Details Date Type Department Care Team (Late st Contact Info) Description 12/13/2013 10:30 AM EST Follow-Up General Surgery at [facility] [place] [address] Bobby Hills MD Colostomy in place; Rectal cancer; Obesity (BMI 35.0-39.9 without comorbidity); Diabetes mellitus; Snoring; Hypertension Discharge Disposition: Home Social History Tobacco Use [...] Sign Reading Time Taken Comments Blood Pressure 107/67 12/13/2013 10:22 AM EST Pulse 87 12/13/2013 10:22 AM EST Temperature - - Respiratory Rate - - Oxygen Saturation 99% 12/13/2013 10:22 AM EST Inhaled Oxygen Concentration - - Weight 103.4 kg (228 lb) 12/13/2013 10:22 AM EST Height 170.2 cm (5' 7) 12/13/2013 10:22 AM EST Body Mass Index 35.71 12/13/2013 10:22 AM EST documented in this encounter Progress Notes * Nighat Lopez - 12/13/2013 2:00 PM EST Pt RTC for 3 mos f/u. He is 7 mos s/p APR with permanent colostomy secondary to rectal ca. He has completed his chemo and is cancer free. He is here with his s.o. Charlette who he lives with and she does most of the changing of his colostomy. He continues to wear the Large Moldable Convex barrier by[employer] and changes every 4 days. He is concerned as he had a leak last weekend and he also noticed a bulge about his colostomy stoma about a week ago. He denies any pain, no change in bowel habits,etc. When he stands and sits he does appear to have a bulge parastomally but Dr. Hills can not appreciate the fascial defect. His stoma measures about 1 1/8 x 1 3/8 diameter when sitting and standing and I enc him to mold the wafer a bit larger, so wafer not on his stoma. I also measured his abd standing it measures 48 and lying 46 1/2. He wears a pouch with 2 1/4 flange and I think a 4 NuHope support belt might benefit him some comfort, etc. Belt #[id number]. I will call and order from [facility]. I will f/u in [address] Hills * Bobby Hills - 12/13/2013 10:50 AM EST Colon and Rectal Surgery Follow-up Office Visit BMI ~38 12/30/12 CT CAP - NE mets 01/06/13 - Rectal mass biopsies at 5 cm: Invasive adenocarcinoma. 01/10/13 MRI ([facility] – [place] report pending but T3-T4 - threatened CRM [...] Last CEA 11/11/14 1.1 Interval History: Feeling well. Gained @ 30 lbs but has now lost @10 lbs (sugars being too high). No bleeding, changes in bowel habits, energy level good. No lumps or bumps. Viagra not working. Also still SC'ing 2-3 x/d and has wet diaper at night from overflow. Finally, c/o stomal prolapse vika. inferiorly but very short, also superior bulge. No obstructive symptoms. On exam looks great. Perineum flap intact no hernia nor tumor implants. Midline no hernia or tumor implants. Colostomy taken down, inspected. No obvious herniation on exam, orifice larger inferiorly. Doing well. Active Issues 1) ED and urinary dysfunction - suspect combo of baseline diabetes as well as enbloc resection/pelvic nerve injury. Jensen Gurrola kindly will see patient today. 2) parastomal buldging - discusses S&S of obstruction, hernia belt, weight loss 3) Oncologic f/u with Dr. Dobbs, f/u with me in 6 months, colonoscopy at 1 year. Bobby Hills MD, MS, FACS baffle installer Division of Colon and Rectal Surgery [facility] Pager #[phone] documented in this encounter Plan of Treatment Not on file documented as of this encounter Visit Diagnoses Diagnosis 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 status Rectal cancer Malignant neoplasm of rectum Obesity (BMI 35.0-39.9 without comorbidity) Obesity, unspecified Diabetes mellitus Type II or unspecified type diabetes mellitus without mention of complication, not stated as uncontrolled Snoring Other dyspnea and respiratory abnormality Hypertension Unspecified essential hypertension documented in this encounter Care Teams Dog Licenser Relationship Specialty Start Date End Date Randa Rosas APRN [address] [place] [address] PCP - General 12/29/12 04/16/22 documented as of this encounter
--- OUTSIDE RECORDS SUMMARY | 2024-11-18 16:59 | XMS_ITS | Encounter Summary ---
Author Organization [facility] Address [facility] [place] [address] Care Team Providers Care Rear Admiral Name Role Phone Randa Rosas LENO SEWER Primary Care Provider +1- [phone] Encounter Details Date Type Department Care Team (Late st Contact Info) Description 07/10/2013 Telephone Hematology [place] [phone] Nas Dobbs MD Social History Tobacco Use [...] encounter Miscellaneous Notes * Telephone Encounter - Rani Matias - 07/10/2013 4:33 PM EDT Hematology/Oncology Fellow Phone Note Call is from: Patient's Reason for call: fever Brief history: 58 y/o M with stage IIA rectal cancer, on FOLFOX Current chemotherapy regimen: FOLFOX, last dose on 07/05 S: Pt's called in to report that he has not been feeling well since yesterday. He has dysuria, R flank pain, nausea, poor appetite and poor po intake. She checked his temp about an hour ago and it was 101.3F. He also has some dizziness. A/P ? Pyelonephritis: I suggested her to take him to local ED ([facility]) for evaluation especially given his poor po intake and dizziness as it seems he may be dehydrated. I called and spoke with ED physician at [facility] about him. Rani Matias MD, Fellow, Hematology / Oncology Beeper: [phone] documented in this encounter Plan of Treatment Not on file documented as of this encounter Visit Diagnoses Not on filedocumented in this encounter Care Teams Rear Admiral Relationship Specialty Start Date End Date Randa Rosas APRN [address] [place] [address] PCP - General 12/29/12 04/16/22 documented as of this encounter
--- OUTSIDE RECORDS SUMMARY | 2024-11-18 16:59 | XMS_ITS | Encounter Summary ---
Author Organization [facility] Address [facility] [address] Care Team Providers Care Licensed Prosthetist Name Role Phone Randa Rosas APRN Primary Care Provider +1- [phone] Reason for Visit * Reason Comments Rectal Cancer Cycle 5 Day3 Encounter Details Date Type Department Care Team (Late st Contact Info) Description 08/26/2013 3:00 PM EDT Office Visit Hematology Oncology at [address] [phone] CLINIC, DR OQUENDO HEM/ONC Paul Rain MD [facility] [address] Rectal cancer (Primary Dx) Discharge Disposition: Home [...] Progress Notes * Sandra Flores RN - 08/26/2013 4:01 PM EDT Treatment Started:15:30 Treatment Ended:15:45 Diagnosis: Rectal Cancer Treatment:Disconnect CADD Pump and flush mediport documented in this encounter Plan of Treatment Not on file documented as of this encounter Visit Diagnoses Diagnosis Rectal cancer- Primary Malignant neoplasm of rectum documented in this encounter Care Teams Licensed Prosthetist Relationship Specialty Start Date End Date Randa Rosas APRN [address] [place] [address] PCP - General 12/29/12 04/16/22 documented as of this encounter
--- OUTSIDE RECORDS SUMMARY | 2024-11-18 16:59 | XMS_ITS | Encounter Summary ---
Author Organization [facility] Address [facility] [place] [address] Care Team Providers Care Accounting Associate Name Role Phone Randa Rosas APRN Primary Care Provider +1- [phone] Encounter Details Date Type Department Care Team (Late st Contact Info) Description 01/30/2014 9:30 AM EST Follow-Up Urology at [facility] [place] [phone] UROLOGY PROCEDURE NURSE Urinary retention (Primary Dx) Discharge Disposition: Home Social History [...] as of this encounter Progress Notes * Hortencia Cortez LPN - 01/30/2014 11:36 AM EST The patient presented for a urodynamic study. The patient voided and cathed himself in the bathroom. He did not measure the amount. A #10 urodynamic catheter was inserted obtaining 400 ml. The patient stated he does not feel he gets the catheter in all the time. The patient was observed passing a #14 coude instead of the #14 straight catheter. The patient stated the #14 coude went in much easier.He obtained 200 ml. The patient will pass the catheter 6 times per day keeping his volumes <500ml. He will return in 3 months for a urodynamic study. The patient verbalized understanding of the instructions and agrees with this plan. documented in this encounter Plan of Treatment Not on file documented as of this encounter Visit Diagnoses Diagnosis Urinary retention- Primary Retention of urine, unspecified documented in this encounter Care Teams Accounting Associate Relationship Specialty Start Date End Date Randa Rosas APRN [address] [place] [address] PCP - General 12/29/12 04/16/22 documented as of this encounter
--- OUTSIDE RECORDS SUMMARY | 2024-11-18 16:59 | XMS_ITS | Encounter Summary ---
Author Organization [facility] Address [facility] [place] [address] Care Team Providers Care Health Companion Name Role Phone Randa Rosas APRN Primary Care Provider +1- [phone] Reason for Visit * Reason Comments Urinary Retention Sexual Problem Encounter Details Date Type Department Care Team (Late st Contact Info) Description 12/13/2013 12:00 PM EST Follow-Up Urology at [facility] [place] [address] Jensen Gurrola MD [facility] [place] [address] Overflow incontinence (Primary Dx); Male sexual dysfunction Discharge Disposition: Home Social History Tobacco Use [...] as of this encounter Progress Notes * Jensen Gurrola MD - 12/13/2013 12:26 PM EST Patient Name: Reg Salazar Date of Service: 12/13/2013 Primary Care Provider: RANDA ROSAS APRN Reason for Visit: Reg Salazar is a 58 y.o. male who is referred by Dr Hills for evaluation of voiding and sexual dysfunction sp APR 04/2013 APR with excision of bilateral seminal vesicals following chemoradiation Urinary Incontinence Prior to APR he voided well. Stream OK. Nocturia 1 Since the surgery, initially he was unable to void. He was cathing 2 x a day. Currently he voids during the day. Stream is variable. Not sure he empties. He has not checked PVR's He caths when he finishes work for ~ 1 liter. He caths before he goes to bed for ~ 1 liter. Following cathing he does not leak for ` 3 hours. During the day he wears a pad which he changes 2 x a day. He leaks especially with stress. He has had 2 episodes of pyelonephritis (temp and back pain, positive urine culture). Last episode ~August. Sexual dysfunction He had some ED prior to surgery and needed Viagra 50. No erections since surgery, no nocturnal erections. He has failed Viagra 100mg x2. Past Medical History: NIDDM x 10 years HTN High Cholesterol Past Surgical History: Tonsils APR Nasal polyps Medications: Reviewed Allergies: Reviewed Family History: There is no family history of urinary problems No diseases run in the family. Social History: The patient works in a [employer]. The patient is with his girlfriend of 7 years.The patient drinks 1-2 week Tobacco: None x 15 years Physical Exam: Vital Signs are reviewed. The patient appears healthy and in no distress. Examination of the hands, head neck, eyes ears nose and throat is normal. The skin is normal. Thereis no lymphadenopathy or thyroidomegaly The abdomen is benign. There are no masses or organomegaly. External genitalia is normal with bilaterally descended testis and normal phallus. Rectum is absent Peripheral pulses 1 +. He has some diabetic neuropathy in his feet (numbess on the soles) Examination of the extremities and neurological examination is grossly normal. 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 As he has failed Viagra I would favour intracavernosal injections(discussed risk of prolonged erections/fibrosis) although a Vacuum erection device is an alternative. He will think about these options. Jensen Gurrola documented in this encounter Plan of Treatment Not on file documented as of this encounter Visit Diagnoses Diagnosis Overflow incontinence- Primary Male sexual dysfunction Psychosexual dysfunction, unspecified documented in this encounter Care Teams Health Companion Relationship Specialty Start Date End Date Randa Rosas APRN [address] [place] [address] PCP - General 12/29/12 04/16/22 documented as of this encounter
--- OUTSIDE RECORDS SUMMARY | 2024-11-18 16:59 | XMS_ITS | Encounter Summary ---
Author Organization [facility] Address [facility] [place] [address] Care Team Providers Care Mate Fishing Vessel Name Role Phone Randa Rosas APRN Primary Care Provider +1- [phone] Reason for Visit * Reason Comments Rectal Cancer Encounter Details Date Type Department Care Team (Late st Contact Info) Description 09/21/2013 9:30 AM EDT Follow-Up Hematology Oncology at [address] [phone] Nas Dobbs MD Mosher, Christel H, RN Rectal cancer (Primary Dx) Discharge Disposition: [...] Sign Reading Time Taken Comments Blood Pressure 108/76 09/21/2013 9:14 AM EDT Pulse 88 09/21/2013 9:14 AM EDT Temperature 36.8 ??C (98.2 ??F) 09/21/2013 9:14 AM ED T Respiratory Rate 18 09/21/2013 9:14 AM EDT Oxygen Saturation 99% 09/21/2013 9:14 AM EDT Inhaled Oxygen Concentration - - Weight 98.7 kg (217 lb 8 oz) 09/21/2013 9:14 AM EDT Height 170.2 cm (5' 7.01) 09/21/2013 9:14 AM ED T Body Mass Index 34.06 09/21/2013 9:14 AM EDT documented in this encounter Progress Notes * Nas Dobbs MD - 09/21/2013 10:08 AM EDT Diagnosis: 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 Status post neoadjuvant chemoradiation therapy with continuous infusion 5 fluorouracil followed by a AP resection. Subjective: Reg is here today for cycle # 7 of FOLFOX chemotherapy. Is doing well overall and working full-time including some overtime. He's not having any difficulties although he still has some urinary problems which require self-catheterization. He is wondering when he can start taking Viagra again and heis been cleared by surgery so I told him there is no problems with him taking that medication at the current time. She's not having any neuropathy. The cold intolerance is acceptable and manageable. His bowels been fine. He's not having mouth sores or skin problems. Review of Systems Constitutional: Negative for fever, [...] Neurologic: Normal His white count today is 5.09 hemoglobin is 11.2 hematocrit 34.7 and platelet count 187 ANC is 3.53. CMP is normal except for his glucose which is up as usual at 265. Creatinine is 0.8 and liver tests are normal Assessment/Plan: Reg is doing well post resection of his stage II A. rectal cancer. He is continuing to doing exceptionally well with the treatment and is not having really any serious sequelae. We'll go ahead with cycle 7 today as planned and see him back in 2 weeks for cycle 8 of 8 planned treatments. He will remain on Lovenox till his port is out after the end of chemotherapy. I told my plans were to continuethe Lovenox for one week after discontinuing his port. I also would not remove the port until his platelet count was in the normal range. I suspect though since his platelets are fine today that may not be part of the equation we'll schedule her for cycle #8 in 2 weeks with a CBC and CMP drawn fromhis port. .He'll call if issues or problems develop in the interim. documented in this encounter Procedure Notes * Provider, Scanning - 09/21/2013 12:04 PM EDTAssociated Order(s): SCAN DOC: LAB * Provider, Scanning - 09/21/2013 9:03 AM EDTAssociated Order(s): SCAN DOC: LAB documented in this encounter Plan of Treatment Not on file documented as of this encounter Procedures Procedure Name Priority Date/Time Associated Diagnosis Comments LAB SCAN 09/21/2013 12:04 PM EDT LAB SCAN 09/21/2013 9:03 AM EDT documented in this encounter Results * SCAN DOC: LAB (09/21/2013 12:04 PM EDT) Narrative 09/21/2013 12:04 PM EDT Procedure Note Provider, Scanning - 09/21/2013 12:04 PM EDT Scanning Provider MEDIA MGR SCAN EXT O RDR/RSLT * SCAN DOC: LAB (09/21/2013 9:03 AM EDT) Narrative 09/21/2013 9:03 AM EDT Procedure Note Provider, Scanning - 09/21/2013 9:03 AM EDT Scanning Provider MEDIA MGR SCAN EXT O RDR/RSLT documented in this encounter Visit Diagnoses Diagnosis Rectal cancer- Primary Malignant neoplasm of rectum documented in this encounter Care Teams Mate Fishing Vessel Relationship Specialty Start Date End Date Randa Rosas APRN [address] [place] [address] PCP - General 12/29/12 04/16/22 documented as of this encounter
--- OUTSIDE RECORDS SUMMARY | 2024-11-18 16:59 | XMS_ITS | Encounter Summary ---
Author Organization [facility] Address [facility] [place] [address] Care Team Providers Care Field Support Specialist Name Role Phone Randa Rosas APRN Primary Care Provider +1- [phone] Reason for Visit * Reason Comments Chemotherapy FOLFOX - cycle 5 Encounter Details Date Type Department Care Team (Late st Contact Info) Description 08/24/2013 10:00 AM EDT Office Visit Hematology Oncology at [address] [phone] CLINIC, DR OQUENDO HEM/ONC Rectal cancer (Primary [...] Progress Notes * Cortez Caceres RPH - 08/24/2013 11:23 AM EDT * Pharmacist Waste Documentation * Drug: oxaliplatin Date Administered: 08/24/13 (mm/dd/yy) Time: 1000 Amount Pharmacy Discarded: 18 mg * Deborah Adrian RN - 08/24/2013 9:22 AM EDT INFUSION THERAPY ADMINISTRATION NOTES DIAGNOSIS: Rectal CA CYCLE #: 5 REASON FOR VISIT: FOLFOX Chemotherapy SUBJECTIVE Mr. Salazar is here for his FOLFOX chemotherapy. He is doing well and offers no complaints. He reports [facility] infusion was unable to obtain blood from his mediport this morning. OBJECTIVE LAB DATA: wbc 5.28, hgb 10.2, plts 259k, anc 3.51 IV ACCESS: Mediport Right Chest, accessed at [facility] for labs BLOOD RETURN: yes (after CathFlo) ANY S/S OF INFECTION/EXTRAVASATIONS: None IV FLUSHED WITH: NS IV DISCONTINUED: no, connected to continuous infusion 5FU via CADD pump Pre administration: Chemotherapy orders independently verified for drug name, route, and dosage per patient's height, weight and BSA by Severiano Adrian RN and Li Wilhelm RN At time of administration Patient identity verified using patient's name and date of at the chair/bedside with Deborah Adrian RN and Virginia Madrigal RN just prior to initiating the patient's home infusion chemotherapy via CADD pump provided by [facility]. Fluorouracil 5125mg over 46 hours, IV via CADD pump started at 1355. Pump verified at by Sunitha Matias RN and Virginia Madrigal RN and 0.8 cc had infused. REACTIONS (DESCRIPTION, TIME, INTERVENTION AND EFFECTIVENESS) none ASSESSMENT Mr. Salazar was awake, alert and he tolerated treatment well. PLAN Return to clinic on Thursday for pump de-access. Reg was reminded to call in the interim with any questions/concerns. documented in this encounter Plan of Treatment Not on file documented as of this encounter Visit Diagnoses Diagnosis Rectal cancer- Primary Malignant neoplasm of rectum documented in this encounter Administered Medications Inactive Administered Medications - up to 3 most recent administrations Medication Order MAR Action Action Date Dose Rate Site alteplase (CATHFLO) injection 2 mg 2 mg, INTRA-CATHETER, ONCE, 1 dose, On Thu08/24/13 at 0945, Instill into occluded lumen as directed., Routine Given 08/24/2013 9:20 AM EDT 2 mg dexamethasone (DECADRON) injection 10 mg 10 mg, Intravenous, ONCE, 1 dose, On Thu08/24/13 at 1000, Pre chemo, Routine Given 08/24/2013 10:20 AM EDT 10 mg fluorouracil (ADRUCIL) chemo injection 855 mg 855 mg, Intravenous, ONCE, 1 dose, On Thu08/24/13 at 1000, Administer over 5 Minutes Given 08/24/2013 1:38 PM EDT 855 mg 205.2 mL/hr fosaprepitant (EMEND) 150 mg in sodium chloride 0.9% 155 mL infusion 150 mg, Intravenous, ONCE, 1 dose, On Thu08/24/13 at 1000, Administer over 30 Minutes, Pre chemo New Bag 08/24/2013 10:26 AM EDT 150 mg 310 mL/hr leucovorin 43 mg in dextrose 5% 504.3 mL infusion 43 mg, Intravenous, ONCE, 1 dose, On Thu08/24/13 at 1000, Administer over 120 Minutes New Bag 08/24/2013 11:25 AM EDT 43 mg 252.2 mL/hr OXALIplatin (ELOXATIN) 182 mg in dextrose 5% 286.4 mL chemo infusion 182 mg, Intravenous, ONCE, 1 dose, On Thu08/24/13 at 1000, Administer over 120 Minutes, Vesicant/irritant. Avoid extravasation. Compatible with dextrose-containing solution only. New Bag 08/24/2013 11:24 AM EDT 182 mg 143.2 mL/hr palonosetron (ALOXI) injection 0.25 mg 0.25 mg, Intravenous, ONCE, 1 dose, On Thu08/24/13 at 1000, Pre chemo, Routine Given 08/24/2013 10:19 AM EDT 0.25 mg documented in this encounter Care Teams Field Support Specialist Relationship Specialty Start Date End Date Randa Rosas APRN [address] [place] [phone] PCP - General 12/29/12 04/16/22 documented as of this encounter
--- OUTSIDE RECORDS SUMMARY | 2024-11-18 16:59 | XMS_ITS | Encounter Summary ---
Author Organization [facility] Includes [facility] Address [facility] [place] [address] Care Team Providers Care Pure Pak Machine Operator Name Role Phone Randa Rosas APRN Primary Care Provider +1- [phone] Reason for Visit * Reason Comments Other CADD pump disconnect Encounter Details Date Type Department Care Team (Late st Contact Info) Description 07/07/2013 3:00 PM EDT Office Visit Hematology Oncology at [address] [phone] CLINIC, DR OQUENDO HEM/ONC Rectal cancer (Primary [...] Sign Reading Time Taken Comments Blood Pressure 101/67 07/07/2013 1:13 PM EDT Pulse 89 07/07/2013 1:13 PM EDT Temperature 36.9 ??C (98.4 ??F) 07/07/2013 1:13 PM ED T Respiratory Rate 18 07/07/2013 1:13 PM EDT Oxygen Saturation 100% 07/07/2013 1:13 PM EDT Inhaled Oxygen Concentration - - Weight - - Height - - Body Mass Index - - documented in this encounter Progress Notes * Deborah Adrian RN - 07/07/2013 1:17 PM EDT Treatment Started: 1300 Treatment Ended: 1320 Diagnosis: Rectal CA Treatment: Dosconnect Continuous Infusion 5FU CADD pump. Assessment: Patient is here for a pump disconnect. 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 He denies N/V, diarrhea/constipation. Reviewed with patient to drink room temperature liquids and wear gloves when putting hands into refrigerator/freezer. He verbalized understanding. CADD Pump Disconnect 1315 Patient will follow-up in 2 weeks. Patient reminded to call in the interim with any questions/concerns. documented in this encounter Plan of Treatment Not on file documented as of this encounter Visit Diagnoses Diagnosis Rectal cancer- Primary Malignant neoplasm of rectum documented in this encounter Care Teams Pure Pak Machine Operator Relationship Specialty Start Date End Date Randa Rosas APRN [address] [place] [address] PCP - General 12/29/12 04/16/22 documented as of this encounter
--- OUTSIDE RECORDS SUMMARY | 2024-11-18 16:59 | XMS_ITS | Encounter Summary ---
Author Organization [facility] Address [facility] [place] [address] Care Team Providers Care Web Press Operator Assistant Name Role Phone Randa Rosas AMBULANCE DISPATCHER Primary Care Provider [phone]- [phone] Reason for Visit * Reason Onset Date Comments Other 07/12/2013 ER visit Encounter Details Date Type Department Care Team (Late st Contact Info) Description 07/12/2013 Telephone Hematology Oncology at [address] [phone] Miriam Dubois, RN Other (ER visit) Social History Tobacco Use Types Packs/Day Years [...] encounter Miscellaneous Notes * Telephone Encounter - Miriam Dubois RN - 07/12/2013 11:56 AM EDT TC from patient to report that he went to the ER at [facility] on Thursday. States he was having R lower back pain. ER did speak with in [place]. Result of visit was a dx of pyelonephritis per the ER note. Patient was given 10 days of Cipro. States his symptoms have improved as of today, and that he is drinking a lot of water. Instructed to call us with any worsening of symptoms, or with additional symptoms. Patient agreeable to plan. Dr. Dobbs made aware. documented in this encounter Plan of Treatment Not on file documented as of this encounter Visit Diagnoses Not on filedocumented in this encounter Care Teams Web Press Operator Assistant Relationship Specialty Start Date End Date Randa Rosas APRN [address] [place] [phone] PCP - General 12/29/12 04/16/22 documented as of this encounter
--- OUTSIDE RECORDS SUMMARY | 2024-11-18 16:59 | XMS_ITS | Encounter Summary ---
Author Organization [facility] [place] [address] Care Team Providers Care Net Technical Architect Name Role Phone Randa Rosas METAL MACHINIST Primary Care Provider [phone]- [phone] Encounter Details Date Type Department Care Team (Late st Contact Info) Description 05/27/2013 Telephone [place] [phone] Michelle Cox PA [address] [place] [address] Social History Tobacco Use Types Packs/Day Years [...] encounter Miscellaneous Notes * Telephone Encounter - Michelle Cox PA - 05/27/2013 2:43 PM EDT Returned patient's call regarding stoma issue. No issues with stoma since discharge on 05/18. Now with 24H of no stoma out output. Denies nausea, vomiting, abd pain, slight distension. Was passing lots of flatus during. VNA came today around 11:30 to change the appliance, noted good bowel sounds, pushed on belly then stoma started putting out hard stool. Since then, the stoma has been working muchbetter, He is eating and drinking normally. Stool is very firm, but not pellet-like. He wonders if he was constipated. It has resolved now, but I advised him that should he start to have hard stool, a daily fiber supplement such as Metamucil once a day in the morning to help keep his stool soft andbulky would be a good idea. He needs to be sure to drink lots of water for it to work well. I told him to monitor himself for ssx obstructions such as nausea, vomiting, abd pain, abd distension/bloated feeling with cessation of stoma output, to call us for immediate evaluation and we'd be happy to see him if it needed. He agreed to do so. Michelle Cox PA-C Division of Colon & Rectal Surgery [facility] [phone] documented in this encounter Plan of Treatment Not on file documented as of this encounter Visit Diagnoses Not on filedocumented in this encounter Care Teams Net Technical Architect Relationship Specialty Start Date End Date Randa Rosas APRN [address] [place] [phone] PCP - General 12/29/12 04/16/22 documented as of this encounter
--- OUTSIDE RECORDS SUMMARY | 2024-11-18 16:59 | XMS_ITS | Encounter Summary ---
Author Organization [facility] Address [facility] [place] [address] Care Team Providers Care Washateria Attendant Name Role Phone Randa Rosas VALENTIN Primary Care Provider [phone]- [phone] Reason for Visit * Reason Comments Rectal Cancer Encounter Details Date Type Department Care Team (Late st Contact Info) Description 10/05/2013 9:00 AM EST Follow-Up Hematology Oncology at [address] [phone] Nas Dobbs MD Pain; Rectal cancer Discharge Disposition: Home Social History [...] Sign Reading Time Taken Comments Blood Pressure 103/67 10/05/2013 8:57 AM EST Pulse 91 10/05/2013 8:57 AM EST Temperature 36.7 ??C (98.1 ??F) 10/05/2013 8:57 AM ES T Respiratory Rate 18 10/05/2013 8:57 AM EST Oxygen Saturation 98% 10/05/2013 8:57 AM EST Inhaled Oxygen Concentration - - Weight 99.1 kg (218 lb 8 oz) 10/05/2013 8:57 AM EST Height 170.2 cm (5' 7.01) 10/05/2013 8:57 AM ES T Body Mass Index 34.21 10/05/2013 8:57 AM EST documented in this encounter Progress Notes * Nas Dobbs MD - 10/05/2013 9:38 AM EST Diagnosis: 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 Status post neoadjuvant chemoradiation therapy with continuous infusion 5 fluorouracil followed by a AP resection. Subjective: Reg is here today for cycle # 8 of FOLFOX chemotherapy. Is doing well overall and working full-time including some overtime. This is his final adjuvant chemotherapy today. He will be glad to be through with the cold intolerance which is been the main problem he's had. He has no neuropathy. He is also anxious to have his port removed so he get off of Lovenox. We discussed continuing the Lovenox for a week after the port is removed. Otherwise review systems is negative with his colostomy functioning well. Past medical history and social history are reviewed and unchanged from when I saw him 2 weeks ago Review of Systems Constitutional: Negative for [...] Neurologic: Normal His white count today is 5.17 hemoglobin 11.6 platelet count 198 ANC 3.32. CMP is normal except forglucose of 188 on a post-breakfast specimen. Assessment/Plan: Reg is doing well post resection of his stage II A. rectal cancer. He is continuing to doing exceptionally well with the treatment and is not having really any serious sequelae. We'll go ahead with his final adjuvant FOLFOX chemotherapy today and set him up for followup with baseline lab includinga CEA CBC and CMP in about 6 weeks. We'll see if we get his port out next week and he'll continue the Lovenox for week after that is removed. I did tell him he needs to stop the Lovenox for a couple days prior to having a port removed. He'll let us know if any issues or problems develop in the interim. Long-term plans are to follow him with periodic lab including CEA and to get a yearly CT scan for the next 3 years. documented in this encounter Procedure Notes * Provider, Scanning - 10/05/2013 9:13 AM ESTAssociated Order(s): SCAN DOC: LAB documented in this encounter Plan of Treatment Not on file documented as of this encounter Procedures Procedure Name Priority Date/Time Associated Diagnosis Comments LAB SCAN 10/05/2013 9:13 AM EST documented in this encounter Results * IR mediport placement or removal (10/28/2013 8:47 AM EST) Anatomical Region Laterality Modality X-Ray Angiograph y 10/28/2013 8:47 AM EST Narrative 10/28/2013 12:47 PM EST Procedure: Mediport removal ? Indication: Treatment complete; removal requested. ?? Findings and Intervention: Informed consent obtained. ?? Maximal sterile barrier technique was used throughout the procedure. ?? Sterile prep and drape. ?? Preprocedure IV antibiotics administered. ?? Blunt and sharp dissection used to remove, intact, single lumen mediport. ?? Wound copiously irrigated. ?? Closed with interrupted deep 2-0 vicryl sutures and running subcuticular 4-0 suture. ?? Hemostasis achieved. ?? Pre procedure fluoroscopic images showed intact catheter, removed without incident. ?? Due to the painful nature of the procedure, split doses of fentanyl and ?? versed were administered by the IR nurse during continuous monitoring of ?? pulse, blood pressure and oxygen saturation. ?? Meds: 3 mg IV versed ?? 150 mcg IV fentanyl ?? 600 mg IV clindamycin ?? 6 cc 1% lidocaine administered SQ. ?? 6 cc 0.25% bupivicaine administered SQ. ?? Fellow/Resident: none ?? Attending: Dr. Ray Philippe performed this procedure. ?? EBL: <1cc Procedure Note Swetha Bell MD - 10/28/2013 Procedure: Mediport removal Indication: Treatment complete; removal requested. Findings and Intervention: Informed consent obtained. Maximal sterile barrier technique was used throughout the procedure. Sterile prep and drape. Preprocedure IV antibiotics administered. Blunt and sharp dissection used to remove, intact, single lumen mediport. Wound copiously irrigated. Closed with interrupted deep 2-0 vicryl sutures and running subcuticular4-0 suture. Hemostasis achieved. Pre procedure fluoroscopic images showed intact catheter, removed without incident. Due to the painful nature of the procedure, split doses of fentanyl and versed were administered by the IR nurse during continuous monitoring of pulse, blood pressure and oxygen saturation. Meds: 3 mg IV versed 150 mcg IV fentanyl 600 mg IV clindamycin 6 cc 1% lidocaine administered SQ. 6 cc 0.25% bupivicaine administered SQ. Fellow/Resident: none Attending: Dr. Ray Philippe performed this procedure. EBL: <1cc Nas Dbobs MD IMG IR ORDERABLES * SCAN DOC: LAB (10/05/2013 9:13 AM EST) Narrative 10/05/2013 9:13 AM EST Procedure Note Provider, Scanning - 10/05/2013 9:13 AM EST Scanning Provider MEDIA MGR SCAN EXT O RDR/RSLT documented in this encounter Visit Diagnoses Diagnosis Pain Generalized pain Rectal cancer Malignant neoplasm of rectum Rectal cancer Malignant neoplasm of rectum documented in this encounter Care Teams Washateria Attendant Relationship Specialty Start Date End Date Randa Rosas APRN [address] [place] [address] PCP - General 12/29/12 04/16/22 documented as of this encounter
--- OUTSIDE RECORDS SUMMARY | 2024-11-18 16:59 | XMS_ITS | Encounter Summary ---
Author [facility] [place] [address] Care Team Providers Care Medicine And Health Service Manager Name Role Phone Randa Rosas APRN Primary Care Provider +1- [phone] Reason for Visit * Reason Comments Follow-up Encounter Details Date Type Department Care Team (Late st Contact Info) Description 06/14/2013 9:00 AM EDT Office [place] [phone] Bobby Hills MD Rectal cancer (Primary Dx); Colostomy in place Discharge Disposition: Home Social History Tobacco Use [...] - Inhaled Oxygen Concentration - - Weight 97.1 kg (214 lb 1.1 oz) 06/14/2013 9:01 A M EDT Height - - Body Mass Index 33.53 05/23/2013 10:31 AM EDT documented in this encounter Patient Instructions * Patient Instructions* Bobby Hills - 06/14/2013 7:41 AM EDT Ostomy Resources: Ostomy.org: United Ostomy Association - includes a video Living with an Ostomy United Ostomy Association of [place]: www.uoaa.org [employer] [employer] Rectal [employer]: www.fascrs.org/patients/treatments_and_screening/ostomy/ [employer]: www.facs.patienteducation/skills/ostomy.html www.facs.org/patienteducation/skills/dvd.html - includes 10 short professionally produced videos includin. Helping your with home care 2. Your Ostomy 3. Your Operation 4. Pouching systems 5. Emptying a Pouch 6. Changing a Pouch 7. Problem Solving 8. Emergencies 9. Knowledge check 10. Ostomy skills (all modules, 27 minutes) These videos are also on Youtube: search for [employer] Ostomy Education Skills Below is a list of garment websites we other ostomates have found helpful. We do not endorse or have any financial relationship with any of them ?? [employer] [place] - custom neoprene swimming belts. ?? [employer] - stylish ostomy underwear and ostomy undergarments ?? Live Mobile - Dont' feel Different . . . FEEL CONFIDENT. Welcome to [facility]iel[facility], your secure online access to your electronic medical record at [facility]. Using Digital Fuel you will be able to send messages to your providers, view your test results, renew prescriptions, schedule appointments, and much more. Follow these instructions to enter your personal Digital Fuel account for the first time: 1. Start your internet browser and type [email or web address] into the address bar. 2. In the New User box on the right-hand side of the Welcome page click the link that states, ???I have an activation code.?? 3. On the Identification page, follow these steps: a) Enter your LookMedBook-S[employer]Move activation code: [email or web address] b) Expires: 07/29/2013 7:43 AM IMPORTANT: This Activation Code will on the above mentioned date. If you do not sign up for Digital Fuel by this date, you will need to request another activation code. c) Enter your date of , using the calendar tool provided. d) Enter your Zip code. e) Select ???submit?? to go to the next page. 4. On the Create Account page, follow these steps: a) Create a Digital Fuel username. This can???t be changed, so choose one you won???t forget. b) Create a password that???s at least six characters long, and that contains at least two numbers.Your password can be changed at any time. Confirm your password by entering it once more. c) Enter your email address. This will be used to alert you to new information. Confirm your email address by entering it once more. d) Enter your security question. This will be used if you forget your password. e) Enter your security answer. Confirm your security answer by entering it once more. f) Select ???submit?? to view your electronic medical record. If you have any questions about LookMedBook-H or your Access Code, please call for [place], for [place] or for [place]. If you need technical support, please e-mail [email or web address]. Remember, myD-H is NOT for urgent needs! Always dial 911 for medical emergencies. documented in this encounter Progress Notes * Nighat oLpez - 06/14/2013 4:58 PM EDT Pt is 1+ mos s/p APR with permanent colostomy and myocutaneous flap and ureteral stent placement. He has had ongoing trouble with voiding and has had his catheter removed but has been incontinent of urine, urinates little several times/d on command and does CISC bid for 8-12 oz each time. Pt and his s.o., Carole, called last week to say they were having difficulty with leaky pouches. Since they spoke with General Surgery RN and have applied the powder and then the Nosting skin prep the pouches have been lasting. When I removed his Surfit 2 1/4 Flexible wafer today there was a large area of leakage around his stoma, but had yet to leak out. This had been on for about 5 days. I had him sit, after cleaning his stoma and skin. His stoma pulls into a significant concave area and thus the problem with leaky pouches. He has recently been given a lot of supplies (5 boxes) of Surfit 2 1/4 flexible wafers and drainable pouches with filter and Invisiclose. I decided to trial a Surfit Large Moldable Convex it wafer today # [id number] and gave him 4 more to take with him. I gave him the order # should these work better. I also gave him the order # for the pouch he is wearing but enc him to request only the wafers until he needs the pouches. He is to r/u with Dr. Hills and myself in 3 mos. I have asked that he call if he has any trouble with leaky pouches sooner. I gave him a belt and paste,should he need to trial these with this wafer. His stoma is red, viable, flush to the skin when lying down, peristomal skin intact except where the peristomal sutures have been irritating. I removed all of these today. * Bobby Hills - 06/14/2013 7:38 AM EDT Colon and Rectal Surgery Follow-up Office Visit BMI ~38 12/30/12 CT CAP - NE mets 01/06/13 - Rectal mass biopsies at 5 cm: Invasive adenocarcinoma. 01/10/13 MRI ([facility])- report pending but T3-T4 - threatened CRM anteriorly (prostate), Impression 1. Enhancing rectal mass, consistent with known rectal carcinoma, which extends from the anal vergeto the rectosigmoid junction. This mass contacts the mesorectal fascia with possible involvement of the posterior prostate gland, making the lesion T3 or T4. 2. Multiple local/regional lymph nodes. Lymphatic involvement can not be excluded. 02/25/2013 finished chemorads 04/23/13 = ~8 weeks Lab Results Component Value Date CEA 1.5 04/06/2013 05/11/13 lap APR en-bloc prostate-SV's, stents, plastic [...] reveal intact nuclear staining in tumor cells. Interval History: CLARIFICATION NEEDED Mr Lani Salazar is seen for his regularly scheduled postoperative check. He underwent a laparoscopic APR with en bloc seminal vesiculectomy and partial prostatectomy with a gracilis flap closure. He has done exceptionally well with still exception of urinary dysfunction requiring I and O catheterization. In terms of his weight, he has started to reverse his weight loss and has actually put on 6 pounds; he is 214 today, up from 208 at last measurement. He is improving, especially over the last two days. He is starting to have a larger stream, and he is currently self-catheterizing twice a day and is having some overflow incontinence and has to get up at night multiple times. But he definitely states that this is making a marked improvement, especially in the last couple of days. We discussed the etiology that is related to his pelvic nerves, the en bloc partial prostatectomy and seminal vesiculectomy, the difficulty of exposure in his pelvis with an anterior-based tumor, and he understands that this is the miller to pay for cure. He denies any surgical site infections in his abdomen or perineum. Although his bottom is still sore, it is definitely getting better. His colostomy is working okay; he had some initial blowouts, but that has gotten better after he discussed it with the surgery nurses here. He still complains of quite a bit of lethargy, which is to be expected after the magnitude of the operation and treatments that he has undergone. Physical Exam: General appearance: Middle-aged gentleman in no apparent distress. Anicteric with moist mucous membranes. He has obviously lost some weight, and he is walking with a cane today. His left lower extremity incision is completely intact. His bottom is completely intact without surgical site infection, and his midline incision is intact without sign of surgical site infection. No hernia or recurrence or anything like that. Please see AYAKA Ferrell-RN, note for details about his colostomy. Impression: Rectal cancer, status post curative-intent surgery. Plan: I think it is too soon for the patient to return to work. 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 I instructed him to continue to slowly increase his physical activity level every day. He is already walking a mile a day, and he needs to do significantly more than this to get his energy back. In addition, he is still having discomfort at night, and I gave him a small refill for some Vicodin. The patient will come back to see me in three months' time for interval oncologic followup. Bobby Hills MD, MS, FACS manager internship Division of Colon and Rectal Surgery [facility] Pager #[phone] documented in this encounter Plan of Treatment Not on file documented as of this encounter Visit Diagnoses Diagnosis Rectal cancer- Primary Malignant neoplasm of rectum 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 status documented in this encounter Care Teams Medicine And Health Service Manager Relationship Specialty Start Date End Date Randa Rosas APRN [address] [place] [address] PCP - General 12/29/12 04/16/22 documented as of this encounter
--- OUTSIDE RECORDS SUMMARY | 2024-11-18 16:59 | XMS_ITS | Encounter Summary ---
Author Organization [facility] [place] [address] Care Team Providers Care Parish Nurse Name Role Phone Randa oRsas APRN Primary Care Provider +1- [phone] Reason for Visit * Reason Comments Follow-up Encounter Details Date Type Department Care Team (Late st Contact Info) Description 09/13/2013 10:30 AM EDT Follow-Up General Surgery at [facility] [place] [phone] Bobby Hills MD Rectal cancer (Primary Dx) [...] Sign Reading Time Taken Comments Blood Pressure 121/74 09/13/2013 10:31 AM EDT Pulse 97 09/13/2013 10:31 AM EDT Temperature 36.5 ??C (97.7 ??F) 09/13/2013 10:31 AM E DT Respiratory Rate 18 09/13/2013 10:31 AM EDT Oxygen Saturation 98% 09/13/2013 10:31 AM EDT Inhaled Oxygen Concentration - - Weight 96.6 kg (213 lb) 09/13/2013 10:31 AM EDT Height - - Body Mass Index 33.35 09/07/2013 8:45 AM EDT documented in this encounter Progress Notes * Jessica, Nighat J - 10/05/2013 9:34 AM EST Post op Clinic Visit Diagnosis: Hospital Problems as of 09/13/2013 None Problem List as of 09/13/2013 Rectal cancer Diabetes mellitus Obesity (BMI 35.0-39.9 without comorbidity) Hypertension Snoring Presence of colostomy Presence of colostomy Surgery/Date: 04/2013, APR with permanent colostomy secondary to rectal ca D/C Date: 05/18/13 VNA/Rehab Facility: discharged Reason for Visit: f/u with Dr. Hills and [facility] Ostomy Supplies: Digital Dandelionate Surfit Large Moldable Convex #[id number], drainable pouch Supplies Ordered/Vendor:[employer], orders Samples Ordered: previously Patient Teaching/Follow-up:pt now 4 mos post op and has been receiving chemo and has just 2 more cycles!. He looks well and is managing well with the colostomy. He states he could change the pouch but Charlette does it for him most of the time. The wafer/pouch are changed twice/wk. Pt empties his own pouch 1-2 times/d and denies any trouble with leaky pouches. 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 He is still having to do CISC bid, because unable to adequately empty his bladder. He is being followed by Urology, He has not had return of erectile function and has not been interested in pursuing possible solutions to this thus far. He has spoken to Urology about it and knows he has some options. He had been on Viagra pre operatively. His stoma is red and viable and the current pouching system is working well and I would not change a thing at this time. He will RTC in 3 mos, we will see at that time. * Michelle Cox PA - 09/13/2013 9:26 PM EDT COLORECTAL SURGERY FOLLOW-UP OFFICE VISIT BMI ~38 12/30/12 CT CAP - NE mets 01/06/13 - Rectal mass biopsies at 5 cm: Invasive adenocarcinoma. 01/10/13 [place] [place] but T3-T4 - threatened CRM [...] nuclear staining in tumor cells. Interval History: Reg Salazar is a 58 y.o. male with a recent history of ypT3No rectal cancer who presents today for his 3 month oncologic f/u. He underwent a laparoscopic APR with en bloc seminal vesiculectomy andpartial prostatectomy with a gracilis flap closure on 05/11/13, and has done relatively well since then with the exception of urinary dysfunction requiring I and O catheterization. He was last seen inclinic on 06/14 for a post-op check by Dr. Hills,at which time he was doing well. He returns todayfor routine oncologic f/u evaluation. The patient reports that he has continued to do well at home since his last visit with us. No complaints of pain. No recent fevers or chills. He did have a cold about a week ago, with chills, but he thinks he has fully recovered from that today. Tolerating a regular diet, no n/v. Weight is up to 213 today, from 205 at the time of surgery. 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 His only complaint is that as as result of the chemo, he has been experiencing numbness in his fingertips,none in his toes. He is still having to straight cath daily, but he is also now able to have spontaneous voiding as well. He continues to wear adult undergarments, and goes through 3-4/day. He tried to stop straight cath about 2 months ago, but promptly developed a kidney infection and had to resume. His bottom is sore only if he sits for a prolonged period, which he occasionally must do for travel for work, but it is definitely getting better. His colostomy is working fine. He empties the appliance 1-2 times a day, and changes it about twice a week. Soft consistency, no pain, no blood, no problems with leaks or peristomal skin irritation. Regarding his chemo, he reports that he has 2 infusions left to finish, one next week and the last one on Oct.05; the mediport will be removed 2-3 wks after the final infusion, and he will remain on Lovenox for about a week after port removal. Current Outpatient Prescriptions on File Prior to Visit Medication Sig Dispense Refill ??? OXYcodone-acetaminophen (PERCOCET) 5-325 mg per tablet Take 1 tablet by mouth every 4 hours as needed for Pain. 180 tablet 0 ??? enoxaparin (LOVENOX) 150 mg/mL Syrg injection 150 mg sc daily 30 Syringe 5 ??? metFORMIN (GLUCOPHAGE) 500 mg tablet Take 1 tablet by mouth 2 times daily (with meals). Crush and take with your meal 60 tablet 1 ??? lisinopril (PRINIVIL;ZESTRIL) 10 mg tablet Take [...] by mouth. Allergies Allergen Reactions ??? Penicillins RASH Physical Exam: Blood pressure 121/74, pulse 97, temperature 36.5 ??C (97.7 ??F), resp. rate 18, weight 96.616 kg (213 lb), SpO2 98.00%. There is no height on file to calculate BMI. On physical exam, the patient looks just great, smiling, gregarious, super pleasant. Anicteric. Moist mucus membranes.No cervical or inguinal adenopathy. The left lower extremity incision is completely intact. His abdomen is round, soft, nontender, without organomegaly or mass. His bottom is completely intact without surgical site infection or palpable hernia on valsalva, as is his midline incision. The patient was seen in conjunction with Enterostomal Therapy nurse Nighat Lopez; please see her note for detailsabout his colostomy. Impression: Rectal cancer, status post curative-intent surgery, currently doing well Plan: The patient appears to be progressing well today, with no concerning ssx on physical exam or by history. He will be finishing his chemo next month, and we wish him well with that endeavor. We will plan to see him back in clinic in 3 months time for his ~6 month interval oncologic f/u, with a CEA prior. He knows to call us with any questions or concerns prior to that visit. Patient examined and discussed with Dr. Bobby Hills, and this note reflects our close collaboration and agreement. Michelle Cox PA-C Division of Colon & Rectal Surgery [facility] [phone] documented in this encounter Plan of Treatment Not on file documented as of this encounter Visit Diagnoses Diagnosis Rectal cancer- Primary Malignant neoplasm of rectum documented in this encounter Care Teams Parish Nurse Relationship Specialty Start Date End Date Randa Rosas APRN [address] [place] [address] PCP - General 12/29/12 04/16/22 documented as of this encounter
--- OUTSIDE RECORDS SUMMARY | 2024-11-18 16:59 | XMS_ITS | Encounter Summary ---
Author Organization [facility] Address [facility] [place] [address] Care Team Providers Care Svp Operations Name Role Phone Randa Rosas APRN Primary Care Provider +1- [phone] Reason for Visit * Reason Comments Rectal Cancer Encounter Details Date Type Department Care Team (Late st Contact Info) Description 07/19/2013 9:30 AM EDT Follow-Up Hematology Oncology at [address] [phone] Nas Dobbs MD Pain (Primary Dx); Rectal cancer Discharge Disposition: Home [...] Sign Reading Time Taken Comments Blood Pressure 98/65 07/19/2013 9:23 AM EDT Pulse 99 07/19/2013 9:23 AM EDT Temperature 36.7 ??C (98.1 ??F) 07/19/2013 9:23 AM ED T Respiratory Rate 18 07/19/2013 9:23 AM EDT Oxygen Saturation 98% 07/19/2013 9:23 AM EDT Inhaled Oxygen Concentration - - Weight 93.7 kg (206 lb 8 oz) 07/19/2013 9:23 AM EDT Height 170.2 cm (5' 7.01) 07/19/2013 9:23 AM ED T Body Mass Index 32.33 07/19/2013 9:23 AM EDT documented in this encounter Progress Notes * Nas Dobbs MD - 07/19/2013 9:38 AM EDT Diagnosis: 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 Status post neoadjuvant chemoradiation therapy with continuous infusion 5 fluorouracil followed by a AP resection. Subjective: Reg is here today for cycle # 3 of FOLFOX chemotherapy. His second cycle went well. He had about 5days of cold intolerance which he did not enjoy but tolerated fine. He's not having any neuropathy.He has been active. He did develop flank pain and was evaluated in the emergency room with a fever.He was found to have a pyelonephritis and started on antibiotics. They turn things around and he isdoing well at the current time. He has not had to catheterize himself for the last 5 days. He stillhas some urinary incontinence occasionally at night but is hopeful that without the catheterizations things will improve. Past medical history and social history are [...] Neurologic: Normal His white count today is 9.2 hemoglobin 9.9 platelet count is 474 ANC 7.36. CMP is remarkable for creatinine of 0.8 and normal liver tests. Glucose is 244. Assessment/Plan: Reg is doing well post resection of his stage II A. Rectal cancer. He is doing exceptionally well with the treatment and is not having really any serious sequelae. His urinary tract infection has improved with antibiotics and since he is no longer self cathing I suspect he won't have any further problems with this. The only urinary problems he is having now is a little bit of incontinence at night and hopefully without the catheterization going on that will slowly improve. We'll go ahead with cycle 3 today as planned and see him back in 2 weeks for cycle 4 of 8 planned treatments. He'll callif issues or problems develop in the interim. documented in this encounter Procedure Notes * Provider, Scanning - 08/02/2013 10:11 AM EDTAssociated Order(s): SCAN DOC: LAB documented in this encounter Plan of Treatment Not on file documented as of this encounter Procedures Procedure Name Priority Date/Time Associated Diagnosis Comments LAB SCAN 08/02/2013 10:11 AM EDT documented in this encounter Results * SCAN DOC: LAB (08/02/2013 10:11 AM EDT) Narrative 08/02/2013 10:11 AM EDT Procedure Note Provider, Scanning - 08/02/2013 10:11 AM EDT Scanning Provider MEDIA MGR SCAN EXT O RDR/RSLT documented in this encounter Visit Diagnoses Diagnosis Pain- Primary Generalized pain Rectal cancer Malignant neoplasm of rectum documented in this encounter Care Teams Svp Operations Relationship Specialty Start Date End Date Randa Rosas APRN [address] [place] [phone] PCP - General 12/29/12 04/16/22 documented as of this encounter
--- OUTSIDE RECORDS SUMMARY | 2024-11-18 16:59 | XMS_ITS | Encounter Summary ---
Author Organization [facility] Address [facility] [place] [address] Care Team Providers Care Telephone Plant Power Operator Name Role Phone Randa Rosas APRN Primary Care Provider +1- [phone] Reason for Visit * Reason Comments Other CADD pump disconnect Encounter Details Date Type Department Care Team (Late st Contact Info) Description 08/11/2013 11:00 AM EDT Office Visit Hematology Oncology at [address] [phone] CLINIC, DR OQUENDO HEM/ONC Rectal cancer (Primary [...] Sign Reading Time Taken Comments Blood Pressure 116/78 08/11/2013 3:09 PM EDT Pulse 89 08/11/2013 3:09 PM EDT Temperature 36.7 ??C (98.1 ??F) 08/11/2013 3:09 PM ED T Respiratory Rate 16 08/11/2013 3:09 PM EDT Oxygen Saturation 98% 08/11/2013 3:09 PM EDT Inhaled Oxygen Concentration - - Weight - - Height - - Body Mass Index - - documented in this encounter Progress Notes * Deborah Adrian RN - 08/11/2013 3:11 PM EDT Treatment Started: 1505 Treatment Ended: Diagnosis: Rectal CA Treatment: Disconnect Continuous Infusion 5FU via CADD pump. Assessment: Patient reports that he is doing well. No complaints of nausea/vomiting. No diarrhea/constipation. 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 He is drinking room temperature liquids and avoiding cold exposure to hands/feet. CADD pump disconnected at 1515. Mediport flushed with 20cc NS and 500 units Heparin. Plan: Return to clinic in 2 weeks for consideration of next cycle of FOLFOX. Patient was reminded to call in the interim with any questions/concerns. documented in this encounter Plan of Treatment Not on file documented as of this encounter Visit Diagnoses Diagnosis Rectal cancer- Primary Malignant neoplasm of rectum documented in this encounter Care Teams Telephone Plant Power Operator Relationship Specialty Start Date End Date Randa Rosas APRN [address] [place] [address] PCP - General 12/29/12 04/16/22 documented as of this encounter
--- OUTSIDE RECORDS SUMMARY | 2024-11-18 16:59 | XMS_ITS | Encounter Summary ---
Author Organization [facility] Address [facility] [place] [address] Care Team Providers Care Cold Patcher Name Role Phone Randa Rosas VALENTIN Primary Care Provider +1- [phone] Encounter Details Date Type Department Care Team (Late st Contact Info) Description 11/16/2013 2:00 PM EST Follow-Up Hematology Oncology at [address] [phone] Nas Dobbs MD Pain; Rectal cancer Discharge [...] Sign Reading Time Taken Comments Blood Pressure 132/85 11/16/2013 2:04 PM EST Pulse 80 11/16/2013 2:04 PM EST Temperature 36.8 ??C (98.2 ??F) 11/16/2013 2:04 PM ES T Respiratory Rate 18 11/16/2013 2:04 PM EST Oxygen Saturation 100% 11/16/2013 2:04 PM EST Inhaled Oxygen Concentration - - Weight 106.1 kg (234 lb) 11/16/2013 2:04 PM EST Height 170.2 cm (5' 7.01) 11/16/2013 2:04 PM ES T Body Mass Index 36.64 11/16/2013 2:04 PM EST documented in this encounter Progress Notes * Nas Dobbs MD - 11/16/2013 2:19 PM EST Diagnosis: 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 Status post neoadjuvant chemoradiation therapy with continuous infusion 5 fluorouracil followed by a AP resection. Subjective: Reg is here today for followup after the completion of adjuvant chemotherapy in the treatment of his rectal cancer. Doing well overall and is not having any neuropathy symptoms. His colostomy function and is normal and he's not having any other issues or problems. Does still get occasional pelvic discomfort related to surgery but even that is getting better but a small refill of Percocet is requested and granted. Review systems otherwise negative Past medical history and social history are reviewed and unchanged from when I saw him 2 Months ago Review of Systems Constitutional: Negative for [...] and axillary nodes normal Neurologic: Normal His lab today was reviewed. CMP is normal except for random glucose of 172 creatinine is 0.7 and liver tests are normal with an ALP of 74. Total cholesterol is good at 155 with HDL of 44 and triglycerides of 96 CEA is 1.1 Assessment/Plan: Reg is doing well post resection of his stage II A. rectal cancer. He is in complete remission. Discussed followup in detail. Long-term plans are to follow him with periodic lab including CEA and toget a yearly CT scan for the next 3 years.we'll see him back in 4 months with a CBC CMP and CEA. He'll call if issues or problems develop in the interim. documented in this encounter Procedure Notes * Provider, Scanning - 02/11/2014 9:16 AM EDTAssociated Order(s): SCAN DOC: LAB documented in this encounter Plan of Treatment Not on file documented as of this encounter Procedures Procedure Name Priority Date/Time Associated Diagnosis Comments LAB SCAN 02/11/2014 9:16 AM EDT documented in this encounter Results * SCAN DOC: LAB (02/11/2014 9:16 AM EDT) Narrative 02/11/2014 9:16 AM EDT Procedure Note Provider, Scanning - 02/11/2014 9:16 AM EDT Scanning Provider MEDIA MGR SCAN EXT O RDR/RSLT documented in this encounter Visit Diagnoses Diagnosis Pain Generalized pain Rectal cancer Malignant neoplasm of rectum documented in this encounter Care Teams Cold Patcher Relationship Specialty Start Date End Date Randa Rosas APRN [address] [place] [phone] PCP - General 12/29/12 04/16/22 documented as of this encounter
--- OUTSIDE RECORDS SUMMARY | 2024-11-18 16:59 | XMS_ITS | Encounter Summary ---
Author Organization [facility] Address [facility] [place] [address] Care Team Providers Care Project Drilling Engineer Name Role Phone Randa Rosas APRN Primary Care Provider +1- [phone] Reason for Visit * Reason Comments Chemotherapy Encounter Details Date Type Department Care Team (Jorge st Contact Info) Description 08/09/2013 9:30 AM EDT Office Visit Hematology Oncology at [address] [phone] CLINIC, DR OQUENDO HEM/ONC Rectal cancer (Primary [...] Progress Notes * Miriam Dubois RN - 08/09/2013 4:39 PM EDT TIME TREATMENT STARTED: 915 TIME TREATMENT ENDED: 1420 Reg Emmanuelle Salazar, 58 y.o. male with diagnosis of rectal cancer is here for chemotherapy infusion of folfox. PROTOCOL: no CYCLE: 4 - delayed DAY: 1 S: Pt. offers no complaints at this time. O: Mediport with no blood returned - cathflo administered as documented with good effect. Chemotherapy orders independently verified for correct drug name, route and dosage per patient's height, weight and BSA by Miriam Dubois RN and onsite pharmacist. Pump running appropriately upon patient leaving clinic - chemo check by Miriam Dubois, GET and Virginia Madrigal, GET. REACTIONS (DESCRIPTION, TIME, INTERVENTION AND EFFECTIVENESS) none A: Pt. Tolerated treatment well. Reg Salazar confirms that all questions and issues have been addressed. P: Return to clinic as scheduled on for pump disconnect. * Lindsay Kenny - 08/09/2013 11:27 AM EDT * Pharmacist Waste Documentation * Drug: oxaliplatin Date Administered: 08/09/13 (mm/dd/yy) Time: 1115 Amount Pharmacy Discarded: 18 mg documented in [...] 2 mg, INTRA-CATHETER, ONCE, 1 dose, On Thu08/09/13 at 0930, Instill into occluded lumen as directed., Routine Given 08/09/2013 9:15 AM EDT 2 mg dexamethasone (DECADRON) tablet 10 mg 10 mg, Oral, ONCE, 1 dose, On Thu08/09/13 at 0930, Pre chemo, Routine Given 08/09/2013 10:20 AM EDT 10 mg fluorouracil (ADRUCIL) chemo injection 855 mg 855 mg, Intravenous, ONCE, 1 dose, On Thu08/09/13 at 0930, Administer over 5 Minutes Given 08/09/2013 1:50 PM EDT 855 mg 205.2 mL/hr fosaprepitant (EMEND) 150 mg in sodium chloride 0.9% 155 mL infusion 150 mg, Intravenous, ONCE, 1 dose, On Thu08/09/13 at 0930, Administer over 30 Minutes, Pre chemo New Bag 08/09/2013 10:30 AM EDT 150 mg 310 mL/hr leucovorin 43 mg in dextrose 5% 504.3 mL infusion 43 mg, Intravenous, ONCE, 1 dose, On Thu08/09/13 at 0930, Administer over 120 Minutes New Bag 08/09/2013 11:37 AM EDT 43 mg 252.2 mL/hr OXALIplatin (ELOXATIN) 182 mg in dextrose 5% 286.4 mL chemo infusion 182 mg, Intravenous, ONCE, 1 dose, On Thu08/09/13 at 0930, Administer over 120 Minutes, Vesicant/irritant. Avoid extravasation. Compatible with dextrose-containing solution only. New Bag 08/09/2013 11:37 AM EDT 182 mg 143.2 mL/hr palonosetron (ALOXI) injection 0.25 mg 0.25 mg, Intravenous, ONCE, 1 dose, On Thu08/09/13 at 0930, Pre chemo, Routine Given 08/09/2013 10:20 AM EDT 0.25 mg documented in this encounter Care Teams Project Drilling Engineer Relationship Specialty Start Date End Date Randa Rosas APRN [address] [place] [address] PCP - General 12/29/12 04/16/22 documented as of this encounter
--- OUTSIDE RECORDS SUMMARY | 2024-11-18 16:59 | XMS_ITS | Encounter Summary ---
Author Organization [facility] Address [facility] [place] [address] Care Team Providers Care Screening Nurse Name Role Phone Randa Rosas APRN Primary Care Provider +1- [phone] Encounter Details Date Type Department Care Team (Late st Contact Info) Description 06/09/2013 Telephone General Surgery at [facility] [place] [phone] Mercy Kidd, RN Social History Tobacco Use Types Packs/Day [...] encounter Miscellaneous Notes * Telephone Encounter - Mercy Kidd RN - 06/09/2013 4:42 PM EDT I received a call from Charlette about the pt having problems with leaking of his ostomy bag. I spoke with both Charlette and Reg. It sounds like they have been putting the stoma powder on last before applying the wafer. I reviewed the steps they should be taking with both of them and had Reg write them down. If he tries this and the appliance still leaks by tomorrow, then I have asked that he call and speak with the ostomy nurse tomorrow, otherwise he will follow up with them on Thursday. The pt states that the [facility]NA says that he has an innie for a stoma. I made sure that he has enough of his current pouches to last through Thursday, and I told him that the ostomy nurse will assess his stoma then and change the pouch as needed. 1. If you need adhesive remover, use that first. 2. Wash the justin stoma skin with warm water and soap gently and then rinse off with a wet washcloth. (If pt is comfortable showering he can do that instead.) Pat dry. 3. Dust justin-stomal skin with stoma adhesive powder and wipe away the excess. 4. Apply Skin Prep to the justin-stomal skin, making sure to go over all the areas that had powder placed. 5. Apply wafer as you have been. 6. Place a hot pack/heating pad over the wafer to help it mold better for about 5-10 minutes. Pt and is significant other verbalize their understanding and agree wiht the plan. documented in this encounter Plan of Treatment Not on file documented as of this encounter Visit Diagnoses Not on filedocumented in this encounter Care Teams Screening Nurse Relationship Specialty Start Date End Date Randa Rosas APRN [address] [place] [phone] PCP - General 12/29/12 04/16/22 documented as of this encounter
--- OUTSIDE RECORDS SUMMARY | 2024-11-18 16:59 | XMS_ITS | Encounter Summary ---
Author Organization [facility] Address [facility] [address] Care Team Providers Care Reimbursement Coordinator Name Role Phone Randa Rosas APRN Primary Care Provider +1- [phone] Reason for Visit * Reason Comments Other Encounter Details Date Type Department Care Team (Late st Contact Info) Description 07/21/2013 4:00 PM EDT Office Visit Hematology Oncology at [address] [phone] CLINIC, DR OQUENDO HEM/ONC Nas Dobbs MD Rectal cancer (Primary Dx) [...] Sign Reading Time Taken Comments Blood Pressure 113/65 07/21/2013 3:52 PM EDT Pulse 89 07/21/2013 3:52 PM EDT Temperature 36.8 ??C (98.2 ??F) 07/21/2013 3:52 PM ED T Respiratory Rate 18 07/21/2013 3:52 PM EDT Oxygen Saturation 99% 07/21/2013 3:52 PM EDT Inhaled Oxygen Concentration - - Weight - - Height - - Body Mass Index - - documented in this encounter Progress Notes * Deborah Adrian RN - 07/21/2013 3:54 PM EDT Treatment Started: 1535 Treatment Ended:1555 Diagnosis: Rectal CA Treatment: CADD pump disconnect and mediport de-access Assessment: Patient here for his 5FU CADD pump disconnect. He reports that he is feeling well. Has no complaints. No n/v, bowels working well. No pain. He is back to work and feels that is going well. CADD pump disconnected at 1545. Mediport flushed and de-accessed. Plan: Patient will RTC in 2 weeks for FOLFOX. He was reminded to call in the interim with any questions/concerns. documented in this encounter Plan of Treatment Not on file documented as of this encounter Visit Diagnoses Diagnosis Rectal cancer- Primary Malignant neoplasm of rectum documented in this encounter Care Teams Reimbursement Coordinator Relationship Specialty Start Date End Date Randa Rosas APRN [address] [place] [address] PCP - General 12/29/12 04/16/22 documented as of this encounter
--- OUTSIDE RECORDS SUMMARY | 2024-11-18 16:59 | XMS_ITS | Encounter Summary ---
Author Organization [facility] Address [facility] [place] [address] Care Team Providers Care Pulmonary Care Nurse Name Role Phone Randa Rosas APRN Primary Care Provider +1- [phone] Reason for Visit * Reason Comments Chemotherapy FOLFOX # 4 Encounter Details Date Type Department Care Team (Late st Contact Info) Description 08/02/2013 10:30 AM EDT Office Visit Hematology Oncology at [address] [phone] CLINIC, DR OQUENDO HEM/ONC Hemanth Nelson MD [facility] DR [place] [address] Rectal cancer (Primary Dx) Discharge Disposition: Home [...] Sign Reading Time Taken Comments Blood Pressure 112/81 08/02/2013 10:22 AM EDT Pulse 110 08/02/2013 10:22 AM EDT Temperature 36.6 ??C (97.9 ??F) 08/02/2013 10:22 AM E DT Respiratory Rate 18 08/02/2013 10:22 AM EDT Oxygen Saturation 98% 08/02/2013 10:22 AM EDT Inhaled Oxygen Concentration - - Weight 95.7 kg (211 lb) 08/02/2013 10:22 AM EDT Height 170.2 cm (5' 7.01) 08/02/2013 10:22 AM E DT Body Mass Index 33.04 08/02/2013 10:22 AM EDT documented in this encounter Progress Notes * Deborah Adrian RN - 08/02/2013 10:23 AM EDT INFUSION THERAPY ADMINISTRATION NOTES DIAGNOSIS: Rectal CA CYCLE #: 4 - HELD (See note below) REASON FOR VISIT: FOLFOX Chemotherapy SUBJECTIVE Mr. Salazar is here for his 4th cycle of FOLFOX chemotherapy. He reports that he was in the ER again on Wednesday 07/25 for a recurrent kidney infection. He has a few days left of a 10-day course of antibiotics (Patient does not remember what antibiotic). He reports that continues to have urinary leakage at night especially and wears a depends. He has to self-catheterize twice daily. He has no pain, no fevers at this time. OBJECTIVE LAB DATA: wbc 5.75, hgb 9.7, plts 310k, anc 4.09 Dr. Nelson consulted (covering for Dr. Dobbs who is on vacation) with above report of ER visit.Dr. Nelson would like to hold FOLFOX this week and have patient finish course of antibiotic. He will be scheduled to see Dr. Dobbs in one week with labs for consideration of cycle 4 chemotherapy. IV ACCESS: Mediport Right Chest, accessed at [facility] for labs BLOOD RETURN: yes, excellent ANY S/S OF INFECTION/EXTRAVASATIONS: None IV FLUSHED WITH: 20cc NS and 500 units Heparin IV DISCONTINUED: yes ASSESSMENT Mr. Salazar was awake, alert and he tolerated treatment well. PLAN Mr. Salazar will complete his course of antibiotics. He will return to clinic in one week to see Dr. Dobbs for consideration of cycle 4 FOLFOX at that time. He will call with any questions/concerns. documented in this encounter Plan of Treatment Not on file documented as of this encounter Visit Diagnoses Diagnosis Rectal cancer- Primary Malignant neoplasm of rectum documented in this encounter Care Teams Pulmonary Care Nurse Relationship Specialty Start Date End Date Randa Rosas APRN [address] [place] [phone] PCP - General 12/29/12 04/16/22 documented as of this encounter
--- OUTSIDE RECORDS SUMMARY | 2024-11-18 16:59 | XMS_ITS | Encounter Summary ---
Author Organization [facility] [place] [address] Care Team Providers Care Varnish Dipper Name Role Phone Orlando Rosas APRN Primary Care Provider +1- [phone] Encounter Details Date Type Department Care Team (Latest Contact Info) Description 10/28/2013 7:40 AM EST - 10/28/2013 11:59 PM EST Hospital [place] [phone] CLINIC, DR VIRGILIO Dobbs, Nas Weaver MD [...] Sign Reading Time Taken Comments Blood Pressure 111/71 10/28/2013 9:45 AM EST Pulse 85 10/28/2013 9:45 AM EST Temperature 36.1 ??C (97 ??F) 10/28/2013 9:00 AM EST Respiratory Rate 18 10/28/2013 9:45 AM EST Oxygen Saturation 96% 10/28/2013 9:45 AM EST Inhaled Oxygen Concentration - - Weight - - Height - - Body Mass Index - - documented in this encounter Discharge Instructions * Discharge Instructions* Theo Rojas RN - 10/28/2013 8:[address] [facility] Vascular and Interventional Radiology Discharge Instructions for your Chest Port Removal Activity: Relax for the next 24 hours Diet: Drink plenty of fluids. Resume your regular diet Bandage: There is a sterile dressing consisting of small gauze with a clear dressing (Tegaderm or IV 3000). This dressing should be left in place for 48 hours. If the clear dressing becomes loose youshould place tape over the edges to secure it in place. No tub baths, swimming or whirlpools for 1 week. No showering for 48 hours. Note: If you have steri-strips beneath your dressing, simply allow them to fall off. Do not peel them off. There may be Indermil (skin glue) also, allow this to flake off. Do not pick this off. When to call your healthcare provider: If you notice bleeding from the incision on your chest, you should lie flat and apply firm pressureover the site for 10-15 minutes, keeping the site covered and call your doctor. If you are still bleeding after 10-15 minutes, reapply pressure, and have someone drive you to the nearest Emergency Department, or call 911. If you develop pain, redness, drainage or swelling at or around chest incision site. If you develop a fever equal to or greater than 101 degrees Fahrenheit. When to call the Interventional Radiology Department: Please call with any questions or concerns. If it is during regular office hours, please call [phone]. If it is after regular office hours, or on weekends or holidays, please call [phone] and ask to speak to the Recreation Worker director transportation for Interventional Radiology. You have received medication during your procedure to help lesson anxiety and keep you comfortable.These medications affect judgement and reaction time. We recommend that you do not drive, operate equipment, sign any important documents, or smoke unattended for 24 hours following your procedure. Because of the sedation, be careful on stairs, as you may be unsteady on your feet. You may resume your regular diet as tolerated. IV site -- slight redness, or tenderness is normal, you can use a warm compress. If tenderness and redness increases or foul drainage occurs, please contact your M. D. 12/12/11 documented in this encounter Medications at Time of Discharge Medication Sig Dispensed Refills Start Date End Date atorvastatin (LIPITOR) 40 mg tablet Take 40 mg by mouth daily. glipiZIDE (GLUCOTROL) 10 mg 24 hr tablet Take 10 mg by mouth 2 times daily. multivitamin (THERAGRAN) tablet Take 1 tablet by mouth daily. OXYcodone-acetaminophe n (PERCOCET) 5-325 mg per tabletIndications:Pain ,Rectal cancer Take 1 tablet by mouth every 4 hours as needed for Pain. 100 tablet 0 10/05/2013 11/16/2013 enoxaparin (LOVENOX) 150 mg/mL Syrg injectionIndications:R ectal cancer,Blood clot in vein 150 mg sc daily 30 Syringe 5 2013 11/16/2013 metFORMIN (GLUCOPHAGE) 500 mg tablet Take 1 tablet by mouth 2 times daily (with meals). Crush and take with your meal 60 tablet 1 05/18/2013 01/30/2014 lisinopril (PRINIVIL;ZESTRIL) 10 mg tablet Take 10 mg by mouth 2 times daily. 01/31/2022 sildenafil (VIAGRA) 100 mg tablet Take 100 mg by mouth as needed. 11/18/2017 INDOMETHACIN ORAL Take by mouth. Reported on 01/01/2017 08/03/2020 documented as of this encounter Progress Notes * Tavo Baker MD - 10/28/2013 8:13 AM EST Addendum: The patient's history and physical exam have been reviewed and completed. There has been no interval change from that of the pre-operative history and physical exam done within the last 30 days. Risks (including hemorrhage, infection, damage to surrounding structures, respiratory depression), and benefits discussed and patient consented to the procedure. Physical Exam Heart: RRR Lungs: clear ASA Classification: ASA 2 - Patient with mild systemic disease with no functional limitations Mallampati Classification: III (soft palate, base of uvula visible) * Theo Rojas RN - 10/25/2013 1:00 PM EST VIR NURSING DATABASE Name: ADRIEN CHEUNG Date of : 1955 AGE 58 y.o. Address: [address] [phone] (home) [phone] (work) Mobile: No relevant phone numbers on file. Referring Provider: Nas Dobbs Reason for Visit: Mediport removal: No longer needed, treatment completed. (Assessment/plan from provider's note, bottom of page) Copy/paste from provider's note Allergies Allergen Reactions ??? Penicillins Rash Pertinent PMH: Patient Active Problem List Diagnosis Code ??? Rectal cancer 154.1 ??? Diabetes mellitus 250.00 ??? Obesity (BMI 35.0-39.9 without comorbidity) 278.00 ??? Hypertension 401.9 ??? Snoring 786.09 ??? Colostomy in place V44.3 ??? Colostomy in place V44.3 Past Medical History Diagnosis Date ??? ED (erectile dysfunction) ??? HTN (hypertension) ??? Gout ??? Hyperlipemia ??? DM (diabetes mellitus) type 2 ??? Obesity ??? 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 Hypercoagulable state Protein S deficiency ??? Rectal cancer Pertinent PSH: Past Surgical History Procedure Date ??? Colonoscopy 12/17/2012 discovered rectal invasive adenocarcinoma ??? Nasal polyp surgery ??? Tonsillectomy and adenoidectomy ??? Vasectomy ??? Pilonidal cyst excision ??? Lap, surg proctectomy w colostomy 05/11/2013 @LAPAROSCOPIC PROCTECTOMY, COMPLETE, APR W COLOSTOMY performed by Bobby Hills MD at [facility] MAIN OR ??? Remove abd lymph nodes rad regnl 05/11/2013 @LYMPHADENECTOMY,ABDOMINAL,REGIONAL,MULTIPLE NODES performed by Bobby Hills MD at [facility] OR ??? Exclusion, small bowel from pelvis 05/11/2013 @EXCLUSION OF SMALL INTESTINE FROM PELVIS performed by Bobby Hills MD at [facility] OR ??? Muscle-skin flap, leg 05/11/2013 FLAP, MYOCUTANEOUS OR FASCIOCUTANEOUS, LOWER EXTREMITY performed by Oscar Soto MD at [facility] MAIN OR ??? Adj tiss xfer scalp, extrem 10.1-30 05/11/2013 ADJ.TISSUE TRANSFER, REARRANGEMENT, 10.1 TO 30 SQ.CM, LEGS performed by Oscar Soto MD at [facility] MAIN OR ??? Cystoscopy, insert ureteral stent 05/11/2013 CYSTO, STENT PLACEMENT INTRAOP, TEMPORARY performed by Mark Khan MD at [facility] MAIN OR ??? Omental flap, intra-abdominal 05/11/2013 @OMENTAL FLAP, INTRA-ABDOMINAL performed by Mark Khan MD at [facility] MAIN OR Date/Procedure Comments: 01/10/13 Mediport placement R Clinda 600mg/ Fentanyl 75mcg/ Versed 1.5mg 10-27-13 Mediport Removal Clindamycin 600mg. IV, Fentanyl 150mcg,, Versed 3mg. IV Laboratory Results: PLT 198--SCANNED DOCUMENTS FROM 10/05/13 Medications: Prior to Admission medications Medication Sig Start Date End Date Taking? Authorizing Provider OXYcodone-acetaminophen (PERCOCET) 5-325 mg per tablet Take 1 tablet by mouth every 4 hours as needed for Pain. 10/05/13 Nas Dobbs MD enoxaparin (LOVENOX) 150 mg/mL Syrg injection 150 mg sc daily 06/16/13 Nas Dobbs MD metFORMIN (GLUCOPHAGE) 500 mg tablet Take 1 tablet by mouth 2 times daily (with meals). Crush and take with your meal 05/18/13 Dominique Pichardo MD lisinopril (PRINIVIL;ZESTRIL) 10 mg tablet Take 10 mg by mouth 2 times daily. Raffi Victoria MD atorvastatin (LIPITOR) 40 mg tablet Take 20 mg by mouth daily. 1/2 tab= 20mg Raffi Victoria MD sildenafil (VIAGRA) 100 mg tablet Take 100 mg by mouth as needed. Raffi Victoria MD glipiZIDE (GLUCOTROL) 10 mg 24 hr tablet Take 10 mg by mouth daily. Raffi Victoria MD multivitamin (THERAGRAN) tablet Take 1 tablet by mouth daily. Raffi Victoria MD INDOMETHACIN ORAL Take by mouth. Raffi Victoria MD For outpatient procedures: This patient has been informed that they require a street flusher driver to drive them home after this procedure. In the absence of a street flusher driver, IR will not be able to perform this procedureand will need to reschedule. Pt verbalized understanding of these instructions during the pre-procedure education via phone. * Swetha Warren PA - 10/25/2013 12:26 PM EST Images from the original note were not included. PRE-PROCEDURE VIR NOTE Date of : 1955 Age: 58 y.o. PCP: ORLANDO ROSAS APRN Referring Physician (if different): Rinku Indication: No longer needed treatment complete Planned Procedure: port removal Chief Complaint/Diagnosis: 58 yo female with a h/o rectal cancer s/p port placement on 01/10/13. Port no longer needed as treatment is complete. Of note on CT from 04/06/13 a nonocclusive thrombus notedextending from tip of right central venous catheter and extending into the superior vena cava. He is on Lovenox. Pertinent Past Medical/Surgical History: Patient Active Problem List Diagnosis Code ??? Rectal cancer 154.1 ??? Diabetes mellitus 250.00 ??? Obesity (BMI 35.0-39.9 without comorbidity) 278.00 ??? Hypertension 401.9 ??? Snoring 786.09 ??? Colostomy in place V44.3 ??? Colostomy in place V44.3 Allergies Allergen Reactions ??? Penicillins RASH Current Outpatient Prescriptions on File Prior to Encounter Medication Sig Dispense Refill ??? OXYcodone-acetaminophen (PERCOCET) 5-325 mg per tablet Take 1 tablet by mouth every 4 hours as needed for Pain. 100 tablet 0 ??? enoxaparin (LOVENOX) 150 mg/mL [...] daily. ??? INDOMETHACIN ORAL Take by mouth. Pertinent ROS: as per HPI Pertinent Family History: non contributory Social History: n/a Labs: Lab Results Component Value Date WBC 6.9 05/15/2013 HCT 30.2* 05/15/2013 PLATELET 240 05/15/2013 INR 0.9 04/06/2013 BUN 11 05/16/2013 Lab Results Component Value Date ALKPHOS 73 04/06/2013 AST 16 04/06/2013 ALBUMIN 4.3 04/06/2013 BILIDIR 0.1 04/06/2013 BILITOT 0.3 04/06/2013 ALT 22 04/06/2013 Physical Exam: pending ASA: Mallampati Class: Assessment / Plan: Port removal Medications to discontinue: Hold Lovenox day of procedure Prophylactic antibiotic: clindamycin 600 mg IV Planned access site / position: supine documented in this encounter Procedure Notes * Swetha Bell MD - 10/28/2013 10:26 AM ESTProcedure(s): IR MEDIPORT PLACEMENT Adrien Cheung JANITOR HEAD: RINKU Procedure: Mediport removal Indication: Treatment complete; removal requested. Findings and Intervention: Informed consent obtained. Maximal sterile barrier technique was used throughout the procedure. Sterile prep and drape. Preprocedure IV antibiotics administered. Blunt and sharp dissection used to remove, intact, single lumen mediport. Wound copiously irrigated. Closed with interrupted deep 2-0 vicryl sutures and running subcuticular 4-0 suture. Hemostasis achieved. Pre procedure fluoroscopic images [...] 0.25% bupivicaine administered SQ. Fellow/Resident: none Attending: Denae Dr. Bell performed this procedure. EBL: <1cc documented in this encounter Miscellaneous Notes * Miscellaneous - Provider, Scanning - 11/09/2013 2:49 PM EST * Miscellaneous - Provider, Scanning - 11/09/2013 2:14 PM EST documented in this encounter Plan of Treatment Not on file documented as of this encounter Procedures Procedure Name Priority Date/Time Associated Diagnosis Comments IR MEDIPORT PLACEMENT Routine 10/28/2013 8:47 AM EST Rectal cancer POCT GLUCOSE Routine 10/28/2013 8:14 AM EST documented in this encounter Results [...] Philippe performed this procedure. EBL: <1cc Nas Dobbs MD IMG IR ORDERABLES * (ABNORMAL) POCT Glucose (10/28/2013 8:14 AM EST) [facility] Glucose, POC 232(H) 60 - 199 mg/dL [facility] Comment: Supplemental ranges: <110 mg/dL before meals <200 mg/dL all other times of the day Blood specimen (specimen) 10/28/2013 8:14 AM EST 10/28/2013 8:14 AM EST Nas Dobbs MD POINT OF CARE TEST O RDERABLES [facility] documented in this encounter Visit Diagnoses Diagnosis Rectal cancer Malignant neoplasm of rectum documented in this encounter Administered Medications Inactive Administered Medications - up to 3 most recent administrations Medication Order MAR Action Action Date Dose Rate Site clindamycin (CLEOCIN) 600mg in dextrose 5% 50mL 600 mg, Intravenous, ONCE, 1 dose, On Thu10/28/13 at 0815, Administer over 20 Minutes, Give over 30-60 minutes. Do not exceed 30mg/minute. Redose after 4 hours., Day of Surgery (Day of Procedure), Indication for (Active or Suspected): Prophylaxis Given 10/28/2013 8:15 AM EST 600 mg 150 mL/hr fentaNYL 50mcg/mL injection 25-50 mcg, Intravenous, EVERY 5 MIN PRN, Starting on Thu10/28/13 at 0750, Until Thu10/28/13 at 0845, Pain, per unit protocol, Angio/IR (Intra-Procedure), Routine Given 10/28/2013 8:45 AM EST 150 mcg midazolam (VERSED) injection 0.5-1 mg 0.5-1 mg, Intravenous, EVERY 5 MIN PRN, Starting on Thu10/28/13 at 0750, Until Thu10/28/13 at 0845, Anxiety, per unit protocol, Angio/IR (Intra-Procedure), Routine Given 10/28/2013 8:45 AM EST 3 mg sodium chloride 0.9 % flush 5 mL 5 mL, Intravenous, EVERY 12 HOURS, First dose on Thu10/28/13 at 0815, Until Discontinued, Day of Surgery (Day of Procedure), Routine Given 10/28/2013 8:15 AM EST 5 mLs documented in this encounter Care Teams Varnish Dipper Relationship Specialty Start Date End Date Orlando Rosas APRN [address] [place] [phone] PCP - General 12/29/12 04/16/22 documented as of this encounter
--- OUTSIDE RECORDS SUMMARY | 2024-11-18 16:59 | XMS_ITS | Encounter Summary ---
Author Organization [facility] Address [facility] [place] [address] Care Team Providers Care Budget Assistant Name Role Phone Randa Rosas APRN Primary Care Provider +1- [phone] Reason for Visit * Reason Comments Colon Cancer Disconnect CADD pump Encounter Details Date Type Department Care Team (Late st Contact Info) Description 09/09/2013 12:00 PM EDT Office Visit Hematology Oncology at [address] [phone] CLINIC, DR OQUENDO HEM/ONC Paul Rain MD [facility] [place] [place] [address] Colon cancer (Primary Dx) Discharge Disposition: Home Social [...] Progress Notes * Sandra Flores RN - 09/09/2013 3:25 PM EDT INFUSION THERAPY ADMINISTRATION NOTES TIME TREATMENT STARTED: xxx TIME TREATMENT ENDED: xxx DIAGNOSIS: Colorectal Cancer REASON FOR VISIT: MEDIPORT FLUSH ONLY IV ACCESS: Mediport GAUGE: 19G BLOOD RETURN: yes ANY S/S OF INFECTION/EXTRAVASATIONS: no signs of IV complications observed IV FLUSHED WITH: 20cc NS and 500 units Heparin IV DISCONTINUED: yes ASSESSMENT: Patient tolerated treatment well. PLAN: Return to clinic per routine. documented in this encounter Plan of Treatment Not on file documented as of this encounter Visit Diagnoses Diagnosis Colon cancer- Primary Malignant neoplasm of colon, unspecified site documented in this encounter Care Teams Budget Assistant Relationship Specialty Start Date End Date Randa Rosas APRN [address] [place] [phone] PCP - General 12/29/12 04/16/22 documented as of this encounter
--- OUTSIDE RECORDS SUMMARY | 2024-11-18 16:59 | XMS_ITS | Encounter Summary ---
Author Organization [facility] Address [facility] [place] [address] Care Team Providers Care Seed Technician Name Role Phone Randa Rosas APRN Primary Care Provider +1- [phone] Reason for Visit * Reason Comments Rectal Cancer Encounter Details Date Type Department Care Team (Late st Contact Info) Description 06/29/2014 3:30 PM EDT Follow-Up Hematology Oncology at [address] [phone] Nas Dobbs MD Back pain; Rectal cancer Discharge Disposition: Home Social History [...] Sign Reading Time Taken Comments Blood Pressure 114/66 06/29/2014 3:14 PM EDT Pulse 81 06/29/2014 3:14 PM EDT Temperature 36.6 ??C (97.9 ??F) 06/29/2014 3:14 PM ED T Respiratory Rate 20 06/29/2014 3:14 PM EDT Oxygen Saturation 98% 06/29/2014 3:14 PM EDT Inhaled Oxygen Concentration - - Weight 109.8 kg (242 lb) 06/29/2014 3:14 PM EDT Height 170.2 cm (5' 7.01) 06/29/2014 3:14 PM ED T Body Mass Index 37.89 06/29/2014 3:14 PM EDT documented in this encounter Progress Notes * Nas Dobbs MD - 06/29/2014 3:49 PM EDT Diagnosis: 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 Status post neoadjuvant chemoradiation therapy with continuous infusion 5 fluorouracil followed by a AP resection. The patient then had 8 cycles of adjuvant FOLFOX chemotherapy Subjective: Reg comes in today for followup on his rectal cancer. Since I last saw him he has made some improvement. He is still having a lot of problems with his bladder and has to self cath some, but he is urinating some on his own now and his residual volumes seem to be getting less. Unfortunately, he is having problems with recurrent infections, but he is getting better at managing that as well. His ostomy is working well, and his bowels are fine. He is working about 50 hours a week now and is starting to have occasional back pain. His colostomy and weight is probably not helping that and he is using an occasional Percocet, but it is not very often. He does request a refill. I believe he is using it appropriately so one is granted. Otherwise, review of systems is negative. He has not had any further episodes of chest pain. Review of Systems Constitutional: Negative for fever, [...] normal Neurologic: Normal Review of his laboratory studies show a normal tumor marker with a CEA of 0.7. CMP shows normal liver tests including an ALP of 64 and normal renal function with a creatinine of 0.7. CBC shows a white count of 6.7, hemoglobin 12.7, hematocrit 38.5 and a platelet count of 249,000. Assessment/Plan: Reg is doing well with no evidence of recurrent colon cancer. He is doing better with some of the sequela of his radiation and surgery, and I will be optimistic that he may be able to get where he does not require self catheterizations. We talked about followup and decided to go ahead and see him back with a CT [place] [facility] along with a CBC, CMP and CEA in about four months. We will get the lab prior to the CT. He will let us know if there are any issues or problems in the interim. documented in this encounter Plan of Treatment Not on file documented as of this encounter Results * CEA (10/16/2014 8:33 AM EST) Carcinoembryonic Antigen 1.7 <=3.8 ng/mL [facility] Comment: Reference range: ??(20-69 years): Non-smoker: ??less than or equal to 3.8 ng/mL Smoker: ??less than 5.5 ng/ml Blood specimen (specimen) 10/16/2014 8:33 AM EST 10/16/2014 8:39 AM EST Narrative Resulting Agency Comment Spec In Lab Nas Dobbs MD CHEMISTRY ORDERABLES [facility] * (ABNORMAL) Comprehensive metabolic panel (non-fasting) (10/16/2014 8:33 AM EST) Glucose 130 60 - 199 mg/dL [facility] Comment:Diabetes: >=200 mg/d L plus symptoms Blood Urea Nitrogen 10 10 - 20 mg/dL [facility] Creatinine 0.74(L) 0.80 - 1.50 mg/dL [facility] Comment: Please note that the pediatric reference intervals supplied above were not validated at [facility]. Results from pediatric patients should be interpreted [...] the following links into your internet browser. [email or web address] Blood specimen (specimen) 10/16/2014 8:33 AM EST 10/16/2014 8:39 AM EST Narrative Resulting Agency Comment Spec In Lab Nas Dobbs MD CHEMISTRY ORDERABLES [facility] documented in this encounter Visit Diagnoses Diagnosis Back pain Backache, unspecified Rectal cancer Malignant neoplasm of rectum documented in this encounter Care Teams Seed Technician Relationship Specialty Start Date End Date Randa Rosas APRN [address] [place] [phone] PCP - General 12/29/12 04/16/22 documented as of this encounter
--- OUTSIDE RECORDS SUMMARY | 2024-11-18 16:59 | XMS_ITS | Encounter Summary ---
Author Organization [facility] Address [facility] [place] [address] Care Team Providers Care Brusher Machine Name Role Phone Randa Rosas VALENTIN Primary Care Provider +1- [phone] Reason for Visit * Reason Onset Date Comments Medication Refill 2013 Encounter Details Date Type Department Care Team (Late st Contact Info) Description 2013 Refill Hematology Oncology at [address] [phone] Michaela lAvares RN Rectal cancer (Primary Dx); Blood clot in vein Social History Tobacco Use Types Packs/Day Years [...] encounter Miscellaneous Notes * Telephone Encounter - Michaela Alvares RN - 2013 2:40 PM EDT Patient called requesting refills on his lovenox stating that the pharmacy told himthis morning that he only has 2 injections left on current prescription. I conferred with Dr. Dobbs who states that as patient will need to stay on lovenox throughout his chemotherapy with port he would allow 5 refills on this prescription. Refill electronically transmitted to [facility] (aka [facility]) in [place]. Telephone call to Reg to inform him that this refill has been sent in. documented in this encounter Plan of Treatment Not on file documented as of this encounter Visit Diagnoses Diagnosis Rectal cancer- Primary Malignant neoplasm of rectum Blood clot in vein Embolism and thrombosis of unspecified site documented in this encounter Care Teams Brusher Machine Relationship Specialty Start Date End Date Randa Rosas APRN [address] [place] [phone] PCP - General 12/29/12 04/16/22 documented as of this encounter
--- OUTSIDE RECORDS SUMMARY | 2024-11-18 16:59 | XMS_ITS | Encounter Summary ---
Author Organization [facility] Address [facility] [place] [address] Care Team Providers Care Gui Developer Name Role Phone AlisonRanda VALENTIN Primary Care Provider +1- [phone] Encounter Details Date Type Department Care Team (Late st Contact Info) Description 09/07/2013 9:00 AM EDT Follow-Up Hematology Oncology at [address] [phone] Carla Tavera, Slime Lopez, RN Rectal cancer (Primary Dx) Discharge Disposition: [...] Sign Reading Time Taken Comments Blood Pressure 128/75 09/07/2013 8:45 AM EDT Pulse 85 09/07/2013 8:45 AM EDT Temperature 36.7 ??C (98 ??F) 09/07/2013 8:45 AM EDT Respiratory Rate 18 09/07/2013 8:45 AM EDT Oxygen Saturation 98% 09/07/2013 8:45 AM EDT Inhaled Oxygen Concentration - - Weight 98.7 kg (217 lb 8 oz) 09/07/2013 8:45 AM EDT Height 170.2 cm (5' 7.01) 09/07/2013 8:45 AM ED T Body Mass Index 34.06 09/07/2013 8:45 AM EDT documented in this encounter Progress Notes * Carla Tavera P, FUNERAL PREARRANGEMENT COUNSELOR - 09/07/2013 9:04 AM EDT Diagnosis: 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 Status post neoadjuvant chemoradiation therapy with continuous infusion 5 fluorouracil followed by a AP resection. Subjective: Reg is here today for cycle # 6 of FOLFOX chemotherapy. He's been doing well at work. 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 Other than that he is tolerating working with metal fine as far as his cold intolerance goes. He does note for a few days and some difficulty with cold her temperatures and tingling in his hands and fingers when he goes out in the cold without close. Otherwise review systems is essentially negative with no nausea or vomiting or other problems such asdiarrhea or cold mouth fever chills or pain. Energy level is good. He continues with the lovenox. Review of Systems Constitutional: Negative for fever, [...] Neurologic: Normal His white count today is 5.77 hemoglobin 10.5 platelet count is 229. CMP shows a creatinine of 0.8 random glucose of 166 and normal liver tests. Assessment/Plan: Reg is doing well post resection of his stage II A. rectal cancer. He is continuing to doing exceptionally well with the treatment and is not having any real issues. We'll go ahead with cycle 6 today as planned and see him back in 2 weeks for cycle 7 of 8 planned treatments with labs prior. He will remain on Lovenox till his port is out a few weeks after the end of chemotherapy. He'll call if issues or problems develop in the interim. documented in this encounter Procedure Notes * Provider, Scanning - 09/07/2013 8:43 AM EDTAssociated Order(s): SCAN DOC: LAB documented in this encounter Plan of Treatment Not on file documented as of this encounter Procedures Procedure Name Priority Date/Time Associated Diagnosis Comments LAB SCAN 09/07/2013 8:43 AM EDT Rectal cancer documented in this encounter Results * SCAN DOC: LAB (09/07/2013 8:43 AM EDT) Narrative 09/07/2013 8:43 AM EDT Procedure Note Provider, Scanning - 09/07/2013 8:43 AM EDT Scanning Provider MEDIA MGR SCAN EXT O RDR/RSLT documented in this encounter Visit Diagnoses Diagnosis Rectal cancer- Primary Malignant neoplasm of rectum documented in this encounter Care Teams Gui Developer Relationship Specialty Start Date End Date Randa Rosas APRN [address] [place] [address] PCP - General 12/29/12 04/16/22 documented as of this encounter
--- OUTSIDE RECORDS SUMMARY | 2024-11-18 17:00 | XMS_ITS | Encounter Summary ---
Author Organization [facility] Address [facility] [place] [address] Care Team Providers Care Production Team Leader Name Role Phone Randa Rosas APRN Primary Care Provider +1- [phone] Reason for Visit * Reason Comments Follow Up Surgery Encounter Details Date Type Department Care Team (Late st Contact Info) Description 05/23/2013 10:00 AM EDT [facility] [place] [facility] [address] CL[facility], Nighat Ashford, RN Attention to colostomy (Primary Dx) Discharge Disposition: [...] encounter Progress Notes * Nighat Lopez - 05/24/2013 7:18 AM EDT Pt had appt today with General Surgery RN's but this appt unnecessary, as MARIEL drain is still in but being monitored by Plastic Surgery and Urology to remove his catheter and do voiding trial today. Herequested to see senior account director. Pt is 12 days s/p APR with permanent colostomy and myocutaneous flap and ureteral stent placement. He has a MARIEL drain in his left thigh at the site of flap harvest and aguilar catheter. He has been emptying his own colostomy pouch, which presently has soft mushy tannish colored stool in it. His s.o., Jazmyn, changed his pouch yesterday. He is wearing a Surfit 2 1/4 Flexible wafer and transparent drainable pouch. I snapped the pouch off to assess his stoma and it appears that Jazmyn did a great job cutting the pattern, teardrop shape stoma. He denies any trouble with skinor leaky pouches. I did not change the wafer, as it had just been done. I did assess his perineal incision and applied some Bacitracin ointment to it, as pt stated they didn't have time to do this this morning. This flap looks great and is completely intact today, the entire length. His MARIEL drain has been draining about 15-25 cc/d, he was anxious to get this out but doesn't see Plastic Surgery foranother week. I will f/u with pt on 06/14 unless having issues with his colostomy prior to this. documented in this encounter Plan of Treatment Not on file documented as of this encounter Visit Diagnoses Diagnosis Attention to colostomy- Primary documented in this encounter Care Teams Production Team Leader Relationship Specialty Start Date End Date Randa Rosas APRN [address] [place] [phone] PCP - General 12/29/12 04/16/22 documented as of this encounter
--- OUTSIDE RECORDS SUMMARY | 2024-11-18 17:00 | XMS_ITS | Encounter Summary ---
Author [facility] [place] [address] Care Team Providers Care Stone Sandblaster Name Role Phone Randa Rosas APRN Primary Care Provider +1- [phone] Reason for Visit * Reason Onset Date Comments Other 05/27/2013 gas only in bag Encounter Details Date Type Department Care Team (Late st Contact Info) Description 05/27/2013 Telephone [place] [phone] Jessie Fagan, RN Other (gas only in bag) Social History Tobacco Use Types Packs/Day Years [...] encounter Miscellaneous Notes * Telephone Encounter - Jessie Fagan RN - 05/27/2013 10:17 AM EDT Operations: 05/11/2013 - 05/12/2013 Surgeon(s) and Role: Panel 1: * Bobby Hills MD - Primary * Dominique Pichardo MD - Resident-Surgeon Timo Panel 2: * Oscar Soto MD - Primary * Gerald Eng MD - Resident-Surgeon Chief Panel 3: * Mark Khan MD - Primary * Yevgeniy Adan MD * Junie Dominguez MD - *CONSULTING * Samuel Shelby MD - Resident-Rayon Tester: Procedure(s): @LAPAROSCOPIC PROCTECTOMY, COMPLETE, APR W COLOSTOMY @LYMPHADENECTOMY,ABDOMINAL,REGIONAL,MULTIPLE NODES @EXCLUSION OF SMALL INTESTINE FROM PELVIS FLAP, MYOCUTANEOUS OR FASCIOCUTANEOUS, LOWER EXTREMITY ADJ.TISSUE TRANSFER, REARRANGEMENT, 10.1 TO 30 SQ.CM, LEGS CYSTO, STENT PLACEMENT INTRAOP, TEMPORARY @OMENTAL FLAP, INTRA-ABDOMINAL 24 hours gas, every 3 hours burp it, Eating normally, no nausea, vomiting Surgery 05-11-13 Ostomy nurses follow pt. Calls calling as the VNA nurse recommended he report that ostomy bag contains only gas - no stool. VNA visit will be today. This has occurred the last 24 hours and he needs to burp the bag every 3 hours. He is eating well. No n/v, fever or abd pain. Will speak to Chely BADILLO and return call to pt. documented in this encounter Plan of Treatment Not on file documented as of this encounter Visit Diagnoses Not on filedocumented in this encounter Care Teams Stone Sandblaster Relationship Specialty Start Date End Date Randa Rosas APRN [address] [place] [address] PCP - General 12/29/12 04/16/22 documented as of this encounter
--- OUTSIDE RECORDS SUMMARY | 2024-11-18 17:00 | XMS_ITS | Encounter Summary ---
Author Organization [facility] Address [facility] [place] [address] Care Team Providers Care Bakery Clerk Name Role Phone Randa Rosas APRN Primary Care Provider +1- [phone] Reason for Visit * Reason Onset Date Comments Post Procedure Call 05/25/2013 drain output Encounter Details Date Type Department Care Team (Late st Contact Info) Description 05/25/2013 Telephone [place] [phone] Oscar Soto MD [facility] [place] [address] Post Procedure Call (drain output) Social History Tobacco Use Types Packs/Day Years [...] encounter Miscellaneous Notes * Telephone Encounter - Maegan Christensen RN - 05/25/2013 11:45 AM EDT Client's VNA telephoned to report drain out put , less than 30cc in 24 hours for [address] Soto was consulted and VNA instructed to discontinue the drain. documented in this encounter Plan of Treatment Not on file documented as of this encounter Visit Diagnoses Not on filedocumented in this encounter Care Teams Bakery Clerk Relationship Specialty Start Date End Date Randa Rosas APRN [address] [place] [phone] PCP - General 12/29/12 04/16/22 documented as of this encounter
--- OUTSIDE RECORDS SUMMARY | 2024-11-18 17:00 | XMS_ITS | Encounter Summary ---
[facility] Organization [facility] [place] [address] Care Team Providers Care Auto Transmission Specialist Name Role Phone Randa Rosas APRN Primary Care Provider [phone] Encounter Details Date Type Department Care Team (Latest Contact Info) Description 05/11/2013 5:57 AM EDT - 05/18/2013 5:49 PM EDT Hospital Encounter 4 [place] [id number] John Hills MD Diabetes mellitus (Primary Dx); Rectal cancer; Blood clot in vein Discharge Disposition: Home with VNA Social History [...] Sign Reading Time Taken Comments Blood Pressure 145/76 05/18/2013 4:18 PM EDT Pulse 85 05/18/2013 4:18 PM EDT Temperature 36.7 ??C (98.1 ??F) 05/18/2013 4:18 PM ED T Respiratory Rate 18 05/18/2013 4:18 PM EDT Oxygen Saturation 99% 05/18/2013 4:18 PM EDT Inhaled Oxygen Concentration - - Weight 98.7 kg (217 lb 9.5 oz) 05/17/2013 4:02 A M EDT Height 170 cm (5' 6.93) 05/11/2013 9:00 AM EDT Body Mass Index 34.15 05/11/2013 9:00 AM EDT documented in this encounter Discharge Instructions * Discharge Instructions* Esha Jaramillo APRN - 05/18/2013 9:45 AM EDT Diabetes Care Plan For home: Continue with glipizide 10 mg by mouth with breakfast Take your metformin 500 mg twice daily by mouth with meals, crushed and mixed with juice Stop taking Janumet for now Test your blood sugar levels twice a day until you are seen by your primary care provider. Before breakfast and at bedtime. Goal for your Blood sugar is less than 140 mg/dL before meals and less than 180 mg/dL at all other times. If you are having any low blood sugars, less than 80 mg/dL or over 250 mg/dL twice in one day then call your primary care provider. Treatment of Low Blood Sugar (Hypoglycemia) If your BG is lower than 80, you are likely to feel shaky, sweaty and lightheaded. This is a signalthat your body needs more sugar. Quickly eat or drink a small serving of something sweet, such as: ?? 4 ounces fruit juice or regular (not diet) soda ?? 6 lifesavers ?? 4-8 glucose tablets (~15-30 gm of glucose) ?? If your BG is very low <50, you can double the amount above or take 30 gm of glucose gel/tablets. ?? Sit and rest and you should feel better within a few minutes. Once you are feeling better, try to determine why your BG was so low. Common causes of hypoglycemia include skipping a meal, lots of exercise, too much insulin or any combination of these things. Understanding the cause my help you toavoid another low BG in the future. Esha Jaramillo APRN [facility] Diabetes Management * Patient Instructions* Dominique Pichardo - 05/17/2013 10:37 AM EDT DIVISION OF COLON & RECTAL SURGERY Colon and Rectal Surgery Patient Discharge Instructions Activity level: Avoid heavy lifting (>25 lbs) for the next 4 weeks or until cleared to do so at follow-up appointment. No sitting for 2 weeks post-operatively. After 2 weeks can sit using ROHO cushion. Driving: No driving for 10 days and/or while still taking opioid pain medications (wait at least 6-8 hours since last dose). No driving if you are still sore from surgery as it may limit your abilityto react quickly if necessary. Shower/Bath: You may shower and get incision(s) wet. Pat dry immediately following. Do not scrub them vigorously for the next 2-3 weeks. If you have kayy or an open wound(s) please do not soak incision(s) (i.e. soaking in bath or swimming). Wound Care: Wash incision with soap and water, pat dry, and leave open to air. You may cover with gauze as needed to prevent incision rubbing on clothes or for any seepage. ?? If you have skin kayy you will need to have them removed in 12-14 days. This can be done by your PCP or you can come back to the General surgery clinic to have these removed by the General Surgery nurses on 4 (see below). ?? If you have an open wound then you will be instructed on wound care prior to discharge (usually wet-to-dry with tap water twice daily). ?? MARIEL Drain Instructions: Inspect the skin around the insertion site daily for signs of infection such as: ?? Redness or swelling Pus or drainage Fever over 100 F (38 C) or chills Increased pain or discomfort at the insertion site Washing instructions: Gently wash the skin with tap water and pat dry Rinse and air dry the skin before wearing clothes Tube Maintenance: Make sure the tube is properly secured to prevent accidental removal. Strip tubing and empty your drain in the morning and evening You will have an antibiotic prescription to take while the drain is in. Record the drainage amount in the chart provided by your nurse. Call the Plastic Surgery clinic at the number below when the output is less than 30cc over 24hrs for drain removal. Contact your physician if: There is a significant change in drainage amount or color. If the tube becomes dislodged. If you notice signs of infection (see above). Uriarte Care: You are going home with a Uriarte catheter the nurses will teach you how to switch between a leg bag and a large bag for sleeping. You will be called regarding an appointment to have the catheter removed Diet: You may resume your regular diet as tolerated. ?? Drink >2 liters of fluids per day ?? Chew your food thoroughly ?? Eat smaller, more frequent meals ?? Try new foods one at a time to be sure that you tolerate them Steroids: (if applicable) If you take steroids (i.e. prednisone) you will be given instructions to wean the dose over the next month. Do not suddenly stop steroids without instruction. If you run-outof steroids before the taper finishes please call for a refill. When to call: Signs of possible wound infection ?? Increasing redness or swelling of the incision (some mild redness around the incision and/or kayy is normal) ?? Drainage or bleeding from the incision ?? Fever over 101.5 F ?? Increased pain or discomfort at the incision site Signs of possible bowel obstruction and/or dehydration ?? Persistent nausea and/or vomiting or the inability to keep foods or fluids down in a 24 hour period. ?? Dry mouth, dark concentrated urine or lack of urine, lightheadedness/flu-like symptoms Other ?? Any other concerning sign or symptom such as shortness or breath, chest pain, pain with urination or other signs of urinary tract infection (UTI), or new leg pain/swelling, nausea/vomiting, increasing abdominal pain, abdominal firmness, bloody stools, or if you completely stop passing gas or stool. Who to Call ?? During regular work hours call the Surgery Clinic at ?? After hours / nights / weekends / holidays: call and ask for the General Surgery Resident On-Call. Follow up Appointments (Surgery Clinic 4L): 1. You may have an early follow-up appointment with the Surgery Nurses for staple removal, drain care, or a wound check. If you do not have kayy, a drain, or an open wound you do not need this appointment. 2. You will have a regular follow-up appointment with your Surgical Team, usually 4 weeks after discharge. 3. You should receive a phone call and/or a letter in the mail with information about your appointments. Please call [phone] (clinic number for appointments only) to confirm date and time of your appointments or if you do not receive information about your appointment in a timely manner. Divison of Colon and Rectal Surgery ??? [facility] ??? [address] ??? [place] [address] ??? [phone] ??? ~~~~~~~~~~~~~~~~~~~~~~~~~~~~~~~~~~~~~~~~~~~~~~~~~~~~~~~~~~~~~~~~~~~~~~~~ documented in this encounter Medications at Time of Discharge Medication Sig Dispensed Refills Start Date End Date atorvastatin (LIPITOR) 40 mg tablet Take 40 mg by mouth daily. glipiZIDE (GLUCOTROL) 10 mg 24 hr tablet Take 10 mg by mouth 2 times daily. multivitamin (THERAGRAN) tablet Take 1 tablet by mouth daily. metFORMIN (GLUCOPHAGE) 500 mg tablet Take 1 tablet by mouth 2 times daily (with meals). Crush and take with your meal 60 tablet 1 05/18/2013 01/30/2014 enoxaparin (LOVENOX) 150 mg/mL Syrg injectionIndications:R ectal cancer,Blood clot in vein 150 mg sc daily 30 Syringe 0 05/18/2013 2013 metoclopramide (REGLAN) 5 mg tablet Take 1 tablet by mouth 4 times daily. 40 tablet 0 05/18/2013 05/30/2013 OXYcodone (ROXICODONE) 5 mg immediate release tablet Take 1-2 tablets by mouth every 4 hours as needed for Pain. No driving, no alcohol 30 tablet 0 05/18/2013 05/23/2013 lisinopril (PRINIVIL;ZESTRIL) 10 mg tablet Take 10 mg by mouth 2 times daily. 01/31/2022 sildenafil (VIAGRA) 100 mg tablet Take 100 mg by mouth as needed. 11/18/2017 INDOMETHACIN ORAL Take by mouth. Reported on 01/01/2017 08/03/2020 documented as of this encounter Progress Notes * Leti Mandujano RN - 05/18/2013 5:32 PM EDT I met with pt to f/u with ostomy teaching. He changed the pouch with me. His stoma is pink and viable and peristomal skin intact. We applied a 2 1/4 stomahesive wafer and transparent pouch. Pt has been burping the pouch no problem. I gave him the order #'s of the pouches with filters as he has hada lot of flatus. His supplies and paperwork are packed. He will call to order from [facility]. He is planning to be discharged today. T/c to [facility] and spoke to GET Mercedes OC, who verified awareness of pt's discharge and will have AM agency person check for paperwork in AM--denied questions at this time. * Leti Mandujano RN - 05/18/2013 5:00 PM EDT Discharge instructions/meds reviewed w/pt and pt's s/o--all questions answered. Reviewed ostomy care w/pt's s/o and pt relates he is comfortable with care. Also reviewed w/pt's spouse bacitracin application to justin-rectal incision---return demo w/out difficulty. Reviewed MARIEL care and emptying--return demo by pt's s/o accomplished w/out difficult. Instructed how to measure and record Mariel outputs. Instructed in uriarte care and technique to connect leg bag--given home care instruction booklet as well. Given extra supplies for home use. Oxycodone prescription tubed to outpt pharm--pt to picker tender helper after discharge. HL's x2 d c'd--sites benign. Discharged ambulatory w/pt's s/o to home via car. * Ying Soria RN - 05/18/2013 3:43 PM EDT Care Management/ CRC Pager# [phone]/ Discharge note S: I am anxious to be leaving today. Thanks for the information about the cushion. O: Met with patient this afternoon. Referral in place to [facility]. Care Management note for MD Discharge Summary (with VNA and DME vendor information) completed and pended. Call to Christiana Lincoln ([phone]) at [facility] about Anusha zayas. Paperwork has been submitted to patient's [employer] insurance. Christiana to be in direct contact with patient about shipping. Christiana has patient's demographic information. A/P: information assoc to call report to VNA and MD Discharge Summary to be faxed. * Esha Jaramillo APRN - 05/18/2013 9:34 AM EDT Adrien Cheung 1955 [id number] RANDA ROSAS APRN Follow Up Diabetes Consult Patient Interview Mr. Cheung stated that he is feeling much better today and looking forward to returning home. He will have visiting home nursing available as well. He denied any nausea overnight or this morning andhas been tolerating meals since my last assessment yesterday. We reviewed the following recommendations regarding his home diabetes management plan. Temp: [36.7 ??C (98.1 ??F)-37 ??C (98.6 ??F)] Heart Rate: [71-92] Resp: [16-20] BP: (112-139)/(75-101) SpO2: [95 %-99 %] Current Regimen Glipizide 5 mg PO QD with breakfast started today Holding off on metformin for now Continue with Lantus 18 units QD at noon Continue current correction Novolog Recent Glucose Levels Recent Labs Basename 05/18/13 0732 05/18/13 0410 05/17/13 2344 05/17/13 1923 05/17/13 1630 05/17/13 1143 05/17/13 0735 05/17/13 0353 05/17/13 0013 05/16/13 1903 05/16/13 1616 05/16/13 1453 POCGLU 142 157 144 151 151 185 169 125 172 138 120 150 ASSESSMENT ?? Will send home on metformin and glipizide alone as per instructions below ?? Recommend that Mr. Cheung follow up with his PCP in the next 2-3 weeks to review his diabetic care PLAN Glipizide 5 mg PO QD with breakfast started today Resume metformin at 500 mg PO BID crushed and mixed with juice, take with meals Last dose of lantus today at 10AM, reduced to 15 units Continue current correction Novolog while in the hospital Diabetes Care Plan For home: Continue with glipizide 10 mg by mouth with breakfast Take your metformin 500 mg twice daily by mouth with meals, crushed and mixed with juice Stop taking Janumet for now Test your blood sugar levels twice a day until you are seen by your primary care provider. Before breakfast and at bedtime. Goal for your Blood sugar is less than 140 mg/dL before meals and less than 180 mg/dL at all other times. If you are having any low blood sugars, less than 80 mg/dL or over 250 mg/dL twice in one day then call your primary care provider. Treatment of Low Blood Sugar (Hypoglycemia) If your BG is lower than 80, you are likely to feel shaky, sweaty and lightheaded. This is a signalthat your body needs more sugar. Quickly eat or drink a small serving of something sweet, such as: ?? 4 ounces fruit juice or regular (not diet) soda ?? 6 lifesavers ?? 4-8 glucose tablets (~15-30 gm of glucose) ?? If your BG is very low <50, you can double the amount above or take 30 gm of glucose gel/tablets. ?? Sit and rest and you should feel better within a few minutes. Once you are feeling better, try to determine why your BG was so low. Common causes of hypoglycemia include skipping a meal, lots of exercise, too much insulin or any combination of these things. Understanding the cause my help you toavoid another low BG in the future. Esha Jaramillo APRN [facility] Diabetes Management [phone] This case was discussed with Dr. Amin. 25 min time spent in patient care with 20 spent in assessment, review of glycemic trend and insulindosing over the last 24 hours and in discussion with the patient regarding plans for discharge as noted above. I also discussed the plan of inpatient diabetic care with the primary team as well as nursing. * Nighat Lopez - 05/17/2013 6:00 PM EDT I stopped by to see pt and he had just emptied his pouch with assistance of RN as the pouch was quite full of stool and flatus. He was just up for a walk. I assessed his pouch, which was nicely intact and clean on the end, clamp closed. I showed him the paperwork and then placed it in the bag with the colostomy supplies to go home with him. His s.o was not here today. They had a nice teach with Cyndie Oconnor RN CWOCN yesterday though. I enc him to continue to practice emptying his own pouch.We will f/u in clinic. * Esha Jaramillo APRN - 05/17/2013 9:28 AM EDT Adrien Cheung 1955 [id number] RANDA ROSAS APRN Follow Up Diabetes Consult Patient Interview Mr. Cheung is a pleasant 57 y/o male POD #6 s/p [id number] Proctectomy, APR, colostomy, cystoscopy for stent placement, left gracilis flap. He has controlled type 2 diabetes on 3 oral agents prior to admission. Mr. Cheung stated that last night he had problems with nausea and some abdominal discomfort. He is concerned about leaving today for home after last night, however he is feeling better this morning and was able to eat some of his breakfast including a muffin, cup of milk. Yesterday for lunch he had about 1/2 of a tuna fish sandwich and dinner about 1/2 of his meal. Temp: [36.6 ??C (97.9 ??F)-37 ??C (98.6 ??F)] Heart Rate: [74-93] Resp: [16-20] BP: (129-146)/(78-88) SpO2: [94 %-98 %] Current Regimen Lantus:18 units at Noon once daily Novolog with meals 1 unit per 8 grams of CHO (0-8 units) Novolog correction insulin 1-8 units - custom scale Q 4 hours BG Checks Q 4 hours Goals for BG levels 100-140 mg/dL pre meals and less than 180 mg/dl post prandial without low BG levels (<80 mg/dL) Recent Glucose Levels Recent Labs Basename 05/17/13 0735 05/17/13 0353 05/17/13 0013 05/16/13 1903 05/16/13 1616 05/16/13 1453 05/16/13 1159 05/16/13 0643 05/16/13 0356 05/15/13 2331 05/15/13 1914 05/15/13 1548 POCGLU 169 125 172 138 120 150 243* 175 155 149 157 172 ASSESSMENT ?? Will try restarting glipizide with lunch today, to hold if he is not eating ?? D/c meal associated insulin for now with the start of glipizide ?? Continue with lantus insulin, requested that nursing staff review the use of insulin pens with patient ?? Will contact his PCP to discuss options for home diabetes management ?? Hesitate to resume metformin considering continued issues with nausea and abdominal discomfort Spoke with RN from PCP's office about possible need for patient to have insulin at home. Fax # for PCP's office [phone]. PLAN Glipizide 5 mg PO QD with breakfast started today Holding off on metformin for now Continue with Lantus 18 units QD at noon Continue current correction Mendoza Jaramillo APRN [facility] Diabetes Management [phone] Pager [phone] This case was discussed with Dr. Shen. 25 min time spent in patient care with 20 spent in assessment of patient, review of glycemic trend and insulin dosing and in discussion with the patient regarding potential need for insulin at home, plan for resuming PO antiglycemic agents today, and monitoring of BG. I also discussed the plan of inpatient diabetic care with the primary team as well as nursing. * Dominique Pichardo - 05/17/2013 6:49 AM EDT Colorectal Surgery Inpatient Progress Note ID: 57 y.o. s/p [id number] Proctectomy, APR, colostomy, cystoscopy for stent placement, left gracilis Flap Today is POD#6 24 hr/S: Advanced to carb control diet yesterday--PO intake limited by further nausea without emesis overnight, improved this morning. Ambulated with stairs yesterday--cleared stairs Colostomy teaching yesterday with his , thinks he'll be comfortable with it at home Gas from Ostomy with no stool overnight and none recorded yesterday O: Last value Range last 24hrs Temperature Temp: 36.9 ??C (98.4 ??F) Temp: [36.6 ??C (97.9 ??F)-37 ??C (98.6 ??F)] Heart Rate Heart Rate: 79 Heart Rate: [74-93] Blood Pressure BP: 129/78 mmHg BP: (129-146)/(78-95) Respiratory Rate Resp: 16 Resp: [16-20] SpO2 SpO2: 95 % SpO2: [95 %-98 %] I/O last 3 completed shifts: In: 1523 [P.O.:720; I.V.:803] Out: 2460 [Urine:2025; Other:360; Stool:75] I/O this shift: In: 400 [P.O.:400] Out: 1115 [Urine:1025; Other:90] Gen: middle aged male, no acute distress CV: RRR, no appreciable murmurs Pulm: clear bilaterally Abd: Obese, ostomy pink with gas in bag, markedly decreased amount from yesterday Abdominal incision clean and dry MARIEL with SS drainage in abdomen, thigh MARIEL with minimal drainage Perineal incision clean, dry, tissues soft and warm Ext: WWP No labs or imaging today UCx from 2 days ago with no growth Assessment: 57 y.o. male s/p above procedures, stable on post-operative day #6. Persistent nausea with continued oral intake requiring medications, would monitor and consider discharge in the afternoon if he's no longer nauseous with meals. Keep uriarte in place for retention. Plan: N: Toradol, Tylenol, Oxycodone CV: Lisinopril and Lipitor per home regimen Pulm: stable on room air GI: carb control : uriarte for retention, likely trial of void 7 days after discharge ID: afebrile, No s/sx of infection Endo: diabetes team managing, resumed Metformin and 1/2 dose Glipizide yesterday Heme: Therapeutic Lovenox Dispo: floor status DOMINIQUE PICHARDO MD 6:49 AM * Nicola Hernandez MD - 05/17/2013 6:46 AM EDT Plastic Surgery Progress Note POD#6 s/p APR with left gracilis tunneled flap 24 Hour Events: -Uriarte reinserted for urinary retention. General surgery planning on sending patient home today with leg bag. -Nausea x 2 requiring antiemetics yesterday. Vitals and Exam: Temp: [36.6 ??C (97.9 ??F)-37 ??C (98.6 ??F)] Heart Rate: [74-93] Resp: [16-20] BP: (129-146)/(78-95) SpO2: [95 %-98 %] RLQ surgical drain: 170 --> 140cc, serous Left thigh drain: 70 --> 70cc,serous Exam: NAD, on low airloss bed CV RRR Lungs CTA b/l Abdomen soft NTND colostomy pink and viable. RLQ drain as above Perineum: skin soft and intact. healthy-appearing with no drainage or maceration. No spotting on dressing. Ext: LLE skin soft and intact. Incision closed w/ glue is c/d/i with no drainage or erythema. Motorand sensory intact throughout LLE. L thigh drain as above A/P: POD#6 s/p APR with left gracilis flap reconstruction. Donor area and perineal site healing well - no further drainage through incision. General surgery managing ileus. - is allowed to walk, but NO SITTING x 2 weeks - recommend arranging for ROHO cushion to begin after 2 weeks - can lie --> stand for now - primary care per colorectal - Continue drain, d/c when output < 30cc over 24 hours for 2 consecutive days - Follow-up with Dr. Soto in plastics clinic in 10-14 days. * Cyndie Oconnor RN - 05/16/2013 5:03 PM EDT I met with pt and his fiance Charlette for ostomy teaching. Charlette was anxious, but supportive. 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 I walked them both through the steps of the pouch change. Charlette did help with some steps of the change. His stoma is pink and viable and peristomal skin intact. We applied a Surfit 2 1/4 stomahesive wafer and transparent pouch. He is passing some flatus and stool. I had pt practice with the clamp and he went through the motions of emptying with no difficulty. I also showed him the Invisiclose pouches and moldable wafers. We discussed ordering from [facility] and he is interested in the bands from [employer]. I will give him information on this prior to discharge. His supplies and paperwork are packed. We will continue to follow for teaching. * Liliane Torres, PT - 05/16/2013 11:20 AM EDT Physical Therapy Treatment Note Visit #: 2 Patient Dx: Pt. is a 57 y.o. male admitted on 05/11/2013 by John Rangel MD. Pt with h/o low rectal cancer and s/p neoadjuvant chemoradiation, is now s/p surgery on 05/11: lap proctectomy converted to open surgery, APR with colostomy; abdominal lymphadenectomy; and omental/L gracilis rotational flap. Pt is on General Surgery service, but the Plastics service team also participated in the surgery and is following pt closely post-op. Precautions: Full code. Ambulate. No sitting, except momentarily if needed to get in/out of bed to ambulate. S/p Abdominal/perineal surgery. Drains at R LQ and L thigh. Colostomy. High fall risk. High risk for skin breakdown. Interval History: Pt had terrible nausea on 05/15 but is feeling much better on 05/16. S: I feel SO much better today! O: ?? MENTAL STATUS/BEHAVIOR: Cheerful and cooperative FUNCTIONAL MOBILITY: GAIT: Pt has ambulated several hundred feet with FWW and escort. Pt was able to stand safely without the walker. STAIRS: up/down 9 inch step stool 2x with hands on wall of shower stall to simulate home situation.Contact guard. STAND><R><SUPINE: independent with head of bed flat without rail. Pt used the headboardand has one at home. ?? CARDIOPULMONARY: ?? SpO2: 98 - 97% on RA ?? HR: 90 - 113 Pain: not too bad Education: Pt/family education ongoing re today's activities and plan Staff Communication: Patient status, treatment discussed with nursing. A: Pt s/p surgery on 05/11: lap proctectomy converted to open surgery, APR with colostomy; abdominallymphadenectomy; and omental/L gracilis rotational flap is feeling well today and moving well. He probably doesn't need any more PT here. DISCHARGE RECOMMENDATIONS: Within my Physical Therapy scope of practice and based on the above documented functional levels demonstrated by patient today, patient should be safe to be discharged to home when he is medically ready for discharge. He has a cane and walker available. He and I feel thathe can progress to gait with cane without formal instruction. Pt does not need Home PT. Physical Therapy Goals: To be achieved by discharge. MET 1. Transfer in/out of bed with head of bed flat, no rail, minimal or no sitting, with minimal or moderate assist of 1. Raise the bed a few inches here to simulate height of bed at home. 2. Up/down 2 stairs with wall, without rail, with contact guard. With cane if needed. 3. Family or caregiver to demonstrate understanding of therapeutic interventions to support the care of the patient. P: Pt probably doesn't need any more PT here. I will check on him later in the week. Total time spent with patient: 20 minutes for Functional Mobility Total timed interventions: 20 minutes for Functional Mobility Liliane Torres PT Pager: [phone] Physical Therapy Rehabilitation Department * Esha Jaramillo, TIERCE FILLER - 05/16/2013 7:58 AM EDT Adrien Cheung 1955 [id number] RANDA ROSAS APRN Follow Up Diabetes Consult Patient Interview POD #5 s/p [id number] Proctectomy, APR, colostomy, cystoscopy for stent placement, left gracilis flap. Mr. Cheung had N/V over the weekend, patient denied any this morning. For breakfast he reported drinking one milk, some eggs and a small muffin. Overall feeling much better today than yesterday. Temp: [36.7 ??C (98.1 ??F)-37.2 ??C (99 ??F)] Heart Rate: [74-92] Resp: [18] BP: (128-161)/(76-97) SpO2: [96 %-98 %] Current Regimen Lantus:18 units at Noon once daily Novolog with meals 1 unit per 8 grams of CHO (0-8 units) Novolog correction insulin 1-8 units - custom scale Q 4 hours BG Checks Q 4 hours Goals for BG levels 100-140 mg/dL pre meals and less than 180 mg/dl post prandial without low BG levels (<80 mg/dL) Recent Glucose Levels Recent Labs Basename 05/16/13 0643 05/16/13 0356 05/15/13 2331 05/15/13 1914 05/15/13 1548 05/15/13 1128 05/15/13 0718 05/15/13 0602 05/14/13 2113 05/14/13 1917 05/14/13 1538 05/14/13 1149 POCGLU 175 155 149 157 172 213* 205* 206* 160 179 181 144 ASSESSMENT ?? Will hold off on resuming PO antiglycemic agents until tomorrow morning - IF TOLERATING PO intake today ?? PLAN for resuming oral antiglycemic agents: ?? Start with metformin 500 mg PO BID, and best if crushed - patient has pill legal librarian at home ?? Glipizide start at half home dose 5 mg PO once daily with breakfast ?? Januvia should NOT be restarted For now continue with insulin as ordered, and monitoring Requested that nursing review use of the insulin pen with patient and family in the event that he needs insulin at home. PLAN No changes with current orders Will reassess this afternoon and potentially resume some oral medications for diabetes care tomorrow morning Goals for BG levels 100-140 mg/dL pre meals and less than 180 mg/dl post prandial without low BG levels (<80 mg/dL) Esha Jaramillo APRN [facility] [place] Endocrinology Diabetes Management [phone] Pager [phone] This case was discussed with Dr. Shen. 20 min time spent in patient care with 15 spent in assessment, review of glycemic trend over the weekend and insulin dosing and in discussion with the patient regarding potential need for insulin at home, resuming PO medications for diabetes care, and goals of diabetes management post op. I also discussed the plan of inpatient diabetic care with the primary team as well as nursing. * John Hills - 05/16/2013 6:41 AM EDT Colorectal Surgery Inpatient Progress Note ID: 57 y.o. s/p [id number] Proctectomy, APR, colostomy, cystoscopy for stent placement, left gracilis Flap Today is POD#5 24 hr/S: Further nausea throughout yesterday afternoon, though no further episodes of emesis. Abdominal painremains largely unchanged, concentrated in mid to lower abdomen. Uriarte reinsterted yesterday after three repeated straight catheterizations for UOP>500cc. UA without obvious pyuria, culture pending. No ambulation yesterday, due to persistent nausea O: Last value Range last 24hrs Temperature Temp: 37.1 ??C (98.8 ??F) Temp: [36.6 ??C (97.9 ??F)-37.2 ??C (99 ??F)] Heart Rate Heart Rate: 74 Heart Rate: [74-95] Blood Pressure BP: 149/86 mmHg BP: (128-161)/(75-97) Respiratory Rate Resp: 18 Resp: [18] SpO2 SpO2: 98 % SpO2: [93 %-98 %] I/O last 3 completed shifts: In: 872 [P.O.:600; I.V.:272] Out: 5060 [Urine:2975; Emesis/NG output:1000; Other:410; Stool:675] I/O this shift: In: 594 [I.V.:594] Out: 520 [Urine:350; Other:120; Stool:50] Gen: middle aged male, no acute distress CV: RRR, no appreciable murmurs Pulm: clear bilaterally Abd: Obese, ostomy pink with gas and stool in bag, markedly decreased amount from yesterday Abdominal incision clean and dry MARIEL with SS drainage in abdomen, thigh MARIEL with minimal drainage Perineal incision clean, dry, tissues soft and warm Ext: WWP Electrolytes Lab Results Component Value Date Sodium 137 05/16/2013 Potassium 3.9 05/16/2013 Chloride 100 05/16/2013 CO2 25 05/16/2013 Lab Results Component Value Date BUN 11 05/16/2013 CREATININE 0.40* 05/16/2013 Assessment: 57 y.o. male s/p above procedures, stable on post-operative day #5. Continues to have ileus today, though symptoms have improved somewhat from yesterday. Will give him sips of clears today. Keep uriarte in place for retention. Plan: N: Toradol, Tylenol, Oxycodone CV: restart lisinopril Pulm: stable on room air GI: sips of clears : uriarte ID: afebrile, no leukocytosis Endo: diabetes team managing, lantus 18 units with iss coverage Heme: no issues. lovenox 30 BID today, will discuss anticoagulation today. Dispo: floor status DOMINIQUE PICHARDO MD 6:41 AM Colon and Rectal Surgery Attending Patient independently seen, interviewed, and examined. Discussed with senior house-staff, agree with above with the following additions and/or exceptions. Sounds like emesis was directly related to urinary retention. AVSS labs wnl. Abd soft NT ND I C D I MARIEL SS ostomy functioning +F+BM ADAT. Resume lovenox.Rx today. Home tomorrow with leg bag. John Hills MD, MS, FACS neighborhood planner Division of Colon and Rectal Surgery [facility] Pager #[phone] * Lu Soto MD - 05/16/2013 6:35 AM EDT Plastic Surgery Progress Note POD#5 s/p APR with left gracilis tunneled flap 24 Hour Events: -Kept NPO. -Ostomy making gas and a small amount of liquid. -Nausea resolved, but still feels bloated. - No drainage from perineal incision x 3 days O: Temp: [36.6 ??C (97.9 ??F)-37.2 ??C (99 ??F)] Heart Rate: [74-95] Resp: [18] BP: (128-161)/(75-97) SpO2: [93 %-98 %] RLQ surgical drain: 160 --> 170cc Left thigh drain: 130 --> 70cc Exam: NAD, on low airloss bed CV RRR Lungs CTA b/l Abdomen soft NTND colostomy pink and viable. RLQ drain as above Perineum: skin soft and intact. healthy-appearing with no drainage or maceration. No spotting on dressing. Ext: LLE skin soft and intact. Incision closed w/ glue is c/d/i with no drainage or erythema. Motorand sensory intact throughout LLE. L thigh drain as above A/P: POD#5 s/p APR with left gracilis flap reconstruction. Donor area and perineal site healing well - no further drainage through incision. General surgery managing ileus. - is allowed to walk, but NO SITTING x 2 weeks - recommend arranging for ROHO cushion to begin after 2 weeks - can lie --> stand for now - primary care per colorectal - Continue drain - will follow * Mercy Marcum RN - 05/15/2013 3:51 PM EDT 1550 patient reports increase nausea I thought I was gonna lose it, patient is diaphoretic, with increased BP, no dizziness, shortness of breath or chest pain.MD Winters-juan paged. See mar * Liliane Torres, PT - 05/15/2013 2:17 PM EDT PHYSICAL THERAPY Pt has been ambulating with nursing staff and does not need PT for gait on levels. He vomited a lotthis morning and would like to wait until tomorrow to do a few stairs. Liliane Torres, PT Pager [phone] * Nicola Hernandez MD - 05/15/2013 10:40 AM EDT Plastic Surgery Progress Note POD#4 s/p APR with left gracilis tunneled flap 24 Hour Events: - Green emesis this AM. Made NPO and abdominal plain films taken. - Urinary retention requiring straight cath. - No further drainage from perineal incision. O: Temp: [36.5 ??C (97.7 ??F)-37 ??C (98.6 ??F)] Heart Rate: [72-95] Resp: [18-20] BP: (125-145)/(75-95) SpO2: [93 %-97 %] RLQ surgical drain: 270 --> 160cc Left thigh drain: 155 --> 130cc Exam: NAD, on low airloss bed CV RRR Lungs CTA b/l Abdomen soft NTND colostomy pink and viable. RLQ drain as above Perineum: skin soft and intact. healthy-appearing with no drainage or maceration. No spotting on dressing. Ext: LLE skin soft and intact. Incision closed w/ glue is c/d/i with no drainage or erythema. Motorand sensory intact throughout LLE. L thigh drain as above A/P: POD#4 s/p APR with left gracilis flap reconstruction. General surgery have limited PO intake but will hold off on NGT given degree of distention on x-rays. Donor area and perineal site healing well. - is allowed to walk, but NO SITTING x 2 weeks - recommend arranging for ROHO cushion to begin after 2 weeks - can lie --> stand for now - primary care per colorectal - Continue drain - will follow * Dominique Pichardo - 05/15/2013 7:42 AM EDT Colorectal Surgery Inpatient Progress Note ID: 57 y.o. s/p [id number] Proctectomy, APR, colostomy, cystoscopy for stent placement, left gracilis Flap Today is POD#4 24 hr/S: Nausea this morning with large amout ot Green emesis. Denies nausea and abdominal pain currently. Straight cath x3 this morning, each time for volumes >500cc, incontinent of urine x1, UA unremarkable Pain is well controlled on PO regimen Ambulated several times yesterday O: Last value Range last 24hrs Temperature Temp: 36.7 ??C (98.1 ??F) Temp: [36.5 ??C (97.7 ??F)-37 ??C (98.6 ??F)] Heart Rate Heart Rate: 80 Heart Rate: [72-95] Blood Pressure BP: 133/83 mmHg BP: (125-145)/(80-95) Respiratory Rate Resp: 18 Resp: [18-20] SpO2 SpO2: 93 % SpO2: [93 %-97 %] I/O last 3 completed shifts: In: 1589 [P.O.:840; I.V.:749] Out: 5225 [Urine:2900; Emesis/NG output:1000; Other:425; Stool:900] Gen: middle aged male, no acute distress, CV: RRR, no appreciable murmurs Pulm: clear bilaterally Abd: Obese, ostomy pink with gas and stool in bag Abdominal incision clean and dry MARIEL with SS drainage in abdomen, thigh MARIEL with minimal drainage Perineal incision clean, dry, tissues soft and warm Ext: WWP CBC Lab Results Component Value Date WBC 6.9 05/15/2013 Hemoglobin 10.4* 05/15/2013 Hematocrit 30.2* 05/15/2013 Platelets 240 05/15/2013 Electrolytes Lab Results Component Value Date Sodium 139 05/15/2013 Potassium 4.3 05/15/2013 Chloride 100 05/15/2013 CO2 27 05/15/2013 Lab Results Component Value Date BUN 8* 05/15/2013 CREATININE 0.45* 05/15/2013 Assessment: 57 y.o. male s/p above procedures with emesis on POD#4. Labs without obvious abnormalities. KUB with distended stomach, but not remarkably so, will hold off NGT placement as patient not currently nauseous and abdominal exam largely unchanged from yesterday. Urinary retention, likely will need uriarte. Plan: N: Toradol, Tylenol, Oxycodone CV: restart lisinopril Pulm: stable on room air GI: NPO : resume uriarte if unable to void ID: afebrile, no leukocytosis Endo: diabetes team managing, likely will continue insulin as NPO. Heme: no issues. lovenox 30 BID today, continue to hold therapeutic anticoagulation. Dispo: floor status DOMINIQUE PICHARDO MD 7:42 AM * Babita Guillen RN - 05/15/2013 6:15 AM EDT Patient medicated with zofran 4 mg at 0450 after waking up and being nauseated. At 0600, patient vomited one liter of green fluid and was also incontinent of urine at that time. HO notified. Abdominal x-ray ordered. Will continue to monitor. HO up to see patient. Patient made NPO. IV restarted at 50 cc/hr, labs to be drawn. Bladder scanned for 544 cc. HO notified. Straight cathed for 500 cc clearamber urine. UA C & S sent. Will continue to monitor. * Babita Guillen RN - 05/14/2013 11:04 PM EDT Several attempts to void without success. Bladder scanned for 835 cc. HO notified. Patient straightcathed for 600 cc jim color urine. Will continue to monitor. * Nicola Hernandez MD - 05/14/2013 10:47 AM EDT Plastic Surgery Progress Note POD#3 s/p APR with left gracilis tunneled flap - No acute overnight events. - Pain well-controlled. - With ostomy output yesterday, started on regular diet. - No further drainage from perineal incision. S: feels well this AM, minimal pain, no nausea O: Temp: [36.6 ??C (97.9 ??F)-37 ??C (98.6 ??F)] Heart Rate: [85-94] Resp: [16-18] BP: (107-146)/(69-83) SpO2: [94 %-100 %] RLQ surgical drain: 270 --> 270cc Left thigh drain: 95 --> 155cc Exam: NAD, on low airloss bed CV RRR Lungs CTA b/l Abdomen soft NTND colostomy pink and viable. RLQ drain as above Perineum: skin soft and intact. healthy-appearing with no drainage or maceration. No spotting on dressing. Ext: LLE skin soft and intact. Incision closed w/ glue is c/d/i with no drainage or erythema. Motorand sensory intact throughout LLE. L thigh drain as above A/P: POD#3 s/p APR with left gracilis flap reconstruction recovering well - is allowed to walk, but NO SITTING x 2 weeks - recommend arranging for ROHO cushion to begin after 2 weeks - can lie --> stand for now - primary care per colorectal - Continue drain - will follow * John Hills - 05/14/2013 8:16 AM EDT Colorectal Surgery Inpatient Progress Note ID: 57 y.o. s/p [id number] Proctectomy, APR, colostomy, cystoscopy for stent placement, left gracilis Flap Today is POD#3 24 hr/S: Flatus and stool from colostomy yesterday--diet advanced, tolerating regular diet at half portion, given full portions this morning, Pain well controlled with ANIMAL HUSBANDRY TECHNICIAN. Ambulated x 2 Visited by supervisor ship maintenance services, changed bag. O: Last value Range last 24hrs Temperature Temp: 36.6 ??C (97.9 ??F) Temp: [36.6 ??C (97.9 ??F)-37 ??C (98.6 ??F)] Heart Rate Heart Rate: 87 Heart Rate: [85-94] Blood Pressure BP: 127/80 mmHg BP: (107-146)/(69-83) Respiratory Rate Resp: 16 Resp: [16-18] SpO2 SpO2: 95 % SpO2: [94 %-100 %] I/O last 3 completed shifts: In: 2987.9 [P.O.:670; I.V.:2317.9] Out: 2900 [Urine:2095; Other:555; Stool:250] Gen: middle aged male, no acute distress, CV: RRR, no appreciable murmurs Pulm: clear bilaterally Abd: Obese, ostomy pink with gas and stool in bag Abdominal incision clean and dry MARIEL with SS drainage in abdomen, thigh MARIEL with minimal drainage Perineal incision clean, dry, tissues soft and warm Ext: WWP No labs Assessment: 57 y.o. male s/p above procedures recovering well on post-operative day #3. Tolerating a regular diet and ambulating with colostomy function. Drains continue to have moderate output, will keep in place for now. Remove uriarte this morning and change to PO pain meds. Plan: N: Toradol, Tylenol, Oxycodone CV: restart lisinopril Pulm: stable on room air GI: carb control diet : remove uriarte ID: afebrile, little concern for infection Endo: diabetes team managing, blood sugars well controlled with their regimen, could switch to oralanti-hyperglycemics today. Heme: no issues. lovenox 30 BID today, continue to hold therapeutic anticoagulation. Dispo: floor status DOMINIQUE PICHARDO MD 8:16 AM Colon and Rectal Surgery Attending Patient independently seen, interviewed, and examined. Discussed with senior house-staff, agree with above. John Hills MD, MS, FACS neighborhood planner Division of Colon and Rectal Surgery [facility] Pager #[phone] * Cyndie Oconnor RN - 05/13/2013 2:56 PM EDT I met with pt this afternoon for ostomy teaching. Pt watched as I changed the pouch. His stoma is pink and viable. It almost appeared whitish in the center when I first removed the pouch, but then pinked right up and did look viable. His peristomal skin is intact. We applied a 2 1/4 stomahesive wafer and transparent pouch. I had pt practice with the clamp which he was able to do without difficulty. He is interested in the velcro pouches or closed end. I encouraged him to practice emptying overthe weekend if his bowel function returns. We will follow. * Ying Soria RN - 05/13/2013 2:37 PM EDT Care Management/ CRC Pager# [phone]/ Progress note and Discharge planning S: I do think that having home visits through [facility] would be very helpful. Charlette is an BUSH REGENERATOR, but having some back-up help would be ok. The Plastic Surgery team had talked about my getting a Roho Cushion. [facility] would be fine if that is the company that is in network with [employer]. O: Met with patient and patient's fiancee Charlette and friend Costa this afternoon. Referral to [facility] as requested. Information faxed via discharge central. Care Management note for MD Discharge Summary (with VNA information) completed and pended by typewriter mechanic. Referral to [facility] in [facility] (in-network with [employer] insurance) about need for Roho cushion when patient is able to sit. Discussion with Christiana at [facility] (tel [phone]). Prescription, demographic/insurance information, medical information faxed to [phone]. At this time patient is on 1/2 portion diabetic diet po. Lantus 18units SQ qday. Novolog with meals/correction q4hr. IVF at 50/hr. Hydromorphone ANIMAL HUSBANDRY TECHNICIAN. Tylenol po q6hr. Ultram po q6hr prn. Oxycodone poq4hr prn. Milk of Magnesia po x1 today as ordered. Colostomy pouch intact. No stool as yet. Uriarte to gravity. MARIEL drain x2 (270ml/95ml over 24hr). PT/OT. [place] bed D/C today. Patient on standard ho spital bed. Patient OOB ambulating with assistance. No sitting. 98% on RA. A: Patient progressing post-op. Supportive andrea Ovalles here today. P: I will continue in CRC role, following patient's in-hospital course, offering support to patient/family, coordinating discharge planning effort. At time of patient's discharge to home, information assoc vance report to REBECCA and MD Discharge Summary to be faxed. * Cyndie Oconnor RN - 05/13/2013 1:55 PM EDT Ileostomy/Colostomy Pouching: Disposable 2-piece pouch Name: Adrien Lipscombins Type of Ostomy: Colostomy Use this procedure as a guide when changing your appliance. Read all instructions, assemble all equipment, and empty contents from pouch before beginning actual change. If you have questions, do not hesitate to call Nighat Lopez RN CWOCN or Cyndie Oconnor RN CWOCN at [phone]. Equipment: Company/Order Numbers Wet and dry soft cloth (paper towels) Plastic bag Pen, Scissors, stoma pattern Appliance pouch, transparent, 12 [employer] 2 12/03 #[id number] Velcro: #[id number] Wafer, Flexible Stomahesive Convatec 2 12/03 #[id number] Protective powder a. [employer] #: [id number] Non-allergic tape (4 strips) [place] paper tape if necessary Liquid Deodorant [place] M9 #2621 Other Supplies (if any) Procedure: 1. Using pattern, trace stoma size on back of wafer and cut out tracing. 2. Place wafer in a warm place to make it more pliable. 3. Remove old pouch and wafer from skin and discard in plastic bag, be sure to remove clamp from the old pouch. 4. Wash skin and stoma with warm water and pat skin dry. 5. Examine skin and stoma for any irritation. If skin irritation present, apply a dusting of Stomahesive protective powder. [place] off excess powder, or wafer will not adhere. 6. Remove paper backing from wafer. 7. Apply wafer to skin being sure to center over stoma. Press down firmly, first in center closest to stoma and then outer edges. If wearing Lexx wafer or [employer]ec flexible wafer, you must remove paper backing from adhesive outer edges at this point. 8. To attach pouch to wafer flange: angle bottom of pouch as desired. position the top of the pouch flange onto wafer flange. starting at the bottom, apply gentle pressure around the curcumference of the pouch flange until itfeels secure to the flange on the wafer. You should feel or hear the pouch click into a secure position and a gentle tug all the way around will convirm that the pouch is firmly attached. 9. Attach Clamp. 10. Picture frame (apply 1-piece of tape to each side of the wafer) with waterproof tape when showering, bathing or swimming (optional). 11. To remove old pouch from wafer, pull away from the wafer using the tab at the top of the flangeon the pouch, maintain gentle pressure on the wafer as the pouch is pulled away. Changing Schedule: Twice/week Always bring supplies needed for a pouch change when you come in for your clinic visits, or into the hospital. Pharmacy or Medical Supply: [facility] Pt with Ileostomy/Colostomy When to call your cable hooker/ MD Change in Color: The stoma should always be pink or red in color. Should the color change to white,blue or black, medical notification is required. Bleeding: It is common and normal for the stoma to bleed minimally during gentle washing. Blood found in the pouch requires medical notification. Obstruction (ileostomies only): This situation, moist common with ileostomies, may be due to undigested or improperly chewed foods. Signs and symptoms include, no stool eliminated into the pouch for 6-12hrs, or excess amounts of watery diarrhea, abdominal pain or nausea or vomiting. If swelling of the stoma occurs, a large disposable pouch should be applied. Notify your supervisor ship maintenance services or MD. Prolapse: The term implies that the stoma now extends further from the skin surface than it did at discharge from the hospital. An increase of one inch or more requires medical notification. Pain mayor may not accompany a prolapse. Retraction: This term implies that the bowel has slightly fallen back into the abdominal cavity. Itmay become flush with or recessed below the skin. A good seal with the pouch is difficult. Herniation: This term implies that the muscular area in which the stoma is sewn has lost its tone and the entire area, including skin and surrounding stoma now protrudes beyond the normal skin surface. Irritated Skin: Irritated skin can quickly worsen to a difficult to manage situation. Treat irritated skin as you have been taught. If it has not cleared up after one week call your ostomy nurse. Leaky Pouch: If you are having to change the pouch every other day or more frequently due to leakage it is reasonable for you to give your Ostomy Nurse a call. Ostomy Resources: Ostomy.org: United Ost[employer] Association - includes a video Living with an Ostomy [employer] Association of [place]: www.uoaa.org [employer] Colon [employer] Rectal [employer]: www.fascrs.org/patients/treatments_and_screening/ostomy/ [employer]: www.facs.patienteducation/skills/ostomy.html www.facs.org/patienteducation/skills/dvd.html - includes 10 short professionally produced videos includin. Helping your with home care 2. Your Ostomy 3. Your Operation 4. Pouching systems 5. Emptying a Pouch 6. Changing a Pouch 7. Problem Solving 8. Emergencies 9. Knowledge check 10. Ostomy skills (all modules, 27 minutes) These videos are also on Youtube: search for [employer] Ostomy Education Skills Below is a list of garment websites we other ostomates have found helpful. We do not endorse or have any financial relationship with any of them ?? [employer] - custom neoprene swimming belts. ?? OstomySecrets.[employer] - stylish ostomy underwear and ostomy undergarments ?? [employer] - Dont' feel Different . . . FEEL CONFIDENT. * Alfredito Diaz MD - 05/13/2013 1:01 PM EDT Plastic Surgery POD#2 s/p APR with left gracilis tunneled flap - no acute overnight events - HD stable - was OOB ambulating with PT - serous drainage from wound when inspected in PM yesterday, benign appearing. +flatus S: feels well this AM, minimal pain, no nausea O: Temp: [36.6 ??C (97.9 ??F)-37 ??C (98.6 ??F)] Heart Rate: [62-100] Resp: [16-18] BP: (107-120)/(64-73) SpO2: [93 %-98 %] Intake/Output Summary (Last 24 hours) at 05/13/13 1301 Last data filed at 05/13/13 1200 Gross per 24 hour Intake 1999.7 ml Output 1845 ml Net 154.7 ml RLQ surgical drain 270cc s/s fluid Left thigh drain 95cc s/s fluid Exam: NAD, lying in clinitron bed CV RRR Lungs CTA b/l Abdomen soft NTND colostomy pink and viable. RLQ drain as above Perineum: skin soft and intact. healthy-appearing with no drainage Ext: LLE skin soft and intact. Incision closed w/ glue is c/d/i with no drainage or erythema. Motorand sensory intact throughout LLE. L thigh drain as above A/P: s/p APR with left gracilis flap reconstruction doing very nicely - is allowed to walk, but NO SITTING x 2 weeks - no need for clinitron bed any longer - recommend arranging for ROHO cushion to begin after 2 weeks - can lie --> stand for now - primary care per colorectal - recommend tighter BG control - will follow * Esha Jaramillo APRN - 05/13/2013 12:03 PM EDT Adiren Cheung 1955 [id number] RANDA ROSAS APRN Follow Up Diabetes Consult Patient Interview Mr. Cheung is a pleasant 57 y/o male recently diagnosed with rectal cancer. He is now POD #2 s/p [id number] Proctectomy, APR, colostomy, cystoscopy for stent placement, left gracilis flap.He started eating this morning, had about 50% of his breakfast (regular diet), stated that his painis well controlled as well. His BG trend remains elevated. Temp: [36.5 ??C (97.7 ??F)-36.8 ??C (98.2 ??F)] Heart Rate: [62-100] Resp: [16-18] BP: (107-120)/(64-73) SpO2: [93 %-98 %] Current Regimen Lantus 12 units at noon daily Novolog with meals 0-6 units based on 1 unit per 10 grams of CHO, this is about 2 units for a full glucose control boost Novolog correction insulin 1-8 units - custom scale Q 4 hours BG Checks Q 4 hours Recent Glucose Levels Recent Labs Basename 05/12/13 0820 05/12/13 0359 05/12/13 0101 05/11/13 2221 05/11/13 2047 05/11/13 1924 05/11/13 1523 05/11/13 1449 05/11/13 1332 05/11/13 1226 05/11/13 0615 POCGLU 190 195 222* 202* 174 177 223* 166 209* 213* 183 ASSESSMENT ?? Started on basal / bolus insulin yesterday, will increase doses based on BG trend ?? He is now eating and will start meal associated insulin, 1 unit per 8 grams of CHO with meals tobegin ?? Continue Q 4 hour BG checks and correction ?? Diabetes management team will reassess over the weekend and resume any oral anti glycemic agentsif appropriate Over the weekend for further assistance with BG management or if BG <60 or >300 mg/dL please contact the Alaina Skelton APRN Pager [phone]. PLAN Lantus:18 units at Noon once daily Novolog with meals 1 unit per 8 grams of CHO (0-8 units) Novolog correction insulin 1-8 units - custom scale Q 4 hours BG Checks Q 4 hours Goals for BG levels 100-140 mg/dL pre meals and less than 180 mg/dl post prandial without low BG levels (<80 mg/dL) Esha Jaramillo APRN [facility] Endocrinology Diabetes Management [phone] Pager [phone] This case was discussed with Dr. Amin. 25 min time spent in patient care with 20 spent in assessment, review of glycemic trend and insulindosing over the last 24 hours and in discussion with the patient regarding use of insulin in the hospital, BG monitoring and goals. I also discussed the plan of inpatient diabetic care with the primary team as well as nursing. * Dominique Pichardo - 05/13/2013 9:35 AM EDT Colorectal Surgery Inpatient Progress Note ID: 57 y.o. s/p [id number] Proctectomy, APR, colostomy, cystoscopy for stent placement, left gracilis Flap Today is POD#2. 24 hr/S: No acute events Pain well controlled overnight Minimal IVF yesterday with minimal PO intake given nausea OOB x1 yesterday O: Last value Range last 24hrs Temperature Temp: 36.6 ??C (97.9 ??F) Temp: [36.5 ??C (97.7 ??F)-36.8 ??C (98.2 ??F)] Heart Rate Heart Rate: 80 Heart Rate: [62-100] Blood Pressure BP: 114/68 mmHg BP: (107-120)/(64-73) Respiratory Rate Resp: 18 Resp: [16-18] SpO2 SpO2: 98 % SpO2: [93 %-98 %] I/O last 3 completed shifts: In: 7584.9 [P.O.:430; I.V.:6454.9; IV Piggyback:700] Out: 3455 [Urine:2540; Other:715; Blood:200] I/O this shift: In: 100 [I.V.:100] Out: 285 [Urine:200; Other:85] Gen: middle aged male, no acute distress, CV: RRR, no appreciable murmurs Pulm: clear, shallow inspirations bilaterally Abd: Obese, mildly distended, ostomy pink with gas in bag Abdominal incision clean and dry MARIEL with SS drainage in abdomen, thigh MARIEL with minimal drainage Perineal incision clean, dry, with dressing, tissues soft and warm Ext: [facility] Recent Labs Basename 05/13/13 0749 05/12/13 2054 05/12/13 0415 05/11/13 2220 WBC -- -- 8.0 -- HGB -- 9.2* 9.3* 10.6* PLATELET -- -- 191 -- NA 138 -- 136 -- K 4.1 -- 3.9 4.3 CL 103 -- 102 -- CO2 32* -- 25 -- BUN 10 -- 9* -- CREATININE 0.40* -- 0.56* -- MAGNESIUM -- -- -- -- PHOS -- -- -- -- GLUCOSE 177 -- 207* -- Assessment: 57 y.o. male s/p above procedures, stable on post-operative day #2. Continue sips of clear liquids with Boost Glucose Control as he tolerates it. Slightly hypercarbic this morning on labs, suspect some degree of sleep apnea given body habitus, have decreased his ANIMAL HUSBANDRY TECHNICIAN this morning Will attempt PO challenge today. Plan: N: Toradol, Tylenol, TAPS, Oxycodone CV: low-dose metoprolol if needed, holding remainder of cardiac medications Pulm: incentive spirometry to wean oxygen GI: low residue diet. : maintain uriarte for now ID: levaquin, flagyl to stop today Heme: no issues, hbg stable Dispo: transfer to floor DOMINIQUE PICHARDO MD 9:35 AM * Ying Soria RN - 05/12/2013 1:59 PM EDT Care Management/ CRC Pager# [phone]/ Assessment O: Patient napping, typewriter mechanic did not awaken patient. Notes reviewed. Patient lives with his andrea Madrid in [facility]. Patient has [employer] insurance. No Advance Directives on file here at [facility]. Patient is s/p chemotherapy and XRT for rectal cancer. Patient had right chest port placed on 01/10/13. Patient is POD# 1 laparoscopic to open Abdominal perineal resection with colostomy, Left tunneled gracilis flap. At this time patient is in Flex Unit bed C. order written for patient to transfer to Surgical Unit. Patient is on sips/chips po, IVF at 50/hr. Levaquin IV q24hr. Flagyl IV q8hr [id number]. HydromorphonePCA. Tylenol po q6hr scheduled. Toradol IV q6hr o9olsan. MARIEL drain x2 to bulb suction (RLQ abd drainand Left thigh drain). Uriarte to gravity. Colostomy pouch intact. Milk of Magnesia po x1 today as ordered. Enterostomal therapy nurses following. Consult to Diabetes Management team. Lantus 12units SQqday at noon. Novolog TID with meals and correction q4hr. Per Plastic Surgery note, patient is not to sit [id number]. Lovenox SQ qday. 95% on RA. A: Patient progressing post-op. Patient may benefit from PT/OT referral (patient able to ambulate, but not sit). P: I will continue in CRC role, following patient's in-hospital course, offering support to patient/family, coordinating discharge planning when appropriate. * Rachel Naranjo RN - 05/12/2013 12:18 PM EDT Medicated again for c/o nausea with relief stated. States pain well controlled at this time 04/08. OOB, hodan cameron'sonia. Abdominal MARIEL drsg changed due to serosanguinous saturation at insertion site when MD JONATHON aware. * Lu Soto MD - 05/12/2013 9:26 AM EDT Plastic Surgery POD#1 s/p APR with left gracilis tunneled flap - admitted to flex unit - no acute overnight events - HD stable S: feels well this AM, minimal pain, no nausea O: Temp: [36.6 ??C (97.9 ??F)-36.9 ??C (98.4 ??F)] Heart Rate: [73-108] Resp: [12] BP: (115-146)/(68-87) SpO2: [98 %-100 %] Intake/Output Summary (Last 24 hours) at 05/12/13 0932 Last data filed at 05/12/13 0823 Gross per 24 hour Intake 8204.27 ml Output 3075 ml Net 5129.27 ml RLQ surgical drain 285cc s/s fluid Left thigh drain 45cc s/s fluid Exam: NAD, lying in clinitron bed CV RRR Lungs CTA b/l Abdomen soft NTND colostomy pink and viable. RLQ drain as above Perineum: skin soft and intact. healthy-appearing Ext: LLE skin soft and intact. Incision closed w/ glue is c/d/i with no drainage or erythema. Motorand sensory intact throughout LLE. L thigh drain as above A/P: s/p APR with left gracilis flap reconstruction doing very nicely - is allowed to walk, but NO SITTING x 2 weeks - no need for clinitron bed any longer - recommend arranging for ROHO cushion to begin after 2 weeks - can lie --> stand for now - primary care per colorectal - will follow Attending: Seen and examined. Wounds intact, no evidence of fluid collection. Mobilizing. Followingclosely. * Rachel Naranjo RN - 05/12/2013 8:40 AM EDT C/o nausea, states relief with fan and zofran. Sleeping between care. Pt calm and resting quietly. * Justus Yang MD - 05/12/2013 8:25 AM EDT Regional Anesthesia Progress Note Date of Encounter: 05/12/2013 Provider: JUSTUS YANG MD Attending: Mike Weathers MD ID: Patient is POD# 1 s/p 1. Laparoscopic proctectomy 2. APR 3. Colostomy 4. Cystoscopy for stent placement 5. Left gracilis Flap for which the patient received bilateral TAPs nerve block for post-operative pain control. Subjective: Today the patient has good pain control and at present states pain is 4 out of 10. Objective: Please see VS flowsheet Appears comfortable Sensory Exam: Intact throughout abdomen Motor Exam: no deficit. Block insertion site free of bruising, hematoma, or erythema Assessment: Peripheral nerve block for post-operative pain control, currently with good pain control. Block appears to be appropriately resolving. Plan and/or Recommendations: ?? Continue current pain regimen as ordered Will sign off; please contact Regional Anesthesia Team ([phone]) for any unresolved sensory or motor deficits or bleeding or bruising at site of block. Thank you for this consultation. JUSTUS YANG MD Regional team pager [phone] * Dominique Pichardo - 05/12/2013 8:09 AM EDT Colorectal Surgery Inpatient Progress Note ID: 57 y.o. s/p [id number] Proctectomy, APR, colostomy, cystoscopy for stent placement, left gracilis Flap 24 hr/S: OR yesterday--tolerated procedure well, extubated in OR, hemodynamically stable overnight Pain control good--notes good relief with TAPS block and ANIMAL HUSBANDRY TECHNICIAN O: Last value Range last 24hrs Temperature Temp: 36.9 ??C (98.4 ??F) Temp: [36.6 ??C (97.9 ??F)-36.9 ??C (98.4 ??F)] Heart Rate Heart Rate: 73 Heart Rate: [73-108] Blood Pressure BP: 118/68 mmHg BP: (118-146)/(68-87) Respiratory Rate Resp: 12 Resp: [12] SpO2 SpO2: 100 % SpO2: [99 %-100 %] I/O last 3 completed shifts: In: 9629.3 [I.V.:9279.3; IV Piggyback:350] Out: 2530 [Urine:1180; Other:350; Blood:1000] Gen: middle aged male, no acute distress, mild facial edema CV: RRR, no appreciable murmurs Pulm: clear, shallow inspirations bilaterally Abd: Obese, mildly distended, ostomy pink with sweat in bag Abdominal incision clean and dry MARIEL with SS drainage in abdomen, thigh MARIEL with minimal drainage Perineal incision clean, dry, with dressing, tissues soft and warm Ext: Recent Labs Basename 05/12/13 0415 05/11/13 2220 WBC 8.0 -- HGB 9.3* 10.6* PLATELET 191 -- NA 136 -- K 3.9 4.3 CL 102 -- CO2 25 -- BUN 9* -- CREATININE 0.56* -- MAGNESIUM -- -- PHOS -- -- GLUCOSE 207* -- Assessment: 57 y.o. male s/p above procedures, stable on post-operative day #1. Plan for today is to improve pain control with toradol as long as urine output remains stable, adjust fluids, remove the right ureteral stent, and transfer to the floor. Plan: N: Toradol, Tylenol, TAPS, Dilaudid ANIMAL HUSBANDRY TECHNICIAN CV: low-dose metoprolol if needed, holding remainder of cardiac medications Pulm: incentive spirometry to wean oxygen GI: sips and chips, milk of mag today, then Boost glucose control : maintain uriarte for now ID: brent, yl to stop today Heme: no issues, hbg stable Dispo: transfer to floor DOMINIQUE PICHARDO MD 12:53 PM * Melvin Villa MD - 05/12/2013 2:29 AM EDT Urology Post-Operative Progress Note Surgery: 1. Laparoscopic proctectomy 2. APR 3. Colostomy 4. Cystoscopy for stent placement 5. Left gracilis Flap Patient seen: 01:25, Flex Unit Subjective/Events: Patient denies chest pain, shortness of breath, nausea, vomiting. Pain well-controlled with the ANIMAL HUSBANDRY TECHNICIAN tho he does describe some lower abdominal discomfort. Per nursing he alternates sleeping and waking to use ANIMAL HUSBANDRY TECHNICIAN. Fiance at bedside. Objective: Vitals: Temp: [36.6 ??C (97.9 ??F)-36.9 ??C (98.4 ??F)] Heart Rate: [101-108] Resp: [12] BP: (146)/(87) SpO2: [99 %] I/O last 3 completed shifts: In: 4050 [I.V.:4050] Out: 1135 [Urine:335; Blood:800] I/O this shift: In: 4432 [I.V.:4432] Out: 1040 [Urine:570; Other:270; Blood:200] Exam: General: NAD, sleeping but arouses easily, responds to questions Resp: Breathing comfortably, good air entry bilaterally Cardio: Regular rate and rhythm, no murmurs Abd: Dressing c/d/i, drains with serosanguinous output, soft, obese, appropriately TTP without guarding LLE: Donor site dressing c/d/i, MARIEL drain with minimal serosanguinous output Recent Labs Basename 05/11/13 2220 WBC -- HGB 10.6* HCT 30.4* PLATELET -- NA -- K 4.3 CL -- CO2 -- BUN -- CREATININE -- A/P: 57 y.o. year old male POD#0 s/p above procedure. Vitals stable, uop adequate. - continue all post-operative care * Lu Soto MD - 05/12/2013 2:29 AM EDT Plastic Surgery Post-Operative Progress Note Surgery: 1. Laparoscopic proctectomy 2. APR 3. Colostomy 4. Cystoscopy for stent placement 5. Left gracilis Flap Patient seen: 01:25, Flex Unit Subjective/Events: Patient denies chest pain, shortness of breath, nausea, vomiting. Pain well-controlled with the ANIMAL HUSBANDRY TECHNICIAN tho he does describe some lower abdominal discomfort. Per nursing he alternates sleeping and waking to use ANIMAL HUSBANDRY TECHNICIAN. Fiance at bedside. Objective: Vitals: Temp: [36.6 ??C (97.9 ??F)-36.9 ??C (98.4 ??F)] Heart Rate: [101-108] Resp: [12] BP: (146)/(87) SpO2: [99 %] I/O last 3 completed shifts: In: 4050 [I.V.:4050] Out: 1135 [Urine:335; Blood:800] I/O this shift: In: 4432 [I.V.:4432] Out: 1040 [Urine:570; Other:270; Blood:200] Exam: General: NAD, sleeping but arouses easily, responds to questions Resp: Breathing comfortably, good air entry bilaterally Cardio: Regular rate and rhythm, no murmurs Abd: Dressing c/d/i, drains with serosanguinous output, soft, obese, appropriately TTP without guarding LLE: Donor site dressing c/d/i, MARIEL drain with minimal serosanguinous output Recent Labs Basename 05/11/13 2220 WBC -- HGB 10.6* HCT 30.4* PLATELET -- NA -- K 4.3 CL -- CO2 -- BUN -- CREATININE -- A/P: 57 y.o. year old male POD#0 s/p above procedure. Vitals stable, uop adequate. - continue all post-operative care Attn: Noted. * Melvin Villa MD - 05/12/2013 1:30 AM EDT Colorectal Surgery Post-Operative Progress Note Surgery: 1. Laparoscopic proctectomy 2. APR 3. Colostomy 4. Cystoscopy for stent placement 5. Left gracilis Flap Patient seen: 01:25, Flex Unit Subjective/Events: Patient denies chest pain, shortness of breath, nausea, vomiting. Pain well-controlled with the ANIMAL HUSBANDRY TECHNICIAN tho he does describe some lower abdominal discomfort. Per nursing he alternates sleeping and waking to use ANIMAL HUSBANDRY TECHNICIAN. Fiance at bedside. Objective: Vitals: Temp: [36.6 ??C (97.9 ??F)-36.9 ??C (98.4 ??F)] Heart Rate: [101-108] Resp: [12] BP: (146)/(87) SpO2: [99 %] I/O last 3 completed shifts: In: 4050 [I.V.:4050] Out: 1135 [Urine:335; Blood:800] I/O this shift: In: 4432 [I.V.:4432] Out: 1040 [Urine:570; Other:270; Blood:200] Exam: General: NAD, sleeping but arouses easily, responds to questions Resp: Breathing comfortably, good air entry bilaterally Cardio: Regular rate and rhythm, no murmurs Abd: Dressing c/d/i, drains with serosanguinous output, soft, obese, appropriately TTP without guarding LLE: Donor site dressing c/d/i, MARIEL drain with minimal serosanguinous output Recent Labs Basename 05/11/13 2220 WBC -- HGB 10.6* HCT 30.4* PLATELET -- NA -- K 4.3 CL -- CO2 -- BUN -- CREATININE -- A/P: 57 y.o. year old male POD#0 s/p above procedure. Vitals stable, uop adequate. - continue all post-operative care * Elias Porter RN - 05/11/2013 11:55 PM EDT 2215- Pt arrived in PACU via specialty bed, nasal trumpet in place,6 L simple mask applied, SAT 100% RR12, lungs CTA, abd dressing dry intact, MARIEL drain on right abd, serosang drainage noted, left legdressing dry intact MARIEL drain to site serosang drainage noted.Mepelex dressing left posterior shoulder in place. 2230- nasal trumpet D/C'd, 6L simple mask in place.SAT 99%RR12 will monitor. 2330- Pt awake alert follows commands, VSS, Pt c/o pain Pt using ANIMAL HUSBANDRY TECHNICIAN needs reinforcement, dilaudid IVP for breakthrough pain, will monitor. 0000- Pt awake alert 3L NC SAT 95%, VSS, pain tolerable, Pt using incentive spirometer, Abd dressing dry intact, posterior dressing small amt of dried drainage noted, will monitor. documented in this encounter H&P Notes * Nicola Hernandez MD - 05/18/2013 7:19 AM EDT Plastic Surgery Progress Note POD#7 s/p APR with left gracilis tunneled flap 24 Hour Events: -Abdominal drain removed by general surgery. -No drainage from wound. -Tolerated regular diet without nausea; good ostomy function. -Ambulating halls. Vitals and Exam: Temp: [36.7 ??C (98.1 ??F)-37 ??C (98.6 ??F)] Heart Rate: [71-92] Resp: [16-20] BP: (112-139)/(75-101) SpO2: [94 %-99 %] Left thigh drain: 70 --> 45cc,serous Exam: NAD, on low airloss bed CV RRR Lungs CTA b/l Abdomen soft NTND colostomy pink and viable. RLQ drain as above Perineum: skin soft and intact. healthy-appearing with no drainage or maceration. No spotting on dressing. Ext: LLE skin soft and intact. Incision closed w/ glue is c/d/i with no drainage or erythema. Motorand sensory intact throughout LLE. L thigh drain as above A/P: POD#7 s/p APR with left gracilis flap reconstruction. Donor area and perineal site healing well - no further drainage through incision. - is allowed to walk, but NO SITTING x 2 weeks - can lie --> stand for now - primary care per colorectal - Continue drain, d/c when output < 30cc over 24 hours for 2 consecutive days - Follow-up with Dr. Soto in plastics clinic in 10-14 days. * Michelle Cox PA - 05/11/2013 6:17 AM EDT Adrien Cheung is a 57 y.o. male with rectal cancer who presents today for operative intervention. No change in the patient's H&P as documented by ABY Cox on 04/06/2013. No CP or SOB. Denies any recent illness, fever or cough. No change to medication or allergy list since last visit. Physical Exam: NAD CTAB RRR Abd soft, nondistended, nonTTP Rectal exam deferred A/P: Adrien Cheung is a 57 y.o. male who presents today for a planned abdominoperineal resection with permanent colostomy for rectal cancer. No change to health since last visit. Procedure and riskshave been discussed in detail with the patient; all questions have been answered; consent has been signed. Patient wishes to proceed. Ready to proceed with planned procedure. Michelle Cox PA-C Division of Colon & Rectal Surgery [facility] [phone] documented in this encounter Miscellaneous Notes * Miscellaneous - Provider, Scanning - 05/19/2013 11:53 AM EDT * Miscellaneous - Provider, Scanning - 05/19/2013 11:53 AM EDT * Miscellaneous - Provider, Scanning - 05/19/2013 11:53 AM EDT * Plan of Care - Sharad Bustillos - 05/18/2013 3:55 PM EDT Problem: Pain, Acute (Adult, Obstetric) Goal: Acute Pain: Acceptable Pain Control/Comfort Level - Pain, Acute (Adult, Obstetric) Outcome: Therapy, goal partially met Monitor pain 6/10 after insertion of double lumen uriarte. Administered Oxycodene 15 mg prn 1244. * Med Student Progress Note - Cyndy Monk - 05/18/2013 5:10 AM EDT Inpatient Progress Note (Adam, MS3) ID: Adrien Cheung is a 57 y.o. male who is POD #7 s/p lap-to-open proctectomy, APR with colostomy;abdominal lymphadenectomy; and omental/L gracilis flap. Subjective/24 Hour Events: Pt seen and examined at the bedside. No f/cp/sob - Tolerating carb-controlled diet without nausea - 100cc Stool and gas into appliance overnight - Seen by Diabetes Team yesterday - see Plan below Objective: Temp: [36.7 ??C (98.1 ??F)-37 ??C (98.6 ??F)] Heart Rate: [71-92] Resp: [16-20] BP: (112-139)/(75-101) SpO2: [94 %-99 %] on RA Weight 98.7 kg 24 hr Ins & Outs: In 840 (PO) Out 1070 (UO 925, LLE drain 45, stool 100) UO = 39cc/hr Gen: middle aged male, NAD CV: RRR, no murmurs Pulm: CTAB Abd: Obese, nontender. Ostomy pink and moist, brown stool and flatus in appliance. Abdominal incision clean and dry, with some induration proximally. Perineal incision clean, dry, no erythema or purulence : Uriarte draining clear yellow urine Ext: WWP, no edema. Thigh MARIEL with minimal ss drainage. Recent Labs 24 Hr blood glucose: 144 - 185 Assessment: Adrien Cheung is a 57 y.o. male s/p above procedures, POD #7. VSS, glucose within goal range, goodUO. Pain well-controlled on current regimen. Bowel function has returned with stool and flatus in appliance, and patient is tolerating diet without nausea. Likely ready for discharge home today (with Uriarte). We'll speak with Plastics to determine whether LLE drain can be removed. Plan: N: Tylenol, Ibuprofen, Oxycodone prn CV: continue Lisinopril Pulm: stable on room air, IS GI: continue CHO-controlled diet : continue Uriarte for now, voiding trial in the future. Needs Uriarte teaching. ID: afebrile, no leukocytosis. Bacitracin to perineum. Endo: appreciate diabetes team recs: Glipizide 5mg PO qAM, Lantus 18units qD at noon, correction Novolog, hold off on metformin. 24 hr fingerstick blood glucose are within goal range. Heme: no issues. Therapeutic lovenox. Dispo: Likely home today. Cyndy Monk, MS3 Pager: [phone] * Plan of Care - Tabitha Schafer RN - 05/18/2013 3:00 AM EDT Problem: Pain, Acute (Adult, Obstetric) Intervention: Acute Pain: Signs and Symptoms 2105-C/O 7/10 pain on abdominal incision, given Oxycodone 15 mg po with relief.Colostomy bag with increase flatus, burped PRN. 0213-C/O 6/10 pain on abdominal incision. Given Oxycodone 15 mg [po.Will continue to monitor. Will continue to monitor. * Discharge Summary - Dominique Pichardo - 05/17/2013 7:17 AM EDT Inpatient - Discharge Summary Patient Name: Adrien Cheung Patient Age: 57 y.o. Birthdate: 1955 Admit date: 05/11/2013 Discharge date and time: 05/18/2013 Attending Physician: John Hills MD Primary Diagnosis: Rectal cancer Secondary Diagnosis: Active Hospital Problems Diagnoses ??? Rectal cancer ??? Hypertension ??? Diabetes mellitus ??? Obesity (BMI 35.0-39.9 without comorbidity) Resolved Hospital Problems Diagnoses Date Resolved Active Non-Hospital Problems Diagnoses ??? Snoring HPI: Adrien Cheung is a pleasant 57 y.o. male with a recent diagnosis of rectal cancer who presents to clinic today for a pre-operative history and physical. He is accompanied by his fiance'. He was lastseen in clinic on 03/25/2013. He reports no changes to his health since that visit. He has returned to work. He is eating well. He has lost a few pounds since his last visit. Overall, his weight is down about 20 pounds since the rectal cancer was diagnosed. He still tends to tire easily, but that isimproving with time. He is moving his bowels 3 to 5 times a day, soft consistency, formed, no blood. No pain during the BM, but he does experience pain in the rectal area following the BM. He reportsthat he typically feels good when he wakes up in the morning, then has a BM and will have rectal pain for the rest of the day thereafter. He is able to get some relief with Percocet. He denies incontinence to liquid or stool; occasional incontinence to gas. He is no longer using the Lomotil (stopped it about 3 days ago; no longer feels he needs it). Surgery has been scheduled for April 272012. Prior to today's, the patient met with Plastics, who will be performing the plastics flap to prevent perineal wound dehiscence and a chronic sacral sinus. He will also be meeting with Enterostomal Therapy today for stoma siting. He will also have an MRI and CT chest, abdomen and pelvis today. Otherwise, ready to proceed with surgery as planned. Operations/Major Procedures: Operations: 05/11/2013 - 05/12/2013 Surgeon(s) and Role: Panel 1: * John Hills MD - Primary * Dominique Pichardo MD - Resident-Surgeon Timo Panel 2: * Lu Soto MD - Primary * Gerald Eng MD - Resident-Surgeon Chief Panel 3: * Gustabo Khan MD - Primary * Yevgeniy Adan MD * Junie Dominguez MD - *CONSULTING MD * Samuel Shelby MD - Resident-Damage Adjuster: Procedure(s): @LAPAROSCOPIC PROCTECTOMY, COMPLETE, APR W COLOSTOMY @LYMPHADENECTOMY,ABDOMINAL,REGIONAL,MULTIPLE NODES @EXCLUSION OF SMALL INTESTINE FROM PELVIS FLAP, MYOCUTANEOUS OR FASCIOCUTANEOUS, LOWER EXTREMITY ADJ.TISSUE TRANSFER, REARRANGEMENT, 10.1 TO 30 SQ.CM, LEGS CYSTO, STENT PLACEMENT INTRAOP, TEMPORARY @OMENTAL FLAP, INTRA-ABDOMINAL Hospital Course: Adrien Cheung was taken to the operating room where the above procedures were performed. The procedure was notable for an exceedingly difficult pelvic dissection from the abdomen and perineal portions of the operation, and required intraoperative consult from Urology (who had earlier placed bilateral ureteral stents) to ensure that there was no damage to seminal vesicles, prostate or bladder. The gracilis muscle perineal flap procedure was performed without complications. Mr. Cheung was extubated at the end of the procedure, but due to the length of the operation, was admitted to the step-down unit post- operatively. Pain was controlled with a ANIMAL HUSBANDRY TECHNICIAN and a TAPS block. Post-operative day #2, he was given PO challenge with a low-residue diet, which he tolerated without nausea or abdominal pain. Colostomy was functional with gas on post- operative day #2 and stool by post-operative day #4. Attempted catheter removal on post-operative day #3 was unsuccessful and he required uriarte replacementfor urinary retention. He continued to recover, and was weaned to oral pain medications and fully ambulatory by post-operative day 6. 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 Therapeutic anticoagulation was restarted on post-operative day #5, as per his pre-operative regimen. He had met discharge criteria and was discharged to home on post-operative day 6. Of note, due to urinary retention leading to overflow incontinence, he will follow up on Thursday with clinic for a trial of void. He will need to follow up with plastic surgery in 8-10 days for his flap. Pending Lab Data at Discharge: None Condition at Discharge: Stable Important Studies and Lab Data: Labs: Recent Results (from the past 24 hour(s)) POCT GLUCOSE Component Value Range POC Glucose 151 60 - 199 mg/dL POCT GLUCOSE Component Value Range POC Glucose 151 60 - 199 mg/dL POCT GLUCOSE Component Value Range POC Glucose 144 60 - 199 mg/dL POCT GLUCOSE Component Value Range POC Glucose 157 60 - 199 mg/dL POCT GLUCOSE Component Value Range POC Glucose 142 60 - 199 mg/dL POCT GLUCOSE Component Value Range POC Glucose 149 60 - 199 mg/dL Studies: Xr Abdomen 1 View 05/15/2013 Examination DIAG ABDOMEN SINGLE VIEW/XPORT Clinical History s/p large volume emesis Comparison CT April 06, 2013. Technique 2 portable AP supine views of the abdomen. Findings Evaluation for free air is not possible on the supine views, which exclude part of the right upper abdomen. Nonspecific paucity of small bowel gas. Some normal-appearing bowel gas is seen along the transverse colon and within the stomach. A drain is present in projection onto the pelvis. A focal lucency in the or in projection onto the pubic bone just lateral to the pubic symphysis on the left side was not seen on the head of it view of the prior CT. This finding may be just due to superimposition's, however, a small new osteolytic lesion is also considered taking the patient's known history of malignancy into account. Impression Very limited evaluation on the supine views. Free air is not excluded. Nonspecific bowel gas pattern. UNEXPECTED FINDING of a new lucency of the pubic bone on the left uncertain whether this is a superimposition or a new osteolytic lesion, which would be concerning for osseous metastasis. Exam: Temp: [36.7 ??C (98.1 ??F)-37 ??C (98.6 ??F)] Heart Rate: [71-99] Resp: [16-18] BP: (112-148)/(70-87) SpO2: [96 %-99 %] I/O last 3 completed shifts: In: 1240 [P.O.:1240] Out: 2235 [Urine:1950; Other:135; Stool:150] I/O this shift: In: 1140 [P.O.:1140] Out: 225 [Urine:225] Gen: lying in bed, NAD, oriented x3 Pulm: CTAB, no crackles/wheeze Card: normal rate/rhythm, no m/r/g Abd: non-distended, normal BS, soft, non-tender to palpation Wound: incision clean, dry, intact, no purulent drainage Ext: no edema, 2+ peripheral pulses Discharge to: Home Discharge Conditions/Prognosis: Stable Discharge Medications: Medications prior to admission that will be resumed at discharge: Medication Sig Dispense Refill ??? lisinopril (PRINIVIL;ZESTRIL) 10 mg tablet Take [...] needed. ??? INDOMETHACIN ORAL Take by mouth. New medications prescribed at discharge: Medication Sig Dispense Refill ??? metFORMIN (GLUCOPHAGE) 500 mg tablet Take 1 tablet by mouth 2 times daily (with meals). Crush and take with your meal 60 tablet 1 ??? enoxaparin (LOVENOX) 150 mg/mL Syrg injection 150 mg sc daily 30 Syringe 0 ??? metoclopramide (REGLAN) 5 mg tablet Take 1 tablet by mouth 4 times daily. 40 tablet 0 ??? OXYcodone (ROXICODONE) 5 mg immediate release tablet Take 1-2 tablets by mouth every 4 hours asneeded for Pain. No driving, no alcohol 30 tablet 0 Updated Allergies/ADRs: Allergies Allergen Reactions ??? Penicillins RASH PCP: RANDA ROSAS APRN Scheduled Appointments: Future Appointments Date Time Provider Department Center 05/23/2013 9:00 AM Nurse, General Surgery [facility] 05/30/2013 11:00 AM Lu Soto MD [facility] 06/14/2013 9:00 AM John Hills MD [facility] 06/14/2013 9:00 AM Ostomy Nurse, General Surgery [facility] 06/14/2013 9:00 AM Michelle Cox PA [facility] 06/14/2013 3:30 PM Nas Dobbs MD [facility] Outpatient Services/Studies: Referral to Home Health Order Comments: DISCHARGE DOCUMENTATION FOR VNA SERVICES (INCLUDING THOSE PATIENTS WITH MEDICARE COVERAGE BEING DISCHARGED HOME WITH VNA SERVICES AND THOSE PATIENTS WITH MEDICARE COVERAGE WHO ARE BEING DISCHARGED HOME WITH HOSPICE SERVICES) In discussion with the attending physician, it is certified that this patient is under their care and that they, or a nurse practitioner, clinical nurse specialist or physician's molding line assistant who is working directly with them, had a face to face encounter that meets the physician face to face encounter requirements with this patient on 05/14/13. The encounter with the patient was in whole, or in part, for the following medical condition, whichis the primary reason for home health care services: [ Rectal cancer. OR on 05/11/13 Abdomino-perineal resection with colostomy, left gracilis tunneled flap ] In discussion with the primary medical team, it is certified that, based on their findings, the indicated services are medically necessary and appropriate for home health services. Please note that any additional orders needs or changes will need to be obtained from this patient's PCP: RANDA ROSAS APRN [address] [facility] [id number] All VNA agencies which cover the area of patient's residence have been reviewed, either verbally jon writing, and patient/family have chosen the indicated home health care agency for home services. [facility] PHONE: [phone] FAX: [phone] RN visits to begin on day after patient's discharge to home, if possible. RN visits 3-4 times for post-operative assessment, checking for signs and symptoms of infection. Assess nutrition and hydration/abdomen/stooling via colostomy. Reinforcement of teaching about colostomy care. Assess diabetes management. Reinforcement of teaching about MARIEL drain care/emptying and recording amount of drainage. Cardio-pulmonary assessment. Medication review. Assess for home PT/OT visits for home safety evaluation and strengthening program when indicated. Question Response Notes Agency name and contact information [facility] Patient location post discharge home ([address]) What services are requested Registered Nurse What services are requested Physical Therapy What services are requested Occupational Therapy Responsible MD post discharge contact info [facility] [place]. John Hills and PCP Randa Rosas Instructions Given to Patient at Discharge:. An After Visit Summary was printed and given to the patient. Provider Instructions DIVISION OF COLON & RECTAL SURGERY Colon and Rectal Surgery Patient Discharge Instructions Activity level: Avoid heavy lifting (>25 lbs) for the next 4 weeks or until cleared to do so at follow-up appointment. No sitting for 2 weeks post-operatively. After 2 weeks can sit using ROHO cushion. Driving: No driving for 10 days and/or while still taking opioid pain medications (wait at least 6-8 hours since last dose). No driving if you are still sore from surgery as it may limit your abilityto react quickly if necessary. Shower/Bath: You may shower and get incision(s) wet. Pat dry immediately following. Do not scrub them vigorously for the next 2-3 weeks. If you have kayy or an open wound(s) please do not soak incision(s) (i.e. soaking in bath or swimming). Wound Care: Wash incision with soap and water, pat dry, and leave open to air. You may cover with gauze as needed to prevent incision rubbing on clothes or for any seepage. ?? If you have skin kayy you will need to have them removed in 12-14 days. This can be done by your PCP or you can come back to the General surgery clinic to have these removed by the General Surgery nurses on 4L (see below). ?? If you have an open wound then you will be instructed on wound care prior to discharge (usually wet-to-dry with tap water twice daily). ?? MARIEL Drain Instructions: Inspect the skin around the insertion site daily for signs of infection such as: ?? Redness or swelling Pus or drainage Fever over 100 F (38 C) or chills Increased pain or discomfort at the insertion site Washing instructions: Gently wash the skin with tap water and pat dry Rinse and air dry the skin before wearing clothes Tube Maintenance: Make sure the tube is properly secured to prevent accidental removal. Strip tubing and empty your drain in the morning and evening You will have an antibiotic prescription to take while the drain is in. Record the drainage amount in the chart provided by your nurse. Call the Plastic Surgery clinic at the number below when the output is less than 30cc over 24hrs for drain removal. Contact your physician if: There is a significant change in drainage amount or color. If the tube becomes dislodged. If you notice signs of infection (see above). Uriarte Care: You are going home with a Uriarte catheter the nurses will teach you how to switch between a leg bag and a large bag for sleeping. You will be called regarding an appointment to have the catheter removed Diet: You may resume your regular diet as tolerated. ?? Drink >2 liters of fluids per day ?? Chew your food thoroughly ?? Eat smaller, more frequent meals ?? Try new foods one at a time to be sure that you tolerate them Steroids: (if applicable) If you take steroids (i.e. prednisone) you will be given instructions to wean the dose over the next month. Do not suddenly stop steroids without instruction. If you run-outof steroids before the taper finishes please call for a refill. When to call: Signs of possible wound infection ?? Increasing redness or swelling of the incision (some mild redness around the incision and/or kayy is normal) ?? Drainage or bleeding from the incision ?? Fever over 101.5 F ?? Increased pain or discomfort at the incision site Signs of possible bowel obstruction and/or dehydration ?? Persistent nausea and/or vomiting or the inability to keep foods or fluids down in a 24 hour period. ?? Dry mouth, dark concentrated urine or lack of urine, lightheadedness/flu-like symptoms Other ?? Any other concerning sign or symptom such as shortness or breath, chest pain, pain with urination or other signs of urinary tract infection (UTI), or new leg pain/swelling, nausea/vomiting, increasing abdominal pain, abdominal firmness, bloody stools, or if you completely stop passing gas or stool. Who to Call ?? During regular work hours call the Surgery Clinic at ?? After hours / nights / weekends / holidays: call and ask for the General Surgery Resident On-Call. Follow up Appointments (Surgery Clinic 4L): 1. You may have an early follow-up appointment with the Surgery Nurses for staple removal, drain care, or a wound check. If you do not have kayy, a drain, or an open wound you do not need this appointment. 2. You will have a regular follow-up appointment with your Surgical Team, usually 4 weeks after discharge. 3. You should receive a phone call and/or a letter in the mail with information about your appointments. Please call [phone] (clinic number for appointments only) to confirm date and time of your appointments or if you do not receive information about your appointment in a timely manner. Divison of Colon and Rectal Surgery ??? [facility] ??? [address] ??? [place] [address] ??? [phone] ??? ~~~~~~~~~~~~~~~~~~~~~~~~~~~~~~~~~~~~~~~~~~~~~~~~~~~~~~~~~~~~~~~~~~~~~~~~ General Instructions Diabetes Care Plan For home: Continue with glipizide 10 mg by mouth with breakfast Take your metformin 500 mg twice daily by mouth with meals, crushed and mixed with juice Stop taking Janumet for now Test your blood sugar levels twice a day until you are seen by your primary care provider. Before breakfast and at bedtime. Goal for your Blood sugar is less than 140 mg/dL before meals and less than 180 mg/dL at all other times. If you are having any low blood sugars, less than 80 mg/dL or over 250 mg/dL twice in one day then call your primary care provider. Treatment of Low Blood Sugar (Hypoglycemia) If your BG is lower than 80, you are likely to feel shaky, sweaty and lightheaded. This is a signalthat your body needs more sugar. Quickly eat or drink a small serving of something sweet, such as: ?? 4 ounces fruit juice or regular (not diet) soda ?? 6 lifesavers ?? 4-8 glucose tablets (~15-30 gm of glucose) ?? If your BG is very low <50, you can double the amount above or take 30 gm of glucose gel/tablets. ?? Sit and rest and you should feel better within a few minutes. Once you are feeling better, try to determine why your BG was so low. Common causes of hypoglycemia include skipping a meal, lots of exercise, too much insulin or any combination of these things. Understanding the cause my help you toavoid another low BG in the future. Esha Jaramillo APRN [facility] Endocrinology Diabetes Management Signed: DOMINIQUE PICHARDO MD 05/18/2013 * Med Student Progress Note - Cyndy Monk - 05/17/2013 4:47 AM EDT [facility] ID: Adrien Cheung is a 57 y.o. male who is POD #6 s/p lap-to-open proctectomy, APR with colostomy;abdominal lymphadenectomy; and omental/L gracilis flap. Subjective/24 Hour Events: Pt seen and examined at the bedside. No f/cp/sob Still nauseous this AM. Tried eating muffin, eggs and 1/2 tunafish sandwich yesterday. Pain 5/10, adequately controlled with oxycodone + Ambulating Seen by ostomy nursing yesterday - (pt's rosalino Ovalles is BUSH REGENERATOR, able to assist) Seen by PT yesterday - recommends dispo home Objective: Temp: [36.6 ??C (97.9 ??F)-37 ??C (98.6 ??F)] Heart Rate: [74-93] Resp: [16-20] BP: (129-146)/(78-95) SpO2: [95 %-98 %] on Room Air Weight 98.7 kg 24 hr Ins & Outs: In 1329 (IV 209, PO 1120) Out 2185 (UO 1975, LLQ MARIEL drain 140, LLE drain 70) Gen: middle aged male, NAD CV: RRR, no murmurs Pulm: CTAB Abd: Obese, minimally tender (R>L) Ostomy not visible beneath brown stool, sig. amount of gas in appliance. Abdominal incision clean and dry, with some induration proximally. MARIEL with SS drainage in abdomen Perineal incision clean, dry, no erythema or purulence : Uriarte draining bright yellow urine Ext: WWP, no edema. Thigh MARIEL with minimal ss drainage. Recent Labs None new 24 Hr blood glucose: 120 - 175 (243 max, at 1200 yesterday) (05/15) U/A - trace protein, ketones 40, 5 RBC, 5 WBC, rare bacteria Ucx - no growth to date Assessment: Adrien Cheung is a 57 y.o. male s/p above procedures, POD #6. VSS, labs WNL. Pain well-controlled on current regimen. Bowel function has returned with stool and flatus in appliance; however, pt feels nauseous when advancing diet and should proceed slowly. Pt's urinary retention likely 2/2 post-operative sympathetic tone and/or spinal anesthesia; less likely UTI given no growth on urine culture. If nausea subsides today, he may be ready for discharge home (with uriarte). Plan: N: Tylenol, Ibuprofen, Oxycodone prn CV: continue Lisinopril Pulm: stable on room air, IS GI: continue CHO-controlled diet - advance slowly until nausea subsides. : continue Uriarte for now, voiding trial in the future ID: afebrile, no leukocytosis. Bacitracin to perineum. Endo: appreciate diabetes team recs. 24 hr fingerstick blood glucose (120 - 172) are within goal range (100 - 180), with exception of 243 yesterday afternoon. May consider transitioning back to oral regimen. Heme: no issues. Therapeutic lovenox. Dispo: possibly today Cyndy Monk, MS3 Pager: [phone] * Plan of Care - Tabitha Schafer RN - 05/16/2013 10:34 PM EDT Problem: Pain, Acute (Adult, Obstetric) Goal: Acute Pain: Acceptable Pain Control/Comfort Level - Pain, Acute (Adult, Obstetric) Outcome: Absent and monitoring 2113-Denies pain,c/o nausea given Zofran 4 mg IV with relief.Will continue to monitor. * Plan of Care - Mercy Marcum RN - 05/16/2013 3:44 PM EDT Problem: Pressure Ulcer Risk (Using Brad Scale) (Adult, Obstetric) Goal: Pressure Ulcer Risk (using Brad Scale): Tissue Integrity Outcome: Present (see interventions, notes) Patient ambulating and changing position independently Problem: Pain, Acute (Adult, Obstetric) Goal: Acute Pain: Acceptable Pain Control/Comfort Level - Pain, Acute (Adult, Obstetric) Outcome: Present (see interventions, notes) Patient reports positive result from PRN and schedule medication. * Med Student Progress Note - Chela Shay - 05/16/2013 11:09 AM EDT Plastic Surgery - Progress Note Patient Name: Adrien Cheung : [id number] MR#: [id number] 05/11/2013 Hospital Day 5 days Patient ID: 57 Year old man with hx of rectal cancer, HTN, DM and obesity now POD#5 APR (protectomy) with tunneled gracilis flap Events over the last 24 hrs: Denies N/V Endorses feeling bloated and distended Flatus + from colostomy bag Remains NPO Pain well tolerated. Ambulating with PT Denies fever, chills, SOB, cough and calf pain No drainage from perineum x 3days Objective: Physical Exam: Last Set of Vitals and range of vitals over past 24 hours: Last value Range last 24 hrs Temperature Temp: 37 ??C (98.6 ??F) Temp: [36.6 ??C (97.9 ??F)-37.2 ??C (99 ??F)] Heart Rate Heart Rate: 75 Heart Rate: [74-93] Blood Pressure BP: 135/83 mmHg BP: (128-149)/(81-95) Respiratory Rate Resp: 18 Resp: [18] SpO2 SpO2: 98 % SpO2: [97 %-98 %] I/O last 3 completed shifts: In: 594 [I.V.:594] Out: 3950 [Urine:2175; Emesis/NG output:1000; Other:350; Stool:425] I/O this shift: In: 929 [P.O.:720; I.V.:209] Out: 1070 [Urine:950; Other:120] Drain 1- 170 Drain 2- 70 Colostomy- 25 Physical Exam GEN: A&Ox 3. Pleasant. Afebrile HEENT: NCAT Heart: RRR. S1/S2+. No murmurs Lung: CTAB. No wheezing, rales or crackles Abdomen: Soft-nontender. Nondistended. BS+. Abd incision intact. No signs or erythema, exudate and warmth. : Uriarte in place. Perineum surgical site intact. NO leena oozing of fluid. No signs or erythema, exudate or inflammation Extremities: Left medial thigh incision intact with no signs of inflammation, warmth or erythema. MARIEL drainage serosanguinous. No calf tenderness or swelling. Muscle strength 5/5 and sensation intact bilaterally Laboratory (Last 24 Hours): Recent Results (from the past 24 hour(s)) POCT GLUCOSE Component Value Range POC Glucose 157 60 - 199 mg/dL POCT GLUCOSE Component Value Range POC Glucose 149 60 - 199 mg/dL POCT GLUCOSE Component Value Range POC Glucose 155 60 - 199 mg/dL BASIC METABOLIC PANEL (NON-FASTING) Component Value Range Glucose Lvl 166 60 - 199 mg/dL BUN 11 10 - 20 mg/dL Creatinine 0.40 (*) 0.80 - 1.50 mg/dL Sodium 137 135 - 145 mmol/L Potassium 3.9 3.5 - 5.0 mmol/L Chloride 100 98 - 107 mmol/L CO2 25 22 - 31 mmol/L Anion Gap 12 5 - 15 mmol/L Calcium 8.2 (*) 8.5 - 10.5 mg/dL Estimated GFR >60 >=60 MAGNESIUM Component Value Range Magnesium 0.72 0.69 - 1.07 mmol/L POCT GLUCOSE Component Value Range POC Glucose 175 60 - 199 mg/dL POCT GLUCOSE Component Value Range POC Glucose 243 (*) 60 - 199 mg/dL POCT GLUCOSE Component Value Range POC Glucose 150 60 - 199 mg/dL POCT GLUCOSE Component Value Range POC Glucose 120 60 - 199 mg/dL Microbiology: Urine Cultures: No growth 05/16 Radiology: CXR - Impression Very limited evaluation on the supine views. Free air is not excluded. Nonspecific bowel gas pattern. UNEXPECTED FINDING of a new lucency of the pubic bone on the left uncertain whether this is a superimposition or a new osteolytic lesion, which would be concerning for osseous metastasis. Assessment/Management/Plan: 57 Year old man with hx of rectal cancer, HTN, DM and obesity now POD#5 APR (protectomy) with tunneled gracilis flap. Continues to remain hemo dynamical stable. Perineum flap and thigh incision intact. Primary team will manage possible ileus. e Plan - Care as per primary team - Continue drain - Bacitracin ointment with ABDs dsg on perineum - No weight bearing on perineum but can continue with ambulation. Will recommend arranging for ROHOcushion to begin after 2 weeks - NPO at this time - will follow Chela Shay 05/16/2013 * Plan of Care - Mercy Marcum RN - 05/15/2013 2:56 PM EDT Problem: Pain, Acute (Adult, Obstetric) Goal: Acute Pain: Acceptable Pain Control/Comfort Level - Pain, Acute (Adult, Obstetric) Outcome: Present (see interventions, notes) Patient reports increased pain, nausea and general maliase when unable to urinate. See new order for uriarte re insertion and decrease in pain. Patient reports positive results from prn pain medication * Med Student Progress Note - Chela Shay - 05/15/2013 10:51 AM EDT Plastics Surgery - Progress Note Patient Name: Adrien Cheung : [id number] MR#: [id number] 05/11/2013 Hospital Day 4 days Patient ID: 57 Year old man with hx of rectal cancer, HTN, DM and obesity now POD#4 APR (protectomy) with tunneled gracilis flap Events over the last 24 hrs: Overnight, complained of nausea. vomited 1L of green colored emesis. NPO, IV fluids, abdominal KUB and UA/UC ordered Straight Cath x3 with each volumes >500cc. Pain well controlled on current regimen Denies fever, chills, chest pain, SOB, cough and calf pain Ambulating with PT. No weight bearing on perineum Objective: Physical Exam: Last Set of Vitals and range of vitals over past 24 hours: Last value Range last 24 hrs Temperature Temp: 36.6 ??C (97.9 ??F) Temp: [36.5 ??C (97.7 ??F)-37 ??C (98.6 ??F)] Heart Rate Heart Rate: 95 Heart Rate: [72-95] Blood Pressure BP: 135/75 mmHg BP: (125-145)/(75-95) Respiratory Rate Resp: 18 Resp: [18-20] SpO2 SpO2: 93 % SpO2: [93 %-97 %] I/O last 3 completed shifts: In: 1589 [P.O.:840; I.V.:749] Out: 5225 [Urine:2900; Emesis/NG output:1000; Other:425; Stool:900] I/O this shift: In: 0 Out: 50 [Other:50] Drain 1- 160ml Drain 2- 130ml Colostomy- 650ml Physical Exam GEN: A&Ox 3. Pleasant. Afebrile HEENT: NCAT Heart: RRR. S1/S2+. No murmurs Lung: CTAB. No wheezing, rales or crackles Abdomen: Soft-nontender. Nondistended. BS+. Abd incision intact. No signs or erythema, exudate and warmth. : Uriarte in place. Perineum surgical site intact. NO leena oozing of fluid. No signs or erythema, exudate or inflammation Extremities: Left medial thigh incision intact with no signs of inflammation, warmth or erythema. MARIEL drainage serosanguinous. No calf tenderness or swelling Laboratory (Last 24 Hours): Recent Labs Basename 05/15/13 0718 05/12/13205305/12/13 0415 WBC 6.9 -- 8.0 HGB 10.4* 9.2* 9.3* HCT 30.2* 26.8* 27.0* PLATELET 240 -- 191 Recent Labs Basename 05/15/13 0718 05/13/13 0749 05/12/13 0415 NA 139 138 136 K 4.3 4.1 3.9 CL 100 103 102 CO2 27 32* 25 BUN 8* 10 9* CREATININE 0.45* 0.40* 0.56* No results found for this basename: AST:3,ALT:3,ALKPHOS:3,BILITOT:3,BILIDIR:3 in the last 168 hours Recent Labs Basename 05/15/13 0718 05/13/13 0749 05/12/13 0415 CALCIUM 8.2* 7.7* 7.6* PHOS -- -- -- Microbiology: Urine Cultures: Pending UA- Unremarkable Radiology: KUB - Pending Assessment/Management/Plan: 57 Year old man with hx of rectal cancer, HTN, DM and obesity now POD#4 APR (protectomy) with tunneled gracilis flap. At this time, primary team has made patient NPO. Will hold-off on further intervention pending degree of distension on KUB. Of note, colostomy area intact with no signs of infection. Perineum and thigh incision intact. Healing well. Hemodynamically stable with AFVSS. Plan - Care as per primary team - Continue drain - Bacitracin ointment with ABDs dsg on perineum - No weight bearing on perineum but can continue with ambulation. Will recommend arranging for ROHOcushion to begin after 2 weeks - NPO at this time - will follow Chela Shay 05/15/2013 *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 place, and time. He is cooperative. No distress. Pulmonary/Chest: Effort normal. Neurological: He is alert and oriented to person, place, and time. Skin: Skin is warm and dry. He is not diaphoretic. Psychiatric: He has a normal mood and affect. Labs (Last 24 Hours) : Results for ADRIEN CHEUNG ( ) as of 05/12/2013 12:36 Ref. Range 05/12/2013 04:15 Sodium Latest Range: 135-145 mmol/L 136 Potassium Latest Range: 3.5-5.0 mmol/L 3.9 Chloride Latest Range: 98-107 mmol/L 102 CO2 Latest Range: 22-31 mmol/L 25 Anion Gap Latest Range: 5-15 mmol/L 9 BUN Latest Range: 10-20 mg/dL 9 (L) Creatinine Latest Range: 0.80-1.50 mg/dL 0.56 (L) Estimated GFR Latest Range: >=60 >60 Glucose Lvl Latest Range: 60-199 mg/dL 207 (H) Calcium Latest Range: 8.5-10.5 mg/dL 7.6 (L) Hemoglobin A1C Latest Range: 4.3-6.1 % 7.5 (H) Est Avg Gluc No range found 169 Recent Labs Basename 05/12/13 0820 05/12/13 0359 05/12/13 0101 05/11/13 2221 05/11/13 2047 05/11/13 1924 05/11/13 1523 05/11/13 1449 05/11/13 1332 05/11/13 1226 05/11/13 0615 POCGLU 190 195 222* 202* 174 177 223* 166 209* 213* 183 Assessment: Mr. Cheung is a 57 y/o recently diagnosed with rectal cancer, he is now POD # 1 s/p APR with left gracilis tunneled flap. Given that he remains NPO and his recent surgery recommend the use of insulin at least while in the hospital for the management of his type 2 diabetes. Will start him on basal / bolus insulin regimen for now as noted below. He may need to use insulin at home depending on his nutritional intake and tolerance of PO medications. Plan: In hospital - Orders written, will continue to follow ?? Lantus 12 units at noon daily ?? Novolog with meals 0-6 units based on 1 unit per 10 grams of CHO, this is about 2 units for a full glucose control boost ?? Novolog correction insulin 1-8 units - custom scale Q 4 hours ?? 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 Esha Jaramillo APRN [facility] [place] Endocrinology Diabetes Management [phone] Pager [phone] This case was discussed with Dr. Amin. 55 min time spent in patient care with 45 spent in assessment, review of glycemic trend and insulindosing since admission and in discussion with the patient & family regarding diabetes management plan in the hospital, reviewed s/s and treatment of hypoglycemia, and discussed goals for glycemicmanagement and rationale post op for good glycemic control. I also discussed the plan of inpatient diabetic care with the primary team as well as nursing. * Op Note - Yevgeniy Adan - 05/12/2013 9:23 AM EDT [facility] [place] Oper[place] Note Patient Name: Adrien Cheung : [id number] MR#: [id number] Case Date: 05/11/2013 - 05/12/2013 Surgeon: Surgeon(s) and Role: Panel 1: * John Hills MD - Primary * Dominique Pichardo MD - Resident-Surgeon Timo Panel 2: * Lu Soto MD - Primary * Gerald Eng MD - Resident-Surgeon Chief Panel 3: * Gustabo Khan MD - Primary * Yevgeniy Adan MD * Junie Dominguez MD - *CONSULTING MD * Samuel Shelby MD - Resident-Damage Adjuster Preoperative diagnosis: RECTAL CANCER Postoperative diagnosis: RECTAL CANCER Procedure(s): @LAPAROSCOPIC PROCTECTOMY, COMPLETE, APR W COLOSTOMY @LYMPHADENECTOMY,ABDOMINAL,REGIONAL,MULTIPLE NODES @EXCLUSION OF SMALL INTESTINE FROM PELVIS FLAP, MYOCUTANEOUS OR FASCIOCUTANEOUS, LOWER EXTREMITY ADJ.TISSUE TRANSFER, REARRANGEMENT, 10.1 TO 30 SQ.CM, LEGS CYSTO, STENT PLACEMENT INTRAOP, TEMPORARY @OMENTAL FLAP, INTRA-ABDOMINAL Anesthesia: General Disposition: Continue with primary case Condition: Stable (Please see the Surgical Encounter Summary for any Implant and Specimen details pertinent to this patient.) Procedure Description: The patient was identified in the pre-operative holding area and informed consent was obtained by each surgical team. He was then taken to the OR and placed in the supine position on the OR table. General anesthesia was induced. After the anesthesia team had completed their preparations, he was moved to the dorsal lithotomy position and prepped and draped in the usual sterile fashion. A time out was performed and the team was ready to proceed with bilateral temporary ureteral stents. A 22Fr cystoscope was then introduced into the bladder. The ureteral orifices were orthotopic. A Newark catheter was then used to intubate the right ureteral orifice over a wire, and was then advanced to the 26 cm adrien where resistance was encountered. This process was repeated on the left with a second Newark catheter. An Emily catheter was then placed and the free ends of the stents were pulled through this catheter and secured with silk ties. Ten cc's were placed in the balloon. With ourportion of the case concluded, he was turned over to the primary team to proceed. * Med Student Progress Note - Cyndy Monk - 05/12/2013 5:13 AM EDT Inpatient Progress Note (Urology Service, MS3) ID: Adrien Cheung is a 57 y.o. male with h/o low rectal cancer s/p neoadjuvant chemoradiation, whois POD #1 s/p lap proctectomy, APR with colostomy; abdominal lymphadenectomy; and omental/L gracilis flap. 24 hour events/Subjective: : Patient seen and examined at the bedside. 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 Objective: Temp: [36.5 ??C (97.7 ??F)-36.9 ??C (98.4 ??F)] Heart Rate: [73-108] Resp: [12-16] BP: (118-146)/(68-87) SpO2: [97 %-100 %] on 3L NC 24 hr Ins & Outs: In 8482 (IV) Out 2510 (UO 1180, blood 1000, 285 RLQ MARIEL drain, 45 LLE drain) Physical Exam - General: A&O, NAD HEENT: PERRL, anicteric sclerae. Grossly edematous. CVS: RRR, no murmurs Pulm: CTAB, no w/r/r Abd: Obese abdomen, tender throughout (worst in RLQ). +NABS. Incisions and dressings c/d/i. Ostomy pink and moist, with sweat in appliance. MARIEL draining serosanguinous fluid. : Uriarte draining dark yellow urine. Skin: warm, dry Ext: no c/c/e, LLE dressing c/d/i. Drain with minimal ss output. Neuro: CN II-XII grossly intact, nonfocal Recent Labs - Recent Labs Basename 05/12/13 0415 05/11/13 2220 WBC 8.0 -- RBC 3.05* -- HGB 9.3* 10.6* HCT 27.0* 30.4* MCV 88.5 -- MCH 30.5 -- MCHC 34.4 -- PLATELET 191 -- RDWCV 13.1 -- NA 136 -- K 3.9 4.3 CL 102 -- CO2 25 -- BUN 9* -- CREATININE 0.56* -- GLUCOSE 207* -- PT -- -- PTT -- -- INR -- -- POC Glucose 195 - 220 Calcium 7.6 Meds - Scheduled Meds: ??? enoxaparin 40 mg Subcutaneous Daily ??? heparin (porcine) 5,000 Units Subcutaneous Once ??? acetaminophen 1,000 mg Oral Once ??? celecoxib 400 mg Oral Once ??? gabapentin 600 mg Oral Once ??? levofloxacin in D5W 750 mg Intravenous Q24H FAITH ??? heparin (porcine) 5,000 Units Subcutaneous Once ??? metroNIDAZOLE ??? acetaminophen 975 mg Oral Q6H ??? metroNIDAZOLE 1,000 mg Intravenous Q8H ? ? insulin aspart 1-4 Units Subcutaneous 4 Times Daily AC & HS ??? metoprolol Continuous Infusions: ??? lactated ringers 125 mL/hr (05/11/130) ??? HYDROmorphone ??? ANIMAL HUSBANDRY TECHNICIAN uribe PRN Meds:.diphenhydrAMINE, ondansetron, naloxone, ondansetron, ondansetron, dextrose 50%, glucagon (human recombinant) Imaging - none new Assessment: Adrien Cheung is a 57 y.o. male with h/o low rectal cancer s/p neoadjuvant chemoradiation, who is POD #1 s/p lap proctectomy, APR with colostomy; abdominal lymphadenectomy; and omental/L gracilis flap. Patient is doing well post- operatively, with minimal pain, stable hemoglobin and adequate UO. Patient needs SCDs in place for prophylaxis, and may transition to NS today. Plan: NEURO: Continue Dilaudid ANIMAL HUSBANDRY TECHNICIAN, Tylenol 975 mg q6h. Start Toradol. CV: no issues. Consider perioperative beta-niyah if tachycardic. PULM: no issues, IS. Nebulizer prn. GI: NPO. : d/c one stent this AM, if no blood in urine d/c second stent this afternoon. Continue Uriarte, monitor I/O ID: Levofloxacin in D5W 750mg IV. Flagyl d/c after dose at 14:00 FenK: NS at 100ml/hr Heme: Monitor H&H Endo: ISS. Endocrinology consult for diabetic management. Ppx: SubQ Lovenox 40mg qD. SCDs and OOB today. DISPO: stable on floor. ETHAN Chen Pager: [phone] * Brief Op Note - Gerald Eng MD - 05/11/2013 10:21 PM EDT Brief Operative Note Patient Name: Adrien Cheung : [id number] MR#: [id number] Case Date: 05/11/2013 Surgeon: Surgeon(s) and Role: Panel 1: * John Hills MD - Primary * Dominique Pichardo MD - Resident-Surgeon Timo Panel 2: * Lu Soto MD - Primary * Gerald Eng MD - Resident-Surgeon Chief Panel 3: * Gustabo Khan MD - Primary * Yevgeniy Adan MD * Junie Dominguez MD - *CONSULTING MD * Samuel Shelby MD - Resident-Damage Adjuster Preoperative diagnosis: RECTAL CANCER Postoperative diagnosis: RECTAL CANCER Procedure(s): @LAPAROSCOPIC PROCTECTOMY, COMPLETE, APR W COLOSTOMY @LYMPHADENECTOMY,ABDOMINAL,REGIONAL,MULTIPLE NODES @EXCLUSION OF SMALL INTESTINE FROM PELVIS FLAP, MYOCUTANEOUS OR FASCIOCUTANEOUS, LOWER EXTREMITY ADJ.TISSUE TRANSFER, REARRANGEMENT, 10.1 TO 30 SQ.CM, LEGS CYSTO, STENT PLACEMENT INTRAOP, TEMPORARY @OMENTAL FLAP, INTRA-ABDOMINAL Anesthesia: General Findings: APR, omental flap, L gracilis flap w/o skin island. Complications: none Fluids: 7.6L NS Estimated Blood Loss: 1L Drains: one abdominal and one L leg donor site drain Disposition: awakened from anesthesia, extubated and taken to the recovery room in a stable condition, having suffered no apparent untoward event. Condition: doing well without problems (Please see the Surgical Encounter Summary for any Implant and Specimen details pertinent to this patient.) * Op Note - John Hills - 05/11/2013 8:58 PM EDT [facility] [place]ative Note Patient Name: Adrien Cheung DOB: [id number] MR#: [id number] Case Date: 05/11/2013 Surgeon: Surgeon(s) and Role: Panel 1: * John Hills MD - Primary * Michelle Myers MD - [employer] * Dominique Pichardo MD - Resident-Surgeon Timo Panel 2: * Lu Soto MD - Primary * Gerald Eng MD - Resident-Surgeon Chief Panel 3: * Gustabo Khan MD - Primary * Yevgeniy Adan MD * Junie Dominguez MD - *CONSULTING MD * Samuel Shelby MD - Resident-Damage Adjuster Preoperative diagnosis: RECTAL CANCER Postoperative diagnosis: RECTAL CANCER Procedure(s): @LAPAROSCOPIC PROCTECTOMY, COMPLETE, APR W COLOSTOMY @LYMPHADENECTOMY,ABDOMINAL,REGIONAL,MULTIPLE NODES @EXCLUSION OF SMALL INTESTINE FROM PELVIS FLAP, MYOCUTANEOUS OR FASCIOCUTANEOUS, LOWER EXTREMITY ADJ.TISSUE TRANSFER, REARRANGEMENT, 10.1 TO 30 SQ.CM, LEGS CYSTO, STENT PLACEMENT INTRAOP, TEMPORARY @OMENTAL FLAP, INTRA-ABDOMINAL General Estimated Blood Loss: 1000 cc Drains: RLQ deep pelvic #19 Sandeep Disposition: awakened from anesthesia, extubated and taken to the recovery room in a stable condition, having suffered no apparent untoward event. Condition: doing well without problems (Please see the Surgical Encounter Summary for any Implant and Specimen details pertinent to this patient.) HPI/Surgical Indications: 57M with low rectal cancer s/p neoadjuvant chemoradiation with threatenedanterior (prostatic) margin Procedure Description: After informed consent was obtained, in which the procedure, risks, benefits, and alternatives were explained to the patient, and he consented, he was brought to the Operating Room table and placed upon it in the supine position. All pressure points were padded. DVT chemoprophylaxis was given, intravenous antibiotics were given, and a brief confirmatory pause was performed. We proceeded to make a 10-cm skin incision at the site of the nascent colostomy and then placed a fascia. The fascia was grasped between Deepthi clamps, the muscle spread with the Cherri, and this was the nascent colostomy site, and a baby Casper wound protector was placed. We then placed a 12 trocar and tied this in place with umbilical tape and established pneumoperitoneum. Inspection of the abdominal cavity noted that our entrance was atraumatic and there was no evidence of metastasis or metastatic lymphadenopathy at any point throughout the case. We proceeded to place several additional ports, one supraumbilical, one suprapubic, and one in the right lower quadrant, and one in the left lower quadrant. We proceeded initially with a medial to lateral dissection. We were able to skeletonize out the proximal CLARK in this manner. However we were unable to identify the ureter and stent. Thus, we did not ligate it at that time, and we did, however, ligate the intervening mesentery up to the colon and transected the colon using an Avinger stapler. We then proceeded with a lateral to medial dissection, taking down the white line of Toldt, and in this manner we were able to properly identify the left ureter, and the ligation of the superior rectal artery was performed at the takeoff from the CLARK, and this completed the lymphadenectomy. We then turned our attention to the pelvis. We had already started the pelvic dissection, and we noted that there was a very large essentially 1-cm vessel, which appeared to be the distal superior rectal artery, but to be honest we were unsure, and it was much larger than normal, and we could not tell laparoscopically if this was the left iliac, which we really did not think so, but given this vascular abnormality decision was made to preemptively convert to open before we got into any trouble. Therefore, an approximately 10-cm infraumbilical skin incision was made from the pubic symphysis to just above the umbilicus at the level of the previous port. Both ports were incorporated. We then placed the XL Casper wound protector and proceeded to identify the aberrant artery, which was indeed a very large, very hypertrophied inferior mesenteric artery. This was doubly ligated and the hypogastric plexus protected, and we proceeded with a total mesorectal excision as planned. We entered the presacral holy plane and pushed the pelvic nerves laterally and, of note, at this point his pelvis was so small and his body habitus with so much adiposity that we really could not get any retractors at all down into the middle part of the pelvis and barely to the sacral promontory and, thus, the vast majority of the procedure was done in a combination of not under direct vision and both sharply and bluntly and to the surgeon's fingertips as best we could. This was definitely a modified 22 altered anatomy case. It was exceedingly difficult pelvic dissection. Eventually, we made it down to the level of the seminal vesicles, and we felt we could no longer do this safely from the abdomen. Thus, we changed to the perineal portion of the procedure. The perineum had already been prepped and draped. The skin was incised using a #10 blade and extrasphincteric standard abdominoperineal resection performed. This also was exceptionally difficult because we had to operate much deeper than anticipated because of the patient's body habitus with a very long, narrow pelvis. We started posteriorly, transected the anococcygeal ligament, and then used the LigaSure device to transect the rest of the posterior attachments. We were able to hook a finger and/or right angle around the sides and continue in this manner until it was mobilized circumferentially, excluding the remainder of the anterior remaining. Of note, we did have to do quite a bit of blunt dissection blindly in order to get even this far. At this point, we had already palpated both bilateral ureteral stents, and they were out of harm's way at all times during both parts of the procedure, and we proceeded to turn our attention anteriorly. We made sure to stay as close to the urethra as possible without getting into it, and then we found a soft area of the prostate just distal to the tumor, and we took the capsule of the prostate, as the anterior margin in this case, with a small amount of prostatic tissue as well. Of note, both seminal vesicles came with the specimen as well. At this point, the dissection was quite difficult and I wanted to make sure that the seminal vesicles and prostate and the base of the bladder were not injured, and Dr. Dominguez was kind enough to scrub in and confirm that everything seemed okay and added that we should backfill the bladder with blue dye, which we did, and there was no leaking. She suggested that we leave the Uriarte in for five days and check a cystogram also, which we will consider. The pelvis was then copiously irrigated out with 3 liters of saline. It was hemostatic. We placed a #19 Sandeep drain in the deep pelvis, and we proceeded to mature the colostomy in the left upper quadrant site using brookjermaine stitches. The midline fascia was closed using running double looped #1 PDS tied in the center, the subcutaneous tissues irrigated out with triple-antibiotic solution, and the skin closed with 4-0 Monocryl and DermaFlex. For the perineal defect, please see Dr. Lu Soto's separately dictated operative note. For my portion of the procedure there were no complications. Total Estimated Blood Loss: 1000 mL. Estimated Intravenous Fluids: 6000 mL. All needle, instrument, lap/spounge counts were correct. There were no complications. John Hills MD, MS, FACS neighborhood planner Division of Colon and Rectal Surgery [facility] Pager #[phone] * OR Attestation - John Hills - 05/11/2013 8:57 PM EDT Attestation: Case Date: 05/11/2013 I was present and I participated during the entire procedure (does not need to include opening and closing). JOHN HILLS MD 05/11/2013 * Op Note - Junie Dominguez MD - 05/11/2013 7:32 PM EDT Operative Note Patient Name: Adrien Cheung : [id number] MR#: [id number] Case Date: 05/11/2013 Surgeon: Surgeon(s) and Role: Panel 1: * Jonh Hills MD - Primary * Dominique Pichardo MD - Resident-Surgeon Timo Panel 2: * Lu Soto MD - Primary * Gerald Eng MD - Resident-Surgeon Chief Panel 3: * Gustabo Khan MD - Primary * Yevgeniy Adan MD * Junie Dominguez MD - *CONSULTING MD * Samuel Shelby MD - Resident-Damage Adjuster Preoperative diagnosis: RECTAL CANCER Postoperative diagnosis: RECTAL CANCER Procedure(s): @LAPAROSCOPIC PROCTECTOMY, COMPLETE, APR W COLOSTOMY @MOBILIZATION OF SPLENIC FLEXURE @LYMPHADENECTOMY,ABDOMINAL,REGIONAL,MULTIPLE NODES @EXCLUSION OF SMALL INTESTINE FROM PELVIS FLAP, MYOCUTANEOUS OR FASCIOCUTANEOUS, LOWER EXTREMITY ADJ.TISSUE TRANSFER, REARRANGEMENT, 10.1 TO 30 SQ.CM, LEGS CYSTO, STENT PLACEMENT INTRAOP, TEMPORARY @OMENTAL FLAP, INTRA-ABDOMINAL Anesthesia: General Findings: - Tumor abutting prostate but no gross invasion - No evidence of gross urethral injury and no extravasation of dye when injected retrograde - Bladder backfilled with 240cc methylene blue w/ no evidence of extravasation Complications: none Disposition: Patient remained intubated for completion of case with Colorectal / Plastic Surgery Condition: doing well without problems (Please see the Surgical Encounter Summary for any Implant and Specimen details pertinent to this patient.) HPI: The patient is a 57-year-old male with rectal cancer who presented for planned abdominoperineal resection with colorectal surgery. This was initially planned to be done laparoscopically; however, due to the patient's habitus this was converted to an open APR. Per General Surgery, there was difficulty with the abdominal approach from the right side abdominally, so the majority of the dissection was performed through the perineum. There was concern at the time of the resection that there may have been injury to the urethra, prostate, bladder due to the fact that this was done primarily through the perineum. As such, the Urology Service was consulted for assistance to evaluate for any injury to the tract. Procedure: The Colorectal Service had almost entirely completed the removal of the rectum. When the specimen was finally taken, both seminal vesicles were taken with the specimen as was a small piece of the prostate. The perineal wound was then inspected. There was one area at the level of the bulbar urethra that appeared to be thin. However, there was no obvious catheter that was exposed suggesting a urethral injury. To confirm there was no urethral injury, methylene blue was injected in a retrograde fashion and the area inspected. There was no dye suggestive of leak and no blue was seen in the field. To evaluate the bladder, it was backfilled using 220 mL of methylene blue saline. The abdominal wound was inspected and dry lap placed dependant to the bladder, and there was no blue staining, suggesting that there was not damage to the bladder either. Confident that there was no injury, the Colorectal Service took over to complete their portion of the procedure. * Brief Op Note - Samuel Shelby - 05/11/2013 7:29 PM EDT Brief Operative Note Patient Name: Adrien Cheung : [id number] MR#: [id number] Case Date: 05/11/2013 Surgeon: Surgeon(s) and Role: Panel 1: * John Hills MD - Primary * Dominique Pichardo MD - Resident-Surgeon Timo Panel 2: * Lu Soto MD - Primary * Gerald Eng MD - Resident-Surgeon Chief Panel 3: * Gustabo Khan MD - Primary * Yevgeniy Adan MD * Junie Dominguez MD - *CONSULTING MD * Samuel Shelby MD - Resident-Damage Adjuster Preoperative diagnosis: RECTAL CANCER Postoperative diagnosis: RECTAL CANCER Procedure(s): @LAPAROSCOPIC PROCTECTOMY, COMPLETE, APR W COLOSTOMY @MOBILIZATION OF SPLENIC FLEXURE @LYMPHADENECTOMY,ABDOMINAL,REGIONAL,MULTIPLE NODES @EXCLUSION OF SMALL INTESTINE FROM PELVIS FLAP, MYOCUTANEOUS OR FASCIOCUTANEOUS, LOWER EXTREMITY ADJ.TISSUE TRANSFER, REARRANGEMENT, 10.1 TO 30 SQ.CM, LEGS CYSTO, STENT PLACEMENT INTRAOP, TEMPORARY @OMENTAL FLAP, INTRA-ABDOMINAL Anesthesia: General Findings: - Tumor abutting prostate but no gross invasion - No evidence of gross urethral injury and no extravasation of dye when injected retrograde - Bladder backfilled with 240cc methylene blue w/ no evidence of extravasation Complications: none Disposition: Patient remained intubated for completion of case with Colorectal / Plastic Surgery Condition: doing well without problems (Please see the Surgical Encounter Summary for any Implant and Specimen details pertinent to this patient.) * OR Attestation - Gustabo Khan MD - 05/11/2013 9:01 AM EDT Attestation: Case Date: 05/11/2013 I was present and I participated during the entire procedure (does not need to include opening and closing). GUSTABO KHAN MD 05/11/2013 * OR Attestation - Lu Soto MD - 05/11/2013 7:32 AM EDT Attestation: Case Date: 05/11/2013 - 05/12/2013 I was present and I participated during the entire procedure (does not need to include opening and closing). LU SOTO MD 05/12/2013 * Op Note - Lu Soto MD - 05/11/2013 7:16 AM EDT [facility] [place] Note Patient Name: Adrien Cheung : [id number] MR#: [id number] Case Date: 05/11/2013 - 05/12/2013 Surgeon: Surgeon(s) and Role: Panel 1: * John Hills MD - Primary * Dominique Pichardo MD - Resident-Surgeon Timo Panel 2: * Lu Soto MD - Primary * Gerald Eng MD - Resident-Surgeon Chief Panel 3: * Gustabo Khan MD - Primary * Yevgeniy Adan MD * Junie Dominguez MD - *CONSULTING MD * Samuel Shelby MD - Resident-Damage Adjuster Preoperative diagnosis: RECTAL CANCER Postoperative diagnosis: RECTAL CANCER Procedure(s): @LAPAROSCOPIC PROCTECTOMY, COMPLETE, APR W COLOSTOMY @LYMPHADENECTOMY,ABDOMINAL,REGIONAL,MULTIPLE NODES @EXCLUSION OF SMALL INTESTINE FROM PELVIS FLAP, MYOCUTANEOUS OR FASCIOCUTANEOUS, LOWER EXTREMITY ADJ.TISSUE TRANSFER, REARRANGEMENT, 10.1 TO 30 SQ.CM, LEGS CYSTO, STENT PLACEMENT INTRAOP, TEMPORARY @OMENTAL FLAP, INTRA-ABDOMINAL Anesthesia: General Estimated Blood Loss:1L Drains: per brief op note Disposition: awakened from anesthesia, extubated and taken to the recovery room in a stable condition, having suffered no apparent untoward event. Condition: doing well without problems (Please see the Surgical Encounter Summary for any Implant and Specimen details pertinent to this patient.) HPI/Surgical Indications: 57 yo male with anorectal cancer with neoadjuvant chemotherapy. Dr. Hills requested that we aid for flap coverage of perianal wound region to bring vascularized tissue into a radiated bed to decrease post operative wound complication potential. Procedure Description: Operative consent obtained in the preoperative holding area. Pt brought back to the OR and placed on the operating room table. A time was held in which the patient's name, identity, and planned procedure were confirmed and agreed upon by all present. Pt was prepped and draped in the routine sterilefashion. Please see Dr. Hills's note regarding resection of cancer. We decided to perform a left sided gracilis muscle rotational flap without a skin paddle. We did this by drawing a line an in the medial thigh inferior to the pubic tubercle to approximately 4cm proximal to the medial femoral condyle. We dopplered the medial femoral circumflex artery approximately 10cm inferior to the pubic tubercle. Wemade an incision (25cm length) just posterior to this line that would be over the gracilis muscle and posterior to the adductor longus. We identified the saphenous vein which was preserved and dissected posterior to this. Skin flaps were elevated anteriorly and posteriorly and we dissected distal to proximal identifying the sartorius, adductor longus and most posteriorly the gracilis muscle. Gracilis muscle was dissected distal to proximal up to the medial femoral circumflex artery. Distal dinkey engine operator branches from the superficial femoral artery were clipped and cut. We dissected to approximately 3cm distal to the origin of the gracilis but left the origin intact. We created a tunnel from the left thigh to the perineal defect in a subcutaneous plane. We rotated the flap and observed excellent length and bulk to fill in the space of the perineum. The flap was sutured with vicryl to the inner briceno of the cavity. We easily approximated local skin together in a three layer closure: subcutaneous and dermis with vicryl, superificial skin with chromic gut. We washed the donor site andobtained hemostasis, placed a 15 MARIEL drain and closed over the drain in a three layer closure: catalina fascia, dermis with vicryl, superficial skin with a running monocryl. Skin glue placed over leg incision. Bacitracin was placed over perineal incision and both wound had minimal tension with closure. No complications noted Dr. Soto was present for the operation All instruments, needles, sponges accounted for at the beginning and end of the procedure Pt taken to the recovery in good condition * Miscellaneous - Provider, Scanning - 05/11/2013 6:26 AM EDT documented in this encounter Plan of Treatment Not on file documented as of this encounter Procedures Procedure Name Priority Date/Time Associated Diagnosis Comments POCT GLUCOSE Routine 05/18/2013 4:06 PM EDT POCT GLUCOSE Routine 05/18/2013 11:41 AM EDT POCT GLUCOSE Routine 05/18/2013 7:32 AM EDT POCT GLUCOSE Routine 05/18/2013 4:10 AM EDT POCT GLUCOSE Routine 05/17/2013 11:44 PM EDT POCT GLUCOSE Routine 05/17/2013 7:23 PM EDT POCT GLUCOSE Routine 05/17/2013 4:30 PM EDT POCT GLUCOSE Routine 05/17/2013 11:43 AM EDT POCT GLUCOSE Routine 05/17/2013 7:35 AM EDT POCT GLUCOSE Routine 05/17/2013 3:53 AM EDT POCT GLUCOSE Routine 05/17/2013 12:13 AM EDT POCT GLUCOSE Routine 05/16/2013 7:03 PM EDT POCT GLUCOSE Routine 05/16/2013 4:16 PM EDT POCT GLUCOSE Routine 05/16/2013 2:53 PM EDT POCT GLUCOSE Routine 05/16/2013 11:59 AM EDT POCT GLUCOSE Routine 05/16/2013 6:43 AM EDT MAGNESIUM Timed 05/16/2013 6:02 AM EDT BASIC METABOLIC PANEL Timed 05/16/2013 6:02 AM EDT POCT GLUCOSE Routine 05/16/2013 3:56 AM EDT POCT GLUCOSE Routine 05/15/2013 11:31 PM EDT POCT GLUCOSE Routine 05/15/2013 7:14 PM EDT POCT GLUCOSE Routine 05/15/2013 3:48 PM EDT POCT GLUCOSE Routine 05/15/2013 11:28 AM EDT XR ABDOMEN 1 VIEW Routine 05/15/2013 9:1 6 AM EDT POCT GLUCOSE Routine 05/15/2013 7:18 AM EDT HEMOGRAM Timed 05/15/2013 7:18 AM EDT BASIC METABOLIC PANEL Timed 05/15/2013 7:18 AM EDT URINALYSIS WITH REFLEX CULTURE Routine 05/15/2013 6:46 AM EDT URINE CULTURE Routine 05/15/2013 6:44 AM EDT POCT GLUCOSE Routine 05/15/2013 6:02 AM EDT POCT GLUCOSE Routine 05/14/2013 9:13 PM EDT POCT GLUCOSE Routine 05/14/2013 7:17 PM EDT POCT GLUCOSE Routine 05/14/2013 3:38 PM EDT POCT GLUCOSE Routine 05/14/2013 11:49 AM EDT POCT GLUCOSE Routine 05/14/2013 7:20 AM EDT POCT GLUCOSE Routine 05/14/2013 3:50 AM EDT POCT GLUCOSE Routine 05/13/2013 11:48 PM EDT POCT GLUCOSE Routine 05/13/2013 8:13 PM EDT POCT GLUCOSE Routine 05/13/2013 6:17 PM EDT POCT GLUCOSE Routine 05/13/2013 5:00 PM EDT POCT GLUCOSE Routine 05/13/2013 12:05 PM EDT POCT GLUCOSE Routine 05/13/2013 8:04 AM EDT BASIC METABOLIC PANEL Timed 05/13/2013 7:49 AM EDT POCT GLUCOSE Routine 05/13/2013 4:12 AM EDT POCT GLUCOSE Routine 05/13/2013 12:25 AM EDT HEMOGLOBIN AND HEMATOCRIT, BLOOD STAT 05/12/2013 8:54 PM EDT POCT GLUCOSE Routine 05/12/2013 8:03 PM EDT POCT GLUCOSE Routine 05/12/2013 4:39 PM EDT POCT GLUCOSE Routine 05/12/2013 12:41 PM EDT POCT GLUCOSE Routine 05/12/2013 8:20 AM EDT DIFFERENTIAL, AUTOMATED Routine 05/12/2013 4:15 AM EDT CBC (WITH DIFF) Routine 05/12/2013 4:15 AM EDT HEMOGLOBIN A1C Routine 05/12/2013 4:15 AM EDT BASIC METABOLIC PANEL Routine 05/12/2013 4:15 AM EDT POCT GLUCOSE Routine 05/12/2013 3:59 AM EDT POCT GLUCOSE Routine 05/12/2013 1:01 AM EDT POCT GLUCOSE Routine 05/11/2013 10:21 PM EDT HEMOGLOBIN AND HEMATOCRIT, BLOOD STAT 05/11/2013 10:20 PM EDT POTASSIUM STAT 05/11/2013 10:20 PM EDT POCT GLUCOSE Routine 05/11/2013 8:47 PM EDT BLOOD GAS ARTERIAL POC Routine 05/11/2013 7:52 PM EDT POCT GLUCOSE Routine 05/11/2013 7:24 PM EDT SPECIMEN TO PATHOLOGY Routine 05/11/2013 6:40 PM EDT BLOOD GAS ARTERIAL POC Routine 05/11/2013 6:10 PM EDT BLOOD GAS ARTERIAL POC Routine 05/11/2013 5:02 PM EDT FROZEN SECTION REPORT Routine 05/11/2013 4:48 PM EDT SURGICAL PATHOLOGY REPORT Routine 05/11/2013 4:48 PM EDT SPECIMEN TO PATHOLOGY STAT 05/11/2013 4:48 PM EDT BLOOD GAS ARTERIAL POC Routine 05/11/2013 4:04 PM EDT POCT GLUCOSE Routine 05/11/2013 3:23 PM EDT POCT GLUCOSE Routine 05/11/2013 2:49 PM EDT BLOOD GAS ARTERIAL POC Routine 05/11/2013 2:14 PM EDT POCT GLUCOSE Routine 05/11/2013 1:32 PM EDT BLOOD GAS ARTERIAL POC Routine 05/11/2013 1:05 PM EDT POCT GLUCOSE Routine 05/11/2013 12:26 PM EDT BLOOD GAS ARTERIAL POC Routine 05/11/2013 12:10 PM EDT BLOOD GAS ARTERIAL POC Routine 05/11/2013 11:25 AM EDT BLOOD GAS ARTERIAL POC Routine 05/11/2013 11:05 AM EDT BLOOD GAS ARTERIAL POC Routine 05/11/2013 10:03 AM EDT BLOOD GAS ARTERIAL POC Routine 05/11/2013 8:53 AM EDT @OMENTAL FLAP, INTRA-ABDOMINAL (WRVU 6.54) 05/11/2013 7:31 AM EDT RECTAL CANCER CYSTO, STENT PLACEMENT INTRAOP, TEMPORARY (WRVU 2.82) 05/11/2013 7:31 AM EDT RECTAL CANCER ADJ.TISSUE TRANSFER, REARRANGEMENT, 10.1 TO 30 SQ.CM, LEGS (WRVU 9.72) 05/11/2013 7:31 AM EDT RECTAL CANCER FLAP, MYOCUTANEOUS OR FASCIOCUTANEOUS, LOWER EXTREMITY (WRVU 19.04) 05/11/2013 7:31 AM EDT RECTAL CANCER @EXCLUSION OF SMALL INTESTINE FROM PELVIS (WRVU 17.48) 05/11/2013 7:31 AM EDT RECTAL CANCER @LYMPHADENECTOMY,ABDO VIPIN,REGIONAL,MULTIP LE NODES (WRVU 4.88) 05/11/2013 7:31 AM EDT RECTAL CANCER @LAPAROSCOPIC PROCTECTOMY, COMPLETE, APR W COLOSTOMY (WRVU 33) 05/11/2013 7:31 AM EDT RECTAL CANCER POCT GLUCOSE Routine 05/11/2013 6:15 AM EDT documented in this encounter Results * POCT Glucose (05/18/2013 4:06 PM EDT) Glucose, POC 160 60 - 199 mg/dL [facility] Comment: Supplemental ranges: <110 mg/dL before meals <200 mg/dL all other times of the day Blood specimen (specimen) 05/18/2013 4:06 PM EDT 05/18/2013 4:06 PM EDT John Hills MD POINT OF CARE TEST O ANNAMARIAERAKENYA Performing Organization Address [facility] de Phone Number [facility] * POCT Glucose (05/18/2013 11:41 AM EDT) Glucose, POC 149 60 - 199 mg/dL [facility] Comment: Supplemental ranges: <110 mg/dL before meals <200 mg/dL all other times of the day Blood specimen (specimen) 05/18/2013 11:41 AM EDT 05/18/2013 11:41 AM EDT John Hills MD POINT OF CARE TEST O ZACH Performing Organization Address [facility] de Phone Number [facility] * POCT Glucose (05/18/2013 7:32 AM EDT) Glucose, POC 142 60 - 199 mg/dL [facility] Comment: Supplemental ranges: <110 mg/dL before meals <200 mg/dL all other times of the day Blood specimen (specimen) 05/18/2013 7:32 AM EDT 05/18/2013 7:32 AM EDT John Hills MD POINT OF CARE TEST O RDERAKENYA Performing Organization Address [facility] Co de Phone Number [facility] * POCT Glucose (05/18/2013 4:10 AM EDT) Glucose, POC 157 60 - 199 mg/dL [facility] Comment: Supplemental ranges: <110 mg/dL before meals <200 mg/dL all other times of the day Blood specimen (specimen) 05/18/2013 4:10 AM EDT 05/18/2013 4:10 AM EDT John Hills MD POINT OF CARE TEST O RDERAKENYA Performing Organization Address [facility] de Phone Number [facility] * POCT Glucose (05/17/2013 11:44 PM EDT) Glucose, POC 144 60 - 199 mg/dL [facility] Comment: Supplemental ranges: <110 mg/dL before meals <200 mg/dL all other times of the day Blood specimen (specimen) 05/17/2013 11:44 PM EDT 05/17/2013 11:44 PM EDT John Hills MD POINT OF CARE TEST O RDERAKENYA Performing Organization Address [facility] Co de Phone Number [facility] * POCT Glucose (05/17/2013 7:23 PM EDT) Glucose, POC 151 60 - 199 mg/dL [facility] Comment: Supplemental ranges: <110 mg/dL before meals <200 mg/dL all other times of the day Blood specimen (specimen) 05/17/2013 7:23 PM EDT 05/17/2013 7:23 PM EDT John Hills MD POINT OF CARE TEST O RDERABLES Performing Organization Address [facility] Co de Phone Number [facility] * POCT Glucose (05/17/2013 4:30 PM EDT) Glucose, POC 151 60 - 199 mg/dL [facility] Comment: Supplemental ranges: <110 mg/dL before meals <200 mg/dL all other times of the day Blood specimen (specimen) 05/17/2013 4:30 PM EDT 05/17/2013 4:30 PM EDT John Hills MD POINT OF CARE TEST O RDERAKENYA Performing Organization Address [facility] de Phone Number [facility] * POCT Glucose (05/17/2013 11:43 AM EDT) Glucose, POC 185 60 - 199 mg/dL [facility] Comment: Supplemental ranges: <110 mg/dL before meals <200 mg/dL all other times of the day Blood specimen (specimen) 05/17/2013 11:43 AM EDT 05/17/2013 11:43 AM EDT John Hills MD POINT OF CARE TEST O ZACH Performing Organization Address [facility] de Phone Number [facility] * POCT Glucose (05/17/2013 7:35 AM EDT) Glucose, POC 169 60 - 199 mg/dL [facility] Comment: Supplemental ranges: <110 mg/dL before meals <200 mg/dL all other times of the day Blood specimen (specimen) 05/17/2013 7:35 AM EDT 05/17/2013 7:35 AM EDT John Hills MD POINT OF CARE TEST O RDERAKENYA Performing Organization Address [facility] de Phone Number [facility] * POCT Glucose (05/17/2013 3:53 AM EDT) Glucose, POC 125 60 - 199 mg/dL [facility] Comment: Supplemental ranges: <110 mg/dL before meals <200 mg/dL all other times of the day Blood specimen (specimen) 05/17/2013 3:53 AM EDT 05/17/2013 3:53 AM EDT John Hills MD POINT OF CARE TEST O RDERABLES Performing Organization Address [facility] de Phone Number [facility] * POCT Glucose (05/17/2013 12:13 AM EDT) Glucose, POC 172 60 - 199 mg/dL [facility] Comment: Supplemental ranges: <110 mg/dL before meals <200 mg/dL all other times of the day Blood specimen (specimen) 05/17/2013 12:13 AM EDT 05/17/2013 12:13 AM EDT oJhn Hills MD POINT OF CARE TEST O RDERAKENYA Performing Organization Address [facility] Phone Number [facility] * POCT Glucose (05/16/2013 7:03 PM EDT) Glucose, POC 138 60 - 199 mg/dL [facility] Comment: Supplemental ranges: <110 mg/dL before meals <200 mg/dL all other times of the day Blood specimen (specimen) 05/16/2013 7:03 PM EDT 05/16/2013 7:03 PM EDT John Hills MD POINT OF CARE TEST O RDERAKENYA Performing Organization Address [facility] de Phone Number [facility] * POCT Glucose (05/16/2013 4:16 PM EDT) Glucose, POC 120 60 - 199 mg/dL [facility] Comment: Supplemental ranges: <110 mg/dL before meals <200 mg/dL all other times of the day Blood specimen (specimen) 05/16/2013 4:16 PM EDT 05/16/2013 4:16 PM EDT John Hills MD POINT OF CARE TEST O RDERABLES Performing Organization Address [facility] de Phone Number [facility] * POCT Glucose (05/16/2013 2:53 PM EDT) Glucose, POC 150 60 - 199 mg/dL [facility] Comment: Supplemental ranges: <110 mg/dL before meals <200 mg/dL all other times of the day Blood specimen (specimen) 05/16/2013 2:53 PM EDT 05/16/2013 2:53 PM EDT John Hills MD POINT OF CARE TEST O RDERAKENYA Performing Organization Address [facility] de Phone Number [facility] * (ABNORMAL) POCT Glucose (05/16/2013 11:59 AM EDT) Glucose, POC 243(H) 60 - 199 mg/dL [facility] Comment: Supplemental ranges: <110 mg/dL before meals <200 mg/dL all other times of the day Blood specimen (specimen) 05/16/2013 11:59 AM EDT 05/16/2013 11:59 AM EDT John Hills MD POINT OF CARE TEST O ANNAMARIAERAKENYA Performing Organization Address [facility] de Phone Number [facility] * POCT Glucose (05/16/2013 6:43 AM EDT) Glucose, POC 175 60 - 199 mg/dL [facility] Comment: Supplemental ranges: <110 mg/dL before meals <200 mg/dL all other times of the day Blood specimen (specimen) 05/16/2013 6:43 AM EDT 05/16/2013 6:43 AM EDT John Hills MD POINT OF CARE TEST O RDERAKENYA Performing Organization Address [facility] de Phone Number [facility] * Magnesium (05/16/2013 6:02 AM EDT) Magnesium 0.72 0.69 - 1.07 mmol/L CERNER MILLENNIUM Blood specimen (specimen) 05/16/2013 6:02 AM EDT 05/16/2013 6:09 AM EDT Narrative Resulting Agency Comment Spec In Lab John Hills MD CHEMISTRY ORDERABLES CERN[facility] MILLENNIUM * (ABNORMAL) Basic Metabolic Panel (non-fasting) (05/16/2013 6:02 AM EDT) Glucose 166 60 - 199 mg/dL [facility] Comment:Diabetes: >=200 mg/d L plus symptoms Blood Urea Nitrogen 11 10 - 20 mg/dL CERNER MILLENNIUM Creatinine 0.40(L) 0.80 - 1.50 mg/dL [facility] MILLENNIUM Comment: Please note that the pediatric reference intervals supplied above were not validated at [facility]. Results from pediatric patients should be interpreted in conjunction to the patient's age, height and muscle mass. Sodium 137 135 - 145 mmol/L CERNER MILLENNIUM Potassium 3.9 3.5 - 5.0 mmol/L [facility]ERN[facility] MILLENNIUM Comment: Please note: ??Patients with WBC >100,000 may have falsely elevated Potassium levels. ??For accurate Potassium quantification in these patients send serum separator tube (gold top) for subsequent determinations. ??Contact the Clinical Chemistry Laboratory if there are any questions. Chloride 100 98 - 107 mmol/L CERNER MILLENNIUM Carbon Dioxide 25 22 - 31 mmol/L CERNER MILLENNIUM Anion Gap 12 5 - 15 mmol/L CERNER MILLENNIUM Calcium 8.2(L) 8.5 - 10.5 mg/dL CERNER MILLENNIUM Est Glomerular Filtration Rate [...] the following links into your internet browser. http://www.nkdep.nih.gov/lab-evaluation.shtml http://www.kidney.org/professionals/ Blood specimen (specimen) 05/16/2013 6:02 AM EDT 05/16/2013 6:09 AM EDT Narrative Resulting Agency Comment Spec In Lab John Hills MD CHEMISTRY ORDERABLES Performing Organization Address [facility] Co de Phone Number [facility] * POCT Glucose (05/16/2013 3:56 AM EDT) Glucose, POC 155 60 - 199 mg/dL [facility] Comment: Supplemental ranges: <110 mg/dL before meals <200 mg/dL all other times of the day Blood specimen (specimen) 05/16/2013 3:56 AM EDT 05/16/2013 3:56 AM EDT John Hills MD POINT OF CARE TEST O RDERABLES Performing Organization Address [facility] de Phone Number [facility] * POCT Glucose (05/15/2013 11:31 PM EDT) Glucose, POC 149 60 - 199 mg/dL [facility] Comment: Supplemental ranges: <110 mg/dL before meals <200 mg/dL all other times of the day Blood specimen (specimen) 05/15/2013 11:31 PM EDT 05/15/2013 11:31 PM EDT John Hills MD POINT OF CARE TEST O RDERABLES Performing Organization Address [facility] Co de Phone Number [facility] * POCT Glucose (05/15/2013 7:14 PM EDT) Glucose, POC 157 60 - 199 mg/dL [facility] Comment: Supplemental ranges: <110 mg/dL before meals <200 mg/dL all other times of the day Blood specimen (specimen) 05/15/2013 7:14 PM EDT 05/15/2013 7:14 PM EDT John Hills MD POINT OF CARE TEST O RDERABLES Performing Organization Address [facility] de Phone Number [facility] * POCT Glucose (05/15/2013 3:48 PM EDT) Glucose, POC 172 60 - 199 mg/dL [facility] Comment: Supplemental ranges: <110 mg/dL before meals <200 mg/dL all other times of the day Blood specimen (specimen) 05/15/2013 3:48 PM EDT 05/15/2013 3:48 PM EDT John Hills MD POINT OF CARE TEST O RDERABLES Performing Organization Address [facility] de Phone Number [facility] * (ABNORMAL) POCT Glucose (05/15/2013 11:28 AM EDT) Glucose, POC 213(H) 60 - 199 mg/dL [facility] Comment: Supplemental ranges: <110 mg/dL before meals <200 mg/dL all other times of the day Blood specimen (specimen) 05/15/2013 11:28 AM EDT 05/15/2013 11:28 AM EDT John Hills MD POINT OF CARE TEST O RDERABLES Performing Organization Address [facility] Phone Number [facility] * (ABNORMAL) XR abdomen 1 view (05/15/2013 9:16 AM EDT) Anatomical Region Laterality Modality Abdomen N/A Radiographic Clark ging 05/15/2013 9:16 AM EDT Narrative 05/15/2013 3:54 PM EDT Examination DIAG ABDOMEN SINGLE VIEW/XPORT Clinical History s/p large volume emesis Comparison CT April 06, 2013. Technique 2 portable AP supine views of the abdomen. Findings Evaluation for free air is not possible on the supine views, which exclude part of the right upper abdomen. ??Nonspecific paucity of small bowel gas. ??Some normal-appearing bowel gas is seen along the transverse colon and within the stomach. ??A drain is present in projection onto the pelvis. ??A focal lucency in the or in projection onto the pubic bone just lateral to the pubic symphysis on the left side was not seen on the head of it view of the prior CT. ??This finding may be just due to superimposition's, however, a small new osteolytic lesion is also considered taking the patient's known history of malignancy into account. Impression Very limited evaluation on the supine views. Free air is not excluded. ?? Nonspecific bowel gas pattern. UNEXPECTED FINDING of a new lucency of the pubic bone on the left uncertain whether this is a superimposition or a new osteolytic lesion, which would be concerning for osseous metastasis. Resulting Agency Comment Unexpected Finding Procedure Note Tammie Calloway MD - 05/15/2013 Examination DIAG ABDOMEN SINGLE VIEW/XPORT Clinical History s/p large volume emesis Comparison CT April 06, 2013. Technique 2 portable AP supine views of the abdomen. Findings Evaluation for free air is not possible on the supine views, which excludepart of the right upper abdomen. Nonspecific paucity of small bowel gas. Some normal-appearing bowel gas is seen along the transverse colon and withinthe stomach. A drain is present in projection onto the pelvis. A focallucency in the or in projection onto the pubic bone just lateral to the pubicsymphysis on the left side was not seen on the head of it view of the prior CT. Thisfinding may be just due to superimposition's, however, a small new osteolytic lesionis also considered taking the patient's known history of malignancy intoaccount. Impression Very limited evaluation on the supine views. Free air is not excluded. Nonspecific bowel gas pattern. UNEXPECTED FINDING of a new lucency of the pubic bone on the leftuncertain whether this is a superimposition or a new osteolytic lesion, which wouldbe concerning for osseous metastasis. John Hills MD IMG DX ORDERABLES * (ABNORMAL) POCT Glucose (05/15/2013 7:18 AM EDT) Pathologist [facility] Glucose, POC 205(H) 60 - 199 mg/dL [facility] Comment: Supplemental ranges: <110 mg/dL before meals <200 mg/dL all other times of the day Blood specimen (specimen) 05/15/2013 7:18 AM EDT 05/15/2013 7:18 AM EDT John Hills MD POINT OF CARE TEST O RDERABLES Performing Organization Address [facility] Center/[facility] Co de Phone Number ROBERTA KENNEDYIUM * (ABNORMAL) Hemogram (05/15/2013 7:18 AM EDT) White Blood Cell 6.9 4.0 - 10.0 x10(3)/mc L CERNER MILLENNIUM Red Blood Cell 3.33(L) 4.63 - 6.08 x10(6)/mc L CERNER MILLENNIUM Hemoglobin 10.4(L) 13.7 - 17.5 gm/dL CERNER MILLENNIUM Hematocrit 30.2(L) 40.0 - 51.0 % CERNER MILLENNIUM Mean Cell Volume 90.7 79.0 - 92.0 fL CERNER MILLENNIUM Mean Cell Hemoglobin 31.2 25.6 - 32.2 pg CERNER MILLENNIUM Mean Cell Hemoglobin Concentration 34.4 32.0 - 36.5 gm/dL CERNER MILLENNIUM Platelet 240 145 - 370 x10(3)/mc L CERNER MILLENNIUM RDW Standard Deviation 44.1 35.0 - 46.0 fL CERNER MILLENNIUM RDW coefficient of variation 13.4 10.9 - 14.4 % CERNER MILLENNIUM Mean Platelet Volume 9.3 9.0 - 12.0 fL CERNER MILLENNIUM Blood specimen (specimen) 05/15/2013 7:18 AM EDT 05/15/2013 7:23 AM EDT Narrative Resulting Agency Comment Spec In Lab John Hills MD HEMATOLOGY ORDERABLE S Performing Organization Address [facility] Co de Phone Number ROBERTA KENNEDYIUM * (ABNORMAL) Basic Metabolic Panel (non-fasting) (05/15/2013 7:18 AM EDT) Glucose 200(H) 60 - 199 mg/dL CERNER MILLENNIUM Comment:Diabetes: >=200 mg/d L plus symptoms Blood Urea Nitrogen 8(L) 10 - 20 mg/dL CERNER MILLENNIUM Creatinine 0.45(L) 0.80 - 1.50 mg/dL CERNER MILLENNIUM Comment: Please note that the pediatric reference intervals supplied above were not validated at [facility]. Results from pediatric patients should be interpreted in conjunction to the patient's age, height and muscle mass. Sodium 139 135 - 145 mmol/L CERNER MILLENNIUM Potassium 4.3 3.5 - 5.0 mmol/L CERNER MILLENNIUM Comment: Please note: ??Patients with WBC >100,000 may have falsely elevated Potassium levels. ??For accurate Potassium quantification in these patients send serum separator tube (gold top) for subsequent determinations. ??Contact the Clinical Chemistry Laboratory if there are any questions. Chloride 100 98 - 107 mmol/L CERNER MILLENNIUM Carbon Dioxide 27 22 - 31 mmol/L CERNER MILLENNIUM Anion Gap 12 5 - 15 mmol/L CERNER MILLENNIUM Anion Gap 12 5 - 15 mmol/L CERNER MILLENNIUM Calcium 8.2(L) 8.5 - 10.5 mg/dL CERNER MILLENNIUM Est Glomerular Filtration Rate [...] the following links into your internet browser. http://www.nkdep.nih.gov/lab-evaluation.shtml http://www.kidney.org/professionals/ Blood specimen (specimen) 05/15/2013 7:18 AM EDT 05/15/2013 7:23 AM EDT Narrative Resulting Agency Comment Spec In Lab John Hills MD CHEMISTRY ORDERABLES [facility] SwirlIUM * (ABNORMAL) Urinalysis with microscopic (05/15/2013 6:46 AM EDT) Glucose, Urine Dipstick Negative Negative mg/dL CERNER MILLENNIUM Protein, Urine Dipstick Trace(A) Neg mg/dL CERNER MILLENNIUM Bilirubin, Urine Dipstick Negative Negative mg/dL CERNER MILLENNIUM Urobilinogen, Urine Dipstick Normal mg/dL CERNER MILLENNIUM pH, Urn (dipstick) 7.0 5.0 - 8.0 CERNER MILLENNIUM Blood, Urine Dipstick Trace(A) Neg CERNER MILLENNIUM Ketone, Urine Dipstick 40(A) Neg mg/dL CERNER MILLENNIUM Nitrite, Urine Dipstick Negative CERNER MILLENNIUM Leukocytes, Urine Dipstick Negative mcL CERNER MILLENNIUM Appearance, Urine Dipstick Clear Clear CERNER MILLENNIUM Specific [place] Urine Automated 1.013 1.002 - 1.030 CERNER MILLENNIUM Color, Urine Dipstick Yellow Yellow CERNER MILLENNIUM RBC, Urine 5(H) 0 - 3 /HPF CERNER MILLENNIUM WBC, Urine 6(H) 0 - 3 /HPF CERNER MILLENNIUM Bacteria, Urine Rare(A) None /HPF CERNER MILLENNIUM Urine specimen (specimen) 05/15/2013 6:46 AM EDT 05/15/2013 7:07 AM EDT Narrative Resulting Agency Comment Spec In Lab John Hills MD URINE ORDERABLES CERNER MILLENNIUM * Urine culture Urine (05/15/2013 6:44 AM EDT) Urine Culture ? Patient Name: ADRIEN CHEUNG ?Ordered By: JOHN HILLS ? MR#: [id number] ?LOC: ??4WST ? /Sex: ??1955 (57 years), ? Male ? PROCEDURE: Urine Culture ?SOURCE: U [facility] ? COLLECTED: 05/15/2013 06:44 ? STARTED: 05/15/2013 08:20 ? AMENDED REPORT ? Amended Final Report ? Verified:2012 11:18 ? No growth (Less than 1,000 cfu/ml). ? FINAL REPORT ? Final Report ? Verified:2012 11:16 ? No growth to date. ? PRELIMINARY REPORT ? Preliminary Report ? Verified:2012 07:20 ? No growth to date. ? [facility] Urine specimen obtained via straight catheter (specimen) 05/15/2013 6:44 AM EDT 05/15/2013 8:20 AM EDT Narrative Resulting Agency Comment Spec In Lab John Hills MD MICROBIOLOGY - GENER AL ORDERABLES Performing Organization Address [facility] Co de Phone Number ROBERTA SANTIAGO * (ABNORMAL) POCT Glucose (05/15/2013 6:02 AM EDT) Glucose, POC 206(H) 60 - 199 mg/dL ROBERTA ERIBERTOBALJINDERIUM Comment: Supplemental ranges: <110 mg/dL before meals <200 mg/dL all other times of the day Blood specimen (specimen) 05/15/2013 6:02 AM EDT 05/15/2013 6:02 AM EDT John Hills MD POINT OF CARE TEST O RDERABLES Performing Organization Address [facility] Co de Phone Number [facility] * POCT Glucose (05/14/2013 9:13 PM EDT) Glucose, POC 160 60 - 199 mg/dL [facility] Comment: Supplemental ranges: <110 mg/dL before meals <200 mg/dL all other times of the day Blood specimen (specimen) 05/14/2013 9:13 PM EDT 05/14/2013 9:13 PM EDT John Hills MD POINT OF CARE TEST O RDERAKENYA Performing Organization Address [facility] Co de Phone Number [facility] * POCT Glucose (05/14/2013 7:17 PM EDT) Glucose, POC 179 60 - 199 mg/dL [facility] Comment: Supplemental ranges: <110 mg/dL before meals <200 mg/dL all other times of the day Blood specimen (specimen) 05/14/2013 7:17 PM EDT 05/14/2013 7:17 PM EDT John Hills MD POINT OF CARE TEST O RDERAKENYA Performing Organization Address [facility] de Phone Number [facility] * POCT Glucose (05/14/2013 3:38 PM EDT) Glucose, POC 181 60 - 199 mg/dL [facility] Comment: Supplemental ranges: <110 mg/dL before meals <200 mg/dL all other times of the day Blood specimen (specimen) 05/14/2013 3:38 PM EDT 05/14/2013 3:38 PM EDT John Hills MD POINT OF CARE TEST O RDERAKENYA Performing Organization Address [facility] Co de Phone Number [facility] * POCT Glucose (05/14/2013 11:49 AM EDT) Glucose, POC 144 60 - 199 mg/dL [facility] Comment: Supplemental ranges: <110 mg/dL before meals <200 mg/dL all other times of the day Blood specimen (specimen) 05/14/2013 11:49 AM EDT 05/14/2013 11:49 AM EDT John Hills MD POINT OF CARE TEST O RDERABLES Performing Organization Address [facility] de Phone Number [facility] * POCT Glucose (05/14/2013 7:20 AM EDT) Glucose, POC 181 60 - 199 mg/dL [facility] Comment: Supplemental ranges: <110 mg/dL before meals <200 mg/dL all other times of the day Blood specimen (specimen) 05/14/2013 7:20 AM EDT 05/14/2013 7:20 AM EDT John Hills MD POINT OF CARE TEST O RDERAKENYA Performing Organization Address [facility] de Phone Number [facility] * POCT Glucose (05/14/2013 3:50 AM EDT) Glucose, POC 146 60 - 199 mg/dL [facility] Comment: Supplemental ranges: <110 mg/dL before meals <200 mg/dL all other times of the day Blood specimen (specimen) 05/14/2013 3:50 AM EDT 05/14/2013 3:50 AM EDT John Hills MD POINT OF CARE TEST O RDERAKENYA Performing Organization Address [facility] de Phone Number [facility] * POCT Glucose (05/13/2013 11:48 PM EDT) Glucose, POC 180 60 - 199 mg/dL [facility] Comment: Supplemental ranges: <110 mg/dL before meals <200 mg/dL all other times of the day Blood specimen (specimen) 05/13/2013 11:48 PM EDT 05/13/2013 11:48 PM EDT John Hills MD POINT OF CARE TEST O RDERABLES Performing Organization Address [facility] Co de Phone Number [facility] * POCT Glucose (05/13/2013 8:13 PM EDT) Glucose, POC 192 60 - 199 mg/dL [facility] Comment: Supplemental ranges: <110 mg/dL before meals <200 mg/dL all other times of the day Blood specimen (specimen) 05/13/2013 8:13 PM EDT 05/13/2013 8:13 PM EDT John Hills MD POINT OF CARE TEST O RDERAKENYA Performing Organization Address [facility] de Phone Number [facility] * POCT Glucose (05/13/2013 6:17 PM EDT) Glucose, POC 180 60 - 199 mg/dL [facility] Comment: Supplemental ranges: <110 mg/dL before meals <200 mg/dL all other times of the day Blood specimen (specimen) 05/13/2013 6:17 PM EDT 05/13/2013 6:17 PM EDT John Hills MD POINT OF CARE TEST O RDERABLES Performing Organization Address [facility] de Phone Number [facility] * POCT Glucose (05/13/2013 5:00 PM EDT) Glucose, POC 183 60 - 199 mg/dL [facility] Comment: Supplemental ranges: <110 mg/dL before meals <200 mg/dL all other times of the day Blood specimen (specimen) 05/13/2013 5:00 PM EDT 05/13/2013 5:00 PM EDT John Hills MD POINT OF CARE TEST O RDERABLES Performing Organization Address [facility] Co de Phone Number [facility] * POCT Glucose (05/13/2013 12:05 PM EDT) Glucose, POC 184 60 - 199 mg/dL [facility] MILLENNIUM Comment: Supplemental ranges: <110 mg/dL before meals <200 mg/dL all other times of the day Blood specimen (specimen) 05/13/2013 12:05 PM EDT 05/13/2013 12:05 PM EDT John Hills MD POINT OF CARE TEST O ZACH Performing Organization Address [facility] Co de Phone Number [facility] KENNEDYIUM * POCT Glucose (05/13/2013 8:04 AM EDT) Glucose, POC 187 60 - 199 mg/dL [facility] MILLENNIUM Comment: Supplemental ranges: <110 mg/dL before meals <200 mg/dL all other times of the day Blood specimen (specimen) 05/13/2013 8:04 AM EDT 05/13/2013 8:04 AM EDT John Hills MD POINT OF CARE TEST O ZACH Performing Organization Address [facility] Co de Phone Number [facility] KENNEDYIUM * (ABNORMAL) Basic Metabolic Panel (non-fasting) (05/13/2013 7:49 AM EDT) Glucose 177 60 - 199 mg/dL [facility] MILLENNIUM Comment:Diabetes: >=200 mg/d L plus symptoms Blood Urea Nitrogen 10 10 - 20 mg/dL CERNER MILLENNIUM Creatinine 0.40(L) 0.80 - 1.50 mg/dL CERNER MILLENNIUM Comment: Please note that the pediatric reference intervals supplied above were not validated at [facility]. Results from pediatric patients should be interpreted in conjunction to the patient's age, height and muscle mass. Sodium 138 135 - 145 mmol/L CERNER MILLENNIUM Potassium 4.1 3.5 - 5.0 mmol/L CERNER MILLENNIUM Comment: Please note: ??Patients with WBC >100,000 may have falsely elevated Potassium levels. ??For accurate Potassium quantification in these patients send serum separator tube (gold top) for subsequent determinations. ??Contact the Clinical Chemistry Laboratory if there are any questions. Chloride 103 98 - 107 mmol/L CERNER MILLENNIUM Carbon Dioxide 32(H) 22 - 31 mmol/L CERNER MILLENNIUM Anion Gap 3(L) 5 - 15 mmol/L CERNER MILLENNIUM Anion Gap 3(L) 5 - 15 mmol/L CERNER MILLENNIUM Calcium 7.7(L) 8.5 - 10.5 mg/dL CERNER MILLENNIUM Est Glomerular Filtration Rate [...] the following links into your internet browser. http://www.nkdep.nih.gov/lab-evaluation.shtml http://www.kidney.org/professionals/ Blood specimen (specimen) 05/13/2013 7:49 AM EDT 05/13/2013 7:55 AM EDT Narrative Resulting Agency Comment Spec In Lab John Hills MD CHEMISTRY ORDERABLES Performing Organization Address [facility] Co de Phone Number ROBERTA KENNEDYIUM * POCT Glucose (05/13/2013 4:12 AM EDT) [facility] Glucose, POC 167 60 - 199 mg/dL CERNER MILLENNIUM Comment: Supplemental ranges: <110 mg/dL before meals <200 mg/dL all other times of the day Blood specimen (specimen) 05/13/2013 4:12 AM EDT 05/13/2013 4:12 AM EDT John Hills MD POINT OF CARE TEST O RDERABLES Performing Organization Address City/[facility]/ZIP Co de Phone Number ROBERTA KENNEDYIUM * (ABNORMAL) POCT Glucose (05/13/2013 12:25 AM EDT) Glucose, POC 213(H) 60 - 199 mg/dL [facility] Comment: Supplemental ranges: <110 mg/dL before meals <200 mg/dL all other times of the day Blood specimen (specimen) 05/13/2013 12:25 AM EDT 05/13/2013 12:25 AM EDT John Hills MD POINT OF CARE TEST O ZACH Performing Organization Address [facility] Co de Phone Number [facility] * (ABNORMAL) Hemoglobin and Hematocrit, blood (05/12/2013 8:54 PM EDT) Pathologist [facility] Hemoglobin 9.2(L) 13.7 - 17.5 gm/dL [facility] Hematocrit 26.8(L) 40.0 - 51.0 % [facility] Blood specimen (specimen) 05/12/2013 8:54 PM EDT 05/12/2013 9:00 PM EDT Narrative Resulting Agency Comment Spec In Lab John Hills MD HEMATOLOGY ORDERABLE S Performing Organization Address [facility] de Phone Number [facility] * POCT Glucose (05/12/2013 8:03 PM EDT) Glucose, POC 156 60 - 199 mg/dL [facility] Comment: Supplemental ranges: <110 mg/dL before meals <200 mg/dL all other times of the day Blood specimen (specimen) 05/12/2013 8:03 PM EDT 05/12/2013 8:03 PM EDT John Hills MD POINT OF CARE TEST O ZACH Performing Organization Address [facility] de Phone Number [facility] * (ABNORMAL) POCT Glucose (05/12/2013 4:39 PM EDT) Glucose, POC 216(H) 60 - 199 mg/dL [facility] Comment: Supplemental ranges: <110 mg/dL before meals <200 mg/dL all other times of the day Blood specimen (specimen) 05/12/2013 4:39 PM EDT 05/12/2013 4:39 PM EDT Narrative Authorizing Provider Result Nikkie Hills MD POINT OF CARE TEST O ZACH Performing Organization Address [facility] de Phone Number [facility] * (ABNORMAL) POCT Glucose (05/12/2013 12:41 PM EDT) Glucose, POC 226(H) 60 - 199 mg/dL [facility] Comment: Supplemental ranges: <110 mg/dL before meals <200 mg/dL all other times of the day Blood specimen (specimen) 05/12/2013 12:41 PM EDT 05/12/2013 12:41 PM EDT John Hills MD POINT OF CARE TEST O ZACH Performing Organization Address [facility] de Phone Number [facility] * POCT Glucose (05/12/2013 8:20 AM EDT) Glucose, POC 190 60 - 199 mg/dL [facility] Comment: Supplemental ranges: <110 mg/dL before meals <200 mg/dL all other times of the day Blood specimen (specimen) 05/12/2013 8:20 AM EDT 05/12/2013 8:20 AM EDT Narrative Authorizing Provider Result Nikkie Hills MD POINT OF CARE TEST Shala SERRANO Performing Organization Address [facility] de Phone Number [facility] * (ABNORMAL) Hemoglobin A1c (05/12/2013 4:15 AM EDT) Hemoglobin A1c 7.5(H) 4.3 - 6.1 % [facility] Comment: The [place] Diabetes [employer] (ADA) has stated that HbA1c values >or= 6.5% are consistent with the diagnosis of diabetes mellitus. In the absence of hyperglycemia (i.e. plasma glucose > 200 mg/dL) or classic symptoms of hyperglycemia a repeat measurement of HbA1c should be performed on a separate sample to confirm the diagnosis. The ADA also considers an HbA1c value between 5.7% and 6.4% to be consistent with an increased risk of diabetes (prediabetes). Patients with an HbA1c value in this range should be counseled about their increased risk of progressing to diabetes. Reference: Position Statement: Standards of Medical Care in Diabetes 2013. Diabetes Care 2013:36;suppl 1:S11-S66. Estimated Average Glucose 169 mg/dL [facility] Comment: eAG equivalents for HbA1c percentages: HbA1c(%) ?eAG(mg/dL) 6.0 ?126 6.5 ?140 7.0 ?154 7.5 ?169 8.0 ?183 8.5 ?197 9.0 ?212 9.5 ?226 10.0 ? 240 Limitations: The eAG calculation has not been validated on women, individuals below 18 years old and above 70 years old, and individuals with hemoglobinopathies. Additional resources are available on the ADA website: ??http://professional.diabetes.org/glucosecalculator.aspx Jesse CARBAJAL, Robinson J, Mil R, et al. ??Translating the A1C assay into estimated average glucose values. ??Diabetes Care 2008:31(8):7331-4029. Blood specimen (specimen) 05/12/2013 4:15 AM EDT 05/12/2013 8:57 AM EDT Narrative Resulting Agency Comment Spec In Lab John Hills MD CHEMISTRY ORDERABLES CERNER MILLENNIUM * (ABNORMAL) Differential, Automated (05/12/2013 4:15 AM EDT) Neutrophil % 81.3(H) 34.0 - 71.0 % CERNER MILLENNIUM Neutrophil Absolute 6.54(H) 1.50 - 6.30 x10(3)/mc L CERNER MILLENNIUM Lymph % 5.0(L) 19.0 - 53.0 % CERNER MILLENNIUM Lymphocytes Abs 0.4(L) 1.0 - 3.6 x10(3)/mc L CERNER MILLENNIUM Monocyte % 13.6(H) 4.0 - 13.0 % CERNER MILLENNIUM Monocyte Abs 1.1(H) 0.2 - 1.0 x10(3)/mc L CERNER MILLENNIUM Eos % 0.0 0.0 - 7.0 % CERNER MILLENNIUM Eosinophils Abs 0.0 0.0 - 0.5 x10(3)/mc L CERNER MILLENNIUM Basophil % 0.0 0.0 - 2.0 % CERNER MILLENNIUM Baso Absolute 0.0 0.0 - 0.2 x10(3)/mc L CERNER MILLENNIUM Immature Gran % 0.10 0.00 - 0.66 % CERNER MILLENNIUM Comment: Immature granulocytes(IG's)percentage and absolute count will include metamyelocytes, myelocytes, and promyelocytes. Blood smears from CBCs yielding IG's will be scanned manually for concordance. If this scan disagrees with the automated IG or if promyelocytes are noted, a manual differential will be performed. Immature Gran Absolute 0.01 0.00 - 0.05 x10(3)/mc L CERNER MILLENNIUM Blood specimen (specimen) 05/12/2013 4:15 AM EDT 05/12/2013 4:25 AM EDT John Hills MD HEMATOLOGY ORDERABLE S ROBERTA KENNEDYIUM * (ABNORMAL) Basic Metabolic Panel (non-fasting) (05/12/2013 4:15 AM EDT) Glucose 207(H) 60 - 199 mg/dL CERNER MILLENNIUM Comment:Diabetes: >=200 mg/d L plus symptoms Blood Urea Nitrogen 9(L) 10 - 20 mg/dL CERNER MILLENNIUM Creatinine 0.56(L) 0.80 - 1.50 mg/dL CERNER MILLENNIUM Comment: Please note that the pediatric reference intervals supplied above were not validated at [facility]. Results from pediatric patients should be interpreted in conjunction to the patient's age, height and muscle mass. Sodium 136 135 - 145 mmol/L CERNER MILLENNIUM Potassium 3.9 3.5 - 5.0 mmol/L CERNER MILLENNIUM Comment: Please note: ??Patients with WBC >100,000 may have falsely elevated Potassium levels. ??For accurate Potassium quantification in these patients send serum separator tube (gold top) for subsequent determinations. ??Contact the Clinical Chemistry Laboratory if there are any questions. Chloride 102 98 - 107 mmol/L CERNER MILLENNIUM Carbon Dioxide 25 22 - 31 mmol/L CERNER MILLENNIUM Anion Gap 9 5 - 15 mmol/L CERNER MILLENNIUM Calcium 7.6(L) 8.5 - 10.5 mg/dL CERNER MILLENNIUM Est Glomerular Filtration Rate [...] the following links into your internet browser. http://www.nkdep.nih.gov/lab-evaluation.shtml http://www.kidney.org/professionals/ Blood specimen (specimen) 05/12/2013 4:15 AM EDT 05/12/2013 4:25 AM EDT Narrative Resulting Agency Comment Spec In Lab John Hills MD CHEMISTRY ORDERABLES [facility] * (ABNORMAL) CBC (with Diff) (05/12/2013 4:15 AM EDT) [facility] White Blood Cell 8.0 4.0 - 10.0 x10(3)/mc L [facility] Red Blood Cell 3.05(L) 4.63 - 6.08 x10(6)/mc L [facility] Hemoglobin 9.3(L) 13.7 - 17.5 gm/dL [facility] Hematocrit 27.0(L) 40.0 - 51.0 % [facility] Mean Cell Volume 88.5 79.0 - 92.0 fL [facility] Mean Cell Hemoglobin 30.5 25.6 - 32.2 pg [facility] Mean Cell Hemoglobin Concentration 34.4 32.0 - 36.5 gm/dL [facility] Platelet 191 145 - 370 x10(3)/mc L [facility] RDW Standard Deviation 42.4 35.0 - 46.0 fL [facility] RDW coefficient of variation 13.1 10.9 - 14.4 % [facility] Mean Platelet Volume 9.3 9.0 - 12.0 fL [facility] Blood specimen (specimen) 05/12/2013 4:15 AM EDT 05/12/2013 4:25 AM EDT Narrative Resulting Agency Comment Spec In Lab John Hills MD HEMATOLOGY ORDERABLE S Performing Organization Address City/[facility] Co de Phone Number [facility] * POCT Glucose (05/12/2013 3:59 AM EDT) [facility] Glucose, POC 195 60 - 199 mg/dL [facility] Comment: Supplemental ranges: <110 mg/dL before meals <200 mg/dL all other times of the day Blood specimen (specimen) 05/12/2013 3:59 AM EDT 05/12/2013 3:59 AM EDT John Hills MD POINT OF CARE TEST O RDERABLES Performing Organization Address [facility]/ZIP Co de Phone Number [facility] * (ABNORMAL) POCT Glucose (05/12/2013 1:01 AM EDT) Glucose, POC 222(H) 60 - 199 mg/dL [facility] Comment: Supplemental ranges: <110 mg/dL before meals <200 mg/dL all other times of the day Blood specimen (specimen) 05/12/2013 1:01 AM EDT 05/12/2013 1:01 AM EDT John Hills MD POINT OF CARE TEST O RDERABLES Performing Organization Address [facility] Co de Phone Number [facility] * (ABNORMAL) POCT Glucose (05/11/2013 10:21 PM EDT) Glucose, POC 202(H) 60 - 199 mg/dL [facility] Comment: Supplemental ranges: <110 mg/dL before meals <200 mg/dL all other times of the day Blood specimen (specimen) 05/11/2013 10:21 PM EDT 05/11/2013 10:21 PM EDT John Hills MD POINT OF CARE TEST O RDSILVIA Performing Organization Address [facility] de Phone Number [facility] * (ABNORMAL) Hemoglobin and Hematocrit, blood (05/11/2013 10:20 PM EDT) Hemoglobin 10.6(L) 13.7 - 17.5 gm/dL [facility] Hematocrit 30.4(L) 40.0 - 51.0 % [facility] Blood specimen (specimen) 05/11/2013 10:20 PM EDT 05/11/2013 10:25 PM EDT Narrative Resulting Agency Comment Spec In Lab John Hills MD HEMATOLOGY ORDERABLE S Performing Organization Address [facility] Co de Phone Number [facility] * Potassium (05/11/2013 10:20 PM EDT) Potassium 4.3 3.5 - 5.0 mmol/L [facility] Comment: Please note: ??Patients with WBC >100,000 may have falsely elevated Potassium levels. ??For accurate Potassium quantification in these patients send serum separator tube (gold top) for subsequent determinations. ??Contact the Clinical Chemistry Laboratory if there are any questions. Blood specimen (specimen) 05/11/2013 10:20 PM EDT 05/11/2013 10:25 PM EDT Narrative Resulting Agency Comment Spec In Lab John Hills MD CHEMISTRY ORDERABLES Performing Organization Address [facility] Co de Phone Number ISIDROJORGE LUIS MILLENNIUM * POCT Glucose (05/11/2013 8:47 PM EDT) Glucose, POC 174 60 - 199 mg/dL CERNER MILLENNIUM Comment: Supplemental ranges: <110 mg/dL before meals <200 mg/dL all other times of the day Blood specimen (specimen) 05/11/2013 8:47 PM EDT 05/11/2013 8:47 PM EDT John Hills MD POINT OF CARE TEST O RDERABLES Performing Organization Address [facility] de Phone Number CERNER MILLENNIUM * (ABNORMAL) BLOOD GAS 2 ARTERIAL (05/11/2013 7:52 PM EDT) pH, Arterial 7.34(L) CERNER MILLENNIUM PCO2, Arterial 44 mmHg CERNE R MILLENNIUM PO2, Arterial 201(H) mmHg CERNER MILLENNIUM Bicarbonate, Arterial 23.0 mmol/L CERNER MILLENNIUM Base Excess, Arterial -2.8 mmol/L CERNER MILLENNIUM Hgb Blood Gas 11.1(L) gm/dL CERNER MILLENNIUM Comment: Total Hemoglobin (in gm/dL) ?Based on [facility] Hematology ranges: ?Age ?Reference Range Less than 3 days ?14.5 to 22.5 3 days to 2 weeks ? 12.5 to 20.5 2 weeks to 1 month ?10.0 to 18.0 1 to 6 months ?9.4 to 14.0 6 months to 2 years ? 10.5 to 13.5 2 to 6 years ?11.5 to 13.5 6 to 12 years ? 11.5 to 15.5 12 to 18 years (female) 12.0 to 16.0 ? (male) ?? 13.0 to 16.0 > 18 years ? (female) 11.2 to 15.7 ? (male) ?? 13.7 to 17.5 Oxyhemoglobin, Arterial 97.8(H) % CERNER MILLENNIUM Carboxyhemoglob in, Arterial 0.9 % CERNER MILLENNIUM Comment: Nonsmokers: 0.5-1.5% COHB Smokers: Variable, but usually less than 10% Toxic: 20-30% COHB Lethal: Greater than 60% COHB Methemoglobin, Arterial 0.4 % CERNER MILLENNIUM Na Whole Blood 130(L) mmol/L CERNE R MILLENNIUM K Whole Blood 4.3 mmol/L CERNER MILLENNIUM Comment: Please note: Patients with WBC >100,000 may have falsely elevated Potassium levels. Contact the Clinical Chemistry Laboratory if there are any questions. ICa Whole Blood 1.06(L) mmol/L CERN ER MILLENNIUM Comment: Reference Ranges: ?? < 19 yrs: 1.22 - 1.37 mmol/L ? Adults: 1.15 - 1.33 mmol/L Note: ??Total bilirubin higher than 20 mg/dL may lead to falsely low ionized calcium. CL Whole Blood 105 mmol/L CERNE R MILLENNIUM Gluc Whole Bld 162 mg/dL CERNE R MILLENNIUM Comment:Diabetes: >=200 mg/d L plus symptoms. Blood specimen (specimen) 05/11/2013 7:52 PM EDT 05/11/2013 7:52 PM EDT John Hills MD POINT OF CARE TEST O ANNAMARIAERAKENYA CERNER MILLENNIUM * POCT Glucose (05/11/2013 7:24 PM EDT) Glucose, POC 177 60 - 199 mg/dL CERNER MILLENNIUM Comment: Supplemental ranges: <110 mg/dL before meals <200 mg/dL all other times of the day Blood specimen (specimen) 05/11/2013 7:24 PM EDT 05/11/2013 7:24 PM EDT John Hills MD POINT OF CARE TEST O RDSILVIA Performing Organization Address [facility] Co de Phone Number ROBERTA SANTIAGO * Specimen to Pathology (surgical or derm) (05/11/2013 6:40 PM EDT) AP Specimen 05/11/2013 6:40 PM EDT 05/11/2013 6:39 PM EDT Narrative [facility] LU[facility] KENNEDYIUM - 05/11/2013 6:40 PM EDT Specimen requisition ordered. ??Separate Pathology report to follow John Hills MD PATHOLOGY/CYTOLOGY O RDERAKENYA Performing Organization Address City/State/[facility] Co de Phone Number ROBERTA SANTIAGO * (ABNORMAL) BLOOD GAS 2 ARTERIAL (05/11/2013 6:10 PM EDT) pH, Arterial 7.44 CERNER MILLENNIUM PCO2, Arterial 35 mmHg CERNE R MILLENNIUM PO2, Arterial 145(H) mmHg CERNER MILLENNIUM Bicarbonate, Arterial 23.3 mmol/L CERNER MILLENNIUM Base Excess, Arterial -0.9 mmol/L CERNER MILLENNIUM Hgb Blood Gas 12.6(L) gm/dL CERNER MILLENNIUM Comment: Total Hemoglobin (in gm/dL) ?Based on [facility] Hematology ranges: ?Age ?Reference Range Less than 3 days ?14.5 to 22.5 3 days to 2 weeks ? 12.5 to 20.5 2 weeks to 1 month ?10.0 to 18.0 1 to 6 months ?9.4 to 14.0 6 months to 2 years ? 10.5 to 13.5 2 to 6 years ?11.5 to 13.5 6 to 12 years ? 11.5 to 15.5 12 to 18 years (female) 12.0 to 16.0 ? (male) ?? 13.0 to 16.0 > 18 years ? (female) 11.2 to 15.7 ? (male) ?? 13.7 to 17.5 Oxyhemoglobin, Arterial 97.2(H) % CERNER MILLENNIUM Carboxyhemoglob in, Arterial 1.3 % CERNER MILLENNIUM Comment: Nonsmokers: 0.5-1.5% COHB Smokers: Variable, but usually less than 10% Toxic: 20-30% COHB Lethal: Greater than 60% COHB Methemoglobin, Arterial 0.4 % CERNER MILLENNIUM Na Whole Blood 132(L) mmol/L CERNE R MILLENNIUM K Whole Blood 4.1 mmol/L CERNER MILLENNIUM Comment: Please note: Patients with WBC >100,000 may have falsely elevated Potassium levels. Contact the Clinical Chemistry Laboratory if there are any questions. ICa Whole Blood 1.05(L) mmol/L CERN ER MILLENNIUM Comment: Reference Ranges: ?? < 19 yrs: 1.22 - 1.37 mmol/L ? Adults: 1.15 - 1.33 mmol/L Note: ??Total bilirubin higher than 20 mg/dL may lead to falsely low ionized calcium. CL Whole Blood 103 mmol/L CERNE R MILLENNIUM Gluc Whole Bld 176 mg/dL CERNE R MILLENNIUM Comment:Diabetes: >=200 mg/d L plus symptoms. FIO2 Art 80 % CERNER MILLENNIUM PF Ratio Art 181 CERNER MILLENNIUM Temp Art 37.7 Celsius CERNER MILLENNIUM Blood specimen (specimen) 05/11/2013 6:10 PM EDT 05/11/2013 6:10 PM EDT John Hills MD POINT OF CARE TEST O RDERABLES CERNER MILLENNIUM * (ABNORMAL) BLOOD GAS 2 ARTERIAL (05/11/2013 5:02 PM EDT) pH, Arterial 7.44 CERNER MILLENNIUM PCO2, Arterial 32(L) mmHg CERNE R MILLENNIUM PO2, Arterial 124(H) mmHg CERNER MILLENNIUM Bicarbonate, Arterial 21.4 mmol/L CERNER MILLENNIUM Base Excess, Arterial -2.8 mmol/L CERNER MILLENNIUM Hgb Blood Gas 13.2(L) gm/dL CERNER MILLENNIUM Comment: Total Hemoglobin (in gm/dL) ?Based on [facility] Hematology ranges: ?Age ?Reference Range Less than 3 days ?14.5 to 22.5 3 days to 2 weeks ? 12.5 to 20.5 2 weeks to 1 month ?10.0 to 18.0 1 to 6 months ?9.4 to 14.0 6 months to 2 years ? 10.5 to 13.5 2 to 6 years ?11.5 to 13.5 6 to 12 years ? 11.5 to 15.5 12 to 18 years (female) 12.0 to 16.0 ? (male) ?? 13.0 to 16.0 > 18 years ? (female) 11.2 to 15.7 ? (male) ?? 13.7 to 17.5 Oxyhemoglobin, Arterial 96.9 % CERNER MILLENNIUM Carboxyhemoglob in, Arterial 1.3 % CERNER MILLENNIUM Comment: Nonsmokers: 0.5-1.5% COHB Smokers: Variable, but usually less than 10% Toxic: 20-30% COHB Lethal: Greater than 60% COHB Methemoglobin, Arterial 0.3 % CERNER MILLENNIUM Na Whole Blood 133(L) mmol/L CERNE R MILLENNIUM K Whole Blood 4.0 mmol/L CERNER MILLENNIUM Comment: Please note: Patients with WBC >100,000 may have falsely elevated Potassium levels. Contact the Clinical Chemistry Laboratory if there are any questions. ICa Whole Blood 1.07(L) mmol/L CERN ER MILLENNIUM Comment: Reference Ranges: ?? < 19 yrs: 1.22 - 1.37 mmol/L ? Adults: 1.15 - 1.33 mmol/L Note: ??Total bilirubin higher than 20 mg/dL may lead to falsely low ionized calcium. CL Whole Blood 103 mmol/L CERNE R MILLENNIUM Gluc Whole Bld 187 mg/dL CERNE R MILLENNIUM Comment:Diabetes: >=200 mg/d L plus symptoms. FIO2 Art 78 % CERNER MILLENNIUM PF Ratio Art 159 CERNER MILLENNIUM Temp Art 37.6 Celsius CERNER MILLENNIUM Blood specimen (specimen) 05/11/2013 5:02 PM EDT 05/11/2013 5:02 PM EDT John Hills MD POINT OF CARE TEST O RDERABLES CERNER MILLENNIUM * Frozen Section Report (05/11/2013 4:48 PM EDT) Frozen Section Report ? [facility] ? Provider: ?? JOHN HILLS ?? Pt. Name: ?? ADRIEN CHEUNG ? Acc #: ?[id number] ?Pt. ? Col Date: ?? 05/11/2013 ? /Sex: ?1955,(57 years),Male ? Rec Date: ?? 05/11/2013 ? LOC: ?4WST ? FROZEN SECTION REPORT ? ---Frozen Section Report--- ? A - Prostate margin ? negative for malignancy ? B - Left seminal vesicle ? negative for malignancy ? 05/25/13 ??Verified by: ??Ty FUNES, Josue Smith, Pathologist ? The attending pathologist whose electronic signature appears on this report ? has reviewed all diagnostic slides in rendering the frozen section ? diagnosis. ? This intraoperative consultation should be interpreted as a preliminary ? diagnosis pending review of the entire specimen and special studies, if ? any. ROBERTA SANTIAGO 05/11/2013 4:48 PM EDT John Hills MD PATHOLOGY/CYTOLOGY O RDERABLES ROBERTA SANTIAGO * Surgical Pathology Report (05/11/2013 4:48 PM EDT) Surgical Pathology Report ? [facility] ? Provider: ?? JOHN HILLS ?? Pt. Name: ?? ADRIEN CHEUNG ? Acc #: ?[id number] ?Pt. ? Col Date: ?? 05/11/2013 ? /Sex: ?1955,(57 years),Male ? Rec Date: ?? 05/11/2013 ? LOC: ?4WST ? SURGICAL PATHOLOGY ? ---Pathologic Diagnosis--- ? A - Rectum and anus, abdominoperineal resection: ? Adenocarcinoma of the rectum. ? Tumor stage summary: ??ypT3 N0 (see synoptic report). ? SYNOPTIC REPORT: ? Specific site: Distal rectum. ? Tumor size (greatest dimension): Approximately 1.5 cm. ? Tumor grade: Low grade. ? Extent of invasion: ??ypT3 (tumor invades through the muscularis propria ? into pericolorectal tissue. ? Small vessel (blood/lymphatic) invasion: ??Not identified. ? Large vessel (venous) invasion: ??Not identified. ? Perineural invasion: ??Not identified. ? Peritumoral lymphocytic response: ??None or mild. ? Tumor regression grade: ??2 (minimal response): residual cancer outgrown by ? fibrosis. ? Proximal margin: ??Uninvolved (greater than 1.0 cm from tumor). ? Distal margin: ??Uninvolved (greater than 1.0 cm from tumor). ? Radial margin: ??Uninvolved (clearance 2.0 mm to the tumor). ? Prostatic and seminal vesicle margin: Uninvolved. ? Regional lymph nodes: ??ypN0 (no regional lymph node metastasis): 20 nodes ? examined. ? Mismatch Repair Protein Expression: ??Immunostains for MLH1, MSH2, MSH6 and ? PMS2 reveal intact nuclear staining in tumor cells. ??In a very small ? percentage of tumors, there may still be an underlying hereditary defect in ? these DNA mismatch repair genes despite intact nuclear expression of the ? protein in tumor cells. Genetic counseling and/or additional workup is ? indicated in patients with a family history that meets current criteria for ? HNPCC screening. ? B - Left seminal vesicle, resection: ? Unremarkable seminal vesicle. ? [facility] ? Provider: ?? JOHN HILLS ?? Pt. Name: ?? ADRIEN CHEUNG ? Acc #: ?[id number] ?Pt. ? Col Date: ?? 05/11/2013 ? /Sex: ?1955,(57 years),Male ? Rec Date: ?? 05/11/2013 ? LOC: ?4WST ? SURGICAL PATHOLOGY ? CR-0, CR-PX ? 05/18/13 ? AJE ? 05/19/13 Verified by: ? Kash FUNES, Jluis ? Pathologist ? (Electronic Signature) ? The attending pathologist whose signature appears on this report has ? reviewed all diagnostic slides and has edited the gross and/or ? microscopic portion of the report in rendering the final pathologic ? diagnosis. ? ---Frozen Section Diagnosis--- ? Frozen section(s) performed. ??Please refer to separate electronic frozen ? section report(s). ? ---Microscopic Description--- ? Slides reviewed, microscopic description not recorded. ? ---Gross Description--- ? A - Labeled/Fixative: Prostate margin, fresh. ? SPECIMEN DESCRIPTION ? Resection Specimen: TME consisting of rectum and anus. ? Specimen Integrity: Received intact, opened posteriorly for frozen section. ? Quality of Mesorectum Excision: Incomplete. ? Overall Size: 30 x 9 x 7. ? Length/Diameter: 30/4 cm. ? Serosa: [place], smooth and glistening with retraction at the peritoneal ? reflection subjacent to the tumor. ? Mesorectum: The mesorectum is bulky, predominantly smooth with focal full- ? thickness defects with exposed muscularis propria. ??A fragment of seminal ? vesicle and vas deferens is present on the anterior surface. ? TUMOR ? Tumor Site: Anus and lower rectum, beginning at dentate line. ? Tumor Size: 1.7 cm. ? Tumor Configuration: Ulcer. ? Color: [place]onez-white. ? Consistency: Firm. ? Depth of Invasion: Into the mesorectum. ? Proximity to Margins: ??-proximal mucosal margin: 17 cm. ?-distal mucosal margin: 3.7 cm. ?-distal mesorectal margin: 3.7 cm. ?-radial margin (tumor): 0.3 cm (left anterior). ? [facility] ? Provider: ?? JOHN HILLS ?? Pt. Name: ?? ADRIEN CHEUNG ? Acc #: ?[id number] ?Pt. ? Col Date: ?? 05/11/2013 ? /Sex: ?1955,(57 years),Male ? Rec Date: ?? 05/11/2013 ? LOC: ?4WST ? SURGICAL PATHOLOGY ? OTHER ? Lymph Nodes: The lymph nodes are divided into primary and secondary alok ? basins. ? Remaining Bowel: Red, hemorrhagic without further lesions. ? Sections/Processing : Four client account representative sections of the left anterior ? radial margin were submitted en face for frozen section as FS 1-FS 4. ??The ? radial margin is inked black, the defect from the frozen section inked ? yellow. ??(1) FS 1;(2) FS 2; (3) FS 3; (4) FS 4; (5-6) lesion in area of ? deepest extension (radial margin taken as frozen section); (7-12) lesion to ? anterior radial margin; (13-15) lesion to left lateral radial margin; (16) ? seminal vesicle and vas deferens; (17) distal margin (18) proximal margin. ? Lymph nodes from the primary basin: (19-20) one node bisected each; (21-22) ? two nodes bisected each; (23) one node trisected; (24) four nodes. ??Lymph ? nodes from the secondary basin: (25) two nodes; (26-31) one node bisected ? each. ??(R31) ? B - Labeled/Fixative: Left seminal vesicle, fresh. ? Quantity/Size: Single, 2.5 x 2.0 x 0.6 cm. ? Tissue Description: Soft, pink, segment of seminal vesicle. ? Sections/Processing : A client account representative section is submitted for frozen ? section as FS 1. ??(1) FS 1; (2) remaining tissue. ??(T2) ??sns ? ---Clinical Information--- ? Specimen Submitted: ? A - Prostate margin, for frozen section ? B - Left seminal vesicle, for frozen section ? Clinical History: ? Rectal cancer ? Clinical Diagnosis: ? Same [facility] 05/11/2013 4:48 PM EDT John Hills MD PATHOLOGY/CYTOLOGY O ANNAMARIAERAKENYA [facility] * Specimen to Pathology (surgical or derm) (05/11/2013 4:48 PM EDT) AP Specimen 05/11/2013 4:48 PM EDT 05/11/2013 4:48 PM EDT Narrative ROBERTA WEIENNIUM - 05/11/2013 4:48 PM EDT Specimen requisition ordered. ??Separate Pathology report to follow John Hills MD PATHOLOGY/CYTOLOGY Shala SERRANO CERJORGE LUIS MILLENNIUM * (ABNORMAL) BLOOD GAS 2 ARTERIAL (05/11/2013 4:04 PM EDT) pH, Arterial 7.45 CERNER MILLENNIUM PCO2, Arterial 33(L) mmHg CERNE R MILLENNIUM PO2, Arterial 130(H) mmHg CERNER MILLENNIUM Bicarbonate, Arterial 22.2 mmol/L CERNER MILLENNIUM Base Excess, Arterial -1.9 mmol/L CERNER MILLENNIUM Hgb Blood Gas 13.6(L) gm/dL CERNER MILLENNIUM Comment: Total Hemoglobin (in gm/dL) ?Based on [facility] Hematology ranges: ?Age ?Reference Range Less than 3 days ?14.5 to 22.5 3 days to 2 weeks ? 12.5 to 20.5 2 weeks to 1 month ?10.0 to 18.0 1 to 6 months ?9.4 to 14.0 6 months to 2 years ? 10.5 to 13.5 2 to 6 years ?11.5 to 13.5 6 to 12 years ? 11.5 to 15.5 12 to 18 years (female) 12.0 to 16.0 ? (male) ?? 13.0 to 16.0 > 18 years ? (female) 11.2 to 15.7 ? (male) ?? 13.7 to 17.5 Oxyhemoglobin, Arterial 97.1(H) % CERNER MILLENNIUM Carboxyhemoglob in, Arterial 1.4 % CERNER MILLENNIUM Comment: Nonsmokers: 0.5-1.5% COHB Smokers: Variable, but usually less than 10% Toxic: 20-30% COHB Lethal: Greater than 60% COHB Methemoglobin, Arterial 0.3 % CERNER MILLENNIUM Na Whole Blood 133(L) mmol/L CERNE R MILLENNIUM K Whole Blood 4.1 mmol/L CERNER MILLENNIUM Comment: Please note: Patients with WBC >100,000 may have falsely elevated Potassium levels. Contact the Clinical Chemistry Laboratory if there are any questions. ICa Whole Blood 1.08(L) mmol/L CERN ER MILLENNIUM Comment: Reference Ranges: ?? < 19 yrs: 1.22 - 1.37 mmol/L ? Adults: 1.15 - 1.33 mmol/L Note: ??Total bilirubin higher than 20 mg/dL may lead to falsely low ionized calcium. CL Whole Blood 102 mmol/L CERNE R MILLENNIUM Gluc Whole Bld 204(H) mg/dL CERNE R MILLENNIUM Comment:Diabetes: >=200 mg/d L plus symptoms. FIO2 Art 74 % CERNER MILLENNIUM PF Ratio Art 176 CERNER MILLENNIUM Temp Art 37.0 Celsius CERNER MILLENNIUM Blood specimen (specimen) 05/11/2013 4:04 PM EDT 05/11/2013 4:04 PM EDT John Hills MD POINT OF CARE TEST O ZACH Performing Organization Address [facility] de Phone Number [facility] * (ABNORMAL) POCT Glucose (05/11/2013 3:23 PM EDT) Glucose, POC 223(H) 60 - 199 mg/dL CERNER MILLENNIUM Comment: Supplemental ranges: <110 mg/dL before meals <200 mg/dL all other times of the day Blood specimen (specimen) 05/11/2013 3:23 PM EDT 05/11/2013 3:23 PM EDT John Hills MD POINT OF CARE TEST O ANNAMARIAERAKENYA Performing Organization Address [facility] Co de Phone Number [facility] MILLENNIUM * POCT Glucose (05/11/2013 2:49 PM EDT) Glucose, POC 166 60 - 199 mg/dL CERNER MILLENNIUM Comment: Supplemental ranges: <110 mg/dL before meals <200 mg/dL all other times of the day Blood specimen (specimen) 05/11/2013 2:49 PM EDT 05/11/2013 2:49 PM EDT John Hills MD POINT OF CARE TEST O RDERABLES [facility] MILLENNIUM * (ABNORMAL) BLOOD GAS 2 ARTERIAL (05/11/2013 2:14 PM EDT) pH, Arterial 7.38 CERNER MILLENNIUM PCO2, Arterial 44 mmHg CERNE R MILLENNIUM PO2, Arterial 102 mmHg CERNER MILLENNIUM Bicarbonate, Arterial 25.3 mmol/L CERNER MILLENNIUM Base Excess, Arterial 0.1 mmol/L CERNER MILLENNIUM Hgb Blood Gas 13.5(L) gm/dL CERNER MILLENNIUM Comment: Total Hemoglobin (in gm/dL) ?Based on [facility] Hematology ranges: ?Age ?Reference Range Less than 3 days ?14.5 to 22.5 3 days to 2 weeks ? 12.5 to 20.5 2 weeks to 1 month ?10.0 to 18.0 1 to 6 months ?9.4 to 14.0 6 months to 2 years ? 10.5 to 13.5 2 to 6 years ?11.5 to 13.5 6 to 12 years ? 11.5 to 15.5 12 to 18 years (female) 12.0 to 16.0 ? (male) ?? 13.0 to 16.0 > 18 years ? (female) 11.2 to 15.7 ? (male) ?? 13.7 to 17.5 Oxyhemoglobin, Arterial 95.8 % CERNER MILLENNIUM Carboxyhemoglob in, Arterial 1.7 % CERNER MILLENNIUM Comment: Nonsmokers: 0.5-1.5% COHB Smokers: Variable, but usually less than 10% Toxic: 20-30% COHB Lethal: Greater than 60% COHB Methemoglobin, Arterial 0.3 % CERNER MILLENNIUM Na Whole Blood 133(L) mmol/L CERNE R MILLENNIUM K Whole Blood 4.5 mmol/L CERNER MILLENNIUM Comment: Please note: Patients with WBC >100,000 may have falsely elevated Potassium levels. Contact the Clinical Chemistry Laboratory if there are any questions. ICa Whole Blood 1.10(L) mmol/L CERN ER MILLENNIUM Comment: Reference Ranges: ?? < 19 yrs: 1.22 - 1.37 mmol/L ? Adults: 1.15 - 1.33 mmol/L Note: ??Total bilirubin higher than 20 mg/dL may lead to falsely low ionized calcium. CL Whole Blood 101 mmol/L CERNE R MILLENNIUM Gluc Whole Bld 228(H) mg/dL CERNE R MILLENNIUM Comment:Diabetes: >=200 mg/d L plus symptoms. FIO2 Art 70 % CERNER MILLENNIUM PF Ratio Art 146 CERNER MILLENNIUM Temp Art 39.0 Celsius CERNER MILLENNIUM Blood specimen (specimen) 05/11/2013 2:14 PM EDT 05/11/2013 2:14 PM EDT John Hills MD POINT OF CARE TEST O RDERABLES CERNER MILLENNIUM * (ABNORMAL) POCT Glucose (05/11/2013 1:32 PM EDT) Glucose, POC 209(H) 60 - 199 mg/dL CERNER MILLENNIUM Comment: Supplemental ranges: <110 mg/dL before meals <200 mg/dL all other times of the day Blood specimen (specimen) 05/11/2013 1:32 PM EDT 05/11/2013 1:32 PM EDT John Hills MD POINT OF CARE TEST O RDSILVIA CERNER MILLENNIUM * (ABNORMAL) BLOOD GAS 2 ARTERIAL (05/11/2013 1:05 PM EDT) pH, Arterial 7.36 CERNER MILLENNIUM PCO2, Arterial 45 mmHg CERNE R MILLENNIUM PO2, Arterial 102 mmHg CERNER MILLENNIUM Bicarbonate, Arterial 24.7 mmol/L CERNER MILLENNIUM Base Excess, Arterial -0.8 mmol/L CERNER MILLENNIUM Hgb Blood Gas 13.7(L) gm/dL CERNER MILLENNIUM Comment: Total Hemoglobin (in gm/dL) ?Based on [facility] Hematology ranges: ?Age ?Reference Range Less than 3 days ?14.5 to 22.5 3 days to 2 weeks ? 12.5 to 20.5 2 weeks to 1 month ?10.0 to 18.0 1 to 6 months ?9.4 to 14.0 6 months to 2 years ? 10.5 to 13.5 2 to 6 years ?11.5 to 13.5 6 to 12 years ? 11.5 to 15.5 12 to 18 years (female) 12.0 to 16.0 ? (male) ?? 13.0 to 16.0 > 18 years ? (female) 11.2 to 15.7 ? (male) ?? 13.7 to 17.5 Oxyhemoglobin, Arterial 95.8 % CERNER MILLENNIUM Carboxyhemoglob in, Arterial 1.6 % CERNER MILLENNIUM Comment: Nonsmokers: 0.5-1.5% COHB Smokers: Variable, but usually less than 10% Toxic: 20-30% COHB Lethal: Greater than 60% COHB Methemoglobin, Arterial 0.3 % CERNER MILLENNIUM Na Whole Blood 133(L) mmol/L CERNE R MILLENNIUM K Whole Blood 5.0 mmol/L CERNER MILLENNIUM Comment: Please note: Patients with WBC >100,000 may have falsely elevated Potassium levels. Contact the Clinical Chemistry Laboratory if there are any questions. ICa Whole Blood 1.10(L) mmol/L CERN ER MILLENNIUM Comment: Reference Ranges: ?? < 19 yrs: 1.22 - 1.37 mmol/L ? Adults: 1.15 - 1.33 mmol/L Note: ??Total bilirubin higher than 20 mg/dL may lead to falsely low ionized calcium. CL Whole Blood 101 mmol/L CERNE R MILLENNIUM Gluc Whole Bld 228(H) mg/dL CERNE R MILLENNIUM Comment:Diabetes: >=200 mg/d L plus symptoms. Blood specimen (specimen) 05/11/2013 1:05 PM EDT 05/11/2013 1:05 PM EDT John Hills MD POINT OF CARE TEST O ZACH Performing Organization Address City/[facility] Co de Phone Number ROBERTA ERIBERTOENNIUM * (ABNORMAL) POCT Glucose (05/11/2013 12:26 PM EDT) Glucose, POC 213(H) 60 - 199 mg/dL CERNER MILLENNIUM Comment: Supplemental ranges: <110 mg/dL before meals <200 mg/dL all other times of the day Blood specimen (specimen) 05/11/2013 12:26 PM EDT 05/11/2013 12:26 PM EDT John Hills MD POINT OF CARE TEST O ZACH CERJORGE LUIS MILLENNIUM * (ABNORMAL) BLOOD GAS 2 ARTERIAL (05/11/2013 12:10 PM EDT) pH, Arterial 7.35(L) CERNER MILLENNIUM PCO2, Arterial 45 mmHg CERNE R MILLENNIUM PO2, Arterial 107(H) mmHg CERNER MILLENNIUM Bicarbonate, Arterial 24.0 mmol/L CERNER MILLENNIUM Base Excess, Arterial -1.7 mmol/L CERNER MILLENNIUM Hgb Blood Gas 13.5(L) gm/dL CERNER MILLENNIUM Comment: Total Hemoglobin (in gm/dL) ?Based on [facility] Hematology ranges: ?Age ?Reference Range Less than 3 days ?14.5 to 22.5 3 days to 2 weeks ? 12.5 to 20.5 2 weeks to 1 month ?10.0 to 18.0 1 to 6 months ?9.4 to 14.0 6 months to 2 years ? 10.5 to 13.5 2 to 6 years ?11.5 to 13.5 6 to 12 years ? 11.5 to 15.5 12 to 18 years (female) 12.0 to 16.0 ? (male) ?? 13.0 to 16.0 > 18 years ? (female) 11.2 to 15.7 ? (male) ?? 13.7 to 17.5 Oxyhemoglobin, Arterial 96.3 % CERNER MILLENNIUM Carboxyhemoglob in, Arterial 1.3 % CERNER MILLENNIUM Comment: Nonsmokers: 0.5-1.5% COHB Smokers: Variable, but usually less than 10% Toxic: 20-30% COHB Lethal: Greater than 60% COHB Methemoglobin, Arterial 0.2 % CERNER MILLENNIUM Na Whole Blood 133(L) mmol/L CERNE R MILLENNIUM K Whole Blood 4.3 mmol/L CERNER MILLENNIUM Comment: Please note: Patients with WBC >100,000 may have falsely elevated Potassium levels. Contact the Clinical Chemistry Laboratory if there are any questions. ICa Whole Blood 1.11(L) mmol/L CERN ER MILLENNIUM Comment: Reference Ranges: ?? < 19 yrs: 1.22 - 1.37 mmol/L ? Adults: 1.15 - 1.33 mmol/L Note: ??Total bilirubin higher than 20 mg/dL may lead to falsely low ionized calcium. CL Whole Blood 102 mmol/L CERNE R MILLENNIUM Gluc Whole Bld 232(H) mg/dL CERNE R MILLENNIUM Comment:Diabetes: >=200 mg/d L plus symptoms. FIO2 Art 69 % CERNER MILLENNIUM PF Ratio Art 155 CERNER MILLENNIUM Temp Art 36.6 Celsius CERNER MILLENNIUM Blood specimen (specimen) 05/11/2013 12:10 PM EDT 05/11/2013 12:10 PM EDT John Hills MD POINT OF CARE TEST O RDERABLES CERNER MILLENNIUM * (ABNORMAL) BLOOD GAS 2 ARTERIAL (05/11/2013 11:25 AM EDT) pH, Arterial 7.33(L) CERNER MILLENNIUM PCO2, Arterial 50(H) mmHg CERNE R MILLENNIUM PO2, Arterial 101 mmHg CERNER MILLENNIUM Bicarbonate, Arterial 25.8 mmol/L CERNER MILLENNIUM Base Excess, Arterial -0.2 mmol/L CERNER MILLENNIUM Hgb Blood Gas 13.5(L) gm/dL CERNER MILLENNIUM Comment: Total Hemoglobin (in gm/dL) ?Based on [facility] ranges: ?Age ?Reference Range Less than 3 days ?14.5 to 22.5 3 days to 2 weeks ? 12.5 to 20.5 2 weeks to 1 month ?10.0 to 18.0 1 to 6 months ?9.4 to 14.0 6 months to 2 years ? 10.5 to 13.5 2 to 6 years ?11.5 to 13.5 6 to 12 years ? 11.5 to 15.5 12 to 18 years (female) 12.0 to 16.0 ? (male) ?? 13.0 to 16.0 > 18 years ? (female) 11.2 to 15.7 ? (male) ?? 13.7 to 17.5 Oxyhemoglobin, Arterial 95.6 % CERNER MILLENNIUM Carboxyhemoglob in, Arterial 1.5 % CERNER MILLENNIUM Comment: Nonsmokers: 0.5-1.5% COHB Smokers: Variable, but usually less than 10% Toxic: 20-30% COHB Lethal: Greater than 60% COHB Methemoglobin, Arterial 0.3 % CERNER MILLENNIUM Na Whole Blood 134(L) mmol/L CERNE R MILLENNIUM K Whole Blood 4.2 mmol/L CERNER MILLENNIUM Comment: Please note: Patients with WBC >100,000 may have falsely elevated Potassium levels. Contact the Clinical Chemistry Laboratory if there are any questions. ICa Whole Blood 1.13(L) mmol/L CERN ER MILLENNIUM Comment: Reference Ranges: ?? < 19 yrs: 1.22 - 1.37 mmol/L ? Adults: 1.15 - 1.33 mmol/L Note: ??Total bilirubin higher than 20 mg/dL may lead to falsely low ionized calcium. CL Whole Blood 101 mmol/L CERNE R MILLENNIUM Gluc Whole Bld 227(H) mg/dL CERNE R MILLENNIUM Comment:Diabetes: >=200 mg/d L plus symptoms. Blood specimen (specimen) 05/11/2013 11:25 AM EDT 05/11/2013 11:25 AM EDT John Hills MD POINT OF CARE TEST O RDERABLES CERNER MILLENNIUM * (ABNORMAL) BLOOD GAS 2 ARTERIAL (05/11/2013 11:05 AM EDT) pH, Arterial 7.34(L) CERNER MILLENNIUM PCO2, Arterial 41 mmHg CERNE R MILLENNIUM PO2, Arterial 120(H) mmHg CERNER MILLENNIUM Bicarbonate, Arterial 21.6 mmol/L CERNER MILLENNIUM Base Excess, Arterial -4.1(L) mmol/L CERNER MILLENNIUM Hgb Blood Gas 13.5(L) gm/dL CERNER MILLENNIUM Comment: Total Hemoglobin (in gm/dL) ?Based on [facility] [place] ranges: ?Age ?Reference Range Less than 3 days ?14.5 to 22.5 3 days to 2 weeks ? 12.5 to 20.5 2 weeks to 1 month ?10.0 to 18.0 1 to 6 months ?9.4 to 14.0 6 months to 2 years ? 10.5 to 13.5 2 to 6 years ?11.5 to 13.5 6 to 12 years ? 11.5 to 15.5 12 to 18 years (female) 12.0 to 16.0 ? (male) ?? 13.0 to 16.0 > 18 years ? (female) 11.2 to 15.7 ? (male) ?? 13.7 to 17.5 Oxyhemoglobin, Arterial 96.0 % CERNER MILLENNIUM Carboxyhemoglob in, Arterial 1.9 % CERNER MILLENNIUM Comment: Nonsmokers: 0.5-1.5% COHB Smokers: Variable, but usually less than 10% Toxic: 20-30% COHB Lethal: Greater than 60% COHB Methemoglobin, Arterial 0.3 % CERNER MILLENNIUM Na Whole Blood 133(L) mmol/L CERNE R MILLENNIUM K Whole Blood 4.6 mmol/L CERNER MILLENNIUM Comment: Please note: Patients with WBC >100,000 may have falsely elevated Potassium levels. Contact the Clinical Chemistry Laboratory if there are any questions. ICa Whole Blood 1.15(L) mmol/L CERN ER MILLENNIUM Comment: Reference Ranges: ?? < 19 yrs: 1.22 - 1.37 mmol/L ? Adults: 1.15 - 1.33 mmol/L Note: ??Total bilirubin higher than 20 mg/dL may lead to falsely low ionized calcium. CL Whole Blood 101 mmol/L CERNE R MILLENNIUM Gluc Whole Bld 206(H) mg/dL CERNE R MILLENNIUM Comment:Diabetes: >=200 mg/d L plus symptoms. Blood specimen (specimen) 05/11/2013 11:05 AM EDT 05/11/2013 11:05 AM EDT John Hills MD POINT OF CARE TEST O RDERABLES CERNER MILLENNIUM * (ABNORMAL) BLOOD GAS 2 ARTERIAL (05/11/2013 10:03 AM EDT) pH, Arterial 7.31(L) CERNER MILLENNIUM PCO2, Arterial 44 mmHg CERNE R MILLENNIUM PO2, Arterial 97 mmHg CERNER MILLENNIUM Bicarbonate, Arterial 21.7 mmol/L CERNER MILLENNIUM Base Excess, Arterial -4.7(L) mmol/L CERNER MILLENNIUM Hgb Blood Gas 13.7(L) gm/dL CERNER MILLENNIUM Comment: Total Hemoglobin (in gm/dL) ?Based on [facility] [place] ranges: ?Age ?Reference Range Less than 3 days ?14.5 to 22.5 3 days to 2 weeks ? 12.5 to 20.5 2 weeks to 1 month ?10.0 to 18.0 1 to 6 months ?9.4 to 14.0 6 months to 2 years ? 10.5 to 13.5 2 to 6 years ?11.5 to 13.5 6 to 12 years ? 11.5 to 15.5 12 to 18 years (female) 12.0 to 16.0 ? (male) ?? 13.0 to 16.0 > 18 years ? (female) 11.2 to 15.7 ? (male) ?? 13.7 to 17.5 Oxyhemoglobin, Arterial 94.7 % CERNER MILLENNIUM Carboxyhemoglob in, Arterial 1.8 % CERNER MILLENNIUM Comment: Nonsmokers: 0.5-1.5% COHB Smokers: Variable, but usually less than 10% Toxic: 20-30% COHB Lethal: Greater than 60% COHB Methemoglobin, Arterial 0.4 % CERNER MILLENNIUM Na Whole Blood 133(L) mmol/L CERNE R MILLENNIUM K Whole Blood 5.1(H) mmol/L CERNER MILLENNIUM Comment: Please note: Patients with WBC >100,000 may have falsely elevated Potassium levels. Contact the Clinical Chemistry Laboratory if there are any questions. ICa Whole Blood 1.09(L) mmol/L CERN ER MILLENNIUM Comment: Reference Ranges: ?? < 19 yrs: 1.22 - 1.37 mmol/L ? Adults: 1.15 - 1.33 mmol/L Note: ??Total bilirubin higher than 20 mg/dL may lead to falsely low ionized calcium. CL Whole Blood 102 mmol/L CERNE R MILLENNIUM Gluc Whole Bld 170 mg/dL CERNE R MILLENNIUM Comment:Diabetes: >=200 mg/d L plus symptoms. Blood specimen (specimen) 05/11/2013 10:03 AM EDT 05/11/2013 10:03 AM EDT John Hills MD POINT OF CARE TEST O RDERABLES CERNER MILLENNIUM * (ABNORMAL) BLOOD GAS 2 ARTERIAL (05/11/2013 8:53 AM EDT) pH, Arterial 7.38 CERNER MILLENNIUM PCO2, Arterial 42 mmHg CERNE R MILLENNIUM PO2, Arterial 145(H) mmHg CERNER MILLENNIUM Bicarbonate, Arterial 24.5 mmol/L CERNER MILLENNIUM Base Excess, Arterial -0.5 mmol/L CERNER MILLENNIUM Hgb Blood Gas 12.9(L) gm/dL CERNER MILLENNIUM Comment: Total Hemoglobin (in gm/dL) ?Based on [facility] [place] ranges: ?Age ?Reference Range Less than 3 days ?14.5 to 22.5 3 days to 2 weeks ? 12.5 to 20.5 2 weeks to 1 month ?10.0 to 18.0 1 to 6 months ?9.4 to 14.0 6 months to 2 years ? 10.5 to 13.5 2 to 6 years ?11.5 to 13.5 6 to 12 years ? 11.5 to 15.5 12 to 18 years (female) 12.0 to 16.0 ? (male) ?? 13.0 to 16.0 > 18 years ? (female) 11.2 to 15.7 ? (male) ?? 13.7 to 17.5 Oxyhemoglobin, Arterial 97.1(H) % CERNER MILLENNIUM Carboxyhemoglob in, Arterial 1.6 % CERNER MILLENNIUM Comment: Nonsmokers: 0.5-1.5% COHB Smokers: Variable, but usually less than 10% Toxic: 20-30% COHB Lethal: Greater than 60% COHB Methemoglobin, Arterial 0.2 % CERNER MILLENNIUM Na Whole Blood 133(L) mmol/L CERNE R MILLENNIUM K Whole Blood 4.1 mmol/L CERNER MILLENNIUM Comment: Please note: Patients with WBC >100,000 may have falsely elevated Potassium levels. Contact the Clinical Chemistry Laboratory if there are any questions. ICa Whole Blood 1.12(L) mmol/L CERN ER MILLENNIUM Comment: Reference Ranges: ?? < 19 yrs: 1.22 - 1.37 mmol/L ? Adults: 1.15 - 1.33 mmol/L Note: ??Total bilirubin higher than 20 mg/dL may lead to falsely low ionized calcium. CL Whole Blood 102 mmol/L CERNE R MILLENNIUM Gluc Whole Bld 155 mg/dL CERNE R MILLENNIUM Comment:Diabetes: >=200 mg/d L plus symptoms. Blood specimen (specimen) 05/11/2013 8:53 AM EDT 05/11/2013 8:53 AM EDT John Hills MD POINT OF CARE TEST O ZACH Performing Organization Address City/[facility] Co de Phone Number ROBERTA SANTIAGO * POCT Glucose (05/11/2013 6:15 AM EDT) Glucose, POC 183 60 - 199 mg/dL ROBERTA ERIBERTOSAN [facility] Comment: Supplemental ranges: <110 mg/dL before meals <200 mg/dL all other times of the day Blood specimen (specimen) 05/11/2013 6:15 AM EDT 05/11/2013 6:15 AM EDT John Hills MD POINT OF CARE TEST Shala SERRANO Performing Organization Address [facility] Co de Phone Number ROBERTA SANTIAGO documented in this encounter Visit Diagnoses Diagnosis Rectal cancer- Primary Malignant neoplasm of rectum Diabetes mellitus Type II or unspecified type diabetes mellitus without mention of complication, not stated as uncontrolled Rectal cancer Malignant neoplasm of rectum Blood clot in vein Embolism and thrombosis of unspecified site Diabetes mellitus Type II or unspecified type diabetes mellitus without mention of complication, not stated as uncontrolled Obesity (BMI 35.0-39.9 without comorbidity) Obesity, unspecified Hypertension Unspecified essential hypertension documented in this encounter Administered Medications Inactive Administered Medications - up to 3 most recent administrations Medication Order MAR Action Action Date Dose Rate Site acetaminophen (TYLENOL) tablet 1,000 mg 1,000 mg, Oral, ONCE, 1 dose, On Thu05/11/13 at 0630, Maximum dose of acetaminophen is 4000 mg from all sources in 24 hours., Day of Surgery (Day of Procedure), Routine Given 05/11/2013 6:30 AM EDT 1,000 mg acetaminophen (TYLENOL) tablet 975 mg 975 mg, Oral, EVERY 6 HOURS, First dose on Thu05/11/13 at 2200, Until Discontinued, Do not exceed 4,000 mg in 24 hours., Routine Given 05/18/2013 10:40 AM EDT 975 mg Given 05/18/2013 4:00 AM EDT 975 mg Given 05/17/2013 10:00 PM EDT 975 mg atorvastatin (LIPITOR) tablet 20 mg 20 mg, Oral, EVERY EVENING, First dose on e 05/17/13 at 1700, Until Discontinued, Routine Given 05/17/2013 4:45 PM EDT 20 mg bacitracin ointment Topical, 2 TIMES DAILY, First dose on Radha 05/12/13 at 2100, Until Discontinued, Apply to perineum incision bid Given 05/17/2013 9:00 PM EDT Given 05/17/2013 9:02 AM EDT Given 05/16/2013 9:00 PM EDT bisacodyl (DULCOLAX) suppository 10 mg 10 mg, Rectal, ONCE, 1 dose, On Thu05/13/13 at 1000, PER COLOSTOMY not rectum (has no rectum), Routine Given 05/13/2013 10:00 AM EDT 10 mg celecoxib (celeBREX) capsule 400 mg 400 mg, Oral, ONCE, 1 dose, On Thu05/11/13 at 0630, Day of Surgery (Day of Procedure), Routine Given 05/11/2013 6:30 AM EDT 400 mg dextrose 5% and sodium chloride 0.45% with potassium chloride 20 mEq infusion 50 mL/hr, Intravenous, CONTINUOUS, Starting on Radha 05/12/13 at 0815, Until 05/14/13 at 0815 New Bag 05/13/2013 9:42 PM EDT 50 mL/hr 50 mL/hr Rate/Dose Verify 05/13/2013 12:00 PM EDT 50 mL/hr 50 mL/ hr Rate/Dose Verify 05/13/2013 8:00 AM EDT 50 mL/hr 50 mL/h r dextrose 5% and sodium chloride 0.45% with potassium chloride 20 mEq infusion 50 mL/hr, Intravenous, CONTINUOUS, Starting on 05/15/13 at 0645, Until 05/16/13 at 0759 New Bag 05/15/2013 4:07 PM EDT 50 mL/hr 50 mL /hr New Bag 05/15/2013 6:45 AM EDT 50 mL/hr 50 mL/hr enoxaparin (LOVENOX) injection 120 mg 120 mg, Subcutaneous, at 1 mL/hr, ONCE, 1 dose, On Thu05/16/13 at 1015, Routine Given 05/16/2013 10:28 AM EDT 120 mg 1 mL/hr enoxaparin (LOVENOX) injection 150 mg 150 mg, Subcutaneous, EVERY 24 HOURS SCHEDULED (Daily), First dose (after last modification) on Thu05/17/13 at 0900, Until Discontinued, Routine Given 05/18/2013 9:00 AM EDT 150 mg Abdominal Tissue Given 05/17/2013 9:03 AM EDT 150 mg enoxaparin (LOVENOX) injection 30 mg 30 mg, Subcutaneous, EVERY 12 HOURS SCHEDULED (2 times per day), First dose (after last modification) on Thu05/14/13 at 0900, Until Discontinued, Routine Given 05/16/2013 8:04 AM EDT 30 mg Given 05/15/2013 8:44 PM EDT 30 mg Given 05/15/2013 9:30 AM EDT 30 mg enoxaparin (LOVENOX) injection 40 mg 40 mg, Subcutaneous, DAILY, First dose on Radha 05/12/13 at 0900, Until Discontinued, Routine Given 05/13/2013 9:00 AM EDT 40 mg Given 05/12/2013 9:00 AM EDT 40 mg fentaNYL 50mcg/mL injection 25-50 mcg, Intravenous, EVERY 5 MIN PRN, Starting on Thu05/11/13 at 2231, Until Radha 05/12/13 at 0030, Pain, for breakthrough pain, Hold for respiratory rate less than 10 per minute. Maximum dose: 250 mcg over one hour., PACU Recovery, Routine Given 05/11/2013 11:30 PM EDT 25 mcg Given 05/11/2013 11:15 PM EDT 25 mcg Given 05/11/2013 11:06 PM EDT 50 mcg gabapentin (NEURONTIN) capsule 600 mg 600 mg, Oral, ONCE, 1 dose, On Thu05/11/13 at 0630, Day of Surgery (Day of Procedure), Routine Given 05/11/2013 6:30 AM EDT 600 mg glipiZIDE (GLUCOTROL) tablet 5 mg 5 mg, Oral, EVERY MORNING BEFORE BREAKFAST, First dose on Thu05/17/13 at 1300, Until Discontinued, Please give with lunch today Hold if Not eating meal or if BG is less than 80 mg/dL, Routine Given 05/18/2013 7:30 AM EDT 5 mg Given 05/17/2013 1:30 PM EDT 5 mg heparin (porcine) 5,000 unit/0.5 mL subcutaneous injection 1 dose, Starting on Thu05/11/13 at 0644, Until Thu05/11/13 at 0645, DARIEN MULLER: cabinet override heparin (porcine) subcutaneous injection 5,000 Units 5,000 Units, Subcutaneous, ONCE, 1 dose, On Thu05/11/13 at 0630, Day of Surgery (Day of Procedure), Routine Given 05/11/2013 6:45 AM EDT 5,000 Units heparin (porcine) subcutaneous injection 5,000 Units 5,000 Units, Subcutaneous, ONCE, 1 dose, On Thu05/12/13 at 0115, Routine Given 05/12/2013 1:25 AM EDT 5,000 Units HYDROmorphone (DILAUDID) 1 mg/mL ANIMAL HUSBANDRY TECHNICIAN 30 mL Intravenous, ANIMAL HUSBANDRY TECHNICIAN ONLY, Starting on Thu05/11/13 at 2200, Until Thu05/12/13 at 0904 New Syringe/Cartridge 05/11/2013 10:30 PM EDT HYDROmorphone (DILAUDID) 1 mg/mL ANIMAL HUSBANDRY TECHNICIAN 30 mL Intravenous, ANIMAL HUSBANDRY TECHNICIAN ONLY, Starting on Thu05/12/13 at 0930, Until Thu05/13/13 at 0923 New Syringe/Cartridge 05/13/2013 8:57 AM EDT Rate/Dose Change 05/12/2013 9:30 AM EDT 0.2 mg/hr 0.2 mL/ hr HYDROmorphone (DILAUDID) 1 mg/mL ANIMAL HUSBANDRY TECHNICIAN 30 mL Intravenous, ANIMAL HUSBANDRY TECHNICIAN ONLY, Starting on Thu05/13/13 at 0945, Until Thu05/14/13 at 0815 Rate/Dose Change 05/13/2013 9:45 AM EDT HYDROmorphone (DILAUDID) injection 0.2-0.4 mg 0.2-0.4 mg, Intravenous, EVERY 5 MIN PRN, Starting on Thu05/11/13 at 2231, Until Thu05/12/13 at 0030, Pain, For moderate pain give: 0.2 mg every 5 minute prn For severe pain give: 0.4 mg every 5 minutes prn Maximum dose: 4 mg per hour Hold for respiratory rate less than 10 per minute., PACU Recovery, Routine Given 05/11/2013 11:53 PM EDT 0.4 mg Given 05/11/2013 11:45 PM EDT 0.4 mg HYDROmorphone (DILAUDID) injection 0.2-0.4 mg 0.2-0.4 mg, Intravenous, EVERY 2 HOURS PRN, Starting on 05/14/13 at 1250, Until 05/16/13 at 0810, Pain, Routine Given 05/15/2013 1:24 PM EDT 0.4 mg Given 05/14/2013 4:39 PM EDT 0.4 mg Given 05/14/2013 1:08 PM EDT 0.4 mg ibuprofen (ADVIL;MOTRIN) tablet 600 mg 600 mg, Oral, EVERY 6 HOURS, First dose on 05/14/13 at 0830, Until Discontinued, Maximum dose of 3200 mg from all sources in 24 hours, Routine Given 05/18/2013 2:42 PM EDT 600 mg Given 05/18/2013 10:40 AM EDT 600 mg Given 05/18/2013 2:30 AM EDT 600 mg insulin aspart (NOVOLOG) PEN injection 0-6 Units 0-6 Units, Subcutaneous, 3 TIMES DAILY WITH MEALS, First dose on Radha 05/12/13 at 1700, Until Discontinued, MEAL ASSOCIATED Give 1 unit for every 10 grams carbohydrate. Use 2 units for one complete Glucose controlled Boost shake and 1 unit for half a shake Hold if not eating, Routine Given 05/12/2013 5:00 PM EDT 2 Units insulin aspart (NOVOLOG) PEN injection 0-8 Units 0-8 Units, Subcutaneous, 3 TIMES DAILY WITH MEALS, First dose on Thu05/13/13 at 1200, Until Discontinued, MEAL ASSOCIATED Give 1 unit for every 8 grams carbohydrate. Hold if not eating, Routine Given 05/17/2013 8:45 AM EDT 6 Units Given 05/16/2013 12:47 PM EDT 5 Units L eft Arm Given 05/14/2013 5:00 PM EDT 5 Units insulin aspart (NOVOLOG) PEN injection 1-4 Units 1-4 Units, Subcutaneous, 4 TIMES DAILY BEFORE MEALS & NIGHTLY, First dose on Thu05/11/13 at 2200, Until Discontinued, CORRECTION BOLUS Sensitive to insulin lean patient or total daily dose of all insulin needed to achieve glycemic control less than 30 units BG 140 - 160 Give 1 unit BG 161 - 200 Give 2 units BG 201 - 240 Give 3 units BG greater than 240, give 4 units and recheck BG in 2 hours. If BG remains greater than 240, repeat 4 units (no more than three times) & call for new basal insulin orders. If less than 240 after two hours, give no insulin and resume prior schedule. , Routine Given 05/12/2013 7:30 AM EDT 2 Units Given 05/11/2013 10:00 PM EDT 2 Units insulin aspart (NOVOLOG) PEN injection 1-8 Units 1-8 Units, Subcutaneous, EVERY 4 HOURS SCHEDULED, First dose on Thu05/12/13 at 1215, Until Discontinued, CORRECTION BOLUS Custom doses BG 140 - 160 Give 1 units BG 161 - 180 Give 2 units BG 181 - 200 Give 3 units BG 201 - 220 Give 4 units BG 221 - 240 Give 6 units BG greater than 240, give 8 units and recheck BG in 2 hours. If BG remains greater than 240, repeat 8 units (no more than three times) & call for new basal insulin orders. If less than 240 after two hours, give no insulin and resume prior schedule., Routine Given 05/13/2013 4:13 AM EDT 2 Units Given 05/13/2013 12:27 AM EDT 4 Units Given 05/12/2013 8:00 PM EDT 3 Units insulin aspart (NOVOLOG) PEN injection 1-8 Units 1-8 Units, Subcutaneous, EVERY 4 HOURS SCHEDULED, First dose on Thu05/13/13 at 1200, Until Discontinued, CORRECTION BOLUS Custom doses BG 140 - 160 Give 1 units BG 161 - 180 Give 2 units BG 181 - 200 Give 3 units BG 201 - 220 Give 4 units BG 221 - 240 Give 6 units BG greater than 240, give 8 units and recheck BG in 2 hours. If BG remains greater than 240, repeat 8 units (no more than three times) & call for new basal insulin orders. If less than 240 after two hours, give no insulin and resume prior schedule., Routine Given 05/14/2013 9:20 PM EDT 1 Units Given 05/14/2013 5:22 PM EDT 3 Units Given 05/14/2013 12:57 PM EDT 1 Units insulin aspart (NOVOLOG) PEN injection 1-8 Units 1-8 Units, Subcutaneous, EVERY 4 HOURS SCHEDULED, First dose (after last modification) on Thu05/15/13 at 0800, Until Discontinued, CORRECTION BOLUS Custom doses BG 140 - 160 Give 1 units BG 161 - 180 Give 2 units BG 181 - 200 Give 3 units BG 201 - 220 Give 4 units BG 221 - 240 Give 6 units BG greater than 240, give 8 units and recheck BG in 2 hours. If BG remains greater than 240, repeat 8 units (no more than three times) & call for new basal insulin orders. If less than 240 after two hours, give no insulin and resume prior schedule., Routine Given 05/18/2013 1:00 PM EDT 1 Units Given 05/18/2013 8:00 AM EDT 1 Units Le ft Arm Given 05/18/2013 4:00 AM EDT 1 Units insulin glargine (LANTUS) PEN injection 12 Units 12 Units, Subcutaneous, DAILY, First dose (after last modification) on Thu05/12/13 at 1230, Until Discontinued, Routine Given 05/12/2013 12:30 PM EDT 12 Uni ts insulin glargine (LANTUS) PEN injection 15 Units 15 Units, Subcutaneous, DAILY, First dose (after last modification) on Thu05/18/13 at 1000, Until Discontinued, Routine Given 05/18/2013 10:40 AM EDT 15 Uni ts insulin glargine (LANTUS) PEN injection 18 Units 18 Units, Subcutaneous, DAILY, First dose on Thu05/13/13 at 1200, Until Discontinued, Routine Given 05/17/2013 12:09 PM EDT 18 Units Given 05/16/2013 12:45 PM EDT 18 Units Given 05/15/2013 12:00 PM EDT 18 Units ketorolac (TORADOL) injection 30 mg 30 mg, Intravenous, EVERY 6 HOURS SCHEDULED, 8 doses, First dose (after last modification) on Thu05/12/13 at 0815, Last dose on Thu05/14/13 at 0000, Routine Given 05/14/2013 12:00 AM EDT 30 mg Given 05/13/2013 6:00 PM EDT 30 mg Given 05/13/2013 12:00 PM EDT 30 mg lactated ringers infusion 1,000 mL 1,000 mL, at 100 mL/hr, Intravenous, CONTINUOUS, Starting on Thu05/11/13 at 0630, Until Thu05/12/13 at 0056, Day of Surgery (Day of Procedure) New Bag 05/11/2013 9:52 AM EDT mL New Bag 05/11/2013 7:39 AM EDT mL New Bag 05/11/2013 6:30 AM EDT 1,000 mLs 100 mL/hr lactated ringers infusion 125 mL/hr, Intravenous, CONTINUOUS, Starting on Thu05/11/13 at 2200, Until Thu05/12/13 at 0719 New Bag 05/12/2013 6:35 AM EDT 125 mL/hr 125 mL/hr New Bag 05/11/2013 10:30 PM EDT 125 mL/hr 125 mL/hr levofloxacin in D5W (LEVAQUIN) 750 mg/150 mL 750 mg 750 mg, Intravenous, Administer over 90 Minutes, EVERY 24 HOURS SCHEDULED (Daily), First dose on Thu05/11/13 at 0900, Until Discontinued, Routine, Indication for (Active or Suspected): Prophylaxis, Restricted Antibiotic: Please indicate the most appropriate choice: Pre-approved Indication (State the indication in Comments field) Given 05/12/2013 9:00 AM EDT 750 mg Given 05/11/2013 8:10 AM EDT 750 mg lidocaine (LIDODERM) 5 %(700 mg/patch) patch 3 patch 3 patch, Transdermal, DAILY, First dose on Thu05/13/13 at 1000, Until Discontinued, Apply patch(es) for 12 hours, and then remove for 12 hours, Routine Given 05/16/2013 8:05 AM EDT 3 patches Given 05/15/2013 9:30 AM EDT 3 patches Given 05/14/2013 8:59 AM EDT 3 patches lidocaine (LIDODERM) patch REMOVAL Transdermal, NIGHTLY, First dose on Thu05/13/13 at 2100, Until Discontinued, Remove Lidocaine Patch Given 05/17/2013 9:00 PM EDT 1 patch Given 05/16/2013 9:00 PM EDT 1 patch Given 05/14/2013 9:00 PM EDT 1 patch lisinopril (PRINIVIL;ZESTRIL) tablet 10 mg 10 mg, Oral, DAILY, First dose on Thu05/17/13 at 0900, Until Discontinued, Routine Given 05/18/2013 10:40 AM EDT 10 mg Given 05/17/2013 9:00 AM EDT 10 mg magnesium hydroxide (MILK OF MAGNESIA) oral suspension 20 mL 20 mL, Oral, ONCE, 1 dose, On Thu05/12/13 at 0815, 10 mL concentrate = 30 mL regular, Routine Given 05/12/2013 8:15 AM EDT 20 mLs magnesium hydroxide (MILK OF MAGNESIA) oral suspension 20 mL 20 mL, Oral, ONCE, 1 dose, On Thu05/13/13 at 0900, 10 mL concentrate = 30 mL regular, Routine Given 05/13/2013 9:00 AM EDT 20 mLs metoclopramide (REGLAN) injection 10 mg 10 mg, Intravenous, ONCE, 1 dose, On Thu05/17/13 at 0815, Doses greater than 10mg should be diluted into 50ml NS. Given 05/17/2013 8:45 AM EDT 10 mg metoclopramide (REGLAN) tablet 5 mg 5 mg, Oral, 4 TIMES DAILY BEFORE MEALS & NIGHTLY, First dose on Thu05/17/13 at 1130, Until Discontinued, Routine Given 05/18/2013 11:07 AM EDT 5 mg Given 05/18/2013 7:30 AM EDT 5 mg Given 05/17/2013 9:00 PM EDT 5 mg metroNIDAZOLE (FLAGYL) 1000 mg in sodium chloride 0.9% 200 mL (2x100 mL bags) 1,000 mg, Intravenous, EVERY 8 HOURS, 3 doses, First dose on Thu05/11/13 at 2200, Last dose on Thu05/12/13 at 2000, Administer over 60 Minutes, Indication for (Active or Suspected): Prophylaxis Given 05/12/2013 10:09 PM EDT 1,000 mg Given 05/12/2013 12:00 PM EDT 1,000 mg Given 05/12/2013 4:30 AM EDT 1,000 mg ondansetron (ZOFRAN) 8 mg in sodium chloride 0.9% 50 mL 8 mg, Intravenous, EVERY 8 HOURS PRN, Starting on Thu05/12/13 at 1231, Until Thu05/18/13 at 1957, Administer over 15 Minutes, Nausea Given 05/17/2013 12:00 AM EDT 4 mg 200 mL/hr ondansetron (ZOFRAN) injection 4 mg 4 mg, Intravenous, EVERY 30 MIN PRN, 2 doses, Starting on Radha 05/12/13 at 0059, Until Radha 05/12/13 at 1100, Nausea, May repeat dose once in 30 minutes if no relief from previous dose. Given 05/12/2013 11:00 AM EDT 4 mg Given 05/12/2013 8:40 AM EDT 4 mg ondansetron (ZOFRAN) injection 4 mg 4 mg, Intravenous, EVERY 8 HOURS PRN, Starting on Radha 05/12/13 at 0059, Until Radha 05/12/13 at 1227, Nausea, May repeat times one in 30 minutes if ineffective Given 05/12/2013 12:00 PM EDT 4 mg ondansetron (ZOFRAN) injection 4 mg 4 mg, Intravenous, EVERY 8 HOURS PRN, Starting on Radha 05/12/13 at 1231, Until 05/18/13 at 1957, Nausea Given 05/16/2013 9:14 PM EDT 4 mg Given 05/15/2013 3:59 PM EDT 4 mg Given 05/15/2013 1:25 PM EDT 4 mg ondansetron (ZOFRAN) tablet 4 mg 4 mg, Oral, EVERY 8 HOURS PRN, Starting on Radha 05/12/13 at 0059, Until Radha 05/12/13 at 1227, Nausea, Vomiting, If multiple antiemetics are ordered, use ondansetron first. PO Preferred. If patient unable to take PO, may give IV if ordered. May repeat times one in 45 minutes if ineffective. , Routine Given 05/12/2013 8:50 AM EDT 4 mg OXYcodone (ROXICODONE) immediate release tablet 5 mg 5 mg, Oral, EVERY 4 HOURS PRN, Starting on Thu05/13/13 at 0837, Until 05/14/13 at 1250, offer to pt if pain not relieved with tylenol/toradol. Do not take on empty stomach, Routine Given 05/14/2013 9:00 AM EDT 5 mg OXYcodone (ROXICODONE) immediate release tablet 5-15 mg 5-15 mg, Oral, EVERY 4 HOURS PRN, Starting on 05/14/13 at 1249, Until Thu05/18/13 at 1957, offer to pt if pain not relieved with tylenol/toradol. Do not take on empty stomach, Routine Given 05/18/2013 2:42 PM EDT 15 mg Given 05/18/2013 6:26 AM EDT 15 mg Given 05/18/2013 2:13 AM EDT 15 mg sodium chloride 0.9 % flush 5 mL 5 mL, Intravenous, EVERY 12 HOURS, First dose on Thu05/11/13 at 0630, Until Discontinued, Day of Surgery (Day of Procedure) Given 05/11/2013 6:30 PM EDT 5 mLs traMADol (ULTRAM) tablet 50-100 mg 50-100 mg, Oral, EVERY 6 HOURS PRN, Starting on Thu05/13/13 at 0833, Until Thu05/18/13 at 1957, Pain, Routine Given 05/14/2013 11:38 AM EDT 100 mg documented in this encounter Active and Recently Administered Medications Times are shown in EDT. Scheduled Medication Order 05/16/2013 05/17/2013 05/18/2013 acetaminophen (TYLENOL) tablet 975 mg (CANCELED) 975 mg, Oral, EVERY 6 HOURS, First dose on Thu05/11/13 at 2200, Until Discontinued, Do not exceed 4,000 mg in 24 hours., Routine 0400 (Not Given - Provider: Theo Roca RN - Reason: Patient/family refused)0956 (Given - Provider: Lorie Rowe RN)1657 (Given - Provider: Mercy Marcum RN)2200 (Not Given - Provider: Tabitha Schafer RN - Reason: See comment - Comment: nausea) 0400 (Given - Provider: Tabitha Schafer RN)1028 (Given - Provider: Leti Mandujano RN)1645 (Given - Provider: Leti Mandujano RN)2200 (Given - Provider: Tabitha Schafer RN) 0400 (Given - Provider: Tabitha Schafer RN)1040 (Given - Provider: Leti Mandujano RN)1600 (Due) atorvastatin (LIPITOR) tablet 20 mg (CANCELED) 20 mg, Oral, EVERY EVENING, First dose on Thu05/17/13 at 1700, Until Discontinued, Routine 1645 (Given - Provider: Leti Mandujano RN) 1700 (Due) bacitracin ointment (CANCELED) Topical, 2 TIMES DAILY, First dose on Thu05/12/13 at 2100, Until Discontinued, Apply to perineum incision bid 0804 (Given - Provider: Mercy Marcum RN)2100 (Given - Provider: Tabitha Schafer RN) 0902 (Given - Provider: Leti Mandujano RN)2100 (Given - Provider: Tabitha Schafer RN) 0900 (Due) enoxaparin (LOVENOX) injection 120 mg (COMPLETED) 120 mg, Subcutaneous, at 1 mL/hr, ONCE, 1 dose, On Thu05/16/13 at 1015, Routine 1028 (Given - Provider: Lorie Rowe RN) enoxaparin (LOVENOX) injection 150 mg (CANCELED) 150 mg, Subcutaneous, EVERY 24 HOURS SCHEDULED (Daily), First dose (after last modification) on Thu05/17/13 at 0900, Until Discontinued, Routine 0903 (Given - Provider: Leti Mandujano RN) 0900 (Given - Provider: Sharad Bustillos) enoxaparin (LOVENOX) injection 30 mg (CANCELED) 30 mg, Subcutaneous, EVERY 12 HOURS SCHEDULED (2 times per day), First dose (after last modification) on Thu05/14/13 at 0900, Until Discontinued, Routine 0804 (Given - Provider: Mercy Marcum RN) glipiZIDE (GLUCOTROL) tablet 5 mg (CANCELED) 5 mg, Oral, EVERY MORNING BEFORE BREAKFAST, First dose on Thu05/17/13 at 1300, Until Discontinued, Please give with lunch today Hold if Not eating meal or if BG is less than 80 mg/dL, Routine 1330 (Given - Provider: Leti Mandujano RN) 0730 (Given - Provider: Tabitha Schafer RN) ibuprofen (ADVIL;MOTRIN) tablet 600 mg (CANCELED) 600 mg, Oral, EVERY 6 HOURS, First dose on Thu05/14/13 at 0830, Until Discontinued, Maximum dose of 3200 mg from all sources in 24 hours, Routine 0230 (Not Given - Provider: Theo Roca RN - Reason: Patient/family refused)0804 (Given - Provider: Mercy Marcum RN)1406 (Given - Provider: Miriam Jade RN)2030 (Not Given - Provider: Tabitha Schafer RN - Reason: Patient/family refused - Comment: with nausea) 0230 (Given - Provider: Tabitha Schafer RN)0845 (Given - Provider: Leti Mandujano RN)1505 (Given - Provider: Leti Mandujano RN)2030 (Given - Provider: Tabitha Schafer RN) 0230 (Given - Provider: Tabitha Schafer RN)1040 (Given - Provider: Leti Mandujano RN)1442 (Given - Provider: Leti Mandujano RN) insulin aspart (NOVOLOG) PEN injection 0-8 Units (CANCELED) 0-8 Units, Subcutaneous, 3 TIMES DAILY WITH MEALS, First dose on Thu05/13/13 at 1200, Until Discontinued, MEAL ASSOCIATED Give 1 unit for every 8 grams carbohydrate. Hold if not eating, Routine 0804 (Not Given - Provider: Mercy Marcum RN - Reason: Order parameters not met - Comment: sips and chips)1247 (Given - Provider: Miriam Jade RN)1700 (Not Given - Provider: Miriam Jade RN - Reason: Order parameters not met - Comment: less than 8gms consumed) 0845 (Given - Provider: Leti Mandujano RN) insulin aspart (NOVOLOG) PEN injection 1-8 Units (CANCELED) 1-8 Units, Subcutaneous, EVERY 4 HOURS SCHEDULED, First dose (after last modification) on Thu05/15/13 at 0800, Until Discontinued, CORRECTION BOLUS Custom doses BG 140 - 160 Give 1 units BG 161 - 180 Give 2 units BG 181 - 200 Give 3 units BG 201 - 220 Give 4 units BG 221 - 240 Give 6 units BG greater than 240, give 8 units and recheck BG in 2 hours. If BG remains greater than 240, repeat 8 units (no more than three times) & call for new basal insulin orders. If less than 240 after two hours, give no insulin and resume prior schedule., Routine 0411 (Given - Provider: Theo Roca RN)0805 (Given - Provider: Mercy Marcum RN)1247 (Given - Provider: Miriam Jade RN)1657 (Not Given - Provider: Mercy Macrum RN - Reason: Order parameters not met)2000 (Not Given - Provider: Tabitha Schafer RN - Reason: Order parameters not met) 0000 (Given - Provider: Tabitha Schafer RN)0400 (Not Given - Provider: Tabitha Schafer RN - Reason: Order parameters not met)0845 (Given - Provider: Leti Mandujano RN)1211 (Given - Provider: Leti Mandujano RN)1712 (Given - Provider: Leti Mandujano RN)2000 (Given - Provider: Tabitha Schafer RN) 0000 (Given - Provider: Tabitha Schafer RN)0400 (Given - Provider: Tabitha Schafer RN)0800 (Given - Provider: Sharad Bustillos)1300 (Given - Provider: Leti Mandujano RN)1600 (Due) insulin glargine (LANTUS) PEN injection 15 Units (CANCELED) 15 Units, Subcutaneous, DAILY, First dose (after last modification) on Thu05/18/13 at 1000, Until Discontinued, Routine 1040 (Given - Provider: Leti Mandujano RN) insulin glargine (LANTUS) PEN injection 18 Units (CANCELED) 18 Units, Subcutaneous, DAILY, First dose on Thu05/13/13 at 1200, Until Discontinued, Routine 1245 (Given - Provider: Miriam Jade RN) 1209 (Given - Provider: Leti Mandujano RN) lidocaine (LIDODERM) 5 %(700 mg/patch) patch 3 patch (CANCELED)(Linked Group 1) 3 patch, Transdermal, DAILY, First dose on Thu05/13/13 at 1000, Until Discontinued, Apply patch(es) for 12 hours, and then remove for 12 hours, Routine 0805 (Given - Provider: Mercy Marcum RN) 0900 (Not Given - Provider: Leti Mandujano RN - Reason: Patient/family refused) 0900 (Not Given - Provider: Leti Mandujano RN - Reason: Patient/family refused) lidocaine (LIDODERM) patch REMOVAL (CANCELED)(Linked Group 1) Transdermal, NIGHTLY, First dose on Thu05/13/13 at 2100, Until Discontinued, Remove Lidocaine Patch 2100 (Given - Provider: Tabitha Schafer RN) 2100 (Given - Provider: Tabitha Schafer RN) lisinopril (PRINIVIL;ZESTRIL) tablet 10 mg (CANCELED) 10 mg, Oral, DAILY, First dose on Thu05/17/13 at 0900, Until Discontinued, Routine 0900 (Given - Provider: Leti Mandujano RN) 1040 (Given - Provider: Leti Mandujano RN) metoclopramide (REGLAN) injection 10 mg (COMPLETED)(Linked Group 2) 10 mg, Intravenous, ONCE, 1 dose, On Thu05/17/13 at 0815, Doses greater than 10mg should be diluted into 50ml NS. 0845 (Given - Provider: Leti Mandujano RN) metoclopramide (REGLAN) tablet 5 mg(Linked Group 2) 5 mg, Oral, 4 TIMES DAILY BEFORE MEALS & NIGHTLY, First dose on Thu05/17/13 at 1130, Until Discontinued, Routine 1130 (Given - Provider: Leti Mandujano RN)1646 (Given - Provider: Leti Mandujano RN)2100 (Given - Provider: Tabitha Schafer RN) 0730 (Given - Provider: Tabitha Schafer RN)1107 (Given - Provider: Leti Mandujano RN)1630 (Due) PRN Medication Order 05/16/2013 05/17/2013 05/18/2013 ondansetron (ZOFRAN) 8 mg in sodium chloride 0.9% 50 mL (CANCELED)(Linked Group 3) 8 mg, Intravenous, EVERY 8 HOURS PRN, Starting on Radha 05/12/13 at 1231, Until Thu05/18/13 at 1957, Administer over 15 Minutes, Nausea 2114 (See Alternative - Provider: Tabitha Schafer RN) 0000 (Given - Provider: Tabitha Schafer RN) ondansetron (ZOFRAN) injection 4 mg (CANCELED)(Linked Group 3) 4 mg, Intravenous, EVERY 8 HOURS PRN, Starting on Radha 05/12/13 at 1231, Until Thu05/18/13 at 195, Nausea 2113 (Given - Provider: Tabitha Schafer RN) 0000 (See Alternative - Provider: Tabitha Schafer RN) OXYcodone (ROXICODONE) immediate release tablet 5-15 mg (CANCELED) 5-15 mg, Oral, EVERY 4 HOURS PRN, Starting on 05/14/13 at 1249, Until Thu05/18/13 at 195, offer to pt if pain not relieved with tylenol/toradol. Do not take on empty stomach, Routine 0806 (Given - Provider: Mercy Marcum RN)1406 (Given - Provider: Miriam Jade RN)1901 (Given - Provider: Mercy Marcum RN) 0412 (Given - Provider: Tabitha Schafer RN)0845 (Given - Provider: Leti Mandujano, GET)1505 (Given - Provider: Leti Mandujano, GET)2106 (Given - Provider: Tabitha Schafer RN) 0213 (Given - Provider: Tabitha Schafer RN)0626 (Given - Provider: Tabitha Schafer RN)1442 (Given - Provider: Sharad Bustillos) Linked Groups Order Group 1: lidocaine (LIDODERM) 5 %(700 mg/patch) patch 3 patch (CANCELED)Jump to med 3 patch, Transdermal, DAILY, First dose on Thu05/13/13 at 1000, Until Discontinued, Apply patch(es) for 12 hours, and then remove for 12 hours, Routine And lidocaine (LIDODERM) patch REMOVAL (CANCELED)Jump to med Transdermal, NIGHTLY, First dose on Thu05/13/13 at 2100, Until Discontinued, Remove Lidocaine Patch Group 2: metoclopramide (REGLAN) injection 10 mg (COMPLETED)Jump to med 10 mg, Intravenous, ONCE, 1 dose, On Thu05/17/13 at 0815, Doses greater than 10mg should be diluted into 50ml NS. And metoclopramide (REGLAN) tablet 5 mgJump to med 5 mg, Oral, 4 TIMES DAILY BEFORE MEALS & NIGHTLY, First dose on Thu05/17/13 at 1130, Until Discontinued, Routine Group 3: ondansetron (ZOFRAN) injection 4 mg (CANCELED)Jump to med 4 mg, Intravenous, EVERY 8 HOURS PRN, Starting on Radha 05/12/13 at 1231, Until Thu05/18/13 at 1957, Nausea Or ondansetron (ZOFRAN) 8 mg in sodium chloride 0.9% 50 mL (CANCELED)Jump to med 8 mg, Intravenous, EVERY 8 HOURS PRN, Starting on Thu05/12/13 at 1231, Until Thu05/18/13 at 1957, Administer over 15 Minutes, Nausea documented in this encounter Care Teams Auto Transmission Specialist Relationship Specialty Start Date End Date Randa Rosas APRN [address] [place] [address] PCP - General 12/29/12 04/16/22 documented as of this encounter
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
--- OUTSIDE RECORDS SUMMARY | 2024-11-18 17:01 | XMS_ITS | Encounter Summary ---
Author Organization [facility] Address [facility] [place] [address] Care Team Providers Care Associate Professor Of Physics Name Role Phone Randa Rosas ASSISTANT GOLF COACH Primary Care Provider [phone]- [phone] Reason for Visit * Reason Onset Date Comments Medication Refill 04/12/2013 Encounter Details Date Type Department Care Team (Late st Contact Info) Description 04/12/2013 Refill Hematology Oncology at [address] [phone] Deborah Adrian RN Rectal cancer (Primary Dx) Social History Tobacco [...] encounter Miscellaneous Notes * Telephone Encounter - Deborah Adrian RN - 04/12/2013 4:08 PM EDT Telephone call from patient requesting refill Rx for Percocet. He reports that he is experiencing pain in his rectum. He reports that he had two rectal exams and since then it is sore most of the time. He had difficulty sleeping last night. He is taking 1 tab every 3-4 hours for a total of 6-[address] Dobbs notified and new Rx for percocet mailed to patient's home address per patient request. Will go out in the mail tomorrow. documented in this encounter Plan of Treatment Not on file documented as of this encounter Visit Diagnoses Diagnosis Rectal cancer- Primary Malignant neoplasm of rectum documented in this encounter Care Teams Associate Professor Of Physics Relationship Specialty Start Date End Date Randa Rosas APRN [address] [place] [address] PCP - General 12/29/12 04/16/22 documented as of this encounter
--- OUTSIDE RECORDS SUMMARY | 2024-11-18 17:01 | XMS_ITS | Encounter Summary ---
Author Organization [facility] Address [facility] [place] [address] Care Team Providers Care Call Center Dispatcher Name Role Phone Randa Rosas APRN Primary Care Provider [phone]- [phone] Reason for Visit * Reason Comments Rectal Cancer Encounter Details Date Type Department Care Team (Late st Contact Info) Description 02/15/2013 2:30 PM EDT Follow-Up Hematology Oncology at [address] [phone] Nas Dobbs MD Rectal cancer (Primary Dx) Discharge Disposition: Home Social History Tobacco Use Types Packs/Day Years Used Date Smoking Tobacco: Former Cigarettes Q uit: 11/30/1996 Alcohol Use Standard Drinks/Week Comments Yes 0 (1 standard drink = 0.6 oz pur e alcohol) beer on weekends Sex and Gender Information Value Date Recorded Sex Assigned at Not on file Gender Identity Not on file Sexual Orientation Not on file documented as of this encounter Last Filed Vital Signs Vital Sign Reading Time Taken Comments Blood Pressure 128/78 02/15/2013 2:30 PM EDT Pulse 91 02/15/2013 2:30 PM EDT Temperature 36.7 ??C (98.1 ??F) 02/15/2013 2:30 PM ED T Respiratory Rate 16 02/15/2013 2:30 PM EDT Oxygen Saturation 98% 02/15/2013 2:30 PM EDT Inhaled Oxygen Concentration - - Weight 106.2 kg (234 lb 3.2 oz) 02/15/2013 2:30 PM EDT Height 169 cm (5' 6.54) 02/15/2013 2:30 PM EDT Body Mass Index 37.2 02/15/2013 2:30 PM EDT documented in this encounter Progress Notes * Nas Dobbs MD - 02/15/2013 2:49 PM EDT Diagnosis: Invasive adenocarcinoma of the rectum extending 10 cm into the rectal canal.Imagin01/10/13. Enhancing rectal mass, consistent with known rectal carcinoma, which extends from the anal verge to the rectosigmoid junction. This mass contacts the mesorectal fascia with possible involvement of the posterior prostate gland, making the lesion T3 or T4. 2. Multiple local/regional lymph nodes. Lymphatic involvement can not be excluded. Subjective: Reg is here today week five infusional 5-fluorouracil concurrent with his radiation therapy in thetreatment of his rectal cancer. His rectal soreness is about the same and he really thinks he is keeping it under control. 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 His bowels are little bit loose but thatis tolerable. 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 He noted he had some foot soreness towards the end of his shift yesterday we did check his feet but there is no skin problems. He thinks it is related to an old pair of boots he was wearing. His feet are feeling better now. Past medical history and social history are reviewed and unchanged from last week Review of Systems Constitutional: Negative for fever, chills, activity change, fatigue and unexpected weight change. HENT: Negative for sore throat, mouth sores and trouble swallowing. Eyes: Negative. Respiratory: Negative for cough, shortness of breath and wheezing. Cardiovascular: Negative for chest pain, palpitations and leg swelling. Gastrointestinal: Negative for nausea, vomiting,He has positive rectal pain and diarrhea,but no constipation and abdominal distention. Genitourinary: Negative for dysuria and difficulty urinating. [...] unlabored Chest Wall: No tenderness or deformity Heart: Regular rate and rhythm, S1, S2 normal, no murmur, rub or gallop Abdomen: Soft, non-tender, bowel sounds active all four quadrants, no masses, no organomegaly Extremities: Extremities normal, atraumatic, no cyanosis or edema Pulses: 2+ and symmetric Skin: Skin color, texture, turgor normal, no rashes or lesions Lymph nodes: Cervical, supraclavicular, and axillary nodes normal Neurologic: Normal Lab today Is fine with a completely normal CMP except for his glucose of 340 CBC shows white count of 6.9 hemoglobin 12.6 and a platelet count of 265. Assessment/Plan: Reg has a low rectal cancer. Clinically he is doing exceptionally well and not having any significant secondary effects from treatment. We'll go ahead with today's pump change. We'll see him back next week for another recheck with lab. He'll let us know if any issues or problems develop in the interim. documented in this encounter Procedure Notes * Provider, Scanning - 02/22/2013 2:43 PM EDTAssociated Order(s): SCAN DOC: LAB * Provider, Scanning - 02/15/2013 1:57 PM EDTAssociated Order(s): SCAN DOC: LAB documented in this encounter Plan of Treatment Not on file documented as of this encounter Procedures Procedure Name Priority Date/Time Associated Diagnosis Comments LAB SCAN 02/22/2013 2:43 PM EDT LAB SCAN 02/15/2013 1:57 PM EDT documented in this encounter Results * SCAN DOC: LAB (02/22/2013 2:43 PM EDT) Narrative 02/22/2013 2:43 PM EDT Procedure Note Provider, Scanning - 02/22/2013 2:43 PM EDT Scanning Provider MEDIA MGR SCAN EXT O RDR/RSLT * SCAN DOC: LAB (02/15/2013 1:57 PM EDT) Narrative 02/15/2013 1:57 PM EDT Procedure Note Provider, Scanning - 02/15/2013 1:57 PM EDT Scanning Provider MEDIA MGR SCAN EXT O RDR/RSLT documented in this encounter Visit Diagnoses Diagnosis Rectal cancer- Primary Malignant neoplasm of rectum documented in this encounter Care Teams Call Center Dispatcher Relationship Specialty Start Date End Date Randa Rosas APRN [address] [place] [address] PCP - General 12/29/12 04/16/22 documented as of this encounter
--- OUTSIDE RECORDS SUMMARY | 2024-11-18 17:01 | XMS_ITS | Encounter Summary ---
Author Organization [facility] Address [facility] [place] [address] Care Team Providers Care Cash Crop Farmer Name Role Phone Randa Rosas APRN Primary Care Provider [phone]- [phone] Reason for Referral * Surgical (Routine) - Closed Specialty Diagnoses / Procedures Referred By Contac t Referred To Contact Plastic Surgery Diagnoses Rectal cancer Bobby Hills MD [facility] [place] [address] Oscar Soto MD [facility] [place] [address] Referral ID Status Reason Start Date Expiration Date V isits Requested Visits Authorized [id number] Closed Consult, Test & Treat 03/24/2013 09/20/2013 1 1 Reason for Visit * Reason Comments Pre-op Exam Encounter Details Date Type Department Care Team (Late st Contact Info) Description 03/24/2013 3:30 PM EDT [place] [address] Bobby Hills MD Rectal cancer (Primary Dx); Diabetes mellitus; Obesity (BMI 35.0-39.9 without comorbidity) Discharge Disposition: Home Social History Tobacco Use [...] Sign Reading Time Taken Comments Blood Pressure 130/78 03/24/2013 3:35 PM EDT Pulse 92 03/24/2013 3:35 PM EDT Temperature 36.9 ??C (98.4 ??F) 03/24/2013 3:35 PM ED T Respiratory Rate 18 03/24/2013 3:35 PM EDT Oxygen Saturation 98% 03/24/2013 3:35 PM EDT Inhaled Oxygen Concentration - - Weight 107 kg (236 lb) 03/24/2013 3:35 PM EDT Height - - Body Mass Index 37.48 03/08/2013 3:16 PM EDT documented in this encounter Patient Instructions * Patient Instructions* Bobby Hills - 03/24/2013 4:22 PM EDT Pre-Operative Bowel Preparation Instructions for Colon & Rectal Surgery (NyckTyc-Bcfggh-[id number] version) Purchase at your pharmacy: Cleansing agents ?? 238 gram bottle of MiraLAX ?? 64 oz. Gatorade (no red or orange please) ?? 8 Dulcolax pills Antibiotics: ?? 8 neomycin pills ?? 4 tinidazole pills Anti-nausea pills: ?? 2 Kytril pills Carbohydrate loading or instestines: ?? 4 packets of energy Gel Day Before Surgery: ?? No solid foods, milk, or milk products allowed. ?? Drink only clear liquids for breakfast, lunch, and dinner. ?? Clear liquids allowed and should be pushed: water, Clear fruit juices (apple, grape, cranberry) Gatorade, Bouillon, Jell-O (no fruit), Flavored ices, Tea and black coffee (it is okay to add sugar) ?? This bowel prep will dehydrate you, so it is important to drink plenty of clear fluids in addition to the MiraLAX mix on the day of the prep. ?? 2pm - take a Kytril anti-nausea pill ?? 2pm - take 4 Dulcolax pills with a clear liquid of your choice ?? 4pm - mix the 238-gram bottle of MiraLAX in 64 oz. of Gatorade (chilled) ?? Shake the solution until the MiraLAX is dissolved ?? Drink an 8 oz. glass every 10-15 minutes until the solution is gone ?? You should complete drinking the prep within two hours (by 6pm) ?? You will begin to have bowel movements and may have a feeling of ???fullness?? which will pass.It is expected that you will have watery bowel movements. ?? 7pm - take 4 more Dulcolax pills, 4 neomycin pills ?? 11pm - take the last 4 neomycin pills, all 4 tinidazole pills, and 2 packets of energy gel with 400 cc of water Day of Surgery: ?? At 5:30am take 2 more packets of energy gel with 400 cc of water and 1 Kytril pill ?? Do not eat or drink anything else except your medications with a sip of water ?? Check in at Same Day Surgery (the best place to park for this is the parking garage) Medications: ?? Do Not Take any medications containing aspirin ([place], Anacin, Bufferin, baby aspirin, Dristan, etc.) for 10 days prior to your surgery. ?? Do Not Take medications for arthritis such as Motrin, Advil, Clinoril, Nuprin, etc. for 10 days prior to your surgery. ?? You may take Tylenol. ?? Continue to take any medications prescribed for high blood pressure or heart disease. ?? IF YOU TAKE COUMADIN or PLAVIX, CALL THIS OFFICE FOR INSTRUCTIONS If you have questions about your medications or the prep, please call the Same Day Program at before 5:00PM. After 5:00PM call and ask the door clamp operator to page the General Surgery Resident button grader. The same day surgery nurses will call you between 3:00pm and 6:00 pm the weekday before your surgery to confirm the time of your admission and to go over any further instructions CRS Enhanced Recovery Pathway Carbohydrate Loading Before Surgery Research has shown that eating complex-sugars before major surgery, similar to before running a marathon, can protect your body from some of the stressful effects of surgery. The night before surgery, just before bedtime, please eat two packets of Gu (a maltodextrin-sugar containing energy supplement gel), followed by 400 mL's (12 ounces) or water. The morning of surgery, no later than 5:30AM (if you are scheduled for surgery at 7:30am), please eat two two more packets of Gu, again followed by 400 mL's of water. Please be aware that if you drink this later than 5:30AM your surgery may be delayed or canceled. If your surgery is scheduled for later in the day ask Dr. Hills or Ksenia Roca when to drink the sugar water (must be 2 1/2 hours before anesthesia start time). Gu can be obtained from most bicycle shops, [employer] stores, or sporting [employer] stores, as well as online ([employer]) or at the following stores, none of which we have any affiliation with: [employer], [address] [place], [address] [employer], [address] [place], [address] [place] [place] [employer], [place], [address] [employer] [place], [facility] [address], [place] [address] [employer], [address] [place], [address] [employer], [facility] [place], [address] [employer], [address] [place], [address] [employer], [address], [place] [address] [employer], [address] [facility], [place] [address] [employer] [place] [employer], [address], [place], [address] [employer], [address] [place], [address] [place] [employer], [address], [place], [address] [place] [employer], [address] [place] [address] [employer], [address], [place] [address] [employer], [address] [place], [address] [employer], [address] [facility], [place], [address] Pain Plan: 1. The morning of surgery pills:Tylenol, Celebrex, and Gabapentin. 2. The morning of surgery patient meets Anesthiology Team and discuss nerve blocks and/or spinal anesthesia. 3. Numbing medicine is used routinely during surgery. 4. Depending on the size of incision and other factors expect a combination of abdominal nerve block, spinal anesthesia, a pain button, scheduled non-narcotic pain pills, and narcotic pills. 5. Avoid/limit narcotics if able because: 1. Narcotics slow down the bowels. 2. Narcotics cause nausea; request anti-nausea medicine early if needed. 3. If taking oral narcotics then stool softener. Activity 1. Incentive Spirometry breathing exercice 10 times per hour while awake. 2. Use pillow to brace abdomen when coughing. 3. Out of bed as early as possible, ideally the night of surgery. 4. Out of bed in the chair or walking around the hospital as possible. Beds are best for sleeping only. 5. Urinary catheter may be removed morning after surygery if getting out of bed. 6. If not out of bed in the first 24 hours then routine Physical Therapy evaluation. 7. Walk around the unit at least 4 times daily. 8. Remove squeezers and stop Lovenox/subcutaneous heparin when walking >4 times per day. Diet 1. In general patient may receive clear liquids including Boost Breeze as soon as awake in the recovery room. 2. Chew gum to keep bowels awake. 3. In general patient may receive low residue diet the morning after surgery. 4. Listen to your body: if belching, bloated, nauseated, or uncomfortable then limit oral intake of food and liquid. Roughly 15-20% of patients bowels go to sleep. 5. In general limit intake of high-fiber food for 4 weeks (soft fruits, bananas OK) otherwise no food restrictions. 6. Chew food thoroughly, smaller portions more often, take with plenty of liquid. Avoid dehydrationand constipation. Reducing Your Risk of Surgical Infection The possibility of infection is a risk with any surgery. Your surgical team takes precautions to reduce this risk for you at the time of surgery. However, you can play an important role in reducing risk of infection before and after surgery by following these instructions. Chlorhexidine Presurgical Scrub Your surgical team will describe where to focus use of the antibacterial soap on your body. (Do notapply above the level of your neck.) Using the soap twice on the surgical incision site has a cumulative effect to reduce the number of bacteria living on your skin for many hours after it has been used. Using Chlorhexidine Read these instructions before you enter the shower. If you typically wash your hair once a day, decide if you will wash your hair the night before or the morning of your surgery. It is not necessaryto wash your hair with each shower, unless that is your routine. The night before your surgery: ?? In the shower, wash your hair with your regular shampoo. Rinse your hair and body thoroughly to remove any shampoo residue. ?? Wash your face with your usual soap. ?? Using clean washcloth to apply the chlorhexidine soap, focusing on the incision area(s). ?? Step out of the shower spray or turn off the water. This is to give the soap time to activate. Gently wash the area where your incision will be located for 5 minutes. ?? Turn the water back on and rinse well. ?? Do not wash with your regular soap after applying the chlorhexidine soap. ?? Gently packed your skin dry. ?? Do not apply any lotions, deodorants, powders or perfumes to the areas you have washed with the chlorhexidine soap. The morning of your surgery: ?? Shower again using the chlorhexidine soap in the same way described above. A practicing good hand hygiene Good hand hygiene, which involves cleansing and sanitizing your hands, is one of the most importantly ways to reduce to spread of infection. It is especially important to cleanse your hands: ?? After using the bathroom ?? After blowing her nose ?? After having any contact with respiratory secretions or surgical wound drainage ?? Before eating and after ?? Whenever you have touched and equipment or return to room from a walk Do not hesitate to ask any of your visitors were caregivers if they have wash their hands before visiting or caring for you. documented in this encounter Progress Notes * Nevaeh Martins - 03/24/2013 5:43 PM EDT Met with patient and his s.o.Charlette today with Dr. Hills. Patient has completed his chemo and radiation 4 weeks ago to treat his rectal cancer and now has another 4 weeks prior to surgery. As Dr. Hills was speaking to them, patient was very calm, but Charlette was very upset, crying and pacing. Later she told me that she was an FLOOR SUPERVISOR for 27 years and had cared for patients in a care home who had a colostomy. She and patient have been together for 6 years, she has no children, but patient has 3 children and several grandchildren. 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 I suggested that he wear overalls. He is not tall, but has a very la rge abdomen, and long torso, and appears to be short from umbilicus to torso. I did not stoma site him yet as he needs to return for further testing (CT, MRI) and to see plastic surgery for flap withhis APR, also bowel prep. It will be a challenge to stoma site him and I would anticipate the site would need to be high as he will not be able to see it otherwise. I did briefly review with him A&P, surgical procedure and general lifestyle with a colostomy. I showed them typical appliances anddescribed how to change and empty them. I gave them a teaching booklet, [employer] information and we will plan to see them again before surgery at the end of March/early April. * Bobby Hills - 03/24/2013 3:53 PM EDT Colon and Rectal Surgery Follow-up [...] can not be excluded. 02/25/2013 finished chemorads 03/24/13 (today) = ~4 weeks 04/23/13 = ~8 weeks Interval History: Mr. Reg Salazar returns for interval oncologic colorectal surgery followup after completing neoadjuvant chemoradiation approximately four weeks ago. He states he made it through okay without any nausea and vomiting, but he did miss a week of work for hand and foot syndrome. He works at [employer] working with wood quite a bit. In the interim since I had seen him last with the chemoradiation, he has lost approximately 15 to 20 pounds and he is not having any rectal bleeding and the squirts that he had are significantly better at this point. He is still going three or four times a day but he has decreased his Lomotil to only twice a day and he is confident that he can wean it to off soon. He is accompanied by his Charlette mendez. Physical Exam: General Appearance: Healthy-appearing, obese gentleman, borderline morbidly obese who has obviously lost some weight from his very large lower abdominal pannus. Anicteric. Moist mucous membranes. No supraclavicular lymphadenopathy. No Sr. Babita Levi nodule. No groin lymphadenopathy. No palpable incision scars, hernias, or masses. Rectal Exam: The patient was examined in the left lateral decubitus position and gentle eversion of the anoderm revealed some very mildly erythematous perianal skin and digital rectal exam was performed, which revealed a rather sizable ulcer in the anterior midline mostly at the level of the anorectal junction and sphincter complex; and it feels less fixed to the prostate than it did on prior exams. It is significantly more mobile. After a time out was performed, flexible sigmoidoscopy was performed on into the sigmoid colon; and this revealed an ulcer with a fibrinous exudate in the process of healing and no evidence of residual tumor, just periulcer inflammation. Impression: Excellent response to neoadjuvant chemoradiation in a patient with low rectal cancer low enough involving the sphincter complex as well as abutting the prostate obviating sphincter-preserving operation. Plan: I had a lengthy discussion with the gentleman and Charlette regarding the possibility for sphincter salvage. I would not completely rule out 100%, but what I counseled the patient was that I think it would be technically inadequate and would risk leaving tumor cells behind and if he really was adamant to avoid a colostomy then we should think about avoiding surgery altogether. He was not interested in this. In addition, I counseled him that patients with coloanal anastomosis two thirds of the time have gross fecal incontinence and need to wear permanent diapers; and he is not interested in that either. He understands that his best chance at a long-term survival is with an abdominoperineal resection and permanent colostomy. The good news is that it appears less fixed to the prostate anteriorly and that he has an excellent possibly complete clinical response. Therefore, what we will go ahead and do is obtain another MRI to assess the anterior margin mostly as well as restage him with a CT scan of chest, abdomen, and pelvis; proceed with presurgical testing; have him start the stoma education process today; and informed consent was obtained in which the procedure, risks, benefits, and alternatives were all explained to the patient. We specifically discussed the 10% major complication rate, 30% minor complication rate, the biggest being perineal wound dehiscence given his obesity and diabetes. Therefore, I contacted Oscar Soto and advised the patient that he should have preemptive plastics flap to prevent perineal wound dehiscence and a chronic sacral sinus. He is amenable to that; and we also discussed a laparoscopic approach, the possibility especially given his obesity of not being able to do this in a minimally invasive manner, and a multitude of other questions and concerns on both our parts. We discussed the length of the operation and convalescence and recovery and long-term plans. This was quite overwhelming for both himself and Charlette. I am not sure how much they absorbed. We wrote down the instructions for the bowel prep and sent the antibiotics to his pharmacy and asked the nurses to review that; and he will come back for the presurgical testing, the further imaging, the consultation with Dr. Soto, and site marking closer to the time of surgery, which should be approximately four weeks from now plus or minus a week or so. We also discussed enhanced recovery, urology assistance with stents and possibly with prostate. We discussed bladder dysfunction 30% sexual dysfunction uncommon and he is already on Viagra for diabetes related ED. We discussed 4% national overall mortality from rectal cancer surgery. We discussed curative intent of surgery and need for advjuant FOLFOX. Also his sugards are >250 currently as edwige delores told him to stop the diabetes meds d/t diarrhea and I advised him to re- start today and see his PCP law. Ideally he would be placed on insulin for the next 4 weeks to lessen risk of wound healing problems; he is not keen on this. I personally spent a total of 40 minutes in [id number] consultation with the patient, of which 30were in patient education and counseling. An additional 5 minutes were spent performing flexible sigmoidoscopy. Bobby Hills MD, MS, FACS automotive technician instructor Division of Colon and Rectal Surgery [facility] Pager #[phone] documented in this encounter Plan of Treatment Scheduled Referrals Name Type Priority Associated Diagnoses Orde r Schedule Referral to Plastic Surgery Outpatient Referral Routine Rectal cancer Ordered: 03/24/2013 documented as of this encounter Results * (ABNORMAL) CT chest, abdomen, & pelvis with contrast (04/06/2013 6:10 PM EDT) Anatomical Region Laterality Modality Computed Tomogra phy 04/06/2013 6:10 PM EDT Narrative 04/06/2013 6:[address] Chest / Abdomen / Pelvis With Contrast Clinical History metastatic work-up low rectal cancer s/p neoadjuv preop APR Comparison None Technique 110 mL Omnipaque 350 utilized for intravenous contrast. ??Enteric contrast also administered. Findings Chest: The lungs are clear. ??No pulmonary nodules, areas of airspace consolidation or pleural effusion. No thoracic adenopathy, to include the axilla, mediastinum, and aubrie. Nonocclusive thrombus is seen extending for approximately 1-2 cm beyond the tip of a right internal jugular central venous catheter. Abdomen: The liver is normal. ??No mass lesions. ??No biliary ductal dilatation or perihepatic fluid. ??The spleen, gallbladder, pancreas, adrenal glands, and kidneys are unremarkable. No adenopathy, free fluid or free air. No small bowel obstruction. ??No areas of abnormal small bowel wall thickening. ?? The appendix is well visualized and is normal. Pelvis: Increased strandy/infiltrative changes seen in the mesorectal fat abutting the left side of the rectum. ??This is more clearly delineated on an MRI of the pelvis from today. ??Reference is made to that report. ??No pelvic sidewall or inguinal lymphadenopathy. The osseous structures are unremarkable metastasis. Impression ? 1. No evidence of distant disease. ? 2. Unexpected finding: ??Nonocclusive thrombus noted extending from tip of right central venous catheter come into superior vena cava. ? 3. Ill-defined strandy change seen in the left mesol rectal fat, compatible patient's known history of rectal neoplasm. ??This is more clearly delineated on the MRI of the pelvis from today. Resulting Agency Comment Unexpected Finding Procedure Note Mark Orozco MD - 04/06/[address] Chest / Abdomen / Pelvis With Contrast Clinical History metastatic work-up low rectal cancer s/p neoadjuv preop APR Comparison None Technique 110 mL Omnipaque 350 utilized for intravenous contrast. Enteric contrastalso administered. Findings Chest: The lungs are clear. No pulmonary nodules, areas of airspaceconsolidation or pleural effusion. No thoracic adenopathy, to include the axilla, mediastinum, and aubrie. Nonocclusive thrombus is seen extending for approximately 1-2 cm beyondthe tip of a right internal jugular central venous catheter. Abdomen: The liver is normal. No mass lesions. No biliary ductal dilatation or perihepatic fluid. The spleen, gallbladder, pancreas, adrenal glands, and kidneys are unremarkable. No adenopathy, free fluid or free air. No small bowel obstruction. No areas of abnormal small bowel wallthickening. The appendix is well visualized and is normal. Pelvis: Increased strandy/infiltrative changes seen in the mesorectal fat abuttingthe left side of the rectum. This is more clearly delineated on an MRI of the pelvis from today. Reference is made to that report. No pelvic sidewallor inguinal lymphadenopathy. The osseous structures are unremarkable metastasis. Impression 1. No evidence of distant disease. 2. Unexpected finding: Nonocclusive thrombus noted extending fromtip of right central venous catheter come into superior vena cava. 3. Ill-defined strandy change seen in the left mesol rectal fat, compatible patient's known history of rectal neoplasm. This is moreclearly delineated on the MRI of the pelvis from today. Bobby Hills MD IMG CT ORDERABLES documented in this encounter Visit Diagnoses Diagnosis Rectal cancer- Primary Malignant neoplasm of rectum Diabetes mellitus Type II or unspecified type diabetes mellitus without mention of complication, not stated as uncontrolled Obesity (BMI 35.0-39.9 without comorbidity) Obesity, unspecified Rectal cancer Malignant neoplasm of rectum documented in this encounter Care Teams Cash Crop Farmer Relationship Specialty Start Date End Date Randa Rosas APRN [address] [place] [address] PCP - General 12/29/12 04/16/22 documented as of this encounter
--- OUTSIDE RECORDS SUMMARY | 2024-11-18 17:01 | XMS_ITS | Encounter Summary ---
Author Organization [facility] Address [facility] [place] [address] [address] Team Providers Care Road Freight Firer Name Role Phone Randa Rosas APRN Primary Care Provider [phone]- [phone] Reason for Visit * Reason Comments Chemotherapy 5FU CADD pump change concurrent with XRT Encounter Details Date Type Department Care Team (Late st Contact Info) Description 02/15/2013 3:30 PM EDT Office Visit Hematology Oncology at [address] [id number] CLINIC, DR OQUENDO HEM/ONC Rectal cancer (Primary [...] as of this encounter Progress Notes * [place] Madrigal RN - 02/15/2013 3:31 PM EDT INFUSION THERAPY ADMINISTRATION NOTES DIAGNOSIS: Rectal Cancer REASON FOR VISIT: Continuous 5FU home infusion and reaccess mediport SUBJECTIVE Reg denies any complaints. REACTIONS (DESCRIPTION, TIME, INTERVENTION AND EFFECTIVENESS) none ASSESSMENT CADD pump provided by [facility], [facility], pump was double checked by [place] Madrigal RN and Deborah Rees to connection. Pump was checked 15min after connection and appropirate amount was infused. Patient was awake, alert and tolerated treatment well. PLAN Patient is aware to call clinic with any questions and concerns M-F 8am to 5pm and to call [facility] with any questions and concerns in the off hours. Return to clinic per routine. documented in this encounter Plan of Treatment Not on file documented as of this encounter Visit Diagnoses Diagnosis Rectal cancer- Primary Malignant neoplasm of rectum documented in this encounter Care Teams Road Freight Firer Relationship Specialty Start Date End Date Randa Rosas APRN [address] [place] [address] PCP - General 12/29/12 04/16/22 documented as of this encounter
--- OUTSIDE RECORDS SUMMARY | 2024-11-18 17:01 | XMS_ITS | Encounter Summary ---
Author Organization [facility] Address [facility] [place] [address] Care Team Providers Care Contract Clerk Automobile Name Role Phone Randa Rosas APRN Primary Care Provider +1- [phone] Reason for Visit * Reason Comments On Treatment Visit Encounter Details Date Type Department Care Team (Late st Contact Info) Description 01/19/2013 5:30 PM EST Follow-Up Radiation Oncology at [address] [phone] Jensen Wills MD Rectal cancer (Primary Dx) Discharge Disposition: [...] Sign Reading Time Taken Comments Blood Pressure 124/77 01/19/2013 5:00 PM EST Pulse 88 01/19/2013 5:00 PM EST Temperature 36.7 ??C (98.1 ??F) 01/19/2013 5:00 PM ES T Respiratory Rate - - Oxygen Saturation 97% 01/19/2013 5:00 PM EST Inhaled Oxygen Concentration - - Weight 110.8 kg (244 lb 4 oz) 01/19/2013 5:00 PM EST Height - - Body Mass Index 38.79 01/18/2013 9:27 AM EST documented in this encounter Progress Notes * Jensen Wills MD - 01/19/2013 4:05 PM EST ON TREATMENT VISIT: DATE:01/19/2013 PATIENT STATUS: The patient presented with diarrhea not responding to symptomatic management. Colonoscopy showed a near circumferential mass extending just above the anal verge up to 10 cm inside therectum. Additionally a polyp was found at 16 cm. 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 The polyp was not removed. CT scan of the chest abdomen and pelvis in [place] was read out as completely negative. The patient deniesrectal bleeding. He has persistent perineal heaviness with difficulty in moving his bowels. He has no urinary symptoms. The patient will require abdominoperineal resection. He is very apprehensive about a permanent colostomy. The patient will benefit from neoadjuvant chemoradiation prior to surgical resection . Neoadjuvant chemoradiation will improve his local control. According to The [place] Rectal Cancer trial group Thefive-year cumulative incidence of local relapse was 6 percent for patients assigned to preoperative chemoradiotherapy and 13 percent in the postoperative-treatment group (P=0.006) (N. Eng. J. Med., 351: 1731- 1740, 2004). His five-year progression-free survival is around 75%. The patient will have six weeks of chemoradiation with concomitant continuous infusion 5-FU to be followed by six weeks of rest. At that time, he is going to reevaluated for surgical resection. He is a candidate for abdominoperineal resection. The chance of pathological complete response is around 30%, partial response 50%, no response 20%. His pathologic stage may have an impact on his prognosis and survival or potential surveillance. He will also be treated with additional chemotherapy afterwards. A local excision is not considered to be a good option for him even after neoadjuvant chemoradiation given the size of the lesion with relapse rate of about 40% to 50%. The possible side effects of treatment including, but not limited to, diarrhea, increased lower urinary tract symptoms, mucositis, hand and foot syndrome, and decreased counts have all been profoundly explained to him. The patient accepted the plan of treatment and willstart treatment after scheduled evaluation and studies .. 01/18/2013 CEA = 5.5 01/10/2013 MRI PELVIS Enhancing rectal mass, consistent with known rectal carcinoma, which extends from the anal verge tothe rectosigmoid junction. This mass contacts the mesorectal fascia with possible involvement of the posterior prostate gland, making the lesion T3 or T4. Multiple local/regional lymph nodes. Lymphatic involvement can not be excluded. Impression: Invasive adenocarcinoma of the rectum extending 10 cm into the rectal canal.Imagin01/10/13. Enhancing rectal mass, consistent with known rectal carcinoma, which extends from the anal verge to the rectosigmoid junction. This mass contacts the mesorectal fascia with possible involvement of the posterior prostate gland, making the lesion T3 or T4. 2. Multiple local/regional lymph nodes. Lymphatic involvement can not be excluded. . TREATMENT PLAN: RADIATION + CT Site Technique Dose/ Fraction Fraction Number MeV p e TOTAL DOSE Treatment Dates Pelvis 4 field 180 25 p 4500 01/19 to DOSE to DATE 180: cGy in 1 FX RADIATION TREATMENT IMAGING: matches original approved images/bz ON TREATMENT EVALUATION: MEDICAL: 0 PHYSICAL: 0 AIDS: LABS: TOXICITY:0 REFER TO NURSES UPDATED NOTES RESPONSE TO TREATMENT: MANAGEMENT PLAN: CONTINUE TREATMENT PLANNED: XX CHANGE TREATMENT HOLD TREATMENT STOP TREATMENT Discussion time with patient (face to face)15 min. documented in this encounter Plan of Treatment Not on file documented as of this encounter Visit Diagnoses Diagnosis Rectal cancer- Primary Malignant neoplasm of rectum documented in this encounter Care Teams Contract Clerk Automobile Relationship Specialty Start Date End Date Randa Rosas APRN [address] [place] [address] PCP - General 12/29/12 04/16/22 documented as of this encounter
--- OUTSIDE RECORDS SUMMARY | 2024-11-18 17:01 | XMS_ITS | Encounter Summary ---
Author Organization [facility] Address [facility] [place] [address] Care Team Providers Care Packaging Engineer Name Role Phone Randa Rosas APRN Primary Care Provider +1- [phone] Reason for Visit * Reason Comments Rectal Cancer Encounter Details Date Type Department Care Team (Late st Contact Info) Description 02/08/2013 3:00 PM EDT Follow-Up Hematology Oncology at [address] [phone] Nas Dobbs MD Rectal cancer (Primary Dx) [...] Sign Reading Time Taken Comments Blood Pressure 112/75 02/08/2013 3:10 PM EDT Pulse 97 02/08/2013 3:10 PM EDT Temperature 36.8 ??C (98.2 ??F) 02/08/2013 3:10 PM ED T Respiratory Rate 16 02/08/2013 3:10 PM EDT Oxygen Saturation 99% 02/08/2013 3:10 PM EDT Inhaled Oxygen Concentration - - Weight 109.5 kg (241 lb 8 oz) 02/08/2013 3:10 PM EDT Height 169 cm (5' 6.54) 02/08/2013 3:10 PM EDT Body Mass Index 38.35 02/08/2013 3:10 PM EDT documented in this encounter Progress Notes * Nas Dobbs MD - 02/08/2013 3:35 PM EDT Diagnosis: Invasive adenocarcinoma of the [...] excluded. Subjective: Reg is here today week four infusional 5-fluorouracil concurrent with his radiation therapy in thetreatment of his rectal cancer. His rectal soreness is about the same and he really thinks he is keeping it under control. 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 She's not having any particular side effects from treatment and in fact believes that he actually feels better and has more energy than he did prior to starting treatment. Past medical history and social history are reviewed and unchanged from last week. He's continued to be able to work. Review of Systems Constitutional: Negative for fever, [...] nodes normal Neurologic: Normal Lab today Is pending but will be evaluated prior to starting the next week's 5FU infusion Assessment/Plan: Reg has a low rectal cancer. Clinically he is Doing exceptionally well and not having any significant secondary effects from treatment. We'll go ahead with today's pump once we review his lab and see him back in a week with a peripheral draw CBC and CMP for week fives infusion. He'll let us know if any problems develop in the interim. documented in this encounter Plan of Treatment Not on file documented as of this encounter Visit Diagnoses Diagnosis Rectal cancer- Primary Malignant neoplasm of rectum documented in this encounter Care Teams Packaging Engineer Relationship Specialty Start Date End Date Randa Rosas APRN [address] [place] [address] PCP - General 12/29/12 04/16/22 documented as of this encounter
--- OUTSIDE RECORDS SUMMARY | 2024-11-18 17:01 | XMS_ITS | Encounter Summary ---
Author Organization [facility] Address [facility] [place] [address] Care Team Providers Care Roadway Engineer Name Role Phone Randa Rosas APRN Primary Care Provider +1- [phone] Reason for Visit * Reason Comments Radiation Follow-up Encounter Details Date Type Department Care Team (Late st Contact Info) Description 03/04/2013 3:30 PM EDT Follow-Up Radiation Oncology at [address] [phone] Richie Brady MD [facility] [place] [place] [address] Rectal cancer (Primary Dx) Discharge Disposition: Home [...] Sign Reading Time Taken Comments Blood Pressure 111/72 03/04/2013 4:22 PM EDT Pulse 84 03/04/2013 4:22 PM EDT Temperature 36.6 ??C (97.9 ??F) 03/04/2013 4:22 PM ED T Respiratory Rate 16 03/04/2013 4:22 PM EDT Oxygen Saturation 98% 03/04/2013 4:22 PM EDT Inhaled Oxygen Concentration - - Weight 106.6 kg (235 lb) 03/04/2013 4:22 PM EDT Height - - Body Mass Index 37.32 02/22/2013 3:05 PM EDT documented in this encounter Progress Notes * Richie Brady MD - 03/04/2013 5:37 PM EDT End of Treatment Note Identification: Mr.Mark Emmanuelle Salazar is a very pleasant 57-year-old male with low lying adenocarcinoma of the rectum 2 cm from the anal verge and extending to the rectosigmoid junction. He has no evidence of metastases. The patient has been started on neoadjuvant chemoradiation. Radiation therapy was delivered with [...] Treatment was delivered with a full bladder. Followup: The patient tolerated the treatment with moderate side effects. His pain was under control using Percocet.He developed no dysuria or hematuria. He had diarrhea responding to lomotil. HE also developed Hand and Foot syndrome but no mucositis. Patient's Medications New Prescriptions No medications on file Previous Medications ATORVASTATIN (LIPITOR) 40 MG TABLET Take 20 mg by mouth daily. 1/2 tab= 20mg DIPHENOXYLATE-ATROPINE (LOMOTIL) 2.5-0.025 MG PER TABLET Take 1 tablet by mouth 4 times daily as needed. GLIPIZIDE (GLUCOTROL) 10 MG 24 HR TABLET Take 10 mg by mouth daily. IBUPROFEN (ADVIL;MOTRIN) 200 MG TABLET Take 200 mg by mouth every 4 hours as needed. Indications: Pain INDOMETHACIN ORAL Take by mouth. LISINOPRIL (PRINIVIL;ZESTRIL) 10 MG TABLET Take 10 mg by mouth 2 times daily. METFORMIN (GLUCOPHAGE) 500 MG TABLET Take 500 mg by mouth nightly. MULTIVITAMIN (THERAGRAN) TABLET Take 1 tablet by mouth daily. OXYCODONE-ACETAMINOPHEN (PERCOCET) 5-325 MG PER TABLET Take 1-2 tablets by mouth every 4 hours as needed for Pain. PROCHLORPERAZINE (COMPAZINE) 10 MG TABLET Take 1 tablet by mouth every 6 hours as needed for Nausea. SILDENAFIL (VIAGRA) 100 MG TABLET Take 100 mg by mouth as needed. SILVER SULFADIAZINE (SILVADENE) 1 % CREAM Mix 1 part silvadene with 1 part each of: lidocaine jelly, triple antibiotic ointment, ketoconazole, and hydrocortisone 1% cream. Apply this mixture to area of radiation reaction twice a day. This was supplied by clinic per DR Wills. SITAGLIPTIN-METFORMIN (JANUMET) 50-1,000 MG PER TABLET Take 1 tablet by mouth 2 times daily (with meals). Modified Medications No medications on file Discontinued Medications No medications on file On examination Filed Vitals: 03/04/13 1622 BP: 111/72 Pulse: 84 Temp: 36.6 ??C (97.9 ??F) Resp: 16 Vitally stable. Grade 2 perineal skin reaction. Rectal examination reveals downsized mass still at 2cm . Impression: Modest response to chemoradiation with acceptable side effects. Plan: The patient will be evaluated by Colorectal Surgery for abdominoperineal resection. The tumor will continue to shrink for the next 3-4 weeks. He will be seen again for followup in four months. documented in this encounter Plan of Treatment Not on file documented as of this encounter Visit Diagnoses Diagnosis Rectal cancer- Primary Malignant neoplasm of rectum documented in this encounter Care Teams Roadway Engineer Relationship Specialty Start Date End Date Randa Rosas APRN [address] [place] [address] PCP - General 12/29/12 04/16/22 documented as of this encounter
--- OUTSIDE RECORDS SUMMARY | 2024-11-18 17:01 | XMS_ITS | Encounter Summary ---
Author Organization [facility] Address [facility] [place] [address] Care Team Providers Care Plant Control Aide Name Role Phone Alison Randa VALENTIN Primary Care Provider +1- [phone] Encounter Details Date Type Department Care Team (Late st Contact Info) Description 04/06/2013 1:48 PM EDT - 04/06/2013 3:59 PM EDT [place] [address] Rectal cancer Social History Tobacco Use Types [...] - Inhaled Oxygen Concentration - - Weight 107 kg (236 lb) 04/06/2013 6:35 AM EDT Height - - Body Mass Index 37.48 03/08/2013 3:16 PM EDT documented in this encounter Medications at Time of Discharge Medication Sig Dispensed Refills Start Date End Date atorvastatin (LIPITOR) 40 mg tablet Take 40 mg by mouth daily. glipiZIDE (GLUCOTROL) 10 mg 24 hr tablet Take 10 mg by mouth 2 times daily. multivitamin (THERAGRAN) tablet Take 1 tablet by mouth daily. OXYcodone-acetaminop hen (PERCOCET) 5-325 mg per tabletIndications:Re ctal cancer Take 1-2 tablets by mouth every 4 hours as needed for Pain. 240 tablet 0 03/22/2013 04/12/2013 silver sulfADIAZINE (SILVADENE) 1 % creamIndications:Rad iation dermatitis Mix 1 part silvadene with 1 part each of: lidocaine jelly, triple antibiotic ointment, ketoconazole, and hydrocortisone 1% cream. Apply this mixture to area of radiation reaction twice a day. This was supplied by clinic per DR Wills. 50 g prn 02/23/2013 04/19/2013 diphenoxylate-atropi ne (LOMOTIL) 2.5-0.025 mg per tabletIndications:Re ctal cancer Take 1 tablet by mouth 4 times daily as needed. 60 tablet 3 01/25/2013 05/18/2013 ibuprofen (ADVIL;MOTRIN) 200 mg tabletIndications:pa in Take 200 mg by mouth every 4 hours as needed. Indications: Pain 05/18/2013 prochlorperazine (COMPAZINE) 10 mg tabletIndications:Re ctal cancer,Chemotherapy induced nausea and vomiting Take 1 tablet by mouth every 6 hours as needed for Nausea. 30 tablet 3 01/05/2013 04/19/2013 lisinopril (PRINIVIL;ZESTRIL) 10 mg tablet Take 10 mg by mouth 2 times daily. 01/31/2022 sildenafil (VIAGRA) 100 mg tablet Take 100 mg by mouth as needed. 11/18/2017 sitaGLIPtin-metFORMI N (JANUMET) 50-1,000 mg per tablet Take 1 tablet by mouth 2 times daily (with meals). 05/18/2013 metFORMIN (GLUCOPHAGE) 500 mg tablet Take 500 mg by mouth nightly. 05/18/2013 INDOMETHACIN ORAL Take by mouth. Reported on 01/01/2017 08/03/2020 documented as of this encounter Miscellaneous Notes * Miscellaneous - Provider, Scanning - 04/12/2013 8:01 AM EDT documented in this encounter Plan of Treatment Not on file documented as of this encounter Procedures Procedure Name Priority Date/Time Associated Diagnosis Comments MRI PELVIS SOFT TISSUE (GI TOOLMAN) WWO CONTRAST Routine 04/06/2013 3:49 PM EDT Malignant neoplasm of rectum documented in this encounter Results * MRI pelvis with/WO contrast (04/06/2013 3:49 PM EDT) Anatomical Region Laterality Modality Pelvis Magnetic Resonan ce 04/06/2013 3:49 PM EDT Narrative 04/06/2013 4:45 PM EDT Examination MR Pelvis W WO Bola Clinical History rectal cancer protocol ?? restaging prior mrT3/4N1 ?? ? anterior margin excellent clinical response Comparison January 10, 2013. Technique Multiplanar T2 weighted images; multiplanar T1 weighted gradient images with fat saturation (20 mL Magnevist) utilizing a rectal cancer protocol. Findings The previously noted circumferential, transmural area of wall thickening seen in the rectum has decreased in extent. ??Grossly, the lesion measures approximately 4.2 cm in length (series 3, image 16).The lesion still extends to the left aspect of the mesial rectal fascia (series 10, image 17, image 18; CRM = 0). ??As noted previously, the lesion abuts the posterior prostate gland, this appears less extensive than on the previous study (series 10, images 20, 21; series 13, image 16).). ?? The lesion enhances on the post-contrast images (series 15, images 51-55). The previously noted nasal rectal and pelvic lymph nodes have decreased in size, now under 5 mm. ??No new areas of lymphadenopathy. ??No new areas of disease noted. Impression ? 1. Decreased size of previously noted rectal mass with persistent extension to the left mesial rectal fascia, however, there has been slight retraction with respect to the extent to which the lesion abuts the posterior aspect of the prostate gland. ? 2. Decreased size of previously noted regional lymph nodes. Procedure Note Mark Orozco MD - 04/06/2013 Examination MR Pelvis W WO Bola Clinical History rectal cancer protocol restaging prior mrT3/4N1 ? anterior margin excellent clinical response Comparison January 10, 2013. Technique Multiplanar T2 weighted images; multiplanar T1 weighted gradient imageswith fat saturation (20 mL Magnevist) utilizing a rectal cancer protocol. Findings The previously noted circumferential, transmural area of wall thickeningseen in the rectum has decreased in extent. Grossly, the lesion measures approximately 4.2 cm in length (series 3, image 16).The lesion stillextends to the left aspect of the mesial rectal fascia (series 10, image 17, image18; CRM = 0). As noted previously, the lesion abuts the posterior prostate gland,this appears less extensive than on the previous study (series 10, images 20,21; series 13, image 16).). The lesion enhances on the post-contrast images (series 15, images 51-55). The previously noted nasal rectal and pelvic lymph nodes have decreased in size, now under 5 mm. No new areas of lymphadenopathy. No new areas of disease noted. Impression 1. Decreased size of previously noted rectal mass with persistent extension to the left mesial rectal fascia, however, there has been slight retraction with respect to the extent to which the lesion abuts theposterior aspect of the prostate gland. 2. Decreased size of previously noted regional lymph nodes. Bobby Hills MD IM MRI ORDERABLES documented in this encounter Visit Diagnoses Diagnosis Rectal cancer Malignant neoplasm of rectum documented in this encounter Administered Medications Inactive Administered Medications - up to 3 most recent administrations Medication Order MAR Action Action Date Dose Rate Site gadopentetate dimeglumine (MAGNEVIST) injection 21 mL 21 mL (0.2 mL/kg/dose ? 107 kg), Intravenous, ONCE PRN, Per Protocol, Starting on Thu04/06/13 at 0635, 1 dose, Until Thu04/06/13 at 1542 Given 04/06/2013 3:42 PM EDT 20 mLs documented in this encounter Care Teams Plant Control Aide Relationship Specialty Start Date End Date Randa Rosas APRN [address] [place] [address] PCP - General 12/29/12 04/16/22 documented as of this encounter
--- OUTSIDE RECORDS SUMMARY | 2024-11-18 17:01 | XMS_ITS | Encounter Summary ---
Author Organization [facility] Address [facility] [place] [address] Care Team Providers Care Wood Room Supervisor Name Role Phone Randa Rosas APRN Primary Care Provider +1- [phone] Encounter Details Date Type Department Care Team (Late st Contact Info) Description 04/18/2013 Telephone General Surgery at [facility] [place] [phone] Ruma Mann RN Social History Tobacco Use Types Packs/Day [...] encounter Miscellaneous Notes * Telephone Encounter - Ruma Baldwin RN - 04/18/2013 3:12 PM EDT Reg called to review the instructions for his lovenox. I found the notes from his doctor and Doctor Reinier and read them to him. He is having sugery in April not on April 27 as he first expected as he has a combined procedure with Dr. Soto and Reinier. He notes he needs to do his bowel prep and stop lovenox the day before surgery. Bobby Hills MD Signed Bobby Hills MD 04/07/2013 10:04 AM Telephone Encounter Spoke Dr. Dobbs re: Mediport thrombus. He will arrange lovenox. Lovenox will need to be held for 24 hrs preop (if one daily dosing) or 12 hrs preop (if BID dosing). Nas Dobbs MD Signed Nas Dobbs MD 04/07/2013 11:01 AM Progress Notes We received a phone call regarding an unexpected finding on Prasanna preoperative evaluation CT scan in anticipation of his AP resection. He has a nonocclusive clot on the end of his port catheter extending approximately 2 cm beyond the catheter. I gave Reg a call and he will come in today to start on Lovenox. He is asymptomatic from this.. Plans will be to leave him on Lovenox daily untill right before his surgery and then he'll stop it in anticipation of that procedure. The Lovenox should be restarted afterwards. Plans will be to leave the catheter in as he will probably require FOLFOX chemotherapy postoperatively and leave him on Lovenox until we can get the catheter out at completion of his postoperative chemotherapy. Nursing will meet with him and his today and go over a demonstration teaching and we have a scheduled followup with him to see how things are going. The Lovenox dose will be 1 1/2 mg per kilo daily subcutaneously administered. This calculates to a dose of 150 mg daily. documented in this encounter Plan of Treatment Not on file documented as of this encounter Visit Diagnoses Not on filedocumented in this encounter Care Teams Wood Room Supervisor Relationship Specialty Start Date End Date Randa Rosas APRN [address] [place] [phone] PCP - General 12/29/12 04/16/22 documented as of this encounter
--- OUTSIDE RECORDS SUMMARY | 2024-11-18 17:01 | XMS_ITS | Encounter Summary ---
Author Organization [facility] Address [facility] [place] [address] Care Team Providers Care Meat Wrapper Name Role Phone Randa Rosas APRN Primary Care Provider +1- [phone] Encounter Details Date Type Department Care Team (Late st Contact Info) Description 01/28/2013 4:45 PM EST Office Visit Hematology Oncology at [address] [phone] CLINIC, Richie Pardo MD [facility] [place] [address] Discharge Disposition: Home Social History Tobacco Use [...] filedocumented in this encounter Care Teams Meat Wrapper Relationship Specialty Start Date End Date Randa Rosas APRN [address] [place] [phone] PCP - General 12/29/12 04/16/22 documented as of this encounter
--- OUTSIDE RECORDS SUMMARY | 2024-11-18 17:01 | XMS_ITS | Encounter Summary ---
Author Organization [facility] Address [facility] [place] [address] Care Team Providers Care Starcher And Tenter Range Feeder Name Role Phone Randa Rosas APRN Primary Care Provider +1- [phone] Reason for Visit * Reason Comments Rectal Cancer Encounter Details Date Type Department Care Team (Late st Contact Info) Description 01/25/2013 3:00 PM EST Follow-Up Hematology Oncology at [address] [phone] Nas Dobbs MD Rectal cancer (Primary Dx) [...] Sign Reading Time Taken Comments Blood Pressure 133/80 01/25/2013 2:54 PM EST Pulse 88 01/25/2013 2:54 PM EST Temperature 36.5 ??C (97.7 ??F) 01/25/2013 2:54 PM ES T Respiratory Rate 18 01/25/2013 2:54 PM EST Oxygen Saturation 98% 01/25/2013 2:54 PM EST Inhaled Oxygen Concentration - - Weight 109.8 kg (242 lb) 01/25/2013 2:54 PM EST Height 169 cm (5' 6.54) 01/25/2013 2:54 PM EST Body Mass Index 38.43 01/25/2013 2:54 PM EST documented in this encounter Progress Notes * Nas Dobbs MD - 01/25/2013 3:12 PM EST Diagnosis: Invasive adenocarcinoma of the rectum extending [...] be excluded. Subjective: Reg is here today one week after starting infusional 5-fluorouracil concurrent with his radiation therapy in the treatment of his rectal cancer. He is having more solid bowel movements than he had been having with less discomfort in the rectal area. He still has diarrhea however and is using Lomotil to help with that. He's not having any stomatitis or other symptoms and is been able to work fulltime even with the pump on which he is grateful for. His was able to come in with him today for the appointment. She's been quite stressed overall with the clinical situation and is good to see her doing a bit better. Past medical history and social history are [...] axillary nodes normal Neurologic: Normal Lab today shows white count 7.5 hemoglobin 13 platelet count 274 CMP is normal except for glucose of 238 with him off of his usual diabetes medication. Liver tests are normal as are electrolytes. Creatinine is 0.9 Assessment/Plan: Reg has a low rectal cancer. Clinically he is improved with infusional 5- fluorouracil in one week of radiation therapy. He is tolerating the medication well and is lab is fine for continued treatment. We'll go ahead with week 2 today and see him back in a week with a CBC and CMP. His Lomotil was refilled. He'll call if any issues or problems develop in the interim. He'll let us know if problems or questions arise in the interim. documented in this encounter Procedure Notes * Provider, Scanning - 01/25/2013 3:26 PM ESTAssociated Order(s): SCAN DOC: LAB documented in this encounter Plan of Treatment Not on file documented as of this encounter Procedures Procedure Name Priority Date/Time Associated Diagnosis Comments LAB SCAN 01/25/2013 3:26 PM EST documented in this encounter Results * SCAN DOC: LAB (01/25/2013 3:26 PM EST) Narrative 01/25/2013 3:26 PM EST Procedure Note Provider, Scanning - 01/25/2013 3:26 PM EST Scanning Provider MEDIA MGR SCAN EXT O RDR/RSLT documented in this encounter Visit Diagnoses Diagnosis Rectal cancer- Primary Malignant neoplasm of rectum documented in this encounter Care Teams Starcher And Tenter Range Feeder Relationship Specialty Start Date End Date Randa Rosas APRN [address] [place] [phone] PCP - General 12/29/12 04/16/22 documented as of this encounter
--- OUTSIDE RECORDS SUMMARY | 2024-11-18 17:01 | XMS_ITS | Encounter Summary ---
Author Organization [facility] Address [facility] [place] [address] Care Team Providers Care Architecture Faculty Member Name Role Phone Randa Rosas APRN Primary Care Provider +1- [phone] Reason for Visit * Reason Comments Chemotherapy Encounter Details Date Type Department Care Team (Late st Contact Info) Description 02/01/2013 4:00 PM EST Office Visit Hematology Oncology at [address] [phone] CLINIC, DR OQUENDO HEM/ONC Rectal cancer (Primary [...] Progress Notes * Miriam Dubois RN - 02/02/2013 11:13 AM EST TIME TREATMENT STARTED: 1600 TIME TREATMENT ENDED: 1630 Reg Emmanuelle Salazar, 57 y.o. male with diagnosis of rectal cancer is here for change of mediport access for continuous 5-fu infusion. PROTOCOL: no CYCLE: concurrent S: Pt. offers no complaints at this time. O: Chemotherapy orders independently verified for correct drug name, route and dosage per patient'sheight, weight and BSA by Miriam Dubois RN and onsite pharmacist. Pump running appropriately upon patient leaving clinic. REACTIONS (DESCRIPTION, TIME, INTERVENTION AND EFFECTIVENESS) none A: Pt. Tolerated treatment well. Reg Emmanuelle Marie confirms that all questions and issues have been addressed. P: Return to clinic as scheduled. documented in this encounter Plan of Treatment Not on file documented as of this encounter Visit Diagnoses Diagnosis Rectal cancer- Primary Malignant neoplasm of rectum documented in this encounter Care Teams Architecture Faculty Member Relationship Specialty Start Date End Date Randa Rosas APRN [address] [place] [address] PCP - General 12/29/12 04/16/22 documented as of this encounter
--- OUTSIDE RECORDS SUMMARY | 2024-11-18 17:01 | XMS_ITS | Encounter Summary ---
Author Organization [facility] Address [facility] [address] Care Team Providers Care Certified Scrub Tech Name Role Phone Randa Rosas APRN Primary Care Provider +1- [phone] Reason for Visit * Reason Comments On Treatment Visit Encounter Details Date Type Department Care Team (Late st Contact Info) Description 02/02/2013 5:00 PM EST Follow-Up Radiation Oncology at [address] [phone] Jensen Wills MD Dysuria (Primary Dx); Rectum cancer Discharge Disposition: Home Social History Tobacco [...] Sign Reading Time Taken Comments Blood Pressure 121/82 02/02/2013 5:00 PM EST Pulse 84 02/02/2013 5:00 PM EST Temperature 37 ??C (98.6 ??F) 02/02/2013 5:00 PM EST Respiratory Rate - - Oxygen Saturation - - Inhaled Oxygen Concentration - - Weight 109.3 kg (241 lb) 02/02/2013 5:00 PM EST Height - - Body Mass Index 38.28 02/01/2013 3:12 PM EST documented in this encounter Progress Notes * Jensen Wills MD - 02/02/2013 5:36 PM EST ON TREATMENT VISIT: DATE:02/02/2013 PATIENT STATUS: The patient presented with diarrhea [...] of the chest abdomen and pelvis in [place] was read out as completely negative. The patient deniesrectal bleeding. He has persistent perineal heaviness with difficulty in moving his bowels. He has no urinary symptoms. The patient will require abdominoperineal resection. He is very apprehensive about a permanent colostomy. The patient will benefit from neoadjuvant chemoradiation prior to surgical resection . Neoadjuvant chemoradiation will improve his local control. According to The [place] Rectal Cancer trial group Thefive-year cumulative incidence [...] and studies .. 01/18/2013 CEA = 5.5 MRI PELVIS: Enhancing rectal mass, consistent with known rectal [...] p 4500 01/19 to DOSE to DATE 2160: cGy in 12 FX RADIATION TREATMENT IMAGING: matches original approved images/bz ON TREATMENT EVALUATION: MEDICAL: Burning with urination PHYSICAL: 0 AIDS Rx for Pyridium 200 mg bid Drink Cran or pom juice: LABS : TOXICITY:Gr 2 rad tox REFER TO NURSES UPDATED NOTES RESPONSE TO TREATMENT: good MANAGEMENT PLAN: CONTINUE TREATMENT PLANNED: XX CHANGE TREATMENT HOLD TREATMENT STOP TREATMENT Discussion time with patient (face to face)15 min. documented in this encounter Plan of Treatment Not on file documented as of this encounter Visit Diagnoses Diagnosis Dysuria- Primary Rectum cancer Malignant neoplasm of rectum documented in this encounter Care Teams Certified Scrub Tech Relationship Specialty Start Date End Date Randa Rosas APRN [address] [place] [address] PCP - General 12/29/12 04/16/22 documented as of this encounter
--- OUTSIDE RECORDS SUMMARY | 2024-11-18 17:01 | XMS_ITS | Encounter Summary ---
Author Organization [facility] Address [facility] [place] [address] Care Team Providers Care Car Rental Agent Name Role Phone Randa Rosas APRN Primary Care Provider +1- [phone] Reason for Visit * Reason Comments Rectal Cancer Encounter Details Date Type Department Care Team (Late st Contact Info) Description 04/19/2013 2:30 PM EDT Follow-Up Hematology Oncology at [address] [phone] Nas Dobbs MD Rectal cancer (Primary Dx) [...] Sign Reading Time Taken Comments Blood Pressure 113/73 04/19/2013 2:35 PM EDT Pulse 87 04/19/2013 2:35 PM EDT Temperature 36.5 ??C (97.7 ??F) 04/19/2013 2:35 PM ED T Respiratory Rate 20 04/19/2013 2:35 PM EDT Oxygen Saturation 100% 04/19/2013 2:35 PM EDT Inhaled Oxygen Concentration - - Weight 106.1 kg (234 lb) 04/19/2013 2:35 PM EDT Height 170.2 cm (5' 7.01) 04/19/2013 2:35 PM ED T Body Mass Index 36.64 04/19/2013 2:35 PM EDT documented in this encounter Progress Notes * Nas Dobbs MD - 04/19/2013 4:50 PM EDT Diagnosis: Invasive adenocarcinoma of the [...] be excluded. Subjective: Reg is here today See how he's doing. We put him on Lovenox because of a catheter associated clot and he is self injecting that without difficulties. Having no bleeding problems or bruising problems. His surgery was rescheduled for mid April to allow for involvement of plastic surgery along with his oncologic surgeon. He is able to rearrange the time off work for the new date of surgery. He is hoping to take about 6 weeks off after the surgery and then be able to go back to work. We again discussed adjuvant treatment depending on what we find a pathology. He is in good spirits but is still having some pelvic discomfort. He's taking some when necessary Percocet for that but doesn't always take this regularly. His bowel movements are reasonable. Past medical history and social history are reviewed and he is now back at work Review of Systems Constitutional: Negative for fever, [...] all four quadrants, no masses, no organomegaly Rectal exam with a 2 cm residual mass per Dr. Brady's exam Extremities: Extremities normal, atraumatic, no cyanosis or edema Pulses: 2+ and symmetric Skin: Skin color, texture, turgor normal, there is some dry flaking and peeling on his hands and the bottoms of his feet Lymph nodes: Cervical, supraclavicular, and axillary nodes normal Neurologic: Normal Assessment/Plan: Reg has a low rectal cancer. He has finished his neoadjuvant chemoradiation therapy and has shown a good tumor response although on exam still had a residual 2 cm rectal mass. He is scheduled to be restaged by surgery and to go for what is probably going to be a A&P resection. Additionally he is on Lovenox for catheter associated clot and plans will be to leave him on that and leave port in until adjuvant treatment is completed if that becomes indicated. Based on his posttreatment scans I think that is likely. He'll continue his Lovenox 150 with milligrams daily. He has instructions to stop that prior to surgery and we'll make arrangements to see him back in mid May to go over his path results and make some decisions on subsequent adjuvant treatment. I told him to continue his pain medications until surgery and then it he requires some pain medicines postoperatively we can help him taper off those eventually. He will call if any other issues or problems develop in the interim. documented in this encounter Plan of Treatment Not on file documented as of this encounter Visit Diagnoses Diagnosis Rectal cancer- Primary Malignant neoplasm of rectum documented in this encounter Care Teams Car Rental Agent Relationship Specialty Start Date End Date Randa Rosas APRN [address] [place] [phone] PCP - General 12/29/12 04/16/22 documented as of this encounter
--- OUTSIDE RECORDS SUMMARY | 2024-11-18 17:01 | XMS_ITS | Encounter Summary ---
Author Organization [facility] Address [facility] [place] [address] Care Team Providers Care Manufacturing Project Engineer Name Role Phone Randa Rosas APRN Primary Care Provider +1- [phone] Reason for Visit * Reason Comments Rectal Cancer start of cont. 5FU C ADD pump Encounter Details Date Type Department Care Team (Late st Contact Info) Description 01/18/2013 10:30 AM EST Office Visit Hematology Oncology at [address] [phone] CLINIC, DR OQUENDO HEM/ONC Rectal cancer (Primary [...] of this encounter Progress Notes * Sunitha Matias, RN - 01/18/2013 11:54 AM EST INFUSION THERAPY ADMINISTRATION NOTES TIME TREATMENT STARTED: 1115 TIME TREATMENT ENDED: 1155 DIAGNOSIS: rectal cancer PROTOCOL:na CYCLE #: week # 1 REASON FOR VISIT: start of 5 FU CADD cont. pump SUBJECTIVE Reg Emmanuelle Salazar offers no complaints. OBJECTIVE LAB DATA: Labs reviewed and found adequate for treatment. Pre administration: Chemotherapy orders independently verified for drug name, route, and dosage per patient's height, weight and BSA by Leidy Matias RN and Jackie Castorena RN. At bedside 5FU cassette of 515 mg / hour continuous IV via CADD pump verified with Kimber Dubois RN 1120 and 25 minutes later 0.2 ml had gone in. Pt. chemo teaching instructions included: During clinic hours (8am-5pm Thursday-Thursday): pt. can call [phone] with questions or concerns. After clinic hours (5pm-8am Thursday-Thursday and weekends) pt can call [phone] and ask for the side piece coverer/oncologist energy operations vice president. Reg Salazar verbalized understanding of potential chemotherapy side effects and home care including but not limited to- handwashing to prevent infection, signs and symptoms of low blood counts (fever, fatigue, bleeding), to call with a fever of 100.4 or greater, any significant constipation/diarrhea, importance of nutrition and fluid intake (drinking at least 32-64 ounces of non-caffeinated beverages/day), mouth care. Reg Salazar verbalized understanding of how to take prescription medications given for home use after chemotherapy. Reviewed phone number for [facility] should pt have any issues with CADD pump. REACTIONS (DESCRIPTION, TIME, INTERVENTION AND EFFECTIVENESS) none ASSESSMENT Reg Salazar was awake, alert and he tolerated treatment well. PLAN Return to clinic next week for needle change and 5FU cassette change. documented in this encounter Plan of Treatment Not on file documented as of this encounter Visit Diagnoses Diagnosis Rectal cancer- Primary Malignant neoplasm of rectum documented in this encounter Care Teams Manufacturing Project Engineer Relationship Specialty Start Date End Date Randa Rosas APRN [address] [place] [address] PCP - General 12/29/12 04/16/22 documented as of this encounter
--- OUTSIDE RECORDS SUMMARY | 2024-11-18 17:01 | XMS_ITS | Encounter Summary ---
Author Organization [facility] Address [facility] [place] [address] Care Team Providers Care Distribution Accounting Clerk Name Role Phone Randa Rosas APRN Primary Care Provider +1- [phone] Reason for Visit * Reason Comments Radiation Treatment Encounter Details Date Type Department Care Team (Late st Contact Info) Description 02/16/2013 5:00 PM EDT Follow-Up Radiation Oncology at [address] [phone] Jensen Wills MD Rectal cancer (Primary Dx) [...] Sign Reading Time Taken Comments Blood Pressure 117/72 02/16/2013 5:23 PM EDT Pulse 100 02/16/2013 5:23 PM EDT Temperature - - Respiratory Rate 20 02/16/2013 5:23 PM EDT Oxygen Saturation 97% 02/16/2013 5:23 PM EDT Inhaled Oxygen Concentration - - Weight 107 kg (236 lb) 02/16/2013 5:23 PM EDT Height - - Body Mass Index 37.48 02/15/2013 2:30 PM EDT documented in this encounter Progress Notes * Jensen Wills MD - 02/16/2013 5:46 PM EDT ON TREATMENT VISIT: DATE:02/06/2013 PATIENT STATUS: The patient presented with diarrhea [...] of the chest abdomen and pelvis in [place] was read out as completely negative. The patient deniesrectal bleeding. He has persistent perineal heaviness with difficulty in moving his bowels. He has no urinary symptoms. The patient will require abdominoperineal resection. He is very apprehensive about a permanent colostomy. The patient will benefit from neoadjuvant chemoradiation prior to surgical resection . Neoadjuvant chemoradiation will improve his local control. According to The [place] Rectal Cancer trial group Thefive-year cumulative incidence [...] p 4500 01/19 to DOSE to DATE 3780: cGy in 21 FX RADIATION TREATMENT IMAGING: matches original approved images/bz ON TREATMENT EVALUATION: MEDICAL: justin-anal irritation PHYSICAL: 0 AIDS Rx for Pyridium 200 mg bid Drink Cran or pom juice Adolfo's cream to irritatsation: LABS : TOXICITY:0 REFER TO NURSES UPDATED NOTES RESPONSE TO TREATMENT: good MANAGEMENT PLAN: CONTINUE TREATMENT PLANNED: XX CHANGE TREATMENT HOLD TREATMENT STOP TREATMENT Discussion time with patient (face to face)15 min. documented in this encounter Plan of Treatment Not on file documented as of this encounter Visit Diagnoses Diagnosis Rectal cancer- Primary Malignant neoplasm of rectum documented in this encounter Care Teams Distribution Accounting Clerk Relationship Specialty Start Date End Date Randa Rosas APRN [address] [place] [address] PCP - General 12/29/12 04/16/22 documented as of this encounter
--- OUTSIDE RECORDS SUMMARY | 2024-11-18 17:01 | XMS_ITS | Encounter Summary ---
Author Organization [facility] Address [facility] [place] [address] Care Team Providers Care Sterile Instrument Technician Name Role Phone Randa Rosas APRN Primary Care Provider +1- [phone] Reason for Visit * Reason Comments Chemotherapy Encounter Details Date Type Department Care Team (Jorge st Contact Info) Description 02/08/2013 4:00 PM EDT Office Visit Hematology Oncology at [address] [phone] CLINIC, DR OQUENDO HEM/ONC Rectal cancer (Primary [...] Progress Notes * Miriam Dubois RN - 02/09/2013 10:37 AM EDT TIME TREATMENT STARTED: 1530 TIME TREATMENT ENDED: 1645 Reg Emmanuelle Salazar, 57 y.o. male with diagnosis of rectal cancer is here for chemotherapy infusion of 5-fu though portable pump. PROTOCOL: no CYCLE: concurrent, continuous infusion S: Pt. offers no complaints at this time. O: Chemotherapy orders independently verified for correct drug name, route and dosage per patient'sheight, weight and BSA by Miriam Dubois RN. Pump running appropriately upon patient leaving [...] rectum documented in this encounter Care Teams Sterile Instrument Technician Relationship Specialty Start Date End Date Randa Rosas APRN [address] [place] [phone] PCP - General 12/29/12 04/16/22 documented as of this encounter
--- OUTSIDE RECORDS SUMMARY | 2024-11-18 17:01 | XMS_ITS | Encounter Summary ---
Author Organization Replaced By [facility] Address [facility] [place] [address] Care Team Providers Care Special Shopper Name Role Phone Randa Rosas APRN Primary Care Provider +1- [phone] Reason for Visit * Reason Comments Rectal Cancer Encounter Details Date Type Department Care Team (Late st Contact Info) Description 03/08/2013 3:30 PM EDT Follow-Up Hematology Oncology at [address] [phone] Nas Dobbs MD Rectal cancer (Primary Dx) [...] Reading Time Taken Comments Blood Pressure 110/72 03/08/2013 3:16 PM EDT Pulse 84 03/08/2013 3:16 PM EDT Temperature 36.7 ??C (98.1 ??F) 03/08/2013 3:16 PM ED T Respiratory Rate 16 03/08/2013 3:16 PM EDT Oxygen Saturation 97% 03/08/2013 3:16 PM EDT Inhaled Oxygen Concentration - - Weight 108 kg (238 lb) 03/08/2013 3:16 PM EDT Height 169 cm (5' 6.54) 03/08/2013 3:16 PM EDT Body Mass Index 37.8 03/08/2013 3:16 PM EDT documented in this encounter Progress Notes * Nas Dobbs MD - 03/08/2013 3:41 PM EDT Diagnosis: Invasive adenocarcinoma of the [...] excluded. Subjective: Reg is here today week six infusional 5-fluorouracil concurrent with his radiation therapy in the treatment of his rectal cancer.his hands and feet are getting better with only a little bit of peeling remaining on his hands. He's been back at work now full-time without difficulty. He has a surgeryfollowup scheduled for the end of the month and his tumor has markedly shrunk although not completely resolved on rectal exam done and radiation oncology last week. We discussed post surgery adjuvanttreatment with 8 cycles of FOLFOX. We discussed long-term followup of rectal cancer as well. Past medical history and social history [...] nodes normal Neurologic: Normal Lab today Is reviewed. White count is 7.49 hemoglobin 12 hematocrit 35% and platelet count 278 CMP shows a calcium of 8.3 a glucose of 159 creatinine of 0.8 an ALP of 135 and normal liver tests. Assessment/Plan: Reg has a low rectal cancer. He has finished his neoadjuvant chemoradiation therapy and has shown a good tumor response although on exam still had a residual 2 cm rectal mass. He is scheduled to be restaged by surgery and to go for what is probably going to be a A&P resection. Considering his initial staging studies it is likely we will consider adjuvant chemotherapy with FOLFOX for 8 cyclesafter he is recovered from his surgery. We'll make arrangements to see him in 6 or 7 weeks from nowwhich should give him some time to heal up after his surgery. documented in this encounter Procedure Notes * Provider, Scanning - 03/08/2013 2:52 PM EDTAssociated Order(s): SCAN DOC: LAB documented in this encounter Plan of Treatment Not on file documented as of this encounter Procedures Procedure Name Priority Date/Time Associated Diagnosis Comments LAB SCAN 03/08/2013 2:52 PM EDT documented in this encounter Results * SCAN DOC: LAB (03/08/2013 2:52 PM EDT) Narrative 03/08/2013 2:52 PM EDT Procedure Note Provider, Scanning - 03/08/2013 2:52 PM EDT Scanning Provider MEDIA MGR SCAN EXT O RDR/RSLT documented in this encounter Visit Diagnoses Diagnosis Rectal cancer- Primary Malignant neoplasm of rectum documented in this encounter Care Teams Special Shopper Relationship Specialty Start Date End Date Randa Rosas APRN [address] [place] [address] PCP - General 12/29/12 04/16/22 documented as of this encounter
--- OUTSIDE RECORDS SUMMARY | 2024-11-18 17:01 | XMS_ITS | Encounter Summary ---
Author Organization Formerly [facility] Address [facility] [place] [address] Care Team Providers Care Medical Records Field Technician Name Role Phone Randa Rosas APRN Primary Care Provider +1- [phone] Reason for Visit * Reason Comments On Treatment Visit Encounter Details Date Type Department Care Team (Late st Contact Info) Description 02/23/2013 3:15 PM EDT Follow-Up Radiation Oncology at [address] [phone] Jensen Wills MD Radiation dermatitis (Primary Dx) Discharge Disposition: Home Social History [...] Sign Reading Time Taken Comments Blood Pressure 134/73 02/23/2013 3:00 PM EDT Pulse 100 02/23/2013 3:00 PM EDT Temperature 36.8 ??C (98.2 ??F) 02/23/2013 3:00 PM ED T Respiratory Rate - - Oxygen Saturation 98% 02/23/2013 3:00 PM EDT Inhaled Oxygen Concentration - - Weight 105 kg (231 lb 8 oz) 02/23/2013 3:00 PM E DT Height - - Body Mass Index 36.77 02/22/2013 3:05 PM EDT documented in this encounter Progress Notes * Jensen Wills MD - 02/23/2013 4:11 PM EDT ON TREATMENT VISIT: DATE:02/23/2013 PATIENT STATUS: Invasive adenocarcinoma of the rectum extending 10 [...] MeV p e TOTAL DOSE Treatment Dates A-D Pelvis 4 field 180 25 p 4500 01/19 to 02/22/13 PTV 2 A1B1D1 3-D 180 3 p 540 02/23 to DOSE to DATE 4680: cGy in 26 FX RADIATION TREATMENT IMAGING: matches original approved images/bz ON TREATMENT EVALUATION: MEDICAL: justin-anal irritation PHYSICAL: 0 AIDS Rx for Pyridium 200 mg bid Drink Cran or pom juice Slurry + soaks cream to irritatation: LABS : TOXICITY:0 REFER TO NURSES UPDATED NOTES RESPONSE TO TREATMENT: good MANAGEMENT PLAN: CONTINUE TREATMENT PLANNED: XX CHANGE TREATMENT HOLD TREATMENT STOP TREATMENT Discussion time with patient (face to face)15 min. 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
--- OUTSIDE RECORDS SUMMARY | 2024-11-18 17:01 | XMS_ITS | Encounter Summary ---
Author Organization [facility] Address [facility] [place] [address] Care Team Providers Care Equipment Operator Name Role Phone Randa Rosas APRN Primary Care Provider +1- [phone] Reason for Visit * Reason Comments Rectal Cancer Encounter Details Date Type Department Care Team (Late st Contact Info) Description 02/22/2013 3:00 PM EDT Follow-Up Hematology Oncology at [address] [phone] Nas Dobbs MD Rectal cancer (Primary Dx) [...] Reading Time Taken Comments Blood Pressure 121/74 02/22/2013 3:05 PM EDT Pulse 98 02/22/2013 3:05 PM EDT Temperature 36.6 ??C (97.9 ??F) 02/22/2013 3:05 PM ED T Respiratory Rate 20 02/22/2013 3:05 PM EDT Oxygen Saturation 98% 02/22/2013 3:05 PM EDT Inhaled Oxygen Concentration - - Weight 104.6 kg (230 lb 8 oz) 02/22/2013 3:05 PM EDT Height 169 cm (5' 6.54) 02/22/2013 3:05 PM EDT Body Mass Index 36.61 02/22/2013 3:05 PM EDT documented in this encounter Progress Notes * Nas Dobbs MD - 02/22/2013 3:03 PM EDT Diagnosis: Invasive adenocarcinoma of the [...] in the treatment of his rectal cancer. His radiation treatments will be done this Thursday.over the past week[place]land has had to take off work because of sore feet. He has a blister on the side of his big toe on his right foot but he actually does not have any erythema or blistering on the bottoms of his feet. They do feel sore though especially after he spent on his feet for a while. He's not having any hand problems no mouth sores no gastroenteritis no abdominal cramping or diarrhea. He is taking regular lax atives because he does have a little bit of rectal soreness from his treatment. Otherwise review systems is negative and he feels well overall. We spent some time talking about long-term planning based on his pathology and he does have an appointment with surgeon in a few weeks at [facility]. Past medical history and social history are reviewed and unchanged from last week except for him taking off of work. Review of Systems Constitutional: Negative for [...] unlabored Chest Wall: No tenderness or deformity there is a circular round red area overlying the port corresponding to the area that the biopatch was on. Heart: Regular rate and rhythm, S1, S2 normal, no murmur, rub or gallop Abdomen: Soft, non-tender, bowel sounds active all four quadrants, no masses, no organomegaly Extremities: Extremities normal, atraumatic, no cyanosis or edema Pulses: 2+ and symmetric Skin: Skin color, texture, turgor normal, no rashes or lesions his feet are closely examined and there's no her redness or blistering at the bottoms of the feet but the site of the right great toe there is a raised blister. There is no evidence of infection with this. Lymph nodes: Cervical, supraclavicular, and axillary nodes normal Neurologic: Normal Lab today Is reviewed. White count is 8.2 hemoglobin 13.1 hematocrit 38.2 and the count is 332 CMP is normal except for glucose of 427. Creatinine is normal at 0.9 his electrolytes are normal except for some pseudohyponatremia from his elevated glucose, he admits to having some ice cream immediately before having his blood drawn Assessment/Plan: Reg has a low rectal cancer. He is near the end of his chemotherapy and is starting to have secondary effects from treatment. He's clinically hydrated and I think his sugar will go down if he watches his diet a bit and he will try to do better on that. As far as his hand-foot syndrome I think it is mild and early he will tolerate the last 4 days of treatment. He will practice good foot care and will followup with him in a couple weeks with lab to make sure things have improved prior to surgery. documented in this encounter Plan of Treatment Not on file documented as of this encounter Visit Diagnoses Diagnosis Rectal cancer- Primary Malignant neoplasm of rectum documented in this encounter Care Teams Equipment Operator Relationship Specialty Start Date End Date Randa Rosas APRN [address] [place] [address] PCP - General 12/29/12 04/16/22 documented as of this encounter
--- OUTSIDE RECORDS SUMMARY | 2024-11-18 17:01 | XMS_ITS | Encounter Summary ---
Author Organization Formerly [facility] [place] [address] Care Team Providers Care Sliver Lap Tender Name Role Phone Randa Rosas APRN Primary Care Provider +1- [phone] Reason for Visit * Reason Comments Rectal Cancer Encounter Details Date Type Department Care Team (Late st Contact Info) Description 04/06/2013 11:00 AM EDT Follow-Up [place] [address] Michelle Cox PA [address] [place] [address] Pre-op examination (Primary Dx) Social History Tobacco Use Types [...] as of this encounter Progress Notes * Michelle Cox PA - 04/06/2013 12:26 PM EDT Colorectal Surgery Pre-Operative H & P History: 12/30/12 CT [facility] - [facility] 01/06/13 - Rectal mass biopsies at 5 cm: Invasive adenocarcinoma. 01/10/13 [place] report pending but T3-T4 - threatened CRM anteriorly (prostate), Impression 1. Enhancing rectal mass, consistent with known rectal carcinoma, which extends from the anal vergeto the rectosigmoid junction. This mass contacts the mesorectal fascia with possible involvement of the posterior prostate gland, making the lesion T3 or T4. 2. Multiple local/regional lymph nodes. Lymphatic involvement can not be excluded. 02/25/2013 finished chemorads 03/24/13 = Last seen in clinic, doing well 4 weeks s/p chemorads 04/27/13 = Date for Surgery (future) HPI:Reg Salazar is a pleasant 57 y.o. male with a recent diagnosis of rectal cancer who presentsto clinic today for a pre-operative history and physical. He is accompanied by his fiance'. He was last seen in clinic on 03/25/2013. He reports no changes to his health since that visit. He has returned to work. He is eating well. He has lost a few pounds since his last visit. Overall, his weight is down about 20 pounds since the rectal cancer was diagnosed. He still tends to tire easily, but that is improving with time. He is moving his bowels 3 to 5 times a day, soft consistency, formed, no blood. No pain during the BM, but he does experience pain in the rectal area following the BM. He reports that he typically feels good when he wakes [...] ago; no longer feels he needs it). Past medical history: Patient Active Problem List Diagnoses Code ??? Rectal cancer 154.1 ??? Diabetes mellitus 250.00 ??? Obesity (BMI 35.0-39.9 without comorbidity) 278.00 Past surgical history: Past Surgical History Procedure Date ??? Colonoscopy 12/17/2012 discovered rectal invasive adenocarcinoma ??? Nasal polyp surgery ??? Tonsillectomy and adenoidectomy ??? Vasectomy ??? Pilonidal cyst excision Allergies: PCN (rxn: hives, age 8) Medications: MVI Advil Glocuphage Janumet Glucotrol Viagra Lipitor Percocet Lisinopril Social history: reports that he quit smoking about 16 years ago. He does not have any smokeless tobacco history on file. He reports that he drinks alcohol. He reports that he uses illicit drugs. Lastdrink was 3 to 4 weeks ago. Family medical history: Family History Problem Relation Age of Onset ??? Diabetes Father no famly h/o cnancer Review of Systems as above, otherwise: Constitutional: Positive for mild fatigue. Negative for fever, chills, activity change and unexpected weight change. HEENT: Negative for sore throat, mouth sores and trouble swallowing. Eyes: Negative. Respiratory: Negative for cough, shortness of breath and wheezing. Cardiovascular: Negative for chest pain, palpitations and leg swelling. Gastrointestinal: Negative for nausea, vomiting, abdominal pain, diarrhea, constipation and abdominal distention. Genitourinary: Negative for dysuria and difficulty urinating. Skin: Negative. Neurological: Negative. Hematological: Negative for adenopathy. Physical Exam: There were no vitals taken for this visit. There is no height or weight on file to calculate BMI. Gen: NAD, very pleasant young man HEENT: Neck supple, no cervical or supraclicavular adenopathy, no carotid bruit appreciated Pulm: CTAB, no crackles/wheeze, Mediport in place on R upper chest Card: Regular rate/rhythm, no m/r/g, no JVD Abd: Non-distended, soft, non-tender to palpation Ext: WWP x 4, no edema Rectal Exam: deferred Impression/Plan: Surgery has been scheduled for April 272012. Prior to today's, the patient met with Plastics, who will be performing the plastics flap to prevent perineal wound dehiscence and a chronic sacral sinus. He will also be meeting with Enterostomal Therapy today for stoma siting. He will also have an MRI and CT chest, abdomen and pelvis today. Otherwise, ready to proceed with surgery asplanned. Patient discussed with Dr. Bobby Hills, and this note reflects our close collaboration and agreement. Michelle Cox PA-C Division of Colon & Rectal Surgery [facility] [phone] documented in this encounter Plan of Treatment Not on file documented as of this encounter Visit Diagnoses Diagnosis Pre-op examination- Primary Preoperative examination, unspecified documented in this encounter Care Teams Sliver Lap Tender Relationship Specialty Start Date End Date Randa Rosas APRN [address] [place] [address] PCP - General 12/29/12 04/16/22 documented as of this encounter
--- OUTSIDE RECORDS SUMMARY | 2024-11-18 17:01 | XMS_ITS | Encounter Summary ---
Author Organization [facility] Address [facility] [place] [address] Care Team Providers Care [employer] Truck Driver Name Role Phone Randa Rosas APRN Primary Care Provider +1- [phone] Reason for Visit * Reason Comments Rectal Cancer Encounter Details Date Type Department Care Team (Late st Contact Info) Description 02/01/2013 3:00 PM EST Follow-Up Hematology Oncology at [address] [phone] Nas Dobbs MD Rectal cancer (Primary Dx) [...] Sign Reading Time Taken Comments Blood Pressure 125/82 02/01/2013 3:12 PM EST Pulse 92 02/01/2013 3:12 PM EST Temperature 36.5 ??C (97.7 ??F) 02/01/2013 3:12 PM ES T Respiratory Rate 18 02/01/2013 3:12 PM EST Oxygen Saturation 98% 02/01/2013 3:12 PM EST Inhaled Oxygen Concentration - - Weight 110.2 kg (243 lb) 02/01/2013 3:12 PM EST Height 169 cm (5' 6.54) 02/01/2013 3:12 PM EST Body Mass Index 38.59 02/01/2013 3:12 PM EST documented in this encounter Progress Notes * Nas Dobbs MD - 02/01/2013 4:22 PM EST Diagnosis: Invasive adenocarcinoma of the [...] excluded. Subjective: Reg is here today week three infusional 5-fluorouracil concurrent with his radiation therapy in the treatment of his rectal cancer. He is having more rectal soreness but is using barrier creams religiously and he says they are working. 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 He's not having any stomatitis or other symptoms Past medical history and social history are [...] Neurologic: Normal Lab today shows white count 7.56 hemoglobin 13.3 and platelet count is 248,000 ANC is 5.4 CMP is normal except for glucose of 234 correspondingly low sodium of 130 potassium 3.9 creatinine 0.9 and liver tests are normal. Assessment/Plan: Reg has a low rectal cancer. Clinically he is improving but now starting to have some of the localeffects from treatment.The lab is fine for continued treatment. We'll go ahead with week 3 today and see him back in a week with a CBC and CMP. We refilled his Percocet today. He knows to let us knowif any other issues or problems develop in the interim documented in this encounter Procedure Notes * Provider, Scanning - 02/01/2013 3:14 PM ESTAssociated Order(s): SCAN DOC: LAB documented in this encounter Plan of Treatment Not on file documented as of this encounter Procedures Procedure Name Priority Date/Time Associated Diagnosis Comments LAB SCAN 02/01/2013 3:14 PM EST documented in this encounter Results * SCAN DOC: LAB (02/01/2013 3:14 PM EST) Narrative 02/01/2013 3:14 PM EST Procedure Note Provider, Scanning - 02/01/2013 3:14 PM EST Scanning Provider MEDIA MGR SCAN EXT O RDR/RSLT documented in this encounter Visit Diagnoses Diagnosis Rectal cancer- Primary Malignant neoplasm of rectum documented in this encounter Care Teams [employer] Truck Driver Relationship Specialty Start Date End Date Randa Rosas APRN [address] [place] [phone] PCP - General 12/29/12 04/16/22 documented as of this encounter
--- OUTSIDE RECORDS SUMMARY | 2024-11-18 17:01 | XMS_ITS | Encounter Summary ---
Author Organization [facility] Address [facility] [place] [address] Care Team Providers Care Employee Benefits Attorney Name Role Phone Randa Rosas APRN Primary Care Provider +1- [phone] Reason for Visit * Reason Onset Date Comments Medication Refill 05/05/2013 Encounter Details Date Type Department Care Team (Late st Contact Info) Description 05/05/2013 Refill Hematology Oncology at [address] [phone] Sunitha Matias RN Rectal cancer (Primary Dx) Social History [...] rectum documented in this encounter Care Teams Employee Benefits Attorney Relationship Specialty Start Date End Date Randa Rosas APRN [address] [place] [phone] PCP - General 12/29/12 04/16/22 documented as of this encounter
--- OUTSIDE RECORDS SUMMARY | 2024-11-18 17:01 | XMS_ITS | Encounter Summary ---
[facility] [place] [address] Care Team Providers Care Reel Blade Bender Furnace Tender Name Role Phone Randa Rosas APRN Primary Care Provider [phone]- [phone] Encounter Details Date Type Department Care Team (Late st Contact Info) Description 05/11/2013 7:39 AM EDT Anesthesia Event [place] [id number] Michelle Woodruff MD Thoma, Elisabeth K, CRNA Anesthesia Record Procedure Summary Procedure Name Responsible Anesthesiologist Anesthesia Start Time Anesthesia Stop Time @LAPAROSCOPIC PROCTECTOMY, COMPLETE, APR W COLOSTOMY (WRVU 33) (Abdomen) Michelle Woodruff MD 05/11/13 0739 05/11/13 2232 Events Date Time Event Comment 05/11/2013 0636 0739 Start 0743 AN Verify 0743 An Start Data [address] segments 0.8 /0.[address] 0.9/0.4 0753 An Induction 0753 An Intubation [address] segments 0.9 /0.4 0809 Anesthesia Ready [address] segments 0.9 /0.[address] segments 0.8 /0.[address] segments 0.7 /0.4 0853 Quick Note abg's sent pH 7 .384, pCO2 42, pO2 145.2, HCO3 24.5, BE -0.5 tHb 12.9, Na+133, K+ 4.12, Ca++ 1.12, Cl- 1.2, Glucose [address] segments 0.8 /0.5 0905 Break/Relief In 0908 Procedure Start [address] segments 0.9 /0.5 0917 Quick Note Insufflation. 0925 Break/Relief Out [address] segments 0.8 /0.[address] segments 0.8 /0.3 0948 Quick Note [address] segments 0.8 /0.3 1003 Quick Note ABGs drawn and sent. PH 7.30, pCO2 44.3, pO2 97.2, HCO3, 21.7, BE -4.7, tHb 13.7m, Na+ 132.,7, K+ 5.14, Ca++ 1.09, Cl-102, Glucose 170 1010 Quick Note K[place]cha in. Glu cose noted at 155. Gas reviewed. Positioning OK, but per surgeon request, steep T-tash and high abdominal inflation pressures. 1015 Quick Note Insufflation pr essure brought down to recruit lungs and reduce et CO2 [address] 0.7/0.[address] segments 0.7 /0.[address] segments 0.7 /0.[address] segments 0.7 /0.3 1105 Quick Note abgs 7.343, , 4 0.7, 119.7, 212.6, -4.1, Na 132.9, K 4.62, ca 1.15, cl 101, glucose [address] segments 0.7 /0.[address] segments 0.7 /0.4 abgs 7.33, 50, 101.2, 25.8 -0.2, glucose 227. Attending notified of values, recruitment measures taken 1141 Quick Note Double checked ETT position - very good bilateral breath sounds, equivalent, ETT is 22 at teeth, cuff at substernal notch. - Kotecha 1149 Quick Note Discussed O2, V ent concerns with surgeon, will follow. Currently able to adequately oxygenate and ventilate with acceptable pressures. Tube placement re-confirmed, recruitment done. -Kotecha 1149 Quick Note 1150 Break/Relief In K[place] in, throughout. In for lunch break. 1200 Quick Note [address] segments 0.7 /0.4 1203 Quick Note No eye edema no darshana. 1211 Quick Note Pt now only in mild trendelenburg, eyes are notable for absence of any apparent edema. [place] [address] segments 0.7 /0.4 1219 Break/Relief Out [address] segments 0.7 /0.[address] 0.8/0.[address] segments 0.6 /0.3 abg's sent 1309 Quick Note Abg results: pH 7.358, pCO2 44.9, pO2 1.2.1, HCO3 24.7, BE -0.8, tHb 13.7, Na 132.8, K 4.97, Ca 1.10, Cl 101, glucose 228 -et CO2 39 when drawn. Insulin drip increased to 1unit/hr [address] segments 0.7 /0.4 1325 Quick Note Convert to hand assist laparoscopic/open [address] segments 0.7 /0.[address] segments 0.7 ./0.5 1350 Break/Relief In [address] segments 0.7 /0.4 1405 Break/Relief Out [address] segments 0.6 /0.[address] 0.8/0.[address] 0.7/0.[address] 0.7/0.4 1512 Break/Relief In JAMIE Emery MCFARLAND ES, AUDIOVISUAL TECH [address] 0.7/0.4 1524 Quick Note BG [address] 0.8/0.5 1531 Break/Relief Out 1536 Quick Note Arterial line d ampening and not able to draw labs, new arterial line started right radial site per Leidy Carr MD [address] 0.8/0.4 1555 Quick Note A new a-line wa s placed on the right. Difficulty drawing back on left with frequent dampening. Untucked Right arm and placed a-line. Bruno [address] 0.8/0.[address] 0.8/0.3 1605 Quick Note Abgs sent 7.445 , 33.0 130.4, 22.2 Be -1.9, tHb 13.6, Na 132.8, K 4.09, Ca 1.08, Cl 102 glucose [address] 0.7/0.[address] 0.8/0.[address] segments 0.7 /0.[address] segments 0.6 /0.3 1706 Quick Note abg's sent pH 7 .44, pCO2 32.2, pO2 123.5, HCO3 21.4 BE -2.8, tHb 13.2, Na 132.6, K 4.03, Ca 1.07, Cl 103, glucose [address] 0.6/0.[address] segments 0.8 /0.4 1742 Quick Note Surgeon request s 1 liter fluid to be given and methylene blue given after [address] segments 0.7 /0.[address] segments 0.7 /0.4 1810 Quick Note Abgs sent 7.438 , 35.3, 144.8, 23,3, BE -0.9, thb 12.6, Na 132, K 4.1, Ca 1.05, Cl 103 glucose [address] 0.7/0.4 183 Quick Note Report off to Emery Muhammad CRNa 1834 Quick Note Brown urine not ed Surgeon aware Increase fluids 2104 an reg now hgb 11.1 2205 Extubation/LMA Out 2205 an stop data 221 Transport Stabel to PACU with o2 Nasal airway HOB up 2232 Stop Meds Name Total Midazolam 2 mg fentaNYL 500 mcg lidocaine IV 100 mg propofol 200 mg PHENYLephrine 160 mcg Ondansetron 8 mg Neostigmine 3 mg Glycopyrrolate 0.5 mg metroNIDAZOLE (FLAGYL) 500 mg/100 mL 3,5 00 mg levofloxacin in D5W (LEVAQUIN) 750 mg/15 0 mL 750 mg 750 mg Cisatracurium 56 mg succinylcholine 100 mg HYDROmorphone 6 mg insulin regular 1 units/mL (standard Noah D greater than 5kg) 50mL infusion 9.64 Units metoprolol (LOPRESSOR) injection 10 mg methylene blue 1 mL vecuronium 6 mg lactated ringers infusion 1,000 mL 0 mL lactated ringers 4,350 mL Hetastarch 6% 500 mL * Agents Name O2 Air Desflurane (et) Isoflurane (et) * Blood No blood administrations on file. Lines, Drains, and Airways Type Details Placement Removal Colostomy 05/11/13; 2040; descending/sigmoid colostomy; 1 3/4 05/11/132040 by Charles Christensen, RN (RETIRED) Peripheral IV Line - Single Lumen 01/10/13; 0659; 08/24/17; 0844 01/10/13 0659 by Nan Kang 08/24/17 0844 by Swetha Beverly RN (RETIRED) Power Port 01/10/13; 0930; Sasha st; Right; Dignity power port, Lot number: [id number], 8 fr; 10/28/13; 0846 01/10/13 0930 by Maria Ines Prieto RN 10/28/13 0846 by Theo Rojas RN Incision 05/11/13; leg; 01/28/22; 0700 (not present) 05/11/13 0000 by Leti aMndujano RN 01/28/22 0700 by Lis Brennan RN (RETIRED) Peripheral IV Line - Single Lumen 05/11/13; 0707; 05/18/13; 1704 05/11/13 0707 by Mac Ocampo RN 05/18/13 1704 by Sharad Bustillos RN (RETIRED) Arterial LIne 05/11/13; 0753; 05/12/13; 0028 05/11/13 0753 by Lizette Barone, AUDIOVISUAL TECH 05/12/13 0028 by Elias Porter RN (RETIRED) Non-Surgical Airway Mask Ventilation: Easy (1); ETT Type: Cuffed; ETT Size: 7 mm; Removal Date: 05/11/13; Removal Time: 220405/11/13 0753 by Lizette Barone, AUDIOVISUAL TECH 05/11/13 220 by Eli Muhammad CRNA Ureteral Catheter 05/11/13; 0815; drainage bag to dependent drainage; 05/13/13 (by ); 0812 (unknown) 05/11/13 0815 by Hortencia Sanchez RN 05/13/13 0812 by Rachel Naranjo, GET Urethral Catheter 05/11/13; 0820; indwelling double lumen catheter (#16 Emily catheter); latex; 16; inserted (clear returns-placed by Dr Adan); 1; leg bag to dependent drainage; 05/14/13 05/11/13 0820 by Hortencia Sanchez RN 05/14/13 0000 by Mercy Marcum RN Ureteral Catheter 05/11/13; 0820; drainage bag to dependent drainage; 05/13/13 (unknown); 0812 (by ) 05/11/13 0820 by Hortencia Sanchez RN 05/13/13 0812 by Rachel Naranjo RN Incision 05/11/13; 0830; abdo men (trocar sites x 4); 01/28/22; 0700 (not present) 05/11/13 0830 by Hortencia Sanchez RN 01/28/22 0700 by Lis Brennan RN Incision 05/11/13; 1534; perirectal; 01/28/22; 0700 (not present) 05/11/13 1534 by Cherri Bryant RN 01/28/22 0700 by Lis Brennan RN (RETIRED) Arterial LIne 05/12/13; 2218 05/11/13 1555 by 05/12/13 221 by Jo Wilder RN Drain/Device Site 05/11/13; 2032; Righ t; lower quadrant; collapsible closed device; 05/17/13; 1000 05/11/132032 by Charles Christensen RN 05/17/13 1000 by Leti Mandujano RN Drain/Device Site 05/11/13; 2049; Left ; thigh; collapsible closed device; 01/28/22; 0700 (NOT PRESENT) 05/11/132049 by Charles Christensen RN 01/28/22 0700 by Lis Brennan RN (RETIRED) Peripheral IV Line - Single Lumen 05/18/13; 1704 05/11/13 2240 by 05/18/13 1704 by Sharad Bustillos RN documented in this encounter Social History [...] OR Notes * Anesthesia Postprocedure Evaluation - Michelle Woodruff MD - 05/12/2013 7:30 AM EDT Patient: Reg Salazar Procedure(s) Performed: Procedure(s): @LAPAROSCOPIC PROCTECTOMY, COMPLETE, APR W COLOSTOMY @LYMPHADENECTOMY,ABDOMINAL,REGIONAL,MULTIPLE NODES @EXCLUSION OF SMALL INTESTINE FROM PELVIS FLAP, MYOCUTANEOUS OR FASCIOCUTANEOUS, LOWER EXTREMITY ADJ.TISSUE TRANSFER, REARRANGEMENT, 10.1 TO 30 SQ.CM, LEGS CYSTO, STENT PLACEMENT INTRAOP, TEMPORARY @OMENTAL FLAP, INTRA-ABDOMINAL Actual Anesthetic: general, regional Patient location: PACU Post-op pain: Adequate analgesia Post-op nausea: no nausea or vomiting Last Vitals: Filed Vitals: 05/12/13 0400 BP: 118/68 Pulse: 73 Temp: Resp: Post-op cardiovascular and respiratory status: is stable Level of consciousness: awake, alert and oriented Complications: no apparent complications and tolerated the procedure well Fluid Status: normal * Anesthesia Procedure Notes - Brandi Carr MD - 05/11/2013 8:58 AM EDT Associated Order(s): ANESTHESIA BLOCK Procedure: Anesthesia Block Block: Post-op Pain Control, other Start time: 05/11/2013 8:05 AM End time: 05/11/2013 8:20 AM Indication/Prep Position: supine Prep: chlorhexidine Laterality: bilateral Injection Needle Length: 10 cm Gauge: 22 Needle Type: P-[id number]-roqtk Medication injection made incrementally with aspirations. Nerve infiltration solution through a needle Ropivicaine 0.2% 55 mL Additional Notes TAPS block Prep, drape, hygiene. Left TAPS between subcostal and iliac crest. Good view. 30 cc of 0.2% Ropi, live. Bruno performing Right TAPS. Identical procedure. 25 cc of 0.2% Ropi. Moll Performing Kotecha Performed by: Bruno/Tiffani Supervising Attending/Fellow: Bruno ~~~~~~~~~~~~~~~~~~~~~~~~~~~~~~~~~~~~~~~~~~~~~~~~~~~~~~~~~~~~ * Anesthesia Preprocedure Evaluation - Brandi Carr MD - 05/11/2013 6:13 AM EDT Pre-Anesthesia Evaluation for: Reg Salazar a 57 y.o. male. Procedure(s): @LAPAROSCOPIC PROCTECTOMY, COMPLETE, APR W COLOSTOMY @MOBILIZATION OF SPLENIC FLEXURE @LYMPHADENECTOMY,ABDOMINAL,REGIONAL,MULTIPLE NODES @EXCLUSION OF SMALL INTESTINE FROM PELVIS FLAP, MYOCUTANEOUS OR FASCIOCUTANEOUS, LOWER EXTREMITY ADJ.TISSUE TRANSFER, REARRANGEMENT, 10.1 TO 30 SQ.CM, LEGS CYSTO, STENT PLACEMENT INTRAOP, TEMPORARY Patient Active Problem List Diagnoses ??? Diabetes mellitus ??? Obesity (BMI 35.0-39.9 without comorbidity) ??? Rectal cancer Past Medical History Diagnosis Date ??? ED [...] adenoidectomy ??? Vasectomy ??? Pilonidal cyst excision History Substance Use Topics ??? Smoking status: Former Smoker Quit date: 11/30/1996 ??? Smokeless tobacco: Not on file ??? Alcohol Use: Yes beer on weekends - not recently Allergies Allergen Reactions ??? Penicillins RASH Medications: MAR and/or home medications have been reviewed. Physical Exam: There were no vitals filed for this visit. There is no height or weight on file to calculate BMI. Airway Assessment: Mallampati: II TM distance: >3 FB Neck ROM: full Cardiovascular Assessment: cardiovascular exam normal Pulmonary Assessment: pulmonary exam normal Dental Assessment: [facility] Assessment: Patient is wearing No contact(s). IV access: Peripheral line Other exam findings: Mediport- do not access. Anesthesia Plan: ASA 3 general and regional, with a(n) intravenous induction Obese diabetic with hypertension, rectal cancer here for A/P resection, lap proctectomy. Glucose 183. Other labs noted. Plan - GETA, Arterial line, post-induction TAPS block. Due to anticoagulation intention, epidural unfortunately not feasible. Control of glucose indicated. Additional peripheral access. WIll not access mediport given clot status. Lovenox has been held appropriately, along with other meds. I discussed the risks of GA with the patient. These include but are not limited to nerve damage from positioning, sore throat, dental damage, cardiopulmonary complications, nausea, vomiting, allergicreactions, and pain. This risk list is by no means comprehensive and the patient understands that. I explicitly informed the patient that rare and serious complications can arise during general anesthesia, related to a variety of factors. No guarantees of any particular outcome were given or even implied. The patient has no further questions, understands the risks, and agrees to proceed with the anesthestic. Discussed possible post-op intubation. Anticipate lengthy procedure. Bruno Informed Consent: Anesthetic plan and risks discussed with patient. Use of blood products discussed with patient whom consented to blood products. Plan discussed with AUDIOVISUAL TECH. [facility]. Assessment: documented in this encounter Miscellaneous Notes * Addendum Note - Hanny Silver - 05/20/2013 11:21 AM EDT * Addendum Note - Hanny Silver - 05/20/2013 11:20 AM EDT documented in this encounter Plan of Treatment Not on file documented as of this encounter Procedures Procedure Name Priority Date/Time Associated Diagnosis Comments ANESTHESIA BLOCK Routine 05/11/2013 8:59 AM EDT documented in this encounter Results * Anesthesia Block (05/11/2013 8:59 AM EDT) Narrative Brandi Carr MD - 05/11/2013 8:59 AM EDT Brandi Carr MD ? 05/11/2013 ??8:59 AM Procedure: ??Anesthesia Block Block: Post-op Pain Control, other Start time: 05/11/2013 8:05 AM End time: 05/11/2013 8:20 AM Indication/Prep Position: supine Prep: chlorhexidine Laterality: bilateral Injection Needle Length: 10 cm Gauge: 22 Needle Type: R-dtaip-uvdqf Medication injection made incrementally with aspirations. Nerve infiltration solution through a needle Ropivicaine 0.2% 55 mL Additional Notes TAPS block Prep, drape, hygiene. Left TAPS between subcostal and iliac crest. Good view. 30 cc of 0.2% Ropi, live. Bruno performing Right TAPS. Identical procedure. 25 cc of 0.2% Ropi. Tiffani Performing Kotecha Performed by: ??Bruno/Tiffani Supervising Attending/Fellow: ??Bruno ~~~~~~~~~~~~~~~~~~~~~~~~~~~~~~~~~~~~~~~~~~~~~~~~~~~~~~~~~~~~ Procedure Note Brandi Carr MD - 05/11/2013 8:58 AM EDT Procedure: Anesthesia Block Block: Post-op Pain Control, other Start time: 05/11/2013 8:05 AM End time: 05/11/2013 8:20 AM Indication/Prep Position: supine Prep: chlorhexidine Laterality: bilateral Injection Needle Length: 10 cm Gauge: 22 Needle Type: J-jtecn-uvmei Medication injection made incrementally with aspirations. Nerve infiltration solution through a needle Ropivicaine 0.2% 55 mL Additional Notes TAPS block Prep, drape, hygiene. Left TAPS between subcostal and iliac crest. Good view. 30 cc of 0.2%Ropi, live. Bruno performing Right TAPS. Identical procedure. 25 cc of 0.2% Ropi. Moll Performing Kotecha Performed by: Bruno/Tiffani Supervising Attending/Fellow: Bruno ~~~~~~~~~~~~~~~~~~~~~~~~~~~~~~~~~~~~~~~~~~~~~~~~~~~~~~~~~~~~ Brandi Carr MD [employer] [facility] documented in this encounter Visit Diagnoses Not on filedocumented in this encounter Administered Medications Inactive Administered Medications - up to 3 most recent administrations Medication Order MAR Action Action Date Dose Rate Site cisatracurium (NIMBEX) 2 mg/mL bolus injection (Anesthesia) PRN, Starting on Thu05/11/13 at 0753, Until Thu05/11/13 at 223, Anesthesia Intra-op, Routine Given 05/11/2013 6:30 PM EDT 4 mg Given 05/11/2013 6:15 PM EDT 4 mg Given 05/11/2013 5:20 PM EDT 2 mg fentaNYL 50mcg/mL injection PRN, Starting on Thu05/11/13 at 0753, Until Thu05/11/13 at 2232, Pain, Anesthesia Intra-op, Routine Given 05/11/2013 9:00 PM EDT 50 mcg Given 05/11/2013 8:15 PM EDT 50 mcg Given 05/11/2013 7:30 PM EDT 50 mcg glycopyrrolate (ROBINUL) injection PRN, Starting on Thu05/11/13 at 2115, Until Thu05/11/13 at 2232, Anesthesia Intra-op, Routine Given 05/11/2013 9:15 PM EDT 0.5 mg hetastarch 6% in 0.9% NaCl infusion 500 mL (HESPAN) infusion CONTINUOUS PRN, Other, Starting on Thu05/11/13 at 1935, Until Thu05/11/13 at 2232, Anesthesia Intra-op New Bag 05/11/2013 7:35 PM EDT mL HYDROmorphone (DILAUDID) injection PRN, Starting on Thu05/11/13 at 0832, Until Thu05/11/13 at 2232, Pain, Anesthesia Intra-op, Routine Given 05/11/2013 10:15 PM EDT 0.4 mg Given 05/11/2013 10:00 PM EDT 0.4 mg Given 05/11/2013 9:45 PM EDT 0.4 mg insulin regular 1 units/mL (standard Mary Jo greater than 5kg) 50mL infusion 0.5 Units/hr (rounded to 0.5 mL/hr), Intravenous, CHANGE BAG EVERY EVENING, First dose on Thu05/11/13 at 1230, Until Discontinued, Intra-Operative (Intra-Procedure) Rate/Dose Change 05/11/2013 3:15 PM EDT 1 Units/hr 1 mL/hr Rate/Dose Change 05/11/2013 2:45 PM EDT 0.75 Units/hr 0.8 mL/hr Rate/Dose Change 05/11/2013 1:10 PM EDT 1 Units/hr 1 mL/hr lactated ringers infusion 1,000 mL 1,000 mL, at 100 mL/hr, Intravenous, CONTINUOUS, Starting on Thu05/11/13 at 0630, Until Radha 05/12/13 at 0056, Day of Surgery (Day of Procedure) New Bag 05/11/2013 9:52 AM EDT mL New Bag 05/11/2013 7:39 AM EDT mL New Bag 05/11/2013 6:30 AM EDT 1,000 mLs 100 mL/hr lactated ringers infusion CONTINUOUS PRN, Starting on Thu05/11/13 at 0753, Until Thu05/11/13 at 2232, Anesthesia Intra-op New Bag 05/11/2013 6:00 PM EDT mL New Bag 05/11/2013 4:45 PM EDT mL New Bag 05/11/2013 7:53 AM EDT mL levofloxacin in D5W (LEVAQUIN) 750 mg/150 mL [...] 05/11/2013 8:10 AM EDT 750 mg lidocaine (PF) (XYLOCAINE) 100 mg/5 mL (2 %) injection PRN, Starting on Thu05/11/13 at 0753, Until Thu05/11/13 at 2232, Anesthesia Intra-op, Routine Given 05/11/2013 7:53 AM EDT 100 mg methylene blue 1 % injection PRN, Starting on Thu05/11/13 at 1800, Until Thu05/11/13 at 2232, Anesthesia Intra-op, Routine Given 05/11/2013 6:00 PM EDT 1 mL metoprolol (LOPRESSOR) injection PRN, Starting on Thu05/11/13 at 1700, Until Thu05/11/13 at 2232, High Blood Pressure, Anesthesia Intra-op, Routine Given 05/11/2013 10:15 PM EDT 5 mg Given 05/11/2013 6:30 PM EDT 1 mg Given 05/11/2013 6:19 PM EDT 2 mg metroNIDAZOLE (FLAGYL) 500 mg/100 mL 1 dose, Starting on Thu05/11/13 at 0717, Until Thu05/11/13 at 2000, MAC NICELOW: cabinet override Given 05/11/2013 8:00 PM EDT 1,000 mg Given 05/11/2013 2:15 PM EDT 1,000 mg Given 05/11/2013 7:54 AM EDT 1,500 mg midazolam (VERSED) injection PRN, Starting on Thu05/11/13 at 0739, Until Thu05/11/13 at 2232, Sleep, Anesthesia Intra-op, Routine Given 05/11/2013 7:39 AM EDT 2 mg neostigmine (PROSTIGMINE) injection PRN, Starting on Thu05/11/13 at 2115, Until Thu05/11/13 at 2232, Anesthesia Intra-op, Routine Given 05/11/2013 9:15 PM EDT 3 mg ondansetron (ZOFRAN) injection PRN, Starting on Thu05/11/13 at 2100, Until Thu05/11/13 at 2232, Nausea, Anesthesia Intra-op, Routine Given 05/11/2013 9:00 PM EDT 8 mg PHENYLephrine HCl in NS (PF) (LEDY-SYNEPHRINE) 0.8 mg/10 mL (80 mcg/mL) injection Syrg PRN, Starting on Thu05/11/13 at 0755, Until Thu05/11/13 at 2232, Anesthesia Intra-op, Routine Given 05/11/2013 9:12 AM EDT 80 mcg Given 05/11/2013 7:55 AM EDT 80 mcg propofol (DIPRIVAN) 10 mg/mL bolus injection (Anesthesia) PRN, Starting on Thu05/11/13 at 0753, Until Thu05/11/13 at 2231, Anesthesia Intra-op Given 05/11/2013 7:53 AM EDT 200 mg succinylcholine (ANECTINE) injection PRN, Starting on Thu05/11/13 at 0753, Until Thu05/11/13 at 223, Anesthesia Intra-op, Routine Given 05/11/2013 7:53 AM EDT 100 mg vecuronium (NORCURON) injection PRN, Starting on Thu05/11/13 at 1851, Until Thu05/11/13 at 223, Anesthesia Intra-op, Routine Given 05/11/2013 7:30 PM EDT 2 mg Given 05/11/2013 7:00 PM EDT 2 mg Given 05/11/2013 6:51 PM EDT 2 mg documented in this encounter Care Teams Reel Blade Bender Furnace Tender Relationship Specialty Start Date End Date Randa Rosas APRN [address] [place] [address] PCP - General 12/29/12 04/16/22 documented as of this encounter
--- OUTSIDE RECORDS SUMMARY | 2024-11-18 17:01 | XMS_ITS | Encounter Summary ---
Author Organization [facility] Address [facility] [place] [address] Care Team Providers Care Cell Phone Repair Technician Name Role Phone Randa Rosas ENGRAVING PATTERNMAKER Primary Care Provider +1- [phone] Reason for Visit * Reason Comments Follow-up pre op ostomy siting Encounter Details Date Type Department Care Team (Late st Contact Info) Description 04/06/2013 11:00 AM EDT Office Visit [place] [address] CLINIC, Michelle Cummins, PA [address] [place] [address] Rectal cancer (Primary Dx); Other specified counseling Discharge Disposition: Home Social History Tobacco Use [...] encounter Progress Notes * Nighat Lopez - 04/07/2013 10:17 AM EDT I met this pleasant 57 yr old man with rectal ca who is pre op for APR along with his anxious s.o. Charlette. Pt has grown children of his own, his youngest is 35 yrs old, along with 2 grandchildren. Charlette does not have children. 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 Pt is not anxious to have a permanent colostomy but states it beats the alternative. He is tiredof the rectal pain and wants the tumor gone. They both met with Nevaeh Martins RN CWOCN for someostomy teaching about 2 weeks ago. He has read the colostomy book. He had some good questions for me today. I showed him the one and two piece pouches, with and without built in clamps. He seems to favor the one piece pouch and the velcro type closures. We talked about change and emptying of the pouch, showering/bathing/swimming, work, clothing, ostomy wraps, etc. I then stoma sited him, after heassumed sitting and standing positions. He wears his belt low on his abd and, as Nevaeh noted, he islong waisted, so doesn't have much room below his umbilicus for an ostomy. He does have a round portion below his umbilicus but this is difficult to see and would be more difficult to manage the colostomy low on his abd and the pouch may get cinched by his belt. He has a large barrel chest so I sited him above his umbilicus but not too high. He can see the site sitting, standing he can see if he pulls his abd inward. I didn't want to go higher because it would make it more difficult to empty into the toilet or conceal under clothing. I darkened the site and covered it with Tegaderm dressing. I gave him more of these and he knows to keep the site marked until OR on 04/27. Charlette sat with pt and seemed quite anxious, but was not pacing or in tears today. She seems to be more distraught aboutthe colostomy than pt (they have been together for about 6 yrs, he tells me she is 10 yrs younger than he). We will follow with teaching post op. documented in this encounter Miscellaneous Notes * Miscellaneous - Provider, Scanning - 05/19/2013 11:53 AM EDT documented in this encounter Plan of Treatment Not on file documented as of this encounter Procedures Procedure Name Priority Date/Time Associated Diagnosis Comments TYPE AND SCREEN, SDP (FUTURE SURGERY, [facility] SAME DAY PROGRAM ONLY) Routine 04/06/2013 4:28 PM EDT Rectal cancer ABO/RH TYPING Routine 04/06/2013 4:28 PM EDT Rectal cancer ANTIBODY SCREEN Routine 04/06/2013 4:28 PM EDT Rectal cancer DIFFERENTIAL, AUTOMATED Routine 04/06/2013 4:25 PM EDT CREATININE Routine 04/06/2013 4:25 PM EDT Rectal cancer APTT Routine 04/06/2013 4:25 PM EDT Rectal cancer PROTHROMBIN TIME Routine 04/06/2013 4:25 PM EDT Rectal cancer CBC (WITH DIFF) Routine 04/06/2013 4:25 PM EDT Rectal cancer BUN Routine 04/06/2013 4:25 PM EDT Rectal cancer CEA Routine 04/06/2013 4:25 PM EDT Rectal cancer HEPATIC FUNCTION PANEL Routine 04/06/2013 4:25 PM EDT Rectal cancer ELECTROLYTES PANEL Routine 04/06/2013 4: 25 PM EDT Rectal cancer documented in this encounter Results * Antibody screen (04/06/2013 4:28 PM EDT) Ab Screen Interp Negative [facility] Expires at [id number] on: [id number] [facility] Comment: Corrected from 04/30/13 00:00:00 EDT [Unknown] on 04/08/13 07:02:09 EDT by Rayna Shultz Blood specimen (specimen) 04/06/2013 4:28 PM EDT 04/06/2013 4:48 PM EDT Narrative Resulting Agency Comment Spec In Lab Bobby Hills MD BLOOD BANK LAB ORDER CINDA ROBERTA KENNEDYIUM * ABO/Rh Typing (04/06/2013 4:28 PM EDT) ABORH Type A Neg ROBERTA WEIENNIUM Blood specimen (specimen) 04/06/2013 4:28 PM EDT 04/06/2013 4:48 PM EDT Narrative Resulting Agency Comment Spec In Lab Bobby Hills MD BLOOD BANK LAB ORDER CINDA ROBERTA KENNEDYIUM * (ABNORMAL) Differential, Automated (04/06/2013 4:25 PM EDT) Neutrophil % 79.0(H) 34.0 - 71.0 % CERNER MILLENNIUM Neutrophil Absolute 5.70 1.50 - 6.30 x10(3)/mc L CERNER MILLENNIUM Lymph % 9.6(L) 19.0 - 53.0 % CERNER MILLENNIUM Lymphocytes Abs 0.7(L) 1.0 - 3.6 x10(3)/mc L CERNER MILLENNIUM Monocyte % 10.1 4.0 - 13.0 % CERNER MILLENNIUM Monocyte Abs 0.7 0.2 - 1.0 x10(3)/mc L CERNER MILLENNIUM Eos % 1.0 0.0 - 7.0 % CERNER MILLENNIUM Eosinophils Abs 0.1 0.0 - 0.5 x10(3)/mc L CERNER MILLENNIUM Basophil % 0.3 0.0 - 2.0 % CERNER MILLENNIUM Baso Absolute 0.0 0.0 - 0.2 x10(3)/mc L CERNER MILLENNIUM Immature Gran % 0.00 0.00 - 0.66 % CERNER MILLENNIUM Comment: Immature granulocytes(IG's)percentage and absolute count will include metamyelocytes, myelocytes, and promyelocytes. Blood smears from CBCs yielding IG's will be scanned manually for concordance. If this scan disagrees with the automated IG or if promyelocytes are noted, a manual differential will be performed. Immature Gran Absolute 0.00 0.00 - 0.05 x10(3)/mc L CERNER MILLENNIUM Blood specimen (specimen) 04/06/2013 4:25 PM EDT 04/06/2013 4:42 PM EDT Bobby Hills MD HEMATOLOGY ORDERABLE S Performing Organization Address [facility] de Phone Number [facility] * CEA (04/06/2013 4:25 PM EDT) Carcinoembryonic Antigen 1.5 <=3.8 ng/mL [facility] MILLENNIUM Comment: Reference range: ??(20-69 years): Non-smoker: ??less than or equal to 3.8 ng/mL Smoker: ??less than 5.5 ng/ml Blood specimen (specimen) 04/06/2013 4:25 PM EDT 04/06/2013 4:42 PM EDT Narrative Resulting Agency Comment Spec In Lab Bobby Hills MD CHEMISTRY ORDERABLES Performing Organization Address [facility] Phone Number [facility] * Hepatic Function Panel (04/06/2013 4:25 PM EDT) Protein, Total 7.0 6.4 - 8.3 gm/dL CERNER MILLENNIUM Albumin 4.3 3.2 - 5.2 gm/dL CERNER MILLENNIUM Aspartate Aminotransferase 16 0 - 39 unit/L CERNER MILLENNIUM Alanine Aminotransferase 22 0 - 55 unit/L CERNER MILLENNIUM Alkaline Phosphatase 73 40 - 120 unit/L CERNER MILLENNIUM Bilirubin, Total 0.3 0.2 - 1.3 mg/dL CERNER MILLENNIUM Bilirubin, Direct 0.1 0.0 - 0.3 mg/dL CERNER MILLENNIUM Blood specimen (specimen) 04/06/2013 4:25 PM EDT 04/06/2013 4:42 PM EDT Narrative Resulting Agency Comment Spec In Lab Bobby Hills MD CHEMISTRY ORDERABLES Performing Organization Address [facility] Co de Phone Number ROBERTA SANTIAGO * APTT (04/06/2013 4:25 PM EDT) Partial Thromboplastin Time 32 25 - 35 sec [facility] RFIDDIGN[facility] ST[facility] Comment: Recommended therapeutic PTT range for full dose unfractionated heparin is 80-114 seconds. Blood specimen (specimen) 04/06/2013 4:25 PM EDT 04/06/2013 4:42 PM EDT Narrative Resulting Agency Comment Spec In Lab Bobby Hills MD HEMATOLOGY ORDERABLE S Performing Organization Address [facility] Phone Number ROBERTA WEIT[facility]adiology Holdings Inc[employer]RASHEEDA * Prothrombin Time (04/06/2013 4:25 PM EDT) Prothrombin Time 12.9 12.0 - 15.0 sec [facility] Comment: [facility] Transfusion Committee Guidelines: INR less than 2.0, PTT less than OR equal to 43.5 seconds, or Fibrinogen greater than or equal to 100 mg/dl indicate adequate procoagulant activity for hemostasis in patients without underlying bleeding disorders. International Normalization Ratio 0.9 0.9 - 1.1 [facility] Blood specimen (specimen) 04/06/2013 4:25 PM EDT 04/06/2013 4:42 PM EDT Narrative Resulting Agency Comment Spec In Lab Bobby Hills MD HEMATOLOGY ORDERABLE S Performing Organization Address [facility] Co de Phone Number ROBERTA IM-SenseRASHEEDA * (ABNORMAL) Creatinine (04/06/2013 4:25 PM EDT) Creatinine 0.59(L) 0.80 - 1.50 mg/dL [facility] Comment: Please note that the pediatric reference intervals supplied above were not validated at [facility]. Results from pediatric patients should be interpreted in conjunction to the patient's age, height and muscle mass. Est Glomerular Filtration Rate >60 >=60 ROBERTA [employer]DA[facility] Comment: This estimated GFR (eGFR) value was [...] internet browser. http://www.nkdep.nih.gov/lab-evaluation.shtml http://www.kidney.org/professionals/ Blood specimen (specimen) 04/06/2013 4:25 PM EDT 04/06/2013 4:42 PM EDT Narrative Resulting Agency Comment Spec In Lab Bobby Hills MD CHEMISTRY ORDERABLES Performing Organization Address [facility] de Phone Number CERNER MILLENNIUM * BUN (04/06/2013 4:25 PM EDT) Blood Urea Nitrogen 13 10 - 20 mg/dL CERNER MILLENNIUM Blood specimen (specimen) 04/06/2013 4:25 PM EDT 04/06/2013 4:42 PM EDT Narrative Resulting Agency Comment Spec In Lab Bobby Hills MD CHEMISTRY ORDERABLES Performing Organization Address [facility] Co de Phone Number CERNER MILLENNIUM * Electrolytes panel (04/06/2013 4:25 PM EDT) Sodium 139 135 - 145 mmol/L CERNER MILLENNIUM Potassium 3.7 3.5 - 5.0 mmol/L CERNER MILLENNIUM Comment: Please note: ??Patients with WBC >100,000 may have falsely elevated Potassium levels. ??For accurate Potassium quantification in these patients send serum separator tube (gold top) for subsequent determinations. ??Contact the Clinical Chemistry Laboratory if there are any questions. Chloride 101 98 - 107 mmol/L CERNER MILLENNIUM Carbon Dioxide 24 22 - 31 mmol/L CERNER MILLENNIUM Anion Gap 14 5 - 15 mmol/L CERNER MILLENNIUM Blood specimen (specimen) 04/06/2013 4:25 PM EDT 04/06/2013 4:42 PM EDT Narrative Resulting Agency Comment Spec In Lab Bobby Hills MD CHEMISTRY ORDERABLES Performing Organization Address City/[facility]/ZIP Co de Phone Number ROBERTA SANTIAGO * (ABNORMAL) CBC (with Diff) (04/06/2013 4:25 PM EDT) White Blood Cell 7.2 4.0 - 10.0 x10(3)/mc L CERNER MILLENNIUM Red Blood Cell 4.14(L) 4.63 - 6.08 x10(6)/mc L CERNER MILLENNIUM Hemoglobin 12.8(L) 13.7 - 17.5 gm/dL CERNER MILLENNIUM Hematocrit 37.5(L) 40.0 - 51.0 % CERNER MILLENNIUM Mean Cell Volume 90.6 79.0 - 92.0 fL CERNER MILLENNIUM Mean Cell Hemoglobin 30.9 25.6 - 32.2 pg CERNER MILLENNIUM Mean Cell Hemoglobin Concentration 34.1 32.0 - 36.5 gm/dL CERNER MILLENNIUM Platelet 319 145 - 370 x10(3)/mc L CERNER MILLENNIUM RDW Standard Deviation 47.2(H) 35.0 - 46.0 fL CERNER MILLENNIUM RDW coefficient of variation 14.3 10.9 - 14.4 % CERNER MILLENNIUM Mean Platelet Volume 9.8 9.0 - 12.0 fL CERNER MILLENNIUM Blood specimen (specimen) 04/06/2013 4:25 PM EDT 04/06/2013 4:42 PM EDT Narrative Resulting Agency Comment Spec In Lab Bobby Hills MD HEMATOLOGY ORDERABLE S Performing Organization Address City/[facility]/ZIP Co de Phone Number ROBERTA SANTIAGO documented in this encounter Visit Diagnoses Diagnosis Rectal cancer- Primary Malignant neoplasm of rectum Other specified counseling documented in this encounter Care Teams Cell Phone Repair Technician Relationship Specialty Start Date End Date Randa Rosas APRN [address] [place] [phone] PCP - General 12/29/12 04/16/22 documented as of this encounter
--- OUTSIDE RECORDS SUMMARY | 2024-11-18 17:01 | XMS_ITS | Encounter Summary ---
Author Organization [facility] Address [facility] [place] [address] Care Team Providers Care Gastroenterology Nurse Practitioner Name Role Phone Randa Rosas APRN Primary Care Provider +1- [phone] Reason for Visit * Reason Comments Other lovenox injection/te aching Encounter Details Date Type Department Care Team (Late st Contact Info) Description 04/07/2013 3:00 PM EDT Office Visit Hematology Oncology at [address] [phone] CLINIC, DR OQUENDO HEM/ONC Nas Dobbs MD Blood clot in vein (Primary Dx) Discharge Disposition: Home Social History [...] Progress Notes * Miriam Dubois RN - 04/08/2013 11:05 AM EDT Patient in for first lovenox injection and teaching regarding self administration. Patient gave shot to self with minimal prompting after teaching completed. Instructed to call/come to clinic tomorrow with issues/concerns/difficulties. documented in this encounter Procedure Notes * Provider, Pola - 04/08/2013 1:00 PM EDTAssociated Order(s): SCAN DOC: CHEMOTHERAPY documented in this encounter Plan of Treatment Not on file documented as of this encounter Procedures Procedure Name Priority Date/Time Associated Diagnosis Comments CHEMOTHERAPY SCAN 04/08/2013 1:0 0 PM EDT documented in this encounter Results * SCAN DOC: CHEMOTHERAPY (04/08/2013 1:00 PM EDT) Narrative 04/08/2013 1:00 PM EDT Procedure Note Provider, Scanning - 04/08/2013 1:00 PM EDT Scanning Provider MEDIA MGR SCAN EXT O RDR/RSLT documented in this encounter Visit Diagnoses Diagnosis Blood clot in vein- Primary Embolism and thrombosis of unspecified site documented in this encounter Administered Medications Inactive Administered Medications - up to 3 most recent administrations Medication Order MAR Action Action Date Dose Rate Site enoxaparin (LOVENOX) injection 150 mg 150 mg, Subcutaneous, ONCE, 1 dose, On Radha 04/07/13 at 1530, First dose today in [facility], Routine Given 04/07/2013 3:30 PM EDT 150 mg documented in this encounter Care Teams Gastroenterology Nurse Practitioner Relationship Specialty Start Date End Date Randa Rosas APRN [address] [place] [address] PCP - General 12/29/12 04/16/22 documented as of this encounter
--- OUTSIDE RECORDS SUMMARY | 2024-11-18 17:01 | XMS_ITS | Encounter Summary ---
Author Organization [facility] Address [facility] [place] [address] Care Team Providers Care Acquisition Consultant Name Role Phone Randa Rosas APRN Primary Care Provider +1- [phone] Reason for Visit * Reason Comments Chemotherapy Continuous 5FU pump weekly change Encounter Details Date Type Department Care Team (Late st Contact Info) Description 01/25/2013 4:00 PM EST Office Visit Hematology Oncology at [address] [phone] CLINIC, DR OQUENDO HEM/ONC Rectal cancer (Primary [...] Progress Notes * Virginia Madrigal RN - 01/25/2013 5:18 PM EST INFUSION THERAPY ADMINISTRATION NOTES DIAGNOSIS: Rectal Cancer CYCLE:2 REASON FOR VISIT: Continuous 5FU home infusion and reaccess mediport SUBJECTIVE Reg denies any complaints. REACTIONS (DESCRIPTION, TIME, INTERVENTION AND EFFECTIVENESS) none ASSESSMENT CADD pump provided by [facility], pump was double checked by Virginia Madrigal RN and Miriam Dubois RN prior to connection. Pump was checked 15min after connection and appropriate amount was infused. Patient was awake, alert and tolerated treatment well. PLAN Patient is aware to call clinic with any questions and concerns M-F 8am to 5pm and after 5pm to call [facility] [place] and to call [place] with any questions and concerns in the off hours with the pump Return to clinic per routine. documented in this encounter Plan of Treatment Not on file documented as of this encounter Visit Diagnoses Diagnosis Rectal cancer- Primary Malignant neoplasm of rectum documented in this encounter Care Teams Acquisition Consultant Relationship Specialty Start Date End Date Randa Rosas APRN [address] [place] [address] PCP - General 12/29/12 04/16/22 documented as of this encounter
--- OUTSIDE RECORDS SUMMARY | 2024-11-18 17:01 | XMS_ITS | Encounter Summary ---
Author Organization [facility] Address [facility] [place] [address] Care Team Providers Care Order Editor Name Role Phone Randa Rosas APRN Primary Care Provider +1- [phone] Reason for Visit * Reason Comments On Treatment Visit Encounter Details Date Type Department Care Team (Late st Contact Info) Description 01/26/2013 5:15 PM EST Follow-Up Radiation Oncology at [address] [phone] eJnsen Wills MD Rectal cancer (Primary Dx) Discharge [...] Sign Reading Time Taken Comments Blood Pressure 117/68 01/26/2013 3:00 PM EST Pulse - - Temperature 36.6 ??C (97.9 ??F) 01/26/2013 3:00 PM ES T Respiratory Rate 18 01/26/2013 3:00 PM EST Oxygen Saturation 99% 01/26/2013 3:00 PM EST Inhaled Oxygen Concentration - - Weight 110 kg (242 lb 8 oz) 01/26/2013 3:[address] Height - - Body Mass Index 38.51 01/25/2013 2:54 PM EST documented in this encounter Progress Notes * Jensen Wills MD - 01/26/2013 4:53 PM EST Note Status: Signed Cosign: Cosign Not Required Note Time: 01/19/2013 4:05 PM ON TREATMENT VISIT: DATE:01/26/2013 PATIENT STATUS: The patient presented with diarrhea [...] of the chest abdomen and pelvis in [place] was read out as completely negative. The patient deniesrectal bleeding. He has persistent perineal heaviness with difficulty in moving his bowels. He has no urinary symptoms. The patient will require abdominoperineal resection. He is very apprehensive about a permanent colostomy. The patient will benefit from neoadjuvant chemoradiation prior to surgical resection . Neoadjuvant chemoradiation will improve his local control. According to The [place] Rectal Cancer trial group Thefive-year cumulative incidence [...] p 4500 01/19 to DOSE to DATE 1260: cGy in 7 FX RADIATION TREATMENT IMAGING: matches original approved [...] rectum documented in this encounter Care Teams Order Editor Relationship Specialty Start Date End Date Randa Rosas APRN [address] [place] [address] PCP - General 12/29/12 04/16/22 documented as of this encounter
--- OUTSIDE RECORDS SUMMARY | 2024-11-18 17:01 | XMS_ITS | Encounter Summary ---
Author Organization [facility] [place] [address] Care Team Providers Care Shop Tailor Apprentice Name Role Phone Randa Rosas VALENTIN Primary Care Provider [phone] Encounter Details Date Type Department Care Team (Late st Contact Info) Description 05/11/2013 7:30 AM EDT - 05/11/2013 3:58 PM EDT [place] [id number] John Hills MD @LAPAROSCOPIC PROCTECTOMY, COMPLETE, APR W COLOSTOMY (WRVU 33) Social History Tobacco Use Types Packs/Day Years [...] BG in the future. Esha Jaramillo APRN [facility] Endocrinology Diabetes Management * Patient Instructions* Dominique Long - 05/17/2013 10:37 AM EDT DIVISION OF [...] you notice signs of infection (see above). Aguilar Care: You are going home with a Aguilar catheter the nurses will teach you how [...] with information about your appointments. Please call [phone] (clinic number for appointments only) to confirm date and time of your appointments or if you do not receive information about your appointment in a timely manner. Divison of Colon and Rectal Surgery ??? [facility] ??? [address] ??? [place] [address] ??? [phone] ??? ~~~~~~~~~~~~~~~~~~~~~~~~~~~~~~~~~~~~~~~~~~~~~~~~~~~~~~~~~~~~~~~~~~~~~~~~ documented in this encounter Medications [...] packed. He will call to order from [facility]. He is planning to be discharged today. T/c to [facility] and spoke to GET Mercedes OC, who verified awareness of pt's discharge and will have AM agency person check for paperwork in AM--denied questions at this time. * Leti Manduajno RN - 05/18/2013 5:00 PM EDT Discharge instructions/meds reviewed w/pt and pt's s/o--all questions answered. Reviewed ostomy care w/pt's s/o and pt relates he is comfortable with care. Also reviewed w/pt's spouse bacitracin application to justin-rectal incision---return demo w/out difficulty. Reviewed MARIEL care and emptying--return demo by pt's s/o accomplished w/out difficult. Instructed how to measure and record Mariel outputs. Instructed in aguilar care and technique to connect leg bag--given home care instruction booklet as well. Given extra supplies for home use. Oxycodone prescription tubed to outpt pharm--pt to picker / packer after discharge. HL's x2 d c'd--sites benign. Discharged ambulatory w/pt's s/o to home via car. * Ying Soria RN - 05/18/2013 3:43 PM EDT Care Management/ CRC Pager# [phone]/ Discharge note S: I am anxious to be leaving today. Thanks for the information about the cushion. O: Met with patient this afternoon. Referral in place to [facility]. Care Management note for MD Discharge Summary (with VNA and DME vendor information) completed and pended. Call to Christiana Lincoln ([phone]) at [facility] about Anusha zayas. Paperwork has been submitted to patient's [employer] insurance. Christiana to be in direct contact with patient about shipping. Christiana has patient's demographic information. A/P: heel boom operator to call report to VNA and MD Discharge Summary to be faxed. * Esha Jaramillo APRN - 05/18/2013 9:34 AM EDT Adrien Cheung 1955 [id number] RANDA ROSAS APRN Follow Up Diabetes Consult [...] BG in the future. Esha Jaramillo APRN [facility] Endocrinology Diabetes Management [phone] This case was discussed with Dr. Amin. [...] APRN - 05/17/2013 9:28 AM EDT Adrien Chenug 1955 [id number] RANDA ROSAS APRN Follow Up Diabetes Consult Patient Interview Mr. Cheung is a pleasant 57 y/o male POD #6 s/p [id number] Proctectomy, APR, colostomy, cystoscopy for stent placement, [...] at home. Fax # for PCP's office [phone]. PLAN Glipizide 5 mg PO QD with breakfast started today Holding off on metformin for now Continue with Lantus 18 units QD at noon Continue current correction Mendoza Jaramillo APRN [facility] Endocrinology Diabetes Management [phone] Pager [phone] This case was discussed with Dr. Shen. [...] team as well as nursing. * Dominique Long - 05/17/2013 6:49 AM EDT Colorectal Surgery Inpatient Progress Note ID: 57 y.o. s/p [id number] Proctectomy, APR, colostomy, cystoscopy for stent placement, [...] he's no longer nauseous with meals. Keep aguilar in place for retention. Plan: N: Toradol, Tylenol, Oxycodone CV: Lisinopril and Lipitor per home regimen Pulm: stable on room air GI: carb control : aguilar for retention, likely trial of void 7 days after discharge ID: afebrile, No s/sx of infection Endo: diabetes team managing, resumed Metformin and 1/2 dose Glipizide yesterday Heme: Therapeutic Lovenox Dispo: floor status DOMINIQUE LONG MD 6:49 AM * Nicola Hernandez MD - 05/17/2013 6:46 AM EDT Plastic Surgery Progress Note POD#6 s/p APR with left gracilis tunneled flap 24 Hour Events: -Aguilar reinserted for urinary retention. General surgery planning [...] 2 consecutive days - Follow-up with Dr. Marie in plastics clinic in 10-14 days. * Cyndie Oconnor RN - 05/16/2013 5:03 PM EDT I met with pt and his fiance Charlette for ostomy teaching. Charlette was anxious, but supportive. 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 We discussed ordering from [facility] and he is interested in the [...] for Functional Mobility Liliane Torres PT Pager: [phone] Physical Therapy Rehabilitation Department * Esha Jaramillo, ORNAMENTAL IRON WORKER HELPER - 05/16/2013 7:58 AM EDT Adrien Cheung 1955 [id number] RANDA ROSAS APRN Follow Up Diabetes Consult Patient Interview POD #5 s/p [id number] Proctectomy, APR, colostomy, cystoscopy for stent placement, [...] best if crushed - patient has pill vice president of development at home ?? Glipizide start at half [...] BG levels (<80 mg/dL) Esha Jaramillo APRN [facility] Endocrinology Diabetes Management [phone] Pager [phone] This case was discussed with Dr. Shen. [...] Inpatient Progress Note ID: 57 y.o. s/p [id number] Proctectomy, APR, colostomy, cystoscopy for stent placement, left gracilis Flap Today is POD#5 24 hr/S: Further nausea throughout yesterday afternoon, though no further episodes of emesis. Abdominal painremains largely unchanged, concentrated in mid to lower abdomen. Aguilar reinsterted yesterday after three repeated straight catheterizations [...] give him sips of clears today. Keep aguilar in place for retention. Plan: N: Toradol, Tylenol, Oxycodone CV: restart lisinopril Pulm: stable on room air GI: sips of clears : aguilar ID: afebrile, no leukocytosis Endo: diabetes team managing, lantus 18 units with iss coverage Heme: no issues. lovenox 30 BID today, will discuss anticoagulation today. Dispo: floor status DOMINIQUE LONG MD 6:41 AM Colon and Rectal Surgery [...] leg bag. John Hills MD, MS, FACS gum mixer Division of Colon and Rectal Surgery [facility] Pager #[phone] * Lu Marie MD - 05/16/2013 6:35 AM EDT Plastic [...] a few stairs. Liliane Torres, PT Pager [phone] * Nicola Hernandez MD - 05/15/2013 10:40 [...] Continue drain - will follow * Dominique Long - 05/15/2013 7:42 AM EDT Colorectal Surgery Inpatient Progress Note ID: 57 y.o. s/p [id number] Proctectomy, APR, colostomy, cystoscopy for stent placement, [...] from yesterday. Urinary retention, likely will need aguilar. Plan: N: Toradol, Tylenol, Oxycodone CV: restart lisinopril Pulm: stable on room air GI: NPO : resume aguilar if unable to void ID: afebrile, no leukocytosis Endo: diabetes team managing, likely will continue insulin as NPO. Heme: no issues. lovenox 30 BID today, continue to hold therapeutic anticoagulation. Dispo: floor status DOMINIQUE LONG MD 7:42 AM * Babita Guillen RN [...] Inpatient Progress Note ID: 57 y.o. s/p [id number] Proctectomy, APR, colostomy, cystoscopy for stent placement, left gracilis Flap Today is POD#3 24 hr/S: Flatus and stool from colostomy yesterday--diet advanced, tolerating regular diet at half portion, given full portions this morning, Pain well controlled with HAIRCUTTER. Ambulated x 2 Visited by superintendent laundry, changed bag. O: Last value Range last [...] will keep in place for now. Remove aguilar this morning and change to PO pain meds. Plan: N: Toradol, Tylenol, Oxycodone CV: restart lisinopril Pulm: stable on room air GI: carb control diet : remove aguilar ID: afebrile, little concern for infection Endo: diabetes team managing, blood sugars well controlled with their regimen, could switch to oralanti-hyperglycemics today. Heme: no issues. lovenox 30 BID today, continue to hold therapeutic anticoagulation. Dispo: floor status DOMINIQUE LONG MD 8:16 AM Colon and Rectal Surgery Attending Patient independently seen, interviewed, and examined. Discussed with senior house-staff, agree with above. John Hills MD, MS, FACS gum mixer Division of Colon and Rectal Surgery [facility] Pager #[phone] * Cyndie Oconnor RN - 05/13/2013 2:56 [...] 2:37 PM EDT Care Management/ CRC Pager# [phone]/ Progress note and Discharge planning S: I do think that having home visits through [facility] would be very helpful. Charlette is an BILLET DRILLER, but having some back-up help would be ok. The Plastic Surgery team had talked about my getting a Roho Cushion. [facility] would be fine if that is the company that is in network with [employer]. O: Met with patient and patient's fiancee Charlette and friend Costa this afternoon. Referral to [employer] as requested. Information faxed via discharge central. Care Management note for MD Discharge Summary (with VNA information) completed and pended by typewriters functional tester. Referral to [facility] in [facility] (in-network with [employer] insurance) about need for Roho cushion when patient is able to sit. Discussion with Christiana at [facility] (tel [phone]). Prescription, demographic/insurance information, medical information faxed to [phone]. At this time patient is on 1/2 portion diabetic diet po. Lantus 18units SQ qday. Novolog with meals/correction q4hr. IVF at 50/hr. Hydromorphone HAIRCUTTER. Tylenol po q6hr. Ultram po q6hr prn. Oxycodone poq4hr prn. Milk of Magnesia po x1 today as ordered. Colostomy pouch intact. No stool as yet. Aguilar to gravity. MARIEL drain x2 (270ml/95ml over [...] At time of patient's discharge to home, heel boom operator vance report to REBECCA and MD Discharge Summary to be faxed. * Cyndie Oconnor RN - 05/13/2013 1:55 PM EDT Ileostomy/Colostomy Pouching: Disposable 2-piece pouch Name: Adrien Cheung Type of Ostomy: Colostomy Use this procedure as a guide when changing your appliance. Read all instructions, assemble all equipment, and empty contents from pouch before beginning actual change. If you have questions, do not hesitate to call Nighat Lopez RN CWOCN or Cyndie Oconnor RN CWOCN at [phone]. Equipment: Company/Order Numbers Wet and dry soft cloth (paper towels) Plastic bag Pen, Scissors, stoma pattern Appliance pouch, transparent, 12 [employer] 2 12/03 #936329 Velcro: #[id number] Wafer, Flexible Stomahesive Convatec 2 12/03 #[id number] Protective powder a. [employer] #: [id number] Non-allergic tape (4 strips) TurboHeads paper tape if necessary Liquid Deodorant [employer] M9 #9956 Other Supplies (if any) Procedure: 1. Using [...] apply a dusting of Stomahesive protective powder. Ida off excess powder, or wafer will not adhere. 6. Remove paper backing from wafer. 7. Apply wafer to skin being sure to center over stoma. Press down firmly, first in center closest to stoma and then outer edges. If wearing [employer] [place] wafer or [employer]vaTec flexible wafer, you must [...] into the hospital. Pharmacy or Medical Supply: [facility] Pt with Ileostomy/Colostomy When to call your private duty aide/ MD Change in Color: The stoma should [...] disposable pouch should be applied. Notify your superintendent laundry or MD. Prolapse: The term implies that [...] Ostomy [employer] [place]: www.uoaa.org [place] [employer] Colon [employer] Rectal [employer]geons: www.fascrs.org/patients/treatments_and_screening/ostomy/ [employer]: www.facs.patienteducation/skills/ostomy.html www.facs.org/patienteducation/skills/dvd.html - includes 10 short professionally produced videos includin. Helping your with home care 2. Your Ostomy 3. Your Operation 4. Pouching systems 5. Emptying a Pouch 6. Changing a Pouch 7. Problem Solving 8. Emergencies 9. Knowledge check 10. Ostomy skills (all modules, 27 minutes) These videos are also on Youtube: search for [employer] Ostomy Education Skills Below is a list of garment websites we other ostomates have found helpful. We do not endorse or have any financial relationship with any of them ?? [employer] - custom neoprene swimming belts. ?? OstomySecrets.com - stylish ostomy underwear and ostomy undergarments ?? [facility].[employer] - Dont' feel Different . . . [...] Jaramillo APRN - 05/13/2013 12:03 PM EDT Adrien Cheung 1955 [id number] RANDA ROSAS APRN Follow Up Diabetes Consult Patient Interview Mr. Cheung is a pleasant 57 y/o male recently diagnosed with rectal cancer. He is now POD #2 s/p [id number] Proctectomy, APR, colostomy, cystoscopy for stent placement, [...] please contact the Alaina Skelton APRN Pager [phone]. PLAN Lantus:18 units at Noon once daily Novolog with meals 1 unit per 8 grams of CHO (0-8 units) Novolog correction insulin 1-8 units - custom scale Q 4 hours BG Checks Q 4 hours Goals for BG levels 100-140 mg/dL pre meals and less than 180 mg/dl post prandial without low BG levels (<80 mg/dL) Esha Jaramillo APRN [facility] Endocrinology Diabetes Management [phone] Pager [phone] This case was discussed with Dr. Amin. [...] team as well as nursing. * Dominique Long - 05/13/2013 9:35 AM EDT Colorectal Surgery Inpatient Progress Note ID: 57 y.o. s/p [id number] Proctectomy, APR, colostomy, cystoscopy for stent placement, [...] with dressing, tissues soft and warm Ext: [facility] Recent Labs Basename 05/13/13 0749 05/12/134 05/12/13 0415 05/11/13 2220 WBC -- -- [...] apnea given body habitus, have decreased his HAIRCUTTER this morning Will attempt PO challenge today. Plan: N: Toradol, Tylenol, TAPS, Oxycodone CV: low-dose metoprolol if needed, holding remainder of cardiac medications Pulm: incentive spirometry to wean oxygen GI: low residue diet. : maintain aguilar for now ID: levaquin, flagyl to stop today Heme: no issues, hbg stable Dispo: transfer to floor DOMINIQUE LONG MD 9:35 AM * Ying Soria RN - 05/12/2013 1:59 PM EDT Care Management/ CRC Pager# [phone]/ Assessment O: Patient napping, typewriters functional tester did not awaken patient. Notes reviewed. Patient lives with his andera [place] in [facility]. Patient has [employer] Open Acc insurance. No Advance Directives on file here at [facility]. Patient is s/p chemotherapy and XRT for rectal cancer. Patient had right chest port placed on 01/10/13. Patient is POD# 1 laparoscopic to open Abdominal perineal resection with colostomy, Left tunneled gracilis flap. At this time patient is in Flex Unit bed C. MD order written for patient to transfer to Surgical Unit. Patient is on sips/chips po, IVF at 50/hr. Levaquin IV q24hr. Flagyl IV q8hr [id number]. HydromorphonePCA. Tylenol po q6hr scheduled. Toradol IV q6hr [id number]. MARIEL drain x2 to bulb suction (RLQ abd drainand Left thigh drain). Aguilar to gravity. Colostomy pouch intact. Milk of Magnesia po x1 today as ordered. Enterostomal therapy nurses following. Consult to Diabetes Management team. Lantus 12units SQqday at noon. Novolog TID with meals and correction q4hr. Per Plastic Surgery note, patient is not to sit [id number]. Lovenox SQ qday. 95% on RA. A: [...] site when MD JONATHON aware. * Lu Marie MD - 05/12/2013 9:26 AM EDT Plastic [...] Pt calm and resting quietly. * Justus Mooney MD - 05/12/2013 8:25 AM EDT Regional Anesthesia Progress Note Date of Encounter: 05/12/2013 Provider: JUSTUS MOONEY MD Attending: Mike Weathers MD ID: Patient [...] sign off; please contact Regional Anesthesia Team ([phone]) for any unresolved sensory or motor deficits or bleeding or bruising at site of block. Thank you for this consultation. JUSTUS MOONEY MD Regional team pager [phone] * Dominique Long - 05/12/2013 8:09 AM EDT Colorectal Surgery Inpatient Progress Note ID: 57 y.o. s/p [id number] Proctectomy, APR, colostomy, cystoscopy for stent placement, left gracilis Flap 24 hr/S: OR yesterday--tolerated procedure well, extubated in OR, hemodynamically stable overnight Pain control good--notes good relief with TAPS block and HAIRCUTTER O: Last value Range last 24hrs Temperature [...] floor. Plan: N: Toradol, Tylenol, TAPS, Dilaudid HAIRCUTTER CV: low-dose metoprolol if needed, holding remainder of cardiac medications Pulm: incentive spirometry to wean oxygen GI: sips and chips, milk of mag today, then Boost glucose control : maintain aguilar for now ID: bernt, yl to stop today Heme: no issues, hbg stable Dispo: transfer to floor DOMINIQUE LONG MD 12:53 PM * Melvin Villa MD - 05/12/2013 2:29 AM EDT Urology Post-Operative Progress Note Surgery: 1. Laparoscopic proctectomy 2. APR 3. Colostomy 4. Cystoscopy for stent placement 5. Left gracilis Flap Patient seen: 01:25, Flex Unit Subjective/Events: Patient denies chest pain, shortness of breath, nausea, vomiting. Pain well-controlled with the HAIRCUTTER tho he does describe some lower abdominal discomfort. Per nursing he alternates sleeping and waking to use HAIRCUTTER. Fiance at bedside. Objective: Vitals: Temp: [36.6 [...] - continue all post-operative care * Lu Marie MD - 05/12/2013 2:29 AM EDT Plastic Surgery Post-Operative Progress Note Surgery: 1. Laparoscopic proctectomy 2. APR 3. Colostomy 4. Cystoscopy for stent placement 5. Left gracilis Flap Patient seen: 01:25, Flex Unit Subjective/Events: Patient denies chest pain, shortness of breath, nausea, vomiting. Pain well-controlled with the HAIRCUTTER tho he does describe some lower abdominal discomfort. Per nursing he alternates sleeping and waking to use HAIRCUTTER. Fiance at bedside. Objective: Vitals: Temp: [36.6 [...] breath, nausea, vomiting. Pain well-controlled with the HAIRCUTTER tho he does describe some lower abdominal discomfort. Per nursing he alternates sleeping and waking to use HAIRCUTTER. Fiance at bedside. Objective: Vitals: Temp: [36.6 [...] commands, VSS, Pt c/o pain Pt using HAIRCUTTER needs reinforcement, dilaudid IVP for breakthrough pain, [...] 2 consecutive days - Follow-up with Dr. Marie in plastics clinic in 10-14 days. * [...] Division of Colon & Rectal Surgery [facility] [phone] documented in this encounter Miscellaneous Notes [...] pain 6/10 after insertion of double lumen aguilar. Administered Oxycodene 15 mg prn 1244. * [...] clean, dry, no erythema or purulence : Aguilar draining clear yellow urine Ext: WWP, no [...] Likely ready for discharge home today (with Aguilar). We'll speak with Plastics to determine whether LLE drain can be removed. Plan: N: Tylenol, Ibuprofen, Oxycodone prn CV: continue Lisinopril Pulm: stable on room air, IS GI: continue CHO-controlled diet : continue Aguilar for now, voiding trial in the future. Needs Aguilar teaching. ID: afebrile, no leukocytosis. Bacitracin to perineum. Endo: appreciate diabetes team recs: Glipizide 5mg PO qAM, Lantus 18units qD at noon, correction Novolog, hold off on metformin. 24 hr fingerstick blood glucose are within goal range. Heme: no issues. Therapeutic lovenox. Dispo: Likely home today. Cyndy Monk, MS3 Pager: [phone] * Plan of Care - Tabitha Schafer [...] to monitor. * Discharge Summary - Dominique Long - 05/17/2013 7:17 AM EDT Inpatient - Discharge Summary Patient Name: Adrien Cheung Patient Age: 57 y.o. Birthdate: 1955 Admit date: 05/11/2013 Discharge date and time: 05/18/2013 Attending Physician: Holubar, John D, MD Primary Diagnosis: Rectal cancer Secondary Diagnosis: [...] John Hills MD - Primary * Dominique Long MD - Resident-Surgeon Timo Panel 2: * Lu Marie MD - Primary * Gerald Eng MD - Resident-Surgeon Chief Panel 3: * Gustabo Khan MD - Primary * Yevgeniy Adan MD * Junie Dominguez MD - *CONSULTING MD * Samuel Shelby MD - Resident-Tool Shaper Setup Operator: Procedure(s): @LAPAROSCOPIC PROCTECTOMY, COMPLETE, APR W COLOSTOMY [...] post- operatively. Pain was controlled with a HAIRCUTTER and a TAPS block. Post-operative day #2, he was given PO challenge with a low-residue diet, which he tolerated without nausea or abdominal pain. Colostomy was functional with gas on post- operative day #2 and stool by post-operative day #4. Attempted catheter removal on post-operative day #3 was unsuccessful and he required aguilar replacementfor urinary retention. He continued to recover, [...] left side was not seen on the block sealer view of the prior CT. This finding [...] by mouth daily. /2 tab= 20mg ??? glipiZIDE (GLUCOTROL) 10 mg [...] AM Nurse, General Surgery [facility] 05/30/2013 11:00 AM Lu Marie MD [facility] PS [facility] 06/14/2013 9:00 AM John Hills MD [facility] 06/14/2013 9:00 AM Ostomy Nurse, General Surgery [facility] 06/14/2013 9:00 AM Michelle Cox PA [facility] 06/14/2013 3:30 PM Nas Dobbs MD [facility] Outpatient Services/Studies: Referral to Home Health Order [...] nurse practitioner, clinical nurse specialist or physician's fleet assistant who is working directly with them, [...] this patient's PCP: RANDA ROSAS APRN [address] [facility] [id number] All VNA agencies which cover the area of patient's residence have been reviewed, either verbally jon writing, and patient/family have chosen the indicated home health care agency for home services. [facility] PHONE: [phone] FAX: [phone] RN visits to begin on day after [...] Health Patient location post discharge home ([address]) What services are requested Registered Nurse What services are requested Physical Therapy What services are requested Occupational Therapy Responsible MD post discharge contact info [facility] [place]. John Hills and PCP Randa Rosas [...] you notice signs of infection (see above). Aguilar Care: You are going home with a Aguilar catheter the nurses will teach you how [...] with information about your appointments. Please call [phone] (clinic number for appointments only) to confirm date and time of your appointments or if you do not receive information about your appointment in a timely manner. Divison of Colon and Rectal Surgery ??? [facility] ??? [address] ??? [place] [address] ??? [phone] ??? ~~~~~~~~~~~~~~~~~~~~~~~~~~~~~~~~~~~~~~~~~~~~~~~~~~~~~~~~~~~~~~~~~~~~~~~~ General Instructions Diabetes Care Plan [...] BG in the future. Esha Jaramillo APRN [facility] Endocrinology Diabetes Management Signed: DOMINIQUE LONG MD 05/18/2013 * Med Student Progress Note - Cyndy Monk - 05/17/2013 4:47 AM EDT Inpatient Progress Note ([facility] ID: Adrien Cheung is a 57 [...] nursing yesterday - (pt's rosalino Ovalles is BILLET DRILLER, able to assist) Seen by PT yesterday [...] clean, dry, no erythema or purulence : Aguilar draining bright yellow urine Ext: WWP, no [...] may be ready for discharge home (with aguilar). Plan: N: Tylenol, Ibuprofen, Oxycodone prn CV: continue Lisinopril Pulm: stable on room air, IS GI: continue CHO-controlled diet - advance slowly until nausea subsides. : continue Aguilar for now, voiding trial in the future ID: afebrile, no leukocytosis. Bacitracin to perineum. Endo: appreciate diabetes team recs. 24 hr fingerstick blood glucose (120 - 172) are within goal range (100 - 180), with exception of 243 yesterday afternoon. May consider transitioning back to oral regimen. Heme: no issues. Therapeutic lovenox. Dispo: possibly today Cyndy Monk, MS3 Pager: [phone] * Plan of Care - Tabitha Schafer [...] Progress Note Patient Name: Adrien Cheung : [id number] MR#: [id number] 05/11/2013 Hospital Day 5 days Patient ID: [...] signs or erythema, exudate and warmth. : Aguilar in place. Perineum surgical site intact. NO [...] unable to urinate. See new order for aguilar re insertion and decrease in pain. Patient reports positive results from prn pain medication * Med Student Progress Note - Chela Shay - 05/15/2013 10:51 AM EDT Plastics Surgery - Progress Note Patient Name: Adrien Cheung : [id number] MR#: [id number] 05/11/2013 Hospital Day 4 days Patient ID: [...] signs or erythema, exudate and warmth. : Aguilar in place. Perineum surgical site intact. NO [...] COLOSTOMY performed by John Hills MD at [facility] OR ??? Remove abd lymph nodes rad regnl 05/11/2013 @LYMPHADENECTOMY,ABDOMINAL,REGIONAL,MULTIPLE NODES performed by John Hills MD at [facility] OR ??? Exclusion, small bowel from pelvis 05/11/2013 @EXCLUSION OF SMALL INTESTINE FROM PELVIS performed by John Hills MD at [facility] OR ??? Muscle-skin flap, leg 05/11/2013 FLAP, MYOCUTANEOUS OR FASCIOCUTANEOUS, LOWER EXTREMITY performed by Lu Marie MD at [facility] OR ??? Adj tiss xfer scalp, extrem 10.1-30 05/11/2013 ADJ.TISSUE TRANSFER, REARRANGEMENT, 10.1 TO 30 SQ.CM, LEGS performed by Lu Marie MD at [facility] OR ??? Cystoscopy, insert ureteral stent 05/11/2013 CYSTO, STENT PLACEMENT INTRAOP, TEMPORARY performed by Gustabo Khan MD at [facility] MAIN OR ??? Omental flap, intra-abdominal 05/11/2013 @OMENTAL FLAP, INTRA-ABDOMINAL performed by Gustabo Khan MD at [facility] OR Social History: Patient is lives with andrea, who is an BILLET DRILLER. Stairs: 2 with a wall, but no [...] of the session. Pain: none - used HAIRCUTTER Vital Signs: Sp02: 94 - 94% on [...] home at discharge. His fiancee is an BILLET DRILLER. Various friends will help. There is a vehicle available where pt can lie down. Pt has a rolling walker and cane available. Pt probably won't need Home PT. Total time spent with patient: 45 minutes for Evaluation Total timed interventions: 0 minutes LILIANE TORRES PT 05/13/2013 Pager: [phone] Physical Therapy Rehabilitation Department * Initial Assessments [...] COLOSTOMY performed by John Hills MD at [facility] OR ??? Remove abd lymph nodes rad regnl 05/11/2013 @LYMPHADENECTOMY,ABDOMINAL,REGIONAL,MULTIPLE NODES performed by John Hills MD at [facility] OR ??? Exclusion, small bowel from pelvis 05/11/2013 @EXCLUSION OF SMALL INTESTINE FROM PELVIS performed by John Hills MD at [facility] OR ??? Muscle-skin flap, leg 05/11/2013 FLAP, MYOCUTANEOUS OR FASCIOCUTANEOUS, LOWER EXTREMITY performed by Lu Marie MD at [facility] OR ??? Adj tiss xfer scalp, extrem 10.1-30 05/11/2013 ADJ.TISSUE TRANSFER, REARRANGEMENT, 10.1 TO 30 SQ.CM, LEGS performed by Lu Marie MD at [facility] OR ??? Cystoscopy, insert ureteral stent 05/11/2013 CYSTO, STENT PLACEMENT INTRAOP, TEMPORARY performed by Gustabo Khan MD at [facility] OR ??? Omental flap, intra-abdominal 05/11/2013 @OMENTAL FLAP, INTRA-ABDOMINAL performed by Gustabo Khan MD at [facility] OR Social History: Patient lives with [...] require assist with dressings, justin area. Toileting: aguilar Functional Mobility: Supine to stand: cues, no [...] returned to supine he requested use of HAIRCUTTER, he is transitioning to oral pain meds. [...] minutes Total timed interventions: 0 minutes Pager: [phone] KRYSTEN PALACIOS OT 05/13/2013 Occupational Therapy Rehabilitation Department * Med Student Progress Note - Chela Shay - 05/13/2013 12:41 PM EDT Plastic Surgery - Progress Note Patient Name: Adrien Cheung : [id number] MR#: [id number] 05/11/2013 Hospital Day 2 days Patient ID: [...] signs or erythema, exudate and warmth. : Aguilar in place. Perineum surgical site intact. NO [...] 05/13/2013 4:43 AM EDT Inpatient Progress Note (ColorectalSer, MS3) ID: Adrien Cheung is a 57 y.o. male with h/o low rectal cancer s/p neoadjuvant chemoradiation, whois POD #2 s/p lap proctectomy, APR with colostomy; abdominal lymphadenectomy; and omental/L gracilis flap. 24 hour events/Subjective: : Patient seen and examined at the bedside. No f/cp/sob - Pain well-controlled with Dilaudid HAIRCUTTER - Clear sips with Boost. Feeling mildly [...] appliance. MARIEL draining minimal serosanguinous fluid. : Aguilar draining yellow urine, not yet clearing. Anal incision is c/d/i without erythema or purulence. Skin: warm, dry Ext: no c/c/e, LLE dressing c/d/i. Drain with minimal ss output. Neuro: CN II-XII grossly intact, nonfocal Recent Labs - Recent Labs Basename 05/12/13205305/12/13 0415 05/11/13 2220 WBC -- 8.0 -- [...] ??? HYDROmorphone 0.2 mg/hr (05/12/13 0930) ??? HAIRCUTTER uribe PRN Meds:.diphenhydrAMINE, ondansetron, naloxone, dextrose 50%, [...] flatus in appliance. Plan: NEURO: Continue Dilaudid HAIRCUTTER, Tylenol, Toradol CV: no issues. Consider perioperative beta-niyah if tachycardic. PULM: no issues, IS. Nebulizer prn. GI: Clears, advance to soft diet as tolerated. Ostomy nursing to see patient. : continue Aguilar ID: Bacitracin to perineum incision BID. Levaquin [...] stable on floor. PT/OT consult. Cyndy Monk, 3 Pager: [phone] * Med Student Progress Note - Chela Shay - 05/12/2013 6:03 PM EDT Plastic Surgery - Progress Note Patient Name: Adrien Cheung : [id number] MR#: [id number] 05/11/2013 Hospital Day 1 day Patient ID: 57 Year old man with hx of rectal cancer, HTN, DM and obesity now POD#1 APR (protectomy) with tunneled gracilis flap Procedure: Surgeon: Surgeon(s) and Role: Panel 1: * John Hills MD - Primary * Dominique Long MD - Resident-Surgeon Timo Panel 2: * Lu Marie MD - Primary * Gerald Eng MD - Resident-Surgeon Chief Panel 3: * Gustabo Khan MD - Primary * Yevgneiy Adan MD * Junie Dominguez MD - *CONSULTING MD * Samuel Shelby MD - Resident-Tool Shaper Setup Operator Events over the last 24 hrs: No [...] signs or erythema, exudate and warmth. : Aguilar in place. Perineum surgical site intact. No [...] 05/12/2013 * Consult Note - Esha Jaramillo, ORNAMENTAL IRON WORKER HELPER - 05/12/2013 12:28 PM EDT Inpatient Endocrinology Glucose Management Consult Date of Consultation: 05/12/2013 Place of Consultation: [address] [place] [address] unit Consult Requested by: Dr. Hills, General Surgery Reason for Consultation: Adrien Cheung is a 57 y.o. male who was admitted on 05/11/2013 for the diagnosis of rectal cancer now POD #1. We are asked to see him to assist with diabetes management and to provide a review of his leadite man diabetes plan. 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 Smoking status: Former Smoker Quit date: 11/30/1996 ??? Smokeless tobacco: Not on file ??? Alcohol Use: Yes beer on weekends - not recently ??? Drug Use: Yes Weekend use of marijuana per medical record ??? 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 Esha Jaramillo APRN [facility] Endocrin[facility] Diabetes Management [phone] Pager [phone] This case was discussed with Dr. Amin. [...] Yevgeniy Adan - 05/12/2013 9:23 AM EDT [facility] [place] Note Patient Name: Adrien Cheung : [id number] MR#: [id number] Case Date: 05/11/2013 - 05/12/2013 Surgeon: Surgeon(s) and Role: Panel 1: * John Hills MD - Primary * Dominique Long MD - Resident-Surgeon Timo Panel 2: * Lu Marie MD - Primary * Gerald Eng MD - Resident-Surgeon Chief Panel 3: * Gustabo Khan MD - Primary * Yevgeniy Adan MD * Junie Dominguez MD - *CONSULTING MD * Samuel Shelby MD - Resident-Tool Shaper Setup Operator Preoperative diagnosis: RECTAL CANCER Postoperative diagnosis: RECTAL [...] bladder. The ureteral orifices were orthotopic. A [place] catheter was then used to intubate the right ureteral orifice over a wire, and was then advanced to the 26 cm adrien where resistance was encountered. This process was repeated on the left with a second [place] catheter. An Emily catheter was then placed and the free ends of the stents were pulled through this catheter and secured with silk ties. Ten cc's were placed in the balloon. With ourportion of the case concluded, he was turned over to the primary team to proceed. * Med Student Progress Note - [place] Home[place] - 05/12/2013 5:13 AM EDT Inpatient Progress [...] procedure well - Pain well-controlled with Dilaudid HAIRCUTTER - No flatus, no nausea. Objective: Temp: [...] in appliance. MARIEL draining serosanguinous fluid. : Aguilar draining dark yellow urine. Skin: warm, dry [...] ringers 125 mL/hr (05/11/130) ??? HYDROmorphone ??? HAIRCUTTER uribe PRN Meds:.diphenhydrAMINE, ondansetron, naloxone, ondansetron, ondansetron, [...] to NS today. Plan: NEURO: Continue Dilaudid HAIRCUTTER, Tylenol 975 mg q6h. Start Toradol. CV: no issues. Consider perioperative beta-niyah if tachycardic. PULM: no issues, IS. Nebulizer prn. GI: NPO. : d/c one stent this AM, if no blood in urine d/c second stent this afternoon. Continue Aguilar, monitor I/O ID: Levofloxacin in D5W 750mg IV. Flagyl d/c after dose at 14:00 FenK: NS at 100ml/hr Heme: Monitor H&H Endo: ISS. Endocrinology consult for diabetic management. Ppx: SubQ Lovenox 40mg qD. SCDs and OOB today. DISPO: stable on floor. ETHAN Chen Pager: [phone] * Brief Op Note - Gerald Eng MD - 05/11/2013 10:21 PM EDT Brief Operative Note Patient Name: Adrien Cheung : [id number] MR#: [id number] Case Date: 05/11/2013 Surgeon: Surgeon(s) and Role: Panel 1: * John Hills MD - Primary * Dominique Long MD - Resident-Surgeon Timo Panel 2: * Lu Marie MD - Primary * Gerald Eng MD - Resident-Surgeon Chief Panel 3: * Gustabo Khan MD - Primary * Yevgeniy Adan MD * Junie Dominguez MD - *CONSULTING MD * Samuel Shelby MD - Resident-Tool Shaper Setup Operator Preoperative diagnosis: RECTAL CANCER Postoperative diagnosis: RECTAL [...] John Hills - 05/11/2013 8:58 PM EDT [facility] [place] Note Patient Name: Adrien REMY: [id number] MR#: [id number] Case Date: 05/11/2013 Surgeon: Surgeon(s) and Role: Panel 1: * John Hills MD - Primary * Michelle Myers MD - Law Firm Partner * Dominique Long MD - Resident-Surgeon Timo Panel 2: * Lu Marie MD - Primary * Gerald Egn MD - Resident-Surgeon Chief Panel 3: * Gustabo Khan MD - Primary * Yevgeniy Adan MD * Junie Dominguez MD - *CONSULTING MD * Samuel Shelby MD - Resident-Tool Shaper Setup Operator Preoperative diagnosis: RECTAL CANCER Postoperative diagnosis: RECTAL [...] colon and transected the colon using an [place] stapler. We then proceeded with a lateral [...] leaking. She suggested that we leave the Aguilar in for five days and check a cystogram also, which we will consider. The pelvis was then copiously irrigated out with 3 liters of saline. It was hemostatic. We placed a #19 Sandeep drain in the deep pelvis, and we proceeded to mature the colostomy in the left upper quadrant site using brooking stitches. The midline fascia was closed using running double looped #1 PDS tied in the center, the subcutaneous tissues irrigated out with triple-antibiotic solution, and the skin closed with 4-0 Monocryl and DermaFlex. For the perineal defect, please see Dr. Lu Marie's separately dictated operative note. For my portion of the procedure there were no complications. Total Estimated Blood Loss: 1000 mL. Estimated Intravenous Fluids: 6000 mL. All needle, instrument, lap/spounge counts were correct. There were no complications. John Hills MD, MS, FACS gum mixer Division of Colon and Rectal Surgery [facility] Pager #[phone] * OR Attestation - John Hills - 05/11/2013 8:57 PM EDT Attestation: Case Date: 05/11/2013 I was present and I participated during the entire procedure (does not need to include opening and closing). JOHN HILLS MD 05/11/2013 * Op Note - Junie Dominguez MD - 05/11/2013 7:32 PM EDT Operative Note Patient Name: Adrien Cheung : [id number] MR#: [id number] Case Date: 05/11/2013 Surgeon: Surgeon(s) and Role: Panel 1: * John Hills MD - Primary * Dominique Long MD - Resident-Surgeon Timo Panel 2: * Lu Marie MD - Primary * Gerald Eng MD - Resident-Surgeon Chief Panel 3: * Gustabo Khan MD - Primary * Yevgeniy Adan MD * Junie Dominguez MD - *CONSULTING MD * Samuel Shelby MD - Resident-Tool Shaper Setup Operator Preoperative diagnosis: RECTAL CANCER Postoperative diagnosis: RECTAL [...] Operative Note Patient Name: Adrien Cheung : [id number] MR#: [id number] Case Date: 05/11/2013 Surgeon: Surgeon(s) and Role: Panel 1: * John Hills MD - Primary * Dominique Long MD - Resident-Surgeon Timo Panel 2: * Lu Marie MD - Primary * Gerald Eng MD - Resident-Surgeon Chief Panel 3: * Gustabo Khan MD - Primary * Yevgeniy Adan MD * Junie Dominguez MD - *CONSULTING MD * Samuel Shelby MD - Resident-Tool Shaper Setup Operator Preoperative diagnosis: RECTAL CANCER Postoperative diagnosis: RECTAL [...] MD 05/11/2013 * OR Attestation - Lu Marie MD - 05/11/2013 7:32 AM EDT Attestation: Case Date: 05/11/2013 - 05/12/2013 I was present and I participated during the entire procedure (does not need to include opening and closing). LU MARIE MD 05/12/2013 * Op Note - Lu Marie MD - 05/11/2013 7:16 AM EDT [facility] [place] Patient Name: Adrien Cheung : [id number] MR#: [id number] Case Date: 05/11/2013 - 05/12/2013 Surgeon: Surgeon(s) and Role: Panel 1: * John Hills MD - Primary * Dominique Long MD - Resident-Surgeon Timo Panel 2: * Lu Marie MD - Primary * Gerald Eng MD - Resident-Surgeon Chief Panel 3: * Gustabo Khan MD - Primary * Yevgeniy Adan MD * Junie Dominguez MD - *CONSULTING MD * Samuel Shelby MD - Resident-Tool Shaper Setup Operator Preoperative diagnosis: RECTAL CANCER Postoperative diagnosis: RECTAL [...] to the medial femoral circumflex artery. Distal material requirements planning manager branches from the superficial femoral artery were [...] tension with closure. No complications noted Dr. Marie was present for the operation All instruments, [...] Glucose, POC 160 60 - 199 mg/dL [facility] Comment: Supplemental ranges: <110 mg/dL before meals <200 mg/dL all other times of the day Blood specimen (specimen) 05/18/2013 4:06 PM EDT 05/18/2013 4:06 PM EDT John Hills MD POINT OF CARE TEST O RDERAKENYA Performing Organization Address [facility] de Phone Number [facility] * POCT Glucose (05/18/2013 11:41 AM EDT) Glucose, POC 149 60 - 199 mg/dL [facility] Comment: Supplemental ranges: <110 mg/dL before meals <200 mg/dL all other times of the day Blood specimen (specimen) 05/18/2013 11:41 AM EDT 05/18/2013 11:41 AM EDT John Hills MD POINT OF CARE TEST O RDERAKENYA Performing Organization Address [facility] Co de Phone Number [facility] * POCT Glucose (05/18/2013 7:32 AM EDT) Glucose, POC 142 60 - 199 mg/dL [facility] Comment: Supplemental ranges: <110 mg/dL before meals <200 mg/dL all other times of the day Blood specimen (specimen) 05/18/2013 7:32 AM EDT 05/18/2013 7:32 AM EDT John Hills MD POINT OF CARE TEST O RDERABLES Performing Organization Address [facility] Co de Phone Number [facility] * POCT Glucose (05/18/2013 4:10 AM EDT) Glucose, POC 157 60 - 199 mg/dL [facility] Comment: Supplemental ranges: <110 mg/dL before meals <200 mg/dL all other times of the day Blood specimen (specimen) 05/18/2013 4:10 AM EDT 05/18/2013 4:10 AM EDT John Hills MD POINT OF CARE TEST O RDERAKENYA Performing Organization Address [facility] Co de Phone Number [facility] * POCT Glucose (05/17/2013 11:44 PM EDT) Glucose, POC 144 60 - 199 mg/dL [facility] Comment: Supplemental ranges: <110 mg/dL before meals <200 mg/dL all other times of the day Blood specimen (specimen) 05/17/2013 11:44 PM EDT 05/17/2013 11:44 PM EDT John Hills MD POINT OF CARE TEST O RDERABLES Performing Organization Address [facility] Co de Phone Number [facility] * POCT Glucose (05/17/2013 7:23 PM EDT) Glucose, POC 151 60 - 199 mg/dL [facility] Comment: Supplemental ranges: <110 mg/dL before meals <200 mg/dL all other times of the day Blood specimen (specimen) 05/17/2013 7:23 PM EDT 05/17/2013 7:23 PM EDT John Hills MD POINT OF CARE TEST O RDERABLES Performing Organization Address [facility] Co de Phone Number [facility] * POCT Glucose (05/17/2013 4:30 PM EDT) Glucose, POC 151 60 - 199 mg/dL [facility] Comment: Supplemental ranges: <110 mg/dL before meals <200 mg/dL all other times of the day Blood specimen (specimen) 05/17/2013 4:30 PM EDT 05/17/2013 4:30 PM EDT John Hills MD POINT OF CARE TEST O ANNAMARIAERAKENYA Performing Organization Address [facility] de Phone Number [facility] * POCT Glucose (05/17/2013 11:43 AM EDT) Glucose, POC 185 60 - 199 mg/dL [facility] Comment: Supplemental ranges: <110 mg/dL before meals <200 mg/dL all other times of the day Blood specimen (specimen) 05/17/2013 11:43 AM EDT 05/17/2013 11:43 AM EDT John Hills MD POINT OF CARE TEST O ZACH Performing Organization Address [facility] de Phone Number [facility] * POCT Glucose (05/17/2013 7:35 AM EDT) Glucose, POC 169 60 - 199 mg/dL [facility] Comment: Supplemental ranges: <110 mg/dL before meals <200 mg/dL all other times of the day Blood specimen (specimen) 05/17/2013 7:35 AM EDT 05/17/2013 7:35 AM EDT John Hills MD POINT OF CARE TEST O ANNAMARIAERAKENYA Performing Organization Address [facility] de Phone Number [facility] * POCT Glucose (05/17/2013 3:53 AM EDT) Glucose, POC 125 60 - 199 mg/dL [facility] Comment: Supplemental ranges: <110 mg/dL before meals <200 mg/dL all other times of the day Blood specimen (specimen) 05/17/2013 3:53 AM EDT 05/17/2013 3:53 AM EDT John Hills MD POINT OF CARE TEST O RDERABLES Performing Organization Address [facility] de Phone Number [facility] * POCT Glucose (05/17/2013 12:13 AM EDT) Glucose, POC 172 60 - 199 mg/dL [facility] Comment: Supplemental ranges: <110 mg/dL before meals <200 mg/dL all other times of the day Blood specimen (specimen) 05/17/2013 12:13 AM EDT 05/17/2013 12:13 AM EDT John Hills MD POINT OF CARE TEST O RDERAKENYA Performing Organization Address [facility] Phone Number [facility] * POCT Glucose (05/16/2013 7:03 PM EDT) Glucose, POC 138 60 - 199 mg/dL [facility] Comment: Supplemental ranges: <110 mg/dL before meals <200 mg/dL all other times of the day Blood specimen (specimen) 05/16/2013 7:03 PM EDT 05/16/2013 7:03 PM EDT John Hills MD POINT OF CARE TEST O RDERAKENYA Performing Organization Address [facility] de Phone Number [facility] * POCT Glucose (05/16/2013 4:16 PM EDT) Glucose, POC 120 60 - 199 mg/dL [facility] Comment: Supplemental ranges: <110 mg/dL before meals <200 mg/dL all other times of the day Blood specimen (specimen) 05/16/2013 4:16 PM EDT 05/16/2013 4:16 PM EDT John Hills MD POINT OF CARE TEST O RDERABLES Performing Organization Address [facility] de Phone Number [facility] * POCT Glucose (05/16/2013 2:53 PM EDT) Glucose, POC 150 60 - 199 mg/dL [facility] Comment: Supplemental ranges: <110 mg/dL before meals <200 mg/dL all other times of the day Blood specimen (specimen) 05/16/2013 2:53 PM EDT 05/16/2013 2:53 PM EDT John Hills MD POINT OF CARE TEST O RDERAKENYA Performing Organization Address [facility] de Phone Number [facility] * (ABNORMAL) POCT Glucose (05/16/2013 11:59 AM EDT) Glucose, POC 243(H) 60 - 199 mg/dL [facility] Comment: Supplemental ranges: <110 mg/dL before meals <200 mg/dL all other times of the day Blood specimen (specimen) 05/16/2013 11:59 AM EDT 05/16/2013 11:59 AM EDT John Hills MD POINT OF CARE TEST O RDERAKENYA Performing Organization Address [facility] de Phone Number [facility] * POCT Glucose (05/16/2013 6:43 AM EDT) Glucose, POC 175 60 - 199 mg/dL [facility] Comment: Supplemental ranges: <110 mg/dL before meals <200 mg/dL all other times of the day Blood specimen (specimen) 05/16/2013 6:43 AM EDT 05/16/2013 6:43 AM EDT John Hills MD POINT OF CARE TEST O RDERAKENYA Performing Organization Address [facility] de Phone Number [facility] * Magnesium (05/16/2013 6:02 AM EDT) Magnesium [...] above were not validated at [facility] Results from pediatric patients should be interpreted [...] Hills MD CHEMISTRY ORDERABLES Performing Organization Address [facility] Co de Phone Number [facility] * POCT Glucose (05/16/2013 3:56 AM EDT) Glucose, POC 155 60 - 199 mg/dL [facility] Comment: Supplemental ranges: <110 mg/dL before meals <200 mg/dL all other times of the day Blood specimen (specimen) 05/16/2013 3:56 AM EDT 05/16/2013 3:56 AM EDT John Hills MD POINT OF CARE TEST O RDERABLES Performing Organization Address [facility] de Phone Number [facility] * POCT Glucose (05/15/2013 11:31 PM EDT) Glucose, POC 149 60 - 199 mg/dL [facility] Comment: Supplemental ranges: <110 mg/dL before meals <200 mg/dL all other times of the day Blood specimen (specimen) 05/15/2013 11:31 PM EDT 05/15/2013 11:31 PM EDT John Hills MD POINT OF CARE TEST O RDERABLES Performing Organization Address [facility] Co de Phone Number [facility] * POCT Glucose (05/15/2013 7:14 PM EDT) Glucose, POC 157 60 - 199 mg/dL [facility] Comment: Supplemental ranges: <110 mg/dL before meals <200 mg/dL all other times of the day Blood specimen (specimen) 05/15/2013 7:14 PM EDT 05/15/2013 7:14 PM EDT John Hills MD POINT OF CARE TEST O RDERABLES Performing Organization Address [facility] de Phone Number [facility] * POCT Glucose (05/15/2013 3:48 PM EDT) Glucose, POC 172 60 - 199 mg/dL [facility] Comment: Supplemental ranges: <110 mg/dL before meals <200 mg/dL all other times of the day Blood specimen (specimen) 05/15/2013 3:48 PM EDT 05/15/2013 3:48 PM EDT John Hills MD POINT OF CARE TEST O RDERABLES Performing Organization Address [facility] Phone Number ROBERTA SANTIAGO * (ABNORMAL) POCT Glucose (05/15/2013 11:28 AM EDT) Glucose, POC 213(H) 60 - 199 mg/dL [facility] Comment: Supplemental ranges: <110 mg/dL before meals <200 mg/dL all other times of the day Blood specimen (specimen) 05/15/2013 11:28 AM EDT 05/15/2013 11:28 AM EDT John Hills MD POINT OF CARE TEST O RDERABLES Performing Organization Address [facility] Phone Number [facility] * (ABNORMAL) XR abdomen 1 view (05/15/2013 [...] left side was not seen on the block sealer view of the prior CT. ??This finding [...] left side was not seen on the block sealer view of the prior CT. Thisfinding may [...] Glucose, POC 205(H) 60 - 199 mg/dL [facility] Comment: Supplemental ranges: <110 mg/dL before meals <200 mg/dL all other times of the day Blood specimen (specimen) 05/15/2013 7:18 AM EDT 05/15/2013 7:18 AM EDT John Hills MD POINT OF CARE TEST O RDERABLES Performing Organization Address [facility] Co de Phone Number ROBERTA KENNEDYIUM * [...] MD HEMATOLOGY ORDERABLE S Performing Organization Address [facility] Co de Phone Number ROBERTA KENNEDYIUM * [...] above were [place] [facility]. Results from pediatric patients should be interpreted [...] In Lab John Hills MD CHEMISTRY ORDERABLES [facility] [employer] * (ABNORMAL) Urinalysis with microscopic (05/15/2013 6:46 [...] Urine Dipstick Clear Clear CERNER MILLENNIUM Specific [place] Urine Automated 1.013 1.002 - 1.030 CERNER [...] CHEUNG ?Ordered By: JOHN HILLS ? MR#: [id number] ?LOC: ??4WST ? /Sex: ??1955 (57 years), ? Male ? PROCEDURE: Urine Culture ?SOURCE: U [facility] ? COLLECTED: 05/15/2013 06:44 ? STARTED: 05/15/2013 08:20 ? AMENDED REPORT ? Amended Final Report ? Verified:2012 11:18 ? No growth (Less than 1,000 cfu/ml). ? FINAL REPORT ? Final Report ? Verified:2012 11:16 ? No growth to date. ? PRELIMINARY REPORT ? Preliminary Report ? Verified:2012 07:20 ? No growth to date. ? [facility] Urine specimen obtained via straight catheter (specimen) 05/15/2013 6:44 AM EDT 05/15/2013 8:20 AM EDT Narrative Resulting Agency Comment Spec In Lab John Hills MD MICROBIOLOGY - GENER AL ORDERABLES Performing Organization Address [facility] de Phone Number ROBERTA SANTIAGO * (ABNORMAL) POCT Glucose (05/15/2013 6:02 AM EDT) Glucose, POC 206(H) 60 - 199 mg/dL ROBERTA ERIBERTOBALJINDERIUM Comment: Supplemental ranges: <110 mg/dL before meals <200 mg/dL all other times of the day Blood specimen (specimen) 05/15/2013 6:02 AM EDT 05/15/2013 6:02 AM EDT John Hills MD POINT OF CARE TEST O RDERABLES Performing Organization Address [facility] de Phone Number [facility] * POCT Glucose (05/14/2013 9:13 PM EDT) Glucose, POC 160 60 - 199 mg/dL [facility] Comment: Supplemental ranges: <110 mg/dL before meals <200 mg/dL all other times of the day Blood specimen (specimen) 05/14/2013 9:13 PM EDT 05/14/2013 9:13 PM EDT John Hills MD POINT OF CARE TEST O RDSILVIA Performing Organization Address [facility] de Phone Number [facility] * POCT Glucose (05/14/2013 7:17 PM EDT) Glucose, POC 179 60 - 199 mg/dL [facility] Comment: Supplemental ranges: <110 mg/dL before meals <200 mg/dL all other times of the day Blood specimen (specimen) 05/14/2013 7:17 PM EDT 05/14/2013 7:17 PM EDT John Hills MD POINT OF CARE TEST O ZACH Performing Organization Address [facility] de Phone Number [facility] * POCT Glucose (05/14/2013 3:38 PM EDT) Glucose, POC 181 60 - 199 mg/dL [facility] Comment: Supplemental ranges: <110 mg/dL before meals <200 mg/dL all other times of the day Blood specimen (specimen) 05/14/2013 3:38 PM EDT 05/14/2013 3:38 PM EDT John Hills MD POINT OF CARE TEST O RDERAKENYA Performing Organization Address [facility] de Phone Number [facility] * POCT Glucose (05/14/2013 11:49 AM EDT) Glucose, POC 144 60 - 199 mg/dL [facility] Comment: Supplemental ranges: <110 mg/dL before meals <200 mg/dL all other times of the day Blood specimen (specimen) 05/14/2013 11:49 AM EDT 05/14/2013 11:49 AM EDT John Hills MD POINT OF CARE TEST O RDERABLES Performing Organization Address [facility] de Phone Number [facility] * POCT Glucose (05/14/2013 7:20 AM EDT) Glucose, POC 181 60 - 199 mg/dL [facility] Comment: Supplemental ranges: <110 mg/dL before meals <200 mg/dL all other times of the day Blood specimen (specimen) 05/14/2013 7:20 AM EDT 05/14/2013 7:20 AM EDT John Hills MD POINT OF CARE TEST O RDERAKENYA Performing Organization Address [facility] de Phone Number [facility] * POCT Glucose (05/14/2013 3:50 AM EDT) Glucose, POC 146 60 - 199 mg/dL [facility] Comment: Supplemental ranges: <110 mg/dL before meals <200 mg/dL all other times of the day Blood specimen (specimen) 05/14/2013 3:50 AM EDT 05/14/2013 3:50 AM EDT John Hills MD POINT OF CARE TEST O RDERAKENYA Performing Organization Address [facility] de Phone Number [facility] * POCT Glucose (05/13/2013 11:48 PM EDT) Glucose, POC 180 60 - 199 mg/dL [facility] Comment: Supplemental ranges: <110 mg/dL before meals <200 mg/dL all other times of the day Blood specimen (specimen) 05/13/2013 11:48 PM EDT 05/13/2013 11:48 PM EDT John Hills MD POINT OF CARE TEST O RDERABLES Performing Organization Address [facility] Co de Phone Number [facility]RIBERTOCLEARSKY [facility] * POCT Glucose (05/13/2013 8:13 PM EDT) Glucose, POC 192 60 - 199 mg/dL [facility] Comment: Supplemental ranges: <110 mg/dL before meals <200 mg/dL all other times of the day Blood specimen (specimen) 05/13/2013 8:13 PM EDT 05/13/2013 8:13 PM EDT John Hills MD POINT OF CARE TEST O RDERABLES Performing Organization Address [facility] de Phone Number [facility] * POCT Glucose (05/13/2013 6:17 PM EDT) Glucose, POC 180 60 - 199 mg/dL [facility] Comment: Supplemental ranges: <110 mg/dL before meals <200 mg/dL all other times of the day Blood specimen (specimen) 05/13/2013 6:17 PM EDT 05/13/2013 6:17 PM EDT John Hills MD POINT OF CARE TEST O RDERABLES Performing Organization Address [facility] de Phone Number [facility]LEARS[facility] * POCT Glucose (05/13/2013 5:00 PM EDT) Glucose, POC 183 60 - 199 mg/dL [facility] Comment: Supplemental ranges: <110 mg/dL before meals <200 mg/dL all other times of the day Blood specimen (specimen) 05/13/2013 5:00 PM EDT 05/13/2013 5:00 PM EDT John Hills MD POINT OF CARE TEST O RDERABLES Performing Organization Address [facility] Co de Phone Number [facility]ERTOCLEARSKY [facility] * POCT Glucose (05/13/2013 12:05 PM EDT) Glucose, POC 184 60 - 199 mg/dL CERNER MILLENNIUM Comment: Supplemental ranges: <110 mg/dL before meals <200 mg/dL all other times of the day Blood specimen (specimen) 05/13/2013 12:05 PM EDT 05/13/2013 12:05 PM EDT John Hills MD POINT OF CARE TEST O ZACH Performing Organization Address [facility] Co de Phone Number [facility] * POCT Glucose (05/13/2013 8:04 AM EDT) Glucose, POC 187 60 - 199 mg/dL [facility] MILLENNIUM Comment: Supplemental ranges: <110 mg/dL before meals <200 mg/dL all other times of the day Blood specimen (specimen) 05/13/2013 8:04 AM EDT 05/13/2013 8:04 AM EDT John Hills MD POINT OF CARE TEST O ZACH Performing Organization Address [facility] Co de Phone Number [facility] * (ABNORMAL) Basic Metabolic Panel (non-fasting) (05/13/2013 7:49 AM EDT) Glucose 177 60 - 199 mg/dL [facility] MILLENNIUM Comment:Diabetes: >=200 mg/d L plus symptoms Blood Urea Nitrogen 10 10 - 20 mg/dL CERNER MILLENNIUM Creatinine 0.40(L) 0.80 - 1.50 mg/dL CERNER MILLENNIUM Comment: Please note that the pediatric reference intervals supplied above were not validated [place] [facility] Results from pediatric patients should be interpreted [...] Resulting Agency Comment Spec In Lab John Hilsl MD CHEMISTRY ORDERABLES Performing Organization Address [facility] Co de Phone Number ROBERTA KENNEDYIUM * POCT Glucose (05/13/2013 4:12 AM EDT) Glucose, POC 167 60 - 199 mg/dL ISID[facility]ER MILLENNIUM Comment: Supplemental ranges: <110 mg/dL before meals <200 mg/dL all other times of the day Blood specimen (specimen) 05/13/2013 4:12 AM EDT 05/13/2013 4:12 AM EDT John Hills MD POINT OF CARE TEST O RDERABLES Performing Organization Address [facility] Co de Phone Number ROBERTA KENNEDYIUM * (ABNORMAL) POCT Glucose (05/13/2013 12:25 AM EDT) Glucose, POC 213(H) 60 - 199 mg/dL [facility] Comment: Supplemental ranges: <110 mg/dL before meals <200 mg/dL all other times of the day Blood specimen (specimen) 05/13/2013 12:25 AM EDT 05/13/2013 12:25 AM EDT John Hills MD POINT OF CARE TEST O ZACH Performing Organization Address [facility] Co de Phone Number [facility] * (ABNORMAL) Hemoglobin and Hematocrit, blood (05/12/2013 8:54 PM EDT) Hemoglobin 9.2(L) 13.7 - 17.5 gm/dL [facility] Hematocrit 26.8(L) 40.0 - 51.0 % [facility] Blood specimen (specimen) 05/12/2013 8:54 PM EDT 05/12/2013 9:00 PM EDT Narrative Resulting Agency Comment Spec In Lab John Hills MD HEMATOLOGY ORDERABLE S Performing Organization Address [facility] de Phone Number [facility] * POCT Glucose (05/12/2013 8:03 PM EDT) Glucose, POC 156 60 - 199 mg/dL [facility] Comment: Supplemental ranges: <110 mg/dL before meals <200 mg/dL all other times of the day Blood specimen (specimen) 05/12/2013 8:03 PM EDT 05/12/2013 8:03 PM EDT John Hills MD POINT OF CARE TEST O ZACH Performing Organization Address [facility] Co de Phone Number [facility] * (ABNORMAL) POCT Glucose (05/12/2013 4:39 PM EDT) Glucose, POC 216(H) 60 - 199 mg/dL [facility] Comment: Supplemental ranges: <110 mg/dL before meals <200 mg/dL all other times of the day Blood specimen (specimen) 05/12/2013 4:39 PM EDT 05/12/2013 4:39 PM EDT Narrative Authorizing Provider Result Nikkie Hills MD POINT OF CARE TEST O ZACH Performing Organization Address [facility] de Phone Number [facility] * (ABNORMAL) POCT Glucose (05/12/2013 12:41 PM EDT) Glucose, POC 226(H) 60 - 199 mg/dL [facility] Comment: Supplemental ranges: <110 mg/dL before meals <200 mg/dL all other times of the day Blood specimen (specimen) 05/12/2013 12:41 PM EDT 05/12/2013 12:41 PM EDT Narrative Authorizing Provider Result Nikkie Hills MD POINT OF CARE TEST O ZACH Performing Organization Address [facility] de Phone Number [facility] * POCT Glucose (05/12/2013 8:20 AM EDT) Glucose, POC 190 60 - 199 mg/dL [facility] Comment: Supplemental ranges: <110 mg/dL before meals <200 mg/dL all other times of the day Blood specimen (specimen) 05/12/2013 8:20 AM EDT 05/12/2013 8:20 AM EDT Narrative Authorizing Provider Result Nikkie Hills MD POINT OF CARE TEST Shala SERRANO Performing Organization Address [facility] de Phone Number [facility] * (ABNORMAL) Hemoglobin A1c (05/12/2013 4:15 AM EDT) Hemoglobin A1c 7.5(H) 4.3 - 6.1 % [facility] Comment: The [place] [employer] (ADA) has stated that HbA1c [...] 2013:36;suppl 1:S11-S66. Estimated Average Glucose 169 mg/dL [facility] Comment: eAG equivalents for HbA1c [...] into estimated average glucose values. ??Diabetes Care 2008:31(8):9415-9632. Blood specimen (specimen) 05/12/2013 4:15 AM EDT 05/12/2013 8:57 AM EDT Narrative Resulting Agency Comment Spec In Lab John Hills MD CHEMISTRY ORDERABLES [facility] * (ABNORMAL) Differential, Automated (05/12/2013 4:15 AM [...] John Hills MD HEMATOLOGY ORDERABLE S ROBERTA SANTIAGO * (ABNORMAL) Basic Metabolic Panel (non-fasting) (05/12/2013 4:15 AM EDT) Glucose 207(H) 60 - 199 mg/dL CERNER MILLENNIUM Comment:Diabetes: >=200 mg/d L plus symptoms Blood Urea Nitrogen 9(L) 10 - 20 mg/dL CERNER MILLENNIUM Creatinine 0.56(L) 0.80 - 1.50 mg/dL CERNER MILLENNIUM Comment: Please note that the pediatric reference intervals supplied above were not validated [place] [facility] Results from pediatric patients should be interpreted [...] In Lab John Hills MD CHEMISTRY ORDERABLES [facility] * (ABNORMAL) CBC (with Diff) (05/12/2013 4:15 AM EDT) Pathologist [facility] White Blood Cell 8.0 4.0 - 10.0 x10(3)/mc L [facility] Red Blood Cell 3.05(L) 4.63 - 6.08 x10(6)/mc L [facility] Hemoglobin 9.3(L) 13.7 - 17.5 gm/dL [facility] Hematocrit 27.0(L) 40.0 - 51.0 % [facility] Mean Cell Volume 88.5 79.0 - 92.0 fL [facility] Mean Cell Hemoglobin 30.5 25.6 - 32.2 pg [facility] Mean Cell Hemoglobin Concentration 34.4 32.0 - 36.5 gm/dL [facility] Platelet 191 145 - 370 x10(3)/mc L [facility] RDW Standard Deviation 42.4 35.0 - 46.0 fL [facility] RDW coefficient of variation 13.1 10.9 - 14.4 % [facility] Mean Platelet Volume 9.3 9.0 - 12.0 fL [facility] Blood specimen (specimen) 05/12/2013 4:15 AM EDT 05/12/2013 4:25 AM EDT Narrative Resulting Agency Comment Spec In Lab John Hills MD HEMATOLOGY ORDERABLE S Performing Organization Address [facility] Co de Phone Number [facility] * POCT Glucose (05/12/2013 3:59 AM EDT) [facility] Glucose, POC 195 60 - 199 mg/dL [facility] Comment: Supplemental ranges: <110 mg/dL before meals <200 mg/dL all other times of the day Blood specimen (specimen) 05/12/2013 3:59 AM EDT 05/12/2013 3:59 AM EDT John Hills MD POINT OF CARE TEST O RDERABLES Performing Organization Address City/[facility]/ZIP Co de Phone Number [facility] * (ABNORMAL) POCT Glucose (05/12/2013 1:01 AM EDT) Glucose, POC 222(H) 60 - 199 mg/dL [facility] Comment: Supplemental ranges: <110 mg/dL before meals <200 mg/dL all other times of the day Blood specimen (specimen) 05/12/2013 1:01 AM EDT 05/12/2013 1:01 AM EDT John Hills MD POINT OF CARE TEST O RDERAKENYA Performing Organization Address [facility] Co de Phone Number [facility] WEICLEARSKY [facility] * (ABNORMAL) POCT Glucose (05/11/2013 10:21 PM EDT) Glucose, POC 202(H) 60 - 199 mg/dL [facility] Comment: Supplemental ranges: <110 mg/dL before meals <200 mg/dL all other times of the day Blood specimen (specimen) 05/11/2013 10:21 PM EDT 05/11/2013 10:21 PM EDT John Hills MD POINT OF CARE TEST O ZACH Performing Organization Address [facility] de Phone Number [facility] * (ABNORMAL) Hemoglobin and Hematocrit, blood (05/11/2013 10:20 PM EDT) Hemoglobin 10.6(L) 13.7 - 17.5 gm/dL [facility] Hematocrit 30.4(L) 40.0 - 51.0 % [facility] Blood specimen (specimen) 05/11/2013 10:20 PM EDT 05/11/2013 10:25 PM EDT Narrative Resulting Agency Comment Spec In Lab John Hills MD HEMATOLOGY ORDERABLE S Performing Organization Address [facility] de Phone Number ROBERTA SANTIAGO * Potassium (05/11/2013 10:20 PM EDT) Potassium 4.3 3.5 - 5.0 mmol/L [facility] Comment: Please note: ??Patients with WBC >100,000 [...] Hills MD CHEMISTRY ORDERABLES Performing Organization Address [facility] Co de Phone Number ROBERTA WEIENNIUM * POCT Glucose (05/11/2013 8:47 PM EDT) Glucose, POC 174 60 - 199 mg/dL CERNER MILLENNIUM Comment: Supplemental ranges: <110 mg/dL before meals <200 mg/dL all other times of the day Blood specimen (specimen) 05/11/2013 8:47 PM EDT 05/11/2013 8:47 PM EDT John Hills MD POINT OF CARE TEST O RDERABLES Performing Organization Address [facility] de Phone [...] Comment: Total Hemoglobin (in gm/dL) ?Based on [facility] Hematology ranges: ?Age ?Reference Range Less than [...] POC 177 60 - 199 mg/dL CERNER ERIBERTOENNIUM Comment: Supplemental ranges: <110 mg/dL before meals <200 mg/dL all other times of the day Blood specimen (specimen) 05/11/2013 7:24 PM EDT 05/11/2013 7:24 PM EDT John Hills MD POINT OF CARE TEST O ZACH Performing Organization Address [facility] Co de Phone Number ROBERTA SANTIAGO * Specimen to Pathology (surgical or derm) (05/11/2013 6:40 PM EDT) AP Specimen 05/11/2013 6:40 PM EDT 05/11/2013 6:39 PM EDT Narrative [facility] KENNEDYI[facility] - 05/11/2013 6:40 PM EDT Specimen requisition ordered. ??Separate Pathology report to follow John Hills MD PATHOLOGY/CYTOLOGY O RDSILVIA Performing Organization Address [facility] Co de Phone Number ROBERTA SANTIAGO * (ABNORMAL) BLOOD GAS 2 ARTERIAL (05/11/2013 6:10 PM EDT) pH, Arterial 7.44 CERNER MILLENNIUM PCO2, Arterial 35 mmHg CERNE R MILLENNIUM PO2, Arterial 145(H) mmHg CERNER MILLENNIUM Bicarbonate, Arterial 23.3 mmol/L CERNER MILLENNIUM Base Excess, Arterial -0.9 mmol/L CERNER MILLENNIUM Hgb Blood Gas 12.6(L) gm/dL CERNER MILLENNIUM Comment: Total Hemoglobin (in gm/dL) ?Based [place] [facility] Hematology ranges: ?Age ?Reference Range Less than [...] Comment: Total Hemoglobin (in gm/dL) ?Based on [facility] Hematology ranges: ?Age ?Reference Range Less than [...] 4:48 PM EDT) Frozen Section Report ? [facility] ? Provider: ?? JOHN HILLS ?? Pt. Name: ?? ADRIEN CHEUNG ? Acc #: ?[id number] ?Pt. ? Col Date: ?? 05/11/2013 ? [...] PM EDT) Surgical Pathology Report ? [facility] ? Provider: ?? JOHN HILLS ?? Pt. Name: ?? ADRIEN CHEUNG ? Acc #: ?[id number] ?Pt. ? Col Date: ?? 05/11/2013 ? [...] resection: ? Unremarkable seminal vesicle. ? [facility] ? Provider: ?? JOHN HILLS ?? Pt. Name: ?? ADRIEN CHEUNG ? Acc #: ?[id number] ?Pt. ? Col Date: ?? 05/11/2013 ? [...] 7. ? Length/Diameter: 30/4 cm. ? Serosa: [place], smooth and glistening with retraction at the [...] (tumor): 0.3 cm (left anterior). ? [facility] ? Provider: ?? JOHN HILLS ?? Pt. Name: ?? ADRIEN CHEUNG ? Acc #: ?[id number] ?Pt. ? Col Date: ?? 05/11/2013 ? /Sex: ?1955,(57 years),Male ? Rec Date: ?? 05/11/2013 ? LOC: ?4[facility]ST ? SURGICAL PATHOLOGY ? OTHER ? Lymph Nodes: The lymph nodes are divided into primary and secondary alok ? basins. ? Remaining Bowel: Red, hemorrhagic without further lesions. ? Sections/Processing : Four rental sales representative sections of the left anterior ? [...] of seminal vesicle. ? Sections/Processing : A rental sales representative section is submitted for frozen ? section as FS 1. ??(1) FS 1; (2) remaining tissue. ??(T2) ??sns ? ---Clinical Information--- ? Specimen Submitted: ? A - Prostate margin, for frozen section ? B - Left seminal vesicle, for frozen section ? Clinical History: ? Rectal cancer ? Clinical Diagnosis: ? Same [facility] 05/11/2013 4:48 PM EDT John Hills MD PATHOLOGY/CYTOLOGY O RDERAKENYA [facility] * Specimen to Pathology (surgical or derm) (05/11/2013 4:48 PM EDT) AP Specimen 05/11/2013 4:48 PM EDT 05/11/2013 4:48 PM EDT Narrative CERJORGE LUIS MILLENNIUM - 05/11/2013 4:48 PM EDT Specimen requisition [...] Comment: Total Hemoglobin (in gm/dL) ?[place] [facility] Hematology ranges: ?Age ?Reference Range Less than [...] CARE TEST O RDERAKENYA Performing Organization Address [facility] de Phone Number [facility] ExactFlatIUM * (ABNORMAL) POCT Glucose (05/11/2013 3:23 PM EDT) Glucose, POC 223(H) 60 - 199 mg/dL CERNER MILLENNIUM Comment: Supplemental ranges: <110 mg/dL before meals <200 mg/dL all other times of the day Blood specimen (specimen) 05/11/2013 3:23 PM EDT 05/11/2013 3:23 PM EDT John Hills MD POINT OF CARE TEST O RDERAKENYA Performing Organization Address City/[facility] Co de Phone Number [facility] MILLENNIUM * POCT Glucose (05/11/2013 2:49 PM [...] Comment: Total Hemoglobin (in gm/dL) ?[place] [facility] Hematology ranges: ?Age ?Reference Range Less than [...] Comment: Total Hemoglobin (in gm/dL) ?Based [place] [facility] Hematology ranges: ?Age ?Reference Range Less than [...] MD POINT OF CARE TEST O ZACH ISIDROJORGE LUIS MILLENNIUM * (ABNORMAL) POCT Glucose (05/11/2013 12:26 PM [...] Comment: Total Hemoglobin (in gm/dL) ?[place] [facility] Hematology ranges: ?Age ?Reference Range Less than [...] Comment: Total Hemoglobin (in gm/dL) ?Based on [facility] Hematology ranges: ?Age ?Reference Range Less than [...] Comment: Total Hemoglobin (in gm/dL) ?Based on [facility] Hematology ranges: ?Age ?Reference Range Less than [...] Comment: Total Hemoglobin (in gm/dL) ?Based on [facility] Hematology ranges: ?Age ?Reference Range Less than [...] Comment: Total Hemoglobin (in gm/dL) ?Based on [facility] Hematology ranges: ?Age ?Reference Range Less than [...] CARE TEST O ZACH Performing Organization Address City/[facility] Co de Phone Number ROBERTA SANTIAGO * POCT Glucose (05/11/2013 6:15 AM EDT) [facility] Signature Glucose, POC 183 60 - 199 mg/dL CERNER MILLENNIUM Comment: Supplemental ranges: <110 mg/dL before meals <200 mg/dL all other times of the day Blood specimen (specimen) 05/11/2013 6:15 AM EDT 05/11/2013 6:15 AM EDT John Hills MD POINT OF CARE TEST O ZACH Performing Organization Address [facility] Co de Phone Number ROBERTA SANTIAGO documented in this encounter Visit Diagnoses Not on filedocumented in this encounter Active and Recently Administered [...] Mercy Marcum RN)1247 (Given - Provider: Miriam Jade, GET)1657 (Not Given - Provider: Mercy Marcum RN - Reason: Order parameters not met)1999 (Not Given - Provider: Tabitha Schafer RN [...] Discontinued, Routine 1040 (Given - Provider: Leti Mandujano, GET) insulin glargine (LANTUS) PEN injection 18 Units [...] Radha 05/12/13 at 1231, Until Thu05/18/13 at 1956, Administer over 15 Minutes, Nausea 2113 (See Alternative - Provider: Tabitha Schafer RN) 0000 (Given - Provider: Tabitha Schafer RN) ondansetron (ZOFRAN) injection 4 mg (CANCELED)(Linked Group 3) 4 mg, Intravenous, EVERY 8 HOURS PRN, Starting on Radha 05/12/13 at 1231, Until Thu05/18/13 at 1956, Nausea 2113 (Given - Provider: Tabitha Schafer RN) 0000 (See Alternative - Provider: Tabitha Schafer RN) OXYcodone (ROXICODONE) immediate release tablet 5-15 mg (CANCELED) 5-15 mg, Oral, EVERY 4 HOURS PRN, Starting on 05/14/13 at 1249, Until Thu05/18/13 at 1956, offer to pt if pain not relieved with tylenol/toradol. Do not take on empty stomach, Routine 0806 (Given - Provider: Mercy Marcum RN)1406 (Given - Provider: Miriam Jade RN)1901 (Given - Provider: Mercy Marcum RN) 0412 (Given - Provider: Tabitha Schafer RN)0845 (Given - Provider: Leti Mandujano RN)1505 (Given - Provider: Leti Mandujano RN)2106 (Given - Provider: Tabitha Schafer RN) 0213 (Given - Provider: Tabitha Schafer, GET)0626 (Given - Provider: Tabitha Schafer RN)1442 (Given [...] Thu05/12/13 at 1231, Until Thu05/18/13 at 1957, Nausea Or ondansetron (ZOFRAN) 8 mg in sodium chloride 0.9% 50 mL (CANCELED)Jump to med 8 mg, Intravenous, EVERY 8 HOURS PRN, Starting on Thu05/12/13 at 1231, Until Thu05/18/13 at 1957, Administer over 15 Minutes, Nausea documented in this encounter Care Teams Shop Tailor Apprentice Relationship Specialty Start Date End Date Randa Rosas APRN [address] [place] [address] PCP - General 12/29/12 04/16/22 documented as of this encounter
--- OUTSIDE RECORDS SUMMARY | 2024-11-18 17:01 | XMS_ITS | Encounter Summary ---
Author Organization [facility] [place] [address] Care Team Providers Care [employer] Name Role Phone Randa Rosas APRN Primary Care Provider +1- [phone] Reason for Visit * Reason Onset Date Comments Medication Refill 03/22/2013 Encounter Details Date Type Department Care Team (Late st Contact Info) Description 03/22/2013 Refill Hematology Oncology at [address] [phone] Nas Dobbs MD Rectal cancer (Primary Dx) Social History Tobacco [...] rectum documented in this encounter Care Teams [employer] Relationship Specialty Start Date End Date Randa Rosas APRN [address] [facility] [address] PCP - General 12/29/12 04/16/22 documented as of this encounter
--- OUTSIDE RECORDS SUMMARY | 2024-11-18 17:01 | XMS_ITS | Encounter Summary ---
Author Organization [facility] Address [facility] [place] [address] Care Team Providers Care Gis Database Administrator Name Role Phone Randa Rosas APRN Primary Care Provider +1- [phone] Reason for Visit * Reason Comments Other Encounter Details Date Type Department Care Team (Late st Contact Info) Description 01/20/2013 5:00 PM EST Office Visit Hematology Oncology at [address] [phone] CLINIC, DR OQUENDO HEM/ONC Nas Dobbs MD [...] Progress Notes * Miriam Dubois RN - 01/21/2013 8:28 AM EST Patient in for nursing assessment of mediport dressing. Biopatch came out from under the needle, although dressing remained intact - dressing/biopatch replaced using sterile technique. No other complaints. documented in this encounter Plan of Treatment Not on file documented as of this encounter Visit Diagnoses Diagnosis Rectal cancer- Primary Malignant neoplasm of rectum documented in this encounter Care Teams Gis Database Administrator Relationship Specialty Start Date End Date Randa Rosas APRN [address] [place] [phone] PCP - General 12/29/12 04/16/22 documented as of this encounter
--- OUTSIDE RECORDS SUMMARY | 2024-11-18 17:01 | XMS_ITS | Encounter Summary ---
Author Organization [facility] Address [facility] [place] [address] Care Team Providers Care Technical Administrator Name Role Phone Randa Rosas APRN Primary Care Provider +1- [phone] Encounter Details Date Type Department Care Team (Latest Contact Info) Description 04/06/2013 4:15 PM EDT - 04/06/2013 11:59 PM EDT Hospital [place] [address] CLINIC, Bobby Gutierrez MD Rectal cancer Discharge Disposition: Home Social [...] Notes * Miscellaneous - Provider, Scanning - 04/08/2013 11:03 AM EDT documented in this encounter Plan of Treatment Not on file documented as of this encounter Procedures Procedure Name Priority Date/Time Associated Diagnosis Comments CT CHEST ABDOMEN PELVIS W CONTRAST (GENERIC) Routine 04/06/2013 6:10 PM EDT Rectal cancer documented in this [...] Site iohexol (OMNIPAQUE) 350 mg iodine/mL injection 38,500 mg 38,500 mg (110 mL), Intravenous, ONCE PRN, 1 dose, Starting on Thu04/06/13 at 1803, Until Thu04/06/13 at 1809, Per Protocol, Routine Given 04/06/2013 6:09 PM EDT 38,500 mg iohexol (OMNIPAQUE) radiology oral prep (50 mL of oral contrast) 50 mL 50 mL, Oral, ONCE PRN, per protocol, Starting on Thu04/06/13 at 1803, 1 dose, Until Thu04/06/13 at 1600 Given 04/06/2013 4:00 PM EDT 50 mLs documented in this encounter Care Teams Technical Administrator Relationship Specialty Start Date End Date Randa Rosas APRN [address] [place] [address] PCP - General 12/29/12 04/16/22 documented as of this encounter
--- OUTSIDE RECORDS SUMMARY | 2024-11-18 17:01 | XMS_ITS | Encounter Summary ---
Author Organization [facility] Address [facility] [place] [address] Care Team Providers Care Biochemistry Technician Name Role Phone Randa Rosas APRN Primary Care Provider +1- [phone] Reason for Visit * Reason Comments Chemotherapy CADD pump connect Encounter Details Date Type Department Care Team (Late st Contact Info) Description 02/22/2013 4:00 PM EDT Office Visit Hematology Oncology at [address] [phone] CLINIC, DR OQUENDO HEM/ONC Rectal cancer (Primary [...] as of this encounter Progress Notes * Deborah Adrian RN - 02/22/2013 4:09 PM EDT INFUSION THERAPY ADMINISTRATION NOTES DIAGNOSIS: Rectal CA CYCLE #: Continuous Infusion 5FU via CADD pump - Concurrent with XRT REASON FOR VISIT: Initiation of continunous home 5FU infusion via CADD pump provided by [facility] SUBJECTIVE Mr. Salazar is here for his CADD pump change. He offers no complaints. OBJECTIVE LAB DATA: wbc 8.22, hgb 13.1, plts 332k, anc 6.80 Deaccessed mediport for needle and dressing change. Skin directly above mediport and below biopatchred with small area of skin breakdown. Dr. Dobbs notified and assessed. Dr. Dobbs felt the redness was due to a skin reaction/sensitivity to the BioPatch. Dr. Dobbs would like to proceed with re-accessing mediport and chemotherapy but does not want to use BioPatch. BioPatch not used today when re- accessing mediport per Dr. Dobbs. Reaccessed mediport at 1555. No blood return obtainable. Dr. Dobbs notified and ordered CathFlow (Altepase) 2mg. CathFlo instilled at 1605. Pre administration: Chemotherapy orders independently verified for drug name, route, and dosage per patient's height, weight and BSA by Leidy Matias RN and Severiano Adrian RN At time of administration Patient identity verified using patient's name and date of at the chair/bedside with Severiano Adrian RN and Kimber Dubois RN just prior to initiating the patient's home infusion chemotherapy via CADD pump provided by [facility]. Fluorouracil 515mg per day, IV via CADD pump started at 1635. Pump verified at 1650 by Severiano Adrian RN and Li Wilhelm RN and 0.1 cc had infused. REACTIONS (DESCRIPTION, TIME, INTERVENTION AND EFFECTIVENESS) none ASSESSMENT Mr. Salazar was awake, alert and he tolerated treatment well. PLAN Return to clinic on Thursday for pump deaccess (completes XRT on Thursday). Patient was reminded to call or stop at nurses station with any questions/concerns. documented in this encounter [...] 2 mg, INTRA-CATHETER, ONCE, 1 dose, On Thu02/22/13 at 1645, Instill into occluded lumen as directed., Routine Given 02/22/2013 4:05 PM EDT 2 mg documented in this encounter Care Teams Biochemistry Technician Relationship Specialty Start Date End Date Randa Rosas APRN [address] [place] [address] PCP - General 12/29/12 04/16/22 documented as of this encounter
--- OUTSIDE RECORDS SUMMARY | 2024-11-18 17:01 | XMS_ITS | Encounter Summary ---
Author Organization [facility] [place] [address] Care Team Providers Care Slide Fasteners Inspector Name Role Phone Randa Rosas APRN Primary Care Provider +1- [phone] Encounter Details Date Type Department Care Team (Latest Contact Info) Description 04/06/2013 3:20 PM EDT Clinical Support Same Day at [facility] [place] [phone] Rectal cancer (Primary Dx) Social History Tobacco [...] Taken Comments Blood Pressure - - Pulse 98 04/06/2013 4:08 PM EDT Temperature - - Respiratory Rate - - Oxygen Saturation 99% 04/06/2013 4:08 PM EDT Inhaled Oxygen Concentration - - Weight - - Height - - Body Mass Index - - documented in this encounter Progress Notes * Delores Patel RN - 04/06/2013 4:58 PM EDT Preadmission testing - PAT questionnaire reviewed with patient and his girlfriend here in PAT. He states no previous problems with anesthesia. He has a history of hypertension and diabetes. He is currently being treated for rectal cancer. He has bowel prep instructions from Dr. Hills's office. Lab work done here today as ordered. DOS - not yet booked, stated to be 04/27/13. documented in this encounter Plan of Treatment Not on file documented as of this encounter Procedures Procedure Name Priority Date/Time Associated Diagnosis Comments EKG 12-LEAD Routine 04/06/2013 4:45 PM EDT Rectal cancer documented in this encounter Results * EKG 12 Lead (04/06/2013 4:45 PM EDT) Ventricular rate 77 BPM MUSE SYSTEM Atrial Rate 77 BPM MUSE SYSTEM P-R Interval 166 ms MUSE SYSTEM QRS Duration 90 ms MUSE SYSTEM Q-T Interval 372 ms MUSE SYSTEM QTC Calculated (Bezet) 420 ms MUSE SYSTEM Calculated P [place] 55 degrees MUSE SYSTEM Calculated R [place] 33 degrees MUSE SYSTEM Calculated T [place] 43 degrees MUSE SYSTEM INTERPRETATION Normal sinus rhythm Normal ECG No previous ECGs available Confirmed by MD TEZ, HONORIO ([id number]) on 04/06/2013 9:30:59 PM MUSE SYSTEM 04/06/2013 4:45 PM EDT 04/06/2013 9:30 PM EDT Bobby Hills MD ECG ORDERABLES MUSE SYSTEM documented in this encounter Visit Diagnoses Diagnosis Rectal cancer- Primary Malignant neoplasm of rectum documented in this encounter Care Teams Slide Fasteners Inspector Relationship Specialty Start Date End Date Randa Rosas APRN [address] [place] [address] PCP - General 12/29/12 04/16/22 documented as of this encounter
--- OUTSIDE RECORDS SUMMARY | 2024-11-18 17:01 | XMS_ITS | Encounter Summary ---
Author Organization [facility] Address [facility] [place] [address] Care Team Providers Care Clinical Project Leader Name Role Phone Randa Rosas APRN Primary Care Provider +1- [phone] Encounter Details Date Type Department Care Team (Late st Contact Info) Description 04/07/2013 Notes Only Hematology Oncology at [address] [phone] Nas Dobbs MD Social History [...] as of this encounter Progress Notes * Nas Dobbs MD - 04/07/2013 10:56 AM EDT We received a phone call regarding an [...] on filedocumented in this encounter Care Teams Clinical Project Leader Relationship Specialty Start Date End Date Randa Rosas APRN [address] [place] [address] PCP - General 12/29/12 04/16/22 documented as of this encounter
--- OUTSIDE RECORDS SUMMARY | 2024-11-18 17:01 | XMS_ITS | Encounter Summary ---
Author Organization [facility] Address [facility] [place] [address] Care Team Providers Care Braille Transcriber Name Role Phone Randa Rosas APRN Primary Care Provider +1- [phone] Reason for Visit * Reason Comments Other completed course of XRT Encounter Details Date Type Department Care Team (Latest Contact Info) Description 02/25/2013 Unscheduled Encounter Radiation Oncology at [address] [phone] Nuria Preston RN Rectal cancer (Primary Dx) Social History [...] as of this encounter Progress Notes * Nuria Esposito RN - 02/25/2013 4:08 PM EDT Radiation Oncology Nursing Completion of Treatment Note Pt completed 28 Fxs totaling 5040 cGY to pelvis for rectal carcinoma. . Side effects/problems noted during today: He denies any complaints. He is pleased to have completedboth chemo and radiation today. Teaching and discharge instructions reviewed:none today. He states he is aware of his upcoming follow up appts. Patient has our contact numbers : [phone]-weekday business hours [phone]- weekends, ask for radiation oncologist mobile application architect Expected follow up/referrals: The following appts are in the computer system: Jose Antonio 03/04 & Dr Dobbs 03/08 and 03/24 Dr Hills at [facility] documented in this encounter Plan of Treatment Not on file documented as of this encounter Visit Diagnoses Diagnosis Rectal cancer- Primary Malignant neoplasm of rectum documented in this encounter Care Teams Braille Transcriber Relationship Specialty Start Date End Date Randa Rosas APRN [address] [place] [address] PCP - General 12/29/12 04/16/22 documented as of this encounter
--- OUTSIDE RECORDS SUMMARY | 2024-11-18 17:01 | XMS_ITS | Encounter Summary ---
Author Organization [facility] Address [facility] [place] [address] Care Team Providers Care Gang Sawyer Name Role Phone Randa Rosas APRN Primary Care Provider +1- [phone] Reason for Visit * Reason Onset Date Comments Medication Refill 04/07/2013 Encounter Details Date Type Department Care Team (Late st Contact Info) Description 04/07/2013 Refill Hematology Oncology at [address] [phone] Sunitha Matias RN Rectal cancer (Primary Dx); Blood clot [...] site documented in this encounter Care Teams Gang Sawyer Relationship Specialty Start Date End Date Randa Rosas APRN [address] [place] [phone] PCP - General 12/29/12 04/16/22 documented as of this encounter
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
--- OUTSIDE RECORDS SUMMARY | 2024-11-18 17:01 | XMS_ITS | Encounter Summary ---
Author Organization [facility] Address [facility] [place] [address] Care Team Providers Care Lobsterman Name Role Phone Randa Rosas APRN Primary Care Provider +1- [phone] Encounter Details Date Type Department Care Team (Late st Contact Info) Description 04/07/2013 Telephone [place] [phone] Bobby Hills MD Social History Tobacco Use Types Packs/Day [...] encounter Miscellaneous Notes * Telephone Encounter - Bobby Hills - 04/07/2013 10:[address] Dobbs re: Mediport thrombus. He will arrange lovenox. Lovenox will need to be held for 24 hrs preop (if one daily dosing) or 12 hrs preop (if BID dosing). documented in this encounter Plan of Treatment Not on file documented as of this encounter Visit Diagnoses Not on filedocumented in this encounter Care Teams Lobsterman Relationship Specialty Start Date End Date Randa Rosas APRN [address] [place] [address] PCP - General 12/29/12 04/16/22 documented as of this encounter
--- OUTSIDE RECORDS SUMMARY | 2024-11-18 17:01 | XMS_ITS | Encounter Summary ---
Author Organization [facility] Address [facility] [place] [address] Care Team Providers Care Invasive Physician Name Role Phone Randa Rosas APRN Primary Care Provider +1- [phone] Reason for Visit * Reason Comments Radiation Treatment Encounter Details Date Type Department Care Team (Late st Contact Info) Description 02/09/2013 7:00 PM EDT Follow-Up Radiation Oncology at [address] [phone] Jensen Wills MD Rectal cancer (Primary Dx) [...] Sign Reading Time Taken Comments Blood Pressure 138/84 02/09/2013 7:02 PM EDT Pulse - - Temperature - - Respiratory Rate 18 02/09/2013 7:02 PM EDT Oxygen Saturation 96% 02/09/2013 7:02 PM EDT Inhaled Oxygen Concentration - - Weight 108.2 kg (238 lb 8 oz) 02/09/2013 7:02 PM EDT Height - - Body Mass Index 37.88 02/08/2013 3:10 PM EDT documented in this encounter Progress Notes * Jensen Wills MD - 02/09/2013 7:00 PM EDT ON TREATMENT VISIT: DATE:02/02/2013 PATIENT STATUS: The [...] of the chest abdomen and pelvis in [place] was read out as completely negative. The patient deniesrectal bleeding. He has persistent perineal heaviness with difficulty in moving his bowels. He has no urinary symptoms. The patient will require abdominoperineal resection. He is very apprehensive about a permanent colostomy. The patient will benefit from neoadjuvant chemoradiation prior to surgical resection . Neoadjuvant chemoradiation will improve his local control. According to The [place] Rectal Cancer trial group Thefive-year cumulative incidence [...] p 4500 01/19 to DOSE to DATE 2880: cGy in 16 FX RADIATION TREATMENT IMAGING: matches original approved images/bz ON TREATMENT EVALUATION: MEDICAL: no complaints PHYSICAL: 0 AIDS Rx for Pyridium 200 mg bid Drink Cran or pom juice: LABS : TOXICITY:0 REFER TO NURSES UPDATED NOTES RESPONSE TO TREATMENT: good MANAGEMENT PLAN: CONTINUE TREATMENT PLANNED: XX CHANGE TREATMENT HOLD TREATMENT STOP TREATMENT Discussion time with patient (face to face)15 min. documented in this encounter Plan of Treatment Not on file documented as of this encounter Visit Diagnoses Diagnosis Rectal cancer- Primary Malignant neoplasm of rectum documented in this encounter Care Teams Invasive Physician Relationship Specialty Start Date End Date Randa Rosas APRN [address] [place] [address] PCP - General 12/29/12 04/16/22 documented as of this encounter
--- OUTSIDE RECORDS SUMMARY | 2024-11-18 17:01 | XMS_ITS | Encounter Summary ---
Author Organization [facility] [place] [address] Care Team Providers Care Kitchen And Bath Designer Name Role Phone Randa Rosas APRN Primary Care Provider +1- [phone] Reason for Visit * Reason Onset Date Comments Medication Refill 04/07/2013 Encounter Details Date Type Department Care Team (Late st Contact Info) Description 04/07/2013 Refill Hematology Oncology at [address] [phone] Meg Kaur RN Rectal cancer (Primary Dx); Blood clot [...] site documented in this encounter Care Teams Kitchen And Bath Designer Relationship Specialty Start Date End Date Randa Rosas APRN [address] [facility] [place] [id number] PCP - General 12/29/12 04/16/22 documented as of this encounter
--- OUTSIDE RECORDS SUMMARY | 2024-11-18 17:02 | XMS_ITS | Clinical Summary ---
Author Organization [facility] Address [address] [place] [address] Care Team Providers Care Glass Products Inspector Name Role Phone Edward Montalvo MD Primary Care Provider +1 -[phone] Social History Tobacco Use Types Packs/Day Years Used Date Smoking Tobacco: Never Assessed Interpersonal Safety Answer Date Record ed Physically Hurt Never 07/01/2020 Verbally Threaten Not on file 07/01/2020 Sex and Gender Information Value Date Recorded Sex Assigned at Not on file Legal Sex Male 18:03 EST Gender Identity Not on file Sexual Orientation Not on file Plan of Treatment Health Maintenance Due Date Last Done Comments Hepatitis C Screen 1955 Fall Risk Screening 2021 COVID-19 Vaccine (2023-25 season) 2024 RSV Immunization ( o r 60+ Years) (1 - 1-dose 75+ series) 2031 Insurance [employer] Care Teams Glass Products Inspector Relationship Specialty Start Date End Date Edward Montalvo MD PCP - General 10/21/15
--- OUTSIDE RECORDS SUMMARY | 2024-11-18 17:02 | XMS_ITS | Encounter Summary ---
Author Organization [facility] Address [facility] [place] [address] Care Team Providers Care Instructional Materials Director Name Role Phone Randa Rosas APRN Primary Care Provider +1- [phone] Reason for Visit * Reason Comments Radiation Consult Encounter Details Date Type Department Care Team (Late st Contact Info) Description 01/07/2013 9:00 AM EST Office Visit Radiation Oncology at [address] [phone] Richie Brady MD [facility] [place] [address] Rectal cancer (Primary Dx) Discharge Disposition: Home [...] Reading Time Taken Comments Blood Pressure 117/68 01/07/2013 8:23 AM EST Pulse 101 01/07/2013 8:23 AM EST Temperature 36.8 ??C (98.2 ??F) 01/07/2013 8:23 AM ES T Respiratory Rate 18 01/07/2013 8:23 AM EST Oxygen Saturation 96% 01/07/2013 8:23 AM EST Inhaled Oxygen Concentration - - Weight 112 kg (247 lb) 01/07/2013 8:23 AM EST Height - - Body Mass Index 39.23 01/05/2013 3:14 PM EST documented in this encounter Progress Notes * Richie Brady MD - 01/09/2013 7:35 PM EST Reg Salazar is a 57 y.o. male who is seen in consultation in the section of Radiation Oncology at [facility] at the request of Dr. Nas Dobbs regarding neoadjuvant radiation therapy in the management of rectal carcinoma. Patient Active Problem List Diagnoses Date Noted ??? Rectal cancer 01/09/2013 History of Present Illness: Mr.Reg Salazar is a very pleasant 57-year-old male who was recently diagnosed with rectal adenocarcinoma. The patient presented with diarrhea not responding to symptomatic management. Colonoscopy showed a near circumferential mass extending just above the anal verge up to 10 cm inside the rectum. Additionally a polyp was found at 16 cm. Pathology indicated the patient had an invasiveadenocarcinoma of the rectum and the polyp showing tubulovillous adenoma. The polyp was not removed. CT scan of the chest abdomen and pelvis in [place] was read out as completely negative. The patient deniesrectal bleeding. He has persistent perineal heaviness with difficulty in moving his bowels. He has no urinary symptoms. Review of Systems: Constitutional: Positive for fatigue (but still working approx 50 hrs a week). Negative for appetite change and unexpected weight change (he denies loosing any weight). Some difficulty with sleep with frequent diarrhea. HENT: Negative. Negative for hearing loss. Eyes: Negative. Wears glasses for reading Respiratory: Negative. Negative for cough and wheezing. Cardiovascular: Negative. Negative for chest pain. Gastrointestinal: No rectal bleeding. Has intermittent rectal pain that is relieved by Advil or Percocet. Takes prescription medication for diarrhea( ?lomotil) about 2 times a day and kaopectate in between. He as someformed stool with liquid. Genitourinary: Positive for difficulty urinating (sometimes he has difficulty in getting stream going if he needs to pass flatus first.). Negative for urgency, frequency, hematuria and decreased urine volume. Musculoskeletal: Negative. Negative for back pain and arthralgias. Neurological: Negative. Negative for dizziness, seizures, speech difficulty, light-headedness and headaches. Psychiatric/Behavioral: Negative. Contraindications to Radiotherapy: NO: YES: Date, site, dose (women only) N/A Prior Radiotherapy x Past Medical History Diagnosis Date ??? ED [...] adenoidectomy ??? Vasectomy ??? Pilonidal cyst excision Patient's Medications New Prescriptions No medications on file Previous Medications ATORVASTATIN (LIPITOR) 40 MG TABLET Take 20 mg by mouth daily. 1/2 tab= 20mg CHOLESTYRAMINE (QUESTRAN) 4 GRAM PACKET Take 1 packet by mouth daily. 1-2 times a day GLIPIZIDE (GLUCOTROL) 10 MG 24 HR TABLET [...] Take 100 mg by mouth as needed. SITAGLIPTIN-METFORMIN (JANUMET) 50-1,000 MG PER TABLET Take 1 tablet by mouth 2 times daily (with meals). Modified Medications No medications on file Discontinued Medications No medications on file Allergies Allergen Reactions ??? Penicillins RASH History Social History ??? Marital Status: Spouse Name: N/A Number of Children: N/A ??? 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 Smoking status: [...] ??? Diabetes Father no famly h/o cnancer Physical Examination: Filed Vitals: 01/07/13 0823 BP: 117/68 Pulse: 101 Temp: 36.8 ??C (98.2 ??F) TempSrc: Oral Resp: 18 Weight: 112.038 kg (247 lb) SpO2: 96% A pleasant gentleman, looks his stated age. [place] 81. Has no evidence of peripheral adenopathy. Chest is clear to auscultation. Heart with regular rate and rhythm. Abdomen: Soft with no organomegaly No hernia appreciated. Local examination reveals normal phallus and testicles. No inguinal hernias. Rectal examination reveals sphincter with good tone with a large circumferential polypoid lesion palpable approximately 2 cm from the anal verge, tender. No bleeding is encountered on examination. Lower extremities with no edema. Assessment: Mr.Mark Emmanuelle Salazar is a very pleasant 57-year-old male with low lying adenocarcinoma of the rectum 2 cm from the anal verge and extending to the rectosigmoid junction. He has no evidence of metastases. Plan: - Complete staging work up with CEA level, MRI and surgical evaluation. - The patient will require abdominoperineal resection. He is very apprehensive about a permanent colostomy. The patient will benefit from neoadjuvant chemoradiation prior to surgical resection . Neoadjuvant chemoradiation will improve his local control. According to The [place] Rectal Cancer trial group Thefive-year cumulative incidence [...] and willstart treatment after scheduled evaluation and studies.. Thank you for allowing us to participate in the care of this pleasant patient. Time of the consultation was 60 minutes, 40 minutes in counseling. * Nuria Esposito RN - 01/07/2013 10:01 AM EST Initial Patient Education for Radiation Treatments Literature reviewed and given to patient : #1 Radiation Therapy and You a Guide to Self-Help During Cancer Treatment U.[place]. Department of Health and Human Services National Institutes of Health Publication No. 07-7157 National Cancer [place] Revised January 2007 #2 [facility];Shared drive/info for RT Patients: a) Information for Patients Receiving Radiation Therapy b) Managing Cancer Treatment Related Fatigue Adapted from Cancersytoms.org Information for understanding cancer c) Skin Care for Patients Receiving Radiation Therapy d) Radiation Therapy Billing Information EMD e) Disease site specific Information: Information for Patients Receiving Radiation Therapy To The pelvis #3 Miscellaneous: Dietary Guidelines:Diarrhea Management([place] [employer]) Imodium: dosing guidelines for radiation induced diarrhea. Jeans cream supplied with the instructions to apply to site of radiation twice a day, but not less than 3 hours before radiation treatment. Contact information: If you have any questions or concerns regarding your cancer, please call: During business hours: [facility] [phone] ext [phone] or [phone] (nursing extensions) Weekend/holidays/nights: [facility] [phone] and ask for the correctional therapy director radiation oncologist For general medical questions not related to cancer; Please contact your primary physician. For medical emergencies needing immediate attention;contact local primary physician, go to local hospital emergency room,or call 911. Patient verbalized understanding . * Nuria Esposito RN - 01/07/2013 8:48 AM EST RADIATION ONCOLOGY NURSING INITIAL NURSING ASSESSMENT ADVANCE DIRECTIVES: In EDH [ no ] Has documents [ yes ] Will bring in [yes ] IF NO: Advance Directive pamphlet provided: [ ] Referral to Care Management : [ ] PRESENTING SYSTEMS and PATHOLOGY: uncontrollable diarrhea started August 2012. Colonocscopy 11/1812showed rectal mass, biopsy confirmed carcinoma REVIEW OF SYSTEMS:Review of Systems Constitutional: Positive for fatigue (but still working approx 50 hrs a week). Negative for appetite change and unexpected weight change (he denies loosing any weight). Some difficulty with sleep with frequent diarrhea. HENT: Negative. Negative for hearing loss. Eyes: Negative. Wears glasses for reading Respiratory: Negative. Negative for cough and wheezing. Cardiovascular: Negative. Negative for chest pain. Gastrointestinal: No rectal bleeding. Has intermittent rectal pain that is relieved by Advil or Percocet. Takes prescription medication for diarrhea( ?lomotil) about 2 times a day and kaopectate in between. He as someformed stool with liquid. Genitourinary: Positive for difficulty urinating (sometimes he has difficulty in getting stream going if he needs to pass flatus first.). Negative for urgency, frequency, hematuria and decreased urine volume. Musculoskeletal: Negative. Negative for back pain and arthralgias. Neurological: Negative. Negative for dizziness, seizures, speech difficulty, light-headedness and headaches. Psychiatric/Behavioral: Negative. Prior Radiotherapy: [x ] no [ ] yes Site: Date: Facility: Prior Chemotherapy: [ x ] no [ ] yes Drug: Oncologist- LastTreatment: Prior hormone treatment/medications: [x ] no [ ] Yes Drug: LastTreatment: RADIATION SPECIFIC REVIEW: NO: YES: Claustrophobia or requires sedation for MRIs x Allergy to CT or MRI contrast agent or iodine or shellfish x Diabetic and on metformin x Metal in body, implanted device, worked with metal, body piercings,braces x Dentures or hearing device X.x Pacemaker x Difficulty breathing while lying flat x Kidney problems/creatinine x Balance difficulty: [ x ]no [ ]yes At risk for fall: [x ] no [ ] yes If yes, actions implemented to prevent fall: Patient/family instructed to avoid independent ambulation. Use wheelchair and ask for assistance of staff while in the clinic. ADL [ x ] no limits [ ] needs dressing assistance [ ] needs meal assistance Assistive device:[ x ]none [ ]cane [ ]walker [ ]wheelchair [ ]other: explain PAIN ASSESSMENT: [0 ] out of 10 Location: rear end no pain Advil helped this morning, sometimes takes percocet if pain gets worse Description: [ x ] Dull [ ] Sharp [ x ] Burning [ ] Throbbing [ ] Radiating [ ] Continuous [ ]Intermittent Aggravating Factors: [ ] Movement [ ] Position [ ]Immobility [ x ]Other advil or percocet Alleviating Factors: [x ]Medication [x ] Positioning. Laying or standing is better, pain with sitting [ ] Other Current Pain Management Plan: [ x ]Satisfied [ ] Not satisfied SOCIAL ASSESSMENT: See ED social assessment information entered. Support Systems: fiancee Barriers to treatment: denies Referrals/Interventions: LEARNING STYLE: Visual and verbal, wants written material and verbal discussion. TEACHING: LEARNING STYLE: Visual and verbal, wants written material and verbal discussion. Language barriers: [ x ] no [ ] yes [ x ] NCI Radiation therapy and You?? and folder given [ ] Site Specific literature provided and reviewed with patient [ x ] Other: ignacio's cream given documented in this encounter Plan of Treatment Not on file documented as of this encounter Visit Diagnoses Diagnosis Rectal cancer- Primary Malignant neoplasm of rectum documented in this encounter Care Teams Instructional Materials Director Relationship Specialty Start Date End Date Randa Rosas APRN [address] [place] [address] PCP - General 12/29/12 04/16/22 documented as of this encounter
--- OUTSIDE RECORDS SUMMARY | 2024-11-18 17:02 | XMS_ITS | Encounter Summary ---
Author Organization [facility] Address [facility] [place] [address] Care Team Providers Care Fuel Tank Sealer And Tester Name Role Phone Randa Rosas APRN Primary Care Provider +1- [phone] Encounter Details Date Type Department Care Team (Late st Contact Info) Description 12/30/2012 Orders Only Hematology Oncology at [address] [phone] Nas Dobbs MD Social History Tobacco Use Types Packs/Day Years Used Date Smoking Tobacco: Never Assessed Sex and Gender Information Value Date Recorded Sex Assigned at Not on file Gender Identity Not on file Sexual Orientation Not on file documented as of this encounter Plan of Treatment Not on file documented as of this encounter Procedures Procedure Name Priority Date/Time Associated Diagnosis Comments FILM LIBRARY STORAGE ONLY CT ABDOMEN AND PELVIS Routine 12/30/2012 11:59 AM EST documented in this encounter Results * Film Library- Storage only CT abdomen & pelvis (12/30/2012 11:59 AM EST) Anatomical Region Laterality Modality Abdomen, Pelvis Other 12/30/2012 11:5 9 AM EST Narrative 01/19/2014 9:41 PM EST This is a non-reportable exam. Procedure Note Rene Gonzalez - 01/19/2014 This is a non-reportable exam. Nas Dobbs MD IMG FILM LIBRARY ORD ERABLES documented in this encounter Visit Diagnoses Not on filedocumented in this encounter Care Teams Fuel Tank Sealer And Tester Relationship Specialty Start Date End Date Randa Rosas APRN [address] [place] [phone] PCP - General 12/29/12 04/16/22 documented as of this encounter
--- OUTSIDE RECORDS SUMMARY | 2024-11-18 17:02 | XMS_ITS | Encounter Summary ---
Author Organization [facility] Address [address] [place] [address] Care Team Providers Care Paying Teller Name Role Phone Edward Montalvo MD Primary Care Provider [phone] -[phone] Encounter Details Date Type Department Care Team (Late st Contact Info) Description 11/18/2019 Lab Requisition [facility] Pathology & Laboratory Medicine - [facility] [address] [place] [address] Elias Barros, [address] [place], [place] [id number] Hypertrophy of nasal turbinates; Deviated nasal septum; Nasal polyp, unspecified; Chronic maxillary sinusitis Social History Tobacco Use Types Packs/Day Years [...] Procedure Name Priority Date/Time Associated Diagnosis Comments SURGICAL PATHOLOGY Today 11/17/2019 9:56 EST Hypertrophy of nasal turbinates Deviated nasal septum Nasal polyp, unspecified Chronic maxillary sinusitis documented in this encounter Results * SURGICAL PATHOLOGY (11/17/2019 9:56 EST) Final Diagnosis A. SINONASAL CONTENTS, LEFT, EVACUATION: - Sinonasal (Schneiderian) papilloma, inverted type. B. NASOPHARYNX, LEFT, EVACUATION: - Sinonasal (Schneiderian) papilloma, inverted type. C. SINUS CONTENTS, LEFT FRONTAL RECESS, EVACUATION: - Sinonasal (Schneiderian) papilloma, inverted type. See comment. D. SINONASAL CONTENTS, LEFT, FIBROTIC MATERIAL/MASS, EVACUATION: - Sinonasal (Schneiderian) papilloma, inverted type. E. SINUS CONTENTS, LEFT MAXILLARY, EVACUATION: - Sinonasal (Schneiderian) papilloma, inverted type. F. SINUS CONTENTS, LEFT FRONTAL, EVACUATION: - Mucinous material and admixed acute inflammatory cells. See comment. Paulo Anderson, 11/23/2019 18:09 11/24/2019 18:16 [facility] at 1815 Diagnosis Comment Acid Cleaner slides of this case were reviewed at the intradepartmental consultation conference. Deeper levels of F1 have been examined. 11/24/2019 18:16 [facility] Clinical History Osseous sinus tumor L Chronic polyposis. Nasal obstruction 11/24/2019 18:16 [facility] Attestation There was significant resident/fellow involvement in the diagnostic evaluation of this case. By the signature below, the attending physician certifies that they have personally conducted a gross and/or microscopic examination of the described specimens and rendered or confirmed the above diagnosis. 11/24/2019 18:16 [facility] at 1815 Gross Description A. Received in formalin labelled with proper patient identification (initials R, M) and A. Left nasal contents are multiple rubbery to bony arriola-white soft tissue fragments with moderate admixed blood clot (6.0 x 5.5 x 0.5 cm in aggregate). Entirely submitted as follows: BLOCK DORMAN A1-A2- bony fragments, following molecular decalcification A3-A12- rubbery fragments with admixed blood clot B. Received in formalin labelled with proper patient identification (initials R, M) and B. Left nasal pharynx are multiple white, rubbery to bony tissue fragments with admixed blood clot (2.0 x 2.0 x 0.5 cm). Entirely submitted as follows: BLOCK DORMAN B1- bony fragment, following molecular decalcification B2- rubbery tissue fragments C. Received in formalin labelled with proper patient identification (initials R, M) and C. Left frontal recess are multiple rubbery to bony arriola white tissue fragments with moderate admixed blood clot (3.0 x 2.0 x 0.5 cm in aggregate). Entirely submitted as follows: BLOCK DORMAN C1- bony fragments, following molecular decalcification C2-C4- rubbery tissue fragments with admixed blood clot D. Received in formalin labelled with proper patient identification (initials R, M) and D. Left nasal contents - fibrotic material/mass are multiple rubbery to bony tissue fragments and a large amount of admixed blood clot. The rubbery and bony tissue fragments measure 2.5 x 2.0 x 0.75 cm in aggregate. The clot measures 3.5 x 3.0 x 0.5 cm in aggregate. The tissue fragments are entirely submitted as follows: BLOCK DORMAN D1- bony tissue fragments, following molecular decalcification D2-D3- rubbery tissue fragments E. Received in formalin labelled with proper patient identification (initials R, M) and E. Left maxillary sinus contents are multiple irregular to polypoid, rubbery to bony soft tissue fragments accompanied by admixed mucous and blood clot. The tissue fragments measure 4.0 x 3.0 x 0.5 cm in aggregate. The admixed mucous and blood clot measure 2.0 x 1.0 x 1.0 cm in aggregate. Acid Cleaner sections of the tissue fragments are submitted as follows: BLOCK DORMAN E1- bony tissue fragments, following molecular decalcification E2-E3- rubbery tissue fragments, medical billing representative sections F. Received in formalin labelled with proper patient identification (initials R, M) and F. Left frontal sinus is opaque mucus without obvious admixed tissue (2.0 x 1.5 x 0.5 cm in aggregate). Entirely submitted in F1. LUIS ENRIQUE JIMENEZ 11/18/2019 16:54 11/24/2019 18:16 [facility] Resident/Fell ow: Luis Enrique Jimenez, Paulo Styles, DO 11/24/2019 18:16 [facility] Scanned Images 11/24/2019 18:16 [facility] Tissue ENTIRE NASAL SINUS / Unknown 11/17/2019 9:56 EST 11/18/2019 10:36 EST Tissue specimen (specimen) NASOPHARYNGEAL STRUCTURE / Unknown 11/17/2019 9:58 EST 11/18/2019 10:36 EST Tissue specimen (specimen) NASAL SINUS STRUCTURE / Unknown 11/17/2019 10:05 EST 11/18/2019 10:36 EST Tissue specimen (specimen) NASAL SINUS STRUCTURE / Unknown 11/17/2019 10:14 EST 11/18/2019 10:36 EST Tissue specimen (specimen) NASAL SINUS STRUCTURE / Unknown 11/17/2019 10:17 EST 11/18/2019 10:36 EST Tissue specimen (specimen) NASAL SINUS STRUCTURE / Unknown 11/17/2019 10:31 EST 11/18/2019 10:36 EST Elias Barros DO PATHOLOGY ORDERABLES Fi nal Result [facility] [address] [place] [address] documented in this encounter Visit Diagnoses Diagnosis Hypertrophy of nasal turbinates Deviated nasal septum Nasal polyp, unspecified Chronic maxillary sinusitis documented in this encounter Care Teams Paying Teller Relationship Specialty Start Date End Date Edward Montalvo MD PCP - General 10/21/15 documented as of this encounter
--- OUTSIDE RECORDS SUMMARY | 2024-11-18 17:02 | XMS_ITS | Encounter Summary ---
[place] [address] Care Team Providers Care Manager Research And Development Name Role Phone Randa Rosas APRN Primary Care Provider +1- [phone] Encounter Details Date Type Department Care Team (Late st Contact Info) Description 01/10/2013 10:30 AM EST Clinical Support [facility] [place] [phone] Social History Tobacco Use Types Packs/Day Years [...] on filedocumented in this encounter Care Teams Manager Research And Development Relationship Specialty Start Date End Date Randa Rosas APRN [address] [place] [phone] PCP - General 12/29/12 04/16/22 documented as of this encounter
--- OUTSIDE RECORDS SUMMARY | 2024-11-18 17:02 | XMS_ITS | Encounter Summary ---
Author Organization [facility] Address [address] [place] [address] Care Team Providers Care Tapper Balance Wheel Screw Hole Name Role Phone Edward Montalvo MD Primary Care Provider +1 [phone] Reason for Visit * (Routine) - Receiving Office to Obtain Authorization Specialty Diagnoses / Procedures Referred By Contcody t Referred To Contact Procedures CT OUTSIDE IMAGES NEURO Unknown, Provider, MD Referral ID Status Reason Start Date Expiration Date Visits Requested Visits Authorized [id number] Receiving Office to Obtain Authorization 03/14/2020 1 1 Encounter Details Date Type Department Care Team (Late st Contact Info) Description 09/23/2019 Hospital Encounter [facility] Radiology - [address] [place] [address] Social History Tobacco Use Types Packs/Day Years [...] Name Priority Date/Time Associated Diagnosis Comments CT OUTSIDE IMAGES NEURO Routine 03/14/2020 11:56 EDT documented in this encounter Results * CT OUTSIDE IMAGES NEURO (03/14/2020 11:56 EDT) Narrative LEYLA - 03/14/2020 11:56 EDT This is a non-reportable exam. us Physician Fa_General IMG OTHER IMAGING ORDERA BLES Final Result BRUCE documented in this encounter Visit Diagnoses Not on filedocumented in this encounter Care Teams Tapper Balance Wheel Screw Hole Relationship Specialty Start Date End Date Edward Montalvo MD PCP - General 10/21/15 documented as of this encounter
--- OUTSIDE RECORDS SUMMARY | 2024-11-18 17:02 | XMS_ITS | Encounter Summary ---
Author Organization [facility] Address [address] [place] [id number] Care Team Providers Care Lapel Baster Name Role Phone Edward Montalvo MD Primary Care Provider [phone] [phone] Encounter Details Date Type Department Care Team (Late st Contact Info) Description 01/24/2022 Lab Requisition [facility] Pathology & Laboratory Medicine - [facility] [address] [place] [address] Outr Resulting Lab, Provider Social History Tobacco Use Types Packs/Day Years [...] Procedure Name Priority Date/Time Associated Diagnosis Comments ZZCOVID-19 TEST [facility] PCR Today 01/24/2022 9:04 EST COVID-19 TESTING Routine 01/24/2022 9:04 EST documented in this encounter Results * COVID-19 TEST [facility] PCR (01/24/2022 9:04 EST) Swab 01/24/2022 9:04 EST 01/24/2022 20:10 EST us Provider Outr Resulting Lab MICROBIOLOGY - GENER AL ORDERABLES Final Result [facility] [address] [place] [address] * COVID-19 TESTING (01/24/2022 9:04 EST) COVID-19 rt-PCR Result Negative Negative 01/25/2022 15:21 EST [facility] Comment: This test has not been FDA cleared or approved. This test has been authorized by FDA under an EUA for use by authorized laboratories. This test has been authorized only for detection of nucleic acid from 2019-nCoV, not for any other viruses or pathogens. This test is only authorized for the duration of the declaration that circumstances exist justifying the authorization of emergency use of in vitro diagnostic tests for detection and/or diagnosis of 2019-nCoV under section 564(b)(1) of Act, 21 U.S.C ?? 360bbb-3(b) (1), unless the authorization is terminated or revoked sooner. Negative results do not preclude 2019-nCoV infection and should not be used as the sole basis for treatment or other patient management decisions. Negative results must be combined with clinical observations, patient history, and epidemiological information. Testing was performed using the albert SARS-CoV-2 assay ([employer] on the Albert 6800 System Performing Lab Albert [address] [facility] Lab 01/25/2022 15:21 EST [facility] Swab 01/24/2022 9:04 EST 01/24/2022 20:10 EST us Provider Outr Resulting Lab MICROBIOLOGY - GENER AL ORDERABLES Final Result Performing Organization Address City/State/[facility] Co de Phone Number [facility] [address] [place] [address] documented in this encounter Visit Diagnoses Not on filedocumented in this encounter Care Teams Lapel Baster Relationship Specialty Start Date End Date Edward Montalvo MD PCP - General 10/21/15 documented as of this encounter
--- OUTSIDE RECORDS SUMMARY | 2024-11-18 17:02 | XMS_ITS | Encounter Summary ---
Author Organization [facility] Address [facility] [place] [address] Care Team Providers Care Pharmaceutical Salesperson Name Role Phone Alison Randa VALENTIN Primary Care Provider [phone]- [phone] Encounter Details Date Type Department Care Team (Late st Contact Info) Description 01/10/2013 6:17 AM EST - 01/10/2013 11:59 PM EST Hospital [place] [address] Rectal cancer Social History Tobacco Use Types [...] - Inhaled Oxygen Concentration - - Weight 111.1 kg (245 lb) 01/10/2013 6:34 AM EST Height - - Body Mass Index 38.91 01/05/2013 3:14 PM EST documented in this encounter Medications at Time of Discharge Medication Sig Dispensed Refills Start Date End Date atorvastatin (LIPITOR) 40 mg tablet Take 40 mg by mouth daily. glipiZIDE (GLUCOTROL) 10 mg 24 hr tablet Take 10 mg by mouth 2 times daily. multivitamin (THERAGRAN) tablet Take 1 tablet by mouth daily. ibuprofen (ADVIL;MOTRIN) 200 mg tabletIndications:pain Take 200 mg by mouth every 4 hours as needed. Indications: Pain 05/18/2013 OXYcodone-acetaminophe n (PERCOCET) 5-325 mg per tabletIndications:Rect al cancer Take 1-2 tablets by mouth every 4 hours as needed for Pain. 120 tablet 0 01/05/2013 02/01/2013 prochlorperazine (COMPAZINE) 10 mg tabletIndications:Rect al cancer,Chemotherapy induced nausea and vomiting Take 1 tablet by mouth every 6 hours as needed for Nausea. 30 tablet 3 01/05/2013 04/19/2013 lisinopril (PRINIVIL;ZESTRIL) 10 mg tablet Take 10 mg by mouth 2 times daily. 01/31/2022 sildenafil (VIAGRA) 100 mg tablet Take 100 mg by mouth as needed. 11/18/2017 sitaGLIPtin-metFORMIN (JANUMET) 50-1,000 mg per tablet Take 1 tablet by mouth 2 times daily (with meals). 05/18/2013 metFORMIN (GLUCOPHAGE) 500 mg tablet Take 500 mg by mouth nightly. 05/18/2013 cholestyramine (QUESTRAN) 4 gram packet Take 1 packet by mouth daily. 1-2 times a day 02/22/2013 INDOMETHACIN ORAL Take by mouth. Reported on 01/01/2017 08/03/2020 documented as of this encounter Miscellaneous Notes * Miscellaneous - Provider, Scanning - 01/20/2013 9:46 AM EST documented in this encounter Plan of Treatment Not on file documented as of this encounter Procedures Procedure Name Priority Date/Time Associated Diagnosis Comments POCT GLUCOSE Routine 01/10/2013 8:55 AM EST MRI PELVIS SOFT TISSUE (GI CHECKER LOADER) WWO CONTRAST Routine 01/10/2013 8:29 AM EST Rectal cancer documented in this encounter Results * (ABNORMAL) POCT Glucose (01/10/2013 8:55 AM EST) Glucose, POC 228(H) 60 - 199 mg/dL [facility] Comment: Supplemental ranges: <110 mg/dL before meals <200 mg/dL all other times of the day Blood specimen (specimen) 01/10/2013 8:55 AM EST 01/10/2013 8:55 AM EST Nas Dobbs MD POINT OF CARE TEST O RDERABLES ROBERTA SANTIAGO * MRI pelvis with/WO contrast (01/10/2013 8:29 AM EST) Anatomical Region Laterality Modality Pelvis Magnetic Resonan ce 01/10/2013 8:29 AM EST Narrative 01/10/2013 5:07 PM EST Examination MR Pelvis W WO Bola Clinical History rectal cancer protocol new invasive rectal adenocarcinoma ?? staging Technique MRI of the pelvis performed as per departmental rectal cancer protocol. Multi planar T1 pre and post gadolinium with fat saturation as well as multiplanar T2 with and without fat saturation were acquired. ?? Comparison CT A/P performed with contrast at [facility] on 12/30/2011 Findings A circumferential, transmural, area of wall thickening is noted, beginning at the level of the anal verge and extending cranially approximately 10cm ??to the level of the rectosigmoid junction. This mass extends to the mesorectal fascia (CRM =0 at its narrowest point, series 13, image 64 and series 8, images 20-24) and abuts the posterior prostate (series 5 image 34). Multiple prominent, though not pathologically enlarged mesorectal and pelvic lymph nodes are present, the largest measuring 9mm in short axis (series 5 image 13). Lymphatic involvement can not be excluded. Impression 1. ??Enhancing rectal mass, consistent with known rectal carcinoma, which extends from the anal verge to the rectosigmoid junction. This mass contacts the mesorectal fascia with possible involvement of the posterior prostate gland, making the lesion T3 or T4. 2. Multiple local/regional lymph nodes. Lymphatic involvement can not be excluded. Film and interpretation reviewed by the attending Procedure Note Mark Orozco MD - 01/10/2013 Examination MR Pelvis W WO Bola Clinical History rectal cancer protocol new invasive rectal adenocarcinoma staging Technique MRI of the pelvis performed as per departmental rectal cancer protocol.Multi planar T1 pre and post gadolinium with fat saturation as well asmultiplanar T2 with and without fat saturation were acquired. Comparison CT A/P performed with contrast at [facility] on 12/30/2011 Findings A circumferential, transmural, area of wall thickening is noted, beginningat the level of the anal verge and extending cranially approximately 10cm tothe level of the rectosigmoid junction. This mass extends to the mesorectalfascia (CRM =0 at its narrowest point, series 13, image 64 and series 8, [id number]) and abuts the posterior prostate (series 5 image 34). Multiple prominent, though not pathologically enlarged mesorectal and pelvic lymph nodes are present, the largest measuring 9mm in short axis (series 5 image 13).Lymphatic involvement can not be excluded. Impression 1. Enhancing rectal mass, consistent with known rectal carcinoma, which extends from the anal verge to the rectosigmoid junction. This masscontacts the mesorectal fascia with possible involvement of the posterior prostate gland, making the lesion T3 or T4. 2. Multiple local/regional lymph nodes. Lymphatic involvement can not be excluded. Film and interpretation reviewed by the attending Nas Dobbs MD [facility] MRI ORDERABLES documented in this encounter Visit Diagnoses Diagnosis Rectal cancer Malignant neoplasm of rectum documented in this encounter Administered Medications Inactive Administered Medications - up to 3 most recent administrations Medication Order MAR Action Action Date Dose Rate Site gadopentetate dimeglumine (MAGNEVIST) injection 22 mL 22 mL (0.2 mL/kg/dose ? 111.1 kg), Intravenous, ONCE PRN, Per Protocol, Starting on Thu01/10/13 at 0634, 1 dose, Until Thu01/10/13 at 0817 Given 01/10/2013 8:17 AM EST 20 mLs documented in this encounter Care Teams Pharmaceutical Salesperson Relationship Specialty Start Date End Date Randa Rosas APRN [address] [place] [id number] PCP - General 12/29/12 04/16/22 documented as of this encounter
--- OUTSIDE RECORDS SUMMARY | 2024-11-18 17:02 | XMS_ITS | Encounter Summary ---
Author Organization [facility] Address [facility] [place] [address] Care Team Providers Care Security Operations Analyst Name Role Phone Randa Rosas APRN Primary Care Provider +1- [phone] Encounter Details Date Type Department Care Team (Late st Contact Info) Description 01/07/2013 10:00 AM EST Initial consult Radiation Oncology at [address] [address] Social History Tobacco Use Types Packs/Day Years [...] on filedocumented in this encounter Care Teams Security Operations Analyst Relationship Specialty Start Date End Date Randa Rosas APRN [address] [facility] [place] [phone] PCP - General 12/29/12 04/16/22 documented as of this encounter
--- OUTSIDE RECORDS SUMMARY | 2024-11-18 17:02 | XMS_ITS | Encounter Summary ---
[place] [address] Care Team Providers Care Dinkey Dispatcher Name Role Phone Randa Rosas APRN Primary Care Provider +1- [phone] Encounter Details Date Type Department Care Team (Late st Contact Info) Description 01/10/2013 8:00 AM EST Clinical Support [facility] [place] [id number] Social History Tobacco Use Types Packs/Day Years [...] on filedocumented in this encounter Care Teams Dinkey Dispatcher Relationship Specialty Start Date End Date Randa Rosas APRN [address] [facility] [place] [id number] PCP - General 12/29/12 04/16/22 documented as of this encounter
--- OUTSIDE RECORDS SUMMARY | 2024-11-18 17:02 | XMS_ITS | Referral Summary ---
Author Organization [facility] Address [address] [place] [address] Care Team Providers Care Film Color Tester Name Role Phone Edward Montalvo MD Primary Care Provider +1 -[phone] Social History Tobacco Use Types Packs/Day Years Used Date Smoking Tobacco: Never Assessed Interpersonal Safety Answer Date Record ed Physically Hurt Never 07/01/2020 Verbally Threaten Not on file 07/01/2020 Sex and Gender Information Value Date Recorded Sex Assigned at Not on file Legal Sex Male 18:03 EST Gender Identity Not on file Sexual Orientation Not on file Plan of Treatment Not on file Insurance [employer] Care Teams Film Color Tester Relationship Specialty Start Date End Date Edward Montalvo MD PCP - General 10/21/15
--- OUTSIDE RECORDS SUMMARY | 2024-11-18 17:02 | XMS_ITS | Encounter Summary ---
Author Organization [facility] Address [facility] [place] [address] Care Team Providers Care Housekeeping Supervisor Name Role Phone Randa Rosas APRN Primary Care Provider +1- [phone] Reason for Visit * Reason Comments Rectal Cancer Encounter Details Date Type Department Care Team (Late st Contact Info) Description 01/05/2013 3:00 PM EST Office Visit Hematology Oncology at [address] [phone] Nas Dobbs MD Rectal cancer (Primary Dx); Chemotherapy induced nausea and vomiting Discharge Disposition: Home Social History Tobacco Use [...] Sign Reading Time Taken Comments Blood Pressure 117/71 01/05/2013 3:14 PM EST Pulse 90 01/05/2013 3:14 PM EST Temperature 37.1 ??C (98.8 ??F) 01/05/2013 3:14 PM ES T Respiratory Rate 18 01/05/2013 3:14 PM EST Oxygen Saturation 98% 01/05/2013 3:14 PM EST Inhaled Oxygen Concentration - - Weight 111.6 kg (246 lb) 01/05/2013 3:14 PM EST Height 169 cm (5' 6.54) 01/05/2013 3:14 PM EST Body Mass Index 39.07 01/05/2013 3:14 PM EST documented in this encounter Progress Notes * Nas Dobbs MD - 01/05/2013 4:55 PM EST Diagnosis: Invasive adenocarcinoma of the rectum extending 10 cm into the rectal canal Subjective: Reg is a 57-year-old gentleman who lives in [facility] on [address] and works in [employer] in [employer] who is here today accompanied by his fianc??e to discuss his recently diagnosed rectal cancer. He's had several months of diarrhea with with workups being negative and finally leading to a lower colonoscopy. Findings were a near circumferential mass extending 10 cm inside the rectum. Additionally a polyp was found at 16 cm and biopsy. Pathology indicated the patient had an invasive adenocarcinoma of the rectum and the tubulovillous adenoma. The polyp was not removed. In seeing the surgeon back in [facility] they indicated that their feelings were that he needed to see a specialty surgeon at [facility] see if there is any chance for a rectal sparing operation.The patient had noted that he thought he would be unable to work with her colostomy. He is here today for medical oncology appointment to discuss treatment planning and further evaluation of his rectal cancer. He did have a CT scan of the chest abdomen and pelvis in [place] that was read out as completely negative. They do not comment on the rectal tumor within the report. There is apparently no adenopathy however. The patient's diarrhea continues and he has ongoing rectal pain at times especially with bowel movements. He is only on ibuprofen for when necessary pain he is having no bladder symptoms. Review systems is otherwise negative. He does have some underlying type 2 diabetes mellitus but control is been good lately. Past Medical History Diagnosis Date ??? ED (erectile dysfunction) ??? HTN (hypertension) ??? Gout ??? Hyperlipemia ??? DM (diabetes mellitus) type 2 ??? Obesity ??? 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 Hypercoagulable state Protein S deficiency ??? Rectal cancer Past Surgical History Procedure Date ??? Colonoscopy 12/17/2012 discovered rectal invasive adenocarcinoma ??? Nasal polyp surgery ??? Tonsillectomy and adenoidectomy ??? Vasectomy Current Outpatient Prescriptions on File Prior to Visit Medication Sig Dispense Refill ??? lisinopril (PRINIVIL;ZESTRIL) [...] Take 1 tablet by mouth daily. ??? sitaGLIPtin-metFORMIN (JANUMET) 50-1,000 mg per tablet Take 1 tablet by mouth 2 times daily (with meals). ??? metFORMIN (GLUCOPHAGE) 500 mg tablet Take 500 mg by mouth nightly. ??? cholestyramine (QUESTRAN) 4 gram packet Take 1 packet by mouth daily. 1-2 times a day ??? INDOMETHACIN ORAL Take by mouth. ??? DISCONTD: aspirin 324 mg buffered tablet Take 324 mg by mouth daily. ??? DISCONTD: ASPIRIN, BULK, MISC by Misc.(Non-Drug; Combo Route) route. Allergies Allergen Reactions ??? Penicillins CIS - RASH History Social History ??? Marital Status: Spouse Name: N/A Number of Children: N/A ??? 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 Not on file. Social History Main Topics ??? Smoking status: Former Smoker Quit date: 11/30/1996 ??? Smokeless tobacco: Not on file ??? Alcohol Use: Yes beer on weekends ??? Drug Use: Yes Weekend use of marijuana per medical record ??? Sexually Active: Not on file Other Topics Concern ??? Not on file Social History Narrative ??? No narrative on file The patient was on a ibarra in [facility]. 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 withhim having been together the past 6 years. He has 3 kids one in the and ground the other Ibelieve with his ex-. Review of Systems Constitutional: Negative for fever, [...] Assessment/Plan: Reg has a low rectal cancer. With the current evaluation I really can't comment on whether or not this could potentially be resected without the need for a colostomy. He certainly needs better staging studies as they have CT scan does not even show the actual tumor. I've arranged for the patient to be seen at [facility] by one of our specialty oncologic surgeons with an MRI of the pelvis prior to thatvisit. The patient tells me he would very much like to have the surgery at [facility] if possible. As far as his rectal cancer goes I don't neoadjuvant chemoradiation therapy with him in detail and we did chemotherapy teaching today. He also discussed how some patients will require adjuvant chemotherapy following the neoadjuvant treatment and tumor resection but that really depends on staging preoperatively and postoperatively. We went over things carefully and slowly and I believe both him and his significant other have a very good clear understanding of the situation. He does tell me that he would be rolling to consider a colostomy if that was what was required to get this tumor resected. We have made appointments for him to have a MRI of the pelvis with a rectal protocol done on Thursday at [facility]. He will see radiation oncology here in [facility] on Thursday. He will have a port placed at [facility] on Thursday as well. We'll see him back here the start of radiation therapy and plan on infusional 5-fluorouracil 225 mg per meter square per day IV infusion throughout the entire course of radiation therapy. We discussed the possibility of adjuvant chemotherapy with FOLFOX depending on nodestatus and staging taking both with the MRI scheduled Thursday and with the actual pathologic staginginto consideration. We showed him a port went over potential risks and side effects with that and the infusional pump and what treatment would involve. We did chemotherapy teaching and I believe all of his questions were answered today. We'll see him back at the start of radiation therapy and he notes a cough any issues questions or problems develop in the interim. documented in this encounter Procedure Notes * Provider, Scanning - 02/08/2013 3:56 PM EDTAssociated Order(s): SCAN DOC: LAB * Provider, Scanning - 01/18/2013 4:42 PM ESTAssociated Order(s): SCAN DOC: CHEMOTHERAPY documented in this encounter ED Notes * Provider, Scanning - 07/18/2013 9:05 AM EDT documented in this encounter Plan of Treatment Not on file documented as of this encounter Procedures Procedure Name Priority Date/Time Associated Diagnosis Comments LAB SCAN 02/08/2013 3:56 PM EDT CHEMOTHERAPY SCAN 01/18/2013 4:4 2 PM EST documented in this encounter Results * SCAN DOC: LAB (02/08/2013 3:56 PM EDT) Narrative 02/08/2013 3:56 PM EDT Procedure Note Provider, Scanning - 02/08/2013 3:56 PM EDT Scanning Provider MEDIA MGR SCAN EXT O RDR/RSLT * SCAN DOC: CHEMOTHERAPY (01/18/2013 4:42 PM EST) Narrative Transcriptions Provider, Scanning - 01/18/2013 4:42 PM EST Scanning Provider MEDIA MGR SCAN EXT O RDR/RSLT * IR mediport placement or removal (01/10/2013 10:11 AM EST) Anatomical Region Laterality Modality X-Ray Angiograph y 01/10/2013 10:1 1 AM EST Impressions 01/12/2013 3:34 PM EST IMPRESSION: US and fluoro guided placement single lumen right IJ PROFUSE CT POWER port, catheter tip in the cavoatrial junction. Port ready for use. ?? Procedure performed by Swetha Warren PA-C ?? Attending: Dr. Griffith Narrative 01/12/2013 3:34 PM EST VIR PROCEDURE NOTE: ?? Procedure: Placement of right IJ single lumen chest port (CT POWER PORT) ?? ACC#: [id number] ?? Indication: Reg Salazar is a 57 y.o. male with newly diagnosed rectal cancer. Plan is for neoadjuvant radiation therapy and infusional 5-fluorouracil per IV infusion; requires central venous access. ?? TECHNIQUE: After discussing risks (including infection, hemorrhage, occlusion), and benefits, patient consented to the procedure and conscious sedation. A moment of truth was performed and the patient and procedure correctly identified. Due to the painful nature of the procedure, split doses of fentanyl and Versed were administered by the IR nurse during continuous monitoring of pulse, blood pressure and oxygen saturation. ?? After maximal sterile barrier technique preparation of the right neck and upper chest, ultrasound was used to localize the right internal jugular vein. 1% lidocaine SQ was administered for anesthesia, and a 21 ga needle was advanced under ultrasound guidance into the IJ and a 0.018 inch wire was advanced into SVC. A 4 Fr introducer sheath was placed and the wire exchanged for a 0.035 inch wire. Lidocaine was then infiltrated in a caudal-lateral direction, and infiltrated over a 2.5 cm infraclavicular area for pocket creation. ?? A 75 cm incision was made and, with blunt dissection, a pocket created. Port was attached to the catheter, placed into the pocket. A tunneler was then used to bring the catheter through the tunnel to the venotomy site. Venotomy was dilated to accommodate the peel-away sheath, and during breath-hold, the catheter advanced. Sheath was removed. Port flushed and aspirated well. The pocket was closed using a two layer technique with absorbable suture material (2-0 vicryl deep interrupted and 4-0 monocryl running subcuticular). Skin closed with indermil. Patient tolerated the procedure well. There were no immediate complications. Port loaded with heparin per protocol. ?? MEDICATIONS: ?? Fentanyl 75 mcg IV ?? Versed 1.5 mg IV ?? Clindamycin 600 mg IV ?? Lidocaine 1% 10 cc used ?? Contrast: None ?? EBL: none ?? Fluoro time: 0.3 minutes. ?? Procedure Note ForauerDick MD - 01/12/2013 VIR PROCEDURE NOTE: Procedure: Placement of right IJ single lumen chest port (CT POWER PORT) ACC#: [id number] Indication: Reg Salazar is a 57 y.o. male with newly diagnosed rectal cancer. Plan is for neoadjuvant radiation therapy and infusional5-fluorouracil per IV infusion; requires central venous access. TECHNIQUE: After discussing risks (including infection, hemorrhage,occlusion), and benefits, patient consented to the procedure and conscious sedation. A moment of truth was performed and the patient and procedure correctly identified. Due to the painful nature of the procedure, split doses offentanyl and Versed were administered by the IR nurse during continuous monitoringof pulse, blood pressure and oxygen saturation. After maximal sterile barrier technique preparation of the right neck andupper chest, ultrasound was used to localize the right internal jugular vein. 1% lidocaine SQ was administered for anesthesia, and a 21 ga needle wasadvanced under ultrasound guidance into the IJ and a 0.018 inch wire was advancedinto SVC. A 4 Fr introducer sheath was placed and the wire exchanged for a0.035 inch wire. Lidocaine was then infiltrated in a caudal-lateral direction,and infiltrated over a 2.5 cm infraclavicular area for pocket creation. A 75 cm incision was made and, with blunt dissection, a pocket created.Port was attached to the catheter, placed into the pocket. A tunneler was thenused to bring the catheter through the tunnel to the venotomy site. Venotomywas dilated to accommodate the peel-away sheath, and during breath-hold, the catheter advanced. Sheath was removed. Port flushed and aspirated well.The pocket was closed using a two layer technique with absorbable suturematerial (2-0 vicryl deep interrupted and 4-0 monocryl running subcuticular). Skin closed with indermil. Patient tolerated the procedure well. There were no immediate complications. Port loaded with heparin per protocol. MEDICATIONS: Fentanyl 75 mcg IV Versed 1.5 mg IV Clindamycin 600 mg IV Lidocaine 1% 10 cc used Contrast: None EBL: none Fluoro time: 0.3 minutes. IMPRESSION IMPRESSION: US and fluoro guided placement single lumen right IJ PROFUSECT POWER port, catheter tip in the cavoatrial junction. Port ready for use. Procedure performed by Swetha Warren PA-C Attending: Dr. Griffith Nas Dobbs MD IMG IR ORDERABLES * MRI pelvis with/WO contrast (01/10/2013 8:29 [...] Comparison CT A/P performed with contrast at [facility] on 12/30/2011 Findings A circumferential, transmural, area [...] Comparison CT A/P performed with contrast at [facility] on 12/30/2011 Findings A circumferential, transmural, area of wall thickening is noted, beginningat the level of the anal verge and extending cranially approximately 10cm tothe level of the rectosigmoid junction. This mass extends to the mesorectalfascia (CRM =0 at its narrowest point, series 13, image 64 and series 8, [id number]) and abuts the posterior prostate (series 5 [...] by the attending Nas Dobbs MD IMG MRI ORDERABLES documented in this encounter Visit Diagnoses Diagnosis Rectal cancer- Primary Malignant neoplasm of rectum Chemotherapy induced nausea and vomiting Nausea with vomiting Rectal cancer Malignant neoplasm of rectum Rectal cancer Malignant neoplasm of rectum documented in this encounter Care Teams Housekeeping Supervisor Relationship Specialty Start Date End Date Randa oRsas APRN [address] [place] [address] PCP - General 12/29/12 04/16/22 documented as of this encounter
--- OUTSIDE RECORDS SUMMARY | 2024-11-18 17:02 | XMS_ITS | Encounter Summary ---
Author Organization [facility] [place] [address] Care Team Providers Care Mold Loft Worker Name Role Phone Randa Rosas APRN Primary Care Provider +1- [phone] Reason for Visit * Reason Comments Establish Care rectal ca Encounter Details Date Type Department Care Team (Late st Contact Info) Description 01/10/2013 12:30 PM EST Office [place] [address] John Macias MD Rectal cancer (Primary Dx) Discharge Disposition: [...] as of this encounter Progress Notes * John Macias - 01/10/2013 12:56 PM ESTAddended by: JOHN MACIAS on: 01/10/2013 12:56 PM Modules accepted: Orders * John Macias - 01/10/2013 12:27 PM EST Colorectal Surgery Attending Outpatient Consultation [place], [place] [address] FAX: PCP: Randa Rosas APRN@ [phone] Referring Provider: Nas Dobbs HPI: Reg Salazar is a pleasant 57 y.o. male who I was asked to see by Dr. Dobbs regarding Chief Complaint Patient presents with ??? Establish Care rectal ca Past medical history: Patient Active Problem List Diagnoses Code ??? Rectal cancer 154.1 Past surgical history: Past Surgical History Procedure Date ??? Colonoscopy 12/17/2012 discovered rectal invasive adenocarcinoma ??? Nasal polyp surgery ??? Tonsillectomy and adenoidectomy ??? Vasectomy ??? Pilonidal cyst excision Allergies: Penicillins Medications: reviewed in the electronic medical record. Current Outpatient Prescriptions on File Prior to Visit Medication Sig Dispense Refill ??? ibuprofen (ADVIL;MOTRIN) 200 mg tablet Take 200 mg by mouth every 4 hours as needed. Indications: Pain ??? OXYcodone-acetaminophen (PERCOCET) 5-325 mg per tablet Take 1-2 tablets by mouth every 4 hours as needed for Pain. 120 tablet 0 ??? prochlorperazine (COMPAZINE) 10 mg tablet Take [...] mouth daily. 1-2 times a day ??? multivitamin (THERAGRAN) tablet Take 1 tablet by mouth daily. ??? INDOMETHACIN ORAL Take by mouth. No current facility-administered medications on file prior to visit. Social history: reports that he quit smoking about 16 years ago. He does not have any smokeless tobacco history on file. He reports that he drinks alcohol. He reports that he uses illicit drugs. Family medical history: Family medical history: Family History Problem Relation Age of Onset ??? Diabetes Father no famly h/o cnancer Physical exam There were no vitals taken for this visit. There is no height or weight on file to calculate BMI. Labs: reviewed. Endoscopy: reviewed. Imaging: reviewed. CT CAP ([facility]) [facility]; MRI ([facility]) 01/10/13 - report pending but T3- T4 - threatened CRManteriorly (prostate), Impression 1. Enhancing rectal mass, consistent with known rectal carcinoma, which extends from the anal vergeto the rectosigmoid junction. This mass contacts the mesorectal fascia with possible involvement of the posterior prostate gland, making the lesion T3 or T4. 2. Multiple local/regional lymph nodes. Lymphatic involvement can not be excluded. Path: reviewed. 01/06/13 B - Rectal mass biopsies at 5 cm: Invasive adenocarcinoma. Reg Salazar is a very pleasant 57-year-old male who I was asked to see by his oncologist, Dr. Dobbs, to render an opinion regarding his low rectal cancer and the possibility of a sphincter-preserving procedure. The patient in essence had change in bowel habits for the last couple of months, and this was with tenesmus and a small amount of bleeding and frequent urgency and a little bit of leakage and bloody squirts, moving his bowels up to 15 times per day. He denies any fecal incontinence to solid, liquid, or gas. His urinary symptom is okay, although he notes that he cannot sit and urinate. He has to stand to urinate. He takes Viagra for his dysfunction related to diabetes, and his last hemoglobin A1c was 6.2. Past medical history is significant for hypertension, history of blood clots, diabetes non-insulin dependent, and rectal cancer. Past Surgical History: Includes a colonoscopy 10 years ago with a polyp removal and a vasectomy in 1982. Allergies: PENICILLIN. Social History: He is single, , and lives with his fiancee, Earl Cardenas. He has three adult children, youngest age 30, and he does not smoke and he drinks six to 12 Michael Lights per week, mostly on Thursday when he goes bowling. 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 Twelve-Point Patient Provided Review of Symptoms: 5 feet 7, 245 pounds, glasses, diarrhea, gout. Physical Exam: General appearance: Obese, stalky young man in no apparent distress, appears younger than stated age. Abdomen exam: Soft, nontender, nondistended, no palpable masses, no hepatomegaly. No groin lymphadenopathy. HEENT: Anicteric, moist mucous membranes. No supraclavicular lymphadenopathy. Rectal exam: After time-out was performed, the patient was examined in the left lateral decubitus position. Gentle eversion of the anoderm revealed an intact anal wink, and on digital rectal exam he had a very low rectal tumor extending essentially to the dentate line. This was within the sphincter complex to which it was fixed, and it was predominantly anterior. Flexible sigmoidoscopy was performed and confirmed a circumferential, nonobstructing, ulcerated, fungating, low-volume rectal mass occupying the entire distal rectum and fixed to the sphincter complex at its distal-most aspect. Also, it appeared to be somewhat fixed to the prostate anteriorly as well. Impression: Locally advanced low rectal cancer. Plan: I had a lengthy discussion with the gentleman and his fiancee regarding our inability to treat this oncologically with anything less than an abdominoperineal resection. Therefore, I recommend to him to proceed with neoadjuvant chemoradiation, and then after a six to eight-week interval of cooling off after cessation of chemoradiation, a laparoscopic-assisted abdominoperineal resection with permanent colostomy. I let him know that I am concerned that this is involving the posterior wall of the prostate. We may have to take the capsule of the posterior prostate, and I may need to have Urology involved depending on what the repeat MRI four weeks after cessation of neoadjuvant chemoradiation shows. We discussed the expected length of hospitalization, a little bit about complications in terms of pelvic nerve dysfunction, and he is already on Viagra. All their questions were answered, and they will follow up with Dr. Dobbs and Dr. Brady and return to see me exactly four weeks after cessation of chemoradiation. Thank you, Dr. Dobbs, for this interesting consultation, I do appreciate the opportunity to participate in this patients' care. I personally spent a total of 60 minutes in [id number] consultation with the patient, of which 40were in patient education and counseling. An additional 5 minutes were spent performing flexible sigmoidoscopy. John Macias MD, MS, FACS site identification specialist Division of Colon and Rectal Surgery [facility] Pager #[phone] documented in this encounter Miscellaneous Notes * Miscellaneous - Provider, Scanning - 01/27/2013 9:48 AM EST documented in this encounter Plan of Treatment Scheduled Orders Name Type Priority Associated Diagnoses Orde r Schedule EKG 12 Lead ECG Routine Rectal cancer Ordered: 01/10/2013 documented as of this encounter Visit Diagnoses Diagnosis Rectal cancer- Primary Malignant neoplasm of rectum documented in this encounter Care Teams Mold Loft Worker Relationship Specialty Start Date End Date Randa Rosas APRN [address] [place] [address] PCP - General 12/29/12 04/16/22 documented as of this encounter
--- OUTSIDE RECORDS SUMMARY | 2024-11-18 17:02 | XMS_ITS | Encounter Summary ---
Author Organization [facility] Address [facility] [place] [address] [place] [address] Care Team Providers Care Fence Erector Name Role Phone Randa Rosas APRN Primary Care Provider +1- [phone] Encounter Details Date Type Department Care Team (Latest Contact Info) Description 01/07/2013 10:00 AM EST Ancillary Appointment Radiation Oncology at [address] [phone] Richie Brady MD [facility] [place] [address] Discharge Disposition: Home Social History Tobacco Use [...] on filedocumented in this encounter Care Teams Fence Erector Relationship Specialty Start Date End Date Randa Rosas APRN [address] [place] [address] PCP - General 12/29/12 04/16/22 documented as of this encounter
--- OUTSIDE RECORDS SUMMARY | 2024-11-18 17:02 | XMS_ITS | Encounter Summary ---
Author Organization [facility] [place] [address] Care Team Providers Care Telegraph Repeater Mechanic Name Role Phone Randa Rosas VALENTIN Primary Care Provider [phone]- [phone] Encounter Details Date Type Department Care Team (Latest Contact Info) Description 01/06/2013 6:33 AM EST - 01/06/2013 11:59 PM [facility] Hospital [place] [phone] Carlos Dobbs MD Discharge Disposition: Home Social History Tobacco [...] Priority Date/Time Associated Diagnosis Comments SURGICAL PATHOLOGY REPORT Routine 01/06/2013 7:26 AM EST documented in this encounter Results * Surgical Pathology Report (01/06/2013 7:26 AM EST) Surgical Pathology Report ? [facility] ? Provider: ?? CARLOS DOBBS ?Pt. Name: ?? ADRIEN CHEUNG ? Acc #: ?[id number] ?Pt. ? Col Date: ?? 01/06/2013 ?/Sex: ?1955,(57 years),Male ? Rec Date: ?? 01/06/2013 ?LOC: ?[facility] ? SURGICAL PATHOLOGY ? ---Pathologic Diagnosis--- ? CONSULTATION CASE ? labeled [id number] ? A - Colon polyp at 18 cm: ? Tubulovillous adenoma. ? B - Rectal mass biopsies at 5 cm: ? Invasive adenocarcinoma. ? CR-PX ? 01/10/13 ? XL ? 01/10/13 Verified by: ? Lamont FUNES, Nuris ? Pathologist ? (Electronic Signature) ? The attending pathologist whose signature appears on this report has ? reviewed all diagnostic slides and has edited the gross and/or ? microscopic portion of the report in rendering the final pathologic ? diagnosis. ? ---Microscopic Description--- ? Slides reviewed, microscopic description not recorded. ? ---Gross Description--- ? [facility] ([facility]) pathology slide(s) are reviewed. ??Refer to ? Diagnosis and Specimen Submitted for specific case information. ? For the full text of the [facility] report(s) please refer to Non-DH Documentation ? Pathology in the electronic health record (eDH). ? ---Clinical Information--- ? Specimen Submitted: ? CONSULTATION CASE ? A - 6 slides labeled [id number], collection date 12/17/12. ? [id number] ? Judd Monsalve MD ? Department of Pathology ? [facility] ? [address] ? [place], [place] ??[address] ? [facility] ? Provider: ?? CARLOS DOBBS ?Pt. Name: ?? ADRIEN CHEUNG ? Acc #: ?[id number] ?Pt. ? Col Date: ?? 01/06/2013 ?/Sex: ?1955,(57 years),Male ? Rec Date: ?? 01/06/2013 ?LOC: ?[facility] ? SURGICAL PATHOLOGY ? ROBERTA MILLENNIUM 01/06/2013 7:26 AM EST Carlos Dobbs MD PATHOLOGY/CYTOLOGY O RDERABLES ROBERTA KENNEDYIUM documented in this encounter Visit Diagnoses Not on filedocumented in this encounter Care Teams Telegraph Repeater Mechanic Relationship Specialty Start Date End Date Randa Rosas APRN [address] [place] [address] PCP - General 12/29/12 04/16/22 documented as of this encounter
--- OUTSIDE RECORDS SUMMARY | 2024-11-18 17:02 | XMS_ITS | Encounter Summary ---
Author Organization [facility] Address [address] [place] [address] Care Team Providers Care Slurry Blender Name Role Phone Edward Montalvo MD Primary Care Provider [phone] [phone] Reason for Visit * (Routine) - Receiving Office to Obtain Authorization Specialty Diagnoses / Procedures [facility] Referred To Contact Procedures MR OUTSIDE IMAGES NEURO Unknown, Provider, MD Referral ID Status Reason Start Date Expiration Date Visits Requested Visits Authorized [id number] Receiving Office to Obtain Authorization 03/14/2020 1 1 Encounter Details Date Type Department Care Team (Latest Contact Info) Description 02/16/2020 - 02/16/2020 23:59 EDT Hospital Encounter [facility] Radiology - [address] [place] [address] [place] [address] Discharge Disposition: Home or Self Care Social History Tobacco Use Types Packs/Day Years Used Date Smoking Tobacco: Never Assessed Sex and Gender Information Value Date Recorded Sex Assigned at Not on file Legal Sex Male 18:03 EST Gender Identity Not on file Sexual Orientation Not on file documented as of this encounter Discharge Disposition Disposition Code Departure Means Destination Home or Self Care documented in this encounter Plan of Treatment Not on file documented as of this encounter Procedures Procedure Name Priority Date/Time Associated Diagnosis Comments MR OUTSIDE IMAGES NEURO Routine 03/14/2020 11:53 EDT documented in this encounter Results * MR OUTSIDE IMAGES NEURO (03/14/2020 11:53 EDT) Narrative LEYLA - 03/14/2020 11:53 EDT This is a non-reportable exam. us Physician Fa_General IMG OTHER IMAGING ORDERA BLES Final Result BRUCE documented in this encounter Visit Diagnoses Not on filedocumented in this encounter Care Teams Slurry Blender Relationship Specialty Start Date End Date Edward Montalvo MD PCP - General 10/21/15 documented as of this encounter
--- OUTSIDE RECORDS SUMMARY | 2024-11-18 17:02 | XMS_ITS | Encounter Summary ---
Author Organization [facility] Address [facility] [place] [address] Care Team Providers Care Hearing Impaired Teacher Name Role Phone Randa Rossa APRN Primary Care Provider +1- [phone] Encounter Details Date Type Department Care Team (Late st Contact Info) Description 01/04/2013 Abstract Radiation Oncology at [address] [phone] Nuria Preston, RN Social History Tobacco Use Types Packs/Day [...] on filedocumented in this encounter Care Teams Hearing Impaired Teacher Relationship Specialty Start Date End Date Randa Rosas APRN [address] [place] [phone] PCP - General 12/29/12 04/16/22 documented as of this encounter
--- OUTSIDE RECORDS SUMMARY | 2024-11-18 17:02 | XMS_ITS | Encounter Summary ---
Author Organization [facility] Address [facility] [place] [address] Care Team Providers Care Synthetic Plasterer Name Role Phone Randa Rosas VALENTIN Primary Care Provider +1- [phone] Reason for Visit * Reason Comments Rectal Cancer Encounter Details Date Type Department Care Team (Late st Contact Info) Description 01/18/2013 9:30 AM EST Follow-Up Hematology Oncology at [address] [phone] Nas Dobbs MD Rectal cancer (Primary Dx) [...] Sign Reading Time Taken Comments Blood Pressure 123/80 01/18/2013 9:27 AM EST Pulse 90 01/18/2013 9:27 AM EST Temperature 36.9 ??C (98.4 ??F) 01/18/2013 9:27 AM ES T Respiratory Rate 18 01/18/2013 9:27 AM EST Oxygen Saturation 100% 01/18/2013 9:27 AM EST Inhaled Oxygen Concentration - - Weight 111.8 kg (246 lb 8 oz) 01/18/2013 9:27 AM EST Height 169 cm (5' 6.54) 01/18/2013 9:27 AM EST Body Mass Index 39.15 01/18/2013 9:27 AM EST documented in this encounter Progress Notes * Nas Dobbs MD - 01/18/2013 9:56 AM EST Diagnosis: Invasive adenocarcinoma of the [...] be excluded. Subjective: Reg is here today to start his neoadjuvant concurrent chemoradiation therapy in the treatment of his locally advanced rectal cancer. Unfortunately MRI staging of the pelvis shows the tumor to be a bit more extensive locally and it is highly likely that a permanent colostomy will be required. The patient has a good understanding of the situation and is accepting of that. He notes him and his wifehad a long week discussing things and have come to some resolution of their fears and concerns. 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 We again went over risks and side effects of treatment including the 1% of patients with DPD deficiency that react badly to 5-fluorouracil. He has a good understanding of the chemotherapy involved the risks potential benefits and the reason for treatment. He does as informed consent for treatment. He tells me he is off most of his diabetes medicines but his sugars have been doing reasonably well. The goal is to keep him below 300 while on treatment. He is having a little bit of rectal pain butit's tolerable. He is scheduled to get lab prior to initiating pump therapy today which will include a CBC CMP and CEA for baseline Review of Systems Constitutional: Negative for fever, [...] low rectal cancer. With the current evaluation he appears to have a T3 or T4 lesion thatis quite low in the rectum. Because of that he will more than likely need a permanent colostomy after resection. He is ready to start his neoadjuvant chemotherapy today we will also begin his radiation therapy. Plans will be to see him weekly while on treatment at the time of his pump change and plan on infusional 5-fluorouracil 225 mg per meter square per day IV infusion throughout the entire course of radiation therapy. We discussed the possibility of adjuvant chemotherapy with FOLFOX. Considering his initial staging I think if his performance status and clinical status allows after surgerywe would certainly consider this. We'll see him next week with a CBC and CMP for week 2 of infusional therapy. He'll let us know if problems or questions arise in the interim. documented in this encounter Procedure Notes * Provider, Scanning - 01/19/2013 11:05 AM ESTAssociated Order(s): SCAN DOC: LAB documented in this encounter Miscellaneous Notes * Miscellaneous - Provider, Scanning - 01/24/2013 5:41 PM EST documented in this encounter Plan of Treatment Not on file documented as of this encounter Procedures Procedure Name Priority Date/Time Associated Diagnosis Comments LAB SCAN 01/19/2013 11:05 AM EST documented in this encounter Results * SCAN DOC: LAB (01/19/2013 11:05 AM EST) Narrative Transcriptions Provider, Scanning - 01/19/2013 11:05 AM EST Scanning Provider MEDIA MGR SCAN EXT O RDR/RSLT documented in this encounter Visit Diagnoses Diagnosis Rectal cancer- Primary Malignant neoplasm of rectum documented in this encounter Care Teams Synthetic Plasterer Relationship Specialty Start Date End Date Randa Rosas APRN [address] [place] [address] PCP - General 12/29/12 04/16/22 documented as of this encounter
--- OUTSIDE RECORDS SUMMARY | 2024-11-18 17:02 | XMS_ITS | Encounter Summary ---
Author Organization [facility] [place] [address] Care Team Providers Care Tanbark Peeler Name Role Phone Randa Rosas APRN Primary Care Provider [phone]- [phone] Encounter Details Date Type Department Care Team (Late st Contact Info) Description 01/06/2013 External Results [place] [phone] Provider, Scanning Social History Tobacco Use Types Packs/Day Years [...] Priority Date/Time Associated Diagnosis Comments SURGICAL PATHOLOGY SCAN Routine 01/06/2013 documented in this encounter Results * Scan Doc: Surgical Pathology (01/06/2013) Nas Dobbs MD MEDIA MGR SCAN EXT O RDR/RSLT documented in this encounter Visit Diagnoses Not on filedocumented in this encounter Care Teams Tanbark Peeler Relationship Specialty Start Date End Date Randa Rosas APRN [address] [place] [phone] PCP - General 12/29/12 04/16/22 documented as of this encounter
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
== END 2024-11-18 16:51 | disposition home or self-care (01) ==
LOC: LBN 16:50
PROVIDERS: PCP Specialist/Technologist Athletic Trainer; Visit Provider Otolaryngology Otolaryngology/Facial Plastic Surgery
DX: Q99.1 46, XX true hermaphrodite (principal); J33.9 Nasal polyp, unspecified; L81.9 Disorder of pigmentation, unspecified; C43.39 Malignant melanoma of other parts of face
CPT/HCPCS: 88305